=== PATIENT | male | born 1940 | race Two or more races ===

== ENCOUNTER 2024-11-27 04:43 | Emergency (ER) | payer MEDICAID, SELFPAY ==
[2024-11-27] VITALS (12 sets, daily range): BP systolic 116–141; BP diastolic 74–101; PULSE 70–146; RESP 18–38; TEMP 36.3–38.4; O2SAT 92–100; BMI 25.0
--- NOTE | 2024-11-27 05:08 | PD.EDRME ---
Rapid Medical Screening Exam RME Arrival date/time: 11/27/24 04:43 Chief Complaint: Shortness of Breath/Dyspnea Time Seen by Provider: 11/27/24 05:08 Vital signs: Vitals are pending RME Narrative: 84-year-old male with history of high cholesterol,, history of CVA, atrial fibrillation, hypertension, selective treatment, diabetes, presenting from subacute with difficulty breathing for the last 6 to 8 hours. Per respiratory therapist patient was placed by blow-by earlier. Patient currently has a fever by report. Patient is a DNR
[2024-11-27 05:21] LABS: Lactate (Lactic Acid) 2.1 mMol/L (0.4-2.0)
[2024-11-27] MEDS: ACETAMINOPHEN SUPP 650 MG SUPP PR (05:22)
[2024-11-27 05:23] LABS: Basophils % (Auto) 0 % (0-2.5); Eosinophils # (Auto) 0.1 Thou/mm3 (0.0-0.5); Eosinophils % (Auto) 1 % (0-10); Hematocrit 41.9 % (41.0-53.0); Hemoglobin 14.1 g/dL (13.5-16.0); Immature Granulocytes % (Auto) 0 % (0-0); Immature Granulocytes Auto 0.02 Thou/mm3 (0.00-0.00); Lymphocytes # (Auto) 1.3 Thou/mm3 (1.0-4.8); Lymphocytes % (Auto) 12 % (10-50); Mean Corpuscular HGB Conc 33.7 g/dl (31.0-37.0); Mean Corpuscular Hemoglobin 29.7 pg (25.0-35.0); Mean Corpuscular Volume 88 fL (80-100); Monocytes # (Auto) 0.7 Thou/mm3 (0.0-0.8); Monocytes % (Auto) 7 % (0-12); Neutrophils # (Auto) 8.9 Thou/mm3 (1.8-7.7); Neutrophils % (Auto) 81 % (37-80); Nucleated Red Blood Cell % 0 /100 WBC (0); Platelet Count 155 Thou/mm3 (140-440); RDW Standard Deviation 54.8 fL (35.1-43.9); Red Blood Count 4.74 Miln/mm3 (4.50-5.90); White Blood Count 11.1 Thou/mm3 (3.8-10.6)
[2024-11-27 05:37] LABS: INR 1.1 (0.9-1.3); Partial Thromboplastin Time 29.7 Seconds (22.0-36.0); Prothrombin Time 11.9 Seconds (9.0-12.2)
[2024-11-27 05:40] LABS: B-Type Natriuretic Peptide 157 pg/mL (0-100)
[2024-11-27 05:48] LABS: Alanine Aminotransferase 19 U/L (10-49); Albumin, Serum 4.1 gm/dL (3.4-4.8); Albumin/Globulin Ratio 1.1 (1.2-2.2); Alkaline Phosphatase 143 U/L (46-116); Anion Gap 7 (7-16); Aspartate Amino Transferase 25 U/L (0-34); BUN/Creatinine Ratio 22 Ratio (12-20); Bilirubin,Total 1.7 mg/dL (0.3-1.2); Blood Urea Nitrogen 13 mg/dL (9-23); Carbon Dioxide 27.3 mMol/L (20.0-31.0); Chloride 100 mMol/L (98-107); Creatinine (Component) 0.6 mg/dL (0.6-1.3); Estimated Creatinine Clearance 85.7 mL/min (>60); Globulin 3.9 gm/dL (2.3-3.5); Glucose 164 mg/dL (74-106); LDH (Lactate Dehydrogenase) 233 U/L (120-246); Lipase 31 U/L (12-53); Magnesium 1.8 mg/dL (1.6-2.6); Osmolality,Calculated 272 (275-295); Phosphorous 3.8 mg/dL (2.4-5.1); Potassium 4.6 mMol/L (3.4-5.1); Procalcitonin 0.05 ng/ml (0.0-0.49); Sodium 134 mMol/L (136-145); Troponin I < 0.020 ng/mL (0.0-0.045); eGFR > 60 See Note
[2024-11-27] MEDS: PIPER/TAZO 3.375 GM PREMIX 3.375 GM/50 ML BAG IV (05:52)
[2024-11-27] MEDS: Vancomycin Inj 1,000 MG in SODIUM CHLORIDE 0.9% 250 ML 250 ML 150 MG IV (06:06)
[2024-11-27 08:16] LABS: Collection Type, Urine Clean Catch
[2024-11-27 08:19] LABS: Reflex Lactate? Y
[2024-11-27 08:28] LABS: Bilirubin,Urine Negative (Negative); Blood,Urine 1+ (Negative); Clarity,Urine Clear (Clear/Hazy); Color,Urine Lt-Yellow (Lt Yel-Yel); Glucose, Urine Negative (Negative); Ketones,Urine Negative (Negative); Leukocyte Esterase,Urine Negative (Negative); Nitrite,Urine Negative (Negative); PH,Urine 6.5 (5.0-7.0); Protein,Urine Negative (Neg - Trace); RBC,Urine 3 /hpf (0-3); Specific Gravity,Urine 1.012 (1.001-1.035); Squamous Epithelial Cell,Urine 1 /hpf (0-5); Urobilinogen,Urine Negative mg/dL (0.0-1.0); WBC,Urine 2 /hpf (0-5)
[2024-11-27 08:43] LABS: Lactic Acid, 3 HR 2.8 mMol/L (0.4-2.0)
--- NOTE | 2024-11-27 08:58 | PD.EDSOB ---
ED SOB =RME/HPI General Chief Complaint: Shortness of Breath/Dyspnea Stated Complaint: SOB Time Seen by Provider: 11/27/24 05:08 Arrival date/time: 11/27/24 04:43 RME / HPI RME / HPI Narrative: 84-year-old male with history of high cholesterol,, history of CVA, atrial fibrillation, hypertension, selective treatment, diabetes, presenting from subacute with difficulty breathing for the last 6 to 8 hours. Per respiratory therapist patient was placed by blow-by earlier. Patient currently has a fever by report. Patient is a DNR DR. CORUTNEY MAIN ED EVALUATION: 84 year old male with past medical history significant for atrial fibrillation, tracheostomy in place, CVA, persistent vegetative state, hypertension, hypercholesterolemia, diabetes presents to the Emergency Department coming from out subacute unit for shortness of breath Patient has been given a few breathing treatments with little relief. Initially no the blow by and now on the ventilator. Code Status: DNR, selective treatment Related Data Home Medications ?Medication ?Instructions ?Recorded ?Confirmed acetaminophen 325 mg capsule 650 mg feeding tube Q6HR PRN Pain 08/11/20 08/12/20 (Tylenol) atorvastatin 40 mg tablet (Lipitor) 40 mg feeding tube QDAY 08/11/20 08/12/20 bisacodyl 10 mg rectal suppository 10 mg MS Q72H PRN Constipation 08/11/20 08/12/20 (Dulcolax (bisacodyl)) carvedilol 3.125 mg tablet (Coreg) 3.125 mg feeding tube BID 08/11/20 08/12/20 cyanocobalamin (vitamin B-12) 1,000 mcg feeding tube QDAY 08/11/20 08/12/20 1,000 mcg tablet (Vitamin B-12) dexlansoprazole 30 mg 30 mg feeding tube QDAY 08/11/20 08/12/20 capsule,biphase delayed release (Dexilant) insulin glargine 100 unit/mL 30 unit subcut HS 08/11/20 08/12/20 subcutaneous solution (Lantus U-100 Insulin) polyethylene glycol 3350 17 gram 17 g feeding tube QDAY PRN 08/11/20 08/12/20 oral powder packet (Miralax) Constipation magnesium hydroxide 400 mg/5 mL 30 ml feeding tube Q48H PRN 08/12/20 08/12/20 oral suspension (Milk of Magnesia) Constipation multivitamin with minerals 1 tab PO QDAY 08/12/20 08/12/20 sodium phosphates 19 gram-7 118 ml MS Q72H PRN constipation 08/12/20 08/12/20 gram/118 mL enema (Fleet Enema) Previous Rx's ?Medication ?Instructions ?Recorded levofloxacin 750 mg tablet 750 mg PO Q24H #10 tabs 08/13/20 levofloxacin 750 mg tablet 750 mg PO Q24H #7 tabs 11/27/24 Allergies Allergy/AdvReac Type Severity Reaction Status Date / Time No Known Allergies Allergy Verified 01/02/19 14:22 Review of Systems Review of Systems ROS Unobtainable: unobtainable due to medical condition Past Medical History Past Medical History NEUROLOGIC: Positive Cerebrovascular Accident CARDIAC: Positive Cardiac Disorders, Atrial Fibrillation and Hypercholesterolemia; Negative Congestive Heart Failure RESPIRATORY: Positive Pneumonia; Negative Chronic Obstructive Pulmonary Disease (COPD) GENITOURINARY: Negative Renal Disease ENDOCRINE: Positive Endocrine Disorders and Diabetes Mellitus Type 2; Negative Diabetes Mellitus Type 1 OTHER HISTORY: Negative Autoimmune Disease Family History FAMILY HISTORY: Negative Family Psychiatric Problems, Family Respiratory Disorders, Family Gastrointestinal Problems, Family Cancer, Family Surgery or Family Anesthesia Reaction Surgical History SURGICAL: Positive Abdominal Surgery, Tracheostomy and Gastrostomy Social History SMOKING STATUS: Never smoker SECOND HAND EXPOSURE: No SUBSTANCE USE: does not use ALCOHOL: Never ED Exam Narrative Physical exam: GENERAL APPEARANCE: at baseline, opens eyes to stimulus, mild diaphoresis, chronically nonverbal VITALS: All vitals were reviewed and the pulse ox is 100% on mechanical ventilation. HEENT: Normocephalic, atraumatic; pupils equal, round, reactive to light; EOMI; mucous membranes pink, moist; oropharynx clear NECK: tacheostomy LUNGS: there is mild wheezing in the left base, crackles in the right upper lobe HEART: Regular rate, regular rhythm; normal S1, S2; no murmurs ABDOMEN: non distended; normal BS; soft, no tenderness, no guarding, no rebound; no masses, no organomegaly, no hernia BACK: no deformities EXTREMITIES: Spastic contractures of extremities NEUROLOGIC: at baseline PSYCHIATRIC: at baseline SKIN: warm, dry, normal color; no rashes Course Quality Measures none Orders Category Date Time Status Mending Carrier STAT Care 11/27/24 05:00 Completed Continuous Pulse Oximetry STAT Care 11/27/24 05:00 Completed EKG (ED ONLY) *Do not use* NOW Care 11/27/24 05:00 Completed In and Out Catheter X1PRN Care 11/27/24 05:00 Completed Insert IV NOW Care 11/27/24 05:00 Completed NPO STAT Care 11/27/24 05:00 Completed Strict Intake and Output Routine Care 11/27/24 05:00 Ordered EKG (ED Only) Stat Exams 11/27/24 05:00 Ordered B-Type Natriuretic Peptide Stat Lab 11/27/24 05:15 Completed Blood Culture (Lab) Stat Lab 11/27/24 05:25 Received CBC Stat Lab 11/27/24 05:15 Completed Comprehensive Metabolic Panel Stat Lab 11/27/24 05:15 Completed LDH (Lactate Dehydrogenase) Stat Lab 11/27/24 05:15 Completed Lactate (Lactic Acid) Stat Lab 11/27/24 05:15 Completed Lactic Acid, 3 HR Stat Lab 11/27/24 08:40 Completed Lipase Stat Lab 11/27/24 05:15 Completed Magnesium Stat Lab 11/27/24 05:15 Completed Partial Thromboplastin Time Stat Lab 11/27/24 05:15 Completed Phosphorous Stat Lab 11/27/24 05:15 Completed Procalcitonin Stat Lab 11/27/24 05:15 Completed Prothrombin Time with INR Stat Lab 11/27/24 05:15 Completed Troponin I Stat Lab 11/27/24 05:15 Completed Urinalysis Stat Lab 11/27/24 07:50 Completed Urine Culture Stat Lab 11/27/24 07:50 Received Acetaminophen Supp [Tylenol Supp] Med 11/27/24 05:01 Discontinued 650 mg MS X1 ONE Piper/Tazo 3.375 gm Premix [Zosyn] Med 11/27/24 05:11 Discontinued 3.375 gm in 50 ml IV X1 Sodium Chloride 0.9% 1000 ml [Ns] 1,000 ml Med 11/27/24 10:15 Discontinued IV 999 mls/hr Sodium Chloride 0.9% 1000 ml [Ns] 2,177 ml Med 11/27/24 05:27 Discontinued IV 2,177 mls/hr Vancomycin Inj 1,000 mg Med 11/27/24 05:40 Discontinued Sodium Chloride 0.9% 250 ml [Ns] 250 ml IV X1 Mechanical [Volume Ventilator] Stat RT 11/27/24 Active Oxygen Delivery NOW RT 11/27/24 05:00 Completed Vital Signs Vital signs: Vital Signs Pulse Rate 133 H 11/27/24 04:53 Pulse Oximetry (%) 99 11/27/24 04:53 Fraction of Inspired Oxygen 40 11/27/24 04:53 Shortness of Breath / Dyspnea MDM Narrative MDM Narrative:: I, Teetee Tyler, am scribing for and in the presence of Dr. Courtney. Patient data External records reviewed:: [facility] previous records (Reviewed last pulmonology subacute note by Dr. Ramires, dated 11/20/24. ) Clinical information provided by:: other (specify) (subacute nurse) Social determinants that could affect healthcare access:: housing (subacute) Patient has the following chronic illnesses:: Atrial fibrillation, tracheostomy in place, CVA, persistent vegetative state, hypertension, hypercholesterolemia, diabetes Code Status: DNR, selective treatment How is presenting disease/condition affected by chronic disease/condition?: exacerbated by Evaluation data The following diagnostics were reviewed and interpreted by me:: lab results, radiology exam(s) and EKG tracing(s) (EKG#1: EKG at 0448 hours. Interpreted by me: atrial fibrillation, rate 121, Q waves in lead 3 and V1, no acute ischemic changes) Lab and/or radiology exams considered but not ordered:: none Interpretation Summary: Chest x-ray: my interpretation shows: right upper lobe infiltrates Full report: Procedure(s): XR chest 1V portable Accession Number(s): [id number] cc: Shahbaz Grnat MD; NO PRIMARY/FAMILY,PHYSICIAN; Channing Simeon MD~ Examination: AP chest single view Technique one AP portable semiupright chest single view Exam date and time: November 27, 2024 0240 hours Comparison September 18, 2024 INDICATIONS: Bloody breathing this week. FINDINGS: Interval significant left base pneumonia Mild enlargement cardiac contour Mild vascular congestion. Tracheostomy tube tip 6.7 cm above carlo IMPRESSION: Interval significant left base pneumonia Dictated By: Shahbaz Grant MD Medications / Prescriptions Medications or Prescriptions considered but not ordered:: none Medication administrations:: Medication Administration History Discontinued Medications Acetaminophen (Acetaminophen Supp 650 Mg Supp) 650 mg MS X1 ONE Stop: 11/27/24 05:02 Last Admin: 11/27/24 05:22 Dose: 650 mg Documented By: EF Piperacillin/Tazobactam/Dextrose (Zosyn) 3.375 gm in 50 mls @ 100 mls/hr IV X1 ONE Stop: 11/27/24 05:40 Last Infusion: 11/27/24 06:22 Dose: Infused Documented By: Admin: 11/27/24 05:52 Dose: 100 mls/hr Documented By: EF Vancomycin HCl 1,000 mg/ (Sodium Chloride) 250 mls @ 150 mls/hr IV X1 ONE Stop: 11/27/24 07:19 Last Infusion: 11/27/24 07:50 Dose: Infused Documented By: Admin: 11/27/24 06:06 Dose: 150 mls/hr Documented By: EF Sodium Chloride (Ns) 2,177 mls @ 2,177 mls/hr 30 ml/kg infuse over 60 min (2177 ml) IV .Q1H ONE; Protocol Stop: 11/27/24 06:26 Last Infusion: 11/27/24 06:53 Dose: Infused Documented By: Admin: 11/27/24 05:53 Dose: 2,177 mls/hr Documented By: EF Sodium Chloride (Ns) 1,000 mls @ 999 mls/hr IV .Q1H1M ONE Stop: 11/27/24 11:15 Last Admin: 11/27/24 10:25 Dose: Not Given Documented By: GM Non-Admin Reason: Discontinued see above Consultations Consultation(s) initiated? (list below): No Diagnosis Shortness of Breath Differential Diagnosis: acute exacerbation of chronic obstructive airways disease, community acquired pneumonia and asthma with exacerbation Most likely diagnosis given after review of the tests above:: Pneumonia Sepsis Admission Indicated Admission indicated?: not indicated Admission Request Was there a request for admission?: No Disposition Plan Disposition Plan: Discharge (subacute) Discharge Attestation Discharge Attestation: The patient and all family members were given an opportunity to ask questions and understood the discharge instructions. Discharge instructions specifically effects, indications for sooner follow up or return to the emergency department, and the expected course of current diagnosis. Patient condition: Stable Discharge Plan Plan Patient Disposition: Xfer Rfid Manager Acute Prescriptions/Referrals Prescriptions/Med Rec: New levofloxacin 750 mg tablet 750 mg PO Q24H Qty: 7 0RF No Action carvedilol [Coreg] 3.125 mg Tablet 3.125 mg feeding tube BID atorvastatin [Lipitor] 40 mg Tablet 40 mg feeding tube QDAY Lantus U-100 Insulin 100 unit/mL Solution 30 unit SUBCUT HS Rx Instructions: 2200 cyanocobalamin (vitamin B-12) [Vitamin B-12] 1,000 mcg Tablet 1,000 mcg feeding tube QDAY bisacodyl [Dulcolax (bisacodyl)] 10 mg Suppository 10 mg MS Q72H PRN (Reason: Constipation) Dexilant 30 mg Capsule,Biphase Delayed Releas 30 mg feeding tube QDAY polyethylene glycol 3350 [Miralax] 17 gram Powder In Packet 17 g feeding tube QDAY PRN (Reason: Constipation) acetaminophen [Tylenol] 325 mg Capsule 650 mg feeding tube Q6HR PRN (Reason: Pain) magnesium hydroxide [Milk of Magnesia] 400 mg/5 mL Suspension 30 ml feeding tube Q48H PRN (Reason: Constipation) Fleet Enema 19-7 gram/118 mL Enema 118 ml MS Q72H PRN (Reason: constipation ) multivitamin with minerals Tablet 1 tab PO QDAY levofloxacin 750 mg tablet 750 mg PO Q24H Qty: 10 0RF Referrals: No Primary/Family,Physician [Primary Care Provider] - In 1 week Problem List Clinical Impression: Pneumonia, Sepsis Patient/Caregiver Discharge Instructions Education Materials: Sepsis, ED Pneumonia (Adult) Print Language: Armenian Stand Alone Forms: Melanie Award Info., Patient Portal Info Letter
== END 2024-11-27 11:11 ==
PROVIDERS: Emergency Medicine; Emergency Provider Emergency Medicine
DX: A41.9 Sepsis, unspecified organism (principal); J18.9 Pneumonia, unspecified organism; Z66 Do not resuscitate; Z93.0 Tracheostomy status; I10 Essential (primary) hypertension; E78.00 Pure hypercholesterolemia, unspecified; E11.9 Type 2 diabetes mellitus without complications; Z79.4 Long term (current) use of insulin
CPT/HCPCS: 51701; 36415; 80053; 81001; 83605; 83615; 83690; 83735; 83880; 84100; 84145; 84484; 85025; 85610; 85730; 87040; 87077; 87086; 87186; 96365; 96367; 99284; J2543; J3371; J7030; J7050; A9270

== ENCOUNTER 2024-12-08 10:59 | Inpatient (IN) | payer MEDICAID, SELFPAY ==
[2024-12-08] VITALS (85 sets, daily range): BP systolic 65–197; BP diastolic 46–128; PULSE 67–124; RESP 16–43; TEMP 36.3–37.9; O2SAT 72–100; BMI 24.0
--- NOTE | 2024-12-08 11:06 | EKG_ITS ---
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
--- NOTE | 2024-12-08 11:08 | XR_ITS ---
Exam: Chest 1 view, AP Date and time of exam: 12/08/2024, 11:34 AM Comparison: 11/27/2024, 12/08/2024 Findings: Cardiac silhouette remains enlarged. Chronic interstitial fibrotic changes. Ill-defined opacification left lung base with mild interval worsening since November 27, 2024. Increased opacification medial upper right zone. No pneumothorax. No acute bony abnormality. Impression: Increased left lower zone infiltrate. Increased right upper zone infiltrate.
--- NOTE | 2024-12-08 11:08 | XR_ITS ---
Examination: CT brain head without contrast. 2-D sagittal coronal reconstructions Date and time of exam:51.04 CTDI: vol (mGy):51.4 DLP: (mGycm):1116 Acute loss of consciousness. Technique: Multiple CT axial sections of the brain have been obtained, 5 mm slice thickness. Contrast has not been administered. 2-D sagittal, coronal reconstructions have been obtained Low dose protocols were performed. One or more of the following dose reduction techniques were used; automated exposure control, adjustment of the mA and/or KV according to patient size, use of iterative reconstruction technique. Findings: Marked cortical atrophy and associated ventricular and extra-axial enlargement. Diffuse right-sided encephalomalacia with progression when compared to prior exam.. Diffuse left-sided periventricular white matter changes consistent with small vessel disease stable when compared to prior exam. No acute hemorrhage. No mass, mass effect or midline shift. Basilar cisterns are patent. Near-complete opacification left maxillary sinus. Negative for acute hemorrhage, mass effect or midline shift. Impression: No acute hemorrhage, mass, mass effect or midline shift. Changes of right-sided infarct. Diffuse cortical atrophy. With mild
--- NOTE | 2024-12-08 11:10 | PD.EDSOB ---
ED SOB =RME/HPI General Chief Complaint: Shortness of Breath/Dyspnea Stated Complaint: SOB Time Seen by Provider: 12/08/24 11:08 Arrival date/time: 12/08/24 10:59 RME / HPI RME / HPI Narrative: 84 year old male with history of atrial fibrillation, tracheostomy, CVA, persistent vegetative state, nonverbal, hypertension, hypercholesterolemia, diabetes presents to the ED brought from the subacute unit within this facility for shortness of breath today. Per subacute staff, patient appeared to have increased work of breathing. Per RT at bedside, the vent settings were adjusted and is saturating 99%. Subacute RN reports they have made patients PCP Dr. Ramires who advised he come for further evaluation. Related Data Home Medications ?Medication ?Instructions ?Recorded ?Confirmed acetaminophen 325 mg capsule 650 mg feeding tube Q6HR PRN Pain 08/11/20 08/12/20 (Tylenol) atorvastatin 40 mg tablet (Lipitor) 40 mg feeding tube QDAY 08/11/20 08/12/20 bisacodyl 10 mg rectal suppository 10 mg TX Q72H PRN Constipation 08/11/20 08/12/20 (Dulcolax (bisacodyl)) carvedilol 3.125 mg tablet (Coreg) 3.125 mg feeding tube BID 08/11/20 08/12/20 cyanocobalamin (vitamin B-12) 1,000 mcg feeding tube QDAY 08/11/20 08/12/20 1,000 mcg tablet (Vitamin B-12) dexlansoprazole 30 mg 30 mg feeding tube QDAY 08/11/20 08/12/20 capsule,biphase delayed release (Dexilant) insulin glargine 100 unit/mL 30 unit subcut HS 08/11/20 08/12/20 subcutaneous solution (Lantus U-100 Insulin) polyethylene glycol 3350 17 gram 17 g feeding tube QDAY PRN 08/11/20 08/12/20 oral powder packet (Miralax) Constipation magnesium hydroxide 400 mg/5 mL 30 ml feeding tube Q48H PRN 08/12/20 08/12/20 oral suspension (Milk of Magnesia) Constipation multivitamin with minerals 1 tab PO QDAY 08/12/20 08/12/20 sodium phosphates 19 gram-7 118 ml TX Q72H PRN constipation 08/12/20 08/12/20 gram/118 mL enema (Fleet Enema) Previous Rx's ?Medication ?Instructions ?Recorded levofloxacin 750 mg tablet 750 mg PO Q24H #10 tabs 08/13/20 levofloxacin 750 mg tablet 750 mg PO Q24H #7 tabs 11/27/24 Allergies Allergy/AdvReac Type Severity Reaction Status Date / Time No Known Allergies Allergy Verified 01/02/19 14:22 Review of Systems Review of Systems ROS Unobtainable: unobtainable due to mental status and unobtainable due to medical condition Past Medical History Past Medical History NEUROLOGIC: Positive Cerebrovascular Accident CARDIAC: Positive Cardiac Disorders, Atrial Fibrillation and Hypercholesterolemia RESPIRATORY: Positive Pneumonia ENDOCRINE: Positive Endocrine Disorders and Diabetes Mellitus Type 2 Family History FAMILY HISTORY: Negative Family Psychiatric Problems, Family Respiratory Disorders, Family Gastrointestinal Problems, Family Cancer, Family Surgery or Family Anesthesia Reaction Surgical History SURGICAL: Positive Abdominal Surgery, Tracheostomy and Gastrostomy Social History SMOKING STATUS: Unknown if ever smoked SECOND HAND EXPOSURE: No SUBSTANCE USE: does not use ED Exam Narrative Physical exam: Physical Exam: General: The vital signs were reviewed. The patient was initially seen and subacute and brought over to the ER and placed in room 1 patient is non-toxic, patient is in obvious respiratory distress with O2 sats are low he is therefore hypoxic. Head & Scalp: Normocephalic, atraumatic. Face: Appears his usual normal and is without lesions, deformity. Ears: Left external pinna appears normal. Right external pinna appears normal. Eyes: The sclera is anicteric. No obvious photophobia. Puffy facies. The Left and Right Orbit/Lid/Conjunctiva appears normal without swelling, discoloration or injection. Nose: The nose is without deformity, discharge or tenderness; Throat: Appears normal. The mucous membranes are pink and moist without exudates, redness or mass seen. The tongue appears normal. Neck: Trach in place. The neck is supple and no apparent mass or adenopathy. Chest: Patient is tachypneic with labored breathing rate around 32 to 34 breath sounds are heard but distant. Cardiovascular: Regular rate and rhythm; No murmurs, rubs, or gallops; Gastrointestinal: The abdomen appears normal. No obvious hernias or mass. The abdomen is soft and benign, non-distended, with no pain, no guarding and no rebound tenderness. Bowel sounds are present and normal sounding. No CVA tenderness. Genitourinary: Back/Spine: Warm normal inspection Extremities/Musculoskeletal/lymphatic: Atrophic extremities no obvious injury Skin: The skin is warm, dry and intact. No rashes. No petechia. No purpura. No abnormal bruising. The color is appropriate with no cyanosis. Mental status/Psychiatric: Mental status is baseline for this patient. Neurological: The patient is nonverbal noninteractive due to previous stroke. Unable to respond to questions or follow directions. This is his baseline. Course Quality Measures Current suspected stage: sepsis Possible source: pulmonary Blood cultures ordered: completed in ED Antibiotic ordered: Yes Pertinent labs: 12/08/24 12/08/24 11:55 15:13 Lactic Acid 2.7 H mMol/L 1.6 mMol/L (0.4-2.0) (0.4-2.0) Procalcitonin 0.09 ng/ml (0.0-0.49) sepsis Orders Category Date Time Status Admit to Inpatient Status Routine Admission 12/08/24 14:16 Active Patient Condition Routine Admission 12/08/24 14:16 Ordered Activity as Tolerated Routine Care 12/08/24 14:18 Ordered Aspiration precautions ONCE Care 12/08/24 15:36 Active Bedside Blood Glucose NOW Care 12/08/24 11:08 Active Bedside COVID-19 Antigen Test NOW Care 12/08/24 16:35 Active Continuous Pulse Oximetry NOW Care 12/08/24 14:16 Completed EKG (ED ONLY) *Do not use* NOW Care 12/08/24 11:06 Completed Head of Bed Elevation NOW Care 12/08/24 14:29 Active In and Out Catheter X1 Care 12/08/24 12:40 Completed Insert IV NOW Care 12/08/24 12:28 Active Miscellaneous Nursing Order NOW Care 12/08/24 15:27 Active NPO NOW Care 12/08/24 14:29 Active Neuro Check Q4H START 00 Care 12/08/24 14:18 Active Notify provider NEEDED Care 12/08/24 14:16 Active Obtain weight daily Care 12/08/24 14:18 Active Seizure precautions NEEDED Care 12/08/24 14:18 Active Diet NPO (NOW) Diet 12/08/24 14:29 Active CA echo doppler complete Stat Exams 12/08/24 15:[address] head/brain wo con Stat Exams 12/08/24 11:08 Completed EKG (ED Only) Stat Exams 12/08/24 11:06 Draft XR chest 1V portable Stat Exams 12/08/24 11:08 Completed Alcohol, Blood Medical Stat Lab 12/08/24 11:55 Completed Ammonia Stat Lab 12/08/24 11:58 Completed B-Type Natriuretic Peptide Stat Lab 12/08/24 11:55 Completed Blood Culture (Lab) Stat Lab 12/08/24 11:58 Received CBC AM DRAW Lab 12/09/24 05:00 Ordered CBC AM DRAW Lab 12/10/24 05:00 Ordered CBC AM DRAW Lab 12/11/24 05:00 Ordered CBC Stat Lab 12/08/24 11:55 Completed Comprehensive Metabolic Panel AM DRAW Lab 12/09/24 05:00 Ordered Comprehensive Metabolic Panel AM DRAW Lab 12/10/24 05:00 Ordered Comprehensive Metabolic Panel AM DRAW Lab 12/11/24 05:00 Ordered Comprehensive Metabolic Panel Stat Lab 12/08/24 11:55 Completed Drug Screen,Urine Stat Lab 12/08/24 12:42 Completed Lactate (Lactic Acid) Stat Lab 12/08/24 11:55 Completed Lactic Acid, 3 HR Stat Lab 12/08/24 15:13 Completed Magnesium AM DRAW Lab 12/09/24 05:00 Ordered Magnesium AM DRAW Lab 12/10/24 05:00 Ordered Magnesium AM DRAW Lab 12/11/24 05:00 Ordered Phosphorous AM DRAW Lab 12/09/24 05:00 Ordered Phosphorous AM DRAW Lab 12/10/24 05:00 Ordered Phosphorous AM DRAW Lab 12/11/24 05:00 Ordered Procalcitonin Stat Lab 12/08/24 11:55 Completed Prothrombin Time with INR Stat Lab 12/08/24 11:55 Completed Sputum Culture and Gram Stain Stat Lab 12/08/24 16:47 Received Troponin I Q6H Lab 12/08/24 18:00 Ordered Troponin I Q6H Lab 12/09/24 00:00 Ordered Troponin I Stat Lab 12/08/24 11:55 Completed Type and Screen Stat Lab 12/08/24 11:55 Completed Urinalysis Stat Lab 12/08/24 12:42 Completed Urinalysis, C/S if Indicated Stat Lab 12/08/24 12:42 Completed Urine Culture Stat Lab 12/08/24 12:42 Received Venous Blood Gas Stat Lab 12/08/24 11:55 Completed Acetaminophen Tab [Tylenol Tab] Med 12/08/24 14:16 Active 650 mg PO Q6H PRN Albuterol/Ipratr Rt Emma [Duoneb Rt Emma] Med 12/08/24 15:00 Active 3 ml INH Q4HRRT Azithromycin Inj [Zithromax Inj] 500 mg Med 12/09/24 14:00 Pending Sodium Chloride 0.9% 250 ml [Ns] 250 ml IV QDAY@1400 Azithromycin Inj [Zithromax Inj] 500 mg Med 12/08/24 14:30 Discontinued Sodium Chloride 0.9% 250 ml [Ns] 250 ml IV X1 Cefepime Inj [Maxipime Inj] 2 gm Med 12/08/24 22:00 Active SODIUM CHLORIDE 0.9% (Popper) [Ns 0.9% (P)] 50 ml IV Q8HR Heparin Inj Med 12/08/24 22:00 Active 5,000 unit SC Q8HR Metoclopramide Inj [Reglan Inj] Med 12/08/24 14:16 Active 10 mg IVP Q6H PRN Piper/Tazo 3.375 gm Premix [Zosyn] Med 12/08/24 12:29 Discontinued 3.375 gm in 50 ml IV X1 Sodium Chloride 0.9% 1000 ml [Ns] 1,000 ml Med 12/08/24 14:30 Discontinued IV 75 mls/hr Sodium Chloride 0.9% 1000 ml [Ns] 2,000 ml Med 12/08/24 11:08 Discontinued IV 150 mls/hr Sodium Chloride 0.9% 500 ml [Ns] 500 ml Med 12/08/24 16:15 Discontinued IV 999 mls/hr Sodium Chloride Rt Emma 10% [NS Rt Emma 10%] Med 12/08/24 15:51 Discontinued 5 ml INH X1 ONE Vancomycin Pharmacy to Dose Med 12/09/24 09:00 Active 1 each IV QDAY PRN Vancomycin/Ns 1 gm Ivpb 200 ml Med 12/08/24 12:45 Discontinued IV X1 Vancomycin/Water 1250 mg Ivpb 250 ml Med 12/08/24 22:00 Pending IV Q12H cefTRIAXone [Rocephin] 2 gm Med 12/08/24 14:30 Discontinued SODIUM CHLORIDE 0.9% (Popper) [Ns 0.9% (P)] 50 ml IV X1 cefTRIAXone/D5w 2gm [Rocephin/d5w 2gm] Med 12/09/24 14:00 Discontinued 2 gm in 50 ml IV QDAY@1400 Code Status Routine Oth 12/08/24 15:48 Ordered Sputum Induction PRN RT 12/08/24 16:00 Ordered Vital Signs Vital signs: Vital Signs Temperature 97.3 F 12/08/24 10:59 Pulse Rate 108 H 12/08/24 10:59 Respiratory Rate 32 H 12/08/24 10:59 Blood Pressure 113/63 12/08/24 10:59 Pulse Oximetry (%) 100 12/08/24 10:59 Oxygen Delivery Method T-Piece 12/08/24 10:59 Fraction of Inspired Oxygen 40 12/08/24 10:59 Shortness of Breath / Dyspnea MDM Narrative MDM Narrative:: We were called emergently over to subacute as this patient was in respiratory distress which started earlier this morning and getting worse. RT was present and they had suctioned multiple times with no real significant improvement. Because of this patient came to the ER for further workup. Chest x-ray reveals probably some right upper lobe infiltrates tracheostomy in place generalized vascular redistribution no consolidating pneumonia was seen as interpreted by myself. White count is 16.8 hemoglobin is 12.7 platelet count is 212,000. PT/INR within normal limits pH is low at 7.28 pCO2 is elevated at 58. Electrolytes are basically within normal limits. BUN 14 creatinine is 0.6 troponin is elevated 0.051. BNP slightly elevated at 347. Urinalysis came back essentially negative with 12 red cells and 2 white cells drug screen was negative. Patient had significant respiratory distress but 4 hours later in the ER his respiratory rate calm down. Because of he had multiple SIRS criteria a septic alert was called. He was given Vanco and Zosyn early. And clinically he was much improved at around 1530 hrs. Family was called I spoke with Colt earlier and the came spoke with her later. At that time the patient's respiratory distress was much improved his hypoxemia was improved making me wonder if he had an aspiration event. Hospitalist was called they came down and they will admit the patient. That the patient is trached has a G-tube he was suctioned multiple times with minimal content. Because of respiratory distress and debilitation and trach dependent but this was a critical care patient. Patient data External records reviewed:: [facility] previous records (I reviewed ED visit on 11/27/2024) Clinical information provided by:: other (specify) (RN) Social determinants that could affect healthcare access:: housing (subacute resident ) Patient has the following chronic illnesses:: atrial fibrillation, tracheostomy in place, CVA, persistent vegetative state, hypertension, hypercholesterolemia, diabetes How is presenting disease/condition affected by chronic disease/condition?: exacerbated by Evaluation data The following diagnostics were reviewed and interpreted by me:: lab results, radiology exam(s) and EKG tracing(s) (Atrial flutter with RVR, rate 100, no STEMI ) Lab and/or radiology exams considered but not ordered:: None Interpretation Summary: Ordering Physician: Gigi Beltran MD Date of Service: 12/08/24 Procedure(s): CT head/brain wo con Accession Number(s): [id number] cc: Roney Nair MD; Gigi Beltran MD; NO PRIMARY/FAMILY,PHYSICIAN~ Examination: CT brain head without contrast. 2-D sagittal coronal reconstructions Date and time of exam:51.04 CTDI: vol (mGy):51.4 DLP: (mGycm):1116 Acute loss of consciousness. Technique: Multiple CT axial sections of the brain have been obtained, 5 mm slice thickness. Contrast has not been administered. 2-D sagittal, coronal reconstructions have been obtained Low dose protocols were performed. One or more of the following dose reduction techniques were used; automated exposure control, adjustment of the mA and/or KV according to patient size, use of iterative reconstruction technique. Findings: Marked cortical atrophy and associated ventricular and extra-axial enlargement. Diffuse right-sided encephalomalacia with progression when compared to prior exam.. Diffuse left-sided periventricular white matter changes consistent with small vessel disease stable when compared to prior exam. No acute hemorrhage. No mass, mass effect or midline shift. Basilar cisterns are patent. Near-complete opacification left maxillary sinus. Negative for acute hemorrhage, mass effect or midline shift. Impression: No acute hemorrhage, mass, mass effect or midline shift. Changes of right-sided infarct. Diffuse cortical atrophy. With mild Dictated By: Roney Nair MD Signed By: <Electronically signed by Roney Nair MD in [place]> 12/08/24 1404 Ordering Physician: Gigi Beltran MD Date of Service: 12/08/24 Procedure(s): XR chest 1V portable Accession Number(s): [id number] cc: Roney Nair MD; Mike Madrid MD; Gigi Beltran MD~ Exam: Chest 1 view, AP Date and time of exam: 12/08/2024, 10:16 AM Comparison: 10/15/2023 INDICATION: Cough COMPARISON: 10/15/2023 Findings: Heart size and pulmonary vascular structures within normal limits. Ill-defined areas of opacification medial right lower zone. Remaining lung zones are clear. No pneumothorax. No pleural effusion. No acute bony abnormality. Impression: Right lower zone infiltrate. Dictated By: Roney Nair MD Signed By: <Electronically signed by Roney Nair MD in [place]> 12/08/24 1105 Medications / Prescriptions Medications or Prescriptions considered but not ordered:: None Medication administrations:: Medication Administration History Acetaminophen (Acetaminophen 325 Mg Tablet) 650 mg PO Q6H PRN PRN Reason: Fever >101.5 Stop: 01/07/25 14:15 Albuterol/Ipratropium (Albuterol/Ipratropium (Duoneb) Rt Emma 3 Ml Nebu) 3 ml INH Q4HRRT KURT Stop: 01/07/25 14:59 Last Admin: 12/08/24 15:07 Dose: 3 ml Documented By: LEONEL Heparin Sodium (Porcine) (Heparin Sod Inj 5000 Unit/Ml Vial) 5,000 unit SC Q8HR KURT Stop: 12/22/24 21:59 Azithromycin 500 mg/ Sodium (Chloride) 250 mls @ 250 mls/hr IV QDAY@1400 [facility] Stop: 12/16/24 13:59 Vancomycin HCl (Vancomycin/Water 1250 Mg Ivpb) 250 mls @ 120 mls/hr IV Q12H KURT Stop: 12/15/24 21:59 Cefepime HCl 2 gm/ Sodium (Chloride) 50 mls @ 100 mls/hr IV Q8HR KURT Stop: 12/15/24 21:59 Metoclopramide HCl (Metoclopramide Inj 5 Mg/Ml Vial 2 Ml) 10 mg IVP Q6H PRN; Protocol PRN Reason: NAUSEA OR VOMITING Stop: 01/07/25 14:15 Pharmacy Consult (Vancomycin Pharmacy To Dose 1 Each Each) 1 each IV QDAY PRN PRN Reason: PROTOCOL Stop: 01/08/25 08:59 Discontinued Medications Sodium Chloride (Ns) 2,000 mls @ 150 mls/hr IV .[id number] ONE Stop: 12/09/24 00:27 Last Admin: 12/08/24 12:33 Dose: 150 mls/hr Documented By: LEELA Piperacillin/Tazobactam/Dextrose (Zosyn) 3.375 gm in 50 mls @ 100 mls/hr IV X1 ONE Stop: 12/08/24 12:58 Last Infusion: 12/08/24 14:45 Dose: Infused Documented By: Admin: 12/08/24 14:19 Dose: 100 mls/hr Documented By: LEELA Vancomycin/Sodium Chloride (Vancomycin/Ns 1 Gm Ivpb) 200 mls @ 120 mls/hr IV X1 ONE Stop: 12/08/24 14:24 Last Infusion: 12/08/24 16:33 Dose: Infused Documented By: Admin: 12/08/24 14:45 Dose: 120 mls/hr Documented By: LEELA Sodium Chloride (Ns) 1,000 mls @ 75 mls/hr IV .[id number] KURT Stop: 01/07/25 14:29 Ceftriaxone Sodium/Dextrose (Rocephin/D5w 2gm) 2 gm in 50 mls @ 100 mls/hr IV QDAY@1400 KURT Stop: 12/16/24 13:59 Azithromycin 500 mg/ Sodium (Chloride) 250 mls @ 250 mls/hr IV X1 ONE Stop: 12/08/24 15:29 Ceftriaxone Sodium 2 gm/ (Sodium Chloride) 50 mls @ 100 mls/hr IV X1 ONE Stop: 12/08/24 14:59 Last Admin: 12/08/24 16:30 Dose: 100 mls/hr Documented By: LEELA Sodium Chloride (Ns) 500 mls @ 999 mls/hr IV .Q31M ONE Stop: 12/08/24 16:45 Last Admin: 12/08/24 16:25 Dose: 999 mls/hr Documented By: LEELA Sodium Chloride (Sodium Chloride Rt 10% 15 Ml Nebu) 5 ml INH X1 ONE Stop: 12/08/24 15:52 Last Admin: 12/08/24 16:37 Dose: 5 ml Documented By: LEONEL See above Consultations Consultation(s) initiated? (list below): Yes Consultation #1 (Physician, Specialty, Details): I spoke with hospitalist Dr. Currie regarding admission. Discussed patients PMHx, HPI, ED course, exam findings, labs, and radiology results. Diagnosis Shortness of Breath Differential Diagnosis: acute exacerbation of chronic obstructive airways disease, congestive heart failure, community acquired pneumonia, asthma with exacerbation and pulmonary embolism Most likely diagnosis given after review of the tests above:: Acute respiratory distress Tracheostomy status Hypoxemia Pneumonia SIRS Acute respiratory acidosis Hypercapnia Admission Indicated Admission indicated?: indicated Admission Request Was there a request for admission?: Yes Admission Attestation Admission request attestation: Discussed case with [] from Hospitalist service regarding admission. Discussed patients ED course, exam findings, labs, and radiology results. The Hospitalist [agrees,declines] to accept the patient for admission. Disposition Plan Disposition Plan: Admit Critical Care Time Critical Care Time Critical Care Time: Yes Total Critical Care Time (min.): 45 Attestation: The high probability of sudden, clinically significant deterioration in the patient's condition required the highest level of my preparedness to intervene urgently. The services I provided to this patient were to treat and/or prevent clinically significant deterioration. Services included the following: chart data review, reviewing nursing notes and/or old charts, documentation time, business systems consultant collaboration regarding findings and treatment options, medication orders and management, direct patient care, vital sign assessments and ordering, interpreting and reviewing diagnostic studies and lab tests. Aggregate critical care time includes only time during which I was engaged in work directly related to the patient's care, as described above, whether at bedside or elsewhere in the Emergency Department. It did not include time spent performing other reported procedures or the services of residents, students, nurses or physician assistants. Discharge Plan Plan Patient Disposition: Admit Acute Care w/in Hospital Disposition Comment: Hospitalist Prescriptions/Referrals Prescriptions/Med Rec: No Action carvedilol [Coreg] 3.125 mg Tablet 3.125 mg feeding tube BID atorvastatin [Lipitor] 40 mg Tablet 40 mg feeding tube QDAY Lantus U-100 Insulin 100 unit/mL Solution 30 unit SUBCUT HS Rx Instructions: 2200 cyanocobalamin (vitamin B-12) [Vitamin B-12] 1,000 mcg Tablet 1,000 mcg feeding tube QDAY bisacodyl [Dulcolax (bisacodyl)] 10 mg Suppository 10 mg TX Q72H PRN (Reason: Constipation) Dexilant 30 mg Capsule,Biphase Delayed Releas 30 mg feeding tube QDAY polyethylene glycol 3350 [Miralax] 17 gram Powder In Packet 17 g feeding tube QDAY PRN (Reason: Constipation) acetaminophen [Tylenol] 325 mg Capsule 650 mg feeding tube Q6HR PRN (Reason: Pain) magnesium hydroxide [Milk of Magnesia] 400 mg/5 mL Suspension 30 ml feeding tube Q48H PRN (Reason: Constipation) Fleet Enema 19-7 gram/118 mL Enema 118 ml TX Q72H PRN (Reason: constipation ) multivitamin with minerals Tablet 1 tab PO QDAY levofloxacin 750 mg tablet 750 mg PO Q24H Qty: 10 0RF levofloxacin 750 mg tablet 750 mg PO Q24H Qty: 7 0RF Referrals: No Primary/Family,Physician [Primary Care Provider] - In 1 week Problem List Clinical Impression: Acute respiratory distress, Tracheostomy status, Hypoxemia, Pneumonia, SIRS (systemic inflammatory response syndrome), Acute respiratory acidosis, Hypercapnia Patient/Caregiver Discharge Instructions Print Language: Nepali Stand Alone Forms: Melanie Award Info., Patient Portal Info Letter
--- NOTE | 2024-12-08 11:28 | PC.CC ---
MIRIAMWRomi was consulted by Dr. Beltran to to make contact with patient's listed next of Kin. ASW made telephone contact with patient's son, Colt who is listed as patient's next of kin. ASW introduced self, role, and reason for phone call. ASW transferred phone call to Dr. Beltran.
[2024-12-08 12:08] LABS: Base Excess, Venous -1 (-3-3); Lactate (Lactic Acid) 2.7 mMol/L (0.4-2.0); O2 Saturation, Venous 93 % (96-97); PCO2, Venous 58 mmHg (36-56); PO2, Venous 75 mmHg (15-58); pH, Venous 7.28 (7.33-7.66)
[2024-12-08 12:10] LABS: Basophils # (Auto) 0.1 Thou/mm3 (0.0-0.2); Basophils % (Auto) 0 % (0-2.5); Eosinophils # (Auto) 0.1 Thou/mm3 (0.0-0.5); Eosinophils % (Auto) 1 % (0-10); Hematocrit 38.6 % (41.0-53.0); Hemoglobin 12.7 g/dL (13.5-16.0); Immature Granulocytes % (Auto) 1 % (0-0); Immature Granulocytes Auto 0.16 Thou/mm3 (0.00-0.00); Lymphocytes % (Auto) 18 % (10-50); Mean Corpuscular HGB Conc 32.9 g/dl (31.0-37.0); Mean Corpuscular Volume 91 fL (80-100); Monocytes # (Auto) 1.1 Thou/mm3 (0.0-0.8); Monocytes % (Auto) 7 % (0-12); Neutrophils # (Auto) 12.4 Thou/mm3 (1.8-7.7); Neutrophils % (Auto) 73 % (37-80); Nucleated Red Blood Cell # 0.02 Thou/mm3 (0.00-0.00); Nucleated Red Blood Cell % 0 /100 WBC (0); Platelet Count 212 Thou/mm3 (140-440); Red Blood Count 4.23 Miln/mm3 (4.50-5.90); White Blood Count 16.8 Thou/mm3 (3.8-10.6)
[2024-12-08 12:22] LABS: INR 1.1 (0.9-1.3); Prothrombin Time 11.9 Seconds (9.0-12.2)
[2024-12-08 12:25] LABS: B-Type Natriuretic Peptide 347 pg/mL (0-100)
[2024-12-08 12:26] LABS: Ammonia 54 uMol/L (11-32)
[2024-12-08] MEDS: SODIUM CHLORIDE 0.9% 1000 ML 2,000 ML 150 ML IV (12:33)
[2024-12-08 12:35] LABS: Alanine Aminotransferase 15 U/L (10-49); Albumin/Globulin Ratio 1.1 (1.2-2.2); Alcohol, Blood Medical < 3.0 mg/dL (0-10.0); Alkaline Phosphatase 120 U/L (46-116); Anion Gap 7 (7-16); Aspartate Amino Transferase 27 U/L (0-34); BUN/Creatinine Ratio 23 Ratio (12-20); Bilirubin,Total 1.2 mg/dL (0.3-1.2); Blood Urea Nitrogen 14 mg/dL (9-23); Calcium 9.1 mg/dL (8.3-10.6); Calcium (Corrected) 9.1 mg/dL (8.5-10.1); Carbon Dioxide 28.5 mMol/L (20.0-31.0); Chloride 99 mMol/L (98-107); Creatinine (Component) 0.6 mg/dL (0.6-1.3); Estimated Creatinine Clearance 88.7 mL/min (>60); Globulin 3.8 gm/dL (2.3-3.5); Glucose 205 mg/dL (74-106); Osmolality,Calculated 274 (275-295); Procalcitonin 0.09 ng/ml (0.0-0.49); Sodium 134 mMol/L (136-145); Total Protein 7.8 gm/dL (5.7-8.2); eGFR > 60 See Note
[2024-12-08 12:39] LABS: Troponin I 0.051 ng/mL (0.0-0.045)
[2024-12-08 12:52] LABS: Collection Type, Urine Clean Catch
[2024-12-08 13:01] LABS: Bacteria,Urine 1+; Bilirubin,Urine Negative (Negative); Blood,Urine 2+ (Negative); Clarity,Urine Clear (Clear/Hazy); Color,Urine Yellow (Lt Yel-Yel); Glucose, Urine Negative (Negative); Hyaline Casts,Urine 2 /hpf (0-1); Ketones,Urine Negative (Negative); Leukocyte Esterase,Urine Negative (Negative); Nitrite,Urine Negative (Negative); Protein,Urine 3+ (Neg - Trace); RBC,Urine 12 /hpf (0-3); Specific Gravity,Urine 1.026 (1.001-1.035); Squamous Epithelial Cell,Urine 1 /hpf (0-5); Urobilinogen,Urine Negative mg/dL (0.0-1.0); WBC,Urine 2 /hpf (0-5)
[2024-12-08 13:02] LABS: Culture Indicated,Urine Yes
[2024-12-08 13:13] LABS: Amphetamine/Methamp Scrn,U Negative (Negative); Barbiturate Screen,Urine Negative (Negative); Benzodiazepines Screen,Urine Negative (Negative); Benzoylecgonine Screen, Ur Negative (Negative); Fentanyl Screen,Urine Negative (Negative); Opiate Screen,Urine Negative (Negative); THC Screen,Urine Negative (Negative)
[2024-12-08] MEDS: PIPER/TAZO 3.375 GM PREMIX 3.375 GM/50 ML BAG IV (14:19)
--- NOTE | 2024-12-08 14:39 | PD.RESHP ---
Documentation for date of: 12/08/24 [facility] History of Present Illness History of present illness: 84-year-old male patient with significant medical history for non-verbal, vegetative state, CVA, tracheostomy, PEG tube feed, atrial fibrillation, hypertension, hyperlipidemian and diabetes was brought from our subactue facility for shortness of breath. Patient had episode of stroke in 2019 leading to trach and PEG tube ever since has been subacute resident. Initial ED vital indicated BP 113/63, pulse 108 and respiratory rate of 32. Chest x-ray indicated bilateral lower lobe infiltrates, head CT was negative. Labs are significant for WBC 16.8, lactic acid 2.8, ALP 120, ammonia 54, troponin 0.051, BNP 347. Urinalysis indicated 1+ bacteria, leukocyte Estrace and nitrite negative. Sepsis alert was initiated in ED. Patient will be admitted for AHRF secondary to pneumonia sepsis. Medical Hx: CVA, tracheostomy, PEG tube, A-fib, HTN, HLD, DM, nonverbal, vegetative state Medications (need reconciliation): atorvastatin, dulcolax, coreg, vitamin b12, fleet enema, lantus, multivitamin Surgeries: Tracheostomy and Gastrostomy Social Hx: No illicit drug use, unknown smoking history, subacute resident s/p CVA 2019 Allergies: NKDA Code status: DNR Review of Systems Review of Systems ROS Unobtainable: unobtainable due to mental status and unobtainable due to medical condition Exam Vital Signs Temp Pulse Resp BP Pulse Ox O2 Del Method FiO2 100.2 F 99 28 H 114/80 99 T-Piece 40 12/08/24 14:00 12/08/24 14:12/08/24 14:12/08/24 14:12/08/24 14:12/08/24 14:12/08/24 14:00 Narrative Exam Constitutional: non verbal, bed bound, trached, fragile elderly patient HEENT: NCAT, EOMI, reactive round pupils b/l, patent nares b/l, moist mucous membranes Lung: Tachypneic with labored breathing, distant breath sounds, no wheezing or crackles Heart: Regular S1S2, no murmurs, gallops, or rubs Abdomen: Soft, non-distended, bowel sounds present, PEG tube noted Extremities: No cyanosis, clubbing, 1-2+ pitting edema of LE Neurologic: Unable to perform due to mentation/condition Results: Labs 12/08/24 11:55 12/08/24 11:55 Labs: Short CBC 12/08/24 Range/Units 11:55 WBC 16.8 H (3.8-10.6) Thou/mm3 Hgb 12.7 L (13.5-16.0) g/dL Hct 38.6 L (41.0-53.0) % Plt Count 212 D (140-440) Thou/mm3 BMP 12/08/24 11:55 Sodium 134 L Potassium 5.0 Chloride 99 Carbon Dioxide 28.5 BUN 14 Creatinine 0.6 Glucose 205 H Calcium 9.1 Cardiac Enzymes 12/08/24 Range/Units 11:55 Troponin I 0.051 H* (0.0-0.045) ng/mL Liver Function 12/08/24 Range/Units 11:55 Total Bilirubin 1.2 (0.3-1.2) mg/dL AST 27 (0-34) U/L ALT 15 (10-49) U/L Alkaline Phosphatase 120 H (46-116) U/L Albumin 4.0 (3.4-4.8) gm/dL Urine 12/08/24 Range/Units 12:42 Urine Color Yellow (Lt Yel-Yel) Urine Clarity Clear (Clear/Hazy) Urine pH 6.0 (5.0-7.0) Ur Specific [place] 1.026 (1.001-1.035) Urine Protein 3+ A (Neg - Trace) Urine Glucose (UA) Negative (Negative) ABG Interpretation ABG results: 12/08/24 11:55 VBG pH 7.28 L VBG pCO2 58 H VBG pO2 75 H VBG Base Excess -1 Quality Measures Quality Measures sepsis Current suspected stage: sepsis Possible source: pulmonary Blood cultures ordered: completed in ED Antibiotic ordered: Yes Advance care planning discussed with:: other Medications Home Medications and Allergies Home Medications ?Medication ?Instructions ?Recorded ?Confirmed ?Type acetaminophen 325 mg capsule 650 mg feeding tube Q6HR PRN Pain 08/11/20 08/12/20 History (Tylenol) atorvastatin 40 mg tablet (Lipitor) 40 mg feeding tube QDAY 08/11/20 08/12/20 History bisacodyl 10 mg rectal suppository 10 mg MT Q72H PRN Constipation 12/13/20 12/14/20 History (Dulcolax (bisacodyl)) carvedilol 3.125 mg tablet (Coreg) 3.125 mg feeding tube BID 08/11/20 08/12/20 History cyanocobalamin (vitamin B-12) 1,000 mcg feeding tube QDAY 08/11/20 08/12/20 History 1,000 mcg tablet (Vitamin B-12) dexlansoprazole 30 mg 30 mg feeding tube QDAY 08/11/20 08/12/20 History capsule,biphase delayed release (Dexilant) insulin glargine 100 unit/mL 30 unit subcut HS 08/11/20 08/12/20 History subcutaneous solution (Lantus U-100 Insulin) polyethylene glycol 3350 17 gram 17 g feeding tube QDAY PRN 08/11/20 08/12/20 History oral powder packet (Miralax) Constipation magnesium hydroxide 400 mg/5 mL 30 ml feeding tube Q48H PRN 08/12/20 08/12/20 History oral suspension (Milk of Magnesia) Constipation multivitamin with minerals 1 tab PO QDAY 08/12/20 08/12/20 History sodium phosphates 19 gram-7 118 ml MT Q72H PRN constipation 08/12/20 08/12/20 History gram/118 mL enema (Fleet Enema) Allergies Allergy/AdvReac Type Severity Reaction Status Date / Time No Known Allergies Allergy Verified 01/02/19 14:22 Visit Medications Acetaminophen (Acetaminophen 325 Mg Tablet) 650 mg PO Q6H PRN PRN Reason: Fever >101.5 Stop: 01/07/25 14:15 Albuterol/Ipratropium (Albuterol/Ipratropium (Duoneb) Rt Emma 3 Ml Nebu) 3 ml INH Q4HRRT KURT Stop: 01/07/25 14:59 Heparin Sodium (Porcine) (Heparin Sod Inj 5000 Unit/Ml Vial) 5,000 unit SC Q8HR KURT Stop: 12/22/24 21:59 Sodium Chloride (Ns) 2,000 mls @ 150 mls/hr IV .[id number] ONE Stop: 12/09/24 00:27 Last Admin: 12/08/24 12:33 Dose: 150 mls/hr Sodium Chloride (Ns) 1,000 mls @ 75 mls/hr IV .[id number] KURT Stop: 01/07/25 14:29 Ceftriaxone Sodium/Dextrose (Rocephin/D5w 2gm) 2 gm in 50 mls @ 100 mls/hr IV QDAY@1400 KURT Stop: 12/16/24 13:59 Azithromycin 500 mg/ Sodium (Chloride) 250 mls @ 250 mls/hr IV QDAY@1400 KURT Stop: 12/16/24 13:59 Azithromycin 500 mg/ Sodium (Chloride) 250 mls @ 250 mls/hr IV X1 ONE Stop: 12/08/24 15:29 Ceftriaxone Sodium 2 gm/ (Sodium Chloride) 50 mls @ 100 mls/hr IV X1 ONE Stop: 12/08/24 14:59 Vancomycin HCl (Vancomycin/Water 1250 Mg Ivpb) 250 mls @ 120 mls/hr IV Q12H [facility] Stop: 12/15/24 21:59 Metoclopramide HCl (Metoclopramide Inj 5 Mg/Ml Vial 2 Ml) 10 mg IVP Q6H PRN; Protocol PRN Reason: NAUSEA OR VOMITING Stop: 01/07/25 14:15 Pharmacy Consult (Vancomycin Pharmacy To Dose 1 Each Each) 1 each IV QDAY PRN PRN Reason: PROTOCOL Stop: 01/08/25 08:59 Discontinued Medications Piperacillin/Tazobactam/Dextrose (Zosyn) 3.375 gm in 50 mls @ 100 mls/hr IV X1 ONE Stop: 12/08/24 12:58 Last Admin: 12/08/24 14:19 Dose: 100 mls/hr Vancomycin/Sodium Chloride (Vancomycin/Ns 1 Gm Ivpb) 200 mls @ 120 mls/hr IV X1 ONE Stop: 12/08/24 14:24 Assessment & Plan Plan 84-year-old male patient with significant medical history for CVA, tracheostomy, PEG tube, hypertension, hyperlipidemia, A-fib and diabetes was brought to ED from [facility] subacute for shortness of breath. Patient admitted for AHRF secondary to pneumonia and sepsis. #Acute on chronic hypoxic respiratory failure 2/2 #Pneumonia sepsis #Possible aspiration #Bilateral lower lobe infiltrates On admission patient with shortness of breath Labs significant for leukocytosis Chest x-ray indicated lower lobe infiltrates Blood pressure drop on yeah 1 urinalysis no longer in the 5 VBG with pH of 7.28, pCO2 58, pO2 75 Plan: ? N.p.o. ? Start IV Vanco, cefepime and azithromycin ? NS IVF with caution given pitting edema of lower extremity ? DuoNebs every 4 hours ? Blood cultures ordered ? Elevation of head of the bed ? Aspiration precaution #Hypotension #Elevated BNP #History of Afib On admission patient with BP of 113/63 Over time patient has BP downtrending at with MAP less than 65 Physical exam significant for pitting edema of lower extremity Patient has received 2 L of IVF On chart review patient with history of A-fib with Toro Vascor of 7 On this admission EKG indicative of atrial flutter Plan: ? Withhold home BP medications in setting of sepsis and hypotension ? Continue gentle IVF as tolerated by patient to maintain MAP greater than 65 ? Consider upgrade to ICU for pressors if patient not responding to IVF ? Echocardiogram ordered #DM2 Last A1c 4.9 on February 2024 Plan: ?Patient currently n.p.o. ? Consider SSI once feeding is started #PEG tube feeding #Tracheostomy #Nonverbal #Bedbound #History of CVA Plan: ? Referral to dietitian ? Wean down trach ventilation as tolerated by patient ? Goals of care with family in the coming days Health Maintenance Dispo: Patient admitted for AHRF secondary to pneumonia sepsis Diet: N.p.o., PEG tube feeding post dietitian consult DVT/PPx: Heparin GI ppx: Protonix Lines: PEG tube, Gibson Code Status: DNR This patient care was discussed with my attending Dr. Rosey Jara MD PGY-2 Disclaimer: Minor errors in reports analysis manager may be present since this note was dictated by speech recognition software. Attending Provider Attestation/Addendum I reviewed labs, imaging, EKG, home medications and prior available records. Face to face evaluation was performed by me. I have personally examined the patient and discussed assessment and plan with the IM team. I reviewed the resident note and agree with the plan with exceptions as below. Acute on chronic chronic hypoxic respiratory failure Status post tracheostomy Status post PEG tube placement Chronic vegetative state History of CVA Possible CHF exacerbation Likely aspiration pneumonia Leukocytosis Lactic acid elevation Troponin elevation Atrial fibrillation with rapid ventricular response Continue ventilator and wean off oxygen requirements as per protocol Start vancomycin, cefepime, and azithromycin Order sputum and blood cultures Hold IV fluids in the setting of CHF Order echocardiogram Hold tube feeds in the setting of possible aspiration pneumonia Aspiration precautions Trend troponin Trend WBC
[2024-12-08] MEDS: VANCOMYCIN/NS 1 GM IVPB 200 ML IV (14:45)
[2024-12-08 15:04] LABS: Reflex Lactate? Y
[2024-12-08] MEDS: ALBUTEROL/IPRATROPIUM (Duoneb) RT SOL 3 ML NEBU INH ×4 (15:07→22:34)
[2024-12-08 15:19] LABS: Lactic Acid, 3 HR 1.6 mMol/L (0.4-2.0)
--- NOTE | 2024-12-08 15:58 | PC.NURSE ---
DR. GARCIA MADE AWARE OF PT BLOOD PRESSURE RANGING FROM 68/49(THE LOWEST) UP 92/62. NO NEW ORDERS GIVEN TO THIS NURSE
--- NOTE | 2024-12-08 16:11 | PC.NURSE ---
CALLED DR. GARCIA TO LET HIM KNOW THAT THIS PT BP DROP BACK DOWN TO 73/47 WITH A MAP 55 @1602; RECHECKED PT BP AT 1610 WHICH RENDER 65/47 MAP53, PER DR. MENDIOLA, HE WILL TALK TO JOAQUIN JOSUE AND HE WILL GET BACK TO ME. NO NEW ORDERS GIVEN TO THIS NURSE.
[2024-12-08] MEDS: SODIUM CHLORIDE 0.9% 500 ML 500 ML 999 ML IV ×2 (16:25→17:42)
[2024-12-08] MEDS: cefTRIAXone 2 GM in SODIUM CHLORIDE 0.9% (Popper) 50 ML IV (16:30)
[2024-12-08] MEDS: SODIUM CHLORIDE RT 10% 15 ML NEBU 5 ML INH (16:37)
--- NOTE | 2024-12-08 17:30 | PC.NURSE ---
PER DR. MENDIOLA, GIVEN ANOTHER 500ML NS FOR BP AT 85/56.
[2024-12-08] MEDS: AZITHROMYCIN INJ 500 MG in SODIUM CHLORIDE 0.9% 250 ML 250 ML 250 MG IV (17:53)
[2024-12-08 18:14] LABS: Troponin I 0.144 ng/mL (0.0-0.045)
--- NOTE | 2024-12-08 18:26 | PC.NURSE ---
CALLED CHARGE NURSE MASTER TO LET HER KNOW THAT I SPOKE TO DR. MENDIOLA WHO REPORTED THAT THE PT MAY NOW GO UP WITH THE BLOOD PRESSURE 85/57 MAP 66 AFTER THE PT GOT A TOTAL OF 1L NS. PER MASTER AVERY SHE REPORTED THAT SHE WANT TO WAIT TO SEE IF THE PT BP STAYS UP BEFORE THE PT CAN BE STABLE FOR TELE, I CALLED DR. MENDIOLA TO LET HIM KNOW AND HE AGREE TO WAIT. CHARGE NURSE KVNG MADE AWARE.
[2024-12-08] MEDS: LEVALBUTEROL RT 1.25 MG/0.5 ML NEBU 5 MG INH (20:12)
[2024-12-08] MEDS: SODIUM CHLORIDE RT SOL 0.9% 3 ML NEBU INH (20:13)
--- NOTE | 2024-12-08 20:55 | PD.EVENT ---
Documentation for date of: 12/08/24 Event Note Event Note: Current BP is 73/48. Patient is not responding to IV fluids. Will add Levophed and upgrade to ICU.
[2024-12-08] MEDS: Norepinephrine/D5W 8mg/250ml 8 MG/250 ML BAG 6.906 MG IV (21:01)
[2024-12-08 21:33] LABS: Allen Test Performed/OK; Base Excess 1 (-3-3); HCO3 27 mEq/L (20-26); Inspired Oxygen, FIO2 70 %; O2 Saturation 101 % (91-98); PCO2 49 mmHg (32.0-48.0); PO2 281 mmHg (83-108); Puncture Site Left Radial; pH, Arterial 7.35 (7.35-7.45)
[2024-12-08] MEDS: VANCOMYCIN/WATER 1250 MG IVPB 250 ML 120 MG IV (22:40)
[2024-12-08] MEDS: HEPARIN SOD INJ 5000 UNIT/ML VIAL SC (22:57)
[2024-12-08] MEDS: CEFEPIME INJ 2 GM in SODIUM CHLORIDE 0.9% (Popper) 50 ML IV (22:57)
--- NOTE | 2024-12-08 23:00 | PC.RT ---
pt transfered to icu no complications as soon as pt tranfered beds RR increased labored in the 30s, face turn red, abd breathig, spo2 dropped to mid 80s, fio2 increased to 100%, schedule tx given, pt improved post tx, color improved RT Theo made aware.
--- NOTE | 2024-12-08 23:04 | ESCONSULT_ITS ---
HPI Data of Consult Requesting Physician: Kavon Currie MD Admitting Provider: Kavon Currie MD Attending Provider: Kavon Currie MD Primary Care Provider: Physician No Primary/Family Consult Narrative Reason for consult: Hypotension refractory to iv fluids History of present illness: This 84-year-old male patient with significant medical history for non-verbal, vegetative state, CVA, tracheostomy, PEG tube feed, atrial fibrillation, hypertension, hyperlipidemian and diabetes was brought from our subactue facility for shortness of breath. Patient had episode of stroke in 2019 leading to trach and PEG tube ever since has been subacute resident. In the ED vital indicated BP 113/63, pulse 108 and respiratory rate of 32. Chest x-ray indicated bilateral lower lobe infiltrates, head CT was negative. Labs are significant for WBC 16.8, lactic acid 2.8, ALP 120, ammonia 54, troponin 0.051, BNP 347. Urinalysis indicated 1+ bacteria, leukocyte Estrace and nitrite negative. Sepsis alert was initiated in ED. patient's blood pressure remained low despite receiving IV fluids. Medical Hx: CVA, tracheostomy, PEG tube, A-fib, HTN, HLD, DM, nonverbal, vegetative state Medications (need reconciliation): atorvastatin, dulcolax, coreg, vitamin b12, fleet enema, lantus, multivitamin Surgeries: Tracheostomy and Gastrostomy Social Hx: No illicit drug use, unknown smoking history, subacute resident s/p CVA 2018 Allergies: NKDA Patient was upgraded to ICU due to hypotension with MAP around 55 with blood pressure 66/50 and refractory to IV fluids. He was started on low-dose Levophed for maintaining blood pressure. Rest of the management will be continued with IV antibiotic.Patient is admitted for acute on chronic respiratory failure and sepsis likely due to possible ventilator associated versus aspiration pneumonia. Patient remained persistently hypotensive possible developing distributive versus septic shock required pressor support and was upgraded to ICU. cc:: cc: Kavon Currie MD Review of Systems Review of Systems Systems Reviewed: All systems reviewed, normal except as documented Past Medical History Past Medical History NEUROLOGIC: Positive Cerebrovascular Accident CARDIAC: Positive Cardiac Disorders, Atrial Fibrillation and Hypercholesterolemia RESPIRATORY: Positive Pneumonia ENDOCRINE: Positive Endocrine Disorders and Diabetes Mellitus Type 2 Family History FAMILY HISTORY: Negative Family Psychiatric Problems, Family Respiratory Disorders, Family Gastrointestinal Problems, Family Cancer, Family Surgery or Family Anesthesia Reaction Surgical History SURGICAL: Positive Abdominal Surgery, Tracheostomy and Gastrostomy Social History SMOKING STATUS: Unknown if ever smoked SECOND HAND EXPOSURE: No SUBSTANCE USE: does not use Exam Vital Signs Temp Pulse Resp BP Pulse Ox O2 Del Method FiO2 99.7 F 96 30 H 124/72 100 Mechanical Ventilation 100 12/08/24 21:15 12/08/24 22:42 12/08/24 22:34 12/08/24 22:42 12/08/24 22:42 12/08/24 21:15 12/08/24 22:42 Narrative Exam Constitutional: non verbal, bed bound, trached, fragile elderly patient with tracheostomy HEENT: NCAT, EOMI, reactive round pupils b/l, patent nares b/l, moist mucous membranes Lung: Tachypneic with labored breathing, distant breath sounds, no wheezing or crackles Heart: Irregular rate and irregular rhythm S1S2, no murmurs, gallops, or rubs, hypotension Abdomen: Soft, non-distended, bowel sounds present, PEG tube noted Extremities: No cyanosis, clubbing, 1-2+ pitting edema of LE Neurologic: Unable to perform due to mentation/condition Results Labs 12/08/24 11:55 12/09/24 03:26 Labs: Short CBC 12/08/24 Range/Units 11:55 WBC 16.8 H (3.8-10.6) Thou/mm3 Hgb 12.7 L (13.5-16.0) g/dL Hct 38.6 L (41.0-53.0) % Plt Count 212 D (140-440) Thou/mm3 BMP 12/08/24 11:55 Sodium 134 L Potassium 5.0 Chloride 99 Carbon Dioxide 28.5 BUN 14 Creatinine 0.6 Glucose 205 H Calcium 9.1 Cardiac Enzymes 12/08/24 12/08/24 Range/Units 11:55 15:13 Troponin I 0.051 H* 0.144 H* (0.0-0.045) ng/mL Liver Function 12/08/24 Range/Units 11:55 Total Bilirubin 1.2 (0.3-1.2) mg/dL AST 27 (0-34) U/L ALT 15 (10-49) U/L Alkaline Phosphatase 120 H (46-116) U/L Albumin 4.0 (3.4-4.8) gm/dL Urine 12/08/24 Range/Units 12:42 Urine Color Yellow (Lt Yel-Yel) Urine Clarity Clear (Clear/Hazy) Urine pH 6.0 (5.0-7.0) Ur Specific [place] 1.026 (1.001-1.035) Urine Protein 3+ A (Neg - Trace) Urine Glucose (UA) Negative (Negative) ABG Interpretation ABG results: 12/08/24 12/08/24 11:55 21:28 ABG pH 7.35 ABG pCO2 49 H ABG pO2 281 H ABG HCO3 27 H ABG O2 Saturation 101 H ABG Base Excess 1 VBG pH 7.28 L VBG pCO2 58 H VBG pO2 75 H VBG Base Excess -1 Quality Measures Quality Measures sepsis Current suspected stage: sepsis Possible source: pulmonary Blood cultures ordered: completed in ED Antibiotic ordered: Yes Advance care planning discussed with:: other Medications Home Medications and Allergies Home Medications ?Medication ?Instructions ?Recorded ?Confirmed ?Type acetaminophen 325 mg capsule 650 mg feeding tube Q6HR PRN Pain 08/11/20 08/12/20 History (Tylenol) atorvastatin 40 mg tablet (Lipitor) 40 mg feeding tube QDAY 08/11/20 08/12/20 History bisacodyl 10 mg rectal suppository 10 mg GA Q72H PRN C onstipation 08/11/20 08/12/20 History (Dulcolax (bisacodyl)) carvedilol 3.125 mg tablet (Coreg) 3.125 mg feeding tu be BID 08/11/20 08/12/20 History cyanocobalamin (vitamin B-12) 1,000 mcg feeding tube Q DAY 08/11/20 08/12/20 History 1,000 mcg tablet (Vitamin B-12) dexlansoprazole 30 mg 30 mg feeding tube QDAY 07/3008/12/20 History capsule,biphase delayed release (Dexilant) insulin glargine 100 unit/mL 30 unit subcut HS 0 08/12/20 History subcutaneous solution (Lantus U-100 Insulin) polyethylene glycol 3350 17 gram 17 g feeding tube QDA Y PRN 08/11/20 08/12/20 History oral powder packet (Miralax) Constipation magnesium hydroxide 400 mg/5 mL 30 ml feeding tube Q48 H PRN 08/12/20 08/12/20 History oral suspension (Milk of Magnesia) Constipation multivitamin with minerals 1 tab PO QDAY 08/12/2007/30 History sodium phosphates 19 gram-7 118 ml GA Q72H PRN constip ation 08/12/20 08/12/20 History gram/118 mL enema (Fleet Enema) Allergies Allergy/AdvReac Type Severity Reaction Status Date / Time No Known Allergies Allergy Verified 01/02/19 14:22 Visit Medications Acetaminophen (Acetaminophen 325 Mg Tablet) 650 mg PO Q6H PRN PRN Reason: Fever >101.5 Stop: 01/07/25 14:15 Albuterol/Ipratropium (Albuterol/Ipratropium (Duoneb) Rt Emma 3 Ml Nebu) 3 ml INH Q4HRRT KURT Stop: 01/07/25 22:59 Last Admin: 12/08/24 22:34 Dose: 3 ml Heparin Sodium (Porcine) (Heparin Sod Inj 5000 Unit/Ml Vial) 5,000 unit SC Q8HR KURT Stop: 12/22/24 21:59 Last Admin: 12/08/24 22:57 Dose: 5,000 unit Cefepime HCl 2 gm/ Sodium (Chloride) 50 mls @ 100 mls/hr IV Q8HR KURT Stop: 12/15/24 21:59 Last Admin: 12/08/24 22:57 Dose: 100 mls/hr Vancomycin HCl (Vancomycin/Water 1250 Mg Ivpb) 250 mls @ 120 mls/hr IV X1 ONE Stop: 12/09/24 00:04 Last Admin: 12/08/24 22:40 Dose: 120 mls/hr Norepinephrine/Dextrose (Levophed In D5w 8mg/250ml) 8 mg in 250 mls @ 6.906 mls/hr IV .Q24H PRN; Protocol PRN Reason: PER PROTOCOL Stop: 01/07/25 20:53 Last Admin: 12/08/24 21:01 Dose: 0.05 mcg/kg/min, 6.906 mls/hr Azithromycin 500 mg/ Sodium (Chloride) 250 mls @ 250 mls/hr IV QDAY@1400 [facility] Stop: 12/16/24 13:59 Vancomycin HCl (Vancomycin/Water 1250 Mg Ivpb) 250 mls @ 120 mls/hr IV Q12H KURT Stop: 12/16/24 09:59 Metoclopramide HCl (Metoclopramide Inj 5 Mg/Ml Vial 2 Ml) 10 mg IVP Q6H PRN; Protocol PRN Reason: NAUSEA OR VOMITING Stop: 01/07/25 14:15 Pharmacy Consult (Vancomycin Pharmacy To Dose 1 Each Each) 1 each IV QDAY PRN PRN Reason: PROTOCOL Stop: 01/08/25 08:59 Sodium Chloride (Sodium Chloride Rt Emma 0.9% 3 Ml Nebu) 3 ml INH PRN PRN PRN Reason: SOLN Stop: 01/07/25 19:29 Last Admin: 12/08/24 20:13 Dose: 3 ml Discontinued Medications Albuterol/Ipratropium (Albuterol/Ipratropium (Duoneb) Rt Emma 3 Ml Nebu) 3 ml INH Q4HRRT KURT Stop: 01/07/25 14:59 Last Admin: 12/08/24 18:00 Dose: 3 ml Albuterol/Ipratropium (Albuterol/Ipratropium (Duoneb) Rt Emma 3 Ml Nebu) 3 ml INH Q2H KURT Stop: 01/07/25 19:14 Albuterol/Ipratropium (Albuterol/Ipratropium (Duoneb) Rt Emma 3 Ml Nebu) 3 ml INH Q2H PRN PRN Reason: Shortness of breath Stop: 01/07/25 19:14 Last Admin: 12/08/24 19:13 Dose: 3 ml Albuterol/Ipratropium (Albuterol/Ipratropium (Duoneb) Rt Emma 3 Ml Nebu) 3 ml INH Q4HRRT KURT Stop: 01/07/25 22:59 Sodium Chloride (Ns) 2,000 mls @ 150 mls/hr IV .[id number] ONE Stop: 12/09/24 00:27 Last Admin: 12/08/24 12:33 Dose: 150 mls/hr Piperacillin/Tazobactam/Dextrose (Zosyn) 3.375 gm in 50 mls @ 100 mls/hr IV X1 ONE Stop: 12/08/24 12:58 Last Infusion: 12/08/24 14:45 Dose: Infused Vancomycin/Sodium Chloride (Vancomycin/Ns 1 Gm Ivpb) 200 mls @ 120 mls/hr IV X1 ONE Stop: 12/08/24 14:24 Last Infusion: 12/08/24 16:33 Dose: Infused Sodium Chloride (Ns) 1,000 mls @ 75 mls/hr IV .[id number] KURT Stop: 01/07/25 14:29 Last Admin: 12/08/24 17:42 Dose: Not Given Ceftriaxone Sodium/Dextrose (Rocephin/D5w 2gm) 2 gm in 50 mls @ 100 mls/hr IV QDAY@1400 KURT Stop: 12/16/24 13:59 Azithromycin 500 mg/ Sodium (Chloride) 250 mls @ 250 mls/hr IV QDAY@1400 [facility] Stop: 12/16/24 13:59 Azithromycin 500 mg/ Sodium (Chloride) 250 mls @ 250 mls/hr IV X1 ONE Stop: 12/08/24 15:29 Last Infusion: 12/08/24 18:57 Dose: Infused Ceftriaxone Sodium 2 gm/ (Sodium Chloride) 50 mls @ 100 mls/hr IV X1 ONE Stop: 12/08/24 14:59 Last Infusion: 12/08/24 17:42 Dose: Infused Vancomycin HCl (Vancomycin/Water 1250 Mg Ivpb) 250 mls @ 120 mls/hr IV Q12H [facility] Stop: 12/16/24 09:59 Sodium Chloride (Ns) 500 mls @ 999 mls/hr IV .Q31M ONE Stop: 12/08/24 16:45 Last Infusion: 12/08/24 17:43 Dose: Infused Sodium Chloride (Ns) 500 mls @ 999 mls/hr IV .Q31M ONE Stop: 12/08/24 18:06 Last Infusion: 12/08/24 18:16 Dose: Infused Ipratropium [place] (Ipratropium Rt 0.5 Mg/ 2.5 Ml Nebu) 0.5 mg INH Q3HR PRN PRN Reason: SHORTNESS OF BREATH Stop: 01/07/25 19:25 Levalbuterol HCl (Levalbuterol Rt 1.25 Mg/0.5 Ml Nebu) 1.25 mg INH Q3H KURT Stop: 01/07/25 19:29 Levalbuterol HCl (Levalbuterol Rt 1.25 Mg/0.5 Ml Nebu) 1.25 mg INH X1 ONE Stop: 12/08/24 19:31 Levalbuterol HCl (Levalbuterol Rt 1.25 Mg/0.5 Ml Nebu) 5 mg INH X1 ONE Stop: 12/08/24 19:32 Last Admin: 12/08/24 20:12 Dose: 5 mg Sodium Chloride (Sodium Chloride Rt 10% 15 Ml Nebu) 5 ml INH X1 ONE Stop: 12/08/24 15:52 Last Admin: 12/08/24 16:37 Dose: 5 ml Sodium Chloride (Sodium Chloride Rt Emma 0.9% 3 Ml Nebu) 3 ml INH PRN PRN PRN Reason: SOLN Stop: 01/07/25 19:25 Assessment & Plan Plan This 84-year-old male patient with significant medical history for CVA, tracheostomy, PEG tube, hypertension, hyperlipidemia, A-fib and diabetes was brought to ED from [facility] subacute for shortness of breath. Patient is admitted for acute on chronic respiratory failure and sepsis likely due to possible ventilator associated versus aspiration pneumonia. Patient remained persistently hypotensive possible developing distributive versus septic shock required pressor support and was upgraded to ICU. #PRODUCTION LINE #Nonverbal and bedbound #History of CVA ? Head CT showed changes of right-sided infarct. Diffuse cortical atrophy ? Ammonia elevated at 54 ? No active management ? Consider neuroconsult due to changes of right-sided infarct per CT results #CVS: #Hypotension #Shock likely distributive related to sepsis #Elevated BNP On admission patient with BP of 113/63 Over time patient has BP downtrending at with MAP less than 65 Physical exam significant for pitting edema of lower extremity Patient has received 2 L of IVF Plan: ? Started on Levophed low-dose to keep MAP of 65 ? Blood pressure remained unresponsive to IV fluids ? Withhold home BP medications in setting of sepsis and hypotension ? Echocardiogram ordered ? Treating underlying infection #History of A-fib, rate controlled ? EKG showed A-fib currently rate control and QTc 384 ? [id number] Plan: ? Continue to monitor heart rate ? Patient is on Coreg 3.125 twice daily currently holding due to soft blood pressure ? Patient was not found to be on anticoagulation #NSTEMI type II likely supply demand ischemia ? Troponin I was 0.051--> 0.144 on admission ? EKG showed A-fib currently rate controlled Plan: ? Trend troponin I ? Follow-up on echo #Lactic acidosis likely type A ? Related to hypoperfusion versus sepsis ? Initial lactic acid was elevated at 2.7 down trended to 1.6 Plan: ? IV fluids given and currently on Levophed low-dose ? Treating underlying infection #Respiratory #Acute on chronic hypoxic respiratory failure likely due to community-acquired vs ventilator associated pneumonia #Chronic tracheostomy #Possible aspiration #Bilateral lower lobe infiltrates On admission patient presented with shortness of breath.Labs significant for leukocytosis VBG with pH of 7.28, pCO2 58, pO2 75 Chest x-ray showed increased left lower zone infiltrate and right upper zone infiltrate. ABGs showed pH 7.35, pCO2 49, pO2 281, bicarb 27 Plan: ? N.p.o. ? Start IV Vanco, cefepime and azithromycin ? NS IVF with caution given pitting edema of lower extremity ? DuoNebs every 4 hours ? Blood cultures and MRSA screen ordered ? Elevation of head of the bed ? Aspiration precaution ? Referred to respiratory therapist #GI #PEG tube feeding ? Patient has chronic PEG tube Plan ? Referral to dietitian ? Wean down trach ventilation as tolerated by patient ? Possible goals of care with family # #Possible UTI, pyuria and bacteria per urinalysis ? Patient is nonverbal therefore unable to determine if patient has UTI Plan: ? Continuing antibiotics and follow-up with urine cultures #Heme #Leukocytosis #Normocytic anemia ? Count 16.8, hemoglobin 12.7 Plan: ? PRBC if hemoglobin drops below 7 ? Trend WBC ? Follow-up with CBC #Endo: #Type 2 diabetes Last A1c 4.9 on February 2024 Plan: ? Patient currently n.p.o. ? Consider SSI once feeding is started ? Hypoglycemia protocol #ID: ? Community-acquired versus ventilator associated pneumonia ? Urinalysis is significant for pyuria and bacteriuria ? Continue cefepime 2 g IV every 8 hourly, azithromycin 500 mg once daily and vancomycin pharmacy to dose ? Follow-up on blood cultures and urine cultures #Skin: - Chronic PEG tube - Clean and dry Health maintenance: Diet: N.p.o., PEG tube feeding post dietitian consult DVT/PPx: Heparin GI ppx: Protonix Lines: PEG tube, Gibson Code Status: DNR Dispo: Patient admitted for sepsis and AHRF secondary to possible community- acquired pneumonia and hypotension requiring pressors. Patient discussed with my attending, Dr. Flash bentley MD, PGY 2 Attending Provider Attestation/Addendum Pt was evaluated and plan formulated together with the housestaff team. I have reviewed the residents note above and agree with most of its content. Please refer to the residents note for additional details.
--- NOTE | 2024-12-08 23:04 | PC.RT ---
at 18:55 per RN piyush pt spo2 dropping to the low 80s, immediately went to assess pt , per RN fio2 had been increased to 100%, noted RR in the 40s, suction a yellow cream thick sputum, auscultated bilateral coarse bs, cuffed pressured assess circuit intact, vent settings changed to PRVC 400, RR18, 5 peep pt toleraing settings RR improved to the 30s, called DR. hart for vent settings and per DR. haque with changes.
[2024-12-09] VITALS (124 sets, daily range): BP systolic 19–186; BP diastolic 18–148; PULSE 50–141; RESP 17–41; TEMP 36.1–37.3; O2SAT 55–100; BMI 24.0
[2024-12-09] MEDS: LORazepam 2 MG/ML VIAL IVP (00:31)
--- NOTE | 2024-12-09 01:01 | XR_ITS ---
Examination: AP chest single view Technique: AP portable chest single view Indications: Difficulty breathing this week Comparison: December 08, 2024 Findings: Mild to moderate enlargement cardiac contour Opacity left base consistent with pneumonia Tracheostomy tube stable position Moderate vascular congestion Impression: Left base pneumonia Moderate vascular congestion
[2024-12-09] MEDS: FUROSEMIDE INJ 10 MG/ML 4ML VIAL 40 MG IVP (01:26)
[2024-12-09 01:51] LABS: Base Excess -1 (-3-3); HCO3 26 mEq/L (20-26); Inspired Oxygen, FIO2 60 %; O2 Saturation 101 % (91-98); PCO2 50 mmHg (32.0-48.0); PO2 223 mmHg (83-108); pH, Arterial 7.32 (7.35-7.45)
[2024-12-09 01:53] LABS: Allen Test Performed/OK; Puncture Site Right Radial
--- NOTE | 2024-12-09 02:27 | PRELIM_ITS ---
Radiograph of the chest (single view). December 09, 2024 at 0107 hours Clinical history: Tachypnea Comparison: Compared with the prior radiograph study dated December 08, 2024. Findings: Cardiomegaly. Left basal consolidation. No pneumothorax. Questionable left hilar mass. There is no pleural effusion. The bony thorax is unremarkable. Impression: 1. Cardiomegaly. 2. Left basal consolidation suspicious for pneumonia. 3. Questionable left perihilar mass, correlation with CT is recommended. Report Electronically Signed By: Booker Ramirez 12/09/2024 2:26:38 AM [EST]
[2024-12-09] MEDS: CALCIUM GLUC/NS 1000MG IVPB 1,000 MG/50 ML BAG 200 MG IV (02:47)
[2024-12-09] MEDS: ALBUTEROL/IPRATROPIUM (Duoneb) RT SOL 3 ML NEBU INH ×5 (03:40→22:34)
[2024-12-09 03:46] LABS: Potassium 4.6 mMol/L (3.4-5.1)
[2024-12-09 04:29] LABS: Base Excess 3 (-3-3); HCO3 29 mEq/L (20-26); Inspired Oxygen, FIO2 40 %; O2 Saturation 100 % (91-98); PCO2 48 mmHg (32.0-48.0); PO2 154 mmHg (83-108); pH, Arterial 7.39 (7.35-7.45)
[2024-12-09 04:35] LABS: Allen Test Performed/OK; Puncture Site Right Radial
[2024-12-09 05:32] LABS: Basophils % (Auto) 0 % (0-2.5); Eosinophils # (Auto) 0.1 Thou/mm3 (0.0-0.5); Eosinophils % (Auto) 1 % (0-10); Hematocrit 35.8 % (41.0-53.0); Hemoglobin 11.2 g/dL (13.5-16.0); Immature Granulocytes % (Auto) 1 % (0-0); Immature Granulocytes Auto 0.08 Thou/mm3 (0.00-0.00); Lymphocytes # (Auto) 1.1 Thou/mm3 (1.0-4.8); Lymphocytes % (Auto) 13 % (10-50); Mean Corpuscular HGB Conc 31.3 g/dl (31.0-37.0); Mean Corpuscular Hemoglobin 29.3 pg (25.0-35.0); Mean Corpuscular Volume 94 fL (80-100); Monocytes # (Auto) 0.9 Thou/mm3 (0.0-0.8); Monocytes % (Auto) 10 % (0-12); Neutrophils # (Auto) 6.3 Thou/mm3 (1.8-7.7); Neutrophils % (Auto) 75 % (37-80); Nucleated Red Blood Cell % 0 /100 WBC (0); Platelet Count 141 Thou/mm3 (140-440); RDW Standard Deviation 59.9 fL (35.1-43.9); Red Blood Count 3.82 Miln/mm3 (4.50-5.90); White Blood Count 8.5 Thou/mm3 (3.8-10.6)
[2024-12-09] MEDS: CEFEPIME INJ 2 GM in SODIUM CHLORIDE 0.9% (Popper) 50 ML IV (05:41)
[2024-12-09] MEDS: HEPARIN SOD INJ 5000 UNIT/ML VIAL SC ×3 (05:41→22:52)
[2024-12-09 06:00] LABS: Alanine Aminotransferase 12 U/L (10-49); Albumin, Serum 3.4 gm/dL (3.4-4.8); Albumin/Globulin Ratio 1.1 (1.2-2.2); Alkaline Phosphatase 80 U/L (46-116); Anion Gap 8 (7-16); Aspartate Amino Transferase 30 U/L (0-34); BUN/Creatinine Ratio 22 Ratio (12-20); Blood Urea Nitrogen 13 mg/dL (9-23); Calcium 8.6 mg/dL (8.3-10.6); Calcium (Corrected) 9.1 mg/dL (8.5-10.1); Carbon Dioxide 28.1 mMol/L (20.0-31.0); Chloride 105 mMol/L (98-107); Creatinine (Component) 0.6 mg/dL (0.6-1.3); Estimated Creatinine Clearance 88.7 mL/min (>60); Globulin 3.2 gm/dL (2.3-3.5); Glucose 152 mg/dL (74-106); Magnesium 1.7 mg/dL (1.6-2.6); Osmolality,Calculated 284 (275-295); Phosphorous 2.5 mg/dL (2.4-5.1); Potassium 4.2 mMol/L (3.4-5.1); Sodium 141 mMol/L (136-145); Total Protein 6.6 gm/dL (5.7-8.2); eGFR > 60 See Note
[2024-12-09] MEDS: MORPHINE SULF INJ 10 MG/ML VIAL IVP (08:35)
--- NOTE | 2024-12-09 08:59 | XR_ITS ---
Exam: Chest 1 view, AP Date and time of exam: 12/09/2024, 9:16 AM INDICATION: Hypoxia Comparison: Earlier today Findings: Persistent mild cardiomegaly megaly central pulmonary vascular congestion. Ill-defined opacification left lung base.. No significant interval change. No pneumothorax. No acute bony abnormality. Stable tracheostomy tube. Impression: Stable cardiomegaly with pulmonary vascular congestion. Stable left basilar infiltrate. No significant changes
[2024-12-09 09:48] LABS: Base Excess -2 (-3-3); HCO3 32 mEq/L (20-26); PCO2 120 mmHg (32.0-48.0); PO2 85 mmHg (83-108)
--- NOTE | 2024-12-09 09:55 | XR_ITS ---
Examination: CTA chest with intravenous contrast 2-D reconstructions 3-D reconstructions, vascular Date and time of exam: December 12, 2024 at 1627 hrs. Indications: Chest pain shortness of breath today CTDI: vol (mGy) 44.4 DLP: (mGycm) 575 Technique: Multiple axial sections of the thorax have been obtained. 3 mm slice thickness, from below the hemidiaphragms to above the apices of the lungs. Mediastinal and lung density settings have been obtained. 2-D sagittal and coronal reconstructions. 3-D angiographic renderings, 3-D volume renderings, 3D post processing, vascular maximum intensity projections obtained. Contrast administered is 100 cc Isovue-370. Low dose protocols were performed. One or more of the following dose reduction techniques were used; automated exposure control, adjustment of the mA and/or KV according to patient size, use of iterative reconstruction technique. Findings: No thoracic aortic aneurysmal dilatation or dissection No paratracheal tracheobronchial or bronchopulmonary adenopathy. No pulmonary artery filling defects Significant bibasilar pneumonia Mild to moderate bilateral pleural effusions Tracheostomy tube tip projects above the carlo. Moderate enlargement left ventricle with prominent vascular congestion Impression: Mild heart failure Negative for thoracic aortic aneurysmal dilatation No pulmonary artery emboli. Bibasilar pneumonia, consider aspiration pneumonia
--- NOTE | 2024-12-09 09:55 | XR_ITS ---
Examination: CT abdomen and pelvis without contrast. Coronal 3-D reconstructions. Sagittal 2-D reconstructions. Date and time of exam: December 12, 2024 1606 hours Indications: Hypoxic respiratory failure, abdominal pain, clinical diagnosis perforation CTDI: vol (mGy): 17.9 DLP: (mGycm): 869 Technique: Axial images of the abdomen have been obtained, 3 mm slice thickness Intravenous contrast material has not been administered. Low dose protocols were performed. One or more of the following dose reduction techniques were used; automated exposure control, adjustment of the mA and/or KV according to patient size, use of iterative reconstruction technique. Findings: Bibasilar pneumonia with small pleural effusions. No focal liver or splenic lesions. Negative for pneumoperitoneum. No pancreatic mass. Gastrostomy tube satisfactory position No gallstones. No renal or ureteral calculi, no hydronephrosis Mild to moderate colonic ileus No bowel obstruction. No pericecal inflammatory change Colonic diverticulosis, no diverticulitis. Mild thickening of urinary bladder wall. Mild thickening of the rectal wall Normal seminal vesicles No significant prostatomegaly. Urinary Gibson catheter noted Severe osteopenia Impression: Bibasilar pneumonia with small bilateral pleural effusions Negative for pneumoperitoneum Negative for cholelithiasis. No renal or ureteral calculi, no hydronephrosis. No CT findings of appendicitis or bowel obstruction No abdominal or pelvic abscess
[2024-12-09 09:57] LABS: Allen Test Performed/OK; Inspired Oxygen, FIO2 45 %; O2 Saturation 91 % (91-98); Puncture Site Left Radial; pH, Arterial 7.04 (7.35-7.45)
--- NOTE | 2024-12-09 10:00 | PC.DIETICIAN ---
Nutrition prescription: Glucerna 1.2 at 20 ml/hr via PEG tube by pump. Advance 10 ml every 8 hrs to goal rate of 50 ml/hr x 20 hrs. If no IV fluids, water flushes of 40 ml/hr (or per MD). Thank you! :)
[2024-12-09] MEDS: MORPHINE SULF INJ 10 MG/ML VIAL 4 MG IVP (10:15)
[2024-12-09] MEDS: VANCOMYCIN/WATER 1250 MG IVPB 250 ML 120 MG IV ×2 (10:17→22:53)
[2024-12-09] MEDS: MEROPENEM INJ 1,000 MG in SODIUM CHLORIDE 0.9% (Popper) 50 ML 100 MG IV ×3 (10:19→22:53)
[2024-12-09] MEDS: METOPROLOL TARTRATE INJ 1 MG/ML AMP 5 ML 2 MG IVP (10:20)
[2024-12-09 10:26] LABS: Troponin I 0.039 ng/mL (0.0-0.045)
--- NOTE | 2024-12-09 10:26 | ESPR_ITS ---
Documentation for date of: 12/09/24 Subjective Subjective Interval history: This 84-year-old male patient with significant medical history for non-verbal, vegetative state, CVA, tracheostomy, PEG tube feed, atrial fibrillation, hypertension, hyperlipidemian and diabetes was brought from our subactue facility for shortness of breath. Patient had episode of stroke in 2019 leading to trach and PEG tube ever since has been subacute resident. Patient was upgraded to ICU due to hypotension with MAP around 55 with blood pressure 66/50 and refractory to IV fluids. He was started on low-dose Levophed for maintaining blood pressure. Rest of the management will be continued with IV antibiotic.Patient is admitted for acute on chronic respiratory failure and sepsis likely due to possible ventilator associated versus aspiration pneumonia. Patient remained persistently hypotensive possible developing distributive versus septic shock required pressor support and was upgraded to ICU. 12/09/2024: Patient was seen and examined at bedside this morning. Overnight patient was on low-dose Levophed until 5:50 AM today and was then taken off the Levophed. This morning patient was tachycardic and tachypneic. His saturation did go up and down between saturating in the low 80s and then mid 90s. ABG done while patient was saturating in the low 80s high 70s showed pH 7.04, PCO2 of 120, and PO2 of 85. Was also noticed that patient has mottling of the right upper extremity around the shoulder to the mid upper extremity and it was cool to touch when compared to the left upper extremity. Chest x-ray also showed what could be some free air under the diaphragm versus fluid distended bowel. Given this physical exam finding we will order chest CTA to rule out any right upper extremity vessel occlusion and to rule out any pulmonary embolism as patient desaturated, was tachycardic, there was some hemoptysis seen on suction. Will also get a abdomen/pelvis CT to rule out any bowel perforation. Broaden patient's antibiotics to meropenem and discontinue cefepime based on past cultures with ESBL. Will get repeat ABG in 20-30 minutes after ventilator changes were made. Exam Vital Signs Temp Pulse Resp BP Pulse Ox O2 Del Method O2 Flow Rate 99.2 F 128 H 36 H 130/83 96 Mechanical Ventilation 40 12/09/24 06:00 12/09/24 10:20 12/09/24 06:46 12/09/24 10:20 12/09/24 06:46 12/09/24 05:00 12/09/24 05:00 FiO2 35 12/09/24 06:24 Narrative Exam General: Nonverbal at baseline, ill-appearing Eyes: Right pupil reactive to light, left pupil cloudy with minimal response to light Ears: No visible ear discharge or bruising Nose: No visible nasal discharge Mouth/Throat: Dry mucous membranes, no redness, no lesions. Neck: Neck supple, no cervical lymphadenopathy appreciated. Lungs: Crackles bilaterally with increased respiratory effort Cardio: Normal S1/S2, irregular rhythm and tachycardic, no murmurs appreciated, no JVD Abdomen: Soft, no palpable masses, peristalsis present, no guarding or rebound. PEG tube in place with no discharge. Extremities: right upper extremity mottling up to mid right upper extremity and cool to touch. Hands were warm to touch and no discoloration noted. trace edema bilaterally, onycholysis on bilateral feet Skin: Sacral ulcer covered by clean wound dressing, mottling of the right upper extremity at the level of the shoulder down to mid right upper extremity and cool to touch. Neuro: Nonverbal at baseline, pupils were reactive but sluggish. Objective Labs 12/10/24 04:32 12/10/24 04:32 Labs: Laboratory Results - last 24 hr 12/08/24 12/08/24 12/08/24 11:55 11:58 12:42 WBC 16.8 H RBC 4.23 L Hgb 12.7 L Hct 38.6 L MCV 91 MCH 30.0 MCHC 32.9 RDW Std Deviation 59.0 H Plt Count 212 D Neut % (Auto) 73 Lymph % (Auto) 18 Dickenson % (Auto) 7 Eos % (Auto) 1 Baso % (Auto) 0 Neut # (Auto) 12.4 H Lymph # (Auto) 3.0 Dickenson # (Auto) 1.1 H Eos # (Auto) 0.1 Baso # (Auto) 0.1 Immature Gran # (Auto) 0.16 H Absolute Nucleated RBC 0.02 H Immature Gran % 1 H Nucleated RBC % 0 PT 11.9 INR 1.1 Puncture Site ABG pH ABG pCO2 ABG pO2 ABG HCO3 ABG O2 Saturation ABG Base Excess VBG pH 7.28 L VBG pCO2 58 H VBG pO2 75 H VBG O2 Sat (Lucinda) 93 L VBG Base Excess -1 FiO2 Sodium 134 L Potassium 5.0 Chloride 99 Carbon Dioxide 28.5 Anion Gap 7 BUN 14 Creatinine 0.6 Estim Creat Clear Calc 88.7 eGFR > 60 BUN/Creatinine Ratio 23 H Glucose 205 H Calculated Osmolality 274 L Lactic Acid 2.7 H Calcium 9.1 Corrected Calcium 9.1 Phosphorus Magnesium Total Bilirubin 1.2 AST 27 ALT 15 Alkaline Phosphatase 120 H Ammonia 54 H Troponin I 0.051 H* B-Natriuretic Peptide 347 H Total Protein 7.8 Albumin 4.0 Globulin 3.8 H Albumin/Globulin Ratio 1.1 L Procalcitonin 0.09 Ur Collection Type Clean Catch Urine Color Yellow Urine Clarity Clear Urine pH 6.0 Ur Specific [place] 1.026 Urine Protein 3+ A Urine Glucose (UA) Negative Urine Ketones Negative Urine Blood 2+ A Urine Nitrite Negative Urine Bilirubin Negative Urine Urobilinogen (Auto) Negative Ur Leukocyte Esterase Negative Urine RBC 12 H Urine WBC 2 Ur Squamous Epith Cells 1 Urine Bacteria 1+ A Hyaline Casts 2 H Ur Culture Indicated? Yes Urine Opiates Screen Negative Urine Fentanyl Screen Negative Ur Barbiturates Screen Negative U Amphetamin/Meth Scrn Negative U Benzodiazepines Scrn Negative U Cocaine Metab Screen Negative U Marijuana (THC) Screen Negative Ethyl Alcohol < 3.0 Blood Type O Positive Antibody Screen NEGATIVE Blood Bank Wristband ID Yes 12/08/24 12/08/24 12/09/24 15:13 21:28 01:30 WBC RBC Hgb Hct MCV MCH MCHC RDW Std Deviation Plt Count Neut % (Auto) Lymph % (Auto) Dickenson % (Auto) Eos % (Auto) Baso % (Auto) Neut # (Auto) Lymph # (Auto) Dickenson # (Auto) Eos # (Auto) Baso # (Auto) Immature Gran # (Auto) Absolute Nucleated RBC Immature Gran % Nucleated RBC % PT INR Puncture Site Left Radial Right Radial ABG pH 7.35 7.32 L ABG pCO2 49 H 50 H ABG pO2 281 H 223 H D ABG HCO3 27 H 26 ABG O2 Saturation 101 H 101 H ABG Base Excess 1 -1 VBG pH VBG pCO2 VBG pO2 VBG O2 Sat (Lucinda) VBG Base Excess FiO2 70 60 Sodium Potassium Chloride Carbon Dioxide Anion Gap BUN Creatinine Estim Creat Clear Calc eGFR BUN/Creatinine Ratio Glucose Calculated Osmolality Lactic Acid 1.6 Calcium Corrected Calcium Phosphorus Magnesium Total Bilirubin AST ALT Alkaline Phosphatase Ammonia Troponin I 0.144 H* B-Natriuretic Peptide Total Protein Albumin Globulin Albumin/Globulin Ratio Procalcitonin Ur Collection Type Urine Color Urine Clarity Urine pH Ur Specific [place] Urine Protein Urine Glucose (UA) Urine Ketones Urine Blood Urine Nitrite Urine Bilirubin Urine Urobilinogen (Auto) Ur Leukocyte Esterase Urine RBC Urine WBC Ur Squamous Epith Cells Urine Bacteria Hyaline Casts Ur Culture Indicated? Urine Opiates Screen Urine Fentanyl Screen Ur Barbiturates Screen U Amphetamin/Meth Scrn U Benzodiazepines Scrn U Cocaine Metab Screen U Marijuana (THC) Screen Ethyl Alcohol Blood Type Antibody Screen Blood Bank Wristband ID 12/09/24 12/09/24 12/09/24 03:26 04:15 05:15 WBC 8.5 D RBC 3.82 L Hgb 11.2 L Hct 35.8 L MCV 94 MCH 29.3 MCHC 31.3 RDW Std Deviation 59.9 H Plt Count 141 D Neut % (Auto) 75 Lymph % (Auto) 13 Dickenson % (Auto) 10 Eos % (Auto) 1 Baso % (Auto) 0 Neut # (Auto) 6.3 Lymph # (Auto) 1.1 Dickenson # (Auto) 0.9 H Eos # (Auto) 0.1 Baso # (Auto) 0.0 Immature Gran # (Auto) 0.08 H Absolute Nucleated RBC 0.00 Immature Gran % 1 H Nucleated RBC % 0 PT INR Puncture Site Right Radial ABG pH 7.39 ABG pCO2 48 ABG pO2 154 H D ABG HCO3 29 H ABG O2 Saturation 100 H ABG Base Excess 3 VBG pH VBG pCO2 VBG pO2 VBG O2 Sat (Lucinda) VBG Base Excess FiO2 40 Sodium 141 Potassium 4.6 4.2 Chloride 105 Carbon Dioxide 28.1 Anion Gap 8 BUN 13 Creatinine 0.6 Estim Creat Clear Calc 88.7 eGFR > 60 BUN/Creatinine Ratio 22 H Glucose 152 H D Calculated Osmolality 284 Lactic Acid Calcium 8.6 Corrected Calcium 9.1 Phosphorus 2.5 Magnesium 1.7 Total Bilirubin 1.0 AST 30 ALT 12 Alkaline Phosphatase 80 D Ammonia Troponin I B-Natriuretic Peptide Total Protein 6.6 Albumin 3.4 D Globulin 3.2 Albumin/Globulin Ratio 1.1 L Procalcitonin Ur Collection Type Urine Color Urine Clarity Urine pH Ur Specific [place] Urine Protein Urine Glucose (UA) Urine Ketones Urine Blood Urine Nitrite Urine Bilirubin Urine Urobilinogen (Auto) Ur Leukocyte Esterase Urine RBC Urine WBC Ur Squamous Epith Cells Urine Bacteria Hyaline Casts Ur Culture Indicated? Urine Opiates Screen Urine Fentanyl Screen Ur Barbiturates Screen U Amphetamin/Meth Scrn U Benzodiazepines Scrn U Cocaine Metab Screen U Marijuana (THC) Screen Ethyl Alcohol Blood Type Antibody Screen Blood Bank Wristband ID 12/09/24 12/09/24 09:38 09:40 WBC RBC Hgb Hct MCV MCH MCHC RDW Std Deviation Plt Count Neut % (Auto) Lymph % (Auto) Dickenson % (Auto) Eos % (Auto) Baso % (Auto) Neut # (Auto) Lymph # (Auto) Dickenson # (Auto) Eos # (Auto) Baso # (Auto) Immature Gran # (Auto) Absolute Nucleated RBC Immature Gran % Nucleated RBC % PT INR Puncture Site Left Radial ABG pH 7.04 L* D ABG pCO2 120 H* D ABG pO2 85 D ABG HCO3 32 H ABG O2 Saturation 91 ABG Base Excess -2 VBG pH VBG pCO2 VBG pO2 VBG O2 Sat (Lucinda) VBG Base Excess FiO2 45 Sodium Potassium Chloride Carbon Dioxide Anion Gap BUN Creatinine Estim Creat Clear Calc eGFR BUN/Creatinine Ratio Glucose Calculated Osmolality Lactic Acid Calcium Corrected Calcium Phosphorus Magnesium Total Bilirubin AST ALT Alkaline Phosphatase Ammonia Troponin I 0.039 B-Natriuretic Peptide Total Protein Albumin Globulin Albumin/Globulin Ratio Procalcitonin Ur Collection Type Urine Color Urine Clarity Urine pH Ur Specific [place] Urine Protein Urine Glucose (UA) Urine Ketones Urine Blood Urine Nitrite Urine Bilirubin Urine Urobilinogen (Auto) Ur Leukocyte Esterase Urine RBC Urine WBC Ur Squamous Epith Cells Urine Bacteria Hyaline Casts Ur Culture Indicated? Urine Opiates Screen Urine Fentanyl Screen Ur Barbiturates Screen U Amphetamin/Meth Scrn U Benzodiazepines Scrn U Cocaine Metab Screen U Marijuana (THC) Screen Ethyl Alcohol Blood Type Antibody Screen Blood Bank Wristband ID ABG Interpretation ABG results: 12/08/24 12/08/24 12/09/24 11:55 21:28 01:30 ABG pH 7.35 7.32 L ABG pCO2 49 H 50 H ABG pO2 281 H 223 H D ABG HCO3 27 H 26 ABG O2 Saturation 101 H 101 H ABG Base Excess 1 -1 VBG pH 7.28 L VBG pCO2 58 H VBG pO2 75 H VBG Base Excess -1 12/09/24 12/09/24 04:15 09:38 ABG pH 7.39 7.04 L* D ABG pCO2 48 120 H* D ABG pO2 154 H D 85 D ABG HCO3 29 H 32 H ABG O2 Saturation 100 H 91 ABG Base Excess 3 -2 VBG pH VBG pCO2 VBG pO2 VBG Base Excess Quality Measures Quality Measures sepsis Current suspected stage: severe sepsis Possible source: pulmonary Blood cultures ordered: completed in ED Antibiotic ordered: Yes Advance care planning discussed with:: child Assessment & Plan Assessment Current Active Medications: Generic Name Dose Route Start Last Admin Trade Name Freq PRN Reason Stop Dose Admin Acetaminophen 650 mg 12/08/24 14:16 Acetaminophen 325 Mg Tablet PO 01/07/25 14:15 Q6H PRN Fever >101.5 Albuterol/Ipratropium 3 ml 12/08/24 23:00 12/09/24 10:23 Albuterol/Ipratropium (Duoneb) Rt Emma 3 Ml Nebu INH 01/07/25 22:59 3 ml Q4HRRT KURT Administration Heparin Sodium (Porcine) 5,000 unit 12/08/24 22:00 12/09/24 05:41 Heparin Sod Inj 5000 Unit/Ml Vial SC 12/22/24 21:59 5,000 unit Q8HR KURT Administration Norepinephrine/Dextrose 8 mg in 250 mls @ 6.906 mls/hr 12/08/24 20:54 12/09/24 05:50 Levophed In D5w 8mg/250ml IV 01/07/25 20:53 0 mcg/kg/min .Q24H PRN 0 mls/hr PER PROTOCOL Titration Protocol 0.05 MCG/KG/MIN Azithromycin 500 mg/ Sodium 250 mls @ 250 mls/hr 12/09/24 14:00 Chloride IV 12/16/24 13:59 [id number] KURT Vancomycin HCl 250 mls @ 120 mls/hr 12/09/24 10:00 12/09/24 10:17 Vancomycin/Water 1250 Mg Ivpb IV 12/16/24 09:59 120 mls/hr Q12H KURT Administration Meropenem 1,000 mg/ Sodium 50 mls @ 100 mls/hr 12/09/24 10:00 12/09/24 10:19 Chloride IV 12/16/24 09:59 100 mls/hr Q8HR KURT Administration Protocol Metoclopramide HCl 10 mg 12/08/24 14:16 Metoclopramide Inj 5 Mg/Ml Vial 2 Ml IVP 01/07/25 14:15 Q6H PRN NAUSEA OR VOMITING Protocol Pharmacy Consult 1 each 12/09/24 09:00 Vancomycin Pharmacy To Dose 1 Each Each IV 01/08/25 08:59 QDAY PRN PROTOCOL Sodium Chloride 3 ml 12/08/24 19:30 12/08/24 20:13 Sodium Chloride Rt Emma 0.9% 3 Ml Nebu INH 01/07/25 19:29 3 ml PRN PRN Administration SOLN Plan This 84-year-old male patient with significant medical history for CVA, tracheostomy, PEG tube, hypertension, hyperlipidemia, A-fib and DM2 who was upgraded to the ICU due to shock #SPARE HAND CARDING #Nonverbal and bedbound #History of CVA ?Stable CVS: #Shock, resolved ?Off pressors at 5:50 AM today #History of A-fib, not rate controlled ? EKG showed A-fib ? [id number] Plan: ? Gave metoprolol 2 mg IV x 1 #NSTEMI type II likely supply demand ischemia, resolved ?Troponins down trended to 0.039 Respiratory #Acute on chronic hypoxic respiratory failure #Community-acquired pneumonia #Respiratory acidosis #Chronic tracheostomy ?ABG today showed pH of 7.04, PCO2 of 120, PO2 of 85 ?Chest x-ray shows vascular congestion and there can be some underlying consolidations on the left base ? Patient has been requiring frequent ventilator changes to maintain oxygen saturation above 90 ?Currently ventilator settings are TV 420, RR 18, FIO2 45%, PEEP 5 ?Patient had a well score of 9 and given multiple risk factors PE should be ruled out Plan: ? Continue vancomycin and azithromycin [12/08/2024?] ? Start patient on meropenem 1000 mg every 8 hours [12/09/2024?] ?Ordered chest CTA to rule out PE ? DuoNebs every 4 hours ? Blood cultures and sputum cultures pending Renal # Lactic acidosis, resolved GI #Possible bowel perforation versus distended bowel #PEG tube feeding ?On chest x-ray it appears that there could be free air under the diaphragm versus distended bowel ? Patient has chronic PEG tube Plan ?Follow-up abdomen/pelvis CT to assess for any perforation ?PEG tube to intermittent suction ? Referral to dietitian #Complicated UTI ?Patient's urinalysis came back positive for bacteria Plan: ? Continuing antibiotics ?Urine culture pending Heme #Leukocytosis #Normocytic anemia ?Hemoglobin 12.7 and WBC 16.8 on admission ? Hemoglobin 11.2 and WBC 8.5 today ? Hemoglobin drop most likely hemodilutional ?No active signs of bleeding Plan: ?Will continue to monitor with daily labs Endo: #DM2 Last A1c 4.9 on February 2024 Plan: ? Q6h bedside glucose checks ID: #Community-acquired PNA #UTI ?Patient has history of ESBL resistance to cefepime in the past ? Urinalysis is significant for pyuria and bacteriuria ? Continue azithromycin 500 mg once daily and vancomycin pharmacy to dose ?Start patient on meropenem 1000 mg every 8 ?Blood cultures and urine cultures pending MSK: #Right upper extremity mottling ?Patient's right upper extremity showed mottling was cool to touch when compared to the left upper extremity Plan: ? Chest CTA to rule out any right upper extremity occlusion Health maintenance: Diet: N.p.o., DVT/PPx: Heparin GI ppx: Protonix Lines: PEG tube, Gibson Code Status: DNR Dispo: ICU due to shock, which has resolved Case disclosed with Attending Dr. Malcolm Smiley PGY1
--- NOTE | 2024-12-09 10:46 | ESPR_ITS ---
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 He has a baseline of nonverbal and vegetative state. He was brought to the ER for tachypnea and increase in WOB along with desats. He was found to have a PNA and admitted to the floor. Overnight he became hypotensive and was given 3lt of IVF , despite this he remained hypotensive and was transferred to the ICU for vasopressor support. He was on Levophed briefly and was weaned off by around 6 AM today. His blood pressure remained stable however he does have intermittent drops of his sats along with increased WOB. Typically he is on blow by with his trach however has required MV. Critical Care Note Critical care time (min.): 48 Exam Vital Signs Temp Pulse Resp BP Pulse Ox O2 Del Method O2 Flow Rate 99.2 F 115 H 35 H 130/83 100 Mechanical Ventilation 40 12/09/24 06:00 12/09/24 10:24 12/09/24 10:24 12/09/24 10:24 12/09/24 10:24 12/09/24 05:00 12/09/24 05:00 FiO2 45 12/09/24 10:24 Narrative Exam Gen- chronically ill appearing, tachypneic, contracted, nonverbal HEENT- NC/AT, mucosa hydrated, sclera anicteric, L pupil with cataract noted, trach in place, significant secretions around trach Chest- coarse breath sounds with some crackles, HRIR, tachycardic and tachypneic, increase in WOB Abd- soft, bowel sounds diminished, no palp organomegaly, PEG in place Ext- mottling of RUE which is also cold to touch, pulses palp, no clubbing, Vent AC VC Physical Exam Completion Physical Exam Complete?: Yes Objective - [employer] Labs 12/10/24 04:32 12/10/24 04:32 Labs: Laboratory Results - last 24 hr 12/08/24 12/08/24 12/08/24 11:55 11:58 12:42 WBC 16.8 H RBC 4.23 L Hgb 12.7 L Hct 38.6 L MCV 91 MCH 30.0 MCHC 32.9 RDW Std Deviation 59.0 H Plt Count 212 D Neut % (Auto) 73 Lymph % (Auto) 18 Howard % (Auto) 7 Eos % (Auto) 1 Baso % (Auto) 0 Neut # (Auto) 12.4 H Lymph # (Auto) 3.0 Howard # (Auto) 1.1 H Eos # (Auto) 0.1 Baso # (Auto) 0.1 Immature Gran # (Auto) 0.16 H Absolute Nucleated RBC 0.02 H Immature Gran % 1 H Nucleated RBC % 0 PT 11.9 INR 1.1 Puncture Site ABG pH ABG pCO2 ABG pO2 ABG HCO3 ABG O2 Saturation ABG Base Excess VBG pH 7.28 L VBG pCO2 58 H VBG pO2 75 H VBG O2 Sat (Lucinda) 93 L VBG Base Excess -1 FiO2 Sodium 134 L Potassium 5.0 Chloride 99 Carbon Dioxide 28.5 Anion Gap 7 BUN 14 Creatinine 0.6 Estim Creat Clear Calc 88.7 eGFR > 60 BUN/Creatinine Ratio 23 H Glucose 205 H Calculated Osmolality 274 L Lactic Acid 2.7 H Calcium 9.1 Corrected Calcium 9.1 Phosphorus Magnesium Total Bilirubin 1.2 AST 27 ALT 15 Alkaline Phosphatase 120 H Ammonia 54 H Troponin I 0.051 H* B-Natriuretic Peptide 347 H Total Protein 7.8 Albumin 4.0 Globulin 3.8 H Albumin/Globulin Ratio 1.1 L Procalcitonin 0.09 Ur Collection Type Clean Catch Urine Color Yellow Urine Clarity Clear Urine pH 6.0 Ur Specific [place] 1.026 Urine Protein 3+ A Urine Glucose (UA) Negative Urine Ketones Negative Urine Blood 2+ A Urine Nitrite Negative Urine Bilirubin Negative Urine Urobilinogen (Auto) Negative Ur Leukocyte Esterase Negative Urine RBC 12 H Urine WBC 2 Ur Squamous Epith Cells 1 Urine Bacteria 1+ A Hyaline Casts 2 H Ur Culture Indicated? Yes Urine Opiates Screen Negative Urine Fentanyl Screen Negative Ur Barbiturates Screen Negative U Amphetamin/Meth Scrn Negative U Benzodiazepines Scrn Negative U Cocaine Metab Screen Negative U Marijuana (THC) Screen Negative Ethyl Alcohol < 3.0 Blood Type O Positive Antibody Screen NEGATIVE Blood Bank Wristband ID Yes 12/08/24 12/08/24 12/09/24 15:13 21:28 01:30 WBC RBC Hgb Hct MCV MCH MCHC RDW Std Deviation Plt Count Neut % (Auto) Lymph % (Auto) Howard % (Auto) Eos % (Auto) Baso % (Auto) Neut # (Auto) Lymph # (Auto) Howard # (Auto) Eos # (Auto) Baso # (Auto) Immature Gran # (Auto) Absolute Nucleated RBC Immature Gran % Nucleated RBC % PT INR Puncture Site Left Radial Right Radial ABG pH 7.35 7.32 L ABG pCO2 49 H 50 H ABG pO2 281 H 223 H D ABG HCO3 27 H 26 ABG O2 Saturation 101 H 101 H ABG Base Excess 1 -1 VBG pH VBG pCO2 VBG pO2 VBG O2 Sat (Lucinda) VBG Base Excess FiO2 70 60 Sodium Potassium Chloride Carbon Dioxide Anion Gap BUN Creatinine Estim Creat Clear Calc eGFR BUN/Creatinine Ratio Glucose Calculated Osmolality Lactic Acid 1.6 Calcium Corrected Calcium Phosphorus Magnesium Total Bilirubin AST ALT Alkaline Phosphatase Ammonia Troponin I 0.144 H* B-Natriuretic Peptide Total Protein Albumin Globulin Albumin/Globulin Ratio Procalcitonin Ur Collection Type Urine Color Urine Clarity Urine pH Ur Specific [place] Urine Protein Urine Glucose (UA) Urine Ketones Urine Blood Urine Nitrite Urine Bilirubin Urine Urobilinogen (Auto) Ur Leukocyte Esterase Urine RBC Urine WBC Ur Squamous Epith Cells Urine Bacteria Hyaline Casts Ur Culture Indicated? Urine Opiates Screen Urine Fentanyl Screen Ur Barbiturates Screen U Amphetamin/Meth Scrn U Benzodiazepines Scrn U Cocaine Metab Screen U Marijuana (THC) Screen Ethyl Alcohol Blood Type Antibody Screen Blood Bank Wristband ID 12/09/24 12/09/24 12/09/24 03:26 04:15 05:15 WBC 8.5 D RBC 3.82 L Hgb 11.2 L Hct 35.8 L MCV 94 MCH 29.3 MCHC 31.3 RDW Std Deviation 59.9 H Plt Count 141 D Neut % (Auto) 75 Lymph % (Auto) 13 Howard % (Auto) 10 Eos % (Auto) 1 Baso % (Auto) 0 Neut # (Auto) 6.3 Lymph # (Auto) 1.1 Howard # (Auto) 0.9 H Eos # (Auto) 0.1 Baso # (Auto) 0.0 Immature Gran # (Auto) 0.08 H Absolute Nucleated RBC 0.00 Immature Gran % 1 H Nucleated RBC % 0 PT INR Puncture Site Right Radial ABG pH 7.39 ABG pCO2 48 ABG pO2 154 H D ABG HCO3 29 H ABG O2 Saturation 100 H ABG Base Excess 3 VBG pH VBG pCO2 VBG pO2 VBG O2 Sat (Lucinda) VBG Base Excess FiO2 40 Sodium 141 Potassium 4.6 4.2 Chloride 105 Carbon Dioxide 28.1 Anion Gap 8 BUN 13 Creatinine 0.6 Estim Creat Clear Calc 88.7 eGFR > 60 BUN/Creatinine Ratio 22 H Glucose 152 H D Calculated Osmolality 284 Lactic Acid Calcium 8.6 Corrected Calcium 9.1 Phosphorus 2.5 Magnesium 1.7 Total Bilirubin 1.0 AST 30 ALT 12 Alkaline Phosphatase 80 D Ammonia Troponin I B-Natriuretic Peptide Total Protein 6.6 Albumin 3.4 D Globulin 3.2 Albumin/Globulin Ratio 1.1 L Procalcitonin Ur Collection Type Urine Color Urine Clarity Urine pH Ur Specific [place] Urine Protein Urine Glucose (UA) Urine Ketones Urine Blood Urine Nitrite Urine Bilirubin Urine Urobilinogen (Auto) Ur Leukocyte Esterase Urine RBC Urine WBC Ur Squamous Epith Cells Urine Bacteria Hyaline Casts Ur Culture Indicated? Urine Opiates Screen Urine Fentanyl Screen Ur Barbiturates Screen U Amphetamin/Meth Scrn U Benzodiazepines Scrn U Cocaine Metab Screen U Marijuana (THC) Screen Ethyl Alcohol Blood Type Antibody Screen Blood Bank Wristband ID 12/09/24 12/09/24 09:38 09:40 WBC RBC Hgb Hct MCV MCH MCHC RDW Std Deviation Plt Count Neut % (Auto) Lymph % (Auto) Howard % (Auto) Eos % (Auto) Baso % (Auto) Neut # (Auto) Lymph # (Auto) Howard # (Auto) Eos # (Auto) Baso # (Auto) Immature Gran # (Auto) Absolute Nucleated RBC Immature Gran % Nucleated RBC % PT INR Puncture Site Left Radial ABG pH 7.04 L* D ABG pCO2 120 H* D ABG pO2 85 D ABG HCO3 32 H ABG O2 Saturation 91 ABG Base Excess -2 VBG pH VBG pCO2 VBG pO2 VBG O2 Sat (Lucinda) VBG Base Excess FiO2 45 Sodium Potassium Chloride Carbon Dioxide Anion Gap BUN Creatinine Estim Creat Clear Calc eGFR BUN/Creatinine Ratio Glucose Calculated Osmolality Lactic Acid Calcium Corrected Calcium Phosphorus Magnesium Total Bilirubin AST ALT Alkaline Phosphatase Ammonia Troponin I 0.039 B-Natriuretic Peptide Total Protein Albumin Globulin Albumin/Globulin Ratio Procalcitonin Ur Collection Type Urine Color Urine Clarity Urine pH Ur Specific [place] Urine Protein Urine Glucose (UA) Urine Ketones Urine Blood Urine Nitrite Urine Bilirubin Urine Urobilinogen (Auto) Ur Leukocyte Esterase Urine RBC Urine WBC Ur Squamous Epith Cells Urine Bacteria Hyaline Casts Ur Culture Indicated? 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 ileus- significant gas seen on CXR with dilated loops of bowel, PEG placed to LIS - fu with CT abd Endo stable Heme Leukocytosis- improved Anemia- near baseline DVT proph- heparin [id number] ID PNA- on abx Sepsis - cx taken and pending, on abx, poss source lungs and urine case d/w ICU team labs, imaging records reviewed ~48ccmin required for eval, exam, review, intervention, discussion and formulation of POC for this critically ill pt with acute/chronic hypoxic resp failure at high risk for further and ongoing decompensation Provider Notation Provider Notation: Although this document has been carefully reviewed, there may still be some phonetic and other typographical errors. These errors are purely grammatical due to imperfections in the software program and should not be construed in any way to compromise the substance of the patient's medical care during this visit. Thank you for the opportunity and privilege in assisting you with this patient's care and management.
[2024-12-09 11:12] LABS: Base Excess 1 (-3-3); HCO3 30 mEq/L (20-26); O2 Saturation 98 % (91-98); PCO2 76 mmHg (32.0-48.0); PO2 102 mmHg (83-108); pH, Arterial 7.21 (7.35-7.45)
[2024-12-09 11:13] LABS: Allen Test Performed/OK; Inspired Oxygen, FIO2 45 %; Puncture Site Left Radial
[2024-12-09] MEDS: HYDROmorphone INJ 2 MG/ML VIAL 1 MG IVP (12:10)
--- NOTE | 2024-12-09 12:16 | XR_ITS ---
Examination: Abdomen AP single view Technique: AP portable supine abdomen, single view Exam date and time: 12/09/2024 12:31 PM COMPARISON: 04/05/2019 INDICATION: Abdominal distention. COMPARISON: None. FINDINGS: Multiple dilated air-filled loops of small bowel are seen through the mid abdomen measuring up to 4 cm in size. Scattered air and fecal material seen in the colon. No evidence of abnormal calcifications or definitive intra-abdominal masses. IMPRESSION: Dilated air-filled loops of small bowel measuring up to 4 cm. Air seen within the colon. Differential diagnosis includes developing/partial small bowel obstruction versus ileus. Follow-up imaging is recommended.
[2024-12-09] MEDS: ROCURONIUM INJ 10 MG/ML VIAL 10 ML 70 MG IV (13:00)
[2024-12-09 13:23] LABS: Lactate (Lactic Acid) 1.7 mMol/L (0.4-2.0)
[2024-12-09] MEDS: VASOPRESSIN IN NS IVPB 20 UNIT/100 ML BAG 9 UNIT IV ×2 (13:29→19:55)
[2024-12-09] MEDS: MIDAZOLAM INJ 1 MG/ML VIAL 2 ML IV (13:38)
[2024-12-09] MEDS: AZITHROMYCIN INJ 500 MG in SODIUM CHLORIDE 0.9% 250 ML 250 ML 250 MG IV (14:00)
[2024-12-09] MEDS: DEXMEDETOMIDINE 200 MCG IVPB 200 MCG/50 ML BOTTLE 18.416 MCG IV ×2 (14:07→16:14)
--- NOTE | 2024-12-09 14:54 | XR_ITS ---
Examination: Chest, AP, portable, single view post procedure. Technique: Chest, AP upright, portable, single view Date and time: 12/09/2024, 3:00 PM INDICATION: Postcentral line placement. COMPARISON: Earlier today. FINDINGS: Interval placement of left IJ central venous catheter with distal tip in the right atrium. No evidence of pneumothorax. No other interval changes. Impression: Left IJ catheter placement as above. No pneumothorax
--- NOTE | 2024-12-09 15:34 | PC.RT ---
Pt is having central and femoral line placed at this time so breathing treatment was not given
--- NOTE | 2024-12-09 16:05 | PD.RESPROC ---
Procedures Procedure Date / Time 12/09/24 1545 Procedural Time Out Time out performed: 1508 Arterial Line Indication(s): frequent arterial line sampling and shock Informed consent obtained: obtained from surrogate decision maker Time out done, and the following verified: correct patient, side and site, procedure, patient position and implants and/or equipment Size (Gauge): 20 Technique used: guide wire technique Post-Procedure: line sutured into place and dry sterile dressing placed Patient tolerated procedure: well EBL(ml): 2 Complications: none Site: right and radial Procedure comment: Attending note: I supervised taylor aspects of the procedure
--- NOTE | 2024-12-09 16:06 | PD.RESPROC ---
Procedures Procedure Date / Time 12/09/24 1430 Procedural Time Out Time out performed: 1400 Arterial Line Size (Gauge): 20 Central Line Placement Left IJ: Indication(s): shock and poor, or inadequate peripheral venous access Informed consent obtained: obtained from surrogate decision maker Time out done, and the following verified: correct patient, side and site, procedure, patient position and implants and/or equipment Patient placed on monitor/pulse ox: Yes Hand Hygiene: scrub, soap & water and alcohol-based hand rub Max Sterile Barrier Techniques used: cap, mask, sterile gown, sterile gloves and sterile full body drape Central line prep: Chlorhexidine scrub and sterile drapes applied Local anesthesia used: lidocaine 1% Amount of anesthesia used (mL): 3 Ultrasound used for placement: Yes Sterile Technique if Ultrasound used, including sterile gel: yes Central line lumen inserted: triple Post procedure: sutured in place, good blood return, all ports aspirated, flushed, capped and sterile dressing applied Post procedure x-ray: tip of catheter in good position and no pneumothorax seen Patient tolerated procedure: well EBL(ml): 1 Complications: none
[2024-12-09 17:38] LABS: Basophils % (Auto) 0 % (0-2.5); Eosinophils % (Auto) 0 % (0-10); Hematocrit 31.8 % (41.0-53.0); Hemoglobin 10.2 g/dL (13.5-16.0); Immature Granulocytes % (Auto) 1 % (0-0); Immature Granulocytes Auto 0.05 Thou/mm3 (0.00-0.00); Lymphocytes # (Auto) 0.3 Thou/mm3 (1.0-4.8); Lymphocytes % (Auto) 4 % (10-50); Mean Corpuscular HGB Conc 32.1 g/dl (31.0-37.0); Mean Corpuscular Hemoglobin 29.7 pg (25.0-35.0); Mean Corpuscular Volume 92 fL (80-100); Monocytes # (Auto) 0.4 Thou/mm3 (0.0-0.8); Monocytes % (Auto) 5 % (0-12); Neutrophils # (Auto) 7.9 Thou/mm3 (1.8-7.7); Neutrophils % (Auto) 91 % (37-80); Nucleated Red Blood Cell % 0 /100 WBC (0); Platelet Count 170 Thou/mm3 (140-440); RDW Standard Deviation 56.4 fL (35.1-43.9); Red Blood Count 3.44 Miln/mm3 (4.50-5.90); White Blood Count 8.6 Thou/mm3 (3.8-10.6)
[2024-12-09 18:08] LABS: Albumin, Serum 3.4 gm/dL (3.4-4.8); Albumin/Globulin Ratio 1.1 (1.2-2.2); Alkaline Phosphatase 78 U/L (46-116); Anion Gap 7 (7-16); Aspartate Amino Transferase 20 U/L (0-34); BUN/Creatinine Ratio 28 Ratio (12-20); Bilirubin,Total 0.9 mg/dL (0.3-1.2); Blood Urea Nitrogen 14 mg/dL (9-23); Calcium 8.5 mg/dL (8.3-10.6); Carbon Dioxide 27.9 mMol/L (20.0-31.0); Chloride 105 mMol/L (98-107); Creatine Kinase 68 U/L (34-171); Creatinine (Component) 0.5 mg/dL (0.6-1.3); Estimated Creatinine Clearance 106.4 mL/min (>60); Glucose 205 mg/dL (74-106); Osmolality,Calculated 285 (275-295); Potassium 4.8 mMol/L (3.4-5.1); Sodium 140 mMol/L (136-145); Total Protein 6.4 gm/dL (5.7-8.2); eGFR > 60 See Note
[2024-12-09 18:09] LABS: Alanine Aminotransferase 10 U/L (10-49)
[2024-12-09] MEDS: ACETYLCYSTEINE RT SOL 10% 4 ML NEBU 3 ML INH ×2 (18:52→22:34)
[2024-12-09] MEDS: DEXMEDETOMIDINE 200 MCG IVPB 200 MCG/50 ML BOTTLE 14.733 MCG IV (19:50)
[2024-12-10] VITALS (91 sets, daily range): BP systolic 77–192; BP diastolic 42–104; PULSE 49–139; RESP 0–34; TEMP 35.8–37.4; O2SAT 86–100
[2024-12-10] MEDS: DEXMEDETOMIDINE 200 MCG IVPB 200 MCG/50 ML BOTTLE 11.049 MCG IV (00:26)
[2024-12-10] MEDS: ACETYLCYSTEINE RT SOL 10% 4 ML NEBU 3 ML INH ×6 (02:03→22:20)
[2024-12-10] MEDS: ALBUTEROL/IPRATROPIUM (Duoneb) RT SOL 3 ML NEBU INH ×6 (02:03→22:20)
[2024-12-10 05:02] LABS: Base Excess 6 (-3-3); HCO3 31 mEq/L (20-26); Inspired Oxygen, FIO2 40 %; O2 Saturation 100 % (91-98); PCO2 51 mmHg (32.0-48.0); PO2 130 mmHg (83-108)
[2024-12-10 05:09] LABS: Allen Test Not Performed; Puncture Site Arterial Line
[2024-12-10] MEDS: DEXMEDETOMIDINE 200 MCG IVPB 200 MCG/50 ML BOTTLE 7.366 MCG IV (05:30)
[2024-12-10 05:58] LABS: Basophils % (Auto) 0 % (0-2.5); Eosinophils % (Auto) 0 % (0-10); Hematocrit 27.6 % (41.0-53.0); Hemoglobin 8.9 g/dL (13.5-16.0); Immature Granulocytes % (Auto) 1 % (0-0); Immature Granulocytes Auto 0.02 Thou/mm3 (0.00-0.00); Lymphocytes # (Auto) 0.2 Thou/mm3 (1.0-4.8); Lymphocytes % (Auto) 7 % (10-50); Mean Corpuscular HGB Conc 32.2 g/dl (31.0-37.0); Mean Corpuscular Hemoglobin 29.5 pg (25.0-35.0); Mean Corpuscular Volume 91 fL (80-100); Monocytes # (Auto) 0.1 Thou/mm3 (0.0-0.8); Monocytes % (Auto) 3 % (0-12); Neutrophils # (Auto) 3.2 Thou/mm3 (1.8-7.7); Neutrophils % (Auto) 90 % (37-80); Nucleated Red Blood Cell % 0 /100 WBC (0); Platelet Count 114 Thou/mm3 (140-440); RDW Standard Deviation 54.7 fL (35.1-43.9); Red Blood Count 3.02 Miln/mm3 (4.50-5.90); White Blood Count 3.5 Thou/mm3 (3.8-10.6)
--- NOTE | 2024-12-10 06:00 | XR_ITS ---
Examination: AP chest single view Technique one AP portable semiupright chest single view Exam date and time: December 11, 2023 1734 hrs. Comparison December 09, 2024 Indications: Difficulty breathing this week. Findings: More prominent bibasilar pneumonia on the current study, consider aspiration Mild heart failure, mild to moderate enlargement cardiac contour with prominent vascular congestion Tracheostomy tube tip 6.1 cm above carlo Left internal jugular central line tip SVC Impression: More prominent bibasilar pneumonia, consider aspiration pneumonia Mild heart failure
[2024-12-10] MEDS: MEROPENEM INJ 1,000 MG in SODIUM CHLORIDE 0.9% (Popper) 50 ML 100 MG IV ×3 (06:09→21:44)
[2024-12-10] MEDS: HEPARIN SOD INJ 5000 UNIT/ML VIAL SC ×3 (06:10→21:46)
[2024-12-10 06:33] LABS: Albumin, Serum 3.1 gm/dL (3.4-4.8); Albumin/Globulin Ratio 1.1 (1.2-2.2); Alkaline Phosphatase 67 U/L (46-116); Anion Gap 7 (7-16); Aspartate Amino Transferase 15 U/L (0-34); BUN/Creatinine Ratio 35 Ratio (12-20); Bilirubin,Total 0.6 mg/dL (0.3-1.2); Blood Urea Nitrogen 14 mg/dL (9-23); Calcium 8.6 mg/dL (8.3-10.6); Calcium (Corrected) 9.3 mg/dL (8.5-10.1); Carbon Dioxide 28.8 mMol/L (20.0-31.0); Chloride 106 mMol/L (98-107); Creatinine (Component) 0.4 mg/dL (0.6-1.3); Globulin 2.9 gm/dL (2.3-3.5); Glucose 195 mg/dL (74-106); Magnesium 1.8 mg/dL (1.6-2.6); Osmolality,Calculated 288 (275-295); Potassium 4.1 mMol/L (3.4-5.1); Sodium 142 mMol/L (136-145); eGFR > 60 See Note
[2024-12-10 06:35] LABS: Alanine Aminotransferase 8 U/L (10-49)
--- NOTE | 2024-12-10 08:31 | ESPR_ITS ---
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 He has a baseline of nonverbal and vegetative state. He was brought to the ER for tachypnea and increase in WOB along with desats. He was found to have a PNA and admitted to the floor. Overnight he became hypotensive and was given 3lt of IVF , despite this he remained hypotensive and was transferred to the ICU for vasopressor support. He was on Levophed briefly and was weaned off by around 6 AM today. His blood pressure remained stable however he does have intermittent drops of his sats along with increased WOB. Typically he is on blow by with his trach however has required MV. 12/10- overnight good UOP, afebrile, high PIP with plat <30 and desaturation requiring 1x ok after which there was improvement in lung mechanics. did require vasopressors yesterday likely due to meds given and is off this AM Critical Care Note Critical care time (min.): 50 Exam Vital Signs Temp Pulse Resp BP Pulse Ox O2 Del Method O2 Flow Rate 97.2 F 71 33 H 117/55 L 97 Mechanical Ventilation 40 12/10/24 04:01 12/10/24 07:30 12/10/24 06:45 12/10/24 07:30 12/10/24 07:30 12/10/24 04:01 12/09/24 05:00 FiO2 35 12/10/24 06:45 Narrative Exam Gen- chronically ill appearing, contracted, vegetative state, nonverbal HEENT- NC/AT, mucosa hydrated, trach in place Chest- few post crackles, diminished breath sounds, HRIR, tachypneic, intermittent increase in WOB Abd- firm, no grimace on deep palp, bowel sounds diminished Ext- min edema, pulses palp, mottling of RUE has resolved, bruising Vent PRVC Drips precedex Physical Exam Completion Physical Exam Complete?: Yes 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 Labs 12/10/24 04:32 12/10/24 04:32 Labs: Laboratory Results - last 24 hr 12/09/24 12/09/24 12/09/24 09:38 09:40 11:03 WBC RBC Hgb Hct MCV MCH MCHC RDW Std Deviation Plt Count Neut % (Auto) Lymph % (Auto) [place] % (Auto) Eos % (Auto) Baso % (Auto) Neut # (Auto) Lymph # (Auto) [place] # (Auto) Eos # (Auto) Baso # (Auto) Immature Gran # (Auto) Absolute Nucleated RBC Immature Gran % Nucleated RBC % Puncture Site Left Radial Left Radial ABG pH 7.04 L* D 7.21 L D ABG pCO2 120 H* D 76 H* D ABG pO2 85 D 102 ABG HCO3 32 H 30 H ABG O2 Saturation 91 98 ABG Base Excess -2 1 FiO2 45 45 Sodium Potassium Chloride Carbon Dioxide Anion Gap BUN Creatinine Estim Creat Clear Calc eGFR BUN/Creatinine Ratio Glucose Calculated Osmolality Lactic Acid Calcium Corrected Calcium Phosphorus Magnesium Total Bilirubin AST ALT Alkaline Phosphatase Total Creatine Kinase Troponin I 0.039 Total Protein Albumin Globulin Albumin/Globulin Ratio 12/09/24 12/09/24 12/10/24 13:15 17:30 04:32 WBC 8.6 3.5 L D RBC 3.44 L 3.02 L Hgb 10.2 L 8.9 L Hct 31.8 L 27.6 L MCV 92 91 MCH 29.7 29.5 MCHC 32.1 32.2 RDW Std Deviation 56.4 H 54.7 H Plt Count 170 D 114 L D Neut % (Auto) 91 H 90 H Lymph % (Auto) 4 L 7 L [place] % (Auto) 5 3 Eos % (Auto) 0 0 Baso % (Auto) 0 0 Neut # (Auto) 7.9 H 3.2 Lymph # (Auto) 0.3 L 0.2 L [place] # (Auto) 0.4 0.1 Eos # (Auto) 0.0 0.0 Baso # (Auto) 0.0 0.0 Immature Gran # (Auto) 0.05 H 0.02 H Absolute Nucleated RBC 0.00 0.00 Immature Gran % 1 H 1 H Nucleated RBC % 0 0 Puncture Site ABG pH ABG pCO2 ABG pO2 ABG HCO3 ABG O2 Saturation ABG Base Excess FiO2 Sodium 140 142 Potassium 4.8 D 4.1 D Chloride 105 106 Carbon Dioxide 27.9 28.8 Anion Gap 7 7 BUN 14 14 Creatinine 0.5 L 0.4 L Estim Creat Clear Calc 106.4 133.0 eGFR > 60 > 60 BUN/Creatinine Ratio 28 H 35 H Glucose 205 H D 195 H Calculated Osmolality 285 288 Lactic Acid 1.7 Calcium 8.5 8.6 Corrected Calcium 9.0 9.3 Phosphorus 2.0 L Magnesium 1.8 Total Bilirubin 0.9 0.6 AST 20 15 ALT 10 8 L Alkaline Phosphatase 78 67 Total Creatine Kinase 68 Troponin I Total Protein 6.4 6.0 Albumin 3.4 3.1 L Globulin 3.0 2.9 Albumin/Globulin Ratio 1.1 L 1.1 L 12/10/24 04:53 WBC RBC Hgb Hct MCV MCH MCHC RDW Std Deviation Plt Count Neut % (Auto) Lymph % (Auto) [place] % (Auto) Eos % (Auto) Baso % (Auto) Neut # (Auto) Lymph # (Auto) [place] # (Auto) Eos # (Auto) Baso # (Auto) Immature Gran # (Auto) Absolute Nucleated RBC Immature Gran % Nucleated RBC % Puncture Site Arterial Line ABG pH 7.40 D ABG pCO2 51 H D ABG pO2 130 H D ABG HCO3 31 H ABG O2 Saturation 100 H ABG Base Excess 6 H FiO2 40 Sodium Potassium Chloride Carbon Dioxide Anion Gap BUN Creatinine Estim Creat Clear Calc eGFR BUN/Creatinine Ratio Glucose Calculated Osmolality Lactic Acid Calcium Corrected Calcium Phosphorus Magnesium Total Bilirubin AST ALT Alkaline Phosphatase Total Creatine Kinase Troponin I Total Protein Albumin Globulin Albumin/Globulin Ratio Assessment & Plan Additional Plan Additional Plan: In summary this is an 84-year-old gentleman admitted to the ICU for septic shock and acute on chronic respiratory failure a/p [place] 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, appears to be at baseline CV Afib c RVR- trial metoprolol and if no response attempt diltiazem - started on PO metoprolol Shock- resolved - pt does still have motling of RUE which is also cold to touch-> resolved today Tropinemia- 2/2 demand ischemia and trended back down Resp Acute/chronic hypoxic resp failure- on AC VC , fu with ABG and CXR, ween as able - CO2 retention noted on ABG and vent adjustements made - 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 These errors are purely grammatical due to imperfections in the software program and should not be construed in any way to compromise the substance of the patient's medical care during this visit. Thank you for the opportunity and privilege in assisting you with this patient's care and management.
[2024-12-10 09:20] LABS: Vancomycin,Trough 17.4 mcg/mL (5.0-10.0)
[2024-12-10 09:44] LABS: Base Excess 3 (-3-3); HCO3 31 mEq/L (20-26); Inspired Oxygen, FIO2 40 %; O2 Saturation 76 % (91-98); PCO2 68 mmHg (32.0-48.0); PO2 94 mmHg (83-108); pH, Arterial 7.28 (7.35-7.45)
[2024-12-10 09:45] LABS: Allen Test Not Performed; Puncture Site Arterial Line
[2024-12-10] MEDS: LIDOCAINE HCL 1% 20 ML VIAL 5 ML INFL (10:45)
[2024-12-10] MEDS: POT PHOS 15 mMol in NS 250 ML 15 MMOL/250 ML BAG 62.5 MMOL IV (11:55)
[2024-12-10] MEDS: Magnesium Sulfate 2 GM Ivpb 2 GM/50 ML BAG IV (11:55)
[2024-12-10] MEDS: FUROSEMIDE INJ 10 MG/ML 4ML VIAL 40 MG IVP (11:59)
--- NOTE | 2024-12-10 12:07 | PD.INTPROC ---
Procedures Procedure Date / Time 12/10/24 1207 Arterial Line Size (Gauge): 20 Bronchoscopy Bronscopy indication(s): removal of secretions Informed consent obtained from: surrogate Time out done and the following verified: correct patient, side and site, procedure and patient position Oxygen delivery: via mechanical vent. Trachea: other (tracheal mass right under trach which appears to be intermittently occluding trach) Melanie: sharp in angle RUL & subsegmental branches: mucosa appears normal RML & subsegmental branches: mucosa appears normal RLL & subsegmental branches: mucosa appears normal SHELLY & subsegmental branches: mucosa appears normal LLL & subsegmental branches: mucosa appears normal EBL: 0 Patient tolerated procedure: well Complications: No
[2024-12-10] MEDS: VANCOMYCIN/WATER 1250 MG IVPB 250 ML 120 MG IV ×2 (12:18→21:44)
--- NOTE | 2024-12-10 12:29 | ESPR_ITS ---
Documentation for date of: 12/10/24 Subjective Subjective Interval history: This 84-year-old male patient with significant medical history for non-verbal, vegetative state, CVA, tracheostomy, PEG tube feed, atrial fibrillation, hypertension, hyperlipidemian and diabetes was brought from our subactue facility for shortness of breath. Patient had episode of stroke in 2019 leading to trach and PEG tube ever since has been subacute resident. Patient was upgraded to ICU due to hypotension with MAP around 55 with blood pressure 66/50 and refractory to IV fluids. He was started on low-dose Levophed for maintaining blood pressure. Rest of the management will be continued with IV antibiotic.Patient is admitted for acute on chronic respiratory failure and sepsis likely due to possible ventilator associated versus aspiration pneumonia. Patient remained persistently hypotensive possible developing distributive versus septic shock required pressor support and was upgraded to ICU. 12/09/2024: Patient was seen and examined at bedside this morning. Overnight patient was on low-dose Levophed until 5:50 AM today and was then taken off the Levophed. This morning patient was tachycardic and tachypneic. His saturation did go up and down between saturating in the low 80s and then mid 90s. ABG done while patient was saturating in the low 80s high 70s showed pH 7.04, PCO2 of 120, and PO2 of 85. Was also noticed that patient has mottling of the right upper extremity around the shoulder to the mid upper extremity and it was cool to touch when compared to the left upper extremity. Chest x-ray also showed what could be some free air under the diaphragm versus fluid distended bowel. Given this physical exam finding we will order chest CTA to rule out any right upper extremity vessel occlusion and to rule out any pulmonary embolism as patient desaturated, was tachycardic, there was some hemoptysis seen on suction. Will also get a abdomen/pelvis CT to rule out any bowel perforation. Broaden patient's antibiotics to meropenem and discontinue cefepime based on past cultures with ESBL. Will get repeat ABG in 20-30 minutes after ventilator changes were made. 12/10/2024: Patient seen and examined at bedside this morning. No acute overnight events. Patient was taken off vasopressors yesterday around 11 PM and has since then not requiring any vasopressors at this time. Patient again desaturated today and was noted to have hypercapnia on ABG. Concern for bronchoscopy was taken and patient underwent bronchoscopy. On bronchoscopy there was a tracheal mass noted right below tracheostomy. This could be the reason for patient's desaturation episodes that quickly resolved. At this time patient will need transfer to a tertiary care center for either thoracic surgeon or behavioral modification assistant that could biopsy or excise the mass. On the chest x-ray patient appeared to have some pulmonary edema therefore 40 Lasix x 1 was given today. Patient was also noted to have hypophosphatemia therefore repleted this as well as magnesium. It was also noted that patient had a drop in hemoglobin to 8.9 today, but on repeat it was 10.6. Still pending echo. Exam Vital Signs Temp Pulse Resp BP Pulse Ox O2 Del Method O2 Flow Rate 97.2 F 79 32 H 94/50 L 99 Mechanical Ventilation 40 12/10/24 04:01 12/10/24 11:59 12/10/24 11:47 12/10/24 11:59 12/10/24 11:47 12/10/24 04:01 12/09/24 05:00 FiO2 40 12/10/24 11:47 Narrative Exam General: Nonverbal at baseline, ill-appearing Eyes: Right pupil reactive to light, left pupil cloudy with minimal response to light Ears: No visible ear discharge or bruising Nose: No visible nasal discharge Mouth/Throat: Dry mucous membranes, no redness, no lesions. Neck: Neck supple, no cervical lymphadenopathy appreciated. Lungs: Crackles bilaterally Cardio: Normal S1/S2, irregular rhythm and tachycardic, no murmurs appreciated, no JVD Abdomen: Soft, no palpable masses, peristalsis present, no guarding or rebound. PEG tube in place with no discharge. Extremities: right upper extremity mottling not noted today. Hands were warm to touch and no discoloration noted. trace edema bilaterally, onycholysis on bilateral feet Skin: Sacral ulcer covered by clean wound dressing, mottling of the right upper extremity at the level of the shoulder down to mid right upper extremity and cool to touch. Neuro: Nonverbal at baseline, pupils were reactive but sluggish. Objective Labs 12/10/24 12:33 12/10/24 04:32 Labs: Laboratory Results - last 24 hr 12/09/24 12/09/24 12/10/24 13:15 17:30 04:32 WBC 8.6 3.5 L D RBC 3.44 L 3.02 L Hgb 10.2 L 8.9 L Hct 31.8 L 27.6 L MCV 92 91 MCH 29.7 29.5 MCHC 32.1 32.2 RDW Std Deviation 56.4 H 54.7 H Plt Count 170 D 114 L D Neut % (Auto) 91 H 90 H Lymph % (Auto) 4 L 7 L Glasscock % (Auto) 5 3 Eos % (Auto) 0 0 Baso % (Auto) 0 0 Neut # (Auto) 7.9 H 3.2 Lymph # (Auto) 0.3 L 0.2 L Glasscock # (Auto) 0.4 0.1 Eos # (Auto) 0.0 0.0 Baso # (Auto) 0.0 0.0 Immature Gran # (Auto) 0.05 H 0.02 H Absolute Nucleated RBC 0.00 0.00 Immature Gran % 1 H 1 H Nucleated RBC % 0 0 Puncture Site ABG pH ABG pCO2 ABG pO2 ABG HCO3 ABG O2 Saturation ABG Base Excess FiO2 Sodium 140 142 Potassium 4.8 D 4.1 D Chloride 105 106 Carbon Dioxide 27.9 28.8 Anion Gap 7 7 BUN 14 14 Creatinine 0.5 L 0.4 L Estim Creat Clear Calc 106.4 133.0 eGFR > 60 > 60 BUN/Creatinine Ratio 28 H 35 H Glucose 205 H D 195 H Calculated Osmolality 285 288 Lactic Acid 1.7 Calcium 8.5 8.6 Corrected Calcium 9.0 9.3 Phosphorus 2.0 L Magnesium 1.8 Total Bilirubin 0.9 0.6 AST 20 15 ALT 10 8 L Alkaline Phosphatase 78 67 Total Creatine Kinase 68 Total Protein 6.4 6.0 Albumin 3.4 3.1 L Globulin 3.0 2.9 Albumin/Globulin Ratio 1.1 L 1.1 L Vancomycin Trough 12/10/24 12/10/24 12/10/24 04:53 08:45 09:34 WBC RBC Hgb Hct MCV MCH MCHC RDW Std Deviation Plt Count Neut % (Auto) Lymph % (Auto) Glasscock % (Auto) Eos % (Auto) Baso % (Auto) Neut # (Auto) Lymph # (Auto) Glasscock # (Auto) Eos # (Auto) Baso # (Auto) Immature Gran # (Auto) Absolute Nucleated RBC Immature Gran % Nucleated RBC % Puncture Site Arterial Line Arterial Line ABG pH 7.40 D 7.28 L D ABG pCO2 51 H D 68 H D ABG pO2 130 H D 94 D ABG HCO3 31 H 31 H ABG O2 Saturation 100 H 76 L ABG Base Excess 6 H 3 FiO2 40 40 Sodium Potassium Chloride Carbon Dioxide Anion Gap BUN Creatinine Estim Creat Clear Calc eGFR BUN/Creatinine Ratio Glucose Calculated Osmolality Lactic Acid Calcium Corrected Calcium Phosphorus Magnesium Total Bilirubin AST ALT Alkaline Phosphatase Total Creatine Kinase Total Protein Albumin Globulin Albumin/Globulin Ratio Vancomycin Trough 17.4 H ABG Interpretation ABG results: 12/08/24 12/08/24 12/09/24 11:55 21:28 01:30 ABG pH 7.35 7.32 L ABG pCO2 49 H 50 H ABG pO2 281 H 223 H D ABG HCO3 27 H 26 ABG O2 Saturation 101 H 101 H ABG Base Excess 1 -1 VBG pH 7.28 L VBG pCO2 58 H VBG pO2 75 H VBG Base Excess -1 12/09/24 12/09/24 12/09/24 04:15 09:38 11:03 ABG pH 7.39 7.04 L* D 7.21 L D ABG pCO2 48 120 H* D 76 H* D ABG pO2 154 H D 85 D 102 ABG HCO3 29 H 32 H 30 H ABG O2 Saturation 100 H 91 98 ABG Base Excess 3 -2 1 VBG pH VBG pCO2 VBG pO2 VBG Base Excess 12/10/24 12/10/24 04:53 09:34 ABG pH 7.40 D 7.28 L D ABG pCO2 51 H D 68 H D ABG pO2 130 H D 94 D ABG HCO3 31 H 31 H ABG O2 Saturation 100 H 76 L ABG Base Excess 6 H 3 VBG pH VBG pCO2 VBG pO2 VBG Base Excess Quality Measures Quality Measures sepsis Current suspected stage: sepsis Possible source: pulmonary Blood cultures ordered: completed in ED Antibiotic ordered: Yes Advance care planning discussed with:: child Assessment & Plan Assessment Current Active Medications: Generic Name Dose Route Start Last Admin Trade Name Freq PRN Reason Stop Dose Admin Acetaminophen 650 mg 12/08/24 14:16 Acetaminophen 325 Mg Tablet PO 01/07/25 14:15 Q6H PRN Fever >101.5 Acetylcysteine 3 ml 12/09/24 15:00 12/10/24 11:44 Acetylcysteine Rt Emma 10% 4 Ml Nebu INH 01/08/25 14:59 3 ml Q4HRRT KURT Administration Albuterol/Ipratropium 3 ml 12/08/24 23:00 12/10/24 11:43 Albuterol/Ipratropium (Duoneb) Rt Emma 3 Ml Nebu INH 01/07/25 22:59 3 ml Q4HRRT KURT Administration Heparin Sodium (Porcine) 5,000 unit 12/08/24 22:00 12/10/24 06:10 Heparin Sod Inj 5000 Unit/Ml Vial SC 12/22/24 21:59 5,000 unit Q8HR KURT Administration Norepinephrine/Dextrose 8 mg in 250 mls @ 6.906 mls/hr 12/08/24 20:54 12/10/24 11:54 Levophed In D5w 8mg/250ml IV 01/07/25 20:53 0.05 mcg/kg/min .Q24H PRN 6.906 mls/hr PER PROTOCOL Titration Protocol 0.05 MCG/KG/MIN Azithromycin 500 mg/ Sodium 250 mls @ 250 mls/hr 12/09/24 14:00 12/09/24 14:00 Chloride IV 12/16/24 13:59 250 mls/hr QDAY@1400 KURT Administration Vancomycin HCl 250 mls @ 120 mls/hr 12/09/24 10:00 12/10/24 12:18 Vancomycin/Water 1250 Mg Ivpb IV 12/16/24 09:59 120 mls/hr Q12H KURT Administration Meropenem 1,000 mg/ Sodium 50 mls @ 100 mls/hr 12/09/24 10:00 12/10/24 06:09 Chloride IV 12/16/24 09:59 100 mls/hr Q8HR KURT Administration Protocol Dexmedetomidine/Sodium Chloride 200 mcg in 50 mls @ 3.683 mls/hr 12/09/24 12:11 12/10/24 06:00 Precedex Ivpb IV 01/08/25 12:10 0.4 mcg/kg/hr .[id number] PRN 7.366 mls/hr Per PROTOCOL Titration Protocol 0.2 MCG/KG/HR Vasopressin/Sodium Chloride 20 unit in 100 mls @ 9 mls/hr 12/09/24 13:22 12/09/24 21:07 Vasostrict/Ns Ivpb IV 01/08/25 13:21 0 unit/min .[id number] PRN 0 mls/hr PER PROTOCOL Titration Protocol 0.03 UNIT/MIN Potassium Phosphate 15 mmol in 250 mls @ 62.5 mls/hr 12/10/24 10:23 12/10/24 11:55 Pot Phos 15 Mmol In Ns 250 Ml IV 12/10/24 14:22 62.5 mls/hr X1 ONE Administration Fentanyl Citrate 2,500 mcg in 250 mls @ 2.5 mls/hr 12/10/24 12:25 Sublimaze Inj 2,500 Mcg/250 Ml Bag IV 12/15/24 12:24 .Q24H PRN ventiltor synchrony Protocol 25 MCG/HR Methylprednisolone Sodium Succinate 40 mg 12/09/24 13:15 12/10/24 09:39 Methylprednisolone Sod Succ 40 Mg Vial IVP 12/16/24 13:14 40 mg QDAY KURT Administration Metoclopramide HCl 10 mg 12/08/24 14:16 Metoclopramide Inj 5 Mg/Ml Vial 2 Ml IVP 01/07/25 14:15 Q6H PRN NAUSEA OR VOMITING Protocol Pharmacy Consult 1 each 12/09/24 09:00 Vancomycin Pharmacy To Dose 1 Each Each IV 01/08/25 08:59 QDAY PRN PROTOCOL Rocuronium [place] 50 mg 12/10/24 12:26 Rocuronium Inj 10 Mg/Ml Vial 10 Ml IV 12/10/24 12:27 X1 ONE Sodium Chloride 3 ml 12/08/24 19:30 12/08/24 20:13 Sodium Chloride Rt Emma 0.9% 3 Ml Nebu INH 01/07/25 19:29 3 ml PRN PRN Administration SOLN Plan This 84-year-old male patient with significant medical history for CVA, tracheostomy, PEG tube, hypertension, hyperlipidemia, A-fib and DM2 who was upgraded to the ICU due to shock #PASTRY COOK #Nonverbal and bedbound #History of CVA ?Stable CVS: #Shock, resolved #History of A-fib, not rate controlled ? EKG showed A-fib ? [id number] Plan: ? Will start metoprolol succinate 50 mg daily if blood pressure allows #NSTEMI type II likely supply demand ischemia, resolved ?Troponins down trended to 0.039 Respiratory #Acute on chronic hypoxic respiratory failure #Community-acquired pneumonia #Respiratory acidosis #Tracheal mass #Chronic tracheostomy ?ABG today showed pH of 7.04, PCO2 of 120, PO2 of 85 ?Chest x-ray shows vascular congestion and there can be some underlying consolidations on the left base ? Patient has been requiring frequent ventilator changes to maintain oxygen saturation above 90 ?Patient underwent bronchoscopy today and was noted to have a tracheal mass right underneath the tracheostomy. This is suspected to be a possible reason of patient's hypoxic episodes which rapidly resolves. ?Patient's chest x-ray today did show some pulmonary edema Plan: ?Transfer to tertiary care center for tracheal mass removal or biopsy by thoracic surgeon or behavioral modification assistant. ?Lasix 40 mg x 1 today ? Continue vancomycin and azithromycin [12/08/2024?] ?Continue meropenem 1000 mg every 8 hours [12/09/2024?] ? Pending chest CTA ? DuoNebs every 4 hours ? Blood cultures and sputum cultures pending Renal # Lactic acidosis, resolved GI #Possible bowel perforation versus ileus #PEG tube feeding ?On chest x-ray it appears that there could be free air under the diaphragm versus distended bowel ? Patient has chronic PEG tube ?Abdominal x-ray that show Plan ?Follow-up abdomen/pelvis CT to assess for any perforation ?PEG tube to intermittent suction ? Referral to dietitian #Complicated UTI ?Patient's urinalysis came back positive for bacteria Plan: ? Continuing antibiotics ?Urine culture pending Heme #Leukocytosis #Normocytic anemia ?Hemoglobin 10.6 ?No active signs of bleeding Plan: ?Will continue to monitor with daily labs Endo: #DM2 Last A1c 4.9 on February 2024 Plan: ? Q6h bedside glucose checks ID: #Community-acquired PNA #UTI ?Patient has history of ESBL resistance to cefepime in the past ? Urinalysis is significant for pyuria and bacteriuria ? Continue azithromycin 500 mg once daily and vancomycin pharmacy to dose ?Start patient on meropenem 1000 mg every 8 ?Blood cultures and urine cultures pending MSK: #Right upper extremity mottling, resolved Plan: ? Chest CTA to rule out any right upper extremity occlusion Health maintenance: Diet: N.p.o., DVT/PPx: Heparin GI ppx: Protonix Lines: PEG tube, Gibson Code Status: DNR Dispo: ICU due to shock, which has resolved Case disclosed with Attending Dr. Malcolm Smiley PGY1
--- NOTE | 2024-12-10 12:41 | PC.CM ---
Addendum entered by Bonnie Padilla RN 12/10/24 18:41: Patient needs transfer for Pulmonary IR. [facility], [facility], and [facility] all declined due to the fact that they stated patient needs higher level tertiary care. I initiated transfer faxed out to [facility], [facility], and to [facility]. Packet started along with CD and handed off to night charge nurse. Addendum entered by Bonnie Padilla RN 12/10/24 18:07: I called [facility] transfer center and I spoke to Mark and I initiated a transfer. I faxed over information. Addendum entered by Bonnie Padilla RN 12/10/24 16:31: I spoke to Fatemeh at [facility] and initiated a transfer. I faxed over paperwork. Addendum entered by Bonnie Padilla RN 12/10/24 16:16: I received a call back from Cathie at [facility]. She states their Dr. Pritchett is out off town all week and he is the only one who could manage this type of patient. He recommended [facility]. I will reach out to [facility]. Addendum entered by Bonnie Padilla RN 12/10/24 15:42: 1530 I received a call from [facility] and they stated Dr. Monique reviewed patient and he states patient need to be transferred to a tertiary center. They declined patient stating they do not have the service available. 1515 I initiated a transfer to [facility] and I faxed over information. Addendum entered by Bonnie Padilla RN 12/10/24 14:47: I received a call back from Carlee at [facility]. She states she received a call back from their IR team and they are declining patient because they do not have IR that can do pulmonary services. Addendum entered by Bonnie Padilla RN 12/10/24 14:43: I received a call back from Carlee at [facility]. She states she reached out to her doctor and they feel patient needs IR pulmonary services. Carlee states they reached out to their IR team and they are waiting to hear back from them. Carlee states she updated Dr. Fowler. Carlee states we should also try [facility] because they have that service. Addendum entered by Bonnie Padilla RN 12/10/24 13:52: I received a call from Leora gan from [facility]. She states she would like to get more detailed information from our doctor. I provided the number to ICU and to Dr. Fowler. Addendum entered by Bonnie Padilla RN 12/10/24 13:47: 1330 I contacted [facility] transfer center and I spoke to [facility]. I initiated transfer and I faxed over information. Addendum entered by Bonnie Paidlla RN 12/10/24 13:08: 1255 I called [facility] and Initiated a transfer. I faxed over information. Packet started along with CD for transfer. Original Note: 1226 I received a referral to transfer patient for cardiovascular/thoracic surgery for tracheal mass occluding tracheostomy. I will send out to [facility] and [facility].
[2024-12-10 12:52] LABS: Hematocrit 33.1 % (41.0-53.0); Hemoglobin 10.6 g/dL (13.5-16.0)
[2024-12-10] MEDS: ROCURONIUM INJ 10 MG/ML VIAL 10 ML 50 MG IV ×2 (13:06→15:10)
[2024-12-10] MEDS: fentaNYL 2,500 MCG/250 ML BAG 2,500 MCG/250 ML BAG 7.5 MCG IV (13:08)
[2024-12-10] MEDS: AZITHROMYCIN INJ 500 MG in SODIUM CHLORIDE 0.9% 250 ML 250 ML 250 MG IV (13:17)
[2024-12-10] MEDS: METOPROLOL TARTRATE INJ 1 MG/ML AMP 5 ML 5 MG IVP (17:31)
--- NOTE | 2024-12-10 19:30 | PC.NURSE ---
spoke with Rafaela from [facility] they were requesting images to be sent over. images sent
--- NOTE | 2024-12-10 21:30 | PC.NURSE ---
Images sent to [facility] via a link.
--- NOTE | 2024-12-10 21:54 | PC.NURSE ---
Received a call from [facility] transfer center and stated that patient is denied due to patient's status, co-morbidity and [facility] is too far from [place].
[2024-12-11] VITALS (97 sets, daily range): BP systolic 102–156; BP diastolic 48–98; PULSE 72–124; RESP 12–29; TEMP 36.4–37.2; O2SAT 95–100
[2024-12-11] MEDS: ACETYLCYSTEINE RT SOL 10% 4 ML NEBU 3 ML INH ×6 (02:55→22:40)
[2024-12-11] MEDS: ALBUTEROL/IPRATROPIUM (Duoneb) RT SOL 3 ML NEBU INH ×6 (02:55→22:40)
[2024-12-11 04:55] LABS: Base Excess 8 (-3-3); HCO3 34 mEq/L (20-26); Inspired Oxygen, FIO2 40 %; O2 Saturation 100 % (91-98); PCO2 55 mmHg (32.0-48.0); PO2 130 mmHg (83-108)
[2024-12-11 04:56] LABS: Allen Test Performed/OK; Puncture Site Right Radial
--- NOTE | 2024-12-11 06:00 | XR_ITS ---
Examination: AP chest single view Technique one AP portable semiupright chest single view Exam date and time: December 11, 2024 0533 hrs. Comparison December 10, 2024 Indications: Difficulty breathing this week Bibasilar pneumonia and mild heart failure on chest film December 12, 2024 Findings: Mild enlargement cardiac contour Bibasilar pneumonia significant left base Moderate vascular congestion Mild enlargement left ventricle Left internal jugular central catheter right atrium Tracheostomy tube tip 8.5 cm above carlo Impression: Bibasilar pneumonia, significant left base
[2024-12-11 06:04] LABS: Basophils % (Auto) 0 % (0-2.5); Eosinophils % (Auto) 0 % (0-10); Hematocrit 29.8 % (41.0-53.0); Hemoglobin 9.4 g/dL (13.5-16.0); Immature Granulocytes % (Auto) 0 % (0-0); Immature Granulocytes Auto 0.02 Thou/mm3 (0.00-0.00); Lymphocytes # (Auto) 0.3 Thou/mm3 (1.0-4.8); Lymphocytes % (Auto) 4 % (10-50); Mean Corpuscular HGB Conc 31.5 g/dl (31.0-37.0); Mean Corpuscular Hemoglobin 29.2 pg (25.0-35.0); Mean Corpuscular Volume 93 fL (80-100); Monocytes # (Auto) 0.5 Thou/mm3 (0.0-0.8); Monocytes % (Auto) 6 % (0-12); Neutrophils % (Auto) 90 % (37-80); Nucleated Red Blood Cell % 0 /100 WBC (0); Platelet Count 152 Thou/mm3 (140-440); RDW Standard Deviation 57.8 fL (35.1-43.9); Red Blood Count 3.22 Miln/mm3 (4.50-5.90); White Blood Count 7.8 Thou/mm3 (3.8-10.6)
[2024-12-11 06:25] LABS: Alanine Aminotransferase 11 U/L (10-49); Albumin, Serum 3.4 gm/dL (3.4-4.8); Albumin/Globulin Ratio 1.1 (1.2-2.2); Alkaline Phosphatase 67 U/L (46-116); Anion Gap 7 (7-16); Aspartate Amino Transferase 14 U/L (0-34); BUN/Creatinine Ratio 43 Ratio (12-20); Bilirubin,Total 0.5 mg/dL (0.3-1.2); Blood Urea Nitrogen 17 mg/dL (9-23); Calcium 8.6 mg/dL (8.3-10.6); Calcium (Corrected) 9.1 mg/dL (8.5-10.1); Carbon Dioxide 32.5 mMol/L (20.0-31.0); Chloride 107 mMol/L (98-107); Creatinine (Component) 0.4 mg/dL (0.6-1.3); Glucose 160 mg/dL (74-106); Magnesium 2.2 mg/dL (1.6-2.6); Osmolality,Calculated 295 (275-295); Phosphorous 1.6 mg/dL (2.4-5.1); Sodium 146 mMol/L (136-145); Total Protein 6.4 gm/dL (5.7-8.2); eGFR > 60 See Note
[2024-12-11] MEDS: HEPARIN SOD INJ 5000 UNIT/ML VIAL SC ×3 (06:40→22:03)
[2024-12-11] MEDS: MEROPENEM INJ 1,000 MG in SODIUM CHLORIDE 0.9% (Popper) 50 ML 100 MG IV ×3 (06:40→22:04)
--- NOTE | 2024-12-11 06:55 | PC.NURSE ---
spoke with Rafaela from [facility] transfer center requesting goals of care discussion with family and to reach out to [facility]. They stated they will close case and to reach back out if we still want to transfer to [facility]
--- NOTE | 2024-12-11 07:29 | PC.CC ---
Addendum entered by Ilana Louis RN 12/11/24 17:41: Discharge summary faxed to [facility] Addendum entered by Ilana Louis RN 12/11/24 17:08: TBA signed and faxed back to [facility] Addendum entered by Ilana Louis RN 12/11/24 16:36: Spoke to Elsa at [facility] transfer center who stated the patient was accepted by Dr. Roberto Bull, she stated she faxed a transfer packet with a TBA to faxed back at 1200 to an unknown number, gave her transfer nurse fax number and she states she will fax it again, she stated patient will not get a bed untill paperwork is faxed and then patient will be put in a queue to get a bed, will wait for fax Addendum entered by Ilana Louis RN 12/11/24 16:27: Spoke to [facility] [place] who stated the patient is financially cleared and waiting for doctor to review it Addendum entered by Ilana Louis RN 12/11/24 13:40: Spoke to Malika at [facility], updated clinical information, will wait for call back, pt has been downgraded to Tele Addendum entered by Ilana Louis RN 12/11/24 11:18: Spoke to Patricia at [facility] [place], patients chart sent, images sent will wait for call back Addendum entered by Ilana Louis RN 12/11/24 10:59: Scott from [facility] called back and stated her doctor declined stating patient needs higher level of care then they can provide. Addendum entered by Ilana Louis RN 12/11/24 09:51: Spoke to Scott at [facility] about possible transfer, chart faxed will wait for call back Addendum entered by Ilana Louis RN 12/11/24 09:38: Brianna called back at this time and stated Dr. Connell called back and stated this was out of his scope so patient was declined. Still waiting to hear back from [facility]. Addendum entered by Ilana Louis RN 12/11/24 09:32: Brianna from [facility] called back at this time and stated Thoracic surgeon is in OR and she is unable to run the case by him till he is out of OR no ETA on when doctor will be available Addendum entered by Ilana Louis RN 12/11/24 08:36: Spoke to Artem at [facility], face sheet faxed, Brianna AVERY to get clinicals call transferred to ICU charge nurse. Addendum entered by Ilana Louis RN 12/11/24 08:18: Spoke to Mervin at [facility] who states transfer still open and they are waiting to hear back from their team. Addendum entered by Ilana Louis RN 12/11/24 08:16: Kiana from [facility] called back at this time and stated they are declining due to not being the closest appropriate facility, informed Kiana that [facility], [place], and [facility] declined so they would be the next closest, she then stated they are at capacity and have no beds so they are declining. Addendum entered by Ilana Louis RN 12/11/24 08:12: 0806- Spoke to Kiana at [facility] transfer [place] and updated her, she states they will call us back [phone]- Dr. Uriostegui called and said that they spoke woth patients family yesterday who wanted to have patient transferred and have the mass biopsied or excised per [facility] physician recomendation, patient is to stay DNR. Original Note: After speaking with charge nurse Gertrudis transfer is on hold until Dr. Fowler has conversation with family about goals of care. Will follow up.
[2024-12-11] MEDS: POT PHOS 15 mMol in NS 250 ML 15 MMOL/250 ML BAG 62.5 MMOL IV ×2 (07:36→11:07)
[2024-12-11] MEDS: fentaNYL 2,500 MCG/250 ML BAG 2,500 MCG/250 ML BAG 12.5 MCG IV (07:43)
[2024-12-11] MEDS: METOPROLOL SUCCINATE XL 25 MG TABCR 50 MG GT (08:50)
--- NOTE | 2024-12-11 09:41 | ESPR_ITS ---
Documentation for date of: 12/11/24 Subjective Subjective Interval history: This is a 84yo M s/p CVA with trach and PEG who resides in subacute. He has a baseline of nonverbal and vegetative state. He was brought to the ER for tachypnea and increase in WOB along with desats. He was found to have a PNA and admitted to the floor. Overnight he became hypotensive and was given 3lt of IVF , despite this he remained hypotensive and was transferred to the ICU for vasopressor support. He was on Levophed briefly and was weaned off by around 6 AM today. His blood pressure remained stable however he does have intermittent drops of his sats along with increased WOB. Typically he is on blow by with his trach however has required MV. 12/10- overnight good UOP, afebrile, high PIP with plat <30 and desaturation requiring 1x ok after which there was improvement in lung mechanics. did require vasopressors yesterday likely due to meds given and is off this AM 12/11- no acute overnight events, off of vasopressors, on fentanyl gtt, good UOP, afebrile Critical Care Note Critical care time (min.): 40 Exam Vital Signs Temp Pulse Resp BP Pulse Ox O2 Del Method O2 Flow Rate 98.9 F 105 H 28 H 144/60 H 100 Mechanical Ventilation 40 12/11/24 04:00 12/11/24 08:50 12/11/24 06:45 12/11/24 08:50 12/11/24 07:30 12/11/24 00:00 12/09/24 05:00 FiO2 40 12/11/24 06:45 Narrative Exam Gen- NAD, chronically ill appearing, contracted, nonverbal HEENT- NC/AT, mucosa hydrated, trach in place, sclera anicteric Chest- LCTAB, HRIR, no increase in WOB Abd- s/nt/bs+, PEG in place Ext- min edema, pulses palp, no clubbing, no mottling, contracted Vent AC VC Drips fent Physical Exam Completion Physical Exam Complete?: Yes Objective - Director Of Online Education Labs 12/11/24 04:26 12/11/24 04:26 Labs: Laboratory Results - last 24 hr 12/10/24 12/10/24 12/11/24 09:34 12:33 04:26 WBC 7.8 D RBC 3.22 L Hgb 10.6 L 9.4 L Hct 33.1 L 29.8 L MCV 93 MCH 29.2 MCHC 31.5 RDW Std Deviation 57.8 H Plt Count 152 D Neut % (Auto) 90 H Lymph % (Auto) 4 L [place] % (Auto) 6 Eos % (Auto) 0 Baso % (Auto) 0 Neut # (Auto) 7.0 Lymph # (Auto) 0.3 L [place] # (Auto) 0.5 Eos # (Auto) 0.0 Baso # (Auto) 0.0 Immature Gran # (Auto) 0.02 H Absolute Nucleated RBC 0.00 Immature Gran % 0 Nucleated RBC % 0 Puncture Site Arterial Line ABG pH 7.28 L D ABG pCO2 68 H D ABG pO2 94 D ABG HCO3 31 H ABG O2 Saturation 76 L ABG Base Excess 3 FiO2 40 Sodium 146 H Potassium 4.0 Chloride 107 Carbon Dioxide 32.5 H Anion Gap 7 BUN 17 Creatinine 0.4 L Estim Creat Clear Calc 133.0 eGFR > 60 BUN/Creatinine Ratio 43 H Glucose 160 H Calculated Osmolality 295 Calcium 8.6 Corrected Calcium 9.1 Phosphorus 1.6 L Magnesium 2.2 Total Bilirubin 0.5 AST 14 ALT 11 Alkaline Phosphatase 67 Total Protein 6.4 Albumin 3.4 Globulin 3.0 Albumin/Globulin Ratio 1.1 L 12/11/24 04:40 WBC RBC Hgb Hct MCV MCH MCHC RDW Std Deviation Plt Count Neut % (Auto) Lymph % (Auto) [place] % (Auto) Eos % (Auto) Baso % (Auto) Neut # (Auto) Lymph # (Auto) [place] # (Auto) Eos # (Auto) Baso # (Auto) Immature Gran # (Auto) Absolute Nucleated RBC Immature Gran % Nucleated RBC % Puncture Site Right Radial ABG pH 7.40 D ABG pCO2 55 H D ABG pO2 130 H D ABG HCO3 34 H ABG O2 Saturation 100 H ABG Base Excess 8 H FiO2 40 Sodium Potassium Chloride Carbon Dioxide Anion Gap BUN Creatinine Estim Creat Clear Calc eGFR BUN/Creatinine Ratio Glucose Calculated Osmolality Calcium Corrected Calcium Phosphorus Magnesium Total Bilirubin AST ALT Alkaline Phosphatase Total Protein Albumin Globulin Albumin/Globulin Ratio Assessment & Plan Additional Plan Additional Plan: In summary this is an 84-year-old gentleman admitted to the ICU for septic shock and acute on chronic respiratory failure a/p [employer] 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, appears to be at baseline CV Afib c RVR- given metoprolol IV x1 yesterday - started on PO metoprolol today Shock- resolved Tropinemia- 2/2 demand ischemia and trended back down Resp Acute/chronic hypoxic resp failure- on AC VC , fu with ABG and CXR, ween as able - 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 ileus- significant gas seen on CXR with dilated loops of bowel, PEG placed to LIS - fu with CT abd -> still pending Endo stable Heme Leukocytosis- improved Anemia- there has been a drop in Hb from baseline of 08/11-> 8.9 - repeat h/h today - no active bleeding noted - remains stable Thrombocytopenia- pt has had a drop in all 3 cell lines on todays labs - no indication for transfusion at this time DVT proph- heparin [id number] ID PNA- on abx Sepsis - cx taken and pending, on abx, poss source lungs and urine case d/w ICU team labs, imaging records reviewed will need transfer for tracheal mass with intermittent occlusion of trach -> d/w [facility] and pending bed ~40ccmin required for eval, exam, review, intervention, discussion and formulation of POC for this critically ill pt with acute/chronic hypoxic resp failure at high risk for further and ongoing decompensation Provider Notation Provider Notation: Although this document has been carefully reviewed, there may still be some phonetic and other typographical errors. These errors are purely grammatical due to imperfections in the software program and should not be construed in any way to compromise the substance of the patient's medical care during this visit. Thank you for the opportunity and privilege in assisting you with this patient's care and management.
--- NOTE | 2024-12-11 09:41 | PC.NURSE ---
Spoke to Gracy at [facility] regarding patients condition in order to ascertain the bed requirements for the patient. The information was given to the transfer nurse and no further questions were asked. Gracy stated she will update the business case analyst for [facility] about the information.
--- NOTE | 2024-12-11 09:50 | PD.RESPRO ---
Documentation for date of: 12/11/24 Subjective Subjective Interval history: This 84-year-old male patient with significant medical history for non-verbal, vegetative state, CVA, tracheostomy, PEG tube feed, atrial fibrillation, hypertension, hyperlipidemian and diabetes was brought from our subactue facility for shortness of breath. Patient had episode of stroke in 2019 leading to trach and PEG tube ever since has been subacute resident. Patient was upgraded to ICU due to hypotension with MAP around 55 with blood pressure 66/50 and refractory to IV fluids. He was started on low-dose Levophed for maintaining blood pressure. Rest of the management will be continued with IV antibiotic.Patient is admitted for acute on chronic respiratory failure and sepsis likely due to possible ventilator associated versus aspiration pneumonia. Patient remained persistently hypotensive possible developing distributive versus septic shock required pressor support and was upgraded to ICU. 12/09/2024: Patient was seen and examined at bedside this morning. Overnight patient was on low-dose Levophed until 5:50 AM today and was then taken off the Levophed. This morning patient was tachycardic and tachypneic. His saturation did go up and down between saturating in the low 80s and then mid 90s. ABG done while patient was saturating in the low 80s high 70s showed pH 7.04, PCO2 of 120, and PO2 of 85. Was also noticed that patient has mottling of the right upper extremity around the shoulder to the mid upper extremity and it was cool to touch when compared to the left upper extremity. Chest x-ray also showed what could be some free air under the diaphragm versus fluid distended bowel. Given this physical exam finding we will order chest CTA to rule out any right upper extremity vessel occlusion and to rule out any pulmonary embolism as patient desaturated, was tachycardic, there was some hemoptysis seen on suction. Will also get a abdomen/pelvis CT to rule out any bowel perforation. Broaden patient's antibiotics to meropenem and discontinue cefepime based on past cultures with ESBL. Will get repeat ABG in 20-30 minutes after ventilator changes were made. 12/10/2024: Patient seen and examined at bedside this morning. No acute overnight events. Patient was taken off vasopressors yesterday around 11 PM and has since then not requiring any vasopressors at this time. Patient again desaturated today and was noted to have hypercapnia on ABG. Concern for bronchoscopy was taken and patient underwent bronchoscopy. On bronchoscopy there was a tracheal mass noted right below tracheostomy. This could be the reason for patient's desaturation episodes that quickly resolved. At this time patient will need transfer to a tertiary care center for either thoracic surgeon or awning maker and installer that could biopsy or excise the mass. On the chest x-ray patient appeared to have some pulmonary edema therefore 40 Lasix x 1 was given today. Patient was also noted to have hypophosphatemia therefore repleted this as well as magnesium. It was also noted that patient had a drop in hemoglobin to 8.9 today, but on repeat it was 10.6. Still pending echo. 12/12/2024: Patient seen and examined at bedside this morning. Overnight patient was taken again off Levophed has been having a good blood pressure. Patient did not have any episodes of desaturation during night and had a good urine output of 1618 mL in 24 hours. Patient did develop some contraction alkalosis most likely in the setting of diuresis. Will speak with radiologist to take a look at the chest CTA to have a more accurate description of the tracheal mass. Abdomen/pelvis CT was negative for any obstruction or perforation. Will start tube feeds again today and will wean patient off fentanyl for possible downgrade to the medical floors as patient is stable at this time. Patient still pending transfer for tracheal mass. Exam Vital Signs Temp Pulse Resp BP Pulse Ox O2 Del Method O2 Flow Rate 98.9 F 105 H 28 H 144/60 H 100 Mechanical Ventilation 40 12/11/24 04:00 12/11/24 08:50 12/11/24 06:45 12/11/24 08:50 12/11/24 07:30 12/11/24 00:00 12/09/24 05:00 FiO2 40 12/11/24 08:00 Narrative Exam General: Nonverbal at baseline, ill-appearing Eyes: Pupils reactive to light, eyes opened today, unable to track Ears: No visible ear discharge or bruising Nose: No visible nasal discharge Mouth/Throat: Dry mucous membranes, no redness, no lesions. Neck: Neck supple, no cervical lymphadenopathy appreciated. Lungs: Clear FORREST Cardio: Normal S1/S2, irregular rhythm, no murmurs appreciated, no JVD Abdomen: Soft, no palpable masses, peristalsis present, no guarding or rebound. PEG tube in place with no discharge. Extremities: Hands were warm to touch and no discoloration noted. trace edema bilaterally, onycholysis on bilateral feet Skin: Sacral ulcer covered by clean wound dressing, mottling of the right upper extremity at the level of the shoulder down to mid right upper extremity and cool to touch. Neuro: Nonverbal at baseline, pupils were reactive but sluggish. Objective Labs 12/11/24 04:26 12/11/24 04:26 Labs: Laboratory Results - last 24 hr 12/10/24 12/11/24 12/11/24 12:33 04:26 04:40 WBC 7.8 D RBC 3.22 L Hgb 10.6 L 9.4 L Hct 33.1 L 29.8 L MCV 93 MCH 29.2 MCHC 31.5 RDW Std Deviation 57.8 H Plt Count 152 D Neut % (Auto) 90 H Lymph % (Auto) 4 L [place] % (Auto) 6 Eos % (Auto) 0 Baso % (Auto) 0 Neut # (Auto) 7.0 Lymph # (Auto) 0.3 L [place] # (Auto) 0.5 Eos # (Auto) 0.0 Baso # (Auto) 0.0 Immature Gran # (Auto) 0.02 H Absolute Nucleated RBC 0.00 Immature Gran % 0 Nucleated RBC % 0 Puncture Site Right Radial ABG pH 7.40 D ABG pCO2 55 H D ABG pO2 130 H D ABG HCO3 34 H ABG O2 Saturation 100 H ABG Base Excess 8 H FiO2 40 Sodium 146 H Potassium 4.0 Chloride 107 Carbon Dioxide 32.5 H Anion Gap 7 BUN 17 Creatinine 0.4 L Estim Creat Clear Calc 133.0 eGFR > 60 BUN/Creatinine Ratio 43 H Glucose 160 H Calculated Osmolality 295 Calcium 8.6 Corrected Calcium 9.1 Phosphorus 1.6 L Magnesium 2.2 Total Bilirubin 0.5 AST 14 ALT 11 Alkaline Phosphatase 67 Total Protein 6.4 Albumin 3.4 Globulin 3.0 Albumin/Globulin Ratio 1.1 L ABG Interpretation ABG results: 12/08/24 12/08/24 12/09/24 11:55 21:28 01:30 ABG pH 7.35 7.32 L ABG pCO2 49 H 50 H ABG pO2 281 H 223 H D ABG HCO3 27 H 26 ABG O2 Saturation 101 H 101 H ABG Base Excess 1 -1 VBG pH 7.28 L VBG pCO2 58 H VBG pO2 75 H VBG Base Excess -1 12/09/24 12/09/24 12/09/24 04:15 09:38 11:03 ABG pH 7.39 7.04 L* D 7.21 L D ABG pCO2 48 120 H* D 76 H* D ABG pO2 154 H D 85 D 102 ABG HCO3 29 H 32 H 30 H ABG O2 Saturation 100 H 91 98 ABG Base Excess 3 -2 1 VBG pH VBG pCO2 VBG pO2 VBG Base Excess 12/10/24 12/10/24 12/11/24 04:53 09:34 04:40 ABG pH 7.40 D 7.28 L D 7.40 D ABG pCO2 51 H D 68 H D 55 H D ABG pO2 130 H D 94 D 130 H D ABG HCO3 31 H 31 H 34 H ABG O2 Saturation 100 H 76 L 100 H ABG Base Excess 6 H 3 8 H VBG pH VBG pCO2 VBG pO2 VBG Base Excess Quality Measures Quality Measures sepsis Current suspected stage: sepsis Possible source: pulmonary Blood cultures ordered: completed in ED Antibiotic ordered: Yes Advance care planning discussed with:: child Assessment & Plan Assessment Current Active Medications: Generic Name Dose Route Start Last Admin Trade Name Freq PRN Reason Stop Dose Admin Acetaminophen 650 mg 12/08/24 14:16 Acetaminophen 325 Mg Tablet PO 01/07/25 14:15 Q6H PRN Fever >101.5 Acetylcysteine 3 ml 12/09/24 15:00 12/11/24 06:44 Acetylcysteine Rt Emma 10% 4 Ml Nebu INH 01/08/25 14:59 3 ml Q4HRRT KURT Administration Albuterol/Ipratropium 3 ml 12/08/24 23:00 12/11/24 06:44 Albuterol/Ipratropium (Duoneb) Rt Emma 3 Ml Nebu INH 01/07/25 22:59 3 ml Q4HRRT KURT Administration Heparin Sodium (Porcine) 5,000 unit 12/08/24 22:00 12/11/24 06:40 Heparin Sod Inj 5000 Unit/Ml Vial SC 12/22/24 21:59 5,000 unit Q8HR KURT Administration Norepinephrine/Dextrose 8 mg in 250 mls @ 6.906 mls/hr 12/08/24 20:54 12/10/24 23:50 Levophed In D5w 8mg/250ml IV 01/07/25 20:53 0 mcg/kg/min .Q24H PRN 0 mls/hr PER PROTOCOL Titration Protocol 0.05 MCG/KG/MIN Azithromycin 500 mg/ Sodium 250 mls @ 250 mls/hr 12/09/24 14:00 12/10/24 13:17 Chloride IV 12/11/24 14:00 250 mls/hr QDAY@1400 KURT Administration Vancomycin HCl 250 mls @ 120 mls/hr 12/09/24 10:00 12/10/24 21:44 Vancomycin/Water 1250 Mg Ivpb IV 12/16/24 09:59 120 mls/hr Q12H KURT Administration Meropenem 1,000 mg/ Sodium 50 mls @ 100 mls/hr 12/09/24 10:00 12/11/24 06:40 Chloride IV 12/16/24 09:59 100 mls/hr Q8HR KURT Administration Protocol Vasopressin/Sodium Chloride 20 unit in 100 mls @ 9 mls/hr 12/09/24 13:22 12/09/24 21:07 Vasostrict/Ns Ivpb IV 01/08/25 13:21 0 unit/min .Q11H7M PRN 0 mls/hr PER PROTOCOL Titration Protocol 0.03 UNIT/MIN Potassium Phosphate 15 mmol in 250 mls @ 62.5 mls/hr 12/11/24 06:49 12/11/24 07:36 Pot Phos 15 Mmol In Ns 250 Ml IV 12/11/24 14:48 62.5 mls/hr Q4H KURT Administration Methylprednisolone Sodium Succinate 40 mg 12/09/24 13:15 12/11/24 08:51 Methylprednisolone Sod Succ 40 Mg Vial IVP 12/16/24 13:14 40 mg QDAY KURT Administration Metoclopramide HCl 10 mg 12/08/24 14:16 Metoclopramide Inj 5 Mg/Ml Vial 2 Ml IVP 01/07/25 14:15 Q6H PRN NAUSEA OR VOMITING Protocol Metoprolol Succinate 50 mg 12/11/24 09:00 12/11/24 08:50 Metoprolol Succinate Xl 25 Mg Tabcr GT 01/10/25 08:59 50 mg QDAY KURT Administration Pharmacy Consult 1 each 12/09/24 09:00 Vancomycin Pharmacy To Dose 1 Each Each IV 01/08/25 08:59 QDAY PRN PROTOCOL Sodium Chloride 3 ml 12/08/24 19:30 12/08/24 20:13 Sodium Chloride Rt Emma 0.9% 3 Ml Nebu INH 01/07/25 19:29 3 ml PRN PRN Administration SOLN Plan This 84-year-old male patient with significant medical history for CVA, tracheostomy, PEG tube, hypertension, hyperlipidemia, A-fib and DM2 who was upgraded to the ICU due to shock #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 EKG showed A-fib ? [id number] Plan: ? Started metoprolol succinate 50 mg daily -Echo pending #NSTEMI type II likely supply demand ischemia, resolved ?Troponins down trended to 0.039 Respiratory #Acute on chronic hypoxic respiratory failure #Community-acquired pneumonia #Respiratory acidosis #Tracheal mass #Chronic tracheostomy ?ABG today showed pH of 7.04, PCO2 of 120, PO2 of 85 ?Chest x-ray shows vascular congestion and there can be some underlying consolidations on the left base ? Patient has been requiring frequent ventilator changes to maintain oxygen saturation above 90 ?Patient underwent bronchoscopy today and was noted to have a tracheal mass right underneath the tracheostomy. This is suspected to be a possible reason of patient's hypoxic episodes which rapidly resolves. ?Patient's chest x-ray today showed improvement in vaascular congestion ?Patient's chest CTA did not show any pulmonary embolism Plan: ?Transfer to tertiary care center for tracheal mass removal or biopsy by thoracic surgeon or awning maker and installer. ? Continue vancomycin [12/08/2024?] ?Continue meropenem 1000 mg every 8 hours [12/09/2024?] Azithromycin discontinued today [12/08/2024-12/11/2024] ? DuoNebs every 4 hours ? Blood cultures and sputum cultures negative Renal #Contraction alkalosis Patient developing contraction alkalosis most likely in the setting of diuresis yesterday # Lactic acidosis, resolved GI #PEG tube feeding ?On chest x-ray it appears that there could be free air under the diaphragm versus distended bowel ? Patient has chronic PEG tube ?Abdomen CT did not show any perforation or bowel obstruction Plan ? Will start tube feeds today ?Will monitor electrolytes for refeeding syndrome ? Referral to dietitian #Complicated UTI ?Patient's urinalysis came back positive for bacteria Plan: ? On meropenem ?Urine culture negative Heme #Leukocytosis #Normocytic anemia ?Hemoglobin 9.4 today ?No active signs of bleeding Plan: ?Will continue to monitor with daily labs Endo: #DM2 Last A1c 4.9 on February 2024 Plan: ? Q6h bedside glucose checks ID: #Community-acquired PNA #UTI ?Patient has history of ESBL resistance to cefepime in the past ? Urinalysis is significant for pyuria and bacteriuria ? Discontinue azithromycin ? Continue patient on meropenem 1000 mg every 8 and vancomycin pharmacy to dose ?Blood cultures and urine cultures negative MSK: #Right upper extremity mottling, resolved Chest CTA did not show any occlusion Health maintenance: Diet: Started tube feeds DVT/PPx: Heparin GI ppx: not indicated Lines: PEG tube, Gibson Code Status: DNR Dispo: Downgrade to medical floors and pending transfer Case disclosed with Attending Dr. Malcolm Smiley PGY1
--- NOTE | 2024-12-11 10:36 | PC.SS ---
Patient Marek Carrington a 84 Year old male admitted for for SOB. SS contacted patient's son, Colt Roy order to complete initial assessment, Colt reports he is surrogate decision maker, [phone]. Patient resides in [facility] and has been there for about 4 years. Patient is trach and pegged. Patient is non ambulatory and needs assistance completing all ADL's. At time of discharge patient will return back to Subacute. SS will contact Son[employer] when patient is medically cleared. Discharge Plan: [facility] Next of Kin, SonColt
[2024-12-11] MEDS: VANCOMYCIN/WATER 1250 MG IVPB 250 ML 120 MG IV ×2 (10:42→22:04)
--- NOTE | 2024-12-11 11:35 | PD.IDPROG ---
Subjective Subjective Interval history: 84 y/o dnr with L base pneumonia on a vent. trach noted. meds noted at home on merrem as that is what is done in the icu Exam Vital Signs Temp Pulse Resp BP Pulse Ox O2 Del Method O2 Flow Rate 97.5 F 94 26 H 141/66 H 100 Mechanical Ventilation 40 12/11/24 08:01 12/11/24 10:43 12/11/24 10:43 12/11/24 10:43 12/11/24 10:43 12/11/24 00:00 12/09/24 05:00 FiO2 40 12/11/24 10:43 Narrative Exam vegetative. not interactive. vent and gt dependent. 40% O2 noted. unclear what his baseline is at all. Objective - Internal Medicine Labs 12/11/24 04:26 12/11/24 04:26 Labs: Laboratory Results - last 24 hr 12/10/24 12/11/24 12/11/24 12:33 04:26 04:40 WBC 7.8 D RBC 3.22 L Hgb 10.6 L 9.4 L Hct 33.1 L 29.8 L MCV 93 MCH 29.2 MCHC 31.5 RDW Std Deviation 57.8 H Plt Count 152 D Neut % (Auto) 90 H Lymph % (Auto) 4 L [place] % (Auto) 6 Eos % (Auto) 0 Baso % (Auto) 0 Neut # (Auto) 7.0 Lymph # (Auto) 0.3 L [place] # (Auto) 0.5 Eos # (Auto) 0.0 Baso # (Auto) 0.0 Immature Gran # (Auto) 0.02 H Absolute Nucleated RBC 0.00 Immature Gran % 0 Nucleated RBC % 0 Puncture Site Right Radial ABG pH 7.40 D ABG pCO2 55 H D ABG pO2 130 H D ABG HCO3 34 H ABG O2 Saturation 100 H ABG Base Excess 8 H FiO2 40 Sodium 146 H Potassium 4.0 Chloride 107 Carbon Dioxide 32.5 H Anion Gap 7 BUN 17 Creatinine 0.4 L Estim Creat Clear Calc 133.0 eGFR > 60 BUN/Creatinine Ratio 43 H Glucose 160 H Calculated Osmolality 295 Calcium 8.6 Corrected Calcium 9.1 Phosphorus 1.6 L Magnesium 2.2 Total Bilirubin 0.5 AST 14 ALT 11 Alkaline Phosphatase 67 Total Protein 6.4 Albumin 3.4 Globulin 3.0 Albumin/Globulin Ratio 1.1 L ABG Interpretation ABG results: 12/08/24 12/08/24 12/09/24 11:55 21:28 01:30 ABG pH 7.35 7.32 L ABG pCO2 49 H 50 H ABG pO2 281 H 223 H D ABG HCO3 27 H 26 ABG O2 Saturation 101 H 101 H ABG Base Excess 1 -1 VBG pH 7.28 L VBG pCO2 58 H VBG pO2 75 H VBG Base Excess -1 12/09/24 12/09/24 12/09/24 04:15 09:38 11:03 ABG pH 7.39 7.04 L* D 7.21 L D ABG pCO2 48 120 H* D 76 H* D ABG pO2 154 H D 85 D 102 ABG HCO3 29 H 32 H 30 H ABG O2 Saturation 100 H 91 98 ABG Base Excess 3 -2 1 VBG pH VBG pCO2 VBG pO2 VBG Base Excess 12/10/24 12/10/24 12/11/24 04:53 09:34 04:40 ABG pH 7.40 D 7.28 L D 7.40 D ABG pCO2 51 H D 68 H D 55 H D ABG pO2 130 H D 94 D 130 H D ABG HCO3 31 H 31 H 34 H ABG O2 Saturation 100 H 76 L 100 H ABG Base Excess 6 H 3 8 H VBG pH VBG pCO2 VBG pO2 VBG Base Excess Assessment & Plan A&P Narrative LLL PNa dnr status. but family wants full rx per staff. chronic resp failure with acute component hx of cva and persistent vegetative state hld afib role of abx depends on family decision for rx. merrem likely to be overkill, but it is the icu tradition and pt is dnr, 84 yoa and had a cva with a trach. based on prior cx. a quinolone would be ok but I am not seeing him formally, only due to the merrem use. if cx with a s germ to quinolones ok to use them with or without enteral flagyl, note that quinlones are the same iv and po so if germs are s a quinolone ok Time Spent With Patient Time: Total time spent is greater than 50% in coordination of care (as documented) at patient's floor/unit and/or counseling patient:
[2024-12-11] MEDS: AZITHROMYCIN INJ 500 MG in SODIUM CHLORIDE 0.9% 250 ML 250 ML 250 MG IV (13:35)
--- NOTE | 2024-12-11 14:09 | PC.SS ---
follow up note; Tube feeds again today and will wean patient off fentanyl for possible downgrade. Patient is from Subacute and will return back once medically cleared.
--- NOTE | 2024-12-11 14:48 | ESCONSULT_ITS ---
RE: LIZZIE PEÑA : 1940 DATE OF CONSULTATION: 12/11/2024 REFERRING PHYSICIAN: Dr. Currie. REASON FOR CONSULTATION: The patient had cultures done in August that showed a acinetobacter and Klebsiella from the sputum. 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 We do not know what he is colonized with. It looks like his acinetobacter and Klebsiella are quinolone sensitive, but that drug was not used, instead, Merrem was used. The dose has been given with normal renal function. He has had a bit of shock, so fluids have been administered as well. He has had a course of Zithromax, which finishes today or tomorrow and he may have some chronic inability to open up his airways. His imaging shows left lower lobe pneumonia, which is more atelectatic than anything else on that side. Daily chest x-rays were done in ICU . Radiology suggested aspiration on a baseline chest CT. Chest x-ray shows left lower lobe infiltrate as noted. The patient is on 40% oxygen on a ventilator setting; otherwise interacting, so there is no meaningful interaction or history is obtained entirely from the record, which is limited because he has been mostly subacute. He has left IJ, trach, and PEG. They were all placed elsewhere. His records are somewhat thin here. It is unclear when his first injury occurred or other details. PHYSICAL EXAMINATION: The exam is otherwise benign. Abdomen is benign. Extremities are unremarkable. Neurologic exam is notable for several contractures. We appear to be doing what his family desires, I understand that families have the final say on what we should do. RECOMMENDATIONS: I will follow the micro on wednesday. If his sputum shows the same organism as before, we can switch to quinolone that will be fine. If you want to give anaerobic coverage with Flagyl that would be fine too. DT: 11:52:45 TT: 12:31:00 Ref: [id number] - TID: [id number] MTDD
[2024-12-11 14:49] LABS: Cocci Serology, IgM Negative (Negative)
--- NOTE | 2024-12-11 15:24 | ESPR_ITS ---
Documentation for date of: 12/11/24 Subjective Subjective Interval history: Patient downgraded to team B today. Signout was received by Dr. Uriostegui. Patient seen and examined at bedside. He is nonverbal but tracks with eyes. Tele was reviewed--he is in Afib with rate 100-120. PEG tube in place with feeds resumed. ID on board, recommending to continue meropenam for treatment of PNA until 12/16. Transfer for removal of tracheal mass is pending. Will continue to monitor. Exam Vital Signs Temp Pulse Resp BP Pulse Ox O2 Del Method O2 Flow Rate 97.5 F 94 27 H 145/74 H 100 Mechanical Ventilation 40 12/11/24 08:01 12/11/24 15:00 12/11/24 14:48 12/11/24 15:00 12/11/24 15:00 12/11/24 00:00 12/09/24 05:00 FiO2 35 12/11/24 14:48 Narrative Exam General: Nonverbal at baseline, ill-appearing HEENT: NCAT, No JVD noted. Mucosa dry. Pupils are equal and reactive to light bilaterally, tracheal mass not palpable Cardiovascular: Normal S1 and S2. Irregular rhythm, no murmurs appreciated Respiratory: could not auscultate Abdomen: Soft, nontender, not distended, normal bowel sounds. PEG tube in place with no discharge. Skin: Sacral ulcer covered by clean wound dressing, mottling of the right upper extremity at the level of the shoulder down to mid right upper extremity and cool to touch. Musculoskeletal: No pitting edema, b/L feet in foot pads Neuro: Nonverbal at baseline, pupils were reactive but sluggish. Objective Labs 12/11/24 04:26 12/11/24 04:26 Labs: Laboratory Results - last 24 hr 12/09/24 12/11/24 12/11/24 07:05 04:26 04:40 WBC 7.8 D RBC 3.22 L Hgb 9.4 L Hct 29.8 L MCV 93 MCH 29.2 MCHC 31.5 RDW Std Deviation 57.8 H Plt Count 152 D Neut % (Auto) 90 H Lymph % (Auto) 4 L [place] % (Auto) 6 Eos % (Auto) 0 Baso % (Auto) 0 Neut # (Auto) 7.0 Lymph # (Auto) 0.3 L [place] # (Auto) 0.5 Eos # (Auto) 0.0 Baso # (Auto) 0.0 Immature Gran # (Auto) 0.02 H Absolute Nucleated RBC 0.00 Immature Gran % 0 Nucleated RBC % 0 Puncture Site Right Radial ABG pH 7.40 D ABG pCO2 55 H D ABG pO2 130 H D ABG HCO3 34 H ABG O2 Saturation 100 H ABG Base Excess 8 H FiO2 40 Sodium 146 H Potassium 4.0 Chloride 107 Carbon Dioxide 32.5 H Anion Gap 7 BUN 17 Creatinine 0.4 L Estim Creat Clear Calc 133.0 eGFR > 60 BUN/Creatinine Ratio 43 H Glucose 160 H Calculated Osmolality 295 Calcium 8.6 Corrected Calcium 9.1 Phosphorus 1.6 L Magnesium 2.2 Total Bilirubin 0.5 AST 14 ALT 11 Alkaline Phosphatase 67 Total Protein 6.4 Albumin 3.4 Globulin 3.0 Albumin/Globulin Ratio 1.1 L Coccidioides IgM Ab Negative ABG Interpretation ABG results: 12/08/24 12/08/24 12/09/24 11:55 21:28 01:30 ABG pH 7.35 7.32 L ABG pCO2 49 H 50 H ABG pO2 281 H 223 H D ABG HCO3 27 H 26 ABG O2 Saturation 101 H 101 H ABG Base Excess 1 -1 VBG pH 7.28 L VBG pCO2 58 H VBG pO2 75 H VBG Base Excess -1 12/09/24 12/09/24 12/09/24 04:15 09:38 11:03 ABG pH 7.39 7.04 L* D 7.21 L D ABG pCO2 48 120 H* D 76 H* D ABG pO2 154 H D 85 D 102 ABG HCO3 29 H 32 H 30 H ABG O2 Saturation 100 H 91 98 ABG Base Excess 3 -2 1 VBG pH VBG pCO2 VBG pO2 VBG Base Excess 12/10/24 12/10/24 12/11/24 04:53 09:34 04:40 ABG pH 7.40 D 7.28 L D 7.40 D ABG pCO2 51 H D 68 H D 55 H D ABG pO2 130 H D 94 D 130 H D ABG HCO3 31 H 31 H 34 H ABG O2 Saturation 100 H 76 L 100 H ABG Base Excess 6 H 3 8 H VBG pH VBG pCO2 VBG pO2 VBG Base Excess Quality Measures Quality Measures sepsis Current suspected stage: ruled out Possible source: pulmonary Blood cultures ordered: completed in ED Antibiotic ordered: Yes Advance care planning discussed with:: legal surragate Assessment & Plan Assessment Current Active Medications: Generic Name Dose Route Start Last Admin Trade Name Freq PRN Reason Stop Dose Admin Acetaminophen 650 mg 12/08/24 14:16 Acetaminophen 325 Mg Tablet PO 01/07/25 14:15 Q6H PRN Fever >101.5 Acetylcysteine 3 ml 12/09/24 15:00 12/11/24 14:46 Acetylcysteine Rt Emma 10% 4 Ml Nebu INH 01/08/25 14:59 3 ml Q4HRRT KURT Administration Albuterol/Ipratropium 3 ml 12/08/24 23:00 12/11/24 14:47 Albuterol/Ipratropium (Duoneb) Rt Emma 3 Ml Nebu INH 01/07/25 22:59 3 ml Q4HRRT KURT Administration Heparin Sodium (Porcine) 5,000 unit 12/08/24 22:00 12/11/24 13:47 Heparin Sod Inj 5000 Unit/Ml Vial SC 12/22/24 21:59 5,000 unit Q8HR KURT Administration Vancomycin HCl 250 mls @ 120 mls/hr 12/09/24 10:00 12/11/24 10:42 Vancomycin/Water 1250 Mg Ivpb IV 12/16/24 09:59 120 mls/hr Q12H KURT Administration Meropenem 1,000 mg/ Sodium 50 mls @ 100 mls/hr 12/09/24 10:00 12/11/24 13:35 Chloride IV 12/16/24 09:59 100 mls/hr Q8HR KURT Administration Protocol Metoclopramide HCl 10 mg 12/08/24 14:16 Metoclopramide Inj 5 Mg/Ml Vial 2 Ml IVP 01/07/25 14:15 Q6H PRN NAUSEA OR VOMITING Protocol Metoprolol Succinate 50 mg 12/11/24 09:00 12/11/24 08:50 Metoprolol Succinate Xl 25 Mg Tabcr GT 01/10/25 08:59 50 mg QDAY KURT Administration Pharmacy Consult 1 each 12/09/24 09:00 Vancomycin Pharmacy To Dose 1 Each Each IV 01/08/25 08:59 QDAY PRN PROTOCOL Sodium Chloride 3 ml 12/08/24 19:30 12/08/24 20:13 Sodium Chloride Rt Emma 0.9% 3 Ml Nebu INH 01/07/25 19:29 3 ml PRN PRN Administration SOLN Plan Marek Roy is 84-year-old male with significant medical history for CVA, tracheostomy, PEG tube, hypertension, hyperlipidemia, A-fib and DM2 who was upgraded to the ICU due to septic shock requiring pressors. BP improved with levophed and weaned off. However, was desaturating. Bronchoscopy done on 12/10 showed tracheal mass causing hypoxia. Patient downgraded to floors on 12/11 for continued care. #Acute on chronic hypoxic respiratory failure #Community-acquired pneumonia #Respiratory acidosis #Tracheal mass #Chronic tracheostomy Chest x-ray shows vascular congestion and there can be some underlying consolidations on the left base Patient underwent bronchoscopy 12/10 and was noted to have a tracheal mass right underneath the tracheostomy. This is suspected to be a possible reason of patient's hypoxic episodes which rapidly resolves. Patient's chest CTA did not show any pulmonary embolism ?Transfer to tertiary care center for tracheal mass removal or biopsy by thoracic surgeon or thermal cutting tracer machine operator. ? Continue vancomycin [12/08/2024?] ?Continue meropenem 1000 mg every 8 hours [12/09/2024?] Azithromycin discontinued today [12/08/2024-12/11/2024] ? DuoNebs every 4 hours ? Blood cultures and sputum cultures negative -Dilaudid 1 mg q4hr PRN for hypoxia respiratory distress, breath, anxiety #Complicated UTI History of ESBL, resistance to cefepime in the past ? On meropenem ?Urine culture negative #History of A-fib, not rate controlled EKG showed A-fib [id number] -continue metoprolol succinate 50 mg daily -Echo pending #PEG tube feeding -feeds were resumed today ?Will monitor electrolytes for refeeding syndrome ? Referral to dietitian #DM2, controlled Last A1c 4.9 on February 2024 Plan: ? Q6h bedside glucose checks #Septic shock-resovled #NSTEMI type II likely supply demand ischemia-resolved #Nonverbal and bedbound #History of CVA # Lactic acidosis, resolved #Leukocytosis #Normocytic anemia ?Hemoglobin 9.4 today ?No active signs of bleeding ?Will continue to monitor with daily labs Health maintenance: Diet: PEG feeds DVT/PPx: Heparin GI ppx: not indicated Lines: PEG tube, Gibson Code Status: DNR Dispo: Downgrade to medical floors and pending transfer The patient's management plan was discussed with my attending physician Dr. Nguyen. Anen Cano, PGY-1 Attending Provider Attestation/Addendum I attest that I was physically present for the evaluation, physical examination, lab and imaging review of the patient with the residents. I discussed the case with the residents and agree with the findings and plans of care as documented above. 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 Patient was initially admitted to floor for management of acute on chronic hypoxic respiratory failure secondary to pneumonia. He also had hypotension which worsened despite IV fluids and was then transferred to ICU. In the ICU, patient received Levophed gtt., broad- spectrum IV antibiotics with meropenem. Patient started improving on his blood pressure, but started having desaturations, bronchoscopy was done, he was found to have a tracheal mass right below the tracheostomy site. Transfer process has been started to tertiary center for biopsy/excision of the mass from a thoracic surgeon or thermal cutting tracer machine operator. This morning, patient was taken off of Levophed gtt. He has been maintaining his blood pressure well. Patient is also able to come down on FiO2 need, currently at 35%. Has been started on tube feeds, sedation has been getting weaned off. Patient is transferred to medical floors for further management until gets transferred to higher center for the surgery. At bedside, patient appears comfortable,Was able to open his eyes, respond to pain, but nonverbal and does not follow commands, continues to be on mechanical ventilator, 35% FiO2, PEEP of 5, tidal volume 420. Noted to have slight elevation on sodium to 146. Phosphorus was 1.6, has been repleted. Continues to be on vancomycin and meropenem. Shania Nguyen MD
--- NOTE | 2024-12-11 16:55 | PD.RESDS ---
Planned Discharge Date 12/11/24 DS: Providers Provider Date of admission: 12/08/24 14:16 Primary care physician: Physician No Primary/Family Admitting Provider: Kavon Currie MD Attending Provider on Admission: Wendy Fowler MD Consults: 12/08/24 18:03 Referral Registered Dietitian Stat Comment: PEG tube feed 12/09/24 10:09 Consult to Infectious Diseases Urgent Comment: MEROPENEM Consulting Provider: Noe Lala 12/10/24 12:26 Referral - Metal Polisher And Buffer Apprentice Stat Service Needed for Transfer: Cardiovascular/Thoracic Surg Addl Comments:: For tracheal mass occluding tracheostomy Attending Provider on DC: Wendy Fowler MD Discharging Provider: Shankar Smiley MD DS: Diagnosis Problem List Completed Was Problem List Reviewed/Reconciled?: Yes Hospital Course Hospital Course Hospital course: 84-year-old male patient with significant medical history for CVA, tracheostomy, PEG tube, hypertension, hyperlipidemia, A-fib and DM2 was admitted to the medical floors on 12/08/2024 after coming from [facility] due to shortness of breath. In the ED patient was reported to have increased work of breathing and ventilator settings. At baseline patient is on blow-by. Initially came in and had normotensive, tachycardia, afebrile, and tachypneic. Initial labs were relevant for leukocytosis (16.8), lactic acidosis, troponinemia, and bacteriuria. Initial imaging also included chest x-ray which showed some CHF pattern and some infiltrates in the left lower and right upper lobe; head CT was did not show any acute changes, and EKG that showed a flutter. Overnight on the same day of admission patient became hypotensive with a MAP of around 55 which was refractory to IV fluids therefore he was placed on low-dose Levophed and upgraded to the ICU. In the ICU patient was taken off Levophed the next morning and his blood pressure sustained, but he had some episodes of desaturations which quickly resolved and was also noted to have some mottling of the right upper extremity. Patient required vasopressors on and off therefore a central line was placed as well as a arterial line to better monitor his blood pressure and get more frequent ABGs. Chest CTA was ordered given patient's tachycardia, hypoxia, and mildly on the right upper extremities, but this was delayed given patient's instability with hypoxia and requiring vasopressors. Bronchoscopy was done on 12/10/2024 to assess why patient was still having episodes of hypoxia which quickly resolved with minimal intervention. Patient was found to have a tracheal mass right beneath the tracheostomy, with could be causing patient's episodes of hypoxia when he coughs or moves. At this time it was decided that given these findings patient would benefit from transfer for possible excision or biopsy of the mass as patient's family stated they would like to proceed with further treatment of this. To try and minimize episodes of hypoxia patient was placed on sedation with some paralytics to try and minimize movements which could cause obstruction of his tracheostomy. Chest CTA done on the showed a pretracheal benign appearing lymph node measuring 10 mm. Patient received IV antibiotics with meropenem and vancomycin given that past cultures grew ESBL from ET secretions. At this time patient has been off pressors and off sedation and he is stable enough to be transfer for higher level of care. Discharge plan: Transfer to a higher level of care facility for cardiothoracic surgery or pulmonology consult for possible excision or biopsy of tracheal mass Problem list: #Acute on chronic hypoxic respiratory failure #Community-acquired pneumonia #Respiratory acidosis #Tracheal mass #Chronic tracheostomy #Nonverbal and bedbound #History of CVA #Shock, resolved #History of A-fib, not rate controlled #NSTEMI type II likely supply demand ischemia, resolved Case disclosed with Attending Dr. Malcolm Smliey PGY1 Time Spent with Patient Time attestation: Total time spent providing and/or coordinating discharge services:>35 min Time spent: Greater than 30 minutes Exam Vital Signs Temp Pulse Resp BP Pulse Ox O2 Del Method O2 Flow Rate 97.5 F 94 27 H 145/74 H 100 Mechanical Ventilation 40 12/11/24 08:01 12/11/24 15:00 12/11/24 14:48 12/11/24 15:00 12/11/24 15:00 12/11/24 00:00 12/09/24 05:00 FiO2 35 12/11/24 14:48 Narrative Exam General: Nonverbal at baseline, ill-appearing Eyes: Pupils reactive to light, eyes opened today, unable to track Ears: No visible ear discharge or bruising Nose: No visible nasal discharge Mouth/Throat: Dry mucous membranes, no redness, no lesions. Neck: Neck supple, no cervical lymphadenopathy appreciated. Lungs: Clear FORREST Cardio: Normal S1/S2, irregular rhythm, no murmurs appreciated, no JVD Abdomen: Soft, no palpable masses, peristalsis present, no guarding or rebound. PEG tube in place with no discharge. Extremities: Hands were warm to touch and no discoloration noted. trace edema bilaterally, onycholysis on bilateral feet Skin: Sacral ulcer covered by clean wound dressing, mottling of the right upper extremity at the level of the shoulder down to mid right upper extremity and cool to touch. Neuro: Nonverbal at baseline, pupils were reactive but sluggish. Discharge Plan Plan Disposition Comment: Hospitalist Prescriptions/Referrals Prescriptions/Med Rec: No Action carvedilol [Coreg] 3.125 mg Tablet 3.125 mg feeding tube BID atorvastatin [Lipitor] 40 mg Tablet 40 mg feeding tube QDAY Lantus U-100 Insulin 100 unit/mL Solution 30 unit SUBCUT HS Rx Instructions: 2200 cyanocobalamin (vitamin B-12) [Vitamin B-12] 1,000 mcg Tablet 1,000 mcg feeding tube QDAY bisacodyl [Dulcolax (bisacodyl)] 10 mg Suppository 10 mg VT Q72H PRN (Reason: Constipation) Dexilant 30 mg Capsule,Biphase Delayed Releas 30 mg feeding tube QDAY polyethylene glycol 3350 [Miralax] 17 gram Powder In Packet 17 g feeding tube QDAY PRN (Reason: Constipation) acetaminophen [Tylenol] 325 mg Capsule 650 mg feeding tube Q6HR PRN (Reason: Pain) magnesium hydroxide [Milk of Magnesia] 400 mg/5 mL Suspension 30 ml feeding tube Q48H PRN (Reason: Constipation) Fleet Enema 19-7 gram/118 mL Enema 118 ml VT Q72H PRN (Reason: constipation ) multivitamin with minerals Tablet 1 tab PO QDAY levofloxacin 750 mg tablet 750 mg PO Q24H Qty: 10 0RF levofloxacin 750 mg tablet 750 mg PO Q24H Qty: 7 0RF Referrals: No Primary/Family,Physician [Primary Care Provider] - Patient/Caregiver Discharge Instructions Print Language: Vietnamese Quality Discharge Quality Measures VTE prophylaxis
[2024-12-12] VITALS (59 sets, daily range): BP systolic 77–183; BP diastolic 47–124; PULSE 65–162; RESP 0–36; TEMP 36.6–37.1; O2SAT 91–100; BMI 24.7
[2024-12-12] MEDS: ACETYLCYSTEINE RT SOL 10% 4 ML NEBU 3 ML INH ×6 (02:15→22:40)
[2024-12-12] MEDS: ALBUTEROL/IPRATROPIUM (Duoneb) RT SOL 3 ML NEBU INH ×6 (02:15→22:40)
[2024-12-12 04:52] LABS: Base Excess 9 (-3-3); HCO3 33 mEq/L (20-26); Inspired Oxygen, FIO2 35 %; O2 Saturation 101 % (91-98); PCO2 46 mmHg (32.0-48.0); PO2 145 mmHg (83-108); pH, Arterial 7.47 (7.35-7.45)
[2024-12-12 04:53] LABS: Allen Test Performed/OK; Puncture Site Left Radial
[2024-12-12] MEDS: MEROPENEM INJ 1,000 MG in SODIUM CHLORIDE 0.9% (Popper) 50 ML 100 MG IV ×3 (05:38→22:06)
[2024-12-12] MEDS: HEPARIN SOD INJ 5000 UNIT/ML VIAL SC ×3 (05:40→22:06)
[2024-12-12] MEDS: METOPROLOL SUCCINATE XL 25 MG TABCR 50 MG GT (09:02)
[2024-12-12] MEDS: VANCOMYCIN/WATER 1250 MG IVPB 250 ML 120 MG IV ×2 (10:18→22:09)
--- NOTE | 2024-12-12 11:23 | PC.CC ---
Addendum entered by Deepali Spencer RN 12/12/24 14:51: [id number] Cantor from [facility] called, still looking at patient. Updated them on ICU phone number. Original Note: 1123- pt downgraded to Tele, contacted [facility], downgrade Tele orders faxed. Provided Dr. Mcadams contact information.
[2024-12-12 12:41] LABS: Cocci Serology, IgG Negative (Negative)
[2024-12-12] MEDS: METOPROLOL SUCCINATE XL 25 MG TABCR PO (12:45)
[2024-12-12] MEDS: carVEDILOL 3.125 MG TABLET PO (13:30)
[2024-12-12] MEDS: HYDROmorphone INJ 2 MG/ML VIAL 1 MG IVP (14:26)
--- NOTE | 2024-12-12 14:26 | XR_ITS ---
Examination: AP chest single view Technique one AP portable semiupright chest single view Exam date and time: December 12, 2024 at 1442 hours Comparison December 11, 2024 INDICATIONS: ICU patient with difficulty breathing FINDINGS: Interval prominent bilateral lung opacity consistent with pneumonia Tracheostomy tube tip 8.5 cm above carlo Left internal jugular central line tip right atrium Mild prominence left ventricle Prominent vascular congestion IMPRESSION: Interval extensive bilateral pneumonia Consider mild associated heart failure
--- NOTE | 2024-12-12 14:29 | PC.NURSE ---
Dr. Jara made aware of patient desaturating and tachycardia. MDs at bedside now
--- NOTE | 2024-12-12 15:05 | PC.NURSE ---
Patient desaturating to the low 50's on mechanical vent. HR in the 170's. Patient was then bagged and MD Jara was made aware. MD Mcadams at bedside assessing patient. CXR ordered STAT.
[2024-12-12] MEDS: FUROSEMIDE INJ 10 MG/ML 4ML VIAL 40 MG IVP (15:07)
[2024-12-12 15:19] LABS: Lactate (Lactic Acid) 1.2 mMol/L (0.4-2.0)
[2024-12-12 15:50] LABS: Alanine Aminotransferase 134 U/L (10-49); Albumin, Serum 3.6 gm/dL (3.4-4.8); Albumin/Globulin Ratio 1.1 (1.2-2.2); Alkaline Phosphatase 122 U/L (46-116); Anion Gap 5 (7-16); Aspartate Amino Transferase 125 U/L (0-34); BUN/Creatinine Ratio 50 Ratio (12-20); Bilirubin,Total 0.6 mg/dL (0.3-1.2); Blood Urea Nitrogen 25 mg/dL (9-23); Calcium 8.7 mg/dL (8.3-10.6); Carbon Dioxide 35.5 mMol/L (20.0-31.0); Chloride 108 mMol/L (98-107); Creatinine (Component) 0.5 mg/dL (0.6-1.3); Estimated Creatinine Clearance 106.4 mL/min (>60); Globulin 3.2 gm/dL (2.3-3.5); Glucose 161 mg/dL (74-106); Osmolality,Calculated 301 (275-295); Sodium 148 mMol/L (136-145); Total Protein 6.8 gm/dL (5.7-8.2); eGFR > 60 See Note
[2024-12-12 16:26] LABS: Basophils % (Auto) 0 % (0-2.5); Eosinophils % (Auto) 0 % (0-10); Hematocrit 35.1 % (41.0-53.0); Hemoglobin 10.7 g/dL (13.5-16.0); Immature Granulocytes % (Auto) 1 % (0-0); Immature Granulocytes Auto 0.09 Thou/mm3 (0.00-0.00); Lymphocytes # (Auto) 0.9 Thou/mm3 (1.0-4.8); Lymphocytes % (Auto) 7 % (10-50); Mean Corpuscular HGB Conc 30.5 g/dl (31.0-37.0); Mean Corpuscular Hemoglobin 29.7 pg (25.0-35.0); Mean Corpuscular Volume 98 fL (80-100); Monocytes # (Auto) 1.4 Thou/mm3 (0.0-0.8); Monocytes % (Auto) 10 % (0-12); Neutrophils # (Auto) 11.4 Thou/mm3 (1.8-7.7); Neutrophils % (Auto) 83 % (37-80); Nucleated Red Blood Cell # 0.02 Thou/mm3 (0.00-0.00); Nucleated Red Blood Cell % 0 /100 WBC (0); Platelet Count 220 Thou/mm3 (140-440); RDW Standard Deviation 63.8 fL (35.1-43.9); White Blood Count 13.7 Thou/mm3 (3.8-10.6)
--- NOTE | 2024-12-12 18:04 | PD.RESPRO ---
Documentation for date of: 12/12/24 Subjective Subjective Interval history: Patient examined at bedside. Overnight, patient would desaturate intermittently with any movement. Oxygenation would stabilize for some time with bagging. Vitals significant for hypertension systolic 140?150, tachycardia 130?140s. Patient was given additional metoprolol 25 mg x 1 on top of scheduled 50 mg. Also resumed Coreg 3.125 twice daily. Telemetry reviewed and patient remains in A-fib. Per chart review, he has history of hemorrhagic stroke, therefore not started on any anticoagulants. However rate control is poor. Patient has been accepted to [facility] for surgery of tracheal mass. However no beds are available at this time. With deteriorating respiratory status, patient's son was contacted to discuss prognosis if he does not get transferred in the upcoming days. Will continue to closely monitor and Dilaudid 1 mg q4hr PRN for hypoxia respiratory distress, breath, anxiety Exam Vital Signs Temp Pulse Resp BP Pulse Ox O2 Del Method O2 Flow Rate 97.9 F 114 H 36 H 183/86 H 100 Mechanical Ventilation 40 12/12/24 16:00 12/12/24 17:05 12/12/24 14:07 12/12/24 17:05 12/12/24 17:05 12/11/24 00:00 12/09/24 05:00 FiO2 100 12/12/24 15:00 Narrative Exam General: Nonverbal at baseline, ill-appearing HEENT: NCAT, No JVD noted. Mucosa dry. Pupils are equal and reactive to light bilaterally, tracheal mass not palpable Cardiovascular: Normal S1 and S2. Irregular rhythm, irregular rate, no murmurs appreciated Respiratory: could not auscultate Abdomen: Soft, nontender, not distended, normal bowel sounds. PEG tube in place with no discharge. Skin: Sacral ulcer covered by clean wound dressing Musculoskeletal: No pitting edema, b/L feet in foot pads Neuro: Nonverbal at baseline, pupils were reactive but sluggish, does not track Objective Labs 12/12/24 15:06 12/12/24 15:06 Labs: Laboratory Results - last 24 hr 12/09/24 12/12/24 12/12/24 07:05 04:35 15:06 WBC 13.7 H D RBC 3.60 L Hgb 10.7 L Hct 35.1 L MCV 98 MCH 29.7 MCHC 30.5 L RDW Std Deviation 63.8 H Plt Count 220 D Neut % (Auto) 83 H Lymph % (Auto) 7 L [place] % (Auto) 10 Eos % (Auto) 0 Baso % (Auto) 0 Neut # (Auto) 11.4 H Lymph # (Auto) 0.9 L [place] # (Auto) 1.4 H Eos # (Auto) 0.0 Baso # (Auto) 0.0 Immature Gran # (Auto) 0.09 H Absolute Nucleated RBC 0.02 H Immature Gran % 1 H Nucleated RBC % 0 Puncture Site Left Radial ABG pH 7.47 H ABG pCO2 46 ABG pO2 145 H ABG HCO3 33 H ABG O2 Saturation 101 H ABG Base Excess 9 H FiO2 35 Sodium 148 H Potassium 5.0 D Chloride 108 H Carbon Dioxide 35.5 H Anion Gap 5 L BUN 25 H Creatinine 0.5 L Estim Creat Clear Calc 106.4 eGFR > 60 BUN/Creatinine Ratio 50 H Glucose 161 H Calculated Osmolality 301 H Lactic Acid 1.2 Calcium 8.7 Corrected Calcium 9.0 Total Bilirubin 0.6 AST 125 H ALT 134 H Alkaline Phosphatase 122 H D Total Protein 6.8 Albumin 3.6 Globulin 3.2 Albumin/Globulin Ratio 1.1 L Coccidioides IgG Ab Negative ABG Interpretation ABG results: 12/08/24 12/08/24 12/09/24 11:55 21:28 01:30 ABG pH 7.35 7.32 L ABG pCO2 49 H 50 H ABG pO2 281 H 223 H D ABG HCO3 27 H 26 ABG O2 Saturation 101 H 101 H ABG Base Excess 1 -1 VBG pH 7.28 L VBG pCO2 58 H VBG pO2 75 H VBG Base Excess -1 12/09/24 12/09/24 12/09/24 04:15 09:38 11:03 ABG pH 7.39 7.04 L* D 7.21 L D ABG pCO2 48 120 H* D 76 H* D ABG pO2 154 H D 85 D 102 ABG HCO3 29 H 32 H 30 H ABG O2 Saturation 100 H 91 98 ABG Base Excess 3 -2 1 VBG pH VBG pCO2 VBG pO2 VBG Base Excess 12/10/24 12/10/24 12/11/24 04:53 09:34 04:40 ABG pH 7.40 D 7.28 L D 7.40 D ABG pCO2 51 H D 68 H D 55 H D ABG pO2 130 H D 94 D 130 H D ABG HCO3 31 H 31 H 34 H ABG O2 Saturation 100 H 76 L 100 H ABG Base Excess 6 H 3 8 H VBG pH VBG pCO2 VBG pO2 VBG Base Excess 12/12/24 04:35 ABG pH 7.47 H ABG pCO2 46 ABG pO2 145 H ABG HCO3 33 H ABG O2 Saturation 101 H ABG Base Excess 9 H VBG pH VBG pCO2 VBG pO2 VBG Base Excess Quality Measures Quality Measures VTE prophylaxis Advance care planning discussed with:: child Assessment & Plan Assessment Current Active Medications: Generic Name Dose Route Start Last Admin Trade Name Freq PRN Reason Stop Dose Admin Acetaminophen 650 mg 12/08/24 14:16 Acetaminophen 325 Mg Tablet PO 01/07/25 14:15 Q6H PRN Fever >101.5 Acetylcysteine 3 ml 12/09/24 15:00 12/12/24 14:06 Acetylcysteine Rt Emma 10% 4 Ml Nebu INH 01/08/25 14:59 3 ml Q4HRRT KURT Administration Albuterol/Ipratropium 3 ml 12/08/24 23:00 12/12/24 14:06 Albuterol/Ipratropium (Duoneb) Rt Emma 3 Ml Nebu INH 01/07/25 22:59 3 ml Q4HRRT KURT Administration Carvedilol 3.125 mg 12/12/24 13:10 12/12/24 13:30 Carvedilol 3.125 Mg Tablet PO 01/11/25 13:09 3.125 mg BIDWM KURT Administration Heparin Sodium (Porcine) 5,000 unit 12/08/24 22:00 12/12/24 13:36 Heparin Sod Inj 5000 Unit/Ml Vial SC 12/22/24 21:59 5,000 unit Q8HR KURT Administration Hydromorphone HCl 1 mg 12/11/24 15:30 12/12/24 14:26 Hydromorphone Inj 2 Mg/Ml Vial IVP 12/16/24 15:29 1 mg Q4HR PRN Administration SOB, anxiety Vancomycin HCl 250 mls @ 120 mls/hr 12/09/24 10:00 12/12/24 10:18 Vancomycin/Water 1250 Mg Ivpb IV 12/16/24 09:59 120 mls/hr Q12H KURT Administration Meropenem 1,000 mg/ Sodium 50 mls @ 100 mls/hr 12/09/24 10:00 12/12/24 13:30 Chloride IV 12/16/24 09:59 100 mls/hr Q8HR KURT Administration Protocol Metoclopramide HCl 10 mg 12/08/24 14:16 Metoclopramide Inj 5 Mg/Ml Vial 2 Ml IVP 01/07/25 14:15 Q6H PRN NAUSEA OR VOMITING Protocol Metoprolol Succinate 50 mg 12/11/24 09:00 12/12/24 09:02 Metoprolol Succinate Xl 25 Mg Tabcr GT 01/10/25 08:59 50 mg QDAY KURT Administration Pharmacy Consult 1 each 12/09/24 09:00 Vancomycin Pharmacy To Dose 1 Each Each IV 01/08/25 08:59 QDAY PRN PROTOCOL Sodium Chloride 3 ml 12/08/24 19:30 12/08/24 20:13 Sodium Chloride Rt Emma 0.9% 3 Ml Nebu INH 01/07/25 19:29 3 ml PRN PRN Administration SOLN Plan Marek Roy is 84-year-old male with significant medical history for CVA, tracheostomy, PEG tube, hypertension, hyperlipidemia, A-fib and DM2 who was upgraded to the ICU due to septic shock requiring pressors. BP improved with levophed and weaned off. However, was desaturating. Bronchoscopy done on 12/10 showed tracheal mass causing hypoxia. Patient downgraded to floors on 12/11 for continued care. #Acute on chronic hypoxic respiratory failure #Community-acquired pneumonia #Respiratory acidosis #Tracheal mass #Chronic tracheostomy Chest x-ray shows vascular congestion and there can be some underlying consolidations on the left base Patient underwent bronchoscopy 12/10 and was noted to have a tracheal mass right underneath the tracheostomy. This is suspected to be a possible reason of patient's hypoxic episodes which rapidly resolves. Patient's chest CTA did not show any pulmonary embolism Azithromycin [12/08/2024-12/11/2024] ?Transfer to tertiary care center for tracheal mass removal or biopsy by thoracic surgeon or ed special education teacher.: accepted to [facility] but no beds available yet. ? Continue vancomycin [12/08/2024?] ?Continue meropenem 1000 mg every 8 hours [12/09/2024?] ? DuoNebs every 4 hours ? Blood cultures and sputum cultures negative -Dilaudid 1 mg q4hr PRN for hypoxia respiratory distress, breath, anxiety #Complicated UTI History of ESBL, resistance to cefepime in the past ? On meropenem ?Urine culture negative #History of A-fib, not rate controlled EKG showed A-fib [id number] Per chart review, he has history of hemorrhagic stroke, therefore not started on any anticoagulants. -continue metoprolol succinate 50 mg daily -resume Coreg 3.125mg BID -Echo pending #PEG tube feeding -feeds were resumed today ?Will monitor electrolytes for refeeding syndrome ? Referral to dietitian #DM2, controlled Last A1c 4.9 on February 2024 Plan: ? Q6h bedside glucose checks #Septic shock-resovled #NSTEMI type II likely supply demand ischemia-resolved #Nonverbal and bedbound #History of CVA # Lactic acidosis, resolved #Leukocytosis #Normocytic anemia ?Hemoglobin 9.4 today ?No active signs of bleeding ?Will continue to monitor with daily labs Health maintenance: Diet: PEG feeds DVT/PPx: Heparin GI ppx: not indicated Lines: PEG tube, Gibson Code Status: DNR Dispo: pending transfer The patient's management plan was discussed with my attending physician Dr. Mcadams. Anne Cano, PGY-1 Attending Provider Attestation/Addendum I have discussed and was present for the essential components of the history, physical examination, diagnosis, and treatment plan with the resident. I agree with the patient's care as documented by the resident and amended herein by me. Rob Mcadams DO. Although this document has been carefully reviewed, there may still be some phonetic and other typographical errors. These errors are purely grammatical due to imperfections in the software program and should not be construed in any way to compromise the substance of the patient's medical care during this visit.
[2024-12-13] VITALS (19 sets, daily range): BP systolic 115–165; BP diastolic 67–96; PULSE 56–124; RESP 19–35; TEMP 35.9–37.3; O2SAT 98–100; BMI 24.4
[2024-12-13] MEDS: ACETYLCYSTEINE RT SOL 10% 4 ML NEBU 3 ML INH ×4 (02:40→22:29)
[2024-12-13] MEDS: ALBUTEROL/IPRATROPIUM (Duoneb) RT SOL 3 ML NEBU INH ×5 (02:40→22:29)
[2024-12-13 05:46] LABS: Basophils % (Auto) 0 % (0-2.5); Eosinophils % (Auto) 0 % (0-10); Hematocrit 31.5 % (41.0-53.0); Hemoglobin 9.9 g/dL (13.5-16.0); Immature Granulocytes % (Auto) 1 % (0-0); Immature Granulocytes Auto 0.03 Thou/mm3 (0.00-0.00); Lymphocytes # (Auto) 0.7 Thou/mm3 (1.0-4.8); Lymphocytes % (Auto) 13 % (10-50); Mean Corpuscular HGB Conc 31.4 g/dl (31.0-37.0); Mean Corpuscular Hemoglobin 29.6 pg (25.0-35.0); Mean Corpuscular Volume 94 fL (80-100); Monocytes # (Auto) 0.4 Thou/mm3 (0.0-0.8); Monocytes % (Auto) 7 % (0-12); Neutrophils # (Auto) 4.4 Thou/mm3 (1.8-7.7); Neutrophils % (Auto) 79 % (37-80); Nucleated Red Blood Cell # 0.02 Thou/mm3 (0.00-0.00); Nucleated Red Blood Cell % 0 /100 WBC (0); Platelet Count 109 Thou/mm3 (140-440); RDW Standard Deviation 60.8 fL (35.1-43.9); Red Blood Count 3.35 Miln/mm3 (4.50-5.90); White Blood Count 5.5 Thou/mm3 (3.8-10.6)
[2024-12-13] MEDS: HEPARIN SOD INJ 5000 UNIT/ML VIAL SC (06:02)
[2024-12-13] MEDS: MEROPENEM INJ 1,000 MG in SODIUM CHLORIDE 0.9% (Popper) 50 ML 100 MG IV ×3 (06:02→21:19)
[2024-12-13 06:16] LABS: Alanine Aminotransferase 91 U/L (10-49); Albumin, Serum 3.2 gm/dL (3.4-4.8); Albumin/Globulin Ratio 1.1 (1.2-2.2); Alkaline Phosphatase 101 U/L (46-116); Anion Gap 7 (7-16); Aspartate Amino Transferase 52 U/L (0-34); BUN/Creatinine Ratio 40 Ratio (12-20); Bilirubin,Total 0.8 mg/dL (0.3-1.2); Blood Urea Nitrogen 20 mg/dL (9-23); Calcium 8.6 mg/dL (8.3-10.6); Calcium (Corrected) 9.2 mg/dL (8.5-10.1); Carbon Dioxide 35.4 mMol/L (20.0-31.0); Chloride 105 mMol/L (98-107); Creatinine (Component) 0.5 mg/dL (0.6-1.3); Estimated Creatinine Clearance 106.4 mL/min (>60); Globulin 2.9 gm/dL (2.3-3.5); Glucose 129 mg/dL (74-106); Osmolality,Calculated 297 (275-295); Sodium 147 mMol/L (136-145); Total Protein 6.1 gm/dL (5.7-8.2); eGFR > 60 See Note
--- NOTE | 2024-12-13 08:45 | PC.CM ---
Addendum entered by Bonnie Padilla RN 12/13/24 18:14: Patient has been accepted by [facility]. They do no have any beds available. I called [facility] to make sure they were aware patient is in telemetry status. The transfer nurse states they will still be placing the patient in an ICU bed because he is a chronic vent patient. I updated Dr. Mcadams. Packet updated and left at nurses station. Addendum entered by Bonnie Padilla RN 12/13/24 16:51: I received a call back from [facility] and I spoke to the transfer nurse Maritza. She states their doctor reviewed patient and he declined patient. Maritza stated he recommends palliative care and our doctors should be having a goal of care meeting with family. I spoke to the doctors and I let them know patient was declined for transfer and the reason why he was declined. Dr. Mcadams states they have had many meeting with the family and they still want to pursue higher level of care. Addendum entered by Bonnie Padilla RN 12/13/24 08:56: i called [facility] transfer center. I left a message for them to call me back to discuss transfer request. Original Note: I called [facility] today to speak to transfer nurse Ray. He states they do not have any open telemetry beds at this time. I provided my direct number again and I also made sure they have Dr. Luke direct phone number.
[2024-12-13] MEDS: carVEDILOL 3.125 MG TABLET PO ×2 (09:52→17:32)
[2024-12-13] MEDS: METOPROLOL SUCCINATE XL 25 MG TABCR 50 MG GT (09:53)
[2024-12-13 10:26] LABS: Vancomycin,Trough 22.1 mcg/mL (5.0-10.0)
--- NOTE | 2024-12-13 13:45 | PC.NURSE ---
Notified Dr. Arreola of pt being npo with no tube feeding or water flushes, Dr. Arreola ordered 25ml/hr water flushes. Notified Dr. Arreola of no BM documentation since patient stay at hospital.
--- NOTE | 2024-12-13 14:47 | ESPR_ITS ---
Documentation for date of: 12/13/24 Subjective Subjective Interval history: Patient examined at bedside. No events overnight. Transferred to [facility] for surgical removal of tracheal mass is pending. No beds are available at institution. Patient remains in A-fib adequately rate controlled 70?80. Saturating 100% on 80% FiO2. Attempt to titrate daily. Continue meropenem for pneumonia and Dilaudid pushes as needed for anxiety/agitation. Will continue to monitor closely. Exam Vital Signs Temp Pulse Resp BP Pulse Ox O2 Del Method O2 Flow Rate 96.9 F 75 22 H 141/77 H 100 Mechanical Ventilation 40 12/13/24 12:00 12/13/24 12:00 12/13/24 12:00 12/13/24 12:00 12/13/24 12:00 12/13/24 12:00 12/13/24 12:00 FiO2 80 12/13/24 12:00 Narrative Exam General: Nonverbal at baseline, ill-appearing HEENT: NCAT, No JVD noted. Mucosa dry. Pupils are equal and reactive to light bilaterally, tracheal mass not palpable Cardiovascular: Normal S1 and S2. Irregular rhythm, rate controlled, no murmurs appreciated Respiratory: could not auscultate Abdomen: Soft, nontender, not distended, normal bowel sounds. PEG tube in place with no discharge. Skin: Sacral ulcer covered by clean wound dressing Musculoskeletal: No pitting edema, b/L feet in foot pads Neuro: Nonverbal at baseline, pupils were reactive but sluggish, does not track Objective Labs 12/13/24 04:36 12/13/24 04:36 Labs: Laboratory Results - last 24 hr 12/12/24 12/13/24 12/13/24 15:06 04:36 09:49 WBC 13.7 H D 5.5 D RBC 3.60 L 3.35 L Hgb 10.7 L 9.9 L Hct 35.1 L 31.5 L MCV 98 94 MCH 29.7 29.6 MCHC 30.5 L 31.4 RDW Std Deviation 63.8 H 60.8 H Plt Count 220 D 109 L D Neut % (Auto) 83 H 79 Lymph % (Auto) 7 L 13 [place] % (Auto) 10 7 Eos % (Auto) 0 0 Baso % (Auto) 0 0 Neut # (Auto) 11.4 H 4.4 Lymph # (Auto) 0.9 L 0.7 L [place] # (Auto) 1.4 H 0.4 Eos # (Auto) 0.0 0.0 Baso # (Auto) 0.0 0.0 Immature Gran # (Auto) 0.09 H 0.03 H Absolute Nucleated RBC 0.02 H 0.02 H Immature Gran % 1 H 1 H Nucleated RBC % 0 0 Sodium 148 H 147 H Potassium 5.0 D 4.0 D Chloride 108 H 105 Carbon Dioxide 35.5 H 35.4 H Anion Gap 5 L 7 BUN 25 H 20 Creatinine 0.5 L 0.5 L Estim Creat Clear Calc 106.4 106.4 eGFR > 60 > 60 BUN/Creatinine Ratio 50 H 40 H Glucose 161 H 129 H Calculated Osmolality 301 H 297 H Lactic Acid 1.2 Calcium 8.7 8.6 Corrected Calcium 9.0 9.2 Total Bilirubin 0.6 0.8 AST 125 H 52 H ALT 134 H 91 H Alkaline Phosphatase 122 H D 101 D Total Protein 6.8 6.1 Albumin 3.6 3.2 L Globulin 3.2 2.9 Albumin/Globulin Ratio 1.1 L 1.1 L Vancomycin Trough 22.1 H* ABG Interpretation ABG results: 12/08/24 12/08/24 12/09/24 11:55 21:28 01:30 ABG pH 7.35 7.32 L ABG pCO2 49 H 50 H ABG pO2 281 H 223 H D ABG HCO3 27 H 26 ABG O2 Saturation 101 H 101 H ABG Base Excess 1 -1 VBG pH 7.28 L VBG pCO2 58 H VBG pO2 75 H VBG Base Excess -1 12/09/24 12/09/24 12/09/24 04:15 09:38 11:03 ABG pH 7.39 7.04 L* D 7.21 L D ABG pCO2 48 120 H* D 76 H* D ABG pO2 154 H D 85 D 102 ABG HCO3 29 H 32 H 30 H ABG O2 Saturation 100 H 91 98 ABG Base Excess 3 -2 1 VBG pH VBG pCO2 VBG pO2 VBG Base Excess 12/10/24 12/10/24 12/11/24 04:53 09:34 04:40 ABG pH 7.40 D 7.28 L D 7.40 D ABG pCO2 51 H D 68 H D 55 H D ABG pO2 130 H D 94 D 130 H D ABG HCO3 31 H 31 H 34 H ABG O2 Saturation 100 H 76 L 100 H ABG Base Excess 6 H 3 8 H VBG pH VBG pCO2 VBG pO2 VBG Base Excess 12/12/24 04:35 ABG pH 7.47 H ABG pCO2 46 ABG pO2 145 H ABG HCO3 33 H ABG O2 Saturation 101 H ABG Base Excess 9 H VBG pH VBG pCO2 VBG pO2 VBG Base Excess Quality Measures Quality Measures VTE prophylaxis Advance care planning discussed with:: patient Assessment & Plan Assessment Current Active Medications: Generic Name Dose Route Start Last Admin Trade Name Freq PRN Reason Stop Dose Admin Acetaminophen 650 mg 12/08/24 14:16 Acetaminophen 325 Mg Tablet PO 01/07/25 14:15 Q6H PRN Fever >101.5 Acetylcysteine 3 ml 12/09/24 15:00 12/13/24 11:47 Acetylcysteine Rt Emma 10% 4 Ml Nebu INH 01/08/25 14:59 Not Given Q4HRRT KURT Albuterol/Ipratropium 3 ml 12/08/24 23:00 12/13/24 11:45 Albuterol/Ipratropium (Duoneb) Rt Emma 3 Ml Nebu INH 01/07/25 22:59 3 ml Q4HRRT KURT Administration Carvedilol 3.125 mg 12/12/24 13:10 12/13/24 09:52 Carvedilol 3.125 Mg Tablet PO 01/11/25 13:09 3.125 mg BIDWM KURT Administration Hydromorphone HCl 1 mg 12/11/24 15:30 12/12/24 14:26 Hydromorphone Inj 2 Mg/Ml Vial IVP 12/16/24 15:29 1 mg Q4HR PRN Administration SOB, anxiety Meropenem 1,000 mg/ Sodium 50 mls @ 100 mls/hr 12/09/24 10:00 12/13/24 13:27 Chloride IV 12/16/24 09:59 100 mls/hr Q8HR KURT Administration Protocol Vancomycin/Sodium Chloride 200 mls @ 120 mls/hr 12/13/24 22:00 Vancomycin/Ns 1 Gm Ivpb IV 12/20/24 21:59 BID@1000,2200 KURT Metoclopramide HCl 10 mg 12/08/24 14:16 Metoclopramide Inj 5 Mg/Ml Vial 2 Ml IVP 01/07/25 14:15 Q6H PRN NAUSEA OR VOMITING Protocol Metoprolol Succinate 50 mg 12/11/24 09:00 12/13/24 09:53 Metoprolol Succinate Xl 25 Mg Tabcr GT 01/10/25 08:59 50 mg QDAY KURT Administration Pharmacy Consult 1 each 12/09/24 09:00 Vancomycin Pharmacy To Dose 1 Each Each IV 01/08/25 08:59 QDAY PRN PROTOCOL Sodium Chloride 3 ml 12/08/24 19:30 12/08/24 20:13 Sodium Chloride Rt Emma 0.9% 3 Ml Nebu INH 01/07/25 19:29 3 ml PRN PRN Administration SOLN Plan Marek Roy is 84-year-old male with significant medical history for CVA, tracheostomy, PEG tube, hypertension, hyperlipidemia, A-fib and DM2 who was upgraded to the ICU due to septic shock requiring pressors. BP improved with levophed and weaned off. However, was desaturating. Bronchoscopy done on 12/10 showed tracheal mass causing hypoxia. Patient downgraded to floors on 12/11 for continued care. #Acute on chronic hypoxic respiratory failure #Community-acquired pneumonia #Respiratory acidosis #Tracheal mass #Chronic tracheostomy Chest x-ray shows vascular congestion and there can be some underlying consolidations on the left base Patient underwent bronchoscopy 12/10 and was noted to have a tracheal mass right underneath the tracheostomy. This is suspected to be a possible reason of patient's hypoxic episodes which rapidly resolves. Patient's chest CTA did not show any pulmonary embolism Azithromycin [12/08/2024-12/11/2024] ?Transfer to tertiary care center for tracheal mass removal or biopsy by thoracic surgeon or ad operations specialist.: accepted to [facility] but no beds available yet. ? Continue vancomycin [12/08/2024?] ?Continue meropenem 1000 mg every 8 hours [12/09/2024?] ? DuoNebs every 4 hours ? Blood cultures and sputum cultures negative -Dilaudid 1 mg q4hr PRN for hypoxia respiratory distress, breath, anxiety #Complicated UTI History of ESBL, resistance to cefepime in the past ? On meropenem ?Urine culture negative #History of A-fib, not rate controlled EKG showed A-fib [id number] Per chart review, he has history of hemorrhagic stroke, therefore not started on any anticoagulants. -continue metoprolol succinate 50 mg daily -resume Coreg 3.125mg BID -Echo pending #PEG tube feeding -feeds were resumed today ?Will monitor electrolytes for refeeding syndrome ? Referral to dietitian #DM2, controlled Last A1c 4.9 on February 2024 Plan: ? Q6h bedside glucose checks #Septic shock-resovled #NSTEMI type II likely supply demand ischemia-resolved #Nonverbal and bedbound #History of CVA # Lactic acidosis, resolved #Leukocytosis #Normocytic anemia ?Hemoglobin 9.4 today ?No active signs of bleeding ?Will continue to monitor with daily labs Health maintenance: Diet: PEG feeds DVT/PPx: Heparin GI ppx: not indicated Lines: PEG tube, Gibson Code Status: DNR Dispo: pending transfer The patient's management plan was discussed with my attending physician Dr. Mcadams. Anne Cano, PGY-1 LI discussed with and supervised the property management intern physician who took care of this patient. I personally saw and examined the patient and discussed the assessment and plan with the entire medicine team, including my attending Dr. Pema Salazar. I agree with the assessment and plan as documented above. Patient has been accepted at [facility] for management of tracheal mass. Transfer will happen when bed is available. Connor Arreola M.D. Internal Medicine PGY-3 Attending Provider Attestation/Addendum I have discussed and was present for the essential components of the history, physical examination, diagnosis, and treatment plan with the resident. I agree with the patient's care as documented by the resident and amended herein by me. Rob Mcadams, DO. Pending transfer to tertiary center for higher level of care Although this document has been carefully reviewed, there may still be some phonetic and other typographical errors. These errors are purely grammatical due to imperfections in the software program and should not be construed in any way to compromise the substance of the patient's medical care during this visit.
--- NOTE | 2024-12-13 15:17 | ESPR_ITS ---
Subjective Subjective Interval history: trach noted. on 80% O2 now. up from before. Exam Vital Signs Temp Pulse Resp BP Pulse Ox O2 Del Method O2 Flow Rate 96.9 F 75 22 H 141/77 H 100 Mechanical Ventilation 40 12/13/24 12:00 12/13/24 12:00 12/13/24 12:00 12/13/24 12:00 12/13/24 12:00 12/13/24 12:00 12/13/24 12:00 FiO2 80 12/13/24 12:00 Narrative Exam non communicative. trach and peg noted. fiO2 on vent 80% despite ultrabroad abx Objective - Internal Medicine Labs 12/13/24 04:36 12/13/24 04:36 Labs: Laboratory Results - last 24 hr 12/12/24 12/13/24 12/13/24 15:06 04:36 09:49 WBC 13.7 H D 5.5 D RBC 3.60 L 3.35 L Hgb 10.7 L 9.9 L Hct 35.1 L 31.5 L MCV 98 94 MCH 29.7 29.6 MCHC 30.5 L 31.4 RDW Std Deviation 63.8 H 60.8 H Plt Count 220 D 109 L D Neut % (Auto) 83 H 79 Lymph % (Auto) 7 L 13 [place] % (Auto) 10 7 Eos % (Auto) 0 0 Baso % (Auto) 0 0 Neut # (Auto) 11.4 H 4.4 Lymph # (Auto) 0.9 L 0.7 L [place] # (Auto) 1.4 H 0.4 Eos # (Auto) 0.0 0.0 Baso # (Auto) 0.0 0.0 Immature Gran # (Auto) 0.09 H 0.03 H Absolute Nucleated RBC 0.02 H 0.02 H Immature Gran % 1 H 1 H Nucleated RBC % 0 0 Sodium 148 H 147 H Potassium 5.0 D 4.0 D Chloride 108 H 105 Carbon Dioxide 35.5 H 35.4 H Anion Gap 5 L 7 BUN 25 H 20 Creatinine 0.5 L 0.5 L Estim Creat Clear Calc 106.4 106.4 eGFR > 60 > 60 BUN/Creatinine Ratio 50 H 40 H Glucose 161 H 129 H Calculated Osmolality 301 H 297 H Lactic Acid 1.2 Calcium 8.7 8.6 Corrected Calcium 9.0 9.2 Total Bilirubin 0.6 0.8 AST 125 H 52 H ALT 134 H 91 H Alkaline Phosphatase 122 H D 101 D Total Protein 6.8 6.1 Albumin 3.6 3.2 L Globulin 3.2 2.9 Albumin/Globulin Ratio 1.1 L 1.1 L Vancomycin Trough 22.1 H* ABG Interpretation ABG results: 12/08/24 12/08/24 12/09/24 11:55 21:28 01:30 ABG pH 7.35 7.32 L ABG pCO2 49 H 50 H ABG pO2 281 H 223 H D ABG HCO3 27 H 26 ABG O2 Saturation 101 H 101 H ABG Base Excess 1 -1 VBG pH 7.28 L VBG pCO2 58 H VBG pO2 75 H VBG Base Excess -1 12/09/24 12/09/24 12/09/24 04:15 09:38 11:03 ABG pH 7.39 7.04 L* D 7.21 L D ABG pCO2 48 120 H* D 76 H* D ABG pO2 154 H D 85 D 102 ABG HCO3 29 H 32 H 30 H ABG O2 Saturation 100 H 91 98 ABG Base Excess 3 -2 1 VBG pH VBG pCO2 VBG pO2 VBG Base Excess 12/10/24 12/10/24 12/11/24 04:53 09:34 04:40 ABG pH 7.40 D 7.28 L D 7.40 D ABG pCO2 51 H D 68 H D 55 H D ABG pO2 130 H D 94 D 130 H D ABG HCO3 31 H 31 H 34 H ABG O2 Saturation 100 H 76 L 100 H ABG Base Excess 6 H 3 8 H VBG pH VBG pCO2 VBG pO2 VBG Base Excess 12/12/24 04:35 ABG pH 7.47 H ABG pCO2 46 ABG pO2 145 H ABG HCO3 33 H ABG O2 Saturation 101 H ABG Base Excess 9 H VBG pH VBG pCO2 VBG pO2 VBG Base Excess Assessment & Plan A&P Narrative LLL PNa dnr status. but family wants full rx per staff. chronic resp failure with acute component hx of cva and persistent vegetative state hld afib role of abx depends on family decision for rx. merrem likely to be overkill, but it is the icu tradition and pt is dnr, 84 yoa and had a cva with a trach. based on prior cx. a quinolone would be ok but I am not seeing him formally, only due to the merrem use. if cx with a s germ to quinolones ok to use them with or without enteral flagyl, note that quinlones are the same iv and po so if germs are s a quinolone ok Time Spent With Patient Time: Total time spent is greater than 50% in coordination of care (as documented) at patient's floor/unit and/or counseling patient:
--- NOTE | 2024-12-13 15:45 | PC.SS ---
Rounding note: pending [facility] transfer to [facility]. Pending open bed.
--- NOTE | 2024-12-13 19:29 | PC.NURSE ---
SPOKE WITH BRIAN AND LANCE, CHILDREN OF PATIENT, BOTH AGREED TO TRANSFER TO [facility]. [facility]. ARRANGING TRANSPORTATION
[2024-12-13] MEDS: VANCOMYCIN/NS 1 GM IVPB 200 ML IV (21:52)
[2024-12-14] VITALS: BP 148/101; PULSE 81; PULSE 85; RESP 24; TEMP 35.9; O2SAT 100
--- NOTE | 2024-12-14 00:37 | PC.NURSE ---
REPORT GIVEN TO GENA TONEY AT [facility]. [employer] TIME AT 0130.
[2024-12-14 00:50] VITALS: BP 147/92; PULSE 78; RESP 33; TEMP 36.6; O2SAT 100
[2024-12-14 00:51] VITALS: RESP 27
== END 2024-12-14 02:22 | disposition admitted as inpatient to this hospital (09) | DRG 720 ==
LOC: SERX 16:51 → SERHOLD 22:47 → S2SX 22:50 → S2NX 12-13 03:47
PROVIDERS: Internal Medicine; Student in an Organized Health Care Education/Training Program; Admitting Provider Student in an Organized Health Care Education/Training Program; Emergency Provider Emergency Medicine; Visit Provider Student in an Organized Health Care Education/Training Program
DX: A41.02 Sepsis due to Methicillin resistant Staphylococcus aureus (principal); I48.91 Unspecified atrial fibrillation; Z86.73 Personal history of transient ischemic attack (TIA), and cerebral infarction without residual deficits; E11.9 Type 2 diabetes mellitus without complications; Z66 Do not resuscitate; J96.21 Acute and chronic respiratory failure with hypoxia; J96.22 Acute and chronic respiratory failure with hypercapnia; J69.0 Pneumonitis due to inhalation of food and vomit; J18.9 Pneumonia, unspecified organism; D69.6 Thrombocytopenia, unspecified; E78.00 Pure hypercholesterolemia, unspecified; E83.39 Other disorders of phosphorus metabolism; E87.0 Hyperosmolality and hypernatremia; E87.4 Mixed disorder of acid-base balance; J95.09 Other tracheostomy complication; D64.9 Anemia, unspecified; R65.21 Severe sepsis with septic shock; N39.0 Urinary tract infection, site not specified; I11.0 Hypertensive heart disease with heart failure; I50.9 Heart failure, unspecified; G93.41 Metabolic encephalopathy; I21.A1 Myocardial infarction type 2; Z74.01 Bed confinement status; Z79.4 Long term (current) use of insulin; J39.8 Other specified diseases of upper respiratory tract
CPT/HCPCS: 36415; 36600; 70450; 71045; 71275; 74018; 74176; 80053; 80202; 80307; 80320; 81001; 82140; 82550; 82803; 83605; 83735; 83880; 84100; 84132; 84145; 84484; 85014; 85018; 85025; 85610; 86331; 86635; 86850; 86900; 86901; 87040; 87070; 87077; 87081; 87086; 87186; 87205; 87400; 87811; 93005; 94003; 94640; 94644; 94664; 96361; 96365; 96366; 96367; 99291; A4649; A9270; J0456; J0613; J0692; J0696; J1171; J1644; J1938; J2060; J2185; J2250; J2270; J2543; J2598; J2919; J3010; J3370; J3372; J3475; J3490; J7030; J7040; J7050; J7612; J7999; Q9967; G0480

== ENCOUNTER → 2024-12-15 00:01 | Inpatient (IN) | payer MEDICAID, OTHER, SELFPAY ==
[2023-04-30] VITALS (10 sets, daily range): BP systolic 98–145; BP diastolic 63–75; PULSE 49–83; RESP 16–20; TEMP 36.2–36.7; O2SAT 95–99
[2023-04-30] MEDS: ALBUTEROL INHALER 200 PUFF/INH INHALER INH ×4 (01:48→18:31)
[2023-04-30] MEDS: IPRATROPIUM BROMIDE 200 PUFF/INH INHALER IH ×4 (01:48→18:31)
[2023-04-30 07:03] LABS: Glucose,Fasting 102 mg/dL (74-106)
[2023-04-30] MEDS: DEXLANSOPRAZOLE 30 MG GT (09:00)
[2023-04-30] MEDS: CYANOCOBALAMIN (VITAMIN B-12) 500 MCG TABLET 1000 MCG GT (09:01)
--- NOTE | 2023-04-30 14:29 | PC.SS ---
Room visit: Resident is laying in bed with TV on with head of the bed elevated with call light properly placed. Resident is well groomed not showing any signs of distress. Resident has no changes in mood or behavior, resident to remain in current care as there is no changes in care or condition. Resident will continue to receive daily room visits from [facility] and will be offered any support needed.
[2023-04-30] MEDS: MAGNESIUM HYDROXIDE 400 MG/5 ML ORAL.SUSP 400 ML PO (21:22)
[2023-05-01] VITALS (9 sets, daily range): BP systolic 91–131; BP diastolic 63–83; PULSE 54–97; RESP 16–20; TEMP 36.1–36.6; O2SAT 95–100
[2023-05-01] MEDS: ALBUTEROL INHALER 200 PUFF/INH INHALER INH ×4 (01:20→20:30)
[2023-05-01] MEDS: IPRATROPIUM BROMIDE 200 PUFF/INH INHALER IH ×4 (01:20→20:30)
[2023-05-01] MEDS: CARVEDILOL 3.125 MG TABLET GT (09:18)
[2023-05-01] MEDS: DEXLANSOPRAZOLE 30 MG GT (09:19)
[2023-05-01] MEDS: MULTIVIT-MIN/IRON FUM/FOLIC AC 1 EACH TABLET GT (09:19)
[2023-05-01] MEDS: CYANOCOBALAMIN (VITAMIN B-12) 500 MCG TABLET 1000 MCG GT (09:19)
[2023-05-01] MEDS: ATORVASTATIN 40 MG TABLET GT (20:30)
[2023-05-01] MEDS: INSULIN GLARGINE 100 UNIT/ML INSULN.PEN 30 UNIT SC (20:31)
[2023-05-02] VITALS (9 sets, daily range): BP systolic 91–141; BP diastolic 47–72; PULSE 50–71; RESP 18–22; TEMP 35.6–36.8; O2SAT 96–100
[2023-05-02] MEDS: ALBUTEROL INHALER 200 PUFF/INH INHALER INH ×3 (07:34→19:46)
[2023-05-02] MEDS: IPRATROPIUM BROMIDE 200 PUFF/INH INHALER IH ×3 (07:34→19:47)
[2023-05-02] MEDS: CARVEDILOL 3.125 MG TABLET GT (08:42)
[2023-05-02] MEDS: DEXLANSOPRAZOLE 30 MG GT (08:42)
[2023-05-02] MEDS: CYANOCOBALAMIN (VITAMIN B-12) 500 MCG TABLET 1000 MCG GT (08:42)
[2023-05-02] MEDS: MULTIVIT-MIN/IRON FUM/FOLIC AC 1 EACH TABLET GT (08:43)
[2023-05-02] MEDS: ATORVASTATIN 40 MG TABLET GT (20:17)
[2023-05-02] MEDS: INSULIN GLARGINE 100 UNIT/ML INSULN.PEN 30 UNIT SC (20:50)
[2023-05-03] VITALS (8 sets, daily range): BP systolic 102–128; BP diastolic 59–79; PULSE 53–80; RESP 18–20; TEMP 36.1–36.2; O2SAT 96–98
[2023-05-03] MEDS: IPRATROPIUM BROMIDE 200 PUFF/INH INHALER IH ×3 (01:14→21:04)
[2023-05-03] MEDS: ALBUTEROL INHALER 200 PUFF/INH INHALER INH ×3 (01:14→21:04)
[2023-05-03] MEDS: CYANOCOBALAMIN (VITAMIN B-12) 500 MCG TABLET 1000 MCG GT (09:23)
[2023-05-03] MEDS: CARVEDILOL 3.125 MG TABLET GT (09:23)
[2023-05-03] MEDS: DEXLANSOPRAZOLE 30 MG GT (09:24)
[2023-05-03] MEDS: MULTIVIT-MIN/IRON FUM/FOLIC AC 1 EACH TABLET GT (09:24)
--- NOTE | 2023-05-03 15:23 | PD.SAPROG ---
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 No pain issues. Diagnosis and treatment reviewed. Plan: Treatment continued as ongoing. Gnosis poor
[2023-05-03] MEDS: ATORVASTATIN 40 MG TABLET GT (21:02)
[2023-05-03] MEDS: INSULIN GLARGINE 100 UNIT/ML INSULN.PEN 30 UNIT SC (22:03)
[2023-05-04] VITALS (10 sets, daily range): BP systolic 98–166; BP diastolic 57–89; PULSE 51–66; RESP 18; TEMP 36–36.3; O2SAT 96–98
[2023-05-04] MEDS: IPRATROPIUM BROMIDE 200 PUFF/INH INHALER IH ×3 (02:17→11:25)
[2023-05-04] MEDS: ALBUTEROL INHALER 200 PUFF/INH INHALER INH ×4 (02:17→22:10)
[2023-05-04] MEDS: CARVEDILOL 3.125 MG TABLET GT (08:57)
[2023-05-04] MEDS: MULTIVIT-MIN/IRON FUM/FOLIC AC 1 EACH TABLET GT (08:57)
[2023-05-04] MEDS: DEXLANSOPRAZOLE 30 MG GT (08:57)
[2023-05-04] MEDS: CYANOCOBALAMIN (VITAMIN B-12) 500 MCG TABLET 1000 MCG GT (08:57)
[2023-05-04] MEDS: ATORVASTATIN 40 MG TABLET GT (21:23)
[2023-05-04] MEDS: INSULIN GLARGINE 100 UNIT/ML INSULN.PEN 30 UNIT SC (21:24)
[2023-05-05] VITALS (9 sets, daily range): BP systolic 109–119; BP diastolic 65–78; PULSE 54–76; RESP 18–20; TEMP 36.2–36.3; O2SAT 90–99
[2023-05-05] MEDS: IPRATROPIUM BROMIDE 200 PUFF/INH INHALER IH ×4 (01:53→18:42)
[2023-05-05] MEDS: ALBUTEROL INHALER 200 PUFF/INH INHALER INH ×4 (01:53→18:42)
[2023-05-05] MEDS: CARVEDILOL 3.125 MG TABLET GT (09:31)
[2023-05-05] MEDS: DEXLANSOPRAZOLE 30 MG GT (09:32)
[2023-05-05] MEDS: CYANOCOBALAMIN (VITAMIN B-12) 500 MCG TABLET 1000 MCG GT (09:32)
[2023-05-05] MEDS: MULTIVIT-MIN/IRON FUM/FOLIC AC 1 EACH TABLET GT (09:32)
[2023-05-05] MEDS: ATORVASTATIN 40 MG TABLET GT (21:04)
[2023-05-05] MEDS: INSULIN GLARGINE 100 UNIT/ML INSULN.PEN 30 UNIT SC (21:12)
[2023-05-06] VITALS (9 sets, daily range): BP systolic 111–142; BP diastolic 62–77; PULSE 52–74; RESP 18–22; TEMP 36.1–36.5; O2SAT 96–99
[2023-05-06] MEDS: IPRATROPIUM BROMIDE 200 PUFF/INH INHALER IH ×2 (01:50→13:11)
[2023-05-06] MEDS: ALBUTEROL INHALER 200 PUFF/INH INHALER INH ×4 (01:50→19:27)
[2023-05-06] MEDS: CYANOCOBALAMIN (VITAMIN B-12) 500 MCG TABLET 1000 MCG GT (09:00)
[2023-05-06] MEDS: MULTIVIT-MIN/IRON FUM/FOLIC AC 1 EACH TABLET GT (09:01)
[2023-05-06] MEDS: DEXLANSOPRAZOLE 30 MG GT (09:01)
[2023-05-06] MEDS: ATORVASTATIN 40 MG TABLET GT (20:28)
[2023-05-06] MEDS: INSULIN GLARGINE 100 UNIT/ML INSULN.PEN 30 UNIT SC (22:03)
[2023-05-07] VITALS (8 sets, daily range): BP systolic 91–116; BP diastolic 50–71; PULSE 53–83; RESP 17–20; TEMP 36.1–36.5; O2SAT 96–98
[2023-05-07] MEDS: ALBUTEROL INHALER 200 PUFF/INH INHALER INH ×3 (07:23→19:47)
[2023-05-07] MEDS: IPRATROPIUM BROMIDE 200 PUFF/INH INHALER IH ×3 (07:23→19:47)
[2023-05-07] MEDS: CYANOCOBALAMIN (VITAMIN B-12) 500 MCG TABLET 1000 MCG GT (08:48)
[2023-05-07] MEDS: DEXLANSOPRAZOLE 30 MG GT (08:48)
[2023-05-07] MEDS: MULTIVIT-MIN/IRON FUM/FOLIC AC 1 EACH TABLET GT (08:48)
--- NOTE | 2023-05-07 15:57 | PC.SS ---
Room visit: Resident is laying in bed with TV on with head of the bed elevated with call light properly placed. Resident is well groomed not showing any signs of distress. Resident continues to receive daily room visit from this SSD. Resident has no changes in mood or behavior, resident to remain in current care as there is no changes in care or condition.
[2023-05-07] MEDS: ATORVASTATIN 40 MG TABLET GT (20:37)
[2023-05-07] MEDS: INSULIN GLARGINE 100 UNIT/ML INSULN.PEN 30 UNIT SC (21:54)
[2023-05-08] VITALS (9 sets, daily range): BP systolic 99–141; BP diastolic 60–85; PULSE 57–86; RESP 17–20; TEMP 36.1–36.6; O2SAT 93–98
[2023-05-08] MEDS: IPRATROPIUM BROMIDE 200 PUFF/INH INHALER IH ×4 (01:22→19:10)
[2023-05-08] MEDS: ALBUTEROL INHALER 200 PUFF/INH INHALER INH ×2 (07:20→11:34)
[2023-05-08] MEDS: DEXLANSOPRAZOLE 30 MG GT (08:16)
[2023-05-08] MEDS: MULTIVIT-MIN/IRON FUM/FOLIC AC 1 EACH TABLET GT (08:16)
[2023-05-08] MEDS: CYANOCOBALAMIN (VITAMIN B-12) 500 MCG TABLET 1000 MCG GT (08:16)
[2023-05-08] MEDS: ATORVASTATIN 40 MG TABLET GT (20:44)
[2023-05-08] MEDS: INSULIN GLARGINE 100 UNIT/ML INSULN.PEN 30 UNIT SC (21:28)
[2023-05-09] VITALS (9 sets, daily range): BP systolic 107–146; BP diastolic 58–81; PULSE 48–73; RESP 18–20; TEMP 36.1–36.3; O2SAT 96–100
[2023-05-09] MEDS: IPRATROPIUM BROMIDE 200 PUFF/INH INHALER IH ×3 (06:55→18:45)
[2023-05-09] MEDS: ALBUTEROL INHALER 200 PUFF/INH INHALER INH ×3 (06:55→18:45)
[2023-05-09] MEDS: CYANOCOBALAMIN (VITAMIN B-12) 500 MCG TABLET 1000 MCG GT (08:32)
[2023-05-09] MEDS: MULTIVIT-MIN/IRON FUM/FOLIC AC 1 EACH TABLET GT (08:33)
[2023-05-09] MEDS: DEXLANSOPRAZOLE 30 MG GT (08:33)
[2023-05-09] MEDS: ATORVASTATIN 40 MG TABLET GT (20:41)
[2023-05-09] MEDS: INSULIN GLARGINE 100 UNIT/ML INSULN.PEN 30 UNIT SC (21:10)
[2023-05-10] VITALS (9 sets, daily range): BP systolic 117–144; BP diastolic 64–86; PULSE 49–78; RESP 16–20; TEMP 36.1–36.6; O2SAT 95–99
[2023-05-10] MEDS: ALBUTEROL INHALER 200 PUFF/INH INHALER INH ×4 (00:37→19:40)
[2023-05-10] MEDS: IPRATROPIUM BROMIDE 200 PUFF/INH INHALER IH ×3 (06:20→19:40)
[2023-05-10] MEDS: CARVEDILOL 3.125 MG TABLET GT (09:33)
[2023-05-10] MEDS: CYANOCOBALAMIN (VITAMIN B-12) 500 MCG TABLET 1000 MCG GT (09:33)
[2023-05-10] MEDS: DEXLANSOPRAZOLE 30 MG GT (09:34)
[2023-05-10] MEDS: MULTIVIT-MIN/IRON FUM/FOLIC AC 1 EACH TABLET GT (09:34)
[2023-05-10] MEDS: ATORVASTATIN 40 MG TABLET GT (20:25)
[2023-05-10] MEDS: INSULIN GLARGINE 100 UNIT/ML INSULN.PEN 30 UNIT SC (21:25)
[2023-05-11] VITALS (9 sets, daily range): BP systolic 120–148; BP diastolic 66–81; PULSE 55–75; RESP 16–18; TEMP 36.1–36.4; O2SAT 97–99
[2023-05-11] MEDS: ALBUTEROL INHALER 200 PUFF/INH INHALER INH ×4 (00:25→19:26)
[2023-05-11] MEDS: IPRATROPIUM BROMIDE 200 PUFF/INH INHALER IH ×3 (00:25→19:26)
[2023-05-11] MEDS: CARVEDILOL 3.125 MG TABLET GT (09:38)
[2023-05-11] MEDS: CYANOCOBALAMIN (VITAMIN B-12) 500 MCG TABLET 1000 MCG GT (09:39)
[2023-05-11] MEDS: DEXLANSOPRAZOLE 30 MG GT (09:39)
[2023-05-11] MEDS: MULTIVIT-MIN/IRON FUM/FOLIC AC 1 EACH TABLET GT (09:39)
[2023-05-11] MEDS: ATORVASTATIN 40 MG TABLET GT (20:20)
[2023-05-11] MEDS: INSULIN GLARGINE 100 UNIT/ML INSULN.PEN 30 UNIT SC (21:25)
--- NOTE | 2023-05-11 22:22 | PD.SAPROG ---
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 No pain issues. Diagnosis and treatment reviewed. Plan: Treatment continued as ongoing. Gnosis poor
[2023-05-12] VITALS (8 sets, daily range): BP systolic 94–130; BP diastolic 61–80; PULSE 51–77; RESP 16–18; TEMP 36.1–36.2; O2SAT 95–100
[2023-05-12] MEDS: ALBUTEROL INHALER 200 PUFF/INH INHALER INH ×4 (00:21→19:55)
[2023-05-12] MEDS: IPRATROPIUM BROMIDE 200 PUFF/INH INHALER IH ×4 (00:21→19:56)
[2023-05-12] MEDS: MULTIVIT-MIN/IRON FUM/FOLIC AC 1 EACH TABLET GT (09:27)
[2023-05-12] MEDS: CYANOCOBALAMIN (VITAMIN B-12) 500 MCG TABLET 1000 MCG GT (09:27)
[2023-05-12] MEDS: DEXLANSOPRAZOLE 30 MG GT (09:27)
[2023-05-12] MEDS: ATORVASTATIN 40 MG TABLET GT (20:33)
[2023-05-12] MEDS: INSULIN GLARGINE 100 UNIT/ML INSULN.PEN 30 UNIT SC (21:32)
[2023-05-13] VITALS (9 sets, daily range): BP systolic 99–133; BP diastolic 61–70; PULSE 59–72; RESP 16–18; TEMP 36–36.1; O2SAT 96–99
[2023-05-13] MEDS: ALBUTEROL INHALER 200 PUFF/INH INHALER INH ×3 (06:55→21:40)
[2023-05-13] MEDS: IPRATROPIUM BROMIDE 200 PUFF/INH INHALER IH ×3 (06:55→21:40)
[2023-05-13] MEDS: CARVEDILOL 3.125 MG TABLET GT (09:14)
[2023-05-13] MEDS: MAGNESIUM HYDROXIDE 30 ML ORAL SUSP ML GT (09:15)
[2023-05-13] MEDS: DEXLANSOPRAZOLE 30 MG GT (09:15)
[2023-05-13] MEDS: MULTIVIT-MIN/IRON FUM/FOLIC AC 1 EACH TABLET GT (09:15)
[2023-05-13] MEDS: CYANOCOBALAMIN (VITAMIN B-12) 500 MCG TABLET 1000 MCG GT (09:15)
--- NOTE | 2023-05-13 12:36 | PC.SS ---
Room visit: Resident is laying in bed with head of the bed elevated. Resident has TV on with call light properly placed, showing no signs of distress or changes in mood or behavior. Resident has no changes in care or condition, resident will remain in current care and will continue to be evaluated as appropriate fro DC to lower level of care. Resident will continue to receive daily room visits from staff.
[2023-05-13] MEDS: ATORVASTATIN 40 MG TABLET GT (20:16)
[2023-05-13] MEDS: INSULIN GLARGINE 100 UNIT/ML INSULN.PEN 30 UNIT SC (21:11)
[2023-05-14] VITALS (9 sets, daily range): BP systolic 99–131; BP diastolic 41–74; PULSE 41–65; RESP 16–23; TEMP 36–36.2; O2SAT 95–100
[2023-05-14] MEDS: IPRATROPIUM BROMIDE 200 PUFF/INH INHALER IH ×4 (01:42→20:40)
[2023-05-14] MEDS: ALBUTEROL INHALER 200 PUFF/INH INHALER INH ×4 (01:42→20:40)
[2023-05-14] MEDS: CYANOCOBALAMIN (VITAMIN B-12) 500 MCG TABLET 1000 MCG GT (09:22)
[2023-05-14] MEDS: MULTIVIT-MIN/IRON FUM/FOLIC AC 1 EACH TABLET GT (09:23)
[2023-05-14] MEDS: DEXLANSOPRAZOLE 30 MG GT (09:23)
[2023-05-14] MEDS: INSULIN GLARGINE 100 UNIT/ML INSULN.PEN 30 UNIT SC (21:35)
[2023-05-14] MEDS: ATORVASTATIN 40 MG TABLET GT (21:39)
[2023-05-15] VITALS (9 sets, daily range): BP systolic 100–120; BP diastolic 55–70; PULSE 58–90; RESP 16–18; TEMP 36–36.2; O2SAT 94–97
[2023-05-15] MEDS: IPRATROPIUM BROMIDE 200 PUFF/INH INHALER IH ×3 (02:34→18:51)
[2023-05-15] MEDS: ALBUTEROL INHALER 200 PUFF/INH INHALER INH ×4 (02:34→18:51)
[2023-05-15] MEDS: CARVEDILOL 3.125 MG TABLET GT (09:09)
[2023-05-15] MEDS: MULTIVIT-MIN/IRON FUM/FOLIC AC 1 EACH TABLET GT (09:10)
[2023-05-15] MEDS: DEXLANSOPRAZOLE 30 MG GT (09:10)
[2023-05-15] MEDS: CYANOCOBALAMIN (VITAMIN B-12) 500 MCG TABLET 1000 MCG GT (09:10)
[2023-05-15] MEDS: ATORVASTATIN 40 MG TABLET GT (20:48)
[2023-05-15] MEDS: INSULIN GLARGINE 100 UNIT/ML INSULN.PEN 30 UNIT SC (21:51)
--- NOTE | 2023-05-15 22:30 | PD.SAPROG ---
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 No pain issues. Diagnosis and treatment reviewed. Plan: Treatment continued as ongoing. Gnosis poor
[2023-05-16] VITALS (9 sets, daily range): BP systolic 101–111; BP diastolic 55–71; PULSE 50–79; RESP 16–18; TEMP 36.1–36.6; O2SAT 95–99
[2023-05-16] MEDS: IPRATROPIUM BROMIDE 200 PUFF/INH INHALER IH ×3 (07:10→19:40)
[2023-05-16] MEDS: ALBUTEROL INHALER 200 PUFF/INH INHALER INH ×3 (07:10→19:40)
[2023-05-16] MEDS: CARVEDILOL 3.125 MG TABLET GT (09:10)
[2023-05-16] MEDS: CYANOCOBALAMIN (VITAMIN B-12) 500 MCG TABLET 1000 MCG GT (09:10)
[2023-05-16] MEDS: MULTIVIT-MIN/IRON FUM/FOLIC AC 1 EACH TABLET GT (09:10)
[2023-05-16] MEDS: DEXLANSOPRAZOLE 30 MG GT (09:10)
--- NOTE | 2023-05-16 10:23 | CHAP ---
Patient was visited by the Spiritual Care Volunteer who also prayed with them. (Volunteer was in the hospital from 09:12-10:30).
[2023-05-16] MEDS: ATORVASTATIN 40 MG TABLET GT (20:45)
[2023-05-16] MEDS: INSULIN GLARGINE 100 UNIT/ML INSULN.PEN 30 UNIT SC (21:05)
[2023-05-17] VITALS (11 sets, daily range): BP systolic 95–128; BP diastolic 44–82; PULSE 51–75; RESP 15–18; TEMP 36.1–36.3; O2SAT 95–98
[2023-05-17] MEDS: IPRATROPIUM BROMIDE 200 PUFF/INH INHALER IH ×4 (00:52→20:15)
[2023-05-17] MEDS: ALBUTEROL INHALER 200 PUFF/INH INHALER INH ×4 (00:52→20:15)
[2023-05-17] MEDS: CARVEDILOL 3.125 MG TABLET GT (08:40)
[2023-05-17] MEDS: MULTIVIT-MIN/IRON FUM/FOLIC AC 1 EACH TABLET GT (08:42)
[2023-05-17] MEDS: CYANOCOBALAMIN (VITAMIN B-12) 500 MCG TABLET 1000 MCG GT (08:42)
[2023-05-17] MEDS: DEXLANSOPRAZOLE 30 MG GT (08:42)
[2023-05-17] MEDS: ATORVASTATIN 40 MG TABLET GT (20:31)
[2023-05-17] MEDS: INSULIN GLARGINE 100 UNIT/ML INSULN.PEN 30 UNIT SC (21:45)
[2023-05-18] VITALS (9 sets, daily range): BP systolic 95–144; BP diastolic 59–88; PULSE 51–81; RESP 16–18; TEMP 36.1–36.4; O2SAT 97–99
[2023-05-18] MEDS: IPRATROPIUM BROMIDE 200 PUFF/INH INHALER IH ×4 (01:50→19:35)
[2023-05-18] MEDS: ALBUTEROL INHALER 200 PUFF/INH INHALER INH ×3 (01:50→22:30)
[2023-05-18] MEDS: MULTIVIT-MIN/IRON FUM/FOLIC AC 1 EACH TABLET GT (09:40)
[2023-05-18] MEDS: DEXLANSOPRAZOLE 30 MG GT (09:40)
[2023-05-18] MEDS: CYANOCOBALAMIN (VITAMIN B-12) 500 MCG TABLET 1000 MCG GT (09:40)
[2023-05-18] MEDS: ATORVASTATIN 40 MG TABLET GT (20:43)
[2023-05-18] MEDS: INSULIN GLARGINE 100 UNIT/ML INSULN.PEN 30 UNIT SC (21:28)
[2023-05-19] VITALS (9 sets, daily range): BP systolic 96–116; BP diastolic 60–70; PULSE 54–78; RESP 16–18; TEMP 36.1–36.7; O2SAT 94–100
[2023-05-19] MEDS: ALBUTEROL INHALER 200 PUFF/INH INHALER INH ×4 (00:20→19:59)
[2023-05-19] MEDS: IPRATROPIUM BROMIDE 200 PUFF/INH INHALER IH ×4 (00:20→19:59)
[2023-05-19] MEDS: CYANOCOBALAMIN (VITAMIN B-12) 500 MCG TABLET 1000 MCG GT (09:11)
[2023-05-19] MEDS: MULTIVIT-MIN/IRON FUM/FOLIC AC 1 EACH TABLET GT (09:11)
[2023-05-19] MEDS: DEXLANSOPRAZOLE 30 MG GT (09:11)
[2023-05-19] MEDS: MAGNESIUM HYDROXIDE 30 ML ORAL SUSP ML GT (09:12)
--- NOTE | 2023-05-19 11:45 | PD.SAPROG ---
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 No pain issues. Diagnosis and treatment reviewed. Plan: Treatment continued as ongoing. Gnosis poor
[2023-05-19] MEDS: ATORVASTATIN 40 MG TABLET GT (20:26)
[2023-05-19] MEDS: INSULIN GLARGINE 100 UNIT/ML INSULN.PEN 30 UNIT SC (21:01)
[2023-05-19] MEDS: bisacodyL 10 MG SUPP.RECT PR (23:24)
[2023-05-20] VITALS (9 sets, daily range): BP systolic 122–152; BP diastolic 64–87; PULSE 57–73; RESP 16–18; TEMP 36.3–36.6; O2SAT 92–99
[2023-05-20] MEDS: ALBUTEROL INHALER 200 PUFF/INH INHALER INH ×4 (01:39→18:55)
[2023-05-20] MEDS: IPRATROPIUM BROMIDE 200 PUFF/INH INHALER IH ×3 (01:39→18:55)
[2023-05-20] MEDS: CARVEDILOL 3.125 MG TABLET GT (08:58)
[2023-05-20] MEDS: DEXLANSOPRAZOLE 30 MG GT (08:59)
[2023-05-20] MEDS: MULTIVIT-MIN/IRON FUM/FOLIC AC 1 EACH TABLET GT (08:59)
[2023-05-20] MEDS: CYANOCOBALAMIN (VITAMIN B-12) 500 MCG TABLET 1000 MCG GT (08:59)
--- NOTE | 2023-05-20 17:52 | CHAP ---
11:00 AM visited by spiritual care volunteer. Patient sleeping peacefully. She provided a silent prayer by patient bed
[2023-05-20] MEDS: INSULIN GLARGINE 100 UNIT/ML INSULN.PEN 30 UNIT SC (20:27)
[2023-05-20] MEDS: ATORVASTATIN 40 MG TABLET GT (20:27)
[2023-05-21] VITALS (8 sets, daily range): BP systolic 107–125; BP diastolic 61–73; PULSE 55–68; RESP 16–18; TEMP 36.1–36.3; O2SAT 92–100
[2023-05-21] MEDS: ALBUTEROL INHALER 200 PUFF/INH INHALER INH ×4 (00:30→18:05)
[2023-05-21] MEDS: IPRATROPIUM BROMIDE 200 PUFF/INH INHALER IH ×3 (00:30→18:05)
[2023-05-21] MEDS: CARVEDILOL 3.125 MG TABLET GT (08:50)
[2023-05-21] MEDS: MULTIVIT-MIN/IRON FUM/FOLIC AC 1 EACH TABLET GT (08:51)
[2023-05-21] MEDS: DEXLANSOPRAZOLE 30 MG GT (08:51)
[2023-05-21] MEDS: CYANOCOBALAMIN (VITAMIN B-12) 500 MCG TABLET 1000 MCG GT (08:51)
--- NOTE | 2023-05-21 14:42 | PC.SS ---
Room visit: Resident is seen laying in bed with head of the bed elevated, resident has call light properly placed with no signs of distress. Resident is well groomed and appears comfortable. Resident continues to receive daily room visits, he is not showing any changes in mood or behavior. Resident will continue to receive room visits from staff and be offered support as he will accept.
[2023-05-21] MEDS: ATORVASTATIN 40 MG TABLET GT (20:58)
[2023-05-21] MEDS: INSULIN GLARGINE 100 UNIT/ML INSULN.PEN 30 UNIT SC (21:08)
[2023-05-22] VITALS (9 sets, daily range): BP systolic 111–133; BP diastolic 60–82; PULSE 55–80; RESP 16–18; TEMP 36.1–36.6; O2SAT 94–99
[2023-05-22] MEDS: IPRATROPIUM BROMIDE 200 PUFF/INH INHALER IH ×2 (00:19→19:11)
[2023-05-22] MEDS: ALBUTEROL INHALER 200 PUFF/INH INHALER INH ×2 (00:19→19:11)
[2023-05-22] MEDS: CARVEDILOL 3.125 MG TABLET GT (08:37)
[2023-05-22] MEDS: CYANOCOBALAMIN (VITAMIN B-12) 500 MCG TABLET 1000 MCG GT (08:37)
[2023-05-22] MEDS: MULTIVIT-MIN/IRON FUM/FOLIC AC 1 EACH TABLET GT (08:37)
[2023-05-22] MEDS: DEXLANSOPRAZOLE 30 MG GT (08:37)
[2023-05-22] MEDS: ATORVASTATIN 40 MG TABLET GT (20:27)
[2023-05-22] MEDS: INSULIN GLARGINE 100 UNIT/ML INSULN.PEN 30 UNIT SC (21:43)
[2023-05-23] VITALS (9 sets, daily range): BP systolic 107–138; BP diastolic 60–70; PULSE 51–71; RESP 14–20; TEMP 36–36.3; O2SAT 93–98
[2023-05-23] MEDS: IPRATROPIUM BROMIDE 200 PUFF/INH INHALER IH ×4 (00:35→19:12)
[2023-05-23] MEDS: ALBUTEROL INHALER 200 PUFF/INH INHALER INH ×2 (00:35→06:35)
[2023-05-23] MEDS: CARVEDILOL 3.125 MG TABLET GT (08:38)
[2023-05-23] MEDS: MULTIVIT-MIN/IRON FUM/FOLIC AC 1 EACH TABLET GT (08:39)
[2023-05-23] MEDS: CYANOCOBALAMIN (VITAMIN B-12) 500 MCG TABLET 1000 MCG GT (08:39)
[2023-05-23] MEDS: DEXLANSOPRAZOLE 30 MG GT (08:39)
--- NOTE | 2023-05-23 10:20 | CHAP ---
Patient was visited by the Spiritual Care Volunteer who prayed for them. (Volunteer was in the hospital from 08:36-10:20)
[2023-05-23] MEDS: ATORVASTATIN 40 MG TABLET GT (21:05)
[2023-05-23] MEDS: INSULIN GLARGINE 100 UNIT/ML INSULN.PEN 30 UNIT SC (21:05)
--- NOTE | 2023-05-23 23:15 | PD.SAPROG ---
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 No pain issues. Diagnosis and treatment reviewed. Plan: Treatment continued as ongoing. Gnosis poor
[2023-05-24] VITALS (10 sets, daily range): BP systolic 96–138; BP diastolic 61–76; PULSE 50–70; RESP 16–20; TEMP 35.9–36.2; O2SAT 95–98
[2023-05-24] MEDS: ALBUTEROL INHALER 200 PUFF/INH INHALER INH ×4 (01:34→19:22)
[2023-05-24] MEDS: IPRATROPIUM BROMIDE 200 PUFF/INH INHALER IH ×3 (06:40→19:22)
[2023-05-24] MEDS: CARVEDILOL 3.125 MG TABLET GT (09:03)
[2023-05-24] MEDS: MULTIVIT-MIN/IRON FUM/FOLIC AC 1 EACH TABLET GT (09:04)
[2023-05-24] MEDS: CYANOCOBALAMIN (VITAMIN B-12) 500 MCG TABLET 1000 MCG GT (09:04)
[2023-05-24] MEDS: DEXLANSOPRAZOLE 30 MG GT (09:04)
[2023-05-24] MEDS: guaiFENesin Liq 100 MG/5 ML LIQUID GT ×2 (09:06→21:52)
[2023-05-24] MEDS: ATORVASTATIN 40 MG TABLET GT (20:29)
[2023-05-25] VITALS (9 sets, daily range): BP systolic 119–137; BP diastolic 72–87; PULSE 52–72; RESP 18–20; TEMP 36.1–36.2; O2SAT 96–100
[2023-05-25] MEDS: ALBUTEROL INHALER 200 PUFF/INH INHALER INH ×4 (01:41→18:50)
[2023-05-25] MEDS: IPRATROPIUM BROMIDE 200 PUFF/INH INHALER IH ×4 (01:41→18:50)
[2023-05-25] MEDS: CARVEDILOL 3.125 MG TABLET GT (08:53)
[2023-05-25] MEDS: DEXLANSOPRAZOLE 30 MG GT (08:54)
[2023-05-25] MEDS: MULTIVIT-MIN/IRON FUM/FOLIC AC 1 EACH TABLET GT (08:54)
[2023-05-25] MEDS: CYANOCOBALAMIN (VITAMIN B-12) 500 MCG TABLET 1000 MCG GT (08:54)
[2023-05-25] MEDS: INSULIN GLARGINE 100 UNIT/ML INSULN.PEN 30 UNIT SC (20:40)
[2023-05-25] MEDS: ATORVASTATIN 40 MG TABLET GT (20:40)
[2023-05-26] VITALS (8 sets, daily range): BP systolic 118–148; BP diastolic 58–77; PULSE 53–79; RESP 17–20; TEMP 36.1–36.2; O2SAT 96–100
[2023-05-26] MEDS: ALBUTEROL INHALER 200 PUFF/INH INHALER INH ×3 (00:54→18:55)
[2023-05-26] MEDS: IPRATROPIUM BROMIDE 200 PUFF/INH INHALER IH ×3 (00:54→11:33)
[2023-05-26] MEDS: MULTIVIT-MIN/IRON FUM/FOLIC AC 1 EACH TABLET GT (08:43)
[2023-05-26] MEDS: CYANOCOBALAMIN (VITAMIN B-12) 500 MCG TABLET 1000 MCG GT (08:43)
[2023-05-26] MEDS: DEXLANSOPRAZOLE 30 MG GT (08:43)
[2023-05-26] MEDS: ATORVASTATIN 40 MG TABLET GT (20:47)
[2023-05-26] MEDS: INSULIN GLARGINE 100 UNIT/ML INSULN.PEN 30 UNIT SC (21:32)
[2023-05-27] VITALS (9 sets, daily range): BP systolic 100–136; BP diastolic 66–82; PULSE 50–72; RESP 16–18; TEMP 36.1–36.5; O2SAT 95–99
[2023-05-27] MEDS: ALBUTEROL INHALER 200 PUFF/INH INHALER INH ×2 (06:32→18:19)
[2023-05-27] MEDS: IPRATROPIUM BROMIDE 200 PUFF/INH INHALER IH ×2 (06:38→18:19)
[2023-05-27] MEDS: CARVEDILOL 3.125 MG TABLET GT (08:49)
[2023-05-27] MEDS: CYANOCOBALAMIN (VITAMIN B-12) 500 MCG TABLET 1000 MCG GT (08:50)
[2023-05-27] MEDS: DEXLANSOPRAZOLE 30 MG GT (08:50)
[2023-05-27] MEDS: MULTIVIT-MIN/IRON FUM/FOLIC AC 1 EACH TABLET GT (08:50)
--- NOTE | 2023-05-27 12:35 | PD.SAPROG ---
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 No pain issues. Diagnosis and treatment reviewed. Plan: Treatment continued as ongoing. Gnosis poor
--- NOTE | 2023-05-27 13:05 | PC.CWCCOMPLE ---
Armored Truck Driver Pharmacist YUNI Jc
--- NOTE | 2023-05-27 13:38 | CHAP ---
11:00 AM visited by spiritual care volunteer. Patient sleeping peacefully. She provided a silent prayer by patient bed
[2023-05-27] MEDS: MAGNESIUM HYDROXIDE 30 ML ORAL SUSP ML GT (20:23)
[2023-05-27] MEDS: ATORVASTATIN 40 MG TABLET GT (20:23)
[2023-05-27] MEDS: INSULIN GLARGINE 100 UNIT/ML INSULN.PEN 30 UNIT SC (20:53)
[2023-05-28] VITALS (9 sets, daily range): BP systolic 96–135; BP diastolic 65–72; PULSE 43–74; RESP 17–18; TEMP 36.1–36.2; O2SAT 97–99
[2023-05-28] MEDS: ALBUTEROL INHALER 200 PUFF/INH INHALER INH ×4 (00:17→19:25)
[2023-05-28] MEDS: IPRATROPIUM BROMIDE 200 PUFF/INH INHALER IH ×4 (00:17→19:25)
[2023-05-28] MEDS: DEXLANSOPRAZOLE 30 MG GT (08:51)
[2023-05-28] MEDS: CYANOCOBALAMIN (VITAMIN B-12) 500 MCG TABLET 1000 MCG GT (08:51)
[2023-05-28] MEDS: MULTIVIT-MIN/IRON FUM/FOLIC AC 1 EACH TABLET GT (08:51)
--- NOTE | 2023-05-28 15:48 | PC.SS ---
Room visit: Resident is laying in bed with head of the bed elevated light properly placed. Resident is well groomed with no signs of distress. Resident currently has no changes in care or condition, resident will remain in current care as resident is not ready to DC to SNF or lower level of care. Resident will have daily room visits from [facility].
[2023-05-28] MEDS: ATORVASTATIN 40 MG TABLET GT (20:37)
[2023-05-28] MEDS: INSULIN GLARGINE 100 UNIT/ML INSULN.PEN 30 UNIT SC (21:11)
[2023-05-29] VITALS (9 sets, daily range): BP systolic 91–153; BP diastolic 60–77; PULSE 50–84; RESP 16–19; TEMP 36.1–36.2; O2SAT 96–100
[2023-05-29] MEDS: IPRATROPIUM BROMIDE 200 PUFF/INH INHALER IH ×4 (01:51→18:37)
[2023-05-29] MEDS: ALBUTEROL INHALER 200 PUFF/INH INHALER INH ×4 (01:51→18:37)
[2023-05-29] MEDS: CYANOCOBALAMIN (VITAMIN B-12) 500 MCG TABLET 1000 MCG GT (08:32)
[2023-05-29] MEDS: DEXLANSOPRAZOLE 30 MG GT (08:32)
[2023-05-29] MEDS: MULTIVIT-MIN/IRON FUM/FOLIC AC 1 EACH TABLET GT (08:32)
[2023-05-29] MEDS: ATORVASTATIN 40 MG TABLET GT (20:33)
[2023-05-29] MEDS: INSULIN GLARGINE 100 UNIT/ML INSULN.PEN 30 UNIT SC (21:10)
[2023-05-30] VITALS (9 sets, daily range): BP systolic 99–141; BP diastolic 68–75; PULSE 58–79; RESP 17–18; TEMP 36.1–36.3; O2SAT 96–99
[2023-05-30] MEDS: ALBUTEROL INHALER 200 PUFF/INH INHALER INH ×4 (00:26→18:14)
[2023-05-30 06:16] LABS: Glucose,Fasting 110 mg/dL (74-106)
[2023-05-30] MEDS: IPRATROPIUM BROMIDE 200 PUFF/INH INHALER IH ×3 (06:59→18:14)
[2023-05-30] MEDS: CYANOCOBALAMIN (VITAMIN B-12) 500 MCG TABLET 1000 MCG GT (08:33)
[2023-05-30] MEDS: MULTIVIT-MIN/IRON FUM/FOLIC AC 1 EACH TABLET GT (08:34)
[2023-05-30] MEDS: DEXLANSOPRAZOLE 30 MG GT (08:34)
--- NOTE | 2023-05-30 10:15 | CHAP ---
Patient was visited by the Spiritual Care Volunteers who also prayed for them. (Volunteers were in the hospital from 09:20-10:15).
[2023-05-30] MEDS: ATORVASTATIN 40 MG TABLET GT (20:34)
[2023-05-30] MEDS: INSULIN GLARGINE 100 UNIT/ML INSULN.PEN 30 UNIT SC (21:00)
[2023-05-31] VITALS (9 sets, daily range): BP systolic 102–140; BP diastolic 68–78; PULSE 56–86; RESP 16–98; TEMP 36.1–36.3; O2SAT 97–100
[2023-05-31] MEDS: ALBUTEROL INHALER 200 PUFF/INH INHALER INH ×4 (00:46→19:10)
[2023-05-31] MEDS: IPRATROPIUM BROMIDE 200 PUFF/INH INHALER IH ×4 (00:46→19:10)
[2023-05-31] MEDS: CYANOCOBALAMIN (VITAMIN B-12) 500 MCG TABLET 1000 MCG GT (08:43)
[2023-05-31] MEDS: DEXLANSOPRAZOLE 30 MG GT (08:44)
[2023-05-31] MEDS: MULTIVIT-MIN/IRON FUM/FOLIC AC 1 EACH TABLET GT (08:44)
[2023-05-31] MEDS: INSULIN GLARGINE 100 UNIT/ML INSULN.PEN 30 UNIT SC (20:16)
[2023-05-31] MEDS: ATORVASTATIN 40 MG TABLET GT (20:18)
[2023-06-01] VITALS (9 sets, daily range): BP systolic 98–127; BP diastolic 53–87; PULSE 52–81; RESP 18–96; TEMP 36.1–36.2; O2SAT 95–98
[2023-06-01] MEDS: ALBUTEROL INHALER 200 PUFF/INH INHALER INH ×4 (00:49→18:35)
[2023-06-01] MEDS: IPRATROPIUM BROMIDE 200 PUFF/INH INHALER IH ×4 (00:49→18:35)
[2023-06-01] MEDS: CARVEDILOL 3.125 MG TABLET GT (08:31)
[2023-06-01] MEDS: CYANOCOBALAMIN (VITAMIN B-12) 500 MCG TABLET 1000 MCG GT (08:32)
[2023-06-01] MEDS: DEXLANSOPRAZOLE 30 MG GT (08:32)
[2023-06-01] MEDS: MULTIVIT-MIN/IRON FUM/FOLIC AC 1 EACH TABLET GT (08:32)
[2023-06-01] MEDS: ATORVASTATIN 40 MG TABLET GT (20:43)
[2023-06-01] MEDS: INSULIN GLARGINE 100 UNIT/ML INSULN.PEN 30 UNIT SC (21:16)
[2023-06-02] VITALS (9 sets, daily range): BP systolic 101–129; BP diastolic 52–71; PULSE 58–82; RESP 18–20; TEMP 36.1–36.7; O2SAT 96–97
[2023-06-02] MEDS: IPRATROPIUM BROMIDE 200 PUFF/INH INHALER IH ×4 (00:45→18:45)
[2023-06-02] MEDS: ALBUTEROL INHALER 200 PUFF/INH INHALER INH ×4 (00:45→18:45)
[2023-06-02] MEDS: CARVEDILOL 3.125 MG TABLET GT (09:01)
[2023-06-02] MEDS: DEXLANSOPRAZOLE 30 MG GT (09:03)
[2023-06-02] MEDS: CYANOCOBALAMIN (VITAMIN B-12) 500 MCG TABLET 1000 MCG GT (09:03)
[2023-06-02] MEDS: MULTIVIT-MIN/IRON FUM/FOLIC AC 1 EACH TABLET GT (09:03)
[2023-06-02] MEDS: ATORVASTATIN 40 MG TABLET GT (20:47)
[2023-06-02] MEDS: INSULIN GLARGINE 100 UNIT/ML INSULN.PEN 30 UNIT SC (20:48)
--- NOTE | 2023-06-02 22:57 | PD.SAPROG ---
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 No pain issues. Diagnosis and treatment reviewed. Plan: Treatment continued as ongoing. Gnosis poor
[2023-06-03] VITALS (9 sets, daily range): BP systolic 90–146; BP diastolic 57–81; PULSE 64–89; RESP 17–18; TEMP 36.1–36.9; O2SAT 96–97
[2023-06-03] MEDS: ALBUTEROL INHALER 200 PUFF/INH INHALER INH ×4 (01:05→18:50)
[2023-06-03] MEDS: IPRATROPIUM BROMIDE 200 PUFF/INH INHALER IH ×4 (01:05→18:50)
[2023-06-03] MEDS: guaiFENesin Liq 100 MG/5 ML LIQUID GT (05:17)
[2023-06-03] MEDS: ACETAMINOPHEN 325 MG TABLET 650 MG GT (05:17)
[2023-06-03] MEDS: MULTIVIT-MIN/IRON FUM/FOLIC AC 1 EACH TABLET GT (08:54)
[2023-06-03] MEDS: DEXLANSOPRAZOLE 30 MG GT (08:54)
[2023-06-03] MEDS: CYANOCOBALAMIN (VITAMIN B-12) 500 MCG TABLET 1000 MCG GT (08:54)
[2023-06-03] MEDS: ATORVASTATIN 40 MG TABLET GT (20:43)
[2023-06-03] MEDS: INSULIN GLARGINE 100 UNIT/ML INSULN.PEN 30 UNIT SC (20:56)
[2023-06-04] VITALS (8 sets, daily range): BP systolic 95–138; BP diastolic 64–86; PULSE 57–78; RESP 18–19; TEMP 36.1–36.6; O2SAT 96–98
[2023-06-04] MEDS: guaiFENesin Liq 100 MG/5 ML LIQUID GT (00:33)
[2023-06-04] MEDS: ALBUTEROL INHALER 200 PUFF/INH INHALER INH ×3 (07:19→18:30)
[2023-06-04] MEDS: CYANOCOBALAMIN (VITAMIN B-12) 500 MCG TABLET 1000 MCG GT (08:48)
[2023-06-04] MEDS: DEXLANSOPRAZOLE 30 MG GT (08:48)
[2023-06-04] MEDS: MULTIVIT-MIN/IRON FUM/FOLIC AC 1 EACH TABLET GT (08:49)
--- NOTE | 2023-06-04 15:51 | PC.SS ---
Room visit: Resident is laying in bed with head of the bed elevated with call light properly placed. Resident is well groomed with no signs of distress. Resident continues to get daily room visits, not showing any changes in mood or behavior. Resident will remain in current care as there are no changes in care or condition. Resident will continue to be evaluated as appropriate for DC to lower level of care.
[2023-06-04] MEDS: IPRATROPIUM BROMIDE 200 PUFF/INH INHALER IH (18:30)
[2023-06-04] MEDS: INSULIN GLARGINE 100 UNIT/ML INSULN.PEN 30 UNIT SC (20:59)
[2023-06-04] MEDS: ATORVASTATIN 40 MG TABLET GT (21:01)
[2023-06-05] VITALS (9 sets, daily range): BP systolic 107–143; BP diastolic 69–94; PULSE 54–81; RESP 16–20; TEMP 36.2–36.3; O2SAT 95–97
[2023-06-05] MEDS: IPRATROPIUM BROMIDE 200 PUFF/INH INHALER IH ×3 (00:40→19:24)
[2023-06-05] MEDS: ALBUTEROL INHALER 200 PUFF/INH INHALER INH ×3 (00:40→19:24)
[2023-06-05] MEDS: DEXLANSOPRAZOLE 30 MG GT (08:36)
[2023-06-05] MEDS: MULTIVIT-MIN/IRON FUM/FOLIC AC 1 EACH TABLET GT (08:36)
[2023-06-05] MEDS: CYANOCOBALAMIN (VITAMIN B-12) 500 MCG TABLET 1000 MCG GT (08:36)
[2023-06-05] MEDS: ATORVASTATIN 40 MG TABLET GT (20:36)
[2023-06-05] MEDS: INSULIN GLARGINE 100 UNIT/ML INSULN.PEN 30 UNIT SC (21:22)
[2023-06-06] VITALS (9 sets, daily range): BP systolic 94–125; BP diastolic 61–87; PULSE 64–81; RESP 17–18; TEMP 36.2–36.5; O2SAT 96–99
[2023-06-06] MEDS: IPRATROPIUM BROMIDE 200 PUFF/INH INHALER IH ×4 (00:42→19:55)
[2023-06-06] MEDS: ALBUTEROL INHALER 200 PUFF/INH INHALER INH ×4 (00:42→19:55)
[2023-06-06] MEDS: CYANOCOBALAMIN (VITAMIN B-12) 500 MCG TABLET 1000 MCG GT (08:23)
[2023-06-06] MEDS: DEXLANSOPRAZOLE 30 MG GT (08:23)
[2023-06-06] MEDS: CARVEDILOL 3.125 MG TABLET GT (08:23)
[2023-06-06] MEDS: MULTIVIT-MIN/IRON FUM/FOLIC AC 1 EACH TABLET GT (08:24)
[2023-06-06] MEDS: INSULIN GLARGINE 100 UNIT/ML INSULN.PEN 30 UNIT SC (21:18)
[2023-06-06] MEDS: ATORVASTATIN 40 MG TABLET GT (21:18)
[2023-06-07] VITALS (9 sets, daily range): BP systolic 97–121; BP diastolic 57–82; PULSE 55–99; RESP 18–21; TEMP 36.1–36.7; O2SAT 96–99
[2023-06-07] MEDS: IPRATROPIUM BROMIDE 200 PUFF/INH INHALER IH ×3 (01:00→13:00)
[2023-06-07] MEDS: ALBUTEROL INHALER 200 PUFF/INH INHALER INH ×4 (01:00→18:18)
[2023-06-07] MEDS: CARVEDILOL 3.125 MG TABLET GT (08:28)
[2023-06-07] MEDS: DEXLANSOPRAZOLE 30 MG GT (08:29)
[2023-06-07] MEDS: CYANOCOBALAMIN (VITAMIN B-12) 500 MCG TABLET 1000 MCG GT (08:29)
[2023-06-07] MEDS: MULTIVIT-MIN/IRON FUM/FOLIC AC 1 EACH TABLET GT (08:30)
[2023-06-07] MEDS: ATORVASTATIN 40 MG TABLET GT (21:21)
[2023-06-07] MEDS: INSULIN GLARGINE 100 UNIT/ML INSULN.PEN 30 UNIT SC (21:35)
[2023-06-08] VITALS (8 sets, daily range): BP systolic 94–128; BP diastolic 55–78; PULSE 67–94; RESP 18; TEMP 36.1–36.2; O2SAT 97–98
[2023-06-08] MEDS: ALBUTEROL INHALER 200 PUFF/INH INHALER INH ×4 (00:42→20:25)
[2023-06-08] MEDS: IPRATROPIUM BROMIDE 200 PUFF/INH INHALER IH ×3 (07:05→20:25)
[2023-06-08] MEDS: CYANOCOBALAMIN (VITAMIN B-12) 500 MCG TABLET 1000 MCG GT (08:54)
[2023-06-08] MEDS: DEXLANSOPRAZOLE 30 MG GT (08:54)
[2023-06-08] MEDS: MULTIVIT-MIN/IRON FUM/FOLIC AC 1 EACH TABLET GT (08:54)
[2023-06-08] MEDS: INSULIN GLARGINE 100 UNIT/ML INSULN.PEN 30 UNIT SC (20:10)
[2023-06-08] MEDS: ATORVASTATIN 40 MG TABLET GT (20:11)
[2023-06-09] VITALS (9 sets, daily range): BP systolic 99–127; BP diastolic 55–79; PULSE 54–76; RESP 18–20; TEMP 36.1–36.5; O2SAT 96–100
[2023-06-09] MEDS: ALBUTEROL INHALER 200 PUFF/INH INHALER INH ×4 (00:25→18:52)
[2023-06-09] MEDS: IPRATROPIUM BROMIDE 200 PUFF/INH INHALER IH ×4 (00:25→18:52)
[2023-06-09] MEDS: guaiFENesin Liq 100 MG/5 ML LIQUID GT (00:45)
[2023-06-09] MEDS: CYANOCOBALAMIN (VITAMIN B-12) 500 MCG TABLET 1000 MCG GT (09:15)
[2023-06-09] MEDS: CARVEDILOL 3.125 MG TABLET GT (09:15)
[2023-06-09] MEDS: DEXLANSOPRAZOLE 30 MG GT (09:16)
[2023-06-09] MEDS: MULTIVIT-MIN/IRON FUM/FOLIC AC 1 EACH TABLET GT (09:16)
--- NOTE | 2023-06-09 12:01 | PC.SS ---
Room visit: Resident is laying in bed with head of the bed elevated with call light properly placed with no signs of distress. Resident is well groomed and appears comfortable. Resident will continue to receive daily room visits as there are no changes in care or condition.
--- NOTE | 2023-06-09 14:06 | PC.SS ---
Resident remains in subacute care, no DC date made available at this time as he continues to require 24 hour care total dependent on staff for all ADL's. Resident family is unable to care for him at home due to heavy complicated care regimen. Resident will remain in current care on blow by and will continue to be evaluated for any changes in care or condition as currently there is no changes in condition. Resident will remain in current care and remain fully supported.
[2023-06-09] MEDS: ATORVASTATIN 40 MG TABLET GT (21:06)
[2023-06-09] MEDS: INSULIN GLARGINE 100 UNIT/ML INSULN.PEN 30 UNIT SC (21:07)
[2023-06-10] VITALS (10 sets, daily range): BP systolic 102–130; BP diastolic 58–79; PULSE 43–81; RESP 16–20; TEMP 36.1–36.2; O2SAT 92–99
[2023-06-10] MEDS: IPRATROPIUM BROMIDE 200 PUFF/INH INHALER IH ×4 (01:12→19:36)
[2023-06-10] MEDS: ALBUTEROL INHALER 200 PUFF/INH INHALER INH ×4 (01:12→19:36)
[2023-06-10] MEDS: CARVEDILOL 3.125 MG TABLET GT (09:02)
[2023-06-10] MEDS: MULTIVIT-MIN/IRON FUM/FOLIC AC 1 EACH TABLET GT (09:03)
[2023-06-10] MEDS: CYANOCOBALAMIN (VITAMIN B-12) 500 MCG TABLET 1000 MCG GT (09:03)
[2023-06-10] MEDS: DEXLANSOPRAZOLE 30 MG GT (09:03)
--- NOTE | 2023-06-10 12:46 | CHAP ---
Patient was visited by the Spiritual Care Volunteer who prayed with them. (Volunteer was in the hospital from 10:30-12:46).
[2023-06-10] MEDS: ATORVASTATIN 40 MG TABLET GT (20:42)
[2023-06-10] MEDS: INSULIN GLARGINE 100 UNIT/ML INSULN.PEN 30 UNIT SC (21:13)
--- NOTE | 2023-06-10 21:54 | PD.SAPROG ---
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 No pain issues. Diagnosis and treatment reviewed. Plan: Treatment continued as ongoing. Gnosis poor
[2023-06-11] VITALS (8 sets, daily range): BP systolic 113–140; BP diastolic 70–85; PULSE 52–85; RESP 16–19; TEMP 36.1–36.4; O2SAT 94–97
[2023-06-11] MEDS: ALBUTEROL INHALER 200 PUFF/INH INHALER INH ×3 (07:05→18:55)
[2023-06-11] MEDS: IPRATROPIUM BROMIDE 200 PUFF/INH INHALER IH ×3 (07:05→18:55)
[2023-06-11] MEDS: CARVEDILOL 3.125 MG TABLET GT (09:18)
[2023-06-11] MEDS: CYANOCOBALAMIN (VITAMIN B-12) 500 MCG TABLET 1000 MCG GT (09:18)
[2023-06-11] MEDS: DEXLANSOPRAZOLE 30 MG GT (09:19)
[2023-06-11] MEDS: MULTIVIT-MIN/IRON FUM/FOLIC AC 1 EACH TABLET GT (09:19)
[2023-06-11] MEDS: ATORVASTATIN 40 MG TABLET GT (20:06)
[2023-06-11] MEDS: INSULIN GLARGINE 100 UNIT/ML INSULN.PEN 30 UNIT SC (21:08)
[2023-06-12] VITALS (9 sets, daily range): BP systolic 107–146; BP diastolic 70–99; PULSE 63–81; RESP 16–21; TEMP 35.8–36.6; O2SAT 92–97
[2023-06-12] MEDS: guaiFENesin Liq 100 MG/5 ML LIQUID 300 MG GT (00:45)
[2023-06-12] MEDS: ALBUTEROL INHALER 200 PUFF/INH INHALER INH ×4 (02:05→18:35)
[2023-06-12] MEDS: IPRATROPIUM BROMIDE 200 PUFF/INH INHALER IH ×4 (02:05→18:35)
[2023-06-12] MEDS: CARVEDILOL 3.125 MG TABLET GT (08:36)
[2023-06-12] MEDS: CYANOCOBALAMIN (VITAMIN B-12) 500 MCG TABLET 1000 MCG GT (08:37)
[2023-06-12] MEDS: MULTIVIT-MIN/IRON FUM/FOLIC AC 1 EACH TABLET GT (08:37)
[2023-06-12] MEDS: DEXLANSOPRAZOLE 30 MG GT (08:37)
[2023-06-12] MEDS: ATORVASTATIN 40 MG TABLET GT (21:14)
[2023-06-12] MEDS: INSULIN GLARGINE 100 UNIT/ML INSULN.PEN 30 UNIT SC (21:53)
[2023-06-13] VITALS (9 sets, daily range): BP systolic 94–131; BP diastolic 58–75; PULSE 56–85; RESP 16–19; TEMP 36.2–36.5; O2SAT 94–98
[2023-06-13] MEDS: ALBUTEROL INHALER 200 PUFF/INH INHALER INH ×4 (00:55→18:45)
[2023-06-13] MEDS: IPRATROPIUM BROMIDE 200 PUFF/INH INHALER IH ×4 (00:55→18:45)
[2023-06-13] MEDS: DEXLANSOPRAZOLE 30 MG GT (08:36)
[2023-06-13] MEDS: CYANOCOBALAMIN (VITAMIN B-12) 500 MCG TABLET 1000 MCG GT (08:36)
[2023-06-13] MEDS: MULTIVIT-MIN/IRON FUM/FOLIC AC 1 EACH TABLET GT (08:37)
--- NOTE | 2023-06-13 10:18 | CHAP ---
Patient was visited by the Spiritual Care Volunteer who prayed for them. (Volunteer was in the hospital from 09:04-10:18).
[2023-06-13] MEDS: ATORVASTATIN 40 MG TABLET GT (20:50)
[2023-06-13] MEDS: INSULIN GLARGINE 100 UNIT/ML INSULN.PEN 30 UNIT SC (21:24)
[2023-06-14] VITALS (9 sets, daily range): BP systolic 106–145; BP diastolic 56–80; PULSE 53–78; RESP 16–20; TEMP 36.1–36.2; O2SAT 95–100
[2023-06-14] MEDS: IPRATROPIUM BROMIDE 200 PUFF/INH INHALER IH ×4 (00:58→19:07)
[2023-06-14] MEDS: ALBUTEROL INHALER 200 PUFF/INH INHALER INH ×4 (00:58→19:07)
[2023-06-14] MEDS: guaiFENesin Liq 100 MG/5 ML LIQUID 300 MG GT (01:39)
[2023-06-14] MEDS: CARVEDILOL 3.125 MG TABLET GT (08:38)
[2023-06-14] MEDS: CYANOCOBALAMIN (VITAMIN B-12) 500 MCG TABLET 1000 MCG GT (08:38)
[2023-06-14] MEDS: DEXLANSOPRAZOLE 30 MG GT (08:39)
[2023-06-14] MEDS: MULTIVIT-MIN/IRON FUM/FOLIC AC 1 EACH TABLET GT (08:39)
--- NOTE | 2023-06-14 12:20 | PD.SAPROG ---
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
[2023-06-14] MEDS: ATORVASTATIN 40 MG TABLET GT (20:38)
[2023-06-14] MEDS: MAGNESIUM HYDROXIDE 30 ML ORAL SUSP ML GT (20:39)
[2023-06-14] MEDS: INSULIN GLARGINE 100 UNIT/ML INSULN.PEN 30 UNIT SC (21:16)
[2023-06-15] VITALS (10 sets, daily range): BP systolic 98–130; BP diastolic 53–75; PULSE 47–71; RESP 16–18; TEMP 36–36.3; O2SAT 94–98
[2023-06-15] MEDS: IPRATROPIUM BROMIDE 200 PUFF/INH INHALER IH ×4 (00:10→18:32)
[2023-06-15] MEDS: ALBUTEROL INHALER 200 PUFF/INH INHALER INH ×4 (00:10→18:32)
[2023-06-15] MEDS: CARVEDILOL 3.125 MG TABLET GT (08:45)
[2023-06-15] MEDS: DEXLANSOPRAZOLE 30 MG GT (08:47)
[2023-06-15] MEDS: MULTIVIT-MIN/IRON FUM/FOLIC AC 1 EACH TABLET GT (08:47)
[2023-06-15] MEDS: CYANOCOBALAMIN (VITAMIN B-12) 500 MCG TABLET 1000 MCG GT (08:47)
[2023-06-15] MEDS: ATORVASTATIN 40 MG TABLET GT (20:30)
[2023-06-15] MEDS: INSULIN GLARGINE 100 UNIT/ML INSULN.PEN 30 UNIT SC (20:56)
[2023-06-16] VITALS (9 sets, daily range): BP systolic 106–144; BP diastolic 70–85; PULSE 55–73; RESP 16–18; TEMP 36.1–36.4; O2SAT 94–99
[2023-06-16] MEDS: IPRATROPIUM BROMIDE 200 PUFF/INH INHALER IH ×3 (06:47→18:20)
[2023-06-16] MEDS: ALBUTEROL INHALER 200 PUFF/INH INHALER INH ×3 (06:47→18:20)
[2023-06-16] MEDS: DEXLANSOPRAZOLE 30 MG GT (08:18)
[2023-06-16] MEDS: CARVEDILOL 3.125 MG TABLET GT (08:18)
[2023-06-16] MEDS: MULTIVIT-MIN/IRON FUM/FOLIC AC 1 EACH TABLET GT (08:18)
[2023-06-16] MEDS: CYANOCOBALAMIN (VITAMIN B-12) 500 MCG TABLET 1000 MCG GT (08:18)
[2023-06-16] MEDS: INSULIN GLARGINE 100 UNIT/ML INSULN.PEN 30 UNIT SC (20:30)
[2023-06-16] MEDS: ATORVASTATIN 40 MG TABLET GT (20:55)
[2023-06-17] VITALS (9 sets, daily range): BP systolic 106–129; BP diastolic 67–78; PULSE 56–75; RESP 16–20; TEMP 36.1–36.3; O2SAT 94–99
[2023-06-17] MEDS: IPRATROPIUM BROMIDE 200 PUFF/INH INHALER IH ×3 (01:26→18:52)
[2023-06-17] MEDS: ALBUTEROL INHALER 200 PUFF/INH INHALER INH ×3 (01:26→18:52)
[2023-06-17] MEDS: CARVEDILOL 3.125 MG TABLET GT (08:56)
[2023-06-17] MEDS: DEXLANSOPRAZOLE 30 MG GT (08:57)
[2023-06-17] MEDS: MULTIVIT-MIN/IRON FUM/FOLIC AC 1 EACH TABLET GT (08:57)
[2023-06-17] MEDS: CYANOCOBALAMIN (VITAMIN B-12) 500 MCG TABLET 1000 MCG GT (08:57)
[2023-06-17] MEDS: ATORVASTATIN 40 MG TABLET GT (20:36)
[2023-06-17] MEDS: INSULIN GLARGINE 100 UNIT/ML INSULN.PEN 30 UNIT SC (20:51)
[2023-06-17] MEDS: guaiFENesin Liq 100 MG/5 ML LIQUID 300 MG GT (21:48)
[2023-06-18] VITALS (9 sets, daily range): BP systolic 104–153; BP diastolic 54–84; PULSE 60–73; RESP 17–20; TEMP 36.1–36.2; O2SAT 95–100
[2023-06-18] MEDS: ALBUTEROL INHALER 200 PUFF/INH INHALER INH ×4 (01:04→20:15)
[2023-06-18] MEDS: IPRATROPIUM BROMIDE 200 PUFF/INH INHALER IH ×4 (01:04→20:15)
[2023-06-18] MEDS: CARVEDILOL 3.125 MG TABLET GT (08:41)
[2023-06-18] MEDS: DEXLANSOPRAZOLE 30 MG GT (08:42)
[2023-06-18] MEDS: CYANOCOBALAMIN (VITAMIN B-12) 500 MCG TABLET 1000 MCG GT (08:42)
[2023-06-18] MEDS: MULTIVIT-MIN/IRON FUM/FOLIC AC 1 EACH TABLET GT (08:42)
--- NOTE | 2023-06-18 13:55 | CHAP ---
Patient was visited by the Spiritual Care Volunteer who prayed silently for him. (Volunteer was in the hospital from 10:20-11:20; 12:45-13:55).
--- NOTE | 2023-06-18 13:57 | PC.SS ---
Room visit: Resident is laying in bed with head of the bed elevated with call light properly placed. Resident is well groomed with no signs of distress. Resident mood is adequate with no changes. Resident continues to receive daily room visits and will be monitored for any changes in care or condition. Plan is for resident to remain in current care as resident remains total care unable to make needs known.
[2023-06-18] MEDS: ATORVASTATIN 40 MG TABLET GT (20:57)
[2023-06-18] MEDS: INSULIN GLARGINE 100 UNIT/ML INSULN.PEN 30 UNIT SC (20:57)
[2023-06-18] MEDS: MAGNESIUM HYDROXIDE 30 ML ORAL SUSP ML GT (21:01)
--- NOTE | 2023-06-18 23:02 | PD.SAPROG ---
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
[2023-06-19] VITALS (10 sets, daily range): BP systolic 100–116; BP diastolic 62–72; PULSE 63–89; RESP 17–20; TEMP 35.6–36.4; O2SAT 95–98
[2023-06-19] MEDS: ALBUTEROL INHALER 200 PUFF/INH INHALER INH ×4 (00:20→18:26)
[2023-06-19] MEDS: IPRATROPIUM BROMIDE 200 PUFF/INH INHALER IH ×3 (07:10→18:26)
[2023-06-19] MEDS: CARVEDILOL 3.125 MG TABLET GT (08:16)
[2023-06-19] MEDS: CYANOCOBALAMIN (VITAMIN B-12) 500 MCG TABLET 1000 MCG GT (08:17)
[2023-06-19] MEDS: DEXLANSOPRAZOLE 30 MG GT (08:18)
[2023-06-19] MEDS: MULTIVIT-MIN/IRON FUM/FOLIC AC 1 EACH TABLET GT (08:18)
[2023-06-19] MEDS: ATORVASTATIN 40 MG TABLET GT (20:36)
[2023-06-19] MEDS: INSULIN GLARGINE 100 UNIT/ML INSULN.PEN 30 UNIT SC (21:15)
[2023-06-20] VITALS (10 sets, daily range): BP systolic 102–138; BP diastolic 55–82; PULSE 62–80; RESP 16–22; TEMP 36.1–36.4; O2SAT 96–100
[2023-06-20] MEDS: IPRATROPIUM BROMIDE 200 PUFF/INH INHALER IH ×3 (00:22→18:17)
[2023-06-20] MEDS: ALBUTEROL INHALER 200 PUFF/INH INHALER INH ×4 (00:22→18:17)
[2023-06-20] MEDS: CARVEDILOL 3.125 MG TABLET GT (09:00)
[2023-06-20] MEDS: MULTIVIT-MIN/IRON FUM/FOLIC AC 1 EACH TABLET GT (09:00)
[2023-06-20] MEDS: CYANOCOBALAMIN (VITAMIN B-12) 500 MCG TABLET 1000 MCG GT (09:00)
[2023-06-20] MEDS: DEXLANSOPRAZOLE 30 MG GT (09:00)
[2023-06-20] MEDS: ATORVASTATIN 40 MG TABLET GT (20:27)
[2023-06-20] MEDS: INSULIN GLARGINE 100 UNIT/ML INSULN.PEN 30 UNIT SC (20:52)
[2023-06-21] VITALS (11 sets, daily range): BP systolic 112–145; BP diastolic 65–86; PULSE 69–84; RESP 16–21; TEMP 36–36.6; O2SAT 96–100
[2023-06-21] MEDS: IPRATROPIUM BROMIDE 200 PUFF/INH INHALER IH ×2 (06:50→18:10)
[2023-06-21] MEDS: ALBUTEROL INHALER 200 PUFF/INH INHALER INH (06:50)
[2023-06-21] MEDS: CYANOCOBALAMIN (VITAMIN B-12) 500 MCG TABLET 1000 MCG GT (08:27)
[2023-06-21] MEDS: CARVEDILOL 3.125 MG TABLET GT (08:27)
[2023-06-21] MEDS: DEXLANSOPRAZOLE 30 MG GT (08:28)
[2023-06-21] MEDS: MULTIVIT-MIN/IRON FUM/FOLIC AC 1 EACH TABLET GT (08:28)
[2023-06-21] MEDS: ATORVASTATIN 40 MG TABLET GT (20:19)
[2023-06-21] MEDS: guaiFENesin Liq 100 MG/5 ML LIQUID 300 MG GT (20:19)
[2023-06-21] MEDS: INSULIN GLARGINE 100 UNIT/ML INSULN.PEN 30 UNIT SC (20:47)
[2023-06-22] VITALS (11 sets, daily range): BP systolic 92–130; BP diastolic 52–80; PULSE 50–118; RESP 16–96; TEMP 36.2–36.5; O2SAT 96–100
[2023-06-22] MEDS: IPRATROPIUM BROMIDE 200 PUFF/INH INHALER IH ×4 (00:13→18:35)
[2023-06-22] MEDS: ALBUTEROL INHALER 200 PUFF/INH INHALER INH ×4 (00:13→18:35)
[2023-06-22] MEDS: CARVEDILOL 3.125 MG TABLET GT (08:28)
[2023-06-22] MEDS: MULTIVIT-MIN/IRON FUM/FOLIC AC 1 EACH TABLET GT (08:28)
[2023-06-22] MEDS: DEXLANSOPRAZOLE 30 MG GT (08:28)
[2023-06-22] MEDS: CYANOCOBALAMIN (VITAMIN B-12) 500 MCG TABLET 1000 MCG GT (08:28)
[2023-06-22] MEDS: ATORVASTATIN 40 MG TABLET GT (20:20)
[2023-06-22] MEDS: INSULIN GLARGINE 100 UNIT/ML INSULN.PEN 30 UNIT SC (20:31)
--- NOTE | 2023-06-22 22:30 | PD.SAPROG ---
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
[2023-06-23] VITALS (10 sets, daily range): BP systolic 108–135; BP diastolic 68–81; PULSE 50–85; RESP 16–18; TEMP 36.1–36.4; O2SAT 96–98
[2023-06-23] MEDS: ALBUTEROL INHALER 200 PUFF/INH INHALER INH ×4 (00:09→20:20)
[2023-06-23] MEDS: IPRATROPIUM BROMIDE 200 PUFF/INH INHALER IH ×4 (00:09→20:20)
[2023-06-23] MEDS: CARVEDILOL 3.125 MG TABLET GT (08:30)
[2023-06-23] MEDS: DEXLANSOPRAZOLE 30 MG GT (08:31)
[2023-06-23] MEDS: CYANOCOBALAMIN (VITAMIN B-12) 500 MCG TABLET 1000 MCG GT (08:31)
[2023-06-23] MEDS: MULTIVIT-MIN/IRON FUM/FOLIC AC 1 EACH TABLET GT (08:31)
--- NOTE | 2023-06-23 17:47 | PC.CWCCOMPLE ---
Product Specialist Pharmacist MRR
[2023-06-23] MEDS: ATORVASTATIN 40 MG TABLET GT (21:38)
[2023-06-23] MEDS: INSULIN GLARGINE 100 UNIT/ML INSULN.PEN 30 UNIT SC (21:38)
[2023-06-24] VITALS (11 sets, daily range): BP systolic 94–138; BP diastolic 58–66; PULSE 53–85; RESP 16–100; TEMP 36–36.4; O2SAT 96–100
[2023-06-24] MEDS: ALBUTEROL INHALER 200 PUFF/INH INHALER INH ×4 (01:00→18:13)
[2023-06-24] MEDS: IPRATROPIUM BROMIDE 200 PUFF/INH INHALER IH ×4 (01:00→18:13)
[2023-06-24] MEDS: MULTIVIT-MIN/IRON FUM/FOLIC AC 1 EACH TABLET GT (08:19)
[2023-06-24] MEDS: DEXLANSOPRAZOLE 30 MG GT (08:19)
[2023-06-24] MEDS: CYANOCOBALAMIN (VITAMIN B-12) 500 MCG TABLET 1000 MCG GT (08:19)
--- NOTE | 2023-06-24 14:35 | CHAP ---
11:00 AM Visited by spiritual care volunteer provided prayer for Patient.
[2023-06-24] MEDS: guaiFENesin Liq 100 MG/5 ML LIQUID 300 MG GT (20:53)
[2023-06-24] MEDS: ATORVASTATIN 40 MG TABLET GT (20:53)
[2023-06-24] MEDS: INSULIN GLARGINE 100 UNIT/ML INSULN.PEN 30 UNIT SC (21:06)
[2023-06-25] VITALS (11 sets, daily range): BP systolic 95–122; BP diastolic 54–68; PULSE 52–88; RESP 16–22; TEMP 36.1–36.4; O2SAT 95–100
[2023-06-25] MEDS: ALBUTEROL INHALER 200 PUFF/INH INHALER INH ×4 (00:22→18:52)
[2023-06-25] MEDS: IPRATROPIUM BROMIDE 200 PUFF/INH INHALER IH ×4 (00:22→18:52)
[2023-06-25] MEDS: CYANOCOBALAMIN (VITAMIN B-12) 500 MCG TABLET 1000 MCG GT (08:21)
[2023-06-25] MEDS: DEXLANSOPRAZOLE 30 MG GT (08:21)
[2023-06-25] MEDS: MULTIVIT-MIN/IRON FUM/FOLIC AC 1 EACH TABLET GT (08:21)
--- NOTE | 2023-06-25 15:11 | PC.SS ---
Room visit: Resident is laying in bed with head of the bed elevated with call light properly placed. Resident is not showing any changes in mood or behavior. Resident will remain in current care as there are no changes in care or condition, resident will continue to be evaluated as appropriate for DC to lower level of care. This SSD will continue to make daily contact and offer support as needed.
[2023-06-25] MEDS: ATORVASTATIN 40 MG TABLET GT (20:28)
[2023-06-25] MEDS: INSULIN GLARGINE 100 UNIT/ML INSULN.PEN 30 UNIT SC (20:42)
[2023-06-26] VITALS (13 sets, daily range): BP systolic 95–118; BP diastolic 52–68; PULSE 56–86; RESP 16–18; TEMP 36.1–36.5; O2SAT 96–99
[2023-06-26] MEDS: IPRATROPIUM BROMIDE 200 PUFF/INH INHALER IH ×4 (01:20→18:44)
[2023-06-26] MEDS: ALBUTEROL INHALER 200 PUFF/INH INHALER INH ×4 (01:20→18:44)
[2023-06-26] MEDS: CYANOCOBALAMIN (VITAMIN B-12) 500 MCG TABLET 1000 MCG GT (08:54)
[2023-06-26] MEDS: CARVEDILOL 3.125 MG TABLET GT (08:54)
[2023-06-26] MEDS: DEXLANSOPRAZOLE 30 MG GT (08:54)
[2023-06-26] MEDS: MULTIVIT-MIN/IRON FUM/FOLIC AC 1 EACH TABLET GT (08:55)
[2023-06-26] MEDS: INSULIN GLARGINE 100 UNIT/ML INSULN.PEN 30 UNIT SC (21:07)
[2023-06-26] MEDS: ATORVASTATIN 40 MG TABLET GT (21:07)
--- NOTE | 2023-06-26 23:26 | PD.SAPROG ---
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
[2023-06-27] VITALS (11 sets, daily range): BP systolic 99–125; BP diastolic 59–71; PULSE 60–81; RESP 16–20; TEMP 36.1–36.4; O2SAT 95–98
[2023-06-27] MEDS: IPRATROPIUM BROMIDE 200 PUFF/INH INHALER IH ×4 (00:10→18:54)
[2023-06-27] MEDS: ALBUTEROL INHALER 200 PUFF/INH INHALER INH ×4 (00:10→18:54)
[2023-06-27] MEDS: MAGNESIUM HYDROXIDE 30 ML ORAL SUSP ML GT (08:30)
[2023-06-27] MEDS: CARVEDILOL 3.125 MG TABLET GT (08:31)
[2023-06-27] MEDS: MULTIVIT-MIN/IRON FUM/FOLIC AC 1 EACH TABLET GT (08:31)
[2023-06-27] MEDS: DEXLANSOPRAZOLE 30 MG GT (08:31)
[2023-06-27] MEDS: CYANOCOBALAMIN (VITAMIN B-12) 500 MCG TABLET 1000 MCG GT (08:31)
[2023-06-27] MEDS: ATORVASTATIN 40 MG TABLET GT (21:06)
[2023-06-27] MEDS: INSULIN GLARGINE 100 UNIT/ML INSULN.PEN 30 UNIT SC (21:15)
[2023-06-28] VITALS (11 sets, daily range): BP systolic 91–131; BP diastolic 42–77; PULSE 53–90; RESP 16–22; TEMP 35.9–36.3; O2SAT 97–100
[2023-06-28] MEDS: ALBUTEROL INHALER 200 PUFF/INH INHALER INH ×4 (00:10→19:28)
[2023-06-28] MEDS: IPRATROPIUM BROMIDE 200 PUFF/INH INHALER IH ×4 (00:10→19:28)
[2023-06-28] MEDS: CYANOCOBALAMIN (VITAMIN B-12) 500 MCG TABLET 1000 MCG GT (08:23)
[2023-06-28] MEDS: MULTIVIT-MIN/IRON FUM/FOLIC AC 1 EACH TABLET GT (08:24)
[2023-06-28] MEDS: DEXLANSOPRAZOLE 30 MG GT (08:24)
[2023-06-28] MEDS: ATORVASTATIN 40 MG TABLET GT (20:24)
[2023-06-28] MEDS: INSULIN GLARGINE 100 UNIT/ML INSULN.PEN 30 UNIT SC (21:59)
[2023-06-29] VITALS (12 sets, daily range): BP systolic 98–130; BP diastolic 54–78; PULSE 48–700; RESP 16–96; TEMP 36–36.3; O2SAT 95–99
[2023-06-29] MEDS: IPRATROPIUM BROMIDE 200 PUFF/INH INHALER IH ×4 (00:30→19:07)
[2023-06-29] MEDS: ALBUTEROL INHALER 200 PUFF/INH INHALER INH ×4 (00:30→19:07)
[2023-06-29 07:53] LABS: Glucose,Fasting 122 mg/dL (74-106)
[2023-06-29] MEDS: MULTIVIT-MIN/IRON FUM/FOLIC AC 1 EACH TABLET GT (08:27)
[2023-06-29] MEDS: DEXLANSOPRAZOLE 30 MG GT (08:27)
[2023-06-29] MEDS: CYANOCOBALAMIN (VITAMIN B-12) 500 MCG TABLET 1000 MCG GT (08:27)
[2023-06-29] MEDS: CARVEDILOL 3.125 MG TABLET GT (08:27)
[2023-06-29] MEDS: ATORVASTATIN 40 MG TABLET GT (20:38)
[2023-06-29] MEDS: INSULIN GLARGINE 100 UNIT/ML INSULN.PEN 30 UNIT SC (20:44)
[2023-06-30] VITALS (11 sets, daily range): BP systolic 97–136; BP diastolic 57–78; PULSE 50–88; RESP 16–20; TEMP 36–36.3; O2SAT 95–99
[2023-06-30] MEDS: ALBUTEROL INHALER 200 PUFF/INH INHALER INH ×4 (00:15→20:40)
[2023-06-30] MEDS: IPRATROPIUM BROMIDE 200 PUFF/INH INHALER IH ×4 (00:15→20:40)
[2023-06-30] MEDS: CYANOCOBALAMIN (VITAMIN B-12) 500 MCG TABLET 1000 MCG GT (09:45)
[2023-06-30] MEDS: CARVEDILOL 3.125 MG TABLET GT (09:45)
[2023-06-30] MEDS: MULTIVIT-MIN/IRON FUM/FOLIC AC 1 EACH TABLET GT (09:45)
[2023-06-30] MEDS: DEXLANSOPRAZOLE 30 MG GT (09:45)
[2023-06-30] MEDS: ATORVASTATIN 40 MG TABLET GT (20:39)
[2023-06-30] MEDS: INSULIN GLARGINE 100 UNIT/ML INSULN.PEN 30 UNIT SC (20:48)
[2023-07-01] VITALS (9 sets, daily range): BP systolic 93–133; BP diastolic 62–94; PULSE 59–88; RESP 16–20; TEMP 36.1–36.6; O2SAT 97–100
[2023-07-01] MEDS: ALBUTEROL INHALER 200 PUFF/INH INHALER INH ×4 (01:10→18:30)
[2023-07-01] MEDS: IPRATROPIUM BROMIDE 200 PUFF/INH INHALER IH ×5 (01:20→18:30)
[2023-07-01] MEDS: CYANOCOBALAMIN (VITAMIN B-12) 500 MCG TABLET 1000 MCG GT (08:26)
[2023-07-01] MEDS: MULTIVIT-MIN/IRON FUM/FOLIC AC 1 EACH TABLET GT (08:27)
[2023-07-01] MEDS: DEXLANSOPRAZOLE 30 MG GT (08:27)
--- NOTE | 2023-07-01 14:03 | CHAP ---
11:00 AM Visited by spiritual care volunteer Provided prayer for Patient.
[2023-07-01] MEDS: ATORVASTATIN 40 MG TABLET GT (20:47)
[2023-07-01] MEDS: INSULIN GLARGINE 100 UNIT/ML INSULN.PEN 30 UNIT SC (20:49)
[2023-07-02] VITALS (10 sets, daily range): BP systolic 103–130; BP diastolic 37–83; PULSE 55–92; RESP 17–20; TEMP 36.2–36.6; O2SAT 97–100
[2023-07-02] MEDS: IPRATROPIUM BROMIDE 200 PUFF/INH INHALER IH ×4 (01:12→19:06)
[2023-07-02] MEDS: ALBUTEROL INHALER 200 PUFF/INH INHALER INH ×4 (01:12→19:06)
[2023-07-02] MEDS: CARVEDILOL 3.125 MG TABLET GT (08:59)
[2023-07-02] MEDS: CYANOCOBALAMIN (VITAMIN B-12) 500 MCG TABLET 1000 MCG GT (08:59)
[2023-07-02] MEDS: MULTIVIT-MIN/IRON FUM/FOLIC AC 1 EACH TABLET GT (09:00)
[2023-07-02] MEDS: DEXLANSOPRAZOLE 30 MG GT (09:00)
--- NOTE | 2023-07-02 14:38 | PC.SS ---
Resident is laying in bed with head of the bed elevated with call light properly placed. Resident is well groomed showing no signs of distress. Resident will remain in current care as there are no changes in care or condition. Resident will continue to receive daily room visits to monitor moods and behavior.
[2023-07-02] MEDS: ATORVASTATIN 40 MG TABLET GT (20:53)
[2023-07-02] MEDS: INSULIN GLARGINE 100 UNIT/ML INSULN.PEN 30 UNIT SC (20:54)
[2023-07-03] VITALS (8 sets, daily range): BP systolic 102–126; BP diastolic 63–72; PULSE 56–74; RESP 16–20; TEMP 36–36.2; O2SAT 95–99
[2023-07-03] MEDS: IPRATROPIUM BROMIDE 200 PUFF/INH INHALER IH ×4 (00:52→19:35)
[2023-07-03] MEDS: ALBUTEROL INHALER 200 PUFF/INH INHALER INH ×4 (00:52→19:35)
[2023-07-03] MEDS: DEXLANSOPRAZOLE 30 MG GT (09:23)
[2023-07-03] MEDS: MULTIVIT-MIN/IRON FUM/FOLIC AC 1 EACH TABLET GT (09:23)
[2023-07-03] MEDS: CYANOCOBALAMIN (VITAMIN B-12) 500 MCG TABLET 1000 MCG GT (09:23)
--- NOTE | 2023-07-03 20:54 | PD.SAPROG ---
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
[2023-07-03] MEDS: ATORVASTATIN 40 MG TABLET GT (20:55)
[2023-07-03] MEDS: INSULIN GLARGINE 100 UNIT/ML INSULN.PEN 30 UNIT SC (20:56)
[2023-07-04] VITALS (9 sets, daily range): BP systolic 107–130; BP diastolic 57–83; PULSE 40–78; RESP 18–20; TEMP 36–36.6; O2SAT 95–99
[2023-07-04] MEDS: ALBUTEROL INHALER 200 PUFF/INH INHALER INH ×4 (00:28→18:40)
[2023-07-04] MEDS: IPRATROPIUM BROMIDE 200 PUFF/INH INHALER IH ×4 (00:28→18:40)
[2023-07-04] MEDS: CARVEDILOL 3.125 MG TABLET GT (08:06)
[2023-07-04] MEDS: CYANOCOBALAMIN (VITAMIN B-12) 500 MCG TABLET 1000 MCG GT (08:07)
[2023-07-04] MEDS: DEXLANSOPRAZOLE 30 MG GT (08:07)
[2023-07-04] MEDS: MULTIVIT-MIN/IRON FUM/FOLIC AC 1 EACH TABLET GT (08:08)
--- NOTE | 2023-07-04 12:43 | CHAP ---
Patient was visited by the Spiritual Care Volunteer who prayed for them outside of room. (Volunteer was in the hospital from 11:05-12:43)
[2023-07-04] MEDS: INSULIN GLARGINE 100 UNIT/ML INSULN.PEN 30 UNIT SC (21:08)
[2023-07-04] MEDS: ATORVASTATIN 40 MG TABLET GT (21:08)
[2023-07-05] VITALS (9 sets, daily range): BP systolic 94–125; BP diastolic 50–81; PULSE 46–97; RESP 18–20; TEMP 36.2–36.4; O2SAT 97–98
[2023-07-05] MEDS: ALBUTEROL INHALER 200 PUFF/INH INHALER INH ×3 (00:35→13:01)
[2023-07-05] MEDS: IPRATROPIUM BROMIDE 200 PUFF/INH INHALER IH ×4 (00:35→19:26)
[2023-07-05] MEDS: DEXLANSOPRAZOLE 30 MG GT (08:22)
[2023-07-05] MEDS: CYANOCOBALAMIN (VITAMIN B-12) 500 MCG TABLET 1000 MCG GT (08:22)
[2023-07-05] MEDS: CARVEDILOL 3.125 MG TABLET GT (08:22)
[2023-07-05] MEDS: MULTIVIT-MIN/IRON FUM/FOLIC AC 1 EACH TABLET GT (08:23)
[2023-07-05] MEDS: INSULIN GLARGINE 100 UNIT/ML INSULN.PEN 30 UNIT SC (21:24)
[2023-07-05] MEDS: ATORVASTATIN 40 MG TABLET GT (21:24)
[2023-07-06] VITALS (9 sets, daily range): BP systolic 101–131; BP diastolic 58–70; PULSE 49–111; RESP 17–20; TEMP 36.1–36.6; O2SAT 95–98
[2023-07-06] MEDS: IPRATROPIUM BROMIDE 200 PUFF/INH INHALER IH ×3 (00:52→20:10)
[2023-07-06] MEDS: CARVEDILOL 3.125 MG TABLET GT (08:17)
[2023-07-06] MEDS: CYANOCOBALAMIN (VITAMIN B-12) 500 MCG TABLET 1000 MCG GT (08:17)
[2023-07-06] MEDS: DEXLANSOPRAZOLE 30 MG GT (08:18)
[2023-07-06] MEDS: MULTIVIT-MIN/IRON FUM/FOLIC AC 1 EACH TABLET GT (08:18)
[2023-07-06] MEDS: ATORVASTATIN 40 MG TABLET GT (20:10)
[2023-07-06] MEDS: guaiFENesin Liq 100 MG/5 ML LIQUID 300 MG GT (20:17)
[2023-07-06] MEDS: INSULIN GLARGINE 100 UNIT/ML INSULN.PEN 30 UNIT SC (20:19)
[2023-07-07] VITALS (9 sets, daily range): BP systolic 93–124; BP diastolic 48–72; PULSE 48–81; RESP 14–20; TEMP 36.1–36.3; O2SAT 94–98
[2023-07-07] MEDS: IPRATROPIUM BROMIDE 200 PUFF/INH INHALER IH ×4 (01:25→18:10)
[2023-07-07] MEDS: CARVEDILOL 3.125 MG TABLET GT (09:17)
[2023-07-07] MEDS: CYANOCOBALAMIN (VITAMIN B-12) 500 MCG TABLET 1000 MCG GT (09:18)
[2023-07-07] MEDS: DEXLANSOPRAZOLE 30 MG GT (09:18)
[2023-07-07] MEDS: MULTIVIT-MIN/IRON FUM/FOLIC AC 1 EACH TABLET GT (09:18)
[2023-07-07] MEDS: ATORVASTATIN 40 MG TABLET GT (20:44)
[2023-07-07] MEDS: INSULIN GLARGINE 100 UNIT/ML INSULN.PEN 30 UNIT SC (20:48)
--- NOTE | 2023-07-07 22:41 | PD.SAPROG ---
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
[2023-07-08] VITALS (8 sets, daily range): BP systolic 104–153; BP diastolic 57–85; PULSE 60–76; RESP 16–20; TEMP 36.2; O2SAT 96–100
[2023-07-08] MEDS: IPRATROPIUM BROMIDE 200 PUFF/INH INHALER IH ×3 (06:43→18:55)
[2023-07-08] MEDS: ALBUTEROL INHALER 200 PUFF/INH INHALER INH ×3 (06:43→18:55)
[2023-07-08] MEDS: CARVEDILOL 3.125 MG TABLET GT (08:26)
[2023-07-08] MEDS: CYANOCOBALAMIN (VITAMIN B-12) 500 MCG TABLET 1000 MCG GT (08:26)
[2023-07-08] MEDS: DEXLANSOPRAZOLE 30 MG GT (08:26)
[2023-07-08] MEDS: MULTIVIT-MIN/IRON FUM/FOLIC AC 1 EACH TABLET GT (08:27)
--- NOTE | 2023-07-08 13:48 | CHAP ---
11:00 AM Visited by spiritual care volunteer Provided prayer for Patient.
[2023-07-08] MEDS: ATORVASTATIN 40 MG TABLET GT (20:09)
[2023-07-08] MEDS: INSULIN GLARGINE 100 UNIT/ML INSULN.PEN 30 UNIT SC (20:16)
[2023-07-09] VITALS (10 sets, daily range): BP systolic 106–132; BP diastolic 62–85; PULSE 61–92; RESP 14–18; TEMP 35.8–36.1; O2SAT 95–99
[2023-07-09] MEDS: ALBUTEROL INHALER 200 PUFF/INH INHALER INH ×4 (01:00→16:24)
[2023-07-09] MEDS: IPRATROPIUM BROMIDE 200 PUFF/INH INHALER IH ×4 (01:00→16:24)
[2023-07-09] MEDS: CARVEDILOL 3.125 MG TABLET GT (08:27)
[2023-07-09] MEDS: CYANOCOBALAMIN (VITAMIN B-12) 500 MCG TABLET 1000 MCG GT (08:27)
[2023-07-09] MEDS: MULTIVIT-MIN/IRON FUM/FOLIC AC 1 EACH TABLET GT (08:28)
[2023-07-09] MEDS: DEXLANSOPRAZOLE 30 MG GT (08:28)
[2023-07-09] MEDS: ATORVASTATIN 40 MG TABLET GT (20:04)
[2023-07-09] MEDS: INSULIN GLARGINE 100 UNIT/ML INSULN.PEN 30 UNIT SC (20:44)
[2023-07-10] VITALS (8 sets, daily range): BP systolic 106–131; BP diastolic 57–92; PULSE 58–76; RESP 17–20; TEMP 36.1–36.3; O2SAT 95–99
[2023-07-10] MEDS: ALBUTEROL INHALER 200 PUFF/INH INHALER INH ×3 (07:25→18:45)
[2023-07-10] MEDS: IPRATROPIUM BROMIDE 200 PUFF/INH INHALER IH ×3 (07:25→18:45)
[2023-07-10] MEDS: CYANOCOBALAMIN (VITAMIN B-12) 500 MCG TABLET 1000 MCG GT (08:36)
[2023-07-10] MEDS: MULTIVIT-MIN/IRON FUM/FOLIC AC 1 EACH TABLET GT (08:37)
[2023-07-10] MEDS: DEXLANSOPRAZOLE 30 MG GT (08:37)
[2023-07-10] MEDS: guaiFENesin Liq 100 MG/5 ML LIQUID 300 MG GT (08:38)
[2023-07-10] MEDS: ATORVASTATIN 40 MG TABLET GT (20:43)
[2023-07-10] MEDS: INSULIN GLARGINE 100 UNIT/ML INSULN.PEN 30 UNIT SC (20:43)
[2023-07-11] VITALS (9 sets, daily range): BP systolic 104–133; BP diastolic 65–75; PULSE 52–80; RESP 16–20; TEMP 35.9–36.2; O2SAT 95–100
[2023-07-11] MEDS: ALBUTEROL INHALER 200 PUFF/INH INHALER INH ×4 (00:15→18:00)
[2023-07-11] MEDS: IPRATROPIUM BROMIDE 200 PUFF/INH INHALER IH ×4 (00:15→18:00)
[2023-07-11] MEDS: CARVEDILOL 3.125 MG TABLET GT (08:49)
[2023-07-11] MEDS: DEXLANSOPRAZOLE 30 MG GT (08:50)
[2023-07-11] MEDS: MULTIVIT-MIN/IRON FUM/FOLIC AC 1 EACH TABLET GT (08:50)
[2023-07-11] MEDS: CYANOCOBALAMIN (VITAMIN B-12) 500 MCG TABLET 1000 MCG GT (08:50)
[2023-07-11] MEDS: guaiFENesin Liq 100 MG/5 ML LIQUID 300 MG GT (08:51)
--- NOTE | 2023-07-11 10:45 | CHAP ---
Patient was visited by the Spiritual Care Volunteer who prayed for them outside the room. (Volunteer was in the hospital 09:50-10:45)
--- NOTE | 2023-07-11 17:25 | PD.SAPROG ---
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
[2023-07-11] MEDS: ATORVASTATIN 40 MG TABLET GT (20:29)
[2023-07-11] MEDS: INSULIN GLARGINE 100 UNIT/ML INSULN.PEN 30 UNIT SC (20:36)
[2023-07-12] VITALS (9 sets, daily range): BP systolic 102–137; BP diastolic 64–74; PULSE 57–71; RESP 16–20; TEMP 35.6–36.2; O2SAT 95–100
[2023-07-12] MEDS: ALBUTEROL INHALER 200 PUFF/INH INHALER INH ×4 (01:25→17:55)
[2023-07-12] MEDS: IPRATROPIUM BROMIDE 200 PUFF/INH INHALER IH ×4 (01:25→17:55)
[2023-07-12] MEDS: CARVEDILOL 3.125 MG TABLET GT (08:22)
[2023-07-12] MEDS: CYANOCOBALAMIN (VITAMIN B-12) 500 MCG TABLET 1000 MCG GT (08:23)
[2023-07-12] MEDS: DEXLANSOPRAZOLE 30 MG GT (08:24)
[2023-07-12] MEDS: MULTIVIT-MIN/IRON FUM/FOLIC AC 1 EACH TABLET GT (08:24)
[2023-07-12] MEDS: guaiFENesin Liq 100 MG/5 ML LIQUID 300 MG GT (21:47)
[2023-07-12] MEDS: INSULIN GLARGINE 100 UNIT/ML INSULN.PEN 30 UNIT SC (21:47)
[2023-07-12] MEDS: ATORVASTATIN 40 MG TABLET GT (21:47)
[2023-07-13] VITALS (9 sets, daily range): BP systolic 98–128; BP diastolic 52–71; PULSE 56–75; RESP 16–20; TEMP 36.1–36.3; O2SAT 97–100
[2023-07-13] MEDS: IPRATROPIUM BROMIDE 200 PUFF/INH INHALER IH ×4 (00:05→18:03)
[2023-07-13] MEDS: ALBUTEROL INHALER 200 PUFF/INH INHALER INH ×4 (00:05→18:03)
[2023-07-13] MEDS: CYANOCOBALAMIN (VITAMIN B-12) 500 MCG TABLET 1000 MCG GT (08:24)
[2023-07-13] MEDS: CARVEDILOL 3.125 MG TABLET GT (08:24)
[2023-07-13] MEDS: DEXLANSOPRAZOLE 30 MG GT (08:25)
[2023-07-13] MEDS: MULTIVIT-MIN/IRON FUM/FOLIC AC 1 EACH TABLET GT (08:25)
[2023-07-13] MEDS: INSULIN GLARGINE 100 UNIT/ML INSULN.PEN 30 UNIT SC (21:16)
[2023-07-13] MEDS: ATORVASTATIN 40 MG TABLET GT (21:16)
[2023-07-14] VITALS (9 sets, daily range): BP systolic 100–129; BP diastolic 50–84; PULSE 50–80; RESP 16–20; TEMP 36.1–36.4; O2SAT 95–98
[2023-07-14] MEDS: IPRATROPIUM BROMIDE 200 PUFF/INH INHALER IH ×4 (00:10→19:15)
[2023-07-14] MEDS: ALBUTEROL INHALER 200 PUFF/INH INHALER INH ×4 (00:10→19:15)
[2023-07-14] MEDS: CYANOCOBALAMIN (VITAMIN B-12) 500 MCG TABLET 1000 MCG GT (08:24)
[2023-07-14] MEDS: CARVEDILOL 3.125 MG TABLET GT (08:24)
[2023-07-14] MEDS: MAGNESIUM HYDROXIDE 30 ML ORAL SUSP ML GT (08:25)
[2023-07-14] MEDS: DEXLANSOPRAZOLE 30 MG GT (08:25)
[2023-07-14] MEDS: MULTIVIT-MIN/IRON FUM/FOLIC AC 1 EACH TABLET GT (08:25)
[2023-07-14] MEDS: ATORVASTATIN 40 MG TABLET GT (21:07)
[2023-07-14] MEDS: INSULIN GLARGINE 100 UNIT/ML INSULN.PEN 30 UNIT SC (21:55)
[2023-07-15] VITALS (9 sets, daily range): BP systolic 90–122; BP diastolic 59–87; PULSE 48–78; RESP 16–18; TEMP 35.8–36.3; O2SAT 96–98
[2023-07-15] MEDS: IPRATROPIUM BROMIDE 200 PUFF/INH INHALER IH ×4 (00:50→18:40)
[2023-07-15] MEDS: ALBUTEROL INHALER 200 PUFF/INH INHALER INH ×4 (00:50→18:40)
[2023-07-15] MEDS: ACETAMINOPHEN 325 MG TABLET 650 MG GT (08:33)
[2023-07-15] MEDS: MULTIVIT-MIN/IRON FUM/FOLIC AC 1 EACH TABLET GT (08:33)
[2023-07-15] MEDS: guaiFENesin Liq 100 MG/5 ML LIQUID 300 MG GT (08:33)
[2023-07-15] MEDS: CYANOCOBALAMIN (VITAMIN B-12) 500 MCG TABLET 1000 MCG GT (08:33)
[2023-07-15] MEDS: DEXLANSOPRAZOLE 30 MG GT (08:33)
[2023-07-15] MEDS: INSULIN GLARGINE 100 UNIT/ML INSULN.PEN 30 UNIT SC (20:56)
[2023-07-15] MEDS: ATORVASTATIN 40 MG TABLET GT (20:56)
--- NOTE | 2023-07-15 22:00 | PD.SAPROG ---
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
[2023-07-16] VITALS (10 sets, daily range): BP systolic 107–147; BP diastolic 72–83; PULSE 66–79; RESP 15–99; TEMP 36.1–36.4; O2SAT 97–99
[2023-07-16] MEDS: ALBUTEROL INHALER 200 PUFF/INH INHALER INH ×4 (00:55→20:25)
[2023-07-16] MEDS: IPRATROPIUM BROMIDE 200 PUFF/INH INHALER IH ×4 (00:55→20:25)
[2023-07-16] MEDS: guaiFENesin Liq 100 MG/5 ML LIQUID 300 MG GT ×2 (03:30→21:10)
[2023-07-16] MEDS: ACETAMINOPHEN 325 MG TABLET 650 MG GT (03:30)
[2023-07-16] MEDS: CARVEDILOL 3.125 MG TABLET GT (08:43)
[2023-07-16] MEDS: CYANOCOBALAMIN (VITAMIN B-12) 500 MCG TABLET 1000 MCG GT (08:43)
[2023-07-16] MEDS: MULTIVIT-MIN/IRON FUM/FOLIC AC 1 EACH TABLET GT (08:44)
[2023-07-16] MEDS: DEXLANSOPRAZOLE 30 MG GT (08:44)
--- NOTE | 2023-07-16 16:56 | PC.SS ---
Room visit: Resident is laying in bed with head of the bed elevated with call light properly placed with no signs of distress. Resident mood and behavior is adequate, no changes. Resident will remain in current care as this resident is total care and requires 24 hour care. Resident will have all needs met by staff and will be offered daily room visits for any support needed.
[2023-07-16] MEDS: INSULIN GLARGINE 100 UNIT/ML INSULN.PEN 30 UNIT SC (21:09)
[2023-07-16] MEDS: ATORVASTATIN 40 MG TABLET GT (21:09)
[2023-07-17] VITALS (11 sets, daily range): BP systolic 79–123; BP diastolic 52–79; PULSE 65–80; RESP 18–98; TEMP 36.1–36.4; O2SAT 96–100
[2023-07-17] MEDS: ALBUTEROL INHALER 200 PUFF/INH INHALER INH ×4 (01:30→18:50)
[2023-07-17] MEDS: IPRATROPIUM BROMIDE 200 PUFF/INH INHALER IH ×4 (01:30→18:50)
[2023-07-17] MEDS: CARVEDILOL 3.125 MG TABLET GT (08:07)
[2023-07-17] MEDS: DEXLANSOPRAZOLE 30 MG GT (08:08)
[2023-07-17] MEDS: CYANOCOBALAMIN (VITAMIN B-12) 500 MCG TABLET 1000 MCG GT (08:08)
[2023-07-17] MEDS: MULTIVIT-MIN/IRON FUM/FOLIC AC 1 EACH TABLET GT (08:08)
[2023-07-17] MEDS: ATORVASTATIN 40 MG TABLET GT (20:55)
[2023-07-17] MEDS: INSULIN GLARGINE 100 UNIT/ML INSULN.PEN 30 UNIT SC (20:56)
[2023-07-18] VITALS (9 sets, daily range): BP systolic 90–122; BP diastolic 50–76; PULSE 54–78; RESP 18–99; TEMP 36–36.2; O2SAT 96–99
[2023-07-18] MEDS: ALBUTEROL INHALER 200 PUFF/INH INHALER INH ×4 (01:00→19:20)
[2023-07-18] MEDS: IPRATROPIUM BROMIDE 200 PUFF/INH INHALER IH ×3 (01:00→19:20)
[2023-07-18] MEDS: DEXLANSOPRAZOLE 30 MG GT (08:58)
[2023-07-18] MEDS: CYANOCOBALAMIN (VITAMIN B-12) 500 MCG TABLET 1000 MCG GT (08:58)
[2023-07-18] MEDS: MULTIVIT-MIN/IRON FUM/FOLIC AC 1 EACH TABLET GT (08:58)
--- NOTE | 2023-07-18 11:45 | CHAP ---
Patient was prayed for outside of room by the Spiritual Care Volunteer. (Volunteer was in the hospital from 10:24-11:45).
[2023-07-18] MEDS: ATORVASTATIN 40 MG TABLET GT (20:37)
[2023-07-18] MEDS: INSULIN GLARGINE 100 UNIT/ML INSULN.PEN 30 UNIT SC (20:43)
[2023-07-18] MEDS: MAGNESIUM HYDROXIDE 30 ML ORAL SUSP ML GT (20:44)
[2023-07-19] VITALS (9 sets, daily range): BP systolic 97–123; BP diastolic 62–81; PULSE 60–80; RESP 17–97; TEMP 35.8–36.3; O2SAT 96–99
[2023-07-19] MEDS: IPRATROPIUM BROMIDE 200 PUFF/INH INHALER IH ×4 (00:50→20:05)
[2023-07-19] MEDS: ALBUTEROL INHALER 200 PUFF/INH INHALER INH ×4 (00:50→20:05)
[2023-07-19] MEDS: CYANOCOBALAMIN (VITAMIN B-12) 500 MCG TABLET 1000 MCG GT (08:36)
[2023-07-19] MEDS: CARVEDILOL 3.125 MG TABLET GT (08:36)
[2023-07-19] MEDS: DEXLANSOPRAZOLE 30 MG GT (08:36)
[2023-07-19] MEDS: MULTIVIT-MIN/IRON FUM/FOLIC AC 1 EACH TABLET GT (08:37)
--- NOTE | 2023-07-19 18:05 | PD.SAPROG ---
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
[2023-07-19] MEDS: ATORVASTATIN 40 MG TABLET GT (20:05)
[2023-07-19] MEDS: INSULIN GLARGINE 100 UNIT/ML INSULN.PEN 30 UNIT SC (21:21)
[2023-07-19] MEDS: CARBAMIDE PEROXIDE OTIC SOL 15 ML BTL 5 DROP BOTH EARS (21:27)
[2023-07-20] VITALS (9 sets, daily range): BP systolic 91–127; BP diastolic 59–87; PULSE 50–82; RESP 17–98; TEMP 35.9–36.3; O2SAT 94–99
[2023-07-20] MEDS: ALBUTEROL INHALER 200 PUFF/INH INHALER INH ×2 (01:20→19:53)
[2023-07-20] MEDS: IPRATROPIUM BROMIDE 200 PUFF/INH INHALER IH ×4 (01:20→19:53)
[2023-07-20] MEDS: CARVEDILOL 3.125 MG TABLET GT (08:45)
[2023-07-20] MEDS: CARBAMIDE PEROXIDE OTIC SOL 15 ML BTL 5 DROP BOTH EARS ×2 (08:45→21:02)
[2023-07-20] MEDS: CYANOCOBALAMIN (VITAMIN B-12) 500 MCG TABLET 1000 MCG GT (08:46)
[2023-07-20] MEDS: MULTIVIT-MIN/IRON FUM/FOLIC AC 1 EACH TABLET GT (08:47)
[2023-07-20] MEDS: DEXLANSOPRAZOLE 30 MG GT (08:47)
[2023-07-20] MEDS: ATORVASTATIN 40 MG TABLET GT (21:02)
[2023-07-20] MEDS: INSULIN GLARGINE 100 UNIT/ML INSULN.PEN 30 UNIT SC (21:17)
[2023-07-21] VITALS (9 sets, daily range): BP systolic 109–127; BP diastolic 60–89; PULSE 59–86; RESP 16–18; TEMP 35.9–36.4; O2SAT 94–99
[2023-07-21] MEDS: ALBUTEROL INHALER 200 PUFF/INH INHALER INH ×4 (02:03→19:15)
[2023-07-21] MEDS: IPRATROPIUM BROMIDE 200 PUFF/INH INHALER IH ×4 (02:03→19:15)
[2023-07-21] MEDS: DEXLANSOPRAZOLE 30 MG GT (08:24)
[2023-07-21] MEDS: MULTIVIT-MIN/IRON FUM/FOLIC AC 1 EACH TABLET GT (08:24)
[2023-07-21] MEDS: CYANOCOBALAMIN (VITAMIN B-12) 500 MCG TABLET 1000 MCG GT (08:24)
[2023-07-21] MEDS: CARBAMIDE PEROXIDE OTIC SOL 15 ML BTL 5 DROP BOTH EARS ×2 (08:25→21:06)
--- NOTE | 2023-07-21 14:25 | PC.SS ---
Room visit: Resident is laying in bed with head of the bed elevated, resident has call light properly placed with no no signs of distress. Resident will remain in current care as there are no changes in care or condition. Resident is total care, all needs to be met in facility for LTC. Resident is unable to return home due to family unable to care for at home. Resident will continue to have daily room visit and will be offered support visit as needed.
[2023-07-21] MEDS: ATORVASTATIN 40 MG TABLET GT (21:06)
[2023-07-21] MEDS: INSULIN GLARGINE 100 UNIT/ML INSULN.PEN 30 UNIT SC (21:07)
[2023-07-22] VITALS (9 sets, daily range): BP systolic 92–151; BP diastolic 52–72; PULSE 52–93; RESP 16–20; TEMP 36.1–36.4; O2SAT 96–100
[2023-07-22] MEDS: ALBUTEROL INHALER 200 PUFF/INH INHALER INH ×4 (00:20→19:40)
[2023-07-22] MEDS: IPRATROPIUM BROMIDE 200 PUFF/INH INHALER IH ×4 (00:20→19:40)
[2023-07-22] MEDS: CARBAMIDE PEROXIDE OTIC SOL 15 ML BTL 5 DROP BOTH EARS ×2 (08:27→20:43)
[2023-07-22] MEDS: CYANOCOBALAMIN (VITAMIN B-12) 500 MCG TABLET 1000 MCG GT (08:28)
[2023-07-22] MEDS: MULTIVIT-MIN/IRON FUM/FOLIC AC 1 EACH TABLET GT (08:29)
[2023-07-22] MEDS: DEXLANSOPRAZOLE 30 MG GT (08:29)
[2023-07-22] MEDS: ATORVASTATIN 40 MG TABLET GT (20:42)
[2023-07-22] MEDS: INSULIN GLARGINE 100 UNIT/ML INSULN.PEN 30 UNIT SC (20:47)
[2023-07-23] VITALS (11 sets, daily range): BP systolic 98–125; BP diastolic 56–73; PULSE 50–89; RESP 16–20; TEMP 36–36.6; O2SAT 95–100
[2023-07-23] MEDS: IPRATROPIUM BROMIDE 200 PUFF/INH INHALER IH ×4 (00:40→19:04)
[2023-07-23] MEDS: ALBUTEROL INHALER 200 PUFF/INH INHALER INH ×4 (00:40→19:04)
[2023-07-23] MEDS: CARVEDILOL 3.125 MG TABLET GT (09:50)
[2023-07-23] MEDS: CYANOCOBALAMIN (VITAMIN B-12) 500 MCG TABLET 1000 MCG GT (09:51)
[2023-07-23] MEDS: DEXLANSOPRAZOLE 30 MG GT (09:51)
[2023-07-23] MEDS: MULTIVIT-MIN/IRON FUM/FOLIC AC 1 EACH TABLET GT (09:52)
--- NOTE | 2023-07-23 14:45 | PD.SAPROG ---
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
[2023-07-23] MEDS: ATORVASTATIN 40 MG TABLET GT (20:08)
[2023-07-23] MEDS: INSULIN GLARGINE 100 UNIT/ML INSULN.PEN 30 UNIT SC (20:57)
[2023-07-24] VITALS (9 sets, daily range): BP systolic 105–141; BP diastolic 47–76; PULSE 55–76; RESP 17–20; TEMP 36.1–36.3; O2SAT 92–99
[2023-07-24] MEDS: IPRATROPIUM BROMIDE 200 PUFF/INH INHALER IH ×3 (00:15→20:01)
[2023-07-24] MEDS: ALBUTEROL INHALER 200 PUFF/INH INHALER INH ×4 (00:15→19:30)
[2023-07-24] MEDS: CARVEDILOL 3.125 MG TABLET GT (08:05)
[2023-07-24] MEDS: MULTIVIT-MIN/IRON FUM/FOLIC AC 1 EACH TABLET GT (08:05)
[2023-07-24] MEDS: DEXLANSOPRAZOLE 30 MG GT (08:05)
[2023-07-24] MEDS: CYANOCOBALAMIN (VITAMIN B-12) 500 MCG TABLET 1000 MCG GT (08:05)
[2023-07-24] MEDS: ATORVASTATIN 40 MG TABLET GT (20:41)
[2023-07-24] MEDS: INSULIN GLARGINE 100 UNIT/ML INSULN.PEN 30 UNIT SC (20:57)
[2023-07-25] VITALS (9 sets, daily range): BP systolic 97–156; BP diastolic 60–86; PULSE 44–87; RESP 17–20; TEMP 35.9–36.3; O2SAT 97–100
[2023-07-25] MEDS: ALBUTEROL INHALER 200 PUFF/INH INHALER INH ×4 (00:20→18:30)
[2023-07-25] MEDS: IPRATROPIUM BROMIDE 200 PUFF/INH INHALER IH ×4 (00:20→18:30)
[2023-07-25] MEDS: CYANOCOBALAMIN (VITAMIN B-12) 500 MCG TABLET 1000 MCG GT (09:52)
[2023-07-25] MEDS: CARVEDILOL 3.125 MG TABLET GT (09:52)
[2023-07-25] MEDS: DEXLANSOPRAZOLE 30 MG GT (09:52)
[2023-07-25] MEDS: MULTIVIT-MIN/IRON FUM/FOLIC AC 1 EACH TABLET GT (09:52)
--- NOTE | 2023-07-25 10:29 | CHAP ---
Patient was visited by the Spiritual Care Volunteer who prayed for them. (Volunteer was in the hospital from 09:00-10:29).
[2023-07-25] MEDS: INSULIN GLARGINE 100 UNIT/ML INSULN.PEN 30 UNIT SC (20:34)
[2023-07-25] MEDS: ATORVASTATIN 40 MG TABLET GT (20:34)
[2023-07-26] VITALS (9 sets, daily range): BP systolic 92–122; BP diastolic 52–75; PULSE 53–72; RESP 17–20; TEMP 35.9–36.5; O2SAT 97–100
[2023-07-26] MEDS: ALBUTEROL INHALER 200 PUFF/INH INHALER INH ×4 (01:10→18:03)
[2023-07-26] MEDS: IPRATROPIUM BROMIDE 200 PUFF/INH INHALER IH ×4 (01:10→18:03)
[2023-07-26] MEDS: CARVEDILOL 3.125 MG TABLET GT (09:50)
[2023-07-26] MEDS: MULTIVIT-MIN/IRON FUM/FOLIC AC 1 EACH TABLET GT (09:51)
[2023-07-26] MEDS: CYANOCOBALAMIN (VITAMIN B-12) 500 MCG TABLET 1000 MCG GT (09:51)
[2023-07-26] MEDS: DEXLANSOPRAZOLE 30 MG GT (09:51)
[2023-07-26] MEDS: ATORVASTATIN 40 MG TABLET GT (21:02)
[2023-07-26] MEDS: INSULIN GLARGINE 100 UNIT/ML INSULN.PEN 30 UNIT SC (21:02)
[2023-07-26] MEDS: guaiFENesin Liq 100 MG/5 ML LIQUID 300 MG GT (21:02)
[2023-07-27] VITALS (9 sets, daily range): BP systolic 97–128; BP diastolic 63–83; PULSE 50–80; RESP 16–20; TEMP 36.1–36.3; O2SAT 97–100
[2023-07-27] MEDS: ALBUTEROL INHALER 200 PUFF/INH INHALER INH ×3 (07:45→19:00)
[2023-07-27] MEDS: IPRATROPIUM BROMIDE 200 PUFF/INH INHALER IH ×3 (07:48→19:00)
[2023-07-27] MEDS: MULTIVIT-MIN/IRON FUM/FOLIC AC 1 EACH TABLET GT (08:30)
[2023-07-27] MEDS: CARVEDILOL 3.125 MG TABLET GT (08:30)
[2023-07-27] MEDS: CYANOCOBALAMIN (VITAMIN B-12) 500 MCG TABLET 1000 MCG GT (08:30)
[2023-07-27] MEDS: DEXLANSOPRAZOLE 30 MG GT (08:30)
--- NOTE | 2023-07-27 16:20 | PD.SAPROG ---
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
[2023-07-27] MEDS: ATORVASTATIN 40 MG TABLET GT (21:05)
[2023-07-27] MEDS: INSULIN GLARGINE 100 UNIT/ML INSULN.PEN 30 UNIT SC (21:05)
[2023-07-28] VITALS (9 sets, daily range): BP systolic 109–156; BP diastolic 65–83; PULSE 62–94; RESP 17–20; TEMP 36.1–36.4; O2SAT 96–100
[2023-07-28] MEDS: IPRATROPIUM BROMIDE 200 PUFF/INH INHALER IH ×4 (00:25→19:59)
[2023-07-28] MEDS: ALBUTEROL INHALER 200 PUFF/INH INHALER INH ×4 (00:25→19:59)
[2023-07-28] MEDS: CARVEDILOL 3.125 MG TABLET GT (08:30)
[2023-07-28] MEDS: CYANOCOBALAMIN (VITAMIN B-12) 500 MCG TABLET 1000 MCG GT (08:30)
[2023-07-28] MEDS: MULTIVIT-MIN/IRON FUM/FOLIC AC 1 EACH TABLET GT (08:31)
[2023-07-28] MEDS: DEXLANSOPRAZOLE 30 MG GT (08:31)
[2023-07-28] MEDS: INSULIN GLARGINE 100 UNIT/ML INSULN.PEN 30 UNIT SC (21:00)
[2023-07-28] MEDS: guaiFENesin Liq 100 MG/5 ML LIQUID 300 MG GT (21:10)
[2023-07-28] MEDS: ATORVASTATIN 40 MG TABLET GT (21:10)
--- NOTE | 2023-07-28 22:14 | PC.CWCCOMPLE ---
Civil Engineering Teacher Pharmacist monthly MRR
[2023-07-29] VITALS (9 sets, daily range): BP systolic 91–131; BP diastolic 58–69; PULSE 55–84; RESP 16–20; TEMP 36.1; O2SAT 97–99
[2023-07-29] MEDS: IPRATROPIUM BROMIDE 200 PUFF/INH INHALER IH ×4 (01:21→20:10)
[2023-07-29] MEDS: ALBUTEROL INHALER 200 PUFF/INH INHALER INH ×4 (01:21→20:10)
[2023-07-29] MEDS: CYANOCOBALAMIN (VITAMIN B-12) 500 MCG TABLET 1000 MCG GT (08:32)
[2023-07-29] MEDS: MULTIVIT-MIN/IRON FUM/FOLIC AC 1 EACH TABLET GT (08:32)
[2023-07-29] MEDS: DEXLANSOPRAZOLE 30 MG GT (08:32)
--- NOTE | 2023-07-29 09:56 | PD.SAPROG ---
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
[2023-07-29] MEDS: ATORVASTATIN 40 MG TABLET GT (20:37)
[2023-07-29] MEDS: INSULIN GLARGINE 100 UNIT/ML INSULN.PEN 30 UNIT SC (20:45)
[2023-07-30] VITALS (9 sets, daily range): BP systolic 107–147; BP diastolic 58–80; PULSE 56–106; RESP 16–20; TEMP 36.1–36.4; O2SAT 95–98
[2023-07-30] MEDS: ALBUTEROL INHALER 200 PUFF/INH INHALER INH ×4 (00:21→19:21)
[2023-07-30] MEDS: IPRATROPIUM BROMIDE 200 PUFF/INH INHALER IH ×4 (00:21→19:21)
[2023-07-30 06:31] LABS: Glucose,Fasting 126 mg/dL (74-106)
[2023-07-30] MEDS: CARVEDILOL 3.125 MG TABLET GT (08:21)
[2023-07-30] MEDS: DEXLANSOPRAZOLE 30 MG GT (08:29)
[2023-07-30] MEDS: CYANOCOBALAMIN (VITAMIN B-12) 500 MCG TABLET 1000 MCG GT (08:29)
[2023-07-30] MEDS: MULTIVIT-MIN/IRON FUM/FOLIC AC 1 EACH TABLET GT (08:29)
--- NOTE | 2023-07-30 10:13 | PC.NURSE ---
made aware of fasting glucose results, no new orders at this time.
--- NOTE | 2023-07-30 15:17 | PC.SS ---
Resident is laying in bed with head of the bed elevated with call light properly placed with no signs of distress. Resident is well groomed and appears comfortable. Resident is total care unable to make needs known, due to heavy care regimen family is unable to care for resident at home. Resident has no changes in care or condition, resident to remain in current care and continue to be evaluated as appropriate for DC to lower level of care.
[2023-07-30] MEDS: ATORVASTATIN 40 MG TABLET GT (20:53)
[2023-07-30] MEDS: MAGNESIUM HYDROXIDE 30 ML ORAL SUSP ML GT (20:54)
[2023-07-31] VITALS (9 sets, daily range): BP systolic 100–168; BP diastolic 53–81; PULSE 63–82; RESP 18–20; TEMP 36–36.4; O2SAT 93–100
[2023-07-31] MEDS: IPRATROPIUM BROMIDE 200 PUFF/INH INHALER IH ×4 (01:54→18:31)
[2023-07-31] MEDS: ALBUTEROL INHALER 200 PUFF/INH INHALER INH ×4 (01:54→18:31)
[2023-07-31] MEDS: DEXLANSOPRAZOLE 30 MG GT (08:35)
[2023-07-31] MEDS: CYANOCOBALAMIN (VITAMIN B-12) 500 MCG TABLET 1000 MCG GT (08:35)
[2023-07-31] MEDS: CARVEDILOL 3.125 MG TABLET GT (08:35)
[2023-07-31] MEDS: MULTIVIT-MIN/IRON FUM/FOLIC AC 1 EACH TABLET GT (08:36)
[2023-07-31] MEDS: ATORVASTATIN 40 MG TABLET GT (20:23)
[2023-07-31] MEDS: INSULIN GLARGINE 100 UNIT/ML INSULN.PEN 30 UNIT SC (21:39)
[2023-08-01] VITALS (9 sets, daily range): BP systolic 99–129; BP diastolic 57–69; PULSE 51–79; RESP 16–20; TEMP 35.9–36.1; O2SAT 95–99
[2023-08-01] MEDS: ALBUTEROL INHALER 200 PUFF/INH INHALER INH ×3 (00:26→18:50)
[2023-08-01] MEDS: IPRATROPIUM BROMIDE 200 PUFF/INH INHALER IH ×3 (00:26→18:50)
[2023-08-01] MEDS: CARVEDILOL 3.125 MG TABLET GT (08:27)
[2023-08-01] MEDS: CYANOCOBALAMIN (VITAMIN B-12) 500 MCG TABLET 1000 MCG GT (08:28)
[2023-08-01] MEDS: MULTIVIT-MIN/IRON FUM/FOLIC AC 1 EACH TABLET GT (08:28)
[2023-08-01] MEDS: DEXLANSOPRAZOLE 30 MG GT (08:28)
--- NOTE | 2023-08-01 10:44 | CHAP ---
Patient was visited by the Spiritual Care Volunteer who prayed for them. (Volunteer was in [facility] from 9:35-10:44).
--- NOTE | 2023-08-01 12:55 | CHAP ---
Patient was visited by the Spiritual Care Volunteer who prayed for them. (Volunteer was in [facility] from 10:15-12:55).
[2023-08-01] MEDS: ATORVASTATIN 40 MG TABLET GT (20:24)
[2023-08-01] MEDS: ACETAMINOPHEN 325 MG TABLET 650 MG GT (20:25)
[2023-08-01] MEDS: INSULIN GLARGINE 100 UNIT/ML INSULN.PEN 30 UNIT SC (21:23)
[2023-08-02] VITALS (9 sets, daily range): BP systolic 94–130; BP diastolic 47–79; PULSE 43–74; RESP 16–20; TEMP 35.9–36.3; O2SAT 95–98
[2023-08-02] MEDS: ALBUTEROL INHALER 200 PUFF/INH INHALER INH ×4 (00:22→20:15)
[2023-08-02] MEDS: IPRATROPIUM BROMIDE 200 PUFF/INH INHALER IH ×4 (00:22→20:15)
[2023-08-02] MEDS: DEXLANSOPRAZOLE 30 MG GT (09:21)
[2023-08-02] MEDS: CYANOCOBALAMIN (VITAMIN B-12) 500 MCG TABLET 1000 MCG GT (09:21)
[2023-08-02] MEDS: MULTIVIT-MIN/IRON FUM/FOLIC AC 1 EACH TABLET GT (09:22)
--- NOTE | 2023-08-02 18:28 | PD.SAPROG ---
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
[2023-08-02] MEDS: ATORVASTATIN 40 MG TABLET GT (21:07)
[2023-08-02] MEDS: INSULIN GLARGINE 100 UNIT/ML INSULN.PEN 30 UNIT SC (21:23)
[2023-08-03] VITALS (9 sets, daily range): BP systolic 101–137; BP diastolic 67–79; PULSE 61–80; RESP 16–20; TEMP 36.2–36.8; O2SAT 96–100
[2023-08-03] MEDS: IPRATROPIUM BROMIDE 200 PUFF/INH INHALER IH ×3 (00:32→12:51)
[2023-08-03] MEDS: ALBUTEROL INHALER 200 PUFF/INH INHALER INH ×3 (00:32→12:50)
[2023-08-03] MEDS: CYANOCOBALAMIN (VITAMIN B-12) 500 MCG TABLET 1000 MCG GT (08:32)
[2023-08-03] MEDS: CARVEDILOL 3.125 MG TABLET GT (08:32)
[2023-08-03] MEDS: MULTIVIT-MIN/IRON FUM/FOLIC AC 1 EACH TABLET GT (08:33)
[2023-08-03] MEDS: DEXLANSOPRAZOLE 30 MG GT (08:33)
[2023-08-03] MEDS: INSULIN GLARGINE 100 UNIT/ML INSULN.PEN 30 UNIT SC (20:37)
[2023-08-03] MEDS: ATORVASTATIN 40 MG TABLET GT (20:37)
[2023-08-04] VITALS (7 sets, daily range): BP systolic 119–137; BP diastolic 61–80; PULSE 63–81; RESP 17–20; TEMP 35.9–36.7; O2SAT 97–98
[2023-08-04] MEDS: ALBUTEROL INHALER 200 PUFF/INH INHALER INH ×3 (07:10→19:10)
[2023-08-04] MEDS: IPRATROPIUM BROMIDE 200 PUFF/INH INHALER IH ×3 (07:10→19:10)
[2023-08-04] MEDS: CARVEDILOL 3.125 MG TABLET GT (08:16)
[2023-08-04] MEDS: CYANOCOBALAMIN (VITAMIN B-12) 500 MCG TABLET 1000 MCG GT (08:17)
[2023-08-04] MEDS: MULTIVIT-MIN/IRON FUM/FOLIC AC 1 EACH TABLET GT (08:18)
[2023-08-04] MEDS: DEXLANSOPRAZOLE 30 MG GT (08:18)
[2023-08-04] MEDS: ATORVASTATIN 40 MG TABLET GT (20:23)
[2023-08-04] MEDS: INSULIN GLARGINE 100 UNIT/ML INSULN.PEN 30 UNIT SC (20:23)
[2023-08-04] MEDS: MAGNESIUM HYDROXIDE 30 ML ORAL SUSP ML GT (21:30)
[2023-08-05] VITALS (9 sets, daily range): BP systolic 93–158; BP diastolic 45–78; PULSE 65–76; RESP 16–18; TEMP 36–36.8; O2SAT 93–100
[2023-08-05] MEDS: ALBUTEROL INHALER 200 PUFF/INH INHALER INH ×4 (01:04→18:42)
[2023-08-05] MEDS: IPRATROPIUM BROMIDE 200 PUFF/INH INHALER IH ×4 (01:04→18:42)
[2023-08-05] MEDS: CARVEDILOL 3.125 MG TABLET GT (08:39)
[2023-08-05] MEDS: MULTIVIT-MIN/IRON FUM/FOLIC AC 1 EACH TABLET GT (08:40)
[2023-08-05] MEDS: DEXLANSOPRAZOLE 30 MG GT (08:40)
[2023-08-05] MEDS: CYANOCOBALAMIN (VITAMIN B-12) 500 MCG TABLET 1000 MCG GT (08:40)
--- NOTE | 2023-08-05 14:40 | CHAP ---
10:30 AM Visited by spiritual care volunteer Provided prayer for Patient.
[2023-08-05] MEDS: ATORVASTATIN 40 MG TABLET GT (20:41)
[2023-08-05] MEDS: INSULIN GLARGINE 100 UNIT/ML INSULN.PEN 30 UNIT SC (20:41)
[2023-08-05] MEDS: ACETAMINOPHEN 325 MG TABLET 650 MG GT (20:42)
[2023-08-06] VITALS (9 sets, daily range): BP systolic 102–122; BP diastolic 55–77; PULSE 50–76; RESP 16–20; TEMP 36.1–36.4; O2SAT 94–99
[2023-08-06] MEDS: ALBUTEROL INHALER 200 PUFF/INH INHALER INH ×4 (00:39→18:25)
[2023-08-06] MEDS: IPRATROPIUM BROMIDE 200 PUFF/INH INHALER IH ×4 (00:39→18:25)
[2023-08-06] MEDS: CARVEDILOL 3.125 MG TABLET GT (09:15)
[2023-08-06] MEDS: DEXLANSOPRAZOLE 30 MG GT (09:16)
[2023-08-06] MEDS: MULTIVIT-MIN/IRON FUM/FOLIC AC 1 EACH TABLET GT (09:16)
[2023-08-06] MEDS: CYANOCOBALAMIN (VITAMIN B-12) 500 MCG TABLET 1000 MCG GT (09:16)
--- NOTE | 2023-08-06 16:26 | PC.SS ---
Room visit: Resident is laying in bed with head of the bed elevated with call light properly placed with no debbie of distress. Resident has no changes in care or condition, resident will remain in current care due to heavy and complicated care regimen. Family visits but unable to care for resident at home. SSD will continue to monitor resident for any changes in mood or behavior.
[2023-08-06] MEDS: ATORVASTATIN 40 MG TABLET GT (20:42)
[2023-08-06] MEDS: INSULIN GLARGINE 100 UNIT/ML INSULN.PEN 30 UNIT SC (20:42)
[2023-08-06] MEDS: guaiFENesin Liq 100 MG/5 ML LIQUID 300 MG GT (21:29)
[2023-08-06] MEDS: ACETAMINOPHEN 325 MG TABLET 650 MG GT (22:06)
--- NOTE | 2023-08-06 22:22 | PD.SAPROG ---
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
[2023-08-07] VITALS (9 sets, daily range): BP systolic 90–158; BP diastolic 48–83; PULSE 56–82; RESP 17–20; TEMP 35.9–36.4; O2SAT 95–99
[2023-08-07] MEDS: IPRATROPIUM BROMIDE 200 PUFF/INH INHALER IH ×4 (00:50→19:18)
[2023-08-07] MEDS: ALBUTEROL INHALER 200 PUFF/INH INHALER INH ×4 (00:50→19:18)
[2023-08-07] MEDS: DEXLANSOPRAZOLE 30 MG GT (08:24)
[2023-08-07] MEDS: CYANOCOBALAMIN (VITAMIN B-12) 500 MCG TABLET 1000 MCG GT (08:24)
[2023-08-07] MEDS: MULTIVIT-MIN/IRON FUM/FOLIC AC 1 EACH TABLET GT (08:24)
[2023-08-07] MEDS: CARVEDILOL 3.125 MG TABLET GT (08:24)
[2023-08-07] MEDS: INSULIN GLARGINE 100 UNIT/ML INSULN.PEN 30 UNIT SC (21:09)
[2023-08-07] MEDS: ATORVASTATIN 40 MG TABLET GT (21:09)
[2023-08-08] VITALS (8 sets, daily range): BP systolic 103–155; BP diastolic 60–78; PULSE 55–84; RESP 18–20; TEMP 36.1–36.4; O2SAT 95–96
[2023-08-08] MEDS: ALBUTEROL INHALER 200 PUFF/INH INHALER INH ×4 (01:15→20:15)
[2023-08-08] MEDS: IPRATROPIUM BROMIDE 200 PUFF/INH INHALER IH ×4 (01:15→20:15)
[2023-08-08] MEDS: CARVEDILOL 3.125 MG TABLET GT (08:55)
[2023-08-08] MEDS: CYANOCOBALAMIN (VITAMIN B-12) 500 MCG TABLET 1000 MCG GT (08:56)
[2023-08-08] MEDS: MULTIVIT-MIN/IRON FUM/FOLIC AC 1 EACH TABLET GT (08:58)
[2023-08-08] MEDS: DEXLANSOPRAZOLE 30 MG GT (08:58)
[2023-08-08] MEDS: guaiFENesin Liq 100 MG/5 ML LIQUID 300 MG GT (08:58)
[2023-08-08] MEDS: ATORVASTATIN 40 MG TABLET GT (21:14)
[2023-08-08] MEDS: INSULIN GLARGINE 100 UNIT/ML INSULN.PEN 30 UNIT SC (21:14)
[2023-08-09] VITALS (9 sets, daily range): BP systolic 119–134; BP diastolic 65–82; PULSE 65–83; RESP 16–20; TEMP 35.9–36.3; O2SAT 95–99
[2023-08-09] MEDS: ALBUTEROL INHALER 200 PUFF/INH INHALER INH ×4 (00:35→20:43)
[2023-08-09] MEDS: IPRATROPIUM BROMIDE 200 PUFF/INH INHALER IH ×4 (00:35→20:43)
[2023-08-09] MEDS: DEXLANSOPRAZOLE 30 MG GT (08:50)
[2023-08-09] MEDS: CARVEDILOL 3.125 MG TABLET GT (08:50)
[2023-08-09] MEDS: CYANOCOBALAMIN (VITAMIN B-12) 500 MCG TABLET 1000 MCG GT (08:51)
[2023-08-09] MEDS: MULTIVIT-MIN/IRON FUM/FOLIC AC 1 EACH TABLET GT (08:51)
[2023-08-09] MEDS: ATORVASTATIN 40 MG TABLET GT (20:23)
[2023-08-09] MEDS: INSULIN GLARGINE 100 UNIT/ML INSULN.PEN 30 UNIT SC (21:22)
[2023-08-10] VITALS (8 sets, daily range): BP systolic 95–137; BP diastolic 62–84; PULSE 50–77; RESP 16–20; TEMP 35.9–36.6; O2SAT 96–99
[2023-08-10] MEDS: IPRATROPIUM BROMIDE 200 PUFF/INH INHALER IH ×4 (00:35→19:00)
[2023-08-10] MEDS: ALBUTEROL INHALER 200 PUFF/INH INHALER INH ×4 (00:35→19:00)
[2023-08-10] MEDS: CYANOCOBALAMIN (VITAMIN B-12) 500 MCG TABLET 1000 MCG GT (08:36)
[2023-08-10] MEDS: MULTIVIT-MIN/IRON FUM/FOLIC AC 1 EACH TABLET GT (08:37)
[2023-08-10] MEDS: DEXLANSOPRAZOLE 30 MG GT (08:37)
[2023-08-10] MEDS: MAGNESIUM HYDROXIDE 30 ML ORAL SUSP ML GT (08:38)
[2023-08-10] MEDS: INSULIN GLARGINE 100 UNIT/ML INSULN.PEN 30 UNIT SC (20:24)
[2023-08-10] MEDS: ATORVASTATIN 40 MG TABLET GT (20:24)
[2023-08-10] MEDS: ACETAMINOPHEN 325 MG TABLET 650 MG GT (20:25)
[2023-08-10] MEDS: guaiFENesin Liq 100 MG/5 ML LIQUID 300 MG GT (20:26)
--- NOTE | 2023-08-10 21:22 | PD.SAPROG ---
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
[2023-08-11] VITALS (9 sets, daily range): BP systolic 90–128; BP diastolic 51–76; PULSE 56–73; RESP 16–20; TEMP 36.1–36.3; O2SAT 97–99
[2023-08-11] MEDS: ALBUTEROL INHALER 200 PUFF/INH INHALER INH ×4 (00:30→18:30)
[2023-08-11] MEDS: IPRATROPIUM BROMIDE 200 PUFF/INH INHALER IH ×4 (00:30→18:30)
[2023-08-11] MEDS: CARVEDILOL 3.125 MG TABLET GT (09:31)
[2023-08-11] MEDS: DEXLANSOPRAZOLE 30 MG GT (09:32)
[2023-08-11] MEDS: MULTIVIT-MIN/IRON FUM/FOLIC AC 1 EACH TABLET GT (09:32)
[2023-08-11] MEDS: CYANOCOBALAMIN (VITAMIN B-12) 500 MCG TABLET 1000 MCG GT (09:32)
[2023-08-11] MEDS: INSULIN GLARGINE 100 UNIT/ML INSULN.PEN 30 UNIT SC (20:23)
[2023-08-11] MEDS: ATORVASTATIN 40 MG TABLET GT (20:24)
[2023-08-12] VITALS (9 sets, daily range): BP systolic 85–126; BP diastolic 54–82; PULSE 45–73; RESP 14–20; TEMP 36–36.2; O2SAT 96–100
[2023-08-12] MEDS: ALBUTEROL INHALER 200 PUFF/INH INHALER INH ×4 (01:00→18:30)
[2023-08-12] MEDS: IPRATROPIUM BROMIDE 200 PUFF/INH INHALER IH ×4 (01:00→18:30)
[2023-08-12] MEDS: guaiFENesin Liq 100 MG/5 ML LIQUID 300 MG GT (04:15)
[2023-08-12] MEDS: CARVEDILOL 3.125 MG TABLET GT (08:43)
[2023-08-12] MEDS: CYANOCOBALAMIN (VITAMIN B-12) 500 MCG TABLET 1000 MCG GT (08:44)
[2023-08-12] MEDS: MULTIVIT-MIN/IRON FUM/FOLIC AC 1 EACH TABLET GT (08:44)
[2023-08-12] MEDS: DEXLANSOPRAZOLE 30 MG GT (08:44)
--- NOTE | 2023-08-12 13:43 | CHAP ---
11:00 AM Visited by spiritual care volunteer Provided prayer for Patient.
[2023-08-12] MEDS: ATORVASTATIN 40 MG TABLET GT (20:21)
[2023-08-12] MEDS: INSULIN GLARGINE 100 UNIT/ML INSULN.PEN 30 UNIT SC (20:32)
[2023-08-13] VITALS (9 sets, daily range): BP systolic 95–134; BP diastolic 55–84; PULSE 51–76; RESP 14–19; TEMP 36.3–36.8; O2SAT 96–98
[2023-08-13] MEDS: ALBUTEROL INHALER 200 PUFF/INH INHALER INH ×4 (01:00→18:26)
[2023-08-13] MEDS: IPRATROPIUM BROMIDE 200 PUFF/INH INHALER IH ×4 (01:00→18:26)
[2023-08-13] MEDS: CARVEDILOL 3.125 MG TABLET GT (09:09)
[2023-08-13] MEDS: CYANOCOBALAMIN (VITAMIN B-12) 500 MCG TABLET 1000 MCG GT (09:10)
[2023-08-13] MEDS: MULTIVIT-MIN/IRON FUM/FOLIC AC 1 EACH TABLET GT (09:10)
[2023-08-13] MEDS: DEXLANSOPRAZOLE 30 MG GT (09:10)
--- NOTE | 2023-08-13 10:47 | PC.SS ---
Room visit: Resident is laying in bed with head of the bed elevated with call light properly placed with no signs of distress. Resident will remain in current care as there are no changes in care or condition. This SSD will continue to make daily contact with resident and offer emotional support.
[2023-08-13] MEDS: ATORVASTATIN 40 MG TABLET GT (21:20)
[2023-08-13] MEDS: INSULIN GLARGINE 100 UNIT/ML INSULN.PEN 30 UNIT SC (21:30)
[2023-08-14] VITALS (7 sets, daily range): BP systolic 96–147; BP diastolic 61–73; PULSE 56–67; RESP 16–18; TEMP 35.9–36.3; O2SAT 96–99
[2023-08-14] MEDS: ALBUTEROL INHALER 200 PUFF/INH INHALER INH ×4 (00:56→18:45)
[2023-08-14] MEDS: IPRATROPIUM BROMIDE 200 PUFF/INH INHALER IH ×4 (00:56→18:45)
[2023-08-14] MEDS: DEXLANSOPRAZOLE 30 MG GT (08:53)
[2023-08-14] MEDS: CYANOCOBALAMIN (VITAMIN B-12) 500 MCG TABLET 1000 MCG GT (08:53)
[2023-08-14] MEDS: MULTIVIT-MIN/IRON FUM/FOLIC AC 1 EACH TABLET GT (08:53)
[2023-08-14] MEDS: ATORVASTATIN 40 MG TABLET GT (20:40)
[2023-08-14] MEDS: INSULIN GLARGINE 100 UNIT/ML INSULN.PEN 30 UNIT SC (20:40)
--- NOTE | 2023-08-14 20:53 | PD.SAPROG ---
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
[2023-08-15] VITALS (8 sets, daily range): BP systolic 89–136; BP diastolic 51–84; PULSE 43–79; RESP 16–20; TEMP 35.9–36.3; O2SAT 97–100
[2023-08-15] MEDS: IPRATROPIUM BROMIDE 200 PUFF/INH INHALER IH ×4 (01:08→19:01)
[2023-08-15] MEDS: ALBUTEROL INHALER 200 PUFF/INH INHALER INH ×4 (01:08→19:01)
[2023-08-15] MEDS: CYANOCOBALAMIN (VITAMIN B-12) 500 MCG TABLET 1000 MCG GT (08:09)
[2023-08-15] MEDS: MULTIVIT-MIN/IRON FUM/FOLIC AC 1 EACH TABLET GT (08:10)
[2023-08-15] MEDS: DEXLANSOPRAZOLE 30 MG GT (08:10)
--- NOTE | 2023-08-15 12:51 | CHAP ---
Patient was visited by the Spiritual Care Volunteer who prayed outside room. (Volunteer was in the hospital from 10:32-12:51)
[2023-08-15] MEDS: ATORVASTATIN 40 MG TABLET GT (20:23)
[2023-08-15] MEDS: INSULIN GLARGINE 100 UNIT/ML INSULN.PEN 30 UNIT SC (20:24)
[2023-08-16] VITALS (10 sets, daily range): BP systolic 119–138; BP diastolic 70–92; PULSE 55–77; RESP 16–98; TEMP 36.1–36.4; O2SAT 96–100
[2023-08-16] MEDS: ALBUTEROL INHALER 200 PUFF/INH INHALER INH ×4 (02:34→20:30)
[2023-08-16] MEDS: IPRATROPIUM BROMIDE 200 PUFF/INH INHALER IH ×4 (02:34→20:30)
[2023-08-16] MEDS: CARVEDILOL 3.125 MG TABLET GT (08:40)
[2023-08-16] MEDS: DEXLANSOPRAZOLE 30 MG GT (08:41)
[2023-08-16] MEDS: MULTIVIT-MIN/IRON FUM/FOLIC AC 1 EACH TABLET GT (08:42)
[2023-08-16] MEDS: CYANOCOBALAMIN (VITAMIN B-12) 500 MCG TABLET 1000 MCG GT (08:42)
[2023-08-16] MEDS: INSULIN GLARGINE 100 UNIT/ML INSULN.PEN 30 UNIT SC (20:50)
[2023-08-16] MEDS: ATORVASTATIN 40 MG TABLET GT (20:50)
[2023-08-17] VITALS (10 sets, daily range): BP systolic 99–138; BP diastolic 51–76; PULSE 59–86; RESP 16–19; TEMP 36.1–36.6; O2SAT 94–98
[2023-08-17] MEDS: IPRATROPIUM BROMIDE 200 PUFF/INH INHALER IH ×3 (07:33→19:45)
[2023-08-17] MEDS: ALBUTEROL INHALER 200 PUFF/INH INHALER INH ×3 (07:33→23:29)
[2023-08-17] MEDS: CYANOCOBALAMIN (VITAMIN B-12) 500 MCG TABLET 1000 MCG GT (09:49)
[2023-08-17] MEDS: MULTIVIT-MIN/IRON FUM/FOLIC AC 1 EACH TABLET GT (09:51)
[2023-08-17] MEDS: DEXLANSOPRAZOLE 30 MG GT (09:51)
[2023-08-17] MEDS: ATORVASTATIN 40 MG TABLET GT (21:06)
[2023-08-17] MEDS: INSULIN GLARGINE 100 UNIT/ML INSULN.PEN 30 UNIT SC (21:21)
[2023-08-18] VITALS (9 sets, daily range): BP systolic 88–127; BP diastolic 51–72; PULSE 53–79; RESP 16–18; TEMP 36.1–36.4; O2SAT 95–98
[2023-08-18] MEDS: ALBUTEROL INHALER 200 PUFF/INH INHALER INH ×4 (02:15→18:30)
[2023-08-18] MEDS: IPRATROPIUM BROMIDE 200 PUFF/INH INHALER IH ×3 (07:14→18:30)
[2023-08-18] MEDS: CYANOCOBALAMIN (VITAMIN B-12) 500 MCG TABLET 1000 MCG GT (08:39)
[2023-08-18] MEDS: DEXLANSOPRAZOLE 30 MG GT (08:40)
[2023-08-18] MEDS: MULTIVIT-MIN/IRON FUM/FOLIC AC 1 EACH TABLET GT (08:40)
[2023-08-18] MEDS: INSULIN GLARGINE 100 UNIT/ML INSULN.PEN 30 UNIT SC (20:39)
[2023-08-18] MEDS: ATORVASTATIN 40 MG TABLET GT (20:39)
--- NOTE | 2023-08-18 22:00 | PD.SAPROG ---
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
[2023-08-19] VITALS (9 sets, daily range): BP systolic 96–114; BP diastolic 55–66; PULSE 48–75; RESP 17–18; TEMP 36–36.3; O2SAT 96–98
[2023-08-19] MEDS: IPRATROPIUM BROMIDE 200 PUFF/INH INHALER IH ×4 (00:35→20:37)
[2023-08-19] MEDS: ALBUTEROL INHALER 200 PUFF/INH INHALER INH ×4 (00:35→20:37)
[2023-08-19] MEDS: DEXLANSOPRAZOLE 30 MG GT (08:36)
[2023-08-19] MEDS: CYANOCOBALAMIN (VITAMIN B-12) 500 MCG TABLET 1000 MCG GT (08:36)
[2023-08-19] MEDS: MULTIVIT-MIN/IRON FUM/FOLIC AC 1 EACH TABLET GT (08:37)
--- NOTE | 2023-08-19 14:35 | CHAP ---
10:00 AM Visited by spiritual care volunteer Provided prayer for Patient.
[2023-08-19] MEDS: ATORVASTATIN 40 MG TABLET GT (20:46)
[2023-08-19] MEDS: INSULIN GLARGINE 100 UNIT/ML INSULN.PEN 30 UNIT SC (20:46)
[2023-08-20] VITALS (9 sets, daily range): BP systolic 91–137; BP diastolic 47–89; PULSE 65–81; RESP 16–20; TEMP 36.1–36.4; O2SAT 96–98
[2023-08-20] MEDS: IPRATROPIUM BROMIDE 200 PUFF/INH INHALER IH ×4 (00:36→19:47)
[2023-08-20] MEDS: ALBUTEROL INHALER 200 PUFF/INH INHALER INH ×4 (00:36→19:47)
[2023-08-20] MEDS: CARVEDILOL 3.125 MG TABLET GT (08:57)
[2023-08-20] MEDS: MULTIVIT-MIN/IRON FUM/FOLIC AC 1 EACH TABLET GT (08:58)
[2023-08-20] MEDS: CYANOCOBALAMIN (VITAMIN B-12) 500 MCG TABLET 1000 MCG GT (08:58)
[2023-08-20] MEDS: DEXLANSOPRAZOLE 30 MG GT (08:58)
--- NOTE | 2023-08-20 12:37 | PC.SS ---
Room visit: Resident is laying in bed with TV on and call light properly placed with no signs of distress. Resident will remain in current care as there are no changes in care or condition. SSD will continue to make daily contact with resident and offer support as needed.
[2023-08-20] MEDS: ATORVASTATIN 40 MG TABLET GT (20:25)
[2023-08-20] MEDS: INSULIN GLARGINE 100 UNIT/ML INSULN.PEN 30 UNIT SC (20:41)
[2023-08-21] VITALS (10 sets, daily range): BP systolic 100–127; BP diastolic 53–77; PULSE 52–81; RESP 16–20; TEMP 35.7–36.4; O2SAT 96–99
[2023-08-21] MEDS: IPRATROPIUM BROMIDE 200 PUFF/INH INHALER IH ×4 (01:39→18:55)
[2023-08-21] MEDS: ALBUTEROL INHALER 200 PUFF/INH INHALER INH ×4 (01:39→18:55)
[2023-08-21] MEDS: CYANOCOBALAMIN (VITAMIN B-12) 500 MCG TABLET 1000 MCG GT (08:42)
[2023-08-21] MEDS: MULTIVIT-MIN/IRON FUM/FOLIC AC 1 EACH TABLET GT (08:42)
[2023-08-21] MEDS: DEXLANSOPRAZOLE 30 MG GT (08:42)
[2023-08-21] MEDS: ATORVASTATIN 40 MG TABLET GT (21:00)
[2023-08-21] MEDS: INSULIN GLARGINE 100 UNIT/ML INSULN.PEN 30 UNIT SC (21:03)
[2023-08-22] VITALS (9 sets, daily range): BP systolic 93–122; BP diastolic 41–77; PULSE 62–82; RESP 18; TEMP 35.9–36.4; O2SAT 95–100
[2023-08-22] MEDS: IPRATROPIUM BROMIDE 200 PUFF/INH INHALER IH ×4 (00:50→20:49)
[2023-08-22] MEDS: ALBUTEROL INHALER 200 PUFF/INH INHALER INH ×4 (00:50→20:49)
[2023-08-22] MEDS: CARVEDILOL 3.125 MG TABLET GT (08:30)
[2023-08-22] MEDS: MULTIVIT-MIN/IRON FUM/FOLIC AC 1 EACH TABLET GT (08:31)
[2023-08-22] MEDS: CYANOCOBALAMIN (VITAMIN B-12) 500 MCG TABLET 1000 MCG GT (08:31)
[2023-08-22] MEDS: DEXLANSOPRAZOLE 30 MG GT (08:31)
--- NOTE | 2023-08-22 12:10 | PD.SAPROG ---
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
[2023-08-22] MEDS: ATORVASTATIN 40 MG TABLET GT (20:25)
[2023-08-22] MEDS: INSULIN GLARGINE 100 UNIT/ML INSULN.PEN 30 UNIT SC (20:29)
[2023-08-23] VITALS (8 sets, daily range): BP systolic 94–126; BP diastolic 60–68; PULSE 52–81; RESP 16–18; TEMP 36.1–36.3; O2SAT 94–99
[2023-08-23] MEDS: ALBUTEROL INHALER 200 PUFF/INH INHALER INH ×4 (01:45→18:23)
[2023-08-23] MEDS: IPRATROPIUM BROMIDE 200 PUFF/INH INHALER IH ×4 (01:45→18:23)
[2023-08-23] MEDS: DEXLANSOPRAZOLE 30 MG GT (08:06)
[2023-08-23] MEDS: CYANOCOBALAMIN (VITAMIN B-12) 500 MCG TABLET 1000 MCG GT (08:06)
[2023-08-23] MEDS: MULTIVIT-MIN/IRON FUM/FOLIC AC 1 EACH TABLET GT (08:06)
[2023-08-23] MEDS: ATORVASTATIN 40 MG TABLET GT (21:14)
[2023-08-23] MEDS: INSULIN GLARGINE 100 UNIT/ML INSULN.PEN 30 UNIT SC (21:15)
[2023-08-24] VITALS (9 sets, daily range): BP systolic 99–117; BP diastolic 44–62; PULSE 51–70; RESP 18–19; TEMP 36.1–36.4; O2SAT 94–99
[2023-08-24] MEDS: IPRATROPIUM BROMIDE 200 PUFF/INH INHALER IH ×2 (00:10→19:46)
[2023-08-24] MEDS: ALBUTEROL INHALER 200 PUFF/INH INHALER INH ×2 (00:10→19:46)
[2023-08-24] MEDS: DEXLANSOPRAZOLE 30 MG GT (08:40)
[2023-08-24] MEDS: MULTIVIT-MIN/IRON FUM/FOLIC AC 1 EACH TABLET GT (08:40)
[2023-08-24] MEDS: CYANOCOBALAMIN (VITAMIN B-12) 500 MCG TABLET 1000 MCG GT (08:40)
[2023-08-24] MEDS: ATORVASTATIN 40 MG TABLET GT (21:20)
[2023-08-24] MEDS: INSULIN GLARGINE 100 UNIT/ML INSULN.PEN 30 UNIT SC (21:32)
[2023-08-25] VITALS (9 sets, daily range): BP systolic 91–135; BP diastolic 52–73; PULSE 52–93; RESP 16–18; TEMP 36.1–36.3; O2SAT 96–99
[2023-08-25] MEDS: IPRATROPIUM BROMIDE 200 PUFF/INH INHALER IH (01:14)
[2023-08-25] MEDS: ALBUTEROL INHALER 200 PUFF/INH INHALER INH ×4 (01:14→20:20)
[2023-08-25] MEDS: CYANOCOBALAMIN (VITAMIN B-12) 500 MCG TABLET 1000 MCG GT (08:11)
[2023-08-25] MEDS: MULTIVITAMIN W MINERALS 1 EACH TABLET GT (08:11)
[2023-08-25] MEDS: DEXLANSOPRAZOLE 30 MG PO (08:11)
[2023-08-25] MEDS: CARVEDILOL 3.125 MG TABLET GT (08:16)
--- NOTE | 2023-08-25 15:03 | PC.NURSE ---
Resident noted with minimal bleeding to right 2nd toe and noted to be loose. Order treatment received to apply triple atb ointment
[2023-08-25] MEDS: IPRATROPIUM BROMIDE 200 PUFF/INH INHALER INH (20:20)
[2023-08-25] MEDS: ATORVASTATIN 40 MG TABLET GT (20:34)
[2023-08-25] MEDS: INSULIN GLARGINE 100 UNIT/ML INSULN.PEN 30 UNIT SC (20:39)
[2023-08-26] VITALS (8 sets, daily range): BP systolic 99–112; BP diastolic 58–71; PULSE 50–68; RESP 16–20; TEMP 36.2–36.3; O2SAT 94–99
[2023-08-26] MEDS: ALBUTEROL INHALER 200 PUFF/INH INHALER INH ×4 (00:30→20:25)
[2023-08-26] MEDS: IPRATROPIUM BROMIDE 200 PUFF/INH INHALER INH ×4 (00:30→20:25)
[2023-08-26] MEDS: MULTIVITAMIN W MINERALS 1 EACH TABLET GT (08:31)
[2023-08-26] MEDS: DEXLANSOPRAZOLE 30 MG PO (08:31)
[2023-08-26] MEDS: CYANOCOBALAMIN (VITAMIN B-12) 500 MCG TABLET 1000 MCG GT (08:31)
[2023-08-26] MEDS: ATORVASTATIN 40 MG TABLET GT (20:44)
[2023-08-26] MEDS: MAGNESIUM HYDROXIDE 30 ML ORAL SUSP ML GT (20:45)
[2023-08-26] MEDS: INSULIN GLARGINE 100 UNIT/ML INSULN.PEN 30 UNIT SC (20:45)
[2023-08-27] VITALS (9 sets, daily range): BP systolic 86–138; BP diastolic 56–70; PULSE 60–76; RESP 16–20; TEMP 35.9–36.8; O2SAT 95–98
[2023-08-27] MEDS: IPRATROPIUM BROMIDE 200 PUFF/INH INHALER INH ×4 (01:50→20:30)
[2023-08-27] MEDS: ALBUTEROL INHALER 200 PUFF/INH INHALER INH ×4 (01:50→20:30)
[2023-08-27] MEDS: DEXLANSOPRAZOLE 30 MG PO (09:13)
[2023-08-27] MEDS: CYANOCOBALAMIN (VITAMIN B-12) 500 MCG TABLET 1000 MCG GT (09:13)
[2023-08-27] MEDS: ACETAMINOPHEN 325 MG TABLET 650 MG GT (09:14)
[2023-08-27] MEDS: MULTIVITAMIN W MINERALS 1 EACH TABLET GT (09:14)
[2023-08-27] MEDS: guaiFENesin Liq 100 MG/5 ML LIQUID 300 MG GT (09:14)
--- NOTE | 2023-08-27 14:48 | PC.SS ---
Room visit: Resident is laying in bed with head of the bed elevated with call light properly placed. Resident has no changes in care or condition he will remain in current care and will have all needs met for subacute care. This SSD will make daily contact with resident and will monitor for any changes in care or condition.
[2023-08-27] MEDS: ATORVASTATIN 40 MG TABLET GT (20:49)
[2023-08-27] MEDS: INSULIN GLARGINE 100 UNIT/ML INSULN.PEN 30 UNIT SC (20:51)
[2023-08-28] VITALS (9 sets, daily range): BP systolic 101–132; BP diastolic 60–72; PULSE 53–73; RESP 16–18; TEMP 36.3–36.9; O2SAT 96–99
[2023-08-28] MEDS: ALBUTEROL INHALER 200 PUFF/INH INHALER INH ×4 (01:00→19:45)
[2023-08-28] MEDS: IPRATROPIUM BROMIDE 200 PUFF/INH INHALER INH ×4 (01:00→19:46)
[2023-08-28] MEDS: CYANOCOBALAMIN (VITAMIN B-12) 500 MCG TABLET 1000 MCG GT (08:47)
[2023-08-28] MEDS: DEXLANSOPRAZOLE 30 MG PO (08:48)
[2023-08-28] MEDS: MULTIVITAMIN W MINERALS 1 EACH TABLET GT (08:48)
[2023-08-28] MEDS: ATORVASTATIN 40 MG TABLET GT (21:17)
[2023-08-28] MEDS: INSULIN GLARGINE 100 UNIT/ML INSULN.PEN 30 UNIT SC (21:17)
[2023-08-29] VITALS (10 sets, daily range): BP systolic 118–132; BP diastolic 70–87; PULSE 52–74; RESP 16–18; TEMP 35.9–36.1; O2SAT 96–100
[2023-08-29] MEDS: IPRATROPIUM BROMIDE 200 PUFF/INH INHALER INH ×3 (01:10→19:00)
[2023-08-29] MEDS: ALBUTEROL INHALER 200 PUFF/INH INHALER INH ×4 (01:10→19:00)
[2023-08-29] MEDS: CYANOCOBALAMIN (VITAMIN B-12) 500 MCG TABLET 1000 MCG GT (09:01)
[2023-08-29] MEDS: DEXLANSOPRAZOLE 30 MG PO (09:01)
[2023-08-29] MEDS: MULTIVITAMIN W MINERALS 1 EACH TABLET GT (09:02)
[2023-08-29] MEDS: INSULIN GLARGINE 100 UNIT/ML INSULN.PEN 30 UNIT SC (20:40)
[2023-08-29] MEDS: ATORVASTATIN 40 MG TABLET GT (20:40)
[2023-08-30] VITALS (7 sets, daily range): BP systolic 115–144; BP diastolic 65–83; PULSE 50–74; RESP 16–98; TEMP 36.2–36.3; O2SAT 95–98
[2023-08-30] MEDS: ALBUTEROL INHALER 200 PUFF/INH INHALER INH ×4 (00:44→20:25)
[2023-08-30] MEDS: IPRATROPIUM BROMIDE 200 PUFF/INH INHALER INH ×4 (00:44→20:25)
[2023-08-30] MEDS: MULTIVITAMIN W MINERALS 1 EACH TABLET GT (09:02)
[2023-08-30] MEDS: CYANOCOBALAMIN (VITAMIN B-12) 500 MCG TABLET 1000 MCG GT (09:02)
[2023-08-30] MEDS: DEXLANSOPRAZOLE 30 MG PO (09:02)
[2023-08-30] MEDS: ATORVASTATIN 40 MG TABLET GT (20:34)
[2023-08-30] MEDS: INSULIN GLARGINE 100 UNIT/ML INSULN.PEN 30 UNIT SC (20:39)
[2023-08-31] VITALS (9 sets, daily range): BP systolic 101–140; BP diastolic 53–71; PULSE 55–75; RESP 16–96; TEMP 36.2–36.4; O2SAT 94–100
[2023-08-31] MEDS: IPRATROPIUM BROMIDE 200 PUFF/INH INHALER INH ×4 (01:45→18:48)
[2023-08-31] MEDS: ALBUTEROL INHALER 200 PUFF/INH INHALER INH ×4 (01:45→18:48)
[2023-08-31 07:29] LABS: Alanine Aminotransferase 25 U/L (10-49); Albumin, Serum 3.9 gm/dL (3.4-4.8); Albumin/Globulin Ratio 1.3 (1.2-2.2); Alkaline Phosphatase 112 U/L (46-116); Anion Gap 7 (7-16); Aspartate Amino Transferase 29 U/L (0-34); BUN/Creatinine Ratio 22 Ratio (12-20); Bilirubin,Total 0.6 mg/dL (0.3-1.2); Blood Urea Nitrogen 11 mg/dL (9-23); Calcium 9.2 mg/dL (8.3-10.6); Calcium (Corrected) 9.3 mg/dL (8.5-10.1); Carbon Dioxide 27.1 mMol/L (20.0-31.0); Cardiac Risk Estimate 3.6 RATIO (4.0-6.7); Chloride 103 mMol/L (98-107); Cholesterol 118 mg/dL (132-200); Creatinine (Component) 0.5 mg/dL (0.6-1.3); Estimated Creatinine Clearance 108.3 mL/min (>60); Globulin 2.9 gm/dL (2.3-3.5); Glucose 85 mg/dL (74-106); Glucose,Fasting 85 mg/dL (74-106); HDL Cholesterol 33 mg/dL (40-60); LDL Cholesterol,Calculated 48 mg/dL (0-130); Osmolality,Calculated 272 (275-295); Potassium 3.9 mMol/L (3.4-5.1); Sodium 137 mMol/L (136-145); Total Protein 6.8 gm/dL (5.7-8.2); Triglycerides 184 mg/dL (30-150); eGFR > 60 See Note
[2023-08-31 08:05] LABS: Basophils % (Auto) 1 % (0-2.5); Eosinophils # (Auto) 0.2 Thou/mm3 (0.0-0.5); Eosinophils % (Auto) 5 % (0-10); Hematocrit 41.4 % (41.0-53.0); Hemoglobin 13.7 g/dL (13.5-16.0); Immature Granulocytes % (Auto) 0 % (0-0); Immature Granulocytes Auto 0.01 Thou/mm3 (0.00-0.00); Lymphocytes # (Auto) 1.1 Thou/mm3 (1.0-4.8); Lymphocytes % (Auto) 30 % (10-50); Mean Corpuscular HGB Conc 33.1 g/dl (31.0-37.0); Mean Corpuscular Hemoglobin 30.4 pg (25.0-35.0); Mean Corpuscular Volume 92 fL (80-100); Monocytes # (Auto) 0.4 Thou/mm3 (0.0-0.8); Monocytes % (Auto) 12 % (0-12); Neutrophils # (Auto) 1.8 Thou/mm3 (1.8-7.7); Neutrophils % (Auto) 52 % (37-80); Nucleated Red Blood Cell % 0 /100 WBC (0); Platelet Count 155 Thou/mm3 (140-440); RDW Standard Deviation 56.5 fL (35.1-43.9); Red Blood Count 4.51 Miln/mm3 (4.50-5.90); White Blood Count 3.6 Thou/mm3 (3.8-10.6)
[2023-08-31] MEDS: CARVEDILOL 3.125 MG TABLET GT (08:51)
[2023-08-31] MEDS: CYANOCOBALAMIN (VITAMIN B-12) 500 MCG TABLET 1000 MCG GT (08:52)
[2023-08-31] MEDS: MULTIVITAMIN W MINERALS 1 EACH TABLET GT (08:53)
[2023-08-31] MEDS: DEXLANSOPRAZOLE 30 MG PO (08:53)
[2023-08-31] MEDS: ATORVASTATIN 40 MG TABLET GT (21:21)
[2023-08-31] MEDS: INSULIN GLARGINE 100 UNIT/ML INSULN.PEN 30 UNIT SC (21:22)
[2023-09-01] VITALS (10 sets, daily range): BP systolic 98–146; BP diastolic 59–81; PULSE 60–78; RESP 17–96; TEMP 36.1–36.5; O2SAT 96–100
[2023-09-01] MEDS: IPRATROPIUM BROMIDE 200 PUFF/INH INHALER INH ×4 (00:55→18:50)
[2023-09-01] MEDS: ALBUTEROL INHALER 200 PUFF/INH INHALER INH ×4 (00:55→18:50)
[2023-09-01] MEDS: CARVEDILOL 3.125 MG TABLET GT (09:06)
[2023-09-01] MEDS: CYANOCOBALAMIN (VITAMIN B-12) 500 MCG TABLET 1000 MCG GT (09:07)
[2023-09-01] MEDS: DEXLANSOPRAZOLE 30 MG PO (09:08)
[2023-09-01] MEDS: INSULIN GLARGINE 100 UNIT/ML INSULN.PEN 30 UNIT SC (21:27)
[2023-09-01] MEDS: ATORVASTATIN 40 MG TABLET GT (21:27)
[2023-09-02] VITALS (9 sets, daily range): BP systolic 113–126; BP diastolic 68–82; PULSE 66–81; RESP 16–20; TEMP 36.1–36.6; O2SAT 97–100
[2023-09-02] MEDS: ALBUTEROL INHALER 200 PUFF/INH INHALER INH ×4 (00:25→18:50)
[2023-09-02] MEDS: IPRATROPIUM BROMIDE 200 PUFF/INH INHALER INH ×4 (00:25→18:50)
[2023-09-02] MEDS: CARVEDILOL 3.125 MG TABLET GT (08:29)
[2023-09-02] MEDS: DEXLANSOPRAZOLE 30 MG PO (08:30)
[2023-09-02] MEDS: CYANOCOBALAMIN (VITAMIN B-12) 500 MCG TABLET 1000 MCG GT (08:30)
[2023-09-02] MEDS: MULTIVITAMIN W MINERALS 1 EACH TABLET GT (08:30)
--- NOTE | 2023-09-02 13:26 | CHAP ---
11:00 AM Visited by spiritual care volunteer Provided prayer for Patient.
[2023-09-02] MEDS: MAGNESIUM HYDROXIDE 30 ML ORAL SUSP ML GT (14:45)
--- NOTE | 2023-09-02 15:10 | PD.SAPROG ---
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
[2023-09-02] MEDS: ATORVASTATIN 40 MG TABLET GT (20:20)
[2023-09-02] MEDS: INSULIN GLARGINE 100 UNIT/ML INSULN.PEN 30 UNIT SC (20:20)
[2023-09-03] VITALS (11 sets, daily range): BP systolic 100–131; BP diastolic 51–70; PULSE 43–81; RESP 16–20; TEMP 35.9–36.7; O2SAT 97–100
[2023-09-03] MEDS: ALBUTEROL INHALER 200 PUFF/INH INHALER INH ×4 (00:35→19:45)
[2023-09-03] MEDS: IPRATROPIUM BROMIDE 200 PUFF/INH INHALER INH ×4 (00:35→19:45)
[2023-09-03] MEDS: CARVEDILOL 3.125 MG TABLET GT (08:36)
[2023-09-03] MEDS: CYANOCOBALAMIN (VITAMIN B-12) 500 MCG TABLET 1000 MCG GT (08:36)
[2023-09-03] MEDS: MULTIVITAMIN W MINERALS 1 EACH TABLET GT (08:37)
[2023-09-03] MEDS: DEXLANSOPRAZOLE 30 MG PO (08:37)
--- NOTE | 2023-09-03 13:48 | PC.SS ---
This SSD called and spoke with resident RUTH ANN Roy regarding COVID exposure. Colt informed resident will be tested today and again in 7 days. Vitals and temp will be taken and monitored for any changes in condition. Visitors will be asked to wear N-95 mask during visits. Family will be called again if another positive case arises.
[2023-09-03] MEDS: ATORVASTATIN 40 MG TABLET GT (20:33)
[2023-09-03] MEDS: INSULIN GLARGINE 100 UNIT/ML INSULN.PEN 30 UNIT SC (20:39)
[2023-09-04] VITALS (12 sets, daily range): BP systolic 106–135; BP diastolic 54–70; PULSE 49–80; RESP 16–96; TEMP 35.9–36.7; O2SAT 93–99
[2023-09-04] MEDS: IPRATROPIUM BROMIDE 200 PUFF/INH INHALER INH ×3 (00:55→18:23)
[2023-09-04] MEDS: ALBUTEROL INHALER 200 PUFF/INH INHALER INH ×3 (00:55→18:23)
[2023-09-04] MEDS: CYANOCOBALAMIN (VITAMIN B-12) 500 MCG TABLET 1000 MCG GT (09:07)
[2023-09-04] MEDS: DEXLANSOPRAZOLE 30 MG PO (09:08)
[2023-09-04] MEDS: MULTIVITAMIN W MINERALS 1 EACH TABLET GT (09:08)
[2023-09-04] MEDS: ATORVASTATIN 40 MG TABLET GT (21:22)
[2023-09-04] MEDS: INSULIN GLARGINE 100 UNIT/ML INSULN.PEN 30 UNIT SC (21:24)
[2023-09-05] VITALS (11 sets, daily range): BP systolic 95–132; BP diastolic 50–83; PULSE 52–76; RESP 16–18; TEMP 36–36.4; O2SAT 92–99
[2023-09-05] MEDS: ALBUTEROL INHALER 200 PUFF/INH INHALER INH ×4 (00:18→19:10)
[2023-09-05] MEDS: IPRATROPIUM BROMIDE 200 PUFF/INH INHALER INH ×4 (00:18→19:10)
[2023-09-05] MEDS: CYANOCOBALAMIN (VITAMIN B-12) 500 MCG TABLET 1000 MCG GT (08:42)
[2023-09-05] MEDS: DEXLANSOPRAZOLE 30 MG PO (08:42)
[2023-09-05] MEDS: MULTIVITAMIN W MINERALS 1 EACH TABLET GT (08:43)
[2023-09-05] MEDS: ATORVASTATIN 40 MG TABLET GT (20:32)
[2023-09-05] MEDS: INSULIN GLARGINE 100 UNIT/ML INSULN.PEN 30 UNIT SC (20:36)
[2023-09-06] VITALS (10 sets, daily range): BP systolic 116–152; BP diastolic 68–83; PULSE 50–77; RESP 16–18; TEMP 35.9–36.3; O2SAT 96–99
[2023-09-06] MEDS: IPRATROPIUM BROMIDE 200 PUFF/INH INHALER INH ×4 (00:05→18:22)
[2023-09-06] MEDS: ALBUTEROL INHALER 200 PUFF/INH INHALER INH ×4 (00:05→18:22)
[2023-09-06] MEDS: CARVEDILOL 3.125 MG TABLET GT (08:24)
[2023-09-06] MEDS: MULTIVITAMIN W MINERALS 1 EACH TABLET GT (08:24)
[2023-09-06] MEDS: CYANOCOBALAMIN (VITAMIN B-12) 500 MCG TABLET 1000 MCG GT (08:24)
[2023-09-06] MEDS: DEXLANSOPRAZOLE 30 MG PO (08:24)
--- NOTE | 2023-09-06 11:54 | PD.SAPROG ---
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
--- NOTE | 2023-09-06 15:34 | PC.NURSE ---
Resident discharged from RNA program, due to his inability to further benefit from PROM exercise. 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 Tolerance for ROM, bathing, turning, changing is limited and only response is posture, reactive. Will continue to monitor resident for continued need of tandem mill roller rolls, palm protectors or pressure relief devices, such as waffle boots.
[2023-09-06] MEDS: INSULIN GLARGINE 100 UNIT/ML INSULN.PEN 30 UNIT SC (20:14)
[2023-09-06] MEDS: ATORVASTATIN 40 MG TABLET GT (20:17)
[2023-09-07] VITALS (8 sets, daily range): BP systolic 119–135; BP diastolic 69–76; PULSE 60–82; RESP 16–20; TEMP 36.3–36.7; O2SAT 95–100
[2023-09-07] MEDS: IPRATROPIUM BROMIDE 200 PUFF/INH INHALER INH ×4 (01:28→18:44)
[2023-09-07] MEDS: ALBUTEROL INHALER 200 PUFF/INH INHALER INH ×4 (01:28→18:44)
[2023-09-07] MEDS: CARVEDILOL 3.125 MG TABLET GT (08:23)
[2023-09-07] MEDS: DEXLANSOPRAZOLE 30 MG PO (08:25)
[2023-09-07] MEDS: CYANOCOBALAMIN (VITAMIN B-12) 500 MCG TABLET 1000 MCG GT (08:25)
[2023-09-07] MEDS: MULTIVITAMIN W MINERALS 1 EACH TABLET GT (08:26)
[2023-09-07] MEDS: ATORVASTATIN 40 MG TABLET GT (20:35)
[2023-09-07] MEDS: INSULIN GLARGINE 100 UNIT/ML INSULN.PEN 30 UNIT SC (20:36)
[2023-09-08] VITALS (9 sets, daily range): BP systolic 97–147; BP diastolic 53–83; PULSE 46–74; RESP 14–18; TEMP 36.1–36.3; O2SAT 94–99
[2023-09-08] MEDS: IPRATROPIUM BROMIDE 200 PUFF/INH INHALER INH ×4 (00:22→18:28)
[2023-09-08] MEDS: ALBUTEROL INHALER 200 PUFF/INH INHALER INH ×4 (00:22→18:28)
[2023-09-08] MEDS: CYANOCOBALAMIN (VITAMIN B-12) 500 MCG TABLET 1000 MCG GT (08:36)
[2023-09-08] MEDS: CARVEDILOL 3.125 MG TABLET GT (08:36)
[2023-09-08] MEDS: MULTIVITAMIN W MINERALS 1 EACH TABLET GT (08:37)
[2023-09-08] MEDS: DEXLANSOPRAZOLE 30 MG PO (08:37)
[2023-09-08] MEDS: ATORVASTATIN 40 MG TABLET GT (21:17)
[2023-09-08] MEDS: INSULIN GLARGINE 100 UNIT/ML INSULN.PEN 30 UNIT SC (21:17)
[2023-09-09] VITALS (9 sets, daily range): BP systolic 93–131; BP diastolic 57–72; PULSE 54–82; RESP 16–18; TEMP 36.1–36.2; O2SAT 95–100
[2023-09-09] MEDS: IPRATROPIUM BROMIDE 200 PUFF/INH INHALER INH ×4 (00:19→19:55)
[2023-09-09] MEDS: ALBUTEROL INHALER 200 PUFF/INH INHALER INH ×4 (00:19→19:55)
[2023-09-09] MEDS: CARVEDILOL 3.125 MG TABLET GT (08:07)
[2023-09-09] MEDS: MULTIVITAMIN W MINERALS 1 EACH TABLET GT (08:09)
[2023-09-09] MEDS: CYANOCOBALAMIN (VITAMIN B-12) 500 MCG TABLET 1000 MCG GT (08:09)
[2023-09-09] MEDS: DEXLANSOPRAZOLE 30 MG PO (08:09)
--- NOTE | 2023-09-09 13:10 | CHAP ---
11:00 AM Visited by spiritual care volunteer Provided prayer for Patient.
[2023-09-09] MEDS: ATORVASTATIN 40 MG TABLET GT (20:08)
[2023-09-09] MEDS: INSULIN GLARGINE 100 UNIT/ML INSULN.PEN 30 UNIT SC (20:16)
[2023-09-10] VITALS (10 sets, daily range): BP systolic 111–148; BP diastolic 63–93; PULSE 53–81; RESP 12–20; TEMP 35.9–36.1; O2SAT 96–99
[2023-09-10] MEDS: ALBUTEROL INHALER 200 PUFF/INH INHALER INH ×4 (00:30→19:25)
[2023-09-10] MEDS: IPRATROPIUM BROMIDE 200 PUFF/INH INHALER INH ×4 (00:30→19:25)
[2023-09-10] MEDS: CYANOCOBALAMIN (VITAMIN B-12) 500 MCG TABLET 1000 MCG GT (09:27)
[2023-09-10] MEDS: CARVEDILOL 3.125 MG TABLET GT (09:27)
[2023-09-10] MEDS: DEXLANSOPRAZOLE 30 MG PO (09:28)
[2023-09-10] MEDS: MULTIVITAMIN W MINERALS 1 EACH TABLET GT (09:28)
--- NOTE | 2023-09-10 11:25 | CHAP ---
Patient was visited by the Spiritual Care Volunteer who prayed for them. (Volunteer was in the hospital from 9:40-11:25).
--- NOTE | 2023-09-10 15:05 | PC.SS ---
Room Visit: Resident is laying in bed with head of the bed elevated with call light properly placed. Resident is well groomed, showing no changes in mood or behavior. Resident will remain in current care as he is total care unable to makes needs known. Resident will remain in current care and will have all needs met for subacute care.
--- NOTE | 2023-09-10 15:35 | PD.SAPROG ---
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
[2023-09-10] MEDS: ATORVASTATIN 40 MG TABLET GT (20:32)
[2023-09-10] MEDS: INSULIN GLARGINE 100 UNIT/ML INSULN.PEN 30 UNIT SC (20:32)
[2023-09-11] VITALS (9 sets, daily range): BP systolic 99–134; BP diastolic 49–82; PULSE 53–75; RESP 16–18; TEMP 35.9–36.1; O2SAT 96–100
[2023-09-11] MEDS: IPRATROPIUM BROMIDE 200 PUFF/INH INHALER INH ×4 (00:10→19:25)
[2023-09-11] MEDS: ALBUTEROL INHALER 200 PUFF/INH INHALER INH ×4 (00:10→19:25)
[2023-09-11] MEDS: CARVEDILOL 3.125 MG TABLET GT (08:47)
[2023-09-11] MEDS: CYANOCOBALAMIN (VITAMIN B-12) 500 MCG TABLET 1000 MCG GT (08:48)
[2023-09-11] MEDS: MULTIVITAMIN W MINERALS 1 EACH TABLET GT (08:48)
[2023-09-11] MEDS: DEXLANSOPRAZOLE 30 MG PO (08:48)
[2023-09-11] MEDS: MAGNESIUM HYDROXIDE 30 ML ORAL SUSP ML GT (08:49)
[2023-09-11] MEDS: ATORVASTATIN 40 MG TABLET GT (20:44)
[2023-09-11] MEDS: INSULIN GLARGINE 100 UNIT/ML INSULN.PEN 30 UNIT SC (20:45)
[2023-09-12] VITALS (10 sets, daily range): BP systolic 95–132; BP diastolic 55–75; PULSE 48–74; RESP 16–20; TEMP 36.4–36.6; O2SAT 97–100
[2023-09-12] MEDS: IPRATROPIUM BROMIDE 200 PUFF/INH INHALER INH ×4 (00:30→18:10)
[2023-09-12] MEDS: ALBUTEROL INHALER 200 PUFF/INH INHALER INH ×4 (00:30→18:10)
[2023-09-12] MEDS: CARVEDILOL 3.125 MG TABLET GT (09:56)
[2023-09-12] MEDS: MULTIVITAMIN W MINERALS 1 EACH TABLET GT (09:57)
[2023-09-12] MEDS: CYANOCOBALAMIN (VITAMIN B-12) 500 MCG TABLET 1000 MCG GT (09:57)
[2023-09-12] MEDS: DEXLANSOPRAZOLE 30 MG PO (09:57)
[2023-09-12] MEDS: guaiFENesin Liq 100 MG/5 ML LIQUID 300 MG GT (20:18)
[2023-09-12] MEDS: ATORVASTATIN 40 MG TABLET GT (20:18)
[2023-09-12] MEDS: INSULIN GLARGINE 100 UNIT/ML INSULN.PEN 30 UNIT SC (21:49)
[2023-09-13] VITALS (9 sets, daily range): BP systolic 101–129; BP diastolic 56–64; PULSE 58–74; RESP 16–20; TEMP 36.1–36.3; O2SAT 96–100
[2023-09-13] MEDS: ALBUTEROL INHALER 200 PUFF/INH INHALER INH ×4 (00:40→18:53)
[2023-09-13] MEDS: IPRATROPIUM BROMIDE 200 PUFF/INH INHALER INH ×4 (00:40→18:53)
[2023-09-13] MEDS: CARVEDILOL 3.125 MG TABLET GT (08:48)
[2023-09-13] MEDS: CYANOCOBALAMIN (VITAMIN B-12) 500 MCG TABLET 1000 MCG GT (08:48)
[2023-09-13] MEDS: DEXLANSOPRAZOLE 30 MG PO (08:49)
[2023-09-13] MEDS: MULTIVITAMIN W MINERALS 1 EACH TABLET GT (08:49)
[2023-09-13] MEDS: ATORVASTATIN 40 MG TABLET GT (21:56)
[2023-09-13] MEDS: INSULIN GLARGINE 100 UNIT/ML INSULN.PEN 30 UNIT SC (21:57)
[2023-09-14] VITALS (7 sets, daily range): BP systolic 99–119; BP diastolic 66–72; PULSE 41–73; RESP 16–20; TEMP 36.2–36.4; O2SAT 93–98
[2023-09-14] MEDS: IPRATROPIUM BROMIDE 200 PUFF/INH INHALER INH ×4 (00:57→18:59)
[2023-09-14] MEDS: ALBUTEROL INHALER 200 PUFF/INH INHALER INH ×4 (00:57→18:59)
[2023-09-14] MEDS: CYANOCOBALAMIN (VITAMIN B-12) 500 MCG TABLET 1000 MCG GT (09:05)
[2023-09-14] MEDS: DEXLANSOPRAZOLE 30 MG PO (09:06)
[2023-09-14] MEDS: MULTIVITAMIN W MINERALS 1 EACH TABLET GT (09:06)
--- NOTE | 2023-09-14 11:54 | PC.SS ---
Resident seen by soda dialyzer/Dr. Smith for routine toe nail care, no new orders or recommendations at this time. Resident will continue current care.
[2023-09-14] MEDS: ATORVASTATIN 40 MG TABLET GT (20:41)
[2023-09-14] MEDS: INSULIN GLARGINE 100 UNIT/ML INSULN.PEN 30 UNIT SC (20:42)
[2023-09-14] MEDS: MAGNESIUM HYDROXIDE 30 ML ORAL SUSP ML GT (20:59)
[2023-09-15] VITALS (9 sets, daily range): BP systolic 98–133; BP diastolic 52–76; PULSE 54–68; RESP 16–20; TEMP 36.2–36.5; O2SAT 93–98
[2023-09-15] MEDS: IPRATROPIUM BROMIDE 200 PUFF/INH INHALER INH ×4 (00:37→18:30)
[2023-09-15] MEDS: ALBUTEROL INHALER 200 PUFF/INH INHALER INH ×4 (00:37→18:30)
[2023-09-15] MEDS: CARVEDILOL 3.125 MG TABLET GT (08:16)
[2023-09-15] MEDS: DEXLANSOPRAZOLE 30 MG PO (08:16)
[2023-09-15] MEDS: CYANOCOBALAMIN (VITAMIN B-12) 500 MCG TABLET 1000 MCG GT (08:16)
[2023-09-15] MEDS: MULTIVITAMIN W MINERALS 1 EACH TABLET GT (08:16)
[2023-09-15] MEDS: ATORVASTATIN 40 MG TABLET GT (20:02)
[2023-09-15] MEDS: INSULIN GLARGINE 100 UNIT/ML INSULN.PEN 30 UNIT SC (21:00)
[2023-09-16] VITALS (9 sets, daily range): BP systolic 90–142; BP diastolic 56–68; PULSE 53–78; RESP 16–20; TEMP 36.3–36.6; O2SAT 94–98
[2023-09-16] MEDS: ALBUTEROL INHALER 200 PUFF/INH INHALER INH ×4 (00:38→18:42)
[2023-09-16] MEDS: IPRATROPIUM BROMIDE 200 PUFF/INH INHALER INH ×4 (00:38→18:42)
[2023-09-16] MEDS: CARVEDILOL 3.125 MG TABLET GT (08:44)
[2023-09-16] MEDS: CYANOCOBALAMIN (VITAMIN B-12) 500 MCG TABLET 1000 MCG GT (08:45)
[2023-09-16] MEDS: MULTIVITAMIN W MINERALS 1 EACH TABLET GT (08:45)
[2023-09-16] MEDS: DEXLANSOPRAZOLE 30 MG PO (08:45)
--- NOTE | 2023-09-16 10:19 | PC.NURSE ---
Late entry for resident Influenza immunization of 07/02/2023; Nabil [id number] Exp 02/03/24: consent obtained from RP/brother of resident. See Summary.
--- NOTE | 2023-09-16 12:58 | CHAP ---
11:00 AM Visited by spiritual care volunteer Provided prayer for Patient.
[2023-09-16] MEDS: ATORVASTATIN 40 MG TABLET GT (21:00)
[2023-09-16] MEDS: INSULIN GLARGINE 100 UNIT/ML INSULN.PEN 30 UNIT SC (21:02)
[2023-09-17] VITALS (8 sets, daily range): BP systolic 91–117; BP diastolic 49–64; PULSE 57–82; RESP 16–18; TEMP 36.2–36.4; O2SAT 94–98
[2023-09-17] MEDS: IPRATROPIUM BROMIDE 200 PUFF/INH INHALER INH ×4 (01:04→18:50)
[2023-09-17] MEDS: ALBUTEROL INHALER 200 PUFF/INH INHALER INH ×4 (01:04→18:50)
[2023-09-17] MEDS: CYANOCOBALAMIN (VITAMIN B-12) 500 MCG TABLET 1000 MCG GT (09:00)
[2023-09-17] MEDS: MULTIVITAMIN W MINERALS 1 EACH TABLET GT (09:00)
[2023-09-17] MEDS: DEXLANSOPRAZOLE 30 MG PO (09:00)
[2023-09-17] MEDS: MAGNESIUM HYDROXIDE 30 ML ORAL SUSP ML GT (09:03)
--- NOTE | 2023-09-17 10:54 | CHAP ---
Spiritual Care Volunteer prayed for patient. (Volunteer was in the hospital from 09:38-12:50).
--- NOTE | 2023-09-17 15:15 | PC.SS ---
Room visit: Resident is laying in bed with head of the bed elevated, resident is well groomed with call light properly placed with no signs of distress. Resident currently does not have any care or condition, resident will remain in current care. SSD to continue to make daily contact with resident and monitor mood and behavior for any changes.
[2023-09-17] MEDS: ATORVASTATIN 40 MG TABLET GT (21:00)
[2023-09-17] MEDS: INSULIN GLARGINE 100 UNIT/ML INSULN.PEN 30 UNIT SC (21:02)
[2023-09-18] VITALS (8 sets, daily range): BP systolic 93–125; BP diastolic 50–70; PULSE 60–87; RESP 16–20; TEMP 36.1–36.2; O2SAT 96–99
[2023-09-18] MEDS: ALBUTEROL INHALER 200 PUFF/INH INHALER INH ×4 (00:36→19:39)
[2023-09-18] MEDS: bisacodyL 10 MG SUPP.RECT PR (02:15)
[2023-09-18] MEDS: IPRATROPIUM BROMIDE 200 PUFF/INH INHALER INH ×3 (06:37→19:39)
[2023-09-18] MEDS: CARVEDILOL 3.125 MG TABLET GT (08:45)
[2023-09-18] MEDS: MULTIVITAMIN W MINERALS 1 EACH TABLET GT (08:46)
[2023-09-18] MEDS: DEXLANSOPRAZOLE 30 MG PO (08:46)
[2023-09-18] MEDS: CYANOCOBALAMIN (VITAMIN B-12) 500 MCG TABLET 1000 MCG GT (08:46)
[2023-09-18] MEDS: ATORVASTATIN 40 MG TABLET GT (21:10)
[2023-09-18] MEDS: INSULIN GLARGINE 100 UNIT/ML INSULN.PEN 30 UNIT SC (21:10)
--- NOTE | 2023-09-18 23:55 | PD.SAPROG ---
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
[2023-09-19] VITALS (10 sets, daily range): BP systolic 93–121; BP diastolic 50–73; PULSE 52–74; RESP 16–20; TEMP 36.2–36.5; O2SAT 95–98
[2023-09-19] MEDS: IPRATROPIUM BROMIDE 200 PUFF/INH INHALER INH ×6 (00:36→23:55)
[2023-09-19] MEDS: ALBUTEROL INHALER 200 PUFF/INH INHALER INH ×3 (00:49→23:55)
[2023-09-19] MEDS: CYANOCOBALAMIN (VITAMIN B-12) 500 MCG TABLET 1000 MCG GT (08:43)
[2023-09-19] MEDS: DEXLANSOPRAZOLE 30 MG PO (08:43)
[2023-09-19] MEDS: MULTIVITAMIN W MINERALS 1 EACH TABLET GT (08:44)
[2023-09-19] MEDS: ATORVASTATIN 40 MG TABLET GT (20:53)
[2023-09-19] MEDS: INSULIN GLARGINE 100 UNIT/ML INSULN.PEN 30 UNIT SC (21:13)
[2023-09-20] VITALS (8 sets, daily range): BP systolic 96–129; BP diastolic 57–69; PULSE 52–74; RESP 16–20; TEMP 36.2–36.4; O2SAT 96–100
[2023-09-20] MEDS: IPRATROPIUM BROMIDE 200 PUFF/INH INHALER INH ×3 (06:34→19:05)
[2023-09-20] MEDS: ALBUTEROL INHALER 200 PUFF/INH INHALER INH ×3 (06:34→19:05)
[2023-09-20] MEDS: CARVEDILOL 3.125 MG TABLET GT (09:51)
[2023-09-20] MEDS: CYANOCOBALAMIN (VITAMIN B-12) 500 MCG TABLET 1000 MCG GT (09:52)
[2023-09-20] MEDS: DEXLANSOPRAZOLE 30 MG PO (09:53)
[2023-09-20] MEDS: MULTIVITAMIN W MINERALS 1 EACH TABLET GT (09:53)
[2023-09-20] MEDS: ATORVASTATIN 40 MG TABLET GT (21:06)
[2023-09-20] MEDS: INSULIN GLARGINE 100 UNIT/ML INSULN.PEN 30 UNIT SC (21:06)
[2023-09-21] VITALS (11 sets, daily range): BP systolic 93–110; BP diastolic 58–67; PULSE 54–72; RESP 18–19; TEMP 36–36.5; O2SAT 95–99
[2023-09-21] MEDS: IPRATROPIUM BROMIDE 200 PUFF/INH INHALER INH ×4 (00:26→18:55)
[2023-09-21] MEDS: ALBUTEROL INHALER 200 PUFF/INH INHALER INH ×4 (00:26→18:55)
[2023-09-21] MEDS: CARVEDILOL 3.125 MG TABLET GT (08:27)
[2023-09-21] MEDS: CYANOCOBALAMIN (VITAMIN B-12) 500 MCG TABLET 1000 MCG GT (08:28)
[2023-09-21] MEDS: DEXLANSOPRAZOLE 30 MG PO (08:28)
[2023-09-21] MEDS: MULTIVITAMIN W MINERALS 1 EACH TABLET GT (08:28)
[2023-09-21] MEDS: ATORVASTATIN 40 MG TABLET GT (20:28)
[2023-09-21] MEDS: INSULIN GLARGINE 100 UNIT/ML INSULN.PEN 30 UNIT SC (21:40)
[2023-09-21] MEDS: MAGNESIUM HYDROXIDE 30 ML ORAL SUSP ML GT (21:41)
[2023-09-22] VITALS (8 sets, daily range): BP systolic 90–134; BP diastolic 47–62; PULSE 52–77; RESP 16–18; TEMP 36–36.2; O2SAT 95–99
[2023-09-22] MEDS: IPRATROPIUM BROMIDE 200 PUFF/INH INHALER INH ×4 (01:06→18:54)
[2023-09-22] MEDS: ALBUTEROL INHALER 200 PUFF/INH INHALER INH ×4 (01:06→18:54)
[2023-09-22] MEDS: CARVEDILOL 3.125 MG TABLET GT (08:37)
[2023-09-22] MEDS: CYANOCOBALAMIN (VITAMIN B-12) 500 MCG TABLET 1000 MCG GT (08:38)
[2023-09-22] MEDS: DEXLANSOPRAZOLE 30 MG PO (08:38)
[2023-09-22] MEDS: MULTIVITAMIN W MINERALS 1 EACH TABLET GT (08:38)
[2023-09-22] MEDS: INSULIN GLARGINE 100 UNIT/ML INSULN.PEN 30 UNIT SC (20:06)
[2023-09-22] MEDS: ATORVASTATIN 40 MG TABLET GT (20:08)
--- NOTE | 2023-09-22 20:51 | PD.SAPROG ---
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
[2023-09-23] VITALS (9 sets, daily range): BP systolic 102–137; BP diastolic 61–67; PULSE 48–71; RESP 16–20; TEMP 36.2–36.6; O2SAT 96–100
[2023-09-23] MEDS: IPRATROPIUM BROMIDE 200 PUFF/INH INHALER INH ×4 (00:20→19:05)
[2023-09-23] MEDS: ALBUTEROL INHALER 200 PUFF/INH INHALER INH ×4 (00:20→19:05)
[2023-09-23] MEDS: CARVEDILOL 3.125 MG TABLET GT (08:25)
[2023-09-23] MEDS: CYANOCOBALAMIN (VITAMIN B-12) 500 MCG TABLET 1000 MCG GT (08:26)
[2023-09-23] MEDS: DEXLANSOPRAZOLE 30 MG PO (08:26)
[2023-09-23] MEDS: MULTIVITAMIN W MINERALS 1 EACH TABLET GT (08:26)
--- NOTE | 2023-09-23 13:31 | CHAP ---
11:00 AM Visited by spiritual care volunteer Provided prayer for Patient.
[2023-09-23] MEDS: ATORVASTATIN 40 MG TABLET GT (20:06)
[2023-09-23] MEDS: INSULIN GLARGINE 100 UNIT/ML INSULN.PEN 30 UNIT SC (21:01)
[2023-09-24] VITALS (8 sets, daily range): BP systolic 96–114; BP diastolic 55–64; PULSE 49–79; RESP 16–18; TEMP 36.1–36.2; O2SAT 97–99
[2023-09-24] MEDS: IPRATROPIUM BROMIDE 200 PUFF/INH INHALER INH ×4 (00:50→19:10)
[2023-09-24] MEDS: ALBUTEROL INHALER 200 PUFF/INH INHALER INH ×4 (00:50→19:10)
[2023-09-24] MEDS: MAGNESIUM HYDROXIDE 30 ML ORAL SUSP ML GT (05:48)
--- NOTE | 2023-09-24 12:50 | CHAP ---
Patient was visited by the Spiritual Care Volunteer who prayed for them. (Volunteer was in the sub acute C 10:00-11:00)
[2023-09-24] MEDS: BISACODYL 10 MG SUPP.RECT PR (14:52)
[2023-09-24] MEDS: ATORVASTATIN 40 MG TABLET GT (20:15)
[2023-09-24] MEDS: INSULIN GLARGINE 100 UNIT/ML INSULN.PEN 30 UNIT SC (20:21)
[2023-09-25] VITALS (11 sets, daily range): BP systolic 101–120; BP diastolic 53–60; PULSE 51–75; RESP 16–18; TEMP 36.1–36.6; O2SAT 95–99
[2023-09-25] MEDS: IPRATROPIUM BROMIDE 200 PUFF/INH INHALER INH ×4 (00:44→19:20)
[2023-09-25] MEDS: ALBUTEROL INHALER 200 PUFF/INH INHALER INH ×4 (00:44→19:20)
[2023-09-25] MEDS: MULTIVITAMIN W MINERALS 1 EACH TABLET GT (08:49)
[2023-09-25] MEDS: CYANOCOBALAMIN (VITAMIN B-12) 500 MCG TABLET 1000 MCG GT (08:49)
[2023-09-25] MEDS: DEXLANSOPRAZOLE 30 MG PO (08:49)
[2023-09-25] MEDS: guaiFENesin Liq 100 MG/5 ML LIQUID 300 MG GT ×2 (11:43→20:56)
[2023-09-25] MEDS: INSULIN GLARGINE 100 UNIT/ML INSULN.PEN 30 UNIT SC (20:55)
[2023-09-25] MEDS: ATORVASTATIN 40 MG TABLET GT (20:55)
[2023-09-25] MEDS: ACETAMINOPHEN 325 MG TABLET 650 MG GT (20:56)
[2023-09-26] VITALS (8 sets, daily range): BP systolic 94–139; BP diastolic 54–72; PULSE 60–105; RESP 18–20; TEMP 36.1–36.2; O2SAT 95–99
[2023-09-26] MEDS: IPRATROPIUM BROMIDE 200 PUFF/INH INHALER INH ×4 (02:30→19:25)
[2023-09-26] MEDS: ALBUTEROL INHALER 200 PUFF/INH INHALER INH ×4 (02:30→19:25)
[2023-09-26] MEDS: CARVEDILOL 3.125 MG TABLET GT (08:48)
[2023-09-26] MEDS: DEXLANSOPRAZOLE 30 MG PO (08:49)
[2023-09-26] MEDS: CYANOCOBALAMIN (VITAMIN B-12) 500 MCG TABLET 1000 MCG GT (08:49)
[2023-09-26] MEDS: MULTIVITAMIN W MINERALS 1 EACH TABLET GT (08:49)
[2023-09-26] MEDS: MAGNESIUM HYDROXIDE 30 ML ORAL SUSP ML GT (09:01)
--- NOTE | 2023-09-26 15:58 | PD.SAPROG ---
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
[2023-09-26] MEDS: ATORVASTATIN 40 MG TABLET GT (20:39)
[2023-09-26] MEDS: INSULIN GLARGINE 100 UNIT/ML INSULN.PEN 30 UNIT SC (20:40)
[2023-09-26] MEDS: BISACODYL 10 MG SUPP.RECT PR (22:00)
[2023-09-27] VITALS (9 sets, daily range): BP systolic 102–120; BP diastolic 52–67; PULSE 54–98; RESP 18; TEMP 36–36.2; O2SAT 96–100
[2023-09-27] MEDS: ALBUTEROL INHALER 200 PUFF/INH INHALER INH ×4 (00:40→18:55)
[2023-09-27] MEDS: IPRATROPIUM BROMIDE 200 PUFF/INH INHALER INH ×4 (00:40→18:55)
[2023-09-27] MEDS: CYANOCOBALAMIN (VITAMIN B-12) 500 MCG TABLET 1000 MCG GT (08:47)
[2023-09-27] MEDS: DEXLANSOPRAZOLE 30 MG PO (08:47)
[2023-09-27] MEDS: CARVEDILOL 3.125 MG TABLET GT (08:47)
[2023-09-27] MEDS: MULTIVITAMIN W MINERALS 1 EACH TABLET GT (08:47)
--- NOTE | 2023-09-27 11:17 | PC.CWCCOMPLE ---
[employer] Pharmacist monthly MRR
[2023-09-27] MEDS: ATORVASTATIN 40 MG TABLET GT (20:42)
[2023-09-27] MEDS: INSULIN GLARGINE 100 UNIT/ML INSULN.PEN 30 UNIT SC (21:21)
[2023-09-28] VITALS (9 sets, daily range): BP systolic 93–148; BP diastolic 52–96; PULSE 46–82; RESP 16–20; TEMP 36–36.4; O2SAT 96–98
[2023-09-28] MEDS: IPRATROPIUM BROMIDE 200 PUFF/INH INHALER INH ×4 (00:30→19:20)
[2023-09-28] MEDS: ALBUTEROL INHALER 200 PUFF/INH INHALER INH ×4 (00:30→19:20)
[2023-09-28] MEDS: CARVEDILOL 3.125 MG TABLET GT (09:08)
[2023-09-28] MEDS: MULTIVITAMIN W MINERALS 1 EACH TABLET GT (09:09)
[2023-09-28] MEDS: CYANOCOBALAMIN (VITAMIN B-12) 500 MCG TABLET 1000 MCG GT (09:09)
[2023-09-28] MEDS: DEXLANSOPRAZOLE 30 MG PO (09:09)
[2023-09-28] MEDS: COVID VAC 23-24(12UP)(ANDU)/PF 50 MCG/0.5 ML SYRINGE IMi (11:09)
--- NOTE | 2023-09-28 14:55 | PD.SAPROG ---
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
--- NOTE | 2023-09-28 17:03 | PC.NURSE ---
Resident received Shnaicea Covid-19 [id number] vaccine 0.5ml IM to left deltoid at 1430.
[2023-09-28] MEDS: ATORVASTATIN 40 MG TABLET GT (21:38)
[2023-09-28] MEDS: guaiFENesin Liq 100 MG/5 ML LIQUID 300 MG GT (21:38)
[2023-09-28] MEDS: INSULIN GLARGINE 100 UNIT/ML INSULN.PEN 30 UNIT SC (21:38)
[2023-09-29] VITALS (10 sets, daily range): BP systolic 95–135; BP diastolic 61–73; PULSE 56–86; RESP 16–20; TEMP 36.1–36.4; O2SAT 97–99
[2023-09-29] MEDS: ALBUTEROL INHALER 200 PUFF/INH INHALER INH ×4 (01:04→20:23)
[2023-09-29] MEDS: IPRATROPIUM BROMIDE 200 PUFF/INH INHALER INH ×4 (01:04→20:23)
[2023-09-29] MEDS: CYANOCOBALAMIN (VITAMIN B-12) 500 MCG TABLET 1000 MCG GT (08:46)
[2023-09-29] MEDS: CARVEDILOL 3.125 MG TABLET GT (08:46)
[2023-09-29] MEDS: MULTIVITAMIN W MINERALS 1 EACH TABLET GT (08:47)
[2023-09-29] MEDS: guaiFENesin Liq 100 MG/5 ML LIQUID 300 MG GT ×2 (08:47→20:29)
[2023-09-29] MEDS: DEXLANSOPRAZOLE 30 MG PO (08:47)
--- NOTE | 2023-09-29 18:06 | PC.NURSE ---
Resident received Covid vaccine yesterday and is currently under monitoring. No adverse reactions noted. Vital signs taken Q4 hours. Resident remains afebrile. No reaction noted to injection site. Call light in reach. Will continue with current plan of care.
[2023-09-29] MEDS: ATORVASTATIN 40 MG TABLET GT (20:29)
[2023-09-29] MEDS: INSULIN GLARGINE 100 UNIT/ML INSULN.PEN 30 UNIT SC (21:13)
[2023-09-30] VITALS (8 sets, daily range): BP systolic 94–126; BP diastolic 57–73; PULSE 61–87; RESP 16–20; TEMP 36.2; O2SAT 96–99
[2023-09-30] MEDS: ALBUTEROL INHALER 200 PUFF/INH INHALER INH ×4 (02:05→18:40)
[2023-09-30] MEDS: IPRATROPIUM BROMIDE 200 PUFF/INH INHALER INH ×4 (02:05→18:40)
[2023-09-30 07:25] LABS: Glucose,Fasting 123 mg/dL (74-106)
[2023-09-30] MEDS: CARVEDILOL 3.125 MG TABLET GT (08:31)
[2023-09-30] MEDS: CYANOCOBALAMIN (VITAMIN B-12) 500 MCG TABLET 1000 MCG GT (08:32)
[2023-09-30] MEDS: DEXLANSOPRAZOLE 30 MG PO (08:32)
[2023-09-30] MEDS: MULTIVITAMIN W MINERALS 1 EACH TABLET GT (08:33)
--- NOTE | 2023-09-30 13:36 | CHAP ---
11:30 AM Visited by spiritual care volunteer Provided prayer for Patient.
[2023-09-30] MEDS: INSULIN GLARGINE 100 UNIT/ML INSULN.PEN 30 UNIT SC (21:46)
[2023-09-30] MEDS: ATORVASTATIN 40 MG TABLET GT (21:46)
[2023-10-01] VITALS (9 sets, daily range): BP systolic 96–124; BP diastolic 49–73; PULSE 61–75; RESP 16–18; TEMP 36.1–36.4; O2SAT 95–99
[2023-10-01] MEDS: ALBUTEROL INHALER 200 PUFF/INH INHALER INH ×4 (00:50→19:45)
[2023-10-01] MEDS: IPRATROPIUM BROMIDE 200 PUFF/INH INHALER INH ×4 (00:50→19:45)
[2023-10-01] MEDS: CYANOCOBALAMIN (VITAMIN B-12) 500 MCG TABLET 1000 MCG GT (08:09)
[2023-10-01] MEDS: DEXLANSOPRAZOLE 30 MG PO (08:09)
[2023-10-01] MEDS: CARVEDILOL 3.125 MG TABLET GT (08:09)
[2023-10-01] MEDS: MULTIVITAMIN W MINERALS 1 EACH TABLET GT (08:09)
[2023-10-01] MEDS: guaiFENesin Liq 100 MG/5 ML LIQUID 300 MG GT ×2 (12:03→21:05)
[2023-10-01] MEDS: ATORVASTATIN 40 MG TABLET GT (21:05)
[2023-10-01] MEDS: MAGNESIUM HYDROXIDE 30 ML ORAL SUSP ML GT (21:05)
[2023-10-01] MEDS: INSULIN GLARGINE 100 UNIT/ML INSULN.PEN 30 UNIT SC (21:06)
[2023-10-02] VITALS (9 sets, daily range): BP systolic 91–137; BP diastolic 52–83; PULSE 49–78; RESP 16–18; TEMP 36–36.2; O2SAT 96–98
[2023-10-02] MEDS: ALBUTEROL INHALER 200 PUFF/INH INHALER INH ×4 (00:50→12:55)
[2023-10-02] MEDS: IPRATROPIUM BROMIDE 200 PUFF/INH INHALER INH ×4 (01:45→18:50)
[2023-10-02] MEDS: CARVEDILOL 3.125 MG TABLET GT (08:33)
[2023-10-02] MEDS: DEXLANSOPRAZOLE 30 MG PO (08:34)
[2023-10-02] MEDS: CYANOCOBALAMIN (VITAMIN B-12) 500 MCG TABLET 1000 MCG GT (08:34)
[2023-10-02] MEDS: MULTIVITAMIN W MINERALS 1 EACH TABLET GT (08:34)
[2023-10-02] MEDS: guaiFENesin Liq 100 MG/5 ML LIQUID 300 MG GT (13:30)
[2023-10-02] MEDS: ATORVASTATIN 40 MG TABLET GT (20:26)
[2023-10-02] MEDS: INSULIN GLARGINE 100 UNIT/ML INSULN.PEN 30 UNIT SC (21:41)
[2023-10-03] VITALS (9 sets, daily range): BP systolic 100–118; BP diastolic 56–72; PULSE 56–89; RESP 14–18; TEMP 35.7–36.3; O2SAT 95–100
[2023-10-03] MEDS: ALBUTEROL INHALER 200 PUFF/INH INHALER INH ×4 (00:50→18:15)
[2023-10-03] MEDS: IPRATROPIUM BROMIDE 200 PUFF/INH INHALER INH ×4 (00:50→18:15)
[2023-10-03] MEDS: CYANOCOBALAMIN (VITAMIN B-12) 500 MCG TABLET 1000 MCG GT (08:46)
[2023-10-03] MEDS: DEXLANSOPRAZOLE 30 MG PO (08:46)
[2023-10-03] MEDS: MULTIVITAMIN W MINERALS 1 EACH TABLET GT (08:47)
[2023-10-03] MEDS: ATORVASTATIN 40 MG TABLET GT (21:55)
[2023-10-03] MEDS: INSULIN GLARGINE 100 UNIT/ML INSULN.PEN 30 UNIT SC (21:55)
[2023-10-03] MEDS: guaiFENesin Liq 100 MG/5 ML LIQUID 300 MG GT (21:56)
[2023-10-04] VITALS (9 sets, daily range): BP systolic 94–122; BP diastolic 57–83; PULSE 49–73; RESP 16–20; TEMP 36.1–36.2; O2SAT 95–100
[2023-10-04] MEDS: ALBUTEROL INHALER 200 PUFF/INH INHALER INH ×4 (00:37→17:55)
[2023-10-04] MEDS: IPRATROPIUM BROMIDE 200 PUFF/INH INHALER INH ×4 (00:37→17:55)
[2023-10-04] MEDS: CARVEDILOL 3.125 MG TABLET GT (08:09)
[2023-10-04] MEDS: CYANOCOBALAMIN (VITAMIN B-12) 500 MCG TABLET 1000 MCG GT (08:10)
[2023-10-04] MEDS: DEXLANSOPRAZOLE 30 MG PO (08:10)
[2023-10-04] MEDS: MULTIVITAMIN W MINERALS 1 EACH TABLET GT (08:11)
[2023-10-04] MEDS: ATORVASTATIN 40 MG TABLET GT (20:25)
[2023-10-04] MEDS: INSULIN GLARGINE 100 UNIT/ML INSULN.PEN 30 UNIT SC (21:06)
[2023-10-05] VITALS (10 sets, daily range): BP systolic 103–139; BP diastolic 66–80; PULSE 59–77; RESP 16–18; TEMP 36.1–36.4; O2SAT 97–99
[2023-10-05] MEDS: ALBUTEROL INHALER 200 PUFF/INH INHALER INH ×4 (00:21→18:45)
[2023-10-05] MEDS: IPRATROPIUM BROMIDE 200 PUFF/INH INHALER INH ×4 (00:21→18:45)
[2023-10-05] MEDS: CYANOCOBALAMIN (VITAMIN B-12) 500 MCG TABLET 1000 MCG GT (08:36)
[2023-10-05] MEDS: MULTIVITAMIN W MINERALS 1 EACH TABLET GT (08:36)
[2023-10-05] MEDS: CARVEDILOL 3.125 MG TABLET GT (08:36)
[2023-10-05] MEDS: DEXLANSOPRAZOLE 30 MG PO (08:36)
[2023-10-05] MEDS: guaiFENesin Liq 100 MG/5 ML LIQUID 300 MG GT (08:37)
[2023-10-05] MEDS: ATORVASTATIN 40 MG TABLET GT (21:04)
[2023-10-05] MEDS: INSULIN GLARGINE 100 UNIT/ML INSULN.PEN 30 UNIT SC (21:58)
[2023-10-06] VITALS (9 sets, daily range): BP systolic 103–123; BP diastolic 57–75; PULSE 53–87; RESP 16–96; TEMP 36.1–36.6; O2SAT 96–99
[2023-10-06] MEDS: ALBUTEROL INHALER 200 PUFF/INH INHALER INH ×4 (00:30→18:10)
[2023-10-06] MEDS: IPRATROPIUM BROMIDE 200 PUFF/INH INHALER INH ×4 (00:30→18:10)
[2023-10-06] MEDS: CARVEDILOL 3.125 MG TABLET GT (08:58)
[2023-10-06] MEDS: CYANOCOBALAMIN (VITAMIN B-12) 500 MCG TABLET 1000 MCG GT (08:59)
[2023-10-06] MEDS: DEXLANSOPRAZOLE 30 MG PO (08:59)
[2023-10-06] MEDS: MULTIVITAMIN W MINERALS 1 EACH TABLET GT (08:59)
[2023-10-06] MEDS: INSULIN GLARGINE 100 UNIT/ML INSULN.PEN 30 UNIT SC (20:59)
[2023-10-06] MEDS: ATORVASTATIN 40 MG TABLET GT (21:00)
[2023-10-07] VITALS (9 sets, daily range): BP systolic 89–128; BP diastolic 52–81; PULSE 49–78; RESP 15–18; TEMP 36.1–36.3; O2SAT 96–100
[2023-10-07] MEDS: IPRATROPIUM BROMIDE 200 PUFF/INH INHALER INH ×4 (00:45→18:20)
[2023-10-07] MEDS: ALBUTEROL INHALER 200 PUFF/INH INHALER INH ×4 (00:45→18:20)
[2023-10-07] MEDS: CARVEDILOL 3.125 MG TABLET GT (08:36)
[2023-10-07] MEDS: DEXLANSOPRAZOLE 30 MG PO (08:37)
[2023-10-07] MEDS: CYANOCOBALAMIN (VITAMIN B-12) 500 MCG TABLET 1000 MCG GT (08:37)
[2023-10-07] MEDS: MULTIVITAMIN W MINERALS 1 EACH TABLET GT (08:37)
[2023-10-07] MEDS: guaiFENesin Liq 100 MG/5 ML LIQUID 300 MG GT (08:37)
--- NOTE | 2023-10-07 14:03 | CHAP ---
10:30 AM Visited by spiritual care volunteer Provided prayer for Patient.
--- NOTE | 2023-10-07 15:25 | PD.SAPROG ---
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
[2023-10-07] MEDS: ATORVASTATIN 40 MG TABLET GT (20:29)
[2023-10-07] MEDS: ACETAMINOPHEN 325 MG TABLET 650 MG GT (20:30)
[2023-10-07] MEDS: INSULIN GLARGINE 100 UNIT/ML INSULN.PEN 30 UNIT SC (20:30)
[2023-10-08] VITALS (9 sets, daily range): BP systolic 91–109; BP diastolic 48–70; PULSE 48–71; RESP 16–20; TEMP 36–36.5; O2SAT 97–99
[2023-10-08] MEDS: IPRATROPIUM BROMIDE 200 PUFF/INH INHALER INH ×4 (00:50→19:25)
[2023-10-08] MEDS: ALBUTEROL INHALER 200 PUFF/INH INHALER INH ×4 (00:50→19:25)
[2023-10-08] MEDS: CARVEDILOL 3.125 MG TABLET GT (08:42)
[2023-10-08] MEDS: CYANOCOBALAMIN (VITAMIN B-12) 500 MCG TABLET 1000 MCG GT (08:43)
[2023-10-08] MEDS: MULTIVITAMIN W MINERALS 1 EACH TABLET GT (08:43)
[2023-10-08] MEDS: DEXLANSOPRAZOLE 30 MG PO (08:43)
--- NOTE | 2023-10-08 11:52 | CHAP ---
Patient was visited by the Spiritual Care Volunteer who prayed for them. (Volunteer was in the hospital 10:33-11:52)
--- NOTE | 2023-10-08 14:05 | PC.SS ---
Room visit: Resident is laying in bed with head of the bed elevated with call light properly placed with no signs of of distress. Resident will remain in current care as he has no changes in care or condition. He remains on blow with GT in place for medication and nutrition. Staff will continue to meet all subacute needs as resident is unable to make needs known and is total care. Resident is not showing any changes in mood or behavior, SSD will continue to make contact and monitor for any changes.
[2023-10-08] MEDS: ATORVASTATIN 40 MG TABLET GT (21:15)
[2023-10-08] MEDS: INSULIN GLARGINE 100 UNIT/ML INSULN.PEN 30 UNIT SC (21:15)
[2023-10-09] VITALS (9 sets, daily range): BP systolic 97–138; BP diastolic 53–75; PULSE 47–80; RESP 17–18; TEMP 21.7–36.3; O2SAT 95–100
[2023-10-09] MEDS: IPRATROPIUM BROMIDE 200 PUFF/INH INHALER INH ×4 (00:20→18:45)
[2023-10-09] MEDS: ALBUTEROL INHALER 200 PUFF/INH INHALER INH ×4 (00:20→18:45)
[2023-10-09] MEDS: DEXLANSOPRAZOLE 30 MG PO (08:44)
[2023-10-09] MEDS: MULTIVITAMIN W MINERALS 1 EACH TABLET GT (08:44)
[2023-10-09] MEDS: guaiFENesin Liq 100 MG/5 ML LIQUID 300 MG GT (08:44)
[2023-10-09] MEDS: CYANOCOBALAMIN (VITAMIN B-12) 500 MCG TABLET 1000 MCG GT (08:44)
[2023-10-09] MEDS: ATORVASTATIN 40 MG TABLET GT (21:06)
[2023-10-09] MEDS: INSULIN GLARGINE 100 UNIT/ML INSULN.PEN 30 UNIT SC (21:07)
[2023-10-10] VITALS (9 sets, daily range): BP systolic 114–137; BP diastolic 62–77; PULSE 56–79; RESP 16–18; TEMP 36.1–36.4; O2SAT 97–99
[2023-10-10] MEDS: IPRATROPIUM BROMIDE 200 PUFF/INH INHALER INH ×4 (00:10→18:59)
[2023-10-10] MEDS: ALBUTEROL INHALER 200 PUFF/INH INHALER INH ×4 (00:10→18:59)
[2023-10-10] MEDS: CARVEDILOL 3.125 MG TABLET GT (08:25)
[2023-10-10] MEDS: CYANOCOBALAMIN (VITAMIN B-12) 500 MCG TABLET 1000 MCG GT (08:25)
[2023-10-10] MEDS: DEXLANSOPRAZOLE 30 MG PO (08:26)
[2023-10-10] MEDS: MAGNESIUM HYDROXIDE 30 ML ORAL SUSP ML GT (08:26)
[2023-10-10] MEDS: MULTIVITAMIN W MINERALS 1 EACH TABLET GT (08:26)
--- NOTE | 2023-10-10 10:15 | CHAP ---
Patient was visited by the Spiritual Care Volunteer who prayed for them. (Volunteer was in the hospital 09:25-10:15)
[2023-10-10] MEDS: ATORVASTATIN 40 MG TABLET GT (21:01)
[2023-10-10] MEDS: INSULIN GLARGINE 100 UNIT/ML INSULN.PEN 30 UNIT SC (21:02)
[2023-10-11] VITALS (9 sets, daily range): BP systolic 90–151; BP diastolic 63–93; PULSE 58–88; RESP 16–20; TEMP 35.7–36.4; O2SAT 95–99
[2023-10-11] MEDS: ALBUTEROL INHALER 200 PUFF/INH INHALER INH ×4 (01:02→19:12)
[2023-10-11] MEDS: IPRATROPIUM BROMIDE 200 PUFF/INH INHALER INH ×4 (01:02→19:12)
[2023-10-11] MEDS: CYANOCOBALAMIN (VITAMIN B-12) 500 MCG TABLET 1000 MCG GT (09:16)
[2023-10-11] MEDS: CARVEDILOL 3.125 MG TABLET GT (09:16)
[2023-10-11] MEDS: MULTIVITAMIN W MINERALS 1 EACH TABLET GT (09:17)
[2023-10-11] MEDS: DEXLANSOPRAZOLE 30 MG PO (09:17)
[2023-10-11] MEDS: ATORVASTATIN 40 MG TABLET GT (20:39)
[2023-10-11] MEDS: INSULIN GLARGINE 100 UNIT/ML INSULN.PEN 30 UNIT SC (20:40)
[2023-10-12] VITALS (9 sets, daily range): BP systolic 97–131; BP diastolic 51–72; PULSE 51–72; RESP 16–20; TEMP 36.1–36.5; O2SAT 94–100
[2023-10-12] MEDS: IPRATROPIUM BROMIDE 200 PUFF/INH INHALER INH ×4 (00:19→19:15)
[2023-10-12] MEDS: ALBUTEROL INHALER 200 PUFF/INH INHALER INH ×4 (00:19→19:15)
[2023-10-12] MEDS: DEXLANSOPRAZOLE 30 MG PO (08:25)
[2023-10-12] MEDS: CYANOCOBALAMIN (VITAMIN B-12) 500 MCG TABLET 1000 MCG GT (08:25)
[2023-10-12] MEDS: MULTIVITAMIN W MINERALS 1 EACH TABLET GT (08:25)
[2023-10-12] MEDS: guaiFENesin Liq 100 MG/5 ML LIQUID 300 MG GT (17:00)
[2023-10-12] MEDS: ATORVASTATIN 40 MG TABLET GT (20:54)
[2023-10-12] MEDS: INSULIN GLARGINE 100 UNIT/ML INSULN.PEN 30 UNIT SC (20:57)
[2023-10-12] MEDS: MAGNESIUM HYDROXIDE 30 ML ORAL SUSP ML GT (21:48)
[2023-10-13] VITALS (9 sets, daily range): BP systolic 112–148; BP diastolic 63–86; PULSE 53–69; RESP 16–20; TEMP 36.1–36.6; O2SAT 95–100
[2023-10-13] MEDS: ALBUTEROL INHALER 200 PUFF/INH INHALER INH ×4 (01:35→18:55)
[2023-10-13] MEDS: IPRATROPIUM BROMIDE 200 PUFF/INH INHALER INH ×4 (01:35→18:55)
[2023-10-13] MEDS: CARVEDILOL 3.125 MG TABLET GT (08:17)
[2023-10-13] MEDS: DEXLANSOPRAZOLE 30 MG PO (08:18)
[2023-10-13] MEDS: MULTIVITAMIN W MINERALS 1 EACH TABLET GT (08:18)
[2023-10-13] MEDS: CYANOCOBALAMIN (VITAMIN B-12) 500 MCG TABLET 1000 MCG GT (08:18)
--- NOTE | 2023-10-13 14:55 | CHAP ---
11:15 AM visited by Spiritual Care Volunteer from [facility]. She provided marc to patient.
[2023-10-13] MEDS: ATORVASTATIN 40 MG TABLET GT (21:06)
[2023-10-13] MEDS: INSULIN GLARGINE 100 UNIT/ML INSULN.PEN 30 UNIT SC (21:07)
[2023-10-14] VITALS (8 sets, daily range): BP systolic 98–112; BP diastolic 55–72; PULSE 60–78; RESP 16–23; TEMP 36.1–36.3; O2SAT 95–100
[2023-10-14] MEDS: ALBUTEROL INHALER 200 PUFF/INH INHALER INH ×4 (00:40→19:40)
[2023-10-14] MEDS: IPRATROPIUM BROMIDE 200 PUFF/INH INHALER INH ×4 (00:40→19:40)
[2023-10-14] MEDS: CYANOCOBALAMIN (VITAMIN B-12) 500 MCG TABLET 1000 MCG GT (08:24)
[2023-10-14] MEDS: MULTIVITAMIN W MINERALS 1 EACH TABLET GT (08:24)
[2023-10-14] MEDS: DEXLANSOPRAZOLE 30 MG PO (08:24)
--- NOTE | 2023-10-14 13:55 | PC.SS ---
Room visit: Resident is laying in bed with head of the bed elevated with call light properly placed with no signs of distress. Resident will remain in current care as he has no changes in care or condition. Resident remains on blow by with GT in place with no signs of distress. He is total care unable to make needs known. Staff will continue to provide all subacute care needs. Resident is not ready to DC to lower level of care as he has a heavy care regimen family unable to provide care at home. This SSD will continue to make daily contact with resident and monitor for changes in mood or behavior, SSD will offer emotional support as he may needs.
--- NOTE | 2023-10-14 14:25 | CHAP ---
11:30 AM Visited by spiritual care volunteer Provided prayer for Patient.
[2023-10-14] MEDS: INSULIN GLARGINE 100 UNIT/ML INSULN.PEN 30 UNIT SC (21:06)
[2023-10-14] MEDS: ATORVASTATIN 40 MG TABLET GT (21:06)
[2023-10-15] VITALS (8 sets, daily range): BP systolic 107–129; BP diastolic 66–75; PULSE 60–87; RESP 17–20; TEMP 36.1–36.3; O2SAT 97–98
[2023-10-15] MEDS: IPRATROPIUM BROMIDE 200 PUFF/INH INHALER INH ×3 (00:55→18:00)
[2023-10-15] MEDS: ALBUTEROL INHALER 200 PUFF/INH INHALER INH ×3 (00:55→18:00)
[2023-10-15] MEDS: CYANOCOBALAMIN (VITAMIN B-12) 500 MCG TABLET 1000 MCG GT (08:51)
[2023-10-15] MEDS: DEXLANSOPRAZOLE 30 MG PO (08:51)
[2023-10-15] MEDS: MULTIVITAMIN W MINERALS 1 EACH TABLET GT (08:51)
[2023-10-15] MEDS: CARVEDILOL 3.125 MG TABLET GT (08:51)
--- NOTE | 2023-10-15 18:00 | PC.RT ---
RT student Cecilia, did pt assessment as well as trach care, while I was in room, I administer mdi tx, trach stoma intact and collar secure, trach kit set at bedside as well as a ambu bag, pt looked comfortable no distress noted.
--- NOTE | 2023-10-15 18:47 | PD.SAPROG ---
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
[2023-10-15] MEDS: INSULIN GLARGINE 100 UNIT/ML INSULN.PEN 30 UNIT SC (21:39)
[2023-10-15] MEDS: guaiFENesin Liq 100 MG/5 ML LIQUID 300 MG GT (21:39)
[2023-10-15] MEDS: ATORVASTATIN 40 MG TABLET GT (21:39)
[2023-10-16] VITALS (9 sets, daily range): BP systolic 95–142; BP diastolic 50–66; PULSE 58–68; RESP 16–20; TEMP 36–36.2; O2SAT 94–99
[2023-10-16] MEDS: ALBUTEROL INHALER 200 PUFF/INH INHALER INH ×4 (00:25→19:30)
[2023-10-16] MEDS: IPRATROPIUM BROMIDE 200 PUFF/INH INHALER INH ×4 (00:25→19:30)
[2023-10-16] MEDS: CARVEDILOL 3.125 MG TABLET GT (08:42)
[2023-10-16] MEDS: MULTIVITAMIN W MINERALS 1 EACH TABLET GT (08:42)
[2023-10-16] MEDS: DEXLANSOPRAZOLE 30 MG PO (08:42)
[2023-10-16] MEDS: CYANOCOBALAMIN (VITAMIN B-12) 500 MCG TABLET 1000 MCG GT (08:42)
[2023-10-16] MEDS: ACETAMINOPHEN 325 MG TABLET 650 MG GT (20:40)
[2023-10-16] MEDS: ATORVASTATIN 40 MG TABLET GT (20:41)
[2023-10-16] MEDS: INSULIN GLARGINE 100 UNIT/ML INSULN.PEN 30 UNIT SC (21:33)
[2023-10-17] VITALS: BP 112/63; PULSE 51; PULSE 59; RESP 18; TEMP 36.4; O2SAT 97
[2023-10-17 06:00] VITALS: BP 106/52; PULSE 64; RESP 18; TEMP 36.2; O2SAT 98
[2023-10-17 06:40] VITALS: PULSE 55; PULSE 57; RESP 18; O2SAT 98; O2SAT 99
[2023-10-17] MEDS: ALBUTEROL INHALER 200 PUFF/INH INHALER INH ×4 (06:40→18:00)
[2023-10-17] MEDS: IPRATROPIUM BROMIDE 200 PUFF/INH INHALER INH ×4 (06:40→18:00)
[2023-10-17 08:13] VITALS: BP 143/82; PULSE 75
[2023-10-17] MEDS: CARVEDILOL 3.125 MG TABLET GT (08:13)
[2023-10-17] MEDS: DEXLANSOPRAZOLE 30 MG PO (08:14)
[2023-10-17] MEDS: CYANOCOBALAMIN (VITAMIN B-12) 500 MCG TABLET 1000 MCG GT (08:14)
[2023-10-17] MEDS: MULTIVITAMIN W MINERALS 1 EACH TABLET GT (08:14)
[2023-10-17 12:25] VITALS: PULSE 66; RESP 18; O2SAT 96
[2023-10-17 18:00] VITALS: PULSE 72; RESP 18; O2SAT 95
[2023-10-17] MEDS: ATORVASTATIN 40 MG TABLET GT (20:07)
[2023-10-17] MEDS: INSULIN GLARGINE 100 UNIT/ML INSULN.PEN 30 UNIT SC (20:07)
[2023-10-18] VITALS (9 sets, daily range): BP systolic 93–136; BP diastolic 56–78; PULSE 50–84; RESP 16–21; TEMP 36.2–36.4; O2SAT 95–99
[2023-10-18] MEDS: IPRATROPIUM BROMIDE 200 PUFF/INH INHALER INH ×4 (00:46→20:10)
[2023-10-18] MEDS: ALBUTEROL INHALER 200 PUFF/INH INHALER INH ×4 (00:46→20:10)
[2023-10-18] MEDS: CYANOCOBALAMIN (VITAMIN B-12) 500 MCG TABLET 1000 MCG GT (08:47)
[2023-10-18] MEDS: MULTIVITAMIN W MINERALS 1 EACH TABLET GT (08:48)
[2023-10-18] MEDS: DEXLANSOPRAZOLE 30 MG PO (08:48)
[2023-10-18] MEDS: INSULIN GLARGINE 100 UNIT/ML INSULN.PEN 30 UNIT SC (20:00)
[2023-10-18] MEDS: ATORVASTATIN 40 MG TABLET GT (20:01)
[2023-10-19] VITALS (9 sets, daily range): BP systolic 102–117; BP diastolic 57–74; PULSE 61–77; RESP 16–18; TEMP 35.8–36.5; O2SAT 96–98
[2023-10-19] MEDS: ALBUTEROL INHALER 200 PUFF/INH INHALER INH ×4 (01:15→19:25)
[2023-10-19] MEDS: IPRATROPIUM BROMIDE 200 PUFF/INH INHALER INH ×4 (01:15→19:25)
[2023-10-19] MEDS: CARVEDILOL 3.125 MG TABLET GT (08:26)
[2023-10-19] MEDS: CYANOCOBALAMIN (VITAMIN B-12) 500 MCG TABLET 1000 MCG GT (08:27)
[2023-10-19] MEDS: MULTIVITAMIN W MINERALS 1 EACH TABLET GT (08:27)
[2023-10-19] MEDS: DEXLANSOPRAZOLE 30 MG PO (08:27)
--- NOTE | 2023-10-19 09:26 | CHAP ---
Patient was visited on 10/17/2023 between 0932 and 1115 by a [facility] Spiritual Care Volunteer and received prayer.
--- NOTE | 2023-10-19 11:02 | CHAP ---
Patient was visited by a [facility] Spiritual Care Volunteer on 10/15/2023 between 1050 and 1203 and received encouragement and prayer.
--- NOTE | 2023-10-19 20:27 | PD.SAPROG ---
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
[2023-10-19] MEDS: ATORVASTATIN 40 MG TABLET GT (20:47)
[2023-10-19] MEDS: ACETAMINOPHEN 325 MG TABLET 650 MG GT (20:50)
[2023-10-19] MEDS: INSULIN GLARGINE 100 UNIT/ML INSULN.PEN 30 UNIT SC (21:16)
[2023-10-20] VITALS (9 sets, daily range): BP systolic 107–126; BP diastolic 54–73; PULSE 53–76; RESP 18–118; TEMP 36.3–36.6; O2SAT 96–97
[2023-10-20] MEDS: IPRATROPIUM BROMIDE 200 PUFF/INH INHALER INH ×4 (01:05→19:29)
[2023-10-20] MEDS: ALBUTEROL INHALER 200 PUFF/INH INHALER INH ×4 (01:05→19:29)
[2023-10-20] MEDS: CYANOCOBALAMIN (VITAMIN B-12) 500 MCG TABLET 1000 MCG GT (09:06)
[2023-10-20] MEDS: DEXLANSOPRAZOLE 30 MG PO (09:06)
[2023-10-20] MEDS: MULTIVITAMIN W MINERALS 1 EACH TABLET GT (09:07)
[2023-10-20] MEDS: ATORVASTATIN 40 MG TABLET GT (20:17)
[2023-10-20] MEDS: INSULIN GLARGINE 100 UNIT/ML INSULN.PEN 30 UNIT SC (20:50)
[2023-10-21] VITALS (9 sets, daily range): BP systolic 92–124; BP diastolic 60–68; PULSE 49–82; RESP 17–20; TEMP 36.1–36.2; O2SAT 97–100
[2023-10-21] MEDS: ALBUTEROL INHALER 200 PUFF/INH INHALER INH ×4 (02:29→18:54)
[2023-10-21] MEDS: IPRATROPIUM BROMIDE 200 PUFF/INH INHALER INH ×4 (02:29→18:54)
[2023-10-21] MEDS: guaiFENesin Liq 100 MG/5 ML LIQUID 300 MG GT ×2 (04:00→21:27)
[2023-10-21] MEDS: CARVEDILOL 3.125 MG TABLET GT (09:23)
[2023-10-21] MEDS: CYANOCOBALAMIN (VITAMIN B-12) 500 MCG TABLET 1000 MCG GT (09:25)
[2023-10-21] MEDS: MULTIVITAMIN W MINERALS 1 EACH TABLET GT (09:25)
[2023-10-21] MEDS: DEXLANSOPRAZOLE 30 MG PO (09:25)
[2023-10-21] MEDS: ATORVASTATIN 40 MG TABLET GT (21:26)
[2023-10-21] MEDS: INSULIN GLARGINE 100 UNIT/ML INSULN.PEN 30 UNIT SC (21:26)
[2023-10-22] VITALS (9 sets, daily range): BP systolic 98–118; BP diastolic 60–64; PULSE 50–70; RESP 14–18; TEMP 36.2–36.5; O2SAT 94–100
[2023-10-22] MEDS: IPRATROPIUM BROMIDE 200 PUFF/INH INHALER INH ×4 (00:44→18:25)
[2023-10-22] MEDS: ALBUTEROL INHALER 200 PUFF/INH INHALER INH ×4 (00:44→18:25)
[2023-10-22] MEDS: DEXLANSOPRAZOLE 30 MG PO (09:31)
[2023-10-22] MEDS: CYANOCOBALAMIN (VITAMIN B-12) 500 MCG TABLET 1000 MCG GT (09:31)
[2023-10-22] MEDS: MULTIVITAMIN W MINERALS 1 EACH TABLET GT (09:31)
--- NOTE | 2023-10-22 11:35 | CHAP ---
Patient was visited by the Spiritual Care Volunteer who prayed for them. (Volunteer was in the hospital from 09:58-11:35).
[2023-10-22] MEDS: INSULIN GLARGINE 100 UNIT/ML INSULN.PEN 30 UNIT SC (21:03)
[2023-10-22] MEDS: ATORVASTATIN 40 MG TABLET GT (21:22)
[2023-10-23] VITALS (9 sets, daily range): BP systolic 99–143; BP diastolic 53–78; PULSE 47–69; RESP 16–19; TEMP 36.2–36.3; O2SAT 91–98
[2023-10-23] MEDS: IPRATROPIUM BROMIDE 200 PUFF/INH INHALER INH ×4 (00:20→18:52)
[2023-10-23] MEDS: ALBUTEROL INHALER 200 PUFF/INH INHALER INH ×4 (00:20→18:52)
[2023-10-23] MEDS: CARVEDILOL 3.125 MG TABLET GT (08:45)
[2023-10-23] MEDS: CYANOCOBALAMIN (VITAMIN B-12) 500 MCG TABLET 1000 MCG GT (08:46)
[2023-10-23] MEDS: ACETAMINOPHEN 325 MG TABLET 650 MG GT (08:46)
[2023-10-23] MEDS: MULTIVITAMIN W MINERALS 1 EACH TABLET GT (08:46)
[2023-10-23] MEDS: DEXLANSOPRAZOLE 30 MG PO (08:46)
[2023-10-23] MEDS: guaiFENesin Liq 100 MG/5 ML LIQUID 300 MG GT (13:50)
--- NOTE | 2023-10-23 17:14 | PD.SAPROG ---
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
[2023-10-23] MEDS: ATORVASTATIN 40 MG TABLET GT (20:56)
[2023-10-23] MEDS: INSULIN GLARGINE 100 UNIT/ML INSULN.PEN 30 UNIT SC (21:52)
[2023-10-24] VITALS (9 sets, daily range): BP systolic 101–136; BP diastolic 49–70; PULSE 54–77; RESP 16–20; TEMP 36.1–36.2; O2SAT 95–100
[2023-10-24] MEDS: ALBUTEROL INHALER 200 PUFF/INH INHALER INH ×4 (00:15→18:57)
[2023-10-24] MEDS: IPRATROPIUM BROMIDE 200 PUFF/INH INHALER INH ×4 (00:15→18:57)
[2023-10-24] MEDS: DEXLANSOPRAZOLE 30 MG PO (09:10)
[2023-10-24] MEDS: MULTIVITAMIN W MINERALS 1 EACH TABLET GT (09:10)
[2023-10-24] MEDS: CYANOCOBALAMIN (VITAMIN B-12) 500 MCG TABLET 1000 MCG GT (09:10)
[2023-10-24] MEDS: CARVEDILOL 3.125 MG TABLET GT (09:10)
[2023-10-24] MEDS: ATORVASTATIN 40 MG TABLET GT (20:48)
[2023-10-24] MEDS: INSULIN GLARGINE 100 UNIT/ML INSULN.PEN 30 UNIT SC (20:48)
[2023-10-25] VITALS (9 sets, daily range): BP systolic 98–144; BP diastolic 58–82; PULSE 45–67; RESP 16–19; TEMP 36–36.4; O2SAT 97–100
[2023-10-25] MEDS: IPRATROPIUM BROMIDE 200 PUFF/INH INHALER INH ×4 (00:20→18:55)
[2023-10-25] MEDS: ALBUTEROL INHALER 200 PUFF/INH INHALER INH ×4 (00:20→18:55)
[2023-10-25] MEDS: CARVEDILOL 3.125 MG TABLET GT (09:05)
[2023-10-25] MEDS: CYANOCOBALAMIN (VITAMIN B-12) 500 MCG TABLET 1000 MCG GT (09:12)
[2023-10-25] MEDS: DEXLANSOPRAZOLE 30 MG PO (09:13)
[2023-10-25] MEDS: MULTIVITAMIN W MINERALS 1 EACH TABLET GT (09:13)
[2023-10-25] MEDS: ATORVASTATIN 40 MG TABLET GT (20:09)
[2023-10-25] MEDS: INSULIN GLARGINE 100 UNIT/ML INSULN.PEN 30 UNIT SC (20:47)
[2023-10-26] VITALS (9 sets, daily range): BP systolic 102–157; BP diastolic 65–88; PULSE 58–80; RESP 16–18; TEMP 36.1; O2SAT 95–100
[2023-10-26] MEDS: ALBUTEROL INHALER 200 PUFF/INH INHALER INH ×4 (00:25→18:35)
[2023-10-26] MEDS: IPRATROPIUM BROMIDE 200 PUFF/INH INHALER INH ×4 (00:25→18:35)
[2023-10-26] MEDS: MULTIVITAMIN W MINERALS 1 EACH TABLET GT (09:20)
[2023-10-26] MEDS: CARVEDILOL 3.125 MG TABLET GT (09:20)
[2023-10-26] MEDS: DEXLANSOPRAZOLE 30 MG PO (09:20)
[2023-10-26] MEDS: CYANOCOBALAMIN (VITAMIN B-12) 500 MCG TABLET 1000 MCG GT (09:20)
[2023-10-26] MEDS: guaiFENesin Liq 100 MG/5 ML LIQUID 300 MG GT (15:45)
[2023-10-26] MEDS: ACETAMINOPHEN 325 MG TABLET 650 MG GT (15:45)
[2023-10-26] MEDS: ATORVASTATIN 40 MG TABLET GT (20:40)
[2023-10-26] MEDS: INSULIN GLARGINE 100 UNIT/ML INSULN.PEN 30 UNIT SC (21:33)
[2023-10-27] VITALS (9 sets, daily range): BP systolic 101–143; BP diastolic 57–71; PULSE 52–84; RESP 16–19; TEMP 36–36.2; O2SAT 94–100
[2023-10-27] MEDS: ALBUTEROL INHALER 200 PUFF/INH INHALER INH ×4 (01:13→18:43)
[2023-10-27] MEDS: IPRATROPIUM BROMIDE 200 PUFF/INH INHALER INH ×3 (01:13→11:54)
[2023-10-27] MEDS: CYANOCOBALAMIN (VITAMIN B-12) 500 MCG TABLET 1000 MCG GT (08:58)
[2023-10-27] MEDS: CARVEDILOL 3.125 MG TABLET GT (08:58)
[2023-10-27] MEDS: DEXLANSOPRAZOLE 30 MG PO (08:59)
[2023-10-27] MEDS: MULTIVITAMIN W MINERALS 1 EACH TABLET GT (08:59)
--- NOTE | 2023-10-27 15:46 | PC.CWCCOMPLE ---
Police Detective Pharmacist monthly MRR
[2023-10-27] MEDS: ATORVASTATIN 40 MG TABLET GT (20:01)
[2023-10-27] MEDS: INSULIN GLARGINE 100 UNIT/ML INSULN.PEN 30 UNIT SC (20:39)
--- NOTE | 2023-10-27 23:27 | PD.SAPROG ---
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
[2023-10-28] VITALS (10 sets, daily range): BP systolic 104–133; BP diastolic 68–80; PULSE 57–89; RESP 18–20; TEMP 36–36.2; O2SAT 95–99
[2023-10-28] MEDS: ALBUTEROL INHALER 200 PUFF/INH INHALER INH ×5 (00:29→23:27)
[2023-10-28] MEDS: CYANOCOBALAMIN (VITAMIN B-12) 500 MCG TABLET 1000 MCG GT (08:52)
[2023-10-28] MEDS: DEXLANSOPRAZOLE 30 MG PO (08:52)
[2023-10-28] MEDS: CARVEDILOL 3.125 MG TABLET GT (08:52)
[2023-10-28] MEDS: MULTIVITAMIN W MINERALS 1 EACH TABLET GT (08:53)
--- NOTE | 2023-10-28 15:20 | CHAP ---
11:00 AM Visited by spiritual care volunteer Provided prayer for Patient.
[2023-10-28] MEDS: IPRATROPIUM BROMIDE 200 PUFF/INH INHALER INH ×2 (16:15→23:27)
[2023-10-28] MEDS: INSULIN GLARGINE 100 UNIT/ML INSULN.PEN 30 UNIT SC (20:16)
[2023-10-28] MEDS: ATORVASTATIN 40 MG TABLET GT (20:16)
[2023-10-29] VITALS: BP 118/79; PULSE 67; RESP 19; TEMP 36.2
[2023-10-29 06:00] VITALS: BP 115/69; PULSE 71; RESP 17; TEMP 36.4; O2SAT 100
[2023-10-29 06:39] VITALS: PULSE 74; PULSE 78; RESP 18; O2SAT 95; O2SAT 97
[2023-10-29] MEDS: IPRATROPIUM BROMIDE 200 PUFF/INH INHALER INH ×2 (06:39→12:26)
[2023-10-29] MEDS: ALBUTEROL INHALER 200 PUFF/INH INHALER INH ×3 (06:39→19:44)
[2023-10-29 07:28] LABS: Glucose,Fasting 100 mg/dL (74-106)
[2023-10-29 08:43] VITALS: BP 115/69; PULSE 71
[2023-10-29] MEDS: CARVEDILOL 3.125 MG TABLET GT (08:43)
[2023-10-29] MEDS: CYANOCOBALAMIN (VITAMIN B-12) 500 MCG TABLET 1000 MCG GT (08:44)
[2023-10-29] MEDS: MULTIVITAMIN W MINERALS 1 EACH TABLET GT (08:45)
[2023-10-29] MEDS: DEXLANSOPRAZOLE 30 MG PO (08:45)
[2023-10-29 12:26] VITALS: PULSE 79; RESP 18; O2SAT 97
--- NOTE | 2023-10-29 14:06 | PC.NURSE ---
Seen by Dr Ramires, no new orders made
[2023-10-29 19:44] VITALS: PULSE 59; PULSE 60; RESP 18; O2SAT 99
[2023-10-29] MEDS: ATORVASTATIN 40 MG TABLET GT (20:18)
[2023-10-29] MEDS: INSULIN GLARGINE 100 UNIT/ML INSULN.PEN 30 UNIT SC (20:49)
[2023-10-30] VITALS (9 sets, daily range): BP systolic 103–134; BP diastolic 61–79; PULSE 53–69; RESP 16–19; TEMP 36.3–36.7; O2SAT 95–98
[2023-10-30] MEDS: IPRATROPIUM BROMIDE 200 PUFF/INH INHALER INH ×4 (01:27→18:50)
[2023-10-30] MEDS: ALBUTEROL INHALER 200 PUFF/INH INHALER INH ×4 (01:27→18:50)
[2023-10-30] MEDS: CARVEDILOL 3.125 MG TABLET GT (08:31)
[2023-10-30] MEDS: MULTIVITAMIN W MINERALS 1 EACH TABLET GT (08:32)
[2023-10-30] MEDS: CYANOCOBALAMIN (VITAMIN B-12) 500 MCG TABLET 1000 MCG GT (08:32)
[2023-10-30] MEDS: DEXLANSOPRAZOLE 30 MG PO (08:32)
[2023-10-30] MEDS: ATORVASTATIN 40 MG TABLET GT (21:02)
[2023-10-30] MEDS: INSULIN GLARGINE 100 UNIT/ML INSULN.PEN 30 UNIT SC (21:49)
[2023-10-31] VITALS (9 sets, daily range): BP systolic 110–120; BP diastolic 61–71; PULSE 40–76; RESP 16–18; TEMP 36.1–36.8; O2SAT 94–99
[2023-10-31] MEDS: ALBUTEROL INHALER 200 PUFF/INH INHALER INH ×3 (00:20→18:45)
[2023-10-31] MEDS: IPRATROPIUM BROMIDE 200 PUFF/INH INHALER INH ×3 (00:20→18:45)
[2023-10-31] MEDS: CYANOCOBALAMIN (VITAMIN B-12) 500 MCG TABLET 1000 MCG GT (08:37)
[2023-10-31] MEDS: CARVEDILOL 3.125 MG TABLET GT (08:37)
[2023-10-31] MEDS: MULTIVITAMIN W MINERALS 1 EACH TABLET GT (08:37)
[2023-10-31] MEDS: DEXLANSOPRAZOLE 30 MG PO (08:37)
[2023-10-31] MEDS: ATORVASTATIN 40 MG TABLET GT (20:58)
[2023-10-31] MEDS: ACETAMINOPHEN 325 MG TABLET 650 MG GT (20:58)
[2023-10-31] MEDS: INSULIN GLARGINE 100 UNIT/ML INSULN.PEN 30 UNIT SC (21:11)
[2023-11-01] VITALS (9 sets, daily range): BP systolic 85–134; BP diastolic 51–79; PULSE 54–75; RESP 14–20; TEMP 36–36.6; O2SAT 92–100
[2023-11-01] MEDS: IPRATROPIUM BROMIDE 200 PUFF/INH INHALER INH ×4 (01:20→19:45)
[2023-11-01] MEDS: ALBUTEROL INHALER 200 PUFF/INH INHALER INH ×4 (01:20→19:45)
[2023-11-01] MEDS: DEXLANSOPRAZOLE 30 MG PO (08:08)
[2023-11-01] MEDS: CYANOCOBALAMIN (VITAMIN B-12) 500 MCG TABLET 1000 MCG GT (08:08)
[2023-11-01] MEDS: MULTIVITAMIN W MINERALS 1 EACH TABLET GT (08:09)
[2023-11-01] MEDS: ATORVASTATIN 40 MG TABLET GT (20:40)
[2023-11-01] MEDS: INSULIN GLARGINE 100 UNIT/ML INSULN.PEN 30 UNIT SC (21:30)
--- NOTE | 2023-11-01 22:14 | PD.SAPROG ---
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
[2023-11-02] VITALS (9 sets, daily range): BP systolic 108–139; BP diastolic 61–80; PULSE 56–79; RESP 16–18; TEMP 36.1–36.5; O2SAT 96–98
[2023-11-02] MEDS: ALBUTEROL INHALER 200 PUFF/INH INHALER INH ×4 (00:20→18:55)
[2023-11-02] MEDS: IPRATROPIUM BROMIDE 200 PUFF/INH INHALER INH ×4 (00:20→18:55)
[2023-11-02] MEDS: ACETAMINOPHEN 325 MG TABLET 650 MG GT (02:37)
[2023-11-02] MEDS: guaiFENesin Liq 100 MG/5 ML LIQUID 300 MG GT (02:38)
[2023-11-02] MEDS: DEXLANSOPRAZOLE 30 MG PO (08:42)
[2023-11-02] MEDS: CYANOCOBALAMIN (VITAMIN B-12) 500 MCG TABLET 1000 MCG GT (08:42)
[2023-11-02] MEDS: MULTIVITAMIN W MINERALS 1 EACH TABLET GT (08:43)
[2023-11-02] MEDS: ATORVASTATIN 40 MG TABLET GT (20:47)
[2023-11-02] MEDS: INSULIN GLARGINE 100 UNIT/ML INSULN.PEN 30 UNIT SC (21:05)
[2023-11-03] VITALS (9 sets, daily range): BP systolic 103–142; BP diastolic 61–73; PULSE 52–74; RESP 18–20; TEMP 36.1; O2SAT 96–99
[2023-11-03] MEDS: IPRATROPIUM BROMIDE 200 PUFF/INH INHALER INH ×4 (01:00→19:57)
[2023-11-03] MEDS: ALBUTEROL INHALER 200 PUFF/INH INHALER INH ×4 (01:31→19:57)
[2023-11-03] MEDS: DEXLANSOPRAZOLE 30 MG PO (10:09)
[2023-11-03] MEDS: CYANOCOBALAMIN (VITAMIN B-12) 500 MCG TABLET 1000 MCG GT (10:12)
[2023-11-03] MEDS: MULTIVITAMIN W MINERALS 1 EACH TABLET GT (10:13)
[2023-11-03] MEDS: ATORVASTATIN 40 MG TABLET GT (21:22)
[2023-11-03] MEDS: INSULIN GLARGINE 100 UNIT/ML INSULN.PEN 30 UNIT SC (21:22)
[2023-11-04] VITALS (9 sets, daily range): BP systolic 106–157; BP diastolic 69–88; PULSE 68–83; RESP 16–19; TEMP 36.1–36.4; O2SAT 97–99
[2023-11-04] MEDS: ALBUTEROL INHALER 200 PUFF/INH INHALER INH ×4 (01:20→19:25)
[2023-11-04] MEDS: IPRATROPIUM BROMIDE 200 PUFF/INH INHALER INH ×4 (01:20→19:25)
[2023-11-04] MEDS: CARVEDILOL 3.125 MG TABLET GT (08:36)
[2023-11-04] MEDS: CYANOCOBALAMIN (VITAMIN B-12) 500 MCG TABLET 1000 MCG GT (08:38)
[2023-11-04] MEDS: MULTIVITAMIN W MINERALS 1 EACH TABLET GT (08:39)
[2023-11-04] MEDS: DEXLANSOPRAZOLE 30 MG PO (08:39)
[2023-11-04] MEDS: ATORVASTATIN 40 MG TABLET GT (20:09)
[2023-11-04] MEDS: INSULIN GLARGINE 100 UNIT/ML INSULN.PEN 30 UNIT SC (20:37)
[2023-11-04] MEDS: MAGNESIUM HYDROXIDE 30 ML ORAL SUSP ML GT (21:30)
[2023-11-05] VITALS (9 sets, daily range): BP systolic 106–132; BP diastolic 54–78; PULSE 44–76; RESP 16–18; TEMP 36.1–36.3; O2SAT 95–100
[2023-11-05] MEDS: IPRATROPIUM BROMIDE 200 PUFF/INH INHALER INH ×4 (00:35→19:25)
[2023-11-05] MEDS: ALBUTEROL INHALER 200 PUFF/INH INHALER INH ×4 (00:35→19:25)
[2023-11-05] MEDS: MULTIVITAMIN W MINERALS 1 EACH TABLET GT (08:38)
[2023-11-05] MEDS: DEXLANSOPRAZOLE 30 MG PO (08:38)
[2023-11-05] MEDS: guaiFENesin Liq 100 MG/5 ML LIQUID 300 MG GT (08:38)
[2023-11-05] MEDS: CARVEDILOL 3.125 MG TABLET GT (08:38)
[2023-11-05] MEDS: CYANOCOBALAMIN (VITAMIN B-12) 500 MCG TABLET 1000 MCG GT (08:38)
--- NOTE | 2023-11-05 11:28 | CHAP ---
Patient was visited by the Spiritual Care Volunteer who prayed for them. (Volunteer was in the hospital from 10:02-11:28).
--- NOTE | 2023-11-05 15:35 | PC.SS ---
Room visit: Resident is laying in bed with head of the bed elevated with call light properly placed with no signs of distress. Resident is well groomed, with call light in place. Resident will remain in current care as there are no changes in care or condition, staff to continue to meet all subacute care needs. Resident remains on blow by with trach in place and GT for nutrition and medications. SSD to make daily contact with resident and monitor for any changes in mood or behavior.
[2023-11-05] MEDS: ATORVASTATIN 40 MG TABLET GT (20:21)
[2023-11-05] MEDS: INSULIN GLARGINE 100 UNIT/ML INSULN.PEN 30 UNIT SC (21:04)
--- NOTE | 2023-11-05 23:08 | PD.SAPROG ---
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 No new issues. Prognosis for independent living is poor Plan: Current treatment reviewed and continued
[2023-11-06] VITALS (9 sets, daily range): BP systolic 93–134; BP diastolic 62–79; PULSE 53–67; RESP 16–20; TEMP 35.8–36.1; O2SAT 96–98
[2023-11-06] MEDS: ALBUTEROL INHALER 200 PUFF/INH INHALER INH ×4 (00:20→19:00)
[2023-11-06] MEDS: IPRATROPIUM BROMIDE 200 PUFF/INH INHALER INH ×4 (00:20→19:00)
[2023-11-06] MEDS: CYANOCOBALAMIN (VITAMIN B-12) 500 MCG TABLET 1000 MCG GT (08:14)
[2023-11-06] MEDS: CARVEDILOL 3.125 MG TABLET GT (08:14)
[2023-11-06] MEDS: MULTIVITAMIN W MINERALS 1 EACH TABLET GT (08:15)
[2023-11-06] MEDS: DEXLANSOPRAZOLE 30 MG PO (08:15)
[2023-11-06] MEDS: ATORVASTATIN 40 MG TABLET GT (21:10)
[2023-11-06] MEDS: INSULIN GLARGINE 100 UNIT/ML INSULN.PEN 30 UNIT SC (21:24)
[2023-11-07] VITALS (10 sets, daily range): BP systolic 77–138; BP diastolic 53–77; PULSE 51–77; RESP 16–20; TEMP 36.1–36.4; O2SAT 97–100
[2023-11-07] MEDS: IPRATROPIUM BROMIDE 200 PUFF/INH INHALER INH ×4 (00:30→19:05)
[2023-11-07] MEDS: ALBUTEROL INHALER 200 PUFF/INH INHALER INH ×4 (00:30→19:05)
[2023-11-07] MEDS: CYANOCOBALAMIN (VITAMIN B-12) 500 MCG TABLET 1000 MCG GT (08:15)
[2023-11-07] MEDS: DEXLANSOPRAZOLE 30 MG PO (08:15)
[2023-11-07] MEDS: MULTIVITAMIN W MINERALS 1 EACH TABLET GT (08:15)
[2023-11-07] MEDS: INSULIN GLARGINE 100 UNIT/ML INSULN.PEN 30 UNIT SC (21:22)
[2023-11-07] MEDS: ATORVASTATIN 40 MG TABLET GT (21:22)
[2023-11-08] VITALS (9 sets, daily range): BP systolic 82–123; BP diastolic 59–77; PULSE 57–72; RESP 16–20; TEMP 35.9–36.4; O2SAT 96–100
[2023-11-08] MEDS: ALBUTEROL INHALER 200 PUFF/INH INHALER INH ×4 (01:00→19:25)
[2023-11-08] MEDS: IPRATROPIUM BROMIDE 200 PUFF/INH INHALER INH ×4 (01:00→19:25)
[2023-11-08] MEDS: CARVEDILOL 3.125 MG TABLET GT (08:29)
[2023-11-08] MEDS: CYANOCOBALAMIN (VITAMIN B-12) 500 MCG TABLET 1000 MCG GT (08:30)
[2023-11-08] MEDS: MULTIVITAMIN W MINERALS 1 EACH TABLET GT (08:30)
[2023-11-08] MEDS: DEXLANSOPRAZOLE 30 MG PO (08:30)
[2023-11-08] MEDS: ATORVASTATIN 40 MG TABLET GT (20:26)
[2023-11-08] MEDS: INSULIN GLARGINE 100 UNIT/ML INSULN.PEN 30 UNIT SC (20:28)
[2023-11-09] VITALS (10 sets, daily range): BP systolic 103–147; BP diastolic 67–86; PULSE 60–83; RESP 15–18; TEMP 36–36.7; O2SAT 97–99
[2023-11-09] MEDS: ALBUTEROL INHALER 200 PUFF/INH INHALER INH ×4 (00:50→18:55)
[2023-11-09] MEDS: IPRATROPIUM BROMIDE 200 PUFF/INH INHALER INH ×4 (00:50→18:55)
[2023-11-09] MEDS: MAGNESIUM HYDROXIDE 30 ML ORAL SUSP ML GT (05:32)
[2023-11-09] MEDS: CARVEDILOL 3.125 MG TABLET GT (08:36)
[2023-11-09] MEDS: DEXLANSOPRAZOLE 30 MG PO (08:36)
[2023-11-09] MEDS: CYANOCOBALAMIN (VITAMIN B-12) 500 MCG TABLET 1000 MCG GT (08:36)
[2023-11-09] MEDS: MULTIVITAMIN W MINERALS 1 EACH TABLET GT (08:36)
[2023-11-09] MEDS: ATORVASTATIN 40 MG TABLET GT (20:25)
[2023-11-09] MEDS: INSULIN GLARGINE 100 UNIT/ML INSULN.PEN 30 UNIT SC (20:25)
--- NOTE | 2023-11-09 22:56 | PD.SAPROG ---
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 No new issues. Prognosis for independent living is poor Plan: Current treatment reviewed and continued
[2023-11-10] VITALS (9 sets, daily range): BP systolic 107–139; BP diastolic 64–81; PULSE 51–70; RESP 16–19; TEMP 36.1–36.2; O2SAT 96–99
[2023-11-10] MEDS: ALBUTEROL INHALER 200 PUFF/INH INHALER INH ×4 (00:30→18:36)
[2023-11-10] MEDS: IPRATROPIUM BROMIDE 200 PUFF/INH INHALER INH ×4 (06:37→18:36)
[2023-11-10] MEDS: CYANOCOBALAMIN (VITAMIN B-12) 500 MCG TABLET 1000 MCG GT (08:48)
[2023-11-10] MEDS: CARVEDILOL 3.125 MG TABLET GT (08:48)
[2023-11-10] MEDS: DEXLANSOPRAZOLE 30 MG PO (08:49)
[2023-11-10] MEDS: MULTIVITAMIN W MINERALS 1 EACH TABLET GT (08:49)
--- NOTE | 2023-11-10 15:35 | PC.SS ---
Room visit resident is laying in bed with head of the bed elevated with call light properly placed with no signs of distress. Resident is well groomed appears comfortable. Resident has no changes in mood or behavior, he will remain in current care. Staff will continue to meet all subacute care needs, this SSD to make daily contact with resident and monitor for changes in mood or behavior.
[2023-11-10] MEDS: ATORVASTATIN 40 MG TABLET GT (20:35)
[2023-11-10] MEDS: INSULIN GLARGINE 100 UNIT/ML INSULN.PEN 30 UNIT SC (20:51)
[2023-11-11] VITALS (10 sets, daily range): BP systolic 103–116; BP diastolic 56–68; PULSE 57–72; RESP 16–98; TEMP 36.4–36.8; O2SAT 95–100
[2023-11-11] MEDS: IPRATROPIUM BROMIDE 200 PUFF/INH INHALER INH ×4 (01:00→18:44)
[2023-11-11] MEDS: ALBUTEROL INHALER 200 PUFF/INH INHALER INH ×4 (01:00→18:44)
[2023-11-11] MEDS: CYANOCOBALAMIN (VITAMIN B-12) 500 MCG TABLET 1000 MCG GT (09:46)
[2023-11-11] MEDS: DEXLANSOPRAZOLE 30 MG PO (09:48)
[2023-11-11] MEDS: MULTIVITAMIN W MINERALS 1 EACH TABLET GT (09:48)
--- NOTE | 2023-11-11 10:44 | CHAP ---
Patient was visited by the Spiritual Care Volunteer who prayed for them. (Volunteer was in the hospital from 10:12-10:44).
[2023-11-11] MEDS: ATORVASTATIN 40 MG TABLET GT (20:41)
[2023-11-11] MEDS: INSULIN GLARGINE 100 UNIT/ML INSULN.PEN 30 UNIT SC (21:34)
[2023-11-12] VITALS (8 sets, daily range): BP systolic 100–147; BP diastolic 56–83; PULSE 50–74; RESP 16–20; TEMP 36.1–36.6; O2SAT 96–99
[2023-11-12] MEDS: ALBUTEROL INHALER 200 PUFF/INH INHALER INH ×3 (00:15→15:19)
[2023-11-12] MEDS: IPRATROPIUM BROMIDE 200 PUFF/INH INHALER INH ×2 (00:15→06:17)
[2023-11-12] MEDS: DEXLANSOPRAZOLE 30 MG PO (08:36)
[2023-11-12] MEDS: CARVEDILOL 3.125 MG TABLET GT (08:36)
[2023-11-12] MEDS: CYANOCOBALAMIN (VITAMIN B-12) 500 MCG TABLET 1000 MCG GT (08:36)
[2023-11-12] MEDS: MULTIVITAMIN W MINERALS 1 EACH TABLET GT (08:37)
--- NOTE | 2023-11-12 13:00 | CHAP ---
Patient was visited by the Spiritual Care Volunteer who prayed for them outside room. (Volunteer was in hospital from 09:20-13:00)
[2023-11-12] MEDS: ATORVASTATIN 40 MG TABLET GT (20:32)
[2023-11-12] MEDS: INSULIN GLARGINE 100 UNIT/ML INSULN.PEN 30 UNIT SC (21:23)
[2023-11-13] VITALS (9 sets, daily range): BP systolic 93–126; BP diastolic 46–71; PULSE 62–86; RESP 17–19; TEMP 36–36.4; O2SAT 97–99
[2023-11-13] MEDS: ALBUTEROL INHALER 200 PUFF/INH INHALER INH ×4 (01:18→19:52)
[2023-11-13] MEDS: IPRATROPIUM BROMIDE 200 PUFF/INH INHALER INH ×4 (01:18→19:52)
[2023-11-13] MEDS: CYANOCOBALAMIN (VITAMIN B-12) 500 MCG TABLET 1000 MCG GT (08:37)
[2023-11-13] MEDS: MULTIVITAMIN W MINERALS 1 EACH TABLET GT (08:37)
[2023-11-13] MEDS: DEXLANSOPRAZOLE 30 MG PO (08:37)
[2023-11-13] MEDS: guaiFENesin Liq 100 MG/5 ML LIQUID 300 MG GT (20:10)
[2023-11-13] MEDS: ATORVASTATIN 40 MG TABLET GT (20:10)
[2023-11-13] MEDS: INSULIN GLARGINE 100 UNIT/ML INSULN.PEN 30 UNIT SC (20:18)
--- NOTE | 2023-11-13 22:44 | PD.SAPROG ---
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 No new issues. Prognosis for independent living is poor Plan: Current treatment reviewed and continued
[2023-11-14] VITALS (11 sets, daily range): BP systolic 83–141; BP diastolic 56–82; PULSE 58–87; RESP 17–24; TEMP 35.9–36.4; O2SAT 93–132
[2023-11-14] MEDS: ALBUTEROL INHALER 200 PUFF/INH INHALER INH ×5 (00:26→18:25)
[2023-11-14] MEDS: IPRATROPIUM BROMIDE 200 PUFF/INH INHALER INH ×4 (00:26→18:25)
[2023-11-14] MEDS: ACETAMINOPHEN 325 MG TABLET 650 MG GT ×3 (05:24→20:53)
[2023-11-14] MEDS: guaiFENesin Liq 100 MG/5 ML LIQUID 300 MG GT ×2 (05:24→20:53)
[2023-11-14] MEDS: CYANOCOBALAMIN (VITAMIN B-12) 500 MCG TABLET 1000 MCG GT (09:16)
[2023-11-14] MEDS: MULTIVITAMIN W MINERALS 1 EACH TABLET GT (09:17)
[2023-11-14] MEDS: DEXLANSOPRAZOLE 30 MG PO (09:17)
--- NOTE | 2023-11-14 18:55 | PC.NURSE ---
Late entry for earlier events (afternoon) increased work of breathing noted on/off . Breathing treatments were offered and helped resident respiratory rate. No fevers noted, saturation between 94-95%. vital signs WNL notified. Hand off report given to Hilary BOYER nurse.
[2023-11-14] MEDS: ATORVASTATIN 40 MG TABLET GT (20:53)
[2023-11-14] MEDS: INSULIN GLARGINE 100 UNIT/ML INSULN.PEN 30 UNIT SC (21:06)
[2023-11-15] VITALS (7 sets, daily range): BP systolic 115–137; BP diastolic 67–78; PULSE 53–82; RESP 18–22; TEMP 36.2; O2SAT 96–100
[2023-11-15] MEDS: IPRATROPIUM BROMIDE 200 PUFF/INH INHALER INH ×4 (01:01→19:37)
[2023-11-15] MEDS: ALBUTEROL INHALER 200 PUFF/INH INHALER INH ×4 (01:01→19:37)
[2023-11-15] MEDS: CARVEDILOL 3.125 MG TABLET GT (08:22)
[2023-11-15] MEDS: DEXLANSOPRAZOLE 30 MG PO (08:23)
[2023-11-15] MEDS: CYANOCOBALAMIN (VITAMIN B-12) 500 MCG TABLET 1000 MCG GT (08:23)
[2023-11-15] MEDS: MULTIVITAMIN W MINERALS 1 EACH TABLET GT (08:23)
[2023-11-15] MEDS: INSULIN GLARGINE 100 UNIT/ML INSULN.PEN 30 UNIT SC (20:39)
[2023-11-15] MEDS: ATORVASTATIN 40 MG TABLET GT (20:39)
[2023-11-16] VITALS (9 sets, daily range): BP systolic 95–120; BP diastolic 58–67; PULSE 47–83; RESP 16–20; TEMP 36.1–36.5; O2SAT 96–100
[2023-11-16] MEDS: IPRATROPIUM BROMIDE 200 PUFF/INH INHALER INH ×4 (00:35→18:47)
[2023-11-16] MEDS: ALBUTEROL INHALER 200 PUFF/INH INHALER INH ×4 (00:35→18:47)
[2023-11-16] MEDS: CYANOCOBALAMIN (VITAMIN B-12) 500 MCG TABLET 1000 MCG GT (08:55)
[2023-11-16] MEDS: DEXLANSOPRAZOLE 30 MG PO (08:56)
[2023-11-16] MEDS: MULTIVITAMIN W MINERALS 1 EACH TABLET GT (08:56)
[2023-11-16] MEDS: ATORVASTATIN 40 MG TABLET GT (20:12)
[2023-11-16] MEDS: INSULIN GLARGINE 100 UNIT/ML INSULN.PEN 30 UNIT SC (21:06)
[2023-11-17] VITALS (11 sets, daily range): BP systolic 92–135; BP diastolic 63–80; PULSE 52–71; RESP 16–96; TEMP 36–36.4; O2SAT 96–99
[2023-11-17] MEDS: IPRATROPIUM BROMIDE 200 PUFF/INH INHALER INH ×4 (00:02→18:20)
[2023-11-17] MEDS: ALBUTEROL INHALER 200 PUFF/INH INHALER INH ×4 (00:02→18:20)
[2023-11-17] MEDS: CARBAMIDE PEROXIDE OTIC SOL 15 ML BTL 5 DROP BOTH EARS ×2 (08:44→21:34)
[2023-11-17] MEDS: CYANOCOBALAMIN (VITAMIN B-12) 500 MCG TABLET 1000 MCG GT (08:45)
[2023-11-17] MEDS: DEXLANSOPRAZOLE 30 MG PO (08:45)
[2023-11-17] MEDS: MULTIVITAMIN W MINERALS 1 EACH TABLET GT (08:45)
[2023-11-17] MEDS: INSULIN GLARGINE 100 UNIT/ML INSULN.PEN 30 UNIT SC (21:34)
[2023-11-17] MEDS: ATORVASTATIN 40 MG TABLET GT (21:34)
--- NOTE | 2023-11-17 21:35 | PD.SAPROG ---
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 No new issues. Prognosis for independent living is poor Plan: Current treatment reviewed and continued
[2023-11-18] VITALS (8 sets, daily range): BP systolic 105–134; BP diastolic 55–74; PULSE 53–72; RESP 18–20; TEMP 36–36.4; O2SAT 95–99
[2023-11-18] MEDS: IPRATROPIUM BROMIDE 200 PUFF/INH INHALER INH ×4 (00:25→18:25)
[2023-11-18] MEDS: ALBUTEROL INHALER 200 PUFF/INH INHALER INH ×4 (00:25→18:25)
[2023-11-18] MEDS: CARBAMIDE PEROXIDE OTIC SOL 15 ML BTL 5 DROP BOTH EARS ×2 (08:31→20:45)
[2023-11-18] MEDS: DEXLANSOPRAZOLE 30 MG PO (08:32)
[2023-11-18] MEDS: CYANOCOBALAMIN (VITAMIN B-12) 500 MCG TABLET 1000 MCG GT (08:32)
[2023-11-18] MEDS: CARVEDILOL 3.125 MG TABLET GT (08:32)
[2023-11-18] MEDS: MULTIVITAMIN W MINERALS 1 EACH TABLET GT (08:33)
--- NOTE | 2023-11-18 13:56 | CHAP ---
10:30 AM Visited by spiritual care volunteer Provided prayer for Patient.
[2023-11-18] MEDS: ATORVASTATIN 40 MG TABLET GT (20:45)
[2023-11-18] MEDS: INSULIN GLARGINE 100 UNIT/ML INSULN.PEN 30 UNIT SC (20:46)
[2023-11-19] VITALS (9 sets, daily range): BP systolic 105–135; BP diastolic 59–80; PULSE 53–71; RESP 16–20; TEMP 36.3–36.5; O2SAT 95–97
[2023-11-19] MEDS: IPRATROPIUM BROMIDE 200 PUFF/INH INHALER INH ×4 (00:45→18:20)
[2023-11-19] MEDS: ALBUTEROL INHALER 200 PUFF/INH INHALER INH ×4 (00:45→18:20)
[2023-11-19] MEDS: CARBAMIDE PEROXIDE OTIC SOL 15 ML BTL 5 DROP BOTH EARS ×2 (08:19→21:19)
[2023-11-19] MEDS: CYANOCOBALAMIN (VITAMIN B-12) 500 MCG TABLET 1000 MCG GT (08:22)
[2023-11-19] MEDS: MULTIVITAMIN W MINERALS 1 EACH TABLET GT (08:23)
[2023-11-19] MEDS: DEXLANSOPRAZOLE 30 MG PO (08:23)
--- NOTE | 2023-11-19 13:35 | CHAP ---
Patient was visited by the Spiritual Care Volunteer who prayed for them. (Volunteer was in the hospital from 11:30 -1:35).
--- NOTE | 2023-11-19 15:00 | PC.SS ---
Addendum entered by Susana Bro 11/19/23 15:00: Room visit: Resident is laying in bed with head of the bed elevated with call light properly laced. Resident remains on blow by with trach and GT in place for medication and nutrition. Resident has no changes in care or condition, resident will remain in current care. Resident will continue to have all needs met for subacute care. SSD will make daily contact with resident and will monitor for changes in care or condition. Original Note: Room visit: Resident is laying in bed with head of the bed elevated with call light properly laced. Resident remains on ventilator with trach and GT in place for medication and nutrition. Resident has no changes in care or condition, resident will remain in current care. Resident will continue to have all needs met for subacute care. SSD will make daily contact with resident and will monitor for changes in care or condition.
[2023-11-19] MEDS: ATORVASTATIN 40 MG TABLET GT (20:39)
[2023-11-19] MEDS: INSULIN GLARGINE 100 UNIT/ML INSULN.PEN 30 UNIT SC (21:30)
[2023-11-20] VITALS (8 sets, daily range): BP systolic 105–129; BP diastolic 54–79; PULSE 50–85; RESP 17–20; TEMP 36.1–36.4; O2SAT 94–99
[2023-11-20] MEDS: IPRATROPIUM BROMIDE 200 PUFF/INH INHALER INH ×4 (01:20→20:04)
[2023-11-20] MEDS: ALBUTEROL INHALER 200 PUFF/INH INHALER INH ×4 (01:20→20:04)
[2023-11-20] MEDS: CARBAMIDE PEROXIDE OTIC SOL 15 ML BTL 5 DROP BOTH EARS ×2 (08:12→20:50)
[2023-11-20] MEDS: CYANOCOBALAMIN (VITAMIN B-12) 500 MCG TABLET 1000 MCG GT (08:13)
[2023-11-20] MEDS: DEXLANSOPRAZOLE 30 MG PO (08:13)
[2023-11-20] MEDS: MULTIVITAMIN W MINERALS 1 EACH TABLET GT (08:13)
[2023-11-20] MEDS: CARVEDILOL 3.125 MG TABLET GT (08:13)
[2023-11-20] MEDS: INSULIN GLARGINE 100 UNIT/ML INSULN.PEN 30 UNIT SC (20:50)
[2023-11-20] MEDS: ATORVASTATIN 40 MG TABLET GT (20:50)
[2023-11-21] VITALS (7 sets, daily range): BP systolic 119–136; BP diastolic 73–79; PULSE 64–88; RESP 18; TEMP 36.2–36.7; O2SAT 95–99
[2023-11-21] MEDS: IPRATROPIUM BROMIDE 200 PUFF/INH INHALER INH ×4 (00:22→19:14)
[2023-11-21] MEDS: ALBUTEROL INHALER 200 PUFF/INH INHALER INH ×4 (00:22→19:14)
[2023-11-21] MEDS: CARVEDILOL 3.125 MG TABLET GT (08:50)
[2023-11-21] MEDS: DEXLANSOPRAZOLE 30 MG PO (08:50)
[2023-11-21] MEDS: MULTIVITAMIN W MINERALS 1 EACH TABLET GT (08:50)
[2023-11-21] MEDS: CYANOCOBALAMIN (VITAMIN B-12) 500 MCG TABLET 1000 MCG GT (08:50)
--- NOTE | 2023-11-21 19:35 | PD.SAPROG ---
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 No new issues. Prognosis for independent living is poor Plan: Current treatment reviewed and continued
[2023-11-21] MEDS: ATORVASTATIN 40 MG TABLET GT (20:36)
[2023-11-21] MEDS: INSULIN GLARGINE 100 UNIT/ML INSULN.PEN 30 UNIT SC (20:42)
[2023-11-22] VITALS (9 sets, daily range): BP systolic 98–122; BP diastolic 60–85; PULSE 60–97; RESP 16–96; TEMP 36.1–36.6; O2SAT 93–98
[2023-11-22] MEDS: ALBUTEROL INHALER 200 PUFF/INH INHALER INH ×4 (01:28→19:21)
[2023-11-22] MEDS: IPRATROPIUM BROMIDE 200 PUFF/INH INHALER INH ×4 (01:28→19:21)
[2023-11-22] MEDS: CARVEDILOL 3.125 MG TABLET GT (08:24)
[2023-11-22] MEDS: MULTIVITAMIN W MINERALS 1 EACH TABLET GT (08:26)
[2023-11-22] MEDS: CYANOCOBALAMIN (VITAMIN B-12) 500 MCG TABLET 1000 MCG GT (08:26)
[2023-11-22] MEDS: DEXLANSOPRAZOLE 30 MG PO (08:26)
[2023-11-22] MEDS: ATORVASTATIN 40 MG TABLET GT (20:15)
[2023-11-22] MEDS: INSULIN GLARGINE 100 UNIT/ML INSULN.PEN 30 UNIT SC (21:08)
[2023-11-23] VITALS (9 sets, daily range): BP systolic 99–135; BP diastolic 55–91; PULSE 54–93; RESP 16–20; TEMP 36–36.1; O2SAT 95–100
[2023-11-23] MEDS: ALBUTEROL INHALER 200 PUFF/INH INHALER INH ×4 (01:20→19:23)
[2023-11-23] MEDS: IPRATROPIUM BROMIDE 200 PUFF/INH INHALER INH ×4 (01:20→19:23)
--- NOTE | 2023-11-23 08:43 | CHAP ---
Patient was visited by a [facility] Spiritual Care Volunteer on 11/21/2023 between 1432 and 1512 and received comfort, encouragement and/or prayer.
[2023-11-23] MEDS: CARVEDILOL 3.125 MG TABLET GT (09:06)
[2023-11-23] MEDS: CYANOCOBALAMIN (VITAMIN B-12) 500 MCG TABLET 1000 MCG GT (09:07)
[2023-11-23] MEDS: MULTIVITAMIN W MINERALS 1 EACH TABLET GT (09:07)
[2023-11-23] MEDS: DEXLANSOPRAZOLE 30 MG PO (09:07)
[2023-11-23] MEDS: guaiFENesin Liq 100 MG/5 ML LIQUID 300 MG GT ×2 (09:50→20:49)
[2023-11-23] MEDS: ATORVASTATIN 40 MG TABLET GT (20:49)
[2023-11-23] MEDS: INSULIN GLARGINE 100 UNIT/ML INSULN.PEN 30 UNIT SC (20:59)
[2023-11-24] VITALS (7 sets, daily range): BP systolic 96–135; BP diastolic 58–80; PULSE 54–82; RESP 17–20; TEMP 36.1–36.4; O2SAT 95–99
[2023-11-24] MEDS: IPRATROPIUM BROMIDE 200 PUFF/INH INHALER INH ×3 (00:27→12:00)
[2023-11-24] MEDS: ALBUTEROL INHALER 200 PUFF/INH INHALER INH ×3 (00:27→12:00)
[2023-11-24] MEDS: CARVEDILOL 3.125 MG TABLET GT (09:26)
[2023-11-24] MEDS: MULTIVITAMIN W MINERALS 1 EACH TABLET GT (09:28)
[2023-11-24] MEDS: CYANOCOBALAMIN (VITAMIN B-12) 500 MCG TABLET 1000 MCG GT (09:28)
[2023-11-24] MEDS: DEXLANSOPRAZOLE 30 MG PO (09:28)
[2023-11-24] MEDS: ATORVASTATIN 40 MG TABLET GT (21:04)
[2023-11-24] MEDS: INSULIN GLARGINE 100 UNIT/ML INSULN.PEN 30 UNIT SC (21:15)
[2023-11-25] VITALS (9 sets, daily range): BP systolic 104–128; BP diastolic 60–74; PULSE 56–66; RESP 16–20; TEMP 36.1–36.2; O2SAT 97–99
[2023-11-25] MEDS: IPRATROPIUM BROMIDE 200 PUFF/INH INHALER INH ×4 (00:40→18:35)
[2023-11-25] MEDS: ALBUTEROL INHALER 200 PUFF/INH INHALER INH ×4 (00:40→18:35)
[2023-11-25] MEDS: CARVEDILOL 3.125 MG TABLET GT (08:41)
[2023-11-25] MEDS: DEXLANSOPRAZOLE 30 MG PO (08:41)
[2023-11-25] MEDS: MULTIVITAMIN W MINERALS 1 EACH TABLET GT (08:41)
[2023-11-25] MEDS: CYANOCOBALAMIN (VITAMIN B-12) 500 MCG TABLET 1000 MCG GT (08:41)
[2023-11-25] MEDS: ATORVASTATIN 40 MG TABLET GT (20:47)
[2023-11-25] MEDS: INSULIN GLARGINE 100 UNIT/ML INSULN.PEN 30 UNIT SC (21:21)
--- NOTE | 2023-11-25 23:00 | PD.SAPROG ---
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 No new issues. Prognosis for independent living is poor Plan: Current treatment reviewed and continued
[2023-11-26] VITALS (9 sets, daily range): BP systolic 98–125; BP diastolic 65–73; PULSE 45–72; RESP 16–20; TEMP 36.1–36.3; O2SAT 97–98
[2023-11-26] MEDS: ALBUTEROL INHALER 200 PUFF/INH INHALER INH ×4 (01:45→19:20)
[2023-11-26] MEDS: IPRATROPIUM BROMIDE 200 PUFF/INH INHALER INH ×4 (01:45→19:20)
[2023-11-26] MEDS: MAGNESIUM HYDROXIDE 30 ML ORAL SUSP ML GT (01:56)
[2023-11-26] MEDS: CARVEDILOL 3.125 MG TABLET GT (08:31)
[2023-11-26] MEDS: CYANOCOBALAMIN (VITAMIN B-12) 500 MCG TABLET 1000 MCG GT (08:32)
[2023-11-26] MEDS: DEXLANSOPRAZOLE 30 MG PO (08:32)
[2023-11-26] MEDS: MULTIVITAMIN W MINERALS 1 EACH TABLET GT (08:33)
[2023-11-26] MEDS: BISACODYL 10 MG SUPP.RECT PR (14:18)
[2023-11-26] MEDS: ATORVASTATIN 40 MG TABLET GT (20:26)
[2023-11-26] MEDS: INSULIN GLARGINE 100 UNIT/ML INSULN.PEN 30 UNIT SC (20:27)
[2023-11-27] VITALS (7 sets, daily range): BP systolic 112–145; BP diastolic 72–77; PULSE 63–108; RESP 16–18; TEMP 36.1–36.5; O2SAT 95–98
[2023-11-27] MEDS: IPRATROPIUM BROMIDE 200 PUFF/INH INHALER INH ×4 (00:20→19:15)
[2023-11-27] MEDS: ALBUTEROL INHALER 200 PUFF/INH INHALER INH ×4 (00:20→19:15)
[2023-11-27] MEDS: MULTIVITAMIN W MINERALS 1 EACH TABLET GT (08:40)
[2023-11-27] MEDS: DEXLANSOPRAZOLE 30 MG PO (08:40)
[2023-11-27] MEDS: CARVEDILOL 3.125 MG TABLET GT (08:40)
[2023-11-27] MEDS: CYANOCOBALAMIN (VITAMIN B-12) 500 MCG TABLET 1000 MCG GT (08:40)
[2023-11-27] MEDS: INSULIN GLARGINE 100 UNIT/ML INSULN.PEN 30 UNIT SC (20:34)
[2023-11-27] MEDS: ATORVASTATIN 40 MG TABLET GT (20:34)
--- NOTE | 2023-11-27 21:27 | PD.SAPROG ---
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 No new issues. Prognosis for independent living is poor Plan: Current treatment reviewed and continued
[2023-11-28] VITALS (9 sets, daily range): BP systolic 107–146; BP diastolic 67–80; PULSE 58–79; RESP 18–20; TEMP 35.9–36.4; O2SAT 97–100
[2023-11-28] MEDS: IPRATROPIUM BROMIDE 200 PUFF/INH INHALER INH ×4 (00:55→18:55)
[2023-11-28] MEDS: ALBUTEROL INHALER 200 PUFF/INH INHALER INH ×4 (00:55→18:55)
[2023-11-28] MEDS: CARVEDILOL 3.125 MG TABLET GT (09:01)
[2023-11-28] MEDS: DEXLANSOPRAZOLE 30 MG PO (09:01)
[2023-11-28] MEDS: CYANOCOBALAMIN (VITAMIN B-12) 500 MCG TABLET 1000 MCG GT (09:01)
[2023-11-28] MEDS: MULTIVITAMIN W MINERALS 1 EACH TABLET GT (09:01)
[2023-11-28] MEDS: ATORVASTATIN 40 MG TABLET GT (20:28)
[2023-11-28] MEDS: INSULIN GLARGINE 100 UNIT/ML INSULN.PEN 30 UNIT SC (21:00)
[2023-11-29] VITALS (10 sets, daily range): BP systolic 98–143; BP diastolic 59–89; PULSE 49–82; RESP 16–96; TEMP 36.2–36.5; O2SAT 97–99
[2023-11-29] MEDS: IPRATROPIUM BROMIDE 200 PUFF/INH INHALER INH ×4 (00:20→19:30)
[2023-11-29] MEDS: ALBUTEROL INHALER 200 PUFF/INH INHALER INH ×4 (00:20→19:30)
[2023-11-29 08:05] LABS: Glucose,Fasting 123 mg/dL (74-106)
[2023-11-29] MEDS: CARVEDILOL 3.125 MG TABLET GT (09:20)
[2023-11-29] MEDS: CYANOCOBALAMIN (VITAMIN B-12) 500 MCG TABLET 1000 MCG GT (09:21)
[2023-11-29] MEDS: DEXLANSOPRAZOLE 30 MG PO (09:22)
[2023-11-29] MEDS: MULTIVITAMIN W MINERALS 1 EACH TABLET GT (09:22)
[2023-11-29] MEDS: MAGNESIUM HYDROXIDE 30 ML ORAL SUSP ML GT (09:22)
[2023-11-29] MEDS: ATORVASTATIN 40 MG TABLET GT (20:18)
[2023-11-29] MEDS: INSULIN GLARGINE 100 UNIT/ML INSULN.PEN 30 UNIT SC (20:58)
[2023-11-30] VITALS (9 sets, daily range): BP systolic 93–104; BP diastolic 48–70; PULSE 55–81; RESP 16–21; TEMP 35.8–36.7; O2SAT 97–99
[2023-11-30] MEDS: ALBUTEROL INHALER 200 PUFF/INH INHALER INH ×4 (00:20→18:50)
[2023-11-30] MEDS: IPRATROPIUM BROMIDE 200 PUFF/INH INHALER INH ×4 (00:20→18:50)
[2023-11-30] MEDS: CARVEDILOL 3.125 MG TABLET GT (08:29)
[2023-11-30] MEDS: DEXLANSOPRAZOLE 30 MG PO (08:30)
[2023-11-30] MEDS: MULTIVITAMIN W MINERALS 1 EACH TABLET GT (08:30)
[2023-11-30] MEDS: CYANOCOBALAMIN (VITAMIN B-12) 500 MCG TABLET 1000 MCG GT (08:30)
[2023-11-30] MEDS: ATORVASTATIN 40 MG TABLET GT (20:30)
[2023-11-30] MEDS: INSULIN GLARGINE 100 UNIT/ML INSULN.PEN 30 UNIT SC (21:07)
[2023-12-01] VITALS (8 sets, daily range): BP systolic 111–134; BP diastolic 60–75; PULSE 54–81; RESP 16–20; TEMP 36.1–36.7; O2SAT 97–99
[2023-12-01] MEDS: IPRATROPIUM BROMIDE 200 PUFF/INH INHALER INH ×4 (00:35→18:25)
[2023-12-01] MEDS: ALBUTEROL INHALER 200 PUFF/INH INHALER INH ×4 (00:35→18:25)
[2023-12-01] MEDS: DEXLANSOPRAZOLE 30 MG PO (09:45)
[2023-12-01] MEDS: CYANOCOBALAMIN (VITAMIN B-12) 500 MCG TABLET 1000 MCG GT (09:45)
[2023-12-01] MEDS: MULTIVITAMIN W MINERALS 1 EACH TABLET GT (09:45)
[2023-12-01] MEDS: ATORVASTATIN 40 MG TABLET GT (20:29)
[2023-12-01] MEDS: INSULIN GLARGINE 100 UNIT/ML INSULN.PEN 30 UNIT SC (20:32)
[2023-12-02] VITALS (9 sets, daily range): BP systolic 96–144; BP diastolic 63–80; PULSE 48–83; RESP 16–18; TEMP 36.1–36.3; O2SAT 96–99
[2023-12-02] MEDS: ALBUTEROL INHALER 200 PUFF/INH INHALER INH ×4 (00:10→19:12)
[2023-12-02] MEDS: IPRATROPIUM BROMIDE 200 PUFF/INH INHALER INH ×4 (00:10→19:12)
[2023-12-02] MEDS: CARVEDILOL 3.125 MG TABLET GT (09:04)
[2023-12-02] MEDS: CYANOCOBALAMIN (VITAMIN B-12) 500 MCG TABLET 1000 MCG GT (09:05)
[2023-12-02] MEDS: DEXLANSOPRAZOLE 30 MG PO (09:06)
[2023-12-02] MEDS: MULTIVITAMIN W MINERALS 1 EACH TABLET GT (09:06)
[2023-12-02] MEDS: MAGNESIUM HYDROXIDE 30 ML ORAL SUSP ML GT (09:06)
--- NOTE | 2023-12-02 10:40 | CHAP ---
Patient was visited by the Spiritual Care Volunteer who prayed for them. (Volunteer was in the hospital from 10:15-10:40).
--- NOTE | 2023-12-02 12:12 | PC.NURSE ---
Supervisor [employer] Pharmacist MRR
--- NOTE | 2023-12-02 14:15 | PD.SAPROG ---
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 No new issues. Prognosis for independent living is poor Plan: Current treatment reviewed and continued
[2023-12-02] MEDS: ATORVASTATIN 40 MG TABLET GT (20:18)
[2023-12-02] MEDS: INSULIN GLARGINE 100 UNIT/ML INSULN.PEN 30 UNIT SC (20:18)
[2023-12-03] VITALS (8 sets, daily range): BP systolic 106–130; BP diastolic 61–91; PULSE 55–76; RESP 16–18; TEMP 36.1–36.4; O2SAT 97–98
[2023-12-03] MEDS: IPRATROPIUM BROMIDE 200 PUFF/INH INHALER INH ×2 (06:50→13:41)
[2023-12-03] MEDS: ALBUTEROL INHALER 200 PUFF/INH INHALER INH ×2 (06:50→12:41)
[2023-12-03] MEDS: CARVEDILOL 3.125 MG TABLET GT (08:47)
[2023-12-03] MEDS: DEXLANSOPRAZOLE 30 MG PO (08:48)
[2023-12-03] MEDS: CYANOCOBALAMIN (VITAMIN B-12) 500 MCG TABLET 1000 MCG GT (08:48)
[2023-12-03] MEDS: MULTIVITAMIN W MINERALS 1 EACH TABLET GT (09:00)
[2023-12-03] MEDS: ATORVASTATIN 40 MG TABLET GT (20:52)
[2023-12-04] VITALS (9 sets, daily range): BP systolic 105–148; BP diastolic 43–81; PULSE 61–78; RESP 16–18; TEMP 36.2–36.7; O2SAT 96–99
[2023-12-04] MEDS: ALBUTEROL INHALER 200 PUFF/INH INHALER INH ×4 (00:09→19:25)
[2023-12-04] MEDS: IPRATROPIUM BROMIDE 200 PUFF/INH INHALER INH ×4 (00:09→19:25)
[2023-12-04] MEDS: CYANOCOBALAMIN (VITAMIN B-12) 500 MCG TABLET 1000 MCG GT (09:34)
[2023-12-04] MEDS: DEXLANSOPRAZOLE 30 MG PO (09:34)
[2023-12-04] MEDS: CARVEDILOL 3.125 MG TABLET GT (09:34)
[2023-12-04] MEDS: MULTIVITAMIN W MINERALS 1 EACH TABLET GT (09:34)
[2023-12-04] MEDS: ATORVASTATIN 40 MG TABLET GT (21:21)
[2023-12-04] MEDS: INSULIN GLARGINE 100 UNIT/ML INSULN.PEN 30 UNIT SC (21:22)
[2023-12-05] VITALS (10 sets, daily range): BP systolic 100–151; BP diastolic 42–86; PULSE 55–74; RESP 18–20; TEMP 36.1–36.4; O2SAT 96–98
[2023-12-05] MEDS: IPRATROPIUM BROMIDE 200 PUFF/INH INHALER INH ×3 (01:15→19:10)
[2023-12-05] MEDS: ALBUTEROL INHALER 200 PUFF/INH INHALER INH ×4 (01:15→15:10)
[2023-12-05] MEDS: CARVEDILOL 3.125 MG TABLET GT (08:34)
[2023-12-05] MEDS: MULTIVITAMIN W MINERALS 1 EACH TABLET GT (08:35)
[2023-12-05] MEDS: CYANOCOBALAMIN (VITAMIN B-12) 500 MCG TABLET 1000 MCG GT (08:35)
[2023-12-05] MEDS: DEXLANSOPRAZOLE 30 MG PO (08:35)
[2023-12-05] MEDS: ATORVASTATIN 40 MG TABLET GT (20:40)
[2023-12-05] MEDS: INSULIN GLARGINE 100 UNIT/ML INSULN.PEN 30 UNIT SC (21:00)
[2023-12-06] VITALS (11 sets, daily range): BP systolic 100–139; BP diastolic 56–72; PULSE 46–70; RESP 16–20; TEMP 36–36.3; O2SAT 97–99
[2023-12-06] MEDS: IPRATROPIUM BROMIDE 200 PUFF/INH INHALER INH (01:55)
[2023-12-06] MEDS: ALBUTEROL INHALER 200 PUFF/INH INHALER INH ×3 (07:13→18:05)
[2023-12-06] MEDS: CARVEDILOL 3.125 MG TABLET GT (09:43)
[2023-12-06] MEDS: DEXLANSOPRAZOLE 30 MG PO (09:44)
[2023-12-06] MEDS: MULTIVITAMIN W MINERALS 1 EACH TABLET GT (09:44)
[2023-12-06] MEDS: CYANOCOBALAMIN (VITAMIN B-12) 500 MCG TABLET 1000 MCG GT (09:44)
[2023-12-06] MEDS: ATORVASTATIN 40 MG TABLET GT (20:33)
[2023-12-06] MEDS: INSULIN GLARGINE 100 UNIT/ML INSULN.PEN 30 UNIT SC (21:05)
[2023-12-07] VITALS (10 sets, daily range): BP systolic 93–110; BP diastolic 52–67; PULSE 47–92; RESP 16–177; TEMP 36.1–36.2; O2SAT 96–99
[2023-12-07] MEDS: ALBUTEROL INHALER 200 PUFF/INH INHALER INH ×4 (01:30→19:15)
[2023-12-07] MEDS: CARVEDILOL 3.125 MG TABLET GT (09:42)
[2023-12-07] MEDS: CYANOCOBALAMIN (VITAMIN B-12) 500 MCG TABLET 1000 MCG GT (09:42)
[2023-12-07] MEDS: MULTIVITAMIN W MINERALS 1 EACH TABLET GT (09:43)
[2023-12-07] MEDS: DEXLANSOPRAZOLE 30 MG PO (09:43)
[2023-12-07] MEDS: ATORVASTATIN 40 MG TABLET GT (20:17)
[2023-12-07] MEDS: INSULIN GLARGINE 100 UNIT/ML INSULN.PEN 30 UNIT SC (21:10)
[2023-12-08] VITALS (8 sets, daily range): BP systolic 97–135; BP diastolic 58–81; PULSE 50–77; RESP 17–18; TEMP 36.1–36.2; O2SAT 96–98
[2023-12-08] MEDS: ALBUTEROL INHALER 200 PUFF/INH INHALER INH ×4 (01:05→21:10)
[2023-12-08] MEDS: MULTIVITAMIN W MINERALS 1 EACH TABLET GT (08:23)
[2023-12-08] MEDS: DEXLANSOPRAZOLE 30 MG PO (08:23)
[2023-12-08] MEDS: CARVEDILOL 3.125 MG TABLET GT (08:23)
[2023-12-08] MEDS: CYANOCOBALAMIN (VITAMIN B-12) 500 MCG TABLET 1000 MCG GT (08:23)
[2023-12-08] MEDS: ATORVASTATIN 40 MG TABLET GT (20:26)
[2023-12-08] MEDS: INSULIN GLARGINE 100 UNIT/ML INSULN.PEN 30 UNIT SC (20:26)
[2023-12-09] VITALS (10 sets, daily range): BP systolic 107–136; BP diastolic 67–78; PULSE 61–80; RESP 18–19; TEMP 36–36.3; O2SAT 96–99
[2023-12-09] MEDS: ALBUTEROL INHALER 200 PUFF/INH INHALER INH ×4 (00:15→19:15)
[2023-12-09] MEDS: IPRATROPIUM BROMIDE 200 PUFF/INH INHALER INH ×2 (07:05→12:26)
[2023-12-09] MEDS: CARVEDILOL 3.125 MG TABLET GT (09:05)
[2023-12-09] MEDS: CYANOCOBALAMIN (VITAMIN B-12) 500 MCG TABLET 1000 MCG GT (09:05)
[2023-12-09] MEDS: DEXLANSOPRAZOLE 30 MG PO (09:06)
[2023-12-09] MEDS: MULTIVITAMIN W MINERALS 1 EACH TABLET GT (09:06)
[2023-12-09] MEDS: INSULIN GLARGINE 100 UNIT/ML INSULN.PEN 30 UNIT SC (20:37)
[2023-12-09] MEDS: ATORVASTATIN 40 MG TABLET GT (20:37)
[2023-12-10] VITALS (10 sets, daily range): BP systolic 104–150; BP diastolic 68–88; PULSE 59–96; RESP 18–20; TEMP 36–36.8; O2SAT 97–100
[2023-12-10] MEDS: ALBUTEROL INHALER 200 PUFF/INH INHALER INH ×4 (00:40→20:10)
[2023-12-10] MEDS: CYANOCOBALAMIN (VITAMIN B-12) 500 MCG TABLET 1000 MCG GT (09:02)
[2023-12-10] MEDS: MULTIVITAMIN W MINERALS 1 EACH TABLET GT (09:03)
[2023-12-10] MEDS: DEXLANSOPRAZOLE 30 MG PO (09:03)
--- NOTE | 2023-12-10 11:45 | CHAP ---
Patient was visited by the Spiritual Care Volunteer who prayed for them. (Volunteer was in the hospital from 10:10-11:45).
[2023-12-10] MEDS: IPRATROPIUM BROMIDE 200 PUFF/INH INHALER INH (20:10)
[2023-12-10] MEDS: ATORVASTATIN 40 MG TABLET GT (20:46)
[2023-12-10] MEDS: INSULIN GLARGINE 100 UNIT/ML INSULN.PEN 30 UNIT SC (21:22)
--- NOTE | 2023-12-10 22:34 | PD.SAPROG ---
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 No new issues. Prognosis for independent living is poor Plan: Current treatment reviewed and continued
[2023-12-11] VITALS (8 sets, daily range): BP systolic 98–132; BP diastolic 60–85; PULSE 58–70; RESP 17–18; TEMP 36–36.1; O2SAT 96–99
[2023-12-11] MEDS: IPRATROPIUM BROMIDE 200 PUFF/INH INHALER INH ×4 (01:20→18:38)
[2023-12-11] MEDS: ALBUTEROL INHALER 200 PUFF/INH INHALER INH ×4 (01:20→18:38)
[2023-12-11] MEDS: CYANOCOBALAMIN (VITAMIN B-12) 500 MCG TABLET 1000 MCG GT (08:59)
[2023-12-11] MEDS: DEXLANSOPRAZOLE 30 MG PO (09:00)
[2023-12-11] MEDS: MULTIVITAMIN W MINERALS 1 EACH TABLET GT (09:00)
[2023-12-11] MEDS: ATORVASTATIN 40 MG TABLET GT (20:39)
[2023-12-11] MEDS: INSULIN GLARGINE 100 UNIT/ML INSULN.PEN 30 UNIT SC (21:14)
[2023-12-12] VITALS (7 sets, daily range): BP systolic 101–122; BP diastolic 62–76; PULSE 59–75; RESP 17–18; TEMP 36.1–36.3; O2SAT 96–100
[2023-12-12] MEDS: ALBUTEROL INHALER 200 PUFF/INH INHALER INH ×4 (00:40→19:32)
[2023-12-12] MEDS: IPRATROPIUM BROMIDE 200 PUFF/INH INHALER INH ×4 (00:40→19:32)
[2023-12-12] MEDS: CARVEDILOL 3.125 MG TABLET GT (08:14)
[2023-12-12] MEDS: MULTIVITAMIN W MINERALS 1 EACH TABLET GT (08:15)
[2023-12-12] MEDS: DEXLANSOPRAZOLE 30 MG PO (08:15)
[2023-12-12] MEDS: CYANOCOBALAMIN (VITAMIN B-12) 500 MCG TABLET 1000 MCG GT (08:15)
--- NOTE | 2023-12-12 11:29 | CHAP ---
Patient was visited by the Spiritual Care Volunteer who prayed for them. (Volunteer was in the hospital from 09:32-11:29).
[2023-12-12] MEDS: ATORVASTATIN 40 MG TABLET GT (20:30)
[2023-12-12] MEDS: INSULIN GLARGINE 100 UNIT/ML INSULN.PEN 30 UNIT SC (21:20)
[2023-12-13] VITALS (8 sets, daily range): BP systolic 124–134; BP diastolic 62–82; PULSE 59–75; RESP 18–20; TEMP 36–36.4; O2SAT 95–99
[2023-12-13] MEDS: IPRATROPIUM BROMIDE 200 PUFF/INH INHALER INH ×4 (00:55→18:50)
[2023-12-13] MEDS: ALBUTEROL INHALER 200 PUFF/INH INHALER INH ×4 (00:55→18:50)
[2023-12-13] MEDS: CYANOCOBALAMIN (VITAMIN B-12) 500 MCG TABLET 1000 MCG GT (08:31)
[2023-12-13] MEDS: CARVEDILOL 3.125 MG TABLET GT (08:31)
[2023-12-13] MEDS: MULTIVITAMIN W MINERALS 1 EACH TABLET GT (08:32)
[2023-12-13] MEDS: DEXLANSOPRAZOLE 30 MG PO (08:32)
--- NOTE | 2023-12-13 13:46 | PC.SS ---
Room visit: Resident is laying in bed with head of the bed elevated with call light properly placed with no signs of distress. Resident remains in current care with no changes in care or condition. He has trach in place on blow by with GT for medication and nutrition. Resident is total care unable to make needs known. Resident will continue to have all subacute care needs done by staff. This SSD will make daily contact and monitor for changes in care or condition.
--- NOTE | 2023-12-13 14:41 | PC.SS ---
Resident seen by Bend Sorter for routine toe nail trim, no new orders to continue current care.
[2023-12-13] MEDS: ATORVASTATIN 40 MG TABLET GT (20:13)
[2023-12-13] MEDS: INSULIN GLARGINE 100 UNIT/ML INSULN.PEN 30 UNIT SC (20:50)
[2023-12-14] VITALS (9 sets, daily range): BP systolic 110–132; BP diastolic 58–82; PULSE 56–85; RESP 18–20; TEMP 36.1–36.6; O2SAT 94–99
[2023-12-14] MEDS: ALBUTEROL INHALER 200 PUFF/INH INHALER INH ×4 (00:20→19:50)
[2023-12-14] MEDS: IPRATROPIUM BROMIDE 200 PUFF/INH INHALER INH ×3 (06:08→19:50)
[2023-12-14] MEDS: CARVEDILOL 3.125 MG TABLET GT (08:43)
[2023-12-14] MEDS: CYANOCOBALAMIN (VITAMIN B-12) 500 MCG TABLET 1000 MCG GT (08:43)
[2023-12-14] MEDS: MULTIVITAMIN W MINERALS 1 EACH TABLET GT (08:44)
[2023-12-14] MEDS: DEXLANSOPRAZOLE 30 MG PO (08:44)
[2023-12-14] MEDS: INSULIN GLARGINE 100 UNIT/ML INSULN.PEN 30 UNIT SC (21:19)
[2023-12-14] MEDS: ATORVASTATIN 40 MG TABLET GT (21:19)
--- NOTE | 2023-12-14 21:30 | PD.SAPROG ---
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 No new issues. Prognosis for independent living is poor Plan: Current treatment reviewed and continued
[2023-12-15] VITALS (9 sets, daily range): BP systolic 103–133; BP diastolic 56–75; PULSE 51–72; RESP 16–18; TEMP 36.1–36.3; O2SAT 96–98
[2023-12-15] MEDS: ALBUTEROL INHALER 200 PUFF/INH INHALER INH ×4 (00:20→19:10)
[2023-12-15] MEDS: IPRATROPIUM BROMIDE 200 PUFF/INH INHALER INH ×4 (00:20→19:10)
[2023-12-15] MEDS: CARVEDILOL 3.125 MG TABLET GT (09:13)
[2023-12-15] MEDS: DEXLANSOPRAZOLE 30 MG PO (09:15)
[2023-12-15] MEDS: MULTIVITAMIN W MINERALS 1 EACH TABLET GT (09:15)
[2023-12-15] MEDS: CYANOCOBALAMIN (VITAMIN B-12) 500 MCG TABLET 1000 MCG GT (09:15)
[2023-12-15] MEDS: ATORVASTATIN 40 MG TABLET GT (20:22)
[2023-12-15] MEDS: INSULIN GLARGINE 100 UNIT/ML INSULN.PEN 30 UNIT SC (21:07)
[2023-12-16] VITALS (9 sets, daily range): BP systolic 95–130; BP diastolic 68–81; PULSE 51–85; RESP 17–20; TEMP 35.8–36.3; O2SAT 96–99
[2023-12-16] MEDS: ALBUTEROL INHALER 200 PUFF/INH INHALER INH ×4 (01:05→18:25)
[2023-12-16] MEDS: IPRATROPIUM BROMIDE 200 PUFF/INH INHALER INH ×4 (01:05→18:25)
[2023-12-16] MEDS: CARVEDILOL 3.125 MG TABLET GT (08:18)
[2023-12-16] MEDS: CYANOCOBALAMIN (VITAMIN B-12) 500 MCG TABLET 1000 MCG GT (08:18)
[2023-12-16] MEDS: MULTIVITAMIN W MINERALS 1 EACH TABLET GT (08:19)
[2023-12-16] MEDS: DEXLANSOPRAZOLE 30 MG PO (08:19)
--- NOTE | 2023-12-16 15:22 | CHAP ---
10:00 AM Visited by spiritual care volunteer Provided prayer for Patient.
[2023-12-16] MEDS: ATORVASTATIN 40 MG TABLET GT (21:22)
[2023-12-16] MEDS: INSULIN GLARGINE 100 UNIT/ML INSULN.PEN 30 UNIT SC (21:25)
[2023-12-17] VITALS (9 sets, daily range): BP systolic 96–137; BP diastolic 54–76; PULSE 51–82; RESP 14–20; TEMP 36–36.6; O2SAT 94–99
[2023-12-17] MEDS: ALBUTEROL INHALER 200 PUFF/INH INHALER INH ×4 (01:15→18:45)
[2023-12-17] MEDS: IPRATROPIUM BROMIDE 200 PUFF/INH INHALER INH ×4 (01:15→18:45)
[2023-12-17] MEDS: CYANOCOBALAMIN (VITAMIN B-12) 500 MCG TABLET 1000 MCG GT (08:38)
[2023-12-17] MEDS: CARVEDILOL 3.125 MG TABLET GT (08:38)
[2023-12-17] MEDS: DEXLANSOPRAZOLE 30 MG PO (08:39)
[2023-12-17] MEDS: MULTIVITAMIN W MINERALS 1 EACH TABLET GT (08:39)
--- NOTE | 2023-12-17 12:00 | CHAP ---
Patient was visited by the Spiritual Care Volunteer who prayed for them. (Volunteer was in the hospital from 10:05-12:00)
[2023-12-17] MEDS: ATORVASTATIN 40 MG TABLET GT (21:37)
[2023-12-17] MEDS: INSULIN GLARGINE 100 UNIT/ML INSULN.PEN 30 UNIT SC (21:37)
[2023-12-18] VITALS (9 sets, daily range): BP systolic 94–149; BP diastolic 70–88; PULSE 56–99; RESP 16–20; TEMP 36–36.7; O2SAT 94–100
[2023-12-18] MEDS: ALBUTEROL INHALER 200 PUFF/INH INHALER INH ×4 (01:35→19:00)
[2023-12-18] MEDS: IPRATROPIUM BROMIDE 200 PUFF/INH INHALER INH ×4 (01:35→19:00)
[2023-12-18] MEDS: MULTIVITAMIN W MINERALS 1 EACH TABLET GT (08:41)
[2023-12-18] MEDS: DEXLANSOPRAZOLE 30 MG PO (08:41)
[2023-12-18] MEDS: CYANOCOBALAMIN (VITAMIN B-12) 500 MCG TABLET 1000 MCG GT (08:41)
[2023-12-18] MEDS: ATORVASTATIN 40 MG TABLET GT (20:44)
[2023-12-18] MEDS: INSULIN GLARGINE 100 UNIT/ML INSULN.PEN 30 UNIT SC (20:44)
--- NOTE | 2023-12-18 23:39 | PD.SAPROG ---
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 No new issues. Prognosis for independent living is poor Plan: Current treatment reviewed and continued
[2023-12-19] VITALS (9 sets, daily range): BP systolic 99–130; BP diastolic 42–71; PULSE 50–86; RESP 16–20; TEMP 35.9–36.6; O2SAT 95–100
[2023-12-19] MEDS: ALBUTEROL INHALER 200 PUFF/INH INHALER INH ×4 (00:40→19:35)
[2023-12-19] MEDS: IPRATROPIUM BROMIDE 200 PUFF/INH INHALER INH ×4 (00:40→19:35)
[2023-12-19] MEDS: CARVEDILOL 3.125 MG TABLET GT (08:41)
[2023-12-19] MEDS: CYANOCOBALAMIN (VITAMIN B-12) 500 MCG TABLET 1000 MCG GT (08:43)
[2023-12-19] MEDS: DEXLANSOPRAZOLE 30 MG PO (08:44)
[2023-12-19] MEDS: MULTIVITAMIN W MINERALS 1 EACH TABLET GT (08:44)
--- NOTE | 2023-12-19 11:33 | CHAP ---
Patient was visited by the Spiritual Care Volunteer who prayed for them. (Volunteer was in the hospital from 09:50-11:33)
[2023-12-19] MEDS: ATORVASTATIN 40 MG TABLET GT (21:39)
[2023-12-19] MEDS: INSULIN GLARGINE 100 UNIT/ML INSULN.PEN 30 UNIT SC (21:40)
[2023-12-20] VITALS (9 sets, daily range): BP systolic 101–144; BP diastolic 60–74; PULSE 51–94; RESP 16–20; TEMP 36.1–36.6; O2SAT 92–100
[2023-12-20] MEDS: ALBUTEROL INHALER 200 PUFF/INH INHALER INH ×4 (01:30→19:25)
[2023-12-20] MEDS: IPRATROPIUM BROMIDE 200 PUFF/INH INHALER INH ×4 (01:30→19:25)
[2023-12-20] MEDS: MULTIVITAMIN W MINERALS 1 EACH TABLET GT (08:36)
[2023-12-20] MEDS: DEXLANSOPRAZOLE 30 MG PO (08:36)
[2023-12-20] MEDS: CARVEDILOL 3.125 MG TABLET GT (08:36)
[2023-12-20] MEDS: CYANOCOBALAMIN (VITAMIN B-12) 500 MCG TABLET 1000 MCG GT (08:36)
[2023-12-20] MEDS: ATORVASTATIN 40 MG TABLET GT (20:29)
[2023-12-20] MEDS: INSULIN GLARGINE 100 UNIT/ML INSULN.PEN 30 UNIT SC (21:05)
[2023-12-21] VITALS (10 sets, daily range): BP systolic 100–129; BP diastolic 55–63; PULSE 56–91; RESP 16–96; TEMP 36–36.3; O2SAT 96–99
[2023-12-21] MEDS: IPRATROPIUM BROMIDE 200 PUFF/INH INHALER INH ×4 (00:54→18:39)
[2023-12-21] MEDS: ALBUTEROL INHALER 200 PUFF/INH INHALER INH ×3 (00:54→18:39)
[2023-12-21] MEDS: CYANOCOBALAMIN (VITAMIN B-12) 500 MCG TABLET 1000 MCG GT (08:37)
[2023-12-21] MEDS: DEXLANSOPRAZOLE 30 MG PO (08:37)
[2023-12-21] MEDS: MULTIVITAMIN W MINERALS 1 EACH TABLET GT (08:38)
[2023-12-21] MEDS: ATORVASTATIN 40 MG TABLET GT (20:26)
[2023-12-21] MEDS: INSULIN GLARGINE 100 UNIT/ML INSULN.PEN 30 UNIT SC (20:26)
[2023-12-22] VITALS (9 sets, daily range): BP systolic 96–138; BP diastolic 51–77; PULSE 48–71; RESP 16–20; TEMP 36.1–36.3; O2SAT 96–98
[2023-12-22] MEDS: IPRATROPIUM BROMIDE 200 PUFF/INH INHALER INH ×3 (00:21→18:45)
[2023-12-22] MEDS: ALBUTEROL INHALER 200 PUFF/INH INHALER INH ×3 (00:21→18:45)
[2023-12-22] MEDS: CYANOCOBALAMIN (VITAMIN B-12) 500 MCG TABLET 1000 MCG GT (08:26)
[2023-12-22] MEDS: DEXLANSOPRAZOLE 30 MG PO (08:28)
[2023-12-22] MEDS: MULTIVITAMIN W MINERALS 1 EACH TABLET GT (08:29)
--- NOTE | 2023-12-22 15:30 | PD.SAPROG ---
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 No new issues. Prognosis for independent living is poor Plan: Current treatment reviewed and continued
[2023-12-22] MEDS: ATORVASTATIN 40 MG TABLET GT (20:47)
[2023-12-22] MEDS: INSULIN GLARGINE 100 UNIT/ML INSULN.PEN 30 UNIT SC (20:47)
[2023-12-23] VITALS (9 sets, daily range): BP systolic 91–118; BP diastolic 56–65; PULSE 40–68; RESP 16–18; TEMP 36–36.2; O2SAT 97–100
[2023-12-23] MEDS: ALBUTEROL INHALER 200 PUFF/INH INHALER INH ×4 (00:19→19:20)
[2023-12-23] MEDS: IPRATROPIUM BROMIDE 200 PUFF/INH INHALER INH ×4 (00:19→19:20)
[2023-12-23] MEDS: CYANOCOBALAMIN (VITAMIN B-12) 500 MCG TABLET 1000 MCG GT (08:20)
[2023-12-23] MEDS: DEXLANSOPRAZOLE 30 MG PO (08:20)
[2023-12-23] MEDS: MULTIVITAMIN W MINERALS 1 EACH TABLET GT (08:21)
--- NOTE | 2023-12-23 11:38 | CHAP ---
Patient was visited by Spiritual Care Volunteer who prayed for them. (Volunteer was in the hospital from 10:48-11:38)
[2023-12-23] MEDS: ATORVASTATIN 40 MG TABLET GT (20:31)
[2023-12-23] MEDS: INSULIN GLARGINE 100 UNIT/ML INSULN.PEN 30 UNIT SC (20:35)
[2023-12-24] VITALS (9 sets, daily range): BP systolic 104–130; BP diastolic 59–81; PULSE 52–67; RESP 18–97; TEMP 36–36.4; O2SAT 96–99
[2023-12-24] MEDS: IPRATROPIUM BROMIDE 200 PUFF/INH INHALER INH ×4 (01:10→18:38)
[2023-12-24] MEDS: ALBUTEROL INHALER 200 PUFF/INH INHALER INH ×4 (01:10→18:38)
[2023-12-24] MEDS: DEXLANSOPRAZOLE 30 MG PO (08:53)
[2023-12-24] MEDS: CYANOCOBALAMIN (VITAMIN B-12) 500 MCG TABLET 1000 MCG GT (08:53)
[2023-12-24] MEDS: MULTIVITAMIN W MINERALS 1 EACH TABLET GT (08:54)
--- NOTE | 2023-12-24 15:26 | PC.SS ---
Room visit: Resident is laying in bed with head of the bed elevated with call light properly placed. Resident has trach in place on blow by with GT in place for medication and nutrition. 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 Resident ryan Gregory is decision maker. Resident will remain in current care and will continue to have all subacute care needs met by staff.
[2023-12-24] MEDS: ATORVASTATIN 40 MG TABLET GT (20:35)
[2023-12-24] MEDS: INSULIN GLARGINE 100 UNIT/ML INSULN.PEN 30 UNIT SC (21:05)
[2023-12-25] VITALS (8 sets, daily range): BP systolic 111–127; BP diastolic 63–78; PULSE 51–86; RESP 18–20; TEMP 35.9–36.4; O2SAT 96–99
[2023-12-25] MEDS: ALBUTEROL INHALER 200 PUFF/INH INHALER INH ×4 (00:26→19:10)
[2023-12-25] MEDS: IPRATROPIUM BROMIDE 200 PUFF/INH INHALER INH ×4 (00:26→19:10)
[2023-12-25] MEDS: CYANOCOBALAMIN (VITAMIN B-12) 500 MCG TABLET 1000 MCG GT (08:32)
[2023-12-25] MEDS: CARVEDILOL 3.125 MG TABLET GT (08:32)
[2023-12-25] MEDS: DEXLANSOPRAZOLE 30 MG PO (08:33)
[2023-12-25] MEDS: MULTIVITAMIN W MINERALS 1 EACH TABLET GT (08:33)
[2023-12-25] MEDS: ATORVASTATIN 40 MG TABLET GT (20:52)
[2023-12-25] MEDS: INSULIN GLARGINE 100 UNIT/ML INSULN.PEN 30 UNIT SC (21:24)
[2023-12-26] VITALS (9 sets, daily range): BP systolic 96–136; BP diastolic 67–79; PULSE 52–93; RESP 16–20; TEMP 36.1–36.6; O2SAT 98–99
[2023-12-26] MEDS: IPRATROPIUM BROMIDE 200 PUFF/INH INHALER INH ×4 (01:30→19:35)
[2023-12-26] MEDS: ALBUTEROL INHALER 200 PUFF/INH INHALER INH ×4 (01:30→19:35)
[2023-12-26] MEDS: CARVEDILOL 3.125 MG TABLET GT (08:18)
[2023-12-26] MEDS: MULTIVITAMIN W MINERALS 1 EACH TABLET GT (08:19)
[2023-12-26] MEDS: CYANOCOBALAMIN (VITAMIN B-12) 500 MCG TABLET 1000 MCG GT (08:19)
[2023-12-26] MEDS: DEXLANSOPRAZOLE 30 MG PO (08:19)
[2023-12-26] MEDS: ATORVASTATIN 40 MG TABLET GT (20:10)
[2023-12-26] MEDS: INSULIN GLARGINE 100 UNIT/ML INSULN.PEN 30 UNIT SC (21:11)
[2023-12-27] VITALS (9 sets, daily range): BP systolic 101–127; BP diastolic 52–75; PULSE 45–87; RESP 16–20; TEMP 36.1–36.3; O2SAT 98–100
[2023-12-27] MEDS: ALBUTEROL INHALER 200 PUFF/INH INHALER INH ×4 (00:15→18:10)
[2023-12-27] MEDS: IPRATROPIUM BROMIDE 200 PUFF/INH INHALER INH ×4 (00:15→18:10)
[2023-12-27] MEDS: CARVEDILOL 3.125 MG TABLET GT (08:31)
[2023-12-27] MEDS: CYANOCOBALAMIN (VITAMIN B-12) 500 MCG TABLET 1000 MCG GT (08:31)
[2023-12-27] MEDS: DEXLANSOPRAZOLE 30 MG PO (08:32)
[2023-12-27] MEDS: MULTIVITAMIN W MINERALS 1 EACH TABLET GT (08:32)
[2023-12-27] MEDS: INSULIN GLARGINE 100 UNIT/ML INSULN.PEN 30 UNIT SC (21:08)
[2023-12-27] MEDS: ATORVASTATIN 40 MG TABLET GT (21:09)
[2023-12-28] VITALS (9 sets, daily range): BP systolic 107–145; BP diastolic 56–84; PULSE 60–89; RESP 16–20; TEMP 36.2–36.3; O2SAT 95–100
[2023-12-28] MEDS: ALBUTEROL INHALER 200 PUFF/INH INHALER INH ×3 (00:15→19:22)
[2023-12-28] MEDS: IPRATROPIUM BROMIDE 200 PUFF/INH INHALER INH ×3 (00:15→19:22)
[2023-12-28] MEDS: CARVEDILOL 3.125 MG TABLET GT (08:17)
[2023-12-28] MEDS: CYANOCOBALAMIN (VITAMIN B-12) 500 MCG TABLET 1000 MCG GT (08:18)
[2023-12-28] MEDS: MULTIVITAMIN W MINERALS 1 EACH TABLET GT (08:18)
[2023-12-28] MEDS: DEXLANSOPRAZOLE 30 MG PO (08:18)
--- NOTE | 2023-12-28 08:25 | CHAP ---
Patient was visited by a [facility] Spiritual Care volunteer on 12/26/2023 between 0225 and 1209 and received comfort, encouragement and/or prayer.
[2023-12-28] MEDS: ATORVASTATIN 40 MG TABLET GT (20:50)
[2023-12-28] MEDS: INSULIN GLARGINE 100 UNIT/ML INSULN.PEN 30 UNIT SC (21:31)
--- NOTE | 2023-12-28 22:36 | PD.SAPROG ---
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 No new issues. Prognosis for independent living is poor Plan: Current treatment reviewed and continued
[2023-12-29] VITALS (9 sets, daily range): BP systolic 104–123; BP diastolic 68–77; PULSE 59–74; RESP 17–20; TEMP 36–36.3; O2SAT 95–100
[2023-12-29] MEDS: ALBUTEROL INHALER 200 PUFF/INH INHALER INH ×4 (01:23→19:35)
[2023-12-29] MEDS: IPRATROPIUM BROMIDE 200 PUFF/INH INHALER INH ×4 (01:23→19:35)
[2023-12-29] MEDS: CARVEDILOL 3.125 MG TABLET GT (08:50)
[2023-12-29] MEDS: CYANOCOBALAMIN (VITAMIN B-12) 500 MCG TABLET 1000 MCG GT (08:51)
[2023-12-29] MEDS: DEXLANSOPRAZOLE 30 MG PO (08:52)
[2023-12-29] MEDS: MULTIVITAMIN W MINERALS 1 EACH TABLET GT (08:53)
[2023-12-29] MEDS: INSULIN GLARGINE 100 UNIT/ML INSULN.PEN 30 UNIT SC (21:00)
[2023-12-29] MEDS: ATORVASTATIN 40 MG TABLET GT (21:08)
[2023-12-30] VITALS (9 sets, daily range): BP systolic 90–127; BP diastolic 58–75; PULSE 49–76; RESP 16–20; TEMP 36.1–36.4; O2SAT 95–100
[2023-12-30] MEDS: ALBUTEROL INHALER 200 PUFF/INH INHALER INH ×4 (01:15→19:20)
[2023-12-30] MEDS: IPRATROPIUM BROMIDE 200 PUFF/INH INHALER INH ×4 (01:15→19:20)
[2023-12-30] MEDS: DEXLANSOPRAZOLE 30 MG PO (09:01)
[2023-12-30] MEDS: MULTIVITAMIN W MINERALS 1 EACH TABLET GT (09:01)
[2023-12-30] MEDS: CYANOCOBALAMIN (VITAMIN B-12) 500 MCG TABLET 1000 MCG GT (09:01)
--- NOTE | 2023-12-30 11:13 | CHAP ---
Patient was visited by the Spiritual Care Volunteer who prayed for them. (Volunteer was in the hospital from 10:30-11:13)
[2023-12-30] MEDS: ATORVASTATIN 40 MG TABLET GT (20:28)
[2023-12-30] MEDS: INSULIN GLARGINE 100 UNIT/ML INSULN.PEN 30 UNIT SC (21:00)
[2023-12-31] VITALS (8 sets, daily range): BP systolic 98–128; BP diastolic 48–62; PULSE 51–70; RESP 18–20; TEMP 35.9–36.3; O2SAT 95–99
[2023-12-31] MEDS: IPRATROPIUM BROMIDE 200 PUFF/INH INHALER INH ×4 (00:05→18:35)
[2023-12-31] MEDS: ALBUTEROL INHALER 200 PUFF/INH INHALER INH ×4 (00:05→18:35)
[2023-12-31] MEDS: DEXLANSOPRAZOLE 30 MG PO (08:29)
[2023-12-31] MEDS: CYANOCOBALAMIN (VITAMIN B-12) 500 MCG TABLET 1000 MCG GT (08:29)
[2023-12-31] MEDS: MULTIVITAMIN W MINERALS 1 EACH TABLET GT (08:30)
--- NOTE | 2023-12-31 10:45 | CHAP ---
Patient was visited by the Spiritual Care Volunteer who prayed for them, (Volunteer was in the hospital from 09:50-10:45).
--- NOTE | 2023-12-31 16:02 | PC.SS ---
Room visit: Resident is laying in bed with head of the bed elevated with call light properly placed with no signs of distress. Resident remains on blow by with trach in place and GT in place for medication and nutrition. Resident is total care no speech unable to make needs known. Resident will remain in current care and will continue to have all subacute care needs met by staff. Resident to be monitored for changes in mood and behavior.
[2023-12-31] MEDS: ATORVASTATIN 40 MG TABLET GT (20:30)
[2023-12-31] MEDS: INSULIN GLARGINE 100 UNIT/ML INSULN.PEN 30 UNIT SC (21:20)
[2024-01-01] VITALS (9 sets, daily range): BP systolic 99–122; BP diastolic 53–68; PULSE 52–69; RESP 16–20; TEMP 36–36.6; O2SAT 95–99
[2024-01-01] MEDS: ALBUTEROL INHALER 200 PUFF/INH INHALER INH ×4 (00:49→19:25)
[2024-01-01] MEDS: IPRATROPIUM BROMIDE 200 PUFF/INH INHALER INH ×4 (00:49→19:25)
[2024-01-01] MEDS: DEXLANSOPRAZOLE 30 MG PO (08:27)
[2024-01-01] MEDS: MULTIVITAMIN W MINERALS 1 EACH TABLET GT (08:27)
[2024-01-01] MEDS: CYANOCOBALAMIN (VITAMIN B-12) 500 MCG TABLET 1000 MCG GT (08:28)
[2024-01-01] MEDS: ATORVASTATIN 40 MG TABLET GT (20:33)
[2024-01-01] MEDS: INSULIN GLARGINE 100 UNIT/ML INSULN.PEN 30 UNIT SC (21:15)
--- NOTE | 2024-01-01 21:56 | PD.SAPROG ---
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 No new issues. Prognosis for independent living is poor Plan: Current treatment reviewed and continued
[2024-01-02] VITALS (9 sets, daily range): BP systolic 98–117; BP diastolic 62–78; PULSE 52–77; RESP 16–18; TEMP 35.9–36.2; O2SAT 98–99
[2024-01-02] MEDS: ALBUTEROL INHALER 200 PUFF/INH INHALER INH ×4 (01:47→19:35)
[2024-01-02] MEDS: IPRATROPIUM BROMIDE 200 PUFF/INH INHALER INH ×4 (01:47→19:35)
[2024-01-02] MEDS: DEXLANSOPRAZOLE 30 MG PO (08:51)
[2024-01-02] MEDS: CYANOCOBALAMIN (VITAMIN B-12) 500 MCG TABLET 1000 MCG GT (08:51)
[2024-01-02] MEDS: CARVEDILOL 3.125 MG TABLET GT (08:51)
[2024-01-02] MEDS: MULTIVITAMIN W MINERALS 1 EACH TABLET GT (08:53)
[2024-01-02] MEDS: ATORVASTATIN 40 MG TABLET GT (20:50)
[2024-01-02] MEDS: INSULIN GLARGINE 100 UNIT/ML INSULN.PEN 30 UNIT SC (21:30)
[2024-01-03] VITALS (9 sets, daily range): BP systolic 90–129; BP diastolic 49–77; PULSE 52–78; RESP 16–20; TEMP 36.1–36.3; O2SAT 97–99
[2024-01-03] MEDS: ALBUTEROL INHALER 200 PUFF/INH INHALER INH ×4 (00:54→18:55)
[2024-01-03] MEDS: IPRATROPIUM BROMIDE 200 PUFF/INH INHALER INH ×4 (00:54→18:55)
[2024-01-03] MEDS: DEXLANSOPRAZOLE 30 MG PO (08:28)
[2024-01-03] MEDS: CYANOCOBALAMIN (VITAMIN B-12) 500 MCG TABLET 1000 MCG GT (08:28)
[2024-01-03] MEDS: MULTIVITAMIN W MINERALS 1 EACH TABLET GT (08:29)
[2024-01-03] MEDS: ATORVASTATIN 40 MG TABLET GT (20:30)
[2024-01-03] MEDS: INSULIN GLARGINE 100 UNIT/ML INSULN.PEN 30 UNIT SC (21:05)
[2024-01-04] VITALS (9 sets, daily range): BP systolic 100–108; BP diastolic 57–72; PULSE 49–75; RESP 16–18; TEMP 36.1–36.3; O2SAT 97–100
[2024-01-04] MEDS: IPRATROPIUM BROMIDE 200 PUFF/INH INHALER INH ×4 (00:44→18:17)
[2024-01-04] MEDS: ALBUTEROL INHALER 200 PUFF/INH INHALER INH ×4 (00:44→18:17)
[2024-01-04] MEDS: CYANOCOBALAMIN (VITAMIN B-12) 500 MCG TABLET 1000 MCG GT (09:13)
[2024-01-04] MEDS: DEXLANSOPRAZOLE 30 MG PO (09:14)
[2024-01-04] MEDS: MULTIVITAMIN W MINERALS 1 EACH TABLET GT (09:14)
[2024-01-04] MEDS: ATORVASTATIN 40 MG TABLET GT (21:26)
[2024-01-04] MEDS: INSULIN GLARGINE 100 UNIT/ML INSULN.PEN 30 UNIT SC (21:28)
[2024-01-05] VITALS (9 sets, daily range): BP systolic 106–132; BP diastolic 45–75; PULSE 60–79; RESP 16–20; TEMP 36.1–36.7; O2SAT 95–98
[2024-01-05] MEDS: ALBUTEROL INHALER 200 PUFF/INH INHALER INH ×4 (00:20→18:40)
[2024-01-05] MEDS: IPRATROPIUM BROMIDE 200 PUFF/INH INHALER INH ×4 (00:20→18:40)
[2024-01-05] MEDS: CARVEDILOL 3.125 MG TABLET GT (08:59)
[2024-01-05] MEDS: CYANOCOBALAMIN (VITAMIN B-12) 500 MCG TABLET 1000 MCG GT (09:00)
[2024-01-05] MEDS: MULTIVITAMIN W MINERALS 1 EACH TABLET GT (09:00)
[2024-01-05] MEDS: DEXLANSOPRAZOLE 30 MG PO (09:00)
[2024-01-05] MEDS: ATORVASTATIN 40 MG TABLET GT (20:43)
--- NOTE | 2024-01-05 22:42 | PD.SAPROG ---
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 No new issues. Prognosis for independent living is poor Plan: Current treatment reviewed and continued
[2024-01-06] VITALS (9 sets, daily range): BP systolic 99–138; BP diastolic 51–75; PULSE 51–84; RESP 16–18; TEMP 35.8–36.1; O2SAT 97–100
[2024-01-06] MEDS: ALBUTEROL INHALER 200 PUFF/INH INHALER INH ×4 (00:25→19:03)
[2024-01-06] MEDS: IPRATROPIUM BROMIDE 200 PUFF/INH INHALER INH ×4 (00:25→19:03)
[2024-01-06] MEDS: CARVEDILOL 3.125 MG TABLET GT (09:14)
[2024-01-06] MEDS: CYANOCOBALAMIN (VITAMIN B-12) 500 MCG TABLET 1000 MCG GT (09:15)
[2024-01-06] MEDS: DEXLANSOPRAZOLE 30 MG PO (09:15)
[2024-01-06] MEDS: MULTIVITAMIN W MINERALS 1 EACH TABLET GT (09:15)
[2024-01-06] MEDS: ATORVASTATIN 40 MG TABLET GT (20:06)
[2024-01-06] MEDS: INSULIN GLARGINE 100 UNIT/ML INSULN.PEN 30 UNIT SC (20:15)
[2024-01-07] VITALS (8 sets, daily range): BP systolic 106–133; BP diastolic 54–72; PULSE 53–67; RESP 16–18; TEMP 35.9–36.3; O2SAT 92–100
[2024-01-07] MEDS: ALBUTEROL INHALER 200 PUFF/INH INHALER INH ×4 (01:31→19:47)
[2024-01-07] MEDS: IPRATROPIUM BROMIDE 200 PUFF/INH INHALER INH ×4 (01:31→19:47)
[2024-01-07] MEDS: CARVEDILOL 3.125 MG TABLET GT (09:04)
[2024-01-07] MEDS: CYANOCOBALAMIN (VITAMIN B-12) 500 MCG TABLET 1000 MCG GT (09:05)
[2024-01-07] MEDS: DEXLANSOPRAZOLE 30 MG PO (09:05)
[2024-01-07] MEDS: MULTIVITAMIN W MINERALS 1 EACH TABLET GT (09:05)
--- NOTE | 2024-01-07 14:33 | PC.SS ---
Room visit: Resident is laying in bed with head of the bed elevated with call light properly placed with no signs of distress. Resident remains on blow by with trach in place and GT for medication and nutrition. Resident is unable to make needs known, his son Colt is his decision maker. Resident will remain in current care and will continue to have all subacute care needs met by staff.
[2024-01-07] MEDS: ATORVASTATIN 40 MG TABLET GT (21:13)
[2024-01-07] MEDS: INSULIN GLARGINE 100 UNIT/ML INSULN.PEN 30 UNIT SC (21:17)
[2024-01-08] VITALS (9 sets, daily range): BP systolic 91–130; BP diastolic 60–75; PULSE 48–77; RESP 16–18; TEMP 36.2–36.4; O2SAT 93–100
[2024-01-08] MEDS: IPRATROPIUM BROMIDE 200 PUFF/INH INHALER INH ×4 (00:34→20:25)
[2024-01-08] MEDS: ALBUTEROL INHALER 200 PUFF/INH INHALER INH ×4 (00:34→20:25)
[2024-01-08] MEDS: MULTIVITAMIN W MINERALS 1 EACH TABLET GT (08:56)
[2024-01-08] MEDS: DEXLANSOPRAZOLE 30 MG PO (08:56)
[2024-01-08] MEDS: CYANOCOBALAMIN (VITAMIN B-12) 500 MCG TABLET 1000 MCG GT (08:56)
[2024-01-08] MEDS: ATORVASTATIN 40 MG TABLET GT (20:23)
[2024-01-08] MEDS: INSULIN GLARGINE 100 UNIT/ML INSULN.PEN 30 UNIT SC (21:48)
[2024-01-09] VITALS (9 sets, daily range): BP systolic 105–146; BP diastolic 55–80; PULSE 51–72; RESP 18–22; TEMP 36–36.2; O2SAT 94–100
[2024-01-09] MEDS: IPRATROPIUM BROMIDE 200 PUFF/INH INHALER INH ×4 (01:55→19:05)
[2024-01-09] MEDS: ALBUTEROL INHALER 200 PUFF/INH INHALER INH ×4 (01:55→19:05)
[2024-01-09] MEDS: CYANOCOBALAMIN (VITAMIN B-12) 500 MCG TABLET 1000 MCG GT (09:06)
[2024-01-09] MEDS: DEXLANSOPRAZOLE 30 MG PO (09:07)
[2024-01-09] MEDS: MULTIVITAMIN W MINERALS 1 EACH TABLET GT (09:07)
--- NOTE | 2024-01-09 15:20 | PD.SAPROG ---
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 No new issues. Prognosis for independent living is poor Plan: Current treatment reviewed and continued
[2024-01-09] MEDS: ATORVASTATIN 40 MG TABLET GT (20:46)
[2024-01-09] MEDS: INSULIN GLARGINE 100 UNIT/ML INSULN.PEN 30 UNIT SC (21:05)
[2024-01-10] VITALS (9 sets, daily range): BP systolic 95–138; BP diastolic 62–84; PULSE 53–74; RESP 17–20; TEMP 35.9–36.6; O2SAT 96–98
[2024-01-10] MEDS: ALBUTEROL INHALER 200 PUFF/INH INHALER INH ×3 (00:15→20:09)
[2024-01-10] MEDS: IPRATROPIUM BROMIDE 200 PUFF/INH INHALER INH ×3 (00:15→20:09)
[2024-01-10] MEDS: CARVEDILOL 3.125 MG TABLET GT (08:27)
[2024-01-10] MEDS: DEXLANSOPRAZOLE 30 MG PO (08:27)
[2024-01-10] MEDS: CYANOCOBALAMIN (VITAMIN B-12) 500 MCG TABLET 1000 MCG GT (08:27)
[2024-01-10] MEDS: INSULIN GLARGINE 100 UNIT/ML INSULN.PEN 30 UNIT SC (21:00)
[2024-01-10] MEDS: ATORVASTATIN 40 MG TABLET GT (21:01)
[2024-01-11] VITALS (9 sets, daily range): BP systolic 115–131; BP diastolic 66–76; PULSE 55–72; RESP 18–96; TEMP 36.1–36.3; O2SAT 96–100
[2024-01-11] MEDS: ALBUTEROL INHALER 200 PUFF/INH INHALER INH ×4 (00:46→18:37)
[2024-01-11] MEDS: IPRATROPIUM BROMIDE 200 PUFF/INH INHALER INH ×4 (00:46→18:37)
[2024-01-11] MEDS: DEXLANSOPRAZOLE 30 MG PO (09:24)
[2024-01-11] MEDS: CYANOCOBALAMIN (VITAMIN B-12) 500 MCG TABLET 1000 MCG GT (09:24)
[2024-01-11] MEDS: MULTIVITAMIN W MINERALS 1 EACH TABLET GT (09:25)
[2024-01-11] MEDS: ATORVASTATIN 40 MG TABLET GT (20:35)
[2024-01-11] MEDS: INSULIN GLARGINE 100 UNIT/ML INSULN.PEN 30 UNIT SC (21:00)
[2024-01-12] VITALS (9 sets, daily range): BP systolic 100–158; BP diastolic 60–77; PULSE 53–88; RESP 18–20; TEMP 35.9–36.4; O2SAT 95–100
[2024-01-12] MEDS: IPRATROPIUM BROMIDE 200 PUFF/INH INHALER INH ×4 (00:50→19:25)
[2024-01-12] MEDS: ALBUTEROL INHALER 200 PUFF/INH INHALER INH ×4 (00:50→19:25)
[2024-01-12] MEDS: CARVEDILOL 3.125 MG TABLET GT (08:50)
[2024-01-12] MEDS: CYANOCOBALAMIN (VITAMIN B-12) 500 MCG TABLET 1000 MCG GT (08:52)
[2024-01-12] MEDS: DEXLANSOPRAZOLE 30 MG PO (08:53)
[2024-01-12] MEDS: MULTIVITAMIN W MINERALS 1 EACH TABLET GT (08:54)
[2024-01-12] MEDS: ATORVASTATIN 40 MG TABLET GT (20:47)
[2024-01-12] MEDS: INSULIN GLARGINE 100 UNIT/ML INSULN.PEN 30 UNIT SC (21:00)
[2024-01-13] VITALS (10 sets, daily range): BP systolic 95–134; BP diastolic 51–65; PULSE 54–75; RESP 16–18; TEMP 36.1–36.3; O2SAT 97–99
[2024-01-13] MEDS: IPRATROPIUM BROMIDE 200 PUFF/INH INHALER INH ×4 (00:45→19:40)
[2024-01-13] MEDS: ALBUTEROL INHALER 200 PUFF/INH INHALER INH ×4 (00:45→19:40)
[2024-01-13] MEDS: CARVEDILOL 3.125 MG TABLET GT (08:51)
[2024-01-13] MEDS: CYANOCOBALAMIN (VITAMIN B-12) 500 MCG TABLET 1000 MCG GT (08:52)
[2024-01-13] MEDS: DEXLANSOPRAZOLE 30 MG PO (08:54)
--- NOTE | 2024-01-13 14:08 | PC.SS ---
Room visit: Resident is laying in bed with head of the bed elevated with call light properly placed with no signs of distress. Resident ryan Gregory is decision maker. Resident is total care unable to make needs known, he has trach in place on blow by and GT in place for medication and nutrition. Resident has no changes in care or condition, he will remain in current care and will continue to have all subacute care needs met by staff.
[2024-01-13] MEDS: ATORVASTATIN 40 MG TABLET GT (21:03)
[2024-01-13] MEDS: INSULIN GLARGINE 100 UNIT/ML INSULN.PEN 30 UNIT SC (21:05)
[2024-01-14] VITALS (9 sets, daily range): BP systolic 92–115; BP diastolic 42–66; PULSE 56–82; RESP 16–20; TEMP 36.1–36.2; O2SAT 97–100
[2024-01-14] MEDS: IPRATROPIUM BROMIDE 200 PUFF/INH INHALER INH ×4 (01:30→19:10)
[2024-01-14] MEDS: ALBUTEROL INHALER 200 PUFF/INH INHALER INH ×4 (01:30→19:10)
[2024-01-14] MEDS: CYANOCOBALAMIN (VITAMIN B-12) 500 MCG TABLET 1000 MCG GT (09:14)
[2024-01-14] MEDS: MULTIVITAMIN W MINERALS 1 EACH TABLET GT (09:15)
[2024-01-14] MEDS: DEXLANSOPRAZOLE 30 MG PO (09:15)
[2024-01-14] MEDS: ATORVASTATIN 40 MG TABLET GT (20:58)
[2024-01-14] MEDS: INSULIN GLARGINE 100 UNIT/ML INSULN.PEN 30 UNIT SC (21:00)
[2024-01-15] VITALS (9 sets, daily range): BP systolic 94–132; BP diastolic 46–78; PULSE 46–80; RESP 16–20; TEMP 36.1–36.4; O2SAT 96–99
[2024-01-15] MEDS: IPRATROPIUM BROMIDE 200 PUFF/INH INHALER INH ×4 (00:20→19:15)
[2024-01-15] MEDS: ALBUTEROL INHALER 200 PUFF/INH INHALER INH ×4 (00:20→19:15)
[2024-01-15] MEDS: CYANOCOBALAMIN (VITAMIN B-12) 500 MCG TABLET 1000 MCG GT (08:58)
[2024-01-15] MEDS: MULTIVITAMIN W MINERALS 1 EACH TABLET GT (08:59)
[2024-01-15] MEDS: DEXLANSOPRAZOLE 30 MG PO (08:59)
[2024-01-15] MEDS: ATORVASTATIN 40 MG TABLET GT (20:29)
[2024-01-15] MEDS: INSULIN GLARGINE 100 UNIT/ML INSULN.PEN 30 UNIT SC (20:57)
[2024-01-16] VITALS (10 sets, daily range): BP systolic 97–134; BP diastolic 55–73; PULSE 62–84; RESP 16–20; TEMP 36.1–36.7; O2SAT 97–100
[2024-01-16] MEDS: ALBUTEROL INHALER 200 PUFF/INH INHALER INH ×4 (00:48→18:57)
[2024-01-16] MEDS: IPRATROPIUM BROMIDE 200 PUFF/INH INHALER INH ×4 (00:48→18:57)
[2024-01-16] MEDS: CYANOCOBALAMIN (VITAMIN B-12) 500 MCG TABLET 1000 MCG GT (08:29)
[2024-01-16] MEDS: DEXLANSOPRAZOLE 30 MG PO (08:29)
[2024-01-16] MEDS: CARVEDILOL 3.125 MG TABLET GT (08:29)
[2024-01-16] MEDS: MULTIVITAMIN W MINERALS 1 EACH TABLET GT (08:30)
[2024-01-16] MEDS: CARBAMIDE PEROXIDE OTIC SOL 15 ML BTL 5 DROP BOTH EARS (09:00)
[2024-01-16] MEDS: INSULIN GLARGINE 100 UNIT/ML INSULN.PEN 30 UNIT SC (20:50)
[2024-01-16] MEDS: ATORVASTATIN 40 MG TABLET GT (20:50)
[2024-01-17] VITALS (8 sets, daily range): BP systolic 97–114; BP diastolic 54–68; PULSE 45–70; RESP 15–18; TEMP 35.9–36.1; O2SAT 96–100
[2024-01-17] MEDS: ALBUTEROL INHALER 200 PUFF/INH INHALER INH ×4 (00:50→19:20)
[2024-01-17] MEDS: IPRATROPIUM BROMIDE 200 PUFF/INH INHALER INH ×4 (00:50→19:20)
[2024-01-17] MEDS: MULTIVITAMIN W MINERALS 1 EACH TABLET GT (08:44)
[2024-01-17] MEDS: DEXLANSOPRAZOLE 30 MG PO (08:45)
[2024-01-17] MEDS: CYANOCOBALAMIN (VITAMIN B-12) 500 MCG TABLET 1000 MCG GT (08:45)
[2024-01-17] MEDS: ATORVASTATIN 40 MG TABLET GT (21:01)
[2024-01-17] MEDS: INSULIN GLARGINE 100 UNIT/ML INSULN.PEN 30 UNIT SC (21:16)
--- NOTE | 2024-01-17 22:26 | PD.SAPROG ---
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 No new issues. Prognosis for independent living is poor Plan: Current treatment reviewed and continued
[2024-01-18] VITALS (10 sets, daily range): BP systolic 96–132; BP diastolic 56–72; PULSE 55–72; RESP 16–19; TEMP 36.1–36.5; O2SAT 94–99
[2024-01-18] MEDS: ALBUTEROL INHALER 200 PUFF/INH INHALER INH ×4 (00:50→18:29)
[2024-01-18] MEDS: IPRATROPIUM BROMIDE 200 PUFF/INH INHALER INH ×4 (00:50→18:29)
[2024-01-18] MEDS: CARVEDILOL 3.125 MG TABLET GT (08:51)
[2024-01-18] MEDS: CYANOCOBALAMIN (VITAMIN B-12) 500 MCG TABLET 1000 MCG GT (08:52)
[2024-01-18] MEDS: DEXLANSOPRAZOLE 30 MG PO (08:52)
[2024-01-18] MEDS: MULTIVITAMIN W MINERALS 1 EACH TABLET GT (08:52)
[2024-01-18] MEDS: ATORVASTATIN 40 MG TABLET GT (20:57)
[2024-01-18] MEDS: INSULIN GLARGINE 100 UNIT/ML INSULN.PEN 30 UNIT SC (21:11)
[2024-01-19] VITALS (8 sets, daily range): BP systolic 92–136; BP diastolic 52–83; PULSE 45–98; RESP 17–22; TEMP 36.1–36.9; O2SAT 96–99
[2024-01-19] MEDS: IPRATROPIUM BROMIDE 200 PUFF/INH INHALER INH ×3 (00:15→18:54)
[2024-01-19] MEDS: ALBUTEROL INHALER 200 PUFF/INH INHALER INH ×3 (00:15→18:54)
[2024-01-19] MEDS: CARBAMIDE PEROXIDE OTIC SOL 15 ML BTL 5 DROP BOTH EARS (08:38)
[2024-01-19] MEDS: CYANOCOBALAMIN (VITAMIN B-12) 500 MCG TABLET 1000 MCG GT (08:42)
[2024-01-19] MEDS: MULTIVITAMIN W MINERALS 1 EACH TABLET GT (08:43)
[2024-01-19] MEDS: DEXLANSOPRAZOLE 30 MG PO (08:43)
[2024-01-19] MEDS: INSULIN GLARGINE 100 UNIT/ML INSULN.PEN 30 UNIT SC (21:09)
[2024-01-19] MEDS: ATORVASTATIN 40 MG TABLET GT (21:09)
[2024-01-20] VITALS (9 sets, daily range): BP systolic 104–123; BP diastolic 58–72; PULSE 38–78; RESP 16–18; TEMP 35.5–36.2; O2SAT 97–100
[2024-01-20] MEDS: ALBUTEROL INHALER 200 PUFF/INH INHALER INH ×4 (01:47→20:55)
[2024-01-20] MEDS: IPRATROPIUM BROMIDE 200 PUFF/INH INHALER INH ×4 (01:47→20:55)
[2024-01-20] MEDS: CARVEDILOL 3.125 MG TABLET GT (08:40)
[2024-01-20] MEDS: DEXLANSOPRAZOLE 30 MG PO (08:41)
[2024-01-20] MEDS: MULTIVITAMIN W MINERALS 1 EACH TABLET GT (08:41)
[2024-01-20] MEDS: CYANOCOBALAMIN (VITAMIN B-12) 500 MCG TABLET 1000 MCG GT (08:41)
[2024-01-20] MEDS: ATORVASTATIN 40 MG TABLET GT (21:03)
[2024-01-20] MEDS: INSULIN GLARGINE 100 UNIT/ML INSULN.PEN 30 UNIT SC (21:12)
[2024-01-21] VITALS (9 sets, daily range): BP systolic 92–127; BP diastolic 50–72; PULSE 47–78; RESP 16–18; TEMP 35.9–36.2; O2SAT 93–99
[2024-01-21] MEDS: ALBUTEROL INHALER 200 PUFF/INH INHALER INH ×4 (00:10→18:40)
[2024-01-21] MEDS: IPRATROPIUM BROMIDE 200 PUFF/INH INHALER INH ×4 (00:10→18:40)
[2024-01-21] MEDS: MULTIVITAMIN W MINERALS 1 EACH TABLET GT (08:48)
[2024-01-21] MEDS: DEXLANSOPRAZOLE 30 MG PO (08:48)
[2024-01-21] MEDS: CYANOCOBALAMIN (VITAMIN B-12) 500 MCG TABLET 1000 MCG GT (08:48)
[2024-01-21] MEDS: CARVEDILOL 3.125 MG TABLET GT (08:48)
--- NOTE | 2024-01-21 14:50 | PD.SAPROG ---
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 No new issues. Prognosis for independent living is poor Plan: Current treatment reviewed and continued
[2024-01-21] MEDS: ATORVASTATIN 40 MG TABLET GT (20:27)
[2024-01-21] MEDS: INSULIN GLARGINE 100 UNIT/ML INSULN.PEN 30 UNIT SC (21:22)
[2024-01-22] VITALS (8 sets, daily range): BP systolic 131–140; BP diastolic 64–82; PULSE 62–85; RESP 16–21; TEMP 36.1–36.7; O2SAT 95–98
[2024-01-22] MEDS: IPRATROPIUM BROMIDE 200 PUFF/INH INHALER INH ×4 (00:30→19:41)
[2024-01-22] MEDS: ALBUTEROL INHALER 200 PUFF/INH INHALER INH ×4 (00:30→19:41)
[2024-01-22] MEDS: CARVEDILOL 3.125 MG TABLET GT (09:01)
[2024-01-22] MEDS: DEXLANSOPRAZOLE 30 MG PO (09:01)
[2024-01-22] MEDS: MULTIVITAMIN W MINERALS 1 EACH TABLET GT (09:01)
[2024-01-22] MEDS: CYANOCOBALAMIN (VITAMIN B-12) 500 MCG TABLET 1000 MCG GT (09:01)
[2024-01-22] MEDS: ATORVASTATIN 40 MG TABLET GT (20:50)
[2024-01-22] MEDS: INSULIN GLARGINE 100 UNIT/ML INSULN.PEN 30 UNIT SC (21:15)
[2024-01-23] VITALS (10 sets, daily range): BP systolic 114–186; BP diastolic 65–87; PULSE 54–76; RESP 16–20; TEMP 36–36.2; O2SAT 96–99
[2024-01-23] MEDS: IPRATROPIUM BROMIDE 200 PUFF/INH INHALER INH ×4 (00:20→18:30)
[2024-01-23] MEDS: ALBUTEROL INHALER 200 PUFF/INH INHALER INH ×4 (00:20→18:30)
[2024-01-23] MEDS: DEXLANSOPRAZOLE 30 MG PO (08:18)
[2024-01-23] MEDS: CYANOCOBALAMIN (VITAMIN B-12) 500 MCG TABLET 1000 MCG GT (08:18)
[2024-01-23] MEDS: CARVEDILOL 3.125 MG TABLET GT (08:18)
[2024-01-23] MEDS: ATORVASTATIN 40 MG TABLET GT (20:09)
[2024-01-23] MEDS: INSULIN GLARGINE 100 UNIT/ML INSULN.PEN 30 UNIT SC (20:18)
[2024-01-24] VITALS (10 sets, daily range): BP systolic 93–130; BP diastolic 47–78; PULSE 49–73; RESP 17–21; TEMP 36–36.3; O2SAT 98–99
[2024-01-24] MEDS: ALBUTEROL INHALER 200 PUFF/INH INHALER INH ×4 (00:20→18:34)
[2024-01-24] MEDS: IPRATROPIUM BROMIDE 200 PUFF/INH INHALER INH ×4 (00:20→18:34)
[2024-01-24] MEDS: DEXLANSOPRAZOLE 30 MG PO (08:07)
[2024-01-24] MEDS: CYANOCOBALAMIN (VITAMIN B-12) 500 MCG TABLET 1000 MCG GT (08:07)
[2024-01-24] MEDS: INSULIN GLARGINE 100 UNIT/ML INSULN.PEN 30 UNIT SC (21:15)
[2024-01-24] MEDS: ATORVASTATIN 40 MG TABLET GT (21:15)
[2024-01-25] VITALS (8 sets, daily range): BP systolic 97–159; BP diastolic 54–80; PULSE 49–80; RESP 16–20; TEMP 36.1–36.4; O2SAT 97–100
[2024-01-25] MEDS: IPRATROPIUM BROMIDE 200 PUFF/INH INHALER INH ×3 (06:28→19:05)
[2024-01-25] MEDS: ALBUTEROL INHALER 200 PUFF/INH INHALER INH ×3 (06:28→19:05)
[2024-01-25] MEDS: DEXLANSOPRAZOLE 30 MG PO (08:37)
[2024-01-25] MEDS: CARVEDILOL 3.125 MG TABLET GT (08:37)
[2024-01-25] MEDS: CYANOCOBALAMIN (VITAMIN B-12) 500 MCG TABLET 1000 MCG GT (08:37)
[2024-01-25] MEDS: MULTIVITAMIN W MINERALS 1 EACH TABLET GT (09:00)
--- NOTE | 2024-01-25 14:15 | PD.SAPROG ---
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 No new issues. Prognosis for independent living is poor Plan: Current treatment reviewed and continued
[2024-01-25] MEDS: INSULIN GLARGINE 100 UNIT/ML INSULN.PEN 30 UNIT SC (21:10)
[2024-01-25] MEDS: ATORVASTATIN 40 MG TABLET GT (21:10)
[2024-01-26] VITALS (9 sets, daily range): BP systolic 104–135; BP diastolic 64–74; PULSE 64–87; RESP 17–20; TEMP 36–36.4; O2SAT 94–100
[2024-01-26] MEDS: ALBUTEROL INHALER 200 PUFF/INH INHALER INH ×4 (01:22→20:10)
[2024-01-26] MEDS: IPRATROPIUM BROMIDE 200 PUFF/INH INHALER INH ×4 (01:22→20:10)
[2024-01-26] MEDS: DEXLANSOPRAZOLE 30 MG PO (08:42)
[2024-01-26] MEDS: CYANOCOBALAMIN (VITAMIN B-12) 500 MCG TABLET 1000 MCG GT (08:42)
[2024-01-26] MEDS: CARVEDILOL 3.125 MG TABLET GT (08:42)
[2024-01-26] MEDS: MULTIVITAMIN W MINERALS 1 EACH TABLET GT (08:42)
[2024-01-26] MEDS: ATORVASTATIN 40 MG TABLET GT (20:17)
[2024-01-26] MEDS: INSULIN GLARGINE 100 UNIT/ML INSULN.PEN 30 UNIT SC (21:24)
[2024-01-27] VITALS (10 sets, daily range): BP systolic 92–134; BP diastolic 42–72; PULSE 51–74; RESP 16–18; TEMP 35.9–36.3; O2SAT 93–100
[2024-01-27] MEDS: ALBUTEROL INHALER 200 PUFF/INH INHALER INH ×4 (01:11→19:47)
[2024-01-27] MEDS: IPRATROPIUM BROMIDE 200 PUFF/INH INHALER INH ×4 (01:11→19:47)
[2024-01-27] MEDS: CYANOCOBALAMIN (VITAMIN B-12) 500 MCG TABLET 1000 MCG GT (09:21)
[2024-01-27] MEDS: DEXLANSOPRAZOLE 30 MG PO (09:22)
--- NOTE | 2024-01-27 20:15 | PD.SAPROG ---
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 No new issues. Prognosis for independent living is poor Plan: Current treatment reviewed and continued
[2024-01-27] MEDS: ATORVASTATIN 40 MG TABLET GT (21:31)
[2024-01-27] MEDS: INSULIN GLARGINE 100 UNIT/ML INSULN.PEN 30 UNIT SC (21:32)
[2024-01-28] VITALS (9 sets, daily range): BP systolic 106–155; BP diastolic 70–81; PULSE 45–70; RESP 16–20; TEMP 36–36.4; O2SAT 93–99
[2024-01-28] MEDS: IPRATROPIUM BROMIDE 200 PUFF/INH INHALER INH ×3 (01:47→18:05)
[2024-01-28] MEDS: ALBUTEROL INHALER 200 PUFF/INH INHALER INH ×4 (01:47→18:05)
[2024-01-28] MEDS: DEXLANSOPRAZOLE 30 MG PO (08:47)
[2024-01-28] MEDS: CYANOCOBALAMIN (VITAMIN B-12) 500 MCG TABLET 1000 MCG GT (08:47)
[2024-01-28] MEDS: MULTIVITAMIN W MINERALS 1 EACH TABLET GT (08:50)
--- NOTE | 2024-01-28 14:56 | PC.SS ---
Room visit: resident is laying in bed with head of the bed elevated with call light properly placed with no signs of distress. Resident remains on blow by with trach in place and GT for medication and nutrition. Resident will remain in current care as he has no changes in care or condition, all subacute care needs will continue to be met by staff. This SSD will make daily contact with resident and monitor for any changes.
[2024-01-28] MEDS: ATORVASTATIN 40 MG TABLET GT (20:51)
[2024-01-28] MEDS: INSULIN GLARGINE 100 UNIT/ML INSULN.PEN 30 UNIT SC (20:51)
[2024-01-29] VITALS (9 sets, daily range): BP systolic 106–121; BP diastolic 61–84; PULSE 56–72; RESP 18–20; TEMP 36.1–36.8; O2SAT 93–98
[2024-01-29] MEDS: IPRATROPIUM BROMIDE 200 PUFF/INH INHALER INH ×3 (02:10→19:25)
[2024-01-29] MEDS: ALBUTEROL INHALER 200 PUFF/INH INHALER INH ×4 (02:10→19:25)
[2024-01-29] MEDS: MULTIVITAMIN W MINERALS 1 EACH TABLET GT (08:26)
[2024-01-29] MEDS: DEXLANSOPRAZOLE 30 MG PO (08:27)
[2024-01-29] MEDS: CARVEDILOL 3.125 MG TABLET GT (08:27)
[2024-01-29] MEDS: CYANOCOBALAMIN (VITAMIN B-12) 500 MCG TABLET 1000 MCG GT (08:27)
[2024-01-29] MEDS: INSULIN GLARGINE 100 UNIT/ML INSULN.PEN 30 UNIT SC (21:13)
[2024-01-29] MEDS: ATORVASTATIN 40 MG TABLET GT (21:13)
[2024-01-30] VITALS (9 sets, daily range): BP systolic 112–155; BP diastolic 57–85; PULSE 61–74; RESP 18–20; TEMP 35.9–36.8; O2SAT 97–99
[2024-01-30] MEDS: ALBUTEROL INHALER 200 PUFF/INH INHALER INH ×4 (00:45→18:50)
[2024-01-30] MEDS: IPRATROPIUM BROMIDE 200 PUFF/INH INHALER INH ×4 (00:45→18:50)
[2024-01-30] MEDS: CYANOCOBALAMIN (VITAMIN B-12) 500 MCG TABLET 1000 MCG GT (08:05)
[2024-01-30] MEDS: CARVEDILOL 3.125 MG TABLET GT (08:05)
[2024-01-30] MEDS: ACETAMINOPHEN 325 MG TABLET 650 MG GT (08:06)
[2024-01-30] MEDS: MULTIVITAMIN W MINERALS 1 EACH TABLET GT (08:06)
[2024-01-30] MEDS: DEXLANSOPRAZOLE 30 MG PO (08:06)
[2024-01-30] MEDS: ATORVASTATIN 40 MG TABLET GT (21:19)
[2024-01-30] MEDS: INSULIN GLARGINE 100 UNIT/ML INSULN.PEN 30 UNIT SC (21:20)
[2024-01-31] VITALS (8 sets, daily range): BP systolic 115–128; BP diastolic 66–76; PULSE 55–71; RESP 16–18; TEMP 36–36.8; O2SAT 96–99
[2024-01-31] MEDS: ALBUTEROL INHALER 200 PUFF/INH INHALER INH ×4 (00:55→19:53)
[2024-01-31] MEDS: IPRATROPIUM BROMIDE 200 PUFF/INH INHALER INH ×4 (00:55→19:53)
[2024-01-31] MEDS: CARVEDILOL 3.125 MG TABLET GT (08:26)
[2024-01-31] MEDS: CYANOCOBALAMIN (VITAMIN B-12) 500 MCG TABLET 1000 MCG GT (08:27)
[2024-01-31] MEDS: MULTIVITAMIN W MINERALS 1 EACH TABLET GT (08:28)
[2024-01-31] MEDS: DEXLANSOPRAZOLE 30 MG PO (08:28)
[2024-01-31] MEDS: ATORVASTATIN 40 MG TABLET GT (22:22)
[2024-01-31] MEDS: INSULIN GLARGINE 100 UNIT/ML INSULN.PEN 30 UNIT SC (22:39)
[2024-02-01] VITALS (12 sets, daily range): BP systolic 89–112; BP diastolic 37–84; PULSE 42–96; RESP 16–96; TEMP 36.1–36.3; O2SAT 96–98
[2024-02-01] MEDS: IPRATROPIUM BROMIDE 200 PUFF/INH INHALER INH ×3 (00:50→20:05)
[2024-02-01] MEDS: ALBUTEROL INHALER 200 PUFF/INH INHALER INH ×3 (00:50→20:05)
[2024-02-01] MEDS: CARVEDILOL 3.125 MG TABLET GT (08:42)
[2024-02-01] MEDS: DEXLANSOPRAZOLE 30 MG PO (08:43)
[2024-02-01] MEDS: CYANOCOBALAMIN (VITAMIN B-12) 500 MCG TABLET 1000 MCG GT (08:43)
[2024-02-01] MEDS: MULTIVITAMIN W MINERALS 1 EACH TABLET GT (08:45)
[2024-02-01] MEDS: ATORVASTATIN 40 MG TABLET GT (22:48)
--- NOTE | 2024-02-01 23:11 | PD.SAPROG ---
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 No new issues. Prognosis for independent living is poor Plan: Current treatment reviewed and continued
[2024-02-01] MEDS: INSULIN GLARGINE 100 UNIT/ML INSULN.PEN 30 UNIT SC (23:28)
[2024-02-02] VITALS (9 sets, daily range): BP systolic 116–159; BP diastolic 70–87; PULSE 46–90; RESP 16–20; TEMP 35.8–36.3; O2SAT 94–98
[2024-02-02] MEDS: IPRATROPIUM BROMIDE 200 PUFF/INH INHALER INH ×4 (00:46→19:10)
[2024-02-02] MEDS: ALBUTEROL INHALER 200 PUFF/INH INHALER INH ×4 (00:46→19:10)
[2024-02-02] MEDS: CYANOCOBALAMIN (VITAMIN B-12) 500 MCG TABLET 1000 MCG GT (08:57)
[2024-02-02] MEDS: MULTIVITAMIN W MINERALS 1 EACH TABLET GT (08:57)
[2024-02-02] MEDS: DEXLANSOPRAZOLE 30 MG PO (08:57)
[2024-02-02] MEDS: ATORVASTATIN 40 MG TABLET GT (20:53)
[2024-02-02] MEDS: INSULIN GLARGINE 100 UNIT/ML INSULN.PEN 30 UNIT SC (21:22)
[2024-02-03] VITALS (9 sets, daily range): BP systolic 91–143; BP diastolic 58–93; PULSE 52–80; RESP 16–18; TEMP 36.2–37.2; O2SAT 92–99
[2024-02-03] MEDS: IPRATROPIUM BROMIDE 200 PUFF/INH INHALER INH ×4 (00:14→19:45)
[2024-02-03] MEDS: ALBUTEROL INHALER 200 PUFF/INH INHALER INH ×4 (00:14→19:45)
[2024-02-03] MEDS: CARVEDILOL 3.125 MG TABLET GT (09:14)
[2024-02-03] MEDS: DEXLANSOPRAZOLE 30 MG PO (09:14)
[2024-02-03] MEDS: MULTIVITAMIN W MINERALS 1 EACH TABLET GT (09:14)
[2024-02-03] MEDS: CYANOCOBALAMIN (VITAMIN B-12) 500 MCG TABLET 1000 MCG GT (09:14)
[2024-02-03] MEDS: MAGNESIUM HYDROXIDE 30 ML ORAL SUSP ML GT (10:04)
[2024-02-03] MEDS: ATORVASTATIN 40 MG TABLET GT (21:14)
[2024-02-03] MEDS: INSULIN GLARGINE 100 UNIT/ML INSULN.PEN 30 UNIT SC (21:16)
[2024-02-04] VITALS (9 sets, daily range): BP systolic 96–143; BP diastolic 60–77; PULSE 49–75; RESP 18–20; TEMP 36.3–37; O2SAT 93–98
[2024-02-04] MEDS: ALBUTEROL INHALER 200 PUFF/INH INHALER INH ×4 (00:30→18:38)
[2024-02-04] MEDS: IPRATROPIUM BROMIDE 200 PUFF/INH INHALER INH ×4 (00:30→18:38)
[2024-02-04] MEDS: CYANOCOBALAMIN (VITAMIN B-12) 500 MCG TABLET 1000 MCG GT (08:37)
[2024-02-04] MEDS: CARVEDILOL 3.125 MG TABLET GT (08:37)
[2024-02-04] MEDS: MULTIVITAMIN W MINERALS 1 EACH TABLET GT (08:37)
[2024-02-04] MEDS: DEXLANSOPRAZOLE 30 MG PO (08:37)
--- NOTE | 2024-02-04 15:07 | PC.SS ---
Room visit: Resident is laying in bed with head of the bed elevated with call light properly placed with no signs of distress. Resident remains on blow by with trach in place and GT in place for medication and nutrition. Resident will remain in current care and will continue to have all subacute care needs met by staff.
[2024-02-04] MEDS: ATORVASTATIN 40 MG TABLET GT (21:40)
[2024-02-04] MEDS: INSULIN GLARGINE 100 UNIT/ML INSULN.PEN 30 UNIT SC (21:41)
[2024-02-05] VITALS (8 sets, daily range): BP systolic 95–144; BP diastolic 46–69; PULSE 52–74; RESP 15–18; TEMP 36.1–36.4; O2SAT 97–99
[2024-02-05] MEDS: ALBUTEROL INHALER 200 PUFF/INH INHALER INH ×4 (00:21→18:00)
[2024-02-05] MEDS: IPRATROPIUM BROMIDE 200 PUFF/INH INHALER INH ×4 (00:21→18:00)
[2024-02-05] MEDS: CARVEDILOL 3.125 MG TABLET GT (08:05)
[2024-02-05] MEDS: CYANOCOBALAMIN (VITAMIN B-12) 500 MCG TABLET 1000 MCG GT (08:06)
[2024-02-05] MEDS: DEXLANSOPRAZOLE 30 MG PO (08:06)
[2024-02-05] MEDS: ACETAMINOPHEN 325 MG TABLET 650 MG GT ×2 (08:07→20:00)
[2024-02-05] MEDS: MULTIVITAMIN W MINERALS 1 EACH TABLET GT (08:07)
[2024-02-05] MEDS: ATORVASTATIN 40 MG TABLET GT (20:00)
[2024-02-05] MEDS: INSULIN GLARGINE 100 UNIT/ML INSULN.PEN 30 UNIT SC (20:00)
--- NOTE | 2024-02-05 23:34 | PD.SAPROG ---
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 No new issues. Prognosis for independent living is poor Plan: Current treatment reviewed and continued
[2024-02-06] VITALS (9 sets, daily range): BP systolic 93–135; BP diastolic 44–81; PULSE 55–84; RESP 18–20; TEMP 36–36.4; O2SAT 89–98
[2024-02-06] MEDS: ALBUTEROL INHALER 200 PUFF/INH INHALER INH ×4 (00:25→18:25)
[2024-02-06] MEDS: IPRATROPIUM BROMIDE 200 PUFF/INH INHALER INH ×4 (00:25→18:25)
[2024-02-06] MEDS: CYANOCOBALAMIN (VITAMIN B-12) 500 MCG TABLET 1000 MCG GT (08:05)
[2024-02-06] MEDS: DEXLANSOPRAZOLE 30 MG PO (08:05)
[2024-02-06] MEDS: MULTIVITAMIN W MINERALS 1 EACH TABLET GT (08:05)
[2024-02-06] MEDS: ACETAMINOPHEN 325 MG TABLET 650 MG GT (08:06)
[2024-02-06] MEDS: ATORVASTATIN 40 MG TABLET GT (20:27)
[2024-02-06] MEDS: INSULIN GLARGINE 100 UNIT/ML INSULN.PEN 30 UNIT SC (21:30)
[2024-02-07] VITALS (9 sets, daily range): BP systolic 110–138; BP diastolic 69–82; PULSE 59–87; RESP 16–20; TEMP 36–36.7; O2SAT 91–99
[2024-02-07] MEDS: IPRATROPIUM BROMIDE 200 PUFF/INH INHALER INH ×4 (00:21→19:53)
[2024-02-07] MEDS: ALBUTEROL INHALER 200 PUFF/INH INHALER INH ×4 (00:21→19:53)
[2024-02-07] MEDS: CARVEDILOL 3.125 MG TABLET GT (08:59)
[2024-02-07] MEDS: MULTIVITAMIN W MINERALS 1 EACH TABLET GT (09:00)
[2024-02-07] MEDS: DEXLANSOPRAZOLE 30 MG PO (09:00)
[2024-02-07] MEDS: CYANOCOBALAMIN (VITAMIN B-12) 500 MCG TABLET 1000 MCG GT (09:00)
[2024-02-07] MEDS: ACETAMINOPHEN 325 MG TABLET 650 MG GT (14:21)
[2024-02-07] MEDS: ATORVASTATIN 40 MG TABLET GT (20:43)
[2024-02-07] MEDS: INSULIN GLARGINE 100 UNIT/ML INSULN.PEN 30 UNIT SC (20:43)
[2024-02-08] VITALS (9 sets, daily range): BP systolic 98–144; BP diastolic 52–79; PULSE 55–78; RESP 17–20; TEMP 36.1–36.9; O2SAT 95–99
[2024-02-08] MEDS: IPRATROPIUM BROMIDE 200 PUFF/INH INHALER INH ×4 (00:30→19:20)
[2024-02-08] MEDS: ALBUTEROL INHALER 200 PUFF/INH INHALER INH ×4 (00:30→19:20)
[2024-02-08] MEDS: CYANOCOBALAMIN (VITAMIN B-12) 500 MCG TABLET 1000 MCG GT (08:37)
[2024-02-08] MEDS: DEXLANSOPRAZOLE 30 MG PO (08:37)
[2024-02-08] MEDS: MULTIVITAMIN W MINERALS 1 EACH TABLET GT (08:37)
[2024-02-08] MEDS: ACETAMINOPHEN 325 MG TABLET 650 MG GT (17:30)
[2024-02-08] MEDS: ATORVASTATIN 40 MG TABLET GT (21:28)
[2024-02-08] MEDS: MAGNESIUM HYDROXIDE 30 ML ORAL SUSP ML GT (21:29)
[2024-02-08] MEDS: INSULIN GLARGINE 100 UNIT/ML INSULN.PEN 30 UNIT SC (21:29)
[2024-02-09] VITALS (9 sets, daily range): BP systolic 88–130; BP diastolic 62–76; PULSE 48–86; RESP 16–97; TEMP 36.2–37.2; O2SAT 92–99
[2024-02-09] MEDS: IPRATROPIUM BROMIDE 200 PUFF/INH INHALER INH ×3 (00:35→18:55)
[2024-02-09] MEDS: ALBUTEROL INHALER 200 PUFF/INH INHALER INH ×3 (00:35→18:55)
[2024-02-09] MEDS: MULTIVITAMIN W MINERALS 1 EACH TABLET GT (08:44)
[2024-02-09] MEDS: DEXLANSOPRAZOLE 30 MG PO (08:44)
[2024-02-09] MEDS: CYANOCOBALAMIN (VITAMIN B-12) 500 MCG TABLET 1000 MCG GT (08:44)
[2024-02-09] MEDS: BISACODYL 10 MG SUPP.RECT PR (11:44)
[2024-02-09] MEDS: ATORVASTATIN 40 MG TABLET GT (20:34)
[2024-02-09] MEDS: INSULIN GLARGINE 100 UNIT/ML INSULN.PEN 30 UNIT SC (20:39)
--- NOTE | 2024-02-09 22:32 | PD.SAPROG ---
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 No new issues. Prognosis for independent living is poor Plan: Current treatment reviewed and continued
[2024-02-10] VITALS (9 sets, daily range): BP systolic 97–138; BP diastolic 45–77; PULSE 43–72; RESP 15–20; TEMP 36–36.6; O2SAT 93–100
[2024-02-10] MEDS: ALBUTEROL INHALER 200 PUFF/INH INHALER INH ×4 (00:42→18:10)
[2024-02-10] MEDS: IPRATROPIUM BROMIDE 200 PUFF/INH INHALER INH ×4 (00:42→18:10)
[2024-02-10] MEDS: MULTIVITAMIN W MINERALS 1 EACH TABLET GT (08:41)
[2024-02-10] MEDS: DEXLANSOPRAZOLE 30 MG PO (08:41)
[2024-02-10] MEDS: CYANOCOBALAMIN (VITAMIN B-12) 500 MCG TABLET 1000 MCG GT (08:41)
[2024-02-10] MEDS: ATORVASTATIN 40 MG TABLET GT (20:32)
[2024-02-10] MEDS: INSULIN GLARGINE 100 UNIT/ML INSULN.PEN 30 UNIT SC (20:32)
[2024-02-11] VITALS (9 sets, daily range): BP systolic 93–110; BP diastolic 41–62; PULSE 42–78; RESP 16–20; TEMP 36.1–36.2; O2SAT 96–99
[2024-02-11] MEDS: IPRATROPIUM BROMIDE 200 PUFF/INH INHALER INH ×4 (00:38→18:27)
[2024-02-11] MEDS: ALBUTEROL INHALER 200 PUFF/INH INHALER INH ×4 (00:38→18:27)
[2024-02-11] MEDS: DEXLANSOPRAZOLE 30 MG PO (08:20)
[2024-02-11] MEDS: MULTIVITAMIN W MINERALS 1 EACH TABLET GT (08:20)
[2024-02-11] MEDS: CYANOCOBALAMIN (VITAMIN B-12) 500 MCG TABLET 1000 MCG GT (08:20)
[2024-02-11] MEDS: ACETAMINOPHEN 325 MG TABLET 650 MG GT (08:20)
--- NOTE | 2024-02-11 12:16 | PC.SS ---
Room Visit: Resident is laying in bed with head of the bed elevated with call light properly placed with no signs of distress. His decision maker is his son Colt, as he is unable to make needs known. Resident remains on blow by with trach in place and GT for medication and nutrition. Resident will remain in current care as he has no changes in care or condition he will continue to have all subacute care needs met by staff. SSD will make daily contact with resident and monitor for changes in mood and behavior
[2024-02-11] MEDS: ATORVASTATIN 40 MG TABLET GT (20:42)
[2024-02-11] MEDS: INSULIN GLARGINE 100 UNIT/ML INSULN.PEN 30 UNIT SC (20:42)
[2024-02-12] VITALS (9 sets, daily range): BP systolic 107–124; BP diastolic 56–76; PULSE 52–76; RESP 16–20; TEMP 35.9–36.6; O2SAT 94–98
[2024-02-12] MEDS: ALBUTEROL INHALER 200 PUFF/INH INHALER INH ×4 (00:25→18:30)
[2024-02-12] MEDS: IPRATROPIUM BROMIDE 200 PUFF/INH INHALER INH ×4 (00:25→18:30)
[2024-02-12] MEDS: CARVEDILOL 3.125 MG TABLET GT (08:27)
[2024-02-12] MEDS: DEXLANSOPRAZOLE 30 MG PO (08:28)
[2024-02-12] MEDS: CYANOCOBALAMIN (VITAMIN B-12) 500 MCG TABLET 1000 MCG GT (08:28)
[2024-02-12] MEDS: MULTIVITAMIN W MINERALS 1 EACH TABLET GT (08:28)
[2024-02-12] MEDS: ACETAMINOPHEN 325 MG TABLET 650 MG GT (08:29)
[2024-02-12] MEDS: INSULIN GLARGINE 100 UNIT/ML INSULN.PEN 30 UNIT SC (20:44)
[2024-02-12] MEDS: ATORVASTATIN 40 MG TABLET GT (20:44)
[2024-02-13] VITALS (9 sets, daily range): BP systolic 107–120; BP diastolic 59–76; PULSE 50–72; RESP 16–18; TEMP 36.1–36.8; O2SAT 94–98
[2024-02-13] MEDS: ALBUTEROL INHALER 200 PUFF/INH INHALER INH ×4 (00:23→19:50)
[2024-02-13] MEDS: IPRATROPIUM BROMIDE 200 PUFF/INH INHALER INH ×4 (00:23→19:50)
[2024-02-13] MEDS: CARVEDILOL 3.125 MG TABLET GT (09:44)
[2024-02-13] MEDS: CYANOCOBALAMIN (VITAMIN B-12) 500 MCG TABLET 1000 MCG GT (09:45)
[2024-02-13] MEDS: DEXLANSOPRAZOLE 30 MG PO (09:45)
[2024-02-13] MEDS: MULTIVITAMIN W MINERALS 1 EACH TABLET GT (09:45)
[2024-02-13] MEDS: MAGNESIUM HYDROXIDE 30 ML ORAL SUSP ML GT (16:37)
--- NOTE | 2024-02-13 17:02 | PD.SAPROG ---
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 No new issues. Prognosis for independent living is poor Plan: Current treatment reviewed and continued
[2024-02-13] MEDS: ATORVASTATIN 40 MG TABLET GT (20:26)
[2024-02-13] MEDS: INSULIN GLARGINE 100 UNIT/ML INSULN.PEN 30 UNIT SC (20:26)
[2024-02-14] VITALS (7 sets, daily range): BP systolic 91–138; BP diastolic 50–86; PULSE 45–76; RESP 16–20; TEMP 35.9–37; O2SAT 96–100
[2024-02-14] MEDS: IPRATROPIUM BROMIDE 200 PUFF/INH INHALER INH ×4 (02:45→19:20)
[2024-02-14] MEDS: ALBUTEROL INHALER 200 PUFF/INH INHALER INH ×4 (02:45→19:20)
[2024-02-14] MEDS: CYANOCOBALAMIN (VITAMIN B-12) 500 MCG TABLET 1000 MCG GT (08:32)
[2024-02-14] MEDS: DEXLANSOPRAZOLE 30 MG PO (08:33)
[2024-02-14] MEDS: MULTIVITAMIN W MINERALS 1 EACH TABLET GT (08:33)
[2024-02-14] MEDS: ATORVASTATIN 40 MG TABLET GT (20:26)
[2024-02-14] MEDS: INSULIN GLARGINE 100 UNIT/ML INSULN.PEN 30 UNIT SC (21:25)
[2024-02-15] VITALS (9 sets, daily range): BP systolic 106–141; BP diastolic 67–72; PULSE 54–74; RESP 16–20; TEMP 36–36.8; O2SAT 94–100
[2024-02-15] MEDS: IPRATROPIUM BROMIDE 200 PUFF/INH INHALER INH ×4 (01:20→17:50)
[2024-02-15] MEDS: ALBUTEROL INHALER 200 PUFF/INH INHALER INH ×4 (01:20→17:50)
[2024-02-15] MEDS: CARVEDILOL 3.125 MG TABLET GT (09:18)
[2024-02-15] MEDS: CYANOCOBALAMIN (VITAMIN B-12) 500 MCG TABLET 1000 MCG GT (09:20)
[2024-02-15] MEDS: MULTIVITAMIN W MINERALS 1 EACH TABLET GT (09:20)
[2024-02-15] MEDS: DEXLANSOPRAZOLE 30 MG PO (09:20)
[2024-02-15] MEDS: ATORVASTATIN 40 MG TABLET GT (20:42)
[2024-02-15] MEDS: INSULIN GLARGINE 100 UNIT/ML INSULN.PEN 30 UNIT SC (20:42)
[2024-02-16] VITALS (9 sets, daily range): BP systolic 97–178; BP diastolic 54–78; PULSE 47–74; RESP 16–20; TEMP 36–36.6; O2SAT 92–100
[2024-02-16] MEDS: IPRATROPIUM BROMIDE 200 PUFF/INH INHALER INH ×4 (00:59→19:07)
[2024-02-16] MEDS: ALBUTEROL INHALER 200 PUFF/INH INHALER INH ×4 (00:59→19:07)
[2024-02-16] MEDS: MULTIVITAMIN W MINERALS 1 EACH TABLET GT (09:48)
[2024-02-16] MEDS: DEXLANSOPRAZOLE 30 MG PO (09:48)
[2024-02-16] MEDS: CYANOCOBALAMIN (VITAMIN B-12) 500 MCG TABLET 1000 MCG GT (09:48)
[2024-02-16] MEDS: CARVEDILOL 3.125 MG TABLET GT (09:48)
[2024-02-16] MEDS: ATORVASTATIN 40 MG TABLET GT (21:07)
[2024-02-16] MEDS: INSULIN GLARGINE 100 UNIT/ML INSULN.PEN 30 UNIT SC (21:07)
[2024-02-17] VITALS (9 sets, daily range): BP systolic 101–167; BP diastolic 61–75; PULSE 60–74; RESP 16–118; TEMP 36–36.6; O2SAT 98–100
[2024-02-17] MEDS: ALBUTEROL INHALER 200 PUFF/INH INHALER INH ×4 (00:24→19:17)
[2024-02-17] MEDS: IPRATROPIUM BROMIDE 200 PUFF/INH INHALER INH ×4 (00:24→19:17)
[2024-02-17] MEDS: CYANOCOBALAMIN (VITAMIN B-12) 500 MCG TABLET 1000 MCG GT (08:56)
[2024-02-17] MEDS: DEXLANSOPRAZOLE 30 MG PO (08:56)
[2024-02-17] MEDS: CARVEDILOL 3.125 MG TABLET GT (08:56)
[2024-02-17] MEDS: MULTIVITAMIN W MINERALS 1 EACH TABLET GT (08:57)
[2024-02-17] MEDS: ATORVASTATIN 40 MG TABLET GT (20:39)
[2024-02-17] MEDS: INSULIN GLARGINE 100 UNIT/ML INSULN.PEN 30 UNIT SC (20:46)
--- NOTE | 2024-02-17 22:26 | PD.SAPROG ---
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 No new issues. Prognosis for independent living is poor Plan: Current treatment reviewed and continued
[2024-02-18] VITALS (8 sets, daily range): BP systolic 120–129; BP diastolic 68–72; PULSE 54–68; RESP 16–18; TEMP 36.2–36.9; O2SAT 92–100
[2024-02-18] MEDS: ALBUTEROL INHALER 200 PUFF/INH INHALER INH ×4 (00:01→19:28)
[2024-02-18] MEDS: IPRATROPIUM BROMIDE 200 PUFF/INH INHALER INH ×4 (00:01→19:28)
[2024-02-18] MEDS: CARVEDILOL 3.125 MG TABLET GT (08:11)
[2024-02-18] MEDS: CYANOCOBALAMIN (VITAMIN B-12) 500 MCG TABLET 1000 MCG GT (08:12)
[2024-02-18] MEDS: ACETAMINOPHEN 325 MG TABLET 650 MG GT (08:12)
[2024-02-18] MEDS: MULTIVITAMIN W MINERALS 1 EACH TABLET GT (08:12)
[2024-02-18] MEDS: DEXLANSOPRAZOLE 30 MG PO (08:12)
--- NOTE | 2024-02-18 16:15 | PC.SS ---
Room visit: Resident is laying in bed with head of the bed elevated with call light properly placed. Resident has no changes in care or condition, remains on blow by with trach in place and GT in place for medication and nutrition. Resident will remain in current care and will continue to have all subacute care needs met by staff.
[2024-02-18] MEDS: ATORVASTATIN 40 MG TABLET GT (20:21)
[2024-02-18] MEDS: INSULIN GLARGINE 100 UNIT/ML INSULN.PEN 30 UNIT SC (20:25)
[2024-02-19] VITALS (9 sets, daily range): BP systolic 96–138; BP diastolic 46–67; PULSE 55–80; RESP 16–22; TEMP 35.7–36.7; O2SAT 93–98
[2024-02-19] MEDS: ALBUTEROL INHALER 200 PUFF/INH INHALER INH ×4 (00:41→19:05)
[2024-02-19] MEDS: IPRATROPIUM BROMIDE 200 PUFF/INH INHALER INH ×4 (00:41→19:05)
[2024-02-19] MEDS: CYANOCOBALAMIN (VITAMIN B-12) 500 MCG TABLET 1000 MCG GT (08:37)
[2024-02-19] MEDS: DEXLANSOPRAZOLE 30 MG PO (08:38)
[2024-02-19] MEDS: MULTIVITAMIN W MINERALS 1 EACH TABLET GT (08:38)
[2024-02-19] MEDS: INSULIN GLARGINE 100 UNIT/ML INSULN.PEN 30 UNIT SC (21:05)
[2024-02-19] MEDS: ATORVASTATIN 40 MG TABLET GT (21:05)
[2024-02-20] VITALS (10 sets, daily range): BP systolic 99–142; BP diastolic 60–77; PULSE 48–74; RESP 16–20; TEMP 36.1–36.7; O2SAT 94–98
[2024-02-20] MEDS: ALBUTEROL INHALER 200 PUFF/INH INHALER INH ×4 (00:55→19:35)
[2024-02-20] MEDS: IPRATROPIUM BROMIDE 200 PUFF/INH INHALER INH ×4 (00:56→19:35)
[2024-02-20] MEDS: CYANOCOBALAMIN (VITAMIN B-12) 500 MCG TABLET 1000 MCG GT (08:33)
[2024-02-20] MEDS: DEXLANSOPRAZOLE 30 MG PO (08:33)
[2024-02-20] MEDS: CARVEDILOL 3.125 MG TABLET GT (08:33)
[2024-02-20] MEDS: MULTIVITAMIN W MINERALS 1 EACH TABLET GT (08:33)
[2024-02-20] MEDS: ATORVASTATIN 40 MG TABLET GT (21:21)
[2024-02-21] VITALS (8 sets, daily range): BP systolic 98–117; BP diastolic 58–70; PULSE 52–71; RESP 18–19; TEMP 36.3–37.4; O2SAT 95–98
[2024-02-21] MEDS: ALBUTEROL INHALER 200 PUFF/INH INHALER INH ×4 (01:00→19:35)
[2024-02-21] MEDS: IPRATROPIUM BROMIDE 200 PUFF/INH INHALER INH ×3 (01:00→19:35)
[2024-02-21] MEDS: CARVEDILOL 3.125 MG TABLET GT (09:11)
[2024-02-21] MEDS: DEXLANSOPRAZOLE 30 MG PO (09:12)
[2024-02-21] MEDS: MULTIVITAMIN W MINERALS 1 EACH TABLET GT (09:12)
[2024-02-21] MEDS: CYANOCOBALAMIN (VITAMIN B-12) 500 MCG TABLET 1000 MCG GT (09:12)
--- NOTE | 2024-02-21 20:40 | PD.SAPROG ---
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 No new issues. Prognosis for independent living is poor Plan: Current treatment reviewed and continued
[2024-02-21] MEDS: ATORVASTATIN 40 MG TABLET GT (20:45)
[2024-02-21] MEDS: INSULIN GLARGINE 100 UNIT/ML INSULN.PEN 30 UNIT SC (21:15)
[2024-02-22] VITALS (9 sets, daily range): BP systolic 96–167; BP diastolic 50–74; PULSE 57–79; RESP 16–18; TEMP 36.3–37.2; O2SAT 97–99
[2024-02-22] MEDS: ALBUTEROL INHALER 200 PUFF/INH INHALER INH ×4 (01:50→19:10)
[2024-02-22] MEDS: IPRATROPIUM BROMIDE 200 PUFF/INH INHALER INH ×4 (01:50→19:10)
[2024-02-22] MEDS: MAGNESIUM HYDROXIDE 30 ML ORAL SUSP ML GT (02:37)
[2024-02-22] MEDS: DEXLANSOPRAZOLE 30 MG PO (08:49)
[2024-02-22] MEDS: MULTIVITAMIN W MINERALS 1 EACH TABLET GT (08:49)
[2024-02-22] MEDS: CYANOCOBALAMIN (VITAMIN B-12) 500 MCG TABLET 1000 MCG GT (08:49)
[2024-02-22] MEDS: ATORVASTATIN 40 MG TABLET GT (20:48)
[2024-02-22] MEDS: INSULIN GLARGINE 100 UNIT/ML INSULN.PEN 30 UNIT SC (21:54)
[2024-02-23] VITALS (9 sets, daily range): BP systolic 92–144; BP diastolic 48–78; PULSE 51–68; RESP 18–20; TEMP 36.3–37.4; O2SAT 94–100
[2024-02-23] MEDS: ALBUTEROL INHALER 200 PUFF/INH INHALER INH ×4 (00:20→18:22)
[2024-02-23] MEDS: IPRATROPIUM BROMIDE 200 PUFF/INH INHALER INH ×4 (00:20→18:22)
[2024-02-23] MEDS: DEXLANSOPRAZOLE 30 MG PO (08:47)
[2024-02-23] MEDS: MULTIVITAMIN W MINERALS 1 EACH TABLET GT (08:47)
[2024-02-23] MEDS: CYANOCOBALAMIN (VITAMIN B-12) 500 MCG TABLET 1000 MCG GT (08:47)
[2024-02-23] MEDS: ATORVASTATIN 40 MG TABLET GT (20:59)
[2024-02-23] MEDS: INSULIN GLARGINE 100 UNIT/ML INSULN.PEN 30 UNIT SC (20:59)
[2024-02-24] VITALS (9 sets, daily range): BP systolic 98–125; BP diastolic 56–84; PULSE 49–79; RESP 16–20; TEMP 36.4–36.9; O2SAT 94–100
[2024-02-24] MEDS: IPRATROPIUM BROMIDE 200 PUFF/INH INHALER INH ×4 (01:05→18:35)
[2024-02-24] MEDS: ALBUTEROL INHALER 200 PUFF/INH INHALER INH ×4 (01:05→18:35)
[2024-02-24] MEDS: CYANOCOBALAMIN (VITAMIN B-12) 500 MCG TABLET 1000 MCG GT (08:37)
[2024-02-24] MEDS: MULTIVITAMIN W MINERALS 1 EACH TABLET GT (08:37)
[2024-02-24] MEDS: DEXLANSOPRAZOLE 30 MG PO (08:37)
[2024-02-24] MEDS: INSULIN GLARGINE 100 UNIT/ML INSULN.PEN 30 UNIT SC (21:00)
[2024-02-24] MEDS: ATORVASTATIN 40 MG TABLET GT (21:00)
[2024-02-25] VITALS (9 sets, daily range): BP systolic 115–141; BP diastolic 61–77; PULSE 50–83; RESP 17–19; TEMP 36.3–37.1; O2SAT 95–100
[2024-02-25] MEDS: IPRATROPIUM BROMIDE 200 PUFF/INH INHALER INH ×3 (00:40→18:45)
[2024-02-25] MEDS: ALBUTEROL INHALER 200 PUFF/INH INHALER INH ×3 (00:40→18:45)
[2024-02-25] MEDS: CYANOCOBALAMIN (VITAMIN B-12) 500 MCG TABLET 1000 MCG GT (08:15)
[2024-02-25] MEDS: DEXLANSOPRAZOLE 30 MG PO (08:16)
[2024-02-25] MEDS: MULTIVITAMIN W MINERALS 1 EACH TABLET GT (08:16)
--- NOTE | 2024-02-25 15:07 | PC.SS ---
Room visit: Resident is laying in bed with head of the bed elevated with call light properly placed with no signs of distress. Resident remains on blow by with trach in place and GT for medication and nutrition. Resident has no changes in care or condition, resident will remain in current care and will continue to have all subacute care needs met by staff. This SSD to make daily contact and monitor for changes in mod and behavior and will offer support as needed.
[2024-02-25] MEDS: ATORVASTATIN 40 MG TABLET GT (21:02)
[2024-02-25] MEDS: INSULIN GLARGINE 100 UNIT/ML INSULN.PEN 30 UNIT SC (21:08)
[2024-02-25] MEDS: MAGNESIUM HYDROXIDE 30 ML ORAL SUSP ML GT (21:14)
--- NOTE | 2024-02-25 22:21 | PD.SAPROG ---
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 No new issues. Prognosis for independent living is poor Plan: Current treatment reviewed and continued
[2024-02-26] VITALS (9 sets, daily range): BP systolic 95–139; BP diastolic 61–81; PULSE 58–78; RESP 16–20; TEMP 36.1–36.6; O2SAT 97–98
[2024-02-26] MEDS: ALBUTEROL INHALER 200 PUFF/INH INHALER INH ×4 (00:35→18:20)
[2024-02-26] MEDS: IPRATROPIUM BROMIDE 200 PUFF/INH INHALER INH ×4 (00:35→18:20)
[2024-02-26] MEDS: CARVEDILOL 3.125 MG TABLET GT (08:55)
[2024-02-26] MEDS: DEXLANSOPRAZOLE 30 MG PO (08:57)
[2024-02-26] MEDS: CYANOCOBALAMIN (VITAMIN B-12) 500 MCG TABLET 1000 MCG GT (08:57)
[2024-02-26] MEDS: MULTIVITAMIN W MINERALS 1 EACH TABLET GT (08:57)
[2024-02-26] MEDS: SODIUM PHOSPHATE,MONO-DIBASIC 133 ML ENEMA PR (14:15)
[2024-02-26] MEDS: ATORVASTATIN 40 MG TABLET GT (20:41)
[2024-02-26] MEDS: INSULIN GLARGINE 100 UNIT/ML INSULN.PEN 30 UNIT SC (20:41)
[2024-02-27] VITALS (9 sets, daily range): BP systolic 101–157; BP diastolic 67–91; PULSE 61–96; RESP 16–20; TEMP 36.1–37.2; O2SAT 95–98
[2024-02-27] MEDS: ALBUTEROL INHALER 200 PUFF/INH INHALER INH ×4 (00:50→18:20)
[2024-02-27] MEDS: IPRATROPIUM BROMIDE 200 PUFF/INH INHALER INH ×4 (00:50→18:20)
[2024-02-27] MEDS: CYANOCOBALAMIN (VITAMIN B-12) 500 MCG TABLET 1000 MCG GT (08:56)
[2024-02-27] MEDS: MULTIVITAMIN W MINERALS 1 EACH TABLET GT (08:56)
[2024-02-27] MEDS: CARVEDILOL 3.125 MG TABLET GT (08:56)
[2024-02-27] MEDS: DEXLANSOPRAZOLE 30 MG PO (08:56)
--- NOTE | 2024-02-27 19:52 | PD.SAPROG ---
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 No new issues. Prognosis for independent living is poor Plan: Current treatment reviewed and continued
[2024-02-27] MEDS: ATORVASTATIN 40 MG TABLET GT (20:23)
[2024-02-27] MEDS: INSULIN GLARGINE 100 UNIT/ML INSULN.PEN 30 UNIT SC (21:00)
[2024-02-28] VITALS (9 sets, daily range): BP systolic 103–147; BP diastolic 54–84; PULSE 50–77; RESP 17–20; TEMP 36.1–36.7; O2SAT 96–99
[2024-02-28] MEDS: ALBUTEROL INHALER 200 PUFF/INH INHALER INH ×4 (00:25→19:00)
[2024-02-28] MEDS: IPRATROPIUM BROMIDE 200 PUFF/INH INHALER INH ×4 (00:25→19:00)
[2024-02-28] MEDS: DEXLANSOPRAZOLE 30 MG PO (08:43)
[2024-02-28] MEDS: MULTIVITAMIN W MINERALS 1 EACH TABLET GT (08:43)
[2024-02-28] MEDS: CYANOCOBALAMIN (VITAMIN B-12) 500 MCG TABLET 1000 MCG GT (08:43)
[2024-02-28 09:08] LABS: Basophils % (Auto) 1 % (0-2.5); Eosinophils # (Auto) 0.2 Thou/mm3 (0.0-0.5); Eosinophils % (Auto) 6 % (0-10); Hematocrit 36.8 % (41.0-53.0); Hemoglobin 12.4 g/dL (13.5-16.0); Immature Granulocytes % (Auto) 0 % (0-0); Immature Granulocytes Auto 0.01 Thou/mm3 (0.00-0.00); Lymphocytes % (Auto) 34 % (10-50); Mean Corpuscular HGB Conc 33.7 g/dl (31.0-37.0); Mean Corpuscular Hemoglobin 30.8 pg (25.0-35.0); Mean Corpuscular Volume 91 fL (80-100); Monocytes # (Auto) 0.4 Thou/mm3 (0.0-0.8); Monocytes % (Auto) 12 % (0-12); Neutrophils # (Auto) 1.4 Thou/mm3 (1.8-7.7); Neutrophils % (Auto) 48 % (37-80); Nucleated Red Blood Cell % 0 /100 WBC (0); Platelet Count 129 Thou/mm3 (140-440); RDW Standard Deviation 55.7 fL (35.1-43.9); Red Blood Count 4.03 Miln/mm3 (4.50-5.90)
[2024-02-28 09:30] LABS: Alanine Aminotransferase 20 U/L (10-49); Albumin, Serum 3.5 gm/dL (3.4-4.8); Albumin/Globulin Ratio 1.3 (1.2-2.2); Alkaline Phosphatase 114 U/L (46-116); Anion Gap 5 (7-16); Aspartate Amino Transferase 20 U/L (0-34); BUN/Creatinine Ratio 26 Ratio (12-20); Bilirubin,Total 0.8 mg/dL (0.3-1.2); Blood Urea Nitrogen 13 mg/dL (9-23); Calcium 8.7 mg/dL (8.3-10.6); Calcium (Corrected) 9.1 mg/dL (8.5-10.1); Carbon Dioxide 27.9 mMol/L (20.0-31.0); Cardiac Risk Estimate 3.5 RATIO (4.0-6.7); Chloride 103 mMol/L (98-107); Cholesterol 110 mg/dL (132-200); Creatinine (Component) 0.5 mg/dL (0.6-1.3); Estimated Creatinine Clearance 108.3 mL/min (>60); Globulin 2.8 gm/dL (2.3-3.5); Glucose 117 mg/dL (74-106); Glucose,Fasting 117 mg/dL (74-106); HDL Cholesterol 31 mg/dL (40-60); LDL Cholesterol,Calculated 29 mg/dL (0-130); Osmolality,Calculated 273 (275-295); Potassium 3.9 mMol/L (3.4-5.1); Sodium 136 mMol/L (136-145); Total Protein 6.3 gm/dL (5.7-8.2); Triglycerides 248 mg/dL (30-150); eGFR > 60 See Note
[2024-02-28 09:58] LABS: Glucose Estimated Average 94 mg/dL (80-131); Hemoglobin A1C 4.9 % Hgb (4.8-6.0)
--- NOTE | 2024-02-28 16:05 | PC.NURSE ---
Recieved call from Dr Lemus re: critical value of 3.0 WBC no new orders given.
[2024-02-28] MEDS: ATORVASTATIN 40 MG TABLET GT (20:29)
[2024-02-28] MEDS: INSULIN GLARGINE 100 UNIT/ML INSULN.PEN 30 UNIT SC (21:00)
[2024-02-29] VITALS (8 sets, daily range): BP systolic 95–137; BP diastolic 52–67; PULSE 52–69; RESP 16–19; TEMP 36.1–36.7; O2SAT 94–100
[2024-02-29] MEDS: IPRATROPIUM BROMIDE 200 PUFF/INH INHALER INH ×4 (00:35→18:15)
[2024-02-29] MEDS: ALBUTEROL INHALER 200 PUFF/INH INHALER INH ×4 (00:35→18:15)
[2024-02-29] MEDS: MAGNESIUM HYDROXIDE 30 ML ORAL SUSP ML GT (05:16)
[2024-02-29] MEDS: CARVEDILOL 3.125 MG TABLET GT (09:03)
[2024-02-29] MEDS: CYANOCOBALAMIN (VITAMIN B-12) 500 MCG TABLET 1000 MCG GT (09:04)
[2024-02-29] MEDS: MULTIVITAMIN W MINERALS 1 EACH TABLET GT (09:04)
[2024-02-29] MEDS: DEXLANSOPRAZOLE 30 MG PO (09:04)
[2024-02-29] MEDS: BISACODYL 10 MG SUPP.RECT PR (14:24)
[2024-02-29] MEDS: ATORVASTATIN 40 MG TABLET GT (20:31)
[2024-02-29] MEDS: ACETAMINOPHEN 325 MG TABLET 650 MG GT (20:35)
[2024-02-29] MEDS: INSULIN GLARGINE 100 UNIT/ML INSULN.PEN 30 UNIT SC (21:13)
[2024-03-01] VITALS (8 sets, daily range): BP systolic 96–146; BP diastolic 54–78; PULSE 50–76; RESP 16–20; TEMP 36.3–36.6; O2SAT 96–100
[2024-03-01] MEDS: ALBUTEROL INHALER 200 PUFF/INH INHALER INH ×4 (01:18→18:39)
[2024-03-01] MEDS: IPRATROPIUM BROMIDE 200 PUFF/INH INHALER INH ×4 (01:18→18:39)
[2024-03-01] MEDS: CYANOCOBALAMIN (VITAMIN B-12) 500 MCG TABLET 1000 MCG GT (08:57)
[2024-03-01] MEDS: MULTIVITAMIN W MINERALS 1 EACH TABLET GT (08:57)
[2024-03-01] MEDS: CARVEDILOL 3.125 MG TABLET GT (08:57)
[2024-03-01] MEDS: DEXLANSOPRAZOLE 30 MG PO (08:57)
--- NOTE | 2024-03-01 13:49 | PC.SS ---
Room visit: Resident is laying in bed with head of the bed elevated with call light properly placed with no signs of distress. Resident is well groomed not showing any changes in mood and behavior. Resident remains on blow by with trach in place and GT for medications. Resident will remain in current care and will continue to have all subacute care needs met by staff.
[2024-03-01] MEDS: ATORVASTATIN 40 MG TABLET GT (21:21)
[2024-03-01] MEDS: INSULIN GLARGINE 100 UNIT/ML INSULN.PEN 30 UNIT SC (21:26)
[2024-03-02] VITALS (9 sets, daily range): BP systolic 103–139; BP diastolic 54–76; PULSE 53–62; RESP 16–20; TEMP 36.1–36.7; O2SAT 95–100
[2024-03-02] MEDS: ALBUTEROL INHALER 200 PUFF/INH INHALER INH ×4 (01:37→18:33)
[2024-03-02] MEDS: IPRATROPIUM BROMIDE 200 PUFF/INH INHALER INH ×4 (01:37→18:33)
[2024-03-02] MEDS: CYANOCOBALAMIN (VITAMIN B-12) 500 MCG TABLET 1000 MCG GT (09:00)
[2024-03-02] MEDS: DEXLANSOPRAZOLE 30 MG PO (09:01)
[2024-03-02] MEDS: MULTIVITAMIN W MINERALS 1 EACH TABLET GT (09:01)
[2024-03-02] MEDS: ATORVASTATIN 40 MG TABLET GT (20:46)
[2024-03-02] MEDS: INSULIN GLARGINE 100 UNIT/ML INSULN.PEN 30 UNIT SC (20:51)
--- NOTE | 2024-03-02 22:20 | PD.SAPROG ---
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 No new issues. Prognosis for independent living is poor Plan: Current treatment reviewed and continued
[2024-03-02] MEDS: MAGNESIUM HYDROXIDE 30 ML ORAL SUSP ML GT (22:27)
[2024-03-03] VITALS (9 sets, daily range): BP systolic 108–129; BP diastolic 49–75; PULSE 53–79; RESP 18; TEMP 36.1–36.5; O2SAT 96–100
[2024-03-03] MEDS: IPRATROPIUM BROMIDE 200 PUFF/INH INHALER INH ×4 (01:00→19:35)
[2024-03-03] MEDS: ALBUTEROL INHALER 200 PUFF/INH INHALER INH ×4 (01:00→19:35)
[2024-03-03] MEDS: DEXLANSOPRAZOLE 30 MG PO (08:32)
[2024-03-03] MEDS: MULTIVITAMIN W MINERALS 1 EACH TABLET GT (08:33)
[2024-03-03] MEDS: CYANOCOBALAMIN (VITAMIN B-12) 500 MCG TABLET 1000 MCG GT (08:33)
[2024-03-03] MEDS: BISACODYL 10 MG SUPP.RECT PR (14:30)
[2024-03-03] MEDS: ATORVASTATIN 40 MG TABLET GT (21:19)
[2024-03-03] MEDS: INSULIN GLARGINE 100 UNIT/ML INSULN.PEN 30 UNIT SC (21:20)
[2024-03-04] VITALS (9 sets, daily range): BP systolic 99–115; BP diastolic 54–70; PULSE 40–93; RESP 16–22; TEMP 36.3–36.4; O2SAT 89–97
[2024-03-04] MEDS: ALBUTEROL INHALER 200 PUFF/INH INHALER INH ×4 (00:38→17:36)
[2024-03-04] MEDS: IPRATROPIUM BROMIDE 200 PUFF/INH INHALER INH ×4 (00:38→17:36)
[2024-03-04] MEDS: SODIUM PHOSPHATE,MONO-DIBASIC 133 ML ENEMA PR (02:25)
[2024-03-04] MEDS: CYANOCOBALAMIN (VITAMIN B-12) 500 MCG TABLET 1000 MCG GT (08:34)
[2024-03-04] MEDS: DEXLANSOPRAZOLE 30 MG PO (08:34)
[2024-03-04] MEDS: MULTIVITAMIN W MINERALS 1 EACH TABLET GT (08:34)
[2024-03-04] MEDS: CARVEDILOL 3.125 MG TABLET GT (08:34)
[2024-03-04] MEDS: ATORVASTATIN 40 MG TABLET GT (20:59)
[2024-03-04] MEDS: INSULIN GLARGINE 100 UNIT/ML INSULN.PEN 30 UNIT SC (21:00)
[2024-03-05] VITALS (9 sets, daily range): BP systolic 92–145; BP diastolic 58–80; PULSE 52–73; RESP 18–20; TEMP 36.2–36.9; O2SAT 95–100
[2024-03-05] MEDS: ALBUTEROL INHALER 200 PUFF/INH INHALER INH ×4 (01:25→19:00)
[2024-03-05] MEDS: IPRATROPIUM BROMIDE 200 PUFF/INH INHALER INH ×4 (01:25→19:00)
[2024-03-05] MEDS: CARVEDILOL 3.125 MG TABLET GT (09:00)
[2024-03-05] MEDS: DEXLANSOPRAZOLE 30 MG PO (09:00)
[2024-03-05] MEDS: MULTIVITAMIN W MINERALS 1 EACH TABLET GT (09:00)
[2024-03-05] MEDS: CYANOCOBALAMIN (VITAMIN B-12) 500 MCG TABLET 1000 MCG GT (09:00)
[2024-03-05] MEDS: INSULIN GLARGINE 100 UNIT/ML INSULN.PEN 30 UNIT SC (20:59)
[2024-03-05] MEDS: ATORVASTATIN 40 MG TABLET GT (20:59)
[2024-03-06] VITALS (9 sets, daily range): BP systolic 101–134; BP diastolic 59–78; PULSE 54–84; RESP 16–20; TEMP 36.2–36.9; O2SAT 96–99
[2024-03-06] MEDS: IPRATROPIUM BROMIDE 200 PUFF/INH INHALER INH ×4 (01:24→19:20)
[2024-03-06] MEDS: ALBUTEROL INHALER 200 PUFF/INH INHALER INH ×4 (01:24→19:20)
[2024-03-06] MEDS: MULTIVITAMIN W MINERALS 1 EACH TABLET GT (08:26)
[2024-03-06] MEDS: DEXLANSOPRAZOLE 30 MG PO (08:26)
[2024-03-06] MEDS: CYANOCOBALAMIN (VITAMIN B-12) 500 MCG TABLET 1000 MCG GT (08:26)
--- NOTE | 2024-03-06 18:50 | PD.SAPROG ---
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 No new issues. Prognosis for independent living is poor Plan: Current treatment reviewed and continued
[2024-03-06] MEDS: ATORVASTATIN 40 MG TABLET GT (20:19)
[2024-03-06] MEDS: INSULIN GLARGINE 100 UNIT/ML INSULN.PEN 30 UNIT SC (21:20)
[2024-03-07] VITALS (9 sets, daily range): BP systolic 98–142; BP diastolic 58–87; PULSE 42–78; RESP 16–20; TEMP 36.4–36.9; O2SAT 96–100
[2024-03-07] MEDS: ALBUTEROL INHALER 200 PUFF/INH INHALER INH ×4 (01:15→19:10)
[2024-03-07] MEDS: IPRATROPIUM BROMIDE 200 PUFF/INH INHALER INH ×4 (01:15→19:10)
[2024-03-07] MEDS: CARVEDILOL 3.125 MG TABLET GT (08:03)
[2024-03-07] MEDS: CYANOCOBALAMIN (VITAMIN B-12) 500 MCG TABLET 1000 MCG GT (08:04)
[2024-03-07] MEDS: DEXLANSOPRAZOLE 30 MG PO (08:04)
[2024-03-07] MEDS: MULTIVITAMIN W MINERALS 1 EACH TABLET GT (08:04)
[2024-03-07] MEDS: ACETAMINOPHEN 325 MG TABLET 650 MG GT (20:45)
[2024-03-07] MEDS: ATORVASTATIN 40 MG TABLET GT (20:53)
[2024-03-07] MEDS: INSULIN GLARGINE 100 UNIT/ML INSULN.PEN 30 UNIT SC (21:24)
[2024-03-08] VITALS (10 sets, daily range): BP systolic 102–138; BP diastolic 58–82; PULSE 59–77; RESP 18–24; TEMP 36.2–36.6; O2SAT 97–99
[2024-03-08] MEDS: IPRATROPIUM BROMIDE 200 PUFF/INH INHALER INH ×5 (00:40→18:35)
[2024-03-08] MEDS: ALBUTEROL INHALER 200 PUFF/INH INHALER INH ×5 (00:40→18:35)
[2024-03-08] MEDS: CARVEDILOL 3.125 MG TABLET GT (08:43)
[2024-03-08] MEDS: CYANOCOBALAMIN (VITAMIN B-12) 500 MCG TABLET 1000 MCG GT (08:44)
[2024-03-08] MEDS: DEXLANSOPRAZOLE 30 MG PO (08:45)
[2024-03-08] MEDS: MULTIVITAMIN W MINERALS 1 EACH TABLET GT (08:45)
[2024-03-08] MEDS: ACETAMINOPHEN 325 MG TABLET 650 MG GT (15:19)
--- NOTE | 2024-03-08 15:34 | PC.NURSE ---
AFTER TRANSPORTING PT TO HIS ROOM FROM ACTIVITIES, PT WAS COUGHING AND LIPS WERE SLIGHTLY BLUE. OXYGEN SAT WAS AT 89% ON 6L 28% OXYGEN. OXYGEN WAS INCREASED TO 100% AND PT WAS SUCTIONED. PT RECOVERED AND OXYGEN SATURATION WENT UP TO 97%. VS WERE STABLE AT BP 136/75 HR 70 TEMP 98.0 SPO2 99% RR 20. RAINA THE RT ARRIVED AND WEANED PT DOWN TO 10L 35% OXYGEN.
[2024-03-08] MEDS: INSULIN GLARGINE 100 UNIT/ML INSULN.PEN 30 UNIT SC (20:32)
[2024-03-08] MEDS: ATORVASTATIN 40 MG TABLET GT (20:32)
[2024-03-09] VITALS (9 sets, daily range): BP systolic 103–133; BP diastolic 48–80; PULSE 53–84; RESP 16–20; TEMP 36.3–36.5; O2SAT 96–98
[2024-03-09] MEDS: IPRATROPIUM BROMIDE 200 PUFF/INH INHALER INH ×4 (01:08→18:52)
[2024-03-09] MEDS: ALBUTEROL INHALER 200 PUFF/INH INHALER INH ×4 (01:08→18:52)
[2024-03-09] MEDS: CYANOCOBALAMIN (VITAMIN B-12) 500 MCG TABLET 1000 MCG GT (08:06)
[2024-03-09] MEDS: DEXLANSOPRAZOLE 30 MG PO (08:06)
[2024-03-09] MEDS: MULTIVITAMIN W MINERALS 1 EACH TABLET GT (08:06)
[2024-03-09] MEDS: CARVEDILOL 3.125 MG TABLET GT (08:06)
[2024-03-09] MEDS: ATORVASTATIN 40 MG TABLET GT (21:10)
[2024-03-09] MEDS: INSULIN GLARGINE 100 UNIT/ML INSULN.PEN 30 UNIT SC (21:11)
[2024-03-10] VITALS (9 sets, daily range): BP systolic 106–131; BP diastolic 54–86; PULSE 46–70; RESP 16–19; TEMP 36.3–36.6; O2SAT 96–98
[2024-03-10] MEDS: ALBUTEROL INHALER 200 PUFF/INH INHALER INH ×4 (00:27→19:30)
[2024-03-10] MEDS: IPRATROPIUM BROMIDE 200 PUFF/INH INHALER INH ×4 (00:27→19:30)
[2024-03-10] MEDS: DEXLANSOPRAZOLE 30 MG PO (08:54)
[2024-03-10] MEDS: CYANOCOBALAMIN (VITAMIN B-12) 500 MCG TABLET 1000 MCG GT (08:54)
[2024-03-10] MEDS: ATORVASTATIN 40 MG TABLET GT (21:14)
[2024-03-10] MEDS: INSULIN GLARGINE 100 UNIT/ML INSULN.PEN 30 UNIT SC (21:15)
--- NOTE | 2024-03-10 22:45 | PD.SAPROG ---
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 No new issues. Prognosis for independent living is poor Plan: Current treatment reviewed and continued
[2024-03-11] VITALS (9 sets, daily range): BP systolic 92–147; BP diastolic 57–84; PULSE 49–87; RESP 15–18; TEMP 36.2–36.9; O2SAT 96–100
[2024-03-11] MEDS: ALBUTEROL INHALER 200 PUFF/INH INHALER INH ×4 (00:35→19:13)
[2024-03-11] MEDS: IPRATROPIUM BROMIDE 200 PUFF/INH INHALER INH ×4 (00:35→19:13)
[2024-03-11] MEDS: DEXLANSOPRAZOLE 30 MG PO (08:20)
[2024-03-11] MEDS: MULTIVITAMIN W MINERALS 1 EACH TABLET GT (08:20)
[2024-03-11] MEDS: CYANOCOBALAMIN (VITAMIN B-12) 500 MCG TABLET 1000 MCG GT (08:20)
[2024-03-11] MEDS: ATORVASTATIN 40 MG TABLET GT (20:56)
[2024-03-11] MEDS: INSULIN GLARGINE 100 UNIT/ML INSULN.PEN 30 UNIT SC (20:56)
[2024-03-12] VITALS (7 sets, daily range): BP systolic 125–139; BP diastolic 71–75; PULSE 54–75; RESP 16–20; TEMP 36.4; O2SAT 96–99
[2024-03-12] MEDS: IPRATROPIUM BROMIDE 200 PUFF/INH INHALER INH ×4 (01:38→18:40)
[2024-03-12] MEDS: ALBUTEROL INHALER 200 PUFF/INH INHALER INH ×4 (01:38→18:40)
[2024-03-12] MEDS: DEXLANSOPRAZOLE 30 MG PO (08:32)
[2024-03-12] MEDS: CYANOCOBALAMIN (VITAMIN B-12) 500 MCG TABLET 1000 MCG GT (08:32)
[2024-03-12] MEDS: MULTIVITAMIN W MINERALS 1 EACH TABLET GT (08:33)
[2024-03-12] MEDS: ATORVASTATIN 40 MG TABLET GT (20:45)
[2024-03-12] MEDS: INSULIN GLARGINE 100 UNIT/ML INSULN.PEN 30 UNIT SC (21:26)
[2024-03-13] VITALS (9 sets, daily range): BP systolic 113–145; BP diastolic 66–88; PULSE 60–77; RESP 16–22; TEMP 36.1–36.8; O2SAT 96–99
[2024-03-13] MEDS: ALBUTEROL INHALER 200 PUFF/INH INHALER INH ×4 (01:20→18:42)
[2024-03-13] MEDS: IPRATROPIUM BROMIDE 200 PUFF/INH INHALER INH ×4 (01:20→18:42)
[2024-03-13] MEDS: CARVEDILOL 3.125 MG TABLET GT (08:42)
[2024-03-13] MEDS: CYANOCOBALAMIN (VITAMIN B-12) 500 MCG TABLET 1000 MCG GT (08:44)
[2024-03-13] MEDS: MULTIVITAMIN W MINERALS 1 EACH TABLET GT (08:45)
[2024-03-13] MEDS: DEXLANSOPRAZOLE 30 MG PO (08:45)
--- NOTE | 2024-03-13 14:36 | PC.SS ---
Resident seen by assistant pastry chef/Dr. Smith, he had toe nails trimmed with no new orders or recommendations he will continue current care.
[2024-03-13] MEDS: ATORVASTATIN 40 MG TABLET GT (20:33)
[2024-03-13] MEDS: MAGNESIUM HYDROXIDE 30 ML ORAL SUSP ML GT (20:43)
[2024-03-13] MEDS: INSULIN GLARGINE 100 UNIT/ML INSULN.PEN 30 UNIT SC (21:27)
[2024-03-14] VITALS (9 sets, daily range): BP systolic 105–131; BP diastolic 67–87; PULSE 65–87; RESP 16–18; TEMP 36.2–36.8; O2SAT 96–99
[2024-03-14] MEDS: IPRATROPIUM BROMIDE 200 PUFF/INH INHALER INH ×4 (00:30→18:21)
[2024-03-14] MEDS: ALBUTEROL INHALER 200 PUFF/INH INHALER INH ×4 (00:30→18:21)
[2024-03-14] MEDS: CYANOCOBALAMIN (VITAMIN B-12) 500 MCG TABLET 1000 MCG GT (08:44)
[2024-03-14] MEDS: CARVEDILOL 3.125 MG TABLET GT (08:44)
[2024-03-14] MEDS: DEXLANSOPRAZOLE 30 MG PO (08:44)
[2024-03-14] MEDS: MULTIVITAMIN W MINERALS 1 EACH TABLET GT (08:45)
[2024-03-14] MEDS: BISACODYL 10 MG SUPP.RECT PR (10:45)
--- NOTE | 2024-03-14 13:50 | PD.SAPROG ---
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 No new issues. Prognosis for independent living is poor Plan: Current treatment reviewed and continued
[2024-03-14] MEDS: ATORVASTATIN 40 MG TABLET GT (20:52)
[2024-03-14] MEDS: INSULIN GLARGINE 100 UNIT/ML INSULN.PEN 30 UNIT SC (21:13)
[2024-03-15] VITALS (9 sets, daily range): BP systolic 94–122; BP diastolic 51–73; PULSE 54–85; RESP 18–20; TEMP 36.1–36.4; O2SAT 97–99
[2024-03-15] MEDS: ALBUTEROL INHALER 200 PUFF/INH INHALER INH ×4 (00:30→18:42)
[2024-03-15] MEDS: IPRATROPIUM BROMIDE 200 PUFF/INH INHALER INH ×4 (00:30→18:42)
[2024-03-15] MEDS: CYANOCOBALAMIN (VITAMIN B-12) 500 MCG TABLET 1000 MCG GT (08:39)
[2024-03-15] MEDS: CARVEDILOL 3.125 MG TABLET GT (08:39)
[2024-03-15] MEDS: DEXLANSOPRAZOLE 30 MG PO (08:40)
[2024-03-15] MEDS: MULTIVITAMIN W MINERALS 1 EACH TABLET GT (08:40)
[2024-03-15] MEDS: ATORVASTATIN 40 MG TABLET GT (21:11)
[2024-03-15] MEDS: INSULIN GLARGINE 100 UNIT/ML INSULN.PEN 30 UNIT SC (21:22)
[2024-03-16] VITALS (9 sets, daily range): BP systolic 110–150; BP diastolic 59–84; PULSE 50–73; RESP 16–20; TEMP 36.3–36.7; O2SAT 96–99
[2024-03-16] MEDS: ALBUTEROL INHALER 200 PUFF/INH INHALER INH ×4 (00:32→18:42)
[2024-03-16] MEDS: IPRATROPIUM BROMIDE 200 PUFF/INH INHALER INH ×4 (00:32→18:42)
[2024-03-16] MEDS: CARVEDILOL 3.125 MG TABLET GT (08:10)
[2024-03-16] MEDS: DEXLANSOPRAZOLE 30 MG PO (08:11)
[2024-03-16] MEDS: MULTIVITAMIN W MINERALS 1 EACH TABLET GT (08:11)
[2024-03-16] MEDS: CYANOCOBALAMIN (VITAMIN B-12) 500 MCG TABLET 1000 MCG GT (08:11)
[2024-03-16] MEDS: CARBAMIDE PEROXIDE OTIC SOL 15 ML BTL 5 DROP BOTH EARS ×2 (08:18→20:39)
[2024-03-16] MEDS: ATORVASTATIN 40 MG TABLET GT (20:39)
[2024-03-16] MEDS: INSULIN GLARGINE 100 UNIT/ML INSULN.PEN 30 UNIT SC (21:43)
[2024-03-17] VITALS (8 sets, daily range): BP systolic 109–153; BP diastolic 62–75; PULSE 57–71; RESP 16–20; TEMP 36.1–36.7; O2SAT 96–98
[2024-03-17] MEDS: ALBUTEROL INHALER 200 PUFF/INH INHALER INH ×3 (00:46→16:58)
[2024-03-17] MEDS: IPRATROPIUM BROMIDE 200 PUFF/INH INHALER INH ×3 (00:46→16:58)
[2024-03-17] MEDS: CARVEDILOL 3.125 MG TABLET GT (08:31)
[2024-03-17] MEDS: CARBAMIDE PEROXIDE OTIC SOL 15 ML BTL 5 DROP BOTH EARS (08:31)
[2024-03-17] MEDS: CYANOCOBALAMIN (VITAMIN B-12) 500 MCG TABLET 1000 MCG GT (08:31)
[2024-03-17] MEDS: DEXLANSOPRAZOLE 30 MG PO (08:31)
[2024-03-17] MEDS: MULTIVITAMIN W MINERALS 1 EACH TABLET GT (08:31)
[2024-03-17] MEDS: ATORVASTATIN 40 MG TABLET GT (20:57)
[2024-03-17] MEDS: INSULIN GLARGINE 100 UNIT/ML INSULN.PEN 30 UNIT SC (21:17)
[2024-03-18] VITALS (10 sets, daily range): BP systolic 110–128; BP diastolic 62–77; PULSE 48–95; RESP 16–20; TEMP 36.1–36.4; O2SAT 95–99
[2024-03-18] MEDS: ALBUTEROL INHALER 200 PUFF/INH INHALER INH ×4 (02:01→18:40)
[2024-03-18] MEDS: IPRATROPIUM BROMIDE 200 PUFF/INH INHALER INH ×4 (06:00→18:40)
[2024-03-18] MEDS: MULTIVITAMIN W MINERALS 1 EACH TABLET GT (08:35)
[2024-03-18] MEDS: CARVEDILOL 3.125 MG TABLET GT (08:35)
[2024-03-18] MEDS: CYANOCOBALAMIN (VITAMIN B-12) 500 MCG TABLET 1000 MCG GT (08:35)
[2024-03-18] MEDS: DEXLANSOPRAZOLE 30 MG PO (08:35)
[2024-03-18] MEDS: CARBAMIDE PEROXIDE OTIC SOL 15 ML BTL 5 DROP BOTH EARS ×2 (08:35→21:11)
[2024-03-18] MEDS: INSULIN GLARGINE 100 UNIT/ML INSULN.PEN 30 UNIT SC (21:11)
[2024-03-18] MEDS: ATORVASTATIN 40 MG TABLET GT (21:11)
[2024-03-19] VITALS (8 sets, daily range): BP systolic 97–137; BP diastolic 52–73; PULSE 52–76; RESP 18–20; TEMP 36.2–36.8; O2SAT 97–98
[2024-03-19] MEDS: IPRATROPIUM BROMIDE 200 PUFF/INH INHALER INH ×4 (00:46→19:57)
[2024-03-19] MEDS: ALBUTEROL INHALER 200 PUFF/INH INHALER INH ×4 (00:46→19:57)
[2024-03-19] MEDS: CARBAMIDE PEROXIDE OTIC SOL 15 ML BTL 5 DROP BOTH EARS ×2 (08:35→20:55)
[2024-03-19] MEDS: CYANOCOBALAMIN (VITAMIN B-12) 500 MCG TABLET 1000 MCG GT (08:36)
[2024-03-19] MEDS: DEXLANSOPRAZOLE 30 MG PO (08:36)
[2024-03-19] MEDS: MULTIVITAMIN W MINERALS 1 EACH TABLET GT (08:36)
[2024-03-19] MEDS: ACETAMINOPHEN 325 MG TABLET 650 MG GT (20:40)
[2024-03-19] MEDS: ATORVASTATIN 40 MG TABLET GT (20:55)
[2024-03-19] MEDS: INSULIN GLARGINE 100 UNIT/ML INSULN.PEN 30 UNIT SC (21:18)
[2024-03-20] VITALS (9 sets, daily range): BP systolic 98–124; BP diastolic 50–71; PULSE 51–70; RESP 16–20; TEMP 36.1–36.5; O2SAT 96–99
[2024-03-20] MEDS: IPRATROPIUM BROMIDE 200 PUFF/INH INHALER INH ×4 (00:29→18:55)
[2024-03-20] MEDS: ALBUTEROL INHALER 200 PUFF/INH INHALER INH ×4 (00:29→18:55)
[2024-03-20] MEDS: CYANOCOBALAMIN (VITAMIN B-12) 500 MCG TABLET 1000 MCG GT (08:37)
[2024-03-20] MEDS: MULTIVITAMIN W MINERALS 1 EACH TABLET GT (08:38)
[2024-03-20] MEDS: DEXLANSOPRAZOLE 30 MG PO (08:38)
[2024-03-20] MEDS: ATORVASTATIN 40 MG TABLET GT (21:29)
[2024-03-20] MEDS: INSULIN GLARGINE 100 UNIT/ML INSULN.PEN 30 UNIT SC (21:32)
[2024-03-21] VITALS (9 sets, daily range): BP systolic 106–151; BP diastolic 52–82; PULSE 55–87; RESP 18–19; TEMP 36.1–37.3; O2SAT 93–100
[2024-03-21] MEDS: IPRATROPIUM BROMIDE 200 PUFF/INH INHALER INH ×4 (01:11→19:25)
[2024-03-21] MEDS: ALBUTEROL INHALER 200 PUFF/INH INHALER INH ×4 (01:11→19:25)
[2024-03-21] MEDS: DEXLANSOPRAZOLE 30 MG PO (08:21)
[2024-03-21] MEDS: CYANOCOBALAMIN (VITAMIN B-12) 500 MCG TABLET 1000 MCG GT (08:21)
[2024-03-21] MEDS: MULTIVITAMIN W MINERALS 1 EACH TABLET GT (08:21)
[2024-03-21] MEDS: ATORVASTATIN 40 MG TABLET GT (20:51)
[2024-03-21] MEDS: INSULIN GLARGINE 100 UNIT/ML INSULN.PEN 30 UNIT SC (20:54)
[2024-03-22] VITALS (9 sets, daily range): BP systolic 99–130; BP diastolic 72–89; PULSE 50–81; RESP 16–19; TEMP 36.2–37.1; O2SAT 96–99
[2024-03-22] MEDS: ALBUTEROL INHALER 200 PUFF/INH INHALER INH ×4 (01:20→18:31)
[2024-03-22] MEDS: IPRATROPIUM BROMIDE 200 PUFF/INH INHALER INH ×4 (01:20→18:31)
[2024-03-22] MEDS: CARVEDILOL 3.125 MG TABLET GT (09:01)
[2024-03-22] MEDS: CYANOCOBALAMIN (VITAMIN B-12) 500 MCG TABLET 1000 MCG GT (09:02)
[2024-03-22] MEDS: DEXLANSOPRAZOLE 30 MG PO (09:02)
[2024-03-22] MEDS: MULTIVITAMIN W MINERALS 1 EACH TABLET GT (09:02)
[2024-03-22] MEDS: ATORVASTATIN 40 MG TABLET GT (20:36)
[2024-03-22] MEDS: INSULIN GLARGINE 100 UNIT/ML INSULN.PEN 30 UNIT SC (20:36)
[2024-03-22] MEDS: ACETAMINOPHEN 325 MG TABLET 650 MG GT (20:40)
--- NOTE | 2024-03-22 22:55 | PD.SAPROG ---
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 No new issues. Prognosis for independent living is poor Plan: Current treatment reviewed and continued
[2024-03-23] VITALS (9 sets, daily range): BP systolic 103–140; BP diastolic 44–92; PULSE 60–81; RESP 16–18; TEMP 36.1–36.8; O2SAT 95–98
[2024-03-23] MEDS: IPRATROPIUM BROMIDE 200 PUFF/INH INHALER INH ×4 (00:24→19:13)
[2024-03-23] MEDS: ALBUTEROL INHALER 200 PUFF/INH INHALER INH ×4 (00:24→19:13)
[2024-03-23] MEDS: CARVEDILOL 3.125 MG TABLET GT (08:45)
[2024-03-23] MEDS: CYANOCOBALAMIN (VITAMIN B-12) 500 MCG TABLET 1000 MCG GT (08:45)
[2024-03-23] MEDS: DEXLANSOPRAZOLE 30 MG PO (08:45)
[2024-03-23] MEDS: MULTIVITAMIN W MINERALS 1 EACH TABLET GT (08:46)
--- NOTE | 2024-03-23 14:09 | PC.SS ---
Room visit: Resident is laying in bed with head of the bed elevated with call light properly placed with no signs of distress. Resident has no changes in care or condition as he remains on blow by with trach in place and GT for medication and nutrition. He will continue to have all subacute care needs met by staff, as he is unable to make needs known. This SSD will make daily contact with resident and offer support as needed.
[2024-03-23] MEDS: ACETAMINOPHEN 325 MG TABLET 650 MG GT (20:30)
[2024-03-23] MEDS: ATORVASTATIN 40 MG TABLET GT (20:44)
[2024-03-23] MEDS: INSULIN GLARGINE 100 UNIT/ML INSULN.PEN 30 UNIT SC (21:38)
[2024-03-24] VITALS (9 sets, daily range): BP systolic 102–137; BP diastolic 48–80; PULSE 49–73; RESP 16–18; TEMP 36.1–36.4; O2SAT 92–100
[2024-03-24] MEDS: ALBUTEROL INHALER 200 PUFF/INH INHALER INH ×4 (00:54→20:07)
[2024-03-24] MEDS: IPRATROPIUM BROMIDE 200 PUFF/INH INHALER INH ×4 (00:54→20:07)
[2024-03-24] MEDS: CYANOCOBALAMIN (VITAMIN B-12) 500 MCG TABLET 1000 MCG GT (08:41)
[2024-03-24] MEDS: DEXLANSOPRAZOLE 30 MG PO (08:42)
[2024-03-24] MEDS: MULTIVITAMIN W MINERALS 1 EACH TABLET GT (08:42)
[2024-03-24] MEDS: INSULIN GLARGINE 100 UNIT/ML INSULN.PEN 30 UNIT SC (21:05)
[2024-03-24] MEDS: ATORVASTATIN 40 MG TABLET GT (21:11)
[2024-03-25] VITALS (9 sets, daily range): BP systolic 117–148; BP diastolic 57–81; PULSE 52–76; RESP 16–20; TEMP 36.1–36.7; O2SAT 97–99
[2024-03-25] MEDS: ALBUTEROL INHALER 200 PUFF/INH INHALER INH ×4 (00:52→18:26)
[2024-03-25] MEDS: IPRATROPIUM BROMIDE 200 PUFF/INH INHALER INH ×4 (00:52→18:26)
[2024-03-25] MEDS: DEXLANSOPRAZOLE 30 MG PO (08:19)
[2024-03-25] MEDS: CYANOCOBALAMIN (VITAMIN B-12) 500 MCG TABLET 1000 MCG GT (08:19)
[2024-03-25] MEDS: MULTIVITAMIN W MINERALS 1 EACH TABLET GT (08:19)
[2024-03-25] MEDS: ACETAMINOPHEN 325 MG TABLET 650 MG GT (13:11)
[2024-03-25] MEDS: ATORVASTATIN 40 MG TABLET GT (20:00)
[2024-03-25] MEDS: INSULIN GLARGINE 100 UNIT/ML INSULN.PEN 30 UNIT SC (21:20)
[2024-03-26] VITALS (7 sets, daily range): BP systolic 98–130; BP diastolic 65–88; PULSE 60–86; RESP 16–18; TEMP 36.3–36.4; O2SAT 97–98
[2024-03-26] MEDS: IPRATROPIUM BROMIDE 200 PUFF/INH INHALER INH ×4 (00:31→18:17)
[2024-03-26] MEDS: ALBUTEROL INHALER 200 PUFF/INH INHALER INH ×4 (00:31→18:17)
[2024-03-26] MEDS: CARVEDILOL 3.125 MG TABLET GT (08:34)
[2024-03-26] MEDS: MULTIVITAMIN W MINERALS 1 EACH TABLET GT (08:35)
[2024-03-26] MEDS: DEXLANSOPRAZOLE 30 MG PO (08:35)
[2024-03-26] MEDS: CYANOCOBALAMIN (VITAMIN B-12) 500 MCG TABLET 1000 MCG GT (08:35)
[2024-03-26] MEDS: ATORVASTATIN 40 MG TABLET GT (20:45)
[2024-03-26] MEDS: INSULIN GLARGINE 100 UNIT/ML INSULN.PEN 30 UNIT SC (20:58)
--- NOTE | 2024-03-26 23:39 | PD.SAPROG ---
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 No new issues. Prognosis for independent living is poor Plan: Current treatment reviewed and continued
[2024-03-27] VITALS (9 sets, daily range): BP systolic 107–146; BP diastolic 63–83; PULSE 52–83; RESP 16–20; TEMP 36.4–36.8; O2SAT 97–99
[2024-03-27] MEDS: IPRATROPIUM BROMIDE 200 PUFF/INH INHALER INH ×4 (00:06→20:14)
[2024-03-27] MEDS: ALBUTEROL INHALER 200 PUFF/INH INHALER INH ×4 (00:06→20:14)
[2024-03-27] MEDS: CYANOCOBALAMIN (VITAMIN B-12) 500 MCG TABLET 1000 MCG GT (08:23)
[2024-03-27] MEDS: CARVEDILOL 3.125 MG TABLET GT (08:23)
[2024-03-27] MEDS: DEXLANSOPRAZOLE 30 MG PO (08:23)
[2024-03-27] MEDS: MULTIVITAMIN W MINERALS 1 EACH TABLET GT (08:23)
[2024-03-27] MEDS: ACETAMINOPHEN 325 MG TABLET 650 MG GT (20:00)
[2024-03-27] MEDS: INSULIN GLARGINE 100 UNIT/ML INSULN.PEN 30 UNIT SC (20:34)
[2024-03-27] MEDS: ATORVASTATIN 40 MG TABLET GT (20:35)
[2024-03-28] VITALS (11 sets, daily range): BP systolic 113–139; BP diastolic 58–87; PULSE 56–73; RESP 16–23; TEMP 36.1–36.2; O2SAT 96–98
[2024-03-28] MEDS: ALBUTEROL INHALER 200 PUFF/INH INHALER INH ×3 (06:05→19:43)
[2024-03-28] MEDS: IPRATROPIUM BROMIDE 200 PUFF/INH INHALER INH ×3 (06:05→19:43)
[2024-03-28] MEDS: CYANOCOBALAMIN (VITAMIN B-12) 500 MCG TABLET 1000 MCG GT (08:31)
[2024-03-28] MEDS: MULTIVITAMIN W MINERALS 1 EACH TABLET GT (08:31)
[2024-03-28] MEDS: CARVEDILOL 3.125 MG TABLET GT (08:31)
[2024-03-28] MEDS: DEXLANSOPRAZOLE 30 MG PO (08:31)
--- NOTE | 2024-03-28 14:25 | PD.SAPROG ---
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 No new issues. Prognosis for independent living is poor Plan: Current treatment reviewed and continued
[2024-03-28] MEDS: ACETAMINOPHEN 325 MG TABLET 650 MG GT (20:15)
[2024-03-28] MEDS: ATORVASTATIN 40 MG TABLET GT (20:16)
[2024-03-28] MEDS: INSULIN GLARGINE 100 UNIT/ML INSULN.PEN 30 UNIT SC (20:16)
[2024-03-29] VITALS (9 sets, daily range): BP systolic 94–138; BP diastolic 56–80; PULSE 55–83; RESP 16–18; TEMP 35.9–36.3; O2SAT 97–99
[2024-03-29] MEDS: IPRATROPIUM BROMIDE 200 PUFF/INH INHALER INH ×4 (01:07→18:03)
[2024-03-29] MEDS: ALBUTEROL INHALER 200 PUFF/INH INHALER INH ×4 (01:07→18:03)
[2024-03-29] MEDS: CYANOCOBALAMIN (VITAMIN B-12) 500 MCG TABLET 1000 MCG GT (08:19)
[2024-03-29] MEDS: DEXLANSOPRAZOLE 30 MG PO (08:19)
[2024-03-29] MEDS: MULTIVITAMIN W MINERALS 1 EACH TABLET GT (08:19)
[2024-03-29] MEDS: ACETAMINOPHEN 325 MG TABLET 650 MG GT (12:49)
[2024-03-29] MEDS: ATORVASTATIN 40 MG TABLET GT (21:25)
[2024-03-29] MEDS: INSULIN GLARGINE 100 UNIT/ML INSULN.PEN 30 UNIT SC (21:25)
[2024-03-30] VITALS (9 sets, daily range): BP systolic 97–153; BP diastolic 54–87; PULSE 64–102; RESP 18–20; TEMP 36.1–36.8; O2SAT 96–100
[2024-03-30] MEDS: IPRATROPIUM BROMIDE 200 PUFF/INH INHALER INH ×4 (01:05→18:15)
[2024-03-30] MEDS: ALBUTEROL INHALER 200 PUFF/INH INHALER INH ×4 (01:05→18:15)
[2024-03-30] MEDS: CYANOCOBALAMIN (VITAMIN B-12) 500 MCG TABLET 1000 MCG GT (08:27)
[2024-03-30] MEDS: DEXLANSOPRAZOLE 30 MG PO (08:27)
[2024-03-30] MEDS: MULTIVITAMIN W MINERALS 1 EACH TABLET GT (08:27)
--- NOTE | 2024-03-30 14:35 | PC.SS ---
Room visit: Resident is laying in bed with head of the bed elevated with call light properly placed with no signs of distress. Resident is on blow by with trach in place, GT in place for medication and nutrition. Resident will remain in current care and will have all subacute care needs met by staff. SSD will continue to make daily room visits and offer support as needed.
[2024-03-30] MEDS: INSULIN GLARGINE 100 UNIT/ML INSULN.PEN 30 UNIT SC (21:13)
[2024-03-30] MEDS: ATORVASTATIN 40 MG TABLET GT (21:13)
[2024-03-31] VITALS (9 sets, daily range): BP systolic 95–148; BP diastolic 45–71; PULSE 54–77; RESP 18–20; TEMP 36–36.3; O2SAT 92–98
[2024-03-31] MEDS: IPRATROPIUM BROMIDE 200 PUFF/INH INHALER INH ×4 (00:25→18:58)
[2024-03-31] MEDS: ALBUTEROL INHALER 200 PUFF/INH INHALER INH ×4 (00:25→18:58)
[2024-03-31] MEDS: DEXLANSOPRAZOLE 30 MG PO (08:24)
[2024-03-31] MEDS: CYANOCOBALAMIN (VITAMIN B-12) 500 MCG TABLET 1000 MCG GT (08:24)
[2024-03-31] MEDS: MULTIVITAMIN W MINERALS 1 EACH TABLET GT (08:24)
[2024-03-31] MEDS: INSULIN GLARGINE 100 UNIT/ML INSULN.PEN 30 UNIT SC (21:20)
[2024-03-31] MEDS: ATORVASTATIN 40 MG TABLET GT (21:21)
[2024-04-01] VITALS (9 sets, daily range): BP systolic 90–105; BP diastolic 50–64; PULSE 50–88; RESP 18–20; TEMP 36–36.3; O2SAT 94–98
[2024-04-01] MEDS: IPRATROPIUM BROMIDE 200 PUFF/INH INHALER INH ×4 (00:33→19:30)
[2024-04-01] MEDS: ALBUTEROL INHALER 200 PUFF/INH INHALER INH ×4 (00:33→19:30)
[2024-04-01] MEDS: CYANOCOBALAMIN (VITAMIN B-12) 500 MCG TABLET 1000 MCG GT (08:06)
[2024-04-01] MEDS: CARVEDILOL 3.125 MG TABLET GT (08:06)
[2024-04-01] MEDS: MULTIVITAMIN W MINERALS 1 EACH TABLET GT (08:07)
[2024-04-01] MEDS: DEXLANSOPRAZOLE 30 MG PO (08:07)
[2024-04-01] MEDS: INSULIN GLARGINE 100 UNIT/ML INSULN.PEN 30 UNIT SC (21:07)
[2024-04-01] MEDS: ATORVASTATIN 40 MG TABLET GT (21:07)
[2024-04-02] VITALS (8 sets, daily range): BP systolic 107–133; BP diastolic 64–74; PULSE 62–80; RESP 18–22; TEMP 36.2–36.8; O2SAT 94–97
[2024-04-02] MEDS: ALBUTEROL INHALER 200 PUFF/INH INHALER INH ×4 (00:11→18:34)
[2024-04-02] MEDS: IPRATROPIUM BROMIDE 200 PUFF/INH INHALER INH ×4 (00:11→18:34)
[2024-04-02] MEDS: CARVEDILOL 3.125 MG TABLET GT (08:34)
[2024-04-02] MEDS: MULTIVITAMIN W MINERALS 1 EACH TABLET GT (08:35)
[2024-04-02] MEDS: DEXLANSOPRAZOLE 30 MG PO (08:35)
[2024-04-02] MEDS: CYANOCOBALAMIN (VITAMIN B-12) 500 MCG TABLET 1000 MCG GT (08:35)
[2024-04-02] MEDS: ACETAMINOPHEN 325 MG TABLET 650 MG GT (20:00)
[2024-04-02] MEDS: INSULIN GLARGINE 100 UNIT/ML INSULN.PEN 30 UNIT SC (20:13)
[2024-04-02] MEDS: ATORVASTATIN 40 MG TABLET GT (20:14)
[2024-04-03] VITALS (14 sets, daily range): BP systolic 94–169; BP diastolic 56–79; PULSE 49–105; RESP 18–36; TEMP 36.1–36.8; O2SAT 89–100
[2024-04-03] MEDS: IPRATROPIUM BROMIDE 200 PUFF/INH INHALER INH ×6 (00:01→23:01)
[2024-04-03] MEDS: ALBUTEROL INHALER 200 PUFF/INH INHALER INH ×7 (00:01→23:01)
[2024-04-03] MEDS: ACETAMINOPHEN 325 MG TABLET 650 MG GT ×3 (05:00→22:00)
[2024-04-03] MEDS: CARVEDILOL 3.125 MG TABLET GT (08:10)
[2024-04-03] MEDS: CYANOCOBALAMIN (VITAMIN B-12) 500 MCG TABLET 1000 MCG GT (08:11)
[2024-04-03] MEDS: MULTIVITAMIN W MINERALS 1 EACH TABLET GT (08:12)
[2024-04-03] MEDS: DEXLANSOPRAZOLE 30 MG PO (08:12)
--- NOTE | 2024-04-03 08:19 | XR_ITS ---
Examination: AP chest single view Technique one AP portable semiupright chest single view Exam date and time: April 03, 2024 0833 hrs. Indications: Tracheostomy tube tip adjustment Findings: Tracheostomy tube tip 7.8 cm above carlo Mild opacity left base Right lung clear Moderate vascular congestion Severe osteopenia Impression: Tracheostomy tube tip 7.8 cm above carlo Atelectasis versus pneumonia left base clinical correlation advised
--- NOTE | 2024-04-03 08:45 | PC.NURSE ---
Resident had increase respiration,and shortness of breath, breathing treatment was given, RT did a routine trach changed last night, . called and order stat x-ray to check trach placement. order noted and carried out, we will continue to monitor.
[2024-04-03] MEDS: ATORVASTATIN 40 MG TABLET GT (20:18)
[2024-04-03] MEDS: INSULIN GLARGINE 100 UNIT/ML INSULN.PEN 30 UNIT SC (20:19)
[2024-04-04] VITALS (8 sets, daily range): BP systolic 83–168; BP diastolic 54–92; PULSE 58–99; RESP 18–28; TEMP 36.1–36.8; O2SAT 97–100
--- NOTE | 2024-04-04 | PC.NURSE ---
RESIDENT SENT TO ER FOR FURTHER EVALUATION VIA BED WITH RTs LAUREN AND TIFFANY JACOBSON. RESIDENT WITH LABORED BREATHING ON 50% FI02 WITH O2 SAT 92%. RT GIVEN BREATHING TREATMENT BUT NO IMPROVEMENT. RESIDENT UNABLE TO MAINTAIN SATURATION AFTER BREATHING TREATMENT, INCREASE FIO2 TO 100%. RR 33 HR 104. SON CALLED TO INFORM OF RESIDENT STATUS AND TRANSFER TO ER.
--- NOTE | 2024-04-04 | PC.RT ---
pt given a prn due to labored breathing, auscultated very diminish bs, inline suction pass through easy x2, small amount of thin frothy sputum, no improvement post tx , spo2 dropped to 87% RR remained labored in the 30s, fio2 incresed to 100%, no no changes in breath sounds, pt taken taken to ED. while in route to ED pt started vomiting x3, once on ED pt connected to the pulse ox monitor on current settings spo2 98%, RR improved, fio2 titrated to 10L 50% spo2 maintaining at 92%.
--- NOTE | 2024-04-04 01:30 | PC.NURSE ---
RECEIVED RESIDENT BACK FROM ER VIA BED. NO SIGN OF DISTRESS. RESIDENT RESTING NO DISCOMFORT NOTED. ON 10L 40% FI02 O2 SAT 97%. RESUME CARE. RR 20, HR 83.
--- NOTE | 2024-04-04 01:46 | PC.RT ---
pt transfered back to subacute with RN brunilda, pt spo2 94% hr 85 on 10L 40%, no complications, once in room no changes in settings 10L 40%, hr in the 80s, spo2 98%, GENA Castro at bedside, trach care done and trach collar changed, as soon as trcr finished pt started labored breathing, spo2 dropped to 74%, increased fio2 to 100% for about 2 min, spo2 improved to 100% titrated fio2 to 40% flow remaining at 10, noticed an immediate RR improvement.
[2024-04-04] MEDS: IPRATROPIUM BROMIDE 200 PUFF/INH INHALER INH ×3 (06:51→19:22)
[2024-04-04] MEDS: ALBUTEROL INHALER 200 PUFF/INH INHALER INH ×3 (06:51→19:22)
[2024-04-04] MEDS: CARVEDILOL 3.125 MG TABLET GT (08:49)
[2024-04-04] MEDS: CYANOCOBALAMIN (VITAMIN B-12) 500 MCG TABLET 1000 MCG GT (08:50)
[2024-04-04] MEDS: MULTIVITAMIN W MINERALS 1 EACH TABLET GT (08:50)
[2024-04-04] MEDS: DEXLANSOPRAZOLE 30 MG PO (08:50)
[2024-04-04] MEDS: ACETAMINOPHEN 325 MG TABLET 650 MG GT (20:10)
[2024-04-04] MEDS: ATORVASTATIN 40 MG TABLET GT (20:13)
[2024-04-04] MEDS: INSULIN GLARGINE 100 UNIT/ML INSULN.PEN 30 UNIT SC (20:14)
[2024-04-05] VITALS (10 sets, daily range): BP systolic 110–168; BP diastolic 57–83; PULSE 54–92; RESP 18–23; TEMP 36.1–36.4; O2SAT 93–99
[2024-04-05] MEDS: IPRATROPIUM BROMIDE 200 PUFF/INH INHALER INH ×4 (00:39→19:06)
[2024-04-05] MEDS: ALBUTEROL INHALER 200 PUFF/INH INHALER INH ×4 (00:39→19:06)
[2024-04-05] MEDS: DEXLANSOPRAZOLE 30 MG PO (08:30)
[2024-04-05] MEDS: CYANOCOBALAMIN (VITAMIN B-12) 500 MCG TABLET 1000 MCG GT (08:30)
[2024-04-05] MEDS: MULTIVITAMIN W MINERALS 1 EACH TABLET GT (08:30)
[2024-04-05] MEDS: INSULIN GLARGINE 100 UNIT/ML INSULN.PEN 30 UNIT SC (21:15)
[2024-04-05] MEDS: ATORVASTATIN 40 MG TABLET GT (21:17)
[2024-04-05] MEDS: IPRATROPIUM/ALBUTEROL 3 ML AMPUL.NEB INH (22:05)
[2024-04-06] VITALS (10 sets, daily range): BP systolic 94–133; BP diastolic 49–85; PULSE 50–95; RESP 18–26; TEMP 36.1–36.9; O2SAT 92–100
--- NOTE | 2024-04-06 00:25 | PC.NURSE ---
2200-resident had episode of desaturation in the 80s after he was changed by CNAs, RT called to room, breathing tx. provided and oxygen increased to 10L, resident oxygen was then decreased to 6L/28% and oxygen noted to be 94%
[2024-04-06] MEDS: ALBUTEROL INHALER 200 PUFF/INH INHALER INH ×4 (00:46→18:32)
[2024-04-06] MEDS: IPRATROPIUM BROMIDE 200 PUFF/INH INHALER INH ×4 (00:46→18:32)
--- NOTE | 2024-04-06 01:04 | PC.NURSE ---
0020-Resident had another episode of desaturation in the 84%, oxygen was increases to 10L 100%, RT was called and breathing tx. was provided, resident keep at 10L 35%, resident currently at 100% O2sat, resident in room resting with eye closed, respirations even and unlabored, no s/s of distress at this time.
--- NOTE | 2024-04-06 01:14 | PC.RT ---
placed pt on 10 L @ 35% due to episodes of pt desaturating on blow by, GENA patrick.
[2024-04-06] MEDS: IPRATROPIUM/ALBUTEROL 3 ML AMPUL.NEB INH (05:01)
[2024-04-06] MEDS: CARVEDILOL 3.125 MG TABLET GT (08:16)
[2024-04-06] MEDS: ACETAMINOPHEN 325 MG TABLET 650 MG GT ×2 (08:17→20:42)
[2024-04-06] MEDS: MULTIVITAMIN W MINERALS 1 EACH TABLET GT (08:17)
[2024-04-06] MEDS: DEXLANSOPRAZOLE 30 MG PO (08:17)
[2024-04-06] MEDS: CYANOCOBALAMIN (VITAMIN B-12) 500 MCG TABLET 1000 MCG GT (08:17)
--- NOTE | 2024-04-06 08:57 | PC.RT ---
rt called to pt's room due to pt desaturating in the 60's, suction catheter passed with no issue. pt bagged and repositioned spo2 improved to 100%.
--- NOTE | 2024-04-06 12:18 | PC.NURSE ---
Resident had an episode of respiratory distress disaturated to 80s. increased respirations 26, 164/91, 96,26,99.2. order to keep resident on 50% FIO2 x 2 days.
--- NOTE | 2024-04-06 15:52 | PC.NURSE ---
At 0750 when nurse was preparing medication she heard pulse oximeter alarming. When she entered residents room she witness pt to be cyanotic and in respiratory distress, gasping and having difficulty breathing. O2 saturations 86% on Blow-By 10L 40 %. Nurse immediately started to Ambu bag pt with 100% wall O2 and remained with pt until he stabilized, & color return to normal (pink) O2 saturation at 100%. Nurse left room to start medication administration for another resident when she returned to med cart she heard pulse oximeter alarming continuously. As she entered the room she witness pt having 2nd episode of respiratory distress. O2 saturation 68% . Nurse called & informed Charge Nurse and immediately Ambu bagged pt until RT arrived. Vital signs obtained as follow 99.2 Rectal temp, ,85 ,32, 164/91 O2 sats 100% at Blow- By 10 L 50% . RT reported resident already received MDI & SVN breathing treatments this morning. RT was made aware pt had just recently returned from ER this week due to episode of respiratory distress and while in ER , pt had an emesis . X -ray report for 04/03/24 Atelectasis vs pneumonia Left base. Pt repositioned to his Right side, RT remained at bedside until pt stabilized. At 1000 Vital signs obtained as follow 97.5, 87,24, 101/69 02 saturation 96% -98% on 10 L 50% Blow- By . Pt appears more comfortable no further episodes of respiratory distress. Will continue to monitor pt for any changes in condition
--- NOTE | 2024-04-06 18:45 | PC.RT ---
at 18:41, pulse ox alarming went to assess pt, RR labored in the 30s, spo2 60% pt started looking immediately connected ambu bag and started ventilating pt with 100% untill pt reposition to the right seems that pt tolerated right side better, sats improved to 100% pt place back on 10L 50% and looked comfortable and without distress RR improved.
[2024-04-06] MEDS: ATORVASTATIN 40 MG TABLET GT (20:41)
[2024-04-06] MEDS: INSULIN GLARGINE 100 UNIT/ML INSULN.PEN 30 UNIT SC (21:18)
--- NOTE | 2024-04-06 23:17 | PD.SAPROG ---
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 No new issues. Prognosis for independent living is poor Plan: Current treatment reviewed and continued
[2024-04-07] VITALS (9 sets, daily range): BP systolic 95–131; BP diastolic 54–83; PULSE 43–80; RESP 16–24; TEMP 36–36.4; O2SAT 98–100
[2024-04-07] MEDS: ALBUTEROL INHALER 200 PUFF/INH INHALER INH ×4 (00:15→18:45)
[2024-04-07] MEDS: IPRATROPIUM BROMIDE 200 PUFF/INH INHALER INH ×4 (00:15→18:45)
[2024-04-07] MEDS: MAGNESIUM HYDROXIDE 30 ML ORAL SUSP ML GT (05:30)
[2024-04-07] MEDS: DEXLANSOPRAZOLE 30 MG PO (08:45)
[2024-04-07] MEDS: MULTIVITAMIN W MINERALS 1 EACH TABLET GT (08:45)
[2024-04-07] MEDS: CYANOCOBALAMIN (VITAMIN B-12) 500 MCG TABLET 1000 MCG GT (08:45)
[2024-04-07] MEDS: BISACODYL 10 MG SUPP.RECT PR (17:15)
[2024-04-07] MEDS: INSULIN GLARGINE 100 UNIT/ML INSULN.PEN 30 UNIT SC (20:44)
[2024-04-07] MEDS: ATORVASTATIN 40 MG TABLET GT (20:44)
[2024-04-08] VITALS (9 sets, daily range): BP systolic 100–139; BP diastolic 55–87; PULSE 42–76; RESP 17–20; TEMP 36.2–36.4; O2SAT 99–100
[2024-04-08] MEDS: ALBUTEROL INHALER 200 PUFF/INH INHALER INH ×4 (00:40→19:23)
[2024-04-08] MEDS: IPRATROPIUM BROMIDE 200 PUFF/INH INHALER INH ×4 (00:40→19:23)
[2024-04-08] MEDS: CARVEDILOL 3.125 MG TABLET GT (08:55)
[2024-04-08] MEDS: CYANOCOBALAMIN (VITAMIN B-12) 500 MCG TABLET 1000 MCG GT (08:55)
[2024-04-08] MEDS: MULTIVITAMIN W MINERALS 1 EACH TABLET GT (08:55)
[2024-04-08] MEDS: DEXLANSOPRAZOLE 30 MG PO (08:55)
[2024-04-08] MEDS: INSULIN GLARGINE 100 UNIT/ML INSULN.PEN 30 UNIT SC (21:14)
[2024-04-08] MEDS: ATORVASTATIN 40 MG TABLET GT (21:16)
[2024-04-09] VITALS (9 sets, daily range): BP systolic 120–137; BP diastolic 62–89; PULSE 51–76; RESP 16–20; TEMP 35.7–36.3; O2SAT 98–100
[2024-04-09] MEDS: IPRATROPIUM BROMIDE 200 PUFF/INH INHALER INH ×4 (00:23→18:40)
[2024-04-09] MEDS: ALBUTEROL INHALER 200 PUFF/INH INHALER INH ×4 (00:23→18:40)
[2024-04-09] MEDS: MULTIVITAMIN W MINERALS 1 EACH TABLET GT (09:01)
[2024-04-09] MEDS: CYANOCOBALAMIN (VITAMIN B-12) 500 MCG TABLET 1000 MCG GT (09:01)
[2024-04-09] MEDS: DEXLANSOPRAZOLE 30 MG PO (09:01)
[2024-04-09] MEDS: CARVEDILOL 3.125 MG TABLET GT (09:01)
[2024-04-09] MEDS: ATORVASTATIN 40 MG TABLET GT (20:46)
[2024-04-09] MEDS: INSULIN GLARGINE 100 UNIT/ML INSULN.PEN 30 UNIT SC (21:40)
[2024-04-10] VITALS (7 sets, daily range): BP systolic 92–134; BP diastolic 53–76; PULSE 52–80; RESP 18–20; TEMP 36.1–36.3; O2SAT 97–100
[2024-04-10] MEDS: IPRATROPIUM BROMIDE 200 PUFF/INH INHALER INH ×4 (00:08→18:20)
[2024-04-10] MEDS: ALBUTEROL INHALER 200 PUFF/INH INHALER INH ×4 (00:08→18:20)
[2024-04-10] MEDS: MULTIVITAMIN W MINERALS 1 EACH TABLET GT (08:23)
[2024-04-10] MEDS: DEXLANSOPRAZOLE 30 MG PO (08:23)
[2024-04-10] MEDS: CYANOCOBALAMIN (VITAMIN B-12) 500 MCG TABLET 1000 MCG GT (08:23)
[2024-04-10] MEDS: MAGNESIUM HYDROXIDE 30 ML ORAL SUSP ML GT (13:23)
--- NOTE | 2024-04-10 14:15 | PD.SAPROG ---
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 No new issues. Prognosis for independent living is poor Plan: Current treatment reviewed and continued
[2024-04-10] MEDS: ATORVASTATIN 40 MG TABLET GT (21:05)
[2024-04-10] MEDS: INSULIN GLARGINE 100 UNIT/ML INSULN.PEN 30 UNIT SC (21:13)
[2024-04-11] VITALS (9 sets, daily range): BP systolic 92–115; BP diastolic 42–56; PULSE 57–87; RESP 16–20; TEMP 36–36.9; O2SAT 96–99
[2024-04-11] MEDS: IPRATROPIUM BROMIDE 200 PUFF/INH INHALER INH ×4 (01:50→18:57)
[2024-04-11] MEDS: ALBUTEROL INHALER 200 PUFF/INH INHALER INH ×4 (01:50→18:57)
[2024-04-11] MEDS: MULTIVITAMIN W MINERALS 1 EACH TABLET GT (09:02)
[2024-04-11] MEDS: CYANOCOBALAMIN (VITAMIN B-12) 500 MCG TABLET 1000 MCG GT (09:02)
[2024-04-11] MEDS: DEXLANSOPRAZOLE 30 MG PO (09:02)
[2024-04-11] MEDS: ATORVASTATIN 40 MG TABLET GT (20:40)
[2024-04-11] MEDS: INSULIN GLARGINE 100 UNIT/ML INSULN.PEN 30 UNIT SC (20:40)
[2024-04-12] VITALS (9 sets, daily range): BP systolic 92–124; BP diastolic 50–65; PULSE 53–79; RESP 16–22; TEMP 36.1–36.6; O2SAT 96–99
[2024-04-12] MEDS: IPRATROPIUM BROMIDE 200 PUFF/INH INHALER INH ×4 (00:46→18:59)
[2024-04-12] MEDS: ALBUTEROL INHALER 200 PUFF/INH INHALER INH ×4 (00:46→18:59)
[2024-04-12] MEDS: CYANOCOBALAMIN (VITAMIN B-12) 500 MCG TABLET 1000 MCG GT (08:47)
[2024-04-12] MEDS: CARVEDILOL 3.125 MG TABLET GT (08:47)
[2024-04-12] MEDS: DEXLANSOPRAZOLE 30 MG PO (08:48)
[2024-04-12] MEDS: MULTIVITAMIN W MINERALS 1 EACH TABLET GT (08:48)
[2024-04-12] MEDS: DEXTROMETHORPHAN GT (09:42)
[2024-04-12] MEDS: PHENYLEPHRINE GT (09:42)
[2024-04-12] MEDS: GUAIFENESIN GT (09:42)
[2024-04-12] MEDS: ATORVASTATIN 40 MG TABLET GT (20:47)
[2024-04-12] MEDS: INSULIN GLARGINE 100 UNIT/ML INSULN.PEN 30 UNIT SC (20:52)
[2024-04-13] VITALS (9 sets, daily range): BP systolic 107–137; BP diastolic 62–83; PULSE 58–93; RESP 18–21; TEMP 36.4–37; O2SAT 95–100
[2024-04-13] MEDS: IPRATROPIUM BROMIDE 200 PUFF/INH INHALER INH ×4 (00:35→18:37)
[2024-04-13] MEDS: ALBUTEROL INHALER 200 PUFF/INH INHALER INH ×4 (00:35→18:37)
[2024-04-13] MEDS: CARVEDILOL 3.125 MG TABLET GT (08:41)
[2024-04-13] MEDS: CYANOCOBALAMIN (VITAMIN B-12) 500 MCG TABLET 1000 MCG GT (08:42)
[2024-04-13] MEDS: DEXLANSOPRAZOLE 30 MG PO (08:42)
[2024-04-13] MEDS: MULTIVITAMIN W MINERALS 1 EACH TABLET GT (08:42)
[2024-04-13] MEDS: PHENYLEPHRINE GT (21:32)
[2024-04-13] MEDS: ATORVASTATIN 40 MG TABLET GT (21:32)
[2024-04-13] MEDS: GUAIFENESIN GT (21:32)
[2024-04-13] MEDS: DEXTROMETHORPHAN GT (21:32)
[2024-04-13] MEDS: INSULIN GLARGINE 100 UNIT/ML INSULN.PEN 30 UNIT SC (21:45)
[2024-04-14] VITALS (8 sets, daily range): BP systolic 94–135; BP diastolic 50–71; PULSE 50–66; RESP 16–20; TEMP 36.3–36.7; O2SAT 95–100
[2024-04-14] MEDS: IPRATROPIUM BROMIDE 200 PUFF/INH INHALER INH ×4 (00:35→18:42)
[2024-04-14] MEDS: ALBUTEROL INHALER 200 PUFF/INH INHALER INH ×4 (00:35→18:42)
[2024-04-14] MEDS: MULTIVITAMIN W MINERALS 1 EACH TABLET GT (08:36)
[2024-04-14] MEDS: CYANOCOBALAMIN (VITAMIN B-12) 500 MCG TABLET 1000 MCG GT (08:36)
[2024-04-14] MEDS: DEXLANSOPRAZOLE 30 MG PO (08:36)
--- NOTE | 2024-04-14 14:23 | PC.SS ---
Room visit:Resident is laying in bed with head of the bed elevated with call light properly placed with no signs of distress. Resident is well groomed with call light properly placed with no signs of distress. Resident will remain in current care as there are no changes in care or condition, resident remains on blow by with trach in place and GT for medication and nutrition. Resident will continue to have all subacute care needs met by staff.
--- NOTE | 2024-04-14 14:30 | PD.SAPROG ---
Progress Note - SubAcute SUBJECTIVE Fever:: none GI:: none Shortness of Breath:: none Pain:: none OBJECTIVE Most recent vital signs: Last Vital Signs Temp 97.9 F 04/15/24 17:56 Pulse 65 04/15/24 18:33 Resp 20 04/15/24 18:33 BP 92/54 L 04/15/24 17:56 Pulse Ox 98 04/15/24 18:33 O2 Del Method Blow-by 04/15/24 05:52 O2 Flow Rate 8 04/15/24 18:33 FiO2 30 04/15/24 18:33 Neurological:: PVS Speech:: none Answers questions:: no Respiratory:: lungs clear Cardiovascular: RRR Abdomen: soft and nontender Extremities:: deformities (Spastic contractures of extremities) Decubitus:: none Tracheostomy:: to blow by Feeding per:: G tube Complaints:: none ASSESSMENT & PLAN Assessment: Pt remains essentially PVS for years. No new issues. Prognosis for independent living is poor Plan: Current treatment reviewed and continued
[2024-04-14] MEDS: INSULIN GLARGINE 100 UNIT/ML INSULN.PEN 30 UNIT SC (20:23)
[2024-04-14] MEDS: ATORVASTATIN 40 MG TABLET GT (20:23)
[2024-04-15] VITALS (9 sets, daily range): BP systolic 92–121; BP diastolic 50–95; PULSE 56–77; RESP 18–20; TEMP 36.1–36.6; O2SAT 94–100
[2024-04-15] MEDS: IPRATROPIUM BROMIDE 200 PUFF/INH INHALER INH ×4 (00:46→18:33)
[2024-04-15] MEDS: ALBUTEROL INHALER 200 PUFF/INH INHALER INH ×4 (00:46→18:33)
[2024-04-15] MEDS: CARVEDILOL 3.125 MG TABLET GT (09:03)
[2024-04-15] MEDS: CYANOCOBALAMIN (VITAMIN B-12) 500 MCG TABLET 1000 MCG GT (09:04)
[2024-04-15] MEDS: DEXLANSOPRAZOLE 30 MG PO (09:04)
[2024-04-15] MEDS: MULTIVITAMIN W MINERALS 1 EACH TABLET GT (09:04)
[2024-04-15] MEDS: MAGNESIUM HYDROXIDE 30 ML ORAL SUSP ML GT (09:04)
[2024-04-15] MEDS: ATORVASTATIN 40 MG TABLET GT (20:21)
[2024-04-15] MEDS: INSULIN GLARGINE 100 UNIT/ML INSULN.PEN 30 UNIT SC (21:19)
[2024-04-16] VITALS (9 sets, daily range): BP systolic 100–132; BP diastolic 63–80; PULSE 47–77; RESP 16–18; TEMP 36.3–36.6; O2SAT 95–100
[2024-04-16] MEDS: ALBUTEROL INHALER 200 PUFF/INH INHALER INH ×4 (00:37→19:15)
[2024-04-16] MEDS: IPRATROPIUM BROMIDE 200 PUFF/INH INHALER INH ×4 (00:37→19:15)
[2024-04-16] MEDS: CYANOCOBALAMIN (VITAMIN B-12) 500 MCG TABLET 1000 MCG GT (08:13)
[2024-04-16] MEDS: MULTIVITAMIN W MINERALS 1 EACH TABLET GT (08:13)
[2024-04-16] MEDS: CARVEDILOL 3.125 MG TABLET GT (08:13)
[2024-04-16] MEDS: DEXLANSOPRAZOLE 30 MG PO (08:13)
[2024-04-16] MEDS: ATORVASTATIN 40 MG TABLET GT (20:22)
[2024-04-16] MEDS: INSULIN GLARGINE 100 UNIT/ML INSULN.PEN 30 UNIT SC (21:28)
[2024-04-17] VITALS (9 sets, daily range): BP systolic 91–120; BP diastolic 49–63; PULSE 54–75; RESP 16–18; TEMP 36.1–36.4; O2SAT 97–100
[2024-04-17] MEDS: IPRATROPIUM BROMIDE 200 PUFF/INH INHALER INH ×4 (00:25→18:36)
[2024-04-17] MEDS: ALBUTEROL INHALER 200 PUFF/INH INHALER INH ×4 (00:25→18:36)
[2024-04-17] MEDS: CYANOCOBALAMIN (VITAMIN B-12) 500 MCG TABLET 1000 MCG GT (08:38)
[2024-04-17] MEDS: CARVEDILOL 3.125 MG TABLET GT (08:38)
[2024-04-17] MEDS: MULTIVITAMIN W MINERALS 1 EACH TABLET GT (08:38)
[2024-04-17] MEDS: DEXLANSOPRAZOLE 30 MG PO (08:38)
[2024-04-17] MEDS: ATORVASTATIN 40 MG TABLET GT (20:49)
[2024-04-17] MEDS: INSULIN GLARGINE 100 UNIT/ML INSULN.PEN 30 UNIT SC (21:36)
[2024-04-18] VITALS (10 sets, daily range): BP systolic 96–132; BP diastolic 52–75; PULSE 55–72; RESP 16–20; TEMP 35.8–37.1; O2SAT 95–100
[2024-04-18] MEDS: IPRATROPIUM BROMIDE 200 PUFF/INH INHALER INH ×4 (00:19→19:47)
[2024-04-18] MEDS: ALBUTEROL INHALER 200 PUFF/INH INHALER INH ×4 (00:19→19:47)
[2024-04-18] MEDS: CYANOCOBALAMIN (VITAMIN B-12) 500 MCG TABLET 1000 MCG GT (08:57)
[2024-04-18] MEDS: MULTIVITAMIN W MINERALS 1 EACH TABLET GT (08:58)
[2024-04-18] MEDS: DEXLANSOPRAZOLE 30 MG PO (08:58)
[2024-04-18] MEDS: ATORVASTATIN 40 MG TABLET GT (20:44)
[2024-04-18] MEDS: INSULIN GLARGINE 100 UNIT/ML INSULN.PEN 30 UNIT SC (20:59)
--- NOTE | 2024-04-18 21:56 | PD.SAPROG ---
Progress Note - SubAcute SUBJECTIVE Fever:: none GI:: none Shortness of Breath:: none Pain:: none OBJECTIVE Most recent vital signs: Last Vital Signs Temp 96.8 F 04/18/24 17:45 Pulse 66 04/18/24 19:47 Resp 18 04/18/24 19:47 BP 112/52 L 04/18/24 17:45 Pulse Ox 95 04/18/24 19:47 O2 Del Method Mechanical Ventilation 04/18/24 06:00 O2 Flow Rate 8 04/18/24 19:47 FiO2 30 04/18/24 19:47 Neurological:: PVS Speech:: none Answers questions:: no Respiratory:: lungs clear Cardiovascular: RRR Abdomen: soft and nontender Extremities:: deformities (Spastic contractures of extremities) Decubitus:: none Tracheostomy:: to blow by Feeding per:: G tube Complaints:: none ASSESSMENT & PLAN Assessment: Pt remains essentially PVS for years. No new issues. Prognosis for independent living is poor Plan: Current treatment reviewed and continued
[2024-04-19] VITALS (9 sets, daily range): BP systolic 98–130; BP diastolic 61–79; PULSE 51–75; RESP 16–18; TEMP 36–36.3; O2SAT 96–100
[2024-04-19] MEDS: IPRATROPIUM BROMIDE 200 PUFF/INH INHALER INH ×3 (00:25→12:00)
[2024-04-19] MEDS: ALBUTEROL INHALER 200 PUFF/INH INHALER INH ×4 (00:25→19:24)
[2024-04-19] MEDS: CARVEDILOL 3.125 MG TABLET GT (08:43)
[2024-04-19] MEDS: DEXLANSOPRAZOLE 30 MG PO (08:43)
[2024-04-19] MEDS: MULTIVITAMIN W MINERALS 1 EACH TABLET GT (08:43)
[2024-04-19] MEDS: CYANOCOBALAMIN (VITAMIN B-12) 500 MCG TABLET 1000 MCG GT (08:43)
[2024-04-19] MEDS: ATORVASTATIN 40 MG TABLET GT (21:02)
[2024-04-19] MEDS: INSULIN GLARGINE 100 UNIT/ML INSULN.PEN 30 UNIT SC (21:41)
[2024-04-20] VITALS (8 sets, daily range): BP systolic 101–146; BP diastolic 50–69; PULSE 58–76; RESP 17–18; TEMP 36–36.3; O2SAT 98–100
[2024-04-20] MEDS: ALBUTEROL INHALER 200 PUFF/INH INHALER INH ×4 (00:58→16:26)
[2024-04-20] MEDS: IPRATROPIUM BROMIDE 200 PUFF/INH INHALER INH ×4 (00:58→16:26)
[2024-04-20] MEDS: CARVEDILOL 3.125 MG TABLET GT (08:48)
[2024-04-20] MEDS: CYANOCOBALAMIN (VITAMIN B-12) 500 MCG TABLET 1000 MCG GT (08:50)
[2024-04-20] MEDS: MULTIVITAMIN W MINERALS 1 EACH TABLET GT (08:50)
[2024-04-20] MEDS: DEXLANSOPRAZOLE 30 MG PO (08:50)
--- NOTE | 2024-04-20 11:54 | PC.SS ---
Room visit: Resident is laying in bed with head of the bed elevated with call light properly placed with no signs of distress. Resident has no changes in care or condition. Resident remains on blow by with trach in place and GT for medication and nutrition. Resident will continue to have all subacute care needs met by staff. SSD will continue to make daily room visits and monitor for changes in mood and behavior.
[2024-04-20] MEDS: ATORVASTATIN 40 MG TABLET GT (21:04)
[2024-04-21] VITALS (10 sets, daily range): BP systolic 104–147; BP diastolic 59–79; PULSE 53–81; RESP 18–22; TEMP 35.9–36.1; O2SAT 98–100
[2024-04-21] MEDS: IPRATROPIUM BROMIDE 200 PUFF/INH INHALER INH ×4 (01:12→18:45)
[2024-04-21] MEDS: ALBUTEROL INHALER 200 PUFF/INH INHALER INH ×4 (01:12→18:45)
[2024-04-21] MEDS: CARVEDILOL 3.125 MG TABLET GT (08:41)
[2024-04-21] MEDS: DEXLANSOPRAZOLE 30 MG PO (08:42)
[2024-04-21] MEDS: CYANOCOBALAMIN (VITAMIN B-12) 500 MCG TABLET 1000 MCG GT (08:42)
[2024-04-21] MEDS: MULTIVITAMIN W MINERALS 1 EACH TABLET GT (08:43)
[2024-04-21] MEDS: ATORVASTATIN 40 MG TABLET GT (21:19)
[2024-04-21] MEDS: INSULIN GLARGINE 100 UNIT/ML INSULN.PEN 30 UNIT SC (21:19)
[2024-04-21] MEDS: BISACODYL 10 MG SUPP.RECT PR (23:16)
[2024-04-22] VITALS (9 sets, daily range): BP systolic 124–150; BP diastolic 65–76; PULSE 54–71; RESP 16–20; TEMP 36.1–36.6; O2SAT 97–99
[2024-04-22] MEDS: ALBUTEROL INHALER 200 PUFF/INH INHALER INH ×4 (00:41→19:53)
[2024-04-22] MEDS: IPRATROPIUM BROMIDE 200 PUFF/INH INHALER INH ×4 (00:41→19:53)
--- NOTE | 2024-04-22 08:05 | PC.NURSE ---
BM entered for 04/22/24 at 0400 per report. PROFESSOR OF ECONOMICS did not chart.
[2024-04-22] MEDS: CARVEDILOL 3.125 MG TABLET GT (08:41)
[2024-04-22] MEDS: DEXLANSOPRAZOLE 30 MG PO (08:41)
[2024-04-22] MEDS: MULTIVITAMIN W MINERALS 1 EACH TABLET GT (08:41)
[2024-04-22] MEDS: CYANOCOBALAMIN (VITAMIN B-12) 500 MCG TABLET 1000 MCG GT (08:41)
--- NOTE | 2024-04-22 19:49 | PD.SAPROG ---
Progress Note - SubAcute SUBJECTIVE Fever:: none GI:: none Shortness of Breath:: none Pain:: none OBJECTIVE Most recent vital signs: Last Vital Signs Temp 96.9 F 04/22/24 17:23 Pulse 71 04/22/24 12:55 Resp 19 04/22/24 17:23 BP 139/66 H 04/22/24 17:23 Pulse Ox 99 04/22/24 12:55 O2 Del Method Blow-by 04/20/24 17:45 O2 Flow Rate 6 04/22/24 12:55 FiO2 28 04/22/24 12:55 Neurological:: PVS Speech:: none Answers questions:: no Respiratory:: lungs clear Cardiovascular: RRR Abdomen: soft and nontender Extremities:: deformities (Spastic contractures of extremities) Decubitus:: none Tracheostomy:: to blow by Feeding per:: G tube Complaints:: none ASSESSMENT & PLAN Assessment: Pt remains essentially PVS for years. No new issues. Prognosis for independent living is poor Plan: Current treatment reviewed and continued
[2024-04-22] MEDS: INSULIN GLARGINE 100 UNIT/ML INSULN.PEN 30 UNIT SC (20:51)
[2024-04-22] MEDS: ATORVASTATIN 40 MG TABLET GT (20:51)
[2024-04-23] VITALS (9 sets, daily range): BP systolic 90–137; BP diastolic 55–77; PULSE 58–76; RESP 16–20; TEMP 35.7–36.1; O2SAT 97–100
[2024-04-23] MEDS: IPRATROPIUM BROMIDE 200 PUFF/INH INHALER INH ×4 (00:58→19:16)
[2024-04-23] MEDS: ALBUTEROL INHALER 200 PUFF/INH INHALER INH ×4 (00:58→19:16)
[2024-04-23] MEDS: MULTIVITAMIN W MINERALS 1 EACH TABLET GT (08:34)
[2024-04-23] MEDS: CYANOCOBALAMIN (VITAMIN B-12) 500 MCG TABLET 1000 MCG GT (08:35)
[2024-04-23] MEDS: DEXLANSOPRAZOLE 30 MG PO (08:35)
[2024-04-23] MEDS: ATORVASTATIN 40 MG TABLET GT (20:38)
[2024-04-23] MEDS: INSULIN GLARGINE 100 UNIT/ML INSULN.PEN 30 UNIT SC (20:50)
[2024-04-24] VITALS (9 sets, daily range): BP systolic 113–135; BP diastolic 67–84; PULSE 48–80; RESP 16–20; TEMP 36.1–36.3; O2SAT 95–100
[2024-04-24] MEDS: ALBUTEROL INHALER 200 PUFF/INH INHALER INH ×4 (00:42→19:09)
[2024-04-24] MEDS: IPRATROPIUM BROMIDE 200 PUFF/INH INHALER INH ×4 (00:42→19:09)
[2024-04-24] MEDS: CYANOCOBALAMIN (VITAMIN B-12) 500 MCG TABLET 1000 MCG GT (08:52)
[2024-04-24] MEDS: DEXLANSOPRAZOLE 30 MG PO (08:52)
[2024-04-24] MEDS: MULTIVITAMIN W MINERALS 1 EACH TABLET GT (08:53)
[2024-04-24] MEDS: MAGNESIUM HYDROXIDE 30 ML ORAL SUSP ML GT (20:13)
[2024-04-24] MEDS: ATORVASTATIN 40 MG TABLET GT (20:13)
[2024-04-24] MEDS: INSULIN GLARGINE 100 UNIT/ML INSULN.PEN 30 UNIT SC (21:34)
[2024-04-25] VITALS (8 sets, daily range): BP systolic 96–142; BP diastolic 55–85; PULSE 66–81; RESP 16–19; TEMP 36–36.2; O2SAT 96–100
[2024-04-25] MEDS: ALBUTEROL INHALER 200 PUFF/INH INHALER INH ×4 (00:21→19:45)
[2024-04-25] MEDS: IPRATROPIUM BROMIDE 200 PUFF/INH INHALER INH ×4 (00:21→19:45)
[2024-04-25] MEDS: CARVEDILOL 3.125 MG TABLET GT (09:20)
[2024-04-25] MEDS: CYANOCOBALAMIN (VITAMIN B-12) 500 MCG TABLET 1000 MCG GT (09:21)
[2024-04-25] MEDS: DEXLANSOPRAZOLE 30 MG PO (09:22)
[2024-04-25] MEDS: MULTIVITAMIN W MINERALS 1 EACH TABLET GT (09:22)
[2024-04-25] MEDS: ATORVASTATIN 40 MG TABLET GT (20:24)
[2024-04-25] MEDS: INSULIN GLARGINE 100 UNIT/ML INSULN.PEN 30 UNIT SC (21:28)
[2024-04-26] VITALS (8 sets, daily range): BP systolic 97–117; BP diastolic 43–65; PULSE 53–72; RESP 16–20; TEMP 36.1–36.4; O2SAT 97–100
[2024-04-26] MEDS: ALBUTEROL INHALER 200 PUFF/INH INHALER INH ×4 (01:14→19:12)
[2024-04-26] MEDS: IPRATROPIUM BROMIDE 200 PUFF/INH INHALER INH ×4 (01:14→19:12)
[2024-04-26] MEDS: MULTIVITAMIN W MINERALS 1 EACH TABLET GT (08:49)
[2024-04-26] MEDS: DEXLANSOPRAZOLE 30 MG PO (08:49)
[2024-04-26] MEDS: CYANOCOBALAMIN (VITAMIN B-12) 500 MCG TABLET 1000 MCG GT (08:49)
[2024-04-26] MEDS: CARVEDILOL 3.125 MG TABLET GT (08:49)
--- NOTE | 2024-04-26 14:40 | PD.SAPROG ---
Progress Note - SubAcute SUBJECTIVE Fever:: none GI:: none Shortness of Breath:: none Pain:: none OBJECTIVE Most recent vital signs: Last Vital Signs Temp 97.4 F 04/27/24 17:47 Pulse 76 04/27/24 17:47 Resp 23 H 04/27/24 17:47 BP 116/72 04/27/24 17:47 Pulse Ox 98 04/27/24 12:22 O2 Del Method Blow-by 04/27/24 12:00 O2 Flow Rate 6 04/27/24 12:22 FiO2 28 04/27/24 12:22 Neurological:: PVS Speech:: none Answers questions:: no Respiratory:: lungs clear Cardiovascular: RRR Abdomen: soft and nontender Extremities:: deformities (Spastic contractures of extremities) Decubitus:: none Tracheostomy:: to blow by Feeding per:: G tube Complaints:: none ASSESSMENT & PLAN Assessment: Pt remains essentially PVS for years. No new issues. Prognosis for independent living is poor Plan: Current treatment reviewed and continued
[2024-04-26] MEDS: ATORVASTATIN 40 MG TABLET GT (20:57)
[2024-04-26] MEDS: INSULIN GLARGINE 100 UNIT/ML INSULN.PEN 30 UNIT SC (20:57)
[2024-04-27] VITALS (9 sets, daily range): BP systolic 104–132; BP diastolic 58–85; PULSE 61–76; RESP 17–23; TEMP 35.7–36.6; O2SAT 97–100
[2024-04-27] MEDS: ALBUTEROL INHALER 200 PUFF/INH INHALER INH ×4 (01:00→19:04)
[2024-04-27] MEDS: IPRATROPIUM BROMIDE 200 PUFF/INH INHALER INH ×4 (01:00→19:04)
[2024-04-27] MEDS: CARVEDILOL 3.125 MG TABLET GT (09:14)
[2024-04-27] MEDS: DEXLANSOPRAZOLE 30 MG PO (09:15)
[2024-04-27] MEDS: CYANOCOBALAMIN (VITAMIN B-12) 500 MCG TABLET 1000 MCG GT (09:15)
[2024-04-27] MEDS: MULTIVITAMIN W MINERALS 1 EACH TABLET GT (09:15)
[2024-04-27] MEDS: ATORVASTATIN 40 MG TABLET GT (20:54)
[2024-04-27] MEDS: INSULIN GLARGINE 100 UNIT/ML INSULN.PEN 30 UNIT SC (20:54)
[2024-04-28] VITALS (9 sets, daily range): BP systolic 96–116; BP diastolic 56–73; PULSE 54–94; RESP 16–18; TEMP 36.1–36.5; O2SAT 93–100
[2024-04-28] MEDS: ALBUTEROL INHALER 200 PUFF/INH INHALER INH ×4 (00:34→18:32)
[2024-04-28] MEDS: IPRATROPIUM BROMIDE 200 PUFF/INH INHALER INH ×4 (00:34→18:32)
[2024-04-28] MEDS: MULTIVITAMIN W MINERALS 1 EACH TABLET GT (08:50)
[2024-04-28] MEDS: DEXLANSOPRAZOLE 30 MG PO (08:50)
[2024-04-28] MEDS: CYANOCOBALAMIN (VITAMIN B-12) 500 MCG TABLET 1000 MCG GT (08:50)
--- NOTE | 2024-04-28 12:35 | PD.SAHP ---
Physical exam Physical Exam Vital signs: Temp Pulse Resp BP Pulse Ox O2 Del Method O2 Flow Rate 97.6 F 78 17 142/84 H 97 Blow-by 6 06/03/24 18:00 06/03/24 18:00 06/03/24 18:00 06/03/24 18:00 06/03/24 18:00 06/03/24 00:00 06/03/24 11:37 FiO2 28 06/03/24 11:37 Constitutional Comments: VSS HEENT Exam Head: Present normocephalic and atraumatic Comments: Tracheostomy+ Neck Exam Neck: Present supple Comments: no L. nodes; no edema Chest/Breast/Axilla Exam Comments: NAD Respiratory Exam Respiratory: Present chest non-tender, normal breath sounds and no resp distress Cardiovascular Exam Cardiovascular: Present irregularly irregular (A-Fib) Comments: Tracheostomy + Abdominal Exam Abdominal: Present soft and normoactive bowel sounds Rectal Exam Comments: deferred Exam Comments: NAD Extremities Exam Extremities: Present pulses intact and normal capillary refill Comments: no edema Back/Spine/Pelvis Exam Comments: NAD Neurological Exam Neurological: Present altered mental status (pvs) Rehabilitation potential Diagnosis (1) Persistent vegetative state: Status: Chronic (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 No new issues. Prognosis for independent living is poor. No pain/ discomfort. Tolerates feeding. Plan: Current treatment reviewed and continued HPI History of Present Illness HPI: updated H&P for year 2023
[2024-04-28] MEDS: ATORVASTATIN 40 MG TABLET GT (20:40)
--- NOTE | 2024-04-28 21:14 | PD.SAPROG ---
Progress Note - SubAcute SUBJECTIVE Fever:: none GI:: none Shortness of Breath:: none Pain:: none OBJECTIVE Most recent vital signs: Last Vital Signs Temp 97.7 F 04/28/24 17:50 Pulse 68 04/28/24 17:50 Resp 18 04/28/24 17:50 BP 109/66 04/28/24 17:50 Pulse Ox 93 L 04/28/24 12:45 O2 Del Method Blow-by 04/28/24 12:00 O2 Flow Rate 6 04/28/24 12:45 FiO2 28 04/28/24 12:45 Neurological:: PVS Speech:: none Answers questions:: no Respiratory:: lungs clear Cardiovascular: RRR Abdomen: soft and nontender Extremities:: deformities (Spastic contractures of extremities) Decubitus:: none Tracheostomy:: to blow by Feeding per:: G tube Complaints:: none ASSESSMENT & PLAN Assessment: Pt remains essentially PVS for years. No new issues. Prognosis for independent living is poor Plan: Current treatment reviewed and continued
[2024-04-28] MEDS: INSULIN GLARGINE 100 UNIT/ML INSULN.PEN 30 UNIT SC (21:31)
[2024-04-29] VITALS (10 sets, daily range): BP systolic 92–155; BP diastolic 60–74; PULSE 53–75; RESP 16–20; TEMP 36.3–36.9; O2SAT 93–100
[2024-04-29] MEDS: ALBUTEROL INHALER 200 PUFF/INH INHALER INH ×4 (01:04→18:35)
[2024-04-29] MEDS: IPRATROPIUM BROMIDE 200 PUFF/INH INHALER INH ×4 (01:04→18:35)
[2024-04-29] MEDS: CARVEDILOL 3.125 MG TABLET GT (08:31)
[2024-04-29] MEDS: DEXLANSOPRAZOLE 30 MG PO (08:32)
[2024-04-29] MEDS: CYANOCOBALAMIN (VITAMIN B-12) 500 MCG TABLET 1000 MCG GT (08:32)
[2024-04-29] MEDS: MULTIVITAMIN W MINERALS 1 EACH TABLET GT (08:32)
[2024-04-29] MEDS: ATORVASTATIN 40 MG TABLET GT (21:35)
[2024-04-29] MEDS: INSULIN GLARGINE 100 UNIT/ML INSULN.PEN 30 UNIT SC (21:44)
[2024-04-30] VITALS (8 sets, daily range): BP systolic 115–136; BP diastolic 71–78; PULSE 54–70; RESP 16–20; TEMP 36.2–36.7; O2SAT 96–100
[2024-04-30] MEDS: ALBUTEROL INHALER 200 PUFF/INH INHALER INH ×4 (00:24→18:35)
[2024-04-30] MEDS: IPRATROPIUM BROMIDE 200 PUFF/INH INHALER INH ×4 (00:24→18:35)
[2024-04-30] MEDS: CARVEDILOL 3.125 MG TABLET GT (08:30)
[2024-04-30] MEDS: DEXLANSOPRAZOLE 30 MG PO (08:31)
[2024-04-30] MEDS: CYANOCOBALAMIN (VITAMIN B-12) 500 MCG TABLET 1000 MCG GT (08:31)
[2024-04-30] MEDS: MULTIVITAMIN W MINERALS 1 EACH TABLET GT (08:31)
[2024-04-30] MEDS: ATORVASTATIN 40 MG TABLET GT (20:26)
[2024-04-30] MEDS: INSULIN GLARGINE 100 UNIT/ML INSULN.PEN 30 UNIT SC (21:27)
[2024-05-01] VITALS (8 sets, daily range): BP systolic 97–128; BP diastolic 61–77; PULSE 50–88; RESP 16–20; TEMP 36.1–36.6; O2SAT 95–100
[2024-05-01] MEDS: ALBUTEROL INHALER 200 PUFF/INH INHALER INH ×4 (07:00→18:37)
[2024-05-01] MEDS: IPRATROPIUM BROMIDE 200 PUFF/INH INHALER INH ×4 (07:00→18:37)
[2024-05-01] MEDS: CARVEDILOL 3.125 MG TABLET GT (08:41)
[2024-05-01] MEDS: MULTIVITAMIN W MINERALS 1 EACH TABLET GT (08:42)
[2024-05-01] MEDS: CYANOCOBALAMIN (VITAMIN B-12) 500 MCG TABLET 1000 MCG GT (08:42)
[2024-05-01] MEDS: DEXLANSOPRAZOLE 30 MG PO (08:42)
[2024-05-01] MEDS: INSULIN GLARGINE 100 UNIT/ML INSULN.PEN 30 UNIT SC (21:06)
[2024-05-01] MEDS: ATORVASTATIN 40 MG TABLET GT (21:08)
[2024-05-02] VITALS (11 sets, daily range): BP systolic 94–140; BP diastolic 61–71; PULSE 52–71; RESP 16–19; TEMP 36.1–36.6; O2SAT 93–99
[2024-05-02] MEDS: ALBUTEROL INHALER 200 PUFF/INH INHALER INH ×4 (00:25→18:50)
[2024-05-02] MEDS: IPRATROPIUM BROMIDE 200 PUFF/INH INHALER INH ×4 (00:25→18:50)
[2024-05-02] MEDS: CYANOCOBALAMIN (VITAMIN B-12) 500 MCG TABLET 1000 MCG GT (08:33)
[2024-05-02] MEDS: DEXLANSOPRAZOLE 30 MG PO (08:33)
[2024-05-02] MEDS: MULTIVITAMIN W MINERALS 1 EACH TABLET GT (08:33)
[2024-05-02] MEDS: CARVEDILOL 3.125 MG TABLET GT (08:33)
[2024-05-02] MEDS: ATORVASTATIN 40 MG TABLET GT (21:01)
[2024-05-02] MEDS: INSULIN GLARGINE 100 UNIT/ML INSULN.PEN 30 UNIT SC (21:50)
[2024-05-03] VITALS (7 sets, daily range): BP systolic 92–139; BP diastolic 68–76; PULSE 59–72; RESP 17–20; TEMP 36.3–36.6; O2SAT 98–100
[2024-05-03] MEDS: ALBUTEROL INHALER 200 PUFF/INH INHALER INH ×4 (00:23→19:10)
[2024-05-03] MEDS: IPRATROPIUM BROMIDE 200 PUFF/INH INHALER INH ×4 (00:23→19:10)
[2024-05-03] MEDS: CYANOCOBALAMIN (VITAMIN B-12) 500 MCG TABLET 1000 MCG GT (08:59)
[2024-05-03] MEDS: DEXLANSOPRAZOLE 30 MG PO (08:59)
[2024-05-03] MEDS: MULTIVITAMIN W MINERALS 1 EACH TABLET GT (08:59)
--- NOTE | 2024-05-03 18:11 | PD.SAPROG ---
Progress Note - SubAcute SUBJECTIVE Fever:: none GI:: none Shortness of Breath:: none Pain:: none OBJECTIVE Most recent vital signs: Last Vital Signs Temp 97.3 F 05/03/24 06:00 Pulse 59 L 05/03/24 12:00 Resp 19 05/03/24 12:00 BP 92/68 05/03/24 08:58 Pulse Ox 99 05/03/24 12:00 O2 Del Method Blow-by 05/03/24 06:00 O2 Flow Rate 6 05/03/24 12:00 FiO2 28 05/03/24 12:00 Neurological:: PVS Speech:: none Answers questions:: no Respiratory:: lungs clear Cardiovascular: RRR Abdomen: soft and nontender Extremities:: deformities (Spastic contractures of extremities) Decubitus:: none Tracheostomy:: to blow by Feeding per:: G tube Complaints:: none ASSESSMENT & PLAN Assessment: Pt remains essentially PVS for years. No new issues. Prognosis for independent living is poor Plan: Current treatment reviewed and continued
[2024-05-03] MEDS: ATORVASTATIN 40 MG TABLET GT (20:45)
[2024-05-03] MEDS: INSULIN GLARGINE 100 UNIT/ML INSULN.PEN 30 UNIT SC (21:20)
[2024-05-04] VITALS (9 sets, daily range): BP systolic 123–145; BP diastolic 70–80; PULSE 53–83; RESP 17–96; TEMP 36.2–36.4; O2SAT 97–100
[2024-05-04] MEDS: IPRATROPIUM BROMIDE 200 PUFF/INH INHALER INH ×4 (00:20→16:40)
[2024-05-04] MEDS: ALBUTEROL INHALER 200 PUFF/INH INHALER INH ×4 (00:20→16:40)
[2024-05-04] MEDS: CARVEDILOL 3.125 MG TABLET GT (08:14)
[2024-05-04] MEDS: DEXLANSOPRAZOLE 30 MG PO (08:15)
[2024-05-04] MEDS: CYANOCOBALAMIN (VITAMIN B-12) 500 MCG TABLET 1000 MCG GT (08:15)
[2024-05-04] MEDS: MULTIVITAMIN W MINERALS 1 EACH TABLET GT (08:15)
[2024-05-04] MEDS: INSULIN GLARGINE 100 UNIT/ML INSULN.PEN 30 UNIT SC (21:17)
[2024-05-04] MEDS: ATORVASTATIN 40 MG TABLET GT (21:17)
[2024-05-05] VITALS (9 sets, daily range): BP systolic 111–122; BP diastolic 60–77; PULSE 58–80; RESP 18–20; TEMP 36–36.5; O2SAT 95–99
[2024-05-05] MEDS: ALBUTEROL INHALER 200 PUFF/INH INHALER INH ×4 (00:32→19:11)
[2024-05-05] MEDS: IPRATROPIUM BROMIDE 200 PUFF/INH INHALER INH ×4 (00:32→19:11)
[2024-05-05] MEDS: CARVEDILOL 3.125 MG TABLET GT (09:04)
[2024-05-05] MEDS: DEXLANSOPRAZOLE 30 MG PO (09:05)
[2024-05-05] MEDS: CYANOCOBALAMIN (VITAMIN B-12) 500 MCG TABLET 1000 MCG GT (09:05)
[2024-05-05] MEDS: MULTIVITAMIN W MINERALS 1 EACH TABLET GT (09:05)
--- NOTE | 2024-05-05 14:51 | PC.SS ---
Room visit: Resident is laying in bed with no change in care or condition. Resident remains on blow by with trach in place. Resident has GT in place for medication and nutrition. Resident is unable to make needs known, total care. Resident will remain in current care and will have all subacute care needs met by staff.
[2024-05-05] MEDS: ATORVASTATIN 40 MG TABLET GT (20:42)
[2024-05-05] MEDS: INSULIN GLARGINE 100 UNIT/ML INSULN.PEN 30 UNIT SC (21:25)
[2024-05-06] VITALS (9 sets, daily range): BP systolic 92–152; BP diastolic 64–81; PULSE 50–72; RESP 18–20; TEMP 36–36.9; O2SAT 98–99
[2024-05-06] MEDS: ALBUTEROL INHALER 200 PUFF/INH INHALER INH ×4 (00:24→18:25)
[2024-05-06] MEDS: IPRATROPIUM BROMIDE 200 PUFF/INH INHALER INH ×4 (00:24→18:25)
[2024-05-06] MEDS: CYANOCOBALAMIN (VITAMIN B-12) 500 MCG TABLET 1000 MCG GT (09:05)
[2024-05-06] MEDS: DEXLANSOPRAZOLE 30 MG PO (09:06)
[2024-05-06] MEDS: MULTIVITAMIN W MINERALS 1 EACH TABLET GT (09:06)
[2024-05-06] MEDS: INSULIN GLARGINE 100 UNIT/ML INSULN.PEN 30 UNIT SC (20:33)
[2024-05-06] MEDS: ATORVASTATIN 40 MG TABLET GT (20:34)
[2024-05-07] VITALS (9 sets, daily range): BP systolic 108–136; BP diastolic 53–74; PULSE 51–74; RESP 16–20; TEMP 36.1–36.3; O2SAT 96–99
[2024-05-07] MEDS: ALBUTEROL INHALER 200 PUFF/INH INHALER INH ×4 (00:10→19:01)
[2024-05-07] MEDS: IPRATROPIUM BROMIDE 200 PUFF/INH INHALER INH ×4 (00:10→19:01)
[2024-05-07] MEDS: CARVEDILOL 3.125 MG TABLET GT (08:42)
[2024-05-07] MEDS: CYANOCOBALAMIN (VITAMIN B-12) 500 MCG TABLET 1000 MCG GT (08:42)
[2024-05-07] MEDS: MULTIVITAMIN W MINERALS 1 EACH TABLET GT (08:42)
[2024-05-07] MEDS: DEXLANSOPRAZOLE 30 MG PO (08:42)
--- NOTE | 2024-05-07 18:28 | PD.SAPROG ---
Progress Note - SubAcute SUBJECTIVE Fever:: none GI:: none Shortness of Breath:: none Pain:: none OBJECTIVE Most recent vital signs: Last Vital Signs Temp 97.2 F 05/07/24 17:49 Pulse 55 L 05/07/24 17:49 Resp 19 05/07/24 17:49 BP 136/57 H 05/07/24 17:49 Pulse Ox 98 05/07/24 12:20 O2 Del Method Blow-by 05/04/24 18:00 O2 Flow Rate 6 05/07/24 12:20 FiO2 28 05/07/24 12:20 Neurological:: PVS Speech:: none Answers questions:: no Respiratory:: lungs clear Cardiovascular: RRR Abdomen: soft and nontender Extremities:: deformities (Spastic contractures of extremities) Decubitus:: none Tracheostomy:: to blow by Feeding per:: G tube Complaints:: none ASSESSMENT & PLAN Assessment: Pt remains essentially PVS for years. No new issues. Prognosis for independent living is poor Plan: Current treatment reviewed and continued
[2024-05-07] MEDS: ATORVASTATIN 40 MG TABLET GT (20:19)
[2024-05-07] MEDS: MAGNESIUM HYDROXIDE 30 ML ORAL SUSP ML GT (20:20)
[2024-05-07] MEDS: INSULIN GLARGINE 100 UNIT/ML INSULN.PEN 30 UNIT SC (20:21)
[2024-05-08] VITALS (9 sets, daily range): BP systolic 93–129; BP diastolic 59–79; PULSE 49–71; RESP 16–20; TEMP 36–36.3; O2SAT 96–100
[2024-05-08] MEDS: ALBUTEROL INHALER 200 PUFF/INH INHALER INH ×4 (00:42→18:25)
[2024-05-08] MEDS: IPRATROPIUM BROMIDE 200 PUFF/INH INHALER INH ×4 (00:42→18:25)
[2024-05-08] MEDS: CYANOCOBALAMIN (VITAMIN B-12) 500 MCG TABLET 1000 MCG GT (08:23)
[2024-05-08] MEDS: CARVEDILOL 3.125 MG TABLET GT (08:23)
[2024-05-08] MEDS: DEXLANSOPRAZOLE 30 MG PO (08:23)
[2024-05-08] MEDS: MULTIVITAMIN W MINERALS 1 EACH TABLET GT (08:24)
[2024-05-08] MEDS: ATORVASTATIN 40 MG TABLET GT (20:58)
[2024-05-08] MEDS: INSULIN GLARGINE 100 UNIT/ML INSULN.PEN 30 UNIT SC (21:04)
[2024-05-09] VITALS (9 sets, daily range): BP systolic 93–127; BP diastolic 49–72; PULSE 50–67; RESP 17–20; TEMP 35.9–36.4; O2SAT 95–98
[2024-05-09] MEDS: IPRATROPIUM BROMIDE 200 PUFF/INH INHALER INH ×3 (00:37→18:56)
[2024-05-09] MEDS: ALBUTEROL INHALER 200 PUFF/INH INHALER INH ×4 (00:37→18:56)
[2024-05-09] MEDS: CYANOCOBALAMIN (VITAMIN B-12) 500 MCG TABLET 1000 MCG GT (10:02)
[2024-05-09] MEDS: DEXLANSOPRAZOLE 30 MG PO (10:02)
[2024-05-09] MEDS: MULTIVITAMIN W MINERALS 1 EACH TABLET GT (10:02)
[2024-05-09] MEDS: INSULIN GLARGINE 100 UNIT/ML INSULN.PEN 30 UNIT SC (21:10)
[2024-05-09] MEDS: ATORVASTATIN 40 MG TABLET GT (21:10)
[2024-05-10] VITALS (9 sets, daily range): BP systolic 102–130; BP diastolic 60–73; PULSE 46–75; RESP 16–19; TEMP 36.1–36.2; O2SAT 97–99
[2024-05-10] MEDS: ALBUTEROL INHALER 200 PUFF/INH INHALER INH ×4 (01:38→19:27)
[2024-05-10] MEDS: IPRATROPIUM BROMIDE 200 PUFF/INH INHALER INH ×4 (01:38→19:27)
[2024-05-10] MEDS: CARVEDILOL 3.125 MG TABLET GT (08:34)
[2024-05-10] MEDS: CYANOCOBALAMIN (VITAMIN B-12) 500 MCG TABLET 1000 MCG GT (08:34)
[2024-05-10] MEDS: DEXLANSOPRAZOLE 30 MG PO (08:35)
[2024-05-10] MEDS: MULTIVITAMIN W MINERALS 1 EACH TABLET GT (08:36)
[2024-05-10] MEDS: ATORVASTATIN 40 MG TABLET GT (20:29)
[2024-05-10] MEDS: INSULIN GLARGINE 100 UNIT/ML INSULN.PEN 30 UNIT SC (21:11)
[2024-05-11] VITALS (8 sets, daily range): BP systolic 96–148; BP diastolic 58–74; PULSE 64–73; RESP 16–19; TEMP 36–36.2; O2SAT 96–99
[2024-05-11] MEDS: IPRATROPIUM BROMIDE 200 PUFF/INH INHALER INH ×4 (07:10→17:20)
[2024-05-11] MEDS: ALBUTEROL INHALER 200 PUFF/INH INHALER INH ×4 (07:10→17:20)
[2024-05-11] MEDS: CYANOCOBALAMIN (VITAMIN B-12) 500 MCG TABLET 1000 MCG GT (08:43)
[2024-05-11] MEDS: DEXLANSOPRAZOLE 30 MG PO (08:43)
[2024-05-11] MEDS: MULTIVITAMIN W MINERALS 1 EACH TABLET GT (08:43)
--- NOTE | 2024-05-11 11:17 | PC.SS ---
Room visit: Resident is laying in bed with head of the bed elevated with call light properly placed. Resident has no changes in care or condition, he remains on blow by with trach in place and GT in place for medication and nutrition. Resident will remain in current care as he is not ready to DC to lower level of care, due to heavy and complicated care regimen he will continue to have all subacute care needs met by staff. SSD will continue to make daily contact with resident and monitor for changes in mood and behavior.
[2024-05-11] MEDS: ATORVASTATIN 40 MG TABLET GT (20:42)
[2024-05-11] MEDS: MAGNESIUM HYDROXIDE 30 ML ORAL SUSP ML GT (20:43)
[2024-05-11] MEDS: INSULIN GLARGINE 100 UNIT/ML INSULN.PEN 30 UNIT SC (21:32)
--- NOTE | 2024-05-11 23:59 | PD.SAPROG ---
Progress Note - SubAcute SUBJECTIVE Fever:: none GI:: none Shortness of Breath:: none Pain:: none OBJECTIVE Most recent vital signs: Last Vital Signs Temp 97.2 F 05/11/24 17:51 Pulse 69 05/11/24 17:51 Resp 19 05/11/24 17:51 BP 137/72 H 05/11/24 17:51 Pulse Ox 98 05/11/24 17:51 O2 Del Method Blow-by 05/09/24 06:00 O2 Flow Rate 6 05/11/24 17:20 FiO2 28 05/11/24 17:20 Neurological:: PVS Speech:: none Answers questions:: no Respiratory:: lungs clear Cardiovascular: RRR Abdomen: soft and nontender Extremities:: deformities (Spastic contractures of extremities) Decubitus:: none Tracheostomy:: to blow by Feeding per:: G tube Complaints:: none ASSESSMENT & PLAN Assessment: Pt remains essentially PVS for years. No new issues. Prognosis for independent living is poor Plan: Current treatment reviewed and continued
[2024-05-12] VITALS (10 sets, daily range): BP systolic 109–142; BP diastolic 60–77; PULSE 51–79; RESP 16–21; TEMP 36.1–36.2; O2SAT 97–98
[2024-05-12] MEDS: IPRATROPIUM BROMIDE 200 PUFF/INH INHALER INH ×4 (00:32→19:01)
[2024-05-12] MEDS: ALBUTEROL INHALER 200 PUFF/INH INHALER INH ×4 (00:32→19:01)
[2024-05-12] MEDS: CARVEDILOL 3.125 MG TABLET GT (08:54)
[2024-05-12] MEDS: DEXLANSOPRAZOLE 30 MG PO (08:55)
[2024-05-12] MEDS: CYANOCOBALAMIN (VITAMIN B-12) 500 MCG TABLET 1000 MCG GT (08:55)
[2024-05-12] MEDS: MULTIVITAMIN W MINERALS 1 EACH TABLET GT (08:55)
[2024-05-12] MEDS: INSULIN GLARGINE 100 UNIT/ML INSULN.PEN 30 UNIT SC (21:26)
[2024-05-12] MEDS: ATORVASTATIN 40 MG TABLET GT (21:26)
[2024-05-13] VITALS (9 sets, daily range): BP systolic 90–168; BP diastolic 60–89; PULSE 57–83; RESP 16–20; TEMP 35.6–36.9; O2SAT 97–99
[2024-05-13] MEDS: ALBUTEROL INHALER 200 PUFF/INH INHALER INH ×4 (01:31→18:21)
[2024-05-13] MEDS: IPRATROPIUM BROMIDE 200 PUFF/INH INHALER INH ×4 (01:31→18:21)
[2024-05-13] MEDS: CARVEDILOL 3.125 MG TABLET GT (09:13)
[2024-05-13] MEDS: CYANOCOBALAMIN (VITAMIN B-12) 500 MCG TABLET 1000 MCG GT (09:13)
[2024-05-13] MEDS: MULTIVITAMIN W MINERALS 1 EACH TABLET GT (09:14)
[2024-05-13] MEDS: DEXLANSOPRAZOLE 30 MG PO (09:14)
[2024-05-13] MEDS: INSULIN GLARGINE 100 UNIT/ML INSULN.PEN 30 UNIT SC (21:27)
[2024-05-13] MEDS: ATORVASTATIN 40 MG TABLET GT (21:27)
[2024-05-14] VITALS (9 sets, daily range): BP systolic 98–139; BP diastolic 57–79; PULSE 55–79; RESP 18–24; TEMP 36–36.3; O2SAT 97–100
[2024-05-14] MEDS: IPRATROPIUM BROMIDE 200 PUFF/INH INHALER INH ×4 (01:00→18:38)
[2024-05-14] MEDS: ALBUTEROL INHALER 200 PUFF/INH INHALER INH ×4 (01:00→18:38)
[2024-05-14] MEDS: DEXLANSOPRAZOLE 30 MG PO (08:52)
[2024-05-14] MEDS: CYANOCOBALAMIN (VITAMIN B-12) 500 MCG TABLET 1000 MCG GT (08:52)
[2024-05-14] MEDS: MULTIVITAMIN W MINERALS 1 EACH TABLET GT (08:53)
[2024-05-15] VITALS (9 sets, daily range): BP systolic 105–137; BP diastolic 59–77; PULSE 51–89; RESP 16–20; TEMP 36.1–36.4; O2SAT 97–99
[2024-05-15] MEDS: ATORVASTATIN 40 MG TABLET GT ×2 (00:05→21:20)
[2024-05-15] MEDS: ALBUTEROL INHALER 200 PUFF/INH INHALER INH ×4 (00:36→16:30)
[2024-05-15] MEDS: IPRATROPIUM BROMIDE 200 PUFF/INH INHALER INH ×4 (00:36→16:30)
[2024-05-15] MEDS: MULTIVITAMIN W MINERALS 1 EACH TABLET GT (09:57)
[2024-05-15] MEDS: DEXLANSOPRAZOLE 30 MG PO (09:57)
[2024-05-15] MEDS: CYANOCOBALAMIN (VITAMIN B-12) 500 MCG TABLET 1000 MCG GT (09:57)
--- NOTE | 2024-05-15 16:38 | PC.NURSE ---
Seen by Dr Ramires, no new orders made
[2024-05-15] MEDS: INSULIN GLARGINE 100 UNIT/ML INSULN.PEN 30 UNIT SC ×2 (21:20)
--- NOTE | 2024-05-15 22:02 | PD.SAPROG ---
Progress Note - SubAcute SUBJECTIVE Fever:: none GI:: none Shortness of Breath:: none Pain:: none OBJECTIVE Most recent vital signs: Last Vital Signs Temp 97.5 F 05/15/24 17:18 Pulse 62 05/15/24 17:18 Resp 18 05/15/24 17:18 BP 137/71 H 05/15/24 17:18 Pulse Ox 98 05/15/24 17:18 O2 Del Method Blow-by 05/15/24 17:18 O2 Flow Rate 6 05/15/24 16:35 FiO2 28 05/15/24 16:35 Neurological:: PVS Speech:: none Answers questions:: no Respiratory:: lungs clear Cardiovascular: RRR Abdomen: soft and nontender Extremities:: deformities (Spastic contractures of extremities) Decubitus:: none Tracheostomy:: to blow by Feeding per:: G tube Complaints:: none ASSESSMENT & PLAN Assessment: Pt remains essentially PVS for years. No new issues. Prognosis for independent living is poor. No pain Plan: Current treatment reviewed and continued
[2024-05-15] MEDS: MAGNESIUM HYDROXIDE 30 ML ORAL SUSP ML GT (22:37)
[2024-05-16] VITALS (9 sets, daily range): BP systolic 90–139; BP diastolic 44–78; PULSE 46–79; RESP 16–20; TEMP 36.2–36.6; O2SAT 93–97
[2024-05-16] MEDS: ALBUTEROL INHALER 200 PUFF/INH INHALER INH ×4 (00:18→19:05)
[2024-05-16] MEDS: IPRATROPIUM BROMIDE 200 PUFF/INH INHALER INH ×4 (00:18→19:05)
[2024-05-16] MEDS: CYANOCOBALAMIN (VITAMIN B-12) 500 MCG TABLET 1000 MCG GT (08:56)
[2024-05-16] MEDS: DEXLANSOPRAZOLE 30 MG PO (08:56)
[2024-05-16] MEDS: MULTIVITAMIN W MINERALS 1 EACH TABLET GT (08:57)
[2024-05-16] MEDS: INSULIN GLARGINE 100 UNIT/ML INSULN.PEN 30 UNIT SC (21:31)
[2024-05-16] MEDS: ATORVASTATIN 40 MG TABLET GT (21:32)
[2024-05-17] VITALS (9 sets, daily range): BP systolic 107–153; BP diastolic 65–87; PULSE 50–80; RESP 16–20; TEMP 36.1–36.3; O2SAT 96–100
[2024-05-17] MEDS: ALBUTEROL INHALER 200 PUFF/INH INHALER INH ×4 (00:50→18:50)
[2024-05-17] MEDS: IPRATROPIUM BROMIDE 200 PUFF/INH INHALER INH ×4 (00:50→18:50)
[2024-05-17] MEDS: MULTIVITAMIN W MINERALS 1 EACH TABLET GT (08:58)
[2024-05-17] MEDS: CYANOCOBALAMIN (VITAMIN B-12) 500 MCG TABLET 1000 MCG GT (08:58)
[2024-05-17] MEDS: DEXLANSOPRAZOLE 30 MG PO (08:58)
[2024-05-17] MEDS: ATORVASTATIN 40 MG TABLET GT (21:38)
[2024-05-17] MEDS: INSULIN GLARGINE 100 UNIT/ML INSULN.PEN 30 UNIT SC (21:41)
[2024-05-18] VITALS (9 sets, daily range): BP systolic 108–146; BP diastolic 59–93; PULSE 45–76; RESP 16–89; TEMP 36.1–36.2; O2SAT 92–99
[2024-05-18] MEDS: ALBUTEROL INHALER 200 PUFF/INH INHALER INH ×4 (00:44→18:59)
[2024-05-18] MEDS: IPRATROPIUM BROMIDE 200 PUFF/INH INHALER INH ×4 (00:44→18:59)
[2024-05-18] MEDS: CARBAMIDE PEROXIDE OTIC SOL 15 ML BTL 5 DROP BOTH EARS ×2 (08:46→20:16)
[2024-05-18] MEDS: CARVEDILOL 3.125 MG TABLET GT (08:46)
[2024-05-18] MEDS: DEXLANSOPRAZOLE 30 MG PO (08:47)
[2024-05-18] MEDS: MULTIVITAMIN W MINERALS 1 EACH TABLET GT (08:47)
[2024-05-18] MEDS: CYANOCOBALAMIN (VITAMIN B-12) 500 MCG TABLET 1000 MCG GT (08:47)
[2024-05-18] MEDS: INSULIN GLARGINE 100 UNIT/ML INSULN.PEN 30 UNIT SC (20:11)
[2024-05-18] MEDS: ATORVASTATIN 40 MG TABLET GT (20:15)
[2024-05-18] MEDS: MAGNESIUM HYDROXIDE 30 ML ORAL SUSP ML GT (20:47)
[2024-05-19] VITALS (11 sets, daily range): BP systolic 99–134; BP diastolic 50–94; PULSE 47–73; RESP 16–89; TEMP 35.7–36.7; O2SAT 92–99
[2024-05-19] MEDS: ALBUTEROL INHALER 200 PUFF/INH INHALER INH ×4 (00:27→19:56)
[2024-05-19] MEDS: IPRATROPIUM BROMIDE 200 PUFF/INH INHALER INH ×4 (00:27→19:56)
[2024-05-19] MEDS: CARVEDILOL 3.125 MG TABLET GT (09:40)
[2024-05-19] MEDS: CYANOCOBALAMIN (VITAMIN B-12) 500 MCG TABLET 1000 MCG GT (09:41)
[2024-05-19] MEDS: DEXLANSOPRAZOLE 30 MG PO (09:42)
[2024-05-19] MEDS: MULTIVITAMIN W MINERALS 1 EACH TABLET GT (09:42)
[2024-05-19] MEDS: BISACODYL 10 MG SUPP.RECT PR (14:24)
[2024-05-19] MEDS: ATORVASTATIN 40 MG TABLET GT (21:02)
[2024-05-19] MEDS: INSULIN GLARGINE 100 UNIT/ML INSULN.PEN 30 UNIT SC (21:08)
--- NOTE | 2024-05-19 23:36 | PD.SAPROG ---
Progress Note - SubAcute SUBJECTIVE Fever:: none GI:: none Shortness of Breath:: none Pain:: none OBJECTIVE Most recent vital signs: Last Vital Signs Temp 97.1 F 05/19/24 17:53 Pulse 68 05/19/24 18:48 Resp 18 05/19/24 18:48 BP 99/52 L 05/19/24 17:53 Pulse Ox 99 05/19/24 18:48 O2 Del Method Blow-by 05/18/24 18:00 O2 Flow Rate 6 05/19/24 18:48 FiO2 28 05/19/24 18:48 Neurological:: PVS Speech:: none Answers questions:: no Respiratory:: lungs clear Cardiovascular: RRR Abdomen: soft and nontender Extremities:: deformities (Spastic contractures of extremities) Decubitus:: none Tracheostomy:: to blow by Feeding per:: G tube Complaints:: none ASSESSMENT & PLAN Assessment: Pt remains essentially PVS for years. No new issues. Prognosis for independent living is poor. No pain Plan: Current treatment reviewed and continued
[2024-05-20] VITALS (9 sets, daily range): BP systolic 105–146; BP diastolic 50–83; PULSE 55–75; RESP 16–20; TEMP 36.1–36.8; O2SAT 95–100
[2024-05-20] MEDS: ALBUTEROL INHALER 200 PUFF/INH INHALER INH ×4 (00:35→18:25)
[2024-05-20] MEDS: IPRATROPIUM BROMIDE 200 PUFF/INH INHALER INH ×3 (00:35→18:25)
[2024-05-20] MEDS: DEXLANSOPRAZOLE 30 MG PO (08:06)
[2024-05-20] MEDS: CYANOCOBALAMIN (VITAMIN B-12) 500 MCG TABLET 1000 MCG GT (08:07)
[2024-05-20] MEDS: MULTIVITAMIN W MINERALS 1 EACH TABLET GT (08:07)
[2024-05-20] MEDS: CARVEDILOL 3.125 MG TABLET GT (08:11)
[2024-05-20] MEDS: ATORVASTATIN 40 MG TABLET GT (21:02)
[2024-05-20] MEDS: INSULIN GLARGINE 100 UNIT/ML INSULN.PEN 30 UNIT SC (21:48)
[2024-05-21] VITALS (9 sets, daily range): BP systolic 90–144; BP diastolic 62–77; PULSE 54–77; RESP 16–20; TEMP 36–36.3; O2SAT 96–100
[2024-05-21] MEDS: IPRATROPIUM BROMIDE 200 PUFF/INH INHALER INH ×4 (00:28→18:30)
[2024-05-21] MEDS: ALBUTEROL INHALER 200 PUFF/INH INHALER INH ×4 (00:28→18:30)
[2024-05-21] MEDS: MULTIVITAMIN W MINERALS 1 EACH TABLET GT (08:37)
[2024-05-21] MEDS: CYANOCOBALAMIN (VITAMIN B-12) 500 MCG TABLET 1000 MCG GT (08:37)
[2024-05-21] MEDS: DEXLANSOPRAZOLE 30 MG PO (08:37)
[2024-05-21] MEDS: ATORVASTATIN 40 MG TABLET GT (20:59)
[2024-05-21] MEDS: INSULIN GLARGINE 100 UNIT/ML INSULN.PEN 30 UNIT SC (21:04)
[2024-05-22] VITALS (9 sets, daily range): BP systolic 111–142; BP diastolic 59–68; PULSE 54–76; RESP 17–20; TEMP 36–36.5; O2SAT 97–100
[2024-05-22] MEDS: IPRATROPIUM BROMIDE 200 PUFF/INH INHALER INH ×4 (00:15→18:15)
[2024-05-22] MEDS: ALBUTEROL INHALER 200 PUFF/INH INHALER INH ×4 (00:15→18:15)
[2024-05-22] MEDS: CARVEDILOL 3.125 MG TABLET GT (08:46)
[2024-05-22] MEDS: CYANOCOBALAMIN (VITAMIN B-12) 500 MCG TABLET 1000 MCG GT (08:48)
[2024-05-22] MEDS: DEXLANSOPRAZOLE 30 MG PO (08:48)
[2024-05-22] MEDS: MULTIVITAMIN W MINERALS 1 EACH TABLET GT (08:48)
[2024-05-22] MEDS: ATORVASTATIN 40 MG TABLET GT (20:45)
[2024-05-22] MEDS: INSULIN GLARGINE 100 UNIT/ML INSULN.PEN 30 UNIT SC (20:45)
[2024-05-22] MEDS: ACETAMINOPHEN 325 MG TABLET 650 MG GT (23:41)
[2024-05-23] VITALS (10 sets, daily range): BP systolic 104–146; BP diastolic 60–82; PULSE 47–74; RESP 16–20; TEMP 36.1–36.7; O2SAT 97–100
[2024-05-23] MEDS: IPRATROPIUM BROMIDE 200 PUFF/INH INHALER INH ×4 (00:35→19:29)
[2024-05-23] MEDS: ALBUTEROL INHALER 200 PUFF/INH INHALER INH ×4 (00:35→19:29)
[2024-05-23] MEDS: CYANOCOBALAMIN (VITAMIN B-12) 500 MCG TABLET 1000 MCG GT (08:30)
[2024-05-23] MEDS: DEXLANSOPRAZOLE 30 MG PO (08:30)
[2024-05-23] MEDS: MULTIVITAMIN W MINERALS 1 EACH TABLET GT (08:31)
--- NOTE | 2024-05-23 11:32 | PC.SS ---
Resident seen by Dr. Correa/DARSHAN for oral exam. Resident tolerated treatment will with no new recommendations. Resident to continue current care and will be seen by ROBS annually and PRN.
--- NOTE | 2024-05-23 18:21 | PD.SAPROG ---
Progress Note - SubAcute SUBJECTIVE Fever:: none GI:: none Shortness of Breath:: none Pain:: none OBJECTIVE Most recent vital signs: Last Vital Signs Temp 97.6 F 05/23/24 17:27 Pulse 60 05/23/24 17:27 Resp 19 05/23/24 17:27 BP 142/82 H 05/23/24 17:27 Pulse Ox 97 05/23/24 17:27 O2 Del Method Blow-by 05/23/24 17:27 O2 Flow Rate 6 05/23/24 12:24 FiO2 28 05/23/24 12:24 Neurological:: PVS Speech:: none Answers questions:: no Respiratory:: lungs clear Cardiovascular: RRR Abdomen: soft and nontender Extremities:: deformities (Spastic contractures of extremities) Decubitus:: none Tracheostomy:: to blow by Feeding per:: G tube Complaints:: none ASSESSMENT & PLAN Assessment: Pt remains essentially PVS for years. No new issues. Prognosis for independent living is poor. Plan: Current treatment reviewed and continued
[2024-05-23] MEDS: ATORVASTATIN 40 MG TABLET GT (20:01)
[2024-05-23] MEDS: INSULIN GLARGINE 100 UNIT/ML INSULN.PEN 30 UNIT SC (20:02)
[2024-05-24] VITALS (7 sets, daily range): BP systolic 106–132; BP diastolic 68–74; PULSE 50–97; RESP 17–20; TEMP 35.9–36.3; O2SAT 97–99
[2024-05-24] MEDS: IPRATROPIUM BROMIDE 200 PUFF/INH INHALER INH ×4 (01:06→18:25)
[2024-05-24] MEDS: ALBUTEROL INHALER 200 PUFF/INH INHALER INH ×4 (01:06→18:25)
[2024-05-24] MEDS: MULTIVITAMIN W MINERALS 1 EACH TABLET GT (09:55)
[2024-05-24] MEDS: DEXLANSOPRAZOLE 30 MG PO (09:55)
[2024-05-24] MEDS: CYANOCOBALAMIN (VITAMIN B-12) 500 MCG TABLET 1000 MCG GT (09:55)
[2024-05-24] MEDS: ATORVASTATIN 40 MG TABLET GT (20:05)
[2024-05-24] MEDS: INSULIN GLARGINE 100 UNIT/ML INSULN.PEN 30 UNIT SC (21:30)
[2024-05-25] VITALS (9 sets, daily range): BP systolic 127–139; BP diastolic 60–83; PULSE 55–73; RESP 16–20; TEMP 35.9–36.3; O2SAT 97–99
[2024-05-25] MEDS: IPRATROPIUM BROMIDE 200 PUFF/INH INHALER INH ×4 (00:10→18:40)
[2024-05-25] MEDS: ALBUTEROL INHALER 200 PUFF/INH INHALER INH ×2 (00:10→18:40)
[2024-05-25] MEDS: CARVEDILOL 3.125 MG TABLET GT (08:50)
[2024-05-25] MEDS: DEXLANSOPRAZOLE 30 MG PO (08:51)
[2024-05-25] MEDS: CYANOCOBALAMIN (VITAMIN B-12) 500 MCG TABLET 1000 MCG GT (08:51)
[2024-05-25] MEDS: MULTIVITAMIN W MINERALS 1 EACH TABLET GT (08:51)
[2024-05-25] MEDS: GUAIFENESIN GT (16:49)
[2024-05-25] MEDS: DEXTROMETHORPHAN GT (16:49)
[2024-05-25] MEDS: PHENYLEPHRINE GT (16:49)
[2024-05-25] MEDS: ATORVASTATIN 40 MG TABLET GT (20:32)
[2024-05-25] MEDS: INSULIN GLARGINE 100 UNIT/ML INSULN.PEN 30 UNIT SC (20:32)
[2024-05-26] VITALS (10 sets, daily range): BP systolic 100–149; BP diastolic 59–70; PULSE 50–73; RESP 17–20; TEMP 36.2–36.7; O2SAT 94–100
[2024-05-26] MEDS: IPRATROPIUM BROMIDE 200 PUFF/INH INHALER INH ×4 (00:20→19:19)
[2024-05-26] MEDS: ALBUTEROL INHALER 200 PUFF/INH INHALER INH ×4 (00:20→19:19)
[2024-05-26] MEDS: DEXLANSOPRAZOLE 30 MG PO (08:19)
[2024-05-26] MEDS: CYANOCOBALAMIN (VITAMIN B-12) 500 MCG TABLET 1000 MCG GT (08:19)
[2024-05-26] MEDS: MULTIVITAMIN W MINERALS 1 EACH TABLET GT (08:19)
[2024-05-26] MEDS: CARVEDILOL 3.125 MG TABLET GT (08:19)
[2024-05-26] MEDS: ACETAMINOPHEN 325 MG TABLET 650 MG GT (08:22)
[2024-05-26] MEDS: PHENYLEPHRINE GT (08:24)
[2024-05-26] MEDS: DEXTROMETHORPHAN GT (08:24)
[2024-05-26] MEDS: GUAIFENESIN GT (08:24)
--- NOTE | 2024-05-26 16:10 | PC.IP ---
IP Note: Received Moderna Spikevax Covid 24- vaccine to left deltoid. Lot# [id number] Exp: 01/02/25. Staff will monitor for signs of fever and discomfort.
[2024-05-26] MEDS: ATORVASTATIN 40 MG TABLET GT (20:59)
[2024-05-26] MEDS: INSULIN GLARGINE 100 UNIT/ML INSULN.PEN 30 UNIT SC (21:00)
[2024-05-27] VITALS (10 sets, daily range): BP systolic 92–154; BP diastolic 48–80; PULSE 56–78; RESP 16–20; TEMP 36.1–36.4; O2SAT 96–99
[2024-05-27] MEDS: ALBUTEROL INHALER 200 PUFF/INH INHALER INH ×4 (01:20→18:34)
[2024-05-27] MEDS: IPRATROPIUM BROMIDE 200 PUFF/INH INHALER INH ×3 (07:05→18:34)
[2024-05-27] MEDS: CYANOCOBALAMIN (VITAMIN B-12) 500 MCG TABLET 1000 MCG GT (09:24)
[2024-05-27] MEDS: DEXLANSOPRAZOLE 30 MG PO (09:24)
[2024-05-27] MEDS: MULTIVITAMIN W MINERALS 1 EACH TABLET GT (09:24)
--- NOTE | 2024-05-27 17:57 | PD.SAPROG ---
Progress Note - SubAcute SUBJECTIVE Fever:: none GI:: none Shortness of Breath:: none Pain:: none OBJECTIVE Most recent vital signs: Last Vital Signs Temp 96.9 F 05/27/24 12:00 Pulse 78 05/27/24 12:20 Resp 16 05/27/24 12:20 BP 103/48 L 05/27/24 12:00 Pulse Ox 96 05/27/24 12:20 O2 Del Method Blow-by 05/27/24 12:00 O2 Flow Rate 6 05/27/24 12:20 FiO2 28 05/27/24 12:20 Neurological:: PVS Speech:: none Answers questions:: no Respiratory:: lungs clear Cardiovascular: RRR Abdomen: soft and nontender Extremities:: deformities (Spastic contractures of extremities) Decubitus:: none Tracheostomy:: to blow by Feeding per:: G tube Complaints:: none ASSESSMENT & PLAN Assessment: Pt remains essentially PVS for years. No new issues. Prognosis for independent living is poor. No pain/ discomfort. Tolerates feeding. Plan: Current treatment reviewed and continued
[2024-05-27] MEDS: INSULIN GLARGINE 100 UNIT/ML INSULN.PEN 30 UNIT SC (21:11)
[2024-05-27] MEDS: ATORVASTATIN 40 MG TABLET GT (21:21)
[2024-05-28] VITALS (8 sets, daily range): BP systolic 113–145; BP diastolic 57–87; PULSE 59–74; RESP 17–20; TEMP 36.2–36.3; O2SAT 96–100
[2024-05-28] MEDS: ALBUTEROL INHALER 200 PUFF/INH INHALER INH ×4 (01:39→18:38)
[2024-05-28] MEDS: IPRATROPIUM BROMIDE 200 PUFF/INH INHALER INH ×4 (01:39→18:38)
[2024-05-28] MEDS: CYANOCOBALAMIN (VITAMIN B-12) 500 MCG TABLET 1000 MCG GT (08:40)
[2024-05-28] MEDS: CARVEDILOL 3.125 MG TABLET GT (08:40)
[2024-05-28] MEDS: DEXLANSOPRAZOLE 30 MG PO (08:41)
[2024-05-28] MEDS: MULTIVITAMIN W MINERALS 1 EACH TABLET GT (08:41)
[2024-05-28] MEDS: ATORVASTATIN 40 MG TABLET GT (20:20)
[2024-05-28] MEDS: INSULIN GLARGINE 100 UNIT/ML INSULN.PEN 30 UNIT SC (21:22)
[2024-05-29] VITALS (9 sets, daily range): BP systolic 104–125; BP diastolic 65–71; PULSE 47–83; RESP 16–20; TEMP 36–36.2; O2SAT 96–100
[2024-05-29] MEDS: IPRATROPIUM BROMIDE 200 PUFF/INH INHALER INH ×4 (00:43→19:21)
[2024-05-29] MEDS: ALBUTEROL INHALER 200 PUFF/INH INHALER INH ×4 (00:43→19:21)
[2024-05-29] MEDS: CARVEDILOL 3.125 MG TABLET GT (08:50)
[2024-05-29] MEDS: CYANOCOBALAMIN (VITAMIN B-12) 500 MCG TABLET 1000 MCG GT (08:51)
[2024-05-29] MEDS: MULTIVITAMIN W MINERALS 1 EACH TABLET GT (08:51)
[2024-05-29] MEDS: DEXLANSOPRAZOLE 30 MG PO (08:51)
[2024-05-29] MEDS: ATORVASTATIN 40 MG TABLET GT (20:45)
--- NOTE | 2024-05-29 21:33 | PD.SAPROG ---
Progress Note - SubAcute SUBJECTIVE Fever:: none GI:: none Shortness of Breath:: none Pain:: none OBJECTIVE Most recent vital signs: Last Vital Signs Temp 96.8 F 05/29/24 17:33 Pulse 47 L 05/29/24 17:33 Resp 20 05/29/24 17:33 BP 118/67 05/29/24 17:33 Pulse Ox 96 05/29/24 17:33 O2 Del Method Blow-by 05/29/24 17:33 O2 Flow Rate 6 05/29/24 11:38 FiO2 28 05/29/24 11:38 Neurological:: PVS Speech:: none Answers questions:: no Respiratory:: lungs clear Cardiovascular: RRR Abdomen: soft and nontender Extremities:: deformities (Spastic contractures of extremities) Decubitus:: none Tracheostomy:: to blow by Feeding per:: G tube Complaints:: none ASSESSMENT & PLAN Assessment: Pt remains essentially PVS for years. No new issues. Prognosis for independent living is poor. No pain/ discomfort. Tolerates feeding. Plan: Current treatment reviewed and continued
[2024-05-29] MEDS: INSULIN GLARGINE 100 UNIT/ML INSULN.PEN 30 UNIT SC (21:36)
[2024-05-30] VITALS (10 sets, daily range): BP systolic 93–122; BP diastolic 58–70; PULSE 48–67; RESP 17–18; TEMP 36.1–36.3; O2SAT 96–100; BMI 24.3
[2024-05-30] MEDS: ALBUTEROL INHALER 200 PUFF/INH INHALER INH ×4 (00:20→18:44)
[2024-05-30] MEDS: IPRATROPIUM BROMIDE 200 PUFF/INH INHALER INH ×3 (00:20→18:44)
[2024-05-30] MEDS: CYANOCOBALAMIN (VITAMIN B-12) 500 MCG TABLET 1000 MCG GT (08:03)
[2024-05-30] MEDS: MULTIVITAMIN W MINERALS 1 EACH TABLET GT (08:03)
[2024-05-30] MEDS: DEXLANSOPRAZOLE 30 MG PO (08:03)
[2024-05-30] MEDS: ATORVASTATIN 40 MG TABLET GT (20:26)
[2024-05-30] MEDS: INSULIN GLARGINE 100 UNIT/ML INSULN.PEN 30 UNIT SC (21:00)
[2024-05-31] VITALS (10 sets, daily range): BP systolic 105–130; BP diastolic 58–75; PULSE 52–71; RESP 16–19; TEMP 36.1–36.4; O2SAT 90–98
[2024-05-31] MEDS: IPRATROPIUM BROMIDE 200 PUFF/INH INHALER INH ×3 (00:53→18:32)
[2024-05-31] MEDS: ALBUTEROL INHALER 200 PUFF/INH INHALER INH ×3 (00:53→18:32)
[2024-05-31] MEDS: CARVEDILOL 3.125 MG TABLET GT (08:42)
[2024-05-31] MEDS: CYANOCOBALAMIN (VITAMIN B-12) 500 MCG TABLET 1000 MCG GT (08:44)
[2024-05-31] MEDS: MULTIVITAMIN W MINERALS 1 EACH TABLET GT (08:44)
[2024-05-31] MEDS: DEXLANSOPRAZOLE 30 MG PO (08:44)
[2024-05-31] MEDS: ATORVASTATIN 40 MG TABLET GT (20:58)
[2024-05-31] MEDS: INSULIN GLARGINE 100 UNIT/ML INSULN.PEN 30 UNIT SC (20:58)
[2024-06-01] VITALS (9 sets, daily range): BP systolic 94–148; BP diastolic 56–76; PULSE 51–74; RESP 14–18; TEMP 36–36.2; O2SAT 96–100
[2024-06-01] MEDS: ALBUTEROL INHALER 200 PUFF/INH INHALER INH ×4 (00:35→17:12)
[2024-06-01] MEDS: IPRATROPIUM BROMIDE 200 PUFF/INH INHALER INH ×4 (00:35→17:12)
[2024-06-01] MEDS: CARVEDILOL 3.125 MG TABLET GT (08:41)
[2024-06-01] MEDS: DEXLANSOPRAZOLE 30 MG PO (08:42)
[2024-06-01] MEDS: CYANOCOBALAMIN (VITAMIN B-12) 500 MCG TABLET 1000 MCG GT (08:42)
[2024-06-01] MEDS: MULTIVITAMIN W MINERALS 1 EACH TABLET GT (08:42)
[2024-06-01] MEDS: FLU VACC TS 2024-25 (6 MOS UP) 45 MCG/0.5 ML VIAL IMi (11:17)
[2024-06-01] MEDS: ATORVASTATIN 40 MG TABLET GT (20:52)
[2024-06-01] MEDS: INSULIN GLARGINE 100 UNIT/ML INSULN.PEN 30 UNIT SC (20:53)
[2024-06-02] VITALS (9 sets, daily range): BP systolic 97–133; BP diastolic 56–79; PULSE 54–83; RESP 16–20; TEMP 36.1–36.4; O2SAT 96–99
[2024-06-02] MEDS: ALBUTEROL INHALER 200 PUFF/INH INHALER INH ×4 (01:29→19:35)
[2024-06-02] MEDS: IPRATROPIUM BROMIDE 200 PUFF/INH INHALER INH ×3 (01:29→19:35)
[2024-06-02] MEDS: DEXLANSOPRAZOLE 30 MG PO (09:14)
[2024-06-02] MEDS: CYANOCOBALAMIN (VITAMIN B-12) 500 MCG TABLET 1000 MCG GT (09:14)
[2024-06-02] MEDS: CARVEDILOL 3.125 MG TABLET GT (09:14)
[2024-06-02] MEDS: MULTIVITAMIN W MINERALS 1 EACH TABLET GT (09:15)
--- NOTE | 2024-06-02 15:01 | PC.SS ---
Room visit: Resident is laying in bed with head of the bed elevated with call light properly placed with no signs of distress. Resident has no changes in care or condition, resident remains on blow by with trach in place and GT for medication and nutrition. Resident will remain in current care and will continue to have all subacute care needs met by staff. This SSD will continue to make daily contact with resident and monitor for changes in mood and behavior.
[2024-06-02] MEDS: INSULIN GLARGINE 100 UNIT/ML INSULN.PEN 30 UNIT SC (21:00)
[2024-06-02] MEDS: ATORVASTATIN 40 MG TABLET GT (21:20)
--- NOTE | 2024-06-02 21:38 | PD.SAPROG ---
Progress Note - SubAcute SUBJECTIVE Fever:: none GI:: none Shortness of Breath:: none Pain:: none OBJECTIVE Most recent vital signs: Last Vital Signs Temp 97 F 06/02/24 16:53 Pulse 65 06/02/24 16:53 Resp 17 06/02/24 16:53 BP 102/56 L 06/02/24 16:53 Pulse Ox 98 06/02/24 16:53 O2 Del Method Blow-by 06/02/24 16:53 O2 Flow Rate 6 06/02/24 13:19 FiO2 28 06/02/24 13:19 Neurological:: PVS Speech:: none Answers questions:: no Respiratory:: lungs clear Cardiovascular: RRR Abdomen: soft and nontender Extremities:: deformities (Spastic contractures of extremities) Decubitus:: none Tracheostomy:: to blow by Feeding per:: G tube Complaints:: none ASSESSMENT & PLAN Assessment: Pt remains essentially PVS for years. No new issues. Prognosis for independent living is poor. No pain/ discomfort. Tolerates feeding. Plan: Current treatment reviewed and continued
[2024-06-03] VITALS (9 sets, daily range): BP systolic 111–142; BP diastolic 60–84; PULSE 58–78; RESP 17–18; TEMP 36.2–36.5; O2SAT 96–100
[2024-06-03] MEDS: ALBUTEROL INHALER 200 PUFF/INH INHALER INH ×4 (00:20→19:00)
[2024-06-03] MEDS: IPRATROPIUM BROMIDE 200 PUFF/INH INHALER INH ×4 (00:20→19:00)
[2024-06-03] MEDS: CARVEDILOL 3.125 MG TABLET GT (08:30)
[2024-06-03] MEDS: MULTIVITAMIN W MINERALS 1 EACH TABLET GT (08:31)
[2024-06-03] MEDS: DEXLANSOPRAZOLE 30 MG PO (08:31)
[2024-06-03] MEDS: CYANOCOBALAMIN (VITAMIN B-12) 500 MCG TABLET 1000 MCG GT (08:31)
[2024-06-03] MEDS: ATORVASTATIN 40 MG TABLET GT (21:21)
[2024-06-03] MEDS: INSULIN GLARGINE 100 UNIT/ML INSULN.PEN 30 UNIT SC (21:25)
[2024-06-04] VITALS (9 sets, daily range): BP systolic 110–156; BP diastolic 64–84; PULSE 56–76; RESP 18–20; TEMP 36.1–36.3; O2SAT 95–99
[2024-06-04] MEDS: ALBUTEROL INHALER 200 PUFF/INH INHALER INH ×4 (00:22→20:35)
[2024-06-04] MEDS: IPRATROPIUM BROMIDE 200 PUFF/INH INHALER INH ×4 (00:22→20:35)
[2024-06-04] MEDS: CARVEDILOL 3.125 MG TABLET GT (08:35)
[2024-06-04] MEDS: MULTIVITAMIN W MINERALS 1 EACH TABLET GT (08:36)
[2024-06-04] MEDS: CYANOCOBALAMIN (VITAMIN B-12) 500 MCG TABLET 1000 MCG GT (08:36)
[2024-06-04] MEDS: DEXLANSOPRAZOLE 30 MG PO (08:36)
[2024-06-04] MEDS: INSULIN GLARGINE 100 UNIT/ML INSULN.PEN 30 UNIT SC (20:54)
[2024-06-04] MEDS: ATORVASTATIN 40 MG TABLET GT (20:59)
[2024-06-05] VITALS (9 sets, daily range): BP systolic 96–138; BP diastolic 54–72; PULSE 54–87; RESP 16–20; TEMP 36–36.4; O2SAT 95–99
[2024-06-05] MEDS: IPRATROPIUM BROMIDE 200 PUFF/INH INHALER INH ×4 (00:45→19:17)
[2024-06-05] MEDS: ALBUTEROL INHALER 200 PUFF/INH INHALER INH ×4 (00:45→19:17)
[2024-06-05] MEDS: CARVEDILOL 3.125 MG TABLET GT (08:35)
[2024-06-05] MEDS: CYANOCOBALAMIN (VITAMIN B-12) 500 MCG TABLET 1000 MCG GT (08:36)
[2024-06-05] MEDS: DEXLANSOPRAZOLE 30 MG PO (08:36)
[2024-06-05] MEDS: MULTIVITAMIN W MINERALS 1 EACH TABLET GT (08:37)
[2024-06-05] MEDS: INSULIN GLARGINE 100 UNIT/ML INSULN.PEN 30 UNIT SC (20:27)
[2024-06-05] MEDS: ATORVASTATIN 40 MG TABLET GT (20:27)
[2024-06-06] VITALS (9 sets, daily range): BP systolic 97–152; BP diastolic 60–77; PULSE 49–85; RESP 16–22; TEMP 36.1–36.4; O2SAT 96–100
[2024-06-06] MEDS: IPRATROPIUM BROMIDE 200 PUFF/INH INHALER INH ×4 (01:24→19:10)
[2024-06-06] MEDS: ALBUTEROL INHALER 200 PUFF/INH INHALER INH ×4 (01:24→19:10)
[2024-06-06] MEDS: MULTIVITAMIN W MINERALS 1 EACH TABLET GT (08:14)
[2024-06-06] MEDS: CYANOCOBALAMIN (VITAMIN B-12) 500 MCG TABLET 1000 MCG GT (08:14)
[2024-06-06] MEDS: DEXLANSOPRAZOLE 30 MG PO (08:14)
[2024-06-06] MEDS: ATORVASTATIN 40 MG TABLET GT (20:54)
[2024-06-06] MEDS: INSULIN GLARGINE 100 UNIT/ML INSULN.PEN 30 UNIT SC (21:50)
--- NOTE | 2024-06-06 22:20 | PD.SAPROG ---
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 (3) Chronic respiratory failure, unspecified whether with hypoxia or hypercapnia: Status: Chronic (4) Hyperlipidemia, unspecified: Status: Chronic (5) Tracheostomy status: Status: Chronic (6) Chronic atrial fibrillation: Status: Chronic SUBJECTIVE Fever:: none GI:: none Shortness of Breath:: none Pain:: none OBJECTIVE Most recent vital signs: Last Vital Signs Temp 97.5 F 06/06/24 17:38 Pulse 64 06/06/24 17:38 Resp 17 06/06/24 17:38 BP 97/60 06/06/24 17:38 Pulse Ox 97 06/06/24 17:38 O2 Del Method Blow-by 06/06/24 17:38 O2 Flow Rate 6 06/06/24 12:19 FiO2 28 06/06/24 12:19 Neurological:: PVS Speech:: none Answers questions:: no Respiratory:: lungs clear Cardiovascular: RRR Abdomen: soft and nontender Extremities:: deformities (Spastic contractures of extremities) Decubitus:: none Tracheostomy:: to blow by Feeding per:: G tube Complaints:: none ASSESSMENT & PLAN Assessment: Pt remains essentially PVS for years. No new issues. Prognosis for independent living is poor. No pain/ discomfort. Tolerates feeding. Plan: Current treatment reviewed and continued
[2024-06-07] VITALS (10 sets, daily range): BP systolic 93–130; BP diastolic 55–80; PULSE 54–81; RESP 17–19; TEMP 36.1–36.5; O2SAT 97–98
[2024-06-07] MEDS: IPRATROPIUM BROMIDE 200 PUFF/INH INHALER INH ×4 (00:20→19:10)
[2024-06-07] MEDS: ALBUTEROL INHALER 200 PUFF/INH INHALER INH ×4 (00:20→19:10)
[2024-06-07] MEDS: CYANOCOBALAMIN (VITAMIN B-12) 500 MCG TABLET 1000 MCG GT (08:56)
[2024-06-07] MEDS: DEXLANSOPRAZOLE 30 MG PO (08:57)
[2024-06-07] MEDS: MULTIVITAMIN W MINERALS 1 EACH TABLET GT (08:57)
[2024-06-07] MEDS: ATORVASTATIN 40 MG TABLET GT (21:06)
[2024-06-07] MEDS: INSULIN GLARGINE 100 UNIT/ML INSULN.PEN 30 UNIT SC (21:06)
[2024-06-08] VITALS (9 sets, daily range): BP systolic 114–135; BP diastolic 65–75; PULSE 45–90; RESP 18–20; TEMP 36.1–36.6; O2SAT 96–100
[2024-06-08] MEDS: ALBUTEROL INHALER 200 PUFF/INH INHALER INH ×4 (00:20→18:51)
[2024-06-08] MEDS: IPRATROPIUM BROMIDE 200 PUFF/INH INHALER INH ×4 (00:20→18:51)
[2024-06-08] MEDS: DEXLANSOPRAZOLE 30 MG PO (09:45)
[2024-06-08] MEDS: MULTIVITAMIN W MINERALS 1 EACH TABLET GT (09:45)
[2024-06-08] MEDS: CYANOCOBALAMIN (VITAMIN B-12) 500 MCG TABLET 1000 MCG GT (09:45)
[2024-06-08] MEDS: ATORVASTATIN 40 MG TABLET GT (20:46)
[2024-06-08] MEDS: INSULIN GLARGINE 100 UNIT/ML INSULN.PEN 30 UNIT SC (21:23)
[2024-06-09] VITALS (9 sets, daily range): BP systolic 101–126; BP diastolic 55–79; PULSE 55–87; RESP 17–19; TEMP 35.9–36.8; O2SAT 97–100
[2024-06-09] MEDS: IPRATROPIUM BROMIDE 200 PUFF/INH INHALER INH ×4 (01:26→19:55)
[2024-06-09] MEDS: ALBUTEROL INHALER 200 PUFF/INH INHALER INH ×4 (01:26→19:55)
[2024-06-09] MEDS: CARVEDILOL 3.125 MG TABLET GT (08:44)
[2024-06-09] MEDS: DEXLANSOPRAZOLE 30 MG PO (08:45)
[2024-06-09] MEDS: CYANOCOBALAMIN (VITAMIN B-12) 500 MCG TABLET 1000 MCG GT (08:45)
[2024-06-09] MEDS: MULTIVITAMIN W MINERALS 1 EACH TABLET GT (08:45)
[2024-06-09] MEDS: INSULIN GLARGINE 100 UNIT/ML INSULN.PEN 30 UNIT SC (21:16)
[2024-06-09] MEDS: ATORVASTATIN 40 MG TABLET GT (22:04)
[2024-06-10] VITALS (9 sets, daily range): BP systolic 92–135; BP diastolic 29–71; PULSE 61–80; RESP 18–20; TEMP 36–36.6; O2SAT 95–100
[2024-06-10] MEDS: ALBUTEROL INHALER 200 PUFF/INH INHALER INH ×4 (00:06→19:14)
[2024-06-10] MEDS: IPRATROPIUM BROMIDE 200 PUFF/INH INHALER INH ×4 (00:06→19:14)
[2024-06-10] MEDS: MULTIVITAMIN W MINERALS 1 EACH TABLET GT (08:48)
[2024-06-10] MEDS: DEXLANSOPRAZOLE 30 MG PO (08:48)
[2024-06-10] MEDS: CYANOCOBALAMIN (VITAMIN B-12) 500 MCG TABLET 1000 MCG GT (08:48)
--- NOTE | 2024-06-10 13:35 | PD.SAPROG ---
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 (3) Chronic respiratory failure, unspecified whether with hypoxia or hypercapnia: Status: Chronic (4) Hyperlipidemia, unspecified: Status: Chronic (5) Tracheostomy status: Status: Chronic (6) Chronic atrial fibrillation: Status: Chronic SUBJECTIVE Fever:: none GI:: none Shortness of Breath:: none Pain:: none OBJECTIVE Most recent vital signs: Last Vital Signs Temp 96.7 F L 06/11/24 11:55 Pulse 68 06/11/24 11:55 Resp 17 06/11/24 11:55 BP 115/64 06/11/24 11:55 Pulse Ox 100 06/11/24 06:40 O2 Del Method Blow-by 06/11/24 00:00 O2 Flow Rate 6 06/11/24 06:40 FiO2 28 06/11/24 06:40 Neurological:: PVS Speech:: none Answers questions:: no Respiratory:: lungs clear Cardiovascular: RRR Abdomen: soft and nontender Extremities:: deformities (Spastic contractures of extremities) Decubitus:: none Tracheostomy:: to blow by Feeding per:: G tube Complaints:: none ASSESSMENT & PLAN Assessment: Pt remains essentially PVS for years. No new issues. Prognosis for independent living is poor. No pain/ discomfort. Tolerates feeding. Plan: Current treatment reviewed and continued
[2024-06-10] MEDS: INSULIN GLARGINE 100 UNIT/ML INSULN.PEN 30 UNIT SC (21:02)
[2024-06-10] MEDS: ATORVASTATIN 40 MG TABLET GT (21:53)
[2024-06-11] VITALS (9 sets, daily range): BP systolic 92–133; BP diastolic 48–75; PULSE 64–82; RESP 17–19; TEMP 35.9–36.5; O2SAT 96–100
[2024-06-11] MEDS: ALBUTEROL INHALER 200 PUFF/INH INHALER INH ×3 (00:27→18:30)
[2024-06-11] MEDS: IPRATROPIUM BROMIDE 200 PUFF/INH INHALER INH ×3 (00:27→18:30)
[2024-06-11] MEDS: CARVEDILOL 3.125 MG TABLET GT (08:26)
[2024-06-11] MEDS: MULTIVITAMIN W MINERALS 1 EACH TABLET GT (08:27)
[2024-06-11] MEDS: DEXLANSOPRAZOLE 30 MG PO (08:27)
[2024-06-11] MEDS: CYANOCOBALAMIN (VITAMIN B-12) 500 MCG TABLET 1000 MCG GT (08:27)
[2024-06-11] MEDS: ATORVASTATIN 40 MG TABLET GT (20:55)
[2024-06-11] MEDS: INSULIN GLARGINE 100 UNIT/ML INSULN.PEN 30 UNIT SC (20:55)
[2024-06-12] VITALS (8 sets, daily range): BP systolic 105–138; BP diastolic 62–72; PULSE 46–82; RESP 17–20; TEMP 36.1–36.4; O2SAT 97–98
[2024-06-12] MEDS: ALBUTEROL INHALER 200 PUFF/INH INHALER INH ×4 (01:25→19:40)
[2024-06-12] MEDS: IPRATROPIUM BROMIDE 200 PUFF/INH INHALER INH ×4 (01:25→19:40)
[2024-06-12] MEDS: CYANOCOBALAMIN (VITAMIN B-12) 500 MCG TABLET 1000 MCG GT (09:33)
[2024-06-12] MEDS: DEXLANSOPRAZOLE 30 MG PO (09:33)
[2024-06-12] MEDS: MULTIVITAMIN W MINERALS 1 EACH TABLET GT (09:33)
[2024-06-12] MEDS: ATORVASTATIN 40 MG TABLET GT (21:20)
[2024-06-12] MEDS: INSULIN GLARGINE 100 UNIT/ML INSULN.PEN 30 UNIT SC (21:20)
[2024-06-13] VITALS (12 sets, daily range): BP systolic 97–123; BP diastolic 56–68; PULSE 46–78; RESP 18–89; TEMP 36.1–36.4; O2SAT 97–100
[2024-06-13] MEDS: IPRATROPIUM BROMIDE 200 PUFF/INH INHALER INH ×4 (01:04→19:30)
[2024-06-13] MEDS: ALBUTEROL INHALER 200 PUFF/INH INHALER INH ×4 (01:04→19:30)
[2024-06-13] MEDS: CARVEDILOL 3.125 MG TABLET GT (08:53)
[2024-06-13] MEDS: DEXLANSOPRAZOLE 30 MG PO (08:54)
[2024-06-13] MEDS: MULTIVITAMIN W MINERALS 1 EACH TABLET GT (08:54)
[2024-06-13] MEDS: CYANOCOBALAMIN (VITAMIN B-12) 500 MCG TABLET 1000 MCG GT (08:54)
[2024-06-13] MEDS: ATORVASTATIN 40 MG TABLET GT (21:25)
[2024-06-13] MEDS: INSULIN GLARGINE 100 UNIT/ML INSULN.PEN 30 UNIT SC (21:25)
[2024-06-14] VITALS (7 sets, daily range): BP systolic 100–140; BP diastolic 64–78; PULSE 54–73; RESP 16–20; TEMP 36.1–36.2; O2SAT 88–100
[2024-06-14] MEDS: ALBUTEROL INHALER 200 PUFF/INH INHALER INH ×4 (00:20→18:32)
[2024-06-14] MEDS: IPRATROPIUM BROMIDE 200 PUFF/INH INHALER INH ×4 (00:20→18:32)
[2024-06-14] MEDS: CARVEDILOL 3.125 MG TABLET GT (08:57)
[2024-06-14] MEDS: CYANOCOBALAMIN (VITAMIN B-12) 500 MCG TABLET 1000 MCG GT (08:57)
[2024-06-14] MEDS: DEXLANSOPRAZOLE 30 MG PO (08:58)
[2024-06-14] MEDS: MULTIVITAMIN W MINERALS 1 EACH TABLET GT (08:58)
[2024-06-14] MEDS: ATORVASTATIN 40 MG TABLET GT (20:28)
[2024-06-14] MEDS: INSULIN GLARGINE 100 UNIT/ML INSULN.PEN 30 UNIT SC (21:00)
--- NOTE | 2024-06-14 22:49 | PD.SAPROG ---
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 (3) Chronic respiratory failure, unspecified whether with hypoxia or hypercapnia: Status: Chronic (4) Hyperlipidemia, unspecified: Status: Chronic (5) Tracheostomy status: Status: Chronic (6) Chronic atrial fibrillation: Status: Chronic SUBJECTIVE Fever:: none GI:: none Shortness of Breath:: none Pain:: none OBJECTIVE Most recent vital signs: Last Vital Signs Temp 97.0 F 06/14/24 17:57 Pulse 54 L 06/14/24 17:57 Resp 19 06/14/24 17:57 BP 100/64 06/14/24 17:57 Pulse Ox 100 06/14/24 17:57 O2 Del Method Blow-by 06/14/24 17:57 O2 Flow Rate 6 06/14/24 13:00 FiO2 28 06/14/24 13:00 Neurological:: PVS Speech:: none Answers questions:: no Respiratory:: lungs clear Cardiovascular: RRR Abdomen: soft and nontender Extremities:: deformities (Spastic contractures of extremities) Decubitus:: none Tracheostomy:: to blow by Feeding per:: G tube Complaints:: none ASSESSMENT & PLAN Assessment: Pt remains essentially PVS for years. No new issues. Prognosis for independent living is poor. No pain/ discomfort. Tolerates feeding. Plan: Current treatment reviewed and continued
[2024-06-15] VITALS (7 sets, daily range): BP systolic 96–115; BP diastolic 61–69; PULSE 61–72; RESP 16–18; TEMP 36; O2SAT 95–98
[2024-06-15] MEDS: ALBUTEROL INHALER 200 PUFF/INH INHALER INH ×4 (00:32→19:42)
[2024-06-15] MEDS: IPRATROPIUM BROMIDE 200 PUFF/INH INHALER INH ×4 (00:32→19:42)
[2024-06-15] MEDS: CARVEDILOL 3.125 MG TABLET GT (08:41)
[2024-06-15] MEDS: CYANOCOBALAMIN (VITAMIN B-12) 500 MCG TABLET 1000 MCG GT (08:41)
[2024-06-15] MEDS: DEXLANSOPRAZOLE 30 MG PO (08:42)
[2024-06-15] MEDS: MULTIVITAMIN W MINERALS 1 EACH TABLET GT (08:43)
[2024-06-15] MEDS: ATORVASTATIN 40 MG TABLET GT (20:30)
[2024-06-15] MEDS: INSULIN GLARGINE 100 UNIT/ML INSULN.PEN 30 UNIT SC (21:02)
[2024-06-16] VITALS (9 sets, daily range): BP systolic 103–130; BP diastolic 67–81; PULSE 56–85; RESP 16–20; TEMP 36.1–36.9; O2SAT 95–98
[2024-06-16] MEDS: IPRATROPIUM BROMIDE 200 PUFF/INH INHALER INH ×4 (00:32→18:52)
[2024-06-16] MEDS: ALBUTEROL INHALER 200 PUFF/INH INHALER INH ×4 (00:32→18:52)
[2024-06-16] MEDS: CARVEDILOL 3.125 MG TABLET GT (09:02)
[2024-06-16] MEDS: MULTIVITAMIN W MINERALS 1 EACH TABLET GT (09:04)
[2024-06-16] MEDS: CYANOCOBALAMIN (VITAMIN B-12) 500 MCG TABLET 1000 MCG GT (09:04)
[2024-06-16] MEDS: DEXLANSOPRAZOLE 30 MG PO (09:04)
--- NOTE | 2024-06-16 15:29 | PC.SS ---
Room visit: Resident is laying in bed with head of the bed elevated with call light properly placed with no signs of distress. Resident remains on blow by with trach in place and GT for medication and nutrition. He will remain in current care as he has no changes in care or condition. This SSD will continue to make contact with resident and monitor for changes in mood and behavior.
[2024-06-16] MEDS: ATORVASTATIN 40 MG TABLET GT (20:40)
[2024-06-16] MEDS: INSULIN GLARGINE 100 UNIT/ML INSULN.PEN 30 UNIT SC (21:10)
[2024-06-17] VITALS (9 sets, daily range): BP systolic 116–138; BP diastolic 62–77; PULSE 53–76; RESP 16–20; TEMP 36–36.6; O2SAT 96–99
[2024-06-17] MEDS: ALBUTEROL INHALER 200 PUFF/INH INHALER INH ×4 (01:07→19:38)
[2024-06-17] MEDS: IPRATROPIUM BROMIDE 200 PUFF/INH INHALER INH ×4 (01:07→19:38)
[2024-06-17] MEDS: CYANOCOBALAMIN (VITAMIN B-12) 500 MCG TABLET 1000 MCG GT (08:25)
[2024-06-17] MEDS: MULTIVITAMIN W MINERALS 1 EACH TABLET GT (08:25)
[2024-06-17] MEDS: DEXLANSOPRAZOLE 30 MG PO (08:25)
[2024-06-17] MEDS: CARVEDILOL 3.125 MG TABLET GT (08:25)
[2024-06-17] MEDS: INSULIN GLARGINE 100 UNIT/ML INSULN.PEN 30 UNIT SC (20:04)
[2024-06-17] MEDS: ATORVASTATIN 40 MG TABLET GT (20:04)
[2024-06-18] VITALS (9 sets, daily range): BP systolic 121–131; BP diastolic 51–78; PULSE 58–78; RESP 16–20; TEMP 35.8–36.2; O2SAT 97–100
[2024-06-18] MEDS: IPRATROPIUM BROMIDE 200 PUFF/INH INHALER INH ×4 (01:11→18:44)
[2024-06-18] MEDS: ALBUTEROL INHALER 200 PUFF/INH INHALER INH ×4 (01:11→18:44)
[2024-06-18] MEDS: CYANOCOBALAMIN (VITAMIN B-12) 500 MCG TABLET 1000 MCG GT (08:34)
[2024-06-18] MEDS: DEXLANSOPRAZOLE 30 MG PO (08:34)
[2024-06-18] MEDS: CARVEDILOL 3.125 MG TABLET GT (08:34)
[2024-06-18] MEDS: MULTIVITAMIN W MINERALS 1 EACH TABLET GT (08:34)
--- NOTE | 2024-06-18 16:48 | PD.SAPROG ---
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 (3) Chronic respiratory failure, unspecified whether with hypoxia or hypercapnia: Status: Chronic (4) Hyperlipidemia, unspecified: Status: Chronic (5) Tracheostomy status: Status: Chronic (6) Chronic atrial fibrillation: Status: Chronic SUBJECTIVE Fever:: none GI:: none Shortness of Breath:: none Pain:: none OBJECTIVE Most recent vital signs: Last Vital Signs Temp 97.0 F 06/18/24 12:00 Pulse 66 06/18/24 12:16 Resp 18 06/18/24 12:16 BP 123/78 06/18/24 12:00 Pulse Ox 99 06/18/24 12:16 O2 Del Method Blow-by 06/17/24 18:00 O2 Flow Rate 6 06/18/24 12:16 FiO2 28 06/18/24 12:16 Neurological:: PVS Speech:: none Answers questions:: no Respiratory:: lungs clear Cardiovascular: irregular Abdomen: soft and nontender Extremities:: deformities (Spastic contractures of extremities) Decubitus:: none Tracheostomy:: to blow by Feeding per:: G tube Complaints:: none ASSESSMENT & PLAN Assessment: Pt remains essentially PVS for years. No new issues. Prognosis for independent living is poor. No pain/ discomfort. Tolerates feeding. Plan: Current treatment reviewed and continued
[2024-06-18] MEDS: ATORVASTATIN 40 MG TABLET GT (20:25)
[2024-06-18] MEDS: INSULIN GLARGINE 100 UNIT/ML INSULN.PEN 30 UNIT SC (21:18)
[2024-06-19] VITALS (9 sets, daily range): BP systolic 95–139; BP diastolic 56–84; PULSE 46–86; RESP 16–18; TEMP 36.1–36.4; O2SAT 96–100
[2024-06-19] MEDS: IPRATROPIUM BROMIDE 200 PUFF/INH INHALER INH ×4 (02:13→18:21)
[2024-06-19] MEDS: ALBUTEROL INHALER 200 PUFF/INH INHALER INH ×4 (02:13→18:21)
[2024-06-19] MEDS: CARVEDILOL 3.125 MG TABLET GT (08:47)
[2024-06-19] MEDS: CYANOCOBALAMIN (VITAMIN B-12) 500 MCG TABLET 1000 MCG GT (08:47)
[2024-06-19] MEDS: MULTIVITAMIN W MINERALS 1 EACH TABLET GT (08:48)
[2024-06-19] MEDS: DEXLANSOPRAZOLE 30 MG PO (08:48)
--- NOTE | 2024-06-19 15:31 | PC.SS ---
Resident seen by securities vault supervisor/Dr. Smith for routine toe nail trim, no new orders or recommendation to continue current care.
--- NOTE | 2024-06-19 16:27 | PC.SS ---
Resident seen by [facility] Dr. Krueger for annual optometry consultation. Resident tolerated treatment well, no new orders or recommendations, resident will continue current care.
[2024-06-19] MEDS: ATORVASTATIN 40 MG TABLET GT (20:32)
[2024-06-19] MEDS: INSULIN GLARGINE 100 UNIT/ML INSULN.PEN 30 UNIT SC (21:00)
[2024-06-20] VITALS (9 sets, daily range): BP systolic 110–148; BP diastolic 65–79; PULSE 60–84; RESP 16–20; TEMP 36.2–36.4; O2SAT 96–100
[2024-06-20] MEDS: IPRATROPIUM BROMIDE 200 PUFF/INH INHALER INH ×4 (01:13→19:29)
[2024-06-20] MEDS: ALBUTEROL INHALER 200 PUFF/INH INHALER INH ×4 (01:13→19:29)
[2024-06-20] MEDS: CYANOCOBALAMIN (VITAMIN B-12) 500 MCG TABLET 1000 MCG GT (09:26)
[2024-06-20] MEDS: CARVEDILOL 3.125 MG TABLET GT (09:26)
[2024-06-20] MEDS: DEXLANSOPRAZOLE 30 MG PO (09:27)
[2024-06-20] MEDS: MULTIVITAMIN W MINERALS 1 EACH TABLET GT (09:27)
[2024-06-20] MEDS: ATORVASTATIN 40 MG TABLET GT (20:05)
[2024-06-20] MEDS: INSULIN GLARGINE 100 UNIT/ML INSULN.PEN 30 UNIT SC (21:00)
[2024-06-21] VITALS (9 sets, daily range): BP systolic 96–140; BP diastolic 51–74; PULSE 44–78; RESP 18–20; TEMP 36.1–36.2; O2SAT 95–99
[2024-06-21] MEDS: IPRATROPIUM BROMIDE 200 PUFF/INH INHALER INH ×4 (00:37→18:36)
[2024-06-21] MEDS: ALBUTEROL INHALER 200 PUFF/INH INHALER INH ×4 (00:37→18:36)
[2024-06-21] MEDS: CARVEDILOL 3.125 MG TABLET GT (08:53)
[2024-06-21] MEDS: MULTIVITAMIN W MINERALS 1 EACH TABLET GT (08:54)
[2024-06-21] MEDS: CYANOCOBALAMIN (VITAMIN B-12) 500 MCG TABLET 1000 MCG GT (08:54)
[2024-06-21] MEDS: DEXLANSOPRAZOLE 30 MG PO (08:54)
[2024-06-21] MEDS: INSULIN GLARGINE 100 UNIT/ML INSULN.PEN 30 UNIT SC (21:00)
[2024-06-21] MEDS: ATORVASTATIN 40 MG TABLET GT (21:40)
[2024-06-22] VITALS (9 sets, daily range): BP systolic 102–121; BP diastolic 49–74; PULSE 51–80; RESP 18–22; TEMP 36.2–36.4; O2SAT 92–100
[2024-06-22] MEDS: IPRATROPIUM BROMIDE 200 PUFF/INH INHALER INH ×4 (00:55→18:40)
[2024-06-22] MEDS: ALBUTEROL INHALER 200 PUFF/INH INHALER INH ×4 (00:55→18:40)
[2024-06-22] MEDS: MULTIVITAMIN W MINERALS 1 EACH TABLET GT (08:26)
[2024-06-22] MEDS: DEXLANSOPRAZOLE 30 MG PO (08:26)
[2024-06-22] MEDS: CYANOCOBALAMIN (VITAMIN B-12) 500 MCG TABLET 1000 MCG GT (08:26)
--- NOTE | 2024-06-22 17:51 | PD.SAPROG ---
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 (3) Chronic respiratory failure, unspecified whether with hypoxia or hypercapnia: Status: Chronic (4) Hyperlipidemia, unspecified: Status: Chronic (5) Tracheostomy status: Status: Chronic (6) Chronic atrial fibrillation: Status: Chronic SUBJECTIVE Fever:: none GI:: none Shortness of Breath:: none Pain:: none OBJECTIVE Most recent vital signs: Last Vital Signs Temp 97.6 F 06/22/24 17:42 Pulse 80 06/22/24 17:42 Resp 20 06/22/24 17:42 BP 121/51 L 06/22/24 17:42 Pulse Ox 98 06/22/24 17:42 O2 Del Method Blow-by 06/22/24 17:42 O2 Flow Rate 6 06/22/24 12:40 FiO2 28 06/22/24 12:40 Neurological:: PVS Speech:: none Answers questions:: no Respiratory:: lungs clear Cardiovascular: irregular Abdomen: soft and nontender Extremities:: deformities (Spastic contractures of extremities) Decubitus:: none Tracheostomy:: to blow by Feeding per:: G tube Complaints:: none ASSESSMENT & PLAN Assessment: Pt remains essentially PVS for years. No new issues. Prognosis for independent living is poor. No pain/ discomfort. Tolerates feeding. Plan: Current treatment reviewed and continued
[2024-06-22] MEDS: ATORVASTATIN 40 MG TABLET GT (21:22)
[2024-06-22] MEDS: INSULIN GLARGINE 100 UNIT/ML INSULN.PEN 30 UNIT SC (22:21)
[2024-06-23] VITALS (10 sets, daily range): BP systolic 98–121; BP diastolic 57–63; PULSE 54–88; RESP 16–21; TEMP 36.2–37.5; O2SAT 96–99
[2024-06-23] MEDS: ALBUTEROL INHALER 200 PUFF/INH INHALER INH ×4 (00:44→18:48)
[2024-06-23] MEDS: IPRATROPIUM BROMIDE 200 PUFF/INH INHALER INH ×4 (00:44→18:48)
[2024-06-23] MEDS: CYANOCOBALAMIN (VITAMIN B-12) 500 MCG TABLET 1000 MCG GT (09:52)
[2024-06-23] MEDS: MULTIVITAMIN W MINERALS 1 EACH TABLET GT (09:54)
[2024-06-23] MEDS: DEXLANSOPRAZOLE 30 MG PO (09:54)
[2024-06-23] MEDS: ATORVASTATIN 40 MG TABLET GT (21:23)
[2024-06-23] MEDS: INSULIN GLARGINE 100 UNIT/ML INSULN.PEN 30 UNIT SC (21:28)
[2024-06-24] VITALS (9 sets, daily range): BP systolic 102–110; BP diastolic 54–66; PULSE 59–98; RESP 16–18; TEMP 36–36.4; O2SAT 92–98
[2024-06-24] MEDS: IPRATROPIUM BROMIDE 200 PUFF/INH INHALER INH ×4 (00:40→19:00)
[2024-06-24] MEDS: ALBUTEROL INHALER 200 PUFF/INH INHALER INH ×4 (00:40→19:00)
[2024-06-24] MEDS: MULTIVITAMIN W MINERALS 1 EACH TABLET GT (09:18)
[2024-06-24] MEDS: DEXLANSOPRAZOLE 30 MG PO (09:18)
[2024-06-24] MEDS: CYANOCOBALAMIN (VITAMIN B-12) 500 MCG TABLET 1000 MCG GT (09:18)
[2024-06-24] MEDS: INSULIN GLARGINE 100 UNIT/ML INSULN.PEN 30 UNIT SC (20:56)
[2024-06-24] MEDS: ATORVASTATIN 40 MG TABLET GT (20:56)
[2024-06-25] VITALS (9 sets, daily range): BP systolic 95–124; BP diastolic 49–80; PULSE 67–87; RESP 16–24; TEMP 36.1–36.6; O2SAT 95–99
[2024-06-25] MEDS: ALBUTEROL INHALER 200 PUFF/INH INHALER INH ×4 (00:15→19:00)
[2024-06-25] MEDS: IPRATROPIUM BROMIDE 200 PUFF/INH INHALER INH ×4 (00:15→19:00)
[2024-06-25] MEDS: CARVEDILOL 3.125 MG TABLET GT (09:23)
[2024-06-25] MEDS: MULTIVITAMIN W MINERALS 1 EACH TABLET GT (09:25)
[2024-06-25] MEDS: CYANOCOBALAMIN (VITAMIN B-12) 500 MCG TABLET 1000 MCG GT (09:25)
[2024-06-25] MEDS: DEXLANSOPRAZOLE 30 MG PO (09:25)
[2024-06-25] MEDS: DEXTROMETHORPHAN GT (09:39)
[2024-06-25] MEDS: PHENYLEPHRINE GT (09:39)
[2024-06-25] MEDS: GUAIFENESIN GT (09:39)
[2024-06-25] MEDS: ATORVASTATIN 40 MG TABLET GT (20:57)
[2024-06-25] MEDS: INSULIN GLARGINE 100 UNIT/ML INSULN.PEN 30 UNIT SC (21:01)
[2024-06-26] VITALS (9 sets, daily range): BP systolic 108–136; BP diastolic 62–81; PULSE 68–87; RESP 18–22; TEMP 36–36.7; O2SAT 95–98
[2024-06-26] MEDS: MAGNESIUM HYDROXIDE 30 ML ORAL SUSP ML GT (00:10)
[2024-06-26] MEDS: IPRATROPIUM BROMIDE 200 PUFF/INH INHALER INH ×4 (00:15→19:00)
[2024-06-26] MEDS: ALBUTEROL INHALER 200 PUFF/INH INHALER INH ×4 (00:15→19:00)
[2024-06-26] MEDS: CARVEDILOL 3.125 MG TABLET GT (08:30)
[2024-06-26] MEDS: DEXLANSOPRAZOLE 30 MG PO (08:30)
[2024-06-26] MEDS: MULTIVITAMIN W MINERALS 1 EACH TABLET GT (08:30)
[2024-06-26] MEDS: CYANOCOBALAMIN (VITAMIN B-12) 500 MCG TABLET 1000 MCG GT (08:30)
[2024-06-26] MEDS: INSULIN GLARGINE 100 UNIT/ML INSULN.PEN 30 UNIT SC (20:31)
[2024-06-26] MEDS: ATORVASTATIN 40 MG TABLET GT (20:31)
--- NOTE | 2024-06-26 21:54 | PD.SAPROG ---
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 (3) Chronic respiratory failure, unspecified whether with hypoxia or hypercapnia: Status: Chronic (4) Hyperlipidemia, unspecified: Status: Chronic (5) Tracheostomy status: Status: Chronic (6) Chronic atrial fibrillation: Status: Chronic SUBJECTIVE Fever:: none GI:: none Shortness of Breath:: none Pain:: none OBJECTIVE Most recent vital signs: Last Vital Signs Temp 98.0 F 06/26/24 18:00 Pulse 76 06/26/24 18:00 Resp 18 06/26/24 18:00 BP 108/70 06/26/24 18:00 Pulse Ox 95 06/26/24 18:00 O2 Del Method Blow-by 06/26/24 18:00 O2 Flow Rate 6 06/26/24 11:45 FiO2 28 06/26/24 11:45 Neurological:: PVS Speech:: none Answers questions:: no Respiratory:: lungs clear Cardiovascular: irregular Abdomen: soft and nontender Extremities:: deformities (Spastic contractures of extremities) Decubitus:: none Tracheostomy:: to blow by Feeding per:: G tube Complaints:: none ASSESSMENT & PLAN Assessment: Pt remains essentially PVS for years. No new issues. Prognosis for independent living is poor. No pain/ discomfort. Tolerates feeding. Plan: Current treatment reviewed and continued
[2024-06-27] VITALS (9 sets, daily range): BP systolic 102–154; BP diastolic 48–81; PULSE 50–72; RESP 17–20; TEMP 36.1–36.5; O2SAT 95–98
[2024-06-27] MEDS: IPRATROPIUM BROMIDE 200 PUFF/INH INHALER INH ×4 (00:20→19:05)
[2024-06-27] MEDS: ALBUTEROL INHALER 200 PUFF/INH INHALER INH ×4 (00:20→19:05)
[2024-06-27] MEDS: CARVEDILOL 3.125 MG TABLET GT (09:08)
[2024-06-27] MEDS: CYANOCOBALAMIN (VITAMIN B-12) 500 MCG TABLET 1000 MCG GT (09:09)
[2024-06-27] MEDS: MULTIVITAMIN W MINERALS 1 EACH TABLET GT (09:09)
[2024-06-27] MEDS: DEXLANSOPRAZOLE 30 MG PO (09:09)
[2024-06-27] MEDS: INSULIN GLARGINE 100 UNIT/ML INSULN.PEN 30 UNIT SC (21:03)
[2024-06-27] MEDS: ATORVASTATIN 40 MG TABLET GT (21:03)
[2024-06-28] VITALS (10 sets, daily range): BP systolic 106–139; BP diastolic 60–85; PULSE 53–74; RESP 16–20; TEMP 36.1–36.3; O2SAT 95–98
[2024-06-28] MEDS: ALBUTEROL INHALER 200 PUFF/INH INHALER INH ×4 (00:20→19:05)
[2024-06-28] MEDS: IPRATROPIUM BROMIDE 200 PUFF/INH INHALER INH ×3 (00:20→19:05)
[2024-06-28] MEDS: CYANOCOBALAMIN (VITAMIN B-12) 500 MCG TABLET 1000 MCG GT (08:25)
[2024-06-28] MEDS: MULTIVITAMIN W MINERALS 1 EACH TABLET GT (09:25)
[2024-06-28] MEDS: CARVEDILOL 3.125 MG TABLET GT (09:25)
[2024-06-28] MEDS: DEXLANSOPRAZOLE 30 MG PO (09:25)
--- NOTE | 2024-06-28 15:00 | PD.SAPROG ---
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 (3) Chronic respiratory failure, unspecified whether with hypoxia or hypercapnia: Status: Chronic (4) Hyperlipidemia, unspecified: Status: Chronic (5) Tracheostomy status: Status: Chronic (6) Chronic atrial fibrillation: Status: Chronic SUBJECTIVE Fever:: none GI:: none Shortness of Breath:: none Pain:: none OBJECTIVE Most recent vital signs: Last Vital Signs Temp 97.1 F 07/02/24 12:00 Pulse 70 07/02/24 12:30 Resp 18 07/02/24 12:30 BP 104/68 07/02/24 12:00 Pulse Ox 98 07/02/24 12:30 O2 Del Method Blow-by 07/02/24 12:00 O2 Flow Rate 6 07/02/24 12:30 FiO2 28 07/02/24 12:30 Neurological:: PVS Speech:: none Answers questions:: no Respiratory:: lungs clear Cardiovascular: irregular Abdomen: soft and nontender Extremities:: deformities (Spastic contractures of extremities) Decubitus:: none Tracheostomy:: to blow by Feeding per:: G tube Complaints:: none ASSESSMENT & PLAN Assessment: Pt remains essentially PVS for years. No new issues. Prognosis for independent living is poor. No pain/ discomfort. Tolerates feeding. Plan: Current treatment reviewed and continued
[2024-06-28] MEDS: ATORVASTATIN 40 MG TABLET GT (20:15)
[2024-06-28] MEDS: INSULIN GLARGINE 100 UNIT/ML INSULN.PEN 30 UNIT SC (20:55)
[2024-06-29] VITALS (9 sets, daily range): BP systolic 99–135; BP diastolic 53–87; PULSE 56–77; RESP 17–22; TEMP 36.1–36.4; O2SAT 95–98
[2024-06-29] MEDS: IPRATROPIUM BROMIDE 200 PUFF/INH INHALER INH ×4 (01:15→19:05)
[2024-06-29] MEDS: ALBUTEROL INHALER 200 PUFF/INH INHALER INH ×4 (01:15→19:05)
[2024-06-29] MEDS: MULTIVITAMIN W MINERALS 1 EACH TABLET GT (08:20)
[2024-06-29] MEDS: DEXLANSOPRAZOLE 30 MG PO (08:20)
[2024-06-29] MEDS: CYANOCOBALAMIN (VITAMIN B-12) 500 MCG TABLET 1000 MCG GT (08:20)
[2024-06-29] MEDS: ATORVASTATIN 40 MG TABLET GT (20:45)
[2024-06-29] MEDS: INSULIN GLARGINE 100 UNIT/ML INSULN.PEN 30 UNIT SC (23:19)
[2024-06-30] VITALS (9 sets, daily range): BP systolic 100–135; BP diastolic 47–75; PULSE 60–87; RESP 17–24; TEMP 36–36.6; O2SAT 97–99
[2024-06-30] MEDS: IPRATROPIUM BROMIDE 200 PUFF/INH INHALER INH ×4 (00:25→18:45)
[2024-06-30] MEDS: ALBUTEROL INHALER 200 PUFF/INH INHALER INH ×4 (00:25→18:45)
[2024-06-30] MEDS: CYANOCOBALAMIN (VITAMIN B-12) 500 MCG TABLET 1000 MCG GT (08:56)
[2024-06-30] MEDS: DEXLANSOPRAZOLE 30 MG PO (08:56)
[2024-06-30] MEDS: CARVEDILOL 3.125 MG TABLET GT (08:56)
[2024-06-30] MEDS: MULTIVITAMIN W MINERALS 1 EACH TABLET GT (08:57)
--- NOTE | 2024-06-30 18:42 | PC.NURSE ---
Patient is nonverbal at this time and all needs are anticipated. There have not been any complaints from the patient. The patient is stable with no changes in mood or behavior. The patient appears pleasant, with call light within reach. TV is on for the patient . Will continue to monitor patient for any behavior changes.
[2024-06-30] MEDS: ATORVASTATIN 40 MG TABLET GT (20:45)
[2024-06-30] MEDS: INSULIN GLARGINE 100 UNIT/ML INSULN.PEN 30 UNIT SC (21:00)
[2024-06-30] MEDS: MAGNESIUM HYDROXIDE 30 ML ORAL SUSP ML GT (23:00)
[2024-07-01] VITALS (9 sets, daily range): BP systolic 95–127; BP diastolic 58–66; PULSE 58–79; RESP 16–20; TEMP 36.1–36.5; O2SAT 97–100
[2024-07-01] MEDS: IPRATROPIUM BROMIDE 200 PUFF/INH INHALER INH ×4 (01:11→18:57)
[2024-07-01] MEDS: ALBUTEROL INHALER 200 PUFF/INH INHALER INH ×4 (01:11→18:57)
--- NOTE | 2024-07-01 06:46 | PC.NURSE ---
Marek slept most of the night. There have not been any complaints from the patient. The patient is stable with no changes in mood or behavior. The patient appears pleasant, with call light within reach. Will continue to monitor patient for any behavior changes.
[2024-07-01] MEDS: CARVEDILOL 3.125 MG TABLET GT (08:53)
[2024-07-01] MEDS: MULTIVITAMIN W MINERALS 1 EACH TABLET GT (08:54)
[2024-07-01] MEDS: DEXLANSOPRAZOLE 30 MG PO (08:54)
[2024-07-01] MEDS: CYANOCOBALAMIN (VITAMIN B-12) 500 MCG TABLET 1000 MCG GT (08:54)
[2024-07-01] MEDS: BISACODYL 10 MG SUPP.RECT PR (11:34)
[2024-07-01] MEDS: INSULIN GLARGINE 100 UNIT/ML INSULN.PEN 30 UNIT SC (21:00)
[2024-07-01] MEDS: ATORVASTATIN 40 MG TABLET GT (21:17)
[2024-07-02] VITALS (10 sets, daily range): BP systolic 98–121; BP diastolic 54–68; PULSE 61–92; RESP 16–22; TEMP 36.1–36.4; O2SAT 95–100
[2024-07-02] MEDS: IPRATROPIUM BROMIDE 200 PUFF/INH INHALER INH ×4 (00:45→19:18)
[2024-07-02] MEDS: ALBUTEROL INHALER 200 PUFF/INH INHALER INH ×4 (00:45→19:18)
[2024-07-02] MEDS: CARVEDILOL 3.125 MG TABLET GT (08:21)
[2024-07-02] MEDS: CYANOCOBALAMIN (VITAMIN B-12) 500 MCG TABLET 1000 MCG GT (08:21)
[2024-07-02] MEDS: DEXLANSOPRAZOLE 30 MG PO (08:21)
[2024-07-02] MEDS: ACETAMINOPHEN 325 MG TABLET 650 MG GT (08:21)
[2024-07-02] MEDS: MULTIVITAMIN W MINERALS 1 EACH TABLET GT (08:21)
--- NOTE | 2024-07-02 19:16 | PC.NURSE ---
patient on monitoring, psychosocially stable no apparent distress noted.
[2024-07-02] MEDS: ATORVASTATIN 40 MG TABLET GT (20:24)
[2024-07-02] MEDS: INSULIN GLARGINE 100 UNIT/ML INSULN.PEN 30 UNIT SC (21:33)
[2024-07-03] VITALS (8 sets, daily range): BP systolic 90–120; BP diastolic 56–63; PULSE 63–92; RESP 16–20; TEMP 36.1–36.6; O2SAT 96–100
[2024-07-03] MEDS: ALBUTEROL INHALER 200 PUFF/INH INHALER INH ×4 (00:10→18:54)
[2024-07-03] MEDS: IPRATROPIUM BROMIDE 200 PUFF/INH INHALER INH ×4 (00:10→18:54)
--- NOTE | 2024-07-03 07:09 | PC.NURSE ---
Psychosocial monitoring ongoing. No change in moods or behaviors noted.
[2024-07-03] MEDS: MULTIVITAMIN W MINERALS 1 EACH TABLET GT (09:01)
[2024-07-03] MEDS: CYANOCOBALAMIN (VITAMIN B-12) 500 MCG TABLET 1000 MCG GT (09:02)
[2024-07-03] MEDS: CARVEDILOL 3.125 MG TABLET GT (09:02)
[2024-07-03] MEDS: DEXLANSOPRAZOLE 30 MG PO (09:02)
--- NOTE | 2024-07-03 14:20 | PD.SAPROG ---
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 (3) Chronic respiratory failure, unspecified whether with hypoxia or hypercapnia: Status: Chronic (4) Hyperlipidemia, unspecified: Status: Chronic (5) Tracheostomy status: Status: Chronic (6) Chronic atrial fibrillation: Status: Chronic SUBJECTIVE Fever:: none GI:: none Shortness of Breath:: none Pain:: none OBJECTIVE Most recent vital signs: Last Vital Signs Temp 97.1 F 07/07/24 18:00 Pulse 60 07/07/24 18:00 Resp 20 07/07/24 18:00 BP 101/59 L 07/07/24 18:00 Pulse Ox 97 07/07/24 12:40 O2 Del Method Blow-by 07/07/24 05:45 O2 Flow Rate 6 07/07/24 12:40 FiO2 28 07/07/24 12:40 Neurological:: PVS Speech:: none Answers questions:: no Respiratory:: lungs clear Cardiovascular: irregular Abdomen: soft and nontender Extremities:: deformities (Spastic contractures of extremities) Decubitus:: none Tracheostomy:: to blow by Feeding per:: G tube Complaints:: none ASSESSMENT & PLAN Assessment: Pt remains essentially PVS for years. No new issues. Prognosis for independent living is poor. No pain/ discomfort. Tolerates feeding. Plan: Current treatment reviewed and continued
[2024-07-03] MEDS: ATORVASTATIN 40 MG TABLET GT (20:54)
[2024-07-03] MEDS: INSULIN GLARGINE 100 UNIT/ML INSULN.PEN 30 UNIT SC (20:55)
[2024-07-04] VITALS (9 sets, daily range): BP systolic 104–134; BP diastolic 67–72; PULSE 44–80; RESP 16–20; TEMP 36.1–36.4; O2SAT 96–100
[2024-07-04] MEDS: IPRATROPIUM BROMIDE 200 PUFF/INH INHALER INH ×4 (01:11→18:35)
[2024-07-04] MEDS: ALBUTEROL INHALER 200 PUFF/INH INHALER INH ×4 (01:11→18:35)
[2024-07-04] MEDS: MULTIVITAMIN W MINERALS 1 EACH TABLET GT (08:29)
[2024-07-04] MEDS: CARVEDILOL 3.125 MG TABLET GT (08:30)
[2024-07-04] MEDS: CYANOCOBALAMIN (VITAMIN B-12) 500 MCG TABLET 1000 MCG GT (08:30)
[2024-07-04] MEDS: DEXLANSOPRAZOLE 30 MG PO (08:30)
[2024-07-04] MEDS: ATORVASTATIN 40 MG TABLET GT (20:49)
[2024-07-04] MEDS: INSULIN GLARGINE 100 UNIT/ML INSULN.PEN 30 UNIT SC (20:50)
[2024-07-05] VITALS (9 sets, daily range): BP systolic 94–123; BP diastolic 41–64; PULSE 54–81; RESP 16–20; TEMP 36–36.4; O2SAT 96–100
[2024-07-05] MEDS: IPRATROPIUM BROMIDE 200 PUFF/INH INHALER INH ×4 (00:39→22:15)
[2024-07-05] MEDS: ALBUTEROL INHALER 200 PUFF/INH INHALER INH ×4 (00:39→22:15)
[2024-07-05] MEDS: CARVEDILOL 3.125 MG TABLET GT (08:34)
[2024-07-05] MEDS: MULTIVITAMIN W MINERALS 1 EACH TABLET GT (08:34)
[2024-07-05] MEDS: CYANOCOBALAMIN (VITAMIN B-12) 500 MCG TABLET 1000 MCG GT (08:34)
[2024-07-05] MEDS: DEXLANSOPRAZOLE 30 MG PO (08:34)
[2024-07-05] MEDS: ATORVASTATIN 40 MG TABLET GT (20:13)
[2024-07-05] MEDS: INSULIN GLARGINE 100 UNIT/ML INSULN.PEN 30 UNIT SC (20:14)
[2024-07-06] VITALS (7 sets, daily range): BP systolic 96–106; BP diastolic 51–69; PULSE 59–84; RESP 16–22; TEMP 36–36.1; O2SAT 95–99
[2024-07-06] MEDS: ALBUTEROL INHALER 200 PUFF/INH INHALER INH ×4 (01:45→19:40)
[2024-07-06] MEDS: IPRATROPIUM BROMIDE 200 PUFF/INH INHALER INH ×4 (01:45→19:40)
[2024-07-06] MEDS: CARVEDILOL 3.125 MG TABLET GT (08:31)
[2024-07-06] MEDS: CYANOCOBALAMIN (VITAMIN B-12) 500 MCG TABLET 1000 MCG GT (08:32)
[2024-07-06] MEDS: DEXLANSOPRAZOLE 30 MG PO (08:33)
[2024-07-06] MEDS: MULTIVITAMIN W MINERALS 1 EACH TABLET GT (08:33)
[2024-07-06] MEDS: ATORVASTATIN 40 MG TABLET GT (21:12)
[2024-07-06] MEDS: INSULIN GLARGINE 100 UNIT/ML INSULN.PEN 30 UNIT SC (21:17)
[2024-07-07] VITALS (9 sets, daily range): BP systolic 97–108; BP diastolic 39–66; PULSE 60–90; RESP 17–20; TEMP 36.2–36.3; O2SAT 96–98
[2024-07-07] MEDS: IPRATROPIUM BROMIDE 200 PUFF/INH INHALER INH ×3 (00:30→19:05)
[2024-07-07] MEDS: ALBUTEROL INHALER 200 PUFF/INH INHALER INH ×3 (00:30→19:05)
[2024-07-07] MEDS: CARVEDILOL 3.125 MG TABLET GT (08:17)
[2024-07-07] MEDS: CYANOCOBALAMIN (VITAMIN B-12) 500 MCG TABLET 1000 MCG GT (08:18)
[2024-07-07] MEDS: MULTIVITAMIN W MINERALS 1 EACH TABLET GT (08:19)
[2024-07-07] MEDS: DEXLANSOPRAZOLE 30 MG PO (08:19)
[2024-07-07] MEDS: GUAIFENESIN GT (14:20)
[2024-07-07] MEDS: ACETAMINOPHEN 325 MG TABLET 650 MG GT (14:20)
[2024-07-07] MEDS: PHENYLEPHRINE GT (14:20)
[2024-07-07] MEDS: DEXTROMETHORPHAN GT (14:20)
[2024-07-07] MEDS: ATORVASTATIN 40 MG TABLET GT (21:16)
[2024-07-07] MEDS: INSULIN GLARGINE 100 UNIT/ML INSULN.PEN 30 UNIT SC (21:26)
[2024-07-08] VITALS (8 sets, daily range): BP systolic 94–135; BP diastolic 52–85; PULSE 63–81; RESP 18–24; TEMP 36–36.3; O2SAT 89–98
[2024-07-08] MEDS: ALBUTEROL INHALER 200 PUFF/INH INHALER INH ×4 (00:52→18:28)
[2024-07-08] MEDS: IPRATROPIUM BROMIDE 200 PUFF/INH INHALER INH ×4 (00:52→18:28)
[2024-07-08] MEDS: DEXLANSOPRAZOLE 30 MG PO (08:51)
[2024-07-08] MEDS: CARVEDILOL 3.125 MG TABLET GT (08:51)
[2024-07-08] MEDS: MULTIVITAMIN W MINERALS 1 EACH TABLET GT (08:51)
[2024-07-08] MEDS: CYANOCOBALAMIN (VITAMIN B-12) 500 MCG TABLET 1000 MCG GT (08:51)
[2024-07-08] MEDS: ATORVASTATIN 40 MG TABLET GT (21:27)
[2024-07-08] MEDS: INSULIN GLARGINE 100 UNIT/ML INSULN.PEN 30 UNIT SC (21:39)
[2024-07-09] VITALS (10 sets, daily range): BP systolic 95–142; BP diastolic 64–85; PULSE 64–84; RESP 17–24; TEMP 36.2–36.6; O2SAT 96–99
[2024-07-09] MEDS: IPRATROPIUM BROMIDE 200 PUFF/INH INHALER INH ×4 (01:12→19:35)
[2024-07-09] MEDS: ALBUTEROL INHALER 200 PUFF/INH INHALER INH ×4 (01:12→19:35)
[2024-07-09] MEDS: DEXLANSOPRAZOLE 30 MG PO (08:27)
[2024-07-09] MEDS: CYANOCOBALAMIN (VITAMIN B-12) 500 MCG TABLET 1000 MCG GT (08:27)
[2024-07-09] MEDS: MULTIVITAMIN W MINERALS 1 EACH TABLET GT (08:27)
[2024-07-09] MEDS: CARVEDILOL 3.125 MG TABLET GT (08:27)
[2024-07-09] MEDS: ATORVASTATIN 40 MG TABLET GT (21:13)
[2024-07-09] MEDS: INSULIN GLARGINE 100 UNIT/ML INSULN.PEN 30 UNIT SC (21:20)
[2024-07-10] VITALS (8 sets, daily range): BP systolic 125–130; BP diastolic 63–77; PULSE 57–75; RESP 16–20; TEMP 36.1–36.8; O2SAT 96–99
[2024-07-10] MEDS: IPRATROPIUM BROMIDE 200 PUFF/INH INHALER INH ×4 (00:35→18:10)
[2024-07-10] MEDS: ALBUTEROL INHALER 200 PUFF/INH INHALER INH ×4 (00:35→18:10)
[2024-07-10] MEDS: IPRATROPIUM/ALBUTEROL 3 ML AMPUL.NEB INH (07:14)
[2024-07-10] MEDS: CARVEDILOL 3.125 MG TABLET GT (08:29)
[2024-07-10] MEDS: ACETAMINOPHEN 325 MG TABLET 650 MG GT ×2 (08:29→21:17)
[2024-07-10] MEDS: MULTIVITAMIN W MINERALS 1 EACH TABLET GT (08:29)
[2024-07-10] MEDS: CYANOCOBALAMIN (VITAMIN B-12) 500 MCG TABLET 1000 MCG GT (08:29)
[2024-07-10] MEDS: DEXLANSOPRAZOLE 30 MG PO (08:29)
[2024-07-10] MEDS: ATORVASTATIN 40 MG TABLET GT (20:54)
[2024-07-10] MEDS: INSULIN GLARGINE 100 UNIT/ML INSULN.PEN 30 UNIT SC (20:54)
[2024-07-10] MEDS: PHENYLEPHRINE GT (21:17)
[2024-07-10] MEDS: DEXTROMETHORPHAN GT (21:17)
[2024-07-10] MEDS: GUAIFENESIN GT (21:17)
[2024-07-11] VITALS (10 sets, daily range): BP systolic 103–137; BP diastolic 67–78; PULSE 59–91; RESP 16–20; TEMP 36.1–36.3; O2SAT 97–99
[2024-07-11] MEDS: ALBUTEROL INHALER 200 PUFF/INH INHALER INH ×4 (00:42→19:00)
[2024-07-11] MEDS: IPRATROPIUM BROMIDE 200 PUFF/INH INHALER INH ×4 (00:42→19:00)
[2024-07-11] MEDS: MULTIVITAMIN W MINERALS 1 EACH TABLET GT (08:45)
[2024-07-11] MEDS: CYANOCOBALAMIN (VITAMIN B-12) 500 MCG TABLET 1000 MCG GT (08:46)
[2024-07-11] MEDS: CARVEDILOL 3.125 MG TABLET GT (08:46)
[2024-07-11] MEDS: DEXLANSOPRAZOLE 30 MG PO (08:46)
[2024-07-11] MEDS: INSULIN GLARGINE 100 UNIT/ML INSULN.PEN 30 UNIT SC (20:53)
[2024-07-11] MEDS: ATORVASTATIN 40 MG TABLET GT (20:54)
--- NOTE | 2024-07-11 21:37 | PD.SAPROG ---
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 (3) Chronic respiratory failure, unspecified whether with hypoxia or hypercapnia: Status: Chronic (4) Hyperlipidemia, unspecified: Status: Chronic (5) Tracheostomy status: Status: Chronic (6) Chronic atrial fibrillation: Status: Chronic SUBJECTIVE Fever:: none GI:: none Shortness of Breath:: none Pain:: none OBJECTIVE Most recent vital signs: Last Vital Signs Temp 97.1 F 07/11/24 18:00 Pulse 91 07/11/24 18:00 Resp 17 07/11/24 18:00 BP 121/74 07/11/24 18:00 Pulse Ox 98 07/11/24 12:25 O2 Del Method Blow-by 07/10/24 18:00 O2 Flow Rate 6 07/11/24 12:25 FiO2 28 07/11/24 12:25 Neurological:: PVS Speech:: none Answers questions:: no Respiratory:: lungs clear Cardiovascular: irregular Abdomen: soft and nontender Extremities:: deformities (Spastic contractures of extremities) Decubitus:: none Tracheostomy:: to blow by Feeding per:: G tube Complaints:: none ASSESSMENT & PLAN Assessment: Pt remains essentially PVS for years. No new issues. Prognosis for independent living is poor. No pain/ discomfort. Tolerates feeding. Plan: Current treatment reviewed and continued
[2024-07-12] VITALS (9 sets, daily range): BP systolic 105–123; BP diastolic 60–84; PULSE 62–78; RESP 16–20; TEMP 35.7–36.1; O2SAT 97–99
[2024-07-12] MEDS: IPRATROPIUM BROMIDE 200 PUFF/INH INHALER INH ×4 (01:15→21:15)
[2024-07-12] MEDS: ALBUTEROL INHALER 200 PUFF/INH INHALER INH ×4 (01:15→21:15)
[2024-07-12] MEDS: DEXLANSOPRAZOLE 30 MG PO (08:53)
[2024-07-12] MEDS: CARVEDILOL 3.125 MG TABLET GT (08:53)
[2024-07-12] MEDS: CYANOCOBALAMIN (VITAMIN B-12) 500 MCG TABLET 1000 MCG GT (08:54)
[2024-07-12] MEDS: MULTIVITAMIN W MINERALS 1 EACH TABLET GT (08:54)
--- NOTE | 2024-07-12 13:17 | PC.NURSE ---
Seen by Dr Ramires,no new orders made
--- NOTE | 2024-07-12 16:26 | PC.SS ---
Room visit: Resident is laying in bed with head of the bed elevated with corinne light properly placed with no signs of distress. Resident has no changes in care or condition, remains on blow by with trach in place and GT for medications and nutrition. Resident will remain in current care and will continue to have all subacute care needs met by staff. This SSD will continue to make daily contact with resident and monitor for changes in mood and behavior.
[2024-07-12] MEDS: ATORVASTATIN 40 MG TABLET GT (21:09)
[2024-07-12] MEDS: INSULIN GLARGINE 100 UNIT/ML INSULN.PEN 30 UNIT SC (21:15)
[2024-07-13] VITALS (9 sets, daily range): BP systolic 95–117; BP diastolic 53–78; PULSE 52–94; RESP 16–20; TEMP 36–36.2; O2SAT 92–99
[2024-07-13] MEDS: ALBUTEROL INHALER 200 PUFF/INH INHALER INH ×4 (00:59→19:15)
[2024-07-13] MEDS: IPRATROPIUM BROMIDE 200 PUFF/INH INHALER INH ×4 (00:59→19:15)
[2024-07-13] MEDS: CARVEDILOL 3.125 MG TABLET GT (08:10)
[2024-07-13] MEDS: CYANOCOBALAMIN (VITAMIN B-12) 500 MCG TABLET 1000 MCG GT (08:10)
[2024-07-13] MEDS: DEXLANSOPRAZOLE 30 MG PO (08:10)
[2024-07-13] MEDS: MULTIVITAMIN W MINERALS 1 EACH TABLET GT (08:10)
[2024-07-13] MEDS: ACETAMINOPHEN 325 MG TABLET 650 MG GT (08:17)
[2024-07-13] MEDS: GUAIFENESIN GT (08:18)
[2024-07-13] MEDS: DEXTROMETHORPHAN GT (08:18)
[2024-07-13] MEDS: PHENYLEPHRINE GT (08:18)
[2024-07-13] MEDS: ATORVASTATIN 40 MG TABLET GT (21:33)
[2024-07-13] MEDS: INSULIN GLARGINE 100 UNIT/ML INSULN.PEN 30 UNIT SC (21:50)
[2024-07-14] VITALS (10 sets, daily range): BP systolic 105–139; BP diastolic 69–84; PULSE 56–79; RESP 16–22; TEMP 36–36.4; O2SAT 96–99
[2024-07-14] MEDS: ALBUTEROL INHALER 200 PUFF/INH INHALER INH ×4 (00:32→20:13)
[2024-07-14] MEDS: IPRATROPIUM BROMIDE 200 PUFF/INH INHALER INH ×4 (00:32→20:13)
[2024-07-14] MEDS: CARVEDILOL 3.125 MG TABLET GT (09:35)
[2024-07-14] MEDS: CYANOCOBALAMIN (VITAMIN B-12) 500 MCG TABLET 1000 MCG GT (09:36)
[2024-07-14] MEDS: DEXLANSOPRAZOLE 30 MG PO (09:37)
[2024-07-14] MEDS: MULTIVITAMIN W MINERALS 1 EACH TABLET GT (09:37)
[2024-07-14] MEDS: ATORVASTATIN 40 MG TABLET GT (21:27)
[2024-07-14] MEDS: INSULIN GLARGINE 100 UNIT/ML INSULN.PEN 30 UNIT SC (21:33)
[2024-07-15] VITALS (9 sets, daily range): BP systolic 101–144; BP diastolic 60–88; PULSE 55–86; RESP 16–20; TEMP 36.1–36.2; O2SAT 94–99
[2024-07-15] MEDS: IPRATROPIUM BROMIDE 200 PUFF/INH INHALER INH ×4 (00:33→19:17)
[2024-07-15] MEDS: ALBUTEROL INHALER 200 PUFF/INH INHALER INH ×4 (00:33→19:17)
[2024-07-15] MEDS: CARBAMIDE PEROXIDE OTIC SOL 15 ML BTL 5 DROP BOTH EARS (08:19)
[2024-07-15] MEDS: CARVEDILOL 3.125 MG TABLET GT (08:20)
[2024-07-15] MEDS: CYANOCOBALAMIN (VITAMIN B-12) 500 MCG TABLET 1000 MCG GT (08:21)
[2024-07-15] MEDS: DEXLANSOPRAZOLE 30 MG PO (08:21)
[2024-07-15] MEDS: MULTIVITAMIN W MINERALS 1 EACH TABLET GT (08:21)
[2024-07-15] MEDS: ATORVASTATIN 40 MG TABLET GT (20:57)
[2024-07-15] MEDS: INSULIN GLARGINE 100 UNIT/ML INSULN.PEN 30 UNIT SC (21:03)
[2024-07-16] VITALS (9 sets, daily range): BP systolic 98–152; BP diastolic 65–80; PULSE 64–87; RESP 16–20; TEMP 36.2–36.6; O2SAT 96–98
[2024-07-16] MEDS: IPRATROPIUM BROMIDE 200 PUFF/INH INHALER INH ×4 (00:54→18:05)
[2024-07-16] MEDS: ALBUTEROL INHALER 200 PUFF/INH INHALER INH ×4 (00:54→18:05)
[2024-07-16] MEDS: MULTIVITAMIN W MINERALS 1 EACH TABLET GT (09:02)
[2024-07-16] MEDS: CYANOCOBALAMIN (VITAMIN B-12) 500 MCG TABLET 1000 MCG GT (09:02)
[2024-07-16] MEDS: CARVEDILOL 3.125 MG TABLET GT (09:02)
[2024-07-16] MEDS: DEXLANSOPRAZOLE 30 MG PO (09:02)
--- NOTE | 2024-07-16 12:00 | PD.SAPROG ---
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 (3) Chronic respiratory failure, unspecified whether with hypoxia or hypercapnia: Status: Chronic (4) Hyperlipidemia, unspecified: Status: Chronic (5) Tracheostomy status: Status: Chronic (6) Chronic atrial fibrillation: Status: Chronic SUBJECTIVE Fever:: none GI:: none Shortness of Breath:: none Pain:: none OBJECTIVE Most recent vital signs: Last Vital Signs Temp 97.8 F 07/16/24 05:46 Pulse 79 07/16/24 09:02 Resp 19 07/16/24 05:46 BP 152/73 H 07/16/24 09:02 Pulse Ox 98 07/16/24 05:46 O2 Del Method Blow-by 07/16/24 05:46 O2 Flow Rate 6 07/16/24 00:54 FiO2 28 07/16/24 00:54 Neurological:: PVS Speech:: none Answers questions:: no Respiratory:: lungs clear Cardiovascular: irregular Abdomen: soft and nontender Extremities:: deformities (Spastic contractures of extremities) Decubitus:: none Tracheostomy:: to blow by Feeding per:: G tube Complaints:: none ASSESSMENT & PLAN Assessment: Pt remains essentially PVS for years. No new issues. Prognosis for independent living is poor. No pain/ discomfort. Tolerates feeding. Plan: Current treatment reviewed and continued
[2024-07-16] MEDS: INSULIN GLARGINE 100 UNIT/ML INSULN.PEN 30 UNIT SC (20:29)
[2024-07-16] MEDS: ATORVASTATIN 40 MG TABLET GT (20:29)
[2024-07-17] VITALS (8 sets, daily range): BP systolic 111–125; BP diastolic 63–75; PULSE 63–80; RESP 17–20; TEMP 35.9–36.1; O2SAT 92–99
[2024-07-17] MEDS: IPRATROPIUM BROMIDE 200 PUFF/INH INHALER INH ×4 (00:45→19:20)
[2024-07-17] MEDS: ALBUTEROL INHALER 200 PUFF/INH INHALER INH ×4 (00:45→19:20)
[2024-07-17] MEDS: CARVEDILOL 3.125 MG TABLET GT (08:28)
[2024-07-17] MEDS: DEXLANSOPRAZOLE 30 MG PO (08:28)
[2024-07-17] MEDS: MULTIVITAMIN W MINERALS 1 EACH TABLET GT (08:28)
[2024-07-17] MEDS: CYANOCOBALAMIN (VITAMIN B-12) 500 MCG TABLET 1000 MCG GT (08:28)
[2024-07-17] MEDS: ATORVASTATIN 40 MG TABLET GT (19:59)
[2024-07-17] MEDS: INSULIN GLARGINE 100 UNIT/ML INSULN.PEN 30 UNIT SC (20:00)
[2024-07-18] VITALS (9 sets, daily range): BP systolic 98–138; BP diastolic 60–76; PULSE 52–73; RESP 16–18; TEMP 35.9–36.5; O2SAT 95–99
[2024-07-18] MEDS: IPRATROPIUM BROMIDE 200 PUFF/INH INHALER INH ×4 (00:50→18:42)
[2024-07-18] MEDS: ALBUTEROL INHALER 200 PUFF/INH INHALER INH ×4 (00:50→18:42)
[2024-07-18] MEDS: MULTIVITAMIN W MINERALS 1 EACH TABLET GT (09:23)
[2024-07-18] MEDS: CYANOCOBALAMIN (VITAMIN B-12) 500 MCG TABLET 1000 MCG GT (09:23)
[2024-07-18] MEDS: DEXLANSOPRAZOLE 30 MG PO (09:23)
[2024-07-18] MEDS: INSULIN GLARGINE 100 UNIT/ML INSULN.PEN 30 UNIT SC (21:16)
[2024-07-18] MEDS: ATORVASTATIN 40 MG TABLET GT (21:16)
[2024-07-19] VITALS (9 sets, daily range): BP systolic 98–116; BP diastolic 56–79; PULSE 57–73; RESP 16–18; TEMP 35.8–36.2; O2SAT 96–98; BMI 24.3
[2024-07-19] MEDS: IPRATROPIUM BROMIDE 200 PUFF/INH INHALER INH ×4 (01:07→19:30)
[2024-07-19] MEDS: ALBUTEROL INHALER 200 PUFF/INH INHALER INH ×4 (01:07→19:30)
[2024-07-19] MEDS: CARVEDILOL 3.125 MG TABLET GT (08:25)
[2024-07-19] MEDS: CYANOCOBALAMIN (VITAMIN B-12) 500 MCG TABLET 1000 MCG GT (08:26)
[2024-07-19] MEDS: MULTIVITAMIN W MINERALS 1 EACH TABLET GT (08:26)
[2024-07-19] MEDS: DEXLANSOPRAZOLE 30 MG PO (08:26)
--- NOTE | 2024-07-19 17:25 | PD.SAPROG ---
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 (3) Chronic respiratory failure, unspecified whether with hypoxia or hypercapnia: Status: Chronic (4) Hyperlipidemia, unspecified: Status: Chronic (5) Tracheostomy status: Status: Chronic (6) Chronic atrial fibrillation: Status: Chronic SUBJECTIVE Fever:: none GI:: none Shortness of Breath:: none Pain:: none OBJECTIVE Most recent vital signs: Last Vital Signs Temp 96.5 F L 07/19/24 17:18 Pulse 66 07/19/24 17:18 Resp 17 07/19/24 17:18 BP 110/73 07/19/24 17:18 Pulse Ox 97 07/19/24 17:18 O2 Del Method Mechanical Ventilation 07/19/24 17:18 O2 Flow Rate 6 07/19/24 13:35 FiO2 28 07/19/24 13:35 Neurological:: PVS Speech:: none Answers questions:: no Respiratory:: lungs clear Cardiovascular: irregular Abdomen: soft and nontender Extremities:: deformities (Spastic contractures of extremities) Decubitus:: none Tracheostomy:: to blow by Feeding per:: G tube Complaints:: none ASSESSMENT & PLAN Assessment: Pt remains essentially PVS for years. No new issues. Prognosis for independent living is poor. No pain/ discomfort. Tolerates feeding. Plan: Current treatment reviewed and continued
[2024-07-19] MEDS: INSULIN GLARGINE 100 UNIT/ML INSULN.PEN 30 UNIT SC (20:46)
[2024-07-19] MEDS: ATORVASTATIN 40 MG TABLET GT (20:46)
[2024-07-20] VITALS (8 sets, daily range): BP systolic 93–136; BP diastolic 57–65; PULSE 57–76; RESP 16–20; TEMP 36.1; O2SAT 96–98
[2024-07-20] MEDS: ALBUTEROL INHALER 200 PUFF/INH INHALER INH ×4 (00:25→18:45)
[2024-07-20] MEDS: IPRATROPIUM BROMIDE 200 PUFF/INH INHALER INH ×4 (00:25→18:45)
[2024-07-20] MEDS: CYANOCOBALAMIN (VITAMIN B-12) 500 MCG TABLET 1000 MCG GT (08:06)
[2024-07-20] MEDS: CARVEDILOL 3.125 MG TABLET GT (08:06)
[2024-07-20] MEDS: DEXLANSOPRAZOLE 30 MG PO (08:07)
[2024-07-20] MEDS: MULTIVITAMIN W MINERALS 1 EACH TABLET GT (08:08)
[2024-07-20] MEDS: PHENYLEPHRINE GT (09:11)
[2024-07-20] MEDS: DEXTROMETHORPHAN GT (09:11)
[2024-07-20] MEDS: GUAIFENESIN GT (09:11)
[2024-07-20] MEDS: ATORVASTATIN 40 MG TABLET GT (20:27)
[2024-07-20] MEDS: INSULIN GLARGINE 100 UNIT/ML INSULN.PEN 30 UNIT SC (20:29)
[2024-07-21] VITALS (9 sets, daily range): BP systolic 100–135; BP diastolic 62–74; PULSE 56–84; RESP 17–20; TEMP 36–36.1; O2SAT 96–99; BMI 23.7
[2024-07-21] MEDS: IPRATROPIUM BROMIDE 200 PUFF/INH INHALER INH ×4 (01:40→18:43)
[2024-07-21] MEDS: ALBUTEROL INHALER 200 PUFF/INH INHALER INH ×4 (01:40→18:43)
[2024-07-21] MEDS: CARVEDILOL 3.125 MG TABLET GT (09:36)
[2024-07-21] MEDS: DEXLANSOPRAZOLE 30 MG PO (09:37)
[2024-07-21] MEDS: MULTIVITAMIN W MINERALS 1 EACH TABLET GT (09:37)
[2024-07-21] MEDS: CYANOCOBALAMIN (VITAMIN B-12) 500 MCG TABLET 1000 MCG GT (09:37)
--- NOTE | 2024-07-21 15:14 | PC.SS ---
Room visit: Resident is laying in bed with head of the bed elevated with call light properly placed with no signs of distress. Resident remains on blow by with trach in place and GT for medication and nutrition. Resident is unable to make needs known as he has absence of speech, his decision maker is his son Colt Roy. Resident will remain in current care and will continue to have all subacute care needs met by staff. This SSD will continue to make daily contact with resident and offer support and he may need.
[2024-07-21] MEDS: ATORVASTATIN 40 MG TABLET GT (21:18)
[2024-07-21] MEDS: INSULIN GLARGINE 100 UNIT/ML INSULN.PEN 30 UNIT SC (21:23)
[2024-07-22] VITALS (9 sets, daily range): BP systolic 95–140; BP diastolic 64–85; PULSE 59–711; RESP 17–18; TEMP 36.2–36.6; O2SAT 95–99
[2024-07-22] MEDS: IPRATROPIUM BROMIDE 200 PUFF/INH INHALER INH ×2 (07:25→13:20)
[2024-07-22] MEDS: ALBUTEROL INHALER 200 PUFF/INH INHALER INH ×2 (07:25→13:20)
[2024-07-22] MEDS: CARVEDILOL 3.125 MG TABLET GT (09:08)
[2024-07-22] MEDS: CYANOCOBALAMIN (VITAMIN B-12) 500 MCG TABLET 1000 MCG GT (09:09)
[2024-07-22] MEDS: DEXLANSOPRAZOLE 30 MG PO (09:09)
[2024-07-22] MEDS: MULTIVITAMIN W MINERALS 1 EACH TABLET GT (09:09)
[2024-07-22] MEDS: ATORVASTATIN 40 MG TABLET GT (21:26)
[2024-07-22] MEDS: INSULIN GLARGINE 100 UNIT/ML INSULN.PEN 30 UNIT SC (21:29)
[2024-07-23] VITALS (8 sets, daily range): BP systolic 112–125; BP diastolic 62–84; PULSE 52–666; RESP 17–18; TEMP 36–36.7; O2SAT 97–99
[2024-07-23] MEDS: IPRATROPIUM BROMIDE 200 PUFF/INH INHALER INH ×3 (07:11→18:34)
[2024-07-23] MEDS: ALBUTEROL INHALER 200 PUFF/INH INHALER INH ×3 (07:11→18:34)
[2024-07-23] MEDS: CARVEDILOL 3.125 MG TABLET GT (09:04)
[2024-07-23] MEDS: CYANOCOBALAMIN (VITAMIN B-12) 500 MCG TABLET 1000 MCG GT (09:04)
[2024-07-23] MEDS: MULTIVITAMIN W MINERALS 1 EACH TABLET GT (09:04)
[2024-07-23] MEDS: DEXLANSOPRAZOLE 30 MG PO (09:04)
[2024-07-23] MEDS: ATORVASTATIN 40 MG TABLET GT (20:39)
[2024-07-23] MEDS: INSULIN GLARGINE 100 UNIT/ML INSULN.PEN 30 UNIT SC (20:43)
--- NOTE | 2024-07-23 21:59 | PD.SAPROG ---
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 (3) Chronic respiratory failure, unspecified whether with hypoxia or hypercapnia: Status: Chronic (4) Hyperlipidemia, unspecified: Status: Chronic (5) Tracheostomy status: Status: Chronic (6) Chronic atrial fibrillation: Status: Chronic SUBJECTIVE Fever:: none GI:: none Shortness of Breath:: none Pain:: none OBJECTIVE Most recent vital signs: Last Vital Signs Temp 97 F 07/23/24 17:28 Pulse 71 07/23/24 17:28 Resp 18 07/23/24 17:28 BP 112/69 07/23/24 17:28 Pulse Ox 98 07/23/24 17:28 O2 Del Method Blow-by 07/23/24 17:28 O2 Flow Rate 6 07/23/24 12:54 FiO2 28 07/23/24 12:54 Neurological:: PVS Speech:: none Answers questions:: no Respiratory:: lungs clear Cardiovascular: irregular Abdomen: soft and nontender Extremities:: deformities (Spastic contractures of extremities) Decubitus:: none Tracheostomy:: to blow by Feeding per:: G tube Complaints:: none ASSESSMENT & PLAN Assessment: Pt remains essentially PVS for years. No new issues. Prognosis for independent living is poor. No pain/ discomfort. Tolerates feeding. Plan: Current treatment reviewed and continued
[2024-07-24] VITALS (7 sets, daily range): BP systolic 113–134; BP diastolic 52–71; PULSE 51–83; RESP 16–20; TEMP 36.2–36.6; O2SAT 96–99
[2024-07-24] MEDS: ALBUTEROL INHALER 200 PUFF/INH INHALER INH ×5 (00:50→17:50)
[2024-07-24] MEDS: IPRATROPIUM BROMIDE 200 PUFF/INH INHALER INH ×5 (00:50→17:50)
[2024-07-24] MEDS: CARVEDILOL 3.125 MG TABLET GT (08:35)
[2024-07-24] MEDS: ACETAMINOPHEN 325 MG TABLET 650 MG GT (08:37)
[2024-07-24] MEDS: CYANOCOBALAMIN (VITAMIN B-12) 500 MCG TABLET 1000 MCG GT (08:37)
[2024-07-24] MEDS: MULTIVITAMIN W MINERALS 1 EACH TABLET GT (08:37)
[2024-07-24] MEDS: DEXLANSOPRAZOLE 30 MG PO (08:37)
[2024-07-24] MEDS: ATORVASTATIN 40 MG TABLET GT (20:49)
[2024-07-24] MEDS: INSULIN GLARGINE 100 UNIT/ML INSULN.PEN 30 UNIT SC (20:54)
[2024-07-25] VITALS (9 sets, daily range): BP systolic 91–139; BP diastolic 56–88; PULSE 44–89; RESP 17–22; TEMP 36.1–36.3; O2SAT 96–100
[2024-07-25] MEDS: ALBUTEROL INHALER 200 PUFF/INH INHALER INH ×4 (01:05→19:10)
[2024-07-25] MEDS: IPRATROPIUM BROMIDE 200 PUFF/INH INHALER INH ×4 (01:05→19:10)
[2024-07-25] MEDS: MULTIVITAMIN W MINERALS 1 EACH TABLET GT (08:23)
[2024-07-25] MEDS: CYANOCOBALAMIN (VITAMIN B-12) 500 MCG TABLET 1000 MCG GT (08:24)
[2024-07-25] MEDS: DEXLANSOPRAZOLE 30 MG PO (08:24)
[2024-07-25] MEDS: CARVEDILOL 3.125 MG TABLET GT (08:24)
[2024-07-25] MEDS: INSULIN GLARGINE 100 UNIT/ML INSULN.PEN 30 UNIT SC (20:47)
[2024-07-25] MEDS: ATORVASTATIN 40 MG TABLET GT (20:47)
[2024-07-26] VITALS (10 sets, daily range): BP systolic 96–123; BP diastolic 59–81; PULSE 56–81; RESP 17–20; TEMP 35.9–36.1; O2SAT 96–99
[2024-07-26] MEDS: ALBUTEROL INHALER 200 PUFF/INH INHALER INH ×4 (00:40→19:10)
[2024-07-26] MEDS: IPRATROPIUM BROMIDE 200 PUFF/INH INHALER INH ×4 (00:40→19:10)
[2024-07-26] MEDS: CARVEDILOL 3.125 MG TABLET GT (08:54)
[2024-07-26] MEDS: DEXLANSOPRAZOLE 30 MG PO (08:55)
[2024-07-26] MEDS: MULTIVITAMIN W MINERALS 1 EACH TABLET GT (08:55)
[2024-07-26] MEDS: CYANOCOBALAMIN (VITAMIN B-12) 500 MCG TABLET 1000 MCG GT (08:55)
[2024-07-26] MEDS: GUAIFENESIN GT (08:56)
[2024-07-26] MEDS: PHENYLEPHRINE GT (08:56)
[2024-07-26] MEDS: DEXTROMETHORPHAN GT (08:56)
--- NOTE | 2024-07-26 12:20 | PC.SS ---
Room visit: Resident remains on blow by with trach in place and GT for medication and nutrition. 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 Resident decision maker is his son Colt Roy. Resident will remain in current care and will continue to have all subacute care needs met by staff. This SSD will continue to make daily contact with resident and will offer support as he will accept.
[2024-07-26] MEDS: ATORVASTATIN 40 MG TABLET GT (21:05)
[2024-07-26] MEDS: INSULIN GLARGINE 100 UNIT/ML INSULN.PEN 30 UNIT SC (21:13)
[2024-07-27] VITALS (8 sets, daily range): BP systolic 97–136; BP diastolic 43–82; PULSE 55–74; RESP 16–20; TEMP 35.9–36.3; O2SAT 96–99
[2024-07-27] MEDS: ALBUTEROL INHALER 200 PUFF/INH INHALER INH ×4 (01:00→19:10)
[2024-07-27] MEDS: IPRATROPIUM BROMIDE 200 PUFF/INH INHALER INH ×4 (01:00→19:10)
[2024-07-27] MEDS: CARVEDILOL 3.125 MG TABLET GT (08:22)
[2024-07-27] MEDS: CYANOCOBALAMIN (VITAMIN B-12) 500 MCG TABLET 1000 MCG GT (08:23)
[2024-07-27] MEDS: DEXLANSOPRAZOLE 30 MG PO (08:23)
[2024-07-27] MEDS: MULTIVITAMIN W MINERALS 1 EACH TABLET GT (08:23)
[2024-07-27] MEDS: ATORVASTATIN 40 MG TABLET GT (20:38)
[2024-07-27] MEDS: INSULIN GLARGINE 100 UNIT/ML INSULN.PEN 30 UNIT SC (20:39)
--- NOTE | 2024-07-27 21:12 | PD.SAPROG ---
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 (3) Chronic respiratory failure, unspecified whether with hypoxia or hypercapnia: Status: Chronic (4) Hyperlipidemia, unspecified: Status: Chronic (5) Tracheostomy status: Status: Chronic (6) Chronic atrial fibrillation: Status: Chronic SUBJECTIVE Fever:: none GI:: none Shortness of Breath:: none Pain:: none OBJECTIVE Most recent vital signs: Last Vital Signs Temp 96.8 F 07/27/24 17:49 Pulse 70 07/27/24 17:49 Resp 20 07/27/24 17:49 BP 105/70 07/27/24 17:49 Pulse Ox 97 07/27/24 17:49 O2 Del Method Blow-by 07/27/24 17:49 O2 Flow Rate 6 07/27/24 11:38 FiO2 28 07/27/24 11:38 Neurological:: PVS Speech:: none Answers questions:: no Respiratory:: lungs clear Cardiovascular: irregular Abdomen: soft and nontender Extremities:: deformities (Spastic contractures of extremities) Decubitus:: none Tracheostomy:: to blow by Feeding per:: G tube Complaints:: none ASSESSMENT & PLAN Assessment: Pt remains essentially PVS for years. Prognosis for independent living is poor. No pain/ discomfort. Tolerates feeding. No new issues. Plan: Current treatment reviewed and continued
[2024-07-28] VITALS (10 sets, daily range): BP systolic 96–126; BP diastolic 56–77; PULSE 51–94; RESP 16–20; TEMP 35.9–36.4; O2SAT 92–98
[2024-07-28] MEDS: IPRATROPIUM BROMIDE 200 PUFF/INH INHALER INH ×4 (00:35→18:05)
[2024-07-28] MEDS: ALBUTEROL INHALER 200 PUFF/INH INHALER INH ×4 (00:35→18:05)
[2024-07-28] MEDS: CYANOCOBALAMIN (VITAMIN B-12) 500 MCG TABLET 1000 MCG GT (08:02)
[2024-07-28] MEDS: CARVEDILOL 3.125 MG TABLET GT (08:02)
[2024-07-28] MEDS: MULTIVITAMIN W MINERALS 1 EACH TABLET GT (08:02)
[2024-07-28] MEDS: ACETAMINOPHEN 325 MG TABLET 650 MG GT (08:02)
[2024-07-28] MEDS: DEXLANSOPRAZOLE 30 MG PO (08:02)
[2024-07-28] MEDS: ATORVASTATIN 40 MG TABLET GT (21:03)
[2024-07-28] MEDS: INSULIN GLARGINE 100 UNIT/ML INSULN.PEN 30 UNIT SC (21:07)
[2024-07-29] VITALS (8 sets, daily range): BP systolic 103–143; BP diastolic 59–70; PULSE 59–75; RESP 17–19; TEMP 36.1–36.2; O2SAT 95–99
[2024-07-29] MEDS: IPRATROPIUM BROMIDE 200 PUFF/INH INHALER INH ×4 (01:49→19:32)
[2024-07-29] MEDS: ALBUTEROL INHALER 200 PUFF/INH INHALER INH ×4 (01:49→19:32)
[2024-07-29] MEDS: CARVEDILOL 3.125 MG TABLET GT (08:18)
[2024-07-29] MEDS: ACETAMINOPHEN 325 MG TABLET 650 MG GT (08:20)
[2024-07-29] MEDS: DEXLANSOPRAZOLE 30 MG PO (08:20)
[2024-07-29] MEDS: CYANOCOBALAMIN (VITAMIN B-12) 500 MCG TABLET 1000 MCG GT (08:20)
[2024-07-29] MEDS: MULTIVITAMIN W MINERALS 1 EACH TABLET GT (08:20)
--- NOTE | 2024-07-29 20:00 | PD.SAPROG ---
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 (3) Chronic respiratory failure, unspecified whether with hypoxia or hypercapnia: Status: Chronic (4) Hyperlipidemia, unspecified: Status: Chronic (5) Tracheostomy status: Status: Chronic (6) Chronic atrial fibrillation: Status: Chronic SUBJECTIVE Fever:: none GI:: none Shortness of Breath:: none Pain:: none OBJECTIVE Most recent vital signs: Last Vital Signs Temp 96.9 F 07/29/24 17:58 Pulse 73 07/29/24 17:58 Resp 18 07/29/24 17:58 BP 103/67 07/29/24 17:58 Pulse Ox 98 07/29/24 17:58 O2 Del Method Blow-by 07/29/24 05:45 O2 Flow Rate 6 07/29/24 12:20 FiO2 28 07/29/24 12:20 Neurological:: PVS Speech:: none Answers questions:: no Respiratory:: lungs clear Cardiovascular: irregular Abdomen: soft and nontender Extremities:: deformities (Spastic contractures of extremities) Decubitus:: none Tracheostomy:: to blow by Feeding per:: G tube Complaints:: none ASSESSMENT & PLAN Assessment: Pt remains essentially PVS for years. Prognosis for independent living is poor. No pain/ discomfort. Tolerates feeding. No new issues. Plan: Current treatment reviewed and continued
[2024-07-29] MEDS: ATORVASTATIN 40 MG TABLET GT (20:46)
[2024-07-29] MEDS: INSULIN GLARGINE 100 UNIT/ML INSULN.PEN 30 UNIT SC (21:38)
[2024-07-30] VITALS (10 sets, daily range): BP systolic 94–144; BP diastolic 52–89; PULSE 60–75; RESP 17–18; TEMP 36.1–36.5; O2SAT 96–98
[2024-07-30] MEDS: IPRATROPIUM BROMIDE 200 PUFF/INH INHALER INH ×4 (00:22→19:48)
[2024-07-30] MEDS: ALBUTEROL INHALER 200 PUFF/INH INHALER INH ×4 (00:22→19:48)
[2024-07-30] MEDS: CARVEDILOL 3.125 MG TABLET GT (08:41)
[2024-07-30] MEDS: ACETAMINOPHEN 325 MG TABLET 650 MG GT (08:42)
[2024-07-30] MEDS: MULTIVITAMIN W MINERALS 1 EACH TABLET GT (08:42)
[2024-07-30] MEDS: DEXLANSOPRAZOLE 30 MG PO (08:42)
[2024-07-30] MEDS: CYANOCOBALAMIN (VITAMIN B-12) 500 MCG TABLET 1000 MCG GT (08:42)
[2024-07-30] MEDS: ATORVASTATIN 40 MG TABLET GT (21:36)
[2024-07-30] MEDS: INSULIN GLARGINE 100 UNIT/ML INSULN.PEN 30 UNIT SC (21:40)
[2024-07-31] VITALS (8 sets, daily range): BP systolic 105–134; BP diastolic 62–77; PULSE 59–78; RESP 17–19; TEMP 36.1–36.2; O2SAT 95–99
[2024-07-31] MEDS: IPRATROPIUM BROMIDE 200 PUFF/INH INHALER INH ×3 (00:05→19:45)
[2024-07-31] MEDS: ALBUTEROL INHALER 200 PUFF/INH INHALER INH ×4 (00:05→19:45)
[2024-07-31] MEDS: CARVEDILOL 3.125 MG TABLET GT (08:28)
[2024-07-31] MEDS: DEXLANSOPRAZOLE 30 MG PO (08:29)
[2024-07-31] MEDS: CYANOCOBALAMIN (VITAMIN B-12) 500 MCG TABLET 1000 MCG GT (08:29)
[2024-07-31] MEDS: MULTIVITAMIN W MINERALS 1 EACH TABLET GT (08:29)
[2024-07-31] MEDS: ATORVASTATIN 40 MG TABLET GT (20:51)
[2024-07-31] MEDS: INSULIN GLARGINE 100 UNIT/ML INSULN.PEN 30 UNIT SC (21:42)
[2024-08-01] VITALS: BP 133/80; PULSE 72; RESP 20; TEMP 36
[2024-08-01 02:00] VITALS: PULSE 67; RESP 18; O2SAT 95
[2024-08-01] MEDS: ALBUTEROL INHALER 200 PUFF/INH INHALER INH ×3 (02:00→12:15)
[2024-08-01] MEDS: IPRATROPIUM BROMIDE 200 PUFF/INH INHALER INH ×3 (02:00→12:15)
[2024-08-01 06:00] VITALS: BP 126/79; PULSE 58; RESP 18; TEMP 36; O2SAT 96
[2024-08-01 07:08] VITALS: PULSE 70; RESP 18; O2SAT 97; O2SAT 98
[2024-08-01 08:34] VITALS: BP 164/84; PULSE 78
[2024-08-01] MEDS: CARVEDILOL 3.125 MG TABLET GT (08:34)
[2024-08-01] MEDS: ACETAMINOPHEN 325 MG TABLET 650 MG GT (08:34)
[2024-08-01] MEDS: CYANOCOBALAMIN (VITAMIN B-12) 500 MCG TABLET 1000 MCG GT (08:35)
[2024-08-01] MEDS: DEXLANSOPRAZOLE 30 MG PO (08:36)
[2024-08-01] MEDS: MULTIVITAMIN W MINERALS 1 EACH TABLET GT (08:36)
[2024-08-01 12:15] VITALS: PULSE 59; RESP 18; O2SAT 99
[2024-08-01] MEDS: ATORVASTATIN 40 MG TABLET GT (21:09)
[2024-08-01] MEDS: INSULIN GLARGINE 100 UNIT/ML INSULN.PEN 30 UNIT SC (21:09)
[2024-08-02] VITALS (8 sets, daily range): BP systolic 104–133; BP diastolic 48–84; PULSE 38–73; RESP 17–20; TEMP 35.9–36.1; O2SAT 97–99
[2024-08-02] MEDS: IPRATROPIUM BROMIDE 200 PUFF/INH INHALER INH ×5 (00:21→19:00)
[2024-08-02] MEDS: ALBUTEROL INHALER 200 PUFF/INH INHALER INH ×5 (00:21→19:00)
[2024-08-02] MEDS: CARVEDILOL 3.125 MG TABLET GT (08:46)
[2024-08-02] MEDS: CYANOCOBALAMIN (VITAMIN B-12) 500 MCG TABLET 1000 MCG GT (08:46)
[2024-08-02] MEDS: MULTIVITAMIN W MINERALS 1 EACH TABLET GT (08:47)
[2024-08-02] MEDS: DEXLANSOPRAZOLE 30 MG PO (08:47)
--- NOTE | 2024-08-02 14:25 | PD.SAPROG ---
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 (3) Chronic respiratory failure, unspecified whether with hypoxia or hypercapnia: Status: Chronic (4) Hyperlipidemia, unspecified: Status: Chronic (5) Tracheostomy status: Status: Chronic (6) Chronic atrial fibrillation: Status: Chronic SUBJECTIVE Fever:: none GI:: none Shortness of Breath:: none Pain:: none OBJECTIVE Most recent vital signs: Last Vital Signs Temp 96.7 F L 08/04/24 18:00 Pulse 83 08/04/24 18:00 Resp 20 08/04/24 18:00 BP 124/73 08/04/24 18:00 Pulse Ox 97 08/04/24 18:00 O2 Del Method Blow-by 08/04/24 18:00 O2 Flow Rate 6 08/04/24 12:18 FiO2 28 08/04/24 12:18 Neurological:: PVS Speech:: none Answers questions:: no Respiratory:: lungs clear Cardiovascular: irregular Abdomen: soft and nontender Extremities:: deformities (Spastic contractures of extremities) Decubitus:: none Tracheostomy:: to blow by Feeding per:: G tube Complaints:: none ASSESSMENT & PLAN Assessment: Pt remains essentially PVS for years. Prognosis for independent living is poor. No pain/ discomfort. Tolerates feeding. No new issues. Plan: Current treatment reviewed and continued
[2024-08-02] MEDS: ATORVASTATIN 40 MG TABLET GT (20:24)
[2024-08-02] MEDS: INSULIN GLARGINE 100 UNIT/ML INSULN.PEN 30 UNIT SC (21:14)
[2024-08-03] VITALS (10 sets, daily range): BP systolic 102–159; BP diastolic 58–69; PULSE 61–72; RESP 18–89; TEMP 36.1–36.2; O2SAT 95–98
[2024-08-03] MEDS: IPRATROPIUM BROMIDE 200 PUFF/INH INHALER INH ×4 (00:39→19:40)
[2024-08-03] MEDS: ALBUTEROL INHALER 200 PUFF/INH INHALER INH ×4 (00:39→19:40)
[2024-08-03] MEDS: CARVEDILOL 3.125 MG TABLET GT (09:58)
[2024-08-03] MEDS: CYANOCOBALAMIN (VITAMIN B-12) 500 MCG TABLET 1000 MCG GT (09:59)
[2024-08-03] MEDS: MULTIVITAMIN W MINERALS 1 EACH TABLET GT (10:00)
[2024-08-03] MEDS: DEXLANSOPRAZOLE 30 MG PO (10:00)
[2024-08-03] MEDS: INSULIN GLARGINE 100 UNIT/ML INSULN.PEN 30 UNIT SC (21:22)
[2024-08-03] MEDS: ATORVASTATIN 40 MG TABLET GT (21:30)
[2024-08-04] VITALS (10 sets, daily range): BP systolic 95–153; BP diastolic 51–79; PULSE 61–83; RESP 17–20; TEMP 35.9–36.3; O2SAT 96–100
[2024-08-04] MEDS: IPRATROPIUM BROMIDE 200 PUFF/INH INHALER INH ×4 (00:40→19:08)
[2024-08-04] MEDS: ALBUTEROL INHALER 200 PUFF/INH INHALER INH ×4 (00:40→19:08)
[2024-08-04] MEDS: CARVEDILOL 3.125 MG TABLET GT (08:15)
[2024-08-04] MEDS: CYANOCOBALAMIN (VITAMIN B-12) 500 MCG TABLET 1000 MCG GT (08:16)
[2024-08-04] MEDS: MULTIVITAMIN W MINERALS 1 EACH TABLET GT (08:16)
[2024-08-04] MEDS: DEXLANSOPRAZOLE 30 MG PO (08:16)
--- NOTE | 2024-08-04 15:14 | PC.NURSE ---
Resident noted with bile like colored residual and secretions, and tube feeding noted to be sucking in with good bowel movement. Notified Dr Ramires, monitor at this time.
[2024-08-04] MEDS: GUAIFENESIN GT (16:00)
[2024-08-04] MEDS: DEXTROMETHORPHAN GT (16:00)
[2024-08-04] MEDS: PHENYLEPHRINE GT (16:00)
[2024-08-04] MEDS: ATORVASTATIN 40 MG TABLET GT (20:30)
[2024-08-04] MEDS: INSULIN GLARGINE 100 UNIT/ML INSULN.PEN 30 UNIT SC (21:01)
[2024-08-05] VITALS (8 sets, daily range): BP systolic 98–113; BP diastolic 58–68; PULSE 52–86; RESP 16–20; TEMP 35.9–36.2; O2SAT 95–100
[2024-08-05] MEDS: ALBUTEROL INHALER 200 PUFF/INH INHALER INH ×4 (01:28→18:51)
[2024-08-05] MEDS: IPRATROPIUM BROMIDE 200 PUFF/INH INHALER INH ×4 (01:28→18:51)
[2024-08-05] MEDS: DEXLANSOPRAZOLE 30 MG PO (08:54)
[2024-08-05] MEDS: CYANOCOBALAMIN (VITAMIN B-12) 500 MCG TABLET 1000 MCG GT (08:54)
[2024-08-05] MEDS: MULTIVITAMIN W MINERALS 1 EACH TABLET GT (08:55)
[2024-08-05] MEDS: ATORVASTATIN 40 MG TABLET GT (21:00)
[2024-08-05] MEDS: INSULIN GLARGINE 100 UNIT/ML INSULN.PEN 30 UNIT SC (21:05)
[2024-08-06] VITALS (9 sets, daily range): BP systolic 100–123; BP diastolic 58–74; PULSE 52–71; RESP 16–18; TEMP 35.9–36.1; O2SAT 95–99
[2024-08-06] MEDS: ALBUTEROL INHALER 200 PUFF/INH INHALER INH ×4 (01:17→18:30)
[2024-08-06] MEDS: IPRATROPIUM BROMIDE 200 PUFF/INH INHALER INH ×4 (01:17→18:30)
[2024-08-06] MEDS: CYANOCOBALAMIN (VITAMIN B-12) 500 MCG TABLET 1000 MCG GT (09:22)
[2024-08-06] MEDS: DEXLANSOPRAZOLE 30 MG PO (09:23)
[2024-08-06] MEDS: GUAIFENESIN GT (09:23)
[2024-08-06] MEDS: MULTIVITAMIN W MINERALS 1 EACH TABLET GT (09:23)
[2024-08-06] MEDS: PHENYLEPHRINE GT (09:23)
[2024-08-06] MEDS: DEXTROMETHORPHAN GT (09:23)
--- NOTE | 2024-08-06 18:36 | PD.SAPROG ---
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 (3) Chronic respiratory failure, unspecified whether with hypoxia or hypercapnia: Status: Chronic (4) Hyperlipidemia, unspecified: Status: Chronic (5) Tracheostomy status: Status: Chronic (6) Chronic atrial fibrillation: Status: Chronic SUBJECTIVE Fever:: none GI:: none Shortness of Breath:: none Pain:: none OBJECTIVE Most recent vital signs: Last Vital Signs Temp 96.7 F L 08/06/24 18:00 Pulse 71 08/06/24 18:00 Resp 17 08/06/24 18:00 BP 100/58 L 08/06/24 18:00 Pulse Ox 95 08/06/24 18:00 O2 Del Method Blow-by 08/06/24 18:00 O2 Flow Rate 6 08/06/24 13:38 FiO2 28 08/06/24 13:38 Neurological:: PVS Speech:: none Answers questions:: no Respiratory:: lungs clear Cardiovascular: irregular Abdomen: soft and nontender Extremities:: deformities (Spastic contractures of extremities) Decubitus:: none Tracheostomy:: to blow by Feeding per:: G tube Complaints:: none ASSESSMENT & PLAN Assessment: Pt remains essentially PVS for years. Prognosis for independent living is poor. No pain/ discomfort. Tolerates feeding. No new issues. Plan: Current treatment reviewed and continued
[2024-08-06] MEDS: ATORVASTATIN 40 MG TABLET GT (20:32)
[2024-08-06] MEDS: INSULIN GLARGINE 100 UNIT/ML INSULN.PEN 30 UNIT SC (20:35)
[2024-08-07] VITALS (9 sets, daily range): BP systolic 99–149; BP diastolic 53–81; PULSE 54–80; RESP 17–18; TEMP 36.1–36.2; O2SAT 95–98
[2024-08-07] MEDS: ALBUTEROL INHALER 200 PUFF/INH INHALER INH ×4 (02:33→19:20)
[2024-08-07] MEDS: IPRATROPIUM BROMIDE 200 PUFF/INH INHALER INH ×4 (02:33→19:20)
[2024-08-07] MEDS: CYANOCOBALAMIN (VITAMIN B-12) 500 MCG TABLET 1000 MCG GT (08:32)
[2024-08-07] MEDS: CARVEDILOL 3.125 MG TABLET GT (08:32)
[2024-08-07] MEDS: DEXLANSOPRAZOLE 30 MG PO (08:32)
[2024-08-07] MEDS: MULTIVITAMIN W MINERALS 1 EACH TABLET GT (08:32)
[2024-08-07] MEDS: INSULIN GLARGINE 100 UNIT/ML INSULN.PEN 30 UNIT SC (21:09)
[2024-08-07] MEDS: ATORVASTATIN 40 MG TABLET GT (21:09)
[2024-08-08] VITALS (9 sets, daily range): BP systolic 102–122; BP diastolic 61–99; PULSE 42–100; RESP 16–19; TEMP 36–36.4; O2SAT 93–96
[2024-08-08] MEDS: ALBUTEROL INHALER 200 PUFF/INH INHALER INH ×4 (01:52→18:37)
[2024-08-08] MEDS: IPRATROPIUM BROMIDE 200 PUFF/INH INHALER INH ×4 (01:52→18:37)
[2024-08-08] MEDS: CARVEDILOL 3.125 MG TABLET GT (08:20)
[2024-08-08] MEDS: CYANOCOBALAMIN (VITAMIN B-12) 500 MCG TABLET 1000 MCG GT (08:21)
[2024-08-08] MEDS: DEXLANSOPRAZOLE 30 MG PO (08:21)
[2024-08-08] MEDS: MULTIVITAMIN W MINERALS 1 EACH TABLET GT (08:21)
[2024-08-08] MEDS: INSULIN GLARGINE 100 UNIT/ML INSULN.PEN 30 UNIT SC (21:02)
[2024-08-08] MEDS: ATORVASTATIN 40 MG TABLET GT (21:02)
[2024-08-09] VITALS (9 sets, daily range): BP systolic 96–136; BP diastolic 64–77; PULSE 49–77; RESP 16–18; TEMP 35.9–36.1; O2SAT 87–99
[2024-08-09] MEDS: ALBUTEROL INHALER 200 PUFF/INH INHALER INH ×4 (00:02→18:49)
[2024-08-09] MEDS: IPRATROPIUM BROMIDE 200 PUFF/INH INHALER INH ×4 (00:02→18:49)
[2024-08-09] MEDS: CARVEDILOL 3.125 MG TABLET GT (08:26)
[2024-08-09] MEDS: CYANOCOBALAMIN (VITAMIN B-12) 500 MCG TABLET 1000 MCG GT (08:27)
[2024-08-09] MEDS: MULTIVITAMIN W MINERALS 1 EACH TABLET GT (08:27)
[2024-08-09] MEDS: DEXLANSOPRAZOLE 30 MG PO (08:27)
[2024-08-09] MEDS: ACETAMINOPHEN 325 MG TABLET 650 MG GT (08:28)
[2024-08-09] MEDS: ATORVASTATIN 40 MG TABLET GT (21:01)
[2024-08-09] MEDS: INSULIN GLARGINE 100 UNIT/ML INSULN.PEN 30 UNIT SC (21:01)
[2024-08-10] VITALS (10 sets, daily range): BP systolic 120–141; BP diastolic 64–81; PULSE 49–72; RESP 17–18; TEMP 35.9–36.2; O2SAT 92–97
[2024-08-10] MEDS: IPRATROPIUM BROMIDE 200 PUFF/INH INHALER INH ×4 (01:11→18:40)
[2024-08-10] MEDS: ALBUTEROL INHALER 200 PUFF/INH INHALER INH ×4 (01:11→18:40)
[2024-08-10] MEDS: CYANOCOBALAMIN (VITAMIN B-12) 500 MCG TABLET 1000 MCG GT (09:02)
[2024-08-10] MEDS: DEXLANSOPRAZOLE 30 MG PO (09:02)
[2024-08-10] MEDS: MULTIVITAMIN W MINERALS 1 EACH TABLET GT (09:03)
--- NOTE | 2024-08-10 20:15 | PD.SAPROG ---
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 (3) Chronic respiratory failure, unspecified whether with hypoxia or hypercapnia: Status: Chronic (4) Hyperlipidemia, unspecified: Status: Chronic (5) Tracheostomy status: Status: Chronic (6) Chronic atrial fibrillation: Status: Chronic SUBJECTIVE Fever:: none GI:: none Shortness of Breath:: none Pain:: none OBJECTIVE Most recent vital signs: Last Vital Signs Temp 96.7 F L 08/10/24 17:44 Pulse 70 08/10/24 17:44 Resp 17 08/10/24 17:44 BP 135/81 H 08/10/24 17:44 Pulse Ox 92 L 08/10/24 17:44 O2 Del Method Blow-by 08/10/24 17:44 O2 Flow Rate 6 08/10/24 12:30 FiO2 28 08/10/24 12:30 Neurological:: PVS Speech:: none Answers questions:: no Respiratory:: lungs clear Cardiovascular: irregular Abdomen: soft and nontender Extremities:: deformities (Spastic contractures of extremities) Decubitus:: none Tracheostomy:: to blow by Feeding per:: G tube Complaints:: none ASSESSMENT & PLAN Assessment: Pt remains essentially PVS for years. Prognosis for independent living is poor. No pain/ discomfort. Tolerates feeding. No new issues. Plan: Current treatment reviewed and continued
[2024-08-10] MEDS: ATORVASTATIN 40 MG TABLET GT (20:46)
[2024-08-10] MEDS: INSULIN GLARGINE 100 UNIT/ML INSULN.PEN 30 UNIT SC (20:52)
[2024-08-11] VITALS (10 sets, daily range): BP systolic 100–122; BP diastolic 54–77; PULSE 51–76; RESP 17–21; TEMP 36.1–36.6; O2SAT 96–99
[2024-08-11] MEDS: IPRATROPIUM BROMIDE 200 PUFF/INH INHALER INH ×4 (00:10→18:20)
[2024-08-11] MEDS: ALBUTEROL INHALER 200 PUFF/INH INHALER INH ×4 (00:10→18:20)
[2024-08-11] MEDS: CYANOCOBALAMIN (VITAMIN B-12) 500 MCG TABLET 1000 MCG GT (08:40)
[2024-08-11] MEDS: DEXLANSOPRAZOLE 30 MG PO (08:50)
[2024-08-11] MEDS: MULTIVITAMIN W MINERALS 1 EACH TABLET GT (08:51)
[2024-08-11] MEDS: DEXTROMETHORPHAN GT (08:52)
[2024-08-11] MEDS: PHENYLEPHRINE GT (08:52)
[2024-08-11] MEDS: GUAIFENESIN GT (08:52)
[2024-08-11] MEDS: ATORVASTATIN 40 MG TABLET GT (20:21)
[2024-08-11] MEDS: INSULIN GLARGINE 100 UNIT/ML INSULN.PEN 30 UNIT SC (20:28)
[2024-08-12] VITALS (9 sets, daily range): BP systolic 102–148; BP diastolic 54–82; PULSE 51–74; RESP 16–18; TEMP 36.1–36.6; O2SAT 96–99
[2024-08-12] MEDS: ALBUTEROL INHALER 200 PUFF/INH INHALER INH ×4 (00:20→19:25)
[2024-08-12] MEDS: IPRATROPIUM BROMIDE 200 PUFF/INH INHALER INH ×4 (00:20→19:25)
[2024-08-12] MEDS: MULTIVITAMIN W MINERALS 1 EACH TABLET GT (08:18)
[2024-08-12] MEDS: DEXLANSOPRAZOLE 30 MG PO (08:18)
[2024-08-12] MEDS: CYANOCOBALAMIN (VITAMIN B-12) 500 MCG TABLET 1000 MCG GT (08:19)
[2024-08-12] MEDS: ATORVASTATIN 40 MG TABLET GT (20:49)
[2024-08-12] MEDS: INSULIN GLARGINE 100 UNIT/ML INSULN.PEN 30 UNIT SC (20:49)
[2024-08-12] MEDS: MAGNESIUM HYDROXIDE 30 ML ORAL SUSP ML GT (20:51)
[2024-08-13] VITALS (8 sets, daily range): BP systolic 109–133; BP diastolic 51–83; PULSE 51–84; RESP 18–20; TEMP 36.1–36.3; O2SAT 85–99
[2024-08-13] MEDS: ALBUTEROL INHALER 200 PUFF/INH INHALER INH ×4 (00:15→17:10)
[2024-08-13] MEDS: IPRATROPIUM BROMIDE 200 PUFF/INH INHALER INH ×4 (00:15→17:10)
[2024-08-13] MEDS: CYANOCOBALAMIN (VITAMIN B-12) 500 MCG TABLET 1000 MCG GT (08:29)
[2024-08-13] MEDS: DEXLANSOPRAZOLE 30 MG PO (08:30)
[2024-08-13] MEDS: MULTIVITAMIN W MINERALS 1 EACH TABLET GT (08:30)
[2024-08-13] MEDS: INSULIN GLARGINE 100 UNIT/ML INSULN.PEN 30 UNIT SC (20:01)
[2024-08-13] MEDS: ATORVASTATIN 40 MG TABLET GT (20:02)
[2024-08-14] VITALS (9 sets, daily range): BP systolic 112–138; BP diastolic 57–78; PULSE 47–82; RESP 18–20; TEMP 36.1–36.2; O2SAT 94–98
[2024-08-14] MEDS: IPRATROPIUM BROMIDE 200 PUFF/INH INHALER INH ×4 (00:34→19:40)
[2024-08-14] MEDS: ALBUTEROL INHALER 200 PUFF/INH INHALER INH ×4 (00:34→19:40)
[2024-08-14] MEDS: CYANOCOBALAMIN (VITAMIN B-12) 500 MCG TABLET 1000 MCG GT (08:10)
[2024-08-14] MEDS: MULTIVITAMIN W MINERALS 1 EACH TABLET GT (08:11)
[2024-08-14] MEDS: DEXLANSOPRAZOLE 30 MG PO (08:11)
[2024-08-14] MEDS: PHENYLEPHRINE GT (13:40)
[2024-08-14] MEDS: DEXTROMETHORPHAN GT (13:40)
[2024-08-14] MEDS: GUAIFENESIN GT (13:40)
[2024-08-14] MEDS: ATORVASTATIN 40 MG TABLET GT (21:00)
--- NOTE | 2024-08-14 21:27 | PD.SAPROG ---
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 (3) Chronic respiratory failure, unspecified whether with hypoxia or hypercapnia: Status: Chronic (4) Hyperlipidemia, unspecified: Status: Chronic (5) Tracheostomy status: Status: Chronic (6) Chronic atrial fibrillation: Status: Chronic SUBJECTIVE Fever:: none GI:: none Shortness of Breath:: none Pain:: none OBJECTIVE Most recent vital signs: Last Vital Signs Temp 97.0 F 08/14/24 17:34 Pulse 78 08/14/24 17:34 Resp 19 08/14/24 17:34 BP 138/78 H 08/14/24 17:34 Pulse Ox 98 08/14/24 17:34 O2 Del Method Blow-by 08/14/24 17:34 O2 Flow Rate 6 08/14/24 13:30 FiO2 28 08/14/24 13:30 Neurological:: PVS Speech:: none Answers questions:: no Respiratory:: lungs clear Cardiovascular: irregular Abdomen: soft and nontender Extremities:: deformities (Spastic contractures of extremities) Decubitus:: none Tracheostomy:: to blow by Feeding per:: G tube Complaints:: none ASSESSMENT & PLAN Assessment: Pt remains essentially PVS for years. Prognosis for independent living is poor. No pain/ discomfort. Tolerates feeding. No new issues. Plan: Current treatment reviewed and continued
[2024-08-14] MEDS: INSULIN GLARGINE 100 UNIT/ML INSULN.PEN 30 UNIT SC (21:28)
[2024-08-15] VITALS (9 sets, daily range): BP systolic 106–125; BP diastolic 62–73; PULSE 52–75; RESP 18–20; TEMP 36.1–36.4; O2SAT 94–98
[2024-08-15] MEDS: ALBUTEROL INHALER 200 PUFF/INH INHALER INH ×4 (00:45→19:35)
[2024-08-15] MEDS: IPRATROPIUM BROMIDE 200 PUFF/INH INHALER INH ×4 (00:45→19:35)
[2024-08-15] MEDS: CYANOCOBALAMIN (VITAMIN B-12) 500 MCG TABLET 1000 MCG GT (08:05)
[2024-08-15] MEDS: DEXLANSOPRAZOLE 30 MG PO (08:05)
[2024-08-15] MEDS: MULTIVITAMIN W MINERALS 1 EACH TABLET GT (08:06)
[2024-08-15] MEDS: ATORVASTATIN 40 MG TABLET GT (20:48)
[2024-08-15] MEDS: INSULIN GLARGINE 100 UNIT/ML INSULN.PEN 30 UNIT SC (20:48)
[2024-08-16] VITALS (8 sets, daily range): BP systolic 102–129; BP diastolic 64–79; PULSE 51–70; RESP 18; TEMP 36.1; O2SAT 96–98
[2024-08-16] MEDS: ALBUTEROL INHALER 200 PUFF/INH INHALER INH ×4 (00:10→18:20)
[2024-08-16] MEDS: IPRATROPIUM BROMIDE 200 PUFF/INH INHALER INH ×4 (00:10→18:20)
[2024-08-16] MEDS: CYANOCOBALAMIN (VITAMIN B-12) 500 MCG TABLET 1000 MCG GT (08:07)
[2024-08-16] MEDS: CARVEDILOL 3.125 MG TABLET GT (08:07)
[2024-08-16] MEDS: DEXLANSOPRAZOLE 30 MG PO (08:07)
[2024-08-16] MEDS: MULTIVITAMIN W MINERALS 1 EACH TABLET GT (08:08)
[2024-08-16] MEDS: ACETAMINOPHEN 325 MG TABLET 650 MG GT (20:38)
[2024-08-16] MEDS: ATORVASTATIN 40 MG TABLET GT (20:38)
[2024-08-16] MEDS: INSULIN GLARGINE 100 UNIT/ML INSULN.PEN 30 UNIT SC (20:39)
[2024-08-17] VITALS (8 sets, daily range): BP systolic 95–127; BP diastolic 51–79; PULSE 55–76; RESP 18–19; TEMP 36.1–36.4; O2SAT 96–98
[2024-08-17] MEDS: ALBUTEROL INHALER 200 PUFF/INH INHALER INH ×4 (00:45→19:05)
[2024-08-17] MEDS: IPRATROPIUM BROMIDE 200 PUFF/INH INHALER INH ×4 (00:45→19:05)
[2024-08-17] MEDS: DEXLANSOPRAZOLE 30 MG PO (08:42)
[2024-08-17] MEDS: MULTIVITAMIN W MINERALS 1 EACH TABLET GT (08:42)
[2024-08-17] MEDS: CYANOCOBALAMIN (VITAMIN B-12) 500 MCG TABLET 1000 MCG GT (08:42)
[2024-08-17] MEDS: ACETAMINOPHEN 325 MG TABLET 650 MG GT (20:55)
[2024-08-17] MEDS: ATORVASTATIN 40 MG TABLET GT (21:19)
[2024-08-17] MEDS: INSULIN GLARGINE 100 UNIT/ML INSULN.PEN 30 UNIT SC (21:19)
[2024-08-18] VITALS (9 sets, daily range): BP systolic 99–124; BP diastolic 57–73; PULSE 53–69; RESP 18–20; TEMP 36.1–36.2; O2SAT 94–99
[2024-08-18] MEDS: ALBUTEROL INHALER 200 PUFF/INH INHALER INH ×4 (00:20→18:58)
[2024-08-18] MEDS: IPRATROPIUM BROMIDE 200 PUFF/INH INHALER INH ×4 (00:20→18:58)
[2024-08-18] MEDS: CYANOCOBALAMIN (VITAMIN B-12) 500 MCG TABLET 1000 MCG GT (09:53)
[2024-08-18] MEDS: DEXLANSOPRAZOLE 30 MG PO (09:54)
[2024-08-18] MEDS: MULTIVITAMIN W MINERALS 1 EACH TABLET GT (09:54)
--- NOTE | 2024-08-18 14:33 | PC.SS ---
Room visit: Resident son is his decision maker as he is unable to make needs known. Resident is laying in bed with head of the bed elevated with call light properly placed with no signs of distress. Resident remains on blow by with trach in place and GT for medication and nutrition. Resident has no changes in care or condition he will remain in current care as he is unable to return home due to heavy and complicated care regimen. All subacute care needs to be met in facility by staff.
[2024-08-18] MEDS: ACETAMINOPHEN 325 MG TABLET 650 MG GT (21:10)
[2024-08-18] MEDS: ATORVASTATIN 40 MG TABLET GT (21:13)
[2024-08-18] MEDS: INSULIN GLARGINE 100 UNIT/ML INSULN.PEN 30 UNIT SC (21:13)
--- NOTE | 2024-08-18 21:32 | PD.SAPROG ---
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 (3) Chronic respiratory failure, unspecified whether with hypoxia or hypercapnia: Status: Chronic (4) Hyperlipidemia, unspecified: Status: Chronic (5) Tracheostomy status: Status: Chronic (6) Chronic atrial fibrillation: Status: Chronic SUBJECTIVE Fever:: none GI:: none Shortness of Breath:: none Pain:: none OBJECTIVE Most recent vital signs: Last Vital Signs Temp 96.9 F 08/18/24 17:14 Pulse 59 L 08/18/24 17:14 Resp 19 08/18/24 17:14 BP 99/57 L 08/18/24 17:14 Pulse Ox 98 08/18/24 12:52 O2 Del Method Blow-by 08/18/24 12:00 O2 Flow Rate 6 08/18/24 12:52 FiO2 28 08/18/24 12:52 Neurological:: PVS Speech:: none Answers questions:: no Respiratory:: lungs clear Cardiovascular: irregular Abdomen: soft and nontender Extremities:: deformities (Spastic contractures of extremities) Decubitus:: none Tracheostomy:: to blow by Feeding per:: G tube Complaints:: none ASSESSMENT & PLAN Assessment: Pt remains essentially PVS for years. Prognosis for independent living is poor. No pain/ discomfort. Tolerates feeding. No new issues. Plan: Current treatment reviewed and continued
[2024-08-19] VITALS (9 sets, daily range): BP systolic 118–137; BP diastolic 51–79; PULSE 47–73; RESP 16–20; TEMP 35.9–36.6; O2SAT 95–98
[2024-08-19] MEDS: ALBUTEROL INHALER 200 PUFF/INH INHALER INH ×4 (00:49→19:15)
[2024-08-19] MEDS: IPRATROPIUM BROMIDE 200 PUFF/INH INHALER INH ×4 (00:49→19:15)
[2024-08-19] MEDS: CYANOCOBALAMIN (VITAMIN B-12) 500 MCG TABLET 1000 MCG GT (08:15)
[2024-08-19] MEDS: MULTIVITAMIN W MINERALS 1 EACH TABLET GT (08:15)
[2024-08-19] MEDS: DEXLANSOPRAZOLE 30 MG PO (08:15)
[2024-08-19] MEDS: MAGNESIUM HYDROXIDE 30 ML ORAL SUSP ML GT (08:16)
[2024-08-19] MEDS: ACETAMINOPHEN 325 MG TABLET 650 MG GT (20:50)
[2024-08-19] MEDS: ATORVASTATIN 40 MG TABLET GT (21:11)
[2024-08-19] MEDS: INSULIN GLARGINE 100 UNIT/ML INSULN.PEN 30 UNIT SC (21:12)
[2024-08-20] VITALS (9 sets, daily range): BP systolic 91–111; BP diastolic 54–78; PULSE 63–89; RESP 18–20; TEMP 36.1–36.6; O2SAT 95–98
[2024-08-20] MEDS: IPRATROPIUM BROMIDE 200 PUFF/INH INHALER INH ×4 (00:50→19:40)
[2024-08-20] MEDS: ALBUTEROL INHALER 200 PUFF/INH INHALER INH ×4 (00:50→19:40)
[2024-08-20] MEDS: MULTIVITAMIN W MINERALS 1 EACH TABLET GT (08:26)
[2024-08-20] MEDS: DEXLANSOPRAZOLE 30 MG PO (08:26)
[2024-08-20] MEDS: CYANOCOBALAMIN (VITAMIN B-12) 500 MCG TABLET 1000 MCG GT (08:26)
[2024-08-20] MEDS: ACETAMINOPHEN 325 MG TABLET 650 MG GT (21:10)
[2024-08-20] MEDS: ATORVASTATIN 40 MG TABLET GT (21:29)
[2024-08-20] MEDS: INSULIN GLARGINE 100 UNIT/ML INSULN.PEN 30 UNIT SC (21:29)
[2024-08-21] VITALS (9 sets, daily range): BP systolic 93–111; BP diastolic 54–66; PULSE 48–84; RESP 17–20; TEMP 36.1–36.2; O2SAT 86–98
[2024-08-21] MEDS: ALBUTEROL INHALER 200 PUFF/INH INHALER INH ×3 (03:30→12:39)
[2024-08-21] MEDS: IPRATROPIUM BROMIDE 200 PUFF/INH INHALER INH ×3 (03:30→12:39)
[2024-08-21] MEDS: CYANOCOBALAMIN (VITAMIN B-12) 500 MCG TABLET 1000 MCG GT (08:20)
[2024-08-21] MEDS: DEXLANSOPRAZOLE 30 MG PO (08:22)
[2024-08-21] MEDS: MULTIVITAMIN W MINERALS 1 EACH TABLET GT (08:22)
[2024-08-21] MEDS: PHENYLEPHRINE GT ×2 (08:23→15:42)
[2024-08-21] MEDS: GUAIFENESIN GT ×2 (08:23→15:42)
[2024-08-21] MEDS: DEXTROMETHORPHAN GT ×2 (08:23→15:42)
[2024-08-21] MEDS: ACETAMINOPHEN 325 MG TABLET 650 MG GT (15:41)
[2024-08-21] MEDS: ATORVASTATIN 40 MG TABLET GT (20:23)
[2024-08-21] MEDS: INSULIN GLARGINE 100 UNIT/ML INSULN.PEN 30 UNIT SC (20:24)
[2024-08-22] VITALS (9 sets, daily range): BP systolic 95–146; BP diastolic 58–84; PULSE 65–99; RESP 16–20; TEMP 36.1–36.6; O2SAT 86–98
[2024-08-22] MEDS: ALBUTEROL INHALER 200 PUFF/INH INHALER INH ×3 (06:28→18:05)
[2024-08-22] MEDS: IPRATROPIUM BROMIDE 200 PUFF/INH INHALER INH ×3 (06:28→18:05)
[2024-08-22] MEDS: CYANOCOBALAMIN (VITAMIN B-12) 500 MCG TABLET 1000 MCG GT (08:24)
[2024-08-22] MEDS: DEXLANSOPRAZOLE 30 MG PO (08:25)
[2024-08-22] MEDS: MULTIVITAMIN W MINERALS 1 EACH TABLET GT (08:25)
[2024-08-22] MEDS: CARVEDILOL 3.125 MG TABLET GT (08:26)
[2024-08-22] MEDS: GUAIFENESIN GT (08:26)
[2024-08-22] MEDS: ACETAMINOPHEN 325 MG TABLET 650 MG GT (08:26)
[2024-08-22] MEDS: DEXTROMETHORPHAN GT (08:26)
[2024-08-22] MEDS: PHENYLEPHRINE GT (08:26)
--- NOTE | 2024-08-22 11:43 | PD.SAPROG ---
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 (3) Chronic respiratory failure, unspecified whether with hypoxia or hypercapnia: Status: Chronic (4) Hyperlipidemia, unspecified: Status: Chronic (5) Tracheostomy status: Status: Chronic (6) Chronic atrial fibrillation: Status: Chronic SUBJECTIVE Fever:: none GI:: none Shortness of Breath:: none Pain:: none OBJECTIVE Most recent vital signs: Last Vital Signs Temp 97.8 F 08/22/24 06:00 Pulse 87 08/22/24 08:26 Resp 18 08/22/24 06:28 BP 138/76 H 08/22/24 08:26 Pulse Ox 98 08/22/24 06:28 O2 Del Method Blow-by 08/22/24 06:00 O2 Flow Rate 6 08/22/24 06:28 FiO2 28 08/22/24 06:28 Neurological:: PVS Speech:: none Answers questions:: no Respiratory:: lungs clear Cardiovascular: irregular Abdomen: soft and nontender Extremities:: deformities (Spastic contractures of extremities) Decubitus:: none Tracheostomy:: to blow by Feeding per:: G tube Complaints:: none ASSESSMENT & PLAN Assessment: Pt remains essentially PVS for years. Prognosis for independent living is poor. No pain/ discomfort. Tolerates feeding. No new issues. VSS Plan: Current treatment reviewed and continued
[2024-08-22] MEDS: ATORVASTATIN 40 MG TABLET GT (20:48)
[2024-08-22] MEDS: INSULIN GLARGINE 100 UNIT/ML INSULN.PEN 30 UNIT SC (21:46)
[2024-08-23] VITALS (9 sets, daily range): BP systolic 98–132; BP diastolic 47–82; PULSE 55–78; RESP 18–22; TEMP 36.2–36.7; O2SAT 96–99
[2024-08-23] MEDS: IPRATROPIUM BROMIDE 200 PUFF/INH INHALER INH ×4 (06:45→16:40)
[2024-08-23] MEDS: ALBUTEROL INHALER 200 PUFF/INH INHALER INH ×4 (06:45→16:40)
[2024-08-23] MEDS: DEXLANSOPRAZOLE 30 MG PO (08:42)
[2024-08-23] MEDS: CYANOCOBALAMIN (VITAMIN B-12) 500 MCG TABLET 1000 MCG GT (08:42)
[2024-08-23] MEDS: MULTIVITAMIN W MINERALS 1 EACH TABLET GT (08:42)
[2024-08-23] MEDS: ATORVASTATIN 40 MG TABLET GT (20:00)
[2024-08-23] MEDS: ACETAMINOPHEN 325 MG TABLET 650 MG GT (20:29)
[2024-08-23] MEDS: INSULIN GLARGINE 100 UNIT/ML INSULN.PEN 30 UNIT SC (20:29)
[2024-08-24] VITALS: BP 93/59; PULSE 81; RESP 20; TEMP 36.3
[2024-08-24] MEDS: ALBUTEROL INHALER 200 PUFF/INH INHALER INH ×4 (00:01→19:20)
[2024-08-24] MEDS: IPRATROPIUM BROMIDE 200 PUFF/INH INHALER INH ×4 (00:01→19:20)
[2024-08-24 05:55] VITALS: PULSE 60; PULSE 62; RESP 16; O2SAT 98; O2SAT 99
[2024-08-24 06:00] VITALS: BP 119/74; PULSE 71; RESP 20; TEMP 36.1; O2SAT 99
[2024-08-24 08:53] VITALS: BP 95/60; PULSE 53
[2024-08-24] MEDS: DEXLANSOPRAZOLE 30 MG PO (08:53)
[2024-08-24] MEDS: MULTIVITAMIN W MINERALS 1 EACH TABLET GT (08:53)
[2024-08-24] MEDS: CYANOCOBALAMIN (VITAMIN B-12) 500 MCG TABLET 1000 MCG GT (08:53)
[2024-08-24 19:20] VITALS: PULSE 68; RESP 16; RESP 20; O2SAT 97; O2SAT 98
[2024-08-24] MEDS: ACETAMINOPHEN 325 MG TABLET 650 MG GT (20:25)
[2024-08-24] MEDS: ATORVASTATIN 40 MG TABLET GT (20:28)
[2024-08-24] MEDS: INSULIN GLARGINE 100 UNIT/ML INSULN.PEN 30 UNIT SC (20:29)
[2024-08-25] VITALS (7 sets, daily range): BP systolic 96–130; BP diastolic 58–81; PULSE 60–80; RESP 16–20; TEMP 36.1; O2SAT 95–100
[2024-08-25] MEDS: IPRATROPIUM BROMIDE 200 PUFF/INH INHALER INH ×4 (00:12→18:19)
[2024-08-25] MEDS: ALBUTEROL INHALER 200 PUFF/INH INHALER INH ×4 (00:12→18:19)
[2024-08-25] MEDS: DEXLANSOPRAZOLE 30 MG PO (08:42)
[2024-08-25] MEDS: CARVEDILOL 3.125 MG TABLET GT (08:42)
[2024-08-25] MEDS: MULTIVITAMIN W MINERALS 1 EACH TABLET GT (08:42)
[2024-08-25] MEDS: CYANOCOBALAMIN (VITAMIN B-12) 500 MCG TABLET 1000 MCG GT (08:42)
[2024-08-25] MEDS: GUAIFENESIN GT (12:34)
[2024-08-25] MEDS: ACETAMINOPHEN 325 MG TABLET 650 MG GT (12:34)
[2024-08-25] MEDS: DEXTROMETHORPHAN GT (12:34)
[2024-08-25] MEDS: PHENYLEPHRINE GT (12:34)
--- NOTE | 2024-08-25 15:36 | PC.SS ---
Room Visit: Resident remains in current care with no changes in care or condition. Remains on blow by with trach in place and GT for medication and nutrition. Resident is unable to make needs known, resident is represented by his son. Resident will remain in current care and will continue to have all subacute care needs met by staff. No changes in mood and behavior.
[2024-08-25] MEDS: INSULIN GLARGINE 100 UNIT/ML INSULN.PEN 30 UNIT SC (20:44)
[2024-08-25] MEDS: ATORVASTATIN 40 MG TABLET GT (20:45)
[2024-08-26] VITALS (9 sets, daily range): BP systolic 101–126; BP diastolic 54–85; PULSE 51–89; RESP 16–20; TEMP 36–36.4; O2SAT 94–98
[2024-08-26] MEDS: ALBUTEROL INHALER 200 PUFF/INH INHALER INH ×4 (00:23→19:30)
[2024-08-26] MEDS: IPRATROPIUM BROMIDE 200 PUFF/INH INHALER INH ×4 (00:23→19:30)
[2024-08-26] MEDS: CARVEDILOL 3.125 MG TABLET GT (09:27)
[2024-08-26] MEDS: CYANOCOBALAMIN (VITAMIN B-12) 500 MCG TABLET 1000 MCG GT (09:28)
[2024-08-26] MEDS: DEXLANSOPRAZOLE 30 MG PO (09:28)
[2024-08-26] MEDS: MULTIVITAMIN W MINERALS 1 EACH TABLET GT (09:28)
--- NOTE | 2024-08-26 18:50 | PD.SAPROG ---
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 (3) Chronic respiratory failure, unspecified whether with hypoxia or hypercapnia: Status: Chronic (4) Hyperlipidemia, unspecified: Status: Chronic (5) Tracheostomy status: Status: Chronic (6) Chronic atrial fibrillation: Status: Chronic SUBJECTIVE Fever:: none GI:: none Shortness of Breath:: none Pain:: none OBJECTIVE Most recent vital signs: Last Vital Signs Temp 97.0 F 08/28/24 06:00 Pulse 71 08/28/24 16:32 Resp 18 08/28/24 16:32 BP 101/71 08/28/24 09:13 Pulse Ox 97 08/28/24 16:32 O2 Del Method Blow-by 08/28/24 06:00 O2 Flow Rate 6 08/28/24 16:32 FiO2 28 08/28/24 16:32 Neurological:: PVS Speech:: none Answers questions:: no Respiratory:: lungs clear Cardiovascular: irregular Abdomen: soft and nontender Extremities:: deformities (Spastic contractures of extremities) Decubitus:: none Tracheostomy:: to blow by Feeding per:: G tube Complaints:: none ASSESSMENT & PLAN Assessment: Pt remains essentially PVS for years. Prognosis for independent living is poor. No pain/ discomfort. Tolerates feeding. No new issues. VSS Plan: Current treatment reviewed and continued
[2024-08-26] MEDS: ATORVASTATIN 40 MG TABLET GT (21:00)
[2024-08-26] MEDS: INSULIN GLARGINE 100 UNIT/ML INSULN.PEN 30 UNIT SC (21:34)
[2024-08-27] VITALS (9 sets, daily range): BP systolic 110–139; BP diastolic 62–79; PULSE 62–65; RESP 17–20; TEMP 36–36.9; O2SAT 97–98
[2024-08-27] MEDS: IPRATROPIUM BROMIDE 200 PUFF/INH INHALER INH ×4 (00:55→17:16)
[2024-08-27] MEDS: ALBUTEROL INHALER 200 PUFF/INH INHALER INH ×4 (00:55→17:16)
[2024-08-27] MEDS: CARVEDILOL 3.125 MG TABLET GT (08:33)
[2024-08-27] MEDS: CYANOCOBALAMIN (VITAMIN B-12) 500 MCG TABLET 1000 MCG GT (08:33)
[2024-08-27] MEDS: MULTIVITAMIN W MINERALS 1 EACH TABLET GT (08:34)
[2024-08-27] MEDS: DEXLANSOPRAZOLE 30 MG PO (08:34)
[2024-08-27] MEDS: ATORVASTATIN 40 MG TABLET GT (21:25)
[2024-08-27] MEDS: INSULIN GLARGINE 100 UNIT/ML INSULN.PEN 30 UNIT SC (21:33)
[2024-08-28] VITALS (7 sets, daily range): BP systolic 101–123; BP diastolic 58–80; PULSE 62–81; RESP 18–20; TEMP 36.1; O2SAT 96–98; BMI 23.1
[2024-08-28] MEDS: ALBUTEROL INHALER 200 PUFF/INH INHALER INH ×4 (00:20→16:32)
[2024-08-28] MEDS: IPRATROPIUM BROMIDE 200 PUFF/INH INHALER INH ×4 (00:20→16:32)
[2024-08-28] MEDS: MULTIVITAMIN W MINERALS 1 EACH TABLET GT (09:13)
[2024-08-28] MEDS: CARVEDILOL 3.125 MG TABLET GT (09:13)
[2024-08-28] MEDS: CYANOCOBALAMIN (VITAMIN B-12) 500 MCG TABLET 1000 MCG GT (09:13)
[2024-08-28] MEDS: DEXLANSOPRAZOLE 30 MG PO (09:13)
[2024-08-28] MEDS: ATORVASTATIN 40 MG TABLET GT (20:33)
[2024-08-28] MEDS: INSULIN GLARGINE 100 UNIT/ML INSULN.PEN 30 UNIT SC (21:22)
[2024-08-29] VITALS (9 sets, daily range): BP systolic 106–130; BP diastolic 60–86; PULSE 59–80; RESP 17–20; TEMP 36.1–36.3; O2SAT 96–99
[2024-08-29] MEDS: IPRATROPIUM BROMIDE 200 PUFF/INH INHALER INH ×4 (01:00→19:30)
[2024-08-29] MEDS: ALBUTEROL INHALER 200 PUFF/INH INHALER INH ×4 (01:00→19:30)
[2024-08-29] MEDS: DEXTROMETHORPHAN GT (09:09)
[2024-08-29] MEDS: CARVEDILOL 3.125 MG TABLET GT (09:09)
[2024-08-29] MEDS: PHENYLEPHRINE GT (09:09)
[2024-08-29] MEDS: GUAIFENESIN GT (09:09)
[2024-08-29] MEDS: DEXLANSOPRAZOLE 30 MG PO (09:09)
[2024-08-29] MEDS: MULTIVITAMIN W MINERALS 1 EACH TABLET GT (09:09)
[2024-08-29] MEDS: ACETAMINOPHEN 325 MG TABLET 650 MG GT (09:09)
[2024-08-29] MEDS: CYANOCOBALAMIN (VITAMIN B-12) 500 MCG TABLET 1000 MCG GT (09:09)
--- NOTE | 2024-08-29 16:50 | PD.SAPROG ---
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 (3) Chronic respiratory failure, unspecified whether with hypoxia or hypercapnia: Status: Chronic (4) Hyperlipidemia, unspecified: Status: Chronic (5) Tracheostomy status: Status: Chronic (6) Chronic atrial fibrillation: Status: Chronic SUBJECTIVE Fever:: none GI:: none Shortness of Breath:: none Pain:: none OBJECTIVE Most recent vital signs: Last Vital Signs Temp 97.4 F 08/29/24 11:44 Pulse 66 08/29/24 12:14 Resp 17 08/29/24 12:14 BP 113/65 08/29/24 11:44 Pulse Ox 99 08/29/24 12:14 O2 Del Method Blow-by 08/29/24 06:00 O2 Flow Rate 6 08/29/24 12:14 FiO2 28 08/29/24 12:14 Neurological:: PVS Speech:: none Answers questions:: no Respiratory:: lungs clear Cardiovascular: irregular Abdomen: soft and nontender Extremities:: deformities (Spastic contractures of extremities) Decubitus:: none Tracheostomy:: to blow by Feeding per:: G tube Complaints:: none ASSESSMENT & PLAN Assessment: Pt remains essentially PVS for years. Prognosis for independent living is poor. No pain/ discomfort. Tolerates feeding. No new issues. VSS Plan: Current treatment reviewed and continued
[2024-08-29] MEDS: ATORVASTATIN 40 MG TABLET GT (21:16)
[2024-08-29] MEDS: INSULIN GLARGINE 100 UNIT/ML INSULN.PEN 30 UNIT SC (21:26)
[2024-08-30] VITALS (8 sets, daily range): BP systolic 104–124; BP diastolic 56–64; PULSE 61–80; RESP 18–20; TEMP 36.1–36.7; O2SAT 97–99
[2024-08-30] MEDS: ALBUTEROL INHALER 200 PUFF/INH INHALER INH ×4 (00:50→18:25)
[2024-08-30] MEDS: IPRATROPIUM BROMIDE 200 PUFF/INH INHALER INH ×4 (00:50→18:25)
[2024-08-30 07:47] LABS: Basophils % (Auto) 1 % (0-2.5); Eosinophils # (Auto) 0.1 Thou/mm3 (0.0-0.5); Eosinophils % (Auto) 3 % (0-10); Hematocrit 34.9 % (41.0-53.0); Hemoglobin 11.7 g/dL (13.5-16.0); Immature Granulocytes % (Auto) 0 % (0-0); Immature Granulocytes Auto 0.01 Thou/mm3 (0.00-0.00); Lymphocytes % (Auto) 25 % (10-50); Mean Corpuscular HGB Conc 33.5 g/dl (31.0-37.0); Mean Corpuscular Hemoglobin 29.8 pg (25.0-35.0); Mean Corpuscular Volume 89 fL (80-100); Monocytes # (Auto) 0.5 Thou/mm3 (0.0-0.8); Monocytes % (Auto) 12 % (0-12); Neutrophils # (Auto) 2.4 Thou/mm3 (1.8-7.7); Neutrophils % (Auto) 59 % (37-80); Nucleated Red Blood Cell % 0 /100 WBC (0); Platelet Count 151 Thou/mm3 (140-440); RDW Standard Deviation 54.2 fL (35.1-43.9); Red Blood Count 3.93 Miln/mm3 (4.50-5.90); White Blood Count 4.1 Thou/mm3 (3.8-10.6)
[2024-08-30] MEDS: CARVEDILOL 3.125 MG TABLET GT (08:17)
[2024-08-30] MEDS: MULTIVITAMIN W MINERALS 1 EACH TABLET GT (08:18)
[2024-08-30] MEDS: CYANOCOBALAMIN (VITAMIN B-12) 500 MCG TABLET 1000 MCG GT (08:18)
[2024-08-30] MEDS: DEXLANSOPRAZOLE 30 MG PO (08:18)
[2024-08-30 08:28] LABS: Alanine Aminotransferase 19 U/L (10-49); Albumin, Serum 3.5 gm/dL (3.4-4.8); Albumin/Globulin Ratio 1.3 (1.2-2.2); Alkaline Phosphatase 122 U/L (46-116); Anion Gap 8 (7-16); Aspartate Amino Transferase 17 U/L (0-34); BUN/Creatinine Ratio 26 Ratio (12-20); Bilirubin,Total 0.6 mg/dL (0.3-1.2); Blood Urea Nitrogen 13 mg/dL (9-23); Calcium 8.6 mg/dL (8.3-10.6); Carbon Dioxide 26.4 mMol/L (20.0-31.0); Cardiac Risk Estimate 3.6 RATIO (4.0-6.7); Chloride 101 mMol/L (98-107); Cholesterol 105 mg/dL (132-200); Creatinine (Component) 0.5 mg/dL (0.6-1.3); Estimated Creatinine Clearance 106.4 mL/min (>60); Globulin 2.8 gm/dL (2.3-3.5); Glucose 119 mg/dL (74-106); Glucose,Fasting 119 mg/dL (74-106); HDL Cholesterol 29 mg/dL (40-60); LDL Cholesterol,Calculated 36 mg/dL (0-130); Osmolality,Calculated 271 (275-295); Sodium 135 mMol/L (136-145); Total Protein 6.3 gm/dL (5.7-8.2); Triglycerides 200 mg/dL (30-150); eGFR > 60 See Note
--- NOTE | 2024-08-30 17:03 | PC.NURSE ---
Notified Dr Ramires of the lab results with Na+ level 135. On 400 ml minimum water flush q shift. No edema noted. On CMP every 6 months, order received from Dr Ramires to repeat CMP in 3 months.
[2024-08-30] MEDS: ATORVASTATIN 40 MG TABLET GT (21:14)
[2024-08-30] MEDS: INSULIN GLARGINE 100 UNIT/ML INSULN.PEN 30 UNIT SC (21:15)
[2024-08-31] VITALS (9 sets, daily range): BP systolic 104–128; BP diastolic 59–74; PULSE 45–83; RESP 16–20; TEMP 36.1–36.4; O2SAT 96–99
[2024-08-31] MEDS: IPRATROPIUM BROMIDE 200 PUFF/INH INHALER INH ×4 (01:40→19:50)
[2024-08-31] MEDS: ALBUTEROL INHALER 200 PUFF/INH INHALER INH ×4 (01:40→19:50)
[2024-08-31] MEDS: CARVEDILOL 3.125 MG TABLET GT (08:30)
[2024-08-31] MEDS: CYANOCOBALAMIN (VITAMIN B-12) 500 MCG TABLET 1000 MCG GT (08:32)
[2024-08-31] MEDS: MULTIVITAMIN W MINERALS 1 EACH TABLET GT (08:34)
[2024-08-31] MEDS: DEXLANSOPRAZOLE 30 MG PO (08:34)
[2024-08-31] MEDS: ACETAMINOPHEN 325 MG TABLET 650 MG GT (20:50)
[2024-08-31] MEDS: ATORVASTATIN 40 MG TABLET GT (21:12)
[2024-08-31] MEDS: INSULIN GLARGINE 100 UNIT/ML INSULN.PEN 30 UNIT SC (21:17)
[2024-09-01] VITALS (7 sets, daily range): BP systolic 90–127; BP diastolic 56–76; PULSE 53–69; RESP 18–20; TEMP 36.2–36.3; O2SAT 97–99
[2024-09-01] MEDS: ALBUTEROL INHALER 200 PUFF/INH INHALER INH ×4 (01:00→18:55)
[2024-09-01] MEDS: IPRATROPIUM BROMIDE 200 PUFF/INH INHALER INH ×4 (01:00→18:55)
[2024-09-01] MEDS: MULTIVITAMIN W MINERALS 1 EACH TABLET GT (08:26)
[2024-09-01] MEDS: CYANOCOBALAMIN (VITAMIN B-12) 500 MCG TABLET 1000 MCG GT (08:26)
[2024-09-01] MEDS: DEXLANSOPRAZOLE 30 MG PO (08:26)
[2024-09-01] MEDS: ACETAMINOPHEN 325 MG TABLET 650 MG GT (21:10)
[2024-09-01] MEDS: ATORVASTATIN 40 MG TABLET GT (21:33)
[2024-09-01] MEDS: INSULIN GLARGINE 100 UNIT/ML INSULN.PEN 30 UNIT SC (21:35)
[2024-09-02] VITALS (10 sets, daily range): BP systolic 94–126; BP diastolic 56–79; PULSE 57–76; RESP 17–22; TEMP 36.1–36.6; O2SAT 95–100
[2024-09-02] MEDS: ALBUTEROL INHALER 200 PUFF/INH INHALER INH ×4 (01:00→16:35)
[2024-09-02] MEDS: IPRATROPIUM BROMIDE 200 PUFF/INH INHALER INH ×3 (01:00→16:33)
[2024-09-02] MEDS: CARVEDILOL 3.125 MG TABLET GT (08:10)
[2024-09-02] MEDS: CYANOCOBALAMIN (VITAMIN B-12) 500 MCG TABLET 1000 MCG GT (08:10)
[2024-09-02] MEDS: DEXLANSOPRAZOLE 30 MG PO (08:10)
[2024-09-02] MEDS: MULTIVITAMIN W MINERALS 1 EACH TABLET GT (08:10)
[2024-09-02] MEDS: MAGNESIUM HYDROXIDE 30 ML ORAL SUSP ML GT (09:00)
--- NOTE | 2024-09-02 19:48 | PD.SAPROG ---
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 (3) Chronic respiratory failure, unspecified whether with hypoxia or hypercapnia: Status: Chronic (4) Hyperlipidemia, unspecified: Status: Chronic (5) Tracheostomy status: Status: Chronic (6) Chronic atrial fibrillation: Status: Chronic SUBJECTIVE Fever:: none GI:: none Shortness of Breath:: none Pain:: none OBJECTIVE Most recent vital signs: Last Vital Signs Temp 97.0 F 09/02/24 18:00 Pulse 62 09/02/24 18:00 Resp 22 H 09/02/24 18:00 BP 126/71 09/02/24 18:00 Pulse Ox 99 09/02/24 18:00 O2 Del Method Blow-by 09/02/24 06:00 O2 Flow Rate 6 09/02/24 16:34 FiO2 28 09/02/24 16:34 Neurological:: PVS Speech:: none Answers questions:: no Respiratory:: lungs clear Cardiovascular: irregular Abdomen: soft and nontender Extremities:: deformities (Spastic contractures of extremities) Decubitus:: none Tracheostomy:: to blow by Feeding per:: G tube Complaints:: none ASSESSMENT & PLAN Assessment: Pt remains essentially PVS for years. Prognosis for independent living is poor. No pain/ discomfort. Tolerates feeding. No new issues. VSS Plan: Current treatment reviewed and continued
[2024-09-02] MEDS: ACETAMINOPHEN 325 MG TABLET 650 MG GT (21:15)
[2024-09-02] MEDS: ATORVASTATIN 40 MG TABLET GT (21:18)
[2024-09-02] MEDS: INSULIN GLARGINE 100 UNIT/ML INSULN.PEN 30 UNIT SC (21:19)
[2024-09-02] MEDS: BISACODYL 10 MG SUPP.RECT PR (22:00)
[2024-09-03] VITALS (9 sets, daily range): BP systolic 103–127; BP diastolic 60–76; PULSE 55–77; RESP 17–20; TEMP 35.9–36.4; O2SAT 95–98
[2024-09-03] MEDS: IPRATROPIUM BROMIDE 200 PUFF/INH INHALER INH ×4 (04:10→19:50)
[2024-09-03] MEDS: ALBUTEROL INHALER 200 PUFF/INH INHALER INH ×4 (04:10→19:50)
[2024-09-03] MEDS: CARVEDILOL 3.125 MG TABLET GT (08:09)
[2024-09-03] MEDS: CYANOCOBALAMIN (VITAMIN B-12) 500 MCG TABLET 1000 MCG GT (08:10)
[2024-09-03] MEDS: DEXLANSOPRAZOLE 30 MG PO (08:10)
[2024-09-03] MEDS: MULTIVITAMIN W MINERALS 1 EACH TABLET GT (08:10)
[2024-09-03] MEDS: ATORVASTATIN 40 MG TABLET GT (20:45)
[2024-09-03] MEDS: ACETAMINOPHEN 325 MG TABLET 650 MG GT (20:45)
[2024-09-03] MEDS: INSULIN GLARGINE 100 UNIT/ML INSULN.PEN 30 UNIT SC (20:46)
[2024-09-04] VITALS (10 sets, daily range): BP systolic 98–125; BP diastolic 50–73; PULSE 50–85; RESP 16–20; TEMP 35.8–36.5; O2SAT 95–99
[2024-09-04] MEDS: ALBUTEROL INHALER 200 PUFF/INH INHALER INH ×4 (01:45→20:23)
[2024-09-04] MEDS: IPRATROPIUM BROMIDE 200 PUFF/INH INHALER INH ×4 (01:45→20:23)
[2024-09-04] MEDS: MULTIVITAMIN W MINERALS 1 EACH TABLET GT (08:09)
[2024-09-04] MEDS: DEXLANSOPRAZOLE 30 MG PO (08:09)
[2024-09-04] MEDS: CYANOCOBALAMIN (VITAMIN B-12) 500 MCG TABLET 1000 MCG GT (08:09)
[2024-09-04] MEDS: ATORVASTATIN 40 MG TABLET GT (21:41)
[2024-09-04] MEDS: INSULIN GLARGINE 100 UNIT/ML INSULN.PEN 30 UNIT SC (21:48)
[2024-09-05] VITALS (9 sets, daily range): BP systolic 94–151; BP diastolic 50–93; PULSE 54–76; RESP 16–18; TEMP 35.9–36.3; O2SAT 94–98
[2024-09-05] MEDS: IPRATROPIUM BROMIDE 200 PUFF/INH INHALER INH ×2 (01:00→07:04)
[2024-09-05] MEDS: ALBUTEROL INHALER 200 PUFF/INH INHALER INH ×3 (01:00→17:00)
[2024-09-05] MEDS: CYANOCOBALAMIN (VITAMIN B-12) 500 MCG TABLET 1000 MCG GT (08:10)
[2024-09-05] MEDS: CARVEDILOL 3.125 MG TABLET GT (08:10)
[2024-09-05] MEDS: DEXLANSOPRAZOLE 30 MG PO (08:10)
[2024-09-05] MEDS: MULTIVITAMIN W MINERALS 1 EACH TABLET GT (08:11)
[2024-09-05] MEDS: ACETAMINOPHEN 325 MG TABLET 650 MG GT (20:50)
[2024-09-05] MEDS: ATORVASTATIN 40 MG TABLET GT (21:04)
[2024-09-05] MEDS: INSULIN GLARGINE 100 UNIT/ML INSULN.PEN 30 UNIT SC (21:12)
[2024-09-06] VITALS (8 sets, daily range): BP systolic 104–136; BP diastolic 52–84; PULSE 44–80; RESP 16–20; TEMP 36.1–36.6; O2SAT 96–99
[2024-09-06] MEDS: ALBUTEROL INHALER 200 PUFF/INH INHALER INH ×4 (01:46→19:00)
[2024-09-06] MEDS: IPRATROPIUM BROMIDE 200 PUFF/INH INHALER INH ×4 (01:46→19:00)
[2024-09-06] MEDS: CARVEDILOL 3.125 MG TABLET GT (08:04)
[2024-09-06] MEDS: MULTIVITAMIN W MINERALS 1 EACH TABLET GT (08:04)
[2024-09-06] MEDS: CYANOCOBALAMIN (VITAMIN B-12) 500 MCG TABLET 1000 MCG GT (08:04)
[2024-09-06] MEDS: DEXLANSOPRAZOLE 30 MG PO (08:04)
--- NOTE | 2024-09-06 20:47 | PD.SAPROG ---
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 (3) Chronic respiratory failure, unspecified whether with hypoxia or hypercapnia: Status: Chronic (4) Hyperlipidemia, unspecified: Status: Chronic (5) Tracheostomy status: Status: Chronic (6) Chronic atrial fibrillation: Status: Chronic SUBJECTIVE Fever:: none GI:: none Shortness of Breath:: none Pain:: none OBJECTIVE Most recent vital signs: Last Vital Signs Temp 97.9 F 09/06/24 18:00 Pulse 64 09/06/24 18:00 Resp 20 09/06/24 18:00 BP 104/52 L 09/06/24 18:00 Pulse Ox 96 09/06/24 12:36 O2 Del Method Blow-by 09/06/24 06:00 O2 Flow Rate 6 09/06/24 12:36 FiO2 28 09/06/24 12:36 Neurological:: PVS Speech:: none Answers questions:: no Respiratory:: lungs clear Cardiovascular: irregular Abdomen: soft and nontender Extremities:: deformities (Spastic contractures of extremities) Decubitus:: none Tracheostomy:: to blow by Feeding per:: G tube Complaints:: none ASSESSMENT & PLAN Assessment: Pt remains essentially PVS for years. Prognosis for independent living is poor. No pain/ discomfort. Tolerates feeding. No new issues. VSS Plan: Current treatment reviewed and continued
[2024-09-06] MEDS: ATORVASTATIN 40 MG TABLET GT (21:05)
[2024-09-07] VITALS (9 sets, daily range): BP systolic 107–137; BP diastolic 67–81; PULSE 59–72; RESP 17–20; TEMP 36.1–36.3; O2SAT 96–99
[2024-09-07] MEDS: ALBUTEROL INHALER 200 PUFF/INH INHALER INH ×4 (00:50→18:00)
[2024-09-07] MEDS: IPRATROPIUM BROMIDE 200 PUFF/INH INHALER INH ×4 (00:50→18:00)
[2024-09-07] MEDS: CARVEDILOL 3.125 MG TABLET GT (08:53)
[2024-09-07] MEDS: MAGNESIUM HYDROXIDE 30 ML ORAL SUSP ML GT (08:54)
[2024-09-07] MEDS: CYANOCOBALAMIN (VITAMIN B-12) 500 MCG TABLET 1000 MCG GT (08:54)
[2024-09-07] MEDS: MULTIVITAMIN W MINERALS 1 EACH TABLET GT (08:54)
[2024-09-07] MEDS: DEXLANSOPRAZOLE 30 MG PO (08:54)
[2024-09-07] MEDS: ACETAMINOPHEN 325 MG TABLET 650 MG GT (21:20)
[2024-09-07] MEDS: ATORVASTATIN 40 MG TABLET GT (21:36)
[2024-09-07] MEDS: INSULIN GLARGINE 100 UNIT/ML INSULN.PEN 30 UNIT SC (22:05)
[2024-09-08] VITALS (9 sets, daily range): BP systolic 98–148; BP diastolic 60–76; PULSE 40–76; RESP 16–18; TEMP 35.9–36.9; O2SAT 95–99
[2024-09-08] MEDS: ALBUTEROL INHALER 200 PUFF/INH INHALER INH ×4 (00:55→19:00)
[2024-09-08] MEDS: IPRATROPIUM BROMIDE 200 PUFF/INH INHALER INH ×4 (00:55→19:00)
[2024-09-08] MEDS: CYANOCOBALAMIN (VITAMIN B-12) 500 MCG TABLET 1000 MCG GT (08:58)
[2024-09-08] MEDS: MULTIVITAMIN W MINERALS 1 EACH TABLET GT (08:59)
[2024-09-08] MEDS: DEXLANSOPRAZOLE 30 MG PO (08:59)
--- NOTE | 2024-09-08 12:33 | PC.SS ---
Room visit: Resident is laying in bed with head of the bed elevated with call light properly placed with no signs of distress. Resident is non verbal his decision maker is his son Colt Roy. Resident has no changes in care or condition he remains on blow by with trach in place and GT for medication and nutrition. He will remain in current care and will have all subacute care needs met by staff. This SSD will continue to make daily contact with resident and monitor for changes in mood and behavior.
[2024-09-08] MEDS: ATORVASTATIN 40 MG TABLET GT (21:26)
[2024-09-08] MEDS: INSULIN GLARGINE 100 UNIT/ML INSULN.PEN 30 UNIT SC (21:40)
[2024-09-09] VITALS (10 sets, daily range): BP systolic 130–149; BP diastolic 63–84; PULSE 58–101; RESP 18–20; TEMP 36.4–36.5; O2SAT 94–99
[2024-09-09] MEDS: IPRATROPIUM BROMIDE 200 PUFF/INH INHALER INH ×4 (01:33→19:05)
[2024-09-09] MEDS: ALBUTEROL INHALER 200 PUFF/INH INHALER INH ×4 (01:33→19:05)
[2024-09-09] MEDS: DEXLANSOPRAZOLE 30 MG PO (09:28)
[2024-09-09] MEDS: MULTIVITAMIN W MINERALS 1 EACH TABLET GT (09:28)
[2024-09-09] MEDS: CARVEDILOL 3.125 MG TABLET GT (09:28)
[2024-09-09] MEDS: CYANOCOBALAMIN (VITAMIN B-12) 500 MCG TABLET 1000 MCG GT (09:28)
[2024-09-09] MEDS: ACETAMINOPHEN 325 MG TABLET 650 MG GT (14:27)
[2024-09-09] MEDS: GUAIFENESIN GT (14:27)
[2024-09-09] MEDS: DEXTROMETHORPHAN GT (14:27)
[2024-09-09] MEDS: PHENYLEPHRINE GT (14:27)
--- NOTE | 2024-09-09 16:08 | PC.NURSE ---
Late entry for 09/08/24 Dr aRmires made rounds, no new orders made.
[2024-09-09] MEDS: ATORVASTATIN 40 MG TABLET GT (21:18)
[2024-09-09] MEDS: INSULIN GLARGINE 100 UNIT/ML INSULN.PEN 30 UNIT SC (21:18)
[2024-09-10] VITALS (9 sets, daily range): BP systolic 124–145; BP diastolic 71–86; PULSE 64–92; RESP 18–20; TEMP 36.1–36.4; O2SAT 96–99
[2024-09-10] MEDS: IPRATROPIUM BROMIDE 200 PUFF/INH INHALER INH ×4 (00:15→19:11)
[2024-09-10] MEDS: ALBUTEROL INHALER 200 PUFF/INH INHALER INH ×4 (00:15→19:11)
[2024-09-10] MEDS: CARVEDILOL 3.125 MG TABLET GT (08:04)
[2024-09-10] MEDS: CYANOCOBALAMIN (VITAMIN B-12) 500 MCG TABLET 1000 MCG GT (08:05)
[2024-09-10] MEDS: DEXLANSOPRAZOLE 30 MG PO (08:05)
[2024-09-10] MEDS: MULTIVITAMIN W MINERALS 1 EACH TABLET GT (08:05)
--- NOTE | 2024-09-10 09:49 | PD.SAPROG ---
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 (3) Chronic respiratory failure, unspecified whether with hypoxia or hypercapnia: Status: Chronic (4) Hyperlipidemia, unspecified: Status: Chronic (5) Tracheostomy status: Status: Chronic (6) Chronic atrial fibrillation: Status: Chronic SUBJECTIVE Fever:: none GI:: none Shortness of Breath:: none Pain:: none OBJECTIVE Most recent vital signs: Last Vital Signs Temp 97.5 F 09/10/24 06:00 Pulse 78 09/10/24 08:04 Resp 18 09/10/24 06:38 BP 124/86 H 09/10/24 08:04 Pulse Ox 97 09/10/24 06:38 O2 Del Method Blow-by 09/10/24 06:00 O2 Flow Rate 6 09/10/24 06:38 FiO2 28 09/10/24 06:38 Neurological:: PVS Speech:: none Answers questions:: no Respiratory:: lungs clear Cardiovascular: irregular Abdomen: soft and nontender Extremities:: deformities (Spastic contractures of extremities) Decubitus:: none Tracheostomy:: to blow by Feeding per:: G tube Complaints:: none ASSESSMENT & PLAN Assessment: Pt remains essentially PVS for years. Prognosis for independent living is poor. No pain/ discomfort. Tolerates feeding. No new issues. VSS Plan: Current treatment reviewed and continued
[2024-09-10] MEDS: INSULIN GLARGINE 100 UNIT/ML INSULN.PEN 30 UNIT SC (20:46)
[2024-09-10] MEDS: ATORVASTATIN 40 MG TABLET GT (20:46)
[2024-09-11] VITALS (9 sets, daily range): BP systolic 107–132; BP diastolic 57–84; PULSE 44–93; RESP 14–20; TEMP 35.9–36.4; O2SAT 96–99; BMI 23.3
[2024-09-11] MEDS: IPRATROPIUM BROMIDE 200 PUFF/INH INHALER INH ×4 (01:15→18:30)
[2024-09-11] MEDS: ALBUTEROL INHALER 200 PUFF/INH INHALER INH ×4 (01:15→18:30)
[2024-09-11] MEDS: CYANOCOBALAMIN (VITAMIN B-12) 500 MCG TABLET 1000 MCG GT (08:01)
[2024-09-11] MEDS: DEXLANSOPRAZOLE 30 MG PO (08:02)
[2024-09-11] MEDS: MULTIVITAMIN W MINERALS 1 EACH TABLET GT (08:02)
[2024-09-11] MEDS: CARVEDILOL 3.125 MG TABLET GT (08:02)
[2024-09-11] MEDS: ATORVASTATIN 40 MG TABLET GT (21:13)
[2024-09-11] MEDS: INSULIN GLARGINE 100 UNIT/ML INSULN.PEN 30 UNIT SC (21:14)
[2024-09-12] VITALS (10 sets, daily range): BP systolic 106–113; BP diastolic 67–75; PULSE 45–82; RESP 16–20; TEMP 36.1–36.7; O2SAT 95–100
[2024-09-12] MEDS: ALBUTEROL INHALER 200 PUFF/INH INHALER INH ×4 (01:03→19:00)
[2024-09-12] MEDS: IPRATROPIUM BROMIDE 200 PUFF/INH INHALER INH ×4 (01:03→19:00)
[2024-09-12] MEDS: CARVEDILOL 3.125 MG TABLET GT (08:08)
[2024-09-12] MEDS: DEXLANSOPRAZOLE 30 MG PO (08:09)
[2024-09-12] MEDS: CYANOCOBALAMIN (VITAMIN B-12) 500 MCG TABLET 1000 MCG GT (08:09)
[2024-09-12] MEDS: MULTIVITAMIN W MINERALS 1 EACH TABLET GT (08:10)
[2024-09-12] MEDS: ATORVASTATIN 40 MG TABLET GT (20:33)
[2024-09-12] MEDS: INSULIN GLARGINE 100 UNIT/ML INSULN.PEN 30 UNIT SC (21:17)
[2024-09-13] VITALS (9 sets, daily range): BP systolic 90–117; BP diastolic 52–72; PULSE 52–78; RESP 16–20; TEMP 36.1–36.3; O2SAT 96–100
[2024-09-13] MEDS: IPRATROPIUM BROMIDE 200 PUFF/INH INHALER INH ×4 (00:20→17:10)
[2024-09-13] MEDS: ALBUTEROL INHALER 200 PUFF/INH INHALER INH ×4 (00:20→17:10)
[2024-09-13] MEDS: DEXLANSOPRAZOLE 30 MG PO (09:14)
[2024-09-13] MEDS: MULTIVITAMIN W MINERALS 1 EACH TABLET GT (09:14)
[2024-09-13] MEDS: CYANOCOBALAMIN (VITAMIN B-12) 500 MCG TABLET 1000 MCG GT (09:14)
[2024-09-13] MEDS: ACETAMINOPHEN 325 MG TABLET 650 MG GT (21:15)
[2024-09-13] MEDS: ATORVASTATIN 40 MG TABLET GT (21:15)
[2024-09-13] MEDS: INSULIN GLARGINE 100 UNIT/ML INSULN.PEN 30 UNIT SC (21:16)
[2024-09-14] VITALS (9 sets, daily range): BP systolic 103–127; BP diastolic 55–69; PULSE 53–69; RESP 16–20; TEMP 36.1–36.6; O2SAT 95–99
[2024-09-14] MEDS: IPRATROPIUM BROMIDE 200 PUFF/INH INHALER INH ×4 (01:33→18:26)
[2024-09-14] MEDS: ALBUTEROL INHALER 200 PUFF/INH INHALER INH ×4 (01:33→18:26)
[2024-09-14] MEDS: CYANOCOBALAMIN (VITAMIN B-12) 500 MCG TABLET 1000 MCG GT (08:08)
[2024-09-14] MEDS: CARVEDILOL 3.125 MG TABLET GT (08:08)
[2024-09-14] MEDS: MULTIVITAMIN W MINERALS 1 EACH TABLET GT (08:09)
[2024-09-14] MEDS: DEXLANSOPRAZOLE 30 MG PO (08:09)
--- NOTE | 2024-09-14 19:58 | PD.SAPROG ---
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 (3) Chronic respiratory failure, unspecified whether with hypoxia or hypercapnia: Status: Chronic (4) Hyperlipidemia, unspecified: Status: Chronic (5) Tracheostomy status: Status: Chronic (6) Chronic atrial fibrillation: Status: Chronic SUBJECTIVE Fever:: none GI:: none Shortness of Breath:: none Pain:: none OBJECTIVE Most recent vital signs: Last Vital Signs Temp 97.8 F 09/14/24 17:57 Pulse 63 09/14/24 17:57 Resp 18 09/14/24 17:57 BP 127/68 09/14/24 17:57 Pulse Ox 95 09/14/24 13:00 O2 Del Method Blow-by 09/14/24 06:00 O2 Flow Rate 6 09/14/24 13:00 FiO2 28 09/14/24 13:00 Neurological:: PVS Speech:: none Answers questions:: no Respiratory:: lungs clear Cardiovascular: irregular Abdomen: soft and nontender Extremities:: deformities (Spastic contractures of extremities) Decubitus:: none Tracheostomy:: to blow by Feeding per:: G tube Complaints:: none ASSESSMENT & PLAN Assessment: Pt remains essentially PVS for years. Prognosis for independent living is poor. No pain/ discomfort. Tolerates feeding. No new issues. VSS Plan: Current treatment reviewed and continued
[2024-09-14] MEDS: ATORVASTATIN 40 MG TABLET GT (21:11)
[2024-09-14] MEDS: INSULIN GLARGINE 100 UNIT/ML INSULN.PEN 30 UNIT SC (21:11)
[2024-09-14] MEDS: ACETAMINOPHEN 325 MG TABLET 650 MG GT (21:30)
[2024-09-15] VITALS (9 sets, daily range): BP systolic 102–119; BP diastolic 54–77; PULSE 58–84; RESP 16–21; TEMP 36.1–36.4; O2SAT 94–98
[2024-09-15] MEDS: IPRATROPIUM BROMIDE 200 PUFF/INH INHALER INH ×3 (00:22→18:28)
[2024-09-15] MEDS: ALBUTEROL INHALER 200 PUFF/INH INHALER INH ×4 (00:22→18:28)
[2024-09-15] MEDS: CYANOCOBALAMIN (VITAMIN B-12) 500 MCG TABLET 1000 MCG GT (08:01)
[2024-09-15] MEDS: CARVEDILOL 3.125 MG TABLET GT (08:01)
[2024-09-15] MEDS: DEXLANSOPRAZOLE 30 MG PO (08:02)
[2024-09-15] MEDS: MULTIVITAMIN W MINERALS 1 EACH TABLET GT (08:02)
[2024-09-15] MEDS: ATORVASTATIN 40 MG TABLET GT (21:10)
[2024-09-15] MEDS: ACETAMINOPHEN 325 MG TABLET 650 MG GT (21:10)
[2024-09-15] MEDS: INSULIN GLARGINE 100 UNIT/ML INSULN.PEN 30 UNIT SC (21:12)
[2024-09-16] VITALS (8 sets, daily range): BP systolic 100–136; BP diastolic 55–84; PULSE 61–96; RESP 18–22; TEMP 36.1–36.5; O2SAT 97–99
[2024-09-16] MEDS: ALBUTEROL INHALER 200 PUFF/INH INHALER INH ×4 (00:10→19:15)
[2024-09-16] MEDS: IPRATROPIUM BROMIDE 200 PUFF/INH INHALER INH ×4 (00:10→19:15)
[2024-09-16] MEDS: CARVEDILOL 3.125 MG TABLET GT (08:02)
[2024-09-16] MEDS: MULTIVITAMIN W MINERALS 1 EACH TABLET GT (08:03)
[2024-09-16] MEDS: DEXLANSOPRAZOLE 30 MG PO (08:03)
[2024-09-16] MEDS: CYANOCOBALAMIN (VITAMIN B-12) 500 MCG TABLET 1000 MCG GT (08:03)
[2024-09-16] MEDS: ACETAMINOPHEN 325 MG TABLET 650 MG GT (20:40)
[2024-09-16] MEDS: ATORVASTATIN 40 MG TABLET GT (20:41)
[2024-09-16] MEDS: INSULIN GLARGINE 100 UNIT/ML INSULN.PEN 30 UNIT SC (20:44)
[2024-09-17] VITALS (9 sets, daily range): BP systolic 94–103; BP diastolic 55–77; PULSE 47–84; RESP 16–19; TEMP 36.2–36.4; O2SAT 94–98
[2024-09-17] MEDS: ALBUTEROL INHALER 200 PUFF/INH INHALER INH ×4 (02:04→19:40)
[2024-09-17] MEDS: IPRATROPIUM BROMIDE 200 PUFF/INH INHALER INH ×4 (02:04→19:40)
[2024-09-17] MEDS: CARVEDILOL 3.125 MG TABLET GT (08:39)
[2024-09-17] MEDS: MULTIVITAMIN W MINERALS 1 EACH TABLET GT (08:40)
[2024-09-17] MEDS: CYANOCOBALAMIN (VITAMIN B-12) 500 MCG TABLET 1000 MCG GT (08:40)
[2024-09-17] MEDS: DEXLANSOPRAZOLE 30 MG PO (08:40)
[2024-09-17] MEDS: ATORVASTATIN 40 MG TABLET GT (20:27)
[2024-09-17] MEDS: INSULIN GLARGINE 100 UNIT/ML INSULN.PEN 30 UNIT SC (20:27)
[2024-09-18] VITALS (11 sets, daily range): BP systolic 109–131; BP diastolic 59–88; PULSE 55–94; RESP 16–32; TEMP 35.9–37.2; O2SAT 98–100
[2024-09-18] MEDS: ALBUTEROL INHALER 200 PUFF/INH INHALER INH ×4 (00:25→19:10)
[2024-09-18] MEDS: IPRATROPIUM BROMIDE 200 PUFF/INH INHALER INH ×4 (00:25→19:10)
[2024-09-18] MEDS: IPRATROPIUM/ALBUTEROL 3 ML AMPUL.NEB INH (00:45)
[2024-09-18] MEDS: ACETAMINOPHEN 325 MG TABLET 650 MG GT (01:09)
[2024-09-18] MEDS: CARVEDILOL 3.125 MG TABLET GT (08:11)
[2024-09-18] MEDS: CYANOCOBALAMIN (VITAMIN B-12) 500 MCG TABLET 1000 MCG GT (08:12)
[2024-09-18] MEDS: DEXLANSOPRAZOLE 30 MG PO (08:12)
[2024-09-18] MEDS: MULTIVITAMIN W MINERALS 1 EACH TABLET GT (08:13)
--- NOTE | 2024-09-18 11:21 | PC.NURSE ---
Late entry for event happening this am at 0830. During report RN Falguni hand off report regarding resident having respiratory distress during part of her shift after trach change. This am at about 0830 resident continue to having respiratory distress, with saturation to the 60s occasionally 50s. RT bagged resident until saturation was able tpo to come up to the upper 90s, resident worj of breathing was labored and wheezing RT Rodri offered a brathing tX. Seemed to help for the moment. IN about 10 minutes resident had next episode of di sating to the 50s. disconnected from blow by and manually bagged him. RT Etta and Rodri at bedside. Building Performance Specialist called MD. Orders to place resident on mechanical Vent for support. RT's carried out orders. Resident is now breathing WNL. Family notified.
--- NOTE | 2024-09-18 12:13 | PC.SS ---
Resident seen by Prototype Deicer Assembler/ Dr. Smith for routine toe nail trim. Resident tolerated treatment well, see physicians notes for recommendations and any new orders
--- NOTE | 2024-09-18 13:04 | PC.NURSE ---
At approximately 0830, patient continues to have respiratory distress (since NOC shift), satting at 67-77% with labored breathing. Notified RT on duty and RT bagged patient until saturation reached upper 90s. Patient also noted with wheezing. RT administered a breathing tx. Seemed to help for the moment. In approximately 10 minutes, patient had next episode of de-saturation in the 50s. RN on duty disconnected patient from blow by and manually bagged patient. RT Tom at bedside. Labor Trainer called . Orders to place resident on mechanical Vent for support. RT's carried out orders. Resident is currently breathing WNL. Will continue to monitor patient during shift for any significant changes.
--- NOTE | 2024-09-18 15:28 | XR_ITS ---
Examination: AP chest single view Technique one AP portable semiupright chest single view Exam date and time: September 18, 2024 1625 hours Comparison October 26, 2022 INDICATIONS: Respiratory distress difficulty breathing today. FINDINGS: Mild enlargement cardiac contour Moderate vascular congestion Suspicious for early pneumonia in the right upper lobe Tracheostomy tube tip 7.3 cm above carlo IMPRESSION: Suspicious for early pneumonia right upper lobe
--- NOTE | 2024-09-18 15:33 | PC.NURSE ---
Addendum entered by Tammy Jacobson RN 09/18/24 17:29: Received results chest XRay, blood gases, Previously ordered and CBC. Notified MD. orders to decrease FIO2 from 30% to 25%. Regarding CXR did not received further orders at this time. VS remain stable 98.4, HR 55, (normal trend for this patient) 21RR, 120/88. O2 saturation 99. Resident had a di sating episode during Xray when laying flat. We will continue to monitor. closely. Original Note: Resident having respiratory distress. Saturation decreased to 50s. able to recover from this episode. Notified MD. Order for Ches X-Ray urgent.
[2024-09-18 16:14] LABS: Basophils % (Auto) 1 % (0-2.5); Eosinophils # (Auto) 0.2 Thou/mm3 (0.0-0.5); Eosinophils % (Auto) 4 % (0-10); Hematocrit 39.9 % (41.0-53.0); Hemoglobin 13.5 g/dL (13.5-16.0); Immature Granulocytes % (Auto) 0 % (0-0); Immature Granulocytes Auto 0.01 Thou/mm3 (0.00-0.00); Lymphocytes # (Auto) 1.4 Thou/mm3 (1.0-4.8); Lymphocytes % (Auto) 27 % (10-50); Mean Corpuscular HGB Conc 33.8 g/dl (31.0-37.0); Mean Corpuscular Hemoglobin 30.6 pg (25.0-35.0); Mean Corpuscular Volume 91 fL (80-100); Monocytes # (Auto) 0.6 Thou/mm3 (0.0-0.8); Monocytes % (Auto) 12 % (0-12); Neutrophils # (Auto) 2.8 Thou/mm3 (1.8-7.7); Neutrophils % (Auto) 56 % (37-80); Nucleated Red Blood Cell % 0 /100 WBC (0); Platelet Count 150 Thou/mm3 (140-440); Red Blood Count 4.41 Miln/mm3 (4.50-5.90)
[2024-09-18 16:50] LABS: Base Excess 4 (-3-3); HCO3 29 mEq/L (20-26); Inspired Oxygen, FIO2 30 %; O2 Saturation 100 % (91-98); PCO2 44 mmHg (32.0-48.0); PO2 135 mmHg (83-108); pH, Arterial 7.43 (7.35-7.45)
[2024-09-18 16:52] LABS: Allen Test Not Performed; Puncture Site Right Radial
--- NOTE | 2024-09-18 18:19 | PC.NURSE ---
Order to start resident on Mucomyst per RT x 3 days. Notified RT Ivon from [facility] and Etta LOWERY.
[2024-09-18] MEDS: ATORVASTATIN 40 MG TABLET GT (20:10)
[2024-09-18] MEDS: INSULIN GLARGINE 100 UNIT/ML INSULN.PEN 30 UNIT SC (21:06)
--- NOTE | 2024-09-18 22:15 | PD.SAPROG ---
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 (3) Chronic respiratory failure, unspecified whether with hypoxia or hypercapnia: Status: Chronic (4) Hyperlipidemia, unspecified: Status: Chronic (5) Tracheostomy status: Status: Chronic Assessment & Plan: Pt had episodic severe desaturation events and put on ventilator support to tide over the crisis (6) Chronic atrial fibrillation: Status: Chronic SUBJECTIVE Fever:: none GI:: none Shortness of Breath:: none Pain:: none OBJECTIVE Most recent vital signs: Last Vital Signs Temp 98.4 F 09/18/24 17:27 Pulse 66 09/18/24 17:27 Resp 21 H 09/18/24 17:27 BP 120/88 H 09/18/24 17:27 Pulse Ox 100 09/18/24 17:27 O2 Del Method Blow-by 09/18/24 17:27 O2 Flow Rate 6 09/18/24 17:27 FiO2 30 09/18/24 17:27 Neurological:: PVS Speech:: none Answers questions:: no Respiratory:: lungs clear Cardiovascular: irregular Abdomen: soft and nontender Extremities:: deformities (Spastic contractures of extremities) Decubitus:: none Tracheostomy:: to blow by Feeding per:: G tube Complaints:: none ASSESSMENT & PLAN Assessment: Pt remains essentially PVS for years. Prognosis for independent living is poor. No pain/ discomfort. Tolerates feeding. Pt started on Ventilator support because of acute drop in O2 saturatios and breathing pattern VSS Plan: Current treatment reviewed and continued
[2024-09-19] VITALS (10 sets, daily range): BP systolic 106–126; BP diastolic 59–79; PULSE 52–75; RESP 17–24; TEMP 36.6; O2SAT 97–100
[2024-09-19] MEDS: ALBUTEROL INHALER 200 PUFF/INH INHALER INH ×4 (00:30→19:25)
[2024-09-19] MEDS: IPRATROPIUM BROMIDE 200 PUFF/INH INHALER INH ×4 (00:30→19:25)
[2024-09-19] MEDS: CARVEDILOL 3.125 MG TABLET GT (08:08)
[2024-09-19] MEDS: ACETAMINOPHEN 325 MG TABLET 650 MG GT ×3 (08:09→21:20)
[2024-09-19] MEDS: MULTIVITAMIN W MINERALS 1 EACH TABLET GT (08:09)
[2024-09-19] MEDS: CYANOCOBALAMIN (VITAMIN B-12) 500 MCG TABLET 1000 MCG GT (08:09)
[2024-09-19] MEDS: PHENYLEPHRINE GT (08:09)
[2024-09-19] MEDS: DEXLANSOPRAZOLE 30 MG PO (08:09)
[2024-09-19] MEDS: DEXTROMETHORPHAN GT (08:09)
[2024-09-19] MEDS: GUAIFENESIN GT (08:09)
--- NOTE | 2024-09-19 13:39 | PC.NURSE ---
Addendum entered by Tammy Jacobson RN 09/19/24 16:56: Order for sodium chloride solution approved by MD. Will ordered to pharmacy will notified RT. Original Note: RT just informed TIFFANY Farah and SUPERVISOR TELEPHONE CLERKS notified radio news writer that medication Mucomyst had not been yet delivered. Slate Picker called pharmacy to verify status of medication. Tech informed radio news writer that medication it was out for deliver in the process of being delivered, vials got damaged. RX stated they did not have medication on hand and that they needed to re-order therefore, it wont be here until tomorrow. Spoke to pharmacist Kj he was able to give us an alternative for Mucomyst/ Na+ chloride. Will notified .
[2024-09-19] MEDS: ATORVASTATIN 40 MG TABLET GT (21:20)
[2024-09-19] MEDS: INSULIN GLARGINE 100 UNIT/ML INSULN.PEN 30 UNIT SC (21:22)
[2024-09-20] VITALS (9 sets, daily range): BP systolic 127–133; BP diastolic 53–81; PULSE 53–79; RESP 12–26; TEMP 36.1–36.3; O2SAT 98–100
[2024-09-20] MEDS: ALBUTEROL INHALER 200 PUFF/INH INHALER INH ×5 (00:15→19:28)
[2024-09-20] MEDS: IPRATROPIUM BROMIDE 200 PUFF/INH INHALER INH ×4 (00:35→19:28)
[2024-09-20] MEDS: CYANOCOBALAMIN (VITAMIN B-12) 500 MCG TABLET 1000 MCG GT (09:00)
[2024-09-20] MEDS: DEXLANSOPRAZOLE 30 MG PO (09:00)
[2024-09-20] MEDS: MULTIVITAMIN W MINERALS 1 EACH TABLET GT (09:01)
[2024-09-20] MEDS: SODIUM CHLORIDE INH (09:01)
[2024-09-20] MEDS: ACETAMINOPHEN 325 MG TABLET 650 MG GT (20:50)
[2024-09-20] MEDS: ATORVASTATIN 40 MG TABLET GT (21:13)
[2024-09-20] MEDS: INSULIN GLARGINE 100 UNIT/ML INSULN.PEN 30 UNIT SC (21:15)
[2024-09-21] VITALS (11 sets, daily range): BP systolic 99–118; BP diastolic 56–72; PULSE 62–92; RESP 16–32; TEMP 35.9–38.7; O2SAT 95–99
[2024-09-21] MEDS: IPRATROPIUM BROMIDE 200 PUFF/INH INHALER INH ×3 (00:15→13:26)
[2024-09-21] MEDS: ALBUTEROL INHALER 200 PUFF/INH INHALER INH ×2 (07:57→13:26)
[2024-09-21] MEDS: ACETYLCYSTEINE 10% 3 ML VIAL INH ×2 (07:57→19:43)
[2024-09-21] MEDS: CARVEDILOL 3.125 MG TABLET GT (08:19)
[2024-09-21] MEDS: DEXLANSOPRAZOLE 30 MG PO (08:20)
[2024-09-21] MEDS: MULTIVITAMIN W MINERALS 1 EACH TABLET GT (08:20)
[2024-09-21] MEDS: CYANOCOBALAMIN (VITAMIN B-12) 500 MCG TABLET 1000 MCG GT (08:20)
[2024-09-21] MEDS: GUAIFENESIN GT (11:15)
[2024-09-21] MEDS: DEXTROMETHORPHAN GT (11:15)
[2024-09-21] MEDS: PHENYLEPHRINE GT (11:15)
[2024-09-21] MEDS: IPRATROPIUM/ALBUTEROL 3 ML AMPUL.NEB INH ×2 (16:44→19:43)
--- NOTE | 2024-09-21 18:22 | PC.NURSE ---
At around 15:45, resident noted to be in respiratory distress, O2 sat at 87-89% on mechanical ventilator. Suctioned , no secretions noted. RT gave breathing treatment and doesn't seem to help him. Called Dr Ramires and made aware and he talked to RT on duty. RT bagged resident and changed his trach at around 18:05 seem to help resident. O2 sat at this time 96%. No s/s of respiratory distress. Looks calm .
[2024-09-21] MEDS: ATORVASTATIN 40 MG TABLET GT (21:25)
[2024-09-21] MEDS: INSULIN GLARGINE 100 UNIT/ML INSULN.PEN 30 UNIT SC (21:26)
[2024-09-21 22:43] LABS: Basophils % (Auto) 0 % (0-2.5); Eosinophils % (Auto) 0 % (0-10); Immature Granulocytes % (Auto) 0 % (0-0); Mean Corpuscular Volume 88 fL (80-100); Nucleated Red Blood Cell % 0 /100 WBC (0)
[2024-09-21 22:45] LABS: Hemoglobin 11.9 g/dL (13.5-16.0); Immature Granulocytes Auto 0.03 Thou/mm3 (0.00-0.00); Lymphocytes # (Auto) 0.9 Thou/mm3 (1.0-4.8); Lymphocytes % (Auto) 7 % (10-50); Monocytes # (Auto) 0.4 Thou/mm3 (0.0-0.8); Monocytes % (Auto) 3 % (0-12); Neutrophils # (Auto) 11.7 Thou/mm3 (1.8-7.7); Neutrophils % (Auto) 90 % (37-80); Platelet Count 117 Thou/mm3 (140-440); RDW Standard Deviation 58.5 fL (35.1-43.9); Red Blood Count 3.97 Miln/mm3 (4.50-5.90); White Blood Count 13.1 Thou/mm3 (3.8-10.6)
[2024-09-21 22:48] LABS: Collection Type, Urine Catheter
[2024-09-21] MEDS: ACETAMINOPHEN 325 MG TABLET 650 MG GT (22:50)
[2024-09-21 23:14] LABS: Bilirubin,Urine Negative (Negative); Blood,Urine 2+ (Negative); Clarity,Urine Clear (Clear/Hazy); Color,Urine Yellow (Lt Yel-Yel); Culture Indicated,Urine Not Indicated; Glucose, Urine Negative (Negative); Ketones,Urine Negative (Negative); Leukocyte Esterase,Urine Negative (Negative); Nitrite,Urine Negative (Negative); PH,Urine 5.5 (5.0-7.0); Protein,Urine 1+ (Neg - Trace); RBC,Urine 14 /hpf (0-3); Specific Gravity,Urine 1.021 (1.001-1.035); Squamous Epithelial Cell,Urine < 1 /hpf (0-5); WBC,Urine 4 /hpf (0-5)
[2024-09-21 23:37] LABS: COVID-19 Antigen (In-House) Negative (Negative); Influenza A Ag Negative; Influenza B Ag Negative
[2024-09-22] VITALS (10 sets, daily range): BP systolic 116–150; BP diastolic 64–74; PULSE 59–93; RESP 21–30; TEMP 36.3–37.1; O2SAT 94–100
[2024-09-22] MEDS: IPRATROPIUM BROMIDE 200 PUFF/INH INHALER INH ×4 (00:01→20:10)
[2024-09-22] MEDS: ALBUTEROL INHALER 200 PUFF/INH INHALER INH ×5 (00:01→22:22)
[2024-09-22] MEDS: CEFTRIAXONE 1 GM VIAL.PORT IVP ×2 (00:34→20:46)
--- NOTE | 2024-09-22 00:52 | PC.NURSE ---
Notified by staff that resident had rectal temp of 101.5, temp protocol initiated r/t elevated temps, episodes of desaturation, recent chest x-ray and recent placement on mechanical ventilator. Notified Dr Ramires of lab results with new order to start resident on Rocephin 1 gram IV daily for PNA/chest x-ray results x 5 days or until culture results are back.
[2024-09-22] MEDS: ACETYLCYSTEINE 10% 3 ML VIAL INH ×2 (07:05→20:10)
[2024-09-22] MEDS: ACETAMINOPHEN 325 MG TABLET 650 MG GT (07:49)
[2024-09-22] MEDS: DEXTROMETHORPHAN GT (07:50)
[2024-09-22] MEDS: PHENYLEPHRINE GT (07:50)
[2024-09-22] MEDS: GUAIFENESIN GT (07:50)
[2024-09-22] MEDS: CARVEDILOL 3.125 MG TABLET GT (08:14)
[2024-09-22] MEDS: MULTIVITAMIN W MINERALS 1 EACH TABLET GT (08:15)
[2024-09-22] MEDS: DEXLANSOPRAZOLE 30 MG PO (08:15)
[2024-09-22] MEDS: CYANOCOBALAMIN (VITAMIN B-12) 500 MCG TABLET 1000 MCG GT (08:15)
--- NOTE | 2024-09-22 17:29 | PC.NURSE ---
Seen by Dr Ramires, no new orders made.
--- NOTE | 2024-09-22 19:24 | PC.NURSE ---
Condition remains stable and afebrile. No adverse reaction noted from Rocephin for PNA. No s/s of respiratory distress noted. GT feeding tolerated well. Suctioned as needed.
[2024-09-22] MEDS: ATORVASTATIN 40 MG TABLET GT (20:25)
[2024-09-22] MEDS: INSULIN GLARGINE 100 UNIT/ML INSULN.PEN 30 UNIT SC (21:28)
--- NOTE | 2024-09-22 22:06 | PD.SAPROG ---
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 (3) Chronic respiratory failure, unspecified whether with hypoxia or hypercapnia: Status: Chronic (4) Hyperlipidemia, unspecified: Status: Chronic (5) Tracheostomy status: Status: Chronic (6) Chronic atrial fibrillation: Status: Chronic SUBJECTIVE Fever:: none GI:: none Shortness of Breath:: none Pain:: none OBJECTIVE Most recent vital signs: Last Vital Signs Temp 97.3 F 09/22/24 17:09 Pulse 74 09/22/24 17:09 Resp 26 H 09/22/24 17:09 BP 150/64 H 09/22/24 17:09 Pulse Ox 100 09/22/24 17:09 O2 Del Method Blow-by 09/22/24 17:09 O2 Flow Rate 6 09/22/24 17:09 FiO2 25 09/22/24 17:09 Neurological:: PVS Speech:: none Answers questions:: no Respiratory:: lungs clear Cardiovascular: irregular Abdomen: soft and nontender Extremities:: deformities (Spastic contractures of extremities) Decubitus:: none Tracheostomy:: to blow by Feeding per:: G tube Complaints:: none ASSESSMENT & PLAN Assessment: Pt remains essentially PVS for years. Prognosis for independent living is poor. No pain/ discomfort. Tolerates feeding. Pt started on Ventilator support because of acute drop in O2 saturatios and breathing pattern VSS Plan: Current treatment reviewed and continued. Ventilator settings were revised recently to adjust to demand.
[2024-09-23] VITALS (9 sets, daily range): BP systolic 96–117; BP diastolic 52–82; PULSE 57–83; RESP 18–32; TEMP 36.3–37.1; O2SAT 100
[2024-09-23] MEDS: ALBUTEROL INHALER 200 PUFF/INH INHALER INH ×4 (00:15→18:40)
[2024-09-23] MEDS: IPRATROPIUM BROMIDE 200 PUFF/INH INHALER INH ×3 (00:15→12:21)
[2024-09-23] MEDS: ACETYLCYSTEINE 10% 3 ML VIAL INH ×2 (06:02→18:40)
[2024-09-23] MEDS: DEXLANSOPRAZOLE 30 MG PO (08:19)
[2024-09-23] MEDS: MULTIVITAMIN W MINERALS 1 EACH TABLET GT (08:19)
[2024-09-23] MEDS: CYANOCOBALAMIN (VITAMIN B-12) 500 MCG TABLET 1000 MCG GT (08:19)
[2024-09-23] MEDS: CARVEDILOL 3.125 MG TABLET GT (08:19)
[2024-09-23] MEDS: DEXTROMETHORPHAN GT (08:23)
[2024-09-23] MEDS: PHENYLEPHRINE GT (08:23)
[2024-09-23] MEDS: ACETAMINOPHEN 325 MG TABLET 650 MG GT (08:23)
[2024-09-23] MEDS: GUAIFENESIN GT (08:23)
[2024-09-23] MEDS: CEFTRIAXONE 1 GM VIAL.PORT IVP (20:28)
[2024-09-23] MEDS: INSULIN GLARGINE 100 UNIT/ML INSULN.PEN 30 UNIT SC (20:56)
[2024-09-23] MEDS: ATORVASTATIN 40 MG TABLET GT (20:56)
[2024-09-23] MEDS: MAGNESIUM HYDROXIDE 30 ML ORAL SUSP ML GT (21:02)
[2024-09-24] VITALS (8 sets, daily range): BP systolic 111–130; BP diastolic 59–75; PULSE 65–79; RESP 21–29; TEMP 36.3–36.4; O2SAT 98–100
[2024-09-24] MEDS: ALBUTEROL INHALER 200 PUFF/INH INHALER INH ×4 (00:45→18:30)
[2024-09-24] MEDS: CARVEDILOL 3.125 MG TABLET GT (08:29)
[2024-09-24] MEDS: MULTIVITAMIN W MINERALS 1 EACH TABLET GT (08:30)
[2024-09-24] MEDS: CYANOCOBALAMIN (VITAMIN B-12) 500 MCG TABLET 1000 MCG GT (08:30)
[2024-09-24] MEDS: DEXLANSOPRAZOLE 30 MG PO (08:30)
[2024-09-24] MEDS: IPRATROPIUM BROMIDE 200 PUFF/INH INHALER INH (18:30)
[2024-09-24] MEDS: CEFTRIAXONE 1 GM VIAL.PORT IVP (20:07)
[2024-09-24] MEDS: ATORVASTATIN 40 MG TABLET GT (20:43)
[2024-09-24] MEDS: INSULIN GLARGINE 100 UNIT/ML INSULN.PEN 30 UNIT SC (21:39)
[2024-09-25] VITALS (10 sets, daily range): BP systolic 120–137; BP diastolic 66–80; PULSE 70–84; RESP 22–48; TEMP 36.1–36.6; O2SAT 95–100
[2024-09-25] MEDS: ALBUTEROL INHALER 200 PUFF/INH INHALER INH ×4 (01:15→23:20)
--- NOTE | 2024-09-25 04:51 | PC.NURSE ---
Resident receiving Ceftriaxone daily IV for fever and PNA. No adverse reaction noted. Tolerating well. Afebrile.
[2024-09-25] MEDS: IPRATROPIUM BROMIDE 200 PUFF/INH INHALER INH ×4 (06:35→23:20)
[2024-09-25] MEDS: CARVEDILOL 3.125 MG TABLET GT (08:18)
[2024-09-25] MEDS: DEXLANSOPRAZOLE 30 MG PO (08:19)
[2024-09-25] MEDS: MULTIVITAMIN W MINERALS 1 EACH TABLET GT (08:19)
[2024-09-25] MEDS: CYANOCOBALAMIN (VITAMIN B-12) 500 MCG TABLET 1000 MCG GT (08:19)
--- NOTE | 2024-09-25 08:30 | PC.NURSE ---
Addendum entered by Monica Reyes RN 09/25/24 13:21: . Called resident's son Colt gave update about the resident the order for antibiotic and appreciate much the call. Original Note: Called Dr Ramires and verbally reported resident's sputum c & s result, with order received to discontinue Rocephin and start on Levaquin 500 mg PGT daily x 7 days
[2024-09-25] MEDS: levoFLOXacin 500 MG TABLET GT (10:51)
[2024-09-25] MEDS: ACETAMINOPHEN 325 MG TABLET 650 MG GT ×2 (14:17→20:26)
[2024-09-25] MEDS: IPRATROPIUM/ALBUTEROL 3 ML AMPUL.NEB INH (14:36)
--- NOTE | 2024-09-25 17:23 | PC.NURSE ---
1705-Residents vent was alarming and expert medical writer entered room and noted resident with labored breathing, respirations 45-50, 02 sat 75% and agrawal in color. Software Test Manager suctioned resident, HOB elevated and 02 vent setting was increased to 100% oxygen. Residents O2 increased to 99-100%. Charge nurse made aware as well as RT. Resident has had several episodes of desaturation this shift, suctioned resident each time and resident given 100% oxygen via vent. Charge nurse notified MD, per MD RT to assess resident and vent settings. Resident stable at this time. Resting in bed with eyes open, no s/s of pain or distress noted. Vital signs 135/72, 75/ 48, 98%. Will continue to monitor for changes.
[2024-09-25] MEDS: ATORVASTATIN 40 MG TABLET GT (20:26)
[2024-09-25] MEDS: INSULIN GLARGINE 100 UNIT/ML INSULN.PEN 30 UNIT SC (21:37)
[2024-09-26] VITALS (8 sets, daily range): BP systolic 101–152; BP diastolic 69–82; PULSE 54–91; RESP 18–35; TEMP 36–36.4; O2SAT 97–100
[2024-09-26] MEDS: ALBUTEROL INHALER 200 PUFF/INH INHALER INH ×4 (00:23→20:05)
[2024-09-26] MEDS: IPRATROPIUM BROMIDE 200 PUFF/INH INHALER INH ×3 (06:50→20:05)
[2024-09-26] MEDS: CARVEDILOL 3.125 MG TABLET GT (09:34)
[2024-09-26] MEDS: DEXLANSOPRAZOLE 30 MG PO (09:35)
[2024-09-26] MEDS: CYANOCOBALAMIN (VITAMIN B-12) 500 MCG TABLET 1000 MCG GT (09:35)
[2024-09-26] MEDS: MULTIVITAMIN W MINERALS 1 EACH TABLET GT (09:35)
[2024-09-26] MEDS: levoFLOXacin 500 MG TABLET GT (09:39)
--- NOTE | 2024-09-26 15:54 | PC.NURSE ---
Resident receiving Levaquin 500mg for ESBL in the sputum and PNA. No adverse reaction noted. No s/s of respiratory distress. Will continue to monitor closely. Call light within reach.
--- NOTE | 2024-09-26 20:54 | PD.SAPROG ---
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 (3) Chronic respiratory failure, unspecified whether with hypoxia or hypercapnia: Status: Chronic (4) Hyperlipidemia, unspecified: Status: Chronic (5) Tracheostomy status: Status: Chronic (6) Chronic atrial fibrillation: Status: Chronic SUBJECTIVE Fever:: none GI:: none Shortness of Breath:: none Pain:: none OBJECTIVE Most recent vital signs: Last Vital Signs Temp 97.5 F 09/26/24 18:00 Pulse 91 09/26/24 18:00 Resp 35 H 09/26/24 18:00 BP 133/82 H 09/26/24 18:00 Pulse Ox 99 09/26/24 18:00 O2 Del Method Mechanical Ventilation 09/26/24 18:00 O2 Flow Rate 6 09/23/24 17:01 FiO2 40 09/26/24 10:00 Neurological:: PVS Speech:: none Answers questions:: no Respiratory:: lungs clear Cardiovascular: irregular Abdomen: soft and nontender Extremities:: deformities (Spastic contractures of extremities) Decubitus:: none Tracheostomy:: to blow by Feeding per:: G tube Complaints:: none ASSESSMENT & PLAN Assessment: Pt remains essentially PVS for years. Prognosis for independent living is poor. No pain/ discomfort. Tolerates feeding. Pt started on Ventilator support because of acute drop in O2 saturatios and breathing pattern VSS. Ventilator not weanable Plan: Current treatment reviewed and continued. Ventilator settings were revised recently to adjust to demand.
[2024-09-26] MEDS: INSULIN GLARGINE 100 UNIT/ML INSULN.PEN 30 UNIT SC (21:43)
[2024-09-26] MEDS: ATORVASTATIN 40 MG TABLET GT (21:43)
[2024-09-26] MEDS: ACETAMINOPHEN 325 MG TABLET 650 MG GT (22:23)
[2024-09-27] VITALS (7 sets, daily range): BP systolic 110–126; BP diastolic 53–75; PULSE 56–72; RESP 20–26; TEMP 36.1–36.8; O2SAT 98–100
[2024-09-27] MEDS: ALBUTEROL INHALER 200 PUFF/INH INHALER INH ×4 (02:03→19:19)
[2024-09-27] MEDS: IPRATROPIUM BROMIDE 200 PUFF/INH INHALER INH ×4 (02:04→19:19)
[2024-09-27] MEDS: levoFLOXacin 500 MG TABLET GT (09:07)
[2024-09-27] MEDS: CARVEDILOL 3.125 MG TABLET GT (09:08)
[2024-09-27] MEDS: CYANOCOBALAMIN (VITAMIN B-12) 500 MCG TABLET 1000 MCG GT (09:08)
[2024-09-27] MEDS: MULTIVITAMIN W MINERALS 1 EACH TABLET GT (09:09)
[2024-09-27] MEDS: DEXLANSOPRAZOLE 30 MG PO (09:09)
--- NOTE | 2024-09-27 18:33 | PC.NURSE ---
Resident continues on antibiotics for ESBL in sputum. No adverse reactions noted. Afebrile. Respirations even and unlabored. O2 sats remain above 97%. Continue to observe.
[2024-09-27] MEDS: ATORVASTATIN 40 MG TABLET GT (20:54)
[2024-09-27] MEDS: INSULIN GLARGINE 100 UNIT/ML INSULN.PEN 30 UNIT SC (20:55)
[2024-09-28] VITALS (8 sets, daily range): BP systolic 116–147; BP diastolic 53–83; PULSE 61–79; RESP 22–26; TEMP 36.2–36.4; O2SAT 97–100
[2024-09-28] MEDS: IPRATROPIUM BROMIDE 200 PUFF/INH INHALER INH ×4 (00:15→19:05)
[2024-09-28] MEDS: ALBUTEROL INHALER 200 PUFF/INH INHALER INH ×4 (00:15→19:05)
[2024-09-28] MEDS: levoFLOXacin 500 MG TABLET GT (08:34)
[2024-09-28] MEDS: CARVEDILOL 3.125 MG TABLET GT (08:35)
[2024-09-28] MEDS: MULTIVITAMIN W MINERALS 1 EACH TABLET GT (08:36)
[2024-09-28] MEDS: DEXLANSOPRAZOLE 30 MG PO (08:36)
[2024-09-28] MEDS: CYANOCOBALAMIN (VITAMIN B-12) 500 MCG TABLET 1000 MCG GT (08:36)
[2024-09-28] MEDS: ATORVASTATIN 40 MG TABLET GT (21:33)
[2024-09-28] MEDS: INSULIN GLARGINE 100 UNIT/ML INSULN.PEN 30 UNIT SC (21:57)
[2024-09-29] VITALS (9 sets, daily range): BP systolic 119–141; BP diastolic 68–87; PULSE 56–76; RESP 20–25; TEMP 36.1–36.4; O2SAT 97–100
[2024-09-29] MEDS: IPRATROPIUM BROMIDE 200 PUFF/INH INHALER INH ×4 (00:20→18:30)
[2024-09-29] MEDS: ALBUTEROL INHALER 200 PUFF/INH INHALER INH ×4 (00:20→18:30)
--- NOTE | 2024-09-29 00:30 | PC.NURSE ---
Resident continues on antibiotics for Pneumonia. No adverse reaction noted. Vent remains in place, SpO2 noted to decrease with new probe placed for continuos pulse Ox with current SpO2 at 95%. Resident currently resting with no s/s of pain or discomfort noted.Fluids tolerated well via g-tube. V/S WNL.
[2024-09-29] MEDS: ACETAMINOPHEN 325 MG TABLET 650 MG GT (03:39)
[2024-09-29] MEDS: levoFLOXacin 500 MG TABLET GT (09:16)
[2024-09-29] MEDS: MULTIVITAMIN W MINERALS 1 EACH TABLET GT (09:17)
[2024-09-29] MEDS: CYANOCOBALAMIN (VITAMIN B-12) 500 MCG TABLET 1000 MCG GT (09:17)
[2024-09-29] MEDS: DEXLANSOPRAZOLE 30 MG PO (09:17)
[2024-09-29] MEDS: CARVEDILOL 3.125 MG TABLET GT (09:17)
[2024-09-29] MEDS: MAGNESIUM HYDROXIDE 30 ML ORAL SUSP ML GT (10:34)
--- NOTE | 2024-09-29 17:04 | PD.SAPROG ---
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 (3) Chronic respiratory failure, unspecified whether with hypoxia or hypercapnia: Status: Chronic (4) Hyperlipidemia, unspecified: Status: Chronic (5) Tracheostomy status: Status: Chronic (6) Chronic atrial fibrillation: Status: Chronic SUBJECTIVE Fever:: none GI:: none Shortness of Breath:: none Pain:: none OBJECTIVE Most recent vital signs: Last Vital Signs Temp 97.5 F 09/29/24 12:00 Pulse 62 09/29/24 12:47 Resp 21 H 09/29/24 12:47 BP 121/72 09/29/24 12:00 Pulse Ox 100 09/29/24 12:47 O2 Del Method Mechanical Ventilation 09/28/24 06:00 O2 Flow Rate 6 09/23/24 17:01 FiO2 30 09/29/24 12:47 Neurological:: PVS Speech:: none Answers questions:: no Respiratory:: lungs clear Cardiovascular: irregular Abdomen: soft and nontender Extremities:: deformities (Spastic contractures of extremities) Decubitus:: none Tracheostomy:: to blow by Feeding per:: G tube Complaints:: none ASSESSMENT & PLAN Assessment: Pt remains essentially PVS for years. Prognosis for independent living is poor. No pain/ discomfort. Tolerates feeding. Pt started on Ventilator support because of acute drop in O2 saturatios and breathing pattern VSS. Ventilator not weanable Plan: Current treatment reviewed and continued. Ventilator settings were revised recently to adjust to demand.
--- NOTE | 2024-09-29 19:03 | PC.NURSE ---
Resident remains on Antibiotic for ESBL in the sputum and PNA, resident receiving Levaquin. No S\S of adverse reaction or any respiratory distress note. Will continue to monitor closely.
[2024-09-29] MEDS: ATORVASTATIN 40 MG TABLET GT (20:30)
[2024-09-29] MEDS: INSULIN GLARGINE 100 UNIT/ML INSULN.PEN 30 UNIT SC (21:18)
[2024-09-30] VITALS (9 sets, daily range): BP systolic 94–128; BP diastolic 61–80; PULSE 58–83; RESP 20–32; TEMP 35.8–36.5; O2SAT 96–100
[2024-09-30] MEDS: IPRATROPIUM BROMIDE 200 PUFF/INH INHALER INH ×4 (00:31→18:30)
[2024-09-30] MEDS: ALBUTEROL INHALER 200 PUFF/INH INHALER INH ×4 (00:31→18:30)
[2024-09-30] MEDS: levoFLOXacin 500 MG TABLET GT (08:18)
[2024-09-30] MEDS: MULTIVITAMIN W MINERALS 1 EACH TABLET GT (08:21)
[2024-09-30] MEDS: DEXLANSOPRAZOLE 30 MG PO (08:21)
[2024-09-30] MEDS: CYANOCOBALAMIN (VITAMIN B-12) 500 MCG TABLET 1000 MCG GT (08:21)
[2024-09-30] MEDS: ATORVASTATIN 40 MG TABLET GT (20:38)
[2024-09-30] MEDS: INSULIN GLARGINE 100 UNIT/ML INSULN.PEN 30 UNIT SC (21:14)
[2024-10-01] VITALS (9 sets, daily range): BP systolic 95–150; BP diastolic 56–84; PULSE 59–85; RESP 21–33; TEMP 36.2–36.7; O2SAT 99–100
[2024-10-01] MEDS: ALBUTEROL INHALER 200 PUFF/INH INHALER INH ×4 (00:32→18:31)
[2024-10-01] MEDS: IPRATROPIUM BROMIDE 200 PUFF/INH INHALER INH ×4 (00:32→18:31)
[2024-10-01] MEDS: levoFLOXacin 500 MG TABLET GT (09:40)
[2024-10-01] MEDS: CYANOCOBALAMIN (VITAMIN B-12) 500 MCG TABLET 1000 MCG GT (09:41)
[2024-10-01] MEDS: DEXLANSOPRAZOLE 30 MG PO (09:41)
[2024-10-01] MEDS: MULTIVITAMIN W MINERALS 1 EACH TABLET GT (09:42)
[2024-10-01] MEDS: INSULIN GLARGINE 100 UNIT/ML INSULN.PEN 30 UNIT SC (20:42)
[2024-10-01] MEDS: ATORVASTATIN 40 MG TABLET GT (20:42)
[2024-10-02] VITALS (8 sets, daily range): BP systolic 137–149; BP diastolic 66–82; PULSE 59–82; RESP 20–36; TEMP 35.8–36.2; O2SAT 97–100; BMI 24.2
[2024-10-02] MEDS: ALBUTEROL INHALER 200 PUFF/INH INHALER INH ×4 (00:38→18:30)
[2024-10-02] MEDS: IPRATROPIUM BROMIDE 200 PUFF/INH INHALER INH ×4 (00:38→18:30)
[2024-10-02] MEDS: CYANOCOBALAMIN (VITAMIN B-12) 500 MCG TABLET 1000 MCG GT (08:40)
[2024-10-02] MEDS: MULTIVITAMIN W MINERALS 1 EACH TABLET GT (08:40)
[2024-10-02] MEDS: CARVEDILOL 3.125 MG TABLET GT (08:40)
[2024-10-02] MEDS: DEXLANSOPRAZOLE 30 MG PO (08:40)
[2024-10-02] MEDS: ACETAMINOPHEN 325 MG TABLET 650 MG GT (08:41)
[2024-10-02] MEDS: IPRATROPIUM/ALBUTEROL 3 ML AMPUL.NEB INH (09:14)
[2024-10-02] MEDS: ATORVASTATIN 40 MG TABLET GT (20:31)
[2024-10-03] VITALS (9 sets, daily range): BP systolic 92–124; BP diastolic 57–78; PULSE 52–91; RESP 20–36; TEMP 36.3–36.7; O2SAT 98–100
[2024-10-03] MEDS: ALBUTEROL INHALER 200 PUFF/INH INHALER INH ×4 (01:00→18:57)
[2024-10-03] MEDS: IPRATROPIUM BROMIDE 200 PUFF/INH INHALER INH ×4 (01:00→18:57)
[2024-10-03] MEDS: CARVEDILOL 3.125 MG TABLET GT (08:39)
[2024-10-03] MEDS: CYANOCOBALAMIN (VITAMIN B-12) 500 MCG TABLET 1000 MCG GT (08:39)
[2024-10-03] MEDS: DEXLANSOPRAZOLE 30 MG PO (08:39)
[2024-10-03] MEDS: MULTIVITAMIN W MINERALS 1 EACH TABLET GT (08:39)
--- NOTE | 2024-10-03 14:05 | PD.SAPROG ---
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 (3) Chronic respiratory failure, unspecified whether with hypoxia or hypercapnia: Status: Chronic (4) Hyperlipidemia, unspecified: Status: Chronic (5) Tracheostomy status: Status: Chronic (6) Chronic atrial fibrillation: Status: Chronic SUBJECTIVE Fever:: none GI:: none Shortness of Breath:: none Pain:: none OBJECTIVE Most recent vital signs: Last Vital Signs Temp 97.3 F 10/06/24 05:53 Pulse 62 10/06/24 07:08 Resp 23 H 10/06/24 07:08 BP 110/68 10/06/24 05:53 Pulse Ox 100 10/06/24 07:08 O2 Del Method Mechanical Ventilation 10/06/24 05:53 O2 Flow Rate 6 10/06/24 05:53 FiO2 30 10/06/24 07:08 Neurological:: PVS Speech:: none Answers questions:: no Respiratory:: lungs clear Cardiovascular: irregular Abdomen: soft and nontender Extremities:: deformities (Spastic contractures of extremities) Decubitus:: none Tracheostomy:: to blow by Feeding per:: G tube Complaints:: none ASSESSMENT & PLAN Assessment: Pt remains essentially PVS for years. Prognosis for independent living is poor. No pain/ discomfort. Tolerates feeding. Pt started on Ventilator support because of acute drop in O2 saturatios and breathing pattern VSS. Ventilator not weanable Plan: Current treatment reviewed and continued. Ventilator settings were revised recently to adjust to demand.
[2024-10-03] MEDS: INSULIN GLARGINE 100 UNIT/ML INSULN.PEN 30 UNIT SC (21:19)
[2024-10-03] MEDS: ATORVASTATIN 40 MG TABLET GT (21:23)
[2024-10-04] VITALS (9 sets, daily range): BP systolic 94–128; BP diastolic 57–84; PULSE 54–74; RESP 18–28; TEMP 36.1–36.4; O2SAT 96–100
[2024-10-04] MEDS: IPRATROPIUM BROMIDE 200 PUFF/INH INHALER INH ×4 (01:10→19:15)
[2024-10-04] MEDS: ALBUTEROL INHALER 200 PUFF/INH INHALER INH ×4 (01:10→19:15)
[2024-10-04] MEDS: CYANOCOBALAMIN (VITAMIN B-12) 500 MCG TABLET 1000 MCG GT (09:52)
[2024-10-04] MEDS: CARVEDILOL 3.125 MG TABLET GT (09:52)
[2024-10-04] MEDS: DEXLANSOPRAZOLE 30 MG PO (09:53)
[2024-10-04] MEDS: MULTIVITAMIN W MINERALS 1 EACH TABLET GT (09:53)
--- NOTE | 2024-10-04 11:53 | PC.SS ---
Room visit: Resident is laying in bed with head of the bed elevated with call light properly placed with no signs of distress. Resident has no changes in care or condition, remains on vent with trach in place and GT for medication and nutrition. Resident is unable to make needs known, his son Colt is his decision maker. Resident will remain in current care and will continue to have all subacute care needs met by staff.
[2024-10-04] MEDS: ATORVASTATIN 40 MG TABLET GT (20:20)
[2024-10-04] MEDS: INSULIN GLARGINE 100 UNIT/ML INSULN.PEN 30 UNIT SC (21:00)
[2024-10-05] VITALS (9 sets, daily range): BP systolic 105–116; BP diastolic 58–74; PULSE 52–71; RESP 18–25; TEMP 36.1–36.7; O2SAT 98–100
[2024-10-05] MEDS: IPRATROPIUM BROMIDE 200 PUFF/INH INHALER INH ×4 (01:26→18:10)
[2024-10-05] MEDS: ALBUTEROL INHALER 200 PUFF/INH INHALER INH ×4 (01:26→18:10)
[2024-10-05] MEDS: CARVEDILOL 3.125 MG TABLET GT (08:55)
[2024-10-05] MEDS: DEXLANSOPRAZOLE 30 MG PO (08:57)
[2024-10-05] MEDS: MULTIVITAMIN W MINERALS 1 EACH TABLET GT (08:57)
[2024-10-05] MEDS: CYANOCOBALAMIN (VITAMIN B-12) 500 MCG TABLET 1000 MCG GT (08:57)
[2024-10-05] MEDS: DEXTROMETHORPHAN GT (08:58)
[2024-10-05] MEDS: GUAIFENESIN GT (08:58)
[2024-10-05] MEDS: PHENYLEPHRINE GT (08:58)
[2024-10-05] MEDS: ATORVASTATIN 40 MG TABLET GT (20:15)
[2024-10-05] MEDS: INSULIN GLARGINE 100 UNIT/ML INSULN.PEN 30 UNIT SC (21:27)
[2024-10-06] MEDS: IPRATROPIUM BROMIDE 200 PUFF/INH INHALER INH ×4 (00:20→18:00)
[2024-10-06] MEDS: ALBUTEROL INHALER 200 PUFF/INH INHALER INH ×4 (00:20→18:00)
[2024-10-06 01:15] VITALS: PULSE 67; PULSE 68; RESP 23; O2SAT 100
[2024-10-06 05:53] VITALS: BP 110/68; PULSE 65; RESP 17; TEMP 36.3; O2SAT 98
[2024-10-06 07:08] VITALS: PULSE 59; PULSE 62; RESP 23; O2SAT 100
[2024-10-06 09:30] VITALS: BP 107/60; PULSE 74
[2024-10-06] MEDS: CARVEDILOL 3.125 MG TABLET GT (09:30)
[2024-10-06] MEDS: DEXLANSOPRAZOLE 30 MG PO (09:31)
[2024-10-06] MEDS: MULTIVITAMIN W MINERALS 1 EACH TABLET GT (09:31)
[2024-10-06] MEDS: CYANOCOBALAMIN (VITAMIN B-12) 500 MCG TABLET 1000 MCG GT (09:31)
[2024-10-06 10:29] VITALS: BMI 24.3
--- NOTE | 2024-10-06 10:49 | PC.NURSE ---
Marek Hair I reweighed him he is at 164.0 I also notified the ice cream machine operator and the charge nurse.
[2024-10-06 13:09] VITALS: PULSE 70; PULSE 72; RESP 25; O2SAT 100
[2024-10-06 18:00] VITALS: PULSE 56; PULSE 59; RESP 20; O2SAT 98
[2024-10-06] MEDS: ATORVASTATIN 40 MG TABLET GT (20:36)
[2024-10-06] MEDS: INSULIN GLARGINE 100 UNIT/ML INSULN.PEN 30 UNIT SC (20:40)
[2024-10-07] VITALS (7 sets, daily range): BP systolic 124–162; BP diastolic 72–98; PULSE 56–78; RESP 20–24; TEMP 36.6–36.9; O2SAT 96–99
[2024-10-07] MEDS: ALBUTEROL INHALER 200 PUFF/INH INHALER INH ×4 (00:10→18:10)
[2024-10-07] MEDS: IPRATROPIUM BROMIDE 200 PUFF/INH INHALER INH ×4 (00:10→18:10)
[2024-10-07] MEDS: CYANOCOBALAMIN (VITAMIN B-12) 500 MCG TABLET 1000 MCG GT (08:52)
[2024-10-07] MEDS: CARVEDILOL 3.125 MG TABLET GT (08:52)
[2024-10-07] MEDS: DEXLANSOPRAZOLE 30 MG PO (08:52)
[2024-10-07] MEDS: MAGNESIUM HYDROXIDE 30 ML ORAL SUSP ML GT (08:53)
[2024-10-07] MEDS: MULTIVITAMIN W MINERALS 1 EACH TABLET GT (08:53)
[2024-10-07] MEDS: ATORVASTATIN 40 MG TABLET GT (20:20)
--- NOTE | 2024-10-07 21:03 | PD.SAPROG ---
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 (3) Chronic respiratory failure, unspecified whether with hypoxia or hypercapnia: Status: Chronic (4) Hyperlipidemia, unspecified: Status: Chronic (5) Tracheostomy status: Status: Chronic (6) Chronic atrial fibrillation: Status: Chronic SUBJECTIVE Fever:: none GI:: none Shortness of Breath:: none Pain:: none OBJECTIVE Most recent vital signs: Last Vital Signs Temp 98.4 F 10/07/24 18:00 Pulse 74 10/07/24 18:00 Resp 22 H 10/07/24 18:00 BP 162/98 H 10/07/24 18:00 Pulse Ox 97 10/07/24 18:00 O2 Del Method Mechanical Ventilation 10/07/24 18:00 O2 Flow Rate 6 10/06/24 05:53 FiO2 30 10/07/24 12:13 Neurological:: PVS Speech:: none Answers questions:: no Respiratory:: lungs clear Cardiovascular: irregular Abdomen: soft and nontender Extremities:: deformities (Spastic contractures of extremities) Decubitus:: none Tracheostomy:: to blow by Feeding per:: G tube Complaints:: none ASSESSMENT & PLAN Assessment: Pt remains essentially PVS for years. Prognosis for independent living is poor. No pain/ discomfort. Tolerates feeding. Pt started on Ventilator support because of acute drop in O2 saturatios and breathing pattern VSS. Ventilator not weanable Plan: Current treatment reviewed and continued. Ventilator settings were revised recently to adjust to demand.
[2024-10-07] MEDS: INSULIN GLARGINE 100 UNIT/ML INSULN.PEN 30 UNIT SC (21:30)
[2024-10-08] VITALS (8 sets, daily range): BP systolic 108–136; BP diastolic 71–83; PULSE 54–85; RESP 18–29; TEMP 36.1–36.5; O2SAT 97–100
[2024-10-08] MEDS: ALBUTEROL INHALER 200 PUFF/INH INHALER INH ×3 (06:02→12:19)
[2024-10-08] MEDS: IPRATROPIUM BROMIDE 200 PUFF/INH INHALER INH ×3 (06:02→12:19)
[2024-10-08] MEDS: CARVEDILOL 3.125 MG TABLET GT (08:18)
[2024-10-08] MEDS: DEXLANSOPRAZOLE 30 MG PO (08:19)
[2024-10-08] MEDS: CYANOCOBALAMIN (VITAMIN B-12) 500 MCG TABLET 1000 MCG GT (08:19)
[2024-10-08] MEDS: MULTIVITAMIN W MINERALS 1 EACH TABLET GT (08:20)
[2024-10-08] MEDS: ATORVASTATIN 40 MG TABLET GT (21:02)
[2024-10-09] VITALS (10 sets, daily range): BP systolic 92–155; BP diastolic 42–83; PULSE 55–82; RESP 18–30; TEMP 36.1–36.6; O2SAT 97–99
[2024-10-09] MEDS: IPRATROPIUM BROMIDE 200 PUFF/INH INHALER INH ×3 (06:45→16:45)
[2024-10-09] MEDS: ALBUTEROL INHALER 200 PUFF/INH INHALER INH ×3 (06:45→16:45)
[2024-10-09] MEDS: DEXLANSOPRAZOLE 30 MG PO (08:48)
[2024-10-09] MEDS: CARVEDILOL 3.125 MG TABLET GT (08:48)
[2024-10-09] MEDS: CYANOCOBALAMIN (VITAMIN B-12) 500 MCG TABLET 1000 MCG GT (08:48)
[2024-10-09] MEDS: MULTIVITAMIN W MINERALS 1 EACH TABLET GT (08:49)
[2024-10-09] MEDS: IPRATROPIUM/ALBUTEROL 3 ML AMPUL.NEB INH (11:20)
[2024-10-09] MEDS: INSULIN GLARGINE 100 UNIT/ML INSULN.PEN 30 UNIT SC (21:44)
[2024-10-09] MEDS: ATORVASTATIN 40 MG TABLET GT (21:44)
[2024-10-10 01:11] VITALS: PULSE 68; RESP 21; RESP 23; O2SAT 98; O2SAT 99
[2024-10-10] MEDS: ALBUTEROL INHALER 200 PUFF/INH INHALER INH ×4 (01:11→20:20)
[2024-10-10 06:00] VITALS: BP 147/76; PULSE 78; RESP 22; TEMP 36.8; O2SAT 97
[2024-10-10 06:35] VITALS: PULSE 81; RESP 21; O2SAT 99
[2024-10-10] MEDS: IPRATROPIUM BROMIDE 200 PUFF/INH INHALER INH ×3 (06:35→20:20)
[2024-10-10 08:49] VITALS: BP 151/78; PULSE 80
[2024-10-10] MEDS: DEXLANSOPRAZOLE 30 MG PO (08:49)
[2024-10-10] MEDS: CYANOCOBALAMIN (VITAMIN B-12) 500 MCG TABLET 1000 MCG GT (08:49)
[2024-10-10] MEDS: CARVEDILOL 3.125 MG TABLET GT (08:49)
[2024-10-10] MEDS: MULTIVITAMIN W MINERALS 1 EACH TABLET GT (08:50)
[2024-10-10] MEDS: MAGNESIUM HYDROXIDE 30 ML ORAL SUSP ML GT (09:44)
[2024-10-10 12:02] VITALS: PULSE 52; RESP 19; O2SAT 98
[2024-10-10 20:20] VITALS: PULSE 71; PULSE 75; RESP 18; RESP 21; O2SAT 97
[2024-10-10] MEDS: ATORVASTATIN 40 MG TABLET GT (20:41)
[2024-10-10] MEDS: INSULIN GLARGINE 100 UNIT/ML INSULN.PEN 30 UNIT SC (20:50)
[2024-10-11] VITALS (8 sets, daily range): BP systolic 97–141; BP diastolic 62–83; PULSE 67–88; RESP 18–32; TEMP 36.3–36.4; O2SAT 95–99
[2024-10-11] MEDS: IPRATROPIUM BROMIDE 200 PUFF/INH INHALER INH ×4 (00:55→19:55)
[2024-10-11] MEDS: ALBUTEROL INHALER 200 PUFF/INH INHALER INH ×4 (00:55→19:55)
[2024-10-11] MEDS: DEXLANSOPRAZOLE 30 MG PO (09:20)
[2024-10-11] MEDS: CYANOCOBALAMIN (VITAMIN B-12) 500 MCG TABLET 1000 MCG GT (09:20)
[2024-10-11] MEDS: MULTIVITAMIN W MINERALS 1 EACH TABLET GT (09:20)
[2024-10-11] MEDS: CARVEDILOL 3.125 MG TABLET GT (09:20)
--- NOTE | 2024-10-11 14:10 | PD.SAPROG ---
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 (3) Chronic respiratory failure, unspecified whether with hypoxia or hypercapnia: Status: Chronic (4) Hyperlipidemia, unspecified: Status: Chronic (5) Tracheostomy status: Status: Chronic (6) Chronic atrial fibrillation: Status: Chronic SUBJECTIVE Fever:: none GI:: none Shortness of Breath:: none Pain:: none OBJECTIVE Most recent vital signs: Last Vital Signs Temp 97.5 F 10/14/24 06:00 Pulse 66 10/14/24 06:00 Resp 20 10/14/24 06:00 BP 118/66 10/14/24 06:00 Pulse Ox 98 10/14/24 06:00 O2 Del Method Mechanical Ventilation 10/12/24 17:32 O2 Flow Rate 6 10/09/24 23:48 FiO2 30 10/14/24 01:45 Neurological:: PVS Speech:: none Answers questions:: no Respiratory:: lungs clear Cardiovascular: irregular Abdomen: soft and nontender Extremities:: deformities (Spastic contractures of extremities) Decubitus:: none Tracheostomy:: to blow by Feeding per:: G tube Complaints:: none ASSESSMENT & PLAN Assessment: Pt remains essentially PVS for years. Prognosis for independent living is poor. No pain/ discomfort. Tolerates feeding. Pt started on Ventilator support because of acute drop in O2 saturatios and breathing pattern VSS. Ventilator not weanable Plan: Current treatment reviewed and continued. Ventilator settings were revised recently to adjust to demand.
[2024-10-11] MEDS: ATORVASTATIN 40 MG TABLET GT (20:07)
[2024-10-11] MEDS: INSULIN GLARGINE 100 UNIT/ML INSULN.PEN 30 UNIT SC (20:13)
[2024-10-12] VITALS (9 sets, daily range): BP systolic 109–138; BP diastolic 60–74; PULSE 56–81; RESP 18–30; TEMP 35.9–36.2; O2SAT 97–99
[2024-10-12] MEDS: ALBUTEROL INHALER 200 PUFF/INH INHALER INH ×4 (01:50→19:06)
[2024-10-12] MEDS: IPRATROPIUM BROMIDE 200 PUFF/INH INHALER INH ×4 (01:50→19:06)
[2024-10-12] MEDS: CYANOCOBALAMIN (VITAMIN B-12) 500 MCG TABLET 1000 MCG GT (08:07)
[2024-10-12] MEDS: CARVEDILOL 3.125 MG TABLET GT (08:07)
[2024-10-12] MEDS: DEXLANSOPRAZOLE 30 MG PO (08:08)
[2024-10-12] MEDS: MULTIVITAMIN W MINERALS 1 EACH TABLET GT (08:08)
[2024-10-12] MEDS: ACETAMINOPHEN 325 MG TABLET 650 MG GT (14:20)
[2024-10-12] MEDS: DEXTROMETHORPHAN GT (14:20)
[2024-10-12] MEDS: GUAIFENESIN GT (14:20)
[2024-10-12] MEDS: PHENYLEPHRINE GT (14:20)
[2024-10-12] MEDS: ATORVASTATIN 40 MG TABLET GT (21:28)
[2024-10-12] MEDS: INSULIN GLARGINE 100 UNIT/ML INSULN.PEN 30 UNIT SC (21:28)
[2024-10-13] VITALS (8 sets, daily range): BP systolic 114–145; BP diastolic 77–82; PULSE 52–89; RESP 18–27; TEMP 36.1; O2SAT 97–99
[2024-10-13] MEDS: IPRATROPIUM BROMIDE 200 PUFF/INH INHALER INH ×4 (00:34→20:06)
[2024-10-13] MEDS: ALBUTEROL INHALER 200 PUFF/INH INHALER INH ×3 (00:34→12:31)
[2024-10-13] MEDS: PHENYLEPHRINE GT (02:55)
[2024-10-13] MEDS: GUAIFENESIN GT (02:55)
[2024-10-13] MEDS: DEXTROMETHORPHAN GT (02:55)
[2024-10-13] MEDS: DEXLANSOPRAZOLE 30 MG PO (08:24)
[2024-10-13] MEDS: CARVEDILOL 3.125 MG TABLET GT (08:24)
[2024-10-13] MEDS: CYANOCOBALAMIN (VITAMIN B-12) 500 MCG TABLET 1000 MCG GT (08:24)
[2024-10-13] MEDS: MULTIVITAMIN W MINERALS 1 EACH TABLET GT (08:24)
--- NOTE | 2024-10-13 13:03 | PC.SS ---
Room visit: Resident is laying in bed with head of the bed elevated with call light properly placed with no signs of distress. Resident has no changes in care or condition, he remains on vent with trach in place and GT for medication and nutrition. Resident is total care unable to make needs known, his son Colt is his decision maker. Resident will remain in current care and will continue to have all subacute care needs met by staff. This SSD will continue to monitor for changes in mood and behavior.
[2024-10-13] MEDS: INSULIN GLARGINE 100 UNIT/ML INSULN.PEN 30 UNIT SC (21:30)
[2024-10-13] MEDS: ATORVASTATIN 40 MG TABLET GT (21:30)
[2024-10-14] VITALS (9 sets, daily range): BP systolic 99–137; BP diastolic 62–81; PULSE 43–87; RESP 18–25; TEMP 36.1–36.6; O2SAT 96–99
[2024-10-14] MEDS: IPRATROPIUM BROMIDE 200 PUFF/INH INHALER INH ×4 (01:45→20:18)
[2024-10-14] MEDS: ALBUTEROL INHALER 200 PUFF/INH INHALER INH ×4 (01:45→20:18)
[2024-10-14] MEDS: CYANOCOBALAMIN (VITAMIN B-12) 500 MCG TABLET 1000 MCG GT (09:28)
[2024-10-14] MEDS: DEXLANSOPRAZOLE 30 MG PO (09:28)
[2024-10-14] MEDS: MULTIVITAMIN W MINERALS 1 EACH TABLET GT (09:28)
[2024-10-14] MEDS: CARVEDILOL 3.125 MG TABLET GT (09:28)
--- NOTE | 2024-10-14 15:58 | PC.NURSE ---
Nurse Liz notified creative writer regarding couple of possible issues with resident. She noted that skin mole like to rt cheek that has been monitored for sometime is not going away. Second concern was resident's penile skin not retracting while providing care. (res. not circumcised). Notified MD of all these concerns. Orders to monitor penile area for changes S/S infection, and for facial mole like Dr. will personally see resident on Wednesday to resident. Will continue to monitor.
[2024-10-14] MEDS: ATORVASTATIN 40 MG TABLET GT (20:30)
[2024-10-14] MEDS: INSULIN GLARGINE 100 UNIT/ML INSULN.PEN 30 UNIT SC (21:02)
[2024-10-15 00:22] VITALS: PULSE 52; RESP 24; O2SAT 98; O2SAT 99
[2024-10-15] MEDS: ALBUTEROL INHALER 200 PUFF/INH INHALER INH ×4 (00:22→18:52)
[2024-10-15 06:22] VITALS: PULSE 53; PULSE 55; RESP 18; RESP 20; O2SAT 98; O2SAT 99
[2024-10-15] MEDS: IPRATROPIUM BROMIDE 200 PUFF/INH INHALER INH ×3 (06:22→18:52)
[2024-10-15] MEDS: CYANOCOBALAMIN (VITAMIN B-12) 500 MCG TABLET 1000 MCG GT (08:50)
[2024-10-15] MEDS: DEXLANSOPRAZOLE 30 MG PO (08:50)
[2024-10-15] MEDS: MULTIVITAMIN W MINERALS 1 EACH TABLET GT (08:50)
[2024-10-15 08:53] VITALS: BP 115/71; PULSE 70
[2024-10-15] MEDS: CARVEDILOL 3.125 MG TABLET GT (08:53)
--- NOTE | 2024-10-15 11:02 | PD.SAPROG ---
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 (3) Chronic respiratory failure, unspecified whether with hypoxia or hypercapnia: Status: Chronic (4) Hyperlipidemia, unspecified: Status: Chronic (5) Tracheostomy status: Status: Chronic (6) Chronic atrial fibrillation: Status: Chronic SUBJECTIVE Fever:: none GI:: none Shortness of Breath:: none Pain:: none OBJECTIVE Most recent vital signs: Last Vital Signs Temp 97.8 F 10/14/24 17:48 Pulse 70 10/15/24 08:53 Resp 18 10/15/24 06:22 BP 115/71 10/15/24 08:53 Pulse Ox 99 10/15/24 06:22 O2 Del Method Mechanical Ventilation 10/12/24 17:32 O2 Flow Rate 6 10/09/24 23:48 FiO2 30 10/15/24 10:00 Neurological:: PVS Speech:: none Answers questions:: no Respiratory:: lungs clear Cardiovascular: irregular Abdomen: soft and nontender Extremities:: deformities (Spastic contractures of extremities) Decubitus:: none Tracheostomy:: to blow by Feeding per:: G tube Complaints:: none ASSESSMENT & PLAN Assessment: Pt remains essentially PVS for years. Prognosis for independent living is poor. No pain/ discomfort. Tolerates feeding. Pt started on Ventilator support because of acute drop in O2 saturatios and breathing pattern VSS. Ventilator not weanable. Monitor skin lesion and if it grows then a surgery consult. Plan: Current treatment reviewed and continued. Ventilator settings were revised recently to adjust to demand.
[2024-10-15 12:10] VITALS: PULSE 54; PULSE 56; RESP 18; RESP 23; O2SAT 97; O2SAT 98
[2024-10-15 18:52] VITALS: PULSE 59; PULSE 60; RESP 20; O2SAT 99
[2024-10-15] MEDS: INSULIN GLARGINE 100 UNIT/ML INSULN.PEN 30 UNIT SC (21:19)
[2024-10-15] MEDS: ATORVASTATIN 40 MG TABLET GT (21:19)
[2024-10-16] VITALS (7 sets, daily range): BP systolic 108–130; BP diastolic 47–70; PULSE 44–71; RESP 18–25; TEMP 36–36.3; O2SAT 97–99
[2024-10-16] MEDS: ALBUTEROL INHALER 200 PUFF/INH INHALER INH ×4 (00:17→18:46)
[2024-10-16] MEDS: IPRATROPIUM BROMIDE 200 PUFF/INH INHALER INH ×4 (00:17→18:46)
[2024-10-16] MEDS: MAGNESIUM HYDROXIDE 30 ML ORAL SUSP ML GT (01:06)
[2024-10-16] MEDS: CARVEDILOL 3.125 MG TABLET GT (09:34)
[2024-10-16] MEDS: CYANOCOBALAMIN (VITAMIN B-12) 500 MCG TABLET 1000 MCG GT (09:34)
[2024-10-16] MEDS: DEXLANSOPRAZOLE 30 MG PO (09:34)
[2024-10-16] MEDS: MULTIVITAMIN W MINERALS 1 EACH TABLET GT (09:35)
--- NOTE | 2024-10-16 15:00 | PC.NURSE ---
Mole to right side of cheek was seen by Dr terrazas today. No new orders made. Penile skin not retracting when providing care, may use qtip in cleaning it by gently pulling the side of skin downward , then clean the other side after that as per MD.
[2024-10-16] MEDS: ATORVASTATIN 40 MG TABLET GT (20:43)
[2024-10-16] MEDS: INSULIN GLARGINE 100 UNIT/ML INSULN.PEN 30 UNIT SC (20:43)
[2024-10-16] MEDS: PHENYLEPHRINE GT (22:47)
[2024-10-16] MEDS: GUAIFENESIN GT (22:47)
[2024-10-16] MEDS: DEXTROMETHORPHAN GT (22:47)
[2024-10-17] VITALS (10 sets, daily range): BP systolic 105–127; BP diastolic 59–80; PULSE 49–84; RESP 20–26; TEMP 36.1–36.6; O2SAT 98–99
[2024-10-17] MEDS: IPRATROPIUM BROMIDE 200 PUFF/INH INHALER INH ×4 (00:20→19:33)
[2024-10-17] MEDS: ALBUTEROL INHALER 200 PUFF/INH INHALER INH ×4 (00:20→19:33)
[2024-10-17] MEDS: CARVEDILOL 3.125 MG TABLET GT (08:45)
[2024-10-17] MEDS: CYANOCOBALAMIN (VITAMIN B-12) 500 MCG TABLET 1000 MCG GT (08:46)
[2024-10-17] MEDS: MULTIVITAMIN W MINERALS 1 EACH TABLET GT (08:46)
[2024-10-17] MEDS: DEXLANSOPRAZOLE 30 MG PO (08:46)
[2024-10-17] MEDS: INSULIN GLARGINE 100 UNIT/ML INSULN.PEN 30 UNIT SC (20:57)
[2024-10-17] MEDS: ATORVASTATIN 40 MG TABLET GT (20:58)
[2024-10-18] VITALS (9 sets, daily range): BP systolic 100–130; BP diastolic 59–81; PULSE 51–95; RESP 18–27; TEMP 35.9–36.4; O2SAT 98–99
[2024-10-18] MEDS: IPRATROPIUM BROMIDE 200 PUFF/INH INHALER INH ×4 (01:18→18:28)
[2024-10-18] MEDS: ALBUTEROL INHALER 200 PUFF/INH INHALER INH ×4 (01:18→18:28)
[2024-10-18] MEDS: CARVEDILOL 3.125 MG TABLET GT (09:07)
[2024-10-18] MEDS: DEXLANSOPRAZOLE 30 MG PO (09:08)
[2024-10-18] MEDS: MULTIVITAMIN W MINERALS 1 EACH TABLET GT (09:08)
[2024-10-18] MEDS: CYANOCOBALAMIN (VITAMIN B-12) 500 MCG TABLET 1000 MCG GT (09:08)
[2024-10-18] MEDS: ATORVASTATIN 40 MG TABLET GT (20:33)
[2024-10-18] MEDS: INSULIN GLARGINE 100 UNIT/ML INSULN.PEN 30 UNIT SC (21:12)
[2024-10-19] VITALS (8 sets, daily range): BP systolic 97–138; BP diastolic 64–82; PULSE 50–80; RESP 18–23; TEMP 36.2–37.1; O2SAT 97–99
[2024-10-19] MEDS: ALBUTEROL INHALER 200 PUFF/INH INHALER INH ×4 (00:17→19:04)
[2024-10-19] MEDS: IPRATROPIUM BROMIDE 200 PUFF/INH INHALER INH ×4 (00:17→19:04)
[2024-10-19] MEDS: MULTIVITAMIN W MINERALS 1 EACH TABLET GT (08:53)
[2024-10-19] MEDS: DEXLANSOPRAZOLE 30 MG PO (08:53)
[2024-10-19] MEDS: CYANOCOBALAMIN (VITAMIN B-12) 500 MCG TABLET 1000 MCG GT (08:53)
--- NOTE | 2024-10-19 16:20 | PD.SAPROG ---
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 (3) Chronic respiratory failure, unspecified whether with hypoxia or hypercapnia: Status: Chronic (4) Hyperlipidemia, unspecified: Status: Chronic (5) Tracheostomy status: Status: Chronic (6) Chronic atrial fibrillation: Status: Chronic SUBJECTIVE Fever:: none GI:: none Shortness of Breath:: none Pain:: none OBJECTIVE Most recent vital signs: Last Vital Signs Temp 98.7 F 10/19/24 00:00 Pulse 59 L 10/19/24 13:07 Resp 21 H 10/19/24 13:07 BP 97/64 10/19/24 08:52 Pulse Ox 99 10/19/24 13:07 O2 Del Method Mechanical Ventilation 10/18/24 06:00 O2 Flow Rate 6 10/09/24 23:48 FiO2 30 10/19/24 13:07 Neurological:: PVS Speech:: none Answers questions:: no Respiratory:: lungs clear Cardiovascular: irregular Abdomen: soft and nontender Extremities:: deformities (Spastic contractures of extremities) Decubitus:: none Tracheostomy:: to blow by Feeding per:: G tube Complaints:: none ASSESSMENT & PLAN Assessment: Pt remains essentially PVS for years. Prognosis for independent living is poor. No pain/ discomfort. Tolerates feeding. Pt started on Ventilator support because of acute drop in O2 saturatios and breathing pattern VSS. Ventilator not weanable. Monitor skin lesion and if it grows then a surgery consult. So far stable Plan: Current treatment reviewed and continued. Ventilator settings were revised recently to adjust to demand.
[2024-10-19] MEDS: ATORVASTATIN 40 MG TABLET GT (20:44)
[2024-10-19] MEDS: INSULIN GLARGINE 100 UNIT/ML INSULN.PEN 30 UNIT SC (20:44)
[2024-10-20] VITALS (10 sets, daily range): BP systolic 106–137; BP diastolic 67–77; PULSE 54–82; RESP 18–23; TEMP 35.8–36.5; O2SAT 97–100
[2024-10-20] MEDS: IPRATROPIUM BROMIDE 200 PUFF/INH INHALER INH ×3 (01:33→18:38)
[2024-10-20] MEDS: ALBUTEROL INHALER 200 PUFF/INH INHALER INH ×4 (01:33→18:38)
[2024-10-20] MEDS: CYANOCOBALAMIN (VITAMIN B-12) 500 MCG TABLET 1000 MCG GT (09:14)
[2024-10-20] MEDS: MULTIVITAMIN W MINERALS 1 EACH TABLET GT (09:14)
[2024-10-20] MEDS: DEXLANSOPRAZOLE 30 MG PO (09:15)
[2024-10-20] MEDS: CARVEDILOL 3.125 MG TABLET GT (09:25)
--- NOTE | 2024-10-20 15:11 | PC.SS ---
Room visit: Resident is laying in bed with head of the bed elevated with call light properly placed with no signs of distress. Resident is alert unable to make needs known, his decision maker is his son. Resident has no changes in care or condition he remains on blow by with trach in place and GT for medication and nutrition. Resident will remain in current care and will have all subacute care needs met by staff. Resident has no changes in mood and behavior, this SSD will continue to make daily contact with resident and offer support.
[2024-10-20] MEDS: ATORVASTATIN 40 MG TABLET GT (21:29)
[2024-10-20] MEDS: INSULIN GLARGINE 100 UNIT/ML INSULN.PEN 30 UNIT SC (21:29)
[2024-10-21] VITALS (12 sets, daily range): BP systolic 98–148; BP diastolic 58–76; PULSE 45–88; RESP 20–24; TEMP 35.9–36.9; O2SAT 97–99
[2024-10-21] MEDS: IPRATROPIUM BROMIDE 200 PUFF/INH INHALER INH ×4 (00:39→16:22)
[2024-10-21] MEDS: ALBUTEROL INHALER 200 PUFF/INH INHALER INH ×4 (00:39→16:22)
[2024-10-21] MEDS: DEXLANSOPRAZOLE 30 MG PO (09:44)
[2024-10-21] MEDS: CARVEDILOL 3.125 MG TABLET GT (09:44)
[2024-10-21] MEDS: CYANOCOBALAMIN (VITAMIN B-12) 500 MCG TABLET 1000 MCG GT (09:44)
[2024-10-21] MEDS: MULTIVITAMIN W MINERALS 1 EACH TABLET GT (09:45)
[2024-10-21] MEDS: ATORVASTATIN 40 MG TABLET GT (21:02)
[2024-10-21] MEDS: INSULIN GLARGINE 100 UNIT/ML INSULN.PEN 30 UNIT SC (21:07)
[2024-10-22] VITALS (10 sets, daily range): BP systolic 98–138; BP diastolic 49–80; PULSE 49–71; RESP 20–27; TEMP 36.1–36.4; O2SAT 97–100
[2024-10-22] MEDS: ALBUTEROL INHALER 200 PUFF/INH INHALER INH ×4 (00:58→19:23)
[2024-10-22] MEDS: IPRATROPIUM BROMIDE 200 PUFF/INH INHALER INH ×4 (00:58→19:23)
[2024-10-22] MEDS: MULTIVITAMIN W MINERALS 1 EACH TABLET GT (08:59)
[2024-10-22] MEDS: CYANOCOBALAMIN (VITAMIN B-12) 500 MCG TABLET 1000 MCG GT (09:00)
[2024-10-22] MEDS: DEXLANSOPRAZOLE 30 MG PO (09:00)
[2024-10-22] MEDS: CARVEDILOL 3.125 MG TABLET GT (09:00)
[2024-10-22] MEDS: ATORVASTATIN 40 MG TABLET GT (20:51)
[2024-10-22] MEDS: INSULIN GLARGINE 100 UNIT/ML INSULN.PEN 30 UNIT SC (20:55)
[2024-10-23] VITALS (9 sets, daily range): BP systolic 105–132; BP diastolic 54–77; PULSE 50–80; RESP 18–23; TEMP 36.6–36.8; O2SAT 98–100
[2024-10-23] MEDS: ALBUTEROL INHALER 200 PUFF/INH INHALER INH ×4 (00:39→18:29)
[2024-10-23] MEDS: IPRATROPIUM BROMIDE 200 PUFF/INH INHALER INH ×4 (00:39→18:29)
[2024-10-23] MEDS: CARVEDILOL 3.125 MG TABLET GT (08:44)
[2024-10-23] MEDS: CYANOCOBALAMIN (VITAMIN B-12) 500 MCG TABLET 1000 MCG GT (08:45)
[2024-10-23] MEDS: DEXLANSOPRAZOLE 30 MG PO (08:45)
[2024-10-23] MEDS: MULTIVITAMIN W MINERALS 1 EACH TABLET GT (08:45)
[2024-10-23] MEDS: ATORVASTATIN 40 MG TABLET GT (20:30)
[2024-10-23] MEDS: INSULIN GLARGINE 100 UNIT/ML INSULN.PEN 30 UNIT SC (21:03)
--- NOTE | 2024-10-23 21:10 | PD.SAPROG ---
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 (3) Chronic respiratory failure, unspecified whether with hypoxia or hypercapnia: Status: Chronic (4) Hyperlipidemia, unspecified: Status: Chronic (5) Tracheostomy status: Status: Chronic (6) Chronic atrial fibrillation: Status: Chronic SUBJECTIVE Fever:: none GI:: none Shortness of Breath:: none Pain:: none OBJECTIVE Most recent vital signs: Last Vital Signs Temp 98.0 F 10/23/24 18:00 Pulse 65 10/23/24 18:29 Resp 18 10/23/24 18:29 BP 120/77 10/23/24 18:00 Pulse Ox 98 10/23/24 18:29 O2 Del Method Blow-by 10/23/24 18:00 O2 Flow Rate 6 10/21/24 06:00 FiO2 30 10/23/24 18:29 Neurological:: PVS Speech:: none Answers questions:: no Respiratory:: lungs clear Cardiovascular: irregular Abdomen: soft and nontender Extremities:: deformities (Spastic contractures of extremities) Decubitus:: none Tracheostomy:: to blow by Feeding per:: G tube Complaints:: none ASSESSMENT & PLAN Assessment: Pt remains essentially PVS for years. Prognosis for independent living is poor. No pain/ discomfort. Tolerates feeding. Pt started on Ventilator support because of acute drop in O2 saturatios and breathing pattern VSS. Ventilator not weanable. Monitor skin lesion and if it grows then a surgery consult. So far stable Plan: Current treatment reviewed and continued. Ventilator settings were revised recently to adjust to demand.
[2024-10-24] VITALS (9 sets, daily range): BP systolic 121–150; BP diastolic 61–77; PULSE 45–72; RESP 18–22; TEMP 36.1–36.2; O2SAT 97–99
[2024-10-24] MEDS: IPRATROPIUM BROMIDE 200 PUFF/INH INHALER INH ×4 (00:38→18:12)
[2024-10-24] MEDS: ALBUTEROL INHALER 200 PUFF/INH INHALER INH ×4 (00:38→18:12)
[2024-10-24] MEDS: ACETAMINOPHEN 325 MG TABLET 650 MG GT ×2 (04:08→22:30)
[2024-10-24] MEDS: DEXTROMETHORPHAN GT ×2 (04:09→21:06)
[2024-10-24] MEDS: PHENYLEPHRINE GT ×2 (04:09→21:06)
[2024-10-24] MEDS: GUAIFENESIN GT ×2 (04:09→21:06)
[2024-10-24] MEDS: CARVEDILOL 3.125 MG TABLET GT (09:05)
[2024-10-24] MEDS: DEXLANSOPRAZOLE 30 MG PO (09:07)
[2024-10-24] MEDS: CYANOCOBALAMIN (VITAMIN B-12) 500 MCG TABLET 1000 MCG GT (09:08)
[2024-10-24] MEDS: MULTIVITAMIN W MINERALS 1 EACH TABLET GT (09:08)
[2024-10-24] MEDS: ATORVASTATIN 40 MG TABLET GT (21:04)
[2024-10-24] MEDS: INSULIN GLARGINE 100 UNIT/ML INSULN.PEN 30 UNIT SC (21:04)
[2024-10-25] VITALS (7 sets, daily range): BP systolic 106–134; BP diastolic 69–99; PULSE 46–79; RESP 20–30; TEMP 35.9–36.2; O2SAT 93–100
[2024-10-25] MEDS: IPRATROPIUM BROMIDE 200 PUFF/INH INHALER INH ×4 (01:21→18:31)
[2024-10-25] MEDS: ALBUTEROL INHALER 200 PUFF/INH INHALER INH ×4 (01:22→18:31)
[2024-10-25] MEDS: CYANOCOBALAMIN (VITAMIN B-12) 500 MCG TABLET 1000 MCG GT (09:13)
[2024-10-25] MEDS: CARVEDILOL 3.125 MG TABLET GT (09:13)
[2024-10-25] MEDS: MULTIVITAMIN W MINERALS 1 EACH TABLET GT (09:14)
[2024-10-25] MEDS: DEXLANSOPRAZOLE 30 MG PO (09:14)
[2024-10-25] MEDS: ATORVASTATIN 40 MG TABLET GT (21:20)
[2024-10-25] MEDS: INSULIN GLARGINE 100 UNIT/ML INSULN.PEN 30 UNIT SC (21:28)
[2024-10-26] VITALS (9 sets, daily range): BP systolic 109–131; BP diastolic 64–74; PULSE 49–65; RESP 18–27; TEMP 36.1–36.5; O2SAT 96–100
[2024-10-26] MEDS: ALBUTEROL INHALER 200 PUFF/INH INHALER INH ×4 (02:11→16:46)
[2024-10-26] MEDS: IPRATROPIUM BROMIDE 200 PUFF/INH INHALER INH ×4 (02:11→16:46)
[2024-10-26] MEDS: MAGNESIUM HYDROXIDE 30 ML ORAL SUSP ML GT (06:27)
[2024-10-26] MEDS: CYANOCOBALAMIN (VITAMIN B-12) 500 MCG TABLET 1000 MCG GT (08:28)
[2024-10-26] MEDS: DEXLANSOPRAZOLE 30 MG PO (08:29)
[2024-10-26] MEDS: MULTIVITAMIN W MINERALS 1 EACH TABLET GT (08:29)
[2024-10-26] MEDS: ATORVASTATIN 40 MG TABLET GT (20:49)
[2024-10-26] MEDS: INSULIN GLARGINE 100 UNIT/ML INSULN.PEN 30 UNIT SC (20:56)
[2024-10-27] VITALS (8 sets, daily range): BP systolic 99–146; BP diastolic 59–82; PULSE 42–78; RESP 18–28; TEMP 36.1–36.6; O2SAT 98–99
[2024-10-27] MEDS: ALBUTEROL INHALER 200 PUFF/INH INHALER INH ×4 (07:26→19:32)
[2024-10-27] MEDS: IPRATROPIUM BROMIDE 200 PUFF/INH INHALER INH ×4 (07:26→19:32)
[2024-10-27] MEDS: MULTIVITAMIN W MINERALS 1 EACH TABLET GT (09:55)
[2024-10-27] MEDS: CYANOCOBALAMIN (VITAMIN B-12) 500 MCG TABLET 1000 MCG GT (09:55)
[2024-10-27] MEDS: DEXLANSOPRAZOLE 30 MG PO (09:55)
--- NOTE | 2024-10-27 15:32 | PD.SAPROG ---
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 (3) Chronic respiratory failure, unspecified whether with hypoxia or hypercapnia: Status: Chronic (4) Hyperlipidemia, unspecified: Status: Chronic (5) Tracheostomy status: Status: Chronic (6) Chronic atrial fibrillation: Status: Chronic SUBJECTIVE Fever:: none GI:: none Shortness of Breath:: none Pain:: none OBJECTIVE Most recent vital signs: Last Vital Signs Temp 97.0 F 10/27/24 06:00 Pulse 53 L 10/27/24 12:51 Resp 25 H 10/27/24 12:51 BP 99/59 L 10/27/24 09:55 Pulse Ox 98 10/27/24 12:51 O2 Del Method Mechanical Ventilation 10/27/24 06:00 O2 Flow Rate 6 10/26/24 16:55 FiO2 30 10/27/24 12:51 Neurological:: PVS Speech:: none Answers questions:: no Respiratory:: lungs clear Cardiovascular: irregular Abdomen: soft and nontender Extremities:: deformities (Spastic contractures of extremities) Decubitus:: none Tracheostomy:: to blow by Feeding per:: G tube Complaints:: none ASSESSMENT & PLAN Assessment: Pt remains essentially PVS for years. Prognosis for independent living is poor. No pain/ discomfort. Tolerates feeding. Pt started on Ventilator support because of acute drop in O2 saturatios and breathing pattern VSS. Ventilator not weanable. Monitor skin lesion and if it grows then a surgery consult. So far stable Plan: Current treatment reviewed and continued. Ventilator settings were revised recently to adjust to demand.
--- NOTE | 2024-10-27 15:39 | PC.SS ---
Room visit: Resident is laying in bed with head of the bed elevated with call light properly placed with no signs of distress. Resident is well groomed with call light properly placed. Resident has no changes in care and condition, to remain in subacute care and will have all subacute care needs met by staff. SSD will continue to make daily contact with resident and monitor for changes in mood and behavior.
[2024-10-27] MEDS: ATORVASTATIN 40 MG TABLET GT (21:56)
[2024-10-27] MEDS: INSULIN GLARGINE 100 UNIT/ML INSULN.PEN 30 UNIT SC (22:01)
[2024-10-28 01:35] VITALS: PULSE 59; RESP 20; RESP 21; O2SAT 97
[2024-10-28] MEDS: ALBUTEROL INHALER 200 PUFF/INH INHALER INH ×4 (01:35→19:36)
[2024-10-28] MEDS: IPRATROPIUM BROMIDE 200 PUFF/INH INHALER INH ×4 (01:35→19:36)
[2024-10-28 07:17] VITALS: PULSE 55; PULSE 58; RESP 21; O2SAT 98
[2024-10-28 09:07] VITALS: BP 124/68; PULSE 62
[2024-10-28] MEDS: CARVEDILOL 3.125 MG TABLET GT (09:07)
[2024-10-28] MEDS: CYANOCOBALAMIN (VITAMIN B-12) 500 MCG TABLET 1000 MCG GT (09:08)
[2024-10-28] MEDS: DEXLANSOPRAZOLE 30 MG PO (09:08)
[2024-10-28] MEDS: MULTIVITAMIN W MINERALS 1 EACH TABLET GT (09:08)
[2024-10-28 13:00] VITALS: PULSE 59; PULSE 61; RESP 22; O2SAT 99
[2024-10-28 19:36] VITALS: PULSE 72; RESP 20; O2SAT 95
[2024-10-28] MEDS: ATORVASTATIN 40 MG TABLET GT (20:53)
[2024-10-28] MEDS: INSULIN GLARGINE 100 UNIT/ML INSULN.PEN 30 UNIT SC (21:04)
[2024-10-29] VITALS (9 sets, daily range): BP systolic 111–123; BP diastolic 51–75; PULSE 45–76; RESP 20–25; TEMP 36–36.7; O2SAT 95–99
[2024-10-29] MEDS: IPRATROPIUM BROMIDE 200 PUFF/INH INHALER INH ×4 (00:04→19:05)
[2024-10-29] MEDS: ALBUTEROL INHALER 200 PUFF/INH INHALER INH ×4 (00:04→19:05)
[2024-10-29] MEDS: MULTIVITAMIN W MINERALS 1 EACH TABLET GT (08:40)
[2024-10-29] MEDS: CYANOCOBALAMIN (VITAMIN B-12) 500 MCG TABLET 1000 MCG GT (08:40)
[2024-10-29] MEDS: DEXLANSOPRAZOLE 30 MG PO (08:40)
[2024-10-29] MEDS: ATORVASTATIN 40 MG TABLET GT (20:26)
[2024-10-29] MEDS: INSULIN GLARGINE 100 UNIT/ML INSULN.PEN 30 UNIT SC (20:26)
[2024-10-30] VITALS (8 sets, daily range): BP systolic 102–134; BP diastolic 60–84; PULSE 52–65; RESP 20–23; TEMP 36–36.4; O2SAT 97–100
[2024-10-30] MEDS: ALBUTEROL INHALER 200 PUFF/INH INHALER INH ×4 (00:28→19:13)
[2024-10-30] MEDS: IPRATROPIUM BROMIDE 200 PUFF/INH INHALER INH ×4 (00:28→19:13)
[2024-10-30] MEDS: CYANOCOBALAMIN (VITAMIN B-12) 500 MCG TABLET 1000 MCG GT (08:29)
[2024-10-30] MEDS: DEXLANSOPRAZOLE 30 MG PO (08:30)
[2024-10-30] MEDS: MULTIVITAMIN W MINERALS 1 EACH TABLET GT (08:30)
[2024-10-30] MEDS: ATORVASTATIN 40 MG TABLET GT (20:59)
[2024-10-30] MEDS: INSULIN GLARGINE 100 UNIT/ML INSULN.PEN 30 UNIT SC (20:59)
[2024-10-31] VITALS (7 sets, daily range): BP systolic 111–128; BP diastolic 60–76; PULSE 52–76; RESP 17–23; TEMP 36–36.6; O2SAT 96–99
[2024-10-31] MEDS: IPRATROPIUM BROMIDE 200 PUFF/INH INHALER INH ×4 (00:34→19:38)
[2024-10-31] MEDS: ALBUTEROL INHALER 200 PUFF/INH INHALER INH ×4 (00:34→19:38)
[2024-10-31] MEDS: CYANOCOBALAMIN (VITAMIN B-12) 500 MCG TABLET 1000 MCG GT (09:00)
[2024-10-31] MEDS: DEXLANSOPRAZOLE 30 MG PO (09:00)
[2024-10-31] MEDS: MULTIVITAMIN W MINERALS 1 EACH TABLET GT (09:00)
[2024-10-31] MEDS: CARVEDILOL 3.125 MG TABLET GT (09:00)
[2024-10-31] MEDS: ATORVASTATIN 40 MG TABLET GT (21:02)
[2024-10-31] MEDS: INSULIN GLARGINE 100 UNIT/ML INSULN.PEN 30 UNIT SC (21:03)
--- NOTE | 2024-10-31 22:24 | PD.SAPROG ---
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 (3) Chronic respiratory failure, unspecified whether with hypoxia or hypercapnia: Status: Chronic (4) Hyperlipidemia, unspecified: Status: Chronic (5) Tracheostomy status: Status: Chronic (6) Chronic atrial fibrillation: Status: Chronic SUBJECTIVE Fever:: none GI:: none Shortness of Breath:: none Pain:: none OBJECTIVE Most recent vital signs: Last Vital Signs Temp 96.8 F 10/31/24 05:21 Pulse 70 10/31/24 19:40 Resp 20 10/31/24 19:40 BP 128/64 10/31/24 09:00 Pulse Ox 99 10/31/24 19:40 O2 Del Method Mechanical Ventilation 10/30/24 17:54 O2 Flow Rate 6 10/26/24 16:55 FiO2 30 10/31/24 19:40 Neurological:: PVS Speech:: none Answers questions:: no Respiratory:: lungs clear Cardiovascular: irregular Abdomen: soft and nontender Extremities:: deformities (Spastic contractures of extremities) Decubitus:: none Tracheostomy:: to blow by Feeding per:: G tube Complaints:: none ASSESSMENT & PLAN Assessment: Pt remains essentially PVS for years. Prognosis for independent living is poor. No pain/ discomfort. Tolerates feeding. Pt started on Ventilator support because of acute drop in O2 saturatios and breathing pattern VSS. Ventilator not weanable. Monitor skin lesion and if it grows then a surgery consult. So far stable. Weaning trials . Plan: Current treatment reviewed and continued. Ventilator settings were revised recently to adjust to demand.
[2024-11-01] VITALS (11 sets, daily range): BP systolic 100–132; BP diastolic 45–74; PULSE 58–69; RESP 17–30; TEMP 36–36.4; O2SAT 98–99
[2024-11-01] MEDS: IPRATROPIUM BROMIDE 200 PUFF/INH INHALER INH ×4 (00:26→18:53)
[2024-11-01] MEDS: ALBUTEROL INHALER 200 PUFF/INH INHALER INH ×4 (00:26→18:53)
[2024-11-01] MEDS: CARVEDILOL 3.125 MG TABLET GT (08:51)
[2024-11-01] MEDS: CYANOCOBALAMIN (VITAMIN B-12) 500 MCG TABLET 1000 MCG GT (08:53)
[2024-11-01] MEDS: DEXLANSOPRAZOLE 30 MG PO (08:53)
[2024-11-01] MEDS: MULTIVITAMIN W MINERALS 1 EACH TABLET GT (08:53)
[2024-11-01] MEDS: ATORVASTATIN 40 MG TABLET GT (21:09)
[2024-11-01] MEDS: INSULIN GLARGINE 100 UNIT/ML INSULN.PEN 30 UNIT SC (21:15)
[2024-11-02] VITALS (11 sets, daily range): BP systolic 118–138; BP diastolic 60–77; PULSE 52–98; RESP 17–22; TEMP 36–36.3; O2SAT 94–99
[2024-11-02] MEDS: IPRATROPIUM BROMIDE 200 PUFF/INH INHALER INH ×4 (00:29→17:27)
[2024-11-02] MEDS: ALBUTEROL INHALER 200 PUFF/INH INHALER INH ×4 (00:29→17:26)
[2024-11-02] MEDS: CARVEDILOL 3.125 MG TABLET GT (09:14)
[2024-11-02] MEDS: CYANOCOBALAMIN (VITAMIN B-12) 500 MCG TABLET 1000 MCG GT (09:16)
[2024-11-02] MEDS: DEXLANSOPRAZOLE 30 MG PO (09:16)
[2024-11-02] MEDS: MULTIVITAMIN W MINERALS 1 EACH TABLET GT (09:17)
--- NOTE | 2024-11-02 14:09 | PC.SS ---
Resident received ashes for marc Wednesday, RP gave permission for resident to participate. Ashes provided by spiritual care team with lease buyer.
[2024-11-02] MEDS: ATORVASTATIN 40 MG TABLET GT (20:48)
[2024-11-02] MEDS: PHENYLEPHRINE GT (20:51)
[2024-11-02] MEDS: DEXTROMETHORPHAN GT (20:51)
[2024-11-02] MEDS: GUAIFENESIN GT (20:51)
[2024-11-02] MEDS: INSULIN GLARGINE 100 UNIT/ML INSULN.PEN 30 UNIT SC (20:59)
[2024-11-03] VITALS (8 sets, daily range): BP systolic 93–145; BP diastolic 44–78; PULSE 50–88; RESP 18–20; TEMP 36.1–36.7; O2SAT 96–100
[2024-11-03] MEDS: IPRATROPIUM BROMIDE 200 PUFF/INH INHALER INH ×4 (00:59→16:28)
[2024-11-03] MEDS: ALBUTEROL INHALER 200 PUFF/INH INHALER INH ×4 (00:59→16:57)
[2024-11-03] MEDS: CARVEDILOL 3.125 MG TABLET GT (09:09)
[2024-11-03] MEDS: CYANOCOBALAMIN (VITAMIN B-12) 500 MCG TABLET 1000 MCG GT (09:09)
[2024-11-03] MEDS: DEXLANSOPRAZOLE 30 MG PO (09:09)
[2024-11-03] MEDS: MULTIVITAMIN W MINERALS 1 EACH TABLET GT (09:09)
--- NOTE | 2024-11-03 14:12 | PC.SS ---
Room visit: Resident is laying in bed with head of the bed elevated with call light properly placed with no signs of distress. Resident is unable to make needs known as he has absence of speech, his son is his decision maker. Resident went from vent to blow by, he will remain in current care on blow by with trach in place and GT for medication and nutrition. Resident will continue to have all subacute care needs met by staff. This SSD will continue to make daily contact with resident and monitor for changes in mood and behavior.
[2024-11-03] MEDS: ATORVASTATIN 40 MG TABLET GT (20:34)
[2024-11-03] MEDS: INSULIN GLARGINE 100 UNIT/ML INSULN.PEN 30 UNIT SC (20:40)
[2024-11-04] VITALS (8 sets, daily range): BP systolic 106–134; BP diastolic 58–82; PULSE 52–90; RESP 18–20; TEMP 36.1; O2SAT 97–100
[2024-11-04] MEDS: ALBUTEROL INHALER 200 PUFF/INH INHALER INH ×4 (01:33→16:56)
[2024-11-04] MEDS: IPRATROPIUM BROMIDE 200 PUFF/INH INHALER INH ×4 (01:33→16:56)
[2024-11-04] MEDS: CYANOCOBALAMIN (VITAMIN B-12) 500 MCG TABLET 1000 MCG GT (08:37)
[2024-11-04] MEDS: CARVEDILOL 3.125 MG TABLET GT (08:37)
[2024-11-04] MEDS: MULTIVITAMIN W MINERALS 1 EACH TABLET GT (08:38)
[2024-11-04] MEDS: DEXLANSOPRAZOLE 30 MG PO (08:38)
--- NOTE | 2024-11-04 20:49 | PD.SAPROG ---
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 (3) Chronic respiratory failure, unspecified whether with hypoxia or hypercapnia: Status: Chronic (4) Hyperlipidemia, unspecified: Status: Chronic (5) Tracheostomy status: Status: Chronic (6) Chronic atrial fibrillation: Status: Chronic SUBJECTIVE Fever:: none GI:: none Shortness of Breath:: none Pain:: none OBJECTIVE Most recent vital signs: Last Vital Signs Temp 96.9 F 11/04/24 16:42 Pulse 66 11/04/24 16:45 Resp 18 11/04/24 16:45 BP 122/74 11/04/24 16:42 Pulse Ox 98 11/04/24 16:45 O2 Del Method Mechanical Ventilation 11/04/24 11:16 O2 Flow Rate 6 11/04/24 16:45 FiO2 30 11/04/24 16:45 Neurological:: PVS Speech:: none Answers questions:: no Respiratory:: lungs clear Cardiovascular: irregular Abdomen: soft and nontender Extremities:: deformities (Spastic contractures of extremities) Decubitus:: none Tracheostomy:: to blow by Feeding per:: G tube Complaints:: none ASSESSMENT & PLAN Assessment: Pt remains essentially PVS for years. Prognosis for independent living is poor. No pain/ discomfort. Tolerates feeding. Pt started on Ventilator support because of acute drop in O2 saturatios and breathing pattern VSS. Ventilator not weanable. Monitor skin lesion and if it grows then a surgery consult. So far stable. Weaning trials . Plan: Current treatment reviewed and continued. Ventilator settings were revised recently to adjust to demand.
[2024-11-04] MEDS: ATORVASTATIN 40 MG TABLET GT (21:33)
[2024-11-04] MEDS: INSULIN GLARGINE 100 UNIT/ML INSULN.PEN 30 UNIT SC (21:33)
[2024-11-05] VITALS (9 sets, daily range): BP systolic 96–127; BP diastolic 55–73; PULSE 58–74; RESP 17–20; TEMP 35.8–36.3; O2SAT 98–100
[2024-11-05] MEDS: IPRATROPIUM BROMIDE 200 PUFF/INH INHALER INH ×4 (00:32→20:02)
[2024-11-05] MEDS: ALBUTEROL INHALER 200 PUFF/INH INHALER INH ×4 (00:32→20:00)
[2024-11-05] MEDS: CARVEDILOL 3.125 MG TABLET GT (09:33)
[2024-11-05] MEDS: DEXLANSOPRAZOLE 30 MG PO (09:35)
[2024-11-05] MEDS: MULTIVITAMIN W MINERALS 1 EACH TABLET GT (09:35)
[2024-11-05] MEDS: CYANOCOBALAMIN (VITAMIN B-12) 500 MCG TABLET 1000 MCG GT (09:35)
[2024-11-05] MEDS: ATORVASTATIN 40 MG TABLET GT (20:46)
[2024-11-05] MEDS: INSULIN GLARGINE 100 UNIT/ML INSULN.PEN 30 UNIT SC (20:46)
[2024-11-06] VITALS (9 sets, daily range): BP systolic 108–140; BP diastolic 58–80; PULSE 52–74; RESP 16–22; TEMP 36.1–36.3; O2SAT 94–100; BMI 24.0
[2024-11-06] MEDS: ALBUTEROL INHALER 200 PUFF/INH INHALER INH ×4 (00:11→18:29)
[2024-11-06] MEDS: IPRATROPIUM BROMIDE 200 PUFF/INH INHALER INH ×4 (00:11→18:29)
[2024-11-06] MEDS: CARVEDILOL 3.125 MG TABLET GT (09:32)
[2024-11-06] MEDS: CYANOCOBALAMIN (VITAMIN B-12) 500 MCG TABLET 1000 MCG GT (09:33)
[2024-11-06] MEDS: MULTIVITAMIN W MINERALS 1 EACH TABLET GT (09:34)
[2024-11-06] MEDS: DEXLANSOPRAZOLE 30 MG PO (09:34)
[2024-11-06] MEDS: ATORVASTATIN 40 MG TABLET GT (21:48)
[2024-11-06] MEDS: INSULIN GLARGINE 100 UNIT/ML INSULN.PEN 30 UNIT SC (21:51)
[2024-11-07] VITALS (9 sets, daily range): BP systolic 111–141; BP diastolic 63–75; PULSE 56–83; RESP 16–36; TEMP 35.9–36.6; O2SAT 99–100
[2024-11-07] MEDS: IPRATROPIUM BROMIDE 200 PUFF/INH INHALER INH ×3 (02:08→19:49)
[2024-11-07] MEDS: ALBUTEROL INHALER 200 PUFF/INH INHALER INH ×4 (02:08→19:49)
[2024-11-07] MEDS: CARVEDILOL 3.125 MG TABLET GT (09:17)
[2024-11-07] MEDS: DEXLANSOPRAZOLE 30 MG PO (09:20)
[2024-11-07] MEDS: CYANOCOBALAMIN (VITAMIN B-12) 500 MCG TABLET 1000 MCG GT (09:20)
[2024-11-07] MEDS: MULTIVITAMIN W MINERALS 1 EACH TABLET GT (09:20)
[2024-11-07] MEDS: ATORVASTATIN 40 MG TABLET GT (20:16)
[2024-11-07] MEDS: INSULIN GLARGINE 100 UNIT/ML INSULN.PEN 30 UNIT SC (21:19)
[2024-11-08] VITALS (9 sets, daily range): BP systolic 104–135; BP diastolic 58–79; PULSE 52–84; RESP 16–22; TEMP 36.1–36.3; O2SAT 95–100
[2024-11-08] MEDS: IPRATROPIUM BROMIDE 200 PUFF/INH INHALER INH ×4 (01:11→19:55)
[2024-11-08] MEDS: ALBUTEROL INHALER 200 PUFF/INH INHALER INH ×4 (01:11→19:55)
[2024-11-08] MEDS: CARVEDILOL 3.125 MG TABLET GT (08:19)
[2024-11-08] MEDS: DEXLANSOPRAZOLE 30 MG PO (08:19)
[2024-11-08] MEDS: CYANOCOBALAMIN (VITAMIN B-12) 500 MCG TABLET 1000 MCG GT (08:19)
[2024-11-08] MEDS: MULTIVITAMIN W MINERALS 1 EACH TABLET GT (08:19)
--- NOTE | 2024-11-08 15:00 | PD.SAPROG ---
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 (3) Chronic respiratory failure, unspecified whether with hypoxia or hypercapnia: Status: Chronic (4) Hyperlipidemia, unspecified: Status: Chronic (5) Tracheostomy status: Status: Chronic (6) Chronic atrial fibrillation: Status: Chronic SUBJECTIVE Fever:: none GI:: none Shortness of Breath:: none Pain:: none OBJECTIVE Most recent vital signs: Last Vital Signs Temp 97.2 F 11/12/24 18:00 Pulse 69 11/12/24 18:00 Resp 18 11/12/24 18:00 BP 142/73 H 11/12/24 18:00 Pulse Ox 100 11/12/24 18:00 O2 Del Method Blow-by 11/12/24 18:00 O2 Flow Rate 8 11/12/24 17:08 FiO2 30 11/12/24 17:08 Neurological:: PVS Speech:: none Answers questions:: no Respiratory:: lungs clear Cardiovascular: irregular Abdomen: soft and nontender Extremities:: deformities (Spastic contractures of extremities) Decubitus:: none Tracheostomy:: to blow by Feeding per:: G tube Complaints:: none ASSESSMENT & PLAN Assessment: Pt remains essentially PVS for years. Prognosis for independent living is poor. No pain/ discomfort. Tolerates feeding. Pt started on Ventilator support because of acute drop in O2 saturatios and breathing pattern VSS. Ventilator not weanable. Monitor skin lesion and if it grows then a surgery consult. So far stable. Weaning trials . Plan: Current treatment reviewed and continued. Ventilator settings were revised recently to adjust to demand.
[2024-11-08] MEDS: ATORVASTATIN 40 MG TABLET GT (20:44)
[2024-11-08] MEDS: INSULIN GLARGINE 100 UNIT/ML INSULN.PEN 30 UNIT SC (20:59)
[2024-11-09] VITALS (9 sets, daily range): BP systolic 103–133; BP diastolic 52–76; PULSE 52–62; RESP 16–23; TEMP 35.9–36.1; O2SAT 95–100
[2024-11-09] MEDS: IPRATROPIUM BROMIDE 200 PUFF/INH INHALER INH ×4 (00:59→19:28)
[2024-11-09] MEDS: ALBUTEROL INHALER 200 PUFF/INH INHALER INH ×4 (01:00→19:28)
[2024-11-09] MEDS: CARVEDILOL 3.125 MG TABLET GT (08:39)
[2024-11-09] MEDS: CYANOCOBALAMIN (VITAMIN B-12) 500 MCG TABLET 1000 MCG GT (08:40)
[2024-11-09] MEDS: MULTIVITAMIN W MINERALS 1 EACH TABLET GT (08:41)
[2024-11-09] MEDS: DEXLANSOPRAZOLE 30 MG PO (08:41)
[2024-11-09] MEDS: ATORVASTATIN 40 MG TABLET GT (20:25)
[2024-11-09] MEDS: INSULIN GLARGINE 100 UNIT/ML INSULN.PEN 30 UNIT SC (21:30)
[2024-11-10] VITALS (9 sets, daily range): BP systolic 106–137; BP diastolic 56–78; PULSE 47–65; RESP 16–20; TEMP 36.1–36.3; O2SAT 98–100
[2024-11-10] MEDS: ALBUTEROL INHALER 200 PUFF/INH INHALER INH ×4 (01:08→18:41)
[2024-11-10] MEDS: IPRATROPIUM BROMIDE 200 PUFF/INH INHALER INH ×4 (01:08→18:41)
[2024-11-10] MEDS: CARVEDILOL 3.125 MG TABLET GT (08:18)
[2024-11-10] MEDS: DEXLANSOPRAZOLE 30 MG PO (08:19)
[2024-11-10] MEDS: CYANOCOBALAMIN (VITAMIN B-12) 500 MCG TABLET 1000 MCG GT (08:19)
[2024-11-10] MEDS: MULTIVITAMIN W MINERALS 1 EACH TABLET GT (08:19)
--- NOTE | 2024-11-10 14:42 | PC.SS ---
Room visit: Resident is laying in bed with head of the bed elevated with call light properly placed with no signs of distress. Resident has no changes in condition, remains on blow by with trach in place and GT for medication and nutrition. Resident is unable to make needs known, decision maker is his son. Resident will remain in current care and will continue to have all subacute care needs met by staff. This SSD will make daily contact with resident and will monitor for changes in mood and behavior
--- NOTE | 2024-11-10 17:26 | PC.NURSE ---
Resident has been on BB for more than 7 days after mechanical ventilator was discontinued. O2 saturation noted to be on high 90s to 100%. As per RT on duty, resident has been tolerating well while on BB. No s/s of respiratory distress noted.
[2024-11-10] MEDS: ATORVASTATIN 40 MG TABLET GT (20:25)
[2024-11-11] VITALS (10 sets, daily range): BP systolic 92–139; BP diastolic 52–85; PULSE 49–85; RESP 17–20; TEMP 36.1–36.4; O2SAT 95–100
[2024-11-11] MEDS: ALBUTEROL INHALER 200 PUFF/INH INHALER INH ×4 (00:41→18:39)
[2024-11-11] MEDS: IPRATROPIUM BROMIDE 200 PUFF/INH INHALER INH ×4 (00:41→18:39)
[2024-11-11] MEDS: MULTIVITAMIN W MINERALS 1 EACH TABLET GT (08:55)
[2024-11-11] MEDS: DEXLANSOPRAZOLE 30 MG PO (08:56)
[2024-11-11] MEDS: CYANOCOBALAMIN (VITAMIN B-12) 500 MCG TABLET 1000 MCG GT (08:56)
--- NOTE | 2024-11-11 11:07 | PC.NURSE ---
Resident currently on Coreg 3.125 mg daily and was held this morning due to HR 49, B/P 92/52. B/P was recehecked at this time and noted to be 126/60, 50. No s/s of respiratory distress noted. Resident's HR readings has been noted to be between 47-85 and most of the time it s within 50s. Called Dr Ramires and made aware. Reported to MD also about resident's B/P readings. Order received to give the Coreg for 6x/week and skip every Wednesday.
[2024-11-11] MEDS: ATORVASTATIN 40 MG TABLET GT (20:31)
[2024-11-11] MEDS: INSULIN GLARGINE 100 UNIT/ML INSULN.PEN 30 UNIT SC (21:02)
[2024-11-11] MEDS: CARBAMIDE PEROXIDE OTIC SOL 15 ML BTL 5 DROP BOTH EARS (21:18)
[2024-11-12] VITALS (9 sets, daily range): BP systolic 103–142; BP diastolic 54–73; PULSE 48–70; RESP 16–19; TEMP 36.2–36.4; O2SAT 97–100
[2024-11-12] MEDS: ALBUTEROL INHALER 200 PUFF/INH INHALER INH ×4 (00:15→17:06)
[2024-11-12] MEDS: IPRATROPIUM BROMIDE 200 PUFF/INH INHALER INH ×4 (00:15→17:06)
[2024-11-12] MEDS: CARBAMIDE PEROXIDE OTIC SOL 15 ML BTL 5 DROP BOTH EARS ×2 (09:12→20:56)
[2024-11-12] MEDS: CARVEDILOL 3.125 MG TABLET GT (09:14)
[2024-11-12] MEDS: DEXLANSOPRAZOLE 30 MG PO (09:15)
[2024-11-12] MEDS: CYANOCOBALAMIN (VITAMIN B-12) 500 MCG TABLET 1000 MCG GT (09:15)
[2024-11-12] MEDS: MULTIVITAMIN W MINERALS 1 EACH TABLET GT (09:15)
[2024-11-12] MEDS: INSULIN GLARGINE 100 UNIT/ML INSULN.PEN 30 UNIT SC (20:48)
[2024-11-12] MEDS: ATORVASTATIN 40 MG TABLET GT (20:48)
[2024-11-13] VITALS (8 sets, daily range): BP systolic 106–137; BP diastolic 55–83; PULSE 48–80; RESP 16–20; TEMP 36.1–36.2; O2SAT 95–100
[2024-11-13] MEDS: IPRATROPIUM BROMIDE 200 PUFF/INH INHALER INH ×3 (01:29→18:03)
[2024-11-13] MEDS: ALBUTEROL INHALER 200 PUFF/INH INHALER INH ×3 (01:29→18:04)
[2024-11-13] MEDS: CARVEDILOL 3.125 MG TABLET GT (09:34)
[2024-11-13] MEDS: CYANOCOBALAMIN (VITAMIN B-12) 500 MCG TABLET 1000 MCG GT (09:34)
[2024-11-13] MEDS: MULTIVITAMIN W MINERALS 1 EACH TABLET GT (09:35)
[2024-11-13] MEDS: DEXLANSOPRAZOLE 30 MG PO (09:35)
[2024-11-13] MEDS: ATORVASTATIN 40 MG TABLET GT (20:38)
[2024-11-13] MEDS: INSULIN GLARGINE 100 UNIT/ML INSULN.PEN 30 UNIT SC (21:18)
[2024-11-14] VITALS (9 sets, daily range): BP systolic 100–136; BP diastolic 52–81; PULSE 50–97; RESP 16–19; TEMP 36.1; O2SAT 96–100
[2024-11-14] MEDS: IPRATROPIUM BROMIDE 200 PUFF/INH INHALER INH ×4 (01:30→18:49)
[2024-11-14] MEDS: ALBUTEROL INHALER 200 PUFF/INH INHALER INH ×3 (07:20→18:49)
[2024-11-14] MEDS: CARVEDILOL 3.125 MG TABLET GT (08:33)
[2024-11-14] MEDS: MULTIVITAMIN W MINERALS 1 EACH TABLET GT (08:34)
[2024-11-14] MEDS: DEXLANSOPRAZOLE 30 MG PO (08:34)
[2024-11-14] MEDS: CYANOCOBALAMIN (VITAMIN B-12) 500 MCG TABLET 1000 MCG GT (08:34)
[2024-11-14] MEDS: ATORVASTATIN 40 MG TABLET GT (20:23)
[2024-11-14] MEDS: INSULIN GLARGINE 100 UNIT/ML INSULN.PEN 30 UNIT SC (21:45)
[2024-11-15] VITALS (9 sets, daily range): BP systolic 109–139; BP diastolic 58–76; PULSE 52–76; RESP 16–20; TEMP 36.1–36.2; O2SAT 94–100
[2024-11-15] MEDS: ALBUTEROL INHALER 200 PUFF/INH INHALER INH ×4 (00:23→18:34)
[2024-11-15] MEDS: IPRATROPIUM BROMIDE 200 PUFF/INH INHALER INH ×4 (00:23→18:34)
[2024-11-15] MEDS: CYANOCOBALAMIN (VITAMIN B-12) 500 MCG TABLET 1000 MCG GT (08:08)
[2024-11-15] MEDS: DEXLANSOPRAZOLE 30 MG PO (08:08)
[2024-11-15] MEDS: MULTIVITAMIN W MINERALS 1 EACH TABLET GT (08:09)
[2024-11-15] MEDS: ATORVASTATIN 40 MG TABLET GT (20:17)
[2024-11-15] MEDS: INSULIN GLARGINE 100 UNIT/ML INSULN.PEN 30 UNIT SC (21:30)
[2024-11-16] VITALS (9 sets, daily range): BP systolic 97–145; BP diastolic 50–76; PULSE 44–79; RESP 16–20; TEMP 35.8–36.2; O2SAT 95–100
[2024-11-16] MEDS: IPRATROPIUM BROMIDE 200 PUFF/INH INHALER INH ×4 (00:23→18:35)
[2024-11-16] MEDS: ALBUTEROL INHALER 200 PUFF/INH INHALER INH ×5 (00:23→18:35)
[2024-11-16] MEDS: CARVEDILOL 3.125 MG TABLET GT (09:14)
[2024-11-16] MEDS: CYANOCOBALAMIN (VITAMIN B-12) 500 MCG TABLET 1000 MCG GT (09:14)
[2024-11-16] MEDS: DEXLANSOPRAZOLE 30 MG PO (09:15)
[2024-11-16] MEDS: MULTIVITAMIN W MINERALS 1 EACH TABLET GT (09:15)
[2024-11-16] MEDS: CARBAMIDE PEROXIDE OTIC SOL 15 ML BTL 5 DROP BOTH EARS ×2 (10:30→20:51)
--- NOTE | 2024-11-16 10:57 | PD.SAPROG ---
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 (3) Chronic respiratory failure, unspecified whether with hypoxia or hypercapnia: Status: Chronic (4) Hyperlipidemia, unspecified: Status: Chronic (5) Tracheostomy status: Status: Chronic (6) Chronic atrial fibrillation: Status: Chronic SUBJECTIVE Fever:: none GI:: none Shortness of Breath:: none Pain:: none OBJECTIVE Most recent vital signs: Last Vital Signs Temp 97.1 F 11/16/24 06:00 Pulse 65 11/16/24 09:14 Resp 18 11/16/24 06:42 BP 127/64 11/16/24 09:14 Pulse Ox 95 11/16/24 06:42 O2 Del Method Blow-by 11/16/24 06:00 O2 Flow Rate 8 11/16/24 06:42 FiO2 30 11/16/24 06:42 Neurological:: PVS Speech:: none Answers questions:: no Respiratory:: lungs clear Cardiovascular: irregular Abdomen: soft and nontender Extremities:: deformities (Spastic contractures of extremities) Decubitus:: none Tracheostomy:: to blow by Feeding per:: G tube Complaints:: none ASSESSMENT & PLAN Assessment: Pt remains essentially PVS for years. Prognosis for independent living is poor. No pain/ discomfort. Tolerates feeding. Pt started on Ventilator support because of acute drop in O2 saturatios and breathing pattern VSS. Ventilator not weanable. Weaning trials not well tolerated . Plan: Current treatment reviewed and continued. Ventilator settings were revised recently to adjust to demand.
--- NOTE | 2024-11-16 19:37 | PD.SAPROG ---
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 (3) Chronic respiratory failure, unspecified whether with hypoxia or hypercapnia: Status: Chronic (4) Hyperlipidemia, unspecified: Status: Chronic (5) Tracheostomy status: Status: Chronic (6) Chronic atrial fibrillation: Status: Chronic SUBJECTIVE Fever:: none GI:: none Shortness of Breath:: none Pain:: none OBJECTIVE Most recent vital signs: Last Vital Signs Temp 96.7 F L 11/16/24 17:46 Pulse 45 L 11/16/24 17:46 Resp 17 11/16/24 17:46 BP 118/53 L 11/16/24 17:46 Pulse Ox 100 11/16/24 17:46 O2 Del Method Blow-by 11/16/24 17:46 O2 Flow Rate 8 11/16/24 12:16 FiO2 30 11/16/24 12:16 Neurological:: PVS Speech:: none Answers questions:: no Respiratory:: lungs clear Cardiovascular: irregular Abdomen: soft and nontender Extremities:: deformities (Spastic contractures of extremities) Decubitus:: none Tracheostomy:: to blow by Feeding per:: G tube Complaints:: none ASSESSMENT & PLAN Assessment: Pt remains essentially PVS for years. Prognosis for independent living is poor. No pain/ discomfort. Tolerates feeding. Pt started on Ventilator support because of acute drop in O2 saturatios and breathing pattern VSS. Ventilator not weanable. Weaning trials not well tolerated . Plan: Current treatment reviewed and continued. Ventilator settings were revised recently to adjust to demand.
[2024-11-16] MEDS: ATORVASTATIN 40 MG TABLET GT (20:51)
[2024-11-16] MEDS: INSULIN GLARGINE 100 UNIT/ML INSULN.PEN 30 UNIT SC (21:01)
[2024-11-17] VITALS (9 sets, daily range): BP systolic 104–139; BP diastolic 66–84; PULSE 58–77; RESP 18–20; TEMP 36.1–36.3; O2SAT 96–99
[2024-11-17] MEDS: ALBUTEROL INHALER 200 PUFF/INH INHALER INH ×3 (06:43→18:30)
[2024-11-17] MEDS: IPRATROPIUM BROMIDE 200 PUFF/INH INHALER INH ×3 (06:44→18:30)
[2024-11-17] MEDS: CARBAMIDE PEROXIDE OTIC SOL 15 ML BTL 5 DROP BOTH EARS ×2 (08:53→20:35)
[2024-11-17] MEDS: DEXLANSOPRAZOLE 30 MG PO (08:54)
[2024-11-17] MEDS: CYANOCOBALAMIN (VITAMIN B-12) 500 MCG TABLET 1000 MCG GT (08:54)
[2024-11-17] MEDS: CARVEDILOL 3.125 MG TABLET GT (08:54)
[2024-11-17] MEDS: MULTIVITAMIN W MINERALS 1 EACH TABLET GT (08:55)
[2024-11-17] MEDS: ATORVASTATIN 40 MG TABLET GT (20:34)
[2024-11-17] MEDS: INSULIN GLARGINE 100 UNIT/ML INSULN.PEN 30 UNIT SC (20:35)
[2024-11-18] VITALS (7 sets, daily range): BP systolic 103–126; BP diastolic 53–59; PULSE 50–73; RESP 16–20; TEMP 36.1–36.3; O2SAT 96–99
[2024-11-18] MEDS: IPRATROPIUM BROMIDE 200 PUFF/INH INHALER INH ×4 (01:14→18:10)
[2024-11-18] MEDS: ALBUTEROL INHALER 200 PUFF/INH INHALER INH ×4 (01:14→18:10)
[2024-11-18] MEDS: CARBAMIDE PEROXIDE OTIC SOL 15 ML BTL 5 DROP BOTH EARS ×2 (09:49→20:25)
[2024-11-18] MEDS: CYANOCOBALAMIN (VITAMIN B-12) 500 MCG TABLET 1000 MCG GT (09:49)
[2024-11-18] MEDS: DEXLANSOPRAZOLE 30 MG PO (09:50)
[2024-11-18] MEDS: MULTIVITAMIN W MINERALS 1 EACH TABLET GT (09:50)
[2024-11-18] MEDS: ATORVASTATIN 40 MG TABLET GT (20:25)
[2024-11-18] MEDS: INSULIN GLARGINE 100 UNIT/ML INSULN.PEN 30 UNIT SC (20:25)
[2024-11-19] VITALS (9 sets, daily range): BP systolic 97–131; BP diastolic 48–74; PULSE 50–71; RESP 16–19; TEMP 36.1–36.4; O2SAT 95–100
[2024-11-19] MEDS: IPRATROPIUM BROMIDE 200 PUFF/INH INHALER INH ×4 (00:20→16:58)
[2024-11-19] MEDS: ALBUTEROL INHALER 200 PUFF/INH INHALER INH ×4 (00:20→16:58)
[2024-11-19] MEDS: CARBAMIDE PEROXIDE OTIC SOL 15 ML BTL 5 DROP BOTH EARS (08:40)
[2024-11-19] MEDS: DEXLANSOPRAZOLE 30 MG PO (08:41)
[2024-11-19] MEDS: CYANOCOBALAMIN (VITAMIN B-12) 500 MCG TABLET 1000 MCG GT (08:41)
[2024-11-19] MEDS: MULTIVITAMIN W MINERALS 1 EACH TABLET GT (08:42)
[2024-11-19] MEDS: ATORVASTATIN 40 MG TABLET GT (20:54)
[2024-11-19] MEDS: INSULIN GLARGINE 100 UNIT/ML INSULN.PEN 30 UNIT SC (21:29)
[2024-11-20] VITALS (9 sets, daily range): BP systolic 106–138; BP diastolic 51–70; PULSE 50–69; RESP 17–18; TEMP 36.1–36.6; O2SAT 97–100
[2024-11-20] MEDS: IPRATROPIUM BROMIDE 200 PUFF/INH INHALER INH ×4 (00:18→17:09)
[2024-11-20] MEDS: ALBUTEROL INHALER 200 PUFF/INH INHALER INH ×4 (00:18→17:09)
[2024-11-20] MEDS: CARVEDILOL 3.125 MG TABLET GT (08:50)
[2024-11-20] MEDS: MULTIVITAMIN W MINERALS 1 EACH TABLET GT (08:50)
[2024-11-20] MEDS: DEXLANSOPRAZOLE 30 MG PO (08:50)
[2024-11-20] MEDS: CYANOCOBALAMIN (VITAMIN B-12) 500 MCG TABLET 1000 MCG GT (08:50)
--- NOTE | 2024-11-20 19:47 | PD.SAPROG ---
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 (3) Chronic respiratory failure, unspecified whether with hypoxia or hypercapnia: Status: Chronic (4) Hyperlipidemia, unspecified: Status: Chronic (5) Tracheostomy status: Status: Chronic (6) Chronic atrial fibrillation: Status: Chronic SUBJECTIVE Fever:: none GI:: none Shortness of Breath:: none Pain:: none OBJECTIVE Most recent vital signs: Last Vital Signs Temp 96.9 F 11/20/24 17:37 Pulse 50 L 11/20/24 17:37 Resp 17 11/20/24 17:37 BP 106/59 L 11/20/24 17:37 Pulse Ox 98 11/20/24 17:37 O2 Del Method Blow-by 11/20/24 17:37 O2 Flow Rate 8 11/20/24 17:09 FiO2 30 11/20/24 17:09 Neurological:: PVS Speech:: none Answers questions:: no Respiratory:: lungs clear Cardiovascular: irregular Abdomen: soft and nontender Extremities:: deformities (Spastic contractures of extremities) Decubitus:: none Tracheostomy:: to blow by Feeding per:: G tube Complaints:: none ASSESSMENT & PLAN Assessment: Pt remains essentially PVS for years. Prognosis for independent living is poor. No pain/ discomfort. Tolerates feeding. Pt started on Ventilator support because of acute drop in O2 saturatios and breathing pattern VSS. Ventilator not weanable. Weaning trials not well tolerated . Plan: Current treatment reviewed and continued. Ventilator settings were revised recently to adjust to demand.
[2024-11-20] MEDS: ATORVASTATIN 40 MG TABLET GT (21:09)
[2024-11-20] MEDS: INSULIN GLARGINE 100 UNIT/ML INSULN.PEN 30 UNIT SC (21:48)
[2024-11-21] VITALS (9 sets, daily range): BP systolic 97–119; BP diastolic 48–71; PULSE 52–77; RESP 18–22; TEMP 36–36.6; O2SAT 96–100
[2024-11-21] MEDS: ALBUTEROL INHALER 200 PUFF/INH INHALER INH ×4 (00:27→19:16)
[2024-11-21] MEDS: IPRATROPIUM BROMIDE 200 PUFF/INH INHALER INH ×3 (06:00→19:16)
[2024-11-21] MEDS: CARVEDILOL 3.125 MG TABLET GT (08:40)
[2024-11-21] MEDS: MULTIVITAMIN W MINERALS 1 EACH TABLET GT (08:42)
[2024-11-21] MEDS: CYANOCOBALAMIN (VITAMIN B-12) 500 MCG TABLET 1000 MCG GT (08:42)
[2024-11-21] MEDS: DEXLANSOPRAZOLE 30 MG PO (08:42)
[2024-11-21] MEDS: ATORVASTATIN 40 MG TABLET GT (21:09)
[2024-11-21] MEDS: INSULIN GLARGINE 100 UNIT/ML INSULN.PEN 30 UNIT SC (21:59)
[2024-11-22] VITALS (9 sets, daily range): BP systolic 98–135; BP diastolic 55–74; PULSE 57–86; RESP 18–22; TEMP 36.2–36.6; O2SAT 93–98
[2024-11-22] MEDS: IPRATROPIUM BROMIDE 200 PUFF/INH INHALER INH ×4 (00:48→18:36)
[2024-11-22] MEDS: ALBUTEROL INHALER 200 PUFF/INH INHALER INH ×4 (00:48→18:36)
[2024-11-22] MEDS: CYANOCOBALAMIN (VITAMIN B-12) 500 MCG TABLET 1000 MCG GT (08:31)
[2024-11-22] MEDS: CARVEDILOL 3.125 MG TABLET GT (08:31)
[2024-11-22] MEDS: DEXLANSOPRAZOLE 30 MG PO (08:32)
[2024-11-22] MEDS: MULTIVITAMIN W MINERALS 1 EACH TABLET GT (08:32)
[2024-11-22] MEDS: ATORVASTATIN 40 MG TABLET GT (21:24)
[2024-11-22] MEDS: INSULIN GLARGINE 100 UNIT/ML INSULN.PEN 30 UNIT SC (21:24)
[2024-11-23] VITALS (9 sets, daily range): BP systolic 115–140; BP diastolic 54–78; PULSE 50–67; RESP 16–20; TEMP 36–36.7; O2SAT 97–98
[2024-11-23] MEDS: IPRATROPIUM/ALBUTEROL 3 ML AMPUL.NEB INH (00:27)
[2024-11-23] MEDS: IPRATROPIUM BROMIDE 200 PUFF/INH INHALER INH ×3 (07:13→17:12)
[2024-11-23] MEDS: ALBUTEROL INHALER 200 PUFF/INH INHALER INH ×3 (07:13→17:12)
--- NOTE | 2024-11-23 07:57 | PC.SS ---
Room visit: Resident is laying in bed with head of the bed elevated with call light properly placed with no signs of distress. Resident is non verbal, unable to make needs known. Resident is represented by his son. Resident will remain in current care as he has no changes in care or condition. He remains on blow by with trach in place and GT for medication and nutrition. This SSD will continue to make daily contact with resident and will monitor for changes in mood and behavior.
[2024-11-23] MEDS: CARVEDILOL 3.125 MG TABLET GT (08:35)
[2024-11-23] MEDS: CYANOCOBALAMIN (VITAMIN B-12) 500 MCG TABLET 1000 MCG GT (08:36)
[2024-11-23] MEDS: MULTIVITAMIN W MINERALS 1 EACH TABLET GT (08:36)
[2024-11-23] MEDS: DEXLANSOPRAZOLE 30 MG PO (08:36)
[2024-11-23] MEDS: ATORVASTATIN 40 MG TABLET GT (21:21)
[2024-11-23] MEDS: INSULIN GLARGINE 100 UNIT/ML INSULN.PEN 30 UNIT SC (21:26)
[2024-11-24] VITALS (8 sets, daily range): BP systolic 97–123; BP diastolic 58–78; PULSE 55–82; RESP 17–20; TEMP 35.9–36.1; O2SAT 92–100
[2024-11-24] MEDS: ALBUTEROL INHALER 200 PUFF/INH INHALER INH ×3 (01:08→13:40)
[2024-11-24] MEDS: IPRATROPIUM BROMIDE 200 PUFF/INH INHALER INH ×4 (01:08→18:13)
[2024-11-24] MEDS: MULTIVITAMIN W MINERALS 1 EACH TABLET GT (08:48)
[2024-11-24] MEDS: DEXLANSOPRAZOLE 30 MG PO (08:48)
[2024-11-24] MEDS: CYANOCOBALAMIN (VITAMIN B-12) 500 MCG TABLET 1000 MCG GT (08:48)
[2024-11-24] MEDS: CARVEDILOL 3.125 MG TABLET GT (08:48)
--- NOTE | 2024-11-24 14:07 | PC.SS ---
Room change: Resident went from room 123B in to room 120B, this SSD called and notified RUTH ANN Gregory. RP had no questions or concerns regarding the move. This SSD will follow up with resident to ensure both residents are compatible and adjusting well.
[2024-11-24] MEDS: IPRATROPIUM/ALBUTEROL 3 ML AMPUL.NEB INH (16:09)
[2024-11-24] MEDS: ATORVASTATIN 40 MG TABLET GT (20:00)
[2024-11-24] MEDS: INSULIN GLARGINE 100 UNIT/ML INSULN.PEN 30 UNIT SC (21:15)
[2024-11-25] VITALS (8 sets, daily range): BP systolic 105–119; BP diastolic 53–71; PULSE 53–74; RESP 17–20; TEMP 36.2–37.3; O2SAT 95–98
[2024-11-25] MEDS: ALBUTEROL INHALER 200 PUFF/INH INHALER INH ×4 (01:16→19:01)
[2024-11-25] MEDS: IPRATROPIUM BROMIDE 200 PUFF/INH INHALER INH ×4 (01:16→19:01)
[2024-11-25] MEDS: CYANOCOBALAMIN (VITAMIN B-12) 500 MCG TABLET 1000 MCG GT (09:50)
[2024-11-25] MEDS: MULTIVITAMIN W MINERALS 1 EACH TABLET GT (09:50)
[2024-11-25] MEDS: DEXLANSOPRAZOLE 30 MG PO (09:50)
--- NOTE | 2024-11-25 20:02 | PD.SAPROG ---
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 (3) Chronic respiratory failure, unspecified whether with hypoxia or hypercapnia: Status: Chronic (4) Hyperlipidemia, unspecified: Status: Chronic (5) Tracheostomy status: Status: Chronic (6) Chronic atrial fibrillation: Status: Chronic SUBJECTIVE Fever:: none GI:: none Shortness of Breath:: none Pain:: none OBJECTIVE Most recent vital signs: Last Vital Signs Temp 97.1 F 11/25/24 17:44 Pulse 60 11/25/24 17:44 Resp 17 11/25/24 17:44 BP 119/61 11/25/24 17:44 Pulse Ox 96 11/25/24 17:44 O2 Del Method Mechanical Ventilation 11/24/24 05:22 O2 Flow Rate 8 11/25/24 12:40 FiO2 30 11/25/24 12:40 Neurological:: PVS Speech:: none Answers questions:: no Respiratory:: lungs clear Cardiovascular: irregular Abdomen: soft and nontender Extremities:: deformities (Spastic contractures of extremities) Decubitus:: none Tracheostomy:: to blow by Feeding per:: G tube Complaints:: none ASSESSMENT & PLAN Assessment: Pt remains essentially PVS for years. Prognosis for independent living is poor. No pain/ discomfort. Tolerates feeding. Pt started on Ventilator support because of acute drop in O2 saturatios and breathing pattern VSS. Ventilator not weanable. Weaning trials not well tolerated . Plan: Current treatment reviewed and continued. Ventilator settings were revised recently to adjust to demand.
[2024-11-25] MEDS: ATORVASTATIN 40 MG TABLET GT (20:26)
[2024-11-25] MEDS: INSULIN GLARGINE 100 UNIT/ML INSULN.PEN 30 UNIT SC (21:23)
[2024-11-26] VITALS (12 sets, daily range): BP systolic 104–154; BP diastolic 64–84; PULSE 63–89; RESP 17–30; TEMP 36.1–36.8; O2SAT 95–100
[2024-11-26] MEDS: ALBUTEROL INHALER 200 PUFF/INH INHALER INH ×5 (00:48→23:01)
[2024-11-26] MEDS: IPRATROPIUM BROMIDE 200 PUFF/INH INHALER INH ×4 (00:48→18:34)
[2024-11-26] MEDS: IPRATROPIUM/ALBUTEROL 3 ML AMPUL.NEB INH (09:12)
[2024-11-26] MEDS: CARVEDILOL 3.125 MG TABLET GT (09:30)
[2024-11-26] MEDS: CYANOCOBALAMIN (VITAMIN B-12) 500 MCG TABLET 1000 MCG GT (09:30)
[2024-11-26] MEDS: MULTIVITAMIN W MINERALS 1 EACH TABLET GT (09:30)
[2024-11-26] MEDS: DEXLANSOPRAZOLE 30 MG PO (09:30)
[2024-11-26] MEDS: ACETAMINOPHEN 325 MG TABLET 650 MG GT (09:32)
--- NOTE | 2024-11-26 12:26 | PC.NURSE ---
Resident RR is elevated, saturation rate was low resident having SOB, RT give the breathing treatment, and still resident hasn't improve, called Dr. Simeon informed that the resident was on the vent before and RT is asking if resident will put on a vent. Dr. Simeon was ok to put resident on vent and if resident doesn't improve send resident to E.R.
[2024-11-26] MEDS: ATORVASTATIN 40 MG TABLET GT (20:05)
[2024-11-26] MEDS: INSULIN GLARGINE 100 UNIT/ML INSULN.PEN 30 UNIT SC (21:12)
[2024-11-27] VITALS (8 sets, daily range): BP systolic 122–174; BP diastolic 63–94; PULSE 60–112; RESP 23–38; TEMP 36.2–37.7; O2SAT 96–99
[2024-11-27] MEDS: ALBUTEROL INHALER 200 PUFF/INH INHALER INH ×3 (00:26→18:30)
[2024-11-27] MEDS: IPRATROPIUM BROMIDE 200 PUFF/INH INHALER INH ×3 (00:26→18:30)
--- NOTE | 2024-11-27 01:34 | XR_ITS ---
Examination: AP chest single view Technique one AP portable semiupright chest single view Exam date and time: November 27, 2024 0240 hours Comparison September 18, 2024 INDICATIONS: Bloody breathing this week. FINDINGS: Interval significant left base pneumonia Mild enlargement cardiac contour Mild vascular congestion. Tracheostomy tube tip 6.7 cm above carlo IMPRESSION: Interval significant left base pneumonia
--- NOTE | 2024-11-27 05:33 | PC.NURSE ---
Resident has been having shortness of breath, increased respiratory rate and work of breathing, multiple breathing treatments given which were effective. At approximately 0430 was called into room by staff, resident received breathing treatment was ineffective, increased RR and work of breathing, chest x-ray was ordered but not read yet. Vitals 175/94, 112, 38, 99.9 and 96% on ventilator 40% FiO2, notifed MD with new order to send resident to ER for further evaluation. Called Charge nurse Chavez and gave verbal report, resident sent to ER at 0450 accompanied by nurse and RT via bed to room 8.
[2024-11-27] MEDS: ACETAMINOPHEN 325 MG TABLET 650 MG GT ×2 (11:30→21:49)
[2024-11-27] MEDS: DEXLANSOPRAZOLE 30 MG PO (11:45)
[2024-11-27] MEDS: CARVEDILOL 3.125 MG TABLET GT (11:45)
[2024-11-27] MEDS: CYANOCOBALAMIN (VITAMIN B-12) 500 MCG TABLET 1000 MCG GT (11:45)
[2024-11-27] MEDS: MULTIVITAMIN W MINERALS 1 EACH TABLET GT (11:45)
[2024-11-27] MEDS: levoFLOXacin 500 MG TABLET 750 MG GT (13:00)
--- NOTE | 2024-11-27 19:29 | PC.NURSE ---
Resident returned from the Emergency room, he remains on the ventilator.His vital signs are stable at this time. 98.7-74-24 B/p is 122/67. will continue to monitor. Resident was started on antibiotic for septic Pneumonia.
[2024-11-27] MEDS: ATORVASTATIN 40 MG TABLET GT (21:36)
[2024-11-27] MEDS: INSULIN GLARGINE 100 UNIT/ML INSULN.PEN 30 UNIT SC (21:36)
[2024-11-28] VITALS (10 sets, daily range): BP systolic 103–147; BP diastolic 61–89; PULSE 79–112; RESP 18–31; TEMP 36.1–36.7; O2SAT 97–100
[2024-11-28] MEDS: ALBUTEROL INHALER 200 PUFF/INH INHALER INH ×4 (01:04→19:44)
[2024-11-28] MEDS: IPRATROPIUM BROMIDE 200 PUFF/INH INHALER INH ×4 (01:04→19:44)
--- NOTE | 2024-11-28 04:17 | PC.NURSE ---
Resident noted with emesis, no residual , no s/s of respiratory distress noted at this time. Resident on Levaquin 750 mg PGT for PNA. Order received from Dr terrazas to give Zofran 4 mg PGT every 6 hours PRN
[2024-11-28] MEDS: ONDANSETRON HCL 4 MG TABLET GT (05:08)
[2024-11-28 07:53] LABS: Alanine Aminotransferase 15 U/L (10-49); Albumin, Serum 3.6 gm/dL (3.4-4.8); Albumin/Globulin Ratio 1.1 (1.2-2.2); Alkaline Phosphatase 108 U/L (46-116); Anion Gap 7 (7-16); Aspartate Amino Transferase 23 U/L (0-34); BUN/Creatinine Ratio 25 Ratio (12-20); Bilirubin,Total 1.2 mg/dL (0.3-1.2); Blood Urea Nitrogen 10 mg/dL (9-23); Calcium 8.8 mg/dL (8.3-10.6); Calcium (Corrected) 9.1 mg/dL (8.5-10.1); Carbon Dioxide 27.1 mMol/L (20.0-31.0); Chloride 103 mMol/L (98-107); Creatinine (Component) 0.4 mg/dL (0.6-1.3); Globulin 3.3 gm/dL (2.3-3.5); Glucose 151 mg/dL (74-106); Osmolality,Calculated 275 (275-295); Potassium 3.9 mMol/L (3.4-5.1); Sodium 137 mMol/L (136-145); Total Protein 6.9 gm/dL (5.7-8.2); eGFR > 60 See Note
[2024-11-28] MEDS: CARVEDILOL 3.125 MG TABLET GT (08:00)
[2024-11-28] MEDS: levoFLOXacin 500 MG TABLET 750 MG GT (08:01)
[2024-11-28] MEDS: CYANOCOBALAMIN (VITAMIN B-12) 500 MCG TABLET 1000 MCG GT (08:01)
[2024-11-28] MEDS: MULTIVITAMIN W MINERALS 1 EACH TABLET GT (08:01)
[2024-11-28] MEDS: DEXLANSOPRAZOLE 30 MG PO (08:01)
[2024-11-28] MEDS: ACETAMINOPHEN 325 MG TABLET 650 MG GT (08:01)
[2024-11-28] MEDS: DEXTROMETHORPHAN GT (12:09)
[2024-11-28] MEDS: GUAIFENESIN GT (12:09)
[2024-11-28] MEDS: PHENYLEPHRINE GT (12:09)
[2024-11-28] MEDS: ATORVASTATIN 40 MG TABLET GT (20:00)
[2024-11-28] MEDS: INSULIN GLARGINE 100 UNIT/ML INSULN.PEN 30 UNIT SC (21:34)
[2024-11-29] VITALS (10 sets, daily range): BP systolic 88–117; BP diastolic 52–67; PULSE 57–99; RESP 21–27; TEMP 36.1–36.3; O2SAT 96–100
[2024-11-29] MEDS: IPRATROPIUM BROMIDE 200 PUFF/INH INHALER INH ×4 (00:49→18:52)
[2024-11-29] MEDS: ALBUTEROL INHALER 200 PUFF/INH INHALER INH ×4 (00:50→18:52)
[2024-11-29] MEDS: CYANOCOBALAMIN (VITAMIN B-12) 500 MCG TABLET 1000 MCG GT (08:39)
[2024-11-29] MEDS: DEXLANSOPRAZOLE 30 MG PO (08:39)
[2024-11-29] MEDS: MULTIVITAMIN W MINERALS 1 EACH TABLET GT (08:41)
--- NOTE | 2024-11-29 20:53 | PD.SAPROG ---
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 (3) Chronic respiratory failure, unspecified whether with hypoxia or hypercapnia: Status: Chronic (4) Hyperlipidemia, unspecified: Status: Chronic (5) Tracheostomy status: Status: Chronic (6) Chronic atrial fibrillation: Status: Chronic SUBJECTIVE Fever:: none GI:: none Shortness of Breath:: none Pain:: none OBJECTIVE Most recent vital signs: Last Vital Signs Temp 97.4 F 11/29/24 17:53 Pulse 78 11/29/24 19:46 Resp 26 H 11/29/24 19:46 BP 117/67 11/29/24 17:53 Pulse Ox 96 11/29/24 19:46 O2 Del Method Mechanical Ventilation 11/28/24 17:41 O2 Flow Rate 8 11/26/24 12:09 FiO2 40 11/29/24 19:46 Neurological:: PVS Speech:: none Answers questions:: no Respiratory:: lungs clear Cardiovascular: irregular Abdomen: soft and nontender Extremities:: deformities (Spastic contractures of extremities) Decubitus:: none Tracheostomy:: to blow by Feeding per:: G tube Complaints:: none ASSESSMENT & PLAN Assessment: Pt remains essentially PVS for years. Prognosis for independent living is poor. No pain/ discomfort. Tolerates feeding. Pt started on Ventilator support because of acute drop in O2 saturatios and breathing pattern VSS. Ventilator not weanable. Weaning trials not well tolerated . Plan: Current treatment reviewed and continued. Ventilator settings were revised recently to adjust to demand.
[2024-11-29] MEDS: ATORVASTATIN 40 MG TABLET GT (20:59)
[2024-11-29] MEDS: INSULIN GLARGINE 100 UNIT/ML INSULN.PEN 30 UNIT SC (21:20)
[2024-11-30] VITALS (9 sets, daily range): BP systolic 115–153; BP diastolic 73–82; PULSE 52–81; RESP 18–36; TEMP 36–36.5; O2SAT 96–100
[2024-11-30] MEDS: IPRATROPIUM BROMIDE 200 PUFF/INH INHALER INH ×4 (00:15→18:52)
[2024-11-30] MEDS: ALBUTEROL INHALER 200 PUFF/INH INHALER INH ×4 (00:16→18:52)
[2024-11-30] MEDS: CARVEDILOL 3.125 MG TABLET GT (09:23)
[2024-11-30] MEDS: DEXLANSOPRAZOLE 30 MG PO (09:24)
[2024-11-30] MEDS: levoFLOXacin 500 MG TABLET 750 MG GT (09:33)
[2024-11-30] MEDS: MULTIVITAMIN W MINERALS 1 EACH TABLET GT (09:34)
[2024-11-30] MEDS: CYANOCOBALAMIN (VITAMIN B-12) 500 MCG TABLET 1000 MCG GT (09:39)
--- NOTE | 2024-11-30 11:01 | PC.NURSE ---
Levaquin wasn't given yesterday .made aware and order to add one more day for the antibiotic to complete the dose, order noted and carried.
--- NOTE | 2024-11-30 14:33 | PC.SS ---
Room visit: Resident is laying in bed with head of the bed elevated with call light properly placed with no signs of distress. Resident is unable to make needs known, he is represented by her son. Resident will remain in current care as he has no changes in care or condition. He remains on ventilator with trach in place and GT for medication and nutrition. This SSD will continue to make daily contact with resident and will offer support as needed.
--- NOTE | 2024-11-30 16:48 | PC.NURSE ---
Resident continues on Levaquin 750mg tab daily via gtube for PNA, no adverse reactions noted, afebrile, VS stable, remains on ventilator to maintain respirations, suction prn, continue to monitor
[2024-11-30] MEDS: ATORVASTATIN 40 MG TABLET GT (20:35)
[2024-11-30] MEDS: INSULIN GLARGINE 100 UNIT/ML INSULN.PEN 30 UNIT SC (21:16)
[2024-11-30] MEDS: MAGNESIUM HYDROXIDE 30 ML ORAL SUSP ML GT (21:30)
[2024-12-01] VITALS (10 sets, daily range): BP systolic 100–133; BP diastolic 53–75; PULSE 47–98; RESP 20–30; TEMP 36.1–36.3; O2SAT 92–100
[2024-12-01] MEDS: IPRATROPIUM BROMIDE 200 PUFF/INH INHALER INH ×4 (01:42→18:31)
[2024-12-01] MEDS: ALBUTEROL INHALER 200 PUFF/INH INHALER INH ×4 (01:42→18:30)
[2024-12-01] MEDS: IPRATROPIUM/ALBUTEROL 3 ML AMPUL.NEB INH (05:28)
[2024-12-01] MEDS: CARVEDILOL 3.125 MG TABLET GT (08:12)
[2024-12-01] MEDS: CYANOCOBALAMIN (VITAMIN B-12) 500 MCG TABLET 1000 MCG GT (08:12)
[2024-12-01] MEDS: DEXLANSOPRAZOLE 30 MG PO (08:13)
[2024-12-01] MEDS: levoFLOXacin 500 MG TABLET 750 MG GT (08:14)
[2024-12-01] MEDS: MULTIVITAMIN W MINERALS 1 EACH TABLET GT (08:16)
--- NOTE | 2024-12-01 08:40 | PC.NURSE ---
Report received from [facility] this morning that resident has episodes of desaturation and requiring to be bagged to increased his oxygen. Resident currently on Levaquin [address] for [address] Simeon is here and made aware of it, seen and examined resident. No new orders made.
[2024-12-01] MEDS: ATORVASTATIN 40 MG TABLET GT (21:32)
[2024-12-01] MEDS: INSULIN GLARGINE 100 UNIT/ML INSULN.PEN 30 UNIT SC (21:38)
[2024-12-02] VITALS (8 sets, daily range): BP systolic 123–147; BP diastolic 64–87; PULSE 58–82; RESP 18–30; TEMP 35.8–36.2; O2SAT 98–100
[2024-12-02] MEDS: IPRATROPIUM BROMIDE 200 PUFF/INH INHALER INH ×4 (01:57→18:17)
[2024-12-02] MEDS: ALBUTEROL INHALER 200 PUFF/INH INHALER INH ×4 (01:57→18:17)
--- NOTE | 2024-12-02 05:05 | PC.NURSE ---
Antibiotics ongoing for pneumonia. No adverse reaction noted. Bilateral lungs sounds noted dimininshed to lower bases. Continuous pulse Ox in use with SpO2 currently 100% with FiO2 @40% via vent. x2 episode of respiratory distress noted with PRN breathing treatment administered by RT. HOB kept elevated to facilitate O2 exchange. Suctioned as needed with moderate amounts thick frothy secretions noted. Fluids tolerated well via g-tube. No s/s of pain or discomfort noted. Vital signs within normal limits.
[2024-12-02] MEDS: CYANOCOBALAMIN (VITAMIN B-12) 500 MCG TABLET 1000 MCG GT (08:52)
[2024-12-02] MEDS: levoFLOXacin 500 MG TABLET 750 MG GT (08:53)
[2024-12-02] MEDS: DEXLANSOPRAZOLE 30 MG PO (08:53)
[2024-12-02] MEDS: MULTIVITAMIN W MINERALS 1 EACH TABLET GT (08:54)
[2024-12-02] MEDS: ATORVASTATIN 40 MG TABLET GT (20:38)
[2024-12-02] MEDS: ACETAMINOPHEN 325 MG TABLET 650 MG GT (20:38)
[2024-12-02] MEDS: INSULIN GLARGINE 100 UNIT/ML INSULN.PEN 30 UNIT SC (21:30)
[2024-12-03] VITALS (7 sets, daily range): BP systolic 107–120; BP diastolic 55–64; PULSE 52–81; RESP 18–36; TEMP 36.1–36.6; O2SAT 98–100
[2024-12-03] MEDS: ALBUTEROL INHALER 200 PUFF/INH INHALER INH ×4 (00:43→19:00)
[2024-12-03] MEDS: IPRATROPIUM BROMIDE 200 PUFF/INH INHALER INH ×4 (00:43→19:01)
[2024-12-03] MEDS: CARVEDILOL 3.125 MG TABLET GT (09:00)
[2024-12-03] MEDS: CYANOCOBALAMIN (VITAMIN B-12) 500 MCG TABLET 1000 MCG GT (09:01)
[2024-12-03] MEDS: DEXLANSOPRAZOLE 30 MG PO (09:02)
[2024-12-03] MEDS: levoFLOXacin 500 MG TABLET 750 MG GT (09:02)
[2024-12-03] MEDS: MULTIVITAMIN W MINERALS 1 EACH TABLET GT (09:02)
[2024-12-03] MEDS: ATORVASTATIN 40 MG TABLET GT (20:50)
[2024-12-03] MEDS: ACETAMINOPHEN 325 MG TABLET 650 MG GT (20:55)
[2024-12-03] MEDS: INSULIN GLARGINE 100 UNIT/ML INSULN.PEN 30 UNIT SC (21:14)
[2024-12-04] VITALS (10 sets, daily range): BP systolic 94–124; BP diastolic 57–80; PULSE 56–85; RESP 20–32; TEMP 36.1–36.2; O2SAT 99–100
[2024-12-04] MEDS: IPRATROPIUM BROMIDE 200 PUFF/INH INHALER INH ×4 (00:30→18:09)
[2024-12-04] MEDS: ALBUTEROL INHALER 200 PUFF/INH INHALER INH ×4 (00:30→18:08)
[2024-12-04] MEDS: CARVEDILOL 3.125 MG TABLET GT (08:42)
[2024-12-04] MEDS: MULTIVITAMIN W MINERALS 1 EACH TABLET GT (08:44)
[2024-12-04] MEDS: DEXLANSOPRAZOLE 30 MG PO (08:44)
[2024-12-04] MEDS: CYANOCOBALAMIN (VITAMIN B-12) 500 MCG TABLET 1000 MCG GT (08:44)
[2024-12-04] MEDS: levoFLOXacin 500 MG TABLET 750 MG GT (08:44)
--- NOTE | 2024-12-04 20:57 | PD.SAPROG ---
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 (3) Chronic respiratory failure, unspecified whether with hypoxia or hypercapnia: Status: Chronic (4) Hyperlipidemia, unspecified: Status: Chronic (5) Tracheostomy status: Status: Chronic (6) Chronic atrial fibrillation: Status: Chronic SUBJECTIVE Fever:: none GI:: none Shortness of Breath:: none Pain:: none OBJECTIVE Most recent vital signs: Last Vital Signs Temp 96.9 F 12/04/24 18:00 Pulse 60 12/04/24 18:08 Resp 20 12/04/24 18:08 BP 96/59 L 12/04/24 18:00 Pulse Ox 100 12/04/24 18:08 O2 Del Method Mechanical Ventilation 12/04/24 18:00 O2 Flow Rate 8 12/03/24 17:33 FiO2 40 12/04/24 18:08 Neurological:: PVS Speech:: none Answers questions:: no Respiratory:: lungs clear Cardiovascular: irregular Abdomen: soft and nontender Extremities:: deformities (Spastic contractures of extremities) Decubitus:: none Tracheostomy:: to blow by Feeding per:: G tube Complaints:: none ASSESSMENT & PLAN Assessment: Pt remains essentially PVS for years. Prognosis for independent living is poor. No pain/ discomfort. Tolerates feeding. Pt started on Ventilator support because of acute drop in O2 saturatios and breathing pattern VSS. Ventilator not weanable. Weaning trials not well tolerated . Plan: Current treatment reviewed and continued. Ventilator settings were revised recently to adjust to demand.
[2024-12-04] MEDS: ATORVASTATIN 40 MG TABLET GT (21:33)
[2024-12-04] MEDS: INSULIN GLARGINE 100 UNIT/ML INSULN.PEN 30 UNIT SC (21:33)
[2024-12-05] VITALS (9 sets, daily range): BP systolic 94–105; BP diastolic 59–70; PULSE 56–82; RESP 19–34; TEMP 36.1–36.6; O2SAT 98–100
[2024-12-05] MEDS: IPRATROPIUM BROMIDE 200 PUFF/INH INHALER INH ×4 (01:11→19:20)
[2024-12-05] MEDS: ALBUTEROL INHALER 200 PUFF/INH INHALER INH ×5 (01:11→19:20)
[2024-12-05] MEDS: IPRATROPIUM/ALBUTEROL 3 ML AMPUL.NEB INH (02:46)
--- NOTE | 2024-12-05 02:52 | PC.NURSE ---
Antibiotics ongoing for pneumonia. No adverse reaction noted. Bilateral lungs sounds noted dimininshed to lower bases. Continuous pulse Ox in use with SpO2 currently 97-100% with FiO2 @40% via vent. x2 episode of respiratory distress noted thus far with PRN breathing treatment administered by RT. HOB kept elevated to facilitate O2 exchange. Suctioned as needed with small amounts thick frothy secretions noted. Fluids tolerated well via g-tube. Medicated x1 @ this time with PRN Tylenol for s/s of discomfort RR 37-41, HR 102. Vital signs within normal limits.
--- NOTE | 2024-12-05 04:47 | PC.NURSE ---
Entered room to provide care and noted resident coughing with his right hand pressed on inline tubing with each cough cause a pea size skin tear to the wrist area. Charge nurse notified and order received to cleanse with normal saline, pat dry, apply triple antibiotic ointment and cover with band aide. Order noted and carried out.
[2024-12-05] MEDS: MULTIVITAMIN W MINERALS 1 EACH TABLET GT (09:21)
[2024-12-05] MEDS: DEXLANSOPRAZOLE 30 MG PO (09:22)
[2024-12-05] MEDS: CYANOCOBALAMIN (VITAMIN B-12) 500 MCG TABLET 1000 MCG GT (09:22)
[2024-12-05] MEDS: CARVEDILOL 3.125 MG TABLET GT (09:23)
[2024-12-05] MEDS: levoFLOXacin 500 MG TABLET 750 MG GT (10:07)
--- NOTE | 2024-12-05 16:32 | PC.NURSE ---
Resident received last dose of levofloxacin 750mg via gtube, no adverse reaction noted, continue to monitor, bed in low position, call light in reach
[2024-12-05] MEDS: INSULIN GLARGINE 100 UNIT/ML INSULN.PEN 30 UNIT SC (21:33)
[2024-12-05] MEDS: ATORVASTATIN 40 MG TABLET GT (21:33)
--- NOTE | 2024-12-05 23:20 | PD.SAPROG ---
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 (3) Chronic respiratory failure, unspecified whether with hypoxia or hypercapnia: Status: Chronic (4) Hyperlipidemia, unspecified: Status: Chronic (5) Tracheostomy status: Status: Chronic (6) Chronic atrial fibrillation: Status: Chronic SUBJECTIVE Fever:: none GI:: none Shortness of Breath:: none Pain:: none OBJECTIVE Most recent vital signs: Last Vital Signs Temp 97.9 F 12/05/24 17:53 Pulse 56 L 12/05/24 19:20 Resp 21 H 12/05/24 19:20 BP 105/70 12/05/24 17:53 Pulse Ox 100 12/05/24 19:20 O2 Del Method Mechanical Ventilation 12/05/24 06:00 O2 Flow Rate 8 12/03/24 17:33 FiO2 40 12/05/24 19:20 Neurological:: PVS Speech:: none Answers questions:: no Respiratory:: lungs clear Cardiovascular: irregular Abdomen: soft and nontender Extremities:: deformities (Spastic contractures of extremities) Decubitus:: none Tracheostomy:: to blow by Feeding per:: G tube Complaints:: none ASSESSMENT & PLAN Assessment: Pt remains essentially PVS for years. Prognosis for independent living is poor. No pain/ discomfort. Tolerates feeding. Pt started on Ventilator support because of acute drop in O2 saturatios and breathing pattern VSS. Ventilator not weanable. Weaning trials not well tolerated . Plan: Current treatment reviewed and continued. Ventilator settings were revised recently to adjust to demand.
[2024-12-06] VITALS (11 sets, daily range): BP systolic 107–143; BP diastolic 61–84; PULSE 55–93; RESP 18–30; TEMP 36.4–37.1; O2SAT 98–100
--- NOTE | 2024-12-06 00:24 | PC.NURSE ---
S/P x1 antibiotics for PNA. No delayed adverse reaction noted. Bilateral lungs with noted rhonchi throughout lung chirinos. Resident noted with x2 episodes of vent alarming with increased respiratory rate, SpO2 @97-100% with current vent settings @SIMV 18, TV 400 and 40% FiO2. HOB elevated to facilitate O2 exchange. RT administered nebulizer treatment PRN x1 thus far. Tolerating fluids well via g-tube. Coninued pulse Ox remains in place.
[2024-12-06] MEDS: ALBUTEROL INHALER 200 PUFF/INH INHALER INH (00:46)
[2024-12-06] MEDS: IPRATROPIUM BROMIDE 200 PUFF/INH INHALER INH (00:46)
[2024-12-06] MEDS: IPRATROPIUM/ALBUTEROL 3 ML AMPUL.NEB INH ×4 (01:00→18:30)
--- NOTE | 2024-12-06 06:32 | PC.NURSE ---
made aware of resident continuos episodes of increase respirations rates in the 30's and 40's, resident finished ABT recently for PNA, resident also has episodes of desaturation in the 80's, new order to give extra 300mL of water via Gtube for two shifts, resident in room resting, call light within reach, HOB elevated, continuos pulse ox.
[2024-12-06] MEDS: CYANOCOBALAMIN (VITAMIN B-12) 500 MCG TABLET 1000 MCG GT (09:22)
[2024-12-06] MEDS: CARVEDILOL 3.125 MG TABLET GT (09:22)
[2024-12-06] MEDS: DEXLANSOPRAZOLE 30 MG PO (09:23)
[2024-12-06] MEDS: MULTIVITAMIN W MINERALS 1 EACH TABLET GT (09:23)
[2024-12-06] MEDS: GUAIFENESIN GT (09:24)
[2024-12-06] MEDS: DEXTROMETHORPHAN GT (09:24)
[2024-12-06] MEDS: PHENYLEPHRINE GT (09:24)
--- NOTE | 2024-12-06 16:18 | PC.SS ---
This SSD followed up with resident after his room change, resident appears well in room and compatible with new roommate. No questions or concerns from family.
[2024-12-06] MEDS: ATORVASTATIN 40 MG TABLET GT (20:47)
[2024-12-06] MEDS: ACETAMINOPHEN 325 MG TABLET 650 MG GT (20:48)
[2024-12-06] MEDS: INSULIN GLARGINE 100 UNIT/ML INSULN.PEN 30 UNIT SC (21:29)
[2024-12-07] VITALS (10 sets, daily range): BP systolic 90–149; BP diastolic 52–83; PULSE 60–112; RESP 19–38; TEMP 36.6–37.1; O2SAT 96–100
[2024-12-07] MEDS: IPRATROPIUM/ALBUTEROL 3 ML AMPUL.NEB INH ×4 (01:12→18:12)
[2024-12-07] MEDS: DEXLANSOPRAZOLE 30 MG PO (09:11)
[2024-12-07] MEDS: CYANOCOBALAMIN (VITAMIN B-12) 500 MCG TABLET 1000 MCG GT (09:11)
[2024-12-07] MEDS: MULTIVITAMIN W MINERALS 1 EACH TABLET GT (09:11)
[2024-12-07] MEDS: ACETAMINOPHEN 325 MG TABLET 650 MG GT ×2 (11:20→20:44)
[2024-12-07] MEDS: DEXTROMETHORPHAN GT (13:33)
[2024-12-07] MEDS: GUAIFENESIN GT (13:33)
[2024-12-07] MEDS: PHENYLEPHRINE GT (13:33)
[2024-12-07] MEDS: ATORVASTATIN 40 MG TABLET GT (20:43)
[2024-12-07] MEDS: INSULIN GLARGINE 100 UNIT/ML INSULN.PEN 30 UNIT SC (21:04)
--- NOTE | 2024-12-07 21:04 | PC.RT ---
at 20:30 per warper creeler pt RR increased immediately went to assess pt, RR30s, labored, hr 120s, increased fio2 to 100% spo2 improved to 98%,circuit intact no leaks noted, assess cuff pressure 26 cm h2o tidal volumes 250s-360s spo2 60s, suction copious yellow thick sputum, auscultated crackles ronchi, titrated back to 40% post 3 min, spo2 maintaining at 98%, hr 122, RR36, RN damari made aware as well as Lai pt nurse.
[2024-12-07] MEDS: ALBUTEROL INHALER 200 PUFF/INH INHALER INH (22:27)
[2024-12-08] VITALS (7 sets, daily range): BP systolic 101–130; BP diastolic 59–79; PULSE 67–113; RESP 18–33; TEMP 36.3–36.8; O2SAT 99–100
[2024-12-08] MEDS: IPRATROPIUM/ALBUTEROL 3 ML AMPUL.NEB INH (00:10)
--- NOTE | 2024-12-08 06:15 | PC.NURSE ---
Resident has been having episodes of desaturation throughout the night, he is currently on a continuous pulse ox. During rounds and turning O2 saturation decreases to low 80s. RT was notified and breathing treatments administered, resident repositioned, and suctioned as needed, afebrile.
[2024-12-08] MEDS: IPRATROPIUM BROMIDE 200 PUFF/INH INHALER INH (06:50)
[2024-12-08] MEDS: ALBUTEROL INHALER 200 PUFF/INH INHALER INH (06:50)
--- NOTE | 2024-12-08 07:19 | PC.NURSE ---
Morning report given to racebook writer by Falguni gan regarding resident's condition through out the night. Nurse reports resident having difficulty breathing, despite breathing treatments, residents continues to breath 38-40 respirations with an increased HR 170/100of 120s . during walk through noted resident noted resident work of breathing at 38-40. with increased intercostal effort. Called MD. Orders to send resident to ED for further evaluation. VS taken at this time [phone] NE, 35RR, 170/100. 97.4 T. Saturation at 98%. Called ED Spoke to Marielena charge nurse . stated they are at full capacity, She will call me when bed is available. Will continue to monitor resident.
[2024-12-08] MEDS: MULTIVITAMIN W MINERALS 1 EACH TABLET GT (08:04)
[2024-12-08] MEDS: CYANOCOBALAMIN (VITAMIN B-12) 500 MCG TABLET 1000 MCG GT (08:06)
[2024-12-08] MEDS: CARVEDILOL 3.125 MG TABLET GT (08:06)
[2024-12-08] MEDS: DEXLANSOPRAZOLE 30 MG PO (08:06)
--- NOTE | 2024-12-08 10:29 | XR_ITS ---
Examination: AP chest single view Technique one AP portable upright chest single view Exam date and time: December 08, 2024 1120 hrs. Comparison November 27, 2024 Indications: Respiratory distress today. Findings: Mild CHF Mild to moderate enlargement cardiac contour Prominent vascular congestion with perihilar edema Tracheostomy tube tip satisfactory position Impression: Mild CHF
--- NOTE | 2024-12-08 10:31 | PC.NURSE ---
Called Rapid response team to further assess resident after waiting for 3 hrs. for a bed and no response from ED. Resident presenting severe work of breathing using all accessory muscles, appeared flushed, respiratory rate 40s. Team arrived with ER Doctor, respiratory team. Resident will be taken to ED for further evaluation. Will notify family. Order to perform chest Xray.
--- NOTE | 2024-12-08 10:46 | PC.NURSE ---
Resident sent to ER via bed. for further evaluation as per doctor order and Rapid response yoana evaluation.
--- NOTE | 2024-12-08 16:45 | PC.NURSE ---
pt was transfer to ED 1051
== END | disposition admitted as inpatient to this hospital (09) | DRG 133 ==
PROVIDERS: Admitting Provider Specialist; Visit Provider Specialist
DX: J96.10 Chronic respiratory failure, unspecified whether with hypoxia or hypercapnia (principal); R40.3 Persistent vegetative state; E78.5 Hyperlipidemia, unspecified; M24.50 Contracture, unspecified joint; I48.91 Unspecified atrial fibrillation; I69.398 Other sequelae of cerebral infarction; E11.9 Type 2 diabetes mellitus without complications; Z93.0 Tracheostomy status; Z93.1 Gastrostomy status; K21.9 Gastro-esophageal reflux disease without esophagitis; I10 Essential (primary) hypertension; G82.50 Quadriplegia, unspecified
CPT/HCPCS: 36415; 36600; 71045; 80053; 80061; 81001; 82803; 82947; 83036; 84145; 85025; 87040; 87077; 87186; 87205; 87502; 87811; 94002; 94003; 94004; 94640; 94762

== ENCOUNTER 2024-12-16 00:10 | Inpatient (IN) | payer MEDICAID, SELFPAY ==
[2024-12-16] VITALS (17 sets, daily range): BP systolic 138–159; BP diastolic 75–92; PULSE 65–125; RESP 15–32; TEMP 36.1–36.7; O2SAT 98–100; BMI 23.7
--- NOTE | 2024-12-16 01:22 | PD.RESHP ---
Documentation for date of: 12/16/24 HPI History of Present Illness Chief complaint: Acute respiratory failure History of present illness: Mr. Kirill Hair is a 84-year-old male with past medical history significant for vegetative state status post CVA in 2019, status post tracheostomy, PEG tube, A-fib not on anticoagulation, hypertension, hyperlipidemia, diabetes was recently discharged from [facility] for worsening shortness of breath and concern for tracheal mass on bronchoscopy to [facility] for further surgical evaluation and possible biopsy on 12/14/24. While at [facility], patient had a TTE, however unable to make conclusions based on the image quality. Trach aspirate grew few gram-negative rods, however no new infection concern, as a result no antibiotics were initiated there. Bedside bronchoscopy on 12/14 showed nonfriable slightly yellow raised area most likely suggestive of granulation tissue and mass was seen to be nonobstructive to trach tube. Trach was then exchanged to a smaller, 6?0 cuffed Shiley XLT from the initial 7?0 cuffed [place]. 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 Bedside bronchoscopy through endotracheal tube showed tip well above carlo, no coughing was induced, and trachea was not collapsing as completely as other times.Patient did not require any sedation or anxiety medications, was set to a vent setting of AC/VC, respiration rate of 10, PEEP set at 8 and FiO2 of 50%. Recent ABG showed metabolic alkalosis, with the recent pH is 7.54. New PEG tube was replaced as well. Patient also continues to have an indwelling Gibson, making good urine output. Review of Systems Review of Systems ROS Unobtainable: unobtainable due to mental status and unobtainable due to medical condition Past Medical History Past Medical History Comments PMH COMMENT: Medical Hx: as mentioned above Surgeries: Tracheostomy and Gastrostomy Social Hx: No illicit drug use, unknown smoking history, subacute resident s/p CVA 2019 Allergies: NKDA Family history: Noncontributory Exam Vital Signs Temp Resp BP Pulse Ox O2 Del Method 97.3 F 28 H 142/84 H 100 Trach Collar 12/16/24 00:10 12/16/24 00:10 12/16/24 00:10 12/16/24 00:10 12/16/24 00:10 Narrative Exam General: Nonverbal at baseline, ill-appearing HEENT: NCAT, PERRLA, left central line noted with intact dressing Cardiovascular: Irregularly irregular, no murmurs or rubs heard, no JVD Respiratory: Coarse breath sounds, no crackles or wheezing noted, trach in place Abdomen: Soft, nontender, not distended, normal bowel sounds. New PEG tube in place with gauze in surrounding area no discharge. Skin: Sacral ulcer covered by clean wound dressing Musculoskeletal: No pitting edema Neuro: Nonverbal at baseline, GCS 9 Quality Measures Quality Measures VTE prophylaxis Advance care planning discussed with:: other Medications Home Medications and Allergies Home Medications ?Medication ?Instructions ?Recorded ?Confirmed ?Type acetaminophen 325 mg capsule 650 mg feeding tube Q6HR PRN Pain 08/11/20 12/12/24 History (Tylenol) atorvastatin 40 mg tablet (Lipitor) 40 mg feeding tube QDAY 08/11/20 12/12/24 History bisacodyl 10 mg rectal suppository 10 mg IL Q72H PRN Constipation 08/11/20 12/12/24 History (Dulcolax (bisacodyl)) carvedilol 3.125 mg tablet (Coreg) 3.125 mg feeding tube BID 08/11/20 12/12/24 History cyanocobalamin (vitamin B-12) 1,000 mcg feeding tube QDAY 08/11/20 12/12/24 History 1,000 mcg tablet (Vitamin B-12) dexlansoprazole 30 mg 30 mg feeding tube QDAY 08/11/20 12/12/24 History capsule,biphase delayed release (Dexilant) insulin glargine 100 unit/mL 30 unit subcut HS 08/11/20 12/12/24 History subcutaneous solution (Lantus U-100 Insulin) polyethylene glycol 3350 17 gram 17 g feeding tube QDAY PRN 08/11/20 08/12/20 History oral powder packet (Miralax) Constipation magnesium hydroxide 400 mg/5 mL 30 ml feeding tube Q48H PRN 08/12/20 12/12/24 History oral suspension (Milk of Magnesia) Constipation multivitamin with minerals 1 tab PO QDAY 08/12/20 12/12/24 History sodium phosphates 19 gram-7 118 ml IL Q72H PRN constipation 08/12/20 08/12/20 History gram/118 mL enema (Fleet Enema) Allergies Allergy/AdvReac Type Severity Reaction Status Date / Time No Known Allergies Allergy Verified 01/02/19 14:22 Visit Medications Acetaminophen (Acetaminophen 325 Mg Tablet) 650 mg PO Q6HR PRN PRN Reason: Fever >100.4 or Pain Stop: 01/15/25 00:47 Albuterol/Ipratropium (Albuterol/Ipratropium (Duoneb) Rt Emma 3 Ml Nebu) 3 ml INH Q4HRRT KURT Stop: 01/15/25 02:59 Atorvastatin Calcium (Atorvastatin Calcium 20 Mg Tablet) 40 mg GT HS KURT Stop: 01/15/25 20:59 Carvedilol (Carvedilol 3.125 Mg Tablet) 3.125 mg GT BIDWM KURT Stop: 01/15/25 07:59 Dextrose (Dextrose 50%-Water Inj 50 Ml Syringe) 25 ml IV Q15MIN PRN PRN Reason: BG 50-70 responsive npo pt Stop: 01/15/25 00:47 Dextrose (Dextrose 50%-Water Inj 50 Ml Syringe) 50 ml IV Q15MIN PRN PRN Reason: BG <50 OR BG <70 & pt unresponsive Stop: 01/15/25 00:47 Glucagon (Glucagon Inj 1 Mg Vial) 1 mg IM Q15MIN PRN PRN Reason: BG <70, and no IV access Heparin Sodium (Porcine) (Heparin Sod Inj 5000 Unit/Ml Vial) 5,000 unit SC Q8HR KURT Stop: 12/30/24 05:59 Insulin Human Lispro (Insulin Lispro (Admelog) 1 Unit/0.01 Ml Unit) 0 unit SC Q6HR KURT; Protocol Stop: 01/15/25 05:59 Metoprolol Succinate (Metoprolol Succinate Xl 25 Mg Tabcr) 50 mg GT QDAY KURT Stop: 01/15/25 08:59 Multivitamins/Iron (Multivitamins/Fe Drops 50 Ml Btl (Poly-Vi-Emma W/Fe)) 15 ml GT QDAY KURT Stop: 01/15/25 08:59 Pantoprazole Sodium (Pantoprazole Inj 40 Mg Vial) 40 mg IV QDAY KURT Stop: 01/15/25 08:59 Polyethylene Glycol (Polyethylene Glycol 17 Gm Packet) 17 gm PO QDAY PRN PRN Reason: constipation Stop: 01/15/25 08:59 Sennosides (Senna Tablet) 1 tab GT QDAY PRN; Protocol PRN Reason: CONSTIPATION Stop: 01/15/25 00:54 Thiamine HCl (Thiamine 100 Mg Tablet) 100 mg GT QDAY KURT Stop: 12/21/24 08:59 Assessment & Plan Plan Mr. Kirill Hair is a 84-year-old male with past medical history significant for vegetative state status post CVA in 2019, status post tracheostomy, PEG tube, A-fib not on anticoagulation, hypertension, hyperlipidemia, diabetes was recently discharged from [facility] for worsening shortness of breath and concern for tracheal mass on bronchoscopy to [facility] for further surgical evaluation and possible biopsy on 12/14/24. While at [facility], patient had a NGA that was inconclusive for any findings due to image quality, tracheal mass that was initially a concern was noted to be a raised nonfriable yellow area suggestive of granulation tissue. Trach was exchanged to a smaller cuff and patient deemed safe for transfer back to [facility]. #Acute on chronic hypoxic respiratory failure?improving #Rule out tracheal mass #Status post trach collar dependence #History of ESBL pneumonia status post antibiotics Status post transfer to [facility] bedside [facility] on 12/14 showed 1 friable slightly yellow raised area suggestive of granulation tissue. Mass was seen to be nonobstructive to trach tube. 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 On 12/14, trach was exchanged with a smaller cough at 6?0 Shiley. IV meropenem and vancomycin was started for ESBL pneumonia given prior cultures, however due to low suspicion of pneumonia, antibiotics were stopped. MRSA nares negative. COVID-19 and trach aspirate from 12/14 showed few gram-negative rods - If patient appears to have signs and symptoms of airway obstruction, can reposition - DuoNebs every 4 hours - Current vent settings: AC/VC, respiration rate, 10, PEEP/CPAP set, 8, FiO2 50%, with SPO2 greater than 92% - Tylenol for pain/fever #Metabolic alkalosis Latest trends of ABG showed pH increasing, with latest at 7.54. May be high in the setting of hypovolemia from tube feed being held - At [facility], patient was started on Nufen, however, not available at our facility - Will resume patient's tube feeds after input from dietary to restart equivalent tube feed such as Glucerna - Consider repeating ABG prior to discharge after tube feeds are at goal rate #History of atrial fibrillation #History of CVA 2019 status post trach/PEG dependence Patient is currently not on any anticoagulation due to patient's current CODE STATUS of DNR and his history of hemorrhagic stroke NGA images acquired were of poor quality, however heart rate throughout study was 81. LV function was hyperdynamic, otherwise no other information could be obtained due to poor image quality. - Continue to monitor on telemetry - Resume patient's home Coreg 3.125 mg twice daily and metoprolol succinate 50 mg daily - Started patient's home atorvastatin 40 mg at bedtime #PEG tube dependence Per bedside nurse upon report, states that patient's PEG tube was recently changed as well along with his new Gibson and trach. However, from transfer documents from [facility], unable to note when PEG tube was placed if it was placed -Patient will need to start tube feeds ENEIDA status post dietary consult - Due to concern of refeeding syndrome, patient will be on thiamine 100 mg daily for total of 5 days via PEG or IV #Type 2 diabetes mellitus Last A1c 4.9 on February 2024 - Every 6 hours bedside glucose checks along with sliding scale insulin - Patient takes long-acting Lantus, will start after patient starts his tube feeds later today #Anemia Patient's baseline hemoglobin is around 10 and last hemoglobin 9.6. - CBC every morning - Continue to monitor - Consider outpatient iron studies #Chronic indwelling Gibson in the setting of neurogenic bladder Last Gibson change was on 12/13/24 per patient's bedside nurse -Continue to monitor urine output via Gibson - No signs of infection noted in Gibson bag #Constipation - Senna and MiraLAX as needed #CVA 2019 status post trach/PEG dependence #Septic shock-resovled #NSTEMI type II likely supply demand ischemia-resolved #Nonverbal and bedbound #Lactic acidosis, resolved #Leukocytosis Health maintenance: Diet: PEG feeds, however will hold for now and wait for dietary consult DVT/PPx: Heparin subcu GI ppx: Protonix IV Lines: PEG tube, Gibson Code Status: DNR Dispo: Once patient is more stable, and able to wean off vent, patient can possibly go back to subacute facility. Patient's plan and care discussed with my attending, Dr. Demar Rodriguez MD PGY-2 Attending Provider Attestation/Addendum I have examined the patient, reviewed labs and imaging findings, discussed the case with the resident(s), and reviewed entered orders. I agree with the plan of care as outlined in this note. Dr. Demar MD
[2024-12-16] MEDS: ALBUTEROL/IPRATROPIUM (Duoneb) RT SOL 3 ML NEBU INH ×6 (03:39→22:57)
[2024-12-16] MEDS: HEPARIN SOD INJ 5000 UNIT/ML VIAL SC ×3 (05:41→21:13)
[2024-12-16 06:25] LABS: Basophils % (Auto) 0 % (0-2.5); Eosinophils # (Auto) 0.2 Thou/mm3 (0.0-0.5); Eosinophils % (Auto) 5 % (0-10); Hematocrit 30.7 % (41.0-53.0); Hemoglobin 9.7 g/dL (13.5-16.0); Immature Granulocytes % (Auto) 1 % (0-0); Immature Granulocytes Auto 0.04 Thou/mm3 (0.00-0.00); Lymphocytes # (Auto) 0.6 Thou/mm3 (1.0-4.8); Lymphocytes % (Auto) 17 % (10-50); Mean Corpuscular HGB Conc 31.6 g/dl (31.0-37.0); Mean Corpuscular Hemoglobin 29.6 pg (25.0-35.0); Mean Corpuscular Volume 94 fL (80-100); Monocytes # (Auto) 0.4 Thou/mm3 (0.0-0.8); Monocytes % (Auto) 9 % (0-12); Neutrophils # (Auto) 2.6 Thou/mm3 (1.8-7.7); Neutrophils % (Auto) 68 % (37-80); Nucleated Red Blood Cell % 0 /100 WBC (0); Platelet Count 146 Thou/mm3 (140-440); Red Blood Count 3.28 Miln/mm3 (4.50-5.90); White Blood Count 3.8 Thou/mm3 (3.8-10.6)
[2024-12-16 06:48] LABS: Alanine Aminotransferase 43 U/L (10-49); Albumin, Serum 3.2 gm/dL (3.4-4.8); Albumin/Globulin Ratio 1.1 (1.2-2.2); Alkaline Phosphatase 89 U/L (46-116); Anion Gap 7 (7-16); Aspartate Amino Transferase 39 U/L (0-34); BUN/Creatinine Ratio 30 Ratio (12-20); Bilirubin,Total 1.2 mg/dL (0.3-1.2); Blood Urea Nitrogen 12 mg/dL (9-23); Calcium 8.6 mg/dL (8.3-10.6); Calcium (Corrected) 9.2 mg/dL (8.5-10.1); Carbon Dioxide 27.9 mMol/L (20.0-31.0); Chloride 108 mMol/L (98-107); Creatinine (Component) 0.4 mg/dL (0.6-1.3); Globulin 2.8 gm/dL (2.3-3.5); Glucose 130 mg/dL (74-106); Osmolality,Calculated 286 (275-295); Potassium 3.6 mMol/L (3.4-5.1); Sodium 143 mMol/L (136-145); eGFR > 60 See Note
--- NOTE | 2024-12-16 08:13 | XR_ITS ---
Examination: Abdomen AP single view Technique: AP portable supine abdomen, single view Exam date and time: December 16, 2024 0835 hrs. Indications: Gastrostomy tube placement Findings: Gastrostomy tube upper left abdomen Ileus pattern No free air Impression: Recommend injecting Gastrografin through the gastrostomy tube to confirm proper placement
--- NOTE | 2024-12-16 09:31 | XR_ITS ---
Examination: Abdomen AP single view Technique: AP portable supine abdomen, single view Exam date and time: December 16, 2024 0953 hrs. Indications: Position feeding tube unknown Findings: Feeding tube in the duodenum with contrast in small bowel Impression: Feeding tube is in the duodenum
[2024-12-16] MEDS: METOPROLOL SUCCINATE XL 25 MG TABCR 50 MG GT (12:10)
[2024-12-16] MEDS: MULTIVITAMIN 15 ML UDC GT (12:12)
[2024-12-16] MEDS: THIAMINE 100 MG TABLET GT (12:12)
[2024-12-16] MEDS: PANTOPRAZOLE INJ 40 MG VIAL IV (12:12)
--- NOTE | 2024-12-16 12:43 | ESPR_ITS ---
Documentation for date of: 12/16/24 Subjective Subjective Interval history: Patient examined at bedside. PEG tube feedings still on hold as nursing was unable to suction any gastric contents out of G-tube. X-ray abdomen with Gastrografin confirmed that PEG tube is now migrated in duodenum. GI consulted for management. Per nursing however, still able to suction gastric contents after some maneuvering. So will resume tube feeds. Blood sugars stable, vitals unremarkable, telemetry reviewed patient is in A-fib with rates 70?80. Saturating 100% on 30% FiO2. Patient has completed course of antibiotics for ESBL pneumonia. Continue repositioning as needed to prevent hypoxemia. Dietary team consulted for restarting tube feeds, monitoring electrolytes and starting thiamine. Anticipate discharge back to sub acute after holiday weekend if patient remains stable. Exam Vital Signs Temp Pulse Resp BP Pulse Ox O2 Del Method FiO2 97.1 F 84 20 154/75 H 100 Mechanical Ventilation 30 12/16/24 08:00 12/16/24 12:10 12/16/24 10:26 12/16/24 12:10 12/16/24 10:26 12/16/24 08:00 12/16/24 08:00 Narrative Exam General: Nonverbal at baseline, ill-appearing HEENT: NCAT, PERRLA, left central line noted with intact dressing Cardiovascular: Irregularly irregular, no murmurs or rubs heard, no JVD Respiratory: Coarse breath sounds, no crackles or wheezing noted, trach in place Abdomen: Soft, nontender, not distended, normal bowel sounds. New PEG tube in place with gauze in surrounding area no discharge. Skin: Sacral ulcer covered by clean wound dressing Musculoskeletal: No pitting edema Neuro: Nonverbal at baseline, GCS 9 Objective Labs 12/16/24 05:57 12/16/24 05:57 Labs: Laboratory Results - last 24 hr 12/16/24 05:57 WBC 3.8 RBC 3.28 L Hgb 9.7 L Hct 30.7 L MCV 94 MCH 29.6 MCHC 31.6 RDW Std Deviation 62.0 H Plt Count 146 D Neut % (Auto) 68 Lymph % (Auto) 17 [place] % (Auto) 9 Eos % (Auto) 5 Baso % (Auto) 0 Neut # (Auto) 2.6 Lymph # (Auto) 0.6 L [place] # (Auto) 0.4 Eos # (Auto) 0.2 Baso # (Auto) 0.0 Immature Gran # (Auto) 0.04 H Absolute Nucleated RBC 0.00 Immature Gran % 1 H Nucleated RBC % 0 Sodium 143 Potassium 3.6 Chloride 108 H Carbon Dioxide 27.9 Anion Gap 7 BUN 12 Creatinine 0.4 L Estim Creat Clear Calc 133.0 eGFR > 60 BUN/Creatinine Ratio 30 H Glucose 130 H Calculated Osmolality 286 Calcium 8.6 Corrected Calcium 9.2 Total Bilirubin 1.2 AST 39 H ALT 43 Alkaline Phosphatase 89 Total Protein 6.0 Albumin 3.2 L Globulin 2.8 Albumin/Globulin Ratio 1.1 L Quality Measures Quality Measures VTE prophylaxis Advance care planning discussed with:: child Assessment & Plan Assessment Current Active Medications: Generic Name Dose Route Start Last Admin Trade Name Freq PRN Reason Stop Dose Admin Acetaminophen 650 mg 12/16/24 00:48 Acetaminophen 325 Mg Tablet PO 01/15/25 00:47 Q6HR PRN Fever >100.4 or Pain Albuterol/Ipratropium 3 ml 12/16/24 03:00 12/16/24 10:26 Albuterol/Ipratropium (Duoneb) Rt Emma 3 Ml Nebu INH 01/15/25 02:59 3 ml Q4HRRT KURT Administration Atorvastatin Calcium 40 mg 12/16/24 21:00 Atorvastatin Calcium 20 Mg Tablet GT 01/15/25 20:59 HS KURT Carvedilol 3.125 mg 12/16/24 08:00 12/16/24 08:00 Carvedilol 3.125 Mg Tablet GT 01/15/25 07:59 Not Given BIDWM KURT Dextrose 25 ml 12/16/24 00:48 Dextrose 50%-Water Inj 50 Ml Syringe IV 01/15/25 00:47 Q15MIN PRN BG 50-70 responsive npo pt Dextrose 50 ml 12/16/24 00:48 Dextrose 50%-Water Inj 50 Ml Syringe IV 01/15/25 00:47 Q15MIN PRN BG <50 OR BG <70 & pt unresponsive Glucagon 1 mg 12/16/24 00:48 Glucagon Inj 1 Mg Vial IM Q15MIN PRN BG <70, and no IV access Heparin Sodium (Porcine) 5,000 unit 12/16/24 06:00 12/16/24 05:41 Heparin Sod Inj 5000 Unit/Ml Vial SC 12/30/24 05:59 5,000 unit Q8HR KURT Administration Insulin Human Lispro 0 unit 12/16/24 06:00 12/16/24 05:41 Insulin Lispro (Admelog) 1 Unit/0.01 Ml Unit SC 01/15/25 05:59 Not Given Q6HR KURT Protocol Metoprolol Succinate 50 mg 12/16/24 09:00 12/16/24 12:10 Metoprolol Succinate Xl 25 Mg Tabcr GT 01/15/25 08:59 50 mg QDAY KURT Administration Multivitamins/Minerals 15 ml 12/16/24 09:00 12/16/24 12:12 Multivitamin 15 Ml Udc GT 01/15/25 08:59 15 ml QDAY KURT Administration Pantoprazole Sodium 40 mg 12/16/24 09:00 12/16/24 12:12 Pantoprazole Inj 40 Mg Vial IV 01/15/25 08:59 40 mg QDAY KURT Administration Polyethylene Glycol 17 gm 12/16/24 01:14 Polyethylene Glycol 17 Gm Packet PO 01/15/25 08:59 QDAY PRN constipation Protocol Sennosides 1 tab 12/16/24 00:55 Senna Tablet GT 01/15/25 00:54 QDAY PRN CONSTIPATION Protocol Thiamine HCl 100 mg 12/16/24 09:00 12/16/24 12:12 Thiamine 100 Mg Tablet GT 12/21/24 08:59 100 mg QDAY KURT Administration Plan Kirill Hair is a 84-year-old male with past medical history significant for vegetative state status post CVA in 2019, status post tracheostomy, PEG tube, A- fib not on anticoagulation, hypertension, hyperlipidemia, diabetes was recently discharged from [facility] for worsening shortness of breath and concern for tracheal mass on bronchoscopy to [facility] for further surgical evaluation and possible biopsy on 12/14/24. While at [facility], patient had a NGA that was inconclusive for any findings due to image quality, tracheal mass that was initially a concern was noted to be a raised nonfriable yellow area suggestive of granulation tissue. Trach was exchanged to a smaller cuff and patient deemed safe for transfer back to [facility]. #Acute on chronic hypoxic respiratory failure?improving #Rule out tracheal mass #Status post trach collar dependence #History of ESBL pneumonia status post antibiotics Status post transfer to [facility] bedside [facility] on 12/14 showed 1 friable slightly yellow raised area suggestive of granulation tissue. Mass was seen to be nonobstructive to trach tube. 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 On 12/14, trach was exchanged with a smaller cough at 6?0 Shiley. IV meropenem and vancomycin was started for ESBL pneumonia given prior cultures, however due to low suspicion of pneumonia, antibiotics were stopped. MRSA nares negative. 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 LV function was hyperdynamic, otherwise no other information could be obtained due to poor image quality. - Continue to monitor on telemetry - Resume patient's home Coreg 3.125 mg twice daily and metoprolol succinate 50 mg daily - Started patient's home atorvastatin 40 mg at bedtime #PEG tube dependence Per bedside nurse upon report, states that patient's PEG tube was recently changed as well along with his new Gibson and trach. However, from transfer documents from [facility], unable to note when PEG tube was placed if it was placed -Patient will need to start tube feeds ENEIDA status post dietary consult - Due to concern of refeeding syndrome, patient will be on thiamine 100 mg daily for total of 5 days via PEG or IV -monitor electrolytes -resumed feeds -GI consult pending for management of migrated G tube into duodenum #Type 2 diabetes mellitus Last A1c 4.9 on February 2024 - Every 6 hours bedside glucose checks along with sliding scale insulin - Patient takes long-acting Lantus, will start after patient starts his tube feeds later today #Anemia Patient's baseline hemoglobin is around 10 and last hemoglobin 9.6. - CBC every morning - Continue to monitor - Consider outpatient iron studies #Chronic indwelling Gibson in the setting of neurogenic bladder Last Gibson change was on 12/13/24 per patient's bedside nurse -Continue to monitor urine output via Gibson - No signs of infection noted in Gibson bag #Constipation - Senna and MiraLAX as needed #CVA 2019 status post trach/PEG dependence #Septic shock-resovled #NSTEMI type II likely supply demand ischemia-resolved #Nonverbal and bedbound #Lactic acidosis, resolved #Leukocytosis #Metabolic alkalosis-resolved Health maintenance: Diet: PEG feeds, GI consult for tube migration DVT/PPx: Heparin subcu GI ppx: Protonix IV Lines: PEG tube, Gibson Code Status: DNR Dispo: dc pending GI eval The patient's management plan was discussed with my attending physician Dr. Mcadams. Anne Cano, PGY-1 Attending Provider Attestation/Addendum I have discussed and was present for the essential components of the history, physical examination, diagnosis, and treatment plan with the resident. I agree with the patient's care as documented by the resident and amended herein by me. Rob Mcadams, DO. Patient seen and evaluated this AM. No acute events overnight, there is some worries that the patient's G-tube was kinking, we did get a small bowel series which demonstrated the G-tube was in the duodenum which may be okay, GI is also been consulted however will not see until Wednesday when we have GI available again. Will continue to monitor closely, patient likely ready to go back to subacute on Wednesday pending resolution of G-tube issues. Although this document has been carefully reviewed, there may still be some phonetic and other typographical errors. These errors are purely grammatical due to imperfections in the software program and should not be construed in any way to compromise the substance of the patient's medical care during this visit.
[2024-12-16] MEDS: carVEDILOL 3.125 MG TABLET GT (17:09)
[2024-12-16] MEDS: ATORVASTATIN CALCIUM 20 MG TABLET 40 MG GT (21:13)
[2024-12-17] VITALS (20 sets, daily range): BP systolic 96–133; BP diastolic 55–77; PULSE 66–109; RESP 18–28; TEMP 36–36.7; O2SAT 98–100; BMI 25.0
[2024-12-17] MEDS: ALBUTEROL/IPRATROPIUM (Duoneb) RT SOL 3 ML NEBU INH ×6 (03:10→22:12)
--- NOTE | 2024-12-17 03:35 | PC.NURSE ---
Pt came in from room 271, pt is non verbal as his baseline. Pt is on mech Vent sating at 99% at this time, not in respiratory distress noted. Pt has a PEG tube in his left upper abdomen on feeding Glucerna 1.2 at 30ml/hr, no residual noted. Will continue to monitor.
[2024-12-17] MEDS: HEPARIN SOD INJ 5000 UNIT/ML VIAL SC ×3 (05:23→21:26)
[2024-12-17 05:36] LABS: Basophils % (Auto) 0 % (0-2.5); Eosinophils # (Auto) 0.2 Thou/mm3 (0.0-0.5); Eosinophils % (Auto) 4 % (0-10); Hematocrit 30.3 % (41.0-53.0); Hemoglobin 9.8 g/dL (13.5-16.0); Immature Granulocytes % (Auto) 1 % (0-0); Immature Granulocytes Auto 0.04 Thou/mm3 (0.00-0.00); Lymphocytes # (Auto) 0.6 Thou/mm3 (1.0-4.8); Lymphocytes % (Auto) 11 % (10-50); Mean Corpuscular HGB Conc 32.3 g/dl (31.0-37.0); Mean Corpuscular Hemoglobin 30.2 pg (25.0-35.0); Mean Corpuscular Volume 93 fL (80-100); Monocytes # (Auto) 0.4 Thou/mm3 (0.0-0.8); Monocytes % (Auto) 8 % (0-12); Neutrophils # (Auto) 4.3 Thou/mm3 (1.8-7.7); Neutrophils % (Auto) 77 % (37-80); Nucleated Red Blood Cell % 0 /100 WBC (0); Platelet Count 160 Thou/mm3 (140-440); RDW Standard Deviation 60.4 fL (35.1-43.9); Red Blood Count 3.25 Miln/mm3 (4.50-5.90); White Blood Count 5.6 Thou/mm3 (3.8-10.6)
[2024-12-17 06:24] LABS: Alanine Aminotransferase 49 U/L (10-49); Albumin, Serum 3.1 gm/dL (3.4-4.8); Albumin/Globulin Ratio 1.1 (1.2-2.2); Alkaline Phosphatase 94 U/L (46-116); Anion Gap 7 (7-16); Aspartate Amino Transferase 45 U/L (0-34); BUN/Creatinine Ratio 28 Ratio (12-20); Bilirubin,Total 1.2 mg/dL (0.3-1.2); Blood Urea Nitrogen 11 mg/dL (9-23); Calcium 8.5 mg/dL (8.3-10.6); Calcium (Corrected) 9.2 mg/dL (8.5-10.1); Carbon Dioxide 28.5 mMol/L (20.0-31.0); Chloride 106 mMol/L (98-107); Creatinine (Component) 0.4 mg/dL (0.6-1.3); Globulin 2.7 gm/dL (2.3-3.5); Glucose 134 mg/dL (74-106); Osmolality,Calculated 282 (275-295); Potassium 3.6 mMol/L (3.4-5.1); Sodium 141 mMol/L (136-145); Total Protein 5.8 gm/dL (5.7-8.2); eGFR > 60 See Note
[2024-12-17] MEDS: MULTIVITAMIN 15 ML UDC GT (08:01)
[2024-12-17] MEDS: METOPROLOL SUCCINATE XL 25 MG TABCR 50 MG GT (08:01)
[2024-12-17] MEDS: THIAMINE 100 MG TABLET GT (08:02)
[2024-12-17] MEDS: PANTOPRAZOLE INJ 40 MG VIAL IV (09:00)
--- NOTE | 2024-12-17 09:10 | PC.SS ---
SS follow up note; Patient's BP is low and tachycardia, patient will possibly discharge tomorrow back to subacute.
--- NOTE | 2024-12-17 09:42 | PC.SS ---
Patient Marek Carrington a 84 Year old male admitted for for Acute Respiratory Failure. SS contacted patient's son, Colt Roy order to complete initial assessment, Colt reports he is surrogate decision maker, [phone]. Patient resides in [facility] and has been there for about 4 years. Patient is trach and pegged. Patient is non ambulatory and needs assistance completing all ADL's. At time of discharge patient will return back to Subacute. SS will contact SonColt when patient is medically cleared. Discharge Plan: [facility] Next of Kin, Colt Alfonso
--- NOTE | 2024-12-17 15:54 | ESPR_ITS ---
Documentation for date of: 12/17/24 Subjective Subjective Interval history: Patient examined at bedside. Increased free water flushes to 60 cc/h, will consider decreasing in a.m. PEG tube feedings still on hold as nursing was unable to suction any gastric contents out of G-tube. X-ray abdomen with Gastrografin confirmed that PEG tube is now migrated in duodenum. GI consulted for management. Per nursing however, still able to suction gastric contents after some maneuvering. So will resume tube feeds. Blood sugars stable, vitals unremarkable, telemetry reviewed patient is in A-fib with rates 70?80. Saturating 100% on 30% FiO2. Patient has completed course of antibiotics for ESBL pneumonia. Continue repositioning as needed to prevent hypoxemia. Dietary team consulted for restarting tube feeds, monitoring electrolytes and starting thiamine. Anticipate discharge back to sub acute after holiday weekend if patient remains stable. Exam Vital Signs Temp Pulse Resp BP Pulse Ox O2 Del Method FiO2 97.8 F 74 22 H 104/55 L 100 Mechanical Ventilation 30 12/17/24 15:31 12/17/24 15:31 12/17/24 15:31 12/17/24 15:31 12/17/24 15:31 12/17/24 15:31 12/17/24 15:31 Narrative Exam General: Nonverbal at baseline, ill-appearing HEENT: NCAT, PERRLA, left central line noted with intact dressing Cardiovascular: Irregularly irregular, no murmurs or rubs heard, no JVD Respiratory: Coarse breath sounds, no crackles or wheezing noted, trach in place Abdomen: Soft, nontender, not distended, normal bowel sounds. New PEG tube in place with gauze in surrounding area no discharge. Skin: Sacral ulcer covered by clean wound dressing Musculoskeletal: No pitting edema Neuro: Nonverbal at baseline, GCS 9 Objective Labs 12/17/24 05:07 12/17/24 05:07 Labs: Laboratory Results - last 24 hr 12/17/24 05:07 WBC 5.6 D RBC 3.25 L Hgb 9.8 L Hct 30.3 L MCV 93 MCH 30.2 MCHC 32.3 RDW Std Deviation 60.4 H Plt Count 160 Neut % (Auto) 77 Lymph % (Auto) 11 [place] % (Auto) 8 Eos % (Auto) 4 Baso % (Auto) 0 Neut # (Auto) 4.3 Lymph # (Auto) 0.6 L [place] # (Auto) 0.4 Eos # (Auto) 0.2 Baso # (Auto) 0.0 Immature Gran # (Auto) 0.04 H Absolute Nucleated RBC 0.00 Immature Gran % 1 H Nucleated RBC % 0 Sodium 141 Potassium 3.6 Chloride 106 Carbon Dioxide 28.5 Anion Gap 7 BUN 11 Creatinine 0.4 L Estim Creat Clear Calc 133.0 eGFR > 60 BUN/Creatinine Ratio 28 H Glucose 134 H Calculated Osmolality 282 Calcium 8.5 Corrected Calcium 9.2 Total Bilirubin 1.2 AST 45 H ALT 49 Alkaline Phosphatase 94 Total Protein 5.8 Albumin 3.1 L Globulin 2.7 Albumin/Globulin Ratio 1.1 L Quality Measures Quality Measures VTE prophylaxis Advance care planning discussed with:: patient Assessment & Plan Assessment Current Active Medications: Generic Name Dose Route Start Last Admin Trade Name Freq PRN Reason Stop Dose Admin Acetaminophen 650 mg 12/16/24 00:48 Acetaminophen 325 Mg Tablet PO 01/15/25 00:47 Q6HR PRN Fever >100.4 or Pain Albuterol/Ipratropium 3 ml 12/16/24 03:00 12/17/24 14:10 Albuterol/Ipratropium (Duoneb) Rt Emma 3 Ml Nebu INH 01/15/25 02:59 3 ml Q4HRRT KURT Administration Atorvastatin Calcium 40 mg 12/16/24 21:00 12/16/24 21:13 Atorvastatin Calcium 20 Mg Tablet GT 01/15/25 20:59 40 mg HS KURT Administration Carvedilol 3.125 mg 12/16/24 08:00 12/17/24 08:07 Carvedilol 3.125 Mg Tablet GT 01/15/25 07:59 Not Given BIDWM KURT Dextrose 25 ml 12/16/24 00:48 Dextrose 50%-Water Inj 50 Ml Syringe IV 01/15/25 00:47 Q15MIN PRN BG 50-70 responsive npo pt Dextrose 50 ml 12/16/24 00:48 Dextrose 50%-Water Inj 50 Ml Syringe IV 01/15/25 00:47 Q15MIN PRN BG <50 OR BG <70 & pt unresponsive Glucagon 1 mg 12/16/24 00:48 Glucagon Inj 1 Mg Vial IM Q15MIN PRN BG <70, and no IV access Heparin Sodium (Porcine) 5,000 unit 12/16/24 06:00 12/17/24 05:23 Heparin Sod Inj 5000 Unit/Ml Vial SC 12/30/24 05:59 5,000 unit Q8HR KURT Administration Insulin Human Lispro 0 unit 12/16/24 06:00 12/17/24 05:25 Insulin Lispro (Admelog) 1 Unit/0.01 Ml Unit SC 01/15/25 05:59 Not Given Q6HR KURT Protocol Metoprolol Succinate 50 mg 12/16/24 09:00 12/17/24 08:01 Metoprolol Succinate Xl 25 Mg Tabcr GT 01/15/25 08:59 50 mg QDAY KURT Administration Multivitamins/Minerals 15 ml 12/16/24 09:00 12/17/24 08:01 Multivitamin 15 Ml Udc GT 01/15/25 08:59 15 ml QDAY KURT Administration Pantoprazole Sodium 40 mg 12/16/24 09:00 12/17/24 09:00 Pantoprazole Inj 40 Mg Vial IV 01/15/25 08:59 40 mg QDAY KURT Administration Polyethylene Glycol 17 gm 12/16/24 01:14 Polyethylene Glycol 17 Gm Packet PO 01/15/25 08:59 QDAY PRN constipation Protocol Sennosides 1 tab 12/16/24 00:55 Senna Tablet GT 01/15/25 00:54 QDAY PRN CONSTIPATION Protocol Thiamine HCl 100 mg 12/16/24 09:00 12/17/24 08:02 Thiamine 100 Mg Tablet GT 12/21/24 08:59 100 mg QDAY KURT Administration Plan Kirill Hair is a 84-year-old male with past medical history significant for vegetative state status post CVA in 2019, status post tracheostomy, PEG tube, A- fib not on anticoagulation, hypertension, hyperlipidemia, diabetes was recently discharged from [facility] for worsening shortness of breath and concern for tracheal mass on bronchoscopy to [facility] for further surgical evaluation and possible biopsy on 12/14/24. While at [facility], patient had a NGA that was inconclusive for any findings due to image quality, tracheal mass that was initially a concern was noted to be a raised nonfriable yellow area suggestive of granulation tissue. Trach was exchanged to a smaller cuff and patient deemed safe for transfer back to [facility]. #Acute on chronic hypoxic respiratory failure?improving #Rule out tracheal mass #Status post trach collar dependence #History of ESBL pneumonia status post antibiotics Status post transfer to [facility] bedside [facility] on 12/14 showed 1 friable slightly yellow raised area suggestive of granulation tissue. Mass was seen to be nonobstructive to trach tube. 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 On 12/14, trach was exchanged with a smaller cough at 6?0 Shiley. IV meropenem and vancomycin was started for ESBL pneumonia given prior cultures, however due to low suspicion of pneumonia, antibiotics were stopped. MRSA nares negative. 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 LV function was hyperdynamic, otherwise no other information could be obtained due to poor image quality. - Continue to monitor on telemetry - Resume patient's home Coreg 3.125 mg twice daily and metoprolol succinate 50 mg daily - Started patient's home atorvastatin 40 mg at bedtime #PEG tube dependence Per bedside nurse upon report, states that patient's PEG tube was recently changed as well along with his new Gibson and trach. However, from transfer documents from [facility], unable to note when PEG tube was placed if it was placed -Patient will need to start tube feeds ENEIDA status post dietary consult - Due to concern of refeeding syndrome, patient will be on thiamine 100 mg daily for total of 5 days via PEG or IV -monitor electrolytes -resumed feeds -Increase free water flushes to 60 cc/h -GI consult pending for management of migrated G tube into duodenum #Type 2 diabetes mellitus Last A1c 4.9 on February 2024 - Every 6 hours bedside glucose checks along with sliding scale insulin - Patient takes long-acting Lantus, will start after patient starts his tube feeds later today #Anemia Patient's baseline hemoglobin is around 10 and last hemoglobin 9.6. - CBC every morning - Continue to monitor - Consider outpatient iron studies #Chronic indwelling Gibson in the setting of neurogenic bladder Last Gibson change was on 12/13/24 per patient's bedside nurse -Continue to monitor urine output via Gibson - No signs of infection noted in Gibson bag #Constipation - Senna and MiraLAX as needed #CVA 2019 status post trach/PEG dependence #Septic shock-resovled #NSTEMI type II likely supply demand ischemia-resolved #Nonverbal and bedbound #Lactic acidosis, resolved #Leukocytosis #Metabolic alkalosis-resolved Health maintenance: Diet: PEG feeds, GI consult for tube migration DVT/PPx: Heparin subcu GI ppx: Protonix IV Lines: PEG tube, Gibson Code Status: DNR Dispo: dc pending GI eval The patient's management plan was discussed with my attending physician Dr. Mcadams. Fatemeh Yun, PGY-1 Attending Provider Attestation/Addendum I have discussed and was present for the essential components of the history, physical examination, diagnosis, and treatment plan with the resident. I agree with the patient's care as documented by the resident and amended herein by me. Rob Mcadams, . Patient seen and evaluated this AM. No acute events overnight, patient slightly tachycardic pulse 10 9 in the AM, BP also soft in the a.m. 96/65 however patient may be a bit dehydrated. Will increase free water flushes today, continue tube feeds, the PEG tube seems to be functional however will assess with gastroenterology tomorrow. Likely discharge to subacute tomorrow/ pending specialist recommendations and continued improvement. Although this document has been carefully reviewed, there may still be some phonetic and other typographical errors. These errors are purely grammatical due to imperfections in the software program and should not be construed in any way to compromise the substance of the patient's medical care during this visit.
[2024-12-17] MEDS: carVEDILOL 3.125 MG TABLET GT (18:22)
[2024-12-17] MEDS: ATORVASTATIN CALCIUM 20 MG TABLET 40 MG GT (20:19)
[2024-12-18] VITALS (18 sets, daily range): BP systolic 111–141; BP diastolic 66–84; PULSE 62–880; RESP 18–30; TEMP 36–36.2; O2SAT 93–100; BMI 24.0
[2024-12-18] MEDS: ALBUTEROL/IPRATROPIUM (Duoneb) RT SOL 3 ML NEBU INH ×6 (02:07→22:58)
[2024-12-18] MEDS: HEPARIN SOD INJ 5000 UNIT/ML VIAL SC ×3 (05:35→21:04)
[2024-12-18 06:20] LABS: Basophils % (Auto) 0 % (0-2.5); Eosinophils # (Auto) 0.2 Thou/mm3 (0.0-0.5); Eosinophils % (Auto) 5 % (0-10); Hematocrit 30.6 % (41.0-53.0); Hemoglobin 9.8 g/dL (13.5-16.0); Immature Granulocytes % (Auto) 1 % (0-0); Immature Granulocytes Auto 0.05 Thou/mm3 (0.00-0.00); Lymphocytes # (Auto) 0.8 Thou/mm3 (1.0-4.8); Lymphocytes % (Auto) 19 % (10-50); Mean Corpuscular Volume 94 fL (80-100); Monocytes # (Auto) 0.4 Thou/mm3 (0.0-0.8); Monocytes % (Auto) 11 % (0-12); Neutrophils # (Auto) 2.5 Thou/mm3 (1.8-7.7); Neutrophils % (Auto) 63 % (37-80); Nucleated Red Blood Cell % 0 /100 WBC (0); Platelet Count 156 Thou/mm3 (140-440); RDW Standard Deviation 61.7 fL (35.1-43.9); Red Blood Count 3.27 Miln/mm3 (4.50-5.90); White Blood Count 3.9 Thou/mm3 (3.8-10.6)
[2024-12-18 06:54] LABS: Alanine Aminotransferase 61 U/L (10-49); Albumin, Serum 3.1 gm/dL (3.4-4.8); Albumin/Globulin Ratio 1.1 (1.2-2.2); Alkaline Phosphatase 109 U/L (46-116); Anion Gap 6 (7-16); Aspartate Amino Transferase 55 U/L (0-34); BUN/Creatinine Ratio 18 Ratio (12-20); Bilirubin,Total 0.8 mg/dL (0.3-1.2); Blood Urea Nitrogen 9 mg/dL (9-23); Calcium 8.6 mg/dL (8.3-10.6); Calcium (Corrected) 9.3 mg/dL (8.5-10.1); Carbon Dioxide 27.3 mMol/L (20.0-31.0); Chloride 104 mMol/L (98-107); Creatinine (Component) 0.5 mg/dL (0.6-1.3); Estimated Creatinine Clearance 106.4 mL/min (>60); Globulin 2.8 gm/dL (2.3-3.5); Glucose 126 mg/dL (74-106); Osmolality,Calculated 274 (275-295); Potassium 3.6 mMol/L (3.4-5.1); Sodium 137 mMol/L (136-145); Total Protein 5.9 gm/dL (5.7-8.2); eGFR > 60 See Note
[2024-12-18] MEDS: carVEDILOL 3.125 MG TABLET GT ×2 (08:12→17:16)
[2024-12-18] MEDS: THIAMINE 100 MG TABLET GT (08:12)
[2024-12-18] MEDS: MULTIVITAMIN 15 ML UDC GT (08:13)
[2024-12-18] MEDS: PANTOPRAZOLE INJ 40 MG VIAL IV (08:13)
[2024-12-18] MEDS: METOPROLOL SUCCINATE XL 25 MG TABCR 50 MG GT (08:13)
--- NOTE | 2024-12-18 11:15 | PC.SS ---
Follow up note: has informed Jack from [facility] pt will return today. Dr. Yun is aware to contact Dr. Keenan by phone. Cary from [facility] is aware.
--- NOTE | 2024-12-18 17:35 | ESPR_ITS ---
<Statement entered by Levar Jara MD - 12/19/24 08:04> I discussed with and supervised the web development intern physician involved in the care of this patient. Patient assessment and plan was discussed with entire medicine team, including my attending. I agree with the assessment and plan as documented by web development intern doctor. Patient care was discussed with my attending physician Dr. Pema Jara, PGY-2 Documentation for date of: 12/18/24 Subjective Subjective Interval history: Patient examined at bedside. Water flushes to 40 cc/h. GI consulted for management of migrate g tube. Will most likely eval tonight. Blood sugars stable, vitals unremarkable, telemetry reviewed patient is in A-fib with rates 70?80. Saturating 100% on 30% FiO2. Continue repositioning as needed to prevent hypoxemia. Anticipate discharge tomorrow after GI eval. Exam Vital Signs Temp Pulse Resp BP Pulse Ox O2 Del Method FiO2 96.8 F 84 26 H 115/66 100 Mechanical Ventilation 30 12/18/24 16:00 12/18/24 17:16 12/18/24 16:00 12/18/24 17:16 12/18/24 16:00 12/18/24 16:00 12/18/24 16:00 Narrative Exam General: Nonverbal at baseline, ill-appearing HEENT: NCAT, PERRLA, left central line noted with intact dressing Cardiovascular: Irregularly irregular, no murmurs or rubs heard, no JVD Respiratory: Coarse breath sounds, no crackles or wheezing noted, trach in place Abdomen: Soft, nontender, not distended, normal bowel sounds. New PEG tube in place with gauze in surrounding area no discharge. Skin: Sacral ulcer covered by clean wound dressing Musculoskeletal: No pitting edema Neuro: Nonverbal at baseline, GCS 9 Objective Labs 12/18/24 05:55 12/18/24 05:55 Labs: Laboratory Results - last 24 hr 12/18/24 05:55 WBC 3.9 RBC 3.27 L Hgb 9.8 L Hct 30.6 L MCV 94 MCH 30.0 MCHC 32.0 RDW Std Deviation 61.7 H Plt Count 156 Neut % (Auto) 63 Lymph % (Auto) 19 [place] % (Auto) 11 Eos % (Auto) 5 Baso % (Auto) 0 Neut # (Auto) 2.5 Lymph # (Auto) 0.8 L [place] # (Auto) 0.4 Eos # (Auto) 0.2 Baso # (Auto) 0.0 Immature Gran # (Auto) 0.05 H Absolute Nucleated RBC 0.00 Immature Gran % 1 H Nucleated RBC % 0 Sodium 137 Potassium 3.6 Chloride 104 Carbon Dioxide 27.3 Anion Gap 6 L BUN 9 Creatinine 0.5 L Estim Creat Clear Calc 106.4 eGFR > 60 BUN/Creatinine Ratio 18 Glucose 126 H Calculated Osmolality 274 L Calcium 8.6 Corrected Calcium 9.3 Magnesium 2.0 Total Bilirubin 0.8 AST 55 H ALT 61 H Alkaline Phosphatase 109 Total Protein 5.9 Albumin 3.1 L Globulin 2.8 Albumin/Globulin Ratio 1.1 L Quality Measures Quality Measures VTE prophylaxis Advance care planning discussed with:: child Assessment & Plan Assessment Current Active Medications: Generic Name Dose Route Start Last Admin Trade Name Freq PRN Reason Stop Dose Admin Acetaminophen 650 mg 12/16/24 00:48 Acetaminophen 325 Mg Tablet PO 01/15/25 00:47 Q6HR PRN Fever >100.4 or Pain Albuterol/Ipratropium 3 ml 12/16/24 03:00 12/18/24 14:18 Albuterol/Ipratropium (Duoneb) Rt Emma 3 Ml Nebu INH 01/15/25 02:59 3 ml Q4HRRT KURT Administration Atorvastatin Calcium 40 mg 12/16/24 21:00 12/17/24 20:19 Atorvastatin Calcium 20 Mg Tablet GT 01/15/25 20:59 40 mg HS KURT Administration Carvedilol 3.125 mg 12/16/24 08:00 12/18/24 17:16 Carvedilol 3.125 Mg Tablet GT 01/15/25 07:59 3.125 mg BIDWM KURT Administration Dextrose 25 ml 12/16/24 00:48 Dextrose 50%-Water Inj 50 Ml Syringe IV 01/15/25 00:47 Q15MIN PRN BG 50-70 responsive npo pt Dextrose 50 ml 12/16/24 00:48 Dextrose 50%-Water Inj 50 Ml Syringe IV 01/15/25 00:47 Q15MIN PRN BG <50 OR BG <70 & pt unresponsive Glucagon 1 mg 12/16/24 00:48 Glucagon Inj 1 Mg Vial IM Q15MIN PRN BG <70, and no IV access Heparin Sodium (Porcine) 5,000 unit 12/16/24 06:00 12/18/24 13:08 Heparin Sod Inj 5000 Unit/Ml Vial SC 12/30/24 05:59 5,000 unit Q8HR KURT Administration Insulin Human Lispro 0 unit 12/16/24 06:00 12/18/24 17:24 Insulin Lispro (Admelog) 1 Unit/0.01 Ml Unit SC 01/15/25 05:59 Not Given Q6HR KURT Protocol Metoprolol Succinate 50 mg 12/16/24 09:00 12/18/24 08:13 Metoprolol Succinate Xl 25 Mg Tabcr GT 01/15/25 08:59 50 mg QDAY KURT Administration Multivitamins/Minerals 15 ml 12/16/24 09:00 12/18/24 08:13 Multivitamin 15 Ml Udc GT 01/15/25 08:59 15 ml QDAY KURT Administration Pantoprazole Sodium 40 mg 12/16/24 09:00 12/18/24 08:13 Pantoprazole Inj 40 Mg Vial IV 01/15/25 08:59 40 mg QDAY KURT Administration Polyethylene Glycol 17 gm 12/16/24 01:14 Polyethylene Glycol 17 Gm Packet PO 01/15/25 08:59 QDAY PRN constipation Protocol Sennosides 1 tab 12/16/24 00:55 Senna Tablet GT 01/15/25 00:54 QDAY PRN CONSTIPATION Protocol Thiamine HCl 100 mg 12/16/24 09:00 12/18/24 08:12 Thiamine 100 Mg Tablet GT 12/21/24 08:59 100 mg QDAY KURT Administration Plan Kirill Hair is a 84-year-old male with past medical history significant for vegetative state status post CVA in 2019, status post tracheostomy, PEG tube, A- fib not on anticoagulation, hypertension, hyperlipidemia, diabetes was recently discharged from [facility] for worsening shortness of breath and concern for tracheal mass on bronchoscopy to [facility] for further surgical evaluation and possible biopsy on 12/14/24. While at [facility], patient had a NGA that was inconclusive for any findings due to image quality, tracheal mass that was initially a concern was noted to be a raised nonfriable yellow area suggestive of granulation tissue. Trach was exchanged to a smaller cuff and patient deemed safe for transfer back to [facility]. #Acute on chronic hypoxic respiratory failure?improving #Rule out tracheal mass #Status post trach collar dependence #History of ESBL pneumonia status post antibiotics Status post transfer to [facility] bedside [facility] on 12/14 showed 1 friable slightly yellow raised area suggestive of granulation tissue. Mass was seen to be nonobstructive to trach tube. 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 On 12/14, trach was exchanged with a smaller cough at 6?0 Shiley. IV meropenem and vancomycin was started for ESBL pneumonia given prior cultures, however due to low suspicion of pneumonia, antibiotics were stopped. MRSA nares negative. 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 LV function was hyperdynamic, otherwise no other information could be obtained due to poor image quality. - Continue to monitor on telemetry - Resume patient's home Coreg 3.125 mg twice daily and metoprolol succinate 50 mg daily - Started patient's home atorvastatin 40 mg at bedtime #PEG tube dependence Per bedside nurse upon report, states that patient's PEG tube was recently changed as well along with his new Gibson and trach. However, from transfer documents from [facility], unable to note when PEG tube was placed if it was placed -Patient will need to start tube feeds ENEIDA status post dietary consult - Due to concern of refeeding syndrome, patient will be on thiamine 100 mg daily for total of 5 days via PEG or IV -monitor electrolytes -resumed feeds -Increase free water flushes to 60 cc/h -GI consult pending for management of migrated G tube into duodenum #Type 2 diabetes mellitus Last A1c 4.9 on February 2024 - Every 6 hours bedside glucose checks along with sliding scale insulin - Patient takes long-acting Lantus, will start after patient starts his tube feeds later today #Anemia Patient's baseline hemoglobin is around 10 and last hemoglobin 9.6. - CBC every morning - Continue to monitor - Consider outpatient iron studies #Chronic indwelling Gibson in the setting of neurogenic bladder Last Gibson change was on 12/13/24 per patient's bedside nurse -Continue to monitor urine output via Gibson - No signs of infection noted in Gibson bag #Constipation - Senna and MiraLAX as needed #CVA 2019 status post trach/PEG dependence #Septic shock-resovled #NSTEMI type II likely supply demand ischemia-resolved #Nonverbal and bedbound #Lactic acidosis, resolved #Leukocytosis #Metabolic alkalosis-resolved Health maintenance: Diet: PEG feeds, GI consult for tube migration DVT/PPx: Heparin subcu GI ppx: Protonix IV Lines: PEG tube, Gibson Code Status: DNR Dispo: dc pending GI eval The patient's management plan was discussed with my attending physician Dr. Mcadams. Anne Cano, PGY-1 Attending Provider Attestation/Addendum I have discussed and was present for the essential components of the history, physical examination, diagnosis, and treatment plan with the resident. I agree with the patient's care as documented by the resident and amended herein by me. Rob Mcadams, DO. Patient seen and evaluated this AM. Patient doing well, vital signs stable, patient afebrile overnight. Gastroenterology will evaluate the patient's PEG tube, showed extension of the duodenum although it has been functioning, if GI determines placement is okay, patient can be discharged back to subacute tomorrow Although this document has been carefully reviewed, there may still be some phonetic and other typographical errors. These errors are purely grammatical due to imperfections in the software program and should not be construed in any way to compromise the substance of the patient's medical care during this visit.
--- NOTE | 2024-12-18 18:54 | PD.IMCONS ---
HPI Data of Consult Requesting Physician: Abner Mcadams DO Primary Care Provider: Dennis Ramires MD Consult Narrative Reason for consult: Migrated PEG tube into the duodenum History of present illness: 84 years old male has been consulted for the migration of the PEG tube into the duodenum The nursing staff could not get anything when they aspirated from for the gastric contents cc:: cc: Abner Mcadams DO Review of Systems Review of Systems ROS Unobtainable: unobtainable due to medical condition Meds Home Medications and Allergies Home Medications ?Medication ?Instructions ?Recorded ?Confirmed ?Type acetaminophen 325 mg capsule 650 mg feeding tube Q6HR PRN Pain 08/11/20 12/16/24 History (Tylenol) atorvastatin 40 mg tablet (Lipitor) 40 mg feeding tube HS 08/11/20 12/16/24 History bisacodyl 10 mg rectal suppository 10 mg GA Q72H PRN Constipation 08/11/20 12/16/24 History (Dulcolax (bisacodyl)) carvedilol 3.125 mg tablet (Coreg) 3.125 mg feeding tube BID 08/11/20 12/16/24 History cyanocobalamin (vitamin B-12) 1,000 mcg feeding tube QDAY 08/11/20 12/16/24 History 1,000 mcg tablet (Vitamin B-12) dexlansoprazole 30 mg 30 mg feeding tube QDAY 08/11/20 12/12/24 History capsule,biphase delayed release (Dexilant) insulin glargine 100 unit/mL 30 unit subcut HS 08/11/20 12/16/24 History subcutaneous solution (Lantus U-100 Insulin) polyethylene glycol 3350 17 gram 17 g feeding tube QDAY PRN 08/11/20 08/12/20 History oral powder packet (Miralax) Constipation magnesium hydroxide 400 mg/5 mL 30 ml feeding tube Q48H PRN 08/12/20 12/16/24 History oral suspension (Milk of Magnesia) Constipation multivitamin with minerals 1 tab PO QDAY 08/12/20 12/12/24 History sodium phosphates 19 gram-7 118 ml GA Q72H PRN constipation 08/12/20 12/16/24 History gram/118 mL enema (Fleet Enema) albuterol sulfate 90 mcg/actuation inhalation 12/16/24 History aerosol inhaler carbamide peroxide 6.5 % ear drops 5 drp otic (ear) .Q61 12/16/24 12/16/24 History (Debrox) ipratropium bromide 17 inhalation 12/16/24 History mcg/actuation HFA aerosol inhaler (Atrovent HFA) ondansetron HCl 4 mg tablet 4 mg feeding tube Q6H PRN nausea 12/16/24 12/16/24 History and vomiting Allergies Allergy/AdvReac Type Severity Reaction Status Date / Time No Known Allergies Allergy Verified 01/02/19 14:22 Exam Vital Signs Temp Pulse Resp BP Pulse Ox O2 Del Method FiO2 96.8 F 79 18 115/66 100 Mechanical Ventilation 30 12/18/24 16:00 12/18/24 18:36 12/18/24 18:36 12/18/24 17:16 12/18/24 18:36 12/18/24 16:00 12/18/24 18:36 Constitutional Comments: Chronically ill patient with tracheostomy and PEG placement and is SNF patient Routine Abdominal Exam Comments: PEG tube in place in the form of a long Gibson catheter Results Labs 12/18/24 05:55 12/18/24 05:55 Labs: Short CBC 12/18/24 Range/Units 05:55 WBC 3.9 (3.8-10.6) Thou/mm3 Hgb 9.8 L (13.5-16.0) g/dL Hct 30.6 L (41.0-53.0) % Plt Count 156 (140-440) Thou/mm3 BMP 12/18/24 05:55 Sodium 137 Potassium 3.6 Chloride 104 Carbon Dioxide 27.3 BUN 9 Creatinine 0.5 L Glucose 126 H Calcium 8.6 Liver Function 12/18/24 Range/Units 05:55 Total Bilirubin 0.8 (0.3-1.2) mg/dL AST 55 H (0-34) U/L ALT 61 H (10-49) U/L Alkaline Phosphatase 109 (46-116) U/L Albumin 3.1 L (3.4-4.8) gm/dL Assessment and Plan Additional Assessment & Plan Additional Plan: # Migrated PEG tube which is actually a long Gibson catheter Plan The balloon of the existing PEG tube was deflated Tube pulled into the proper position Reinflated the balloon with 10 cc of water Discussed the case with nursing staff The PEG tube can be used for feeding as well as for giving the medications Thank you very much for the opportunity to participate in care of this patient Patient can be discharged back to the SNF from a GI viewpoint
[2024-12-18] MEDS: ATORVASTATIN CALCIUM 20 MG TABLET 40 MG GT (20:48)
[2024-12-19] VITALS (8 sets, daily range): BP systolic 105–136; BP diastolic 66–79; PULSE 64–86; RESP 18–26; TEMP 36.1; O2SAT 100; BMI 24.0
[2024-12-19] MEDS: ALBUTEROL/IPRATROPIUM (Duoneb) RT SOL 3 ML NEBU INH ×3 (02:34→10:43)
[2024-12-19] MEDS: HEPARIN SOD INJ 5000 UNIT/ML VIAL SC (06:36)
[2024-12-19] MEDS: PANTOPRAZOLE INJ 40 MG VIAL IV (08:27)
[2024-12-19] MEDS: THIAMINE 100 MG TABLET GT (08:28)
[2024-12-19] MEDS: MULTIVITAMIN 15 ML UDC GT (08:32)
--- NOTE | 2024-12-19 09:25 | PD.IMPROG ---
Documentation for date of: 12/19/24 Subjective Subjective Interval history: The readjusted PEG tube is working well from a GI viewpoint patient can be discharged to SNF Exam Vital Signs Temp Pulse Resp BP Pulse Ox O2 Del Method FiO2 97.0 F 86 18 105/69 100 Mechanical Ventilation 30 12/19/24 08:00 12/19/24 08:00 12/19/24 08:00 12/19/24 08:00 12/19/24 08:00 12/19/24 08:00 12/19/24 08:00 Objective Labs 12/18/24 05:55 12/18/24 05:55 Labs: Laboratory Results - last 24 hr 12/19/24 06:17 Magnesium 2.0 Impressions Impression: PEG tube issue resolved From a GI viewpoint patient can be sent back to SNF Assessment & Plan A&P Narrative # Migrated PEG tube which is actually a long Gibson catheter Plan The balloon of the existing PEG tube was deflated Tube pulled into the proper position Reinflated the balloon with 10 cc of water Discussed the case with nursing staff The PEG tube can be used for feeding as well as for giving the medications Thank you very much for the opportunity to participate in care of this patient Patient can be discharged back to the SNF from a GI viewpoint Time Spent With Patient Time: Total time spent is greater than 50% in coordination of care (as documented) at patient's floor/unit and/or counseling patient:
--- NOTE | 2024-12-19 13:35 | PC.NURSE ---
gave report to alisia HEARD
--- NOTE | 2024-12-19 14:45 | PD.RESDS ---
Planned Discharge Date 12/19/24 DS: Providers Provider Date of admission: 12/16/24 00:10 Primary care physician: Dennis Ramires MD Admitting Provider: Anuel Benz MD Attending Provider on Admission: Curtis Loredo MD Consults: 12/16/24 00:54 Referral Registered Dietitian Stat Comment: Tube feeds, Nutren 1.5L or equivalent tube feed 12/16/24 02:47 Referral Registered Dietitian Urgent Comment: Instructions: Tube feed recommendation. Ensure peg tube placement prior to starting. 12/16/24 12:42 Consult to Gastroenterology Stat Comment: G tube in duodenum Consulting Provider: Abby Espinal Attending Provider on DC: Curtis Loredo MD Discharging Provider: Curtis Loredo MD DS: Diagnosis Problem List Completed Was Problem List Reviewed/Reconciled?: Yes Hospital Course Hospital Course Hospital course: Reason for hospitalization: monitoring s/p new trach tube Marek Tolentino is 84 yr male with PMH of non-verbal, vegetative state, CVA 2019, tracheostomy, PEG tube feed, atrial fibrillation, hypertension, hyperlipidemia and diabetes who was brought back into to [facility] 12/16/24 as transfer from [facility] after tracheostomy tube replacement. Further workup at [facility] showed their to be no tracheal mass. The tube was exchanged for different size. 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 Bedside bronchoscopy through endotracheal tube showed tip well above carlo, no coughing was induced, and trachea was not collapsing as completely as other times. Patient did not require any sedation or anxiety medications, was set to a vent setting of AC/VC, respiration rate of 10, PEEP set at 8 and FiO2 of 50%. G tube appeared non functional. X-ray abdomen with Gastrografin confirmed that PEG tube had migrated in duodenum. GI consulted for management. They repositioned the tube and feeds were resumed. Patient is now in stable condition with keeping good saturation. Ready for discharge back to [facility] acute terrell. Recommendations were given as below. Discharge Recommendations: Resume previous medications. Antibiotics course has been completed. Reposition patient as needed if oxygen is dropping. Can continue tube feeds. 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 Loredo. Anne Cano MD, PGY-1 Time Spent with Patient Time attestation: Total time spent providing and/or coordinating discharge services: Time spent: Greater than 30 minutes Exam Vital Signs Temp Pulse Resp BP Pulse Ox O2 Del Method FiO2 97.0 F 84 20 112/66 100 Mechanical Ventilation 30 12/19/24 12:00 12/19/24 12:00 12/19/24 12:00 12/19/24 12:00 12/19/24 12:00 12/19/24 12:00 12/19/24 12:00 Narrative Exam General: Nonverbal at baseline, ill-appearing HEENT: NCAT, PERRLA, left central line noted with intact dressing Cardiovascular: Irregularly irregular, no murmurs or rubs heard, no JVD Respiratory: Coarse breath sounds, no crackles or wheezing noted, trach in place Abdomen: Soft, nontender, not distended, normal bowel sounds. New PEG tube in place with gauze in surrounding area no discharge. Skin: Sacral ulcer covered by clean wound dressing Musculoskeletal: No pitting edema Neuro: Nonverbal at baseline, GCS 9 Discharge Plan Plan Patient Disposition: Xfer [facility] Acute Patient condition on transfer: Stable Prescriptions/Referrals Prescriptions/Med Rec: Continued carvedilol [Coreg] 3.125 mg Tablet 3.125 mg feeding tube BID atorvastatin [Lipitor] 40 mg Tablet 40 mg feeding tube HS insulin glargine [Lantus U-100 Insulin] 100 unit/mL Solution 30 unit SUBCUT HS Rx Instructions: 2200 cyanocobalamin (vitamin B-12) [Vitamin B-12] 1,000 mcg Tablet 1,000 mcg feeding tube QDAY bisacodyl [Dulcolax (bisacodyl)] 10 mg Suppository 10 mg AZ Q72H PRN (Reason: Constipation) dexlansoprazole [Dexilant] 30 mg Capsule,Biphase Delayed Releas 30 mg feeding tube QDAY polyethylene glycol 3350 [Miralax] 17 gram Powder In Packet 17 g feeding tube QDAY PRN (Reason: Constipation) acetaminophen [Tylenol] 325 mg Capsule 650 mg feeding tube Q6HR PRN (Reason: Pain) magnesium hydroxide [Milk of Magnesia] 400 mg/5 mL Suspension 30 ml feeding tube Q48H PRN (Reason: Constipation) Fleet Enema 19-7 gram/118 mL Enema 118 ml AZ Q72H PRN (Reason: constipation ) multivitamin with minerals Tablet 1 tab PO QDAY Debrox 6.5 % drops 5 drp otic (ear) .Q61 Rx Instructions: both ears ondansetron HCl 4 mg tablet 4 mg feeding tube Q6H PRN (Reason: nausea and vomiting) albuterol sulfate 90 mcg/actuation HFA aerosol inhaler INHALATION Atrovent HFA 17 mcg/actuation HFA aerosol inhaler INHALATION Discontinued levofloxacin 750 mg tablet 750 mg PO Q24H Qty: 10 0RF levofloxacin 750 mg tablet 750 mg PO Q24H Qty: 7 0RF Referrals: Dennis Ramires MD [Primary Care Provider] - Patient/Caregiver Discharge Instructions Other Discharge Activity Instructions:: Resume previous medications. Antibiotics course has been completed. Reposition patient as needed if oxygen is dropping. Can continue tube feeds. Education Materials: Adjusting to Your Tracheostomy Tube, Cleaning Your Tracheostomy Print Language: Iranian Stand Alone Forms: Melanie Award Info., Patient Portal Info Letter Discharge Order Discharge Orders: Discharge (Routine); Ordered 12/19/24 Ordered By: Anne Cano Quality Discharge Quality Measures VTE prophylaxis Attestestation Attestation I discussed with and supervised the resident physician who took care of this patient. I agree with the assessment and discharge plan as above.
--- NOTE | 2024-12-19 15:15 | PC.NURSE ---
Discontinued central line and barron to remain per Dr. Cano orders .
== END 2024-12-19 13:56 | DRG 133 ==
LOC: S2NX 01:52 → S3NX 12-17 03:22
PROVIDERS: Student in an Organized Health Care Education/Training Program; Admitting Provider Student in an Organized Health Care Education/Training Program; PCP Specialist; Visit Provider Internal Medicine
DX: J96.21 Acute and chronic respiratory failure with hypoxia (principal); I48.91 Unspecified atrial fibrillation; I10 Essential (primary) hypertension; E78.5 Hyperlipidemia, unspecified; E11.9 Type 2 diabetes mellitus without complications; D64.9 Anemia, unspecified; K59.00 Constipation, unspecified; N31.9 Neuromuscular dysfunction of bladder, unspecified; Z66 Do not resuscitate; K94.23 Gastrostomy malfunction; Z74.01 Bed confinement status; E87.4 Mixed disorder of acid-base balance; J39.8 Other specified diseases of upper respiratory tract; I21.A1 Myocardial infarction type 2; Z79.4 Long term (current) use of insulin; Z79.899 Other long term (current) drug therapy; Z86.73 Personal history of transient ischemic attack (TIA), and cerebral infarction without residual deficits; Z86.19 Personal history of other infectious and parasitic diseases; Z87.01 Personal history of pneumonia (recurrent); Z96.0 Presence of urogenital implants; Y83.3 Surgical operation with formation of external stoma as the cause of abnormal reaction of the patient, or of later complication, without mention of misadventure at the time of the procedure
CPT/HCPCS: 36415; 74018; 80053; 83735; 85025; 87081; 93225; 94002; 94003; 94640; 94664; A9270; J1643; J2470; Q9963

== ENCOUNTER 2024-12-19 14:26 | Inpatient (IN) | payer MEDICAID, OTHER, SELFPAY ==
--- NOTE | 2024-12-19 14:57 | XR_ITS ---
Examination: AP chest single view Technique: AP portable sitting chest single view Exam date and time: December 19, 2024 1719 hrs. Comparison December 12, 2024 Indications: Status post tracheostomy placement Findings: Tracheostomy tube tip 4.4 cm above carlo Atelectasis versus mild pneumonia left base Mild enlargement cardiac contour Impression: Atelectasis versus mild pneumonia left base
--- NOTE | 2024-12-19 14:58 | EKG_ITS ---
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
--- NOTE | 2024-12-19 16:02 | PC.NURSE ---
Resident admitted from acute, accompanied by Nurse and RT,around 1402, resident was awake, on mechanical vent no distress, sating 96%, vital sign was stable, resident has a barron for neuroginic bladder, bruises/discoloration was noted to bilateral hands,and abdomen,MD. made aware reviewed his medications, made order and carried out, family was notified, we will continue to monitor.
[2024-12-19 17:51] VITALS: BP 110/68; RESP 74; TEMP 36.4; O2SAT 98
[2024-12-19 18:05] LABS: Base Excess 5 (-3-3); HCO3 28 mEq/L (20-26); Inspired Oxygen, FIO2 21 %; O2 Saturation 101 % (91-98); PCO2 36 mmHg (32.0-48.0); PO2 146 mmHg (83-108); pH, Arterial 7.51 (7.35-7.45)
[2024-12-19 18:08] LABS: Allen Test Performed/OK; Puncture Site Left Radial
[2024-12-19 20:04] LABS: Basophils # (Auto) 0.0 Thou/mm3 (0.0-0.2); Basophils % (Auto) 0 % (0-2.5); Eosinophils # (Auto) 0.2 Thou/mm3 (0.0-0.5); Eosinophils % (Auto) 4 % (0-10); Hematocrit 29.4 % (41.0-53.0); Hemoglobin 9.8 g/dL (13.5-16.0); Immature Granulocytes Auto 0.07 Thou/mm3 (0.00-0.00); Lymphocytes # (Auto) 0.9 Thou/mm3 (1.0-4.8); Lymphocytes % (Auto) 19 % (10-50); Mean Corpuscular HGB Conc 33.3 g/dl (31.0-37.0); Mean Corpuscular Hemoglobin 30.1 pg (25.0-35.0); Mean Corpuscular Volume 90 fL (80-100); Monocytes # (Auto) 0.6 Thou/mm3 (0.0-0.8); Monocytes % (Auto) 13 % (0-12); Neutrophils # (Auto) 3.1 Thou/mm3 (1.8-7.7); Neutrophils % (Auto) 62 % (37-80); Nucleated Red Blood Cell # 0.00 Thou/mm3 (0.00-0.00); Nucleated Red Blood Cell % 0 /100 WBC (0); Platelet Count 159 Thou/mm3 (140-440); RDW Standard Deviation 60.2 fL (35.1-43.9); Red Blood Count 3.26 Miln/mm3 (4.50-5.90); White Blood Count 4.9 Thou/mm3 (3.8-10.6)
[2024-12-19 20:18] LABS: Alanine Aminotransferase 63 U/L (10-49); Albumin, Serum 3.3 gm/dL (3.4-4.8); Albumin/Globulin Ratio 1.2 (1.2-2.2); Alkaline Phosphatase 119 U/L (46-116); Anion Gap 2 (7-16); Aspartate Amino Transferase 48 U/L (0-34); BUN/Creatinine Ratio 18 Ratio (12-20); Bilirubin,Total 0.8 mg/dL (0.3-1.2); Blood Urea Nitrogen 9 mg/dL (9-23); Calcium 8.8 mg/dL (8.3-10.6); Calcium (Corrected) 9.4 mg/dL (8.5-10.1); Carbon Dioxide 29.0 mMol/L (20.0-31.0); Chloride 108 mMol/L (98-107); Creatinine (Component) 0.5 mg/dL (0.6-1.3); Globulin 2.8 gm/dL (2.3-3.5); Glucose 154 mg/dL (74-106); Osmolality,Calculated 279 (275-295); Potassium 4.1 mMol/L (3.4-5.1); Sodium 139 mMol/L (136-145); Total Protein 6.1 gm/dL (5.7-8.2); eGFR > 60 See Note
[2024-12-19 20:30] VITALS: RESP 24
--- NOTE | 2024-12-19 20:35 | ESHP_ITS ---
Physical exam Physical Exam Vital signs: Temp Pulse Resp BP Pulse Ox O2 Del Method FiO2 97.6 F 83 27 H 110/68 99 Mechanical Ventilation 26 12/19/24 17:51 12/20/24 06:18 12/20/24 06:18 12/19/24 20:54 12/20/24 06:18 12/19/24 17:51 12/20/24 06:18 Constitutional Comments: VSS HEENT Exam Comments: NAD Neck Exam Comments: NAD Chest/Breast/Axilla Exam Comments: NAD Respiratory Exam Respiratory: Present chest non-tender and lungs clear Comments: Trach to blow by with O2 supplementation Cardiovascular Exam Comments: A-fib with irregularly irregular pulse Abdominal Exam Comments: NAD Rectal Exam Comments: deferred Exam Comments: NAD Extremities Exam Comments: no edema Back/Spine/Pelvis Exam Comments: NAD Neurological Exam Comments: PVS, fully dependent for all care. No cognizant response. Incontinent to B & B Rehabilitation potential Diagnosis (1) Chronic respiratory failure, unspecified whether with hypoxia or hypercapnia: Status: Chronic (2) Tracheostomy status: Status: Chronic (3) Chronic atrial fibrillation: Status: Chronic (4) Other sequelae of cerebral infarction: Status: Chronic (5) Persistent vegetative state: Status: Chronic (6) Hyperlipidemia, unspecified: Status: Chronic (7) G tube feedings: Status: Chronic (8) Diabetes type 2, controlled: Status: Chronic Assessment & Plan Assessment: Pt with multiple organ compromise and fully dependent for all care Plan: Current treatment reviewed and continued Prognosis Prognosis: Poor If patient not informed of condion, describe why: not cognizant HPI History of Present Illness HPI: Pt is a 84 yrs of age male who has been a resident of [facility] for very many years recently transferred to Acute hospital on 12-08-24 for pneumonia and sepsis. 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
[2024-12-19] MEDS: ATORVASTATIN 40 MG TABLET GT (20:50)
[2024-12-19 20:54] VITALS: BP 110/68; PULSE 74
[2024-12-19] MEDS: CARVEDILOL 3.125 MG TABLET GT (20:54)
--- NOTE | 2024-12-19 22:24 | PC.NURSE ---
made aware of lab results, EKG and CXR, new order to decrease Fio2 and to monitor minute volume tonight, RT made aware of new order, follow up with tomorrow, resident in room resting, call light within reach, no s/s of distress at this time.
[2024-12-20] VITALS (8 sets, daily range): BP systolic 109–149; BP diastolic 59–82; PULSE 67–89; RESP 23–30; TEMP 35.9–36; O2SAT 98–100
[2024-12-20] MEDS: IPRATROPIUM/ALBUTEROL 3 ML AMPUL.NEB INH ×4 (00:26→19:52)
--- NOTE | 2024-12-20 03:08 | PC.RT ---
fio2 titrated to 26% per DR. Ramires at 21:26
--- NOTE | 2024-12-20 06:06 | PC.NURSE ---
New order for ABG at noon to follow up PO2, RT made aware.
[2024-12-20] MEDS: CARVEDILOL 3.125 MG TABLET GT (08:47)
[2024-12-20] MEDS: DEXLANSOPRAZOLE 30 MG PO (08:48)
[2024-12-20] MEDS: CYANOCOBALAMIN (VITAMIN B-12) 500 MCG TABLET 1000 MCG GT (08:48)
[2024-12-20] MEDS: MULTIVITAMIN 1 TAB TABLET GT (08:49)
--- NOTE | 2024-12-20 12:04 | PC.DIETICIAN ---
Dietitian note: Recommend add 30ml SF Prostat once daily and manual minimum water flush of 600ml/shift via [place]. Thank you
[2024-12-20 12:59] LABS: Base Excess 5 (-3-3); HCO3 30 mEq/L (20-26); Inspired Oxygen, FIO2 21 %; O2 Saturation 100 % (91-98); PCO2 43 mmHg (32.0-48.0); PO2 124 mmHg (83-108); pH, Arterial 7.45 (7.35-7.45)
[2024-12-20 13:01] LABS: Allen Test Performed/OK; Puncture Site Left Radial
[2024-12-20] MEDS: ATORVASTATIN 40 MG TABLET GT (21:56)
[2024-12-21] VITALS (10 sets, daily range): BP systolic 107–137; BP diastolic 65–77; PULSE 68–99; RESP 22–201; TEMP 36.2–36.4; O2SAT 97–99
[2024-12-21] MEDS: IPRATROPIUM/ALBUTEROL 3 ML AMPUL.NEB INH ×4 (00:52→18:09)
[2024-12-21] MEDS: MULTIVITAMIN 1 TAB TABLET GT (09:26)
[2024-12-21] MEDS: DEXLANSOPRAZOLE 30 MG PO (09:26)
[2024-12-21] MEDS: CYANOCOBALAMIN (VITAMIN B-12) 500 MCG TABLET 1000 MCG GT (09:26)
[2024-12-21] MEDS: CARVEDILOL 3.125 MG TABLET GT ×2 (09:27→21:58)
[2024-12-21] MEDS: ATORVASTATIN 40 MG TABLET GT (21:58)
--- NOTE | 2024-12-21 23:21 | PD.SAPROG ---
Progress Note - SubAcute DIAGNOSIS (1) Chronic respiratory failure, unspecified whether with hypoxia or hypercapnia: Status: Chronic (2) Tracheostomy status: Status: Chronic (3) Chronic atrial fibrillation: Status: Chronic (4) Other sequelae of cerebral infarction: Status: Chronic (5) Persistent vegetative state: Status: Chronic (6) Hyperlipidemia, unspecified: Status: Chronic (7) G tube feedings: Status: Chronic (8) Diabetes type 2, controlled: Status: Chronic SUBJECTIVE Fever:: none GI:: none Shortness of Breath:: none Pain:: none OBJECTIVE Most recent vital signs: Last Vital Signs Temp 97.1 F 12/21/24 18:00 Pulse 80 12/21/24 21:58 Resp 29 H 12/21/24 18:09 BP 122/73 12/21/24 21:58 Pulse Ox 99 12/21/24 18:09 O2 Del Method Mechanical Ventilation 12/21/24 05:38 FiO2 21 12/21/24 18:09 Neurological:: PVS Speech:: none Answers questions:: no Respiratory:: lungs clear Cardiovascular: RRR Abdomen: soft and nontender Extremities:: deformities Tracheostomy:: to blow by Feeding per:: G tube ASSESSMENT & PLAN Assessment: Pt with multiple organ compromise and fully dependent for all care and with poor prognosis. VSS Plan: Current treatment reviewed and continued
[2024-12-22] VITALS (10 sets, daily range): BP systolic 94–138; BP diastolic 55–85; PULSE 53–80; RESP 21–26; TEMP 36.1–36.5; O2SAT 97–100
[2024-12-22] MEDS: IPRATROPIUM/ALBUTEROL 3 ML AMPUL.NEB INH ×4 (00:49→19:31)
[2024-12-22] MEDS: CYANOCOBALAMIN (VITAMIN B-12) 500 MCG TABLET 1000 MCG GT (09:46)
[2024-12-22] MEDS: MULTIVITAMIN 1 TAB TABLET GT (09:47)
[2024-12-22] MEDS: DEXLANSOPRAZOLE 30 MG PO (09:47)
--- NOTE | 2024-12-22 15:57 | PC.SS ---
Resident is laying in bed with head of the bed elevated with call light properly placed with no signs of distress. Resident has trach in place and GT for medication and nutrition. Resident is non verbal unable to make decisions for self. Resident will remain in current care and will continue to have all subacute care needs met by staff. This SSD will make daily contact with resident and will monitor for changes in mood and behavior.
[2024-12-22] MEDS: ATORVASTATIN 40 MG TABLET GT (21:20)
[2024-12-22] MEDS: CARVEDILOL 3.125 MG TABLET GT (21:24)
--- NOTE | 2024-12-22 22:42 | PC.NURSE ---
Antibiotics ongoing for elevated WBC's. No adverse reaction noted. V/S within normal limits. Respirations even and unlabored with bilateral lungs with noted rhonchi. On continuous pulse Ox monitoring with SpO2 currently at 96% on 10L and 35% FiO2 via blow by. productive cough with noted thick yellow secretions suctioned via trachea. Fluids encourgaed via g-tube and tolerated well. Voiding without s/s of dysuria, no hematuria noted, no foul odor noted.
[2024-12-23] VITALS (10 sets, daily range): BP systolic 103–132; BP diastolic 62–77; PULSE 59–97; RESP 19–26; TEMP 36.1–36.4; O2SAT 95–99
[2024-12-23] MEDS: IPRATROPIUM/ALBUTEROL 3 ML AMPUL.NEB INH ×4 (01:11→19:10)
[2024-12-23] MEDS: CYANOCOBALAMIN (VITAMIN B-12) 500 MCG TABLET 1000 MCG GT (09:31)
[2024-12-23] MEDS: MULTIVITAMIN 1 TAB TABLET GT (09:32)
[2024-12-23] MEDS: DEXLANSOPRAZOLE 30 MG PO (09:32)
[2024-12-23] MEDS: ATORVASTATIN 40 MG TABLET GT (20:18)
[2024-12-23] MEDS: CARVEDILOL 3.125 MG TABLET GT (20:18)
[2024-12-24] VITALS (11 sets, daily range): BP systolic 96–151; BP diastolic 56–82; PULSE 65–98; RESP 22–29; TEMP 36.2–36.9; O2SAT 95–100
[2024-12-24] MEDS: IPRATROPIUM/ALBUTEROL 3 ML AMPUL.NEB INH ×4 (00:51→18:25)
[2024-12-24] MEDS: DEXLANSOPRAZOLE 30 MG PO (08:06)
[2024-12-24] MEDS: CYANOCOBALAMIN (VITAMIN B-12) 500 MCG TABLET 1000 MCG GT (08:06)
[2024-12-24] MEDS: MULTIVITAMIN 1 TAB TABLET GT (08:06)
[2024-12-24] MEDS: MAGNESIUM HYDROXIDE 30 ML ORAL SUSP ML GT (09:20)
[2024-12-24] MEDS: ACETAMINOPHEN 325 MG TABLET GT (20:05)
[2024-12-24] MEDS: ATORVASTATIN 40 MG TABLET GT (20:05)
[2024-12-24] MEDS: CARVEDILOL 3.125 MG TABLET GT (20:05)
[2024-12-24] MEDS: BISACODYL 10 MG SUPP.RECT PR (23:14)
[2024-12-25] VITALS (8 sets, daily range): BP systolic 108–129; BP diastolic 67–87; PULSE 68–111; RESP 18–25; TEMP 36.4; O2SAT 96–99
[2024-12-25] MEDS: IPRATROPIUM/ALBUTEROL 3 ML AMPUL.NEB INH ×4 (00:15→20:04)
[2024-12-25] MEDS: CYANOCOBALAMIN (VITAMIN B-12) 500 MCG TABLET 1000 MCG GT (08:42)
[2024-12-25] MEDS: CARVEDILOL 3.125 MG TABLET GT ×2 (08:42→21:17)
[2024-12-25] MEDS: DEXLANSOPRAZOLE 30 MG PO (08:43)
[2024-12-25] MEDS: MULTIVITAMIN 1 TAB TABLET GT (08:43)
[2024-12-25] MEDS: ATORVASTATIN 40 MG TABLET GT (21:16)
--- NOTE | 2024-12-25 22:27 | PD.SAPROG ---
Progress Note - SubAcute DIAGNOSIS (1) Chronic respiratory failure, unspecified whether with hypoxia or hypercapnia: Status: Chronic (2) Tracheostomy status: Status: Chronic (3) Chronic atrial fibrillation: Status: Chronic (4) Other sequelae of cerebral infarction: Status: Chronic (5) Persistent vegetative state: Status: Chronic (6) Hyperlipidemia, unspecified: Status: Chronic (7) G tube feedings: Status: Chronic (8) Diabetes type 2, controlled: Status: Chronic SUBJECTIVE Fever:: none GI:: none Shortness of Breath:: none Pain:: none OBJECTIVE Most recent vital signs: Last Vital Signs Temp 97.6 F 12/25/24 12:00 Pulse 74 12/25/24 21:17 Resp 25 H 12/25/24 20:08 BP 124/67 12/25/24 21:17 Pulse Ox 97 12/25/24 20:08 O2 Del Method Mechanical Ventilation 12/24/24 17:17 FiO2 21 12/25/24 20:08 Neurological:: PVS Speech:: none Answers questions:: no Respiratory:: lungs clear Cardiovascular: RRR Abdomen: soft and nontender Extremities:: deformities Tracheostomy:: to blow by Feeding per:: G tube ASSESSMENT & PLAN Assessment: Pt with multiple organ compromise and fully dependent for all care and with poor prognosis. VSS Plan: Current treatment reviewed and continued
[2024-12-26] VITALS (12 sets, daily range): BP systolic 111–134; BP diastolic 62–76; PULSE 60–84; RESP 15–26; TEMP 36.1–36.4; O2SAT 96–100; BMI 23.1
[2024-12-26] MEDS: IPRATROPIUM/ALBUTEROL 3 ML AMPUL.NEB INH ×4 (01:18→18:33)
[2024-12-26] MEDS: CARVEDILOL 3.125 MG TABLET GT ×2 (09:22→20:15)
[2024-12-26] MEDS: MULTIVITAMIN 1 TAB TABLET GT (09:22)
[2024-12-26] MEDS: DEXLANSOPRAZOLE 30 MG PO (09:22)
[2024-12-26] MEDS: CYANOCOBALAMIN (VITAMIN B-12) 500 MCG TABLET 1000 MCG GT (09:22)
[2024-12-26] MEDS: ATORVASTATIN 40 MG TABLET GT (20:15)
[2024-12-27] VITALS (9 sets, daily range): BP systolic 116–133; BP diastolic 63–76; PULSE 54–86; RESP 20–29; TEMP 36.1–36.4; O2SAT 94–99
[2024-12-27] MEDS: IPRATROPIUM/ALBUTEROL 3 ML AMPUL.NEB INH ×4 (01:26→18:09)
[2024-12-27] MEDS: CYANOCOBALAMIN (VITAMIN B-12) 500 MCG TABLET 1000 MCG GT (08:16)
[2024-12-27] MEDS: CARVEDILOL 3.125 MG TABLET GT ×2 (08:16→20:15)
[2024-12-27] MEDS: DEXLANSOPRAZOLE 30 MG PO (08:17)
[2024-12-27] MEDS: MULTIVITAMIN 1 TAB TABLET GT (08:17)
[2024-12-27] MEDS: ATORVASTATIN 40 MG TABLET GT (20:14)
--- NOTE | 2024-12-27 22:42 | PD.SAPROG ---
Progress Note - SubAcute DIAGNOSIS (1) Chronic respiratory failure, unspecified whether with hypoxia or hypercapnia: Status: Chronic (2) Tracheostomy status: Status: Chronic (3) Chronic atrial fibrillation: Status: Chronic (4) Other sequelae of cerebral infarction: Status: Chronic (5) Persistent vegetative state: Status: Chronic (6) Hyperlipidemia, unspecified: Status: Chronic (7) G tube feedings: Status: Chronic (8) Diabetes type 2, controlled: Status: Chronic SUBJECTIVE Fever:: none GI:: none Shortness of Breath:: none Pain:: none OBJECTIVE Most recent vital signs: Last Vital Signs Temp 97.6 F 12/27/24 17:17 Pulse 73 12/27/24 20:15 Resp 21 H 12/27/24 18:09 BP 132/74 H 12/27/24 20:15 Pulse Ox 99 12/27/24 18:09 O2 Del Method Mechanical Ventilation 12/27/24 17:17 FiO2 21 12/27/24 18:09 Neurological:: PVS Speech:: none Answers questions:: no Respiratory:: lungs clear Cardiovascular: RRR Abdomen: soft and nontender Extremities:: deformities Tracheostomy:: to blow by Feeding per:: G tube ASSESSMENT & PLAN Assessment: Pt with multiple organ compromise and fully dependent for all care and with poor prognosis. VSS Plan: Current treatment reviewed and continued
[2024-12-28] VITALS (10 sets, daily range): BP systolic 108–122; BP diastolic 61–72; PULSE 62–96; RESP 20–27; TEMP 36.2–36.6; O2SAT 97–100; BMI 23.1
[2024-12-28] MEDS: IPRATROPIUM/ALBUTEROL 3 ML AMPUL.NEB INH ×4 (00:43→17:05)
[2024-12-28] MEDS: CYANOCOBALAMIN (VITAMIN B-12) 500 MCG TABLET 1000 MCG GT (09:48)
[2024-12-28] MEDS: DEXLANSOPRAZOLE 30 MG PO (09:49)
[2024-12-28] MEDS: MULTIVITAMIN 1 TAB TABLET GT (09:50)
--- NOTE | 2024-12-28 14:51 | PC.SS ---
Resident is laying in bed with head of the bed elevated with call light placed with no signs of distress. Resident is on blow by with trach in place and GT for medication and nutrition. Resident is non verbal unable to make needs known, his decision maker is his son Colt. Resident has no changes in care or condition and will remain in current care and will have all subacute care needs met by staff. This SSD will continue make daily contact and will monitor for changes in mood and behavior.
[2024-12-28] MEDS: ATORVASTATIN 40 MG TABLET GT (20:12)
[2024-12-29] VITALS (9 sets, daily range): BP systolic 97–125; BP diastolic 58–80; PULSE 59–92; RESP 20–27; TEMP 35.8–36.7; O2SAT 97–100
[2024-12-29] MEDS: IPRATROPIUM/ALBUTEROL 3 ML AMPUL.NEB INH ×3 (06:36→19:01)
[2024-12-29] MEDS: CARVEDILOL 3.125 MG TABLET GT ×2 (09:34→21:37)
[2024-12-29] MEDS: MULTIVITAMIN 1 TAB TABLET GT (09:35)
[2024-12-29] MEDS: MAGNESIUM HYDROXIDE 30 ML ORAL SUSP ML GT (09:35)
[2024-12-29] MEDS: DEXLANSOPRAZOLE 30 MG PO (09:35)
[2024-12-29] MEDS: CYANOCOBALAMIN (VITAMIN B-12) 500 MCG TABLET 1000 MCG GT (09:35)
[2024-12-29] MEDS: ATORVASTATIN 40 MG TABLET GT (21:37)
[2024-12-30] VITALS (10 sets, daily range): BP systolic 113–155; BP diastolic 70–89; PULSE 58–90; RESP 18–22; TEMP 36.2–37; O2SAT 97–100
[2024-12-30] MEDS: IPRATROPIUM/ALBUTEROL 3 ML AMPUL.NEB INH ×4 (01:32→18:24)
[2024-12-30] MEDS: CARVEDILOL 3.125 MG TABLET GT ×2 (09:03→21:32)
[2024-12-30] MEDS: CYANOCOBALAMIN (VITAMIN B-12) 500 MCG TABLET 1000 MCG GT (09:03)
[2024-12-30] MEDS: DEXLANSOPRAZOLE 30 MG PO (09:03)
[2024-12-30] MEDS: MULTIVITAMIN 1 TAB TABLET GT (09:03)
[2024-12-30] MEDS: ATORVASTATIN 40 MG TABLET GT (21:32)
[2024-12-30] MEDS: ACETAMINOPHEN 325 MG TABLET GT (21:33)
[2024-12-31] VITALS (10 sets, daily range): BP systolic 100–147; BP diastolic 56–82; PULSE 59–79; RESP 18–24; TEMP 36.2–36.6; O2SAT 98–99
[2024-12-31] MEDS: IPRATROPIUM/ALBUTEROL 3 ML AMPUL.NEB INH ×4 (00:26→18:30)
[2024-12-31] MEDS: CARVEDILOL 3.125 MG TABLET GT ×2 (08:54→21:32)
[2024-12-31] MEDS: MULTIVITAMIN 1 TAB TABLET GT (08:54)
[2024-12-31] MEDS: CYANOCOBALAMIN (VITAMIN B-12) 500 MCG TABLET 1000 MCG GT (08:54)
[2024-12-31] MEDS: DEXLANSOPRAZOLE 30 MG PO (08:54)
--- NOTE | 2024-12-31 13:45 | PD.SAPROG ---
Progress Note - SubAcute DIAGNOSIS (1) Chronic respiratory failure, unspecified whether with hypoxia or hypercapnia: Status: Chronic (2) Tracheostomy status: Status: Chronic (3) Chronic atrial fibrillation: Status: Chronic (4) Other sequelae of cerebral infarction: Status: Chronic (5) Persistent vegetative state: Status: Chronic (6) Hyperlipidemia, unspecified: Status: Chronic (7) G tube feedings: Status: Chronic (8) Diabetes type 2, controlled: Status: Chronic SUBJECTIVE Fever:: none GI:: none Shortness of Breath:: none Pain:: none OBJECTIVE Most recent vital signs: Last Vital Signs Temp 97.0 F 01/04/25 17:21 Pulse 62 01/04/25 20:49 Resp 21 H 01/04/25 17:21 BP 99/58 L 01/04/25 20:49 Pulse Ox 95 01/04/25 17:21 O2 Del Method Mechanical Ventilation 01/03/25 17:31 FiO2 21 01/04/25 21:38 Neurological:: PVS Speech:: none Answers questions:: no Respiratory:: lungs clear Cardiovascular: RRR Abdomen: soft and nontender Extremities:: deformities Tracheostomy:: to blow by Feeding per:: G tube ASSESSMENT & PLAN Assessment: Pt with multiple organ compromise and fully dependent for all care and with poor prognosis. VSS Plan: Current treatment reviewed and continued
[2024-12-31] MEDS: ATORVASTATIN 40 MG TABLET GT (21:32)
[2025-01-01] VITALS (10 sets, daily range): BP systolic 90–128; BP diastolic 58–81; PULSE 57–94; RESP 19–25; TEMP 36.1–36.4; O2SAT 97–100
[2025-01-01] MEDS: IPRATROPIUM/ALBUTEROL 3 ML AMPUL.NEB INH ×4 (00:16→19:08)
[2025-01-01] MEDS: CARVEDILOL 3.125 MG TABLET GT (08:51)
[2025-01-01] MEDS: DEXLANSOPRAZOLE 30 MG PO (08:54)
[2025-01-01] MEDS: MULTIVITAMIN 1 TAB TABLET GT (08:54)
[2025-01-01] MEDS: CYANOCOBALAMIN (VITAMIN B-12) 500 MCG TABLET 1000 MCG GT (08:54)
[2025-01-01] MEDS: MAGNESIUM HYDROXIDE 30 ML ORAL SUSP ML GT (10:45)
[2025-01-01] MEDS: ATORVASTATIN 40 MG TABLET GT (21:08)
[2025-01-01] MEDS: BISACODYL 10 MG SUPP.RECT PR (23:30)
[2025-01-02] VITALS (10 sets, daily range): BP systolic 110–152; BP diastolic 58–77; PULSE 57–94; RESP 19–24; TEMP 36–36.6; O2SAT 95–99
[2025-01-02] MEDS: IPRATROPIUM/ALBUTEROL 3 ML AMPUL.NEB INH ×4 (00:24→17:39)
[2025-01-02] MEDS: CARVEDILOL 3.125 MG TABLET GT ×2 (08:15→21:31)
[2025-01-02] MEDS: CYANOCOBALAMIN (VITAMIN B-12) 500 MCG TABLET 1000 MCG GT (08:15)
[2025-01-02] MEDS: MULTIVITAMIN 1 TAB TABLET GT (08:15)
[2025-01-02] MEDS: DEXLANSOPRAZOLE 30 MG PO (08:15)
[2025-01-02] MEDS: ATORVASTATIN 40 MG TABLET GT (21:31)
[2025-01-03] VITALS (10 sets, daily range): BP systolic 86–130; BP diastolic 48–82; PULSE 8–91; RESP 17–129; TEMP 35.9–36.2; O2SAT 85–99
[2025-01-03] MEDS: IPRATROPIUM/ALBUTEROL 3 ML AMPUL.NEB INH (01:15)
[2025-01-03] MEDS: CARVEDILOL 3.125 MG TABLET GT ×2 (08:08→21:01)
[2025-01-03] MEDS: DEXLANSOPRAZOLE 30 MG PO (08:08)
[2025-01-03] MEDS: MULTIVITAMIN 1 TAB TABLET GT (08:09)
[2025-01-03] MEDS: CYANOCOBALAMIN (VITAMIN B-12) 500 MCG TABLET 1000 MCG GT (08:09)
[2025-01-03] MEDS: ATORVASTATIN 40 MG TABLET GT (21:01)
[2025-01-04] VITALS (11 sets, daily range): BP systolic 99–140; BP diastolic 58–91; PULSE 54–103; RESP 18–27; TEMP 36–36.2; O2SAT 94–100; BMI 23.0
[2025-01-04] MEDS: CYANOCOBALAMIN (VITAMIN B-12) 500 MCG TABLET 1000 MCG GT (08:49)
[2025-01-04] MEDS: CARVEDILOL 3.125 MG TABLET GT (08:49)
[2025-01-04] MEDS: DEXLANSOPRAZOLE 30 MG PO (08:50)
[2025-01-04] MEDS: MULTIVITAMIN 1 TAB TABLET GT (08:50)
[2025-01-04] MEDS: ATORVASTATIN 40 MG TABLET GT (20:48)
[2025-01-05] VITALS (9 sets, daily range): BP systolic 109–156; BP diastolic 61–79; PULSE 62–87; RESP 17–20; TEMP 35.7–36.6; O2SAT 97–100
[2025-01-05] MEDS: MULTIVITAMIN 1 TAB TABLET GT (08:49)
[2025-01-05] MEDS: DEXLANSOPRAZOLE 30 MG PO (08:49)
[2025-01-05] MEDS: CYANOCOBALAMIN (VITAMIN B-12) 500 MCG TABLET 1000 MCG GT (08:49)
[2025-01-05] MEDS: CARVEDILOL 3.125 MG TABLET GT ×2 (08:49→20:46)
--- NOTE | 2025-01-05 14:34 | PC.SS ---
Room visit: Resident is laying in bed with head of the bed elevated with call light properly placed with no signs of distress. Resident remains on blow by with trach in place and GT for medication and nutrition. Resident is unable to make needs known his decision maker is his son. Resident will remain in current care and will continue to have all subacute care needs met by staff.
--- NOTE | 2025-01-05 19:08 | PC.NURSE ---
Bridgette goetz for 01/04/25. Updated Dr Ramires about resident swollen penis and noted to have redness. On barron catheter. Continue to monitor as per Dr Ramires, if gets worse, refer to Dr Peterson for possible circumcision and continue the triple antibiotic ointment as per .
[2025-01-05] MEDS: ATORVASTATIN 40 MG TABLET GT (20:46)
[2025-01-06] VITALS (11 sets, daily range): BP systolic 100–133; BP diastolic 53–80; PULSE 50–88; RESP 17–34; TEMP 36–36.4; O2SAT 94–99
[2025-01-06] MEDS: IPRATROPIUM/ALBUTEROL 3 ML AMPUL.NEB INH ×4 (00:48→18:10)
[2025-01-06] MEDS: MULTIVITAMIN 1 TAB TABLET GT (08:35)
[2025-01-06] MEDS: CYANOCOBALAMIN (VITAMIN B-12) 500 MCG TABLET 1000 MCG GT (08:35)
[2025-01-06] MEDS: DEXLANSOPRAZOLE 30 MG PO (08:35)
[2025-01-06] MEDS: ATORVASTATIN 40 MG TABLET GT (20:15)
[2025-01-06] MEDS: CARVEDILOL 3.125 MG TABLET GT (20:17)
[2025-01-07] VITALS (9 sets, daily range): BP systolic 103–150; BP diastolic 68–75; PULSE 42–76; RESP 12–21; TEMP 35.9–36.1; O2SAT 93–100
[2025-01-07] MEDS: IPRATROPIUM/ALBUTEROL 3 ML AMPUL.NEB INH ×4 (00:08→18:38)
[2025-01-07] MEDS: MULTIVITAMIN 1 TAB TABLET GT (08:15)
[2025-01-07] MEDS: DEXLANSOPRAZOLE 30 MG PO (08:15)
[2025-01-07] MEDS: CYANOCOBALAMIN (VITAMIN B-12) 500 MCG TABLET 1000 MCG GT (08:15)
[2025-01-07] MEDS: ATORVASTATIN 40 MG TABLET GT (20:47)
[2025-01-07] MEDS: MAGNESIUM HYDROXIDE 30 ML ORAL SUSP ML GT (20:48)
[2025-01-08] VITALS (11 sets, daily range): BP systolic 110–136; BP diastolic 58–82; PULSE 56–87; RESP 12–20; TEMP 36.1–36.6; O2SAT 97–99
[2025-01-08] MEDS: IPRATROPIUM/ALBUTEROL 3 ML AMPUL.NEB INH ×4 (00:07→17:50)
[2025-01-08] MEDS: CARVEDILOL 3.125 MG TABLET GT ×2 (08:16→21:49)
[2025-01-08] MEDS: MULTIVITAMIN 1 TAB TABLET GT (08:17)
[2025-01-08] MEDS: DEXLANSOPRAZOLE 30 MG PO (08:17)
[2025-01-08] MEDS: CYANOCOBALAMIN (VITAMIN B-12) 500 MCG TABLET 1000 MCG GT (08:17)
[2025-01-08] MEDS: BISACODYL 10 MG SUPP.RECT PR (14:00)
--- NOTE | 2025-01-08 20:54 | PD.SAPROG ---
Progress Note - SubAcute DIAGNOSIS (1) Chronic respiratory failure, unspecified whether with hypoxia or hypercapnia: Status: Chronic (2) Tracheostomy status: Status: Chronic (3) Chronic atrial fibrillation: Status: Chronic (4) Other sequelae of cerebral infarction: Status: Chronic (5) Persistent vegetative state: Status: Chronic (6) Hyperlipidemia, unspecified: Status: Chronic (7) G tube feedings: Status: Chronic (8) Diabetes type 2, controlled: Status: Chronic SUBJECTIVE Fever:: none GI:: none Shortness of Breath:: none Pain:: none OBJECTIVE Most recent vital signs: Last Vital Signs Temp 97.2 F 01/08/25 18:00 Pulse 71 01/08/25 18:00 Resp 16 01/08/25 18:00 BP 110/58 L 01/08/25 18:00 Pulse Ox 98 01/08/25 18:00 O2 Del Method Mechanical Ventilation 01/08/25 18:00 FiO2 21 01/08/25 15:59 Neurological:: PVS Speech:: none Answers questions:: no Respiratory:: lungs clear Cardiovascular: RRR Abdomen: soft and nontender Extremities:: deformities Tracheostomy:: to blow by Feeding per:: G tube ASSESSMENT & PLAN Assessment: Pt with multiple organ compromise and fully dependent for all care and with poor prognosis. VSS Plan: Current treatment reviewed and continued
[2025-01-08] MEDS: ATORVASTATIN 40 MG TABLET GT (21:48)
[2025-01-08] MEDS: SODIUM PHOSPHATE,MONO-DIBASIC 133 ML ENEMA PR (23:50)
[2025-01-09] VITALS (11 sets, daily range): BP systolic 111–142; BP diastolic 63–87; PULSE 62–86; RESP 12–23; TEMP 36.1–36.4; O2SAT 97–100
[2025-01-09] MEDS: IPRATROPIUM/ALBUTEROL 3 ML AMPUL.NEB INH ×4 (00:40→17:50)
[2025-01-09] MEDS: CARVEDILOL 3.125 MG TABLET GT ×2 (09:33→21:55)
[2025-01-09] MEDS: MAGNESIUM HYDROXIDE 30 ML ORAL SUSP ML GT (09:34)
[2025-01-09] MEDS: CYANOCOBALAMIN (VITAMIN B-12) 500 MCG TABLET 1000 MCG GT (09:34)
[2025-01-09] MEDS: DEXLANSOPRAZOLE 30 MG PO (09:34)
[2025-01-09] MEDS: MULTIVITAMIN 1 TAB TABLET GT (09:34)
--- NOTE | 2025-01-09 16:43 | PC.NURSE ---
During IDT meeting the team talks about resident barron and the swelling on resident penis, and they agreed to refer resident with urologist to check if resident needs the barron.
[2025-01-09] MEDS: ATORVASTATIN 40 MG TABLET GT (21:55)
[2025-01-09] MEDS: BISACODYL 10 MG SUPP.RECT PR (21:56)
[2025-01-10] VITALS (10 sets, daily range): BP systolic 110–151; BP diastolic 66–83; PULSE 62–82; RESP 16–25; TEMP 36.2–36.8; O2SAT 97–100
[2025-01-10] MEDS: IPRATROPIUM/ALBUTEROL 3 ML AMPUL.NEB INH ×4 (00:40→18:26)
[2025-01-10] MEDS: CARVEDILOL 3.125 MG TABLET GT ×2 (08:27→20:39)
[2025-01-10] MEDS: MULTIVITAMIN 1 TAB TABLET GT (08:28)
[2025-01-10] MEDS: CYANOCOBALAMIN (VITAMIN B-12) 500 MCG TABLET 1000 MCG GT (08:28)
[2025-01-10] MEDS: DEXLANSOPRAZOLE 30 MG PO (08:28)
--- NOTE | 2025-01-10 15:16 | PC.SS ---
Room visit: Resident is laying in bed with head of the bed elevated with call light properly placed with no signs of distress. Resident will remain in current care as there are no changes in care or condition, he remains on vent with trach in place and GT for medication and nutrition. Resident will continue to have all subacute care needs met by staff. This SSD will continue to make daily contact with resident and will offer support as she will accept.
[2025-01-10] MEDS: ATORVASTATIN 40 MG TABLET GT (20:36)
[2025-01-11] VITALS (12 sets, daily range): BP systolic 105–145; BP diastolic 66–81; PULSE 51–98; RESP 18–23; TEMP 36.1–36.8; O2SAT 95–100
[2025-01-11] MEDS: IPRATROPIUM/ALBUTEROL 3 ML AMPUL.NEB INH ×4 (00:19→18:22)
[2025-01-11] MEDS: CYANOCOBALAMIN (VITAMIN B-12) 500 MCG TABLET 1000 MCG GT (09:03)
[2025-01-11] MEDS: CARVEDILOL 3.125 MG TABLET GT ×2 (09:03→21:14)
[2025-01-11] MEDS: MULTIVITAMIN 1 TAB TABLET GT (09:04)
[2025-01-11] MEDS: DEXLANSOPRAZOLE 30 MG PO (09:04)
--- NOTE | 2025-01-11 18:45 | PC.NURSE ---
Dr. Og at bedside and retracted penis due to vasoconstriction during barron insertion, he gave orders to remove barron in Wednesday01/16/25 and if no void in 8 hours to reinsert barron
[2025-01-11] MEDS: ATORVASTATIN 40 MG TABLET GT (21:14)
[2025-01-12] VITALS (10 sets, daily range): BP systolic 98–148; BP diastolic 59–85; PULSE 53–90; RESP 17–27; TEMP 36.1–36.3; O2SAT 96–99
[2025-01-12] MEDS: IPRATROPIUM/ALBUTEROL 3 ML AMPUL.NEB INH ×4 (01:39→19:18)
[2025-01-12] MEDS: CYANOCOBALAMIN (VITAMIN B-12) 500 MCG TABLET 1000 MCG GT (08:04)
[2025-01-12] MEDS: MULTIVITAMIN 1 TAB TABLET GT (08:04)
[2025-01-12] MEDS: DEXLANSOPRAZOLE 30 MG PO (08:04)
--- NOTE | 2025-01-12 11:33 | ESCONSULT_ITS ---
RE: LIZZIE PEÑA : 1940 DATE OF CONSULTATION: 01/11/2025 This is an 84-year-old gentleman seen by me in subacute care at the hospital. No history from the patient is available. The diagnosis on this patient is: 1. J96.11, chronic respiratory failure. 2. Z93.0, status post tracheostomy. 3. I48.20, chronic atrial fibrillation. 4. I69.398, other sequelae of cerebral infarction. 5. R40.3, persistent vegetative status. 6. E78.5, hyperlipidemia. 7. Z93.1, gastrostomy status. 8. E11.9, diabetes mellitus type 2. HISTORY OF PRESENT ILLNESS: This is an 84-year-old gentleman. He is in a vegetative state. He is in the subacute nursing care at the hospital. The patient had placement of Gibson catheter subsequently. He had ulceration of the foreskin. My consultation for circumcision. On examination, I found the patient has a phimosis and I reduced the phimosis. The patient does not need circumcision. He can have removal of the Gibsno catheter in 3 days' time. DT: 13:11:31 TT: 16:14:00 Ref: [id number] - TID: [id number]
--- NOTE | 2025-01-12 14:35 | PD.SAPROG ---
Progress Note - SubAcute DIAGNOSIS (1) Chronic respiratory failure, unspecified whether with hypoxia or hypercapnia: Status: Chronic (2) Tracheostomy status: Status: Chronic (3) Chronic atrial fibrillation: Status: Chronic (4) Other sequelae of cerebral infarction: Status: Chronic (5) Persistent vegetative state: Status: Chronic (6) Hyperlipidemia, unspecified: Status: Chronic (7) G tube feedings: Status: Chronic (8) Diabetes type 2, controlled: Status: Chronic SUBJECTIVE Fever:: none GI:: none Shortness of Breath:: none Pain:: none OBJECTIVE Most recent vital signs: Last Vital Signs Temp 97.1 F 01/14/25 06:00 Pulse 53 L 01/14/25 12:48 Resp 1 L 01/14/25 12:48 BP 121/67 01/14/25 08:28 Pulse Ox 98 01/14/25 12:48 O2 Del Method Blow-by 01/11/25 18:00 FiO2 21 01/14/25 12:48 Neurological:: PVS Speech:: none Answers questions:: no Respiratory:: lungs clear Cardiovascular: RRR Abdomen: soft and nontender Extremities:: deformities Tracheostomy:: to blow by Feeding per:: G tube ASSESSMENT & PLAN Assessment: Pt with multiple organ compromise and fully dependent for all care and with poor prognosis. VSS Plan: Current treatment reviewed and continued
[2025-01-12] MEDS: ATORVASTATIN 40 MG TABLET GT (21:15)
[2025-01-12] MEDS: CARVEDILOL 3.125 MG TABLET GT (21:15)
[2025-01-13] VITALS (10 sets, daily range): BP systolic 97–128; BP diastolic 54–67; PULSE 58–87; RESP 16–21; TEMP 35.8–36.2; O2SAT 95–99
[2025-01-13] MEDS: IPRATROPIUM/ALBUTEROL 3 ML AMPUL.NEB INH ×4 (00:29→18:57)
[2025-01-13] MEDS: DEXLANSOPRAZOLE 30 MG PO (09:06)
[2025-01-13] MEDS: CYANOCOBALAMIN (VITAMIN B-12) 500 MCG TABLET 1000 MCG GT (09:06)
[2025-01-13] MEDS: CARVEDILOL 3.125 MG TABLET GT ×2 (09:06→20:36)
[2025-01-13] MEDS: MULTIVITAMIN 1 TAB TABLET GT (09:06)
[2025-01-13] MEDS: ATORVASTATIN 40 MG TABLET GT (20:36)
[2025-01-14] VITALS (10 sets, daily range): BP systolic 95–131; BP diastolic 53–67; PULSE 49–75; RESP 17–20; TEMP 36.1–36.4; O2SAT 96–100
[2025-01-14] MEDS: IPRATROPIUM/ALBUTEROL 3 ML AMPUL.NEB INH ×4 (00:51→19:15)
[2025-01-14] MEDS: CARVEDILOL 3.125 MG TABLET GT (08:28)
[2025-01-14] MEDS: CYANOCOBALAMIN (VITAMIN B-12) 500 MCG TABLET 1000 MCG GT (08:28)
[2025-01-14] MEDS: MULTIVITAMIN 1 TAB TABLET GT (08:28)
[2025-01-14] MEDS: DEXLANSOPRAZOLE 30 MG PO (08:28)
[2025-01-14] MEDS: MAGNESIUM HYDROXIDE 30 ML ORAL SUSP ML GT (21:25)
[2025-01-14] MEDS: ATORVASTATIN 40 MG TABLET GT (21:25)
[2025-01-15] VITALS (11 sets, daily range): BP systolic 102–129; BP diastolic 60–78; PULSE 43–73; RESP 15–22; TEMP 36–36.5; O2SAT 97–99
[2025-01-15] MEDS: IPRATROPIUM/ALBUTEROL 3 ML AMPUL.NEB INH ×4 (01:46→18:38)
[2025-01-15] MEDS: CARVEDILOL 3.125 MG TABLET GT (08:10)
[2025-01-15] MEDS: DEXLANSOPRAZOLE 30 MG PO (08:10)
[2025-01-15] MEDS: MULTIVITAMIN 1 TAB TABLET GT (08:10)
[2025-01-15] MEDS: CYANOCOBALAMIN (VITAMIN B-12) 500 MCG TABLET 1000 MCG GT (08:10)
[2025-01-15] MEDS: ACETAMINOPHEN 325 MG TABLET GT (11:21)
--- NOTE | 2025-01-15 15:10 | PC.SS ---
Resident seen by bonbon cream warmer/ Dr. Smith had routine toe nail trim with no new orders or recommendations. Resident will continue current care.
[2025-01-15] MEDS: ATORVASTATIN 40 MG TABLET GT (20:48)
[2025-01-16] VITALS (9 sets, daily range): BP systolic 92–131; BP diastolic 50–76; PULSE 54–70; RESP 18–27; TEMP 36.1–36.3; O2SAT 97–99; BMI 23.1
[2025-01-16] MEDS: IPRATROPIUM/ALBUTEROL 3 ML AMPUL.NEB INH ×4 (01:09→19:37)
[2025-01-16] MEDS: DEXLANSOPRAZOLE 30 MG PO (08:08)
[2025-01-16] MEDS: CYANOCOBALAMIN (VITAMIN B-12) 500 MCG TABLET 1000 MCG GT (08:08)
[2025-01-16] MEDS: MULTIVITAMIN 1 TAB TABLET GT (08:08)
--- NOTE | 2025-01-16 14:00 | PD.SAPROG ---
Progress Note - SubAcute DIAGNOSIS (1) Chronic respiratory failure, unspecified whether with hypoxia or hypercapnia: Status: Chronic (2) Tracheostomy status: Status: Chronic (3) Chronic atrial fibrillation: Status: Chronic (4) Other sequelae of cerebral infarction: Status: Chronic (5) Persistent vegetative state: Status: Chronic (6) Hyperlipidemia, unspecified: Status: Chronic (7) G tube feedings: Status: Chronic (8) Diabetes type 2, controlled: Status: Chronic SUBJECTIVE Fever:: none GI:: none Shortness of Breath:: none Pain:: none OBJECTIVE Most recent vital signs: Last Vital Signs Temp 97.2 F 01/21/25 18:00 Pulse 70 01/21/25 20:14 Resp 19 01/21/25 19:02 BP 135/82 H 01/21/25 20:14 Pulse Ox 98 01/21/25 19:02 O2 Del Method Mechanical Ventilation 01/21/25 18:00 FiO2 21 01/21/25 19:02 Neurological:: PVS Speech:: none Answers questions:: no Respiratory:: lungs clear Cardiovascular: RRR Abdomen: soft and nontender Extremities:: deformities Tracheostomy:: to blow by Feeding per:: G tube ASSESSMENT & PLAN Assessment: Pt with multiple organ compromise and fully dependent for all care and with poor prognosis. VSS Plan: Current treatment reviewed and continued
[2025-01-16] MEDS: ATORVASTATIN 40 MG TABLET GT (21:00)
[2025-01-16] MEDS: CARVEDILOL 3.125 MG TABLET GT (21:01)
[2025-01-17] VITALS (10 sets, daily range): BP systolic 102–138; BP diastolic 59–77; PULSE 54–71; RESP 17–23; TEMP 36.1–36.7; O2SAT 97–99
[2025-01-17] MEDS: IPRATROPIUM/ALBUTEROL 3 ML AMPUL.NEB INH ×4 (00:44→20:03)
[2025-01-17] MEDS: CARVEDILOL 3.125 MG TABLET GT ×2 (08:53→21:49)
[2025-01-17] MEDS: MULTIVITAMIN 1 TAB TABLET GT (08:54)
[2025-01-17] MEDS: CYANOCOBALAMIN (VITAMIN B-12) 500 MCG TABLET 1000 MCG GT (08:54)
[2025-01-17] MEDS: DEXLANSOPRAZOLE 30 MG PO (08:54)
[2025-01-17] MEDS: ATORVASTATIN 40 MG TABLET GT (21:48)
[2025-01-18] VITALS (10 sets, daily range): BP systolic 93–123; BP diastolic 54–68; PULSE 45–77; RESP 15–20; TEMP 36–36.3; O2SAT 95–99
[2025-01-18] MEDS: IPRATROPIUM/ALBUTEROL 3 ML AMPUL.NEB INH ×4 (02:37→18:59)
[2025-01-18] MEDS: MULTIVITAMIN 1 TAB TABLET GT (09:21)
[2025-01-18] MEDS: DEXLANSOPRAZOLE 30 MG PO (09:21)
[2025-01-18] MEDS: CYANOCOBALAMIN (VITAMIN B-12) 500 MCG TABLET 1000 MCG GT (09:21)
[2025-01-18] MEDS: ATORVASTATIN 40 MG TABLET GT (21:50)
[2025-01-19] VITALS (10 sets, daily range): BP systolic 97–109; BP diastolic 52–76; PULSE 45–88; RESP 16–19; TEMP 36–36.2; O2SAT 95–99
[2025-01-19] MEDS: IPRATROPIUM/ALBUTEROL 3 ML AMPUL.NEB INH ×4 (00:35→17:47)
[2025-01-19] MEDS: CYANOCOBALAMIN (VITAMIN B-12) 500 MCG TABLET 1000 MCG GT (09:16)
[2025-01-19] MEDS: DEXLANSOPRAZOLE 30 MG PO (09:16)
[2025-01-19] MEDS: MULTIVITAMIN 1 TAB TABLET GT (09:17)
[2025-01-19] MEDS: ATORVASTATIN 40 MG TABLET GT (20:56)
[2025-01-20] VITALS (10 sets, daily range): BP systolic 107–137; BP diastolic 57–86; PULSE 49–85; RESP 17–20; TEMP 36.1–36.3; O2SAT 95–99
[2025-01-20] MEDS: IPRATROPIUM/ALBUTEROL 3 ML AMPUL.NEB INH ×4 (00:35→19:21)
[2025-01-20] MEDS: CYANOCOBALAMIN (VITAMIN B-12) 500 MCG TABLET 1000 MCG GT (09:34)
[2025-01-20] MEDS: CARVEDILOL 3.125 MG TABLET GT (09:34)
[2025-01-20] MEDS: MULTIVITAMIN 1 TAB TABLET GT (09:35)
[2025-01-20] MEDS: DEXLANSOPRAZOLE 30 MG PO (09:35)
[2025-01-20] MEDS: ACETAMINOPHEN 325 MG TABLET GT (14:15)
[2025-01-20] MEDS: ATORVASTATIN 40 MG TABLET GT (20:08)
--- NOTE | 2025-01-20 23:28 | PD.SAPROG ---
Progress Note - SubAcute DIAGNOSIS (1) Chronic respiratory failure, unspecified whether with hypoxia or hypercapnia: Status: Chronic (2) Tracheostomy status: Status: Chronic (3) Chronic atrial fibrillation: Status: Chronic (4) Other sequelae of cerebral infarction: Status: Chronic (5) Persistent vegetative state: Status: Chronic (6) Hyperlipidemia, unspecified: Status: Chronic (7) G tube feedings: Status: Chronic (8) Diabetes type 2, controlled: Status: Chronic SUBJECTIVE Fever:: none GI:: none Shortness of Breath:: none Pain:: none OBJECTIVE Most recent vital signs: Last Vital Signs Temp 96.9 F 01/20/25 17:26 Pulse 49 L 01/20/25 20:10 Resp 20 01/20/25 19:21 BP 107/57 L 01/20/25 20:10 Pulse Ox 97 01/20/25 19:21 O2 Del Method Mechanical Ventilation 01/20/25 17:26 FiO2 21 01/20/25 19:21 Neurological:: PVS Speech:: none Answers questions:: no Respiratory:: lungs clear Cardiovascular: RRR Abdomen: soft and nontender Extremities:: deformities Tracheostomy:: to blow by Feeding per:: G tube ASSESSMENT & PLAN Assessment: Pt with multiple organ compromise and fully dependent for all care and with poor prognosis. VSS Plan: Current treatment reviewed and continued
[2025-01-21] VITALS (11 sets, daily range): BP systolic 97–136; BP diastolic 57–88; PULSE 49–82; RESP 17–21; TEMP 36.2–36.3; O2SAT 92–98
[2025-01-21] MEDS: IPRATROPIUM/ALBUTEROL 3 ML AMPUL.NEB INH ×3 (01:17→12:18)
[2025-01-21] MEDS: CYANOCOBALAMIN (VITAMIN B-12) 500 MCG TABLET 1000 MCG GT (08:40)
[2025-01-21] MEDS: DEXLANSOPRAZOLE 30 MG PO (08:40)
[2025-01-21] MEDS: MULTIVITAMIN 1 TAB TABLET GT (08:40)
[2025-01-21] MEDS: ATORVASTATIN 40 MG TABLET GT (20:14)
[2025-01-21] MEDS: CARVEDILOL 3.125 MG TABLET GT (20:14)
[2025-01-22] VITALS (11 sets, daily range): BP systolic 111–157; BP diastolic 65–92; PULSE 20–78; RESP 18–21; TEMP 35.7–36.2; O2SAT 98–99
[2025-01-22] MEDS: IPRATROPIUM/ALBUTEROL 3 ML AMPUL.NEB INH ×3 (07:14→19:16)
[2025-01-22] MEDS: CARVEDILOL 3.125 MG TABLET GT ×2 (08:13→21:54)
[2025-01-22] MEDS: CYANOCOBALAMIN (VITAMIN B-12) 500 MCG TABLET 1000 MCG GT (08:14)
[2025-01-22] MEDS: MULTIVITAMIN 1 TAB TABLET GT (08:14)
[2025-01-22] MEDS: DEXLANSOPRAZOLE 30 MG PO (08:14)
[2025-01-22] MEDS: MAGNESIUM HYDROXIDE 30 ML ORAL SUSP ML GT (21:54)
[2025-01-22] MEDS: ATORVASTATIN 40 MG TABLET GT (21:55)
[2025-01-23] VITALS (10 sets, daily range): BP systolic 128–146; BP diastolic 64–86; PULSE 17–91; RESP 16–19; TEMP 36.1–36.3; O2SAT 98–99
[2025-01-23] MEDS: IPRATROPIUM/ALBUTEROL 3 ML AMPUL.NEB INH ×4 (01:26→18:15)
[2025-01-23] MEDS: CYANOCOBALAMIN (VITAMIN B-12) 500 MCG TABLET 1000 MCG GT (09:00)
[2025-01-23] MEDS: MULTIVITAMIN 1 TAB TABLET GT (09:00)
[2025-01-23] MEDS: ACETAMINOPHEN 325 MG TABLET GT (09:00)
[2025-01-23] MEDS: DEXLANSOPRAZOLE 30 MG PO (09:00)
[2025-01-23] MEDS: CARVEDILOL 3.125 MG TABLET GT ×2 (09:00→20:17)
[2025-01-23] MEDS: ATORVASTATIN 40 MG TABLET GT (20:16)
[2025-01-24] VITALS (10 sets, daily range): BP systolic 102–126; BP diastolic 53–73; PULSE 53–80; RESP 16–21; TEMP 36–36.4; O2SAT 95–99
[2025-01-24] MEDS: IPRATROPIUM/ALBUTEROL 3 ML AMPUL.NEB INH ×4 (00:31→18:32)
[2025-01-24] MEDS: MULTIVITAMIN 1 TAB TABLET GT (09:24)
[2025-01-24] MEDS: CYANOCOBALAMIN (VITAMIN B-12) 500 MCG TABLET 1000 MCG GT (09:24)
[2025-01-24] MEDS: DEXLANSOPRAZOLE 30 MG PO (09:24)
[2025-01-24] MEDS: ATORVASTATIN 40 MG TABLET GT (20:03)
--- NOTE | 2025-01-24 23:09 | PD.SAPROG ---
Progress Note - SubAcute DIAGNOSIS (1) Chronic respiratory failure, unspecified whether with hypoxia or hypercapnia: Status: Chronic (2) Tracheostomy status: Status: Chronic (3) Chronic atrial fibrillation: Status: Chronic (4) Other sequelae of cerebral infarction: Status: Chronic (5) Persistent vegetative state: Status: Chronic (6) Hyperlipidemia, unspecified: Status: Chronic (7) G tube feedings: Status: Chronic (8) Diabetes type 2, controlled: Status: Chronic SUBJECTIVE Fever:: none GI:: none Shortness of Breath:: none Pain:: none OBJECTIVE Most recent vital signs: Last Vital Signs Temp 97.3 F 01/24/25 17:35 Pulse 69 01/24/25 20:04 Resp 18 01/24/25 18:32 BP 109/64 01/24/25 20:04 Pulse Ox 99 01/24/25 18:32 O2 Del Method Mechanical Ventilation 01/23/25 06:00 FiO2 21 01/24/25 18:32 Neurological:: PVS Speech:: none Answers questions:: no Respiratory:: lungs clear Cardiovascular: RRR Abdomen: soft and nontender Extremities:: deformities Tracheostomy:: to blow by Feeding per:: G tube ASSESSMENT & PLAN Assessment: Pt with multiple organ compromise and fully dependent for all care and with poor prognosis. VSS Plan: Current treatment reviewed and continued
[2025-01-25] VITALS (11 sets, daily range): BP systolic 98–130; BP diastolic 60–75; PULSE 50–96; RESP 20–24; TEMP 35.8–36.5; O2SAT 96–100
[2025-01-25] MEDS: IPRATROPIUM/ALBUTEROL 3 ML AMPUL.NEB INH ×4 (00:41→18:48)
[2025-01-25] MEDS: DEXLANSOPRAZOLE 30 MG PO (08:42)
[2025-01-25] MEDS: CYANOCOBALAMIN (VITAMIN B-12) 500 MCG TABLET 1000 MCG GT (08:42)
[2025-01-25] MEDS: CARVEDILOL 3.125 MG TABLET GT ×2 (08:42→20:05)
[2025-01-25] MEDS: MULTIVITAMIN 1 TAB TABLET GT (08:42)
[2025-01-25] MEDS: ACETAMINOPHEN 325 MG TABLET GT (08:43)
[2025-01-25] MEDS: ATORVASTATIN 40 MG TABLET GT (20:05)
[2025-01-26] VITALS (10 sets, daily range): BP systolic 117–133; BP diastolic 62–78; PULSE 55–92; RESP 18–28; TEMP 36–36.2; O2SAT 96–100
[2025-01-26] MEDS: IPRATROPIUM/ALBUTEROL 3 ML AMPUL.NEB INH ×3 (00:43→18:00)
[2025-01-26] MEDS: CYANOCOBALAMIN (VITAMIN B-12) 500 MCG TABLET 1000 MCG GT (08:55)
[2025-01-26] MEDS: DEXLANSOPRAZOLE 30 MG PO (08:56)
[2025-01-26] MEDS: MULTIVITAMIN 1 TAB TABLET GT (08:56)
--- NOTE | 2025-01-26 13:46 | PD.SAPROG ---
Progress Note - SubAcute DIAGNOSIS (1) Chronic respiratory failure, unspecified whether with hypoxia or hypercapnia: Status: Chronic (2) Tracheostomy status: Status: Chronic (3) Chronic atrial fibrillation: Status: Chronic (4) Other sequelae of cerebral infarction: Status: Chronic (5) Persistent vegetative state: Status: Chronic (6) Hyperlipidemia, unspecified: Status: Chronic (7) G tube feedings: Status: Chronic (8) Diabetes type 2, controlled: Status: Chronic SUBJECTIVE Fever:: none GI:: none Shortness of Breath:: none Pain:: none OBJECTIVE Most recent vital signs: Last Vital Signs Temp 97.1 F 01/26/25 12:00 Pulse 76 01/26/25 12:00 Resp 21 H 01/26/25 12:00 BP 124/78 01/26/25 12:00 Pulse Ox 100 01/26/25 06:00 O2 Del Method Mechanical Ventilation 01/26/25 06:00 FiO2 21 01/26/25 01:38 Neurological:: PVS Speech:: none Answers questions:: no Respiratory:: lungs clear Cardiovascular: RRR Abdomen: soft and nontender Extremities:: deformities Tracheostomy:: to blow by Feeding per:: G tube ASSESSMENT & PLAN Assessment: Pt with multiple organ compromise and fully dependent for all care and with poor prognosis. VSS Tolerating tube feeding Plan: Current treatment reviewed and continued
[2025-01-26] MEDS: ATORVASTATIN 40 MG TABLET GT (21:26)
[2025-01-26] MEDS: CARVEDILOL 3.125 MG TABLET GT (21:27)
[2025-01-27] VITALS (10 sets, daily range): BP systolic 90–111; BP diastolic 55–67; PULSE 51–82; RESP 16–21; TEMP 36.2–36.7; O2SAT 97–99
[2025-01-27] MEDS: IPRATROPIUM/ALBUTEROL 3 ML AMPUL.NEB INH ×4 (00:05→18:35)
[2025-01-27] MEDS: CYANOCOBALAMIN (VITAMIN B-12) 500 MCG TABLET 1000 MCG GT (09:12)
[2025-01-27] MEDS: MULTIVITAMIN 1 TAB TABLET GT (09:13)
[2025-01-27] MEDS: DEXLANSOPRAZOLE 30 MG PO (09:13)
[2025-01-27] MEDS: ATORVASTATIN 40 MG TABLET GT (21:28)
[2025-01-28] VITALS (10 sets, daily range): BP systolic 105–138; BP diastolic 61–81; PULSE 55–88; RESP 16–22; TEMP 36.1–36.8; O2SAT 98–99
[2025-01-28] MEDS: IPRATROPIUM/ALBUTEROL 3 ML AMPUL.NEB INH ×4 (00:05→18:54)
[2025-01-28] MEDS: CARVEDILOL 3.125 MG TABLET GT (08:58)
[2025-01-28] MEDS: DEXLANSOPRAZOLE 30 MG PO (08:59)
[2025-01-28] MEDS: CYANOCOBALAMIN (VITAMIN B-12) 500 MCG TABLET 1000 MCG GT (08:59)
[2025-01-28] MEDS: MULTIVITAMIN 1 TAB TABLET GT (08:59)
[2025-01-28] MEDS: ATORVASTATIN 40 MG TABLET GT (20:58)
[2025-01-29] VITALS (8 sets, daily range): BP systolic 118–144; BP diastolic 61–69; PULSE 59–85; RESP 13–19; TEMP 36.7; O2SAT 99
[2025-01-29] MEDS: IPRATROPIUM/ALBUTEROL 3 ML AMPUL.NEB INH ×4 (00:43→19:34)
[2025-01-29] MEDS: CARVEDILOL 3.125 MG TABLET GT ×2 (09:03→20:43)
[2025-01-29] MEDS: DEXLANSOPRAZOLE 30 MG PO (09:04)
[2025-01-29] MEDS: MULTIVITAMIN 1 TAB TABLET GT (09:04)
[2025-01-29] MEDS: CYANOCOBALAMIN (VITAMIN B-12) 500 MCG TABLET 1000 MCG GT (09:04)
[2025-01-29] MEDS: ATORVASTATIN 40 MG TABLET GT (20:43)
[2025-01-30] VITALS (10 sets, daily range): BP systolic 97–116; BP diastolic 58–67; PULSE 49–75; RESP 14–22; TEMP 36.1–36.6; O2SAT 97–99; BMI 23.5
[2025-01-30] MEDS: IPRATROPIUM/ALBUTEROL 3 ML AMPUL.NEB INH ×4 (00:50→19:14)
[2025-01-30] MEDS: CARVEDILOL 3.125 MG TABLET GT (09:54)
[2025-01-30] MEDS: CYANOCOBALAMIN (VITAMIN B-12) 500 MCG TABLET 1000 MCG GT (09:54)
[2025-01-30] MEDS: DEXLANSOPRAZOLE 30 MG PO (09:55)
[2025-01-30] MEDS: MULTIVITAMIN 1 TAB TABLET GT (09:55)
[2025-01-30] MEDS: ATORVASTATIN 40 MG TABLET GT (21:36)
[2025-01-31] VITALS (10 sets, daily range): BP systolic 118–126; BP diastolic 64–78; PULSE 58–76; RESP 9–25; TEMP 36.1–36.7; O2SAT 96–100
[2025-01-31] MEDS: IPRATROPIUM/ALBUTEROL 3 ML AMPUL.NEB INH ×4 (00:16→18:33)
[2025-01-31] MEDS: DEXLANSOPRAZOLE 30 MG PO (09:51)
[2025-01-31] MEDS: CYANOCOBALAMIN (VITAMIN B-12) 500 MCG TABLET 1000 MCG GT (09:51)
[2025-01-31] MEDS: CARVEDILOL 3.125 MG TABLET GT ×2 (09:51→21:39)
[2025-01-31] MEDS: MULTIVITAMIN 1 TAB TABLET GT (09:51)
--- NOTE | 2025-01-31 18:00 | PD.SAPROG ---
Progress Note - SubAcute DIAGNOSIS (1) Chronic respiratory failure, unspecified whether with hypoxia or hypercapnia: Status: Chronic (2) Tracheostomy status: Status: Chronic (3) Chronic atrial fibrillation: Status: Chronic (4) Other sequelae of cerebral infarction: Status: Chronic (5) Persistent vegetative state: Status: Chronic (6) Hyperlipidemia, unspecified: Status: Chronic (7) G tube feedings: Status: Chronic (8) Diabetes type 2, controlled: Status: Chronic SUBJECTIVE Fever:: none GI:: none Shortness of Breath:: none Pain:: none OBJECTIVE Most recent vital signs: Last Vital Signs Temp 97.5 F 02/04/25 05:24 Pulse 82 02/04/25 05:24 Resp 22 H 02/04/25 05:24 BP 131/68 H 02/04/25 05:24 Pulse Ox 96 02/04/25 05:24 O2 Del Method Mechanical Ventilation 02/02/25 06:00 FiO2 21 02/04/25 04:16 Neurological:: PVS Speech:: none Answers questions:: no Respiratory:: lungs clear Cardiovascular: RRR Abdomen: soft and nontender Extremities:: deformities Tracheostomy:: to blow by Feeding per:: G tube ASSESSMENT & PLAN Assessment: Pt with multiple organ compromise and fully dependent for all care and with poor prognosis. VSS Tolerating tube feeding. VSS Plan: Current treatment reviewed and continued
[2025-01-31] MEDS: ATORVASTATIN 40 MG TABLET GT (21:38)
[2025-02-01] VITALS (8 sets, daily range): BP systolic 109–118; BP diastolic 58–65; PULSE 53–86; RESP 16–20; TEMP 36.3–36.6; O2SAT 97–100
[2025-02-01] MEDS: IPRATROPIUM/ALBUTEROL 3 ML AMPUL.NEB INH ×4 (00:09→18:03)
[2025-02-01] MEDS: CYANOCOBALAMIN (VITAMIN B-12) 500 MCG TABLET 1000 MCG GT (08:55)
[2025-02-01] MEDS: DEXLANSOPRAZOLE 30 MG PO (08:55)
[2025-02-01] MEDS: MULTIVITAMIN 1 TAB TABLET GT (08:55)
[2025-02-01] MEDS: ATORVASTATIN 40 MG TABLET GT (21:37)
[2025-02-01] MEDS: CARVEDILOL 3.125 MG TABLET GT (21:38)
[2025-02-02] VITALS (9 sets, daily range): BP systolic 113–149; BP diastolic 53–71; PULSE 72–86; RESP 16–22; TEMP 36.1–36.4; O2SAT 92–98
[2025-02-02] MEDS: IPRATROPIUM/ALBUTEROL 3 ML AMPUL.NEB INH ×4 (00:02→18:30)
[2025-02-02] MEDS: CARVEDILOL 3.125 MG TABLET GT ×2 (09:07→20:56)
[2025-02-02] MEDS: MULTIVITAMIN 1 TAB TABLET GT (09:07)
[2025-02-02] MEDS: DEXLANSOPRAZOLE 30 MG PO (09:07)
[2025-02-02] MEDS: CYANOCOBALAMIN (VITAMIN B-12) 500 MCG TABLET 1000 MCG GT (09:08)
[2025-02-02] MEDS: ATORVASTATIN 40 MG TABLET GT (20:56)
[2025-02-03] VITALS (10 sets, daily range): BP systolic 106–136; BP diastolic 57–79; PULSE 71–97; RESP 17–27; TEMP 36.2–36.6; O2SAT 92–97
[2025-02-03] MEDS: IPRATROPIUM/ALBUTEROL 3 ML AMPUL.NEB INH ×4 (00:10→19:50)
[2025-02-03] MEDS: CARVEDILOL 3.125 MG TABLET GT (08:48)
[2025-02-03] MEDS: CYANOCOBALAMIN (VITAMIN B-12) 500 MCG TABLET 1000 MCG GT (08:49)
[2025-02-03] MEDS: MULTIVITAMIN 1 TAB TABLET GT (08:49)
[2025-02-03] MEDS: DEXLANSOPRAZOLE 30 MG PO (08:49)
[2025-02-03] MEDS: ATORVASTATIN 40 MG TABLET GT (20:28)
[2025-02-04] VITALS (10 sets, daily range): BP systolic 107–133; BP diastolic 57–73; PULSE 71–94; RESP 19–24; TEMP 36.4–36.7; O2SAT 96–100
[2025-02-04] MEDS: IPRATROPIUM/ALBUTEROL 3 ML AMPUL.NEB INH ×4 (01:32→19:25)
--- NOTE | 2025-02-04 08:04 | PD.SAPROG ---
Progress Note - SubAcute DIAGNOSIS (1) Chronic respiratory failure, unspecified whether with hypoxia or hypercapnia: Status: Chronic (2) Tracheostomy status: Status: Chronic (3) Chronic atrial fibrillation: Status: Chronic (4) Other sequelae of cerebral infarction: Status: Chronic (5) Persistent vegetative state: Status: Chronic (6) Hyperlipidemia, unspecified: Status: Chronic (7) G tube feedings: Status: Chronic (8) Diabetes type 2, controlled: Status: Chronic SUBJECTIVE Fever:: none GI:: none Shortness of Breath:: none Pain:: none OBJECTIVE Most recent vital signs: Last Vital Signs Temp 97.5 F 02/04/25 05:24 Pulse 82 02/04/25 05:24 Resp 22 H 02/04/25 05:24 BP 131/68 H 02/04/25 05:24 Pulse Ox 96 02/04/25 05:24 O2 Del Method Mechanical Ventilation 02/02/25 06:00 FiO2 21 02/04/25 04:16 Neurological:: PVS Speech:: none Answers questions:: no Respiratory:: lungs clear Cardiovascular: RRR Abdomen: soft and nontender Extremities:: deformities Tracheostomy:: to blow by Feeding per:: G tube ASSESSMENT & PLAN Assessment: Pt with multiple organ compromise and fully dependent for all care and with poor prognosis. VSS Tolerating tube feeding Plan: Current treatment reviewed and continued
[2025-02-04] MEDS: CYANOCOBALAMIN (VITAMIN B-12) 500 MCG TABLET 1000 MCG GT (09:43)
[2025-02-04] MEDS: DEXLANSOPRAZOLE 30 MG PO (09:43)
[2025-02-04] MEDS: MULTIVITAMIN 1 TAB TABLET GT (09:43)
[2025-02-04] MEDS: ATORVASTATIN 40 MG TABLET GT (21:05)
[2025-02-04] MEDS: CARVEDILOL 3.125 MG TABLET GT (21:05)
[2025-02-05] VITALS (10 sets, daily range): BP systolic 90–120; BP diastolic 56–81; PULSE 56–91; RESP 15–28; TEMP 36.1–36.2; O2SAT 96–99
[2025-02-05] MEDS: IPRATROPIUM/ALBUTEROL 3 ML AMPUL.NEB INH ×4 (00:49→20:03)
[2025-02-05] MEDS: MULTIVITAMIN 1 TAB TABLET GT (09:14)
[2025-02-05] MEDS: CYANOCOBALAMIN (VITAMIN B-12) 500 MCG TABLET 1000 MCG GT (09:14)
[2025-02-05] MEDS: DEXLANSOPRAZOLE 30 MG PO (09:14)
[2025-02-05] MEDS: ATORVASTATIN 40 MG TABLET GT (21:29)
[2025-02-05] MEDS: CARVEDILOL 3.125 MG TABLET GT (21:29)
[2025-02-06] VITALS (8 sets, daily range): BP systolic 94–126; BP diastolic 51–62; PULSE 62–89; RESP 18–26; TEMP 36.2–36.4; O2SAT 95–99
[2025-02-06] MEDS: IPRATROPIUM/ALBUTEROL 3 ML AMPUL.NEB INH ×4 (00:28→18:16)
[2025-02-06] MEDS: DEXLANSOPRAZOLE 30 MG PO (08:46)
[2025-02-06] MEDS: CYANOCOBALAMIN (VITAMIN B-12) 500 MCG TABLET 1000 MCG GT (08:46)
[2025-02-06] MEDS: CARVEDILOL 3.125 MG TABLET GT ×2 (08:46→21:13)
[2025-02-06] MEDS: MULTIVITAMIN 1 TAB TABLET GT (08:47)
[2025-02-06] MEDS: ATORVASTATIN 40 MG TABLET GT (21:12)
[2025-02-07] VITALS (10 sets, daily range): BP systolic 102–142; BP diastolic 57–89; PULSE 51–75; RESP 17–22; TEMP 36.3–36.7; O2SAT 95–99
[2025-02-07] MEDS: IPRATROPIUM/ALBUTEROL 3 ML AMPUL.NEB INH ×4 (01:15→18:10)
[2025-02-07] MEDS: CYANOCOBALAMIN (VITAMIN B-12) 500 MCG TABLET 1000 MCG GT (09:54)
[2025-02-07] MEDS: MULTIVITAMIN 1 TAB TABLET GT (09:55)
[2025-02-07] MEDS: DEXLANSOPRAZOLE 30 MG PO (09:55)
[2025-02-07] MEDS: ACETAMINOPHEN 325 MG TABLET GT (20:51)
[2025-02-07] MEDS: ATORVASTATIN 40 MG TABLET GT (20:51)
[2025-02-07] MEDS: CARVEDILOL 3.125 MG TABLET GT (20:51)
[2025-02-08] VITALS (10 sets, daily range): BP systolic 106–146; BP diastolic 64–77; PULSE 64–87; RESP 18–24; TEMP 36.2–37.1; O2SAT 97–100
[2025-02-08] MEDS: IPRATROPIUM/ALBUTEROL 3 ML AMPUL.NEB INH ×4 (00:29→18:58)
[2025-02-08] MEDS: CARVEDILOL 3.125 MG TABLET GT (09:23)
[2025-02-08] MEDS: CYANOCOBALAMIN (VITAMIN B-12) 500 MCG TABLET 1000 MCG GT (09:23)
[2025-02-08] MEDS: MULTIVITAMIN 1 TAB TABLET GT (09:23)
[2025-02-08] MEDS: DEXLANSOPRAZOLE 30 MG PO (09:23)
--- NOTE | 2025-02-08 16:49 | PD.SAPROG ---
Progress Note - SubAcute DIAGNOSIS (1) Chronic respiratory failure, unspecified whether with hypoxia or hypercapnia: Status: Chronic (2) Tracheostomy status: Status: Chronic (3) Chronic atrial fibrillation: Status: Chronic (4) Other sequelae of cerebral infarction: Status: Chronic (5) Persistent vegetative state: Status: Chronic (6) Hyperlipidemia, unspecified: Status: Chronic (7) G tube feedings: Status: Chronic (8) Diabetes type 2, controlled: Status: Chronic SUBJECTIVE Fever:: none GI:: none Shortness of Breath:: none Pain:: none OBJECTIVE Most recent vital signs: Last Vital Signs Temp 98.7 F 02/08/25 12:00 Pulse 75 02/08/25 12:47 Resp 20 02/08/25 12:47 BP 125/76 02/08/25 12:00 Pulse Ox 100 02/08/25 12:47 O2 Del Method Mechanical Ventilation 02/07/25 17:46 FiO2 21 02/08/25 12:47 Neurological:: PVS Speech:: none Answers questions:: no Respiratory:: lungs clear Cardiovascular: RRR Abdomen: soft and nontender Extremities:: deformities Tracheostomy:: to blow by Feeding per:: G tube ASSESSMENT & PLAN Assessment: Pt with multiple organ compromise and fully dependent for all care and with poor prognosis. VSS Tolerating tube feeding.. Pt has been on Ventilator since his last admission to acute care. Plan: Current treatment reviewed and continued
[2025-02-08] MEDS: ATORVASTATIN 40 MG TABLET GT (21:54)
[2025-02-09] VITALS (10 sets, daily range): BP systolic 98–118; BP diastolic 41–72; PULSE 53–75; RESP 14–29; TEMP 36.2–37; O2SAT 96–100
[2025-02-09] MEDS: IPRATROPIUM/ALBUTEROL 3 ML AMPUL.NEB INH ×4 (01:21→18:33)
[2025-02-09] MEDS: CYANOCOBALAMIN (VITAMIN B-12) 500 MCG TABLET 1000 MCG GT (09:25)
[2025-02-09] MEDS: DEXLANSOPRAZOLE 30 MG PO (09:26)
[2025-02-09] MEDS: MULTIVITAMIN 1 TAB TABLET GT (09:26)
--- NOTE | 2025-02-09 14:43 | PC.SS ---
Resident remains on ventilator with trach in place and GT for medication and nutrition. He is unable to make needs known, his decision maker is his son Colt. Resident will remain in current care as he has no changes in care or condition, he will continue to have all subacute care needs met by staff. This SSD will continue to make daily contact with resident and will monitor for changes in mood and behavior
[2025-02-09] MEDS: ATORVASTATIN 40 MG TABLET GT (21:45)
[2025-02-09] MEDS: MAGNESIUM HYDROXIDE 30 ML ORAL SUSP ML GT (21:50)
[2025-02-10] VITALS (9 sets, daily range): BP systolic 107–129; BP diastolic 64–72; PULSE 61–99; RESP 18–28; TEMP 36.2–37; O2SAT 98–100
[2025-02-10] MEDS: IPRATROPIUM/ALBUTEROL 3 ML AMPUL.NEB INH ×4 (00:25→18:43)
[2025-02-10] MEDS: CARVEDILOL 3.125 MG TABLET GT ×2 (08:22→21:26)
[2025-02-10] MEDS: DEXLANSOPRAZOLE 30 MG PO (08:22)
[2025-02-10] MEDS: CYANOCOBALAMIN (VITAMIN B-12) 500 MCG TABLET 1000 MCG GT (08:23)
[2025-02-10] MEDS: MULTIVITAMIN 1 TAB TABLET GT (08:24)
[2025-02-10] MEDS: ATORVASTATIN 40 MG TABLET GT (21:26)
[2025-02-10] MEDS: ACETAMINOPHEN 325 MG TABLET GT (21:27)
[2025-02-11] VITALS (9 sets, daily range): BP systolic 103–145; BP diastolic 49–80; PULSE 63–85; RESP 15–25; TEMP 36–36.5; O2SAT 97–100
[2025-02-11] MEDS: IPRATROPIUM/ALBUTEROL 3 ML AMPUL.NEB INH ×4 (00:29→18:38)
[2025-02-11] MEDS: CYANOCOBALAMIN (VITAMIN B-12) 500 MCG TABLET 1000 MCG GT (08:30)
[2025-02-11] MEDS: DEXLANSOPRAZOLE 30 MG PO (08:30)
[2025-02-11] MEDS: MULTIVITAMIN 1 TAB TABLET GT (08:30)
[2025-02-11] MEDS: ATORVASTATIN 40 MG TABLET GT (21:51)
[2025-02-12] VITALS (10 sets, daily range): BP systolic 100–138; BP diastolic 60–82; PULSE 66–82; RESP 15–23; TEMP 36–36.5; O2SAT 96–100
[2025-02-12] MEDS: IPRATROPIUM/ALBUTEROL 3 ML AMPUL.NEB INH ×4 (00:34→18:40)
[2025-02-12] MEDS: CARVEDILOL 3.125 MG TABLET GT ×2 (09:23→21:25)
[2025-02-12] MEDS: CYANOCOBALAMIN (VITAMIN B-12) 500 MCG TABLET 1000 MCG GT (09:24)
[2025-02-12] MEDS: MULTIVITAMIN 1 TAB TABLET GT (09:24)
[2025-02-12] MEDS: DEXLANSOPRAZOLE 30 MG PO (09:24)
--- NOTE | 2025-02-12 14:25 | PD.SAPROG ---
Progress Note - SubAcute DIAGNOSIS (1) Chronic respiratory failure, unspecified whether with hypoxia or hypercapnia: Status: Chronic (2) Tracheostomy status: Status: Chronic (3) Chronic atrial fibrillation: Status: Chronic (4) Other sequelae of cerebral infarction: Status: Chronic (5) Persistent vegetative state: Status: Chronic (6) Hyperlipidemia, unspecified: Status: Chronic (7) G tube feedings: Status: Chronic (8) Diabetes type 2, controlled: Status: Chronic SUBJECTIVE Fever:: none GI:: none Shortness of Breath:: none Pain:: none OBJECTIVE Most recent vital signs: Last Vital Signs Temp 97.0 F 02/16/25 18:00 Pulse 83 02/16/25 21:17 Resp 20 02/16/25 18:00 BP 117/75 02/16/25 21:17 Pulse Ox 99 02/16/25 16:27 O2 Del Method Mechanical Ventilation 02/15/25 17:06 FiO2 30 02/16/25 16:27 Neurological:: PVS Speech:: none Answers questions:: no Respiratory:: lungs clear Cardiovascular: RRR Abdomen: soft and nontender Extremities:: deformities Tracheostomy:: to blow by Feeding per:: G tube ASSESSMENT & PLAN Assessment: Pt with multiple organ compromise and fully dependent for all care and with poor prognosis. VSS Tolerating tube feeding.. Pt has been on Ventilator since his last admission to acute care. Plan: Current treatment reviewed and continued
[2025-02-12] MEDS: ATORVASTATIN 40 MG TABLET GT (21:25)
[2025-02-13] VITALS (9 sets, daily range): BP systolic 106–134; BP diastolic 58–81; PULSE 61–92; RESP 16–28; TEMP 36.1–37; O2SAT 97–100
[2025-02-13] MEDS: IPRATROPIUM/ALBUTEROL 3 ML AMPUL.NEB INH ×4 (00:48→19:10)
[2025-02-13] MEDS: CYANOCOBALAMIN (VITAMIN B-12) 500 MCG TABLET 1000 MCG GT (09:02)
[2025-02-13] MEDS: MULTIVITAMIN 1 TAB TABLET GT (09:03)
[2025-02-13] MEDS: DEXLANSOPRAZOLE 30 MG PO (09:03)
[2025-02-13] MEDS: ATORVASTATIN 40 MG TABLET GT (20:47)
[2025-02-13] MEDS: CARVEDILOL 3.125 MG TABLET GT (20:48)
[2025-02-14] VITALS (11 sets, daily range): BP systolic 98–174; BP diastolic 66–83; PULSE 52–88; RESP 16–26; TEMP 36.3–36.6; O2SAT 90–99
[2025-02-14] MEDS: IPRATROPIUM/ALBUTEROL 3 ML AMPUL.NEB INH ×4 (00:26→18:42)
[2025-02-14] MEDS: CYANOCOBALAMIN (VITAMIN B-12) 500 MCG TABLET 1000 MCG GT (08:41)
[2025-02-14] MEDS: MULTIVITAMIN 1 TAB TABLET GT (08:41)
[2025-02-14] MEDS: DEXLANSOPRAZOLE 30 MG PO (08:41)
[2025-02-14] MEDS: ATORVASTATIN 40 MG TABLET GT (20:39)
[2025-02-14] MEDS: CARVEDILOL 3.125 MG TABLET GT (20:40)
[2025-02-15] VITALS (10 sets, daily range): BP systolic 93–153; BP diastolic 62–76; PULSE 58–91; RESP 17–29; TEMP 36.1–36.4; O2SAT 96–100
[2025-02-15] MEDS: IPRATROPIUM/ALBUTEROL 3 ML AMPUL.NEB INH ×4 (00:34→19:09)
[2025-02-15] MEDS: MULTIVITAMIN 1 TAB TABLET GT (08:41)
[2025-02-15] MEDS: CYANOCOBALAMIN (VITAMIN B-12) 500 MCG TABLET 1000 MCG GT (08:41)
[2025-02-15] MEDS: DEXLANSOPRAZOLE 30 MG PO (08:41)
[2025-02-15] MEDS: ATORVASTATIN 40 MG TABLET GT (20:37)
[2025-02-15] MEDS: MAGNESIUM HYDROXIDE 30 ML ORAL SUSP ML GT (21:58)
[2025-02-16] VITALS (10 sets, daily range): BP systolic 113–128; BP diastolic 73–82; PULSE 49–83; RESP 18–23; TEMP 36.1–36.9; O2SAT 98–100
[2025-02-16] MEDS: IPRATROPIUM/ALBUTEROL 3 ML AMPUL.NEB INH ×4 (00:04→16:27)
[2025-02-16] MEDS: CYANOCOBALAMIN (VITAMIN B-12) 500 MCG TABLET 1000 MCG GT (09:45)
[2025-02-16] MEDS: CARVEDILOL 3.125 MG TABLET GT ×2 (09:46→21:17)
[2025-02-16] MEDS: MULTIVITAMIN 1 TAB TABLET GT (09:46)
[2025-02-16] MEDS: DEXLANSOPRAZOLE 30 MG PO (09:46)
[2025-02-16] MEDS: ATORVASTATIN 40 MG TABLET GT (21:17)
[2025-02-17] VITALS (10 sets, daily range): BP systolic 92–123; BP diastolic 51–73; PULSE 49–76; RESP 18–24; TEMP 36–36.3; O2SAT 96–99
[2025-02-17] MEDS: IPRATROPIUM/ALBUTEROL 3 ML AMPUL.NEB INH ×4 (00:05→19:34)
[2025-02-17] MEDS: CARVEDILOL 3.125 MG TABLET GT ×2 (09:03→20:43)
[2025-02-17] MEDS: MULTIVITAMIN 1 TAB TABLET GT (09:04)
[2025-02-17] MEDS: DEXLANSOPRAZOLE 30 MG PO (09:04)
[2025-02-17] MEDS: CYANOCOBALAMIN (VITAMIN B-12) 500 MCG TABLET 1000 MCG GT (09:04)
[2025-02-17] MEDS: ATORVASTATIN 40 MG TABLET GT (20:43)
[2025-02-18] VITALS (10 sets, daily range): BP systolic 117–136; BP diastolic 58–86; PULSE 52–82; RESP 18–34; TEMP 36.3–37; O2SAT 98–100
[2025-02-18] MEDS: IPRATROPIUM/ALBUTEROL 3 ML AMPUL.NEB INH ×4 (01:10→17:58)
[2025-02-18] MEDS: CARVEDILOL 3.125 MG TABLET GT ×2 (09:04→20:53)
[2025-02-18] MEDS: MULTIVITAMIN 1 TAB TABLET GT (09:05)
[2025-02-18] MEDS: DEXLANSOPRAZOLE 30 MG PO (09:05)
[2025-02-18] MEDS: CYANOCOBALAMIN (VITAMIN B-12) 500 MCG TABLET 1000 MCG GT (09:05)
[2025-02-18] MEDS: MAGNESIUM HYDROXIDE 30 ML ORAL SUSP ML GT (09:06)
[2025-02-18] MEDS: ATORVASTATIN 40 MG TABLET GT (20:52)
[2025-02-19] VITALS (10 sets, daily range): BP systolic 101–146; BP diastolic 51–83; PULSE 52–96; RESP 19–22; TEMP 36.1–36.4; O2SAT 98–100
[2025-02-19] MEDS: IPRATROPIUM/ALBUTEROL 3 ML AMPUL.NEB INH ×4 (00:25→19:25)
[2025-02-19] MEDS: DEXLANSOPRAZOLE 30 MG PO (08:43)
[2025-02-19] MEDS: MULTIVITAMIN 1 TAB TABLET GT (08:43)
[2025-02-19] MEDS: CYANOCOBALAMIN (VITAMIN B-12) 500 MCG TABLET 1000 MCG GT (08:43)
[2025-02-19] MEDS: ATORVASTATIN 40 MG TABLET GT (20:51)
[2025-02-19] MEDS: CARVEDILOL 3.125 MG TABLET GT (20:51)
[2025-02-20] VITALS (8 sets, daily range): BP systolic 118–125; BP diastolic 66–75; PULSE 50–75; RESP 17–21; TEMP 36.1–36.3; O2SAT 95–99
[2025-02-20] MEDS: IPRATROPIUM/ALBUTEROL 3 ML AMPUL.NEB INH ×4 (01:29→19:32)
[2025-02-20] MEDS: CYANOCOBALAMIN (VITAMIN B-12) 500 MCG TABLET 1000 MCG GT (09:19)
[2025-02-20] MEDS: DEXLANSOPRAZOLE 30 MG PO (09:19)
[2025-02-20] MEDS: CARVEDILOL 3.125 MG TABLET GT (09:19)
[2025-02-20] MEDS: MULTIVITAMIN 1 TAB TABLET GT (09:19)
[2025-02-20] MEDS: ACETAMINOPHEN 325 MG TABLET GT (14:34)
[2025-02-20] MEDS: ATORVASTATIN 40 MG TABLET GT (21:05)
--- NOTE | 2025-02-20 21:15 | PD.SAPROG ---
Progress Note - SubAcute DIAGNOSIS (1) Chronic respiratory failure, unspecified whether with hypoxia or hypercapnia: Status: Chronic (2) Tracheostomy status: Status: Chronic (3) Chronic atrial fibrillation: Status: Chronic (4) Other sequelae of cerebral infarction: Status: Chronic (5) Persistent vegetative state: Status: Chronic (6) Hyperlipidemia, unspecified: Status: Chronic (7) G tube feedings: Status: Chronic (8) Diabetes type 2, controlled: Status: Chronic SUBJECTIVE Fever:: none GI:: none Shortness of Breath:: none Pain:: none OBJECTIVE Most recent vital signs: Last Vital Signs Temp 97.0 F 02/20/25 06:00 Pulse 50 L 02/20/25 21:05 Resp 19 02/20/25 13:46 BP 118/66 02/20/25 21:05 Pulse Ox 98 02/20/25 13:46 O2 Del Method Mechanical Ventilation 02/19/25 17:09 FiO2 30 02/20/25 13:46 Neurological:: PVS Speech:: none Answers questions:: no Respiratory:: lungs clear Cardiovascular: RRR Abdomen: soft and nontender Extremities:: deformities Tracheostomy:: to blow by Feeding per:: G tube ASSESSMENT & PLAN Assessment: Pt with multiple organ compromise and fully dependent for all care and with poor prognosis. VSS Tolerating tube feeding.. Pt has been on Ventilator since his last admission to acute care. Plan: Current treatment reviewed and continued
[2025-02-21] VITALS (10 sets, daily range): BP systolic 89–138; BP diastolic 55–88; PULSE 56–81; RESP 18–23; TEMP 35.9–36.4; O2SAT 98–99
[2025-02-21] MEDS: IPRATROPIUM/ALBUTEROL 3 ML AMPUL.NEB INH ×4 (01:04→19:29)
[2025-02-21] MEDS: CYANOCOBALAMIN (VITAMIN B-12) 500 MCG TABLET 1000 MCG GT (09:08)
[2025-02-21] MEDS: CARVEDILOL 3.125 MG TABLET GT (09:08)
[2025-02-21] MEDS: DEXLANSOPRAZOLE 30 MG PO (09:08)
[2025-02-21] MEDS: MULTIVITAMIN 1 TAB TABLET GT (09:09)
[2025-02-21] MEDS: ATORVASTATIN 40 MG TABLET GT (21:19)
[2025-02-22] VITALS (9 sets, daily range): BP systolic 94–151; BP diastolic 69–82; PULSE 52–82; RESP 18–24; TEMP 36.1–36.2; O2SAT 97–99
[2025-02-22] MEDS: IPRATROPIUM/ALBUTEROL 3 ML AMPUL.NEB INH ×4 (00:26→18:08)
[2025-02-22] MEDS: CYANOCOBALAMIN (VITAMIN B-12) 500 MCG TABLET 1000 MCG GT (09:26)
[2025-02-22] MEDS: DEXLANSOPRAZOLE 30 MG PO (09:26)
[2025-02-22] MEDS: CARVEDILOL 3.125 MG TABLET GT (09:26)
[2025-02-22] MEDS: MULTIVITAMIN 1 TAB TABLET GT (09:26)
[2025-02-22] MEDS: ATORVASTATIN 40 MG TABLET GT (21:33)
[2025-02-23] VITALS (9 sets, daily range): BP systolic 101–131; BP diastolic 57–70; PULSE 46–88; RESP 15–25; TEMP 36.6–36.9; O2SAT 94–99
[2025-02-23] MEDS: IPRATROPIUM/ALBUTEROL 3 ML AMPUL.NEB INH ×4 (01:01→18:00)
[2025-02-23] MEDS: DEXLANSOPRAZOLE 30 MG PO (09:03)
[2025-02-23] MEDS: MULTIVITAMIN 1 TAB TABLET GT (09:03)
[2025-02-23] MEDS: CARVEDILOL 3.125 MG TABLET GT (09:03)
[2025-02-23] MEDS: CYANOCOBALAMIN (VITAMIN B-12) 500 MCG TABLET 1000 MCG GT (09:03)
[2025-02-23] MEDS: ATORVASTATIN 40 MG TABLET GT (21:37)
[2025-02-24] VITALS (11 sets, daily range): BP systolic 106–138; BP diastolic 68–81; PULSE 52–93; RESP 22–30; TEMP 36.7–36.9; O2SAT 94–99
[2025-02-24] MEDS: IPRATROPIUM/ALBUTEROL 3 ML AMPUL.NEB INH ×4 (00:46→18:30)
[2025-02-24] MEDS: DEXLANSOPRAZOLE 30 MG PO (09:08)
[2025-02-24] MEDS: CYANOCOBALAMIN (VITAMIN B-12) 500 MCG TABLET 1000 MCG GT (09:08)
[2025-02-24] MEDS: CARVEDILOL 3.125 MG TABLET GT (09:08)
[2025-02-24] MEDS: MULTIVITAMIN 1 TAB TABLET GT (09:09)
--- NOTE | 2025-02-24 15:06 | PD.SAPROG ---
Progress Note - SubAcute DIAGNOSIS (1) Chronic respiratory failure, unspecified whether with hypoxia or hypercapnia: Status: Chronic (2) Tracheostomy status: Status: Chronic (3) Chronic atrial fibrillation: Status: Chronic (4) Other sequelae of cerebral infarction: Status: Chronic (5) Persistent vegetative state: Status: Chronic (6) Hyperlipidemia, unspecified: Status: Chronic (7) G tube feedings: Status: Chronic (8) Diabetes type 2, controlled: Status: Chronic SUBJECTIVE Fever:: none GI:: none Shortness of Breath:: none Pain:: none OBJECTIVE Most recent vital signs: Last Vital Signs Temp 98.2 F 02/24/25 12:00 Pulse 70 02/24/25 13:05 Resp 28 H 02/24/25 13:05 BP 119/68 02/24/25 12:00 Pulse Ox 99 02/24/25 13:05 O2 Del Method Mechanical Ventilation 02/23/25 18:00 FiO2 30 02/24/25 13:05 Neurological:: PVS Speech:: none Answers questions:: no Respiratory:: lungs clear Cardiovascular: RRR Abdomen: soft and nontender Extremities:: deformities Tracheostomy:: to blow by Feeding per:: G tube ASSESSMENT & PLAN Assessment: Pt with multiple organ compromise and fully dependent for all care and with poor prognosis. VSS Tolerating tube feeding.. Pt has been on Ventilator since his last admission to acute care. Plan: Current treatment reviewed and continued
[2025-02-24] MEDS: ATORVASTATIN 40 MG TABLET GT (21:14)
[2025-02-25] VITALS (10 sets, daily range): BP systolic 96–136; BP diastolic 62–82; PULSE 55–92; RESP 18–29; TEMP 36.2–36.8; O2SAT 96–99
[2025-02-25] MEDS: IPRATROPIUM/ALBUTEROL 3 ML AMPUL.NEB INH ×4 (00:54→20:05)
[2025-02-25] MEDS: DEXLANSOPRAZOLE 30 MG PO (09:13)
[2025-02-25] MEDS: CYANOCOBALAMIN (VITAMIN B-12) 500 MCG TABLET 1000 MCG GT (09:13)
[2025-02-25] MEDS: MULTIVITAMIN 1 TAB TABLET GT (09:13)
[2025-02-25] MEDS: ATORVASTATIN 40 MG TABLET GT (21:13)
[2025-02-25] MEDS: CARVEDILOL 3.125 MG TABLET GT (21:13)
[2025-02-26] VITALS (11 sets, daily range): BP systolic 90–144; BP diastolic 56–80; PULSE 52–86; RESP 19–29; TEMP 36.1–36.4; O2SAT 97–100
[2025-02-26] MEDS: IPRATROPIUM/ALBUTEROL 3 ML AMPUL.NEB INH ×4 (00:24→19:14)
[2025-02-26] MEDS: CARVEDILOL 3.125 MG TABLET GT (08:06)
[2025-02-26] MEDS: DEXLANSOPRAZOLE 30 MG GT (08:07)
[2025-02-26] MEDS: MULTIVITAMIN 1 TAB TABLET GT (08:07)
[2025-02-26] MEDS: CYANOCOBALAMIN (VITAMIN B-12) 500 MCG TABLET 1000 MCG GT (08:07)
--- NOTE | 2025-02-26 13:50 | PD.SAPROG ---
Progress Note - SubAcute DIAGNOSIS (1) Chronic respiratory failure, unspecified whether with hypoxia or hypercapnia: Status: Chronic (2) Tracheostomy status: Status: Chronic (3) Chronic atrial fibrillation: Status: Chronic (4) Other sequelae of cerebral infarction: Status: Chronic (5) Persistent vegetative state: Status: Chronic (6) Hyperlipidemia, unspecified: Status: Chronic (7) G tube feedings: Status: Chronic (8) Diabetes type 2, controlled: Status: Chronic SUBJECTIVE Fever:: none GI:: none Shortness of Breath:: none Pain:: none OBJECTIVE Most recent vital signs: Last Vital Signs Temp 97.6 F 03/01/25 17:49 Pulse 80 03/01/25 21:49 Resp 22 H 03/01/25 19:41 BP 108/72 03/01/25 21:49 Pulse Ox 99 03/01/25 19:41 O2 Del Method Mechanical Ventilation 02/28/25 17:29 FiO2 30 03/01/25 19:41 Neurological:: PVS Speech:: none Answers questions:: no Respiratory:: lungs clear Cardiovascular: RRR Abdomen: soft and nontender Extremities:: deformities Tracheostomy:: to blow by Feeding per:: G tube ASSESSMENT & PLAN Assessment: Pt with multiple organ compromise and fully dependent for all care and with poor prognosis. VSS Tolerating tube feeding.. Pt has been on Ventilator since his last admission to acute care. Plan: Current treatment reviewed and continued
[2025-02-26] MEDS: ATORVASTATIN 40 MG TABLET GT (20:37)
[2025-02-27] VITALS (10 sets, daily range): BP systolic 87–131; BP diastolic 58–99; PULSE 63–82; RESP 20–31; TEMP 35.9–36.2; O2SAT 97–100
[2025-02-27] MEDS: IPRATROPIUM/ALBUTEROL 3 ML AMPUL.NEB INH ×4 (02:16→18:42)
[2025-02-27] MEDS: CARVEDILOL 3.125 MG TABLET GT ×2 (08:53→20:57)
[2025-02-27] MEDS: DEXLANSOPRAZOLE 30 MG GT (08:53)
[2025-02-27] MEDS: MAGNESIUM HYDROXIDE 30 ML ORAL SUSP ML GT (08:53)
[2025-02-27] MEDS: CYANOCOBALAMIN (VITAMIN B-12) 500 MCG TABLET 1000 MCG GT (08:53)
[2025-02-27] MEDS: MULTIVITAMIN 1 TAB TABLET GT (08:54)
[2025-02-27] MEDS: ATORVASTATIN 40 MG TABLET GT (20:57)
[2025-02-28] VITALS (10 sets, daily range): BP systolic 96–115; BP diastolic 53–71; PULSE 63–85; RESP 21–28; TEMP 35.9–36.9; O2SAT 97–99
[2025-02-28] MEDS: IPRATROPIUM/ALBUTEROL 3 ML AMPUL.NEB INH ×4 (01:06→18:20)
[2025-02-28] MEDS: CYANOCOBALAMIN (VITAMIN B-12) 500 MCG TABLET 1000 MCG GT (09:07)
[2025-02-28] MEDS: DEXLANSOPRAZOLE 30 MG GT (09:08)
[2025-02-28] MEDS: MULTIVITAMIN 1 TAB TABLET GT (09:08)
[2025-02-28] MEDS: ATORVASTATIN 40 MG TABLET GT (21:25)
[2025-03-01] VITALS (10 sets, daily range): BP systolic 98–143; BP diastolic 56–76; PULSE 62–83; RESP 20–27; TEMP 36.1–36.8; O2SAT 97–99
[2025-03-01] MEDS: IPRATROPIUM/ALBUTEROL 3 ML AMPUL.NEB INH ×4 (00:25→19:41)
[2025-03-01] MEDS: CARVEDILOL 3.125 MG TABLET GT (09:18)
[2025-03-01] MEDS: MULTIVITAMIN 1 TAB TABLET GT (09:19)
[2025-03-01] MEDS: DEXLANSOPRAZOLE 30 MG GT (09:19)
[2025-03-01] MEDS: CYANOCOBALAMIN (VITAMIN B-12) 500 MCG TABLET 1000 MCG GT (09:19)
[2025-03-01] MEDS: ATORVASTATIN 40 MG TABLET GT (21:45)
[2025-03-02] VITALS (9 sets, daily range): BP systolic 96–117; BP diastolic 53–67; PULSE 52–78; RESP 18–26; TEMP 36.3–36.5; O2SAT 96–99
[2025-03-02] MEDS: IPRATROPIUM/ALBUTEROL 3 ML AMPUL.NEB INH ×4 (00:22→19:24)
[2025-03-02] MEDS: ONDANSETRON HCL 4 MG TABLET PO (00:34)
[2025-03-02] MEDS: CARVEDILOL 3.125 MG TABLET GT (09:01)
[2025-03-02] MEDS: CYANOCOBALAMIN (VITAMIN B-12) 500 MCG TABLET 1000 MCG GT (09:01)
[2025-03-02] MEDS: DEXLANSOPRAZOLE 30 MG GT (09:02)
[2025-03-02] MEDS: MULTIVITAMIN 1 TAB TABLET GT (09:02)
[2025-03-02] MEDS: ATORVASTATIN 40 MG TABLET GT (21:35)
[2025-03-02] MEDS: MAGNESIUM HYDROXIDE 30 ML ORAL SUSP ML GT (22:27)
--- NOTE | 2025-03-02 22:35 | PD.SAPROG ---
Progress Note - SubAcute DIAGNOSIS (1) Chronic respiratory failure, unspecified whether with hypoxia or hypercapnia: Status: Chronic (2) Tracheostomy status: Status: Chronic (3) Chronic atrial fibrillation: Status: Chronic (4) Other sequelae of cerebral infarction: Status: Chronic (5) Persistent vegetative state: Status: Chronic (6) Hyperlipidemia, unspecified: Status: Chronic (7) G tube feedings: Status: Chronic (8) Diabetes type 2, controlled: Status: Chronic SUBJECTIVE Fever:: none GI:: none Shortness of Breath:: none Pain:: none OBJECTIVE Most recent vital signs: Last Vital Signs Temp 97.6 F 03/02/25 17:18 Pulse 76 03/02/25 21:34 Resp 20 03/02/25 19:04 BP 104/59 L 03/02/25 21:34 Pulse Ox 99 03/02/25 19:04 O2 Del Method Mechanical Ventilation 02/28/25 17:29 FiO2 30 03/02/25 19:04 Neurological:: PVS Speech:: none Answers questions:: no Respiratory:: lungs clear Cardiovascular: RRR Abdomen: soft and nontender Extremities:: deformities Tracheostomy:: to blow by Feeding per:: G tube ASSESSMENT & PLAN Assessment: Pt with multiple organ compromise and fully dependent for all care and with poor prognosis. VSS Tolerating tube feeding.. Pt has been on Ventilator since his last admission to acute care. Plan: Current treatment reviewed and continued
[2025-03-03] VITALS (11 sets, daily range): BP systolic 95–141; BP diastolic 50–82; PULSE 52–81; RESP 19–25; TEMP 36.1–36.4; O2SAT 95–100
[2025-03-03] MEDS: IPRATROPIUM/ALBUTEROL 3 ML AMPUL.NEB INH ×4 (00:25→18:32)
[2025-03-03] MEDS: CARVEDILOL 3.125 MG TABLET GT (08:50)
[2025-03-03] MEDS: MULTIVITAMIN 1 TAB TABLET GT (08:51)
[2025-03-03] MEDS: CYANOCOBALAMIN (VITAMIN B-12) 500 MCG TABLET 1000 MCG GT (08:51)
[2025-03-03] MEDS: DEXLANSOPRAZOLE 30 MG GT (08:51)
[2025-03-03] MEDS: BISACODYL 10 MG SUPP.RECT PR (11:22)
[2025-03-03] MEDS: ATORVASTATIN 40 MG TABLET GT (21:30)
[2025-03-04] VITALS (10 sets, daily range): BP systolic 116–145; BP diastolic 54–79; PULSE 45–74; RESP 19–21; TEMP 36.1–36.3; O2SAT 96–100
[2025-03-04] MEDS: IPRATROPIUM/ALBUTEROL 3 ML AMPUL.NEB INH ×4 (00:25→16:11)
[2025-03-04] MEDS: CARVEDILOL 3.125 MG TABLET GT ×2 (08:40→21:26)
[2025-03-04] MEDS: MULTIVITAMIN 1 TAB TABLET GT (08:40)
[2025-03-04] MEDS: CYANOCOBALAMIN (VITAMIN B-12) 500 MCG TABLET 1000 MCG GT (08:40)
[2025-03-04] MEDS: DEXLANSOPRAZOLE 30 MG GT (08:40)
[2025-03-04] MEDS: ATORVASTATIN 40 MG TABLET GT (21:26)
[2025-03-05] VITALS (11 sets, daily range): BP systolic 102–143; BP diastolic 57–80; PULSE 49–88; RESP 15–23; TEMP 36.1–36.6; O2SAT 97–99
[2025-03-05] MEDS: IPRATROPIUM/ALBUTEROL 3 ML AMPUL.NEB INH ×3 (04:19→18:22)
[2025-03-05] MEDS: CARVEDILOL 3.125 MG TABLET GT (08:18)
[2025-03-05] MEDS: DEXLANSOPRAZOLE 30 MG GT (08:19)
[2025-03-05] MEDS: MULTIVITAMIN 1 TAB TABLET GT (08:19)
[2025-03-05] MEDS: CYANOCOBALAMIN (VITAMIN B-12) 500 MCG TABLET 1000 MCG GT (08:19)
[2025-03-05] MEDS: ATORVASTATIN 40 MG TABLET GT (21:16)
[2025-03-05] MEDS: MAGNESIUM HYDROXIDE 30 ML ORAL SUSP ML GT (21:28)
[2025-03-06] VITALS (10 sets, daily range): BP systolic 106–132; BP diastolic 58–80; PULSE 61–89; RESP 18–33; TEMP 36.3–36.4; O2SAT 97–99
[2025-03-06] MEDS: IPRATROPIUM/ALBUTEROL 3 ML AMPUL.NEB INH ×4 (00:10→18:17)
[2025-03-06] MEDS: CARVEDILOL 3.125 MG TABLET GT ×2 (09:04→21:32)
[2025-03-06] MEDS: CYANOCOBALAMIN (VITAMIN B-12) 500 MCG TABLET 1000 MCG GT (09:05)
[2025-03-06] MEDS: DEXLANSOPRAZOLE 30 MG GT (09:06)
[2025-03-06] MEDS: MULTIVITAMIN 1 TAB TABLET GT (09:06)
--- NOTE | 2025-03-06 17:32 | PD.SAPROG ---
Progress Note - SubAcute DIAGNOSIS (1) Chronic respiratory failure, unspecified whether with hypoxia or hypercapnia: Status: Chronic (2) Tracheostomy status: Status: Chronic (3) Chronic atrial fibrillation: Status: Chronic (4) Other sequelae of cerebral infarction: Status: Chronic (5) Persistent vegetative state: Status: Chronic (6) Hyperlipidemia, unspecified: Status: Chronic (7) G tube feedings: Status: Chronic (8) Diabetes type 2, controlled: Status: Chronic SUBJECTIVE Fever:: none GI:: none Shortness of Breath:: none Pain:: none OBJECTIVE Most recent vital signs: Last Vital Signs Temp 97.5 F 03/06/25 11:30 Pulse 82 03/06/25 13:00 Resp 22 H 03/06/25 13:00 BP 132/65 H 03/06/25 11:30 Pulse Ox 99 03/06/25 13:00 O2 Del Method Mechanical Ventilation 03/04/25 17:03 FiO2 30 03/06/25 13:00 Neurological:: PVS Speech:: none Answers questions:: no Respiratory:: lungs clear Cardiovascular: RRR Abdomen: soft and nontender Extremities:: deformities Tracheostomy:: to blow by Feeding per:: G tube ASSESSMENT & PLAN Assessment: Pt with multiple organ compromise and fully dependent for all care and with poor prognosis. VSS Tolerating tube feeding.. Pt has been on Ventilator since his last admission to acute care. No pain issues Plan: Current treatment reviewed and continued
[2025-03-06] MEDS: ATORVASTATIN 40 MG TABLET GT (21:32)
[2025-03-06] MEDS: ACETAMINOPHEN 325 MG TABLET GT (21:33)
[2025-03-07] VITALS (10 sets, daily range): BP systolic 108–137; BP diastolic 53–82; PULSE 52–76; RESP 15–24; TEMP 36.1–36.3; O2SAT 98–99
[2025-03-07] MEDS: IPRATROPIUM/ALBUTEROL 3 ML AMPUL.NEB INH ×4 (00:12→18:50)
[2025-03-07] MEDS: CARVEDILOL 3.125 MG TABLET GT ×2 (08:14→21:07)
[2025-03-07] MEDS: DEXLANSOPRAZOLE 30 MG GT (08:15)
[2025-03-07] MEDS: MULTIVITAMIN 1 TAB TABLET GT (08:15)
[2025-03-07] MEDS: CYANOCOBALAMIN (VITAMIN B-12) 500 MCG TABLET 1000 MCG GT (08:15)
--- NOTE | 2025-03-07 11:46 | PC.SS ---
Resident remains in current care on ventilator with trach in place and GT for medication and nutrition. 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 Resident will remain in current care and will have all subacute care needs met by staff. This SSD will make daily contact with resident and will monitor for changes in mood and behavior.
[2025-03-07] MEDS: ATORVASTATIN 40 MG TABLET GT (21:06)
[2025-03-08] VITALS (11 sets, daily range): BP systolic 98–141; BP diastolic 58–79; PULSE 51–80; RESP 20–28; TEMP 36.1–36.4; O2SAT 97–99
[2025-03-08] MEDS: IPRATROPIUM/ALBUTEROL 3 ML AMPUL.NEB INH ×4 (01:15→18:57)
[2025-03-08] MEDS: CARVEDILOL 3.125 MG TABLET GT (08:48)
[2025-03-08] MEDS: DEXLANSOPRAZOLE 30 MG GT (08:49)
[2025-03-08] MEDS: MULTIVITAMIN 1 TAB TABLET GT (08:49)
[2025-03-08] MEDS: CYANOCOBALAMIN (VITAMIN B-12) 500 MCG TABLET 1000 MCG GT (08:49)
[2025-03-08] MEDS: ATORVASTATIN 40 MG TABLET GT (21:19)
[2025-03-09] VITALS (8 sets, daily range): BP systolic 111–139; BP diastolic 68–83; PULSE 66–77; RESP 19–26; TEMP 36.4–36.8; O2SAT 97–100
[2025-03-09] MEDS: IPRATROPIUM/ALBUTEROL 3 ML AMPUL.NEB INH ×4 (01:49→19:23)
[2025-03-09] MEDS: MULTIVITAMIN 1 TAB TABLET GT (09:15)
[2025-03-09] MEDS: CYANOCOBALAMIN (VITAMIN B-12) 500 MCG TABLET 1000 MCG GT (09:15)
[2025-03-09] MEDS: DEXLANSOPRAZOLE 30 MG GT (09:15)
[2025-03-09] MEDS: CARVEDILOL 3.125 MG TABLET GT ×2 (09:15→21:20)
[2025-03-09] MEDS: ATORVASTATIN 40 MG TABLET GT (21:20)
[2025-03-10] VITALS (10 sets, daily range): BP systolic 91–138; BP diastolic 52–82; PULSE 48–74; RESP 13–24; TEMP 36.2–36.6; O2SAT 97–99
[2025-03-10] MEDS: IPRATROPIUM/ALBUTEROL 3 ML AMPUL.NEB INH ×4 (00:59→18:08)
[2025-03-10] MEDS: DEXLANSOPRAZOLE 30 MG GT (09:45)
[2025-03-10] MEDS: CYANOCOBALAMIN (VITAMIN B-12) 500 MCG TABLET 1000 MCG GT (09:45)
[2025-03-10] MEDS: MULTIVITAMIN 1 TAB TABLET GT (09:45)
--- NOTE | 2025-03-10 12:02 | PD.SAPROG ---
Progress Note - SubAcute DIAGNOSIS (1) Chronic respiratory failure, unspecified whether with hypoxia or hypercapnia: Status: Chronic (2) Tracheostomy status: Status: Chronic (3) Chronic atrial fibrillation: Status: Chronic (4) Other sequelae of cerebral infarction: Status: Chronic (5) Persistent vegetative state: Status: Chronic (6) Hyperlipidemia, unspecified: Status: Chronic (7) G tube feedings: Status: Chronic (8) Diabetes type 2, controlled: Status: Chronic SUBJECTIVE Fever:: none GI:: none Shortness of Breath:: none Pain:: none OBJECTIVE Most recent vital signs: Last Vital Signs Temp 97.5 F 03/10/25 11:34 Pulse 72 03/10/25 11:34 Resp 17 03/10/25 11:34 BP 104/52 L 03/10/25 11:34 Pulse Ox 99 03/10/25 06:58 O2 Del Method Mechanical Ventilation 03/09/25 17:52 FiO2 30 03/10/25 06:58 Neurological:: PVS Speech:: none Answers questions:: no Respiratory:: lungs clear Cardiovascular: RRR Abdomen: soft and nontender Extremities:: deformities Tracheostomy:: to blow by Feeding per:: G tube ASSESSMENT & PLAN Assessment: Pt with multiple organ compromise and fully dependent for all care and with poor prognosis. VSS Tolerating tube feeding.. Pt has been on Ventilator since his last admission to acute care. No pain issues Plan: Current treatment reviewed and continued
[2025-03-10] MEDS: ATORVASTATIN 40 MG TABLET GT (21:24)
[2025-03-11] VITALS (10 sets, daily range): BP systolic 111–138; BP diastolic 53–85; PULSE 54–90; RESP 19–30; TEMP 36.4–36.8; O2SAT 95–100
[2025-03-11] MEDS: IPRATROPIUM/ALBUTEROL 3 ML AMPUL.NEB INH ×4 (00:54→18:31)
[2025-03-11] MEDS: CARVEDILOL 3.125 MG TABLET GT (09:05)
[2025-03-11] MEDS: DEXLANSOPRAZOLE 30 MG GT (09:05)
[2025-03-11] MEDS: CYANOCOBALAMIN (VITAMIN B-12) 500 MCG TABLET 1000 MCG GT (09:07)
[2025-03-11] MEDS: MULTIVITAMIN 1 TAB TABLET GT (09:08)
[2025-03-11] MEDS: ATORVASTATIN 40 MG TABLET GT (21:37)
[2025-03-12] VITALS (10 sets, daily range): BP systolic 106–148; BP diastolic 63–84; PULSE 41–79; RESP 18–33; TEMP 36.3–36.6; O2SAT 96–99
[2025-03-12] MEDS: IPRATROPIUM/ALBUTEROL 3 ML AMPUL.NEB INH ×4 (00:10→18:28)
[2025-03-12] MEDS: CYANOCOBALAMIN (VITAMIN B-12) 500 MCG TABLET 1000 MCG GT (08:28)
[2025-03-12] MEDS: CARVEDILOL 3.125 MG TABLET GT (08:28)
[2025-03-12] MEDS: MULTIVITAMIN 1 TAB TABLET GT (08:31)
[2025-03-12] MEDS: DEXLANSOPRAZOLE 30 MG GT (08:31)
[2025-03-12] MEDS: ATORVASTATIN 40 MG TABLET GT (21:08)
[2025-03-13] VITALS (9 sets, daily range): BP systolic 106–126; BP diastolic 48–87; PULSE 53–70; RESP 15–26; TEMP 36.2–36.8; O2SAT 97–99
[2025-03-13] MEDS: IPRATROPIUM/ALBUTEROL 3 ML AMPUL.NEB INH ×2 (00:18→06:42)
[2025-03-13] MEDS: CYANOCOBALAMIN (VITAMIN B-12) 500 MCG TABLET 1000 MCG GT (08:38)
[2025-03-13] MEDS: MULTIVITAMIN 1 TAB TABLET GT (08:38)
[2025-03-13] MEDS: DEXLANSOPRAZOLE 30 MG GT (08:38)
[2025-03-13] MEDS: CARVEDILOL 3.125 MG TABLET GT (21:10)
[2025-03-13] MEDS: ATORVASTATIN 40 MG TABLET GT (21:10)
[2025-03-14] VITALS (10 sets, daily range): BP systolic 102–138; BP diastolic 61–84; PULSE 54–83; RESP 14–24; TEMP 36–36.4; O2SAT 98–99
[2025-03-14] MEDS: IPRATROPIUM/ALBUTEROL 3 ML AMPUL.NEB INH ×3 (06:56→19:10)
[2025-03-14] MEDS: CYANOCOBALAMIN (VITAMIN B-12) 500 MCG TABLET 1000 MCG GT (08:57)
[2025-03-14] MEDS: MULTIVITAMIN 1 TAB TABLET GT (08:58)
[2025-03-14] MEDS: DEXLANSOPRAZOLE 30 MG GT (08:58)
[2025-03-14] MEDS: ATORVASTATIN 40 MG TABLET GT (21:13)
[2025-03-14] MEDS: CARVEDILOL 3.125 MG TABLET GT (21:13)
--- NOTE | 2025-03-14 22:09 | PD.SAPROG ---
Progress Note - SubAcute DIAGNOSIS (1) Chronic respiratory failure, unspecified whether with hypoxia or hypercapnia: Status: Chronic (2) Tracheostomy status: Status: Chronic (3) Chronic atrial fibrillation: Status: Chronic (4) Other sequelae of cerebral infarction: Status: Chronic (5) Persistent vegetative state: Status: Chronic (6) Hyperlipidemia, unspecified: Status: Chronic (7) G tube feedings: Status: Chronic (8) Diabetes type 2, controlled: Status: Chronic SUBJECTIVE Fever:: none GI:: none Shortness of Breath:: none Pain:: none OBJECTIVE Most recent vital signs: Last Vital Signs Temp 97.5 F 03/14/25 17:11 Pulse 83 03/14/25 21:13 Resp 18 03/14/25 19:11 BP 138/84 H 03/14/25 21:13 Pulse Ox 99 03/14/25 19:11 O2 Del Method Mechanical Ventilation 03/14/25 17:11 FiO2 30 03/14/25 19:11 Neurological:: PVS Speech:: none Answers questions:: no Respiratory:: lungs clear Cardiovascular: RRR Abdomen: soft and nontender Extremities:: deformities Tracheostomy:: to blow by Feeding per:: G tube ASSESSMENT & PLAN Assessment: Pt with multiple organ compromise and fully dependent for all care and with poor prognosis. VSS Tolerating tube feeding.. Pt has been on Ventilator since his last admission to acute care. No pain issues Plan: Current treatment reviewed and continued
[2025-03-15] VITALS (10 sets, daily range): BP systolic 112–156; BP diastolic 73–82; PULSE 65–94; RESP 18–21; TEMP 36.1–36.6; O2SAT 98–100
[2025-03-15] MEDS: IPRATROPIUM/ALBUTEROL 3 ML AMPUL.NEB INH ×4 (00:46→18:32)
[2025-03-15] MEDS: CARVEDILOL 3.125 MG TABLET GT ×2 (08:46→21:04)
[2025-03-15] MEDS: CYANOCOBALAMIN (VITAMIN B-12) 500 MCG TABLET 1000 MCG GT (08:47)
[2025-03-15] MEDS: DEXLANSOPRAZOLE 30 MG GT (08:48)
[2025-03-15] MEDS: MULTIVITAMIN 1 TAB TABLET GT (08:48)
[2025-03-15] MEDS: ATORVASTATIN 40 MG TABLET GT (21:03)
[2025-03-16] VITALS (10 sets, daily range): BP systolic 117–162; BP diastolic 60–87; PULSE 42–84; RESP 17–26; TEMP 36.1–36.6; O2SAT 97–100
[2025-03-16] MEDS: IPRATROPIUM/ALBUTEROL 3 ML AMPUL.NEB INH ×3 (00:44→12:55)
[2025-03-16] MEDS: CARVEDILOL 3.125 MG TABLET GT ×2 (08:51→21:15)
[2025-03-16] MEDS: CYANOCOBALAMIN (VITAMIN B-12) 500 MCG TABLET 1000 MCG GT (08:52)
[2025-03-16] MEDS: MULTIVITAMIN 1 TAB TABLET GT (08:53)
[2025-03-16] MEDS: DEXLANSOPRAZOLE 30 MG GT (08:53)
--- NOTE | 2025-03-16 11:34 | PC.SS ---
Resident is on vent with trach in place and GT for medication and nutrition. He does not have POA in place nor is he able to participate in process, his decision maker is his son Colt. 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 He will remain in current care and will have all subacute care needs met by staff. This SSD will continue to make daily contact with resident and will monitor for changes in mood and behavior.
[2025-03-16] MEDS: ATORVASTATIN 40 MG TABLET GT (21:15)
[2025-03-17] VITALS (11 sets, daily range): BP systolic 103–150; BP diastolic 59–76; PULSE 54–87; RESP 19–22; TEMP 36–36.6; O2SAT 96–99
[2025-03-17] MEDS: IPRATROPIUM/ALBUTEROL 3 ML AMPUL.NEB INH ×4 (00:15→18:10)
[2025-03-17] MEDS: CARVEDILOL 3.125 MG TABLET GT ×2 (08:55→20:40)
[2025-03-17] MEDS: DEXLANSOPRAZOLE 30 MG GT (08:56)
[2025-03-17] MEDS: MULTIVITAMIN 1 TAB TABLET GT (08:56)
[2025-03-17] MEDS: CYANOCOBALAMIN (VITAMIN B-12) 500 MCG TABLET 1000 MCG GT (08:56)
[2025-03-17] MEDS: ACETAMINOPHEN 325 MG TABLET GT (08:56)
[2025-03-17] MEDS: ATORVASTATIN 40 MG TABLET GT (20:39)
[2025-03-18] VITALS (12 sets, daily range): BP systolic 99–133; BP diastolic 64–83; PULSE 54–84; RESP 18–24; TEMP 36.1–36.5; O2SAT 99–100
[2025-03-18] MEDS: IPRATROPIUM/ALBUTEROL 3 ML AMPUL.NEB INH ×4 (00:31→19:36)
[2025-03-18] MEDS: CARVEDILOL 3.125 MG TABLET GT ×2 (08:33→23:33)
[2025-03-18] MEDS: DEXLANSOPRAZOLE 30 MG GT (08:34)
[2025-03-18] MEDS: CYANOCOBALAMIN (VITAMIN B-12) 500 MCG TABLET 1000 MCG GT (08:34)
[2025-03-18] MEDS: MULTIVITAMIN 1 TAB TABLET GT (08:34)
[2025-03-18] MEDS: MAGNESIUM HYDROXIDE 30 ML ORAL SUSP ML GT (08:36)
--- NOTE | 2025-03-18 22:36 | PD.SAPROG ---
Progress Note - SubAcute DIAGNOSIS (1) Chronic respiratory failure, unspecified whether with hypoxia or hypercapnia: Status: Chronic (2) Tracheostomy status: Status: Chronic (3) Chronic atrial fibrillation: Status: Chronic (4) Other sequelae of cerebral infarction: Status: Chronic (5) Persistent vegetative state: Status: Chronic (6) Hyperlipidemia, unspecified: Status: Chronic (7) G tube feedings: Status: Chronic (8) Diabetes type 2, controlled: Status: Chronic SUBJECTIVE Fever:: none GI:: none Shortness of Breath:: none Pain:: none OBJECTIVE Most recent vital signs: Last Vital Signs Temp 97.4 F 03/18/25 17:50 Pulse 78 03/18/25 19:36 Resp 24 H 03/18/25 19:36 BP 126/75 03/18/25 17:50 Pulse Ox 100 03/18/25 19:36 O2 Del Method Mechanical Ventilation 03/17/25 06:00 FiO2 30 03/18/25 19:36 Neurological:: PVS Speech:: none Answers questions:: no Respiratory:: lungs clear Cardiovascular: RRR Abdomen: soft and nontender Extremities:: deformities Tracheostomy:: to blow by Feeding per:: G tube ASSESSMENT & PLAN Assessment: Pt with multiple organ compromise and fully dependent for all care and with poor prognosis. VSS Tolerating tube feeding.. Pt has been on Ventilator since his last admission to acute care. No pain issues Plan: Current treatment reviewed and continued
[2025-03-18] MEDS: ATORVASTATIN 40 MG TABLET GT (23:32)
[2025-03-19] VITALS (8 sets, daily range): BP systolic 118–157; BP diastolic 72–82; PULSE 57–81; RESP 17–24; TEMP 36.2–36.6; O2SAT 94–100
[2025-03-19] MEDS: IPRATROPIUM/ALBUTEROL 3 ML AMPUL.NEB INH ×4 (00:24→18:44)
[2025-03-19] MEDS: CARVEDILOL 3.125 MG TABLET GT ×2 (08:38→21:44)
[2025-03-19] MEDS: CYANOCOBALAMIN (VITAMIN B-12) 500 MCG TABLET 1000 MCG GT (08:40)
[2025-03-19] MEDS: DEXLANSOPRAZOLE 30 MG GT (08:40)
[2025-03-19] MEDS: MULTIVITAMIN 1 TAB TABLET GT (08:41)
[2025-03-19] MEDS: ATORVASTATIN 40 MG TABLET GT (21:44)
[2025-03-20] VITALS (11 sets, daily range): BP systolic 98–131; BP diastolic 57–73; PULSE 50–85; RESP 17–25; TEMP 36.1–37; O2SAT 96–100
[2025-03-20] MEDS: IPRATROPIUM/ALBUTEROL 3 ML AMPUL.NEB INH ×4 (00:55→18:53)
[2025-03-20] MEDS: CARVEDILOL 3.125 MG TABLET GT ×2 (08:50→21:23)
[2025-03-20] MEDS: CYANOCOBALAMIN (VITAMIN B-12) 500 MCG TABLET 1000 MCG GT (08:51)
[2025-03-20] MEDS: DEXLANSOPRAZOLE 30 MG GT (08:51)
[2025-03-20] MEDS: MULTIVITAMIN 1 TAB TABLET GT (08:51)
[2025-03-20] MEDS: ATORVASTATIN 40 MG TABLET GT (21:24)
[2025-03-21] VITALS (10 sets, daily range): BP systolic 103–123; BP diastolic 56–76; PULSE 50–78; RESP 14–23; TEMP 36–36.9; O2SAT 98–100
[2025-03-21] MEDS: IPRATROPIUM/ALBUTEROL 3 ML AMPUL.NEB INH ×4 (00:51→18:28)
[2025-03-21] MEDS: CYANOCOBALAMIN (VITAMIN B-12) 500 MCG TABLET 1000 MCG GT (08:08)
[2025-03-21] MEDS: DEXLANSOPRAZOLE 30 MG GT (08:09)
[2025-03-21] MEDS: MULTIVITAMIN 1 TAB TABLET GT (08:09)
[2025-03-21] MEDS: CARVEDILOL 3.125 MG TABLET GT (21:39)
[2025-03-21] MEDS: ATORVASTATIN 40 MG TABLET GT (21:39)
[2025-03-22] VITALS (10 sets, daily range): BP systolic 99–128; BP diastolic 58–84; PULSE 51–76; RESP 18–25; TEMP 36.1–36.9; O2SAT 98–100
[2025-03-22] MEDS: IPRATROPIUM/ALBUTEROL 3 ML AMPUL.NEB INH ×4 (00:11→19:04)
[2025-03-22] MEDS: CARVEDILOL 3.125 MG TABLET GT (09:24)
[2025-03-22] MEDS: DEXLANSOPRAZOLE 30 MG GT (09:25)
[2025-03-22] MEDS: MULTIVITAMIN 1 TAB TABLET GT (09:25)
[2025-03-22] MEDS: CYANOCOBALAMIN (VITAMIN B-12) 500 MCG TABLET 1000 MCG GT (09:25)
--- NOTE | 2025-03-22 15:45 | PD.SAPROG ---
Progress Note - SubAcute DIAGNOSIS (1) Chronic respiratory failure, unspecified whether with hypoxia or hypercapnia: Status: Chronic (2) Tracheostomy status: Status: Chronic (3) Chronic atrial fibrillation: Status: Chronic (4) Other sequelae of cerebral infarction: Status: Chronic (5) Persistent vegetative state: Status: Chronic (6) Hyperlipidemia, unspecified: Status: Chronic (7) G tube feedings: Status: Chronic (8) Diabetes type 2, controlled: Status: Chronic SUBJECTIVE Fever:: none GI:: none Shortness of Breath:: none Pain:: none OBJECTIVE Most recent vital signs: Last Vital Signs Temp 97.2 F 03/22/25 12:00 Pulse 55 L 03/22/25 13:01 Resp 18 03/22/25 13:01 BP 104/71 03/22/25 12:00 Pulse Ox 100 03/22/25 13:01 O2 Del Method Mechanical Ventilation 03/22/25 06:00 FiO2 30 03/22/25 13:01 Neurological:: PVS Speech:: none Answers questions:: no Respiratory:: lungs clear Cardiovascular: RRR Abdomen: soft and nontender Extremities:: deformities Tracheostomy:: to blow by Feeding per:: G tube ASSESSMENT & PLAN Assessment: Pt with multiple organ compromise and fully dependent for all care and with poor prognosis. VSS Tolerating tube feeding.. Pt has been on Ventilator since his last admission to acute care. No pain issues Plan: Current treatment reviewed and continued
[2025-03-22] MEDS: ATORVASTATIN 40 MG TABLET GT (21:30)
[2025-03-23] VITALS (11 sets, daily range): BP systolic 106–131; BP diastolic 55–83; PULSE 50–73; RESP 17–22; TEMP 36–36.7; O2SAT 96–100
[2025-03-23] MEDS: IPRATROPIUM/ALBUTEROL 3 ML AMPUL.NEB INH ×3 (06:59→19:21)
[2025-03-23] MEDS: DEXLANSOPRAZOLE 30 MG GT (08:48)
[2025-03-23] MEDS: CYANOCOBALAMIN (VITAMIN B-12) 500 MCG TABLET 1000 MCG GT (08:48)
[2025-03-23] MEDS: MULTIVITAMIN 1 TAB TABLET GT (08:49)
--- NOTE | 2025-03-23 14:57 | PC.SS ---
Resident remains on vent with trach in place and GT for medication and nutrition. He does not have POA in place, family aware this service is offered in facility but resident is unable to participate in this services. He is represented by his son Colt as he is unable to make needs known. Resident will remain in current care and will continue to have all subacute care needs met by staff. This SSD will continue to make daily contact with resident and will offer support as needed.
[2025-03-23] MEDS: CARVEDILOL 3.125 MG TABLET GT (20:37)
[2025-03-23] MEDS: ATORVASTATIN 40 MG TABLET GT (20:37)
[2025-03-24] VITALS (10 sets, daily range): BP systolic 91–145; BP diastolic 61–86; PULSE 55–92; RESP 17–24; TEMP 36.1–36.7; O2SAT 97–100
[2025-03-24] MEDS: IPRATROPIUM/ALBUTEROL 3 ML AMPUL.NEB INH ×4 (01:02→19:51)
[2025-03-24] MEDS: DEXLANSOPRAZOLE 30 MG GT (09:25)
[2025-03-24] MEDS: MULTIVITAMIN 1 TAB TABLET GT (09:26)
[2025-03-24] MEDS: CYANOCOBALAMIN (VITAMIN B-12) 500 MCG TABLET 1000 MCG GT (09:26)
[2025-03-24] MEDS: ATORVASTATIN 40 MG TABLET GT (20:52)
[2025-03-24] MEDS: CARVEDILOL 3.125 MG TABLET GT (20:52)
[2025-03-25] VITALS (10 sets, daily range): BP systolic 98–127; BP diastolic 53–77; PULSE 50–73; RESP 17–24; TEMP 36.1–36.5; O2SAT 96–100
[2025-03-25] MEDS: IPRATROPIUM/ALBUTEROL 3 ML AMPUL.NEB INH ×4 (00:32→18:13)
[2025-03-25] MEDS: CARVEDILOL 3.125 MG TABLET GT (09:24)
[2025-03-25] MEDS: CYANOCOBALAMIN (VITAMIN B-12) 500 MCG TABLET 1000 MCG GT (09:25)
[2025-03-25] MEDS: MULTIVITAMIN 1 TAB TABLET GT (09:25)
[2025-03-25] MEDS: DEXLANSOPRAZOLE 30 MG GT (09:25)
[2025-03-25] MEDS: ATORVASTATIN 40 MG TABLET GT (21:21)
[2025-03-25] MEDS: MAGNESIUM HYDROXIDE 30 ML ORAL SUSP ML GT (21:30)
[2025-03-26] VITALS (10 sets, daily range): BP systolic 90–148; BP diastolic 60–82; PULSE 44–78; RESP 18–31; TEMP 36.1–36.8; O2SAT 98–100
[2025-03-26] MEDS: IPRATROPIUM/ALBUTEROL 3 ML AMPUL.NEB INH ×4 (00:48→18:28)
[2025-03-26] MEDS: CARVEDILOL 3.125 MG TABLET GT ×2 (08:45→20:03)
[2025-03-26] MEDS: DEXLANSOPRAZOLE 30 MG GT (08:46)
[2025-03-26] MEDS: CYANOCOBALAMIN (VITAMIN B-12) 500 MCG TABLET 1000 MCG GT (08:46)
[2025-03-26] MEDS: MULTIVITAMIN 1 TAB TABLET GT (08:46)
[2025-03-26] MEDS: ATORVASTATIN 40 MG TABLET GT (20:03)
--- NOTE | 2025-03-26 23:08 | PD.SAPROG ---
Progress Note - SubAcute DIAGNOSIS (1) Chronic respiratory failure, unspecified whether with hypoxia or hypercapnia: Status: Chronic (2) Tracheostomy status: Status: Chronic (3) Chronic atrial fibrillation: Status: Chronic (4) Other sequelae of cerebral infarction: Status: Chronic (5) Persistent vegetative state: Status: Chronic (6) Hyperlipidemia, unspecified: Status: Chronic (7) G tube feedings: Status: Chronic (8) Diabetes type 2, controlled: Status: Chronic SUBJECTIVE Fever:: none GI:: none Shortness of Breath:: none Pain:: none OBJECTIVE Most recent vital signs: Last Vital Signs Temp 97.9 F 03/26/25 18:00 Pulse 63 03/26/25 20:03 Resp 29 H 03/26/25 18:28 BP 148/81 H 03/26/25 20:03 Pulse Ox 98 03/26/25 18:28 O2 Del Method Mechanical Ventilation 03/26/25 11:49 FiO2 30 03/26/25 18:28 Neurological:: PVS Speech:: none Answers questions:: no Respiratory:: lungs clear Cardiovascular: RRR Abdomen: soft and nontender Extremities:: deformities Tracheostomy:: to blow by Feeding per:: G tube ASSESSMENT & PLAN Assessment: Pt with multiple organ compromise and fully dependent for all care and with poor prognosis. VSS Tolerating tube feeding.. Pt has been on Ventilator since his last admission to acute care. No pain issues Plan: Current treatment reviewed and continued
[2025-03-27] VITALS (10 sets, daily range): BP systolic 97–134; BP diastolic 52–74; PULSE 49–80; RESP 16–29; TEMP 36–36.2; O2SAT 96–100
[2025-03-27] MEDS: IPRATROPIUM/ALBUTEROL 3 ML AMPUL.NEB INH ×4 (00:33→18:31)
[2025-03-27] MEDS: DEXLANSOPRAZOLE 30 MG GT (08:45)
[2025-03-27] MEDS: CYANOCOBALAMIN (VITAMIN B-12) 500 MCG TABLET 1000 MCG GT (08:45)
[2025-03-27] MEDS: MULTIVITAMIN 1 TAB TABLET GT (08:45)
[2025-03-27] MEDS: ATORVASTATIN 40 MG TABLET GT (21:20)
[2025-03-27] MEDS: CARVEDILOL 3.125 MG TABLET GT (21:20)
[2025-03-28] VITALS (11 sets, daily range): BP systolic 99–118; BP diastolic 53–75; PULSE 55–80; RESP 15–29; TEMP 36.1–36.3; O2SAT 98–100
[2025-03-28] MEDS: IPRATROPIUM/ALBUTEROL 3 ML AMPUL.NEB INH ×4 (00:56→17:35)
[2025-03-28] MEDS: CARVEDILOL 3.125 MG TABLET GT (08:42)
[2025-03-28] MEDS: MULTIVITAMIN 1 TAB TABLET GT (08:43)
[2025-03-28] MEDS: CYANOCOBALAMIN (VITAMIN B-12) 500 MCG TABLET 1000 MCG GT (08:43)
--- NOTE | 2025-03-28 14:25 | PD.SAPROG ---
Progress Note - SubAcute DIAGNOSIS (1) Chronic respiratory failure, unspecified whether with hypoxia or hypercapnia: Status: Chronic (2) Tracheostomy status: Status: Chronic (3) Chronic atrial fibrillation: Status: Chronic (4) Other sequelae of cerebral infarction: Status: Chronic (5) Persistent vegetative state: Status: Chronic (6) Hyperlipidemia, unspecified: Status: Chronic (7) G tube feedings: Status: Chronic (8) Diabetes type 2, controlled: Status: Chronic SUBJECTIVE Fever:: none GI:: none Shortness of Breath:: none Pain:: none OBJECTIVE Most recent vital signs: Last Vital Signs Temp 97.7 F 03/31/25 17:04 Pulse 56 L 03/31/25 17:04 Resp 20 03/31/25 17:04 BP 100/72 03/31/25 17:04 Pulse Ox 99 03/31/25 17:04 O2 Del Method Mechanical Ventilation 03/31/25 17:04 FiO2 30 03/31/25 12:30 Neurological:: PVS Speech:: none Answers questions:: no Respiratory:: lungs clear Cardiovascular: RRR Abdomen: soft and nontender Extremities:: deformities Tracheostomy:: to blow by Feeding per:: G tube ASSESSMENT & PLAN Assessment: Pt with multiple organ compromise and fully dependent for all care and with poor prognosis. VSS Tolerating tube feeding.. Pt has been on Ventilator since his last admission to acute care. No pain issues Plan: Current treatment reviewed and continued
[2025-03-28] MEDS: ATORVASTATIN 40 MG TABLET GT (21:17)
[2025-03-29] VITALS (9 sets, daily range): BP systolic 107–144; BP diastolic 64–84; PULSE 52–80; RESP 14–19; TEMP 36.2–36.4; O2SAT 95–99
[2025-03-29] MEDS: IPRATROPIUM/ALBUTEROL 3 ML AMPUL.NEB INH ×4 (06:25→18:23)
[2025-03-29] MEDS: MULTIVITAMIN 1 TAB TABLET GT (08:34)
[2025-03-29] MEDS: CARVEDILOL 3.125 MG TABLET GT ×2 (08:34→21:07)
[2025-03-29] MEDS: CYANOCOBALAMIN (VITAMIN B-12) 500 MCG TABLET 1000 MCG GT (08:34)
[2025-03-29] MEDS: ATORVASTATIN 40 MG TABLET GT (21:07)
[2025-03-30] VITALS (10 sets, daily range): BP systolic 98–149; BP diastolic 51–74; PULSE 51–71; RESP 16–21; TEMP 36.1–36.2; O2SAT 98–100
[2025-03-30] MEDS: IPRATROPIUM/ALBUTEROL 3 ML AMPUL.NEB INH ×4 (00:51→18:38)
[2025-03-30] MEDS: MULTIVITAMIN 1 TAB TABLET GT (09:43)
[2025-03-30] MEDS: CARVEDILOL 3.125 MG TABLET GT ×2 (09:43→21:05)
[2025-03-30] MEDS: CYANOCOBALAMIN (VITAMIN B-12) 500 MCG TABLET 1000 MCG GT (09:43)
[2025-03-30] MEDS: DEXLANSOPRAZOLE 30 MG GT (09:43)
[2025-03-30] MEDS: ATORVASTATIN 40 MG TABLET GT (21:05)
[2025-03-31] VITALS (10 sets, daily range): BP systolic 94–122; BP diastolic 52–72; PULSE 56–74; RESP 16–23; TEMP 36.2–36.5; O2SAT 96–99
[2025-03-31] MEDS: IPRATROPIUM/ALBUTEROL 3 ML AMPUL.NEB INH ×4 (01:01→17:32)
[2025-03-31] MEDS: DEXLANSOPRAZOLE 30 MG GT (08:15)
[2025-03-31] MEDS: CYANOCOBALAMIN (VITAMIN B-12) 500 MCG TABLET 1000 MCG GT (08:15)
[2025-03-31] MEDS: MULTIVITAMIN 1 TAB TABLET GT (08:16)
[2025-03-31] MEDS: ATORVASTATIN 40 MG TABLET GT (21:15)
[2025-03-31] MEDS: CARVEDILOL 3.125 MG TABLET GT (21:15)
[2025-03-31] MEDS: MAGNESIUM HYDROXIDE 30 ML ORAL SUSP ML GT (23:05)
[2025-04-01] VITALS (10 sets, daily range): BP systolic 108–130; BP diastolic 60–80; PULSE 55–80; RESP 17–21; TEMP 36.2–36.4; O2SAT 95–99
[2025-04-01] MEDS: IPRATROPIUM/ALBUTEROL 3 ML AMPUL.NEB INH ×4 (00:50→19:04)
[2025-04-01] MEDS: CARVEDILOL 3.125 MG TABLET GT ×2 (08:57→21:03)
[2025-04-01] MEDS: CYANOCOBALAMIN (VITAMIN B-12) 500 MCG TABLET 1000 MCG GT (08:58)
[2025-04-01] MEDS: DEXLANSOPRAZOLE 30 MG GT (08:59)
[2025-04-01] MEDS: MULTIVITAMIN 1 TAB TABLET GT (08:59)
[2025-04-01] MEDS: BISACODYL 10 MG SUPP.RECT PR (09:00)
[2025-04-01] MEDS: ATORVASTATIN 40 MG TABLET GT (21:03)
[2025-04-02] VITALS (9 sets, daily range): BP systolic 102–119; BP diastolic 59–71; PULSE 56–81; RESP 18–24; TEMP 36.1–36.9; O2SAT 94–99
[2025-04-02] MEDS: IPRATROPIUM/ALBUTEROL 3 ML AMPUL.NEB INH ×3 (06:34→18:21)
[2025-04-02] MEDS: CYANOCOBALAMIN (VITAMIN B-12) 500 MCG TABLET 1000 MCG GT (09:01)
[2025-04-02] MEDS: DEXLANSOPRAZOLE 30 MG GT (09:02)
[2025-04-02] MEDS: MULTIVITAMIN 1 TAB TABLET GT (09:02)
--- NOTE | 2025-04-02 19:49 | PD.SAPROG ---
Progress Note - SubAcute DIAGNOSIS (1) Chronic respiratory failure, unspecified whether with hypoxia or hypercapnia: Status: Chronic (2) Tracheostomy status: Status: Chronic (3) Chronic atrial fibrillation: Status: Chronic (4) Other sequelae of cerebral infarction: Status: Chronic (5) Persistent vegetative state: Status: Chronic (6) Hyperlipidemia, unspecified: Status: Chronic (7) G tube feedings: Status: Chronic (8) Diabetes type 2, controlled: Status: Chronic SUBJECTIVE Fever:: none GI:: none Shortness of Breath:: none Pain:: none OBJECTIVE Most recent vital signs: Last Vital Signs Temp 97.7 F 04/02/25 17:44 Pulse 80 04/02/25 17:44 Resp 18 04/02/25 17:44 BP 102/66 04/02/25 17:44 Pulse Ox 94 L 04/02/25 17:44 O2 Del Method Mechanical Ventilation 04/02/25 17:44 FiO2 30 04/02/25 12:37 Neurological:: PVS Speech:: none Answers questions:: no Respiratory:: lungs clear Cardiovascular: RRR Abdomen: soft and nontender Extremities:: deformities Tracheostomy:: to blow by Feeding per:: G tube ASSESSMENT & PLAN Assessment: Pt with multiple organ compromise and fully dependent for all care and with poor prognosis. VSS Tolerating tube feeding.. Pt has been on Ventilator since his last admission to acute care. No pain issues Plan: Current treatment reviewed and continued
[2025-04-02] MEDS: ATORVASTATIN 40 MG TABLET GT (21:11)
[2025-04-02] MEDS: CARVEDILOL 3.125 MG TABLET GT (21:11)
[2025-04-03] VITALS (10 sets, daily range): BP systolic 95–120; BP diastolic 56–83; PULSE 55–80; RESP 16–22; TEMP 36–36.6; O2SAT 97–100
[2025-04-03] MEDS: IPRATROPIUM/ALBUTEROL 3 ML AMPUL.NEB INH ×3 (00:30→18:27)
[2025-04-03] MEDS: CYANOCOBALAMIN (VITAMIN B-12) 500 MCG TABLET 1000 MCG GT (09:35)
[2025-04-03] MEDS: CARVEDILOL 3.125 MG TABLET GT (09:35)
[2025-04-03] MEDS: MULTIVITAMIN 1 TAB TABLET GT (09:35)
[2025-04-03] MEDS: DEXLANSOPRAZOLE 30 MG GT (09:35)
--- NOTE | 2025-04-03 16:37 | PC.NURSE ---
Order received from Dr Ramires to start weaning resident from mechanical ventilator . BB during the day and mechanical ventilator at night. RT on duty made aware.
[2025-04-03] MEDS: ATORVASTATIN 40 MG TABLET GT (21:15)
[2025-04-04] VITALS (12 sets, daily range): BP systolic 102–136; BP diastolic 62–84; PULSE 54–76; RESP 16–27; TEMP 35.9–36.7; O2SAT 99–100
[2025-04-04] MEDS: IPRATROPIUM/ALBUTEROL 3 ML AMPUL.NEB INH ×4 (00:08→17:54)
--- NOTE | 2025-04-04 08:35 | PC.NURSE ---
TRach noted to be dislodged at 0725. Re-inserted without complications. VS stable 136/70, HR54, (normal trend for pt.) 27, 99%. Family notified. MD notified. Resident stable at this time. Will continue to monitor.
[2025-04-04] MEDS: CYANOCOBALAMIN (VITAMIN B-12) 500 MCG TABLET 1000 MCG GT (08:59)
[2025-04-04] MEDS: CARVEDILOL 3.125 MG TABLET GT (08:59)
[2025-04-04] MEDS: MULTIVITAMIN 1 TAB TABLET GT (09:00)
[2025-04-04] MEDS: DEXLANSOPRAZOLE 30 MG GT (09:00)
[2025-04-04] MEDS: MAGNESIUM HYDROXIDE 30 ML ORAL SUSP ML GT (09:01)
[2025-04-04] MEDS: ATORVASTATIN 40 MG TABLET GT (21:22)
[2025-04-05] VITALS (10 sets, daily range): BP systolic 96–132; BP diastolic 46–76; PULSE 54–81; RESP 16–20; TEMP 36.1–36.3; O2SAT 95–100
[2025-04-05] MEDS: IPRATROPIUM/ALBUTEROL 3 ML AMPUL.NEB INH ×4 (00:05→18:43)
[2025-04-05] MEDS: DEXLANSOPRAZOLE 30 MG GT (09:10)
[2025-04-05] MEDS: CARVEDILOL 3.125 MG TABLET GT ×2 (09:10→21:15)
[2025-04-05] MEDS: CYANOCOBALAMIN (VITAMIN B-12) 500 MCG TABLET 1000 MCG GT (09:10)
[2025-04-05] MEDS: MULTIVITAMIN 1 TAB TABLET GT (09:10)
[2025-04-05] MEDS: ATORVASTATIN 40 MG TABLET GT (21:15)
[2025-04-06] VITALS (9 sets, daily range): BP systolic 98–154; BP diastolic 54–79; PULSE 56–71; RESP 16–21; TEMP 36.2–36.5; O2SAT 96–100; BMI 23.3
[2025-04-06] MEDS: IPRATROPIUM/ALBUTEROL 3 ML AMPUL.NEB INH ×4 (00:17→18:41)
[2025-04-06] MEDS: CYANOCOBALAMIN (VITAMIN B-12) 500 MCG TABLET 1000 MCG GT (09:29)
[2025-04-06] MEDS: DEXLANSOPRAZOLE 30 MG GT (09:30)
[2025-04-06] MEDS: MULTIVITAMIN 1 TAB TABLET GT (09:31)
--- NOTE | 2025-04-06 11:17 | PC.SS ---
Resident remains on vent with trach in place and GT for medication and nutrition. Resident remains represented by his son as he is unable to make needs known or make decision for self. Resident does not have POA in place, RP is aware this service is provided in facility but resident is unable to participate. Resident will remain in current care and will continue to have all subacute care needs met by staff. This SSD will make daily contact with resident and will offer support as needed.
--- NOTE | 2025-04-06 18:19 | PD.SAPROG ---
Progress Note - SubAcute DIAGNOSIS (1) Chronic respiratory failure, unspecified whether with hypoxia or hypercapnia: Status: Chronic (2) Tracheostomy status: Status: Chronic (3) Chronic atrial fibrillation: Status: Chronic (4) Other sequelae of cerebral infarction: Status: Chronic (5) Persistent vegetative state: Status: Chronic (6) Hyperlipidemia, unspecified: Status: Chronic (7) G tube feedings: Status: Chronic (8) Diabetes type 2, controlled: Status: Chronic SUBJECTIVE Fever:: none GI:: none Shortness of Breath:: none Pain:: none OBJECTIVE Most recent vital signs: Last Vital Signs Temp 97.5 F 04/06/25 17:27 Pulse 69 04/06/25 17:27 Resp 17 04/06/25 17:27 BP 153/54 H 04/06/25 17:27 Pulse Ox 96 04/06/25 17:27 O2 Del Method Mechanical Ventilation 04/05/25 06:00 FiO2 30 04/06/25 12:09 Neurological:: PVS Speech:: none Answers questions:: no Respiratory:: lungs clear Cardiovascular: RRR Abdomen: soft and nontender Extremities:: deformities Tracheostomy:: to blow by Feeding per:: G tube ASSESSMENT & PLAN Assessment: Pt with multiple organ compromise and fully dependent for all care and with poor prognosis. VSS Tolerating tube feeding.. Pt has been on Ventilator since his last admission to acute care. No pain issues Plan: Current treatment reviewed and continued
[2025-04-06] MEDS: ATORVASTATIN 40 MG TABLET GT (21:22)
[2025-04-06] MEDS: CARVEDILOL 3.125 MG TABLET GT (21:22)
[2025-04-07] VITALS (10 sets, daily range): BP systolic 99–126; BP diastolic 50–84; PULSE 56–82; RESP 16–19; TEMP 36.1–36.5; O2SAT 96–100
[2025-04-07] MEDS: IPRATROPIUM/ALBUTEROL 3 ML AMPUL.NEB INH ×4 (00:52→18:33)
[2025-04-07] MEDS: CYANOCOBALAMIN (VITAMIN B-12) 500 MCG TABLET 1000 MCG GT (08:33)
[2025-04-07] MEDS: DEXLANSOPRAZOLE 30 MG GT (08:34)
[2025-04-07] MEDS: MULTIVITAMIN 1 TAB TABLET GT (08:34)
[2025-04-07] MEDS: CARVEDILOL 3.125 MG TABLET GT (21:16)
[2025-04-07] MEDS: ATORVASTATIN 40 MG TABLET GT (21:16)
[2025-04-08] VITALS (10 sets, daily range): BP systolic 96–132; BP diastolic 52–71; PULSE 45–72; RESP 16–23; TEMP 36.1–36.7; O2SAT 98–100
[2025-04-08] MEDS: IPRATROPIUM/ALBUTEROL 3 ML AMPUL.NEB INH ×4 (01:31→19:20)
[2025-04-08] MEDS: CYANOCOBALAMIN (VITAMIN B-12) 500 MCG TABLET 1000 MCG GT (08:57)
[2025-04-08] MEDS: DEXLANSOPRAZOLE 30 MG GT (08:58)
[2025-04-08] MEDS: MULTIVITAMIN 1 TAB TABLET GT (08:58)
[2025-04-08] MEDS: ATORVASTATIN 40 MG TABLET GT (21:15)
[2025-04-08] MEDS: CARVEDILOL 3.125 MG TABLET GT (21:15)
[2025-04-09] VITALS (9 sets, daily range): BP systolic 95–136; BP diastolic 62–74; PULSE 55–75; RESP 16–20; TEMP 36.3–36.4; O2SAT 97–100
[2025-04-09] MEDS: IPRATROPIUM/ALBUTEROL 3 ML AMPUL.NEB INH ×4 (00:44→19:47)
[2025-04-09] MEDS: CARVEDILOL 3.125 MG TABLET GT (09:00)
[2025-04-09] MEDS: CYANOCOBALAMIN (VITAMIN B-12) 500 MCG TABLET 1000 MCG GT (09:00)
[2025-04-09] MEDS: MULTIVITAMIN 1 TAB TABLET GT (09:01)
[2025-04-09] MEDS: DEXLANSOPRAZOLE 30 MG GT (09:01)
[2025-04-09] MEDS: ATORVASTATIN 40 MG TABLET GT (20:49)
[2025-04-09] MEDS: MAGNESIUM HYDROXIDE 30 ML ORAL SUSP ML GT (23:00)
[2025-04-10] VITALS (11 sets, daily range): BP systolic 101–132; BP diastolic 62–78; PULSE 51–78; RESP 17–23; TEMP 36.1–36.6; O2SAT 96–99
[2025-04-10] MEDS: IPRATROPIUM/ALBUTEROL 3 ML AMPUL.NEB INH ×4 (00:29→19:12)
[2025-04-10] MEDS: CARVEDILOL 3.125 MG TABLET GT (08:23)
[2025-04-10] MEDS: CYANOCOBALAMIN (VITAMIN B-12) 500 MCG TABLET 1000 MCG GT (08:23)
[2025-04-10] MEDS: DEXLANSOPRAZOLE 30 MG GT (08:24)
[2025-04-10] MEDS: MULTIVITAMIN 1 TAB TABLET GT (08:25)
[2025-04-10] MEDS: BISACODYL 10 MG SUPP.RECT PR (11:09)
[2025-04-10] MEDS: ATORVASTATIN 40 MG TABLET GT (21:16)
--- NOTE | 2025-04-10 21:28 | PD.SAPROG ---
Progress Note - SubAcute DIAGNOSIS (1) Chronic respiratory failure, unspecified whether with hypoxia or hypercapnia: Status: Chronic (2) Tracheostomy status: Status: Chronic (3) Chronic atrial fibrillation: Status: Chronic (4) Other sequelae of cerebral infarction: Status: Chronic (5) Persistent vegetative state: Status: Chronic (6) Hyperlipidemia, unspecified: Status: Chronic (7) G tube feedings: Status: Chronic (8) Diabetes type 2, controlled: Status: Chronic SUBJECTIVE Fever:: none GI:: none Shortness of Breath:: none Pain:: none OBJECTIVE Most recent vital signs: Last Vital Signs Temp 97.5 F 04/10/25 17:27 Pulse 51 L 04/10/25 21:16 Resp 18 04/10/25 19:12 BP 101/63 04/10/25 21:16 Pulse Ox 98 04/10/25 19:12 O2 Del Method Mechanical Ventilation 04/10/25 17:27 FiO2 30 04/10/25 19:12 Neurological:: PVS Speech:: none Answers questions:: no Respiratory:: lungs clear Cardiovascular: RRR Abdomen: soft and nontender Extremities:: deformities Tracheostomy:: to blow by Feeding per:: G tube ASSESSMENT & PLAN Assessment: Pt with multiple organ compromise and fully dependent for all care and with poor prognosis. VSS Tolerating tube feeding.. Pt has been on Ventilator since his last admission to acute care. No pain issues Plan: Current treatment reviewed and continued
[2025-04-11] VITALS (11 sets, daily range): BP systolic 104–135; BP diastolic 64–74; PULSE 50–71; RESP 16–24; TEMP 36.1–36.5; O2SAT 95–99
[2025-04-11] MEDS: IPRATROPIUM/ALBUTEROL 3 ML AMPUL.NEB INH ×4 (00:34→16:40)
[2025-04-11] MEDS: CARVEDILOL 3.125 MG TABLET GT (08:49)
[2025-04-11] MEDS: MULTIVITAMIN 1 TAB TABLET GT (08:50)
[2025-04-11] MEDS: DEXLANSOPRAZOLE 30 MG GT (08:50)
[2025-04-11] MEDS: CYANOCOBALAMIN (VITAMIN B-12) 500 MCG TABLET 1000 MCG GT (08:50)
[2025-04-11] MEDS: ATORVASTATIN 40 MG TABLET GT (21:16)
[2025-04-12] VITALS (10 sets, daily range): BP systolic 103–116; BP diastolic 57–68; PULSE 61–84; RESP 15–21; TEMP 35.7–36.3; O2SAT 95–99
[2025-04-12] MEDS: IPRATROPIUM/ALBUTEROL 3 ML AMPUL.NEB INH ×3 (00:53→12:15)
[2025-04-12] MEDS: CYANOCOBALAMIN (VITAMIN B-12) 500 MCG TABLET 1000 MCG GT (08:47)
[2025-04-12] MEDS: CARVEDILOL 3.125 MG TABLET GT (08:47)
[2025-04-12] MEDS: MULTIVITAMIN 1 TAB TABLET GT (08:48)
[2025-04-12] MEDS: DEXLANSOPRAZOLE 30 MG GT (08:48)
[2025-04-12] MEDS: ATORVASTATIN 40 MG TABLET GT (21:18)
[2025-04-13] VITALS (11 sets, daily range): BP systolic 90–139; BP diastolic 48–75; PULSE 56–98; RESP 17–23; TEMP 36.2–37.6; O2SAT 96–100
[2025-04-13] MEDS: CYANOCOBALAMIN (VITAMIN B-12) 500 MCG TABLET 1000 MCG GT (08:43)
[2025-04-13] MEDS: DEXLANSOPRAZOLE 30 MG GT (08:43)
[2025-04-13] MEDS: MULTIVITAMIN 1 TAB TABLET GT (08:43)
[2025-04-13] MEDS: ONDANSETRON HCL 4 MG TABLET PO (10:01)
--- NOTE | 2025-04-13 16:15 | PC.SS ---
Resident remains on vent with trach in place and GT for medication and nutrition. He is awake with unclear speech able to answer simple questions. His son Colt is his employer relations representative. He does not have POA in place, Colt is aware this service is provided in house but is unable to participate due to absence of speech. Resident will remain in current care as he has no changes in care or condition, he will continue to have all subacute care needs met by staff. This SSD will continue to make daily contact with resident and will monitor for changes in mood and behavior.
--- NOTE | 2025-04-13 19:11 | PC.NURSE ---
Late Entry for 04/13/25@0900: During med pass, this health underwriter was passing meds, when TUG CAPTAIN call out to her by name, asking for assistance with this pt. Upon entering the room, pt appeared dusky in color to his face and around head. It appears as if pt wasn't breathing or wasn't getting enough oxygen. This health underwriter quickly noticed that pt had a large amount of thick whitish yellow secretions coming up his treaheal tube as far as this health underwriter could see. Gas Line Servicer immediately started suctioning pt agressively to remove as much secretions as possible. Pt's nurse had just gone on her break. This health underwriter instructed TUG CAPTAIN to call RT immediately and was called to the pt's bedside. After suctioning pt numbers times, pt's color started coming back to his face, as RT arrived to bedside. Soon after pt started breathing normally, pt started to throwup. Pt threwup about three times. Feeding was placed on hold for about 30 mins. RT inflated pt's cuff which was not really inflated. RT believed that pt might have aspirated. After pt's nurse returned from break, report was given to her.
[2025-04-13] MEDS: ATORVASTATIN 40 MG TABLET GT (21:06)
[2025-04-13] MEDS: CARVEDILOL 3.125 MG TABLET GT (21:06)
[2025-04-14] VITALS (11 sets, daily range): BP systolic 98–121; BP diastolic 57–79; PULSE 54–80; RESP 15–20; TEMP 36.1–36.4; O2SAT 95–100
[2025-04-14] MEDS: IPRATROPIUM/ALBUTEROL 3 ML AMPUL.NEB INH ×4 (01:07→18:51)
[2025-04-14] MEDS: DEXLANSOPRAZOLE 30 MG GT (09:34)
[2025-04-14] MEDS: CYANOCOBALAMIN (VITAMIN B-12) 500 MCG TABLET 1000 MCG GT (09:35)
[2025-04-14] MEDS: MULTIVITAMIN 1 TAB TABLET GT (09:38)
[2025-04-14] MEDS: ATORVASTATIN 40 MG TABLET GT (20:57)
[2025-04-14] MEDS: CARVEDILOL 3.125 MG TABLET GT (20:58)
--- NOTE | 2025-04-14 22:01 | PD.SAPROG ---
Progress Note - SubAcute DIAGNOSIS (1) Chronic respiratory failure, unspecified whether with hypoxia or hypercapnia: Status: Chronic (2) Tracheostomy status: Status: Chronic (3) Chronic atrial fibrillation: Status: Chronic (4) Other sequelae of cerebral infarction: Status: Chronic (5) Persistent vegetative state: Status: Chronic (6) Hyperlipidemia, unspecified: Status: Chronic (7) G tube feedings: Status: Chronic (8) Diabetes type 2, controlled: Status: Chronic SUBJECTIVE Fever:: none GI:: none Shortness of Breath:: none Pain:: none OBJECTIVE Most recent vital signs: Last Vital Signs Temp 97.1 F 04/14/25 18:00 Pulse 71 04/14/25 20:58 Resp 19 04/14/25 18:51 BP 121/79 04/14/25 20:58 Pulse Ox 100 04/14/25 18:51 O2 Del Method Blow-by 04/14/25 06:00 FiO2 30 04/14/25 18:51 Neurological:: PVS Speech:: none Answers questions:: no Respiratory:: lungs clear Cardiovascular: RRR Abdomen: soft and nontender Extremities:: deformities Tracheostomy:: to blow by Feeding per:: G tube ASSESSMENT & PLAN Assessment: Pt with multiple organ compromise and fully dependent for all care and with poor prognosis. VSS Tolerating tube feeding.. Pt has been on Ventilator since his last admission to acute care. No pain issues Plan: Current treatment reviewed and continued
[2025-04-15] VITALS (10 sets, daily range): BP systolic 104–136; BP diastolic 54–81; PULSE 55–92; RESP 17–30; TEMP 36.1–36.6; O2SAT 97–100
[2025-04-15] MEDS: IPRATROPIUM/ALBUTEROL 3 ML AMPUL.NEB INH ×4 (00:52→18:30)
[2025-04-15] MEDS: CARVEDILOL 3.125 MG TABLET GT ×2 (08:34→20:58)
[2025-04-15] MEDS: DEXLANSOPRAZOLE 30 MG GT (08:36)
[2025-04-15] MEDS: MULTIVITAMIN 1 TAB TABLET GT (08:36)
[2025-04-15] MEDS: CYANOCOBALAMIN (VITAMIN B-12) 500 MCG TABLET 1000 MCG GT (08:36)
[2025-04-15] MEDS: ATORVASTATIN 40 MG TABLET GT (20:58)
[2025-04-16] VITALS (9 sets, daily range): BP systolic 93–125; BP diastolic 52–78; PULSE 52–77; RESP 19–26; TEMP 36–36.7; O2SAT 98–99
[2025-04-16] MEDS: IPRATROPIUM/ALBUTEROL 3 ML AMPUL.NEB INH ×3 (01:22→18:46)
[2025-04-16] MEDS: MAGNESIUM HYDROXIDE 30 ML ORAL SUSP ML GT (06:27)
[2025-04-16] MEDS: CARVEDILOL 3.125 MG TABLET GT (08:29)
[2025-04-16] MEDS: DEXLANSOPRAZOLE 30 MG GT (08:31)
[2025-04-16] MEDS: MULTIVITAMIN 1 TAB TABLET GT (08:31)
[2025-04-16] MEDS: CYANOCOBALAMIN (VITAMIN B-12) 500 MCG TABLET 1000 MCG GT (08:31)
[2025-04-16] MEDS: BISACODYL 10 MG SUPP.RECT PR (13:46)
[2025-04-16] MEDS: ATORVASTATIN 40 MG TABLET GT (21:39)
[2025-04-17] VITALS (9 sets, daily range): BP systolic 111–123; BP diastolic 66–79; PULSE 46–76; RESP 18–24; TEMP 36.1–36.6; O2SAT 99
[2025-04-17] MEDS: IPRATROPIUM/ALBUTEROL 3 ML AMPUL.NEB INH ×4 (00:56→18:49)
[2025-04-17] MEDS: CARVEDILOL 3.125 MG TABLET GT ×2 (09:14→21:29)
[2025-04-17] MEDS: CYANOCOBALAMIN (VITAMIN B-12) 500 MCG TABLET 1000 MCG GT (09:15)
[2025-04-17] MEDS: MULTIVITAMIN 1 TAB TABLET GT (09:16)
[2025-04-17] MEDS: DEXLANSOPRAZOLE 30 MG GT (09:16)
[2025-04-17] MEDS: ATORVASTATIN 40 MG TABLET GT (21:29)
[2025-04-18] VITALS (10 sets, daily range): BP systolic 112–132; BP diastolic 66–70; PULSE 60–107; RESP 17–24; TEMP 36.1–36.3; O2SAT 99–100
[2025-04-18] MEDS: IPRATROPIUM/ALBUTEROL 3 ML AMPUL.NEB INH ×4 (01:07→19:29)
[2025-04-18] MEDS: CARVEDILOL 3.125 MG TABLET GT ×2 (08:59→21:21)
[2025-04-18] MEDS: CYANOCOBALAMIN (VITAMIN B-12) 500 MCG TABLET 1000 MCG GT (09:00)
[2025-04-18] MEDS: DEXLANSOPRAZOLE 30 MG GT (09:00)
[2025-04-18] MEDS: MULTIVITAMIN 1 TAB TABLET GT (09:00)
[2025-04-18] MEDS: ATORVASTATIN 40 MG TABLET GT (21:22)
--- NOTE | 2025-04-18 23:01 | ESPR_ITS ---
Progress Note - SubAcute DIAGNOSIS (1) Chronic respiratory failure, unspecified whether with hypoxia or hypercapnia: Status: Chronic (2) Tracheostomy status: Status: Chronic (3) Chronic atrial fibrillation: Status: Chronic (4) Other sequelae of cerebral infarction: Status: Chronic (5) Persistent vegetative state: Status: Chronic (6) Hyperlipidemia, unspecified: Status: Chronic (7) G tube feedings: Status: Chronic (8) Diabetes type 2, controlled: Status: Chronic SUBJECTIVE Fever:: none GI:: none Shortness of Breath:: none Pain:: none OBJECTIVE Most recent vital signs: Last Vital Signs Temp 97.2 F 04/18/25 17:22 Pulse 60 04/18/25 21:21 Resp 24 H 04/18/25 19:30 BP 115/68 04/18/25 21:21 Pulse Ox 100 04/18/25 19:30 O2 Del Method Mechanical Ventilation 04/18/25 17:22 FiO2 30 04/18/25 19:30 Neurological:: PVS Speech:: none Answers questions:: no Respiratory:: lungs clear Cardiovascular: RRR Abdomen: soft and nontender Extremities:: deformities Tracheostomy:: to blow by Feeding per:: G tube ASSESSMENT & PLAN Assessment: Pt with multiple organ compromise and fully dependent for all care and with poor prognosis. VSS Tolerating tube feeding.. Pt has been on Ventilator since his last admission to acute care. Not weanable. No pain issues Plan: Current treatment reviewed and continued t
[2025-04-19] VITALS (10 sets, daily range): BP systolic 103–137; BP diastolic 60–74; PULSE 63–91; RESP 18–24; TEMP 36.6–36.9; O2SAT 98–100
[2025-04-19] MEDS: IPRATROPIUM/ALBUTEROL 3 ML AMPUL.NEB INH ×4 (00:24→16:31)
[2025-04-19] MEDS: MULTIVITAMIN 1 TAB TABLET GT (08:48)
[2025-04-19] MEDS: CARVEDILOL 3.125 MG TABLET GT ×2 (08:48→21:38)
[2025-04-19] MEDS: DEXLANSOPRAZOLE 30 MG GT (08:48)
[2025-04-19] MEDS: CYANOCOBALAMIN (VITAMIN B-12) 500 MCG TABLET 1000 MCG GT (08:48)
--- NOTE | 2025-04-19 10:26 | PC.SS ---
Resident remains in current care on vent with trach in place and GT for medication and nutrition. Resident is unable to make needs known, his son Colt is his decision maker. Resident does not have POA in place nor is he able to participate in this process. Resident will continue to have all subacute care needs met by staff and will continue to have daily room visits.
[2025-04-19] MEDS: ATORVASTATIN 40 MG TABLET GT (21:37)
[2025-04-20] VITALS (10 sets, daily range): BP systolic 113–139; BP diastolic 61–82; PULSE 51–78; RESP 18–25; TEMP 36.1–36.8; O2SAT 97–99
[2025-04-20] MEDS: IPRATROPIUM/ALBUTEROL 3 ML AMPUL.NEB INH ×4 (00:02→17:19)
[2025-04-20] MEDS: CARVEDILOL 3.125 MG TABLET GT (09:07)
[2025-04-20] MEDS: DEXLANSOPRAZOLE 30 MG GT (09:08)
[2025-04-20] MEDS: MULTIVITAMIN 1 TAB TABLET GT (09:08)
[2025-04-20] MEDS: CYANOCOBALAMIN (VITAMIN B-12) 500 MCG TABLET 1000 MCG GT (09:08)
[2025-04-20] MEDS: ATORVASTATIN 40 MG TABLET GT (21:24)
[2025-04-20] MEDS: MAGNESIUM HYDROXIDE 30 ML ORAL SUSP ML GT (22:28)
[2025-04-21] VITALS (8 sets, daily range): BP systolic 102–130; BP diastolic 53–77; PULSE 54–82; RESP 19–22; TEMP 36.2–36.4; O2SAT 98–100
[2025-04-21] MEDS: IPRATROPIUM/ALBUTEROL 3 ML AMPUL.NEB INH ×4 (00:51→17:07)
[2025-04-21] MEDS: CYANOCOBALAMIN (VITAMIN B-12) 500 MCG TABLET 1000 MCG GT (09:38)
[2025-04-21] MEDS: DEXLANSOPRAZOLE 30 MG GT (09:38)
[2025-04-21] MEDS: MULTIVITAMIN 1 TAB TABLET GT (09:38)
[2025-04-21] MEDS: ATORVASTATIN 40 MG TABLET GT (21:28)
[2025-04-22] VITALS (10 sets, daily range): BP systolic 105–130; BP diastolic 61–71; PULSE 51–77; RESP 17–24; TEMP 35.9–36.3; O2SAT 96–100
[2025-04-22] MEDS: IPRATROPIUM/ALBUTEROL 3 ML AMPUL.NEB INH ×3 (00:51→13:03)
[2025-04-22] MEDS: CARVEDILOL 3.125 MG TABLET GT ×2 (09:12→20:15)
[2025-04-22] MEDS: MULTIVITAMIN 1 TAB TABLET GT (09:15)
[2025-04-22] MEDS: CYANOCOBALAMIN (VITAMIN B-12) 500 MCG TABLET 1000 MCG GT (09:15)
[2025-04-22] MEDS: DEXLANSOPRAZOLE 30 MG GT (09:15)
--- NOTE | 2025-04-22 15:54 | PC.NURSE ---
Family requested (daughter and Son-in law) assistance and education regarding a mole size 1.2x 0.7mm. on resident rt cheek. Issue reported to MD. order to continue to monitor for further growth. and if continuos growing urgical consult will be place for resident to be evaluated. Family having difficulty verbalizing understanding. Will contact RUTH ANN Gregory to inform him of finding unable to reach him or leave a message. Will try to reach out at later time. resident remains in stable condition. Will continue to monitor.
--- NOTE | 2025-04-22 18:29 | ESPR_ITS ---
Progress Note - SubAcute DIAGNOSIS (1) Chronic respiratory failure, unspecified whether with hypoxia or hypercapnia: Status: Chronic (2) Tracheostomy status: Status: Chronic (3) Chronic atrial fibrillation: Status: Chronic (4) Other sequelae of cerebral infarction: Status: Chronic (5) Persistent vegetative state: Status: Chronic (6) Hyperlipidemia, unspecified: Status: Chronic (7) G tube feedings: Status: Chronic (8) Diabetes type 2, controlled: Status: Chronic SUBJECTIVE Fever:: none GI:: none Shortness of Breath:: none Pain:: none OBJECTIVE Most recent vital signs: Last Vital Signs Temp 97.4 F 04/22/25 18:00 Pulse 62 04/22/25 18:00 Resp 20 04/22/25 18:00 BP 110/64 04/22/25 18:00 Pulse Ox 97 04/22/25 18:00 O2 Del Method Mechanical Ventilation 04/22/25 18:00 FiO2 30 04/22/25 13:04 Neurological:: PVS Speech:: none Answers questions:: no Respiratory:: lungs clear Cardiovascular: RRR Abdomen: soft and nontender Extremities:: deformities Tracheostomy:: to blow by Feeding per:: G tube ASSESSMENT & PLAN Assessment: Pt with multiple organ compromise and fully dependent for all care and with poor prognosis. VSS Tolerating tube feeding.. Pt has been on Ventilator since his last admission to acute care. Not weanable. No pain issues Small chronic skin lesion on face. Monitor for any change and surgical consult if it increses in size or alters significantly. Plan: Current treatment reviewed and continued t
[2025-04-22] MEDS: ATORVASTATIN 40 MG TABLET GT (20:14)
[2025-04-23] VITALS (8 sets, daily range): BP systolic 100–118; BP diastolic 57–70; PULSE 47–68; RESP 19–25; TEMP 36.1; O2SAT 98–99
[2025-04-23] MEDS: DEXLANSOPRAZOLE 30 MG GT (08:46)
[2025-04-23] MEDS: CYANOCOBALAMIN (VITAMIN B-12) 500 MCG TABLET 1000 MCG GT (08:46)
[2025-04-23] MEDS: MULTIVITAMIN 1 TAB TABLET GT (08:46)
[2025-04-23] MEDS: ATORVASTATIN 40 MG TABLET GT (20:39)
[2025-04-23] MEDS: CARVEDILOL 3.125 MG TABLET GT (20:40)
[2025-04-24] VITALS (9 sets, daily range): BP systolic 97–127; BP diastolic 51–81; PULSE 39–69; RESP 17–23; TEMP 36.2–37; O2SAT 95–100
[2025-04-24] MEDS: IPRATROPIUM/ALBUTEROL 3 ML AMPUL.NEB INH ×3 (07:34→19:53)
[2025-04-24] MEDS: CYANOCOBALAMIN (VITAMIN B-12) 500 MCG TABLET 1000 MCG GT (09:16)
[2025-04-24] MEDS: DEXLANSOPRAZOLE 30 MG GT (09:16)
[2025-04-24] MEDS: MULTIVITAMIN 1 TAB TABLET GT (09:16)
[2025-04-24] MEDS: ATORVASTATIN 40 MG TABLET GT (21:07)
[2025-04-25] VITALS (10 sets, daily range): BP systolic 99–135; BP diastolic 56–67; PULSE 51–69; RESP 13–27; TEMP 36–36.3; O2SAT 94–99
[2025-04-25] MEDS: IPRATROPIUM/ALBUTEROL 3 ML AMPUL.NEB INH ×4 (01:41→18:10)
[2025-04-25] MEDS: MULTIVITAMIN 1 TAB TABLET GT (08:33)
[2025-04-25] MEDS: DEXLANSOPRAZOLE 30 MG GT (08:33)
[2025-04-25] MEDS: CYANOCOBALAMIN (VITAMIN B-12) 500 MCG TABLET 1000 MCG GT (08:33)
[2025-04-25] MEDS: CARVEDILOL 3.125 MG TABLET GT (21:15)
[2025-04-25] MEDS: ATORVASTATIN 40 MG TABLET GT (21:15)
[2025-04-26] VITALS (9 sets, daily range): BP systolic 110–121; BP diastolic 58–66; PULSE 49–74; RESP 15–22; TEMP 36.1; O2SAT 97–100
[2025-04-26] MEDS: IPRATROPIUM/ALBUTEROL 3 ML AMPUL.NEB INH ×3 (06:57→18:48)
[2025-04-26] MEDS: CARVEDILOL 3.125 MG TABLET GT ×2 (08:27→21:30)
[2025-04-26] MEDS: CYANOCOBALAMIN (VITAMIN B-12) 500 MCG TABLET 1000 MCG GT (08:28)
[2025-04-26] MEDS: MULTIVITAMIN 1 TAB TABLET GT (08:28)
[2025-04-26] MEDS: DEXLANSOPRAZOLE 30 MG GT (08:28)
--- NOTE | 2025-04-26 14:59 | PC.SS ---
Resident remains on vent with trach in place and GT for medication and nutrition. Resident is unable to make needs known, community health program representative will continue to make all medical decisions for resident. Resident will remain in current care as resident is not ready to DC to lower level of care, he will continue to have all subacute care needs met by staff.
[2025-04-26] MEDS: ATORVASTATIN 40 MG TABLET GT (21:30)
[2025-04-26] MEDS: ACETAMINOPHEN 325 MG TABLET GT (21:31)
--- NOTE | 2025-04-26 22:18 | ESPR_ITS ---
Progress Note - SubAcute DIAGNOSIS (1) Chronic respiratory failure, unspecified whether with hypoxia or hypercapnia: Status: Chronic (2) Tracheostomy status: Status: Chronic (3) Chronic atrial fibrillation: Status: Chronic (4) Other sequelae of cerebral infarction: Status: Chronic (5) Persistent vegetative state: Status: Chronic (6) Hyperlipidemia, unspecified: Status: Chronic (7) G tube feedings: Status: Chronic (8) Diabetes type 2, controlled: Status: Chronic SUBJECTIVE Fever:: none GI:: none Shortness of Breath:: none Pain:: none OBJECTIVE Most recent vital signs: Last Vital Signs Temp 96.9 F 04/26/25 16:43 Pulse 74 04/26/25 21:30 Resp 21 H 04/26/25 16:43 BP 117/64 04/26/25 21:30 Pulse Ox 98 04/26/25 20:00 O2 Del Method Mechanical Ventilation 04/26/25 16:43 FiO2 30 04/26/25 20:00 Neurological:: PVS Speech:: none Answers questions:: no Respiratory:: lungs clear Cardiovascular: RRR Abdomen: soft and nontender Extremities:: deformities Tracheostomy:: to blow by Feeding per:: G tube ASSESSMENT & PLAN Assessment: Pt with multiple organ compromise and fully dependent for all care and with poor prognosis. VSS Tolerating tube feeding.. Pt has been on Ventilator since his last admission to acute care. Not weanable. No pain issues Small chronic skin lesion on face. Monitor for any change and surgical consult if it increses in size or alters significantly. Plan: Current treatment reviewed and continued t
[2025-04-27] VITALS (9 sets, daily range): BP systolic 95–124; BP diastolic 58–72; PULSE 51–76; RESP 19–24; TEMP 36.2–36.3; O2SAT 97–100
[2025-04-27] MEDS: IPRATROPIUM/ALBUTEROL 3 ML AMPUL.NEB INH ×4 (00:24→19:01)
[2025-04-27] MEDS: DEXLANSOPRAZOLE 30 MG GT (09:20)
[2025-04-27] MEDS: CARVEDILOL 3.125 MG TABLET GT (09:20)
[2025-04-27] MEDS: CYANOCOBALAMIN (VITAMIN B-12) 500 MCG TABLET 1000 MCG GT (09:20)
[2025-04-27] MEDS: MULTIVITAMIN 1 TAB TABLET GT (09:20)
[2025-04-27] MEDS: ATORVASTATIN 40 MG TABLET GT (21:17)
[2025-04-28] VITALS (12 sets, daily range): BP systolic 100–134; BP diastolic 46–68; PULSE 53–70; RESP 19–25; TEMP 36.1–36.2; O2SAT 97–100
[2025-04-28] MEDS: IPRATROPIUM/ALBUTEROL 3 ML AMPUL.NEB INH ×4 (00:07→19:15)
[2025-04-28] MEDS: CARVEDILOL 3.125 MG TABLET GT (09:02)
[2025-04-28] MEDS: DEXLANSOPRAZOLE 30 MG GT (09:03)
[2025-04-28] MEDS: MULTIVITAMIN 1 TAB TABLET GT (09:03)
[2025-04-28] MEDS: CYANOCOBALAMIN (VITAMIN B-12) 500 MCG TABLET 1000 MCG GT (09:03)
[2025-04-28] MEDS: ACETAMINOPHEN 325 MG TABLET GT (10:00)
--- NOTE | 2025-04-28 13:10 | ESPR_ITS ---
Progress Note - SubAcute DIAGNOSIS (1) Chronic respiratory failure, unspecified whether with hypoxia or hypercapnia: Status: Chronic (2) Tracheostomy status: Status: Chronic (3) Chronic atrial fibrillation: Status: Chronic (4) Other sequelae of cerebral infarction: Status: Chronic (5) Persistent vegetative state: Status: Chronic (6) Hyperlipidemia, unspecified: Status: Chronic (7) G tube feedings: Status: Chronic (8) Diabetes type 2, controlled: Status: Chronic SUBJECTIVE Fever:: none GI:: none Shortness of Breath:: none Pain:: none OBJECTIVE Most recent vital signs: Last Vital Signs Temp 97.1 F 04/28/25 12:00 Pulse 65 04/28/25 12:47 Resp 20 04/28/25 12:47 BP 108/54 L 04/28/25 12:00 Pulse Ox 100 04/28/25 12:47 O2 Del Method Mechanical Ventilation 04/28/25 06:00 FiO2 30 04/28/25 12:47 Neurological:: PVS Speech:: none Answers questions:: no Respiratory:: lungs clear Cardiovascular: RRR Abdomen: soft and nontender Extremities:: deformities Tracheostomy:: to blow by Feeding per:: G tube ASSESSMENT & PLAN Assessment: Pt with multiple organ compromise and fully dependent for all care and with poor prognosis. VSS Tolerating tube feeding.. Pt has been on Ventilator since his last admission to acute care. Not weanable. No pain issues Small chronic skin lesion on face. Monitor for any change and surgical consult if it increses in size or alters significantly. No change so far. Plan: Current treatment reviewed and continued t
[2025-04-28] MEDS: ATORVASTATIN 40 MG TABLET GT (20:06)
[2025-04-29] VITALS (10 sets, daily range): BP systolic 98–124; BP diastolic 45–68; PULSE 56–84; RESP 15–26; TEMP 36–36.4; O2SAT 96–100
[2025-04-29] MEDS: IPRATROPIUM/ALBUTEROL 3 ML AMPUL.NEB INH ×4 (00:14→17:02)
[2025-04-29] MEDS: DEXLANSOPRAZOLE 30 MG GT (09:05)
[2025-04-29] MEDS: CYANOCOBALAMIN (VITAMIN B-12) 500 MCG TABLET 1000 MCG GT (09:05)
[2025-04-29] MEDS: MULTIVITAMIN 1 TAB TABLET GT (09:05)
[2025-04-29] MEDS: ATORVASTATIN 40 MG TABLET GT (20:14)
[2025-04-30] VITALS (11 sets, daily range): BP systolic 99–117; BP diastolic 58–68; PULSE 59–82; RESP 13–28; TEMP 35.9–36.5; O2SAT 96–100
[2025-04-30] MEDS: IPRATROPIUM/ALBUTEROL 3 ML AMPUL.NEB INH ×4 (00:45→18:42)
[2025-04-30] MEDS: MULTIVITAMIN 1 TAB TABLET GT (08:43)
[2025-04-30] MEDS: DEXLANSOPRAZOLE 30 MG GT (08:43)
[2025-04-30] MEDS: CYANOCOBALAMIN (VITAMIN B-12) 500 MCG TABLET 1000 MCG GT (08:43)
[2025-04-30] MEDS: ATORVASTATIN 40 MG TABLET GT (21:16)
[2025-04-30] MEDS: CARVEDILOL 3.125 MG TABLET GT (21:17)
[2025-05-01] VITALS (10 sets, daily range): BP systolic 104–134; BP diastolic 54–79; PULSE 47–81; RESP 18–29; TEMP 36–36.9; O2SAT 98–100
[2025-05-01] MEDS: IPRATROPIUM/ALBUTEROL 3 ML AMPUL.NEB INH ×4 (00:16→18:29)
[2025-05-01] MEDS: MULTIVITAMIN 1 TAB TABLET GT (09:03)
[2025-05-01] MEDS: DEXLANSOPRAZOLE 30 MG GT (09:04)
[2025-05-01] MEDS: CYANOCOBALAMIN (VITAMIN B-12) 500 MCG TABLET 1000 MCG GT (09:04)
[2025-05-01] MEDS: MAGNESIUM HYDROXIDE 30 ML ORAL SUSP ML GT (09:05)
[2025-05-01] MEDS: ATORVASTATIN 40 MG TABLET GT (22:17)
[2025-05-01] MEDS: CARVEDILOL 3.125 MG TABLET GT (22:17)
[2025-05-02] VITALS (10 sets, daily range): BP systolic 100–140; BP diastolic 47–68; PULSE 46–84; RESP 11–28; TEMP 36.1–37.2; O2SAT 95–100
[2025-05-02] MEDS: IPRATROPIUM/ALBUTEROL 3 ML AMPUL.NEB INH ×4 (00:31→16:59)
[2025-05-02] MEDS: BISACODYL 10 MG SUPP.RECT PR (02:57)
[2025-05-02] MEDS: DEXLANSOPRAZOLE 30 MG GT (09:15)
[2025-05-02] MEDS: CYANOCOBALAMIN (VITAMIN B-12) 500 MCG TABLET 1000 MCG GT (09:15)
[2025-05-02] MEDS: MULTIVITAMIN 1 TAB TABLET GT (09:15)
[2025-05-02] MEDS: ACETAMINOPHEN 325 MG TABLET GT (11:30)
[2025-05-02] MEDS: ATORVASTATIN 40 MG TABLET GT (21:20)
[2025-05-03] VITALS (10 sets, daily range): BP systolic 94–134; BP diastolic 53–71; PULSE 53–74; RESP 19–25; TEMP 36.2–36.4; O2SAT 96–100; BMI 23.3
[2025-05-03] MEDS: IPRATROPIUM/ALBUTEROL 3 ML AMPUL.NEB INH ×4 (00:34→19:46)
--- NOTE | 2025-05-03 09:14 | ESPR_ITS ---
Progress Note - SubAcute DIAGNOSIS (1) Chronic respiratory failure, unspecified whether with hypoxia or hypercapnia: Status: Chronic (2) Tracheostomy status: Status: Chronic (3) Chronic atrial fibrillation: Status: Chronic (4) Other sequelae of cerebral infarction: Status: Chronic (5) Persistent vegetative state: Status: Chronic (6) Hyperlipidemia, unspecified: Status: Chronic (7) G tube feedings: Status: Chronic (8) Diabetes type 2, controlled: Status: Chronic SUBJECTIVE Fever:: none GI:: none Shortness of Breath:: none Pain:: none OBJECTIVE Most recent vital signs: Last Vital Signs Temp 97.3 F 05/03/25 06:00 Pulse 70 05/03/25 06:32 Resp 20 05/03/25 06:32 BP 116/70 05/03/25 06:00 Pulse Ox 99 05/03/25 06:32 O2 Del Method Mechanical Ventilation 05/03/25 06:00 FiO2 30 05/03/25 06:32 Neurological:: PVS Speech:: none Answers questions:: no Respiratory:: lungs clear Cardiovascular: RRR Abdomen: soft and nontender Extremities:: deformities Tracheostomy:: to blow by Feeding per:: G tube ASSESSMENT & PLAN Assessment: Pt with multiple organ compromise and fully dependent for all care and with poor prognosis. VSS Tolerating tube feeding.. Pt has been on Ventilator since his last admission to acute care. Not weanable. No pain issues Small chronic skin lesion on face. Monitor for any change and surgical consult if it increses in size or alters significantly. No change so far.VSS Plan: Current treatment reviewed and continued t
[2025-05-03] MEDS: MULTIVITAMIN 1 TAB TABLET GT (09:21)
[2025-05-03] MEDS: CYANOCOBALAMIN (VITAMIN B-12) 500 MCG TABLET 1000 MCG GT (09:21)
[2025-05-03] MEDS: DEXLANSOPRAZOLE 30 MG GT (09:21)
--- NOTE | 2025-05-03 14:52 | PC.SS ---
Resident remains on vent with trach in place and GT for medication and nutrition. Resident is unable to make needs known, roofing sales representative will continue to make all medical decisions for resident. Resident will remain in current care as resident is not ready to DC to lower level of care, he will continue to have all subacute care needs met by staff.
[2025-05-03] MEDS: ACETAMINOPHEN 325 MG TABLET GT (17:20)
[2025-05-03] MEDS: ATORVASTATIN 40 MG TABLET GT (21:18)
[2025-05-04] VITALS (9 sets, daily range): BP systolic 92–106; BP diastolic 57–71; PULSE 54–98; RESP 15–29; TEMP 36.2–36.7; O2SAT 96–99
[2025-05-04] MEDS: IPRATROPIUM/ALBUTEROL 3 ML AMPUL.NEB INH ×4 (01:05→19:00)
[2025-05-04] MEDS: CYANOCOBALAMIN (VITAMIN B-12) 500 MCG TABLET 1000 MCG GT (08:58)
[2025-05-04] MEDS: DEXLANSOPRAZOLE 30 MG GT (08:58)
[2025-05-04] MEDS: MULTIVITAMIN 1 TAB TABLET GT (08:59)
[2025-05-04] MEDS: ATORVASTATIN 40 MG TABLET GT (20:52)
[2025-05-05] VITALS (10 sets, daily range): BP systolic 90–116; BP diastolic 55–72; PULSE 58–83; RESP 10–25; TEMP 36.1–37.2; O2SAT 96–99
[2025-05-05] MEDS: IPRATROPIUM/ALBUTEROL 3 ML AMPUL.NEB INH ×4 (01:09→19:02)
[2025-05-05] MEDS: ACETAMINOPHEN 325 MG TABLET GT (01:45)
[2025-05-05] MEDS: guaiFENesin Liq 100 MG/5 ML LIQUID GT (01:56)
[2025-05-05] MEDS: MULTIVITAMIN 1 TAB TABLET GT (08:08)
[2025-05-05] MEDS: DEXLANSOPRAZOLE 30 MG GT (08:09)
[2025-05-05] MEDS: MAGNESIUM HYDROXIDE 30 ML ORAL SUSP ML GT (08:09)
[2025-05-05] MEDS: CYANOCOBALAMIN (VITAMIN B-12) 500 MCG TABLET 1000 MCG GT (08:09)
[2025-05-05] MEDS: ATORVASTATIN 40 MG TABLET GT (20:27)
[2025-05-06] VITALS (10 sets, daily range): BP systolic 96–133; BP diastolic 60–75; PULSE 62–72; RESP 19–30; TEMP 36.1–36.9; O2SAT 93–99
[2025-05-06] MEDS: IPRATROPIUM/ALBUTEROL 3 ML AMPUL.NEB INH ×4 (01:20→18:13)
[2025-05-06] MEDS: CYANOCOBALAMIN (VITAMIN B-12) 500 MCG TABLET 1000 MCG GT (08:13)
[2025-05-06] MEDS: MULTIVITAMIN 1 TAB TABLET GT (08:13)
[2025-05-06] MEDS: CARVEDILOL 3.125 MG TABLET GT ×2 (08:13→20:56)
[2025-05-06] MEDS: DEXLANSOPRAZOLE 30 MG GT (08:13)
[2025-05-06] MEDS: ACETAMINOPHEN 325 MG TABLET GT (11:50)
[2025-05-06] MEDS: ATORVASTATIN 40 MG TABLET GT (20:56)
[2025-05-07] VITALS (8 sets, daily range): BP systolic 96–131; BP diastolic 64–77; PULSE 54–93; RESP 16–28; TEMP 36.4–36.9; O2SAT 98–100
[2025-05-07] MEDS: IPRATROPIUM/ALBUTEROL 3 ML AMPUL.NEB INH ×4 (00:50→20:06)
[2025-05-07] MEDS: CARVEDILOL 3.125 MG TABLET GT (08:21)
[2025-05-07] MEDS: CYANOCOBALAMIN (VITAMIN B-12) 500 MCG TABLET 1000 MCG GT (08:21)
[2025-05-07] MEDS: DEXLANSOPRAZOLE 30 MG GT (08:22)
[2025-05-07] MEDS: MULTIVITAMIN 1 TAB TABLET GT (08:22)
[2025-05-07] MEDS: ATORVASTATIN 40 MG TABLET GT (21:38)
--- NOTE | 2025-05-07 22:15 | ESPR_ITS ---
Progress Note - SubAcute DIAGNOSIS (1) Chronic respiratory failure, unspecified whether with hypoxia or hypercapnia: Status: Chronic (2) Tracheostomy status: Status: Chronic (3) Chronic atrial fibrillation: Status: Chronic (4) Other sequelae of cerebral infarction: Status: Chronic (5) Persistent vegetative state: Status: Chronic (6) Hyperlipidemia, unspecified: Status: Chronic (7) G tube feedings: Status: Chronic (8) Diabetes type 2, controlled: Status: Chronic SUBJECTIVE Fever:: none GI:: none Shortness of Breath:: none Pain:: none OBJECTIVE Most recent vital signs: Last Vital Signs Temp 96.6 F L 05/11/25 17:30 Pulse 59 L 05/11/25 21:38 Resp 24 H 05/11/25 17:30 BP 117/66 05/11/25 21:38 Pulse Ox 98 05/11/25 17:30 O2 Del Method Mechanical Ventilation 05/11/25 06:00 FiO2 30 05/11/25 16:42 Neurological:: PVS Speech:: none Answers questions:: no Respiratory:: lungs clear Cardiovascular: RRR Abdomen: soft and nontender Extremities:: deformities Tracheostomy:: to blow by Feeding per:: G tube ASSESSMENT & PLAN Assessment: Pt with multiple organ compromise and fully dependent for all care and with poor prognosis. VSS Tolerating tube feeding.. Pt has been on Ventilator since his last admission to acute care. Not weanable. No pain issues Small chronic skin lesion on face. Monitor for any change and surgical consult if it increses in size or alters significantly. No change so far.VSS Plan: Current treatment reviewed and continued t
[2025-05-08] VITALS (8 sets, daily range): BP systolic 96–142; BP diastolic 54–73; PULSE 52–89; RESP 20–30; TEMP 36.2–36.6; O2SAT 97–99
[2025-05-08] MEDS: IPRATROPIUM/ALBUTEROL 3 ML AMPUL.NEB INH ×4 (00:38→19:17)
[2025-05-08] MEDS: CARVEDILOL 3.125 MG TABLET GT (08:46)
[2025-05-08] MEDS: MULTIVITAMIN 1 TAB TABLET GT (08:47)
[2025-05-08] MEDS: DEXLANSOPRAZOLE 30 MG GT (08:47)
[2025-05-08] MEDS: CYANOCOBALAMIN (VITAMIN B-12) 500 MCG TABLET 1000 MCG GT (08:47)
[2025-05-08] MEDS: guaiFENesin Liq 100 MG/5 ML LIQUID GT (08:48)
[2025-05-08] MEDS: ACETAMINOPHEN 325 MG TABLET GT (11:20)
[2025-05-08] MEDS: ATORVASTATIN 40 MG TABLET GT (21:24)
[2025-05-09] VITALS (11 sets, daily range): BP systolic 105–123; BP diastolic 53–72; PULSE 48–89; RESP 19–28; TEMP 35.9–36.2; O2SAT 92–99
[2025-05-09] MEDS: IPRATROPIUM/ALBUTEROL 3 ML AMPUL.NEB INH ×4 (00:45→20:04)
[2025-05-09] MEDS: CYANOCOBALAMIN (VITAMIN B-12) 500 MCG TABLET 1000 MCG GT (09:00)
[2025-05-09] MEDS: CARVEDILOL 3.125 MG TABLET GT (09:00)
[2025-05-09] MEDS: MULTIVITAMIN 1 TAB TABLET GT (09:01)
[2025-05-09] MEDS: DEXLANSOPRAZOLE 30 MG GT (09:01)
[2025-05-09] MEDS: guaiFENesin Liq 100 MG/5 ML LIQUID GT ×2 (09:02→20:59)
[2025-05-09] MEDS: ATORVASTATIN 40 MG TABLET GT (20:56)
[2025-05-09] MEDS: ACETAMINOPHEN 325 MG TABLET GT (20:59)
[2025-05-10] VITALS (8 sets, daily range): BP systolic 92–119; BP diastolic 37–73; PULSE 53–69; RESP 10–25; TEMP 35.9–36.4; O2SAT 95–99
[2025-05-10] MEDS: IPRATROPIUM/ALBUTEROL 3 ML AMPUL.NEB INH ×4 (01:13→18:37)
[2025-05-10] MEDS: MULTIVITAMIN 1 TAB TABLET GT (08:42)
[2025-05-10] MEDS: CYANOCOBALAMIN (VITAMIN B-12) 500 MCG TABLET 1000 MCG GT (08:43)
[2025-05-10] MEDS: CARVEDILOL 3.125 MG TABLET GT (08:43)
[2025-05-10] MEDS: DEXLANSOPRAZOLE 30 MG GT (08:43)
[2025-05-10] MEDS: ATORVASTATIN 40 MG TABLET GT (21:38)
[2025-05-11] VITALS (10 sets, daily range): BP systolic 107–136; BP diastolic 59–77; PULSE 51–68; RESP 10–25; TEMP 35.9–36.2; O2SAT 96–978
[2025-05-11] MEDS: IPRATROPIUM/ALBUTEROL 3 ML AMPUL.NEB INH ×4 (00:49→16:41)
[2025-05-11] MEDS: DEXLANSOPRAZOLE 30 MG GT (08:38)
[2025-05-11] MEDS: CYANOCOBALAMIN (VITAMIN B-12) 500 MCG TABLET 1000 MCG GT (08:38)
[2025-05-11] MEDS: MULTIVITAMIN 1 TAB TABLET GT (08:38)
[2025-05-11] MEDS: guaiFENesin Liq 100 MG/5 ML LIQUID GT (08:39)
[2025-05-11] MEDS: ATORVASTATIN 40 MG TABLET GT (21:38)
[2025-05-12] VITALS (10 sets, daily range): BP systolic 90–122; BP diastolic 43–76; PULSE 54–90; RESP 10–30; TEMP 36.1–36.4; O2SAT 95–99
[2025-05-12] MEDS: IPRATROPIUM/ALBUTEROL 3 ML AMPUL.NEB INH ×4 (00:05→18:06)
[2025-05-12] MEDS: DEXLANSOPRAZOLE 30 MG GT (08:51)
[2025-05-12] MEDS: CARVEDILOL 3.125 MG TABLET GT (08:51)
[2025-05-12] MEDS: CYANOCOBALAMIN (VITAMIN B-12) 500 MCG TABLET 1000 MCG GT (08:51)
[2025-05-12] MEDS: MULTIVITAMIN 1 TAB TABLET GT (08:51)
[2025-05-12] MEDS: ATORVASTATIN 40 MG TABLET GT (20:21)
[2025-05-13] VITALS (10 sets, daily range): BP systolic 106–143; BP diastolic 53–76; PULSE 54–85; RESP 17–30; TEMP 36.1–36.6; O2SAT 94–100
[2025-05-13] MEDS: IPRATROPIUM/ALBUTEROL 3 ML AMPUL.NEB INH ×4 (00:23→18:51)
[2025-05-13] MEDS: CARVEDILOL 3.125 MG TABLET GT (09:01)
[2025-05-13] MEDS: CYANOCOBALAMIN (VITAMIN B-12) 500 MCG TABLET 1000 MCG GT (09:02)
[2025-05-13] MEDS: DEXLANSOPRAZOLE 30 MG GT (09:02)
[2025-05-13] MEDS: MULTIVITAMIN 1 TAB TABLET GT (09:03)
[2025-05-13] MEDS: ATORVASTATIN 40 MG TABLET GT (21:10)
[2025-05-13] MEDS: ACETAMINOPHEN 325 MG TABLET GT (21:13)
[2025-05-14] VITALS (10 sets, daily range): BP systolic 104–117; BP diastolic 51–73; PULSE 53–90; RESP 10–24; TEMP 36.1; O2SAT 96–100
[2025-05-14] MEDS: IPRATROPIUM/ALBUTEROL 3 ML AMPUL.NEB INH ×4 (00:30→18:05)
[2025-05-14] MEDS: guaiFENesin Liq 100 MG/5 ML LIQUID GT (08:22)
[2025-05-14] MEDS: CYANOCOBALAMIN (VITAMIN B-12) 500 MCG TABLET 1000 MCG GT (08:24)
[2025-05-14] MEDS: DEXLANSOPRAZOLE 30 MG GT (08:24)
[2025-05-14] MEDS: MULTIVITAMIN 1 TAB TABLET GT (08:24)
[2025-05-14] MEDS: ATORVASTATIN 40 MG TABLET GT (21:08)
[2025-05-15] VITALS (10 sets, daily range): BP systolic 93–146; BP diastolic 66–73; PULSE 52–96; RESP 10–27; TEMP 35.9–36.6; O2SAT 97–100
[2025-05-15] MEDS: IPRATROPIUM/ALBUTEROL 3 ML AMPUL.NEB INH ×4 (00:05→18:05)
[2025-05-15] MEDS: DEXLANSOPRAZOLE 30 MG GT (09:10)
[2025-05-15] MEDS: CARVEDILOL 3.125 MG TABLET GT (09:10)
[2025-05-15] MEDS: MULTIVITAMIN 1 TAB TABLET GT (09:10)
[2025-05-15] MEDS: CYANOCOBALAMIN (VITAMIN B-12) 500 MCG TABLET 1000 MCG GT (09:10)
[2025-05-15] MEDS: ATORVASTATIN 40 MG TABLET GT (21:04)
--- NOTE | 2025-05-15 22:23 | ESPR_ITS ---
Progress Note - SubAcute DIAGNOSIS (1) Chronic respiratory failure, unspecified whether with hypoxia or hypercapnia: Status: Chronic (2) Tracheostomy status: Status: Chronic (3) Chronic atrial fibrillation: Status: Chronic (4) Other sequelae of cerebral infarction: Status: Chronic (5) Persistent vegetative state: Status: Chronic (6) Hyperlipidemia, unspecified: Status: Chronic (7) G tube feedings: Status: Chronic (8) Diabetes type 2, controlled: Status: Chronic SUBJECTIVE Fever:: none GI:: none Shortness of Breath:: none Pain:: none OBJECTIVE Most recent vital signs: Last Vital Signs Temp 96.7 F L 05/15/25 17:42 Pulse 96 05/15/25 21:05 Resp 27 H 05/15/25 17:42 BP 93/69 05/15/25 21:05 Pulse Ox 98 05/15/25 17:42 O2 Del Method Mechanical Ventilation 05/15/25 17:42 FiO2 30 05/15/25 12:01 Neurological:: PVS Speech:: none Answers questions:: no Respiratory:: lungs clear Cardiovascular: RRR Abdomen: soft and nontender Extremities:: deformities Tracheostomy:: to blow by Feeding per:: G tube ASSESSMENT & PLAN Assessment: Pt with multiple organ compromise and fully dependent for all care and with poor prognosis. VSS Tolerating tube feeding.. Pt has been on Ventilator since his last admission to acute care. Not weanable. No pain issues Small chronic skin lesion on face. Monitor for any change and surgical consult if it increses in size or alters significantly. No change so far.VSS Plan: Current treatment reviewed and continued t
[2025-05-16] VITALS (9 sets, daily range): BP systolic 90–132; BP diastolic 47–77; PULSE 54–78; RESP 20–28; TEMP 35.9–36.4; O2SAT 97–99
[2025-05-16] MEDS: IPRATROPIUM/ALBUTEROL 3 ML AMPUL.NEB INH (00:05)
[2025-05-16] MEDS: CARVEDILOL 3.125 MG TABLET GT (08:33)
[2025-05-16] MEDS: CYANOCOBALAMIN (VITAMIN B-12) 500 MCG TABLET 1000 MCG GT (08:33)
[2025-05-16] MEDS: guaiFENesin Liq 100 MG/5 ML LIQUID GT (08:34)
[2025-05-16] MEDS: DEXLANSOPRAZOLE 30 MG GT (08:34)
[2025-05-16] MEDS: MULTIVITAMIN 1 TAB TABLET GT (08:34)
[2025-05-16] MEDS: ATORVASTATIN 40 MG TABLET GT (21:14)
[2025-05-16] MEDS: MAGNESIUM HYDROXIDE 30 ML ORAL SUSP ML GT (21:15)
[2025-05-17] VITALS (11 sets, daily range): BP systolic 108–133; BP diastolic 51–73; PULSE 54–76; RESP 14–32; TEMP 36.1–36.3; O2SAT 97–99
[2025-05-17] MEDS: CYANOCOBALAMIN (VITAMIN B-12) 500 MCG TABLET 1000 MCG GT (08:37)
[2025-05-17] MEDS: MULTIVITAMIN 1 TAB TABLET GT (08:38)
[2025-05-17] MEDS: DEXLANSOPRAZOLE 30 MG GT (08:38)
[2025-05-17] MEDS: IPRATROPIUM/ALBUTEROL 3 ML AMPUL.NEB INH (18:46)
[2025-05-17] MEDS: ATORVASTATIN 40 MG TABLET GT (21:04)
[2025-05-18] VITALS (10 sets, daily range): BP systolic 100–134; BP diastolic 52–71; PULSE 55–85; RESP 10–20; TEMP 36.1–36.3; O2SAT 97–100
[2025-05-18] MEDS: IPRATROPIUM/ALBUTEROL 3 ML AMPUL.NEB INH ×4 (00:56→18:00)
[2025-05-18] MEDS: CARVEDILOL 3.125 MG TABLET GT ×2 (08:29→20:26)
[2025-05-18] MEDS: CYANOCOBALAMIN (VITAMIN B-12) 500 MCG TABLET 1000 MCG GT (08:30)
[2025-05-18] MEDS: DEXLANSOPRAZOLE 30 MG GT (08:31)
[2025-05-18] MEDS: MULTIVITAMIN 1 TAB TABLET GT (08:31)
[2025-05-18] MEDS: ATORVASTATIN 40 MG TABLET GT (20:26)
[2025-05-19] VITALS (10 sets, daily range): BP systolic 102–139; BP diastolic 61–77; PULSE 55–94; RESP 17–27; TEMP 36.2–36.8; O2SAT 96–100
[2025-05-19] MEDS: IPRATROPIUM/ALBUTEROL 3 ML AMPUL.NEB INH ×4 (00:27→17:54)
[2025-05-19] MEDS: CARVEDILOL 3.125 MG TABLET GT ×2 (09:09→21:05)
[2025-05-19] MEDS: CYANOCOBALAMIN (VITAMIN B-12) 500 MCG TABLET 1000 MCG GT (09:09)
[2025-05-19] MEDS: MULTIVITAMIN 1 TAB TABLET GT (09:11)
[2025-05-19] MEDS: DEXLANSOPRAZOLE 30 MG GT (09:11)
--- NOTE | 2025-05-19 13:30 | PC.NURSE ---
Resident noted with circular reddened area above the let clavicle when suction tubing suctioned against resident's skin. No s/s of pain or discomfort noted. Order received to monitor the area.
--- NOTE | 2025-05-19 16:57 | ESPR_ITS ---
Progress Note - SubAcute DIAGNOSIS (1) Chronic respiratory failure, unspecified whether with hypoxia or hypercapnia: Status: Chronic (2) Tracheostomy status: Status: Chronic (3) Chronic atrial fibrillation: Status: Chronic (4) Other sequelae of cerebral infarction: Status: Chronic (5) Persistent vegetative state: Status: Chronic (6) Hyperlipidemia, unspecified: Status: Chronic (7) G tube feedings: Status: Chronic (8) Diabetes type 2, controlled: Status: Chronic SUBJECTIVE Fever:: none GI:: none Shortness of Breath:: none Pain:: none OBJECTIVE Most recent vital signs: Last Vital Signs Temp 98.3 F 05/19/25 11:38 Pulse 81 05/19/25 12:30 Resp 27 H 05/19/25 12:30 BP 136/77 H 05/19/25 11:38 Pulse Ox 98 05/19/25 12:30 O2 Del Method Mechanical Ventilation 05/18/25 16:41 FiO2 30 05/19/25 12:30 Neurological:: PVS Speech:: none Answers questions:: no Respiratory:: lungs clear Cardiovascular: RRR Abdomen: soft and nontender Extremities:: deformities Tracheostomy:: to blow by Feeding per:: G tube ASSESSMENT & PLAN Assessment: Pt with multiple organ compromise and fully dependent for all care and with poor prognosis. VSS Tolerating tube feeding.. Pt has been on Ventilator since his last admission to acute care. Not weanable. No pain issues Small chronic skin lesion on face. Monitor for any change and surgical consult if it increses in size or alters significantly. No change so far.VSS Plan: Current treatment reviewed and continued t
[2025-05-19] MEDS: ATORVASTATIN 40 MG TABLET GT (20:57)
[2025-05-20] VITALS (9 sets, daily range): BP systolic 120–132; BP diastolic 67–84; PULSE 56–86; RESP 16–30; TEMP 36.2–36.4; O2SAT 95–99
[2025-05-20] MEDS: IPRATROPIUM/ALBUTEROL 3 ML AMPUL.NEB INH ×4 (00:49→18:00)
[2025-05-20] MEDS: DEXLANSOPRAZOLE 30 MG GT (09:00)
[2025-05-20] MEDS: MULTIVITAMIN 1 TAB TABLET GT (09:00)
[2025-05-20] MEDS: CYANOCOBALAMIN (VITAMIN B-12) 500 MCG TABLET 1000 MCG GT (09:00)
[2025-05-20] MEDS: ATORVASTATIN 40 MG TABLET GT (20:53)
[2025-05-20] MEDS: CARVEDILOL 3.125 MG TABLET GT (20:54)
[2025-05-21] VITALS (9 sets, daily range): BP systolic 112–144; BP diastolic 55–76; PULSE 47–82; RESP 17–30; TEMP 35.9–36.4; O2SAT 97–99
[2025-05-21] MEDS: IPRATROPIUM/ALBUTEROL 3 ML AMPUL.NEB INH ×4 (00:28→19:00)
[2025-05-21] MEDS: CYANOCOBALAMIN (VITAMIN B-12) 500 MCG TABLET 1000 MCG GT (08:27)
[2025-05-21] MEDS: DEXLANSOPRAZOLE 30 MG GT (08:27)
[2025-05-21] MEDS: MULTIVITAMIN 1 TAB TABLET GT (08:27)
[2025-05-21] MEDS: CARVEDILOL 3.125 MG TABLET GT ×2 (08:27→21:00)
[2025-05-21] MEDS: ATORVASTATIN 40 MG TABLET GT (21:00)
[2025-05-22] VITALS (9 sets, daily range): BP systolic 122–153; BP diastolic 57–84; PULSE 54–78; RESP 19–28; TEMP 36.2–36.8; O2SAT 96–99
[2025-05-22] MEDS: IPRATROPIUM/ALBUTEROL 3 ML AMPUL.NEB INH ×4 (00:12→19:03)
[2025-05-22] MEDS: MULTIVITAMIN 1 TAB TABLET GT (08:12)
[2025-05-22] MEDS: DEXLANSOPRAZOLE 30 MG GT (08:12)
[2025-05-22] MEDS: CYANOCOBALAMIN (VITAMIN B-12) 500 MCG TABLET 1000 MCG GT (08:12)
[2025-05-22] MEDS: ATORVASTATIN 40 MG TABLET GT (20:25)
[2025-05-22] MEDS: CARVEDILOL 3.125 MG TABLET GT (20:26)
[2025-05-23] VITALS (10 sets, daily range): BP systolic 104–143; BP diastolic 42–82; PULSE 58–80; RESP 10–26; TEMP 36–36.5; O2SAT 97–99
[2025-05-23] MEDS: IPRATROPIUM/ALBUTEROL 3 ML AMPUL.NEB INH ×4 (00:58→18:16)
[2025-05-23] MEDS: CARVEDILOL 3.125 MG TABLET GT (09:09)
[2025-05-23] MEDS: MULTIVITAMIN 1 TAB TABLET GT (09:11)
[2025-05-23] MEDS: CYANOCOBALAMIN (VITAMIN B-12) 500 MCG TABLET 1000 MCG GT (09:11)
[2025-05-23] MEDS: DEXLANSOPRAZOLE 30 MG GT (09:11)
[2025-05-23] MEDS: MAGNESIUM HYDROXIDE 30 ML ORAL SUSP ML GT (11:30)
[2025-05-23] MEDS: ATORVASTATIN 40 MG TABLET GT (20:31)
--- NOTE | 2025-05-23 22:21 | ESPR_ITS ---
Progress Note - SubAcute DIAGNOSIS (1) Chronic respiratory failure, unspecified whether with hypoxia or hypercapnia: Status: Chronic (2) Tracheostomy status: Status: Chronic (3) Chronic atrial fibrillation: Status: Chronic (4) Other sequelae of cerebral infarction: Status: Chronic (5) Persistent vegetative state: Status: Chronic (6) Hyperlipidemia, unspecified: Status: Chronic (7) G tube feedings: Status: Chronic (8) Diabetes type 2, controlled: Status: Chronic SUBJECTIVE Fever:: none GI:: none Shortness of Breath:: none Pain:: none OBJECTIVE Most recent vital signs: Last Vital Signs Temp 96.9 F 05/23/25 17:58 Pulse 80 05/23/25 20:31 Resp 24 H 05/23/25 17:58 BP 104/42 L 05/23/25 20:31 Pulse Ox 99 05/23/25 17:58 O2 Del Method Mechanical Ventilation 05/23/25 17:58 FiO2 30 05/23/25 11:52 Neurological:: PVS Speech:: none Answers questions:: no Respiratory:: lungs clear Cardiovascular: RRR Abdomen: soft and nontender Extremities:: deformities Tracheostomy:: to blow by Feeding per:: G tube ASSESSMENT & PLAN Assessment: Pt with multiple organ compromise and fully dependent for all care and with poor prognosis. VSS Tolerating tube feeding.. Pt has been on Ventilator since his last admission to acute care. Not weanable. No pain issues Small chronic skin lesion on face. Monitor for any change and surgical consult if it increses in size or alters significantly. No change so far.VSS. No new issues Plan: Current treatment reviewed and continued t
[2025-05-24] VITALS (10 sets, daily range): BP systolic 96–154; BP diastolic 59–76; PULSE 53–78; RESP 15–28; TEMP 36.4–36.9; O2SAT 97–100
[2025-05-24] MEDS: IPRATROPIUM/ALBUTEROL 3 ML AMPUL.NEB INH ×3 (01:18→18:45)
[2025-05-24] MEDS: CYANOCOBALAMIN (VITAMIN B-12) 500 MCG TABLET 1000 MCG GT (08:52)
[2025-05-24] MEDS: DEXLANSOPRAZOLE 30 MG GT (08:53)
[2025-05-24] MEDS: MULTIVITAMIN 1 TAB TABLET GT (08:53)
[2025-05-24] MEDS: guaiFENesin Liq 100 MG/5 ML LIQUID GT (08:54)
[2025-05-24] MEDS: CARVEDILOL 3.125 MG TABLET GT (20:43)
[2025-05-24] MEDS: ATORVASTATIN 40 MG TABLET GT (20:43)
[2025-05-25] VITALS (10 sets, daily range): BP systolic 112–138; BP diastolic 60–80; PULSE 56–87; RESP 22–31; TEMP 36.2–36.9; O2SAT 98–99
[2025-05-25] MEDS: IPRATROPIUM/ALBUTEROL 3 ML AMPUL.NEB INH ×4 (00:13→18:42)
[2025-05-25] MEDS: CARVEDILOL 3.125 MG TABLET GT ×2 (08:36→21:23)
[2025-05-25] MEDS: CYANOCOBALAMIN (VITAMIN B-12) 500 MCG TABLET 1000 MCG GT (08:36)
[2025-05-25] MEDS: MULTIVITAMIN 1 TAB TABLET GT (08:37)
[2025-05-25] MEDS: DEXLANSOPRAZOLE 30 MG GT (08:37)
--- NOTE | 2025-05-25 14:07 | PC.SS ---
Resident is here on vent with trach in place and GT for medication and nutrition. Resident is unable to make needs known, due to cognitive impairment and absence of speech. He is total care, he will remain in current care and will continue to have all subacute care needs met by staff.
[2025-05-25] MEDS: ACETAMINOPHEN 325 MG TABLET GT (17:28)
[2025-05-25] MEDS: guaiFENesin Liq 100 MG/5 ML LIQUID GT (17:33)
[2025-05-25] MEDS: ATORVASTATIN 40 MG TABLET GT (21:22)
[2025-05-26] VITALS (10 sets, daily range): BP systolic 102–134; BP diastolic 66–77; PULSE 58–78; RESP 10–25; TEMP 36.4–36.8; O2SAT 97–100
[2025-05-26] MEDS: IPRATROPIUM/ALBUTEROL 3 ML AMPUL.NEB INH ×4 (00:34→20:04)
[2025-05-26] MEDS: CARVEDILOL 3.125 MG TABLET GT (08:47)
[2025-05-26] MEDS: CYANOCOBALAMIN (VITAMIN B-12) 500 MCG TABLET 1000 MCG GT (08:47)
[2025-05-26] MEDS: guaiFENesin Liq 100 MG/5 ML LIQUID GT (08:48)
[2025-05-26] MEDS: MULTIVITAMIN 1 TAB TABLET GT (08:48)
[2025-05-26] MEDS: DEXLANSOPRAZOLE 30 MG GT (08:48)
[2025-05-26] MEDS: ATORVASTATIN 40 MG TABLET GT (20:05)
[2025-05-27] VITALS (11 sets, daily range): BP systolic 97–150; BP diastolic 54–75; PULSE 61–80; RESP 10–27; TEMP 36.1–36.6; O2SAT 95–100
[2025-05-27] MEDS: IPRATROPIUM/ALBUTEROL 3 ML AMPUL.NEB INH ×3 (07:04→19:38)
[2025-05-27] MEDS: CYANOCOBALAMIN (VITAMIN B-12) 500 MCG TABLET 1000 MCG GT (08:37)
[2025-05-27] MEDS: MULTIVITAMIN 1 TAB TABLET GT (08:38)
[2025-05-27] MEDS: DEXLANSOPRAZOLE 30 MG GT (08:38)
[2025-05-27] MEDS: guaiFENesin Liq 100 MG/5 ML LIQUID GT (08:38)
[2025-05-27] MEDS: ACETAMINOPHEN 325 MG TABLET GT (08:38)
--- NOTE | 2025-05-27 09:49 | ESPR_ITS ---
Progress Note - SubAcute DIAGNOSIS (1) Chronic respiratory failure, unspecified whether with hypoxia or hypercapnia: Status: Chronic (2) Tracheostomy status: Status: Chronic (3) Chronic atrial fibrillation: Status: Chronic (4) Other sequelae of cerebral infarction: Status: Chronic (5) Persistent vegetative state: Status: Chronic (6) Hyperlipidemia, unspecified: Status: Chronic (7) G tube feedings: Status: Chronic (8) Diabetes type 2, controlled: Status: Chronic SUBJECTIVE Fever:: none GI:: none Shortness of Breath:: none Pain:: none OBJECTIVE Most recent vital signs: Last Vital Signs Temp 98 F 05/27/25 06:00 Pulse 67 05/27/25 08:37 Resp 20 05/27/25 06:00 BP 97/54 L 05/27/25 08:37 Pulse Ox 95 05/27/25 06:00 O2 Del Method Blow-by 05/27/25 06:00 FiO2 30 05/27/25 06:00 Neurological:: PVS Speech:: none Answers questions:: no Respiratory:: lungs clear Cardiovascular: RRR Abdomen: soft and nontender Extremities:: deformities Tracheostomy:: to blow by Feeding per:: G tube ASSESSMENT & PLAN Assessment: Pt with multiple organ compromise and fully dependent for all care and with poor prognosis. VSS Tolerating tube feeding.. Pt has been on Ventilator since his last admission to acute care. Not weanable. No pain issues Small chronic skin lesion on face. Monitor for any change and surgical consult if it increses in size or alters significantly. No change so far.VSS. No new issues Plan: Current treatment reviewed and continued t
[2025-05-27] MEDS: ATORVASTATIN 40 MG TABLET GT (22:47)
[2025-05-27] MEDS: CARVEDILOL 3.125 MG TABLET GT (22:47)
[2025-05-28] VITALS (11 sets, daily range): BP systolic 100–150; BP diastolic 53–78; PULSE 55–78; RESP 18–28; TEMP 36–36.4; O2SAT 95–100
[2025-05-28] MEDS: IPRATROPIUM/ALBUTEROL 3 ML AMPUL.NEB INH ×4 (00:40→18:00)
[2025-05-28] MEDS: CARVEDILOL 3.125 MG TABLET GT (08:37)
[2025-05-28] MEDS: CYANOCOBALAMIN (VITAMIN B-12) 500 MCG TABLET 1000 MCG GT (08:38)
[2025-05-28] MEDS: DEXLANSOPRAZOLE 30 MG GT (08:38)
[2025-05-28] MEDS: MULTIVITAMIN 1 TAB TABLET GT (08:38)
[2025-05-28] MEDS: ACETAMINOPHEN 325 MG TABLET GT (08:45)
[2025-05-28] MEDS: guaiFENesin Liq 100 MG/5 ML LIQUID GT (08:45)
[2025-05-28] MEDS: ATORVASTATIN 40 MG TABLET GT (20:42)
[2025-05-29] VITALS (11 sets, daily range): BP systolic 104–155; BP diastolic 65–82; PULSE 58–83; RESP 17–31; TEMP 35.9–36.8; O2SAT 97–100
[2025-05-29] MEDS: IPRATROPIUM/ALBUTEROL 3 ML AMPUL.NEB INH ×4 (00:09→18:53)
[2025-05-29] MEDS: ACETAMINOPHEN 325 MG TABLET GT ×2 (02:00→16:03)
[2025-05-29] MEDS: CARVEDILOL 3.125 MG TABLET GT (08:27)
[2025-05-29] MEDS: MULTIVITAMIN 1 TAB TABLET GT (08:28)
[2025-05-29] MEDS: DEXLANSOPRAZOLE 30 MG GT (08:28)
[2025-05-29] MEDS: CYANOCOBALAMIN (VITAMIN B-12) 500 MCG TABLET 1000 MCG GT (08:28)
[2025-05-29] MEDS: guaiFENesin Liq 100 MG/5 ML LIQUID GT (08:29)
[2025-05-29] MEDS: ATORVASTATIN 40 MG TABLET GT (20:55)
--- NOTE | 2025-05-29 21:23 | ESPR_ITS ---
Progress Note - SubAcute DIAGNOSIS (1) Chronic respiratory failure, unspecified whether with hypoxia or hypercapnia: Status: Chronic (2) Tracheostomy status: Status: Chronic (3) Chronic atrial fibrillation: Status: Chronic (4) Other sequelae of cerebral infarction: Status: Chronic (5) Persistent vegetative state: Status: Chronic (6) Hyperlipidemia, unspecified: Status: Chronic (7) G tube feedings: Status: Chronic (8) Diabetes type 2, controlled: Status: Chronic SUBJECTIVE Fever:: none GI:: none Shortness of Breath:: none Pain:: none OBJECTIVE Most recent vital signs: Last Vital Signs Temp 98.2 F 05/29/25 17:46 Pulse 58 L 05/29/25 20:55 Resp 24 H 05/29/25 17:46 BP 104/65 05/29/25 20:55 Pulse Ox 98 05/29/25 17:46 O2 Del Method Mechanical Ventilation 05/29/25 17:46 FiO2 30 05/29/25 13:00 Neurological:: PVS Speech:: none Answers questions:: no Respiratory:: lungs clear Cardiovascular: RRR Abdomen: soft and nontender Extremities:: deformities Tracheostomy:: to blow by Feeding per:: G tube ASSESSMENT & PLAN Assessment: Pt with multiple organ compromise and fully dependent for all care and with poor prognosis. VSS Tolerating tube feeding.. Pt has been on Ventilator since his last admission to acute care. Not weanable. No pain issues Small chronic skin lesion on face. Monitor for any change and surgical consult if it increses in size or alters significantly. No change so far.VSS. No new issues Plan: Current treatment reviewed and continued t
[2025-05-30] VITALS (8 sets, daily range): BP systolic 132–148; BP diastolic 63–78; PULSE 63–93; RESP 15–28; TEMP 36.2–36.4; O2SAT 98–100
[2025-05-30] MEDS: IPRATROPIUM/ALBUTEROL 3 ML AMPUL.NEB INH ×4 (00:30→18:59)
[2025-05-30] MEDS: MULTIVITAMIN 1 TAB TABLET GT (09:05)
[2025-05-30] MEDS: DEXLANSOPRAZOLE 30 MG GT (09:05)
[2025-05-30] MEDS: CARVEDILOL 3.125 MG TABLET GT ×2 (09:05→21:10)
[2025-05-30] MEDS: CYANOCOBALAMIN (VITAMIN B-12) 500 MCG TABLET 1000 MCG GT (09:05)
[2025-05-30] MEDS: ATORVASTATIN 40 MG TABLET GT (21:10)
[2025-05-31] VITALS (11 sets, daily range): BP systolic 88–125; BP diastolic 54–82; PULSE 50–96; RESP 20–30; TEMP 36.1–36.8; O2SAT 97–100
[2025-05-31] MEDS: IPRATROPIUM/ALBUTEROL 3 ML AMPUL.NEB INH ×4 (00:14→16:51)
[2025-05-31] MEDS: CYANOCOBALAMIN (VITAMIN B-12) 500 MCG TABLET 1000 MCG GT (08:38)
[2025-05-31] MEDS: MULTIVITAMIN 1 TAB TABLET GT (08:38)
[2025-05-31] MEDS: DEXLANSOPRAZOLE 30 MG GT (08:38)
[2025-05-31] MEDS: CARVEDILOL 3.125 MG TABLET GT (08:38)
[2025-05-31] MEDS: guaiFENesin Liq 100 MG/5 ML LIQUID GT (10:58)
[2025-05-31] MEDS: ATORVASTATIN 40 MG TABLET GT (20:20)
[2025-06-01] VITALS (9 sets, daily range): BP systolic 100–136; BP diastolic 63–87; PULSE 60–79; RESP 19–31; TEMP 36.2–36.6; O2SAT 97–100
[2025-06-01] MEDS: IPRATROPIUM/ALBUTEROL 3 ML AMPUL.NEB INH ×4 (00:28→18:49)
[2025-06-01] MEDS: CARVEDILOL 3.125 MG TABLET GT (08:31)
[2025-06-01] MEDS: MULTIVITAMIN 1 TAB TABLET GT (08:32)
[2025-06-01] MEDS: DEXLANSOPRAZOLE 30 MG GT (08:32)
[2025-06-01] MEDS: CYANOCOBALAMIN (VITAMIN B-12) 500 MCG TABLET 1000 MCG GT (08:32)
[2025-06-01] MEDS: ATORVASTATIN 40 MG TABLET GT (20:55)
[2025-06-01] MEDS: ACETAMINOPHEN 325 MG TABLET GT (21:03)
[2025-06-02] VITALS (10 sets, daily range): BP systolic 101–130; BP diastolic 57–84; PULSE 43–76; RESP 20–31; TEMP 36.3–36.6; O2SAT 97–100
[2025-06-02] MEDS: IPRATROPIUM/ALBUTEROL 3 ML AMPUL.NEB INH ×4 (00:36→19:30)
[2025-06-02] MEDS: CYANOCOBALAMIN (VITAMIN B-12) 500 MCG TABLET 1000 MCG GT (08:29)
[2025-06-02] MEDS: DEXLANSOPRAZOLE 30 MG GT (08:30)
[2025-06-02] MEDS: MULTIVITAMIN 1 TAB TABLET GT (08:30)
[2025-06-02] MEDS: guaiFENesin Liq 100 MG/5 ML LIQUID GT (08:31)
[2025-06-02] MEDS: ATORVASTATIN 40 MG TABLET GT (21:11)
--- NOTE | 2025-06-02 23:16 | ESPR_ITS ---
Progress Note - SubAcute DIAGNOSIS (1) Chronic respiratory failure, unspecified whether with hypoxia or hypercapnia: Status: Chronic (2) Tracheostomy status: Status: Chronic (3) Chronic atrial fibrillation: Status: Chronic (4) Other sequelae of cerebral infarction: Status: Chronic (5) Persistent vegetative state: Status: Chronic (6) Hyperlipidemia, unspecified: Status: Chronic (7) G tube feedings: Status: Chronic (8) Diabetes type 2, controlled: Status: Chronic SUBJECTIVE Fever:: none GI:: none Shortness of Breath:: none Pain:: none OBJECTIVE Most recent vital signs: Last Vital Signs Temp 97.4 F 06/02/25 17:45 Pulse 59 L 06/02/25 21:11 Resp 23 H 06/02/25 19:30 BP 118/76 06/02/25 21:11 Pulse Ox 99 06/02/25 19:30 O2 Del Method Mechanical Ventilation 06/02/25 17:45 O2 Flow Rate 98 06/01/25 16:33 FiO2 30 06/02/25 21:56 Neurological:: PVS Speech:: none Answers questions:: no Respiratory:: lungs clear Cardiovascular: RRR Abdomen: soft and nontender Extremities:: deformities Tracheostomy:: to blow by Feeding per:: G tube ASSESSMENT & PLAN Assessment: Pt with multiple organ compromise and fully dependent for all care and with poor prognosis. VSS Tolerating tube feeding.. Pt has been on Ventilator since his last admission to acute care. Not weanable. No pain issues Small chronic skin lesion on face. Monitor for any change and surgical consult if it increses in size or alters significantly. No change so far.VSS. No new issues Plan: Current treatment reviewed and continued t
[2025-06-03] VITALS (10 sets, daily range): BP systolic 100–147; BP diastolic 59–77; PULSE 47–77; RESP 10–26; TEMP 36.1–36.6; O2SAT 95–99
[2025-06-03] MEDS: IPRATROPIUM/ALBUTEROL 3 ML AMPUL.NEB INH ×4 (00:42→16:49)
[2025-06-03] MEDS: CARVEDILOL 3.125 MG TABLET GT ×2 (08:21→20:06)
[2025-06-03] MEDS: CYANOCOBALAMIN (VITAMIN B-12) 500 MCG TABLET 1000 MCG GT (08:21)
[2025-06-03] MEDS: MULTIVITAMIN 1 TAB TABLET GT (08:22)
[2025-06-03] MEDS: DEXLANSOPRAZOLE 30 MG GT (08:22)
[2025-06-03] MEDS: ATORVASTATIN 40 MG TABLET GT (20:06)
[2025-06-04] VITALS (9 sets, daily range): BP systolic 92–132; BP diastolic 59–72; PULSE 48–87; RESP 14–34; TEMP 36.3–36.6; O2SAT 97–100
[2025-06-04] MEDS: IPRATROPIUM/ALBUTEROL 3 ML AMPUL.NEB INH ×4 (06:06→18:33)
[2025-06-04] MEDS: CYANOCOBALAMIN (VITAMIN B-12) 500 MCG TABLET 1000 MCG GT (08:20)
[2025-06-04] MEDS: DEXLANSOPRAZOLE 30 MG GT (08:20)
[2025-06-04] MEDS: MULTIVITAMIN 1 TAB TABLET GT (08:21)
[2025-06-04] MEDS: ACETAMINOPHEN 325 MG TABLET GT (15:44)
[2025-06-04] MEDS: ATORVASTATIN 40 MG TABLET GT (20:22)
[2025-06-05] VITALS (10 sets, daily range): BP systolic 95–144; BP diastolic 52–83; PULSE 54–85; RESP 10–31; TEMP 36.2–37.5; O2SAT 96–100
[2025-06-05] MEDS: ACETAMINOPHEN 325 MG TABLET GT ×3 (00:15→16:56)
[2025-06-05] MEDS: IPRATROPIUM/ALBUTEROL 3 ML AMPUL.NEB INH ×4 (07:21→18:00)
[2025-06-05] MEDS: CARVEDILOL 3.125 MG TABLET GT ×2 (08:56→20:46)
[2025-06-05] MEDS: CYANOCOBALAMIN (VITAMIN B-12) 500 MCG TABLET 1000 MCG GT (08:57)
[2025-06-05] MEDS: DEXLANSOPRAZOLE 30 MG GT (08:57)
[2025-06-05] MEDS: MULTIVITAMIN 1 TAB TABLET GT (08:57)
[2025-06-05] MEDS: ATORVASTATIN 40 MG TABLET GT (20:45)
[2025-06-06] VITALS (10 sets, daily range): BP systolic 107–133; BP diastolic 61–76; PULSE 52–83; RESP 15–32; TEMP 36.1–36.2; O2SAT 98–100
[2025-06-06] MEDS: IPRATROPIUM/ALBUTEROL 3 ML AMPUL.NEB INH ×4 (00:32→16:51)
[2025-06-06] MEDS: ACETAMINOPHEN 325 MG TABLET GT (09:10)
[2025-06-06] MEDS: CARVEDILOL 3.125 MG TABLET GT (09:11)
[2025-06-06] MEDS: DEXLANSOPRAZOLE 30 MG GT (09:12)
[2025-06-06] MEDS: CYANOCOBALAMIN (VITAMIN B-12) 500 MCG TABLET 1000 MCG GT (09:12)
[2025-06-06] MEDS: MULTIVITAMIN 1 TAB TABLET GT (09:12)
[2025-06-06] MEDS: ATORVASTATIN 40 MG TABLET GT (20:51)
[2025-06-07] VITALS (10 sets, daily range): BP systolic 101–133; BP diastolic 55–84; PULSE 56–70; RESP 20–34; TEMP 36.1–36.3; O2SAT 98–100
[2025-06-07] MEDS: IPRATROPIUM/ALBUTEROL 3 ML AMPUL.NEB INH ×4 (00:35→18:05)
[2025-06-07] MEDS: CARVEDILOL 3.125 MG TABLET GT (08:09)
[2025-06-07] MEDS: CYANOCOBALAMIN (VITAMIN B-12) 500 MCG TABLET 1000 MCG GT (08:10)
[2025-06-07] MEDS: DEXLANSOPRAZOLE 30 MG GT (08:10)
[2025-06-07] MEDS: MULTIVITAMIN 1 TAB TABLET GT (08:11)
--- NOTE | 2025-06-07 13:59 | ESPR_ITS ---
Progress Note - SubAcute DIAGNOSIS (1) Chronic respiratory failure, unspecified whether with hypoxia or hypercapnia: Status: Chronic (2) Tracheostomy status: Status: Chronic (3) Chronic atrial fibrillation: Status: Chronic (4) Other sequelae of cerebral infarction: Status: Chronic (5) Persistent vegetative state: Status: Chronic (6) Hyperlipidemia, unspecified: Status: Chronic (7) G tube feedings: Status: Chronic (8) Diabetes type 2, controlled: Status: Chronic SUBJECTIVE Fever:: none GI:: none Shortness of Breath:: none Pain:: none OBJECTIVE Most recent vital signs: Last Vital Signs Temp 97.3 F 06/07/25 12:00 Pulse 59 L 06/07/25 13:03 Resp 29 H 06/07/25 13:03 BP 114/72 06/07/25 12:00 Pulse Ox 99 06/07/25 13:03 O2 Del Method Mechanical Ventilation 06/07/25 06:00 O2 Flow Rate 98 06/03/25 18:00 FiO2 30 06/07/25 13:03 Neurological:: PVS Speech:: none Answers questions:: no Respiratory:: lungs clear Cardiovascular: RRR Abdomen: soft and nontender Extremities:: deformities Tracheostomy:: to blow by Feeding per:: G tube ASSESSMENT & PLAN Assessment: Pt with multiple organ compromise and fully dependent for all care and with poor prognosis. VSS Tolerating tube feeding.. Pt has been on Ventilator since his last admission to acute care. Not weanable. No pain issues Small chronic skin lesion on face. Monitor for any change and surgical consult if it increses in size or alters significantly. No change so far.VSS. No new issues Plan: Current treatment reviewed and continued t
[2025-06-07] MEDS: ATORVASTATIN 40 MG TABLET GT (21:10)
[2025-06-07] MEDS: ACETAMINOPHEN 325 MG TABLET GT (21:12)
[2025-06-08] VITALS (9 sets, daily range): BP systolic 105–146; BP diastolic 57–82; PULSE 45–81; RESP 10–24; TEMP 36.1–36.4; O2SAT 97–99
[2025-06-08] MEDS: IPRATROPIUM/ALBUTEROL 3 ML AMPUL.NEB INH ×4 (07:01→16:51)
[2025-06-08] MEDS: MULTIVITAMIN 1 TAB TABLET GT (08:28)
[2025-06-08] MEDS: DEXLANSOPRAZOLE 30 MG GT (08:28)
[2025-06-08] MEDS: CYANOCOBALAMIN (VITAMIN B-12) 500 MCG TABLET 1000 MCG GT (08:28)
[2025-06-08] MEDS: ACETAMINOPHEN 325 MG TABLET GT ×2 (08:29→21:03)
[2025-06-08] MEDS: ATORVASTATIN 40 MG TABLET GT (21:01)
[2025-06-08] MEDS: CARVEDILOL 3.125 MG TABLET GT (21:02)
[2025-06-09] VITALS (10 sets, daily range): BP systolic 101–124; BP diastolic 57–74; PULSE 54–78; RESP 16–31; TEMP 36.1–36.4; O2SAT 94–100
[2025-06-09] MEDS: IPRATROPIUM/ALBUTEROL 3 ML AMPUL.NEB INH ×4 (00:35→18:20)
[2025-06-09] MEDS: CYANOCOBALAMIN (VITAMIN B-12) 500 MCG TABLET 1000 MCG GT (08:23)
[2025-06-09] MEDS: DEXLANSOPRAZOLE 30 MG GT (08:23)
[2025-06-09] MEDS: MULTIVITAMIN 1 TAB TABLET GT (08:23)
[2025-06-09] MEDS: ATORVASTATIN 40 MG TABLET GT (20:47)
[2025-06-10] VITALS (10 sets, daily range): BP systolic 109–142; BP diastolic 67–82; PULSE 52–79; RESP 18–24; TEMP 36.1–36.7; O2SAT 98–99
[2025-06-10] MEDS: IPRATROPIUM/ALBUTEROL 3 ML AMPUL.NEB INH ×4 (00:20→19:05)
[2025-06-10] MEDS: MULTIVITAMIN 1 TAB TABLET GT (08:53)
[2025-06-10] MEDS: ACETAMINOPHEN 325 MG TABLET GT (08:53)
[2025-06-10] MEDS: DEXLANSOPRAZOLE 30 MG GT (08:53)
[2025-06-10] MEDS: CARVEDILOL 3.125 MG TABLET GT ×2 (08:53→21:09)
[2025-06-10] MEDS: CYANOCOBALAMIN (VITAMIN B-12) 500 MCG TABLET 1000 MCG GT (08:53)
--- NOTE | 2025-06-10 10:45 | ESPR_ITS ---
Progress Note - SubAcute DIAGNOSIS (1) Chronic respiratory failure, unspecified whether with hypoxia or hypercapnia: Status: Chronic (2) Tracheostomy status: Status: Chronic (3) Chronic atrial fibrillation: Status: Chronic (4) Other sequelae of cerebral infarction: Status: Chronic (5) Persistent vegetative state: Status: Chronic (6) Hyperlipidemia, unspecified: Status: Chronic (7) G tube feedings: Status: Chronic (8) Diabetes type 2, controlled: Status: Chronic SUBJECTIVE Fever:: none GI:: none Shortness of Breath:: none Pain:: none OBJECTIVE Most recent vital signs: Last Vital Signs Temp 97.1 F 06/10/25 06:00 Pulse 71 06/10/25 08:53 Resp 22 H 06/10/25 07:01 BP 142/73 H 06/10/25 08:53 Pulse Ox 99 06/10/25 07:01 O2 Del Method Mechanical Ventilation 06/09/25 17:22 O2 Flow Rate 98 06/03/25 18:00 FiO2 30 06/10/25 07:01 Neurological:: PVS Speech:: none Answers questions:: no Respiratory:: lungs clear Cardiovascular: RRR Abdomen: soft and nontender Extremities:: deformities Tracheostomy:: to blow by Feeding per:: G tube ASSESSMENT & PLAN Assessment: Pt with multiple organ compromise and fully dependent for all care and with poor prognosis. VSS Tolerating tube feeding.. Pt has been on Ventilator since his last admission to acute care. Not weanable. No pain issues Small chronic skin lesion on face. Monitor for any change and surgical consult if it increses in size or alters significantly. No change so far.VSS. No new issues Plan: Current treatment reviewed and continued t
[2025-06-10] MEDS: ATORVASTATIN 40 MG TABLET GT (21:09)
[2025-06-11] VITALS (10 sets, daily range): BP systolic 105–147; BP diastolic 54–87; PULSE 51–76; RESP 20–30; TEMP 36.1–36.5; O2SAT 98–99
[2025-06-11] MEDS: IPRATROPIUM/ALBUTEROL 3 ML AMPUL.NEB INH ×4 (00:33→18:17)
[2025-06-11] MEDS: ACETAMINOPHEN 325 MG TABLET GT ×2 (01:15→20:15)
[2025-06-11] MEDS: CYANOCOBALAMIN (VITAMIN B-12) 500 MCG TABLET 1000 MCG GT (09:13)
[2025-06-11] MEDS: CARVEDILOL 3.125 MG TABLET GT ×2 (09:13→20:23)
[2025-06-11] MEDS: MULTIVITAMIN 1 TAB TABLET GT (09:14)
[2025-06-11] MEDS: DEXLANSOPRAZOLE 30 MG GT (09:14)
[2025-06-11] MEDS: ATORVASTATIN 40 MG TABLET GT (20:22)
[2025-06-12] VITALS (11 sets, daily range): BP systolic 121–158; BP diastolic 70–94; PULSE 52–90; RESP 11–32; TEMP 36.3–37.4; O2SAT 97–99; BMI 23.1
[2025-06-12] MEDS: IPRATROPIUM/ALBUTEROL 3 ML AMPUL.NEB INH ×4 (00:18→18:40)
[2025-06-12] MEDS: CARVEDILOL 3.125 MG TABLET GT ×2 (09:02→20:46)
[2025-06-12] MEDS: MULTIVITAMIN 1 TAB TABLET GT (09:02)
[2025-06-12] MEDS: DEXLANSOPRAZOLE 30 MG GT (09:02)
[2025-06-12] MEDS: CYANOCOBALAMIN (VITAMIN B-12) 500 MCG TABLET 1000 MCG GT (09:02)
[2025-06-12] MEDS: ACETAMINOPHEN 325 MG TABLET GT ×2 (09:02→20:30)
[2025-06-12] MEDS: ONDANSETRON HCL 4 MG TABLET PO (11:55)
--- NOTE | 2025-06-12 16:16 | PC.NURSE ---
Reviewed by RD and recommended to give water autoflush of 30 ml/hr and keep the same free fluid flush from nursing every shift.
--- NOTE | 2025-06-12 17:39 | PC.NURSE ---
Addendum entered and electronically signed by Monica Reyes RN 06/12/25 17:47: Dr Ramires ordered to hold the Lantus dose today due to vomiting. Original Note: Resident noted noted x 3 large emesis today , zofran tablet PGT was given. Afebrile. No s/s of respiratory distress noted. Abdomen soft and non tender. No residual noted. Dr Ramires was notified with an order to hold tube feeding x 6 hours and start on IVF D5 NS at 60 ml/hr x 6 hours, if no further vomiting , then restart the tube feeding at 25ml/hr, then increase by 10 ml every 8 hours until goal rate of 50ml/hr.
[2025-06-12] MEDS: ATORVASTATIN 40 MG TABLET GT (20:46)
[2025-06-13] VITALS (10 sets, daily range): BP systolic 106–125; BP diastolic 52–78; PULSE 47–75; RESP 18–32; TEMP 36–36.2; O2SAT 98–99
[2025-06-13] MEDS: IPRATROPIUM/ALBUTEROL 3 ML AMPUL.NEB INH ×4 (00:19→17:58)
[2025-06-13] MEDS: ACETAMINOPHEN 325 MG TABLET GT ×2 (04:00→21:37)
[2025-06-13] MEDS: CARVEDILOL 3.125 MG TABLET GT (08:04)
[2025-06-13] MEDS: DEXLANSOPRAZOLE 30 MG GT (08:05)
[2025-06-13] MEDS: MULTIVITAMIN 1 TAB TABLET GT (08:05)
[2025-06-13] MEDS: CYANOCOBALAMIN (VITAMIN B-12) 500 MCG TABLET 1000 MCG GT (08:05)
[2025-06-13] MEDS: ATORVASTATIN 40 MG TABLET GT (21:18)
[2025-06-13] MEDS: guaiFENesin Liq 100 MG/5 ML LIQUID 300 MG GT (21:24)
[2025-06-14] VITALS (11 sets, daily range): BP systolic 117–152; BP diastolic 72–97; PULSE 56–94; RESP 20–35; TEMP 36–37.5; O2SAT 97–100
[2025-06-14] MEDS: IPRATROPIUM/ALBUTEROL 3 ML AMPUL.NEB INH ×5 (00:03→23:35)
[2025-06-14] MEDS: CYANOCOBALAMIN (VITAMIN B-12) 500 MCG TABLET 1000 MCG GT (08:59)
[2025-06-14] MEDS: MULTIVITAMIN 1 TAB TABLET GT (08:59)
[2025-06-14] MEDS: DEXLANSOPRAZOLE 30 MG GT (08:59)
[2025-06-14] MEDS: CARVEDILOL 3.125 MG TABLET GT ×2 (08:59→20:12)
[2025-06-14] MEDS: ACETAMINOPHEN 325 MG TABLET GT ×3 (09:00→22:00)
[2025-06-14] MEDS: guaiFENesin Liq 100 MG/5 ML LIQUID 300 MG GT (09:01)
--- NOTE | 2025-06-14 13:30 | XR_ITS ---
EXAMINATION: AP chest single view TECHNIQUE: AP portable semiupright chest single view Date and time: June 14, 2025, 1407 hours, comparison December 19, 2024 INDICATIONS: Vomiting choking coughing this week. FINDINGS: Significant pneumonia left base Tracheostomy tube tip 4.6 cm above carlo Mild vascular congestion IMPRESSION: Significant left lung pneumonia
[2025-06-14] MEDS: ONDANSETRON HCL 4 MG TABLET PO (13:38)
[2025-06-14 17:10] LABS: Basophils # (Auto) 0.0 Thou/mm3 (0.0-0.2); Basophils % (Auto) 0 % (0-2.5); Eosinophils # (Auto) 0.0 Thou/mm3 (0.0-0.5); Eosinophils % (Auto) 0 % (0-10); Hematocrit 34.4 % (41.0-53.0); Hemoglobin 11.6 g/dL (13.5-16.0); Lymphocytes # (Auto) 0.8 Thou/mm3 (1.0-4.8); Lymphocytes % (Auto) 10 % (10-50); Mean Corpuscular HGB Conc 33.7 g/dl (31.0-37.0); Mean Corpuscular Hemoglobin 28.8 pg (25.0-35.0); Mean Corpuscular Volume 85 fL (80-100); Monocytes # (Auto) 0.5 Thou/mm3 (0.0-0.8); Monocytes % (Auto) 7 % (0-12); Neutrophils # (Auto) 6.5 Thou/mm3 (1.8-7.7); Neutrophils % (Auto) 83 % (37-80); Platelet Count 179 Thou/mm3 (140-440); RDW Standard Deviation 53.0 fL (35.1-43.9); Red Blood Count 4.03 Miln/mm3 (4.50-5.90); White Blood Count 7.9 Thou/mm3 (3.8-10.6)
[2025-06-14 17:11] LABS: Immature Granulocytes Auto 0.03 Thou/mm3 (0.00-0.00); Nucleated Red Blood Cell # 0.00 Thou/mm3 (0.00-0.00); Nucleated Red Blood Cell % 0 /100 WBC (0)
[2025-06-14 18:01] LABS: Collection Type, Urine Catheter; Squamous Epithelial Cell,Urine 0 /hpf (0-5)
[2025-06-14 18:06] LABS: Bilirubin,Urine Negative (Negative); Blood,Urine Negative (Negative); Clarity,Urine Clear (Clear/Hazy); Color,Urine Yellow (Lt Yel-Yel); Culture Indicated,Urine Not Indicated; Glucose, Urine Negative (Negative); Hyaline Casts,Urine < 1 /hpf (0-1); Ketones,Urine Negative (Negative); Leukocyte Esterase,Urine Negative (Negative); Nitrite,Urine Negative (Negative); PH,Urine 5.5 (5.0-7.0); Protein,Urine 1+ (Neg - Trace); RBC,Urine 2 /hpf (0-3); Specific Gravity,Urine 1.024 (1.001-1.035); Urobilinogen,Urine 2.0 mg/dL (0.0-1.0); WBC,Urine 4 /hpf (0-5)
--- NOTE | 2025-06-14 19:12 | PC.NURSE ---
At 1330 pt vent was alarming high peak pressure continuously. When this nurse entered room to check on resident she witness pt had a large brown formula like emesis and noticed resident was cyanotic with diffficulty breathing. Nurse immediately suctioned residents mouth with yaunker to clear airway within seconds resident lips returned to normal color pink . Formula feeding stopped at this time to prevent further emesis. Zofran 4mg x1 tablet given PRN at 1340. RN was notified and went to see and assess pt. RT on unit providing scheduled Respiratory Treatments to other residents was called and went to asses pt. PRN respiratoy TX administered and RT remained with resident until stable. Vital signs obtained as follow 99.3, 77, 30, 106/72 SPO2 97% with ventilator settings Simv 10, TV 450, and FIO2 at 30%. Charge notified MD and new orders received for Chest X -ray to R/O aspiration pneumonia. Chest x-ray done at 1415 . MD made aware of results: Pneumonia to Left lung. Orders received for fever protocol Influenza A & B, Covid, Blood cultures, sputum, UA & C&S.. Urinalysis collected via catheterization. IV # 24 guage to right hand x1 successful attempt by TIFFANY Hill. All specimens collected and sent to lab. WBC 7.9, Tylenol 325 mg x2 tablets given PRN for discomfort at 1555. No further emesis noticed at this time. Resident placed on contact precautions at this time.
[2025-06-14 19:13] LABS: COVID-19 Antigen (In-House) Negative (Negative)
[2025-06-14 19:19] LABS: Influenza A Ag Negative; Influenza B Ag Negative
[2025-06-14 19:50] LABS: Procalcitonin 0.08 ng/ml (0.0-0.49)
[2025-06-14] MEDS: ATORVASTATIN 40 MG TABLET GT (20:11)
[2025-06-14 20:29] LABS: Alanine Aminotransferase 10 U/L (10-49); Albumin, Serum 4.0 gm/dL (3.4-4.8); Albumin/Globulin Ratio 1.3 (1.2-2.2); Alkaline Phosphatase 97 U/L (46-116); Anion Gap 11 (7-16); Aspartate Amino Transferase 25 U/L (0-34); BUN/Creatinine Ratio 18 Ratio (12-20); Bilirubin,Total 0.9 mg/dL (0.3-1.2); Blood Urea Nitrogen 11 mg/dL (9-23); Calcium 9.1 mg/dL (8.3-10.6); Calcium (Corrected) 9.1 mg/dL (8.5-10.1); Carbon Dioxide 26.6 mMol/L (20.0-31.0); Chloride 90 mMol/L (98-107); Creatinine (Component) 0.6 mg/dL (0.6-1.3); Estimated Creatinine Clearance 87.1 mL/min (>60); Globulin 3.2 gm/dL (2.3-3.5); Glucose 136 mg/dL (74-106); Osmolality,Calculated 258 (275-295); Potassium 4.2 mMol/L (3.4-5.1); Sodium 128 mMol/L (136-145); Total Protein 7.2 gm/dL (5.7-8.2); eGFR > 60 See Note
--- NOTE | 2025-06-14 21:01 | PC.NURSE ---
Dr. Ramires notified of CBC results of CBC, UA. Resident awake, no s/s distress, no emesis at this time. Ordered to obtain CMP @ 1949. Called Dr. Ramires with CMP results @ 2044. New orders received. Water flushes changed to Normal Saline, TF rate decrease to half (25ml/hr) then increase every 4 hours by 10ml/hr to achieve to goal rate of 50ml/hr. Repeat CMP tomorrow evening.
--- NOTE | 2025-06-14 21:09 | PC.NURSE ---
Daughter, Bailee with her significant other, Channing, made aware that resident vomited earlier today. Labs were drawn, water changed to Normal Saline, and will repeat lab tomorrow evening. Appreciative of the call and had no questions at this time.
--- NOTE | 2025-06-14 21:43 | ESPR_ITS ---
Progress Note - SubAcute DIAGNOSIS (1) Chronic respiratory failure, unspecified whether with hypoxia or hypercapnia: Status: Chronic (2) Tracheostomy status: Status: Chronic (3) Chronic atrial fibrillation: Status: Chronic (4) Other sequelae of cerebral infarction: Status: Chronic (5) Persistent vegetative state: Status: Chronic (6) Hyperlipidemia, unspecified: Status: Chronic (7) G tube feedings: Status: Chronic (8) Diabetes type 2, controlled: Status: Chronic SUBJECTIVE Fever:: none GI:: none Shortness of Breath:: none Pain:: none OBJECTIVE Most recent vital signs: Last Vital Signs Temp 99.5 F 06/14/25 17:14 Pulse 79 06/14/25 20:12 Resp 31 H 06/14/25 17:55 BP 123/72 06/14/25 20:12 Pulse Ox 99 06/14/25 17:55 O2 Del Method Mechanical Ventilation 06/14/25 06:00 O2 Flow Rate 98 06/03/25 18:00 FiO2 30 06/14/25 17:55 Neurological:: PVS Speech:: none Answers questions:: no Respiratory:: lungs clear Cardiovascular: RRR Abdomen: soft and nontender Extremities:: deformities Tracheostomy:: to blow by Feeding per:: G tube ASSESSMENT & PLAN Assessment: Pt with multiple organ compromise and fully dependent for all care and with poor prognosis. VSS Tolerating tube feeding.. Pt has been on Ventilator since his last admission to acute care. Not weanable. No pain issues Small chronic skin lesion on face. Monitor for any change and surgical consult if it increses in size or alters significantly. Discussed with RN who informed me that pt had spiked low grade fever and w/u was initiated including CXR since pt has had occasional emesis as well as today and report was possible infiltrate in Lt lower lobe. Later CBC was reviewed which was normal. Chem. panel revealed Serum Na ++ was reported low at 128 meq/dL. All free water auto flush and manual were changed to normal saline and to repeat labs in 24 hours to ensure improvement in Serum Na levels towards normal. Plan: Current treatment reviewed and continued t
[2025-06-15] VITALS (9 sets, daily range): BP systolic 100–131; BP diastolic 56–91; PULSE 52–79; RESP 23–35; TEMP 36.1–36.6; O2SAT 97–99
[2025-06-15] MEDS: ACETAMINOPHEN 325 MG TABLET GT ×2 (03:30→08:55)
[2025-06-15] MEDS: IPRATROPIUM/ALBUTEROL 3 ML AMPUL.NEB INH ×3 (06:44→18:16)
[2025-06-15] MEDS: CARVEDILOL 3.125 MG TABLET GT ×2 (08:54→20:13)
[2025-06-15] MEDS: CYANOCOBALAMIN (VITAMIN B-12) 500 MCG TABLET 1000 MCG GT (08:54)
[2025-06-15] MEDS: DEXLANSOPRAZOLE 30 MG GT (08:55)
[2025-06-15] MEDS: guaiFENesin Liq 100 MG/5 ML LIQUID 300 MG GT (08:55)
[2025-06-15] MEDS: MULTIVITAMIN 1 TAB TABLET GT (08:55)
[2025-06-15 16:50] LABS: Alanine Aminotransferase 14 U/L (10-49); Albumin, Serum 3.8 gm/dL (3.4-4.8); Albumin/Globulin Ratio 1.3 (1.2-2.2); Alkaline Phosphatase 129 U/L (46-116); Anion Gap 8 (7-16); Aspartate Amino Transferase 32 U/L (0-34); BUN/Creatinine Ratio 19 Ratio (12-20); Bilirubin,Total 0.6 mg/dL (0.3-1.2); Blood Urea Nitrogen 13 mg/dL (9-23); Calcium 8.9 mg/dL (8.3-10.6); Calcium (Corrected) 9.1 mg/dL (8.5-10.1); Carbon Dioxide 26.8 mMol/L (20.0-31.0); Chloride 95 mMol/L (98-107); Creatinine (Component) 0.7 mg/dL (0.6-1.3); Estimated Creatinine Clearance 74.6 mL/min (>60); Globulin 3.0 gm/dL (2.3-3.5); Glucose 148 mg/dL (74-106); Osmolality,Calculated 263 (275-295); Potassium 4.2 mMol/L (3.4-5.1); Sodium 130 mMol/L (136-145); Total Protein 6.8 gm/dL (5.7-8.2); eGFR > 60 See Note
--- NOTE | 2025-06-15 17:29 | PC.NURSE ---
Resident on Normal saline flush PGT due to hyponatremia. Called Dr Ramires and verbally reported resident's CMP results with sodium level of 130. Resident stable at this time. Afebrile. No emesis noted. Order received to Renal panel in 3 days to monitor sodium level.
[2025-06-15] MEDS: ATORVASTATIN 40 MG TABLET GT (20:13)
[2025-06-16] VITALS (10 sets, daily range): BP systolic 92–164; BP diastolic 52–87; PULSE 61–78; RESP 22–35; TEMP 35.8–36.7; O2SAT 95–99
[2025-06-16] MEDS: IPRATROPIUM/ALBUTEROL 3 ML AMPUL.NEB INH ×4 (00:10→19:10)
[2025-06-16] MEDS: CYANOCOBALAMIN (VITAMIN B-12) 500 MCG TABLET 1000 MCG GT (09:12)
[2025-06-16] MEDS: MULTIVITAMIN 1 TAB TABLET GT (09:12)
[2025-06-16] MEDS: DEXLANSOPRAZOLE 30 MG GT (09:12)
[2025-06-16] MEDS: CARVEDILOL 3.125 MG TABLET GT ×2 (09:13→21:11)
[2025-06-16] MEDS: ACETAMINOPHEN 325 MG TABLET GT ×2 (13:50→23:29)
[2025-06-16] MEDS: ATORVASTATIN 40 MG TABLET GT (21:11)
[2025-06-17] VITALS: BP 144/88; PULSE 84; RESP 40; TEMP 36.4
[2025-06-17] MEDS: IPRATROPIUM/ALBUTEROL 3 ML AMPUL.NEB INH (00:09)
[2025-06-17 00:15] VITALS: PULSE 66; RESP 29; RESP 30; O2SAT 98
--- NOTE | 2025-06-17 00:35 | PC.NURSE ---
Resident respiratory rate noted in the 40's, suction provided, vitals taken:144/88,97.6,84,40, O2sat 98%, breathing bx. provided, resident continued with increase respirations, made aware, new order to send resident to ER for evaluation and treatment if indicated for respiratory distress, RUTH ANN Vincent made aware, resident send to ER with RN, ANATOMIC PATHOLOGY ASSISTANT, and two RT via bed at 0034.
--- NOTE | 2025-06-17 06:27 | PC.NURSE ---
pt sent to ER aprox. 0034 d/t respiratory distress,
--- NOTE | 2025-06-18 07:57 | PC.NURSE ---
06/14/25@1800: Dr. Ramires called by this group underwriter to inform of CXR result, which showed pt has left lobe pneumonia. Pt currently is running a temp of 99.6. Pt started on cooling measures, and IV 24G placed to left hand, incase pt needs antibiotics or fluids. WBC results are still pending. Dr. Ramires pending WBC results will determine whether to start antibiotics. Will continue to monitor for change in condition.
--- NOTE | 2025-07-09 13:49 | ESDS_ITS ---
RE: LIZZIE PEÑA : 1940 DATE OF ADMISSION: 12/19/2024 DATE OF DISCHARGE: 06/24/2025 14:06 DATE OF ADMISSION: 12/19/2024 DATE OF DISCHARGE: 06/17/2025 ADMITTING DIAGNOSES: Persistent vegetative state status post cerebrovascular accident; chronic respiratory failure/hypoxia/hypercarbia; with a tracheostomy and a feeding G-tube; essential hypertension, diabetes mellitus type 2, hyperlipidemia, gastroesophageal reflux disease, chronic atrial fibrillation. DISCHARGE DIAGNOSES: Persistent vegetative state status post cerebrovascular accident; chronic respiratory failure/hypoxia/hypercarbia; with a tracheostomy and a feeding G-tube; essential hypertension, diabetes mellitus type 2, hyperlipidemia, gastroesophageal reflux disease, chronic atrial fibrillation, pneumonia/urinary tract infection? HOSPITAL COURSE AND RELEVANT DATA: The patient, resident of [facility] for several years, was last admitted on 12/19/2024 for ongoing long-term care with the admitting diagnoses as referenced above. Usual general status remained fairly stable throughout till on 06/17/2025 patient was observed to be requiring higher FiO2s to maintain O2 saturations above 90% as well as spiking fever with borderline low blood pressure with the suspicion for impending sepsis. As per protocol, patient was transferred to the emergency room for possible admission to acute care for evaluation, admission and management. The same was followed and patient was admitted to acute care the same day. DT: 10:12:00 TT: 11:17:00 Ref: [id number] - TID: [id number]
== END 2025-06-24 14:06 | disposition short-term general hospital (02) | DRG 130 ==
PROVIDERS: Admitting Provider Specialist; Visit Provider Specialist
DX: J96.11 Chronic respiratory failure with hypoxia (principal); I48.20 Chronic atrial fibrillation, unspecified; E11.9 Type 2 diabetes mellitus without complications; E78.5 Hyperlipidemia, unspecified; I10 Essential (primary) hypertension; K21.9 Gastro-esophageal reflux disease without esophagitis; I69.398 Other sequelae of cerebral infarction; Z93.1 Gastrostomy status; Z93.0 Tracheostomy status; R40.3 Persistent vegetative state
CPT/HCPCS: 36415; 36600; 71045; 80053; 80069; 81001; 82803; 84145; 85025; 87040; 87077; 87086; 87186; 87205; 87502; 87811; 93005; 94002; 94004; 94640

== ENCOUNTER 2025-06-17 00:39 | Inpatient (IN) | payer MEDICAID, SELFPAY ==
[2025-06-17] VITALS (19 sets, daily range): BP systolic 122–165; BP diastolic 66–89; PULSE 61–90; RESP 22–36; TEMP 36.1–37.5; O2SAT 99–100; BMI 24.3
--- NOTE | 2025-06-17 00:48 | XR_ITS ---
EXAMINATION: AP chest single view TECHNIQUE: AP portable semiupright chest single view Date and time: June 17, 2025, 0100 hours, comparison June 14, 2025 INDICATIONS: Shortness of breath respiratory distress today. FINDINGS: Mild enlargement court monitor Significant pneumonia left base Endotracheal tube tip 4.3 cm above carlo. Mild vascular congestion. Prominent osteopenia IMPRESSION: Significant pneumonia left base
--- NOTE | 2025-06-17 00:48 | EKG_ITS ---
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
--- NOTE | 2025-06-17 00:51 | XR_ITS ---
Examination: CT chest, without intravenous contrast. CT abdomen, without intravenous contrast. CT pelvis, without intravenous contrast. 2-D sagittal and coronal reconstructions. 3-D reconstructions. Date and time of exam: June 17, 2025, 0121 hours INDICATION: Chest pain shortness of breath abdominal distention today CTDI vol (mgy) 12.31 DLP (MGycm) 917 Technique: Multiple CT images, 3.0 mm slice thickness, obtained chest, abdomen, pelvis, with the high-resolution 64 slice scanner.. Sagittal and coronal 2-D reconstructions are obtained. 3-D reconstructions Low dose protocols were performed. One or more of the following dose reduction techniques were used; automated exposure control, adjustment of the mA and/or KV according to patient size, use of iterative reconstruction technique. Findings: Tracheostomy tube tip projects above the carlo in satisfactory position Thoracic aortic calcification no aneurysmal dilatation Pulmonary artery segments are not enlarged. Moderate calcification left anterior send coronary artery Mild enlargement left atrium and left ventricle Prominent pneumonia left base with poorly defined nodular densities with mild pleural fluid No visualized liver splenic lesion No gallstones Prominent air and fluid distended colon without definite tumor mass in the colon noted The appendix is not visualized Abdominal aorta is not enlarged No hydronephrosis No pancreatic mass No diverticulitis No definite free air Severe osteopenia with diffuse thoracic and lumbar disc narrowing IMPRESSION: Significant pneumonia left base, follow-up chest imaging is needed to document clearing and exclude underlying poorly defined nodular densities Prominently air and fluid distended colon, clinical correlation advised, consider colonoscopy follow-up
[2025-06-17] MEDS: ALBUTEROL/IPRATROPIUM (Duoneb) RT SOL 3 ML NEBU INH ×6 (01:02→22:55)
[2025-06-17 01:04] LABS: Lactate (Lactic Acid) 1.3 mMol/L (0.4-2.0)
[2025-06-17 01:06] LABS: Collection Type, Urine Clean Catch; Squamous Epithelial Cell,Urine 0 /hpf (0-5)
[2025-06-17] MEDS: ACETAMINOPHEN IVPB 1,000 MG/100 ML VIAL 250 MG IV (01:10)
[2025-06-17] MEDS: MethylPREDNISolone SOD SUCC 62.5 MG/ML 2ML VIAL 125 MG IVP (01:10)
[2025-06-17] MEDS: SODIUM CHLORIDE 0.9% 1000 ML 1,000 ML 999 ML IV (01:11)
[2025-06-17] MEDS: CEFEPIME INJ 2 GM in SODIUM CHLORIDE 0.9% (Popper) 50 ML IV (01:11)
[2025-06-17] MEDS: ONDANSETRON INJ 2 MG/ML INJ 2 ML 4 MG IVP (01:11)
[2025-06-17 01:21] LABS: Bacteria,Urine 4+; Bilirubin,Urine Negative (Negative); Blood,Urine 2+ (Negative); Color,Urine Yellow (Lt Yel-Yel); Glucose, Urine Negative (Negative); Ketones,Urine Negative (Negative); Leukocyte Esterase,Urine Positive (Negative); Nitrite,Urine Positive (Negative); PH,Urine 8.0 (5.0-7.0); Protein,Urine 3+ (Neg - Trace); RBC,Urine 151 /hpf (0-3); Specific Gravity,Urine 1.028 (1.001-1.035); Triple Phosphate Crystal,Urine Rare; Urobilinogen,Urine 2.0 mg/dL (0.0-1.0); WBC,Urine 105 /hpf (0-5)
[2025-06-17 01:22] LABS: Sed Rate (ESR) 36 mm/hr (0-20)
[2025-06-17 01:22] LABS: Clarity,Urine Turbid (Clear/Hazy); Culture Indicated,Urine Yes
[2025-06-17 01:24] LABS: Basophils # (Auto) 0.0 Thou/mm3 (0.0-0.2); Basophils % (Auto) 1 % (0-2.5); Eosinophils # (Auto) 0.1 Thou/mm3 (0.0-0.5); Eosinophils % (Auto) 2 % (0-10); Hematocrit 36.8 % (41.0-53.0); Hemoglobin 11.7 g/dL (13.5-16.0); Immature Granulocytes Auto 0.02 Thou/mm3 (0.00-0.00); Lymphocytes # (Auto) 1.0 Thou/mm3 (1.0-4.8); Lymphocytes % (Auto) 16 % (10-50); Mean Corpuscular HGB Conc 31.8 g/dl (31.0-37.0); Mean Corpuscular Hemoglobin 28.7 pg (25.0-35.0); Mean Corpuscular Volume 90 fL (80-100); Monocytes # (Auto) 0.7 Thou/mm3 (0.0-0.8); Monocytes % (Auto) 12 % (0-12); Neutrophils # (Auto) 4.1 Thou/mm3 (1.8-7.7); Neutrophils % (Auto) 70 % (37-80); Nucleated Red Blood Cell # 0.00 Thou/mm3 (0.00-0.00); Nucleated Red Blood Cell % 0 /100 WBC (0); Platelet Count 178 Thou/mm3 (140-440); RDW Standard Deviation 58.4 fL (35.1-43.9); Red Blood Count 4.08 Miln/mm3 (4.50-5.90); White Blood Count 5.9 Thou/mm3 (3.8-10.6)
--- NOTE | 2025-06-17 01:24 | EDNOTE_ITS ---
ED SOB =RME/HPI General Chief Complaint: Shortness of Breath/Dyspnea Stated Complaint: TRANSFER FROM SUB ACUTE Time Seen by Provider: 06/17/25 00:44 Arrival date/time: 06/17/25 00:39 RME / HPI RME / HPI Narrative: See [facility] for Dr. Gomez's HPI Documentation. Related Data Home Medications ?Medication ?Instructions ?Recorded ?Confirmed atorvastatin 40 mg tablet 40 mg G-tube HS 01/08/2508/23 carvedilol 3.125 mg tablet 3.125 mg G-tube BID 5 01/08/25 cyanocobalamin (vitamin B-12) 500 1,000 mcg G-tube QDA Y 01/08/25 01/08/25 mcg tablet ondansetron HCl 4 mg tablet 4 mg PO Q6HR PRN Nausea Or Vomiting 01/08/25 01/08/25 Previous Rx's ?Medication ?Instructions ?Recorded insulin glargine 100 unit/mL (3 30 unit (0.3 mL) SCi H S 30 days #9 03/12/25 mL) subcutaneous pen (Basaglar mL KwikPen U-100 Insulin) dexlansoprazole 30 mg 30 mg G-tube QDAY for Gerd # 30 caps 03/30/25 capsule,biphase delayed release (Dexilant) acetaminophen 325 mg tablet 325 mg G-tube Q6HR PRN Walker n 30 05/28/25 days #90 tabs bisacodyl 10 mg rectal suppository 10 mg ME PRN PRN No BM Per Bowel 05/28/25 (Dulcolax (bisacodyl)) Management Protocol 30 days #12 ea magnesium hydroxide 400 mg/5 mL 30 ml G-tube PRN PRN C onstipation 05/28/25 oral suspension (Milk of Magnesia) 30 days #3,000 mL multivitamin 1 tab G-tube QDAY 30 days #3 0 tabs 05/28/25 polyethylene glycol 3350 17 gram 17 g G-tube PRN PRN N o BM Per 05/28/25 oral powder packet Bowel Management Protocol 30 days #14 ea sodium phosphates 19 gram-7 133 ml ME PRN PRN No BM Pe r Bowel 05/28/25 gram/118 mL enema (Fleet Enema) Management Protocol 30 days #133 mL carbamide peroxide 6.5 % ear drops 5 drp otic (ear) Q6 1D 281 days #15 05/29/25 (Ear Wax Removal Drops) mL carbamide peroxide 6.5 % ear drops 5 drp otic (ear) Q6 1D 281 days #15 05/29/25 (Ear Wax Removal Drops) mL carbamide peroxide 6.5 % ear drops 5 drp otic (ear) Q6 1D 282 days #15 05/29/25 (Ear Wax Removal Drops) mL carbamide peroxide 6.5 % ear drops 5 drp otic (ear) Q6 1D 282 days #15 05/29/25 (Ear Wax Removal Drops) mL carbamide peroxide 6.5 % ear drops 5 drp otic (ear) Q6 1D 283 days #15 05/29/25 (Ear Wax Removal Drops) mL carbamide peroxide 6.5 % ear drops 5 drp otic (ear) Q6 1D 283 days #15 05/29/25 (Ear Wax Removal Drops) mL carbamide peroxide 6.5 % ear drops 5 drp otic (ear) Q6 1D 284 days #15 05/29/25 (Ear Wax Removal Drops) mL carbamide peroxide 6.5 % ear drops 5 drp otic (ear) Q6 1D 284 days #15 05/29/25 (Ear Wax Removal Drops) mL ipratropium 0.5 mg-albuterol 3 mg 3 ml INH Q6HRRT 496 days #90 mL 05/29/25 (2.5 mg base)/3 mL nebulization soln guaifenesin 100 mg/5 mL oral 300 mg (15 mL) G-tube Q6H R PRN 06/12/25 liquid (Sima-Tussin) Cough 30 days #473 mL Allergies Allergy/AdvReac Type Severity Reaction Status Date / Time No Known Allergies Allergy Verified 06/17/25 00:43 Review of Systems Review of Systems Systems Reviewed: All systems reviewed, normal except as documented Past Medical History Past Medical History NEUROLOGIC: Positive Cerebrovascular Accident (2019) CARDIAC: Positive Cardiac Disorders, Atrial Fibrillation and Hypercholesterolemia RESPIRATORY: Positive Pneumonia GASTROINTESTINAL: Positive Gastrointestinal Disorders (Peg tube, trach) ENDOCRINE: Positive Endocrine Disorders and Diabetes Mellitus Type 2 Surgical History SURGICAL: Positive Abdominal Surgery, Tracheostomy and Gastrostomy (peg tube) ED Exam Narrative Physical exam: See [facility] for Dr. Gomez's Physical Exam Documentation. Course Quality Measures none Orders Category Date Time Status Bedside COVID-19 Antigen Test NOW Care 06/17/25 00:45 Active EKG (ED ONLY) *Do not use* NOW Care 06/17/25 00:48 Completed Saline [Insert IV] NOW Care 06/17/25 00:[address] chest abdomen pelvis wo Stat Exams 06/17/25 00:51 Taken EKG (ED Only) Stat Exams 06/17/25 00:48 Draft XR chest 1V portable Stat Exams 06/17/25 00:48 Taken ABG [Arterial Blood Gas] Stat Lab 06/17/25 01:48 Completed BNP [B-Type Natriuretic Peptide] Stat Lab 06/17/25 00:54 Completed Bilirubin,Direct Stat Lab 06/17/25 00:54 Completed Blood Culture (Lab) Stat Lab 06/17/25 00:51 Received CBC Stat Lab 06/17/25 00:54 Completed CMP [Comprehensive Metabolic Panel] Stat Lab 06/17/25 00:54 Completed CRP [C-Reactive Protein] Stat Lab 06/17/25 00:54 Completed D-Dimer Stat Lab 06/17/25 00:54 Completed ESR [Sed Rate (ESR)] Stat Lab 06/17/25 00:54 Completed Influenza A & B Rapid Panel Stat Lab 06/17/25 03:15 Completed Lactate (Lactic Acid) Stat Lab 06/17/25 00:54 Completed Lipase Stat Lab 06/17/25 00:54 Completed Magnesium Stat Lab 06/17/25 00:54 Completed Procalcitonin Stat Lab 06/17/25 00:54 Completed RSV [Respiratory Syncytial Virus Ag] Stat Lab 06/17/25 03:15 Completed TSH [Thyroid Stimulating Hormone] Stat Lab 06/17/25 00:54 Completed Troponin I Stat Lab 06/17/25 00:54 Completed UA, C/S IF [Urinalysis, C/S if Indicated] Stat Lab 06/17/25 01:01 Completed Urine Culture Stat Lab 06/17/25 01:01 Received Acetaminophen Ivpb [Ofirmev Inj] Med 06/17/25 00:45 Discontinued 1,000 mg in 100 ml IV X1 Albuterol/Ipratr Rt Emma [Duoneb Rt Emma] Med 06/17/25 00:45 Discontinued 3 ml INH X1 ONE Cefepime Inj [Maxipime Inj] 2 gm Med 06/17/25 00:45 Discontinued SODIUM CHLORIDE 0.9% (Popper) [Ns 0.9% (P)] 50 ml IV X1 MethylPREDNISolone.* [SoluMEDROL Inj] Med 06/17/25 00:45 Discontinued 125 mg IVP X1 ONE Ondansetron Inj [Zofran Inj] Med 06/17/25 00:45 Discontinued 4 mg IVP X1 ONE Sodium Chloride 0.9% 1000 ml [Ns] 1,000 ml Med 06/17/25 00:45 Discontinued IV 999 mls/hr Vancomycin Inj 2,000 mg Med 06/17/25 00:45 Discontinued Sodium Chloride 0.9% 500 ml [Ns] 500 ml IV X1 Volume Ventilator Stat RT 06/17/25 Active Volume Ventilator Stat RT 06/17/25 Active Vital Signs Vital signs: Vital Signs Temperature 99.5 F 06/17/25 00:49 Pulse Rate 74 06/17/25 00:49 Respiratory Rate 36 H 06/17/25 00:49 Blood Pressure 165/85 H 06/17/25 00:49 Pulse Oximetry (%) 100 06/17/25 00:49 Oxygen Delivery Method Mechanical Ventilation 06/17/25 00:49 Shortness of Breath / Dyspnea MDM Narrative MDM Narrative:: This section includes all my notes and documentations, including HPI, PE, and ED course. Tyler Gomez MD HPI: 85 y/o male with Hx of CVA, Atrial Fibrillation, Hypercholesterolemia, PEG tube, Tracheostomy, and Diabetes Mellitus Type 2 from our DP/SNF with several days of worsening respiratory distress. Recent chest x-ray showed pneumonia. But ABX not given due to normal WBC. Can't obtain history from the patient due to persistent vegetative state. ROS: Can't obtain history from the patient due to persistent vegetative state. Physical Exam: General: Vegetative state noted. In respiratory distress. Eyes: Conjunctivae and lids clear. PERRL. EOMI. ENT: No nasal congestion. Neck: Supple. Tracheostomy noted. Heart: Irregularly irregular (72 bpm). Lungs: In respiratory distress. Decreased air movement with severe bilateral rails. Abdomen: Soft. PEG tube noted. Skin: Warm and dry. Neuro: In vegetative state. I reviewed senior care notes. I reviewed all diagnostic test results: My interpretation of the EKG is: Atrial fibrillation (72 bpm) with nonspecific ST-T changes. My interpretation of the chest x-ray is infiltrates. My review of the Chest/Abdomen/Pelvis CT report is LLL pneumonia and ileus. Blood tests remarkable for ESR 36, D-dimer 2780, CRP 4.9, BNP 135, and negative troponin. UA showed positive nitrite, positive leukocyte esterase, 151 RBC, 105 WBC, and 4+ bacteria. ABG showed pH 7.38, pCO2 49, pHCO3 29. Covid/Influenza/RSV: Negative. At this point, diagnoses include: Pneumonia UTI Ileus Chronic respiratory failure with hypoxia Treatment here included: Vancomycin 2 G IV Duoneb Tylenol 1 G IV IVF Cefepime 2 G IV SoluMedrol 125 mg IV Zofran 4 mg IV Patient remained stable. 02:40 - I discussed the case with our hospitalist. About the presentation and exam and diagnostics and treatments here. And need of further care in the hospital. Will accept the patient. Tyler Gomez MD Patient data External records reviewed:: [facility] previous records (Reviewed prior ED records from 12/08/24. Patient was seen for Acute respiratory acidosis.) and [facility] records Clinical information provided by:: rn cardiac rehab (Nurse) Social determinants that could affect healthcare access:: housing (SNF) Patient has the following chronic illnesses:: Atrial Fibrillation, Hypercholesterolemia, PEG tube, Tracheostomy, Diabetes Mellitus Type 2 How is presenting disease/condition affected by chronic disease/condition?: exacerbated by Evaluation data The following diagnostics were reviewed and interpreted by me:: EKG tracing(s) (My interpretation of the EKG is: Atrial fibrillation (72 bpm) with nonspecific ST-T changes. Tyler Gomez MD) Lab and/or radiology exams considered but not ordered:: None Interpretation Summary: I reviewed all diagnostic test results: My interpretation of the EKG is: Atrial fibrillation (72 bpm) with nonspecific ST-T changes. My interpretation of the chest x-ray is infiltrates. My review of the Chest/Abdomen/Pelvis CT report is LLL pneumonia and ileus. Blood tests remarkable for ESR 36, D-dimer 2780, CRP 4.9, BNP 135, and negative troponin. UA showed positive nitrite, positive leukocyte esterase, 151 RBC, 105 WBC, and 4+ bacteria. ABG showed pH 7.38, pCO2 49, pHCO3 29. Covid/Influenza/RSV: Negative. Medications / Prescriptions Medications or Prescriptions considered but not ordered:: None Medication administrations:: Medication Administration History Acetaminophen (Acetaminophen 325 Mg Tablet) 650 mg PO Q6H PRN PRN Reason: Fever >101.5 Stop: 07/17/25 03:20 Albuterol/Ipratropium (Albuterol/Ipratropium (Duoneb) Rt Emma 3 Ml Nebu) 3 ml INH Q4HRRT KURT Stop: 07/17/25 06:59 Lactated Ringer's (Lactated Ringers) 1,000 mls @ 75 mls/hr IV .[id number] KURT Stop: 06/17/25 16:49 Last Admin: 06/17/25 03:39 Dose: 75 mls/hr Documented By: NEPTALI Piperacillin/Tazobactam/Dextrose (Zosyn) 50 mls @ 100 mls/hr IV Q6HR KURT; Protocol Stop: 06/24/25 03:24 Piperacillin/Tazobactam/Dextrose (Zosyn) 3.375 g in 50 mls @ 100 mls/hr IV X1 ONE; Protocol Stop: 06/17/25 06:09 Pharmacy Consult (Vancomycin Pharmacy To Dose 1 Each Each) 1 each IV QDAY KURT Stop: 07/17/25 08:59 Sennosides (Senna Tablet) 1 tab PO QDAY PRN; Protocol PRN Reason: constipation Stop: 07/17/25 03:20 Discontinued Medications Albuterol/Ipratropium (Albuterol/Ipratropium (Duoneb) Rt Emma 3 Ml Nebu) 3 ml INH X1 ONE Stop: 06/17/25 00:46 Last Admin: 06/17/25 01:02 Dose: 3 ml Documented By: JT Acetaminophen (Ofirmev Inj) 1,000 mg in 100 mls @ 250 mls/hr IV X1 ONE Stop: 06/17/25 01:08 Last Infusion: 06/17/25 01:34 Dose: Infused Documented By: Admin: 06/17/25 01:10 Dose: 250 mls/hr Documented By: KIRK Sodium Chloride (Ns) 1,000 mls @ 999 mls/hr IV .Q1H1M ONE Stop: 06/17/25 01:45 Last Infusion: 06/17/25 02:37 Dose: Infused Documented By: Admin: 06/17/25 01:11 Dose: 999 mls/hr Documented By: KIRK Vancomycin HCl 2,000 mg/ (Sodium Chloride) 500 mls @ 150 mls/hr IV X1 ONE Stop: 06/17/25 04:04 Last Admin: 06/17/25 02:20 Dose: 150 mls/hr Documented By: KIRK Cefepime HCl 2 gm/ Sodium (Chloride) 50 mls @ 100 mls/hr IV X1 ONE Stop: 06/17/25 01:14 Last Infusion: 06/17/25 01:42 Dose: Infused Documented By: Admin: 06/17/25 01:11 Dose: 100 mls/hr Documented By: KIRK Piperacillin/Tazobactam/Dextrose (Zosyn) 3.375 g in 50 mls @ 100 mls/hr IV X1 ONE; Protocol Stop: 06/17/25 04:14 Methylprednisolone Sodium Succinate (Methylprednisolone Sod Succ 62.5 Mg/Ml 2ml Vial) 125 mg IVP X1 ONE Stop: 06/17/25 00:46 Last Admin: 06/17/25 01:10 Dose: 125 mg Documented By: KIRK Ondansetron HCl (Ondansetron Inj 2 Mg/Ml Inj 2 Ml) 4 mg IVP X1 ONE; Protocol Stop: 06/17/25 00:46 Last Admin: 06/17/25 01:11 Dose: 4 mg Documented By: KIRK Treatment here from vt included: Vancomycin 2 G IV Duoneb Tylenol 1 G IV IVF Cefepime 2 G IV SoluMedrol 125 mg IV Zofran 4 mg IV Consultations Consultation(s) initiated? (list below): Yes Consultation #1 (Physician, Specialty, Details): I discussed the case with our hospitalist. About the presentation and exam and diagnostics and treatments here. And need of further care in the hospital. Will accept the patient. Time: 02:40 Diagnosis Shortness of Breath Differential Diagnosis: congestive heart failure, community acquired pneumonia and pulmonary embolism Most likely diagnosis given after review of the tests above:: Pneumonia UTI Ileus Chronic respiratory failure with hypoxia Admission Indicated Admission indicated?: indicated Explain why admission is indicated or not indicated:: Pneumonia UTI Admission Request Was there a request for admission?: Yes Admission Attestation Admission request attestation: Discussed case with Hospitalist service regarding admission. Discussed patients ED course, exam findings, labs, and radiology results. Agreed to accept the patient for admission. Disposition Plan Disposition Plan: Admit Discharge Plan Plan Patient Disposition: Admit Acute Care w/in Hospital Problem List Clinical Impression: Pneumonia, UTI (urinary tract infection), Chronic respiratory failure with hypoxia
[2025-06-17 01:26] LABS: B-Type Natriuretic Peptide 135 pg/mL (0-100)
[2025-06-17 01:28] LABS: D-Dimer 2780 ng/mL (<600)
[2025-06-17 01:34] LABS: Alanine Aminotransferase 20 U/L (10-49); Albumin, Serum 3.8 gm/dL (3.4-4.8); Albumin/Globulin Ratio 1.3 (1.2-2.2); Alkaline Phosphatase 118 U/L (46-116); Anion Gap 8 (7-16); Aspartate Amino Transferase 15 U/L (0-34); BUN/Creatinine Ratio 20 Ratio (12-20); Bilirubin,Direct 0.2 mg/dL (0.0-0.3); Bilirubin,Total 0.5 mg/dL (0.3-1.2); Blood Urea Nitrogen 10 mg/dL (9-23); Calcium 8.9 mg/dL (8.3-10.6); Calcium (Corrected) 9.1 mg/dL (8.5-10.1); Carbon Dioxide 28.8 mMol/L (20.0-31.0); Chloride 103 mMol/L (98-107); Creatinine (Component) 0.5 mg/dL (0.6-1.3); Estimated Creatinine Clearance 111.5 mL/min (>60); Globulin 3.0 gm/dL (2.3-3.5); Glucose 137 mg/dL (74-106); Lipase 30 U/L (12-53); Magnesium 1.9 mg/dL (1.6-2.6); Osmolality,Calculated 280 (275-295); Potassium 4.2 mMol/L (3.4-5.1); Procalcitonin 0.07 ng/ml (0.0-0.49); Sodium 140 mMol/L (136-145); Thyroid Stimulating Hormone 3.89 uIU/mL (0.55-4.78); Total Protein 6.8 gm/dL (5.7-8.2); Troponin I < 0.020 ng/mL (0.0-0.045); eGFR > 60 See Note
--- NOTE | 2025-06-17 01:41 | PC.RT ---
vent high pressuring in the 40s Rr 40s, mode changed to [facility]. Ant haque with changes pip pressures in the 20s RR 27 sats 100%
[2025-06-17 01:44] LABS: C-Reactive Protein 4.9 mg/dL (0.0-0.9)
[2025-06-17 01:52] LABS: Base Excess 6 (-3-3); HCO3 31 mEq/L (20-26); Inspired Oxygen, FIO2 30 %; O2 Saturation 100 % (91-98); PCO2 49 mmHg (32.0-48.0); PO2 121 mmHg (83-108); pH, Arterial 7.41 (7.35-7.45)
[2025-06-17 01:54] LABS: Allen Test Performed/OK; Puncture Site Right Radial
[2025-06-17] MEDS: Vancomycin Inj 2,000 MG in SODIUM CHLORIDE 0.9% 500 ML 500 ML 150 MG IV (02:20)
--- NOTE | 2025-06-17 02:34 | PRELIM_ITS ---
CT scan of the chest, abdomen and pelvis without intravenous contrast (axial sections with sagittal and coronal reformats) June 17, 2025 0121 hours Clinical History: SOB and abdominal distension Comparison: No prior study is available for comparison. Findings: There is consolidation and nodular opacities in the left lower lobe. There is a small left and trace right pleural effusions. A tracheostomy tube is seen. The aorta is unremarkable on this noncontrast study. No evidence of mediastinal mass or lymphadenopathy. There is no pericardial effusion. The liver, gallbladder, spleen, pancreas, adrenals and kidneys are unremarkable on this noncontrast study. Gastrostomy tube is seen inplace. There are dilated and gas-distended small and large bowel loops with transition is likely at the level of the splenic flexure. The appendix is not visualized. A Gibson catheter is seen in the urinary bladder. There is no free fluid or free air. Degenerative changes and osteopenia are identified in the spine. Impression: 1. Consolidation and nodular opacities in the left lower lobe, suggestive of pneumonic infiltrates. Recommend clinical correlation and follow-up. 2. Small left and trace right pleural effusions. 3. Dilated and gas-distended small and large bowel loops with transition is likely at the level of the splenic flexure, suggestive of partial large bowel obstruction versus ileus. Recommend clinical correlation and follow-up. 4. Other findings as described above. Report Electronically Signed By: Serafin Owens 06/17/2025 2:33:31 AM [EST]
[2025-06-17] MEDS: RINGERS LACTATED 1000 ML 1,000 ML 75 ML IV (03:39)
[2025-06-17 03:48] LABS: Respiratory Syncytial Virus Ag Negative (Negative)
--- NOTE | 2025-06-17 03:51 | PD.RESHP ---
Documentation for date of: 06/17/25 [facility] History of Present Illness Chief complaint: shortness of Breath History of present illness: This is a 85 yr old male with PMH of non-verbal, vegetative state,CVA 2019, tracheostomy, PEG tube feed, atrial fibrillation, hypertension, hyperlipidemia and diabetes brought to ED from subacute in view of shortness of breath. ED visit vitals 142/70, pulse rate 68, respiratory 22 saturating 100% on ventilator .Setting Mode:PRVC,PEEP:5, FIO2 30 Pertinent labs are hemoglobin 11.7, hematocrit 36.8, ESR 36, D-dimer 2780, pCO2 49, pO2 112, HCO3 29, glucose 137, CRP 4.9, BNP 135. Urinalysis nitrate positive, leukocyte esterase positive, turbid looking, urine bacteria 4+, urine blood 2+. CT chest showing consolidation and opacities in the left lower lobe, small left and trace right pleural effusion. CT abdomen showing dilated and gas distended loops at splenic flexure suggesting of partial large bowel obstruction versus ileus Past surgical history: Tracheostomy and a PEG tube. Family history: Lives at [facility]. Review of Systems Review of Systems Systems Reviewed: All systems reviewed, normal except as documented Exam Vital Signs Temp Pulse Resp BP Pulse Ox O2 Del Method FiO2 97.6 F 68 24 H 142/70 H 100 BiPAP 30 06/17/25 03:00 06/17/25 03:00 06/17/25 03:00 06/17/25 03:00 06/17/25 03:00 06/17/25 03:00 06/17/25 02:34 Narrative Exam General: Nonverbal at baseline, HEENT: NCAT, No PERRLA and Tracheostomy tube in place Cardiovascular: Irregularly irregular, no murmurs or rubs heard, no JVD Respiratory: Coarse breath sounds, no crackles or wheezing noted, trach in place Abdomen: Tense tender PEG tube in place Musculoskeletal: No pitting edema Neuro: Nonverbal at baseline, GCS 9 Results: Labs 06/17/25 04:46 06/17/25 04:46 Labs: Short CBC 06/17/25 Range/Units 00:54 WBC 5.9 (3.8-10.6) Thou/mm3 Hgb 11.7 L (13.5-16.0) g/dL Hct 36.8 L (41.0-53.0) % Plt Count 178 (140-440) Thou/mm3 BMP 06/17/25 00:54 Sodium 140 D Potassium 4.2 Chloride 103 Carbon Dioxide 28.8 BUN 10 Creatinine 0.5 L Glucose 137 H Calcium 8.9 Cardiac Enzymes 06/17/25 Range/Units 00:54 Troponin I < 0.020 (0.0-0.045) ng/mL Liver Function 06/17/25 Range/Units 00:54 Total Bilirubin 0.5 (0.3-1.2) mg/dL Direct Bilirubin 0.2 (0.0-0.3) mg/dL AST 15 (0-34) U/L ALT 20 (10-49) U/L Alkaline Phosphatase 118 H (46-116) U/L Albumin 3.8 (3.4-4.8) gm/dL Urine 06/17/25 Range/Units 01:01 Urine Color Yellow (Lt Yel-Yel) Urine Clarity Turbid A (Clear/Hazy) Urine pH 8.0 H (5.0-7.0) Ur Specific [place] 1.028 (1.001-1.035) Urine Protein 3+ A (Neg - Trace) Urine Glucose (UA) Negative (Negative) ABG Interpretation ABG results: 06/17/25 01:48 ABG pH 7.41 ABG pCO2 49 H ABG pO2 121 H ABG HCO3 31 H ABG O2 Saturation 100 H ABG Base Excess 6 H Quality Measures Quality Measures none Advance care planning discussed with:: patient Medications Home Medications and Allergies Home Medications ?Medication ?Instructions ?Recorded ?Confirmed ?Type atorvastatin 40 mg tablet 40 mg G-tube HS 01/08/25 01/08/25 History carvedilol 3.125 mg tablet 3.125 mg G-tube BID 01/08/25 01/08/25 History cyanocobalamin (vitamin B-12) 500 1,000 mcg G-tube QDAY 01/08/25 01/08/25 History mcg tablet ondansetron HCl 4 mg tablet 4 mg PO Q6HR PRN Nausea Or Vomiting 01/08/25 01/08/25 History Allergies Allergy/AdvReac Type Severity Reaction Status Date / Time No Known Allergies Allergy Verified 06/17/25 00:43 Visit Medications Acetaminophen (Acetaminophen 325 Mg Tablet) 650 mg PO Q6H PRN PRN Reason: Fever >101.5 Stop: 07/17/25 03:20 Albuterol/Ipratropium (Albuterol/Ipratropium (Duoneb) Rt Emma 3 Ml Nebu) 3 ml INH Q4HRRT KURT Stop: 07/17/25 06:59 Vancomycin HCl 2,000 mg/ (Sodium Chloride) 500 mls @ 150 mls/hr IV X1 ONE Stop: 06/17/25 04:04 Last Admin: 06/17/25 02:20 Dose: 150 mls/hr Lactated Ringer's (Lactated Ringers) 1,000 mls @ 75 mls/hr IV .[id number] KURT Stop: 06/17/25 16:49 Last Admin: 06/17/25 03:39 Dose: 75 mls/hr Piperacillin/Tazobactam/Dextrose (Zosyn) 50 mls @ 100 mls/hr IV Q6HR KURT; Protocol Stop: 06/24/25 03:24 Piperacillin/Tazobactam/Dextrose (Zosyn) 3.375 g in 50 mls @ 100 mls/hr IV X1 ONE; Protocol Stop: 06/17/25 06:09 Pharmacy Consult (Vancomycin Pharmacy To Dose 1 Each Each) 1 each IV QDAY KURT Stop: 07/17/25 08:59 Sennosides (Senna Tablet) 1 tab PO QDAY PRN; Protocol PRN Reason: constipation Stop: 07/17/25 03:20 Discontinued Medications Albuterol/Ipratropium (Albuterol/Ipratropium (Duoneb) Rt Emma 3 Ml Nebu) 3 ml INH X1 ONE Stop: 06/17/25 00:46 Last Admin: 06/17/25 01:02 Dose: 3 ml Acetaminophen (Ofirmev Inj) 1,000 mg in 100 mls @ 250 mls/hr IV X1 ONE Stop: 06/17/25 01:08 Last Infusion: 06/17/25 01:34 Dose: Infused Sodium Chloride (Ns) 1,000 mls @ 999 mls/hr IV .Q1H1M ONE Stop: 06/17/25 01:45 Last Infusion: 06/17/25 02:37 Dose: Infused Cefepime HCl 2 gm/ Sodium (Chloride) 50 mls @ 100 mls/hr IV X1 ONE Stop: 06/17/25 01:14 Last Infusion: 06/17/25 01:42 Dose: Infused Piperacillin/Tazobactam/Dextrose (Zosyn) 3.375 g in 50 mls @ 100 mls/hr IV X1 ONE; Protocol Stop: 06/17/25 04:14 Methylprednisolone Sodium Succinate (Methylprednisolone Sod Succ 62.5 Mg/Ml 2ml Vial) 125 mg IVP X1 ONE Stop: 06/17/25 00:46 Last Admin: 06/17/25 01:10 Dose: 125 mg Ondansetron HCl (Ondansetron Inj 2 Mg/Ml Inj 2 Ml) 4 mg IVP X1 ONE; Protocol Stop: 06/17/25 00:46 Last Admin: 06/17/25 01:11 Dose: 4 mg Assessment & Plan Plan This is a 85 yr old male with PMH of non-verbal, vegetative state,CVA 2019, tracheostomy, PEG tube feed, atrial fibrillation, hypertension, hyperlipidemia and diabetes brought to ED from subacute in view of shortness of breath.He was admitted for possible pneumonia and UTI. #Acute on chronic Hypercapnic respiratory failure # Pneumonia. # Respiratory acidosis pCO2 49, pO2 112, HCO3 29 Shortness of breath, opacities in left lower lobe. ESR 36, CRP 4.9 ?Starting on IV Vanco and Zosyn. - Duonebs q4hr as needed # UTI. Urinalysis nitrate positive, leukocyte esterase positive, turbid looking, urine bacteria 4+, urine blood 2+. Follow up Blood and urine culture ?IV medication, cover UTI as well. #? Large bowel partial obstruction versus ileus CT scan showing gas dilated loops of large bowel - Putting on NPO - Ordered NG tube # Hypertension # Hyperlipidemia Restarting home medications carvedilol 3.125 mg twice daily Atorvastatin 40 mg at bedtime. # Diabetes Takes insulin 30 units in subacute -Starting on sliding scale and degludec 20 units # Constipation Starting Home medications for constipation -Bisacodyl suppository 10 mg OH as needed -Milk of magnesia 30 mL GT as needed oral suppository -MiraLAX 17 g GT as needed -start Fleet enema 133 mL OH as needed Code status: DNR DVT prophylaxis: SCD Diet: NPO Gibson: None Lines: PIV Supplemental O2:On ventilation Disposition: Tele I discussed this case with my senior Dr. Duran and my attending Dr. Gertrude Stack MD,[id number] Attending Provider Attestation/Addendum 85-year-old male patient with old CVA, PEG tube, chronic respiratory failure on trach admitted for pneumonia. The patient is ACMV 30% FiO2 450 tidal volume. The patient has PEG tube. He has increased large bowel gas on CT scan. Patient will need repeat studies. Suppository was ordered to stimulate bowel movement. Patient may need surgical evaluation if there is no improvement of abdominal distention and or x-ray findings. G-tube will be adjusted to low intermittent suction, instructions given to RN in ED. GI consult. Patient will receive IV antibiotic treatment. I discussed with and supervised the resident physician who took care of this patient. I agree with the assessment and plan as above.
[2025-06-17 04:18] LABS: Influenza A Ag Negative; Influenza B Ag Negative
[2025-06-17 04:22] LABS: Allen Test Performed/OK; Base Excess 3 (-3-3); HCO3 29 mEq/L (20-26); Inspired Oxygen, FIO2 30 %; O2 Saturation 99 % (91-98); PCO2 49 mmHg (32.0-48.0); PO2 112 mmHg (83-108); Puncture Site Right Radial; pH, Arterial 7.38 (7.35-7.45)
[2025-06-17 05:11] LABS: Basophils # (Auto) 0.0 Thou/mm3 (0.0-0.2); Basophils % (Auto) 0 % (0-2.5); Eosinophils # (Auto) 0.0 Thou/mm3 (0.0-0.5); Eosinophils % (Auto) 1 % (0-10); Hematocrit 33.3 % (41.0-53.0); Hemoglobin 10.6 g/dL (13.5-16.0); Immature Granulocytes Auto 0.03 Thou/mm3 (0.00-0.00); Lymphocytes # (Auto) 0.5 Thou/mm3 (1.0-4.8); Lymphocytes % (Auto) 8 % (10-50); Mean Corpuscular HGB Conc 31.8 g/dl (31.0-37.0); Mean Corpuscular Hemoglobin 28.9 pg (25.0-35.0); Mean Corpuscular Volume 91 fL (80-100); Monocytes # (Auto) 0.2 Thou/mm3 (0.0-0.8); Monocytes % (Auto) 3 % (0-12); Neutrophils # (Auto) 5.7 Thou/mm3 (1.8-7.7); Neutrophils % (Auto) 88 % (37-80); Nucleated Red Blood Cell # 0.00 Thou/mm3 (0.00-0.00); Nucleated Red Blood Cell % 0 /100 WBC (0); Platelet Count 151 Thou/mm3 (140-440); RDW Standard Deviation 59.6 fL (35.1-43.9); Red Blood Count 3.67 Miln/mm3 (4.50-5.90); White Blood Count 6.4 Thou/mm3 (3.8-10.6)
[2025-06-17 05:51] LABS: Alanine Aminotransferase 16 U/L (10-49); Albumin, Serum 3.3 gm/dL (3.4-4.8); Albumin/Globulin Ratio 1.2 (1.2-2.2); Alkaline Phosphatase 95 U/L (46-116); Anion Gap 8 (7-16); Aspartate Amino Transferase 23 U/L (0-34); BUN/Creatinine Ratio 20 Ratio (12-20); Bilirubin,Total 0.5 mg/dL (0.3-1.2); Blood Urea Nitrogen 8 mg/dL (9-23); Calcium 8.2 mg/dL (8.3-10.6); Calcium (Corrected) 8.8 mg/dL (8.5-10.1); Carbon Dioxide 28.1 mMol/L (20.0-31.0); Chloride 105 mMol/L (98-107); Creatinine (Component) 0.4 mg/dL (0.6-1.3); Estimated Creatinine Clearance 139.4 mL/min (>60); Globulin 2.7 gm/dL (2.3-3.5); Glucose 135 mg/dL (74-106); Magnesium 1.9 mg/dL (1.6-2.6); Osmolality,Calculated 281 (275-295); Phosphorous 1.9 mg/dL (2.4-5.1); Potassium 4.0 mMol/L (3.4-5.1); Sodium 141 mMol/L (136-145); Total Protein 6.0 gm/dL (5.7-8.2); eGFR > 60 See Note
[2025-06-17] MEDS: PIPER/TAZO 3.375 GM PREMIX 3.375 G/50 ML BAG IV (06:16)
--- NOTE | 2025-06-17 06:37 | XR_ITS ---
Examination: Abdomen AP single view Technique: AP portable supine abdomen, single view Exam date and time: Examination: Abdomen AP single view TECHNIQUE: Supine portable AP abdomen single view Date and time: June 17, 2025, 0912 hours INDICATIONS: Abdominal distention today FINDINGS: Prominent colonic ileus A few loops of air distended small bowel No free air IMPRESSION: Prominent colonic ileus
--- NOTE | 2025-06-17 08:37 | PC.NURSE ---
hold insulin 20units per dr escobedo
[2025-06-17] MEDS: POTASSIUM PHOS 22.5 MMOL in SODIUM CHLORIDE 0.9% 500 ML 500 ML 82.778 MMOL IV (09:33)
[2025-06-17] MEDS: Milk Of Magnesia Susp 30 ML UDC GT (09:34)
[2025-06-17] MEDS: INSULIN LISPRO (AdmeLOG) 1 UNIT/0.01 ML UNIT SC ×2 (11:57→18:08)
--- NOTE | 2025-06-17 13:21 | PD.RESPRO ---
Documentation for date of: 06/17/25 Senior resident attestation: Patient is a 85-year-old male, resident of subacute, status post trach and PEG, quadriplegic status following stroke, patient was admitted for ventilator associated pneumonia versus aspiration pneumonia, patient had a few episodes of vomiting and subacute, CTAP shows pneumonia in left lung as well as air distended colon, concern for colonic obstruction, patient started on IV antibiotics for VAP/aspiration pneumonia, though no fever or leukocytosis noted, patient is tachypneic but are fairly stable, currently on 30% FiO2, saturating 100% respiratory rate in 30s, patient's PEG tube was attached to suction. #Ventilator associated pneumonia #Gram-positive cocci bacteremia - Patient ET secretions culture from 06/14/2025 positive for multidrug-resistant Proteus mirabilis, but sensitive to Zosyn and ceftriaxone, initial blood cultures blood cultures from 10 06/14/2025 via negative at 48 hours, but repeat blood cultures on 06/17/2025 positive for GPC resembling staph in 1/2 bottles and 2 samples. #S/p trach , s/p PEG #Concern for colonic obstruction - Will get GI consult, appreciate recommendations. GI recommended continuing with suction, if no output recommended to initiate GoLytely to flush out the colon, no plans to do colonoscopy at this point. Quresh PGY3 Subjective Subjective Interval history: Seen and examined at bedside; no overnight events. CT chest showed left lower lobe pneumonia, and air-fluid distended colon; follow-up abdominal x-ray showed prominent colonic ileus. GI consulted. Exam Vital Signs Temp Pulse Resp BP Pulse Ox O2 Del Method FiO2 98.7 F 71 35 H 122/72 100 Mechanical Ventilation 30 06/17/25 12:05 06/17/25 12:05 06/17/25 12:05 06/17/25 12:05 06/17/25 12:05 06/17/25 12:05 06/17/25 10:26 Narrative Exam General: Unable to assess ANO status secondary to vegetative state, no acute distress, well-nourished, well-developed, PEG tube and trach present Eyes: Anicteric, unable to assess vision due to vegetative state Ears: No ear pain, no ear discharge, unable to assess hearing due to vegetative state Nose: No nasal discharge. Mouth/Throat: Moist mucous membranes, no redness, no lesions. Neck: Neck supple, non-tender, no cervical lymphadenopathy. Lungs: Mechanical breath sounds bilaterally Cardio: Normal S1/S2, regular rhythm, no murmurs, no JVD or carotid bruits. Abdomen: Tense, non-tender, no palpable masses, peristalsis present, no guarding or rebound. Extremities: Symmetrical, no significant deformities, no peripheral edema , non-tender, peripheral pulses presents. Skin: No rashes, no lesions, warm to touch. Neuro: Unable to assess due to vegetative state Psych: Unable to assess due to vegetative state Objective Labs 06/18/25 05:51 06/18/25 05:51 Labs: Laboratory Results - last 24 hr 06/17/25 06/17/25 06/17/25 00:54 01:01 01:48 WBC 5.9 RBC 4.08 L Hgb 11.7 L Hct 36.8 L MCV 90 MCH 28.7 MCHC 31.8 RDW Std Deviation 58.4 H Plt Count 178 Neut % (Auto) 70 Lymph % (Auto) 16 [place] % (Auto) 12 Eos % (Auto) 2 Baso % (Auto) 1 Neut # (Auto) 4.1 Lymph # (Auto) 1.0 [place] # (Auto) 0.7 Eos # (Auto) 0.1 Baso # (Auto) 0.0 Immature Gran # (Auto) 0.02 H Absolute Nucleated RBC 0.00 Immature Gran % 0 Nucleated RBC % 0 ESR 36 H D-Dimer 2780 H Puncture Site Right Radial ABG pH 7.41 ABG pCO2 49 H ABG pO2 121 H ABG HCO3 31 H ABG O2 Saturation 100 H ABG Base Excess 6 H FiO2 30 Sodium 140 D Potassium 4.2 Chloride 103 Carbon Dioxide 28.8 Anion Gap 8 BUN 10 Creatinine 0.5 L Estim Creat Clear Calc 111.5 eGFR > 60 BUN/Creatinine Ratio 20 Glucose 137 H Calculated Osmolality 280 Lactic Acid 1.3 Calcium 8.9 Corrected Calcium 9.1 Phosphorus Magnesium 1.9 Total Bilirubin 0.5 Direct Bilirubin 0.2 AST 15 ALT 20 Alkaline Phosphatase 118 H Troponin I < 0.020 C-Reactive Prot, Quant 4.9 H B-Natriuretic Peptide 135 H Total Protein 6.8 Albumin 3.8 Globulin 3.0 Albumin/Globulin Ratio 1.3 Lipase 30 Procalcitonin 0.07 TSH 3.89 Ur Collection Type Clean Catch Urine Color Yellow Urine Clarity Turbid A Urine pH 8.0 H Ur Specific [place] 1.028 Urine Protein 3+ A Urine Glucose (UA) Negative Urine Ketones Negative Urine Blood 2+ A Urine Nitrite Positive Urine Bilirubin Negative Urine Urobilinogen (Auto) 2.0 Ur Leukocyte Esterase Positive Urine RBC 151 H Urine WBC 105 H Ur Squamous Epith Cells 0 Triple Phos Crystals Rare Urine Bacteria 4+ A Ur Culture Indicated? Yes Influenza A (Rapid) Influenza B (Rapid) RSV Rapid 06/17/25 06/17/25 06/17/25 03:15 04:17 04:46 WBC 6.4 RBC 3.67 L Hgb 10.6 L Hct 33.3 L MCV 91 MCH 28.9 MCHC 31.8 RDW Std Deviation 59.6 H Plt Count 151 Neut % (Auto) 88 H Lymph % (Auto) 8 L [place] % (Auto) 3 Eos % (Auto) 1 Baso % (Auto) 0 Neut # (Auto) 5.7 Lymph # (Auto) 0.5 L [place] # (Auto) 0.2 Eos # (Auto) 0.0 Baso # (Auto) 0.0 Immature Gran # (Auto) 0.03 H Absolute Nucleated RBC 0.00 Immature Gran % 1 H Nucleated RBC % 0 ESR D-Dimer Puncture Site Right Radial ABG pH 7.38 ABG pCO2 49 H ABG pO2 112 H ABG HCO3 29 H ABG O2 Saturation 99 H ABG Base Excess 3 FiO2 30 Sodium 141 Potassium 4.0 Chloride 105 Carbon Dioxide 28.1 Anion Gap 8 BUN 8 L Creatinine 0.4 L Estim Creat Clear Calc 139.4 eGFR > 60 BUN/Creatinine Ratio 20 Glucose 135 H Calculated Osmolality 281 Lactic Acid Calcium 8.2 L Corrected Calcium 8.8 Phosphorus 1.9 L Magnesium 1.9 Total Bilirubin 0.5 Direct Bilirubin AST 23 ALT 16 Alkaline Phosphatase 95 D Troponin I C-Reactive Prot, Quant B-Natriuretic Peptide Total Protein 6.0 Albumin 3.3 L D Globulin 2.7 Albumin/Globulin Ratio 1.2 Lipase Procalcitonin TSH Ur Collection Type Urine Color Urine Clarity Urine pH Ur Specific [place] Urine Protein Urine Glucose (UA) Urine Ketones Urine Blood Urine Nitrite Urine Bilirubin Urine Urobilinogen (Auto) Ur Leukocyte Esterase Urine RBC Urine WBC Ur Squamous Epith Cells Triple Phos Crystals Urine Bacteria Ur Culture Indicated? Influenza A (Rapid) Negative Influenza B (Rapid) Negative RSV Rapid Negative ABG Interpretation ABG results: 06/17/25 06/17/25 01:48 04:17 ABG pH 7.41 7.38 ABG pCO2 49 H 49 H ABG pO2 121 H 112 H ABG HCO3 31 H 29 H ABG O2 Saturation 100 H 99 H ABG Base Excess 6 H 3 Quality Measures Quality Measures none Advance care planning discussed with:: other Assessment & Plan Assessment Current Active Medications: Generic Name Dose Route Start Last Admin Trade Name Freq PRN Reason Stop Dose Admin Acetaminophen 650 mg 06/17/25 03:21 Acetaminophen 325 Mg Tablet PO 07/17/25 03:20 Q6H PRN Fever >101.5 Albuterol/Ipratropium 3 ml 06/17/25 07:00 06/17/25 10:26 Albuterol/Ipratropium (Duoneb) Rt Emma 3 Ml Nebu INH 07/17/25 06:59 3 ml Q4HRRT KURT Administration Atorvastatin Calcium 40 mg 06/17/25 21:00 Atorvastatin Calcium 20 Mg Tablet GT 07/17/25 20:59 HS KURT Bisacodyl 10 mg 06/17/25 05:21 Bisacodyl 10 Mg Supp [place] 07/17/25 05:20 QDAY PRN CONSTIPATION Protocol Carvedilol 3.125 mg 06/17/25 08:00 06/17/25 09:00 Carvedilol 3.125 Mg Tablet GT 07/17/25 07:59 Not Given BIDWM KURT Dextrose 25 ml 06/17/25 05:26 Dextrose 50%-Water Inj 50 Ml Syringe IV 07/17/25 05:25 Q15MIN PRN BG 50-70 responsive npo pt Dextrose 50 ml 06/17/25 05:26 Dextrose 50%-Water Inj 50 Ml Syringe IV 07/17/25 05:25 Q15MIN PRN BG <50 OR BG <70 & pt unresponsive Glucagon 1 mg 06/17/25 05:26 Glucagon Inj 1 Mg Vial IM Q15MIN PRN BG <70, and no IV access Lactated Ringer's 1,000 mls @ 75 mls/hr 06/17/25 03:30 06/17/25 03:39 Lactated Ringers IV 06/17/25 16:49 75 mls/hr .[id number] KURT Administration Piperacillin/Tazobactam/Dextrose 3.375 gm in 50 mls @ 12.5 mls/hr 06/17/25 14:00 Zosyn IV 06/24/25 13:59 Q8HR KURT Protocol Vancomycin/Sodium Chloride 200 mls @ 120 mls/hr 06/17/25 14:00 Vancomycin/Ns 1 Gm Ivpb IV 06/24/25 13:59 Q8HR KURT Potassium Phosphate 22.5 mmol/ 507.5 mls @ 82.778 mls/hr 06/17/25 08:12 06/17/25 09:33 Sodium Chloride IV 06/17/25 14:19 82.778 mls/hr X1 ONE Administration Insulin Degludec 20 unit 06/17/25 09:00 06/17/25 08:49 Insulin Degludec 5 Unit/0.05 Ml (Per 5 Units) SC 07/17/25 08:59 Not Given QDAY [facility] Insulin Human Lispro 0 unit 06/17/25 07:30 06/17/25 11:57 Insulin Lispro (Admelog) 1 Unit/0.01 Ml Unit SC 07/17/25 07:29 1 unit AC KURT Administration Protocol Magnesium Hydroxide 30 ml 06/17/25 09:00 06/17/25 09:34 Milk Of Magnesia Susp 30 Ml Udc GT 07/17/25 08:59 30 ml QDAY KURT Administration Protocol Pharmacy Consult 1 each 06/17/25 09:00 Vancomycin Pharmacy To Dose 1 Each Each IV 07/17/25 08:59 QDAY PRN CONSULT Polyethylene Glycol 17 gm 06/17/25 05:30 Polyethylene Glycol 17 Gm Packet GT 07/17/25 08:59 QDAY PRN CONSTIPATION Protocol Plan Patient is a 85 yr old male with PMH of vegetative state secondary CVA 2019, tracheostomy, PEG tube feed, atrial fibrillation, HTN, HLD and diabetes brought to ED from subacute in view of shortness of breath and admitted on 06/17/25 for possible pneumonia and UTI. #Acute on chronic hypercapnic respiratory failure secondary to #Pneumonia (ventilator associated versus aspiration). pCO2 49, pO2 112, HCO3 31, base excess 6 on admission; chest x-ray and CT abdomen pelvis both show significant pneumonia left base; RR 36 on admission. Plan: Vancomycin and pip-tazo started for coverage of both anaerobes and ventilator associated pneumonia. Duonebs q4hr as needed Sputum culture ordered # UTI UA positive for bacteria 4+ and 105 WBC Plan: Blood and urine cultures taken; awaiting results Vancomycin and pip-tazo cover UTI as well #? Large bowel partial obstruction versus ileus CT scan showed air and fluid distended colon; x-ray abdomen showed prominent colonic ileus Plan: NPO and NG tube placed GI consulted, appreciate recs # Hypertension # Hyperlipidemia # Diabetes # Constipation Plan: Carvedilol 3.125 mg twice daily Atorvastatin 40 mg. Degludec 20 units with sliding scale Bisacodyl suppository 10 mg PRN Milk of magnesia 30 mL GT PRN MiraLAX 17 g GT PRN Fleet enema 133 mL [place] PRN Disposition: DVT prophylaxis: GI prophylaxis: Diet: NPO Lines: PIV, ABG CODE STATUS: DNR This case was discussed with my attending physician, Dr. Nguyen, and senior resident, Dr. Gifford. Shaheen Garrett MD-PhD, PGY1 Attending Provider Attestation/Addendum I have seen and examined the patient. I was physically present for the taylor portions of the services provided including history, physical exam, diagnosis, treatment plans and orders. I agree with assessment and plan of care as documented by residents. Even though this this note was carefully revised there may still be minor errors in cigarette examiner due to voice recognition software. Shania Nguyen MD
[2025-06-17] MEDS: VANCOMYCIN/NS 1 GM IVPB 200 ML IV ×2 (14:31→22:16)
[2025-06-17] MEDS: PIPER/TAZO 3.375 GM PREMIX 3.375 GM/50 ML BAG IV ×2 (14:35→21:09)
--- NOTE | 2025-06-17 18:31 | PD.IMCONS ---
HPI Data of Consult Requesting Physician: Curtis Loredo MD Primary Care Provider: Physician No Primary/Family Consult Narrative Reason for consult: Abdominal distention, abnormal CT AP History of present illness: 85 years old male presented the emergency room with abdominal distention KUB shows colonic ileus as well as some dilatation of small bowel but no air-fluid levels and some stool burden CT scan of the chest abdomen without contrast showed pneumonia left base some dilatation of the colon and the stool burden Patient is complicated being nonverbal vegetative state CVA 2019 tracheostomy PEG hypertension hyperlipidemia and diabetes mellitus cc:: cc: Curtis Loredo MD Review of Systems Review of Systems ROS Unobtainable: unobtainable due to medical condition Meds Home Medications and Allergies Home Medications ?Medication ?Instructions ?Recorded ?Confirmed ?Type atorvastatin 40 mg tablet 40 mg G-tube HS 01/08/25 01/08/25 History Held on 06/17/25. Instructions: Hold 06/17/25 on Continuing Care Visit #[id number]. carvedilol 3.125 mg tablet 3.125 mg G-tube BID 01/08/25 01/08/25 History Held on 06/17/25. Instructions: Hold 06/17/25 on Continuing Care Visit #[id number]. cyanocobalamin (vitamin B-12) 500 1,000 mcg G-tube QDAY 01/08/25 01/08/25 History mcg tablet Held on 06/17/25. Instructions: Hold 06/17/25 on Continuing Care Visit #[id number]. ondansetron HCl 4 mg tablet 4 mg PO Q6HR PRN Nausea Or Vomiting 01/08/25 01/08/25 History Held on 06/17/25. Instructions: Hold 06/17/25 on Continuing Care Visit #[id number]. Allergies Allergy/AdvReac Type Severity Reaction Status Date / Time No Known Allergies Allergy Verified 06/17/25 00:43 Exam Vital Signs Temp Pulse Resp BP Pulse Ox O2 Del Method FiO2 97 F 78 26 H 134/67 H 100 Mechanical Ventilation 30 06/17/25 16:00 06/17/25 18:04 06/17/25 16:00 06/17/25 18:04 06/17/25 16:00 06/17/25 16:00 06/17/25 15:15 Constitutional Comments: Chronically ill-appearing Routine Respiratory Exam Comments: Scattered rhonchi Results Labs 06/17/25 04:46 06/17/25 04:46 Labs: Short CBC 06/17/25 06/17/25 Range/Units 00:54 04:46 WBC 5.9 6.4 (3.8-10.6) Thou/mm3 Hgb 11.7 L 10.6 L (13.5-16.0) g/dL Hct 36.8 L 33.3 L (41.0-53.0) % Plt Count 178 151 (140-440) Thou/mm3 BMP 06/17/25 06/17/25 00:54 04:46 Sodium 140 D 141 Potassium 4.2 4.0 Chloride 103 105 Carbon Dioxide 28.8 28.1 BUN 10 8 L Creatinine 0.5 L 0.4 L Glucose 137 H 135 H Calcium 8.9 8.2 L Cardiac Enzymes 06/17/25 Range/Units 00:54 Troponin I < 0.020 (0.0-0.045) ng/mL Liver Function 06/17/25 06/17/25 Range/Units 00:54 04:46 Total Bilirubin 0.5 0.5 (0.3-1.2) mg/dL Direct Bilirubin 0.2 (0.0-0.3) mg/dL AST 15 23 (0-34) U/L ALT 20 16 (10-49) U/L Alkaline Phosphatase 118 H 95 D (46-116) U/L Albumin 3.8 3.3 L D (3.4-4.8) gm/dL Urine 06/17/25 Range/Units 01:01 Urine Color Yellow (Lt Yel-Yel) Urine Clarity Turbid A (Clear/Hazy) Urine pH 8.0 H (5.0-7.0) Ur Specific [place] 1.028 (1.001-1.035) Urine Protein 3+ A (Neg - Trace) Urine Glucose (UA) Negative (Negative) ABG Interpretation ABG results: 06/17/25 06/17/25 01:48 04:17 ABG pH 7.41 7.38 ABG pCO2 49 H 49 H ABG pO2 121 H 112 H ABG HCO3 31 H 29 H ABG O2 Saturation 100 H 99 H ABG Base Excess 6 H 3 Assessment and Plan Additional Assessment & Plan Additional Plan: # Pseudoobstruction: Dilatation of the colon # Ileus # Stool burden with colonic dilatation Plan NG tube to intermittent suction Rectal tube Left see how much comes out of the NGT if not much drainage via the NGT Recommend giving GoLytely at 200 cc an hour to flush the colon out we will follow the patient Currently have no plans to do any colonoscopy Other medical problems include # Nonverbal # CVA # Status post tracheostomy and gastrostomy # Essential hypertension # Hyperlipidemia # Diabetes mellitus type 2 Thank you very much for the opportunity to participate in the care of this patient
[2025-06-17] MEDS: ATORVASTATIN CALCIUM 20 MG TABLET 40 MG GT (20:47)
[2025-06-17 21:52] LABS: Vancomycin,Trough 14.3 mcg/mL (5.0-10.0)
[2025-06-18] VITALS (15 sets, daily range): BP systolic 106–159; BP diastolic 52–76; PULSE 49–78; RESP 17–29; TEMP 35.9–36.6; O2SAT 95–100; BMI 24.3; BMI 22.4
[2025-06-18] MEDS: ALBUTEROL/IPRATROPIUM (Duoneb) RT SOL 3 ML NEBU INH ×6 (02:53→22:26)
--- NOTE | 2025-06-18 05:15 | PC.NURSE ---
notified Dr. Samson of patient having a 2 sec pause on monitor. will monitor
[2025-06-18] MEDS: VANCOMYCIN/NS 1 GM IVPB 200 ML IV ×3 (05:30→21:39)
[2025-06-18] MEDS: PIPER/TAZO 3.375 GM PREMIX 3.375 GM/50 ML BAG IV ×3 (05:30→21:02)
[2025-06-18 06:50] LABS: Basophils # (Auto) 0.0 Thou/mm3 (0.0-0.2); Basophils % (Auto) 0 % (0-2.5); Eosinophils # (Auto) 0.0 Thou/mm3 (0.0-0.5); Eosinophils % (Auto) 0 % (0-10); Hematocrit 31.5 % (41.0-53.0); Hemoglobin 9.9 g/dL (13.5-16.0); Immature Granulocytes Auto 0.03 Thou/mm3 (0.00-0.00); Lymphocytes # (Auto) 0.8 Thou/mm3 (1.0-4.8); Lymphocytes % (Auto) 17 % (10-50); Mean Corpuscular HGB Conc 31.4 g/dl (31.0-37.0); Mean Corpuscular Hemoglobin 28.8 pg (25.0-35.0); Mean Corpuscular Volume 92 fL (80-100); Monocytes # (Auto) 0.4 Thou/mm3 (0.0-0.8); Monocytes % (Auto) 9 % (0-12); Neutrophils # (Auto) 3.4 Thou/mm3 (1.8-7.7); Neutrophils % (Auto) 73 % (37-80); Nucleated Red Blood Cell # 0.00 Thou/mm3 (0.00-0.00); Nucleated Red Blood Cell % 0 /100 WBC (0); Platelet Count 144 Thou/mm3 (140-440); RDW Standard Deviation 58.9 fL (35.1-43.9); Red Blood Count 3.44 Miln/mm3 (4.50-5.90); White Blood Count 4.6 Thou/mm3 (3.8-10.6)
[2025-06-18 07:02] LABS: Alanine Aminotransferase 21 U/L (10-49); Albumin, Serum 3.2 gm/dL (3.4-4.8); Albumin/Globulin Ratio 1.2 (1.2-2.2); Alkaline Phosphatase 68 U/L (46-116); Anion Gap 9 (7-16); Aspartate Amino Transferase 30 U/L (0-34); BUN/Creatinine Ratio 12 Ratio (12-20); Bilirubin,Total 0.4 mg/dL (0.3-1.2); Blood Urea Nitrogen 6 mg/dL (9-23); Calcium 8.2 mg/dL (8.3-10.6); Calcium (Corrected) 8.8 mg/dL (8.5-10.1); Carbon Dioxide 28.1 mMol/L (20.0-31.0); Chloride 103 mMol/L (98-107); Creatinine (Component) 0.5 mg/dL (0.6-1.3); Estimated Creatinine Clearance 111.5 mL/min (>60); Globulin 2.6 gm/dL (2.3-3.5); Glucose 124 mg/dL (74-106); Magnesium 2.0 mg/dL (1.6-2.6); Osmolality,Calculated 278 (275-295); Potassium 4.2 mMol/L (3.4-5.1); Sodium 140 mMol/L (136-145); Total Protein 5.8 gm/dL (5.7-8.2); eGFR > 60 See Note
[2025-06-18 07:23] LABS: Glucose Estimated Average 100 mg/dL (80-131); Hemoglobin A1C 5.1 % Hgb (4.8-6.0)
[2025-06-18] MEDS: Milk Of Magnesia Susp 30 ML UDC GT (08:11)
--- NOTE | 2025-06-18 11:46 | PC.DIETICIAN ---
Nutrition prescription When indicated, consider: 1. Glucerna 1.2 at 15 ml/hr via PEG tube by pump. Advance 10 ml every 8 hrs to goal rate of 42 ml/hr x 24 hrs. If no IV fluids, water flushes of 40 ml/hr (or per MD). 2. ProStat 30ml once daily via PEG tube.
[2025-06-18] MEDS: NA SU/NAHCO3/KC/PEG (Golytely) 4,000 ML BTL 4000 ML NG (12:14)
--- NOTE | 2025-06-18 13:00 | PD.RESPRO ---
Documentation for date of: 06/18/25 Senior resident attestation: Patient is a 85-year-old male, resident of subacute, status post trach and PEG, quadriplegic status following stroke, patient was admitted for ventilator associated pneumonia versus aspiration pneumonia, patient had a few episodes of vomiting and subacute, CTAP shows pneumonia in left lung as well as air distended colon, concern for colonic obstruction, patient started on IV antibiotics for VAP/aspiration pneumonia, though no fever or leukocytosis noted, patient is tachypneic but are fairly stable, currently on 30% FiO2, saturating 100% respiratory rate in 30s, patient's PEG tube was attached to suction. #Ventilator associated pneumonia #Gram-positive cocci bacteremia - Patient ET secretions culture from 06/14/2025 positive for multidrug-resistant Proteus mirabilis, but sensitive to Zosyn and ceftriaxone, initial blood cultures blood cultures from 10 06/14/2025 via negative at 48 hours, but repeat blood cultures on 06/17/2025 positive for GPC resembling staph in 1/2 bottles and 2 samples and 06/18 positive in 1/2 samples. Continue Vanc and zosyn, until speciation of cultures. #S/p trach , s/p PEG #Concern for colonic obstruction - Will get GI consult, appreciate recommendations. GI recommended continuing with suction, if no output recommended to initiate GoLytely to flush out the colon, no plans to do colonoscopy at this point. Quresh PGY3 Subjective Subjective Interval history: Patient was seen and examined at bedside today; overnight had 2-second pause on telemetry which then resolved. Overnight NG tube output was 50. GI was consulted, they said they had no plan to do colonoscopy; and that if NG output stopped that we should start GoLytely at 200 cc/h. Exam Vital Signs Temp Pulse Resp BP Pulse Ox O2 Del Method FiO2 96.6 F L 57 L 20 127/66 100 Mechanical Ventilation 30 06/18/25 12:00 06/18/25 12:00 06/18/25 12:00 06/18/25 12:00 06/18/25 12:00 06/18/25 12:00 06/18/25 12:00 Narrative Exam General: Unable to assess ANO status secondary to vegetative state, no acute distress, well-nourished, well-developed, PEG tube and trach present Eyes: Anicteric, unable to assess vision due to vegetative state Ears: No ear pain, no ear discharge, unable to assess hearing due to vegetative state Nose: No nasal discharge. Mouth/Throat: Moist mucous membranes, no redness, no lesions. Neck: Neck supple, non-tender, no cervical lymphadenopathy. Lungs: Mechanical breath sounds bilaterally Cardio: Normal S1/S2, regular rhythm, no murmurs, no JVD or carotid bruits. Abdomen: Tense, non-tender, no palpable masses, peristalsis present, no guarding or rebound. Extremities: Symmetrical, no significant deformities, no peripheral edema , non-tender, peripheral pulses presents. Skin: No rashes, no lesions, warm to touch. Neuro: Unable to assess due to vegetative state Psych: Unable to assess due to vegetative state Objective Labs 06/19/25 08:15 06/19/25 08:15 Labs: Laboratory Results - last 24 hr 06/17/25 06/18/25 21:15 05:51 WBC 4.6 RBC 3.44 L Hgb 9.9 L Hct 31.5 L MCV 92 MCH 28.8 MCHC 31.4 RDW Std Deviation 58.9 H Plt Count 144 Neut % (Auto) 73 Lymph % (Auto) 17 [place] % (Auto) 9 Eos % (Auto) 0 Baso % (Auto) 0 Neut # (Auto) 3.4 Lymph # (Auto) 0.8 L [place] # (Auto) 0.4 Eos # (Auto) 0.0 Baso # (Auto) 0.0 Immature Gran # (Auto) 0.03 H Absolute Nucleated RBC 0.00 Immature Gran % 1 H Nucleated RBC % 0 Sodium 140 Potassium 4.2 Chloride 103 Carbon Dioxide 28.1 Anion Gap 9 BUN 6 L Creatinine 0.5 L Estim Creat Clear Calc 111.5 eGFR > 60 BUN/Creatinine Ratio [address] Glu mg/dL 100 Hemoglobin A1c 5.1 Calculated Osmolality 278 Calcium 8.2 L Corrected Calcium 8.8 Magnesium 2.0 Total Bilirubin 0.4 AST 30 ALT 21 Alkaline Phosphatase 68 D Total Protein 5.8 Albumin 3.2 L Globulin 2.6 Albumin/Globulin Ratio 1.2 Vancomycin Trough 14.3 H ABG Interpretation ABG results: 06/17/25 06/17/25 01:48 04:17 ABG pH 7.41 7.38 ABG pCO2 49 H 49 H ABG pO2 121 H 112 H ABG HCO3 31 H 29 H ABG O2 Saturation 100 H 99 H ABG Base Excess 6 H 3 Quality Measures Quality Measures none Advance care planning discussed with:: other Assessment & Plan Assessment Current Active Medications: Generic Name Dose Route Start Last Admin Trade Name Freq PRN Reason Stop Dose Admin Acetaminophen 650 mg 06/17/25 03:21 Acetaminophen 325 Mg Tablet PO 07/17/25 03:20 Q6H PRN Fever >101.5 Albuterol/Ipratropium 3 ml 06/17/25 07:00 06/18/25 10:22 Albuterol/Ipratropium (Duoneb) Rt Emma 3 Ml Nebu INH 07/17/25 06:59 3 ml Q4HRRT KURT Administration Atorvastatin Calcium 40 mg 06/17/25 21:00 06/17/25 20:47 Atorvastatin Calcium 20 Mg Tablet GT 07/17/25 20:59 40 mg HS KURT Administration Bisacodyl 10 mg 06/17/25 05:21 Bisacodyl 10 Mg Supp SC 07/17/25 05:20 QDAY PRN CONSTIPATION Protocol Carvedilol 3.125 mg 06/17/25 08:00 06/18/25 08:12 Carvedilol 3.125 Mg Tablet GT 07/17/25 07:59 3.125 mg BIDWM KURT Administration Dextrose 25 ml 06/17/25 05:26 Dextrose 50%-Water Inj 50 Ml Syringe IV 07/17/25 05:25 Q15MIN PRN BG 50-70 responsive npo pt Dextrose 50 ml 06/17/25 05:26 Dextrose 50%-Water Inj 50 Ml Syringe IV 07/17/25 05:25 Q15MIN PRN BG <50 OR BG <70 & pt unresponsive Glucagon 1 mg 06/17/25 05:26 Glucagon Inj 1 Mg Vial IM Q15MIN PRN BG <70, and no IV access Piperacillin/Tazobactam/Dextrose 3.375 gm in 50 mls @ 12.5 mls/hr 06/17/25 14:00 06/18/25 05:30 Zosyn IV 06/24/25 13:59 12.5 mls/hr Q8HR KURT Administration Protocol Vancomycin/Sodium Chloride 200 mls @ 120 mls/hr 06/17/25 22:00 06/18/25 05:30 Vancomycin/Ns 1 Gm Ivpb IV 06/24/25 21:59 120 mls/hr Q8HR KURT Administration Protocol Insulin Degludec 20 unit 06/17/25 09:00 06/18/25 08:21 Insulin Degludec 5 Unit/0.05 Ml (Per 5 Units) SC 07/17/25 08:59 Not Given On Hold: 06/18/25 08:25 QDAY KURT Insulin Human Lispro 0 unit 06/18/25 06:00 06/18/25 12:05 Insulin Lispro (Admelog) 1 Unit/0.01 Ml Unit SC 07/18/25 05:59 Not Given Q6HR KURT Protocol Magnesium Hydroxide 30 ml 06/17/25 09:00 06/18/25 08:11 Milk Of Magnesia Susp 30 Ml Udc GT 07/17/25 08:59 30 ml QDAY KURT Administration Protocol Pharmacy Consult 1 each 06/17/25 09:00 Vancomycin Pharmacy To Dose 1 Each Each IV 07/17/25 08:59 QDAY PRN CONSULT Polyethylene Glycol 17 gm 06/17/25 05:30 Polyethylene Glycol 17 Gm Packet GT 07/17/25 08:59 QDAY PRN CONSTIPATION Protocol Plan Patient is a 85 yr old male with PMH of vegetative state secondary CVA 2019, tracheostomy, PEG tube feed, atrial fibrillation, HTN, HLD and diabetes brought to ED from subacute in view of shortness of breath and admitted on 06/17/25 for possible pneumonia and UTI. #Acute on chronic hypoxic respiratory failure secondary to #Pneumonia (ventilator associated versus aspiration). pCO2 49, pO2 112, HCO3 31, base excess 6 on admission; chest x-ray and CT abdomen pelvis both show significant pneumonia left base; RR 36 on admission. Plan: Vancomycin and pip-tazo started for coverage of both anaerobes and ventilator associated pneumonia. Duonebs q4hr as needed Sputum culture ordered # UTI UA positive for bacteria 4+ and 105 WBC Plan: Blood and urine cultures taken; awaiting results Vancomycin and pip-tazo cover UTI as well #? Large bowel partial obstruction versus ileus CT scan showed air and fluid distended colon; x-ray abdomen showed prominent colonic ileus Plan: NPO and NG tube placed- monitor output GI consulted, thank you for recs- no plan to do colonoscopy; if NG output stopped that we should start GoLytely at 200 cc/h to clear stool #Elevated d-dimer D-dimer on admission was 2780. DDx: Potentially due to underlying infectious processes however number is significantly elevated. Therefore we will do imaging studies to rule out pulmonary embolism. Plan: CT angio without contrast ordered # Hypertension # Hyperlipidemia # Diabetes # Constipation Plan: Carvedilol 3.125 mg twice daily Atorvastatin 40 mg. Degludec 20 units with sliding scale Bisacodyl suppository 10 mg PRN Milk of magnesia 30 mL GT PRN MiraLAX 17 g GT PRN Fleet enema 133 mL SC PRN Disposition: Tele DVT prophylaxis: SCD GI prophylaxis: Diet: NPO Lines: PIV, ABG CODE STATUS: DNR This case was discussed with my attending physician, Dr. Nguyen, and senior resident, Dr. Gifford. Shaheen Garrett MD-PhD, PGY1 Attending Provider Attestation/Addendum I have seen and examined the patient. I was physically present for the taylor portions of the services provided including history, physical exam, diagnosis, treatment plans and orders. I agree with assessment and plan of care as documented by residents. Patient seen and examined at bedside this morning. Appears comfortable. Vital signs are stable. Continues to be on IV vancomycin and Zosyn for VAP/aspiration pneumonia, UTI. Blood culture grew GPC on one of the bottles. Awaiting final culture results. Discussed with GI regarding stool burden, started on GoLytely flush as per recommended, appreciate recommendations. Even though this this note was carefully revised there may still be minor errors in wildlife officer due to voice recognition software. Shania Nguyen MD
[2025-06-18 14:38] LABS: Cocci Serology, IgM Negative (Negative)
--- NOTE | 2025-06-18 15:35 | PC.SS ---
Rounding Note: CTA is pending.
[2025-06-18] MEDS: ATORVASTATIN CALCIUM 20 MG TABLET 40 MG GT (21:02)
[2025-06-18] MEDS: DEXTROSE 50%-WATER INJ 50 ML SYRINGE 25 ML IV (23:08)
[2025-06-19] VITALS (16 sets, daily range): BP systolic 119–160; BP diastolic 70–94; PULSE 63–95; RESP 17–27; TEMP 36–36.7; O2SAT 95–100; BMI 22.3
[2025-06-19] MEDS: ALBUTEROL/IPRATROPIUM (Duoneb) RT SOL 3 ML NEBU INH ×6 (02:22→22:49)
[2025-06-19] MEDS: PIPER/TAZO 3.375 GM PREMIX 3.375 GM/50 ML BAG IV ×3 (05:03→21:30)
[2025-06-19] MEDS: VANCOMYCIN/NS 1 GM IVPB 200 ML IV ×3 (05:03→21:30)
[2025-06-19] MEDS: Milk Of Magnesia Susp 30 ML UDC GT (08:05)
[2025-06-19 08:28] LABS: Basophils # (Auto) 0.0 Thou/mm3 (0.0-0.2); Basophils % (Auto) 1 % (0-2.5); Eosinophils # (Auto) 0.0 Thou/mm3 (0.0-0.5); Eosinophils % (Auto) 1 % (0-10); Hematocrit 38.9 % (41.0-53.0); Hemoglobin 12.3 g/dL (13.5-16.0); Immature Granulocytes Auto 0.02 Thou/mm3 (0.00-0.00); Lymphocytes # (Auto) 0.7 Thou/mm3 (1.0-4.8); Lymphocytes % (Auto) 9 % (10-50); Mean Corpuscular HGB Conc 31.6 g/dl (31.0-37.0); Mean Corpuscular Hemoglobin 28.7 pg (25.0-35.0); Mean Corpuscular Volume 91 fL (80-100); Monocytes # (Auto) 0.6 Thou/mm3 (0.0-0.8); Monocytes % (Auto) 9 % (0-12); Neutrophils # (Auto) 5.7 Thou/mm3 (1.8-7.7); Neutrophils % (Auto) 81 % (37-80); Nucleated Red Blood Cell # 0.00 Thou/mm3 (0.00-0.00); Nucleated Red Blood Cell % 0 /100 WBC (0); Platelet Count 160 Thou/mm3 (140-440); RDW Standard Deviation 59.7 fL (35.1-43.9); Red Blood Count 4.28 Miln/mm3 (4.50-5.90); White Blood Count 7.1 Thou/mm3 (3.8-10.6)
[2025-06-19 09:41] LABS: Alanine Aminotransferase 24 U/L (10-49); Alkaline Phosphatase 85 U/L (46-116); Anion Gap 15 (7-16); Aspartate Amino Transferase 31 U/L (0-34); BUN/Creatinine Ratio 13 Ratio (12-20); Bilirubin,Total 0.6 mg/dL (0.3-1.2); Blood Urea Nitrogen 9 mg/dL (9-23); Calcium 9.1 mg/dL (8.3-10.6); Carbon Dioxide 28.4 mMol/L (20.0-31.0); Chloride 104 mMol/L (98-107); Creatinine (Component) 0.7 mg/dL (0.6-1.3); Estimated Creatinine Clearance 77.2 mL/min (>60); Glucose 109 mg/dL (74-106); Magnesium 2.1 mg/dL (1.6-2.6); Osmolality,Calculated 292 (275-295); Phosphorous 3.2 mg/dL (2.4-5.1); Potassium 4.1 mMol/L (3.4-5.1); Sodium 147 mMol/L (136-145); Total Protein 7.1 gm/dL (5.7-8.2); eGFR > 60 See Note
[2025-06-19 10:09] LABS: Albumin, Serum 4.2 gm/dL (3.4-4.8); Albumin/Globulin Ratio 1.4 (1.2-2.2); Calcium (Corrected) 9.1 mg/dL (8.5-10.1); Globulin 2.9 gm/dL (2.3-3.5)
--- NOTE | 2025-06-19 15:23 | XR_ITS ---
Examination: Venous duplex lower extremity sonogram, bilateral. Date and time of exam: June 19, 2025, 1611 hours INDICATIONS: Patient immobile, hypoxic respiratory failure Technique: Multiple sonographic images of the deep venous system have been obtained. B-mode/2-D grayscale imaging of vascular structures and Doppler spectral analysis (waveforms) and color performed Both legs are examined. Findings: Deep venous systems do not demonstrate abnormal echogenicity. All visualized deep veins exhibit compressibility. All visualized deep veins exhibit augmentation. Impression: Negative for deep vein thrombosis
--- NOTE | 2025-06-19 15:39 | PC.SS ---
Rounding Note: Plan is to repeat blood cultures. Dr. Lala to consult.
--- NOTE | 2025-06-19 17:35 | ESPR_ITS ---
<Statement entered by Shankar Smiley MD - 06/19/25 18:44> I have reviewed the note and agree with the resident's assessment & plan with exceptions as below. I have personally reviewed labs, imaging, home meds/prior records, examined the patient, formulated and discussed management plan with my attending Patient was seen and examined at bedside this morning. No acute overnight events. Patient has been having multiple bowel movements, but all have been loose therefore patient most likely has overflow diarrhea at this time. GI recommended manual disimpaction, patient does not have a bowel movement today will likely have medical disimpaction tomorrow. Otherwise ordered ultrasound lower extremities to rule out DVT. Patient CTA chest was discontinued as patient has clinically improved and less likely to have a PE at this time as O2 requirements have not increased. Repeat blood cultures tomorrow as GPC again in most recent blood cultures Shankar Smiley PGY2 Disclaimer: Even though this this note was dictated by speech recognition and even though it was carefully revised there may still be minor errors in bacteriology research assistant due to voice recognition software. Documentation for date of: 06/19/25 Subjective Subjective Interval history: Patient was seen and examined at bedside today; no acute events overnight. Blood cultures showed gram-positive cocci resembling staph in 1 out of 2 bottles in 24 hours. Patient had been given GoLytely to disimpact stool however while he did have bowel movements stable liquid brown to eventually liquid clear with no solids suggesting that impacted stool was still present. GI was reconsulted and they recommended manual disimpaction. Exam Vital Signs Temp Pulse Resp BP Pulse Ox O2 Del Method FiO2 97.0 F 88 22 H 160/84 H 98 Mechanical Ventilation 30 06/19/25 11:35 06/19/25 17:17 06/19/25 14:45 06/19/25 17:17 06/19/25 14:45 06/19/25 11:35 06/19/25 14:45 Narrative Exam General: Unable to assess ANO status secondary to vegetative state, no acute distress, well-nourished, well-developed, PEG tube and trach present Eyes: Anicteric, unable to assess vision due to vegetative state Ears: No ear pain, no ear discharge, unable to assess hearing due to vegetative state Nose: No nasal discharge. Mouth/Throat: Moist mucous membranes, no redness, no lesions. Neck: Neck supple, non-tender, no cervical lymphadenopathy. Lungs: Mechanical breath sounds bilaterally Cardio: Normal S1/S2, regular rhythm, no murmurs, no JVD or carotid bruits. Abdomen: Tense, non-tender, no palpable masses, peristalsis present, no guarding or rebound. Extremities: Symmetrical, no significant deformities, no peripheral edema , non-tender, peripheral pulses presents. Skin: No rashes, no lesions, warm to touch. Neuro: Unable to assess due to vegetative state Psych: Unable to assess due to vegetative state Objective Labs 06/20/25 05:30 06/20/25 05:36 Labs: Laboratory Results - last 24 hr 06/19/25 08:15 WBC 7.1 D RBC 4.28 L Hgb 12.3 L D Hct 38.9 L MCV 91 MCH 28.7 MCHC 31.6 RDW Std Deviation 59.7 H Plt Count 160 Neut % (Auto) 81 H Lymph % (Auto) 9 L [place] % (Auto) 9 Eos % (Auto) 1 Baso % (Auto) 1 Neut # (Auto) 5.7 Lymph # (Auto) 0.7 L [place] # (Auto) 0.6 Eos # (Auto) 0.0 Baso # (Auto) 0.0 Immature Gran # (Auto) 0.02 H Absolute Nucleated RBC 0.00 Immature Gran % 0 Nucleated RBC % 0 Sodium 147 H Potassium 4.1 Chloride 104 Carbon Dioxide 28.4 Anion Gap 15 BUN 9 Creatinine 0.7 Estim Creat Clear Calc 77.2 eGFR > 60 BUN/Creatinine Ratio 13 Glucose 109 H Calculated Osmolality 292 Calcium 9.1 Corrected Calcium 9.1 Phosphorus 3.2 Magnesium 2.1 Total Bilirubin 0.6 AST 31 ALT 24 Alkaline Phosphatase 85 D Total Protein 7.1 Albumin 4.2 D Globulin 2.9 Albumin/Globulin Ratio 1.4 ABG Interpretation ABG results: 06/17/25 06/17/25 01:48 04:17 ABG pH 7.41 7.38 ABG pCO2 49 H 49 H ABG pO2 121 H 112 H ABG HCO3 31 H 29 H ABG O2 Saturation 100 H 99 H ABG Base Excess 6 H 3 Quality Measures Quality Measures none Advance care planning discussed with:: other Assessment & Plan Assessment Current Active Medications: Generic Name Dose Route Start Last Admin Trade Name Freq PRN Reason Stop Dose Admin Acetaminophen 650 mg 06/17/25 03:21 Acetaminophen 325 Mg Tablet PO 07/17/25 03:20 Q6H PRN Fever >101.5 Albuterol/Ipratropium 3 ml 06/17/25 07:00 06/19/25 14:43 Albuterol/Ipratropium (Duoneb) Rt Emma 3 Ml Nebu INH 07/17/25 06:59 3 ml Q4HRRT KURT Administration Atorvastatin Calcium 40 mg 06/17/25 21:00 06/18/25 21:02 Atorvastatin Calcium 20 Mg Tablet GT 07/17/25 20:59 40 mg HS KURT Administration Bisacodyl 10 mg 06/17/25 05:21 Bisacodyl 10 Mg Supp CO 07/17/25 05:20 QDAY PRN CONSTIPATION Protocol Carvedilol 3.125 mg 06/17/25 08:00 06/19/25 17:17 Carvedilol 3.125 Mg Tablet GT 07/17/25 07:59 3.125 mg BIDWM KURT Administration Dextrose 25 ml 06/17/25 05:26 06/18/25 23:08 Dextrose 50%-Water Inj 50 Ml Syringe IV 07/17/25 05:25 25 ml Q15MIN PRN Administration BG 50-70 responsive npo pt Dextrose 50 ml 06/17/25 05:26 Dextrose 50%-Water Inj 50 Ml Syringe IV 07/17/25 05:25 Q15MIN PRN BG <50 OR BG <70 & pt unresponsive Glucagon 1 mg 06/17/25 05:26 Glucagon Inj 1 Mg Vial IM Q15MIN PRN BG <70, and no IV access Piperacillin/Tazobactam/Dextrose 3.375 gm in 50 mls @ 12.5 mls/hr 06/17/25 14:00 06/19/25 15:00 Zosyn IV 06/24/25 13:59 12.5 mls/hr Q8HR KURT Administration Protocol Vancomycin/Sodium Chloride 200 mls @ 120 mls/hr 06/17/25 22:00 06/19/25 14:59 Vancomycin/Ns 1 Gm Ivpb IV 06/24/25 21:59 120 mls/hr Q8HR KURT Administration Protocol Insulin Degludec 20 unit 06/17/25 09:00 06/18/25 08:21 Insulin Degludec 5 Unit/0.05 Ml (Per 5 Units) SC 07/17/25 08:59 Not Given On Hold: 06/18/25 08:25 QDAY [facility] Insulin Human Lispro 0 unit 06/18/25 06:00 06/19/25 05:10 Insulin Lispro (Admelog) 1 Unit/0.01 Ml Unit SC 07/18/25 05:59 Not Given Q6HR [facility] Protocol Magnesium Hydroxide 30 ml 06/17/25 09:00 06/19/25 08:05 Milk Of Magnesia Susp 30 Ml Udc GT 07/17/25 08:59 30 ml QDAY KURT Administration Protocol Pharmacy Consult 1 each 06/17/25 09:00 Vancomycin Pharmacy To Dose 1 Each Each IV 07/17/25 08:59 QDAY PRN CONSULT Polyethylene Glycol 17 gm 06/17/25 05:30 Polyethylene Glycol 17 Gm Packet GT 07/17/25 08:59 QDAY PRN CONSTIPATION Protocol Plan Patient is a 85 yr old male with PMH of vegetative state secondary CVA 2019, tracheostomy, PEG tube feed, atrial fibrillation, HTN, HLD and diabetes brought to ED from subacute in view of shortness of breath and admitted on 06/17/25 for possible pneumonia and UTI. #Acute on chronic hypoxic respiratory failure secondary to #Pneumonia (ventilator associated versus aspiration). #GPC bacteremia pCO2 49, pO2 112, HCO3 31, base excess 6 on admission; chest x-ray and CT abdomen pelvis both show significant pneumonia left base; RR 36 on admission. Initial blood cultures showed GPC Blood cultures positive for gram-positive cocci in 1 out of 2 bottles at 24 hours; waiting on final read Plan: Vancomycin and pip-tazo started for coverage of both anaerobes and ventilator associated pneumonia. Duonebs q4hr as needed Sputum culture pending # UTI UA positive for bacteria 4+ and 105 WBC Plan: Blood cultures positive for gram-positive cocci in 1 out of 2 bottles at 24 hours; waiting on final read Urine cultures from 06/17/2025 show Klebsiella pneumoniae sensitive to pip-tazo #? Large bowel partial obstruction versus ileus CT scan showed air and fluid distended colon; x-ray abdomen showed prominent colonic ileus Plan: GI consulted, thank you for recs- no plan to do colonoscopy; if NG output stopped that we should start GoLytely at 200 cc/h to clear stool GoLytely was given at 200 cc/h; output was brown liquid stool followed by clear liquid, with no solid components; this suggests overflow diarrhea, and GI was reconsulted?recommended manual disimpaction which will be attempted on 06/20/2025 if patient does not have a bowel movement by that day #Elevated d-dimer D-dimer on admission was 2780. DDx: Potentially due to underlying infectious processes however number is significantly elevated. However due to low likelihood of pulmonary emboli, no change in ventilator settings will do ultrasound lower extremities to check for DVT Plan: Lower extremity ultrasound taken, waiting on read # Hypertension # Hyperlipidemia # Diabetes # Constipation Plan: Carvedilol 3.125 mg twice daily Atorvastatin 40 mg. Degludec 20 units with sliding scale Bisacodyl suppository 10 mg PRN Milk of magnesia 30 mL GT PRN MiraLAX 17 g GT PRN Fleet enema 133 mL CO PRN Disposition: Tele DVT prophylaxis: SCD GI prophylaxis: Diet: NPO Lines: PIV, ABG CODE STATUS: DNR This case was discussed with my attending physician, Dr. Nguyen, and senior resident, Dr. Uriostegui. Shaheen Garrett MD-PhD, PGY1 Attending Provider Attestation/Addendum I have seen and examined the patient. I was physically present for the taylor portions of the services provided including history, physical exam, diagnosis, treatment plans and orders. I agree with assessment and plan of care as documented by residents. Patient seen and examined at bedside this morning. Appears comfortable. No acute overnight events. Patient grew GPC presuming staph on 1 of 2 samples of blood culture. Continues to be on IV vancomycin and Zosyn for acute on chronic hypoxic respiratory failure secondary to ventilator associated pneumonia/aspiration pneumonia and UTI. Awaiting final culture results. Patient received GoLytely but only had clear liquidy bowel movement concerning for stool impaction, we will attempt manual disimpaction. Patient was unable to complete CTA chest but is respiratory status have been improving, at this time lower suspicion for PE, we will obtain bilateral lower extremity Doppler ultrasound to rule out DVT. Even though this this note was carefully revised there may still be minor errors in bacteriology research assistant due to voice recognition software. Shania Nguyen MD
--- NOTE | 2025-06-19 20:38 | PD.IMPROG ---
Documentation for date of: 06/19/25 Subjective Subjective Interval history: Good results with the GoLytely rectal lavage almost clear abdomen soft nontender active bowel sounds Asked the attending RN to start the PEG feeding Exam Vital Signs Temp Pulse Resp BP Pulse Ox O2 Del Method FiO2 98.0 F 82 23 H 160/84 H 98 Mechanical Ventilation 30 06/19/25 16:00 06/19/25 18:44 06/19/25 18:44 06/19/25 17:17 06/19/25 18:44 06/19/25 16:00 06/19/25 19:23 Objective Labs 06/19/25 08:15 06/19/25 08:15 Labs: Laboratory Results - last 24 hr 06/19/25 08:15 WBC 7.1 D RBC 4.28 L Hgb 12.3 L D Hct 38.9 L MCV 91 MCH 28.7 MCHC 31.6 RDW Std Deviation 59.7 H Plt Count 160 Neut % (Auto) 81 H Lymph % (Auto) 9 L [place] % (Auto) 9 Eos % (Auto) 1 Baso % (Auto) 1 Neut # (Auto) 5.7 Lymph # (Auto) 0.7 L [place] # (Auto) 0.6 Eos # (Auto) 0.0 Baso # (Auto) 0.0 Immature Gran # (Auto) 0.02 H Absolute Nucleated RBC 0.00 Immature Gran % 0 Nucleated RBC % 0 Sodium 147 H Potassium 4.1 Chloride 104 Carbon Dioxide 28.4 Anion Gap 15 BUN 9 Creatinine 0.7 Estim Creat Clear Calc 77.2 eGFR > 60 BUN/Creatinine Ratio 13 Glucose 109 H Calculated Osmolality 292 Calcium 9.1 Corrected Calcium 9.1 Phosphorus 3.2 Magnesium 2.1 Total Bilirubin 0.6 AST 31 ALT 24 Alkaline Phosphatase 85 D Total Protein 7.1 Albumin 4.2 D Globulin 2.9 Albumin/Globulin Ratio 1.4 Impressions Impression: Abdominal distention ileus and colonic distention due to stool impaction resolved with GoLytely Start the PEG feeding ABG Interpretation ABG results: 06/17/25 06/17/25 01:48 04:17 ABG pH 7.41 7.38 ABG pCO2 49 H 49 H ABG pO2 121 H 112 H ABG HCO3 31 H 29 H ABG O2 Saturation 100 H 99 H ABG Base Excess 6 H 3 Assessment & Plan A&P Narrative # Pseudoobstruction: Dilatation of the colon # Ileus # Stool burden with colonic dilatation Plan NG tube to intermittent suction Rectal tube Left see how much comes out of the NGT if not much drainage via the NGT Recommend giving GoLytely at 200 cc an hour to flush the colon out we will follow the patient Currently have no plans to do any colonoscopy Other medical problems include # Nonverbal # 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
[2025-06-19] MEDS: ATORVASTATIN CALCIUM 20 MG TABLET 40 MG GT (21:30)
[2025-06-20] VITALS (14 sets, daily range): BP systolic 123–146; BP diastolic 60–88; PULSE 45–112; RESP 15–30; TEMP 36.1–36.6; O2SAT 93–100
[2025-06-20] MEDS: ALBUTEROL/IPRATROPIUM (Duoneb) RT SOL 3 ML NEBU INH ×6 (02:37→22:30)
[2025-06-20] MEDS: PIPER/TAZO 3.375 GM PREMIX 3.375 GM/50 ML BAG IV ×3 (05:07→20:51)
[2025-06-20] MEDS: VANCOMYCIN/NS 1 GM IVPB 200 ML IV (05:13)
[2025-06-20 07:03] LABS: Magnesium 2.2 mg/dL (1.6-2.6); Phosphorous 3.8 mg/dL (2.4-5.1)
--- NOTE | 2025-06-20 08:00 | XR_ITS ---
Examination: Abdomen AP single view Technique: AP portable supine abdomen, single view Exam date and time: June 20, 2025, 0834 hours Abdominal distention this week. FINDINGS: Gastrostomy tube overlies the stomach Moderate colonic ileus Mild small bowel ileus No free air IMPRESSION: Moderate colonic ileus Mild small bowel ileus
[2025-06-20 08:33] LABS: Alanine Aminotransferase 17 U/L (10-49); Albumin, Serum 3.7 gm/dL (3.4-4.8); Albumin/Globulin Ratio 1.5 (1.2-2.2); Alkaline Phosphatase 73 U/L (46-116); Anion Gap 13 (7-16); Aspartate Amino Transferase 23 U/L (0-34); BUN/Creatinine Ratio 11 Ratio (12-20); Bilirubin,Total 0.7 mg/dL (0.3-1.2); Blood Urea Nitrogen 8 mg/dL (9-23); Calcium 8.8 mg/dL (8.3-10.6); Calcium (Corrected) 9.0 mg/dL (8.5-10.1); Carbon Dioxide 26.3 mMol/L (20.0-31.0); Chloride 107 mMol/L (98-107); Creatinine (Component) 0.7 mg/dL (0.6-1.3); Estimated Creatinine Clearance 77.2 mL/min (>60); Globulin 2.4 gm/dL (2.3-3.5); Glucose 133 mg/dL (74-106); Osmolality,Calculated 290 (275-295); Potassium 3.8 mMol/L (3.4-5.1); Sodium 146 mMol/L (136-145); Total Protein 6.1 gm/dL (5.7-8.2); eGFR > 60 See Note
[2025-06-20 08:34] LABS: Basophils # (Auto) 0.0 Thou/mm3 (0.0-0.2); Basophils % (Auto) 1 % (0-2.5); Eosinophils # (Auto) 0.0 Thou/mm3 (0.0-0.5); Eosinophils % (Auto) 1 % (0-10); Hematocrit 34.7 % (41.0-53.0); Hemoglobin 11.0 g/dL (13.5-16.0); Immature Granulocytes Auto 0.02 Thou/mm3 (0.00-0.00); Lymphocytes # (Auto) 0.9 Thou/mm3 (1.0-4.8); Lymphocytes % (Auto) 15 % (10-50); Mean Corpuscular HGB Conc 31.7 g/dl (31.0-37.0); Mean Corpuscular Hemoglobin 29.2 pg (25.0-35.0); Mean Corpuscular Volume 92 fL (80-100); Monocytes # (Auto) 0.6 Thou/mm3 (0.0-0.8); Monocytes % (Auto) 10 % (0-12); Neutrophils # (Auto) 4.8 Thou/mm3 (1.8-7.7); Neutrophils % (Auto) 74 % (37-80); Nucleated Red Blood Cell # 0.00 Thou/mm3 (0.00-0.00); Nucleated Red Blood Cell % 0 /100 WBC (0); Platelet Count 153 Thou/mm3 (140-440); RDW Standard Deviation 60.3 fL (35.1-43.9); Red Blood Count 3.77 Miln/mm3 (4.50-5.90); White Blood Count 6.4 Thou/mm3 (3.8-10.6)
[2025-06-20] MEDS: Milk Of Magnesia Susp 30 ML UDC GT (09:47)
[2025-06-20 10:28] LABS: Cocci Serology, IgG Negative (Negative)
--- NOTE | 2025-06-20 13:07 | ECHO_ITS ---
Transthoracic Echo Report Ht (in): 70 Wt (lb): 156 Exam Location: [facility] Status: Inpatient Stock Preparation Supervisor: Delia Humphreys Indications: Procedure Performed: BP: 138 / 76 HR: MEASUREMENTS (Male / Female) Normal Values 2D ECHO LV Diastolic Diameter PLAX 5.1 cm 4.2 - 5.9 / 3.9 - 5.3 cm IVS Diastolic Thickness 0.8 cm 0.6 - 1.0 / 0.6 - 0.9 cm LVPW Diastolic Thickness 1.3 cm 0.6 - 1.0 / 0.6 - 0.9 cm LV Relative Wall Thickness 0.4 Ascending Aorta Diameter 3.0 cm DOPPLER AV Peak Velocity 158.0 cm/s AV Peak Gradient 10.0 mmHg AV Mean Gradient 5.0 mmHg AV Velocity Time Integral 32.5 cm LVOT Peak Velocity 85.7 cm/s LVOT Peak Gradient 2.9 mmHg LVOT Velocity Time Integral 22.2 cm MV Area PHT 3.0 cm? Mitral E Point Velocity 97.0 cm/s FINDINGS Left Ventricle Normal left ventricular size, wall thickness, systolic function with no obvious regional wall motion abnormalities. Indeterminate diastology due to Afib.The ejection fraction is visually estimated at 50-55%. Right Ventricle The right ventricle is normal in size and systolic function. Left Atrium The left atrial cavity size is mildly increased. Right Atrium The right atrium is normal by two-dimensional imaging, color flow and Doppler imaging with no structural abnormalities, no thrombus formation present. Atrial Septum The interatrial septum appears normal with no evidence of a shunt. Aorta The aorta is normal by two-dimensional, color flow and Doppler interrogation. Mitral Valve The mitral valve is normal by two-dimensional, color flow and Doppler interrogation. Trace mitral regurgitation. Aortic Valve The aortic valve is trileaflet and normal by two-dimensional, color flow and Doppler interrogation. There is no significant aortic valve regurgitation. Tricuspid Valve The tricuspid valve is normal by two-dimensional, color flow and Doppler interrogation. There is trace tricuspid valve regurgitation. Pulmonic Valve The pulmonic valve is not well visualized. There is no significant pulmonic valve regurgitation. Vessels The pulmonary artery appears normal. The inferior vena cava pulmonary and hepatic veins appear normal. Pericardium The pericardium is normal by two-dimensional imaging. There is no significant pericardial effusion. Other Findings Limited study due to endotracheal tube and patients breathing CONCLUSIONS Indication: Bacteremia, R/O vegetation Normal left ventricular size and function. Approximate ejection fraction is 50- 55%. Normal right ventricular size and function. Trace mitral and trace tricuspid regurgitation noted. Limited study due to endotracheal tube and patients breathing The quality of the study is suboptimal to assess vegetation no obvious vegetations detected on any of the cardiac valves however if clinical suspicion is very high might consider transesophageal echo. Skyla Douglas (Electronically Signed) Final Date: 22 June 2025 14:54
--- NOTE | 2025-06-20 13:36 | ESPR_ITS ---
Documentation for date of: 06/20/25 Subjective Subjective Interval history: Patient was seen and examined at bedside this morning. No acute overnight events. Patient's blood cultures were positive for S epidermidis and repeat blood cultures did grow GPC's again therefore ordered blood cultures today. Patient was started on tube feeds today. His watch is on the lower extremities did not show any DVT at this time., No repeat abdominal x-ray which showed moderate colonic ileus likely from immobility. His O2 requirements have not increased. Lab paul have been stable. Will order an echo to rule out endocarditis at this time. Exam Vital Signs Temp Pulse Resp BP Pulse Ox O2 Del Method FiO2 97.4 F 53 L 25 H 138/76 H 100 Mechanical Ventilation 30 06/20/25 12:00 06/20/25 12:00 06/20/25 12:00 06/20/25 12:00 06/20/25 12:00 06/20/25 12:00 06/20/25 12:00 Narrative Exam General: Vegetative state PEG tube and trach present Eyes: Anicteric, with eyes closed during assessment Ears: No visible ear discharge Nose: No nasal discharge. Mouth/Throat: Dry mucous membranes, no redness, no lesions. Neck: Neck supple, non-tender, no cervical lymphadenopathy. Lungs: Coarse breath sounds bilaterally Cardio: Normal S1/S2, regular rhythm, no murmurs, no JVD Abdomen: Tense, non-tender, no palpable masses, peristalsis present, no guarding or rebound. Extremities: Symmetrical, no significant deformities, no peripheral edema , non-tender, peripheral pulses presents. Skin: No rashes, no lesions, warm to touch. Neuro: Unable to assess given patient's current medical condition. Objective Labs 06/20/25 05:30 06/20/25 05:36 Labs: Laboratory Results - last 24 hr 06/18/25 06/20/25 06/20/25 09:47 05:30 05:36 WBC 6.4 RBC 3.77 L Hgb 11.0 L Hct 34.7 L MCV 92 MCH 29.2 MCHC 31.7 RDW Std Deviation 60.3 H Plt Count 153 Neut % (Auto) 74 Lymph % (Auto) 15 [place] % (Auto) 10 Eos % (Auto) 1 Baso % (Auto) 1 Neut # (Auto) 4.8 Lymph # (Auto) 0.9 L [place] # (Auto) 0.6 Eos # (Auto) 0.0 Baso # (Auto) 0.0 Immature Gran # (Auto) 0.02 H Absolute Nucleated RBC 0.00 Immature Gran % 0 Nucleated RBC % 0 Sodium 146 H Potassium 3.8 Chloride 107 Carbon Dioxide 26.3 Anion Gap 13 BUN 8 L Creatinine 0.7 Estim Creat Clear Calc 77.2 eGFR > 60 BUN/Creatinine Ratio 11 L Glucose 133 H Calculated Osmolality 290 Calcium 8.8 Corrected Calcium 9.0 Phosphorus 3.8 Magnesium 2.2 Total Bilirubin 0.7 AST 23 ALT 17 Alkaline Phosphatase 73 Total Protein 6.1 Albumin 3.7 D Globulin 2.4 Albumin/Globulin Ratio 1.5 Coccidioides IgG Ab Negative ABG Interpretation ABG results: 06/17/25 06/17/25 01:48 04:17 ABG pH 7.41 7.38 ABG pCO2 49 H 49 H ABG pO2 121 H 112 H ABG HCO3 31 H 29 H ABG O2 Saturation 100 H 99 H ABG Base Excess 6 H 3 Quality Measures Quality Measures none Advance care planning discussed with:: patient Assessment & Plan Assessment Current Active Medications: Generic Name Dose Route Start Last Admin Trade Name Freq PRN Reason Stop Dose Admin Acetaminophen 650 mg 06/17/25 03:21 Acetaminophen 325 Mg Tablet PO 07/17/25 03:20 Q6H PRN Fever >101.5 Albuterol/Ipratropium 3 ml 06/17/25 07:00 06/20/25 10:36 Albuterol/Ipratropium (Duoneb) Rt Emma 3 Ml Nebu INH 07/17/25 06:59 3 ml Q4HRRT KURT Administration Atorvastatin Calcium 40 mg 06/17/25 21:00 06/19/25 21:30 Atorvastatin Calcium 20 Mg Tablet GT 07/17/25 20:59 40 mg HS KURT Administration Bisacodyl 10 mg 06/17/25 05:21 Bisacodyl 10 Mg Supp DC 07/17/25 05:20 QDAY PRN CONSTIPATION Protocol Carvedilol 3.125 mg 06/20/25 08:44 Carvedilol 3.125 Mg Tablet GT 07/17/25 07:59 BIDWM KURT Dextrose 25 ml 06/17/25 05:26 06/18/25 23:08 Dextrose 50%-Water Inj 50 Ml Syringe IV 07/17/25 05:25 25 ml Q15MIN PRN Administration BG 50-70 responsive npo pt Dextrose 50 ml 06/17/25 05:26 Dextrose 50%-Water Inj 50 Ml Syringe IV 07/17/25 05:25 Q15MIN PRN BG <50 OR BG <70 & pt unresponsive Glucagon 1 mg 06/17/25 05:26 Glucagon Inj 1 Mg Vial IM Q15MIN PRN BG <70, and no IV access Piperacillin/Tazobactam/Dextrose 3.375 gm in 50 mls @ 12.5 mls/hr 06/17/25 14:00 06/20/25 05:07 Zosyn IV 06/24/25 13:59 12.5 mls/hr Q8HR KURT Administration Protocol Insulin Degludec 20 unit 06/17/25 09:00 06/18/25 08:21 Insulin Degludec 5 Unit/0.05 Ml (Per 5 Units) SC 07/17/25 08:59 Not Given On Hold: 06/18/25 08:25 QDAY KURT Insulin Human Lispro 0 unit 06/18/25 06:00 06/20/25 11:35 Insulin Lispro (Admelog) 1 Unit/0.01 Ml Unit SC 07/18/25 05:59 Not Given Q6HR KURT Protocol Magnesium Hydroxide 30 ml 06/17/25 09:00 06/20/25 09:47 Milk Of Magnesia Susp 30 Ml Udc GT 07/17/25 08:59 30 ml QDAY KURT Administration Protocol Polyethylene Glycol 17 gm 06/17/25 05:30 Polyethylene Glycol 17 Gm Packet GT 07/17/25 08:59 QDAY PRN CONSTIPATION Protocol Plan Patient is a 85 yr old male with PMH of vegetative state secondary CVA 2019, tracheostomy, PEG tube feed, atrial fibrillation, HTN, HLD and diabetes brought to ED from subacute in view of shortness of breath and admitted on 06/17/25 for possible pneumonia and UTI. #Acute on chronic hypoxic respiratory failure secondary to #Pneumonia (ventilator associated versus aspiration). # S epidermidis bacteremia pCO2 49, pO2 112, HCO3 31, base excess 6 on admission; chest x-ray and CT abdomen pelvis both show significant pneumonia left base; RR 36 on admission. Initial blood cultures showed GPC which came out to be staph LS epidermidis Blood cultures positive for gram-positive cocci in 1 out of 2 bottles at 24 hours; waiting on final read Plan: Vancomycin discontinued due to S. epidermidis sensitivities Continue Zosyn Echo ordered to rule out any vegetations Duonebs q4hr as needed Repeat blood cultures today Pending sputum cultures # UTI, Klebsiella pneumonia and Proteus mirabilis Urine culture grow Klebsiella pneumoniae and Proteus Mirabella's UA positive for bacteria 4+ and 105 WBC Plan: Continue Zosyn Urine cultures from 06/17/2025 show Klebsiella pneumoniae sensitive to pip-tazo #ileus CT scan showed air and fluid distended colon; x-ray abdomen showed prominent colonic ileus Abdominal x-ray again showed concerns for ileus Plan: Having multiple bowel movements will continue with bowel regimen #Elevated d-dimer D-dimer on admission was 2780. Likely infectious Ultrasound lower extremities did not show any DVTs. Chronic issues: # Hypertension # Hyperlipidemia # Diabetes # Constipation Plan: Carvedilol 3.125 mg twice daily Atorvastatin 40 mg. Degludec 20 units on hold with sliding scale Bisacodyl suppository 10 mg PRN Milk of magnesia 30 mL GT PRN MiraLAX 17 g GT PRN Fleet enema 133 mL DC PRN Disposition: Patient admitted to telemetry for VAP and S. epidermidis pending echo and repeat blood cx. Diet: Tube feeds GI prophylaxis: none DVT prophylaxis: SCDs Code:DNR Case disclosed with Attending Dr. Wendy Smiley PGY2 Disclaimer: Even though this this note was dictated by speech recognition and even though it was carefully revised there may still be minor errors in machine inker due to voice recognition software. Attending Provider Attestation/Addendum I have seen and examined the patient. I was physically present for the taylor portions of the services provided including history, physical exam, diagnosis, treatment plans and orders. I agree with assessment and plan of care as documented by residents. Patient seen and examined at bedside this morning. No acute overnight events. Appears comfortable. Saturating well on mechanical ventilator, 30% FiO2. Lab results are mostly stable except for mild hyponatremia, patient has been restarted on tube feeding, we will monitor closely. Blood culture from 06/17/2025 resulted, showed Staphylococcus epidermidis from aerobic bottle but blood culture from 06/18/2025 also grew GPC resembling staph. Urine culture grew Klebsiella pneumonia and Proteus Mirabella's sensitive to Zosyn. Since all bacteria's are sensitive to Zosyn, we will discontinue IV vancomycin, we will also obtain repeat blood culture and echocardiography. With improvement in respiratory status and negative DVT study, low suspicion for PE. Obtained follow-up abdominal x-ray, shows small bowel ileus. Even though this this note was carefully revised there may still be minor errors in machine inker due to voice recognition software. Shania Nguyen MD
--- NOTE | 2025-06-20 17:14 | PC.SS ---
Rounding Note: Tube feeds to re-start today. Blood cultures are pending.
[2025-06-20] MEDS: ATORVASTATIN CALCIUM 20 MG TABLET 40 MG GT (20:35)
--- NOTE | 2025-06-20 21:23 | PD.IMPROG ---
Documentation for date of: 06/20/25 Subjective Subjective Interval history: On enteral feeding at 42 cc an hour and tolerating it very well Abdomen is not distended Exam Vital Signs Temp Pulse Resp BP Pulse Ox O2 Del Method FiO2 96.9 F 63 20 131/60 H 99 Mechanical Ventilation 30 06/20/25 20:00 06/20/25 20:00 06/20/25 20:00 06/20/25 20:00 06/20/25 20:00 06/20/25 20:00 06/20/25 18:11 Objective Labs 06/20/25 05:30 06/20/25 05:36 Labs: Laboratory Results - last 24 hr 06/18/25 06/20/25 06/20/25 09:47 05:30 05:36 WBC 6.4 RBC 3.77 L Hgb 11.0 L Hct 34.7 L MCV 92 MCH 29.2 MCHC 31.7 RDW Std Deviation 60.3 H Plt Count 153 Neut % (Auto) 74 Lymph % (Auto) 15 [place] % (Auto) 10 Eos % (Auto) 1 Baso % (Auto) 1 Neut # (Auto) 4.8 Lymph # (Auto) 0.9 L [place] # (Auto) 0.6 Eos # (Auto) 0.0 Baso # (Auto) 0.0 Immature Gran # (Auto) 0.02 H Absolute Nucleated RBC 0.00 Immature Gran % 0 Nucleated RBC % 0 Sodium 146 H Potassium 3.8 Chloride 107 Carbon Dioxide 26.3 Anion Gap 13 BUN 8 L Creatinine 0.7 Estim Creat Clear Calc 77.2 eGFR > 60 BUN/Creatinine Ratio 11 L Glucose 133 H Calculated Osmolality 290 Calcium 8.8 Corrected Calcium 9.0 Phosphorus 3.8 Magnesium 2.2 Total Bilirubin 0.7 AST 23 ALT 17 Alkaline Phosphatase 73 Total Protein 6.1 Albumin 3.7 D Globulin 2.4 Albumin/Globulin Ratio 1.5 Coccidioides IgG Ab Negative Impressions Impression: Resolved abdominal distention due to stool impaction patient's status post GoLytely flush Tolerating PEG feeding at 42 cc an hour Continue current management ABG Interpretation ABG results: 06/17/25 06/17/25 01:48 04:17 ABG pH 7.41 7.38 ABG pCO2 49 H 49 H ABG pO2 121 H 112 H ABG HCO3 31 H 29 H ABG O2 Saturation 100 H 99 H ABG Base Excess 6 H 3 Assessment & Plan A&P Narrative # Pseudoobstruction: Dilatation of the colon # Ileus # Stool burden with colonic dilatation Plan NG tube to intermittent suction Rectal tube Left see how much comes out of the NGT if not much drainage via the NGT Recommend giving GoLytely at 200 cc an hour to flush the colon out we will follow the patient Currently have no plans to do any colonoscopy Other medical problems include # Nonverbal # 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
[2025-06-20 22:21] LABS: Vancomycin,Trough 30.8 mcg/mL (5.0-10.0)
[2025-06-21] VITALS (14 sets, daily range): BP systolic 126–156; BP diastolic 69–96; PULSE 45–102; RESP 21–29; TEMP 36.2–36.6; O2SAT 100; BMI 22.3
[2025-06-21] MEDS: ALBUTEROL/IPRATROPIUM (Duoneb) RT SOL 3 ML NEBU INH ×5 (02:21→19:03)
[2025-06-21] MEDS: PIPER/TAZO 3.375 GM PREMIX 3.375 GM/50 ML BAG IV ×3 (05:01→20:49)
[2025-06-21 06:15] LABS: Basophils # (Auto) 0.0 Thou/mm3 (0.0-0.2); Basophils % (Auto) 0 % (0-2.5); Eosinophils # (Auto) 0.2 Thou/mm3 (0.0-0.5); Eosinophils % (Auto) 3 % (0-10); Hematocrit 32.2 % (41.0-53.0); Hemoglobin 10.3 g/dL (13.5-16.0); Immature Granulocytes Auto 0.02 Thou/mm3 (0.00-0.00); Lymphocytes # (Auto) 0.8 Thou/mm3 (1.0-4.8); Lymphocytes % (Auto) 15 % (10-50); Mean Corpuscular HGB Conc 32.0 g/dl (31.0-37.0); Mean Corpuscular Hemoglobin 29.3 pg (25.0-35.0); Mean Corpuscular Volume 92 fL (80-100); Monocytes # (Auto) 0.5 Thou/mm3 (0.0-0.8); Monocytes % (Auto) 9 % (0-12); Neutrophils # (Auto) 4.0 Thou/mm3 (1.8-7.7); Neutrophils % (Auto) 72 % (37-80); Nucleated Red Blood Cell # 0.00 Thou/mm3 (0.00-0.00); Nucleated Red Blood Cell % 0 /100 WBC (0); Platelet Count 139 Thou/mm3 (140-440); RDW Standard Deviation 59.6 fL (35.1-43.9); Red Blood Count 3.52 Miln/mm3 (4.50-5.90); White Blood Count 5.6 Thou/mm3 (3.8-10.6)
[2025-06-21 06:42] LABS: Alanine Aminotransferase 17 U/L (10-49); Albumin, Serum 3.6 gm/dL (3.4-4.8); Anion Gap 11 (7-16); Aspartate Amino Transferase 20 U/L (0-34); BUN/Creatinine Ratio 20 Ratio (12-20); Bilirubin,Total 0.5 mg/dL (0.3-1.2); Blood Urea Nitrogen 14 mg/dL (9-23); Calcium 8.8 mg/dL (8.3-10.6); Calcium (Corrected) 9.1 mg/dL (8.5-10.1); Carbon Dioxide 31.6 mMol/L (20.0-31.0); Chloride 104 mMol/L (98-107); Creatinine (Component) 0.7 mg/dL (0.6-1.3); Estimated Creatinine Clearance 77.2 mL/min (>60); Globulin 2.4 gm/dL (2.3-3.5); Glucose 143 mg/dL (74-106); Osmolality,Calculated 294 (275-295); Potassium 3.2 mMol/L (3.4-5.1); Sodium 147 mMol/L (136-145); Total Protein 6.0 gm/dL (5.7-8.2); eGFR > 60 See Note
[2025-06-21 06:43] LABS: Albumin/Globulin Ratio 1.5 (1.2-2.2); Alkaline Phosphatase 77 U/L (46-116)
[2025-06-21 08:46] LABS: Magnesium 2.3 mg/dL (1.6-2.6); Phosphorous 3.3 mg/dL (2.4-5.1)
[2025-06-21] MEDS: Milk Of Magnesia Susp 30 ML UDC GT (09:33)
--- NOTE | 2025-06-21 13:23 | ESPR_ITS ---
<Statement entered by Shankar Smiley MD - 06/21/25 14:45> I have reviewed the note and agree with the resident's assessment & plan with exceptions as below. I have personally reviewed labs, imaging, home meds/prior records, examined the patient, formulated and discussed management plan with my attending. Patient was seen and examined at bedside this morning. No acute overnight events. Patient's most recent blood cultures have been negative in the first 24 hours. Patient's second set of blood cultures that did grow GPC's today showed Staphylococcus epidermidis and sputum cultures did grow Pseudomonas aeruginosa. At this time we will continue with Zosyn as patient has multiple cultures with multiple organisms resistant to multiple drugs and Zosyn is a common antibiotic with they are all sensitive to. Patient has not spiked any fevers or WBCs. Continues to have bowel movements. Sodium at that go up therefore we will give 80 cc/h of free water flushes as patient has 1 L free water deficit. Otherwise expect possible discharge in the next 24 to 48 hours. Shankar Smiley PGY2 Disclaimer: Even though this this note was dictated by speech recognition and even though it was carefully revised there may still be minor errors in director of quality improvement due to voice recognition software. Documentation for date of: 06/21/25 Subjective Subjective Interval history: Patient seen and examined at bedside; no acute events overnight. Patient's second set of blood cultures grew Staph epidermidis, while the sputum cultures grew Pseudomonas aeruginosa, both sensitive to pip-tazo. Exam Vital Signs Temp Pulse Resp BP Pulse Ox O2 Del Method FiO2 97.8 F 49 L 27 H 126/69 100 Mechanical Ventilation 30 06/21/25 12:00 06/21/25 12:00 06/21/25 12:00 06/21/25 12:00 06/21/25 12:00 06/21/25 12:00 06/21/25 12:00 Narrative Exam General: Unable to assess ANO status secondary to vegetative state, no acute distress, well-nourished, well-developed, PEG tube and trach present Eyes: Anicteric, unable to assess vision due to vegetative state Ears: No ear pain, no ear discharge, unable to assess hearing due to vegetative state Nose: No nasal discharge. Mouth/Throat: Moist mucous membranes, no redness, no lesions. Neck: Neck supple, non-tender, no cervical lymphadenopathy. Lungs: Mechanical breath sounds bilaterally Cardio: Normal S1/S2, regular rhythm, no murmurs, no JVD or carotid bruits. Abdomen: Tense, non-tender, no palpable masses, peristalsis present, no guarding or rebound. Extremities: Symmetrical, no significant deformities, no peripheral edema , non-tender, peripheral pulses presents. Skin: No rashes, no lesions, warm to touch. Neuro: Unable to assess due to vegetative state Psych: Unable to assess due to vegetative state Objective Labs 06/21/25 05:50 06/21/25 05:50 Labs: Laboratory Results - last 24 hr 06/20/25 06/21/25 21:38 05:50 WBC 5.6 RBC 3.52 L Hgb 10.3 L Hct 32.2 L MCV 92 MCH 29.3 MCHC 32.0 RDW Std Deviation 59.6 H Plt Count 139 L Neut % (Auto) 72 Lymph % (Auto) 15 [place] % (Auto) 9 Eos % (Auto) 3 Baso % (Auto) 0 Neut # (Auto) 4.0 Lymph # (Auto) 0.8 L [place] # (Auto) 0.5 Eos # (Auto) 0.2 Baso # (Auto) 0.0 Immature Gran # (Auto) 0.02 H Absolute Nucleated RBC 0.00 Immature Gran % 0 Nucleated RBC % 0 Sodium 147 H Potassium 3.2 L D Chloride 104 Carbon Dioxide 31.6 H Anion Gap 11 BUN 14 Creatinine 0.7 Estim Creat Clear Calc 77.2 eGFR > 60 BUN/Creatinine Ratio 20 Glucose 143 H Calculated Osmolality 294 Calcium 8.8 Corrected Calcium 9.1 Phosphorus 3.3 Magnesium 2.3 Total Bilirubin 0.5 AST 20 ALT 17 Alkaline Phosphatase 77 Total Protein 6.0 Albumin 3.6 Globulin 2.4 Albumin/Globulin Ratio 1.5 Vancomycin Trough 30.8 H* ABG Interpretation ABG results: 06/17/25 06/17/25 01:48 04:17 ABG pH 7.41 7.38 ABG pCO2 49 H 49 H ABG pO2 121 H 112 H ABG HCO3 31 H 29 H ABG O2 Saturation 100 H 99 H ABG Base Excess 6 H 3 Quality Measures Quality Measures none Advance care planning discussed with:: other Assessment & Plan Assessment Current Active Medications: Generic Name Dose Route Start Last Admin Trade Name Freq PRN Reason Stop Dose Admin Acetaminophen 650 mg 06/17/25 03:21 Acetaminophen 325 Mg Tablet PO 07/17/25 03:20 Q6H PRN Fever >101.5 Albuterol/Ipratropium 3 ml 06/17/25 07:00 06/21/25 10:51 Albuterol/Ipratropium (Duoneb) Rt Emma 3 Ml Nebu INH 07/17/25 06:59 3 ml Q4HRRT KURT Administration Atorvastatin Calcium 40 mg 06/17/25 21:00 06/20/25 20:35 Atorvastatin Calcium 20 Mg Tablet GT 07/17/25 20:59 40 mg HS KURT Administration Bisacodyl 10 mg 06/17/25 05:21 Bisacodyl 10 Mg Supp SC 07/17/25 05:20 QDAY PRN CONSTIPATION Protocol Carvedilol 3.125 mg 06/20/25 08:44 06/21/25 09:05 Carvedilol 3.125 Mg Tablet GT 07/17/25 07:59 Not Given BIDWM KURT Dextrose 25 ml 06/17/25 05:26 06/18/25 23:08 Dextrose 50%-Water Inj 50 Ml Syringe IV 07/17/25 05:25 25 ml Q15MIN PRN Administration BG 50-70 responsive npo pt Dextrose 50 ml 06/17/25 05:26 Dextrose 50%-Water Inj 50 Ml Syringe IV 07/17/25 05:25 Q15MIN PRN BG <50 OR BG <70 & pt unresponsive Glucagon 1 mg 06/17/25 05:26 Glucagon Inj 1 Mg Vial IM Q15MIN PRN BG <70, and no IV access Piperacillin/Tazobactam/Dextrose 3.375 gm in 50 mls @ 12.5 mls/hr 06/17/25 14:00 06/21/25 05:01 Zosyn IV 06/24/25 13:59 12.5 mls/hr Q8HR KURT Administration Protocol Insulin Degludec 20 unit 06/17/25 09:00 06/18/25 08:21 Insulin Degludec 5 Unit/0.05 Ml (Per 5 Units) SC 07/17/25 08:59 Not Given On Hold: 06/18/25 08:25 QDAY KURT Insulin Human Lispro 0 unit 06/18/25 06:00 06/21/25 12:29 Insulin Lispro (Admelog) 1 Unit/0.01 Ml Unit SC 07/18/25 05:59 Not Given Q6HR KURT Protocol Magnesium Hydroxide 30 ml 06/17/25 09:00 06/21/25 09:33 Milk Of Magnesia Susp 30 Ml Udc GT 07/17/25 08:59 30 ml QDAY KURT Administration Protocol Polyethylene Glycol 17 gm 06/17/25 05:30 Polyethylene Glycol 17 Gm Packet GT 07/17/25 08:59 QDAY PRN CONSTIPATION Protocol Plan Patient is a 85 yr old male with PMH of vegetative state secondary CVA 2018, tracheostomy, PEG tube feed, atrial fibrillation, HTN, HLD and diabetes brought to ED from subacute in view of shortness of breath and admitted on 06/17/25 for possible pneumonia and UTI. #Acute on chronic hypoxic respiratory failure secondary to # Pseudomonas aeruginosa pneumonia # S epidermidis bacteremia pCO2 49, pO2 112, HCO3 31, base excess 6 on admission; chest x-ray and CT abdomen pelvis both show significant pneumonia left base; RR 36 on admission. Initial blood cultures showed GPC which came out to be staph epidermidis Sputum cultures positive for Pseudomonas aeruginosa, sensitive to pip-tazo Blood cultures from 06/18/2025 positive for Staphylococcus epidermidis in 1 out of 2 bottles, sensitive to pip-tazo blood cultures from 06/20/2025 showed no growth at 24 hours Plan: Vancomycin discontinued due to S. epidermidis sensitivities Continue pip-tazo Echo ordered to rule out any vegetations Duonebs q4hr as needed # UTI, Klebsiella pneumonia and Proteus mirabilis Urine culture grow Klebsiella pneumoniae and Proteus mirabilis UA positive for bacteria 4+ and 105 WBC Plan: Continue pip-tazo Urine cultures from 06/17/2025 show Klebsiella pneumoniae sensitive to pip-tazo #ileus CT scan showed air and fluid distended colon; x-ray abdomen showed prominent colonic ileus Abdominal x-ray again showed concerns for ileus Patient had 3 bowel movements 06/20/2025 and 1 as of 06/21/2025 morning Plan: Having multiple bowel movements will continue with bowel regimen #Hypernatremia Sodium 06/21/2025 was 147, 06/20/2025 was 146, 06/19/2025 was 147, from previous value of 140 on 06/18/2025 Free water deficit of 1 L if goal is sodium of 143 Plan: Increase free water flushes to 80 cc/h Trend sodium with a.m. labs #Elevated d-dimer D-dimer on admission was 2780. Likely infectious Ultrasound lower extremities did not show any DVTs. Chronic issues: # Hypertension # Hyperlipidemia # Diabetes # Constipation Plan: Carvedilol 3.125 mg twice daily Atorvastatin 40 mg. Degludec 20 units on hold with sliding scale Bisacodyl suppository 10 mg PRN Milk of magnesia 30 mL GT PRN MiraLAX 17 g GT PRN Fleet enema 133 mL SC PRN Disposition: Tele Diet: Tube feeds GI prophylaxis: none DVT prophylaxis: SCDs Code:DNR This case was discussed with my attending physician, Dr. Nguyen, and senior resident, Dr. Uriostegui. Shaheen Garrett MD-PhD, PGY1 Attending Provider Attestation/Addendum I have seen and examined the patient. I was physically present for the taylor portions of the services provided including history, physical exam, diagnosis, treatment plans and orders. I agree with assessment and plan of care as documented by residents. Patient seen and examined at bedside this morning. No acute overnight events. Appears comfortable. Vital signs have been stable, saturating well on mechanical ventilator, 30 FiO2. Lab results show potassium of 3.2, that sodium level went up to 147, we will increase his free water flushes and monitor sodium closely. Blood culture from 06/17 and 06/18 grew Staphylococcus epidermidis one of the bottles. Repeat blood culture from yesterday has been negative for more than 24 hours. We will continue with IV Zosyn. Awaiting echocardiography results. Even though this this note was carefully revised there may still be minor errors in director of quality improvement due to voice recognition software. Shania Nguyen MD
--- NOTE | 2025-06-21 15:40 | PC.SS ---
Rounding Note: Echo is pending. Possible d/c tomorrow.
--- NOTE | 2025-06-21 15:49 | PC.SS ---
DESKTOP PUBLISHING ASSOCIATE conducted phone contact with the patient?s son, Colt Roy ; to conduct initial assessment.? Patient is a resident of Sub-Acute unit.? Patient has been residing at unit for approximately 4 years.? Patient is in possession of Trach and PEG Tube.? Patient is non-ambulatory and requires assistance with the completion of ADL?s.? Patient?s surrogate medical decision maker is son, Colt Roy.? Sub-Acute PCP is Dr. Ramires.? The discharge plan is for the patient to return to Sub-Acute.? No further discharge needs identified by the patient.? No further intervention required at this time, social insurance analyst will be available to address any further concerns.? Next of Kin: Colt Roy D/C Plan: Sub-Acute
[2025-06-21 19:48] LABS: Sodium 145 mMol/L (136-145)
--- NOTE | 2025-06-21 20:07 | ESPR_ITS ---
Documentation for date of: 06/21/25 Subjective Subjective Interval history: Tolerating PEG feeding at 42 cc an hour Exam Vital Signs Temp Pulse Resp BP Pulse Ox O2 Del Method FiO2 97.4 F 77 25 H 151/96 H 100 Mechanical Ventilation 30 06/21/25 16:00 06/21/25 19:03 06/21/25 19:03 06/21/25 17:42 06/21/25 19:03 06/21/25 16:00 06/21/25 19:03 Objective Labs 06/21/25 05:50 06/21/25 19:07 Labs: Laboratory Results - last 24 hr 06/20/25 06/21/25 06/21/25 21:38 05:50 19:07 WBC 5.6 RBC 3.52 L Hgb 10.3 L Hct 32.2 L MCV 92 MCH 29.3 MCHC 32.0 RDW Std Deviation 59.6 H Plt Count 139 L Neut % (Auto) 72 Lymph % (Auto) 15 [place] % (Auto) 9 Eos % (Auto) 3 Baso % (Auto) 0 Neut # (Auto) 4.0 Lymph # (Auto) 0.8 L [place] # (Auto) 0.5 Eos # (Auto) 0.2 Baso # (Auto) 0.0 Immature Gran # (Auto) 0.02 H Absolute Nucleated RBC 0.00 Immature Gran % 0 Nucleated RBC % 0 Sodium 147 H 145 Potassium 3.2 L D Chloride 104 Carbon Dioxide 31.6 H Anion Gap 11 BUN 14 Creatinine 0.7 Estim Creat Clear Calc 77.2 eGFR > 60 BUN/Creatinine Ratio 20 Glucose 143 H Calculated Osmolality 294 Calcium 8.8 Corrected Calcium 9.1 Phosphorus 3.3 Magnesium 2.3 Total Bilirubin 0.5 AST 20 ALT 17 Alkaline Phosphatase 77 Total Protein 6.0 Albumin 3.6 Globulin 2.4 Albumin/Globulin Ratio 1.5 Vancomycin Trough 30.8 H* Impressions Impression: Stool impaction status post GoLytely flush Tolerating enteral feeding via PEG tube ABG Interpretation ABG results: 06/17/25 06/17/25 01:48 04:17 ABG pH 7.41 7.38 ABG pCO2 49 H 49 H ABG pO2 121 H 112 H ABG HCO3 31 H 29 H ABG O2 Saturation 100 H 99 H ABG Base Excess 6 H 3 Assessment & Plan A&P Narrative # Pseudoobstruction: Dilatation of the colon # Ileus # Stool burden with colonic dilatation Plan NG tube to intermittent suction Rectal tube Left see how much comes out of the NGT if not much drainage via the NGT Recommend giving GoLytely at 200 cc an hour to flush the colon out we will follow the patient Currently have no plans to do any colonoscopy Other medical problems include # Nonverbal # 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
[2025-06-21] MEDS: ATORVASTATIN CALCIUM 20 MG TABLET 40 MG GT (20:49)
[2025-06-22] VITALS (12 sets, daily range): BP systolic 141–159; BP diastolic 58–92; PULSE 54–82; RESP 19–29; TEMP 36.1–36.8; O2SAT 97–100
[2025-06-22] MEDS: ALBUTEROL/IPRATROPIUM (Duoneb) RT SOL 3 ML NEBU INH ×4 (01:15→19:00)
[2025-06-22] MEDS: PIPER/TAZO 3.375 GM PREMIX 3.375 GM/50 ML BAG IV ×3 (05:35→23:41)
[2025-06-22] MEDS: Milk Of Magnesia Susp 30 ML UDC GT (08:58)
--- NOTE | 2025-06-22 09:08 | PD.IDPROG ---
Subjective Subjective Interval history: asked to see this 85 y/o dnr man with pneumonia and trach cx with psa r to quinolones Exam Vital Signs Temp Pulse Resp BP Pulse Ox O2 Del Method FiO2 97.5 F 69 26 H 141/85 H 99 Mechanical Ventilation 30 06/22/25 08:00 06/22/25 08:58 06/22/25 08:00 06/22/25 08:58 06/22/25 08:00 06/22/25 08:00 06/22/25 08:00 Narrative Exam not interactive. on 30% O2 via vent so pneumonia not that bad Objective - Internal Medicine Labs 06/21/25 05:50 06/22/25 08:15 Labs: Laboratory Results - last 24 hr 06/21/25 19:07 Sodium 145 ABG Interpretation ABG results: 06/17/25 06/17/25 01:48 04:17 ABG pH 7.41 7.38 ABG pCO2 49 H 49 H ABG pO2 121 H 112 H ABG HCO3 31 H 29 H ABG O2 Saturation 100 H 99 H ABG Base Excess 6 H 3 Assessment & Plan A&P Narrative pna on imaging gi issues. hld htn cva dm II likely to do ok with zosyn as that will address the gi issues as well as the pneumonia, today is day 5 o 7d planned. please do not repeat sputum cx as a test of cure as there will be R to zosyn noted ok to finish rx wednesday am and return to subacute at that time if ok. I can see wednesday if he stays in house Time Spent With Patient Time: Total time spent is greater than 50% in coordination of care (as documented) at patient's floor/unit and/or counseling patient:
[2025-06-22 09:35] LABS: Alanine Aminotransferase 16 U/L (10-49); Albumin, Serum 3.5 gm/dL (3.4-4.8); Albumin/Globulin Ratio 1.8 (1.2-2.2); Alkaline Phosphatase 70 U/L (46-116); Anion Gap 13 (7-16); Aspartate Amino Transferase 31 U/L (0-34); BUN/Creatinine Ratio 20 Ratio (12-20); Bilirubin,Total 0.6 mg/dL (0.3-1.2); Blood Urea Nitrogen 12 mg/dL (9-23); Calcium 8.3 mg/dL (8.3-10.6); Calcium (Corrected) 8.7 mg/dL (8.5-10.1); Carbon Dioxide 28.0 mMol/L (20.0-31.0); Chloride 102 mMol/L (98-107); Creatinine (Component) 0.6 mg/dL (0.6-1.3); Estimated Creatinine Clearance 90.1 mL/min (>60); Globulin 2.0 gm/dL (2.3-3.5); Glucose 153 mg/dL (74-106); Magnesium 2.0 mg/dL (1.6-2.6); Osmolality,Calculated 287 (275-295); Phosphorous 3.1 mg/dL (2.4-5.1); Potassium 3.5 mMol/L (3.4-5.1); Sodium 143 mMol/L (136-145); Total Protein 5.5 gm/dL (5.7-8.2); eGFR > 60 See Note
--- NOTE | 2025-06-22 10:48 | ESCONSULT_ITS ---
RE: LIZZIE PEÑA : 1940 DATE OF CONSULTATION: 06/22/2025 REFERRING PHYSICIAN: Dr. Andarde. REASON FOR CONSULTATION: Pneumonia left lower lobe without significant hypoxemia in a chronically ventilated 85-year-old. HISTORY OF PRESENT ILLNESS: Patient is an 85-year-old here for abdominal symptoms primarily. There is a question about UTI on admission, but that was not verified. Swab cultures are negative. He is due to complete therapy for pneumonia in a couple of days. Usual treatment is about seven days. He was admitted on the , so he will finish on the or so in the morning. He said he was admitted 0300 in the morning. He does have 105 white cells in the urine but also 121 red cells so he may have more of a bladder issue otherwise. Urinalysis was obtained earlier in the day and his urine culture is somewhat mixed obtained at the same time, looks like so. He is on Zosyn and which is probably reasonable. His blood culture shows a probable contaminant of coagulase negative staph in 1 bottle only. This is likely a contaminant. Blood cultures themselves may be contaminated but he has pneumonia so we will go ahead and finish 7 days of treatment as a precaution. There is no need to repeat the urine or the sputum cultures, as the urine is likely to be negative but the sputum may be positive with a resistant organism because of his trach. Pseudomonas is a likely a player. His Zosyn is good for anaerobes as well as enterococcus and most gram-negatives so it is okay to continue that for now. I will check on him Wednesday if he remains but if he goes back to subacute on Wednesday evening that would be fine. Of note, his exam is benign. Patient is on 3% oxygen on the ventilator and he is not interactive. There is a feeding tube and peripheral IV noted. DT: 10:27:31 TT: 10:46:00 Ref: [id number] - TID: [id number] MTDD
--- NOTE | 2025-06-22 12:15 | PD.RESPRO ---
Documentation for date of: 06/22/25 Subjective Subjective Interval history: Patient was seen and examined at bedside; no acute events overnight. ID was consulted, they are okay with continuing Zosyn for antibiotic coverage. Respiratory therapy was called to replace trach. Exam Vital Signs Temp Pulse Resp BP Pulse Ox O2 Del Method FiO2 97.5 F 69 26 H 141/85 H 99 Mechanical Ventilation 30 06/22/25 08:00 06/22/25 08:58 06/22/25 08:00 06/22/25 08:58 06/22/25 08:00 06/22/25 08:00 06/22/25 08:00 Narrative Exam General: Unable to assess ANO status secondary to vegetative state, no acute distress, well-nourished, well-developed, PEG tube and trach present Eyes: Anicteric, unable to assess vision due to vegetative state Ears: No ear pain, no ear discharge, unable to assess hearing due to vegetative state Nose: No nasal discharge. Mouth/Throat: Moist mucous membranes, no redness, no lesions. Neck: Neck supple, non-tender, no cervical lymphadenopathy. Lungs: Mechanical breath sounds bilaterally Cardio: Normal S1/S2, regular rhythm, no murmurs, no JVD or carotid bruits. Abdomen: Tense, non-tender, no palpable masses, peristalsis present, no guarding or rebound. Extremities: Symmetrical, no significant deformities, no peripheral edema , non-tender, peripheral pulses presents. Skin: No rashes, no lesions, warm to touch. Neuro: Unable to assess due to vegetative state Psych: Unable to assess due to vegetative state Objective Labs 06/23/25 05:25 06/23/25 05:25 Labs: Laboratory Results - last 24 hr 06/21/25 06/22/25 19:07 08:15 Sodium 145 143 Potassium 3.5 Chloride 102 Carbon Dioxide 28.0 Anion Gap 13 BUN 12 Creatinine 0.6 Estim Creat Clear Calc 90.1 eGFR > 60 BUN/Creatinine Ratio 20 Glucose 153 H Calculated Osmolality 287 Calcium 8.3 Corrected Calcium 8.7 Phosphorus 3.1 Magnesium 2.0 Total Bilirubin 0.6 AST 31 ALT 16 Alkaline Phosphatase 70 Total Protein 5.5 L Albumin 3.5 Globulin 2.0 L Albumin/Globulin Ratio 1.8 ABG Interpretation ABG results: 06/17/25 06/17/25 01:48 04:17 ABG pH 7.41 7.38 ABG pCO2 49 H 49 H ABG pO2 121 H 112 H ABG HCO3 31 H 29 H ABG O2 Saturation 100 H 99 H ABG Base Excess 6 H 3 Quality Measures Quality Measures none Advance care planning discussed with:: other Assessment & Plan Assessment Current Active Medications: Generic Name Dose Route Start Last Admin Trade Name Freq PRN Reason Stop Dose Admin Acetaminophen 650 mg 06/17/25 03:21 Acetaminophen 325 Mg Tablet PO 07/17/25 03:20 Q6H PRN Fever >101.5 Albuterol/Ipratropium 3 ml 06/22/25 01:00 06/22/25 06:49 Albuterol/Ipratropium (Duoneb) Rt Emma 3 Ml Nebu INH 07/22/25 00:59 3 ml Q6HRRT KURT Administration Atorvastatin Calcium 40 mg 06/17/25 21:00 06/21/25 20:49 Atorvastatin Calcium 20 Mg Tablet GT 07/17/25 20:59 40 mg HS KURT Administration Bisacodyl 10 mg 06/17/25 05:21 Bisacodyl 10 Mg Supp SD 07/17/25 05:20 QDAY PRN CONSTIPATION Protocol Carvedilol 3.125 mg 06/20/25 08:44 06/22/25 08:58 Carvedilol 3.125 Mg Tablet GT 07/17/25 07:59 3.125 mg BIDWM KURT Administration Dextrose 25 ml 06/17/25 05:26 06/18/25 23:08 Dextrose 50%-Water Inj 50 Ml Syringe IV 07/17/25 05:25 25 ml Q15MIN PRN Administration BG 50-70 responsive npo pt Dextrose 50 ml 06/17/25 05:26 Dextrose 50%-Water Inj 50 Ml Syringe IV 07/17/25 05:25 Q15MIN PRN BG <50 OR BG <70 & pt unresponsive Glucagon 1 mg 06/17/25 05:26 Glucagon Inj 1 Mg Vial IM Q15MIN PRN BG <70, and no IV access Piperacillin/Tazobactam/Dextrose 3.375 gm in 50 mls @ 12.5 mls/hr 06/17/25 14:00 06/22/25 05:35 Zosyn IV 06/24/25 13:59 12.5 mls/hr Q8HR KURT Administration Protocol Insulin Degludec 20 unit 06/17/25 09:00 06/18/25 08:21 Insulin Degludec 5 Unit/0.05 Ml (Per 5 Units) SC 07/17/25 08:59 Not Given On Hold: 06/18/25 08:25 QDAY KURT Insulin Human Lispro 0 unit 06/18/25 06:00 06/22/25 05:34 Insulin Lispro (Admelog) 1 Unit/0.01 Ml Unit SC 07/18/25 05:59 Not Given Q6HR KURT Protocol Magnesium Hydroxide 30 ml 06/17/25 09:00 06/22/25 08:58 Milk Of Magnesia Susp 30 Ml Udc GT 07/17/25 08:59 30 ml QDAY KURT Administration Protocol Polyethylene Glycol 17 gm 06/17/25 05:30 Polyethylene Glycol 17 Gm Packet GT 07/17/25 08:59 QDAY PRN CONSTIPATION Protocol Plan Patient is a 85 yr old male with PMH of vegetative state secondary CVA 2019, tracheostomy, PEG tube feed, atrial fibrillation, HTN, HLD and diabetes brought to ED from subacute in view of shortness of breath and admitted on 06/17/25 for possible pneumonia and UTI. #Acute on chronic hypoxic respiratory failure secondary to # Pseudomonas aeruginosa pneumonia # S epidermidis bacteremia pCO2 49, pO2 112, HCO3 31, base excess 6 on admission; chest x-ray and CT abdomen pelvis both show significant pneumonia left base; RR 36 on admission. Initial blood cultures showed GPC which came out to be staph epidermidis Sputum cultures positive for Pseudomonas aeruginosa, sensitive to pip-tazo Blood cultures from 06/18/2025 positive for Staphylococcus epidermidis in 1 out of 2 bottles, sensitive to pip-tazo blood cultures from 06/20/2025 showed no growth at 48 hours Plan: Vancomycin discontinued due to S. epidermidis sensitivities ID consulted, thank you for recommendations?continue pip-tazo until Wednesday a.m. Echo ordered to rule out any vegetations Duonebs q4hr as needed Asked RT to replace trach. # UTI, Klebsiella pneumonia and Proteus mirabilis Urine culture grow Klebsiella pneumoniae and Proteus mirabilis UA positive for bacteria 4+ and 105 WBC Plan: Continue pip-tazo as above Urine cultures from 06/17/2025 show Klebsiella pneumoniae sensitive to pip-tazo #ileus CT scan showed air and fluid distended colon; x-ray abdomen showed prominent colonic ileus Abdominal x-ray again showed concerns for ileus Patient had 3 bowel movements 06/20/2025, 1 on 06/21/2025 , and 1 on 06/22/2025 Plan: Having multiple bowel movements will continue with bowel regimen #Hypernatremia Sodium 06/21/2025 was 147, 06/20/2025 was 146, 06/19/2025 was 147, from previous value of 140 on 06/18/2025 Free water deficit of 1 L if goal is sodium of 143 Plan: Increase free water flushes to 80 cc/h Trend sodium with a.m. labs #Elevated d-dimer D-dimer on admission was 2780. Likely infectious Ultrasound lower extremities did not show any DVTs. Chronic issues: # Hypertension # Hyperlipidemia # Diabetes # Constipation Plan: Carvedilol 3.125 mg twice daily Atorvastatin 40 mg. Degludec 20 units on hold with sliding scale Bisacodyl suppository 10 mg PRN Milk of magnesia 30 mL GT PRN MiraLAX 17 g GT PRN Fleet enema 133 mL SD PRN Disposition: Tele Diet: Tube feeds GI prophylaxis: none DVT prophylaxis: SCDs Code:DNR This case was discussed with my attending physician, Dr. Sevilla, and senior resident, Dr. Gifford. Shaheen Garrett MD-PhD, PGY1 Attending Provider Attestation/Addendum I, Rona Sevilla DO, attest that I was physically present for the taylor portions of the service and evaluated the patient with the resident and I reviewed and discussed the case with the resident and agree with the resident's findings and plans of care as documented above Patient seen and evaluated this AM. Patient noted to have thin secretions surrounding tracheostomy site. No vent changes or acute events overnight. ID consulted, recommends continuing zosyn for pseudomonas pneumonia. S.epi noted in 1/2 blood cultures on two different occasions, suspected to be contamination. Echo pending final read. Zosyn to continue until 06/24. Anticipate DC on Wednesday back to subacute once course of IV abx has completed.
[2025-06-22 12:57] LABS: Basophils # (Auto) 0.0 Thou/mm3 (0.0-0.2); Basophils % (Auto) 1 % (0-2.5); Eosinophils # (Auto) 0.2 Thou/mm3 (0.0-0.5); Eosinophils % (Auto) 3 % (0-10); Hematocrit 31.4 % (41.0-53.0); Hemoglobin 9.8 g/dL (13.5-16.0); Immature Granulocytes Auto 0.02 Thou/mm3 (0.00-0.00); Lymphocytes # (Auto) 0.7 Thou/mm3 (1.0-4.8); Lymphocytes % (Auto) 13 % (10-50); Mean Corpuscular HGB Conc 31.2 g/dl (31.0-37.0); Mean Corpuscular Hemoglobin 28.8 pg (25.0-35.0); Mean Corpuscular Volume 92 fL (80-100); Monocytes # (Auto) 0.5 Thou/mm3 (0.0-0.8); Monocytes % (Auto) 9 % (0-12); Neutrophils # (Auto) 3.7 Thou/mm3 (1.8-7.7); Neutrophils % (Auto) 73 % (37-80); Nucleated Red Blood Cell # 0.00 Thou/mm3 (0.00-0.00); Nucleated Red Blood Cell % 0 /100 WBC (0); Platelet Count 130 Thou/mm3 (140-440); RDW Standard Deviation 59.2 fL (35.1-43.9); Red Blood Count 3.40 Miln/mm3 (4.50-5.90); White Blood Count 5.1 Thou/mm3 (3.8-10.6)
--- NOTE | 2025-06-22 15:11 | PC.SS ---
Rounding Note: Echo read pending. Patient to discharge with IV medication Zosyn, 3x a day. Possible d/c tomorrow to Sub-Acute.
--- NOTE | 2025-06-22 16:04 | PC.SS ---
Updated clinical submitted to Sub-Acute via [facility].
--- NOTE | 2025-06-22 19:35 | PD.IMPROG ---
Documentation for date of: 06/22/25 Subjective Subjective Interval history: Tolerating PEG feedings On Zosyn for Pseudomonas positive culture pneumonia Exam Vital Signs Temp Pulse Resp BP Pulse Ox O2 Del Method FiO2 98.3 F 55 L 19 145/58 H 97 Mechanical Ventilation 30 06/22/25 16:00 06/22/25 17:27 06/22/25 16:00 06/22/25 17:27 06/22/25 16:00 06/22/25 16:00 06/22/25 16:00 Objective Labs 06/22/25 08:15 06/22/25 08:15 Labs: Laboratory Results - last 24 hr 06/21/25 06/22/25 19:07 08:15 WBC 5.1 RBC 3.40 L Hgb 9.8 L Hct 31.4 L MCV 92 MCH 28.8 MCHC 31.2 RDW Std Deviation 59.2 H Plt Count 130 L Neut % (Auto) 73 Lymph % (Auto) 13 [place] % (Auto) 9 Eos % (Auto) 3 Baso % (Auto) 1 Neut # (Auto) 3.7 Lymph # (Auto) 0.7 L [place] # (Auto) 0.5 Eos # (Auto) 0.2 Baso # (Auto) 0.0 Immature Gran # (Auto) 0.02 H Absolute Nucleated RBC 0.00 Immature Gran % 0 Nucleated RBC % 0 Sodium 145 143 Potassium 3.5 Chloride 102 Carbon Dioxide 28.0 Anion Gap 13 BUN 12 Creatinine 0.6 Estim Creat Clear Calc 90.1 eGFR > 60 BUN/Creatinine Ratio 20 Glucose 153 H Calculated Osmolality 287 Calcium 8.3 Corrected Calcium 8.7 Phosphorus 3.1 Magnesium 2.0 Total Bilirubin 0.6 AST 31 ALT 16 Alkaline Phosphatase 70 Total Protein 5.5 L Albumin 3.5 Globulin 2.0 L Albumin/Globulin Ratio 1.8 Impressions Impression: Resolved abdominal distention Stool impaction resolution after GoLytely flush Tolerating PEG feeding Pseudomonas aeruginosa positive sputum culture with pneumonia ABG Interpretation ABG results: 06/17/25 06/17/25 01:48 04:17 ABG pH 7.41 7.38 ABG pCO2 49 H 49 H ABG pO2 121 H 112 H ABG HCO3 31 H 29 H ABG O2 Saturation 100 H 99 H ABG Base Excess 6 H 3 Assessment & Plan A&P Narrative pna on imaging gi issues. hld htn cva dm II likely to do ok with zosyn as that will address the gi issues as well as the pneumonia, today is day 5 o 7d planned. please do not repeat sputum cx as a test of cure as there will be R to zosyn noted ok to finish rx wednesday am and return to subacute at that time if ok. I can see wednesday if he stays in house Time Spent With Patient Time: Total time spent is greater than 50% in coordination of care (as documented) at patient's floor/unit and/or counseling patient:
[2025-06-22] MEDS: ATORVASTATIN CALCIUM 20 MG TABLET 40 MG GT (20:42)
[2025-06-23] VITALS (12 sets, daily range): BP systolic 120–169; BP diastolic 77–92; PULSE 45–79; RESP 20–30; TEMP 35.9–36.9; O2SAT 99–100; BMI 22.3
[2025-06-23] MEDS: ALBUTEROL/IPRATROPIUM (Duoneb) RT SOL 3 ML NEBU INH ×4 (01:08→19:09)
[2025-06-23] MEDS: PIPER/TAZO 3.375 GM PREMIX 3.375 GM/50 ML BAG IV ×3 (05:39→21:05)
[2025-06-23 05:52] LABS: Basophils # (Auto) 0.0 Thou/mm3 (0.0-0.2); Basophils % (Auto) 1 % (0-2.5); Eosinophils # (Auto) 0.3 Thou/mm3 (0.0-0.5); Eosinophils % (Auto) 6 % (0-10); Hematocrit 32.3 % (41.0-53.0); Hemoglobin 10.1 g/dL (13.5-16.0); Immature Granulocytes Auto 0.02 Thou/mm3 (0.00-0.00); Lymphocytes # (Auto) 0.9 Thou/mm3 (1.0-4.8); Lymphocytes % (Auto) 18 % (10-50); Mean Corpuscular HGB Conc 31.3 g/dl (31.0-37.0); Mean Corpuscular Hemoglobin 28.3 pg (25.0-35.0); Mean Corpuscular Volume 91 fL (80-100); Monocytes # (Auto) 0.6 Thou/mm3 (0.0-0.8); Monocytes % (Auto) 11 % (0-12); Neutrophils # (Auto) 3.4 Thou/mm3 (1.8-7.7); Neutrophils % (Auto) 65 % (37-80); Nucleated Red Blood Cell # 0.00 Thou/mm3 (0.00-0.00); Nucleated Red Blood Cell % 0 /100 WBC (0); Platelet Count 124 Thou/mm3 (140-440); RDW Standard Deviation 56.9 fL (35.1-43.9); Red Blood Count 3.57 Miln/mm3 (4.50-5.90); White Blood Count 5.2 Thou/mm3 (3.8-10.6)
[2025-06-23 06:25] LABS: Alanine Aminotransferase 16 U/L (10-49); Albumin, Serum 3.5 gm/dL (3.4-4.8); Albumin/Globulin Ratio 1.7 (1.2-2.2); Alkaline Phosphatase 70 U/L (46-116); Anion Gap 10 (7-16); Aspartate Amino Transferase 24 U/L (0-34); BUN/Creatinine Ratio 16 Ratio (12-20); Bilirubin,Total 0.7 mg/dL (0.3-1.2); Blood Urea Nitrogen 11 mg/dL (9-23); Calcium 8.6 mg/dL (8.3-10.6); Calcium (Corrected) 9.0 mg/dL (8.5-10.1); Carbon Dioxide 30.7 mMol/L (20.0-31.0); Chloride 101 mMol/L (98-107); Creatinine (Component) 0.7 mg/dL (0.6-1.3); Estimated Creatinine Clearance 77.2 mL/min (>60); Globulin 2.1 gm/dL (2.3-3.5); Glucose 132 mg/dL (74-106); Magnesium 2.1 mg/dL (1.6-2.6); Osmolality,Calculated 284 (275-295); Phosphorous 2.8 mg/dL (2.4-5.1); Potassium 3.5 mMol/L (3.4-5.1); Sodium 142 mMol/L (136-145); Total Protein 5.6 gm/dL (5.7-8.2); eGFR > 60 See Note
[2025-06-23] MEDS: Milk Of Magnesia Susp 30 ML UDC GT (08:17)
--- NOTE | 2025-06-23 09:27 | PD.RESPRO ---
Documentation for date of: 06/23/25 Subjective Subjective Interval history: Patient seen and examined at bedside; no acute events overnight. Patient's barron catether has not been changed since admission; trach collar and dressing changed 06/22/25. Exam Vital Signs Temp Pulse Resp BP Pulse Ox O2 Del Method FiO2 97.1 F 61 20 145/79 H 100 Mechanical Ventilation 30 06/23/25 08:00 06/23/25 08:17 06/23/25 08:00 06/23/25 08:17 06/23/25 08:00 06/23/25 08:00 06/23/25 08:00 Narrative Exam General: Unable to assess ANO status secondary to vegetative state, no acute distress, well-nourished, well-developed, PEG tube, barron, and trach present Eyes: Anicteric, unable to assess vision due to vegetative state Ears: No ear pain, no ear discharge, unable to assess hearing due to vegetative state Nose: No nasal discharge. Mouth/Throat: Moist mucous membranes, no redness, no lesions. Neck: Neck supple, non-tender, no cervical lymphadenopathy. Lungs: Mechanical breath sounds bilaterally Cardio: Normal S1/S2, regular rhythm, no murmurs, no JVD or carotid bruits. Abdomen: Tense, non-tender, no palpable masses, peristalsis present, no guarding or rebound. Extremities: Symmetrical, no significant deformities, no peripheral edema , non-tender, peripheral pulses presents. Skin: No rashes, no lesions, warm to touch. Neuro: Unable to assess due to vegetative state Psych: Unable to assess due to vegetative state Objective Labs 06/24/25 05:56 06/24/25 05:56 Labs: Laboratory Results - last 24 hr 06/22/25 06/23/25 08:15 05:25 WBC 5.1 5.2 RBC 3.40 L 3.57 L Hgb 9.8 L 10.1 L Hct 31.4 L 32.3 L MCV 92 91 MCH 28.8 28.3 MCHC 31.2 31.3 RDW Std Deviation 59.2 H 56.9 H Plt Count 130 L 124 L Neut % (Auto) 73 65 Lymph % (Auto) 13 18 [place] % (Auto) 9 11 Eos % (Auto) 3 6 Baso % (Auto) 1 1 Neut # (Auto) 3.7 3.4 Lymph # (Auto) 0.7 L 0.9 L [place] # (Auto) 0.5 0.6 Eos # (Auto) 0.2 0.3 Baso # (Auto) 0.0 0.0 Immature Gran # (Auto) 0.02 H 0.02 H Absolute Nucleated RBC 0.00 0.00 Immature Gran % 0 0 Nucleated RBC % 0 0 Sodium 143 142 Potassium 3.5 3.5 Chloride 102 101 Carbon Dioxide 28.0 30.7 Anion Gap 13 10 BUN 12 11 Creatinine 0.6 0.7 Estim Creat Clear Calc 90.1 77.2 eGFR > 60 > 60 BUN/Creatinine Ratio 20 16 Glucose 153 H 132 H Calculated Osmolality 287 284 Calcium 8.3 8.6 Corrected Calcium 8.7 9.0 Phosphorus 3.1 2.8 Magnesium 2.0 2.1 Total Bilirubin 0.6 0.7 AST 31 24 ALT 16 16 Alkaline Phosphatase 70 70 Total Protein 5.5 L 5.6 L Albumin 3.5 3.5 Globulin 2.0 L 2.1 L Albumin/Globulin Ratio 1.8 1.7 ABG Interpretation ABG results: 06/17/25 06/17/25 01:48 04:17 ABG pH 7.41 7.38 ABG pCO2 49 H 49 H ABG pO2 121 H 112 H ABG HCO3 31 H 29 H ABG O2 Saturation 100 H 99 H ABG Base Excess 6 H 3 Quality Measures Quality Measures none Advance care planning discussed with:: other Assessment & Plan Assessment Current Active Medications: Generic Name Dose Route Start Last Admin Trade Name Freq PRN Reason Stop Dose Admin Acetaminophen 650 mg 06/17/25 03:21 Acetaminophen 325 Mg Tablet PO 07/17/25 03:20 Q6H PRN Fever >101.5 Albuterol/Ipratropium 3 ml 06/22/25 01:00 06/23/25 07:01 Albuterol/Ipratropium (Duoneb) Rt Emma 3 Ml Nebu INH 07/22/25 00:59 3 ml Q6HRRT KURT Administration Atorvastatin Calcium 40 mg 06/17/25 21:00 06/22/25 20:42 Atorvastatin Calcium 20 Mg Tablet GT 07/17/25 20:59 40 mg HS KURT Administration Bisacodyl 10 mg 06/17/25 05:21 Bisacodyl 10 Mg Supp [place] 07/17/25 05:20 QDAY PRN CONSTIPATION Protocol Carvedilol 3.125 mg 06/20/25 08:44 06/23/25 08:17 Carvedilol 3.125 Mg Tablet GT 07/17/25 07:59 3.125 mg BIDWM KURT Administration Dextrose 25 ml 06/17/25 05:26 06/18/25 23:08 Dextrose 50%-Water Inj 50 Ml Syringe IV 07/17/25 05:25 25 ml Q15MIN PRN Administration BG 50-70 responsive npo pt Dextrose 50 ml 06/17/25 05:26 Dextrose 50%-Water Inj 50 Ml Syringe IV 07/17/25 05:25 Q15MIN PRN BG <50 OR BG <70 & pt unresponsive Glucagon 1 mg 06/17/25 05:26 Glucagon Inj 1 Mg Vial IM Q15MIN PRN BG <70, and no IV access Piperacillin/Tazobactam/Dextrose 3.375 gm in 50 mls @ 12.5 mls/hr 06/17/25 14:00 06/23/25 05:39 Zosyn IV 06/24/25 13:59 12.5 mls/hr Q8HR KRUT Administration Protocol Insulin Degludec 20 unit 06/17/25 09:00 06/18/25 08:21 Insulin Degludec 5 Unit/0.05 Ml (Per 5 Units) SC 07/17/25 08:59 Not Given On Hold: 06/18/25 08:25 QDAY KURT Insulin Human Lispro 0 unit 06/18/25 06:00 06/23/25 05:10 Insulin Lispro (Admelog) 1 Unit/0.01 Ml Unit SC 07/18/25 05:59 Not Given Q6HR [facility] Protocol Magnesium Hydroxide 30 ml 06/17/25 09:00 06/23/25 08:17 Milk Of Magnesia Susp 30 Ml Udc GT 07/17/25 08:59 30 ml QDAY KURT Administration Protocol Polyethylene Glycol 17 gm 06/17/25 05:30 Polyethylene Glycol 17 Gm Packet GT 07/17/25 08:59 QDAY PRN CONSTIPATION Protocol Plan Patient is a 85 yr old male with PMH of vegetative state secondary CVA 2019, tracheostomy, PEG tube feed, atrial fibrillation, HTN, HLD and diabetes brought to ED from subacute in view of shortness of breath and admitted on 06/17/25 for possible pneumonia and UTI. #Acute on chronic hypoxic respiratory failure secondary to # Pseudomonas aeruginosa pneumonia # S epidermidis bacteremia pCO2 49, pO2 112, HCO3 31, base excess 6 on admission; chest x-ray and CT abdomen pelvis both show significant pneumonia left base; RR 36 on admission. Initial blood cultures showed GPC which came out to be staph epidermidis Sputum cultures positive for Pseudomonas aeruginosa, sensitive to pip-tazo Blood cultures from 06/18/2025 positive for Staphylococcus epidermidis in 1 out of 2 bottles, sensitive to pip-tazo blood cultures from 06/20/2025 showed no growth at 48 hours Trach collar replaced 06/22/25 Plan: Vancomycin discontinued due to S. epidermidis sensitivities ID consulted, thank you for recommendations?continue pip-tazo until Wednesday a.m. Echo ordered to rule out any vegetations Duonebs q4hr as needed # UTI, Klebsiella pneumonia and Proteus mirabilis Urine culture grow Klebsiella pneumoniae and Proteus mirabilis UA positive for bacteria 4+ and 105 WBC Plan: Continue pip-tazo as above Urine cultures from 06/17/2025 show Klebsiella pneumoniae sensitive to pip-tazo Asked to exchange Barron #ileus CT scan showed air and fluid distended colon; x-ray abdomen showed prominent colonic ileus Abdominal x-ray again showed concerns for ileus Patient had 3 bowel movements 06/20/2025, 1 on 06/21/2025 , and 1 on 06/22/2025 Plan: Having multiple bowel movements will continue with bowel regimen #Hypernatremia Sodium 06/21/2025 was 147, 06/20/2025 was 146, 06/19/2025 was 147, from previous value of 140 on 06/18/2025 Free water deficit of 1 L if goal is sodium of 143 Plan: Increase free water flushes to 80 cc/h Trend sodium with a.m. labs #Elevated d-dimer D-dimer on admission was 2780. Likely infectious Ultrasound lower extremities did not show any DVTs. Chronic issues: # Hypertension # Hyperlipidemia # Diabetes # Constipation Plan: Carvedilol 3.125 mg twice daily Atorvastatin 40 mg. Degludec 20 units on hold with sliding scale Bisacodyl suppository 10 mg PRN Milk of magnesia 30 mL GT PRN MiraLAX 17 g GT PRN Fleet enema 133 mL [place] PRN Disposition: Tele Diet: Tube feeds GI prophylaxis: none DVT prophylaxis: SCDs Code:DNR This case was discussed with my attending physician, Dr. Sevilla, and senior resident, Dr. Gifford. Shaheen Garrett MD-PhD, PGY1 Attending Provider Attestation/Addendum Rona Fisher DO, attest that I was physically present for the taylor portions of the service and evaluated the patient with the resident and I reviewed and discussed the case with the resident and agree with the resident's findings and plans of care as documented above Patient seen and evaluated this AM. Patient remains on IV zosyn for UTI and pneumonia. He is to complete IV zosyn tomorrow. Bcx noted to grow GPC after 48h, suspect contamination. Patient has otherwise been stable. Will switch barron catheter due to UTI. No acute events overnight. Patient continues to be on the same vent settings. Anticipate dc back to subacute within next 48h
--- NOTE | 2025-06-23 15:14 | PC.SS ---
Rounding note: Patient will complete antibiotic treatment tomorrow, ready for d/c on Wednesday.
--- NOTE | 2025-06-23 18:34 | PD.IMPROG ---
Documentation for date of: 06/23/25 Subjective Subjective Interval history: Tolerating PEG feeding Abdominal distention is almost disappeared Good bowel sounds on examination Exam Vital Signs Temp Pulse Resp BP Pulse Ox O2 Del Method FiO2 96.6 F L 56 L 24 H 141/80 H 100 Mechanical Ventilation 30 06/23/25 16:00 06/23/25 17:38 06/23/25 16:00 06/23/25 17:38 06/23/25 16:00 06/23/25 16:00 06/23/25 16:00 Objective Labs 06/23/25 05:25 06/23/25 05:25 Labs: Laboratory Results - last 24 hr 06/23/25 05:25 WBC 5.2 RBC 3.57 L Hgb 10.1 L Hct 32.3 L MCV 91 MCH 28.3 MCHC 31.3 RDW Std Deviation 56.9 H Plt Count 124 L Neut % (Auto) 65 Lymph % (Auto) 18 [place] % (Auto) 11 Eos % (Auto) 6 Baso % (Auto) 1 Neut # (Auto) 3.4 Lymph # (Auto) 0.9 L [place] # (Auto) 0.6 Eos # (Auto) 0.3 Baso # (Auto) 0.0 Immature Gran # (Auto) 0.02 H Absolute Nucleated RBC 0.00 Immature Gran % 0 Nucleated RBC % 0 Sodium 142 Potassium 3.5 Chloride 101 Carbon Dioxide 30.7 Anion Gap 10 BUN 11 Creatinine 0.7 Estim Creat Clear Calc 77.2 eGFR > 60 BUN/Creatinine Ratio 16 Glucose 132 H Calculated Osmolality 284 Calcium 8.6 Corrected Calcium 9.0 Phosphorus 2.8 Magnesium 2.1 Total Bilirubin 0.7 AST 24 ALT 16 Alkaline Phosphatase 70 Total Protein 5.6 L Albumin 3.5 Globulin 2.1 L Albumin/Globulin Ratio 1.7 Impressions Impression: # Colonic distention resolved Which was due to stool impaction # Tolerating PEG feeding ABG Interpretation ABG results: 06/17/25 06/17/25 01:48 04:17 ABG pH 7.41 7.38 ABG pCO2 49 H 49 H ABG pO2 121 H 112 H ABG HCO3 31 H 29 H ABG O2 Saturation 100 H 99 H ABG Base Excess 6 H 3 Assessment & Plan A&P Narrative pna on imaging gi issues. hld htn cva dm II likely to do ok with zosyn as that will address the gi issues as well as the pneumonia, today is day 5 o 7d planned. please do not repeat sputum cx as a test of cure as there will be R to leonie noted ok to finish rx wednesday am and return to subacute at that time if ok. I can see wednesday if he stays in house Time Spent With Patient Time: Total time spent is greater than 50% in coordination of care (as documented) at patient's floor/unit and/or counseling patient:
[2025-06-23] MEDS: ATORVASTATIN CALCIUM 20 MG TABLET 40 MG GT (21:05)
[2025-06-24] VITALS (13 sets, daily range): BP systolic 134–176; BP diastolic 64–89; PULSE 45–110; RESP 20–28; TEMP 35.8–36.8; O2SAT 98–100; BMI 22.3
[2025-06-24] MEDS: ALBUTEROL/IPRATROPIUM (Duoneb) RT SOL 3 ML NEBU INH ×4 (00:03→19:35)
[2025-06-24] MEDS: PIPER/TAZO 3.375 GM PREMIX 3.375 GM/50 ML BAG IV (05:20)
[2025-06-24 06:21] LABS: Basophils # (Auto) 0.0 Thou/mm3 (0.0-0.2); Basophils % (Auto) 1 % (0-2.5); Eosinophils # (Auto) 0.2 Thou/mm3 (0.0-0.5); Eosinophils % (Auto) 5 % (0-10); Hematocrit 32.2 % (41.0-53.0); Hemoglobin 10.0 g/dL (13.5-16.0); Immature Granulocytes Auto 0.02 Thou/mm3 (0.00-0.00); Lymphocytes # (Auto) 1.0 Thou/mm3 (1.0-4.8); Lymphocytes % (Auto) 21 % (10-50); Mean Corpuscular HGB Conc 31.1 g/dl (31.0-37.0); Mean Corpuscular Hemoglobin 28.5 pg (25.0-35.0); Mean Corpuscular Volume 92 fL (80-100); Monocytes # (Auto) 0.6 Thou/mm3 (0.0-0.8); Monocytes % (Auto) 13 % (0-12); Neutrophils # (Auto) 2.9 Thou/mm3 (1.8-7.7); Neutrophils % (Auto) 61 % (37-80); Nucleated Red Blood Cell # 0.00 Thou/mm3 (0.00-0.00); Nucleated Red Blood Cell % 0 /100 WBC (0); Platelet Count 123 Thou/mm3 (140-440); RDW Standard Deviation 56.9 fL (35.1-43.9); Red Blood Count 3.51 Miln/mm3 (4.50-5.90); White Blood Count 4.8 Thou/mm3 (3.8-10.6)
[2025-06-24 06:50] LABS: Alanine Aminotransferase 15 U/L (10-49); Albumin, Serum 3.7 gm/dL (3.4-4.8); Albumin/Globulin Ratio 1.6 (1.2-2.2); Alkaline Phosphatase 72 U/L (46-116); Anion Gap 11 (7-16); Aspartate Amino Transferase 21 U/L (0-34); BUN/Creatinine Ratio 9 Ratio (12-20); Bilirubin,Total 0.6 mg/dL (0.3-1.2); Blood Urea Nitrogen 7 mg/dL (9-23); Calcium 8.9 mg/dL (8.3-10.6); Calcium (Corrected) 9.1 mg/dL (8.5-10.1); Carbon Dioxide 29.4 mMol/L (20.0-31.0); Chloride 101 mMol/L (98-107); Creatinine (Component) 0.8 mg/dL (0.6-1.3); Estimated Creatinine Clearance 67.6 mL/min (>60); Globulin 2.3 gm/dL (2.3-3.5); Glucose 133 mg/dL (74-106); Magnesium 2.1 mg/dL (1.6-2.6); Osmolality,Calculated 281 (275-295); Phosphorous 2.8 mg/dL (2.4-5.1); Potassium 3.7 mMol/L (3.4-5.1); Sodium 141 mMol/L (136-145); Total Protein 6.0 gm/dL (5.7-8.2); eGFR > 60 See Note
[2025-06-24] MEDS: Milk Of Magnesia Susp 30 ML UDC GT (08:56)
[2025-06-24] MEDS: INSULIN LISPRO (AdmeLOG) 1 UNIT/0.01 ML UNIT SC (12:26)
--- NOTE | 2025-06-24 14:21 | ESPR_ITS ---
<Statement entered by Shankar Smiley MD - 06/24/25 14:58> I have reviewed the note and agree with the resident's assessment & plan with exceptions as below. I have personally reviewed labs, imaging, home meds/prior records, examined the patient, formulated and discussed management plan with my attending Patient was seen and examined at bedside this morning. No acute overnight events. Patient again grew GPC's in 1 out of 2 bottles culture, but GPC's grew 48 hours after blood cultures were negative. Given this is this most likely a contaminant, will discuss with infectious disease and will likely discharge in the next 24 to 48 hours. Otherwise no new complaints at this time. Shankar Smiley PGY2 Disclaimer: Even though this this note was dictated by speech recognition and even though it was carefully revised there may still be minor errors in store administrative assistant due to voice recognition software. Documentation for date of: 06/24/25 Subjective Subjective Interval history: Patient is seen and examined this morning; no acute events overnight. Spoke with Dr Lala, who said that 1 out of 2 positive bottles for GPC is most likely a contact eminent since it is growth after 48 hours. Most likely discharge tomorrow back to facility. Exam Vital Signs Temp Pulse Resp BP Pulse Ox O2 Del Method FiO2 96.6 F L 55 L 24 H 137/72 H 100 Mechanical Ventilation 30 06/24/25 12:00 06/24/25 13:15 06/24/25 13:15 06/24/25 12:00 06/24/25 13:15 06/24/25 12:00 06/24/25 13:15 Narrative Exam General: Unable to assess ANO status secondary to vegetative state, no acute distress, well-nourished, well-developed, PEG tube, barron, and trach present Eyes: Anicteric, unable to assess vision due to vegetative state Ears: No ear pain, no ear discharge, unable to assess hearing due to vegetative state Nose: No nasal discharge. Mouth/Throat: Moist mucous membranes, no redness, no lesions. Neck: Neck supple, non-tender, no cervical lymphadenopathy. Lungs: Mechanical breath sounds bilaterally Cardio: Normal S1/S2, regular rhythm, no murmurs, no JVD or carotid bruits. Abdomen: Tense, non-tender, no palpable masses, peristalsis present, no guarding or rebound. Extremities: Symmetrical, no significant deformities, no peripheral edema , non-tender, peripheral pulses presents. Skin: No rashes, no lesions, warm to touch. Neuro: Unable to assess due to vegetative state Psych: Unable to assess due to vegetative state Objective Labs 06/25/25 07:39 06/25/25 07:39 Labs: Laboratory Results - last 24 hr 06/24/25 05:56 WBC 4.8 RBC 3.51 L Hgb 10.0 L Hct 32.2 L MCV 92 MCH 28.5 MCHC 31.1 RDW Std Deviation 56.9 H Plt Count 123 L Neut % (Auto) 61 Lymph % (Auto) 21 [place] % (Auto) 13 H Eos % (Auto) 5 Baso % (Auto) 1 Neut # (Auto) 2.9 Lymph # (Auto) 1.0 [place] # (Auto) 0.6 Eos # (Auto) 0.2 Baso # (Auto) 0.0 Immature Gran # (Auto) 0.02 H Absolute Nucleated RBC 0.00 Immature Gran % 0 Nucleated RBC % 0 Sodium 141 Potassium 3.7 Chloride 101 Carbon Dioxide 29.4 Anion Gap 11 BUN 7 L Creatinine 0.8 Estim Creat Clear Calc 67.6 eGFR > 60 BUN/Creatinine Ratio 9 L Glucose 133 H Calculated Osmolality 281 Calcium 8.9 Corrected Calcium 9.1 Phosphorus 2.8 Magnesium 2.1 Total Bilirubin 0.6 AST 21 ALT 15 Alkaline Phosphatase 72 Total Protein 6.0 Albumin 3.7 Globulin 2.3 Albumin/Globulin Ratio 1.6 ABG Interpretation ABG results: 06/17/25 06/17/25 01:48 04:17 ABG pH 7.41 7.38 ABG pCO2 49 H 49 H ABG pO2 121 H 112 H ABG HCO3 31 H 29 H ABG O2 Saturation 100 H 99 H ABG Base Excess 6 H 3 Quality Measures Quality Measures none Advance care planning discussed with:: other Assessment & Plan Assessment Current Active Medications: Generic Name Dose Route Start Last Admin Trade Name Freq PRN Reason Stop Dose Admin Acetaminophen 650 mg 06/17/25 03:21 Acetaminophen 325 Mg Tablet PO 07/17/25 03:20 Q6H PRN Fever >101.5 Albuterol/Ipratropium 3 ml 06/22/25 01:00 06/24/25 13:14 Albuterol/Ipratropium (Duoneb) Rt Emma 3 Ml Nebu INH 07/22/25 00:59 3 ml Q6HRRT KURT Administration Atorvastatin Calcium 40 mg 06/17/25 21:00 06/23/25 21:05 Atorvastatin Calcium 20 Mg Tablet GT 07/17/25 20:59 40 mg HS KURT Administration Bisacodyl 10 mg 06/17/25 05:21 Bisacodyl 10 Mg Supp IL 07/17/25 05:20 QDAY PRN CONSTIPATION Protocol Carvedilol 3.125 mg 06/20/25 08:44 06/24/25 08:56 Carvedilol 3.125 Mg Tablet GT 07/17/25 07:59 3.125 mg BIDWM KURT Administration Dextrose 25 ml 06/17/25 05:26 06/18/25 23:08 Dextrose 50%-Water Inj 50 Ml Syringe IV 07/17/25 05:25 25 ml Q15MIN PRN Administration BG 50-70 responsive npo pt Dextrose 50 ml 06/17/25 05:26 Dextrose 50%-Water Inj 50 Ml Syringe IV 07/17/25 05:25 Q15MIN PRN BG <50 OR BG <70 & pt unresponsive Glucagon 1 mg 06/17/25 05:26 Glucagon Inj 1 Mg Vial IM Q15MIN PRN BG <70, and no IV access Insulin Degludec 20 unit 06/17/25 09:00 06/18/25 08:21 Insulin Degludec 5 Unit/0.05 Ml (Per 5 Units) SC 07/17/25 08:59 Not Given On Hold: 06/18/25 08:25 QDAY [facility] [place] Insulin Human Lispro 0 unit 06/18/25 06:00 06/24/25 12:26 Insulin Lispro (Admelog) 1 Unit/0.01 Ml Unit SC 07/18/25 05:59 1 unit Q6HR KURT Administration Protocol Magnesium Hydroxide 30 ml 06/17/25 09:00 06/24/25 08:56 Milk Of Magnesia Susp 30 Ml Udc GT 07/17/25 08:59 30 ml QDAY KURT Administration Protocol Polyethylene Glycol 17 gm 06/17/25 05:30 Polyethylene Glycol 17 Gm Packet GT 07/17/25 08:59 QDAY PRN CONSTIPATION Protocol Plan Patient is a 85 yr old male with PMH of vegetative state secondary CVA 2019, tracheostomy, PEG tube feed, atrial fibrillation, HTN, HLD and diabetes brought to ED from subacute in view of shortness of breath and admitted on 06/17/25 for possible pneumonia and UTI. #Acute on chronic hypoxic respiratory failure secondary to # Pseudomonas aeruginosa pneumonia # S epidermidis bacteremia pCO2 49, pO2 112, HCO3 31, base excess 6 on admission; chest x-ray and CT abdomen pelvis both show significant pneumonia left base; RR 36 on admission. Initial blood cultures showed GPC which came out to be staph epidermidis Sputum cultures positive for Pseudomonas aeruginosa, sensitive to pip-tazo Blood cultures from 06/18/2025 positive for Staphylococcus epidermidis in 1 out of 2 bottles, sensitive to pip-tazo blood cultures from 06/20/2025 showed no growth at 48 hours Trach collar replaced 06/22/25 Spoke with infectious disease today, they stated that the GPC's seen on 1 out of 2 bottles of the latest blood culture are most likely contaminants. Echo shows no obvious vegetations Plan: Vancomycin discontinued due to S. epidermidis sensitivities ID consulted, thank you for recommendations?pip-tazo completed on 06/24/25. Duonebs q4hr as needed # UTI, Klebsiella pneumonia and Proteus mirabilis Urine culture grow Klebsiella pneumoniae and Proteus mirabilis UA positive for bacteria 4+ and 105 WBC Plan: Pip-tazo completed on 06/24/25 Urine cultures from 06/17/2025 show Klebsiella pneumoniae sensitive to pip-tazo Barron exchanged #ileus CT scan showed air and fluid distended colon; x-ray abdomen showed prominent colonic ileus Abdominal x-ray again showed concerns for ileus Patient had 3 bowel movements 06/20/2025, 1 on 06/21/2025 , 2 on 06/22/2025, 3 on 06/23/2025, and 1 on 06/24/2025. Plan: Having multiple bowel movements will continue with bowel regimen #Hypernatremia Sodium 06/21/2025 was 147, 06/20/2025 was 146, 06/19/2025 was 147, from previous value of 140 on 06/18/2025 Free water deficit of 1 L if goal is sodium of 143 Plan: Free water flushes 40 cc/h Trend sodium with a.m. labs #Elevated d-dimer D-dimer on admission was 2780. Likely infectious Ultrasound lower extremities did not show any DVTs. Chronic issues: # Hypertension # Hyperlipidemia # Diabetes # Constipation Plan: Carvedilol 3.125 mg twice daily Atorvastatin 40 mg. Degludec 20 units on hold with sliding scale Bisacodyl suppository 10 mg PRN Milk of magnesia 30 mL GT PRN MiraLAX 17 g GT PRN Fleet enema 133 mL [place] PRN Disposition: Tele Diet: Tube feeds GI prophylaxis: none DVT prophylaxis: SCDs Code:DNR This case was discussed with my attending physician, Dr. Sevilla, and senior resident, Dr. Uriostegui. Shaheen Garrett MD-PhD, PGY1 Attending Provider Attestation/Addendum I, Rona Sevilla, DO, attest that I was physically present for the taylor portions of the service and evaluated the patient with the resident and I reviewed and discussed the case with the resident and agree with the resident's findings and plans of care as documented above Pt seen and evaluated this AM. Patient to complete IV abx. Bcx 1 out of 2 positive for GPC, suspect contamination. Patient has otherwise been afebrile. He is to complete IV zosyn today. Noted to have hematuria. Per nursing, hematuria developed overnight due to tension of barron cathter over patient's leg. However, no clots noted. Urine output is blood tinged. Advised nursing staff to flush barron port manually if not draining. Will follow up with ID recommendations regarding s.epi noted on bcx.
--- NOTE | 2025-06-24 18:32 | ESPR_ITS ---
Documentation for date of: 06/24/25 Subjective Subjective Interval history: Patient evaluated Tolerating PEG feeding Abdomen is not distended Exam Vital Signs Temp Pulse Resp BP Pulse Ox O2 Del Method FiO2 97.0 F 55 L 23 H 134/64 H 100 Mechanical Ventilation 30 06/24/25 16:00 06/24/25 17:11 06/24/25 16:00 06/24/25 17:11 06/24/25 16:00 06/24/25 16:00 06/24/25 16:00 Objective Labs 06/24/25 05:56 06/24/25 05:56 Labs: Laboratory Results - last 24 hr 06/24/25 05:56 WBC 4.8 RBC 3.51 L Hgb 10.0 L Hct 32.2 L MCV 92 MCH 28.5 MCHC 31.1 RDW Std Deviation 56.9 H Plt Count 123 L Neut % (Auto) 61 Lymph % (Auto) 21 [place] % (Auto) 13 H Eos % (Auto) 5 Baso % (Auto) 1 Neut # (Auto) 2.9 Lymph # (Auto) 1.0 [place] # (Auto) 0.6 Eos # (Auto) 0.2 Baso # (Auto) 0.0 Immature Gran # (Auto) 0.02 H Absolute Nucleated RBC 0.00 Immature Gran % 0 Nucleated RBC % 0 Sodium 141 Potassium 3.7 Chloride 101 Carbon Dioxide 29.4 Anion Gap 11 BUN 7 L Creatinine 0.8 Estim Creat Clear Calc 67.6 eGFR > 60 BUN/Creatinine Ratio 9 L Glucose 133 H Calculated Osmolality 281 Calcium 8.9 Corrected Calcium 9.1 Phosphorus 2.8 Magnesium 2.1 Total Bilirubin 0.6 AST 21 ALT 15 Alkaline Phosphatase 72 Total Protein 6.0 Albumin 3.7 Globulin 2.3 Albumin/Globulin Ratio 1.6 Impressions Impression: Resolved abdominal distention Tolerating PEG feeding ABG Interpretation ABG results: 06/17/25 06/17/25 01:48 04:17 ABG pH 7.41 7.38 ABG pCO2 49 H 49 H ABG pO2 121 H 112 H ABG HCO3 31 H 29 H ABG O2 Saturation 100 H 99 H ABG Base Excess 6 H 3 Assessment & Plan A&P Narrative pna on imaging gi issues. hld htn cva dm II likely to do ok with zosyn as that will address the gi issues as well as the pneumonia, today is day 5 o 7d planned. please do not repeat sputum cx as a test of cure as there will be R to leonie noted ok to finish rx wednesday am and return to subacute at that time if ok. I can see wednesday if he stays in house Time Spent With Patient Time: Total time spent is greater than 50% in coordination of care (as documented) at patient's floor/unit and/or counseling patient:
[2025-06-24] MEDS: ATORVASTATIN CALCIUM 20 MG TABLET 40 MG GT (20:08)
[2025-06-24 21:30] LABS: Hepatitis C Antibody Non Reactive (Non React)
[2025-06-25] VITALS (8 sets, daily range): BP systolic 139–167; BP diastolic 74–88; PULSE 47–74; RESP 16–27; TEMP 36.2–36.8; O2SAT 97–100; BMI 22.3
[2025-06-25] MEDS: ALBUTEROL/IPRATROPIUM (Duoneb) RT SOL 3 ML NEBU INH ×3 (00:27→13:25)
[2025-06-25 08:06] LABS: Basophils # (Auto) 0.0 Thou/mm3 (0.0-0.2); Basophils % (Auto) 0 % (0-2.5); Eosinophils # (Auto) 0.2 Thou/mm3 (0.0-0.5); Eosinophils % (Auto) 4 % (0-10); Hematocrit 35.7 % (41.0-53.0); Hemoglobin 11.1 g/dL (13.5-16.0); Immature Granulocytes Auto 0.03 Thou/mm3 (0.00-0.00); Lymphocytes # (Auto) 1.1 Thou/mm3 (1.0-4.8); Lymphocytes % (Auto) 20 % (10-50); Mean Corpuscular HGB Conc 31.1 g/dl (31.0-37.0); Mean Corpuscular Hemoglobin 28.6 pg (25.0-35.0); Mean Corpuscular Volume 92 fL (80-100); Monocytes # (Auto) 0.7 Thou/mm3 (0.0-0.8); Monocytes % (Auto) 13 % (0-12); Neutrophils # (Auto) 3.2 Thou/mm3 (1.8-7.7); Neutrophils % (Auto) 62 % (37-80); Nucleated Red Blood Cell # 0.00 Thou/mm3 (0.00-0.00); Nucleated Red Blood Cell % 0 /100 WBC (0); Platelet Count 123 Thou/mm3 (140-440); RDW Standard Deviation 56.4 fL (35.1-43.9); Red Blood Count 3.88 Miln/mm3 (4.50-5.90); White Blood Count 5.2 Thou/mm3 (3.8-10.6)
[2025-06-25 08:18] LABS: Alanine Aminotransferase 18 U/L (10-49); Albumin, Serum 3.9 gm/dL (3.4-4.8); Albumin/Globulin Ratio 1.8 (1.2-2.2); Alkaline Phosphatase 78 U/L (46-116); Anion Gap 12 (7-16); Aspartate Amino Transferase 22 U/L (0-34); BUN/Creatinine Ratio 20 Ratio (12-20); Bilirubin,Total 0.5 mg/dL (0.3-1.2); Blood Urea Nitrogen 12 mg/dL (9-23); Calcium 8.9 mg/dL (8.3-10.6); Calcium (Corrected) 9.0 mg/dL (8.5-10.1); Carbon Dioxide 31.4 mMol/L (20.0-31.0); Chloride 102 mMol/L (98-107); Creatinine (Component) 0.6 mg/dL (0.6-1.3); Estimated Creatinine Clearance 90.1 mL/min (>60); Globulin 2.2 gm/dL (2.3-3.5); Glucose 128 mg/dL (74-106); Osmolality,Calculated 290 (275-295); Potassium 3.7 mMol/L (3.4-5.1); Sodium 145 mMol/L (136-145); Total Protein 6.1 gm/dL (5.7-8.2); eGFR > 60 See Note
--- NOTE | 2025-06-25 09:12 | PC.SS ---
Update: Pending I&R recommendations. Possible d/c to Sub-Acute today.
--- NOTE | 2025-06-25 09:18 | PD.IDPROG ---
Subjective Subjective Interval history: abx completed, still here though Exam Vital Signs Temp Pulse Resp BP Pulse Ox O2 Del Method FiO2 97.5 F 50 L 16 166/82 H 100 Mechanical Ventilation 30 06/25/25 08:00 06/25/25 08:55 06/25/25 08:00 06/25/25 08:55 06/25/25 08:00 06/25/25 08:00 06/25/25 08:00 Objective - Internal Medicine Labs 06/25/25 07:39 06/25/25 07:39 Labs: Laboratory Results - last 24 hr 06/23/25 06/25/25 05:25 07:39 WBC 5.2 RBC 3.88 L Hgb 11.1 L Hct 35.7 L MCV 92 MCH 28.6 MCHC 31.1 RDW Std Deviation 56.4 H Plt Count 123 L Neut % (Auto) 62 Lymph % (Auto) 20 [place] % (Auto) 13 H Eos % (Auto) 4 Baso % (Auto) 0 Neut # (Auto) 3.2 Lymph # (Auto) 1.1 [place] # (Auto) 0.7 Eos # (Auto) 0.2 Baso # (Auto) 0.0 Immature Gran # (Auto) 0.03 H Absolute Nucleated RBC 0.00 Immature Gran % 1 H Nucleated RBC % 0 Sodium 145 Potassium 3.7 Chloride 102 Carbon Dioxide 31.4 H Anion Gap 12 BUN 12 Creatinine 0.6 Estim Creat Clear Calc 90.1 eGFR > 60 BUN/Creatinine Ratio 20 Glucose 128 H Calculated Osmolality 290 Calcium 8.9 Corrected Calcium 9.0 Total Bilirubin 0.5 AST 22 ALT 18 Alkaline Phosphatase 78 Total Protein 6.1 Albumin 3.9 Globulin 2.2 L Albumin/Globulin Ratio 1.8 Hepatitis C Antibody Non Reactive ABG Interpretation ABG results: 06/17/25 06/17/25 01:48 04:17 ABG pH 7.41 7.38 ABG pCO2 49 H 49 H ABG pO2 121 H 112 H ABG HCO3 31 H 29 H ABG O2 Saturation 100 H 99 H ABG Base Excess 6 H 3 Assessment & Plan A&P Narrative pna per imaging gi issues. hld htn cva dm II likely to do ok with zosyn as that will address the gi issues as well as the pneumonia, ok to finish rx wednesday am and return to subacute at that time if ok. no more cx please. the coag negs are likely contaminants Time Spent With Patient Time: Total time spent is greater than 50% in coordination of care (as documented) at patient's floor/unit and/or counseling patient:
--- NOTE | 2025-06-25 09:20 | PD.IDPROG ---
Subjective Subjective Interval history: bc repeated and single pos with coag neg staph noted. likely a contaminant. Exam Vital Signs Temp Pulse Resp BP Pulse Ox O2 Del Method FiO2 97.5 F 50 L 16 166/82 H 100 Mechanical Ventilation 30 06/25/25 08:00 06/25/25 08:55 06/25/25 08:00 06/25/25 08:55 06/25/25 08:00 06/25/25 08:00 06/25/25 08:00 Narrative Exam on 30% O2 on vent. so cxr changes of uncertain clinical significance. not interactive will see again prn Objective - Internal Medicine Labs 06/25/25 07:39 06/25/25 07:39 Labs: Laboratory Results - last 24 hr 06/23/25 06/25/25 05:25 07:39 WBC 5.2 RBC 3.88 L Hgb 11.1 L Hct 35.7 L MCV 92 MCH 28.6 MCHC 31.1 RDW Std Deviation 56.4 H Plt Count 123 L Neut % (Auto) 62 Lymph % (Auto) 20 [place] % (Auto) 13 H Eos % (Auto) 4 Baso % (Auto) 0 Neut # (Auto) 3.2 Lymph # (Auto) 1.1 [place] # (Auto) 0.7 Eos # (Auto) 0.2 Baso # (Auto) 0.0 Immature Gran # (Auto) 0.03 H Absolute Nucleated RBC 0.00 Immature Gran % 1 H Nucleated RBC % 0 Sodium 145 Potassium 3.7 Chloride 102 Carbon Dioxide 31.4 H Anion Gap 12 BUN 12 Creatinine 0.6 Estim Creat Clear Calc 90.1 eGFR > 60 BUN/Creatinine Ratio 20 Glucose 128 H Calculated Osmolality 290 Calcium 8.9 Corrected Calcium 9.0 Total Bilirubin 0.5 AST 22 ALT 18 Alkaline Phosphatase 78 Total Protein 6.1 Albumin 3.9 Globulin 2.2 L Albumin/Globulin Ratio 1.8 Hepatitis C Antibody Non Reactive ABG Interpretation ABG results: 06/17/25 06/17/25 01:48 04:17 ABG pH 7.41 7.38 ABG pCO2 49 H 49 H ABG pO2 121 H 112 H ABG HCO3 31 H 29 H ABG O2 Saturation 100 H 99 H ABG Base Excess 6 H 3 Assessment & Plan A&P Narrative pna per imaging gi issues. hld htn cva dm II likely to do ok with zosyn as that will address the gi issues as well as the pneumonia,ok to repeat cxr in 4-6 weeks to document responseI will see again prn. ok to return to subacute at this time. please do not repeat any more cx. Time Spent With Patient Time: Total time spent is greater than 50% in coordination of care (as documented) at patient's floor/unit and/or counseling patient:
--- NOTE | 2025-06-25 09:27 | PC.SS ---
Addendum entered and electronically signed by SUNI Yin 06/25/25 11:20: SUNI received phone call from Sub-Acute staff stating that the patient will require a PASSR if discharged today. Original Note: SUNI confirmed with Sub-Acute staff that if patient is discharged back to Sub-Acute today will not require PASSR. If patient discharges back to Sub-Acute tomorrow will need PASSR completed.
[2025-06-25] MEDS: Milk Of Magnesia Susp 30 ML UDC GT (09:32)
--- NOTE | 2025-06-25 10:44 | ESDS_ITS ---
<Statement entered by Rona Sevilla DO - 06/26/25 13:56> I, Rona Sevilla DO, attest that I was physically present for the taylor portions of the service and evaluated the patient with the resident and I reviewed and discussed the case with the resident and agree with the resident's findings and plans of care as documented above <Statement entered by Shankar Smiley MD - 06/25/25 17:19> I have reviewed the note and agree with the resident's assessment & plan with exceptions as below. I have personally reviewed labs, imaging, home meds/prior records, examined the patient, formulated and discussed management plan with my attending Shankar Smiley PGY2 Disclaimer: Even though this this note was dictated by speech recognition and even though it was carefully revised there may still be minor errors in whiting machine operator due to voice recognition software. Planned Discharge Date 06/25/25 DS: Providers Provider Date of admission: 06/17/25 03:18 Primary care physician: Physician No Primary/Family Admitting Provider: Curtis Loredo MD Attending Provider on Admission: Rona Sevilla DO Consults: 06/17/25 06:48 Consult to Gastroenterology Stat Comment: Consulting Provider: Abby Espinal 06/22/25 07:49 Consult to Infectious Diseases Routine Comment: Consulting Provider: Noe Lala Attending Provider on DC: Rona Sevilla DO Discharging Provider: Rona Sevilla DO DS: Diagnosis Problem List Completed Was Problem List Reviewed/Reconciled?: Yes Hospital Course Hospital Course Hospital course: Hospital Course: Patient is a 85 yr old male with PMH of vegetative state secondary CVA 2019, tracheostomy, PEG tube feed, atrial fibrillation, HTN, HLD and diabetes brought to ED on 06/17/25 from subacute for shortness of breath; CT chest showed L lower lobe opacities, CT suggestive of partial large bowel obstruction versus ileus. ED labs showed Hgb 11.7, ESR 36, D-dimer 2780, pCO2 49, pO2 112, HCO3 29, glucose 137, CRP 4.9, BNP 135. UA was nitrate positive, leukocyte esterase positive, turbid looking, bacteria 4+, blood 2+. He was admitted on 06/17/25 for possible pneumonia and UTI, and he was started on Vanco and Zosyn. On 06/18/2025, GPC resembling staph seen 1 out of 2 bottles and Vanco and Zosyn were continued; GI was consulted for potential SBO, mentioned continued suctioning and if there was no output initiate GoLytely to flush out his colon. On 06/19/2025, patient had bowel movements, but they were loose most likely has overflow diarrhea at this point; we also repeated blood cultures as there are gram-positive cocci in the pneumocephalus at that time. On 06/20/2025, repeat abdominal x-ray showed moderate colonic ileus; ultrasound of the lower extremi ties showed no DVTs. On 06/21/2025, the second set of blood cultures showed no growth but the first showed Staph epidermidis and sputum grew Pseudomonas; thus we continued Zosyn because it is an antibiotic that organisms are sensitive to. We increased free water flushes due to hypernatremia. On 06/22/2025, ID was consulted and we are continuing Zosyn for antibiotic coverage; and respiratory therapy was called to replace his trach. On 06/23/2025, replaced patient Barron catheter as that had not been changed since admission, patient had some blood tinged urine, but upon discharge urine had cleared. On 06/24/2025, Staph epidermidis again grew in 1 out of 2 culture bottles but since they grew after 48 hours it is most likely contaminant. On 06/25/2025, patient had completed all antibiotics and was considered stable for discharge back to SN[facility]. Discharge Instructions: Please follow-up with primary care physician within 2 or 3 days upon discharge Please repeat a chest x-ray in 4 to 6 weeks to monitor pneumonia. Recommend proper hydration. Please continue taking all home medications as prescribed Please come back to the ED if symptoms persist or worsen. Problem List: #Acute on chronic hypoxic respiratory failure secondary to # Pseudomonas aeruginosa pneumonia # S epidermidis bacteremia # UTI, Klebsiella pneumonia and Proteus mirabilis #ileus #Hematuria, resolved #Hypernatremia #Elevated d-dimer # Hypertension # Hyperlipidemia # Diabetes # Constipation Status at Discharge Functional status at discharge: bed bound Overall status at discharge: patient is progressing back to baseline Time Spent with Patient Time attestation: Total time spent providing and/or coordinating discharge services: Time spent: Greater than 30 minutes Exam Vital Signs Temp Pulse Resp BP Pulse Ox O2 Del Method FiO2 97.5 F 50 L 16 166/82 H 100 Mechanical Ventilation 30 06/25/25 08:00 06/25/25 08:55 06/25/25 08:00 06/25/25 08:55 06/25/25 08:00 06/25/25 08:00 06/25/25 08:00 Narrative Exam General: Unable to assess ANO status secondary to vegetative state, no acute distress, well-nourished, well-developed, PEG tube, barron, and trach present Eyes: Anicteric, unable to assess vision due to vegetative state Ears: No ear pain, no ear discharge, unable to assess hearing due to vegetative state Nose: No nasal discharge. Mouth/Throat: Moist mucous membranes, no redness, no lesions. Neck: Neck supple, non-tender, no cervical lymphadenopathy. Lungs: Mechanical breath sounds bilaterally Cardio: Normal S1/S2, regular rhythm, no murmurs, no JVD or carotid bruits. Abdomen: Tense, non-tender, no palpable masses, peristalsis present, no guarding or rebound. Extremities: Symmetrical, no significant deformities, no peripheral edema , non-tender, peripheral pulses presents; urine now straw colored from yesterday's hematuria Skin: No rashes, no lesions, warm to touch. Neuro: Unable to assess due to vegetative state Psych: Unable to assess due to vegetative state Discharge Plan Plan Patient Disposition: Xfer Zoning Administrator Acute Care Plan Goals: Please follow-up with primary care physician within 2 or 3 days upon discharge Please repeat a chest x-ray in 4 to 6 weeks to monitor pneumonia. Recommend proper hydration. Please continue taking all home medications as prescribed Please come back to the ED if symptoms persist or worsen. Prescriptions/Referrals Prescriptions/Med Rec: Discontinued Ear Wax Removal Drops 6.5 % drops 5 drp otic (ear) Q61D 284 Days Qty: 15 11RF Label Comments: 5 drops per ear at first med pass of shift. Then irrigate ears with NS at next med pass of each shift x 4 days for wax build up. Ear Wax Removal Drops 6.5 % drops 5 drp otic (ear) Q61D 284 Days Qty: 15 11RF Rx Instructions: 5 drops per ear at first med pass of shift. Then irrigate ears with NS at next med pass of each shift x 4 days for wax build up. *Start on the 20th of the month, every two months. Ear Wax Removal Drops 6.5 % drops 5 drp otic (ear) Q61D 282 Days Qty: 15 11RF Rx Instructions: 5 drops per ear at first med pass of shift. Then irrigate ears with NS at next med pass of each shift x 4 days for wax build up. *Start on the of the month, every two months. Ear Wax Removal Drops 6.5 % drops 5 drp otic (ear) Q61D 283 Days Qty: 15 11RF Label Comments: 5 drops per ear at first med pass of shift. Then irrigate ears with NS at next med pass of each shift x 4 days for wax build up. Ear Wax Removal Drops 6.5 % drops 5 drp otic (ear) Q61D 283 Days Qty: 15 11RF Rx Instructions: 5 drops per ear at first med pass of shift. Then irrigate ears with NS at next med pass of each shift x 4 days for wax build up. *Start on the of the month, every two months. Ear Wax Removal Drops 6.5 % drops 5 drp otic (ear) Q61D 282 Days Qty: 15 11RF Label Comments: 5 drops per ear at first med pass of shift. Then irrigate ears with NS at next med pass of each shift x 4 days for wax build up. Ear Wax Removal Drops 6.5 % drops 5 drp otic (ear) Q61D 281 Days Qty: 15 11RF Label Comments: 5 drops per ear at first med pass of shift. Then irrigate ears with NS at next med pass of each shift x 4 days for wax build up. No Action magnesium hydroxide [Milk of Magnesia] 400 mg/5 mL suspension 30 ml G-tube PRN PRN (Reason: Constipation) 365 Days Qty: 355 0RF Rx Instructions: CONC: 400MG/5ML Fleet Enema 19-7 gram/118 mL enema 133 ml WA PRN PRN (Reason: No BM Per Bowel Management Protocol) 365 Days Qty: 1 0RF Label Comments: If Dulcolax is ineffective on 3rd day / 7th shift, give Fleets enema per Bowel Management Protocol. Notify MD if no results from Enema. cyanocobalamin (vitamin B-12) 500 mcg tablet 1,000 mcg G-tube QDAY 365 Days Qty: 730 0RF Label Comments: for supplement multivitamin Tablet 1 tab G-tube QDAY 30 Days Qty: 30 0RF Label Comments: for supplement atorvastatin 40 mg tablet 40 mg G-tube HS 365 Days Qty: 365 12RF Label Comments: for hyperlipidemia acetaminophen 325 mg tablet 325 mg G-tube Q6HR PRN (Reason: Pain) 30 Days Qty: 90 0RF ipratropium-albuterol 0.5 mg-3 mg(2.5 mg base)/3 mL solution for nebulization 3 ml INH Q6HRRT 336 Days Qty: 180 0RF polyethylene glycol 3350 17 gram powder in packet 17 g G-tube PRN PRN (Reason: No BM Per Bowel Management Protocol) 30 Days Qty: 12 0RF Label Comments: Administer as needed if 2nd round bowel protocol ineffective. Rx Instructions: Mix with 4oz of water before giving. Hold tube feeding for 30 minutes after administration. Notify provider if no results from Miralax. ondansetron HCl 4 mg tablet 4 mg PO Q6HR PRN (Reason: Nausea Or Vomiting) 365 Days Qty: 120 5RF guaifenesin [Sima-Tussin] 100 mg/5 mL liquid 300 mg G-tube Q6HR PRN (Reason: Cough) 30 Days Qty: 473 0RF Rx Instructions: Conc: 100MG/5ML give 15 ml carvedilol 3.125 mg tablet 3.125 mg G-tube BID 365 Days Qty: 365 0RF Label Comments: for hypertension Rx Instructions: Hold for SBP<110 and or HR<60 bisacodyl [Dulcolax (bisacodyl)] 10 mg suppository 10 mg WA PRN PRN (Reason: No BM Per Bowel Management Protocol) 30 Days Qty: 50 0RF Rx Instructions: Administer as needed on 6th shift, if MOM ineffective. bisacodyl [Dulcolax (bisacodyl)] 10 mg suppository 10 mg WA PRN PRN (Reason: No BM Per Bowel Management Protocol) 365 Days Qty: 12 0RF Rx Instructions: Administer as needed on 6th shift, if MOM ineffective. Fleet Enema 19-7 gram/118 mL enema 133 ml WA PRN PRN (Reason: No BM Per Bowel Management Protocol) 30 Days Qty: 133 4RF Label Comments: If Dulcolax is ineffective on 3rd day / 7th shift, give Fleets enema per Bowel Management Protocol. Notify MD if no results from Enema. Ear Wax Removal Drops 6.5 % drops 5 drp otic (ear) Q61D 281 Days Qty: 15 0RF Label Comments: 5 drops per ear at first med pass of shift. Then irrigate ears with NS at next med pass of each shift x 4 days for wax build up. insulin glargine [Basaglar KwikPen U-100 Insulin] 100 unit/mL (3 mL) insulin pen 30 unit SCi HS Qty: 9 11RF Label Comments: for DM Rx Instructions: Hold for BS <80 dexlansoprazole [Dexilant] 30 mg capsule,biphase delayed releas 30 mg G-tube QDAY Qty: 30 11RF Referrals: No Primary/Family,Physician [Primary Care Provider] Patient/Caregiver Discharge Instructions Other Discharge Activity Instructions:: Please follow-up with primary care physician within 2 or 3 days upon discharge Please repeat a chest x-ray in 4 to 6 weeks to monitor pneumonia. Recommend proper hydration. Please continue taking all home medications as prescribed Please come back to the ED if symptoms persist or worsen. Education Materials: What Is Pneumonia?, Preventing Pneumonia Print Language: Slovenian Stand Alone Forms: Melanie Award Info., Patient Portal Info Letter Discharge Order Discharge Orders: Discharge (Routine); Ordered 06/25/25 Ordered By: Shankar Smiley Quality Discharge Quality Measures none
--- NOTE | 2025-06-25 12:14 | PC.SS ---
Update: Patient to discharge to [facility] today.
--- NOTE | 2025-06-25 12:14 | PC.SS ---
PASSR submitted to [facility] via file exchange.
== END 2025-06-25 13:28 | DRG 130 ==
LOC: SERX 02:45 → SERHOLD 03:41 → S2NX 14:02
PROVIDERS: Internal Medicine Infectious Disease; Student in an Organized Health Care Education/Training Program; Admitting Provider Internal Medicine; Emergency Provider Emergency Medicine; Visit Provider Internal Medicine
DX: J95.851 Ventilator associated pneumonia (principal); J96.22 Acute and chronic respiratory failure with hypercapnia; Z93.1 Gastrostomy status; E11.9 Type 2 diabetes mellitus without complications; I48.91 Unspecified atrial fibrillation; Z93.0 Tracheostomy status; I10 Essential (primary) hypertension; E78.5 Hyperlipidemia, unspecified; N39.0 Urinary tract infection, site not specified; K56.7 Ileus, unspecified; Z66 Do not resuscitate; G82.50 Quadriplegia, unspecified; Y84.8 Other medical procedures as the cause of abnormal reaction of the patient, or of later complication, without mention of misadventure at the time of the procedure; R79.89 Other specified abnormal findings of blood chemistry; E87.0 Hyperosmolality and hypernatremia; E87.1 Hypo-osmolality and hyponatremia; E87.29 Other acidosis; J69.0 Pneumonitis due to inhalation of food and vomit; J15.1 Pneumonia due to Pseudomonas; J96.21 Acute and chronic respiratory failure with hypoxia; K56.41 Fecal impaction; Z79.4 Long term (current) use of insulin; Z79.899 Other long term (current) drug therapy; B95.7 Other staphylococcus as the cause of diseases classified elsewhere; B96.89 Other specified bacterial agents as the cause of diseases classified elsewhere; B96.4 Proteus (mirabilis) (morganii) as the cause of diseases classified elsewhere; Z16.24 Resistance to multiple antibiotics
CPT/HCPCS: 36415; 36600; 71045; 71250; 74018; 74176; 80053; 80202; 81001; 82248; 82803; 83036; 83605; 83690; 83735; 83880; 84100; 84145; 84295; 84443; 84484; 85025; 85379; 85652; 86140; 86331; 86635; 86803; 87040; 87077; 87081; 87086; 87186; 87205; 87502; 87634; 87811; 93005; 93306; 93970; 94003; 94640; 96361; 96365; 96366; 96375; 99285; A9270; J0131; J0692; J1815; J2405; J2543; J2919; J3373; J3475; J7030; J7050; J7120; J7999